=== PATIENT | male | born 1960 | race Caucasian/White ===

== ENCOUNTER 2020-04-10 09:31 | Outpatient (REF) | payer MEDICARE, MEDICAID, SELFPAY ==
--- NOTE | 2020-04-10 09:40 | XR_ITS ---
EXAMINATION: XR CHEST XR THORACIC SPINE CLINICAL INFORMATION: Abnormalities of breathing. Cutaneous abscess. Rule out osteomyelitis. COMPARISON: 11/08/2019 TECHNIQUE: PA and lateral views of the chest. 2 views, 3 images of the thoracic spine. FINDINGS: Chest: The lungs are hyperexpanded. Small left pleural effusion. Streaky basilar opacities favor atelectasis. No dense consolidation. No pneumothorax. The cardiomediastinal silhouette remains prominent, with a calcified aorta. Mild degenerative changes of the spine. Thoracic spine: No fracture or subluxation. Vertebral body height and alignment is maintained. Disc spaces are maintained with small multilevel endplate osteophytes. No osseous erosions are seen no endplate changes. IMPRESSION: 1. Small left pleural effusion. Basilar atelectasis. 2. Mild degenerative changes of the spine. No erosive changes are seen.
== END 2020-04-10 09:32 | disposition home or self-care (01) ==
LOC: HO.HMGCX 09:31
PROVIDERS: PCP Nurse Practitioner Family; Visit Provider Nurse Practitioner Family
DX: Z13.89 Encounter for screening for other disorder (principal)
CPT/HCPCS: 71046; 72070; 87071; 87205

== ENCOUNTER 2020-04-10 10:49 | Emergency (ER) | payer MEDICARE, MEDICAID, SELFPAY ==
[2020-04-10 12:30] VITALS: BP 180/102; PULSE 92; RESP 20; TEMP 36.8; O2SAT 96; BMI 39.0
--- NOTE | 2020-04-10 13:22 | ED_ITS ---
HPI - General Adult General Chief complaint: General Medical Stated complaint: SOB Time Seen by Provider: 04/10/20 13:22 Source: patient Mode of arrival: ambulatory Limitations: no limitations History of Present Illness HPI narrative: Mr. Esteban Galindo is a 60-year-old male with past medical history that is significant for hypertension, obstructive sleep apnea on CPAP at night, gout, depression and history of alcohol abuse with prior admissions here to this facility for alcohol intoxication/ withdrawal with history that is somewhat limited as he is relatively bad historian presenting today with constellation of symptoms from sister in urgent care. He reports that for the past month or so he has some upper respiratory symptoms of rhinorrhea and congestion that has led him to have a hard time breathing States he sometimes can not feel like he can not take a deep breath in and has had a productive cough. In addition to this he reports to me that he has a tender area on his lower back that he has had for month or so which he injured question during the fall he is intoxicated. States that the overall size of this indurated area on his lower back has decreased according to his however now is having more pain and purulent discharge. There is no associated fever. No travel. He has no known sick contacts. He does admit to daily beer intake and in fact had a few beers this morning to help with the pain in his lower back. He does not endorse any recent falls or injury. Related Data Home Medications Medication Instructions Recorded Confirmed allopurinol 100 mg tablet 100 mg PO DAILY 04/10/20 atenolol 50 mg tablet 50 mg PO DAILY 04/10/20 duloxetine 60 mg capsule,delayed 60 mg PO DAILY 04/10/20 release fluoxetine 40 mg capsule mg PO 04/10/20 lisinopril 5 mg tablet 5 mg PO DAILY 04/10/20 naproxen 500 mg tablet 500 mg PO BID 04/10/20 Previous Rx's Medication Instructions Recorded albuterol sulfate 2 puff INHALATION Q4-6H PRN #18 g 04/10/20 doxycycline monohydrate 100 mg PO BID 10 Days #20 cap 04/10/20 Allergies Allergy/AdvReac Type Severity Reaction Status Date / Time No Known Allergies Allergy Unverified 03/13/20 14:43 [No Known Allergies*] Review of Systems Review of Systems: Constitutional: No Weight loss, No Fever, + Chills, No Night Sweats, No Fatigue, No Malaise ENT/Mouth: No Hearing loss, No Ear Pain, + Nasal Congestion, No Sinus Pain, No Hoarseness, No sore throat, No Rhinorrhea, No Swallowing Difficulty Eyes: No Eye Pain, No Swelling, No Redness, No Foreign Body, No Discharge, No Vision Changes Cardiovascular: + Chest Pain,+ Dyspnea on Exertion, No Orthopnea, No Edema, No Palpitations Respiratory: sometimes Cough, No Sputum, No Wheezing, No Smoke Exposure, No Dys pnea Gastrointestinal: No Nausea, No Vomiting, No Diarrhea, No Constipation, No abdominal Pain, No Hematochezia, No Melena Genitourinary: no irregular bleeding, No Dysuria, No Urinary Frequency, No H ematuria, No Urinary Incontinence, No Urgency, No Flank Pain, No Urinary Flow Changes, No Hesitancy Musculoskeletal: No joint pain, No Myalgias, No Joint Swelling Skin: No Skin Lesions, + tender area to Lumbar spine Neuro: No Weakness, No Numbness, No Paresthesias, No Loss of Consciousness, No Dizziness, No Headache Psych: No Anxiety/Panic, No Depression, No SI/HI/AH/VH, No Social Issues, Heme/Lymph: No Bruising, No Bleeding,No Lymphadenopathy Endocrine: No Polyuria, No Polydipsia, No Temperature Intolerance [facility] Past Medical History Attestation statement: The following information was validated with the patient. Medical History (Updated 04/11/20 @ 00:01 by Stephanie Mart) Alcohol dependency Anxiety Arthritis Depression Gout HTN (hypertension) Seroma due to trauma Sleep apnea Social History Social History (Updated 04/10/20 @ 17:54 by Ross Lr MD) Packs Per Day: 1 Cigarettes Per Day: 20.0 Physical Exam Vital Signs: Vital Signs: Vital Signs Temp Pulse Resp BP Pulse Ox 04/10/20 12:30 98.3 F 92 20 180/102 H 96 Body Mass Index 39.0 Reviewed Const: Other: obese and shuffled appearing, older than stated age General: cooperative; No acute distress or intoxicated appearing Orientation/consciousness: patient oriented x3 HENMT: Head: Yes normal to inspection Ears: hearing grossly normal bilaterally Eyes: General: appearance normal, both eyes and all related structures Visual Montgomery: normal visual montgomery by confrontation Neck: Neck: Yes normal visual inspection and No tender Thyroid: Thyroid normal Chest: Chest palpation & inspection: normal inspection of the chest Resp: Effort & Inspection: normal respiratory effort Auscultation: clear to auscultation bilaterally and no wheezes Cardio: Jugular venous distension: no JVD Rhythm: regular rhythm Heart sounds: S1 normal heart sound present GI: Inspection: Yes normal to inspection Percussion: Yes normal to percussion Auscultation: normal bowel sounds : General: Yes no CVA tenderness Back/Spine/Pelvis: Back: no CVA tenderness Back/spine/pelvis image: 1. tender /indurated area refer to picture Skin: General skin exam: no rashes or lesions noted Neuro: General: patient oriented x3 Extrem: General: Yes normal to inspection Psych: Appearance: disheveled Mental Status: mental status grossly normal Speech and movement: Normal speech and movement present Affect: normal affect Attitude: cooperative Thought process: Normal thought process present Thought content: Normal thought content present Insight: Good insight present (Psych) Judgement: Good judgement present (Psych) Course Course Course Narrative: medical records reviewed patient had several ED visits for alcohol related stuff including alcohol withdrawal most recently in October where he was seen for alcohol withdrawal and subsequently Section 35. he was also seen here 03/15/2020 for ETOH/fall in time he had a small injury/indurated area to the lower /lumbar spine back where he had a CT of the abdomen pelvis with IV contrast which showed; 1. Reversal of previously anjum cribed fatty infiltrate of the liver. 2. Gallbladder wall polyp. 3. Trace left pleural effusion with lobulated pleural based nodule as described, left lower lobe. Adjacent reactive changes in the left lower lobe. 4. Subcutaneous low- attenuation mass in the lumbar back presumably a hematoma given the patient's history of trauma. will need labs , EKG patient was seen at the walk-in clinic had x-ray of chest and thoracic spine which showed small left pleural effusion. basilar atelectas is. And degenerative changes of the spine no erosive changes seen on the plain film. will need advanced imaging with IV contrast and given his prior hospital visits concern does rest for COVID-19 will do a COVID-19 test. at this time he is hemodynamically stable. No signs or symptoms of alcohol withdrawal. Reevaluation(s) Reevaluation #1: Labs show significant derangement. Elevated BNP. CT findings concerning for COVID-19 versus atelectasis versus infectious process. Case discussed with hospitalist Dr. Canchola at bedside to evaluate patient for admission. Reevaluation #2: Patient now declining admission. States he feels fine and wants to go home to his son who has autism and feels that would have a hard time if he is admitted. Does not want to stay in the hospital. Given the significant findings on labs and imaging I sat down with him for about 20 minutes to discuss with him the findings and the need for further investigation into this and the importance /seriousness of his findings and possibility of worsening deterioration if he goes home. He verbalized understanding. He still wants to be discharge on AMA. He states that he will return if he feels any worse or concerns. AMA was reviewed with him in detail he verbalized understanding. Consultations Consultation #1: Evaluated by general surgery Dr. Queen at bedside for above indurated area and CT findings consistent with previous. Refer to general surgery note; seroma drained at bedside. This scab on top is from a abrasion that occurred from a fall. Otherwise no acute infection. Medical Decision Making Lab Data Result diagrams: 04/10/20 16:53 04/10/20 13:44 Labs: Lab Results 04/10/20 04/10/20 04/10/20 Range/Units 13:44 13:44 13:44 WBC (4.8-10.8) X10*3/uL RBC (4.60-5.80) X10*6/uL Hgb (14.0-18.0) g/dl Hct (42-52) % MCV (80-98) fL MCH (27.0-33.0) pg MCHC (31.0-36.0) g/dl RDW (11.0-16.0) % Plt Count (160-400) X10*3/uL MPV (9.4-12.4) fL Immature Gran % (Auto) (0.0-0.4) % Neut % (Auto) (45-73) % Lymph % (Auto) (20-40) % [place] % (Auto) (2-11) % Eos % (Auto) (0-4) % Baso % (Auto) (0-2) % Lymph # (Auto) (1.2-4.9) X10*3/uL [place] # (Auto) (0.1-1.2) X10*3/uL Eos # (Auto) (0.0-0.4) X10*3/uL Baso # (Auto) (0.0-0.2) X10*3/uL Abs Immat Gran (auto) (0.00-0.03) X10*3/uL Absolute Neuts (auto) (2.0-8.3) X10*3/uL Absolute Nucleated RBC (0.0-0.012) X10*3/uL Nucleated RBC % (auto) (0.0-0.2) /100WBC Sodium 136 (135-145) mmol/L Potassium 4.2 (3.3-5.1) mmol/l Chloride 96 (96-108) mmol/L Carbon Dioxide 35 H (22-29) mmol/L Anion Gap 9 L (12-20) BUN 12 (9-16) mg/dL Creatinine 0.85 (0.5-1.4) mg/dL Estim Creat Clear Calc 134.5 Estimated GFR > 60 Random Glucose 103 (60-115) mg/dL Lactic Acid 1.0 (0.5-2.0) mmol/L Calcium 8.7 (8.4-10.2) mg/dL Ferritin (20-250) ng/mL Total Bilirubin 1.1 H (0.0-1.0) mg/dL AST 19 (5-37) U/L ALT 7 (0-40) U/L Alkaline Phosphatase 107 (39-117) U/L Lactate Dehydrogenase (118-273) U/L Troponin I High Sens 14.9 (<3.5-35.0) ng/L C-Reactive Protein (< or = 0.50) mg/dL B-Natriuretic Peptide (<100) pg/mL Total Protein 6.8 (6.5-8.0) g/dL Albumin 3.4 L (3.5-5.0) g/dL Procalcitonin ng/mL Ethyl Alcohol mg/dL Coronavirus (PCR) (Negative) 04/10/20 04/10/20 04/10/20 Range/Units 13:44 13:44 16:53 WBC 9.5 (4.8-10.8) X10*3/uL RBC 2.73 L (4.60-5.80) X10*6/uL Hgb 10.4 L (14.0-18.0) g/dl Hct 29.9 L (42-52) % MCV 109.5 H (80-98) fL MCH 38.1 H (27.0-33.0) pg MCHC 34.8 (31.0-36.0) g/dl RDW 19.1 H (11.0-16.0) % Plt Count 206 (160-400) X10*3/uL MPV 10.3 (9.4-12.4) fL Immature Gran % (Auto) 0.4 (0.0-0.4) % Neut % (Auto) 64.0 (45-73) % Lymph % (Auto) 25.5 (20-40) % [place] % (Auto) 7.7 (2-11) % Eos % (Auto) 1.9 (0-4) % Baso % (Auto) 0.5 (0-2) % Lymph # (Auto) 2.4 (1.2-4.9) X10*3/uL [place] # (Auto) 0.7 (0.1-1.2) X10*3/uL Eos # (Auto) 0.2 (0.0-0.4) X10*3/uL Baso # (Auto) 0.1 (0.0-0.2) X10*3/uL Abs Immat Gran (auto) 0.04 H (0.00-0.03) X10*3/uL Absolute Neuts (auto) 6.1 (2.0-8.3) X10*3/uL Absolute Nucleated RBC 0.000 (0.0-0.012) X10*3/uL Nucleated RBC % (auto) 0.0 (0.0-0.2) /100WBC Sodium (135-145) mmol/L Potassium (3.3-5.1) mmol/l Chloride (96-108) mmol/L Carbon Dioxide (22-29) mmol/L Anion Gap (12-20) BUN (9-16) mg/dL Creatinine (0.5-1.4) mg/dL Estim Creat Clear Calc Estimated GFR Random Glucose (60-115) mg/dL Lactic Acid (0.5-2.0) mmol/L Calcium (8.4-10.2) mg/dL Ferritin (20-250) ng/mL Total Bilirubin (0.0-1.0) mg/dL AST (5-37) U/L ALT (0-40) U/L Alkaline Phosphatase (39-117) U/L Lactate Dehydrogenase (118-273) U/L Troponin I High Sens (<3.5-35.0) ng/L C-Reactive Protein 1.83 H (< or = 0.50) mg/dL B-Natriuretic Peptide 3062 H (<100) pg/mL Total Protein (6.5-8.0) g/dL Albumin (3.5-5.0) g/dL Procalcitonin ng/mL Ethyl Alcohol mg/dL Coronavirus (PCR) (Negative) 04/10/20 04/10/20 04/10/20 Range/Units 17:00 17:01 Unknown WBC (4.8-10.8) X10*3/uL RBC (4.60-5.80) X10*6/uL Hgb (14.0-18.0) g/dl Hct (42-52) % MCV (80-98) fL MCH (27.0-33.0) pg MCHC (31.0-36.0) g/dl RDW (11.0-16.0) % Plt Count (160-400) X10*3/uL MPV (9.4-12.4) fL Immature Gran % (Auto) (0.0-0.4) % Neut % (Auto) (45-73) % Lymph % (Auto) (20-40) % [place] % (Auto) (2-11) % Eos % (Auto) (0-4) % Baso % (Auto) (0-2) % Lymph # (Auto) (1.2-4.9) X10*3/uL [place] # (Auto) (0.1-1.2) X10*3/uL Eos # (Auto) (0.0-0.4) X10*3/uL Baso # (Auto) (0.0-0.2) X10*3/uL Abs Immat Gran (auto) (0.00-0.03) X10*3/uL Absolute Neuts (auto) (2.0-8.3) X10*3/uL Absolute Nucleated RBC (0.0-0.012) X10*3/uL Nucleated RBC % (auto) (0.0-0.2) /100WBC Sodium (135-145) mmol/L Potassium (3.3-5.1) mmol/l Chloride (96-108) mmol/L Carbon Dioxide (22-29) mmol/L Anion Gap (12-20) BUN (9-16) mg/dL Creatinine (0.5-1.4) mg/dL Estim Creat Clear Calc Estimated GFR Random Glucose (60-115) mg/dL Lactic Acid (0.5-2.0) mmol/L Calcium (8.4-10.2) mg/dL Ferritin 272 H (20-250) ng/mL Total Bilirubin (0.0-1.0) mg/dL AST (5-37) U/L ALT (0-40) U/L Alkaline Phosphatase (39-117) U/L Lactate Dehydrogenase (118-273) U/L Troponin I High Sens (<3.5-35.0) ng/L C-Reactive Protein (< or = 0.50) mg/dL B-Natriuretic Peptide (<100) pg/mL Total Protein (6.5-8.0) g/dL Albumin (3.5-5.0) g/dL Procalcitonin ng/mL Ethyl Alcohol < 10 mg/dL Coronavirus (PCR) NEGATIVE (Negative) 04/10/20 04/10/20 Range/Units Unknown Unknown WBC (4.8-10.8) X10*3/uL RBC (4.60-5.80) X10*6/uL Hgb (14.0-18.0) g/dl Hct (42-52) % MCV (80-98) fL MCH (27.0-33.0) pg MCHC (31.0-36.0) g/dl RDW (11.0-16.0) % Plt Count (160-400) X10*3/uL MPV (9.4-12.4) fL Immature Gran % (Auto) (0.0-0.4) % Neut % (Auto) (45-73) % Lymph % (Auto) (20-40) % [place] % (Auto) (2-11) % Eos % (Auto) (0-4) % Baso % (Auto) (0-2) % Lymph # (Auto) (1.2-4.9) X10*3/uL [place] # (Auto) (0.1-1.2) X10*3/uL Eos # (Auto) (0.0-0.4) X10*3/uL Baso # (Auto) (0.0-0.2) X10*3/uL Abs Immat Gran (auto) (0.00-0.03) X10*3/uL Absolute Neuts (auto) (2.0-8.3) X10*3/uL Absolute Nucleated RBC (0.0-0.012) X10*3/uL Nucleated RBC % (auto) (0.0-0.2) /100WBC Sodium (135-145) mmol/L Potassium (3.3-5.1) mmol/l Chloride (96-108) mmol/L Carbon Dioxide (22-29) mmol/L Anion Gap (12-20) BUN (9-16) mg/dL Creatinine (0.5-1.4) mg/dL Estim Creat Clear Calc Estimated GFR Random Glucose (60-115) mg/dL Lactic Acid (0.5-2.0) mmol/L Calcium (8.4-10.2) mg/dL Ferritin (20-250) ng/mL Total Bilirubin (0.0-1.0) mg/dL AST (5-37) U/L ALT (0-40) U/L Alkaline Phosphatase (39-117) U/L Lactate Dehydrogenase 439 H (118-273) U/L Troponin I High Sens (<3.5-35.0) ng/L C-Reactive Protein (< or = 0.50) mg/dL B-Natriuretic Peptide (<100) pg/mL Total Protein (6.5-8.0) g/dL Albumin (3.5-5.0) g/dL Procalcitonin 0.04 ng/mL Ethyl Alcohol mg/dL Coronavirus (PCR) (Negative) Imaging Data CT scan - head: My impression: Esteban Galindo 60 M [address] [address] [address] Scan Report Signed Patient: Esteban Galindo FMR#: [id number] : 1Acct:[id number] Age/Sex: 60 / MADM Date: 04/10/20 Loc: HO.ED Attending Dr: Ordering Physician: Lex Lacy NP Date of Service: 04/10/20 Procedure(s): CT lumbar spine w con Accession Number(s): [id number] cc: Lex Lacy NP~ EXAMINATION: CT LUMBAR SPINE CLINICAL INFORMATION: Lumbar spine pain. COMPARISON: 03/15/2020 TECHNIQUE: Multidetector volumetric imaging of the lumbar spine performed after administration of 85 mL of Omnipaque 350 IV contrast. Coronal and sagittal reformatted images are obtained and reviewed. This CT examination was performed using dose optimization techniques as appropriate, variously including the following: *Automated exposure control *Adjustment of mA and/or kV according to patient size (this includes techniques or standardized protocols for targeted exams where dose is matched to indication/reason for exam; i.e. extremities or head) *Use of iterative reconstruction technique DLP: 846 mGy-cm FINDINGS: There is no fracture or subluxation. Vertebral body height and alignment is maintained. Disc space narrowing of L1-L2 with vacuum disc phenomenon. Multilevel endplate osteophytes are present. There is facet arthropathy throughout which is greatest at L4-L5. Small Schmorl's nodes are present at multiple level endplates. The sacroiliac joints are symmetric. The visualized portion of the sacrum is intact. The paraspinal musculature is symmetric. Aortic calcifications are noted. Fat attenuation lesion at the upper pole of the right kidney likely represents an angiomyolipoma. No retroperitoneal lymphadenopathy. There is a superficial collection in the subcutaneous tissues of the back to the left of midline. This collection measures 8.2 x 3.1 cm in transaxial dimension by 6.7 cm CC. This measures simple fluid attenuation. Mild inflammation in the surrounding fat. Mild overlying skin thickening. This collection was present on the study from 03/15/2020, appearing similar in size. IMPRESSION: 1. Fluid collection in the subcutaneous tissues to the left of midline in the back. This has similar size and appearance to the prior study. 2. Mild multilevel degenerative changes of the lumbar spine. Dictated By:LAKEISHA RESENDIZ MD Signed By:<Electronically signed by LAKEISHA RESENDIZ MD in OV>04/10/20 1613 DD/ 1332 TD/TT: Automatic Pattern Edger: TESSIE Radiologist's impression: [facility] [address] [place] [address] CT Scan Report Signed Patient: Esteban Galindo FMR#: [id number] : 1960cct:[id number] Age/Sex: 60 / MADM Date: 04/10/20 Loc: HO.ED Attending Dr: Ordering Physician: Lex Lacy NP Date of Service: 04/10/20 Procedure(s): CT chest wo con Accession Number(s): [id number] cc: Lex Lacy ENGRAVER TENDER~ EXAMINATION: CT CHEST WITHOUT CONTRAST CLINICAL INFORMATION: Shortness of breath COMPARISON: 04/04/2019 TECHNIQUE: Multidetector volumetric CT imaging of the chest was done. Axial MIP volume rendering provided. Sagittal and coronal reformatted images were obtained. This CT examination was performed using dose optimization techniques as appropriate, variously including the following: *Automated exposure control *Adjustment of mA and/or kV according to patient size (this includes techniques or standardized protocols for targeted exams where dose is matched to indication/reason for exam; i.e. extremities or head) *Use of iterative reconstruction technique DLP: 405 mGy-cm FINDINGS: LUNGS: The central airways are patent. Mild bronchial wall thickening. Small bilateral pleural effusions. Moderate paraseptal emphysema which is greatest at the lung apices. Minimal groundglass opacity dependently in the right upper lobe along the major fissure. Additional dependent groundglass opacities and linear markings at both lung bases. Fluid tracks along the left major fissure. Radiographic groundglass opacity seen at the right lung apex measuring 1.5 cm. This is new from prior, with multiple prior groundglass opacities now resolved. No solid pulmonary nodule. No pneumothorax. MEDIASTINUM: Borderline enlarged heart size. Coronary artery calcifications. No pericardial effusion. No mediastinal lymphadenopathy. The thyroid gland is unremarkable. AXILLA: No lymphadenopathy. UPPER ABDOMEN: The liver appears enlarged. No acute inflammatory changes of the upper abdomen. OSSEOUS STRUCTURES: No acute or suspicious osseous abnormality. Mild degenerative changes of the spine. IMPRESSION: 1. Small bilateral pleural effusions with associated atelectasis. Small amount of fluid tracks along the left major fissure. Additional groundglass opacity dependently in the right upper lobe likely represents atelectasis, although infectious/inflammatory process is not fully excluded. 2. Moderate paraseptal emphysema. 3. Focal groundglass opacity at the right lung apex favors infectious or inflammatory process. This is new from the prior study from 2019, while previous groundglass opacities have resolved. Dictated By:LAKEISHA RESENDIZ MD Signed By:<Electronically signed by LAKEISHA RESENDIZ MD in OV>04/10/20 1618 DD/ 1333 TD/TT: Automatic Pattern Edger: TESSIE Discharge Plan Discharge Clinical Impression: Atypical pneumonia, Difficulty breathing, Seroma, Elevated brain natriuretic peptide (BNP) level Patient Disposition: Left Against Medical Advice Instructions: Community Acquired Pneumonia (ED), Seroma (DC), Shortness of Breath (ED) Prescriptions: New doxycycline monohydrate 100 mg capsule 100 mg PO BID 10 Days Qty: 20 RF: 0 albuterol sulfate 90 mcg/actuation HFA aerosol inhaler 2 puff inhalation Q4-6H PRN (Reason: shortness of breath or wheezing) Qty: 18 RF: 0 No Action duloxetine 60 mg capsule,delayed release(DR/EC) 60 mg PO DAILY RF: 0 lisinopril 5 mg tablet 5 mg PO DAILY RF: 0 fluoxetine 40 mg capsule PO RF: 0 naproxen 500 mg tablet 500 mg PO BID RF: 0 atenolol 50 mg tablet 50 mg PO DAILY RF: 0 allopurinol 100 mg tablet 100 mg PO DAILY RF: 0 Referrals: Ortiz Deluca, FAMILY MEDICINE PHYSICIAN-BC [Primary Care Provider] - 1 day Stand Alone Forms: Against Medical Advice Interventions: ED Discharge Assessment Last Done: 04/10/20 19:13 Discharge Date/Time: 04/10/20 19:14
--- NOTE | 2020-04-10 13:32 | CT_ITS ---
EXAMINATION: CT LUMBAR SPINE CLINICAL INFORMATION: Lumbar spine pain. COMPARISON: 03/15/2020 TECHNIQUE: Multidetector volumetric imaging of the lumbar spine performed after administration of 85 mL of Omnipaque 350 IV contrast. Coronal and sagittal reformatted images are obtained and reviewed. This CT examination was performed using dose optimization techniques as appropriate, variously including the following: *Automated exposure control *Adjustment of mA and/or kV according to patient size (this includes techniques or standardized protocols for targeted exams where dose is matched to indication/reason for exam; i.e. extremities or head) *Use of iterative reconstruction technique DLP: 846 mGy-cm FINDINGS: There is no fracture or subluxation. Vertebral body height and alignment is maintained. Disc space narrowing of L1-L2 with vacuum disc phenomenon. Multilevel endplate osteophytes are present. There is facet arthropathy throughout which is greatest at L4-L5. Small Schmorl's nodes are present at multiple level endplates. The sacroiliac joints are symmetric. The visualized portion of the sacrum is intact. The paraspinal musculature is symmetric. Aortic calcifications are noted. Fat attenuation lesion at the upper pole of the right kidney likely represents an angiomyolipoma. No retroperitoneal lymphadenopathy. There is a superficial collection in the subcutaneous tissues of the back to the left of midline. This collection measures 8.2 x 3.1 cm in transaxial dimension by 6.7 cm CC. This measures simple fluid attenuation. Mild inflammation in the surrounding fat. Mild overlying skin thickening. This collection was present on the study from 03/15/2020, appearing similar in size. IMPRESSION: 1. Fluid collection in the subcutaneous tissues to the left of midline in the back. This has similar size and appearance to the prior study. 2. Mild multilevel degenerative changes of the lumbar spine.
--- NOTE | 2020-04-10 13:33 | CT_ITS ---
EXAMINATION: CT CHEST WITHOUT CONTRAST CLINICAL INFORMATION: Shortness of breath COMPARISON: 04/04/2019 TECHNIQUE: Multidetector volumetric CT imaging of the chest was done. Axial MIP volume rendering provided. Sagittal and coronal reformatted images were obtained. This CT examination was performed using dose optimization techniques as appropriate, variously including the following: *Automated exposure control *Adjustment of mA and/or kV according to patient size (this includes techniques or standardized protocols for targeted exams where dose is matched to indication/reason for exam; i.e. extremities or head) *Use of iterative reconstruction technique DLP: 405 mGy-cm FINDINGS: LUNGS: The central airways are patent. Mild bronchial wall thickening. Small bilateral pleural effusions. Moderate paraseptal emphysema which is greatest at the lung apices. Minimal groundglass opacity dependently in the right upper lobe along the major fissure. Additional dependent groundglass opacities and linear markings at both lung bases. Fluid tracks along the left major fissure. Radiographic groundglass opacity seen at the right lung apex measuring 1.5 cm. This is new from prior, with multiple prior groundglass opacities now resolved. No solid pulmonary nodule. No pneumothorax. MEDIASTINUM: Borderline enlarged heart size. Coronary artery calcifications. No pericardial effusion. No mediastinal lymphadenopathy. The thyroid gland is unremarkable. AXILLA: No lymphadenopathy. UPPER ABDOMEN: The liver appears enlarged. No acute inflammatory changes of the upper abdomen. OSSEOUS STRUCTURES: No acute or suspicious osseous abnormality. Mild degenerative changes of the spine. IMPRESSION: 1. Small bilateral pleural effusions with associated atelectasis. Small amount of fluid tracks along the left major fissure. Additional groundglass opacity dependently in the right upper lobe likely represents atelectasis, although infectious/inflammatory process is not fully excluded. 2. Moderate paraseptal emphysema. 3. Focal groundglass opacity at the right lung apex favors infectious or inflammatory process. This is new from the prior study from 2019, while previous groundglass opacities have resolved.
[2020-04-10] MEDS: 0.9 % Sodium Chloride 1,000 ML 999 ML IVCONT (14:01)
[2020-04-10 14:22] LABS: C Reactive Protein 1.83 mg/dL (< or = 0.50)
[2020-04-10 14:27] LABS: Alanine Aminotransferase 7 U/L (0-40); Albumin Level 3.4 g/dL (3.5-5.0); Alkaline Phosphatase 107 U/L (39-117); Anion Gap 9 (12-20); Aspartate Amino Transferase 19 U/L (5-37); Bilirubin Total 1.1 mg/dL (0.0-1.0); Blood Urea Nitrogen 12 mg/dL (9-16); Calcium 8.7 mg/dL (8.4-10.2); Carbon Dioxide 35 mmol/L (22-29); Chloride 96 mmol/L (96-108); Creatinine Clr Calc Pharmacy 134.5; Estimated Glomerular Filt Rate > 60; Glucose Random 103 mg/dL (60-115); Potassium 4.2 mmol/l (3.3-5.1); Sodium 136 mmol/L (135-145); Total Protein 6.8 g/dL (6.5-8.0)
[2020-04-10 14:33] LABS: B Type Natriuretic Peptide 3062 pg/mL (<100); Troponin-I High Sensitivity 14.9 ng/L (<3.5-35.0)
[2020-04-10] MEDS: iohexoL 350 MG/ML 100 ML INFUS..BTL IV (16:04)
--- NOTE | 2020-04-10 16:40 | PC.NURSE ---
pt ambulated to and from bathroom w steady gait on 2l nc using assistive device
[2020-04-10 17:01] LABS: MANUAL DIFF FLAG NO
[2020-04-10 17:02] LABS: Basophils Absolute Auto 0.1 X10*3/uL (0.0-0.2); Basophils Percent Auto 0.5 % (0-2); Eosinophils Absolute Auto 0.2 X10*3/uL (0.0-0.4); Eosinophils Percent Auto 1.9 % (0-4); Hematocrit 29.9 % (42-52); Hemoglobin 10.4 g/dl (14.0-18.0); Imm Gran Abs Auto 0.04 X10*3/uL (0.00-0.03); Imm Gran Pct Auto 0.4 % (0.0-0.4); Lymphocytes Absolute Auto 2.4 X10*3/uL (1.2-4.9); Lymphocytes Percent Auto 25.5 % (20-40); Mean Corpuscular HGB Conc 34.8 g/dl (31.0-36.0); Mean Corpuscular Hemoglobin 38.1 pg (27.0-33.0); Mean Corpuscular Volume 109.5 fL (80-98); Mean Platelet Volume 10.3 fL (9.4-12.4); Monocytes Absolute Auto 0.7 X10*3/uL (0.1-1.2); Monocytes Percent Auto 7.7 % (2-11); Neutrophils Absolute Auto 6.1 X10*3/uL (2.0-8.3); Platelet Count 206 X10*3/uL (160-400); Red Blood Count 2.73 X10*6/uL (4.60-5.80); Red Cell Distribution Width 19.1 % (11.0-16.0); White Blood Count 9.5 X10*3/uL (4.8-10.8)
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
[2020-04-10 17:47] LABS: Ethanol < 10 mg/dL
[2020-04-10 18:06] LABS: SARS COV2 PCR INHOUSE NEGATIVE (Negative)
[2020-04-10 18:25] LABS: Lactate Dehydrogenase 439 U/L (118-273)
[2020-04-10 18:37] LABS: Ferritin 272 ng/mL (20-250)
[2020-04-10 18:41] LABS: Procalcitonin 0.04 ng/mL
== END 2020-04-10 19:14 | disposition left against medical advice (07) ==
PROVIDERS: Nurse Practitioner Primary Care; Emergency Provider Emergency Medicine; PCP Nurse Practitioner Family
DX: J18.9 Pneumonia, unspecified organism (principal); J90 Pleural effusion, not elsewhere classified; J98.11 Atelectasis; Z20.828 Contact with and (suspected) exposure to other viral communicable diseases; T79.2XXA Traumatic secondary and recurrent hemorrhage and seroma, initial encounter; X58.XXXA Exposure to other specified factors, initial encounter; I11.9 Hypertensive heart disease without heart failure; K82.4 Cholesterolosis of gallbladder; R79.89 Other specified abnormal findings of blood chemistry; S30.810A Abrasion of lower back and pelvis, initial encounter; W19.XXXA Unspecified fall, initial encounter; F10.20 Alcohol dependence, uncomplicated; G47.33 Obstructive sleep apnea (adult) (pediatric); Y93.9 Activity, unspecified; Y92.9 Unspecified place or not applicable; Y99.9 Unspecified external cause status
CPT/HCPCS: 10021; 36415; 71046; 71250; 72070; 72132; 80053; 80320; 82728; 83605; 83615; 83880; 84145; 84484; 85025; 86140; 87040; 87071; 87077; 87147; 87186; 87205; 87635; 96361; 96365; 99283; 99284

== ENCOUNTER 2020-05-29 17:06 | Inpatient (IN) | payer MEDICARE, MEDICAID, SELFPAY ==
[2020-05-29 17:10] VITALS: BP 170/92; PULSE 110; RESP 20; TEMP 37; O2SAT 100; BMI 49.5
[2020-05-29 20:42] VITALS: BP 167/100; PULSE 121; RESP 16; O2SAT 96
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
[2020-05-29 21:41] LABS: MANUAL DIFF FLAG NO
[2020-05-29 21:42] LABS: Basophils Absolute Auto 0.1 X10*3/uL (0.0-0.2); Basophils Percent Auto 0.8 % (0-2); Eosinophils Absolute Auto 0.1 X10*3/uL (0.0-0.4); Eosinophils Percent Auto 0.6 % (0-4); Hematocrit 41.8 % (42-52); Hemoglobin 13.9 g/dl (14.0-18.0); Imm Gran Abs Auto 0.04 X10*3/uL (0.00-0.03); Imm Gran Pct Auto 0.4 % (0.0-0.4); Lymphocytes Absolute Auto 2.2 X10*3/uL (1.2-4.9); Lymphocytes Percent Auto 23.5 % (20-40); Mean Corpuscular HGB Conc 33.3 g/dl (31.0-36.0); Mean Corpuscular Hemoglobin 36.4 pg (27.0-33.0); Mean Corpuscular Volume 109.4 fL (80-98); Mean Platelet Volume 11.2 fL (9.4-12.4); Monocytes Absolute Auto 0.9 X10*3/uL (0.1-1.2); Monocytes Percent Auto 9.3 % (2-11); Neutrophils Absolute Auto 6.1 X10*3/uL (2.0-8.3); Neutrophils Percent Auto 65.4 % (45-73); Platelet Count 154 X10*3/uL (160-400); Red Blood Count 3.82 X10*6/uL (4.60-5.80); Red Cell Distribution Width 12.6 % (11.0-16.0); White Blood Count 9.3 X10*3/uL (4.8-10.8)
[2020-05-29 21:57] LABS: COVID-19 Test Negative (Negative); IDNOW Serial# 9DD0AD1C
[2020-05-29 22:01] LABS: Ethanol < 10 mg/dL
[2020-05-29 22:03] LABS: Alanine Aminotransferase 11 U/L (0-40); Albumin Level 3.4 g/dL (3.5-5.0); Alkaline Phosphatase 115 U/L (39-117); Anion Gap 14 (12-20); Aspartate Amino Transferase 29 U/L (5-37); Bilirubin Total 1.2 mg/dL (0.0-1.0); Blood Urea Nitrogen 12 mg/dL (9-16); Calcium 8.6 mg/dL (8.4-10.2); Carbon Dioxide 36 mmol/L (22-29); Chloride 94 mmol/L (96-108); Creatinine Clr Calc Pharmacy 139.4; Estimated Glomerular Filt Rate > 60; Glucose Random 119 mg/dL (60-115); Potassium 4.1 mmol/l (3.3-5.1); Sodium 140 mmol/L (135-145); Total Protein 7.2 g/dL (6.5-8.0)
[2020-05-29] MEDS: LORazepam 1 MG TABLET 2 MG PO (22:05)
[2020-05-29 22:28] LABS: Vitamin B12 248 pg/mL (200-900)
[2020-05-29 22:32] LABS: Amphetamine Screen Urine Not Detected (Not Detect); Barbiturates, Urine Not Detected (Not Detect); Benzodiazepines Screen Urine Not Detected (Not Detect); Cannabinoid Screen Urine Not Detected (Not Detect); Cocaine Screen Urine Not Detected (Not Detect); Opiate Screen Urine Not Detected (Not Detect); Phencyclidine Screen Urine Not Detected (Not Detect)
[2020-05-29 22:54] VITALS: BP 189/125; PULSE 129; RESP 16; TEMP 36.8; O2SAT 95
[2020-05-29 23:25] VITALS: BMI 46.6
[2020-05-29] MEDS: PHENobarbitaL sodium 130 MG/ML VIAL 375 MG IM (23:42)
[2020-05-30] VITALS (12 sets, daily range): BP systolic 127–192; BP diastolic 84–142; PULSE 98–142; RESP 12–20; TEMP 36.6–37; O2SAT 92–98; BMI 46.6
--- NOTE | 2020-05-30 00:36 | P.HPHOSP_ITS ---
History of Present Illness Date of Service: 05/30/20 Chief Complaint: Alcohol withdrawal 60 y/o male with PMHx of depression, alcohol abuse, gout, HTN, lung cancer, sleep apnea who presented from home due to alcohol intoxication. Patient is a very poor historian. Reports that since tuesday this week has been feeling malaise, unsteady with tremors of the hands for what decided to come to the ED for further evaluation. Patient has a significant hx of alcohol abuse, states that has been drinking heavily every single day, approximately 20 shots of vodka mixed with whiskey and sometimes beer. Last alcoholic drink reported that was on tuesday of current week (2 days ago). Since then has been feeling steady and unable to walk properly as well as tremors in both upper extremities. Patient reports also that has been hearing voices and seeing things that are not there but this is something that has been having for a long time now and not something recent. Last time patient was admitted in our hospital for similar symptoms was earlier this year where also got evaluated by psych during the same time for the tactile, auditory and visual hallucinations and was recommends section 35. On presentation to the ED patient is noted to be tachycardic, hypertensive, skin flushed, with UE tremors, unsteady. 2 Doses of ativan given per Ed with partial relieve on patients symptoms which was followed by phenobarbital protocol. No episodes of fever documented. Utox negative. Decision for admission given. Patient seen and examined at the bedside, laying down in bed anxious. ROS as above otherwise negative. Physical exam positive for: AAOX3 with episodes of hallucinations but coherent when providing medical hx. Poor historian. Flushed sking, tremors in UE, CIWA score on presentation of 13 but now is 25. Past Medical History: Depression, alcohol abuse, gout, hypertension, sleep apnea on CPAP at night Review of Systems Constitutional: Constitutional: Reports as per HPI [facility] Medical History Alcohol dependency Anxiety Arthritis Depression Gout HTN (hypertension) Seroma due to trauma Sleep apnea Functional capacity: independent ambulation Social History Packs Per Day: 1 Cigarettes Per Day: 20.0 Advance Directives: No Advance Directives Information Provided: No Meds Allergies Allergy/AdvReac Type Severity Reaction Status Date / Time No Known Allergies Allergy Unverified 03/13/20 14:43 [No Known Allergies*] Home Medications Medication Instructions Recorded Confirmed Type allopurinol 100 mg tablet 100 mg PO DAILY 04/10/20 History duloxetine 60 mg capsule,delayed 60 mg PO DAILY 04/10/20 History release fluoxetine 40 mg capsule mg PO 04/10/20 History lisinopril 5 mg tablet 5 mg PO DAILY 04/10/20 History Physical Exam Vital Signs and Narrative: Vital Signs: Last Vital Signs Temp 98.3 F 05/29/20 22:54 Pulse 129 H 05/29/20 22:54 Resp 16 05/29/20 22:54 BP 189/125 H 05/29/20 22:54 Pulse Ox 95 05/29/20 22:54 Body Mass Index 46.6 Const: General: cooperative, healthy appearing, anxious and other HENMT: Head: Yes normal to inspection Eyes: General: appearance normal, both eyes and all related structures Neck: Yes normal visual inspection Chest: Chest palpation & inspection: normal inspection of the chest Resp: Effort & Inspection: normal respiratory effort Cardio: Jugular venous distension: no JVD Rate: tachycardic Rhythm: regular rhythm Heart sounds: S1 normal heart sound present and S2 normal heart sound present GI: Inspection: Yes normal to inspection Skin: General skin exam: other (flushed skin ) Neuro: General: other (UE tremors) Extrem: General: Yes normal to inspection Results Labs CBC and Chem 7: 05/29/20 21:35 05/29/20 21:35 Labs: Laboratory Results - last 24 hr 05/29/20 05/29/20 05/29/20 21:35 21:35 21:35 MCV 109.4 H MCH 36.4 H MCHC 33.3 RDW 12.6 Plt Count 154 L D MPV 11.2 Immature Gran % (Auto) 0.4 Neut % (Auto) 65.4 Lymph % (Auto) 23.5 [place] % (Auto) 9.3 Eos % (Auto) 0.6 Baso % (Auto) 0.8 Lymph # (Auto) 2.2 [place] # (Auto) 0.9 Eos # (Auto) 0.1 Baso # (Auto) 0.1 Abs Immat Gran (auto) 0.04 H Absolute Neuts (auto) 6.1 Absolute Nucleated RBC 0.000 Nucleated RBC % (auto) 0.0 Anion Gap 14 Estim Creat Clear Calc 139.4 Estimated GFR > 60 Random Glucose 119 H Calcium 8.6 Total Bilirubin 1.2 H AST 29 D ALT 11 Alkaline Phosphatase 115 Total Protein 7.2 Albumin 3.4 L Vitamin B12 248 Urine Opiates Screen Ur Barbiturates Screen Ur Phencyclidine Scrn Ur Amphetamines Screen U Benzodiazepines Scrn Urine Cocaine Screen U Marijuana (THC) Screen Ethyl Alcohol COVID-19 (LINDEN) COVID-19 [employer] Com 05/29/20 05/29/20 05/29/20 21:35 21:35 22:06 MCV MCH MCHC RDW Plt Count MPV Immature Gran % (Auto) Neut % (Auto) Lymph % (Auto) [place] % (Auto) Eos % (Auto) Baso % (Auto) Lymph # (Auto) [place] # (Auto) Eos # (Auto) Baso # (Auto) Abs Immat Gran (auto) Absolute Neuts (auto) Absolute Nucleated RBC Nucleated RBC % (auto) Anion Gap Estim Creat Clear Calc Estimated GFR Random Glucose Calcium Total Bilirubin AST ALT Alkaline Phosphatase Total Protein Albumin Vitamin B12 Urine Opiates Screen Not Detected Ur Barbiturates Screen Not Detected Ur Phencyclidine Scrn Not Detected Ur Amphetamines Screen Not Detected U Benzodiazepines Scrn Not Detected Urine Cocaine Screen Not Detected U Marijuana (THC) Screen Not Detected Ethyl Alcohol < 10 COVID-19 (LINDEN) Negative COVID-19 Clin Locationary See Note Assessment and Plan (1) Alcohol withdrawal syndrome: Status: Acute Phenobarbital protocol Fall 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
[2020-05-30] MEDS: 0.9 % Sodium Chloride 1,000 ML 999 ML IVCONT (00:50)
[2020-05-30] MEDS: Metoprolol Tartrate 5 MG/5 ML VIAL IVPUSH ×2 (00:50→04:09)
[2020-05-30 02:27] LABS: INTERNATIONAL NORM RATIO 1.2 (0.9-1.1); Prothrombin Time 14.3 SEC (10.8-13.0)
[2020-05-30 02:29] LABS: Partial Thromboplastin Time 32.8 SEC (24.1-38.0)
[2020-05-30] MEDS: Heparin Sodium,Porcine 5,000 UNIT/ML VIAL 5000 UNIT SUBCUT ×3 (02:47→16:37)
[2020-05-30] MEDS: PHENobarbitaL sodium 65 MG/ML VIAL 280 MG IM ×2 (02:47→05:46)
--- NOTE | 2020-05-30 05:05 | ECG_ITS ---
Test Reason : Rapid afib Blood Pressure : / mmHG Vent. Rate : 130 BPM Atrial Rate : 138 BPM P-R Int : 000 ms QRS Dur : 092 ms QT Int : 312 ms P-R-T Axes : 000 089 017 degrees QTc Int : 459 ms Atrial fibrillation with rapid ventricular response Abnormal ECG When compared to the previous EKG of 15 mar 2020, rhythm change Referred By: Fidencio Lozada Electronically Signed By:SACHI ELENA
--- NOTE | 2020-05-30 05:32 | PM.EVENT ---
Event Note Date of Service: 05/30/20 Event Note: Patient found on 12 lead EKG to be on afib with RVR. No previous hx of afib is documented. One dose of Cardizem to be given now and will assess response.
[2020-05-30] MEDS: Folic Acid 1 MG TABLET PO (05:46)
[2020-05-30] MEDS: Thiamine HCL 100 MG TABLET PO (05:46)
[2020-05-30] MEDS: dilTIAZem HCL 50 MG/10 ML VIAL 10 MG IVPUSH (05:51)
--- NOTE | 2020-05-30 06:00 | PC.NURSE ---
Patient noted to have elevated HR sustaining in the 120's BP 185/129, Dr. Sarah notified and ordered 5mg IV lopressor. Lopressor administered with positive effect: BP 130/89, HR 114. PT HR increasing again, ? of A.Fib, EKG done and shows A.Fib, HR 130-140's. DR. Sarah notified and order for 10mg IV cardizem. Pt BP 182/116, HR 140's prior to cardizem, cardizem given BP 170/90, HR 90 to 1-teens. PT asymptomatic at this time.
[2020-05-30 06:10] LABS: MANUAL DIFF FLAG NO
--- NOTE | 2020-05-30 06:30 | PC.NURSE ---
Pt had a 3 beat of v-tach at 0625, RN at bedside. Patient assessed, asymptomatic. Dr Sarah notified via [employer].
[2020-05-30 06:49] LABS: Basophils Absolute Auto 0.1 X10*3/uL (0.0-0.2); Basophils Percent Auto 0.7 % (0-2); Eosinophils Absolute Auto 0.1 X10*3/uL (0.0-0.4); Eosinophils Percent Auto 0.7 % (0-4); Hematocrit 42.7 % (42-52); Hemoglobin 13.9 g/dl (14.0-18.0); Imm Gran Abs Auto 0.03 X10*3/uL (0.00-0.03); Imm Gran Pct Auto 0.4 % (0.0-0.4); Lymphocytes Absolute Auto 2.2 X10*3/uL (1.2-4.9); Lymphocytes Percent Auto 27.1 % (20-40); Mean Corpuscular HGB Conc 32.6 g/dl (31.0-36.0); Mean Corpuscular Hemoglobin 35.4 pg (27.0-33.0); Mean Corpuscular Volume 108.7 fL (80-98); Mean Platelet Volume 11.9 fL (9.4-12.4); Monocytes Absolute Auto 0.8 X10*3/uL (0.1-1.2); Monocytes Percent Auto 9.4 % (2-11); NRBC Pct Auto 0.2 /100WBC (0.0-0.2); Neutrophils Percent Auto 61.7 % (45-73); Platelet Count 164 X10*3/uL (160-400); Red Blood Count 3.93 X10*6/uL (4.60-5.80); Red Cell Distribution Width 12.4 % (11.0-16.0); White Blood Count 8.2 X10*3/uL (4.8-10.8)
[2020-05-30 06:53] LABS: Anion Gap 17 (12-20); Blood Urea Nitrogen 14 mg/dL (9-16); Calcium 8.2 mg/dL (8.4-10.2); Carbon Dioxide 28 mmol/L (22-29); Chloride 96 mmol/L (96-108); Creatinine Clr Calc Pharmacy 130.3; Estimated Glomerular Filt Rate > 60; Glucose Random 141 mg/dL (60-115); Magnesium 1.4 mg/dL (1.6-2.6); Phosphorus 3.8 mg/dL (2.7-4.5); Potassium 3.7 mmol/l (3.3-5.1); Sodium 137 mmol/L (135-145)
[2020-05-30] MEDS: Magnesium Sulfate/H2O 2 GM/50 ML PIGGYBACK IV (08:13)
[2020-05-30] MEDS: 0.9 % Sodium Chloride Flush 3 ML SYRINGE IVFLUSH ×3 (08:13→23:12)
[2020-05-30] MEDS: atenoloL 50 MG TABLET PO (08:19)
[2020-05-30] MEDS: PHENobarbitaL 30 MG TABLET PO (08:25)
[2020-05-30] MEDS: lisinopriL 5 MG TABLET PO (08:26)
[2020-05-30] MEDS: allopurinoL 100 MG TABLET PO (08:26)
[2020-05-30] MEDS: FLUoxetine HCl 20 MG CAPSULE 40 MG PO (08:27)
[2020-05-30] MEDS: DULoxetine HCl 60 MG CAPSULE.DR PO (08:27)
--- NOTE | 2020-05-30 09:53 | PM.CNCAR ---
History of Present Illness History of Present Illness Date of Service: 05/30/20 Requesting physician: Fidencio Lozada Consult reason: atrial fibrillation Chief complaint: ALCOHOL WITHDRAWAL Narrative: Thank you for inviting us in consult on Esteban for atrial fibrillation. This appears to be the 1st time he has been atrial fibrillation. He has history of heavy alcohol abuse and on Tuesday said he was drinking heavily and had an argument with his and was arrested. following day was not feeling well. When his in night he started having symptoms of palpitations and not feeling well and anxious. He decided to quit alcohol and came to the hospital for detoxification. He was noted to be in alcohol withdrawal full-blown. He was given Ativan and phenobarbital protocol. He continues to have symptoms of palpitations. He was noted to have tachycardia, however do not see any EKGs on the chart. Subsequently was noted to be in atrial fibrillation rapid ventricular response and was admitted. He still feels anxious, says but feels better. Denies any shortness of breath, orthopnea, PND. Has prior history of hypertension for which she takes medications regularly. He also has history of sleep apnea and says he uses CPAP regularly. No history of prior heart issues including no coronary artery disease, myocardial infarction, congestive heart failure, stroke. No history of diabetes. He remains in atrial fibrillation slightly rapid ventricular response. Echocardiogram done in October showed normal LV systolic function with grade 2 diastolic dysfunction and moderate left atrial enlargement and [id number]-be-[id number] pulmonary hypertension Review of Systems Constitutional: Constitutional: Denies body ache(s), Denies chills, Reports excessive sweating, Denies fever(s), Denies frequent falls, Denies headache(s), Reports malaise and Reports weakness Eyes: Eyes: Reports no additional eye complaints ENT: Reports system reviewed and no additional complaints, except as documented and Denies headache(s) Cardiovascular: Cardiovascular: Denies chest pain, Denies lightheadedness, Denies Loss of Consciousness, Reports palpitations and Denies dyspnea Respiratory: Respiratory: Denies cough, Denies excessive phlegm production and Denies dyspnea Gastrointestinal: Gastrointestinal: Reports no additional gastrointestinal complaints Musculoskeletal: Musculoskeletal: Reports no additional musculoskeletal complaints Neurologic: Denies frequent falls, Denies headache(s) and Reports weakness Psychiatric: Psychiatric: Reports anxiety, Reports difficulty concentrating, Reports panic attacks and Reports visual hallucinations Endocrine: Endocrine: Reports no additional endocrine complaints, Reports excessive sweating and Reports palpitations Hematologic/Lymphatic: Hematologic/Lymphatic: Reports no additional hematologic/lymphatic complaints Allergic/Immunologic: Allergic/Immunologic: Reports no additional allergic/immunologic complaints COUNTS INCLUDE 234 BEDS AT THE [facility] Past Medical History Medical History Alcohol dependency Anxiety Arthritis Depression Gout HTN (hypertension) Seroma due to trauma Sleep apnea Functional capacity: independent ambulation Social History Social History Household Members: Spouse Housing: House Do you presently have visiting nurse or other home services: No Smoking Status: Current every day smoker Tobacco Type: Cigarette Packs Per Day: 1 Cigarettes Per Day: 20.0 Smoked in Last 30 Days: Yes Patient Interested in Nicotine Replacement: Yes Patient Given Instructions on How to Stop Smoking: Yes Date Education Initiated: 05/30/20 Second Hand Smoke Exposure: No Use of substances other than those prescribed or required for medical reasons: No Have you been hit, kicked, punched, or otherwise hurt by someone within the past year? If so, by whom?: No Do you feel safe in your current relationship?: Yes Is there a partner from a previous relationship who is making you feel unsafe now?: No Are you made to feel afraid or neglected: No Advance Directives: No Advance Directives Information Provided: No Do you have thoughts of harming others: None Do you have a plan to hurt others: No Plan Recently lost weight without trying: No Meds Allergies Allergy/AdvReac Type Severity Reaction Status Date / Time No Known Allergies Allergy Unverified 03/13/20 14:43 [No Known Allergies*] Home Medications Medication Instructions Recorded Confirmed Type allopurinol 100 mg tablet 100 mg PO DAILY 04/10/20 05/30/20 History duloxetine 60 mg capsule,delayed 60 mg PO DAILY 04/10/20 05/30/20 History release fluoxetine 40 mg capsule 40 mg PO DAILY 04/10/20 05/30/20 History lisinopril 5 mg tablet 5 mg PO DAILY 04/10/20 05/30/20 History atenolol 1 tab PO DAILY 05/30/20 05/30/20 History Physical Exam Vital Signs: Vital Signs: Last Vital Signs Temp 98.6 F 05/30/20 08:00 Pulse 130 H 05/30/20 08:19 Resp 20 05/30/20 08:00 BP 127/98 H 05/30/20 08:00 Pulse Ox 92 05/30/20 08:00 Body Mass Index 46.6 Const: General: cooperative, no acute distress, alert, awake and anxious Nutritional Appearance: obese morbidly obese Orientation/consciousness: patient oriented x3 Limitations: no limitations HENMT: Head: Yes normocephalic and Yes atraumatic Eyes: General: appearance normal, both eyes and all related structures Neck: Neck: Yes trachea midline, Yes supple and Yes no JVD Chest: Chest palpation & inspection: normal inspection of the chest Resp: Effort & Inspection: normal respiratory effort Auscultation: no rhonchi, no wheezes and diminished lung sounds Cardio: Jugular venous distension: no JVD Rate: tachycardic Rhythm: abnormal rhythm irregularly irregular Heart sounds: S1 normal heart sound present and S2 normal heart sound present GI: Inspection: Yes obesity Auscultation: normal bowel sounds Skin: General skin exam: no rashes or lesions noted Neuro: General: patient oriented x3 and no focal motor deficits Extrem: General: Yes no clubbing, cyanosis or edema Psych: Appearance: disheveled Affect: Anxious affect present Attitude: cooperative Thought process: Circumstantial thought process present Results Labs and Meds Result diagrams: 05/30/20 05:27 05/30/20 05:27 Lab results: Laboratory Results - last 24 hr 05/29/20 05/29/20 05/29/20 21:35 21:35 21:35 WBC 9.3 RBC 3.82 L D Hgb 13.9 L D Hct 41.8 L D MCV 109.4 H MCH 36.4 H MCHC 33.3 RDW 12.6 Plt Count 154 L D MPV 11.2 Immature Gran % (Auto) 0.4 Neut % (Auto) 65.4 Lymph % (Auto) 23.5 [place] % (Auto) 9.3 Eos % (Auto) 0.6 Baso % (Auto) 0.8 Lymph # (Auto) 2.2 [place] # (Auto) 0.9 Eos # (Auto) 0.1 Baso # (Auto) 0.1 Abs Immat Gran (auto) 0.04 H Absolute Neuts (auto) 6.1 Absolute Nucleated RBC 0.000 Nucleated RBC % (auto) 0.0 PT INR APTT Sodium 140 Potassium 4.1 Chloride 94 L Carbon Dioxide 36 H Anion Gap 14 BUN 12 Creatinine 0.91 Estim Creat Clear Calc 139.4 Estimated GFR > 60 Random Glucose 119 H Calcium 8.6 Phosphorus Magnesium Total Bilirubin 1.2 H AST 29 D ALT 11 Alkaline Phosphatase 115 Total Protein 7.2 Albumin 3.4 L Vitamin B12 248 Urine Opiates Screen Ur Barbiturates Screen Ur Phencyclidine Scrn Ur Amphetamines Screen U Benzodiazepines Scrn Urine Cocaine Screen U Marijuana (THC) Screen Ethyl Alcohol COVID-19 (LINDEN) COVID-19 [employer] Com 05/29/20 05/29/20 05/29/20 21:35 21:35 22:06 WBC RBC Hgb Hct MCV MCH MCHC RDW Plt Count MPV Immature Gran % (Auto) Neut % (Auto) Lymph % (Auto) [place] % (Auto) Eos % (Auto) Baso % (Auto) Lymph # (Auto) [place] # (Auto) Eos # (Auto) Baso # (Auto) Abs Immat Gran (auto) Absolute Neuts (auto) Absolute Nucleated RBC Nucleated RBC % (auto) PT INR APTT Sodium Potassium Chloride Carbon Dioxide Anion Gap BUN Creatinine Estim Creat Clear Calc Estimated GFR Random Glucose Calcium Phosphorus Magnesium Total Bilirubin AST ALT Alkaline Phosphatase Total Protein Albumin Vitamin B12 Urine Opiates Screen Not Detected Ur Barbiturates Screen Not Detected Ur Phencyclidine Scrn Not Detected Ur Amphetamines Screen Not Detected U Benzodiazepines Scrn Not Detected Urine Cocaine Screen Not Detected U Marijuana (THC) Screen Not Detected Ethyl Alcohol < 10 COVID-19 (LINDEN) Negative COVID-19 [employer] See Note 05/30/20 05/30/20 05/30/20 02:07 02:07 05:27 WBC 8.2 RBC 3.93 L Hgb 13.9 L Hct 42.7 MCV 108.7 H MCH 35.4 H MCHC 32.6 RDW 12.4 Plt Count 164 MPV 11.9 Immature Gran % (Auto) 0.4 Neut % (Auto) 61.7 Lymph % (Auto) 27.1 [place] % (Auto) 9.4 Eos % (Auto) 0.7 Baso % (Auto) 0.7 Lymph # (Auto) 2.2 [place] # (Auto) 0.8 Eos # (Auto) 0.1 Baso # (Auto) 0.1 Abs Immat Gran (auto) 0.03 Absolute Neuts (auto) 5.0 Absolute Nucleated RBC 0.020 H Nucleated RBC % (auto) 0.2 PT Cancelled 14.3 H INR Cancelled 1.2 H APTT 32.8 Sodium Potassium Chloride Carbon Dioxide Anion Gap BUN Creatinine Estim Creat Clear Calc Estimated GFR Random Glucose Calcium Phosphorus Magnesium Total Bilirubin AST ALT Alkaline Phosphatase Total Protein Albumin Vitamin B12 Urine Opiates Screen Ur Barbiturates Screen Ur Phencyclidine Scrn Ur Amphetamines Screen U Benzodiazepines Scrn Urine Cocaine Screen U Marijuana (THC) Screen Ethyl Alcohol COVID-19 (LINDEN) COVID-19 [employer] Com 05/30/20 05:27 WBC RBC Hgb Hct MCV MCH MCHC RDW Plt Count MPV Immature Gran % (Auto) Neut % (Auto) Lymph % (Auto) [place] % (Auto) Eos % (Auto) Baso % (Auto) Lymph # (Auto) [place] # (Auto) Eos # (Auto) Baso # (Auto) Abs Immat Gran (auto) Absolute Neuts (auto) Absolute Nucleated RBC Nucleated RBC % (auto) PT INR APTT Sodium 137 Potassium 3.7 Chloride 96 Carbon Dioxide 28 Anion Gap 17 BUN 14 Creatinine 0.94 Estim Creat Clear Calc 130.3 Estimated GFR > 60 Random Glucose 141 H Calcium 8.2 L Phosphorus 3.8 Magnesium 1.4 L* Total Bilirubin AST ALT Alkaline Phosphatase Total Protein Albumin Vitamin B12 Urine Opiates Screen Ur Barbiturates Screen Ur Phencyclidine Scrn Ur Amphetamines Screen U Benzodiazepines Scrn Urine Cocaine Screen U Marijuana (THC) Screen Ethyl Alcohol COVID-19 (LINDEN) COVID-19 Clin Com Assessment and Plan (1) Persistent atrial fibrillation: Status: Acute persistent symptomatic atrial fibrillation, exact onset of atrial fibrillation is unknown. Given moderate left atrial enlargement, most likely related to obesity as well as sleep apnea and hypertension, likely to have atrial fibrillation induced by both stress as well as alcohol use. His rate is borderline control. Will changes atenolol to metoprolol 50 mg q.6 hours for better rate control. Currently will pursue rate control approach. CHADSVASc score of 1, But with left atrial enlargement remains at risk for stroke. This was discussed with him. However given his alcohol abuse history he is also at risk of bleeding. We discussed about oral anticoagulation therapy once he is sober and off alcohol. He says he is going to try this. Meanwhile will continue with rate control approach. Continue with sleep apnea therapy. Continue with aggressive blood pressure control. Complete cessation of alcohol was discussed. He understands. Given his diastolic dysfunction as well as left atrial enlargement it is possible that he may not be able to tolerate atrial fibrillation persistent. Will need to monitor this as outpatient. Will require outpatient Holter monitor and follow-up. (2) HTN (hypertension): Status: Acute As above. Continue aggressive blood pressure control. (3) Left atrial enlargement: Status: Acute Related to morbid obesity, hypertension and sleep apnea. Makes him prone to develop atrial fibrillation in future. (4) Alcohol dependency: Status: Acute Needs to completely abstain from alcohol use for better management of his atrial fibrillation. This was discussed in details. (5) Sleep apnea: Status: Acute Continue CPAP therapy.
[2020-05-30] MEDS: Metoprolol Tartrate 50 MG TABLET PO ×3 (13:03→23:12)
--- NOTE | 2020-05-30 15:04 | MHC.CM.PN ---
CM ATTEMPTED TO MEET WITH PT WHO WAS SLEEPING. CM TO RETURN
--- NOTE | 2020-05-30 16:42 | MHC.PIE ---
Shift eval 7a-3p- patient HR still 100-130, Dr Lozada made aware - Afib, Occ Pvc's. Patient drowsy, arousable. HR elevated to 160's with activity. Order to give Atenolol early, and then changed to lopressor PO - given as well at approx 1300. HR now 99-low 100's, afib still. BP improved 120's to 130's systolic. Patient up to bathroom, 1 assist. No hallucinations at this time.
--- NOTE | 2020-05-30 17:19 | HO.PM.IMPN ---
Subjective Subjective Date of Service: 05/30/20 Interval History: Patient seen and examined at bedside patient was sleepy and shake Physical Exam Vital Signs: Vital Signs: Last Vital Signs Temp 97.8 F 05/30/20 15:41 Pulse 98 05/30/20 15:41 Resp 18 05/30/20 15:41 BP 137/84 05/30/20 15:41 Pulse Ox 92 05/30/20 15:41 Body Mass Index 46.6 Const: General: cooperative, healthy appearing, anxious and other HENMT: Head: Yes normal to inspection Eyes: General: appearance normal, both eyes and all related structures Neck: Neck: Yes normal visual inspection Chest: Chest palpation & inspection: normal inspection of the chest Resp: Effort & Inspection: normal respiratory effort Cardio: Jugular venous distension: no JVD Rate: tachycardic Rhythm: regular rhythm Heart sounds: S1 normal heart sound present and S2 normal heart sound present GI: Inspection: Yes normal to inspection Skin: General skin exam: other (flushed skin ) Neuro: General: other (UE tremors) Extrem: General: Yes normal to inspection Objective Data Current Medications Generic Name Dose Route Start Last Admin Trade Name Freq PRN Reason Stop Dose Admin Allopurinol 100 mg 05/30/20 09:00 05/30/20 08:26 Allopurinol 100 Mg Tablet PO 100 mg DAILY JESSICA Administration Duloxetine HCl 60 mg 05/30/20 09:00 05/30/20 08:27 Duloxetine Hcl 60 Mg Capsule.Dr PO 60 mg DAILY JESSICA Administration Fluoxetine HCl 40 mg 05/30/20 09:00 05/30/20 08:27 Fluoxetine Hcl 20 Mg Capsule PO 40 mg DAILY JESSICA Administration Folic Acid 1 mg 05/30/20 06:00 05/30/20 05:46 Folic Acid 1 Mg Tablet PO 1 mg Q24H JESSICA Administration Heparin Sodium (Porcine) 5,000 unit 05/30/20 01:57 05/30/20 16:37 Heparin Sodium,Porcine 5,000 Unit/Ml Vial SUBCUT 5,000 unit Q8H JESSICA Administration Lisinopril 5 mg 05/30/20 09:00 05/30/20 08:26 Lisinopril 5 Mg Tablet PO 5 mg DAILY JESSICA Administration Protocol Magnesium Oxide 400 mg 05/30/20 17:30 Magnesium Oxide 400 Mg Tablet PO BIDPC JESSICA Medication 1 each 05/30/20 09:00 No Benzodiazepines MISCELLANE DAILY [facility] Metoprolol Tartrate 50 mg 05/30/20 10:00 05/30/20 16:36 Metoprolol Tartrate 50 Mg Tablet PO 50 mg Q6H JESSICA Administration Protocol Phenobarbital 60 mg 05/30/20 21:00 Phenobarbital 30 Mg Tablet PO 06/01/20 09:01 BID JESSICA Protocol Phenobarbital 30 mg 06/01/20 21:00 Phenobarbital 30 Mg Tablet PO 06/03/20 09:01 BID JESSICA Protocol Phenobarbital 30 mg 05/30/20 09:00 05/30/20 08:25 Phenobarbital 30 Mg Tablet PO 05/31/20 09:01 30 mg DAILY JESSICA Administration Protocol Sodium Chloride 3 ml 05/30/20 08:00 05/30/20 16:37 0.9 % Sodium Chloride Flush 3 Ml Syringe IVFLUSH 3 ml QSHIFT JESSICA Administration Thiamine HCl 100 mg 05/30/20 06:00 05/30/20 05:46 Thiamine Hcl 100 Mg Tablet PO 100 mg Q24H JESSICA Administration Labs CBC & Chem 7: 05/30/20 05:27 05/30/20 05:27 Assessment and Plan (1) Alcohol withdrawal syndrome: Status: Acute (2) Depression: Status: Inactive (3) HTN (hypertension): Status: Acute (4) Sleep apnea: Status: Acute Assessment and Plan: Alcohol withdrawal continue ciwa and Phenobarbital protocol monitor on telemetry continue supportive care monitor electrolytes Hypomagnesemia replaced monitor electrolytes New onset of AFib with RVR seen by Cardiology recommended starting Lopressor q.6 hours monitor on telemetry not a candidate for anticoagulation given severe alcohol abuse Obesity likely underlying sleep apnea continue CPAP at night Hypertension continue lisinopril Gout continue allopurinol Depression on duloxetine and fluoxetine DVT prophylaxis: Lovenox
[2020-05-30] MEDS: Magnesium Oxide 400 MG TABLET PO (19:11)
[2020-05-30] MEDS: PHENobarbitaL 30 MG TABLET 60 MG PO (20:32)
[2020-05-31] VITALS: PULSE 96
--- NOTE | 2020-05-31 | XR_ITS ---
EXAMINATION: XR CHEST CLINICAL INFORMATION: Hypoxia COMPARISON: Chest CT and chest x-ray 04/10/2020. Chest x-ray 11/08/2019 TECHNIQUE: Frontal view of the chest was obtained. FINDINGS: The cardiac silhouette is again noted to be enlarged. The lungs are adequately aerated. Mild diffuse increase in interstitial prominence. There is no gross lobar consolidation. No significant pleural effusion. No pneumothorax. XR/XR chest 1V IMPRESSION: Cardiomegaly in the setting of interstitial prominence suggests volume overload. An infiltrate is also within the differential. Follow-up imaging recommended status post treatment to ensure resolution.
[2020-05-31 02:40] VITALS: BP 126/95; PULSE 89; RESP 18; TEMP 36.4
--- NOTE | 2020-05-31 03:39 | PC.NURSE ---
Addendum entered by Emiliana Allen RN 05/31/20 04:12: 30mh IV pheno given as orderd. VSS. Patient still restless in bed at this time. will monitor. Original Note: Throughout shift patient with increased agitation, restlessness. Patient talking to people not in the room at times. Patient seen grabbing at the air. Patient needed frequent reorientation, not always successful. Patient shaking at rest. Unsteady on feet. Telesitter at bedside. made aware of CIWA and patient's behavior at this time.
[2020-05-31] MEDS: PHENobarbitaL sodium 65 MG/ML VIAL 30 MG IVPUSH (04:10)
[2020-05-31] MEDS: Heparin Sodium,Porcine 5,000 UNIT/ML VIAL 5000 UNIT SUBCUT ×3 (04:10→17:47)
[2020-05-31] MEDS: Metoprolol Tartrate 50 MG TABLET PO ×4 (04:11→21:52)
[2020-05-31 06:32] LABS: MANUAL DIFF FLAG NO
--- NOTE | 2020-05-31 07:00 | PC.NURSE ---
Addendum entered by Joanna Zuñiga RN 05/31/20 07:03: BERKLEY 21, Patient given 30mg IV pheno last at 0430 on previous shift. notified. Original Note: Patient confused, restless, delerious, hallucinating, yelling out, thrashing in bed. Removed two IVs, continuously removing telemetry pack. Camera at bedside for safety, bed alarm on. No sitter available. Patient given 30mg IV phenobb
[2020-05-31 07:03] LABS: Basophils Absolute Auto 0.1 X10*3/uL (0.0-0.2); Basophils Percent Auto 0.6 % (0-2); Eosinophils Percent Auto 0.3 % (0-4); Hematocrit 44.3 % (42-52); Hemoglobin 14.6 g/dl (14.0-18.0); Imm Gran Abs Auto 0.07 X10*3/uL (0.00-0.03); Imm Gran Pct Auto 0.7 % (0.0-0.4); Mean Corpuscular Hemoglobin 36.1 pg (27.0-33.0); Mean Corpuscular Volume 109.7 fL (80-98); Monocytes Absolute Auto 1.1 X10*3/uL (0.1-1.2); Monocytes Percent Auto 9.8 % (2-11); NRBC Pct Auto 0.5 /100WBC (0.0-0.2); Neutrophils Absolute Auto 6.5 X10*3/uL (2.0-8.3); Neutrophils Percent Auto 60.6 % (45-73); Platelet Count 188 X10*3/uL (160-400); Red Blood Count 4.04 X10*6/uL (4.60-5.80); Red Cell Distribution Width 12.8 % (11.0-16.0); White Blood Count 10.8 X10*3/uL (4.8-10.8)
[2020-05-31 07:30] VITALS: PULSE 96; O2SAT 99
[2020-05-31 07:42] LABS: Anion Gap 18 (12-20); Blood Urea Nitrogen 29 mg/dL (9-16); Calcium 8.6 mg/dL (8.4-10.2); Carbon Dioxide 27 mmol/L (22-29); Chloride 91 mmol/L (96-108); Creatinine Clr Calc Pharmacy 49.6; Estimated Glomerular Filt Rate 27; Glucose Random 144 mg/dL (60-115); Potassium 4.1 mmol/l (3.3-5.1); Sodium 132 mmol/L (135-145)
[2020-05-31 09:07] LABS: Ammonia 42 umol/L (13-55)
[2020-05-31] MEDS: 0.9 % Sodium Chloride 1,000 ML 100 ML IVCONT ×2 (09:16→17:47)
[2020-05-31 09:18] LABS: Pt Ventilation O2% 2 L
[2020-05-31 09:20] LABS: ABG PCO2 47 mmhg (32-45); Base Excess ABG -0.8; HCO3 ABG 25 mmol/l (22-26); Oxygen Saturation ABG 97.9 %; PO2 ABG 110 mmhg (83-108); pH ABG 7.35 (7.35-7.45)
--- NOTE | 2020-05-31 09:57 | PC.NURSE ---
0800am- MD at bedside to evaluate patient. Patient lethargic, responding to moderate tactile stimuli. O2 sat 99% on 2Liters, afib 80s-90s on tele. BP stable. New order for Stat ABGS, chest x ray, Stat ammonia level.
[2020-05-31] MEDS: PHENobarbitaL sodium 65 MG/ML VIAL 187 MG IM (10:26)
--- NOTE | 2020-05-31 11:14 | PM.PNCARD ---
Subjective Subjective Date of Service: 05/31/20 Principal diagnosis: alcohol withdrawal, atrial fibrillation Interval history: patient currently having significant alcohol withdrawal syndrome, currently confused and somnolent. Does not offer any cardiac complaints. Review of Systems Review of Systems Yes Unobtainable due to mental status Physical Exam Vital Signs: Last Vital Signs Temp 97.6 F 05/31/20 02:40 Pulse 96 05/31/20 07:30 Resp 18 05/31/20 02:40 BP 126/95 H 05/31/20 02:40 Pulse Ox 99 05/31/20 07:30 Body Mass Index 46.6 Const General: no acute distress and patient obtunded Nutritional Appearance: obese morbidly obese Orientation/consciousness: patient obtunded HENMT Head: Yes normocephalic and Yes atraumatic Neck Neck: Yes trachea midline, Yes supple and Yes no JVD Chest Chest palpation & inspection: normal inspection of the chest Resp Effort & Inspection: decreased respiratory effort Auscultation: clear to auscultation bilaterally Cardio Rhythm: abnormal rhythm irregularly irregular Heart sounds: S1 normal heart sound present Peripheral pulses: Peripheral pulses 2+ throughout GI Auscultation: normal bowel sounds Neuro General: no focal motor deficits and patient obtunded Results Labs and Meds Result diagrams: 05/31/20 05:42 05/31/20 05:42 Lab results: Laboratory Results - last 24 hr 05/31/20 05/31/20 05/31/20 05:42 05:42 05:42 WBC 10.8 RBC 4.04 L Hgb 14.6 Hct 44.3 MCV 109.7 H MCH 36.1 H MCHC 33.0 RDW 12.8 Plt Count 188 MPV 12.0 Immature Gran % (Auto) 0.7 H Neut % (Auto) 60.6 Lymph % (Auto) 28.0 [place] % (Auto) 9.8 Eos % (Auto) 0.3 Baso % (Auto) 0.6 Lymph # (Auto) 3.0 [place] # (Auto) 1.1 Eos # (Auto) 0.0 Baso # (Auto) 0.1 Abs Immat Gran (auto) 0.07 H Absolute Neuts (auto) 6.5 Absolute Nucleated RBC 0.050 H Nucleated RBC % (auto) 0.5 H ABG pH ABG pCO2 ABG pO2 ABG HCO3 ABG O2 Saturation ABG Base Excess Oxygen Given Sodium 132 L Potassium 4.1 Chloride 91 L Carbon Dioxide 27 Anion Gap 18 BUN 29 H D Creatinine 2.47 H Estim Creat Clear Calc 49.6 Estimated GFR 27 Random Glucose 144 H Calcium 8.6 Magnesium 2.0 Ammonia 05/31/20 05/31/20 08:26 09:05 WBC RBC Hgb Hct MCV MCH MCHC RDW Plt Count MPV Immature Gran % (Auto) Neut % (Auto) Lymph % (Auto) [place] % (Auto) Eos % (Auto) Baso % (Auto) Lymph # (Auto) [place] # (Auto) Eos # (Auto) Baso # (Auto) Abs Immat Gran (auto) Absolute Neuts (auto) Absolute Nucleated RBC Nucleated RBC % (auto) ABG pH 7.35 ABG pCO2 47 H ABG pO2 110 H ABG HCO3 25 ABG O2 Saturation 97.9 ABG Base Excess -0.8 Oxygen Given 2 L Sodium Potassium Chloride Carbon Dioxide Anion Gap BUN Creatinine Estim Creat Clear Calc Estimated GFR Random Glucose Calcium Magnesium Ammonia 42 Progress Note: A&P Assessment and plan (1) Persistent atrial fibrillation: Status: Acute Assessment and Plan: Persistent atrial fibrillation with better rate control metoprolol therapy. If oral route is not possible, switch to Lopressor 5 mg q.6 hours IV push or drip. Continue treatment of underlying alcohol withdrawal problem. Likelihood of converting to sinus rhythm is low given his left atrial enlargement. Currently not a candidate for oral anticoagulant therapy due to alcohol abuse. Will need to follow as outpatient and if maintains sobriety may consider oral anticoagulation outpatient. Importance of this was discussed, however patient currently not in mental status to understand anything. Will sign of the case. Thank you for allowing us to partake in his care Fall Risk Details Current Medications: Current Medications Generic Name Dose Route Start Last Admin Trade Name Freq PRN Reason Stop Dose Admin Allopurinol 100 mg 05/30/20 09:00 05/31/20 10:28 Allopurinol 100 Mg Tablet PO Not Given DAILY JESSICA Duloxetine HCl 60 mg 05/30/20 09:00 05/31/20 10:28 Duloxetine Hcl 60 Mg Capsule.Dr PO Not Given DAILY JESSICA Fluoxetine HCl 40 mg 05/30/20 09:00 05/31/20 10:28 Fluoxetine Hcl 20 Mg Capsule PO Not Given DAILY JESSICA Folic Acid 1 mg 05/30/20 06:00 05/31/20 05:57 Folic Acid 1 Mg Tablet PO Not Given Q24H JESSICA Heparin Sodium (Porcine) 5,000 unit 05/30/20 01:57 05/31/20 04:10 Heparin Sodium,Porcine 5,000 Unit/Ml Vial SUBCUT 5,000 unit Q8H JESSICA Administration Sodium Chloride 1,000 mls @ 100 mls/hr 05/31/20 09:00 05/31/20 09:16 Ns IVCONT 100 mls/hr .Q10H JESSICA Administration Lisinopril 5 mg 05/30/20 09:00 05/31/20 10:29 Lisinopril 5 Mg Tablet PO Not Given DAILY [facility] Protocol Magnesium Oxide 400 mg 05/30/20 17:30 05/31/20 10:28 Magnesium Oxide 400 Mg Tablet PO Not Given BIDPC [facility] Medication 1 each 05/30/20 09:00 No Benzodiazepines MISCELLANE DAILY [facility] Metoprolol Tartrate 50 mg 05/30/20 10:00 05/31/20 04:11 Metoprolol Tartrate 50 Mg Tablet PO 50 mg Q6H JESSICA Administration Protocol Phenobarbital 60 mg 05/30/20 21:00 05/31/20 10:29 Phenobarbital 30 Mg Tablet PO 06/01/20 09:01 Not Given BID JESSICA Protocol Phenobarbital 30 mg 06/01/20 21:00 Phenobarbital 30 Mg Tablet PO 06/03/20 09:01 BID [facility] Protocol Sodium Chloride 3 ml 05/30/20 08:00 05/31/20 09:17 0.9 % Sodium Chloride Flush 3 Ml Syringe IVFLUSH Not Given QSHIFT [facility] Thiamine HCl 100 mg 05/30/20 06:00 05/31/20 05:58 Thiamine Hcl 100 Mg Tablet PO Not Given Q24H [facility] Time Spent With Patient Time: Total time spent is greater than 50% in coordination of care (as documented) at patient's floor/unit and/or counseling patient: Time with patient: 15 - 24 minutes
[2020-05-31] MEDS: PHENobarbitaL 30 MG TABLET 60 MG PO (12:28)
[2020-05-31] MEDS: lisinopriL 5 MG TABLET PO (12:28)
[2020-05-31] MEDS: 0.9 % Sodium Chloride Flush 3 ML SYRINGE IVFLUSH ×2 (12:29→21:52)
--- NOTE | 2020-05-31 15:23 | P.PNIM_ITS ---
Subjective Subjective Date of Service: 05/31/20 Interval History: Patient seen and examined at bedside Patient was agitated in morning and confused trying to get out of the bed patient received IM phenobarbital in the morning and improved Constitutional Constitutional: Reports as per HPI Physical Exam Vital Signs: Vital Signs: Last Vital Signs Temp 97.6 F 05/31/20 02:40 Pulse 96 05/31/20 07:30 Resp 18 05/31/20 02:40 BP 126/95 H 05/31/20 02:40 Pulse Ox 99 05/31/20 07:30 Body Mass Index 46.6 Const: General: cooperative, healthy appearing, anxious and other HENMT: Head: Yes normal to inspection Eyes: General: appearance normal, both eyes and all related structures Neck: Neck: Yes normal visual inspection Chest: Chest palpation & inspection: normal inspection of the chest Resp: Effort & Inspection: normal respiratory effort Cardio: Jugular venous distension: no JVD Rate: tachycardic Rhythm: regular rhythm Heart sounds: S1 normal heart sound present and S2 normal heart sound present GI: Inspection: Yes normal to inspection Skin: General skin exam: other (flushed skin ) Neuro: General: other (UE tremors) Extrem: General: Yes normal to inspection Objective Data Current Medications Generic Name Dose Route Start Last Admin Trade Name Freq PRN Reason Stop Dose Admin Allopurinol 100 mg 05/30/20 09:00 05/31/20 10:28 Allopurinol 100 Mg Tablet PO Not Given DAILY JESSICA Duloxetine HCl 60 mg 05/30/20 09:00 05/31/20 10:28 Duloxetine Hcl 60 Mg Capsule.Dr PO Not Given DAILY JESSICA Fluoxetine HCl 40 mg 05/30/20 09:00 05/31/20 10:28 Fluoxetine Hcl 20 Mg Capsule PO Not Given DAILY JESSICA Folic Acid 1 mg 05/30/20 06:00 05/31/20 05:57 Folic Acid 1 Mg Tablet PO Not Given Q24H JESSICA Heparin Sodium (Porcine) 5,000 unit 05/30/20 01:57 05/31/20 12:28 Heparin Sodium,Porcine 5,000 Unit/Ml Vial SUBCUT 5,000 unit Q8H JESSICA Administration Sodium Chloride 1,000 mls @ 100 mls/hr 05/31/20 09:00 05/31/20 09:16 Ns IVCONT 100 mls/hr .Q10H JESSICA Administration Lisinopril 5 mg 05/30/20 09:00 05/31/20 12:28 Lisinopril 5 Mg Tablet PO 5 mg DAILY JESSICA Administration Protocol Magnesium Oxide 400 mg 05/30/20 17:30 05/31/20 10:28 Magnesium Oxide 400 Mg Tablet PO Not Given BIDPC [facility] Medication 1 each 05/30/20 09:00 No Benzodiazepines MISCELLANE DAILY JESSICA Metoprolol Tartrate 50 mg 05/30/20 10:00 05/31/20 12:28 Metoprolol Tartrate 50 Mg Tablet PO 50 mg Q6H JESSICA Administration Protocol Phenobarbital 60 mg 05/30/20 21:00 05/31/20 12:28 Phenobarbital 30 Mg Tablet PO 06/01/20 09:01 60 mg BID JESSICA Administration Protocol Phenobarbital 30 mg 06/01/20 21:00 Phenobarbital 30 Mg Tablet PO 06/03/20 09:01 BID JESSICA Protocol Sodium Chloride 3 ml 05/30/20 08:00 05/31/20 12:29 0.9 % Sodium Chloride Flush 3 Ml Syringe IVFLUSH 3 ml QSHIFT [facility] Administration Thiamine HCl 100 mg 05/30/20 06:00 05/31/20 05:58 Thiamine Hcl 100 Mg Tablet PO Not Given Q24H [facility] Labs CBC & Chem 7: 05/31/20 05:42 05/31/20 05:42 Assessment and Plan (1) Alcohol withdrawal syndrome: Status: Acute (2) Depression: Status: Inactive (3) HTN (hypertension): Status: Acute (4) Sleep apnea: Status: Acute Assessment and Plan: 60-year-old male with significant history of alcohol abuse brought from snf Alcohol withdrawal was agitated and confused this morning received extra dose of IM phenobarbital continue ciwa and Phenobarbital protocol monitor on telemetry continue supportive care monitor electrolytes Hypomagnesemia replaced and resolved monitor electrolytes New onset of AFib with RVR seen by Cardiology recommended Lopressor q.6 hours monitor on telemetry not a candidate for anticoagulation given severe alcohol abuse and file Obesity likely underlying sleep apnea continue CPAP at night Hypertension continue lisinopril Gout continue allopurinol Depression on duloxetine and fluoxetine DVT prophylaxis: Lovenox
[2020-05-31 16:11] VITALS: BP 170/88; PULSE 70; RESP 22; TEMP 36.6; O2SAT 93
[2020-05-31] MEDS: Magnesium Oxide 400 MG TABLET PO (17:47)
[2020-05-31 19:46] VITALS: BP 119/76; PULSE 76; RESP 22; TEMP 36.7; O2SAT 95
[2020-05-31 21:52] VITALS: PULSE 78
[2020-06-01] VITALS (7 sets, daily range): BP systolic 110–140; BP diastolic 71–89; PULSE 64–83; RESP 20–22; TEMP 36.3–36.6; O2SAT 90–97
--- NOTE | 2020-06-01 | US_ITS ---
EXAMINATION: US RETROPERITONEAL LIMITED (RENAL ONLY) CLINICAL INFORMATION: 60-year-old male with acute kidney injury. COMPARISON: CT abdomen pelvis 03/15/2020 and renal ultrasound 04/29/2019 TECHNIQUE: Grayscale and color Doppler imaging was obtained of both kidneys. FINDINGS: RIGHT KIDNEY: 11.3 x 5.4 x 5.0 cm (SAG x AP x TRV). The kidney is normal in size, contour, and echogenicity. There is mild focal renal cortical thinning of the midpole. No renal calculi or hydronephrosis. LEFT KIDNEY: 13.1 x 6.7 x 5.2 cm (SAG x AP x TRV). The kidney is normal in size, contour, and echogenicity. Renal cortical thickness is normal. No renal calculi or hydronephrosis. 1.4 cm lower pole cyst. US/US retroperitoneal limited IMPRESSION: -No renal calculi or hydronephrosis of either kidney. -Mild focal renal cortical thinning of the midpole right kidney suggesting likely scarring from prior infection. -Small left renal cyst.
[2020-06-01] MEDS: Heparin Sodium,Porcine 5,000 UNIT/ML VIAL 5000 UNIT SUBCUT ×3 (01:19→16:59)
[2020-06-01] MEDS: 0.9 % Sodium Chloride 1,000 ML 100 ML IVCONT (04:42)
[2020-06-01] MEDS: Metoprolol Tartrate 50 MG TABLET PO ×4 (04:43→21:38)
[2020-06-01] MEDS: Thiamine HCL 100 MG TABLET PO (04:44)
[2020-06-01] MEDS: Folic Acid 1 MG TABLET PO (04:45)
[2020-06-01 06:21] LABS: MANUAL DIFF FLAG NO
[2020-06-01 06:53] LABS: Basophils Absolute Auto 0.1 X10*3/uL (0.0-0.2); Basophils Percent Auto 0.4 % (0-2); Eosinophils Percent Auto 0.2 % (0-4); Hematocrit 42.9 % (42-52); Hemoglobin 14.2 g/dl (14.0-18.0); Imm Gran Abs Auto 0.06 X10*3/uL (0.00-0.03); Imm Gran Pct Auto 0.5 % (0.0-0.4); Lymphocytes Percent Auto 25.3 % (20-40); Mean Corpuscular HGB Conc 33.1 g/dl (31.0-36.0); Mean Corpuscular Hemoglobin 35.9 pg (27.0-33.0); Mean Corpuscular Volume 108.3 fL (80-98); Mean Platelet Volume 12.2 fL (9.4-12.4); Monocytes Absolute Auto 1.2 X10*3/uL (0.1-1.2); Monocytes Percent Auto 10.3 % (2-11); NRBC Pct Auto 0.4 /100WBC (0.0-0.2); Neutrophils Absolute Auto 7.4 X10*3/uL (2.0-8.3); Neutrophils Percent Auto 63.3 % (45-73); Platelet Count 204 X10*3/uL (160-400); Red Blood Count 3.96 X10*6/uL (4.60-5.80); Red Cell Distribution Width 12.9 % (11.0-16.0); White Blood Count 11.7 X10*3/uL (4.8-10.8)
[2020-06-01 07:07] LABS: Anion Gap 22 (12-20); Blood Urea Nitrogen 43 mg/dL (9-16); Calcium 8.4 mg/dL (8.4-10.2); Carbon Dioxide 25 mmol/L (22-29); Chloride 93 mmol/L (96-108); Creatinine Clr Calc Pharmacy 35.6; Estimated Glomerular Filt Rate 18; Glucose Random 96 mg/dL (60-115); Potassium 4.6 mmol/l (3.3-5.1); Sodium 135 mmol/L (135-145)
[2020-06-01] MEDS: PHENobarbitaL 30 MG TABLET 60 MG PO (08:44)
[2020-06-01] MEDS: Magnesium Oxide 400 MG TABLET PO ×2 (08:52→17:00)
[2020-06-01] MEDS: allopurinoL 100 MG TABLET PO (08:52)
[2020-06-01] MEDS: FLUoxetine HCl 20 MG CAPSULE 40 MG PO (08:52)
[2020-06-01] MEDS: DULoxetine HCl 60 MG CAPSULE.DR PO (08:52)
[2020-06-01] MEDS: 0.9 % Sodium Chloride 1,000 ML 999 ML IV (10:23)
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
[2020-06-01] MEDS: 0.9 % Sodium Chloride 1,000 ML 150 ML IVCONT ×2 (14:09→18:35)
--- NOTE | 2020-06-01 15:21 | MHC.CM.PN ---
CM HAS ATTEMPTED TO MEET WITH PT MULTIPLE TIMES OVER THE WEEKEND. PT SLEEPING A MAJORITY OF THE TIME AND CONFUSED THE LAST TIME. CM ATTEMPTED TO CONTACT PTS BROTHER, DANNY CHOI ([phone] )WHO IS HIS ONLY LISTED NOK. HOWEVER, A WOMAN ANSWERED THE CALL AND STATED IT WAS THE WRONG NUMBER. CM WILL ATTEMPT TO MEET WITH PT AGAIN TOMORROW.
--- NOTE | 2020-06-01 16:27 | HO.PM.IMPN ---
Subjective Subjective Date of Service: 06/01/20 Interval History: confused but in no acute distress no fever no vomiting no tremors no seizures Physical Exam Vital Signs: Vital Signs: Last Vital Signs Temp 97.8 F 06/01/20 16:18 Pulse 73 06/01/20 16:18 Resp 22 H 06/01/20 16:18 BP 140/89 H 06/01/20 16:18 Pulse Ox 97 06/01/20 16:18 Body Mass Index 46.6 Gen: in no acute distress HEENT: sclera anicteric, moist mucus membranes Neck: supple Lungs: clear to auscultation bilaterally Heart: regular rate and rhythm, no murmurs Abd: soft, non-tender, non-distended, morbidly obese Ext: no edema Skin: warm/well-perfused Neuro: disoriented Objective Data Current Medications Generic Name Dose Route Start Last Admin Trade Name Freq PRN Reason Stop Dose Admin Duloxetine HCl 60 mg 05/30/20 09:00 06/01/20 08:52 Duloxetine Hcl 60 Mg Capsule.Dr PO 60 mg DAILY JESSICA Administration Fluoxetine HCl 40 mg 05/30/20 09:00 06/01/20 08:52 Fluoxetine Hcl 20 Mg Capsule PO 40 mg DAILY JESSICA Administration Folic Acid 1 mg 05/30/20 06:00 06/01/20 04:45 Folic Acid 1 Mg Tablet PO 1 mg Q24H JESSICA Administration Heparin Sodium (Porcine) 5,000 unit 05/30/20 01:57 06/01/20 08:53 Heparin Sodium,Porcine 5,000 Unit/Ml Vial SUBCUT 5,000 unit Q8H JESSICA Administration Sodium Chloride 1,000 mls @ 150 mls/hr 05/31/20 09:00 06/01/20 14:09 Ns IVCONT 150 mls/hr .[id number] JESSICA Administration Magnesium Oxide 400 mg 05/30/20 17:30 06/01/20 08:52 Magnesium Oxide 400 Mg Tablet PO 400 mg BIDPC JESSICA Administration Medication 1 each 05/30/20 09:00 No Benzodiazepines MISCELLANE DAILY JESSICA Metoprolol Tartrate 50 mg 05/30/20 10:00 06/01/20 08:44 Metoprolol Tartrate 50 Mg Tablet PO 50 mg Q6H JESSICA Administration Protocol Phenobarbital 30 mg 06/01/20 21:00 Phenobarbital 30 Mg Tablet PO 06/03/20 09:01 BID JESSICA Protocol Sodium Chloride 3 ml 05/30/20 08:00 06/01/20 08:44 0.9 % Sodium Chloride Flush 3 Ml Syringe IVFLUSH Not Given QSHIFT [facility] Thiamine HCl 100 mg 05/30/20 06:00 06/01/20 04:44 Thiamine Hcl 100 Mg Tablet PO 100 mg Q24H JESSICA Administration Labs CBC & Chem 7: 06/01/20 05:48 06/01/20 05:48 Labs: Laboratory Results - last 24 hr 06/01/20 06/01/20 06/01/20 05:48 05:48 14:18 WBC 11.7 H RBC 3.96 L Hgb 14.2 Hct 42.9 MCV 108.3 H MCH 35.9 H MCHC 33.1 RDW 12.9 Plt Count 204 MPV 12.2 Immature Gran % (Auto) 0.5 H Neut % (Auto) 63.3 Lymph % (Auto) 25.3 [facility] % (Auto) 10.3 Eos % (Auto) 0.2 Baso % (Auto) 0.4 Lymph # (Auto) 3.0 [facility] # (Auto) 1.2 Eos # (Auto) 0.0 Baso # (Auto) 0.1 Abs Immat Gran (auto) 0.06 H Absolute Neuts (auto) 7.4 Absolute Nucleated RBC 0.050 H Nucleated RBC % (auto) 0.4 H Sodium 135 Potassium 4.6 Chloride 93 L Carbon Dioxide 25 Anion Gap 22 H BUN 43 H Creatinine 3.44 H Estim Creat Clear Calc 35.6 Estimated GFR 18 Random Glucose 96 Calcium 8.4 Ur Random Sodium 42.0 Urine Creatinine 388.74 06/01/20 14:18 WBC RBC Hgb Hct MCV MCH MCHC RDW Plt Count MPV Immature Gran % (Auto) Neut % (Auto) Lymph % (Auto) [facility] % (Auto) Eos % (Auto) Baso % (Auto) Lymph # (Auto) [facility] # (Auto) Eos # (Auto) Baso # (Auto) Abs Immat Gran (auto) Absolute Neuts (auto) Absolute Nucleated RBC Nucleated RBC % (auto) Sodium Potassium Chloride Carbon Dioxide Anion Gap BUN Creatinine Estim Creat Clear Calc Estimated GFR Random Glucose Calcium Ur Random Sodium Cancelled Urine Creatinine ITS Impressions Chest X-Ray 05/31/20 00:00 IMPRESSION: Cardiomegaly in the setting of interstitial prominence suggests volume overload. An infiltrate is also within the differential. Follow-up imaging recommended status post treatment to ensure resolution. Retroperitoneum Ultrasound 06/01/20 00:00 IMPRESSION: -No renal calculi or hydronephrosis of either kidney. -Mild focal renal cortical thinning of the midpole right kidney suggesting likely scarring from prior infection. -Small left renal cyst. Assessment and Plan (1) Alcohol withdrawal syndrome: Status: Acute (2) Depression: Status: Inactive (3) HTN (hypertension): Status: Acute (4) Sleep apnea: Status: Acute Assessment and Plan: hospital d#3 60yo M with PMHx significant EtOH abuse brought in from senior living with EtOH withdrawal # MERLIN, likely prerenal with FENa 0.3% - will give IV NS bolus and increase NS rate, consult Nephrology,d/c AIDAN-I + allopurinol # EtOH withdrawal - continue phenobarbital taper; got extra IM dose yesterday - CARE team counseling - B-vitamins # hypoMg - repleted, monitor # new-onset AF/RVR - rate-controlled on metoprolol - not an AC candidate due to severe EtOH abuse, fall risk # MJ - continue CPAP # HTN - continue metoprolol, stopped lisniopril # gout - hold allopurinol # mood disorder - fluoxetine + duloxetine # VTE ppx - LMWH
[2020-06-01] MEDS: PHENobarbitaL 30 MG TABLET PO (21:38)
[2020-06-02] VITALS: BP 156/85; PULSE 67; RESP 20; TEMP 36.7; O2SAT 96
[2020-06-02] MEDS: Heparin Sodium,Porcine 5,000 UNIT/ML VIAL 5000 UNIT SUBCUT ×3 (00:56→17:25)
[2020-06-02] MEDS: 0.9 % Sodium Chloride 1,000 ML 150 ML IVCONT ×4 (00:56→21:11)
[2020-06-02 05:25] VITALS: BP 111/74; PULSE 74
[2020-06-02] MEDS: Thiamine HCL 100 MG TABLET PO (05:25)
[2020-06-02] MEDS: Metoprolol Tartrate 50 MG TABLET PO (05:25)
[2020-06-02] MEDS: Folic Acid 1 MG TABLET PO (05:25)
[2020-06-02 06:02] LABS: Basophils Absolute Auto 0.1 X10*3/uL (0.0-0.2); Basophils Percent Auto 0.4 % (0-2); Eosinophils Percent Auto 0.3 % (0-4); Hematocrit 44.4 % (42-52); Hemoglobin 14.3 g/dl (14.0-18.0); Imm Gran Abs Auto 0.08 X10*3/uL (0.00-0.03); Imm Gran Pct Auto 0.7 % (0.0-0.4); Lymphocytes Absolute Auto 3.1 X10*3/uL (1.2-4.9); Lymphocytes Percent Auto 26.3 % (20-40); MANUAL DIFF FLAG NO; Mean Corpuscular HGB Conc 32.2 g/dl (31.0-36.0); Mean Corpuscular Hemoglobin 35.3 pg (27.0-33.0); Mean Corpuscular Volume 109.6 fL (80-98); Mean Platelet Volume 11.8 fL (9.4-12.4); Monocytes Absolute Auto 1.4 X10*3/uL (0.1-1.2); Monocytes Percent Auto 11.7 % (2-11); NRBC Pct Auto 0.5 /100WBC (0.0-0.2); Neutrophils Absolute Auto 7.1 X10*3/uL (2.0-8.3); Neutrophils Percent Auto 60.6 % (45-73); Platelet Count 241 X10*3/uL (160-400); Red Blood Count 4.05 X10*6/uL (4.60-5.80); Red Cell Distribution Width 13.2 % (11.0-16.0); White Blood Count 11.7 X10*3/uL (4.8-10.8)
[2020-06-02 06:29] LABS: Alanine Aminotransferase 37 U/L (0-40); Albumin Level 3.4 g/dL (3.5-5.0); Alkaline Phosphatase 99 U/L (39-117); Anion Gap 24 (12-20); Aspartate Amino Transferase 102 U/L (5-37); Blood Urea Nitrogen 54 mg/dL (9-16); Calcium 8.1 mg/dL (8.4-10.2); Carbon Dioxide 21 mmol/L (22-29); Chloride 95 mmol/L (96-108); Creatinine Clr Calc Pharmacy 30.7; Estimated Glomerular Filt Rate 15; Glucose Random 82 mg/dL (60-115); Magnesium 2.1 mg/dL (1.6-2.6); Potassium 4.5 mmol/l (3.3-5.1); Sodium 135 mmol/L (135-145); Total Protein 7.2 g/dL (6.5-8.0)
[2020-06-02 06:38] LABS: Anion Gap 23 (12-20); Blood Urea Nitrogen 56 mg/dL (9-16); Calcium 8.1 mg/dL (8.4-10.2); Carbon Dioxide 22 mmol/L (22-29); Chloride 95 mmol/L (96-108); Creatinine Clr Calc Pharmacy 30.7; Estimated Glomerular Filt Rate 15; Glucose Random 82 mg/dL (60-115); Potassium 4.6 mmol/l (3.3-5.1); Sodium 135 mmol/L (135-145)
[2020-06-02 08:00] VITALS: BP 107/53; PULSE 70; RESP 20; O2SAT 91
[2020-06-02] MEDS: DULoxetine HCl 60 MG CAPSULE.DR PO (08:28)
[2020-06-02] MEDS: FLUoxetine HCl 20 MG CAPSULE 40 MG PO (08:28)
[2020-06-02] MEDS: PHENobarbitaL 30 MG TABLET PO ×2 (08:28→21:12)
[2020-06-02] MEDS: Magnesium Oxide 400 MG TABLET PO ×2 (08:28→17:25)
--- NOTE | 2020-06-02 08:29 | MHC.CM.PN ---
in an attempt to follow up on yesterday's cm direction and complete a dc plan pt was visited this morning, however pt continues to be disoriented c time and situation; AMS- disoriented and drowsy; and pt has garbled speech. dc planning is deferred to a time when patient can participate. cm to cont. to follow.
[2020-06-02] MEDS: 0.9 % Sodium Chloride 500 ML 999 ML IV ×2 (10:52→11:24)
[2020-06-02 12:06] VITALS: BP 155/96; PULSE 68; RESP 16; O2SAT 93
--- NOTE | 2020-06-02 14:26 | PM.PNNEP ---
Subjective Subjective Date of Service: 06/02/20 Principal diagnosis: alcohol withdrawal, atrial fibrillation Interval history: Confused.Not verbalizing Physical Exam Vital Signs: Vital Signs: Last Vital Signs Temp 98.0 F 06/02/20 00:00 Pulse 68 06/02/20 12:06 Resp 16 06/02/20 12:06 BP 155/96 H 06/02/20 12:06 Pulse Ox 93 06/02/20 12:06 Body Mass Index 46.6 Const: General: ill appearing Neck: Neck: Yes supple Resp: Auscultation: rhonchi Cardio: Heart sounds: no click, no murmurs and no rubs Skin: Trauma: no lacerations or abrasions Neuro: Motor exam (neuro): No Asterixis during motor activity present Assessment & Plan Assessment and plan (1) Acute kidney failure: Problem details: Most likely has ATN; He was on ACEi/NSAID- could have contributed to ischemic ATN SEdiments bland KeepI > O Agree with IVF need to r/o obtruction Status: Acute
[2020-06-02 15:43] VITALS: BP 119/77; PULSE 81; RESP 18; TEMP 36.8; O2SAT 91
--- NOTE | 2020-06-02 17:00 | HO.PM.IMPN ---
Subjective Subjective Date of Service: 06/02/20 Interval History: still confused unable to obtain meaningful ROS Physical Exam Vital Signs: Vital Signs: Last Vital Signs Temp 98.3 F 06/02/20 15:43 Pulse 81 06/02/20 15:43 Resp 18 06/02/20 15:43 BP 119/77 06/02/20 15:43 Pulse Ox 91 L 06/02/20 15:43 Body Mass Index 46.6 Gen: in no acute distress HEENT: sclera anicteric, moist mucus membranes Neck: supple Lungs: clear to auscultation bilaterally Heart: regular rate and rhythm, no murmurs Abd: soft, non-tender, non-distended, morbidly obese Ext: no edema Skin: warm/well-perfused Neuro: disoriented Objective Data Current Medications Generic Name Dose Route Start Last Admin Trade Name Freq PRN Reason Stop Dose Admin Duloxetine HCl 60 mg 05/30/20 09:00 06/02/20 08:28 Duloxetine Hcl 60 Mg Capsule.Dr PO 60 mg DAILY JESSICA Administration Fluoxetine HCl 40 mg 05/30/20 09:00 06/02/20 08:28 Fluoxetine Hcl 20 Mg Capsule PO 40 mg DAILY JESSICA Administration Folic Acid 1 mg 05/30/20 06:00 06/02/20 05:25 Folic Acid 1 Mg Tablet PO 1 mg Q24H JESSICA Administration Heparin Sodium (Porcine) 5,000 unit 05/30/20 01:57 06/02/20 10:52 Heparin Sodium,Porcine 5,000 Unit/Ml Vial SUBCUT 5,000 unit Q8H JESSICA Administration Sodium Chloride 1,000 mls @ 150 mls/hr 05/31/20 09:00 06/02/20 14:11 Ns IVCONT 150 mls/hr .[id number] JESSICA Administration Magnesium Oxide 400 mg 05/30/20 17:30 06/02/20 08:28 Magnesium Oxide 400 Mg Tablet PO 400 mg BIDPC JESSICA Administration Medication 1 each 05/30/20 09:00 No Benzodiazepines MISCELLANE DAILY JESSICA Metoprolol Tartrate 100 mg 06/02/20 21:00 Metoprolol Tartrate 50 Mg Tablet PO BID JESSICA Protocol Phenobarbital 30 mg 06/01/20 21:00 06/02/20 08:28 Phenobarbital 30 Mg Tablet PO 06/03/20 09:01 30 mg BID JESSICA Administration Protocol Sodium Chloride 3 ml 05/30/20 08:00 06/02/20 15:33 0.9 % Sodium Chloride Flush 3 Ml Syringe IVFLUSH Not Given QSHIFT [facility] Thiamine HCl 100 mg 05/30/20 06:00 06/02/20 05:25 Thiamine Hcl 100 Mg Tablet PO 100 mg Q24H JESSICA Administration Labs CBC & Chem 7: 06/02/20 05:19 06/02/20 05:19 Labs: Laboratory Results - last 24 hr 06/02/20 06/02/20 06/02/20 05:19 05:19 05:19 WBC 11.7 H RBC 4.05 L Hgb 14.3 Hct 44.4 MCV 109.6 H MCH 35.3 H MCHC 32.2 RDW 13.2 Plt Count 241 MPV 11.8 Immature Gran % (Auto) 0.7 H Neut % (Auto) 60.6 Lymph % (Auto) 26.3 [place] % (Auto) 11.7 H Eos % (Auto) 0.3 Baso % (Auto) 0.4 Lymph # (Auto) 3.1 [place] # (Auto) 1.4 H Eos # (Auto) 0.0 Baso # (Auto) 0.1 Abs Immat Gran (auto) 0.08 H Absolute Neuts (auto) 7.1 Absolute Nucleated RBC 0.060 H Nucleated RBC % (auto) 0.5 H Sodium 135 135 Potassium 4.6 4.5 Chloride 95 L 95 L Carbon Dioxide 22 21 L Anion Gap 23 H 24 H BUN 56 H 54 H Creatinine 3.99 H 3.99 H Estim Creat Clear Calc 30.7 30.7 Estimated GFR 15 15 Random Glucose 82 82 Calcium 8.1 L 8.1 L Magnesium 2.1 Total Bilirubin 1.0 AST 102 H ALT 37 Alkaline Phosphatase 99 Total Creatine Kinase 70 Total Protein 7.2 Albumin 3.4 L Assessment and Plan (1) Alcohol withdrawal syndrome: Status: Acute (2) Depression: Status: Inactive (3) HTN (hypertension): Status: Acute (4) Sleep apnea: Status: Acute Assessment and Plan: hospital d#4 60yo M with PMHx significant EtOH abuse brought in from shelter with EtOH withdrawal # MERLIN, likely prerenal with FENa 0.3% - worsening SCr, give another IV NS bolus, continue continuous IV NS, Nephrology following, AIDAN-I held # EtOH withdrawal - continue phenobarbital taper; got extra IM dose 05/31/20 - CARE team counseling when more awake - B-vitamins # toxic-metabolic encephalopathy - due to EtOH withdrawal # hypoMg - repleted, monitor # transaminasemia - mild EtOH hepatitis, monitor # new-onset AF/RVR - rate-controlled on metoprolol - not an AC candidate due to severe EtOH abuse, fall risk # MJ - continue CPAP # HTN - continue metoprolol, stopped lisinopril due to MERLIN # gout - hold allopurinol # mood disorder - fluoxetine + duloxetine # VTE ppx - LMWH
[2020-06-02 21:12] VITALS: BP 131/77; PULSE 73
[2020-06-02] MEDS: Metoprolol Tartrate 50 MG TABLET 100 MG PO (21:12)
[2020-06-03] VITALS (9 sets, daily range): BP systolic 123–160; BP diastolic 67–84; PULSE 62–107; RESP 15–22; TEMP 36.3–36.9; O2SAT 93–98
[2020-06-03] MEDS: 0.9 % Sodium Chloride 1,000 ML 150 ML IVCONT ×3 (03:16→16:40)
[2020-06-03] MEDS: Heparin Sodium,Porcine 5,000 UNIT/ML VIAL 5000 UNIT SUBCUT ×3 (03:17→18:08)
[2020-06-03] MEDS: Folic Acid 1 MG TABLET PO (05:28)
[2020-06-03] MEDS: Thiamine HCL 100 MG TABLET PO (05:28)
[2020-06-03 06:44] LABS: Hematocrit 41.9 % (42-52); Hemoglobin 13.7 g/dl (14.0-18.0); Mean Corpuscular HGB Conc 32.7 g/dl (31.0-36.0); Mean Corpuscular Hemoglobin 36.2 pg (27.0-33.0); Mean Platelet Volume 11.3 fL (9.4-12.4); NRBC Pct Auto 0.8 /100WBC (0.0-0.2); Platelet Count 222 X10*3/uL (160-400); Red Blood Count 3.78 X10*6/uL (4.60-5.80); Red Cell Distribution Width 13.3 % (11.0-16.0); White Blood Count 11.2 X10*3/uL (4.8-10.8)
[2020-06-03 06:48] LABS: Mean Corpuscular Volume 110.8 fL (80-98)
[2020-06-03 07:00] LABS: INTERNATIONAL NORM RATIO 1.3 (0.9-1.1); Prothrombin Time 14.9 SEC (10.8-13.0)
[2020-06-03 07:13] LABS: Anion Gap 23 (12-20); Blood Urea Nitrogen 61 mg/dL (9-16); Calcium 7.6 mg/dL (8.4-10.2); Carbon Dioxide 17 mmol/L (22-29); Chloride 98 mmol/L (96-108); Creatinine Clr Calc Pharmacy 31.6; Estimated Glomerular Filt Rate 16; Glucose Random 66 mg/dL (60-115); Potassium 4.9 mmol/l (3.3-5.1); Sodium 133 mmol/L (135-145)
[2020-06-03 07:16] LABS: Alanine Aminotransferase 37 U/L (0-40); Albumin Level 3.3 g/dL (3.5-5.0); Alkaline Phosphatase 94 U/L (39-117); Anion Gap 23 (12-20); Aspartate Amino Transferase 88 U/L (5-37); Bilirubin Total 0.7 mg/dL (0.0-1.0); Blood Urea Nitrogen 62 mg/dL (9-16); Calcium 7.8 mg/dL (8.4-10.2); Carbon Dioxide 19 mmol/L (22-29); Chloride 97 mmol/L (96-108); Creatinine Clr Calc Pharmacy 30.5; Estimated Glomerular Filt Rate 15; Glucose Random 75 mg/dL (60-115); Sodium 134 mmol/L (135-145); Total Protein 6.8 g/dL (6.5-8.0)
[2020-06-03] MEDS: Metoprolol Tartrate 50 MG TABLET 100 MG PO ×2 (09:38→22:14)
[2020-06-03] MEDS: FLUoxetine HCl 20 MG CAPSULE 40 MG PO (09:38)
[2020-06-03] MEDS: DULoxetine HCl 60 MG CAPSULE.DR PO (09:38)
[2020-06-03] MEDS: Magnesium Oxide 400 MG TABLET PO ×2 (09:38→18:08)
[2020-06-03] MEDS: 0.9 % Sodium Chloride 500 ML 999 ML IV ×2 (09:38→10:44)
[2020-06-03] MEDS: PHENobarbitaL 30 MG TABLET PO (09:38)
[2020-06-03 09:59] LABS: Pt Ventilation O2% ROOM AIR
[2020-06-03 10:03] LABS: ABG PCO2 47 mmhg (32-45); Base Excess ABG -9.8; HCO3 ABG 18 mmol/l (22-26); Oxygen Saturation ABG 90.6 %; PO2 ABG 73 mmhg (83-108)
[2020-06-03 10:32] LABS: Salicylate < 5.0 mg/dL (15-30)
[2020-06-03 10:34] LABS: Osmolality, Serum 300 mosm/kg (281-305)
[2020-06-03] MEDS: HYDROmorphone HCl 0.5 MG/0.5 ML SYRINGE 0.25 MG IVPUSH (11:05)
[2020-06-03 11:09] LABS: Lymphocytes Absolute Manual 1.9 X10*3/uL (0.6-4.8); Lymphocytes Percent Manual 17 % (20-40); Monocytes Absolute Manual 0.8 X10*3/uL (0.0-1.2); Monocytes Percent Manual 7 % (2-11); Neutrophils Percent Manual 76 % (45-73); Nucleated Red Blood Cells 1 /100WBC (0-0)
[2020-06-03 11:11] LABS: Burr Cells 2+; Macrocytosis 1+; Microcytosis 1+; RBC Morphology NOTED
[2020-06-03 11:12] LABS: Tear Drop Cells 1+
[2020-06-03 11:14] LABS: Platelet Estimate NORMAL (NORMAL); Platelet Morphology Comment NORMAL; Polychromasia 1+
--- NOTE | 2020-06-03 11:32 | PM.PNNEP ---
Subjective Subjective Date of Service: 06/03/20 Principal diagnosis: alcohol withdrawal, atrial fibrillation Interval history: still confused arousible Physical Exam Vital Signs: Vital Signs: Last Vital Signs Temp 98.1 F 06/03/20 08:00 Pulse 81 06/03/20 09:38 Resp 15 06/03/20 11:05 BP 150/84 H 06/03/20 09:38 Pulse Ox 93 06/03/20 08:00 Body Mass Index 46.6 Const: General: ill appearing Neck: Neck: Yes supple Resp: Auscultation: rhonchi Cardio: Heart sounds: no click, no murmurs and no rubs Skin: Trauma: no lacerations or abrasions Neuro: Motor exam (neuro): No Asterixis during motor activity present Assessment & Plan Assessment and plan (1) Acute kidney failure: Problem details: Most likely has ATN; He was on ACEi/NSAID- could have contributed to ischemic ATN SEdiments bland Keep I > O Agree with IVF No obstruction by USG High AG Acidosis WITH Resp acidosis Osm Gap normal at 4.5 Probably due to MERLIN Status: Acute
[2020-06-03 11:57] LABS: Band Neutrophils Percent 0 % (3-5); Neutrophils Absolute Manual 8.5 X10*3/uL (2.2-7.9)
--- NOTE | 2020-06-03 12:55 | P.PNIM_ITS ---
Subjective Subjective Date of Service: 06/03/20 Interval History: Still very disoriented, unable to obtain ROS from patient. Physical Exam Vital Signs: Vital Signs: Last Vital Signs Temp 98.1 F 06/03/20 08:00 Pulse 81 06/03/20 09:38 Resp 15 06/03/20 11:05 BP 150/84 H 06/03/20 09:38 Pulse Ox 93 06/03/20 08:00 Body Mass Index 46.6 Gen: disoriented in no acute distress HEENT: PERRL sclera anicteric, moist mucus membranes Neck: supple Lungs: clear to auscultation bilaterally Heart: regular rate and rhythm, no murmurs Abd: soft, non-tender, non-distended, morbidly obese Ext: no edema Skin: warm/well-perfused Neuro: disoriented Objective Data Current Medications Generic Name Dose Route Start Last Admin Trade Name Freq PRN Reason Stop Dose Admin Duloxetine HCl 60 mg 05/30/20 09:00 06/03/20 09:38 Duloxetine Hcl 60 Mg Capsule.Dr PO 60 mg DAILY JESSICA Administration Fluoxetine HCl 40 mg 05/30/20 09:00 06/03/20 09:38 Fluoxetine Hcl 20 Mg Capsule PO 40 mg DAILY JESSICA Administration Folic Acid 1 mg 05/30/20 06:00 06/03/20 05:28 Folic Acid 1 Mg Tablet PO 1 mg Q24H JESSICA Administration Heparin Sodium (Porcine) 5,000 unit 05/30/20 01:57 06/03/20 09:41 Heparin Sodium,Porcine 5,000 Unit/Ml Vial SUBCUT 5,000 unit Q8H JESSICA Administration Sodium Chloride 1,000 mls @ 150 mls/hr 06/03/20 09:45 06/03/20 09:30 Ns IVCONT 150 mls/hr .[id number] JESSICA Administration Magnesium Oxide 400 mg 05/30/20 17:30 06/03/20 09:38 Magnesium Oxide 400 Mg Tablet PO 400 mg BIDPC JESSICA Administration Medication 1 each 05/30/20 09:00 No Benzodiazepines MISCELLANE DAILY JESSICA Metoprolol Tartrate 100 mg 06/02/20 21:00 06/03/20 09:38 Metoprolol Tartrate 50 Mg Tablet PO 100 mg BID JESSICA Administration Protocol Sodium Chloride 3 ml 05/30/20 08:00 06/03/20 08:42 0.9 % Sodium Chloride Flush 3 Ml Syringe IVFLUSH Not Given QSHIFT JESSICA Thiamine HCl 100 mg 05/30/20 06:00 06/03/20 05:28 Thiamine Hcl 100 Mg Tablet PO 100 mg Q24H JESSICA Administration Labs CBC & Chem 7: 06/03/20 05:23 06/03/20 05:23 Labs: Laboratory Results - last 24 hr 06/03/20 06/03/20 06/03/20 05:23 05:23 05:23 WBC 11.2 H RBC 3.78 L Hgb 13.7 L Hct 41.9 L MCV 110.8 H MCH 36.2 H MCHC 32.7 RDW 13.3 Plt Count 222 MPV 11.3 Immature Gran % (Auto) Cancelled Neut % (Auto) Cancelled Lymph % (Auto) Cancelled [place] % (Auto) Cancelled Eos % (Auto) Cancelled Baso % (Auto) Cancelled Lymph # (Auto) Cancelled [place] # (Auto) Cancelled Eos # (Auto) Cancelled Baso # (Auto) Cancelled Abs Immat Gran (auto) Cancelled Absolute Neuts (auto) Cancelled Absolute Nucleated RBC 0.090 H Nucleated RBC % (auto) 0.8 H Neutrophils % (Manual) 76 H Band Neutrophils % 0 L Lymphocytes % (Manual) 17 L Monocytes % (Manual) 7 Abs Neuts (Manual) 8.5 H Lymphocytes # (Manual) 1.9 Monocytes # (Manual) 0.8 Nucleated RBCs 1 H Platelet Estimate NORMAL Plt Morphology Comment NORMAL RBC Morphology NOTED Polychromasia 1+ Microcytosis 1+ Macrocytosis 1+ Tear Drop Cells 1+ [place] Cells 2+ PT INR ABG pH ABG pCO2 ABG pO2 ABG HCO3 ABG O2 Saturation ABG Base Excess Oxygen Given Sodium 133 L 134 L Potassium 4.9 5.0 Chloride 98 97 Carbon Dioxide 17 L 19 L Anion Gap 23 H 23 H BUN 61 H 62 H Creatinine 3.87 H 4.01 H* Estim Creat Clear Calc 31.6 30.5 Estimated GFR 16 15 Random Glucose 66 75 Osmolality Calcium 7.6 L D 7.8 L Total Bilirubin 0.7 AST 88 H ALT 37 Alkaline Phosphatase 94 Total Protein 6.8 Albumin 3.3 L Salicylates 06/03/20 06/03/20 06/03/20 05:23 09:50 09:59 WBC RBC Hgb Hct MCV MCH MCHC RDW Plt Count MPV Immature Gran % (Auto) Neut % (Auto) Lymph % (Auto) [place] % (Auto) Eos % (Auto) Baso % (Auto) Lymph # (Auto) [place] # (Auto) Eos # (Auto) Baso # (Auto) Abs Immat Gran (auto) Absolute Neuts (auto) Absolute Nucleated RBC Nucleated RBC % (auto) Neutrophils % (Manual) Band Neutrophils % Lymphocytes % (Manual) Monocytes % (Manual) Abs Neuts (Manual) Lymphocytes # (Manual) Monocytes # (Manual) Nucleated RBCs Platelet Estimate Plt Morphology Comment RBC Morphology Polychromasia Microcytosis Macrocytosis Tear Drop Cells Elaine Cells PT 14.9 H INR 1.3 H ABG pH 7.20 L* ABG pCO2 47 H ABG pO2 73 L ABG HCO3 18 L ABG O2 Saturation 90.6 ABG Base Excess -9.8 Oxygen Given ROOM AIR Sodium Potassium Chloride Carbon Dioxide Anion Gap BUN Creatinine Estim Creat Clear Calc Estimated GFR Random Glucose Osmolality 300 Calcium Total Bilirubin AST ALT Alkaline Phosphatase Total Protein Albumin Salicylates 06/03/20 09:59 WBC RBC Hgb Hct MCV MCH MCHC RDW Plt Count MPV Immature Gran % (Auto) Neut % (Auto) Lymph % (Auto) [place] % (Auto) Eos % (Auto) Baso % (Auto) Lymph # (Auto) [place] # (Auto) Eos # (Auto) Baso # (Auto) Abs Immat Gran (auto) Absolute Neuts (auto) Absolute Nucleated RBC Nucleated RBC % (auto) Neutrophils % (Manual) Band Neutrophils % Lymphocytes % (Manual) Monocytes % (Manual) Abs Neuts (Manual) Lymphocytes # (Manual) Monocytes # (Manual) Nucleated RBCs Platelet Estimate Plt Morphology Comment RBC Morphology Polychromasia Microcytosis Macrocytosis Tear Drop Cells Elaine Cells PT INR ABG pH ABG pCO2 ABG pO2 ABG HCO3 ABG O2 Saturation ABG Base Excess Oxygen Given Sodium Potassium Chloride Carbon Dioxide Anion Gap BUN Creatinine Estim Creat Clear Calc Estimated GFR Random Glucose Osmolality Calcium Total Bilirubin AST ALT Alkaline Phosphatase Total Protein Albumin Salicylates < 5.0 L Assessment and Plan (1) Alcohol withdrawal syndrome: Status: Acute (2) Depression: Status: Inactive (3) HTN (hypertension): Status: Acute (4) Sleep apnea: Status: Acute Assessment and Plan: hospital d#5 60yo M with PMHx significant EtOH abuse brought in from [facility] with EtOH withdrawal # metabolic acidosis + respiratory acidosis (expected pCO2 36 based on Talbot formula) - due to MERLIN + likely MJ/OHS - CPAP for all naps # MERLIN, likely prerenal with FENa 0.3% - worsening SCr, give another IV NS bolus, continue continuous IV NS, Nephrology following, AIDAN-I held, osmolal gap 8, CPK normal, may need biopsy # EtOH withdrawal - continue phenobarbital taper; got extra IM dose 05/31/20 - CARE team counseling when more awake - B-vitamins # toxic-metabolic encephalopathy - due to EtOH withdrawal + MERLIN # hypoMg - repleted, monitor # transaminasemia - mild EtOH hepatitis, monitor # new-onset AF/RVR - rate-controlled on metoprolol tartrate - not an AC candidate due to severe EtOH abuse, fall risk - Cardiology consulted; echocardiogram done in October showed normal LV systolic function with grade 2 diastolic dysfunction and moderate left atrial enlargement and [id number] pulmonary hypertension # HTN - continue metoprolol, stopped lisinopril due to MERLIN # gout - hold allopurinol # mood disorder - fluoxetine + duloxetine # VTE ppx - LMWH
--- NOTE | 2020-06-03 19:39 | PC.NURSE ---
PT brother called for an update. number entered into chart wrong. Correct number for Brother, Ortiz Galindo, . Updated brother, notified Dr Nieto of number. Pt was lethargic this morning. Isaías blood gases, pH 7.20 PCO2 47, PO2 47, HCO3 18. Pt placed on cpap per MD orderer. Pt ripping cpap mask off. Notified MD, pt given 0.25 of Dilaudid to make more comfortable, pt tolerating cpap. Occasionally ripping cpap off, reorient pt and state it will help make him better. Pt understanding much better than AM, lest restless, and following directions better.
[2020-06-04] VITALS (9 sets, daily range): BP systolic 103–183; BP diastolic 72–113; PULSE 88–107; RESP 18–26; TEMP 36–36.8; O2SAT 92–100
--- NOTE | 2020-06-04 | XR_ITS ---
EXAMINATION: XR CHEST CLINICAL INFORMATION: Leukocytosis COMPARISON: Previous chest x-ray 05/31/2020 TECHNIQUE: Frontal view of the chest was obtained. FINDINGS: The cardiac silhouette appears enlarged but similar to previous chest x-ray. Hilar and mediastinal contours are unremarkable. May be subsegmental atelectasis at the right lung base. The lungs are otherwise clear. There is no pleural effusion or pneumothorax. Visualized bony structures are unremarkable. XR/XR chest 1V IMPRESSION: Stable enlargement of the cardiac silhouette. Subsegmental atelectasis of the right lung base.
--- NOTE | 2020-06-04 | CT_ITS ---
EXAMINATION: CT HEAD WITHOUT CONTRAST CLINICAL INFORMATION: AMS COMPARISON: CT brain 11/10/2019 TECHNIQUE: Contiguous axial imaging was performed from the skull base to vertex without intravenous administration of contrast. This CT examination was performed using dose optimization techniques as appropriate, variously including the following: *Automated exposure control *Adjustment of mA and/or kV according to patient size (this includes techniques or standardized protocols for targeted exams where dose is matched to indication/reason for exam; i.e. extremities or head) *Use of iterative reconstruction technique DLP: 1037 mGy-cm FINDINGS: There is no evidence of acute intracranial hemorrhage or territorial infarction. No abnormal mass effect or midline shift is seen. Mir to white matter differentiation is well preserved. No extra-axial fluid collections are identified. The ventricles are normal in size. There is no abnormal attenuation within the brain parenchyma. The osseous structures and soft tissues are normal. The mastoid air cells and visualized portions of the paranasal sinuses are well aerated. CT/CT head/brain wo con IMPRESSION: No acute intracranial process seen. No change from previous exam 11/10/2019
[2020-06-04] MEDS: 0.9 % Sodium Chloride 1,000 ML 150 ML IVCONT ×2 (00:05→06:40)
[2020-06-04] MEDS: Heparin Sodium,Porcine 5,000 UNIT/ML VIAL 5000 UNIT SUBCUT ×3 (03:37→17:58)
[2020-06-04] MEDS: Folic Acid 1 MG TABLET PO (06:39)
[2020-06-04] MEDS: Thiamine HCL 100 MG TABLET PO (06:39)
[2020-06-04 07:57] LABS: Magnesium 2.3 mg/dL (1.6-2.6)
[2020-06-04 08:27] LABS: Basophils Absolute Auto 0.1 X10*3/uL (0.0-0.2); Basophils Percent Auto 0.4 % (0-2); Eosinophils Percent Auto 0.1 % (0-4); Hematocrit 40.7 % (42-52); Imm Gran Abs Auto 0.09 X10*3/uL (0.00-0.03); Imm Gran Pct Auto 0.7 % (0.0-0.4); Lymphocytes Absolute Auto 2.7 X10*3/uL (1.2-4.9); Lymphocytes Percent Auto 20.1 % (20-40); MANUAL DIFF FLAG SCAN; Mean Corpuscular HGB Conc 31.9 g/dl (31.0-36.0); Mean Corpuscular Hemoglobin 36.1 pg (27.0-33.0); Mean Platelet Volume 11.3 fL (9.4-12.4); Monocytes Absolute Auto 3.1 X10*3/uL (0.1-1.2); Monocytes Percent Auto 23.3 % (2-11); Neutrophils Absolute Auto 7.5 X10*3/uL (2.0-8.3); Neutrophils Percent Auto 55.4 % (45-73); Platelet Count 246 X10*3/uL (160-400); SCAN SMEAR FLAG 1; White Blood Count 13.5 X10*3/uL (4.8-10.8)
[2020-06-04 08:41] LABS: Anion Gap 23 (12-20); Blood Urea Nitrogen 66 mg/dL (9-16); Calcium 7.6 mg/dL (8.4-10.2); Carbon Dioxide 16 mmol/L (22-29); Chloride 101 mmol/L (96-108); Creatinine Clr Calc Pharmacy 28.7; Estimated Glomerular Filt Rate 14; Glucose Random 73 mg/dL (60-115); Potassium 4.8 mmol/l (3.3-5.1); Sodium 135 mmol/L (135-145)
--- NOTE | 2020-06-04 09:30 | PM.PNNEP ---
Subjective Subjective Date of Service: 06/04/20 Principal diagnosis: alcohol withdrawal, atrial fibrillation Interval history: Events noted No change in mentation Physical Exam Vital Signs: Vital Signs: Last Vital Signs Temp 97.4 F 06/03/20 23:46 Pulse 90 06/03/20 23:46 Resp 20 06/04/20 00:55 BP 151/67 H 06/03/20 23:46 Pulse Ox 94 06/03/20 23:46 Body Mass Index 46.6 Const: General: ill appearing Neck: Neck: Yes supple Resp: Auscultation: rhonchi Cardio: Heart sounds: no click, no murmurs and no rubs Skin: Trauma: no lacerations or abrasions Neuro: Motor exam (neuro): No Asterixis during motor activity present Assessment & Plan Assessment and plan (1) Acute kidney failure: Problem details: Most likely has ATN; He was on ACEi/NSAID- could have contributed to ischemic ATN Sediments bland Keep I = O Decrease IVF to 40 cc/hr Insert nazario and obtain urine studies No obstruction by USG High AG Acidosis WITH Resp acidosis Osm Gap normal at 4.5 Probably due to MERLIN Status: Acute Time Spent With Patient Time: Total time spent is greater than 50% in coordination of care (as documented) at patient's floor/unit and/or counseling patient:
[2020-06-04] MEDS: Thiamine HCL 500 MG in 0.9 % Sodium Chloride 100 ML 210 MG IV ×2 (09:52→18:14)
[2020-06-04 09:57] LABS: Mean Corpuscular Volume 113.1 fL (80-98)
[2020-06-04 10:00] LABS: SLIDE REVIEW VERIFIED
[2020-06-04 10:48] LABS: Pt Ventilation O2% ROOM AIR
[2020-06-04 10:56] LABS: ABG PCO2 48 mmhg (32-45); Base Excess ABG -10.6; HCO3 ABG 18 mmol/l (22-26); Oxygen Saturation ABG 58.5 %
[2020-06-04 11:00] LABS: pH ABG 7.19 (7.35-7.45)
[2020-06-04 11:01] LABS: PO2 ABG 35 mmhg (83-108)
--- NOTE | 2020-06-04 11:04 | HO.PM.IMPN ---
Subjective Subjective Date of Service: 06/04/20 Interval History: Continued lethargy, difficult to arouse, speech unintelligible. RN was able to get a hold of his brother Compa with updated phone number. I called and left a message for Compa to call back. SCr worsening. Having watery diarrhea. Unable to take POs. Unable to obtain ROS due to encephalopathy. Physical Exam Vital Signs: Vital Signs: Last Vital Signs Temp 96.8 F 06/04/20 10:37 Pulse 95 06/04/20 10:37 Resp 18 06/04/20 10:37 BP 163/82 H 06/04/20 10:37 Pulse Ox 93 06/04/20 10:37 Body Mass Index 46.6 Gen: disoriented, somnolent HEENT: PERRL sclera anicteric, moist mucus membranes Neck: supple Lungs: clear to auscultation bilaterally Heart: regular rate and rhythm, no murmurs Abd: soft, non-tender, non-distended, morbidly obese Ext: no edema Skin: warm/well-perfused Neuro: disoriented, unintelligible speech Objective Data Current Medications Generic Name Dose Route Start Last Admin Trade Name Freq PRN Reason Stop Dose Admin Folic Acid 1 mg 06/05/20 09:00 Folic Acid 1 Mg/0.2 Ml Syringe IVPUSH DAILY [facility] Heparin Sodium (Porcine) 5,000 unit 05/30/20 01:57 06/04/20 10:06 Heparin Sodium,Porcine 5,000 Unit/Ml Vial SUBCUT 5,000 unit Q8H JESSICA Administration Sodium Chloride 1,000 mls @ 75 mls/hr 06/03/20 09:45 06/04/20 09:55 Ns IVCONT 75 mls/hr .[id number] JESSICA Infusion Thiamine HCl 500 mg/ Sodium 105 mls @ 210 mls/hr 06/04/20 10:00 06/04/20 10:52 Chloride IV 06/06/20 02:29 Infused Q8H JESSICA Infusion Thiamine HCl 250 mg/ Sodium 102.5 mls @ 205 mls/hr 06/06/20 09:20 Chloride IV 06/06/20 09:21 DAILY ONE Medication 1 each 05/30/20 09:00 No Benzodiazepines MISCELLANE DAILY JESSICA Metoprolol Tartrate 100 mg 06/02/20 21:00 06/04/20 10:07 Metoprolol Tartrate 50 Mg Tablet PO 100 mg BID [facility] Administration Protocol Sodium Chloride 3 ml 05/30/20 08:00 06/04/20 09:52 0.9 % Sodium Chloride Flush 3 Ml Syringe IVFLUSH Not Given QSHIFT [facility] Labs CBC & Chem 7: 06/04/20 06:31 06/04/20 06:31 Labs: Laboratory Results - last 24 hr 06/03/20 06/04/20 06/04/20 05:23 06:31 06:31 WBC 13.5 H RBC 3.60 L Hgb 13.0 L Hct 40.7 L MCV 113.1 H MCH 36.1 H MCHC 31.9 RDW 14.0 Plt Count 246 MPV 11.3 Immature Gran % (Auto) 0.7 H Neut % (Auto) 55.4 Lymph % (Auto) 20.1 [place] % (Auto) 23.3 H Eos % (Auto) 0.1 Baso % (Auto) 0.4 Lymph # (Auto) 2.7 [place] # (Auto) 3.1 H Eos # (Auto) 0.0 Baso # (Auto) 0.1 Abs Immat Gran (auto) 0.09 H Absolute Neuts (auto) 7.5 Absolute Nucleated RBC 0.140 H Nucleated RBC % (auto) 1.0 H Neutrophils % (Manual) 76 H Band Neutrophils % 0 L Lymphocytes % (Manual) 17 L Monocytes % (Manual) 7 Abs Neuts (Manual) 8.5 H Lymphocytes # (Manual) 1.9 Monocytes # (Manual) 0.8 Nucleated RBCs 1 H Platelet Estimate NORMAL Plt Morphology Comment NORMAL RBC Morphology NOTED Polychromasia 1+ Microcytosis 1+ Macrocytosis 1+ Tear Drop Cells 1+ Elaine Cells 2+ Smear Tech's Comments VERIFIED ABG pH ABG pCO2 ABG pO2 ABG HCO3 ABG O2 Saturation ABG Base Excess Oxygen Given Sodium 135 Potassium 4.8 Chloride 101 Carbon Dioxide 16 L Anion Gap 23 H BUN 66 H Creatinine 4.26 H* Estim Creat Clear Calc 28.7 Estimated GFR 14 Random Glucose 73 Calcium 7.6 L Magnesium C-Reactive Protein 7.36 H 06/04/20 06/04/20 06:31 10:39 WBC RBC Hgb Hct MCV MCH MCHC RDW Plt Count MPV Immature Gran % (Auto) Neut % (Auto) Lymph % (Auto) [place] % (Auto) Eos % (Auto) Baso % (Auto) Lymph # (Auto) [place] # (Auto) Eos # (Auto) Baso # (Auto) Abs Immat Gran (auto) Absolute Neuts (auto) Absolute Nucleated RBC Nucleated RBC % (auto) Neutrophils % (Manual) Band Neutrophils % Lymphocytes % (Manual) Monocytes % (Manual) Abs Neuts (Manual) Lymphocytes # (Manual) Monocytes # (Manual) Nucleated RBCs Platelet Estimate Plt Morphology Comment RBC Morphology Polychromasia Microcytosis Macrocytosis Tear Drop Cells Elaine Cells Smear Tech's Comments ABG pH 7.19 L* ABG pCO2 48 H ABG pO2 35 L* ABG HCO3 18 L ABG O2 Saturation 58.5 ABG Base Excess -10.6 Oxygen Given ROOM AIR Sodium Potassium Chloride Carbon Dioxide Anion Gap BUN Creatinine Estim Creat Clear Calc Estimated GFR Random Glucose Calcium Magnesium 2.3 C-Reactive Protein Assessment and Plan (1) Alcohol withdrawal syndrome: Status: Acute (2) Depression: Status: Inactive (3) HTN (hypertension): Status: Acute (4) Sleep apnea: Status: Acute Assessment and Plan: hospital d#7 60yo M with PMHx significant EtOH abuse brought in from [facility] with EtOH withdrawal # metabolic acidosis + respiratory acidosis (expected pCO2 30-34 based on Talbot formula) - due to MERLIN + MJ/OHS - CPAP whenever sleeping, pulmonology consult # MERLIN, prerenal with FENa 0.3%, normal osmolol gap + CPK - Powers placement, check urine pr/Cr - worsening SCr despite fluids, per Nephrology d/c IV fluid rate given risk of fluid overload # acute encephalopathy - attributed to EtOH withdrawal + MERLIN - treat empirically for Wernicke's with high-dose IV thiamine - CT head, neuro consult, and EEG - hold fluoxetine + duloxetine # leukocytosis - infection screen- check UAUM/UCx, BCx, CXR, PCT, stool studies given diarrhea # EtOH withdrawal - continue phenobarbital taper; got extra IM dose 05/31/20 - CARE team counseling when more awake - B-vitamins # new-onset AF/RVR - rate-controlled on metoprolol tartrate, change PO to IV 5:1 given NPO - not an AC candidate due to severe EtOH abuse, fall risk - Cardiology consulted; echocardiogram done in October showed normal LV systolic function with grade 2 diastolic dysfunction and moderate left atrial enlargement and [id number] pulmonary hypertension # hypoMg - repleted # transaminasemia - mild EtOH hepatitis, improving # HTN - continue metoprolol, stopped lisinopril due to MERLIN # gout - hold allopurinol # mood disorder - hold fluoxetine + duloxetine # VTE ppx - LMWH
[2020-06-04 11:05] LABS: C Reactive Protein 7.36 mg/dL (< or = 0.50)
[2020-06-04 11:38] LABS: Procalcitonin 0.35 ng/mL
--- NOTE | 2020-06-04 11:44 | MHC.CM.PN ---
Received a call from Elana Galindo, Patients estranged . A message had been left yesterday requesting a return call for CM assessment. She stated that she is not involved and has no info. She directed all communication to Brother Ortiz. Call placed to rajendra Alcantar left. CM will follow.
--- NOTE | 2020-06-04 11:57 | MHC.CM.PN ---
CM assessment completed with EMR. Until HCP brother Ortiz makes contact DP TBD. He is an independent person. CM will follow.
[2020-06-04 11:58] LABS: Glucose Urine UA NEG (NEG); Leukocyte Esterase Urine NEG (NEG); Nitrite Urine NEG (NEG); PH 5.5 (5.0-8.0); Specific Gravity - Urine >= 1.030 (1.005-1.025); Urine Blood 3+ (NEG); Urine Ketones 5 MG/DL (NEG); Urine Protein 1+ MG/DL (NEG-TRACE)
[2020-06-04 12:02] LABS: Appearance Urine HAZY; Color Urine DARK YELLOW
--- NOTE | 2020-06-04 12:06 | PM.NEUROCN ---
History of Present Illness Data of Consult Service Date: 06/04/20 Primary Care Provider: Ortiz Deluca, [facility] 60 years old obese man with history of significant alcohol abuse admitted hospital few days ago with change in mental status. In spite of treatment his mental status was not improving and this consultation was requested. He was unable to provide any meaningful history. There was no evidence of any recent seizure or stroke-like symptom. He was drinking rather heavily up to 20 short somewhat cut daily on top of some other alcoholic drinks. Review of Systems Review of Systems: He was unable to provide any meaningful answers to review of system. Constitutional: Constitutional: Denies frequent falls, Denies headache(s) and Reports weakness ENT: Denies headache(s) Neurologic: Denies frequent falls, Denies headache(s) and Reports weakness PMFSH Past Medical History Medical History Alcohol dependency Anxiety Arthritis Depression Gout HTN (hypertension) Seroma due to trauma Sleep apnea Functional capacity: independent ambulation Social History Social History Household Members: Spouse Housing: House Do you presently have visiting nurse or other home services: No Smoking Status: Current every day smoker Tobacco Type: Cigarette Packs Per Day: 1 Cigarettes Per Day: 20.0 Smoked in Last 30 Days: Yes Patient Interested in Nicotine Replacement: Yes Patient Given Instructions on How to Stop Smoking: Yes Date Education Initiated: 05/30/20 Second Hand Smoke Exposure: No Use of substances other than those prescribed or required for medical reasons: No Currently Displaying Signs/Symptoms of Drug Intoxication Withdrawal: No Have you been hit, kicked, punched, or otherwise hurt by someone within the past year? If so, by whom?: No Do you feel safe in your current relationship?: Yes Is there a partner from a previous relationship who is making you feel unsafe now?: No Are you made to feel afraid or neglected: No Advance Directives: No Advance Directives Information Provided: No Do you have thoughts of harming others: None Do you have a plan to hurt others: No Plan Recently lost weight without trying: No service: No Current occupational status: unemployed Meds Allergies Allergy/AdvReac Type Severity Reaction Status Date / Time No Known Allergies Allergy Unverified 03/13/20 14:43 [No Known Allergies*] Home Medications Medication Instructions Recorded Confirmed Type allopurinol 100 mg tablet 100 mg PO DAILY 04/10/20 05/30/20 History duloxetine 60 mg capsule,delayed 60 mg PO DAILY 04/10/20 05/30/20 History release fluoxetine 40 mg capsule 40 mg PO DAILY 04/10/20 05/30/20 History lisinopril 5 mg tablet 5 mg PO DAILY 04/10/20 05/30/20 History atenolol 1 tab PO DAILY 05/30/20 05/30/20 History Physical Exam Vital Signs: Vital Signs: Last Vital Signs Temp 97.0 F 06/04/20 13:22 Pulse 88 06/04/20 13:31 Resp 22 H 06/04/20 13:22 BP 183/103 H 06/04/20 13:31 Pulse Ox 97 06/04/20 13:22 Body Mass Index 46.6 He was quite drowsy sometime morning occasionally following one-step commands and trying to pull his Powers's catheter of. His spine of my insistence and talking to him and coaxing him I was unable to convince him and he continues to do that stating that he had pee. He was significantly obese. Deep tendon reflexes are absent with flat plantars. There was no obvious abnormal posturing or movements. There was no obvious facial asymmetry. Eye examination was difficult to perform. Results Labs CBC & Chem 7: 06/04/20 06:31 06/04/20 06:31 Labs: Short CBC 06/04/20 Range/Units 06:31 WBC 13.5 H (4.8-10.8) X10*3/uL Hgb 13.0 L (14.0-18.0) g/dl Hct 40.7 L (42-52) % Plt Count 246 (160-400) X10*3/uL BMP 06/04/20 06:31 Sodium 135 Potassium 4.8 Chloride 101 Carbon Dioxide 16 L BUN 66 H Creatinine 4.26 H* Calcium 7.6 L Urine 06/04/20 Range/Units 11:35 Urine Color DARK YELLOW Urine Appearance HAZY Urine pH 5.5 (5.0-8.0) Ur Specific [place] >= 1.030 H (1.005-1.025) Urine Protein 1+ H (NEG-TRACE) MG/DL Urine Glucose (UA) NEG (NEG) MG/DL His head CT did not reveal any obvious acute abnormality. There was 1 left frontoparietal white matter cystic lesion probably chronic and did not suggest a tumor. Assessment and Plan (1) Encephalopathy: Status: Acute 60 years old man with multifactorial encephalopathy, likely from metabolic toxic and hypoxic reasons. Because of his obesity hypoventilation was a significant risk. Maximum efforts should be to properly oxygen it is brain. This could be done either with BiPAP machine or an alternate treatment. Formal polysomnogram would not be possible at this time. At this time there was no obvious acute brain lesion. He was at risk for dementia/encephalopathy/seizure disorder but overall presentation was more suggestive of encephalopathy and a focal pathology.
[2020-06-04 12:18] LABS: Amorphous Sediment Urine 2+ /LPF; Bacteria Urine TRACE /LPF; Hyaline Casts Urine 0-2 /LPF; Squamous Epithelial Cell Urine TRACE /LPF; WBC Urine 0 /HPF (0-4)
[2020-06-04 12:24] LABS: Creatinine Urine 304.53 mg/dL; Protein/Creatinine Ratio, Ur 0.33 (<0.2); Total Protein Urine Random 99 mg/dL (<12)
[2020-06-04] MEDS: Metoprolol Tartrate 10 MG in 0.9 % Sodium Chloride 50 ML 200 MG IV ×2 (13:30→17:40)
--- NOTE | 2020-06-04 13:31 | PM.EVENT ---
Event Note Date of Service: 06/04/20 Event Note: PULMONARY NOTE PT. SEEN , CASE REVIEWED , QUESTION OF PERSISTANT ACIDOSIS . FULL NOTE IS DICTATED A; * ACUTE KIDNEY INJURY/ ACUTE RENAL FAILURE , IS THE MAIN CAUSE OF HIS ACIDOSIS , *KNOWN CASE OF OBESITY RELATED MJ/HYPOVENTILATION SYNDROME . MJ DIAGNOSED IN 2012 . PROBABLY HAS BEEN NON COMPLIANT TO CPAP THERAPY . HE HAS FEATURES OF PICKWITHIAN SYNDROME . * RESTRICTIVE AND OBSTRUCTIVE LUNG DISEASE , WITH CHRONIC RESP. FAILURE . RECC . HE SHOULD BE ON BIPAP PRESSURE 15/6 CMs , TO USE DURING SLEEP ( AT NIGHT AND ALSO DURING DAY TIME , WHEN SLEEPING ) O2 , TO KEEP O2 SAT 90 TO 92 % JODY LADDs QID
--- NOTE | 2020-06-04 13:58 | EEG_ITS ---
This is a 16-channel EEG with an EKG lead. The patient is reported intubated during the tracing. Background EEG rhythm is continuously contaminated by technical and muscle artifacts. Otherwise, there is no definite asymmetry, sharp waves or spikes, or paroxysmal activity. Intermittently, some clear rhythm was noted that was low to medium amplitude, theta to delta range. Cardiac lead did not reveal any significant abnormality. IMPRESSION: Generalized slowing with no evidence of epileptic discharges on this EEG. MD SIVAKUMAR Olmedo/NILTON / [id number]
--- NOTE | 2020-06-04 19:55 | CONS_ITS ---
DATE OF SERVICE: 06/04/2020 HISTORY OF PRESENT ILLNESS: 60-year-old gentleman, is seen for pulmonary evaluation and management. He has been hospitalized since 05/29/2020 with change in mental status, has had history of excessive drinking and at the time of admission, was found to be in the state of alcohol intoxication. He has been treated for alcohol withdrawal and also noted to have acute kidney injury with acute renal failure, which has been treated with IV fluids and not showing much improvement yet. The patient has past history of gross obesity, heavy drinking of alcohol, diagnosed to have obstructive sleep apnea back in 2019 and was supposed to be on CPAP at nighttime, he has chronic depression, hypertension, gout, chronic anxiety. The patient also has history of smoking about 1 pack of cigarettes a day. At the time of admission, his list of medications was noted as follows. Allopurinol 100 mg daily, Cymbalta 60 mg capsule daily, fluoxetine 40 mg daily, lisinopril 5 mg daily. REVIEW OF SYSTEMS: Not possible due to change in his mental status. The patient is non-conversant at this time. PHYSICAL EXAMINATION: GENERAL: This 60-year-old gentleman is semi alert at this time or he is in deep sleep. He is nonconversant. VITAL SIGNS: Respiratory rate 18 per minute, does not seem to be in distress. His physical features include round face, very short, and obese neck and he has gross generalized obesity. EAR, NOSE, THROAT: Examination not possible because he would not open his mouth. NECK: Obese, but trachea midline. No jugular venous distention. CHEST: Chest wall is grossly obese. Percussion note not perceptible. Breath sounds are distant, but no gross wheezes or crepitations are heard. CARDIOVASCULAR SYSTEM: PMI is not palpable. Heart sounds are distant. Rhythm regular, but the heart sounds are somewhat faint. ABDOMEN: Markedly obese and protuberant, but nontender to palpation. EXTREMITIES: Chronic stasis edema and somewhat purplish skin of the legs. LABORATORY DATA: Current lab values: Venous blood gases today; pH 7.19, pCO2 of 48, pO2 of 35, venous bicarb 18, BUN 66, creatinine 4.26, calcium 7.6. White cell count 13.5, hemoglobin 13, platelet count 246. Blood cultures are pending. COVID-19 antibody negative. COVID PCR test last one on 04/10 was negative. CLINICAL IMPRESSION: I think this gentleman has acute kidney injury with acute renal failure. Acidosis is predominantly metabolic due to acute renal failure and may be slightly contributed by his chronic respiratory failure. Morbid obesity. Obesity related MJ/hypoventilation syndrome, chronic. Chronic obstructive and restrictive pulmonary disease. History of mass in the left lung, which according to previous biopsies has been negative. RECOMMENDATIONS: This gentleman should be treated with BiPAP, suggested pressure 15/6 cm. He should use BiPAP full night and also p.r.n. during the daytime if he is delirious or sleepy. Oxygen supplementation just to keep O2 saturation between 90% to 92%. May use DuoNeb updrafts q.i.d. if any chest congestion or wheezing. His prognosis is going to depend upon the acute renal disease. Thank you very much for asking me to see this patient. MD JOSSY Gabriel/NILTON / [id number]
[2020-06-04] MEDS: Albuterol/Iprat 2.5/0.5MG 3 ML AMPUL.NEB INHALE (20:57)
--- NOTE | 2020-06-04 22:07 | XR_ITS ---
EXAMINATION: XR CHEST CLINICAL INFORMATION: ET tube placement COMPARISON: None TECHNIQUE: Frontal view of the chest was obtained. FINDINGS: Since the prior study an ET tube has been placed which is 4.5 cm above the cruz. There is been development of diffuse airspace disease, right greater than left. The heart remains enlarged. No definite pleural effusions are seen. XR/XR chest 1V IMPRESSION: ET tube in good position 4.5 cm above the cruz. Development of airspace disease consistent with edema or infiltrates.
--- NOTE | 2020-06-04 22:08 | PM.EVENT ---
Event Note Date of Service: 06/04/20 Event Note: At around 9:30 a.m. a rapid response was called on this patient for altered mentation. On my arrival patient was pulseless, and the Code was then changed to code blue. Patient was in asystole. Chest compressions were started around 935, patient received 3 rounds of epinephrine, with achievement of ROSC. patient is currently being managed for alcohol withdrawal worsening MERLIN. Review of labs demonstrated metabolic acidosis which is thought to be most likely due to MERLIN. Patient also had hypomagnesemia but labs from this a.m. showed normal magnesium level. According to progress note from this a.m. patient has been progressively more lethargic. After Independence vitals showed a blood pressure of 214/133, pulse ranging between 130-150, patient is intubated, and will be transferred to the ICU where further labs and x-ray will be done. watch parts inspector was notified, and ICU SURY was at bedside during the code. Physical exam: initially patient was asystolic, 3 rounds of epinephrine were given, ROSC was achieved, 1 amp of bicarb and 1 mg of magnesium were also administered after achievement of ROSC patient is abuse, now intubated, blood pressure of 124/131, heart rate of 153, further management per ICU team. More than 30 minutes were conducted urine code as well as transfer and physician to physician sign-out
--- NOTE | 2020-06-04 22:19 | ECG_ITS ---
Test Reason : post code Blood Pressure : / mmHG Vent. Rate : 099 BPM Atrial Rate : 110 BPM P-R Int : 000 ms QRS Dur : 094 ms QT Int : 398 ms P-R-T Axes : 000 083 057 degrees QTc Int : 510 ms Atrial fibrillation Low voltage QRS Prolonged QT Abnormal ECG No significant changes when compared with the previous EKG of 30 may 2020 Referred By: Bee Chopra Electronically Signed By:SACHI ELENA
--- NOTE | 2020-06-04 22:22 | PC.NURSE ---
Patient has been restless from the start of shift, attempting to get out of bed and take of his bipap mask. Multiple attempts to redirect patient on the importance of keeping his mask on was made by this junior technical writer, respiratory therapist and other members of staff but were all unsuccessful. With increased distress, respiratory department was notified to assess his bipap for proper functioning. Respiratory came in, assessed bipap and gave him a treatment. Oxygen saturation on arrival of therapist was 98% with bipap functioning well with leak below 50. This junior technical writer sent a tiger text orthodontic laboratory technician to report patient's increase in distress. While call box wirer MD was working on interventions for patient, patient took of his mask and struggled not to put it on with this junior technical writer. Patient then quickly became dyspneic, his face looked pale and was unresponsive to shaking and sternal rub. He had no palpable pulse which led to initiation of code blue and CPR. Patient was later intubated, resuscitated and has been transferred to ICU for further treatment.
--- NOTE | 2020-06-04 22:38 | PC.RT ---
arrived to do a routine check at 20:45 pt restless ripping off the mask moving around in bed states he wants to get up to use the bathroom i told him to wait one moment rang for the nurse he came in assisted me repositioned pt readjusted mask pt tolerating better check spo2 with my pulse ox pt extremities warm to touch pink 02 sats 98% pt had a duoneb in line tolerated well resting before i left the room
--- NOTE | 2020-06-04 23:05 | P.CONCC_ITS ---
Documented by User: MOLLY Estrada 06/05/20 05:55 History of Present Illness Data of Consult Service Date: 06/04/20 Requesting physician: Claudia Hinton Primary Care Provider: Ortiz Deluca [facility] HPI Reason for consult: code blue Patient coded around 21:30, 3 rounds of epi and chest compressions with achievement of Rosc. patient been given 1 amp of bicarb and 1g of Mag, patient intubated, vital signs 214/133 HR 150's, O2 90's on 100%. patient was becoming increasingly acidotic with a questionable ABG (likely VBG) this morning of 7.19/48/35/18 O2 sat 58.5 and -10.6 base excess on room air and was becoming obtunded as the day progressed. patient will be transferred to the ICU for further management. Review of Systems Review of Systems: N/A as pt is intubated and sedated PMFSH Past Medical History Medical History Alcohol dependency Anxiety Arthritis Depression Gout HTN (hypertension) Seroma due to trauma Sleep apnea Functional capacity: independent ambulation Social History Social History Household Members: Spouse Housing: House Do you presently have visiting nurse or other home services: No Smoking Status: Current every day smoker Tobacco Type: Cigarette Packs Per Day: 1 Cigarettes Per Day: 20.0 Smoked in Last 30 Days: Yes Patient Interested in Nicotine Replacement: Yes Patient Given Instructions on How to Stop Smoking: Yes Date Education Initiated: 05/30/20 Second Hand Smoke Exposure: No Use of substances other than those prescribed or required for medical reasons: No Currently Displaying Signs/Symptoms of Drug Intoxication Withdrawal: No Have you been hit, kicked, punched, or otherwise hurt by someone within the past year? If so, by whom?: No Do you feel safe in your current relationship?: Yes Is there a partner from a previous relationship who is making you feel unsafe now?: No Are you made to feel afraid or neglected: No Advance Directives: No Advance Directives Information Provided: No Do you have thoughts of harming others: None Do you have a plan to hurt others: No Plan Recently lost weight without trying: No service: No Current occupational status: unemployed Meds Allergies Allergy/AdvReac Type Severity Reaction Status Date / Time No Known Allergies Allergy Unverified 03/13/20 14:43 [No Known Allergies*] Home Medications Medication Instructions Recorded Confirmed Type allopurinol 100 mg tablet 100 mg PO DAILY 04/10/20 05/30/20 History duloxetine 60 mg capsule,delayed 60 mg PO DAILY 04/10/20 05/30/20 History release fluoxetine 40 mg capsule 40 mg PO DAILY 04/10/20 05/30/20 History lisinopril 5 mg tablet 5 mg PO DAILY 04/10/20 05/30/20 History atenolol 1 tab PO DAILY 05/30/20 05/30/20 History Physical Exam Vital Signs: Vital Signs: Last Vital Signs Temp 98.3 F 06/04/20 16:22 Pulse 107 H 06/04/20 20:59 Resp 19 06/04/20 21:01 BP 148/72 H 06/04/20 16:22 Pulse Ox 93 06/04/20 16:22 Body Mass Index 46.6 Const: Other: sedated and intubated Nutritional Appearance: obese HENMT: Head: Yes normal to inspection, Yes No palpable skull fracture present, Yes normocephalic and Yes atraumatic Face and sinus: Yes normal facial exam Eyes: General: appearance normal, both eyes and all related structures Pupils: Equal, round and reactive pupils present EOM: EOMs intact bilaterally Neck: Neck: Yes normal visual inspection, Yes trachea midline and Yes supple Chest: Chest palpation & inspection: normal inspection of the chest Resp: Auscultation: wheezes expiratory wheezes and throughout Cardio: Rhythm: abnormal rhythm irregularly irregular GI: Inspection: Yes obesity Palpation (GI): Soft to palpation Auscultati on: normal bowel sounds Skin: Other: all four extremities are mottled, all fingertips and toes are dusky Neuro: Cranial nerves: Yes Equal, round and reactive pupils present Results Labs CBC & Chem 7: 06/05/20 04:53 06/05/20 04:53 Labs: Short CBC 06/04/20 Range/Units 06:31 WBC 13.5 H (4.8-10.8) X10*3/uL Hgb 13.0 L (14.0-18.0) g/dl Hct 40.7 L (42-52) % Plt Count 246 (160-400) X10*3/uL BMP 06/04/20 06:31 Sodium 135 Potassium 4.8 Chloride 101 Carbon Dioxide 16 L BUN 66 H Creatinine 4.26 H* Calcium 7.6 L Urine 06/04/20 Range/Units 11:35 Urine Color DARK YELLOW Urine Appearance HAZY Urine pH 5.5 (5.0-8.0) Ur Specific [employer] >= 1.030 H (1.005-1.025) Urine Protein 1+ H (NEG-TRACE) MG/DL Urine Glucose (UA) NEG (NEG) MG/DL ABG ABG results: 7.09/54/52/16/73.3/-14.6 Attestation: I personally reviewed and interpreted this ABG as follows: ECG Attestation: I personally reviewed and interpreted this ECG as follows: Interpretation: rate controlled afib Imaging CT scan - head: Attestation: I personally reviewed and interpreted this imaging study as follows: Radiologist's impression: Diagnostics DATE TYPE STATUS REF RANGE/AUTHOR Hx Today 00:00 Swati Cline Today 00:00 Swati Cline Today 00:00 Swati Cline 06/04/20 23:12 Ander Lantigua 06/04/20 22:07 Joey Mendoza 06/04/20 00:00 August Barrera 06/04/20 00:00 Moriah Perea 06/01/20 00:00 Kam López 06/01/20 00:00 05/31/20 00:00 Kam López 04/10/20 13:33 Willam Serrano 04/10/20 13:32 Willam Serrano 04/10/20 09:40 Willam Serrano 04/10/20 09:40 Willam Serrano Galindo,Esteban Cespedes 60, M0 1960 ADM IN, HO.ICU 255 -1 6ft 155.92kg BSA: 2.81m? BMI: 46.6kg/m? Search Chart ONSET Today 02:00 Esteban Galindo Rubina 60 M [address] [address] [address] Scan Report Signed Patient: Esteban Galindo FMR#: [id number] : 1Acct:[id number] Age/Sex: 60 / MADM Date: 05/30/20 Loc: [id number]: Tino Nieto MD Ordering Physician: WALDEMAR SANCEHZ Date of Service: 06/05/20 Procedure(s): CT head/brain wo con Accession Number(s): [id number] cc: WALDEMAR SANCHEZ~ EXAMINATION: CT HEAD WITHOUT CONTRAST CLINICAL INFORMATION: Status post code COMPARISON: 06/04/2020 TECHNIQUE: Contiguous axial imaging was performed from the skull base to vertex without intravenous administration of contrast. This CT examination was performed using dose optimization techniques as appropriate, variously including the following: *Automated exposure control *Adjustment of mA and/or kV according to patient size (this includes techniques or standardized protocols for targeted exams where dose is matched to indication/reason for exam; i.e. extremities or head) *Use of iterative reconstruction technique DLP: 998 mGy-cm FINDINGS: There is no evidence of acute intracranial hemorrhage or territorial infarction. No abnormal mass effect or midline shift is seen. Mir to white matter differentiation is well preserved. No extra-axial fluid collections are identified. The ventricles are normal in size. 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 The osseous structures and soft tissues are normal. The mastoid air cells and visualized portions of the paranasal sinuses are well aerated. CT/CT head/brain wo con IMPRESSION: No acute intracranial pathology. Dictated By:SWATI CLINE MD Signed By:<Electronically signed by SWATI CLINE MD in OV>06/05/20 0139 DD/ 0000 TD/TT: Special Diet Cook: WALLY CT scan - chest: Attestation: I personally reviewed and interpreted this imaging study as follows: Radiologist's impression: Diagnostics DATE TYPE STATUS REF RANGE/AUTHOR Hx Today 00:00 Swati Cline Today 00:00 Swati Cline Today 00:00 Swati Cline 06/04/20 23:12 Ander Lantigua 06/04/20 22:07 Joey Mendoza 06/04/20 00:00 August Barrera 06/04/20 00:00 Moriah Perea 06/01/20 00:00 Malu Lópezrick 06/01/20 00:00 05/31/20 00:00 Kam López 04/10/20 13:33 Maggie,Willam 04/10/20 13:32 Budrom,Willam 04/10/20 09:40 Martillottmadai,Willam 04/10/20 09:40 Maggie,Willam Esteban Galindo F 60, M0 1960 ADM IN, HO.ICU 255 -1 6ft 155.92kg BSA: 2.81m? BMI: 46.6kg/m? Search Chart ONSET Today 02:00 Esteban Galindo F 60 M [address] [address] [address] Scan Report Signed Patient: Esteban Galindo FMR#: [id number] : 1960cct:[id number] Age/Sex: 60 / MADM Date: 05/30/20 Loc: .[id number]: Tino Nieto MD Ordering Physician: WALDEMAR SANCHEZ Date of Service: 06/05/20 Procedure(s): CT chest wo con Accession Number(s): [id number] cc: WALDEMAR SANCHEZ~ EXAMINATION CT CHEST, ABDOMEN AND PELVIS WITHOUT CONTRAST CLINICAL INFORMATION: Status post code COMPARISON: 04/10/2020 and 03/15/2020. TECHNIQUE: Multidetector volumetric CT imaging of the chest, abdomen and pelvis was obtained without use of intravenous contrast. Coronal and sagittal reformats were reviewed. This CT examination was performed using dose optimization techniques as appropriate, variously including the following: *Automated exposure control *Adjustment of mA and/or kV according to patient size (this includes techniques or standardized protocols for targeted exams where dose is matched to indication/reason for exam; i.e. extremities or head) *Use of iterative reconstruction technique DLP: 2594 mGy-cm. FINDINGS: CHEST LUNGS/PLEURA: Extensive patchy opacities in parenchymal consolidation present throughout the right lung and left lower lobe. Small a moderate right and small left pleural effusions. Paraseptal emphysema evident within the upper lobes bilaterally. Endotracheal tube terminates within the mid thoracic trachea. MEDIASTINUM/NOAH: Cardiomegaly. No pericardial effusion. Great vessels normal caliber. CHEST WALL/AXILLA: Anasarca. No axillary adenopathy. ABDOMEN/PELVIS HEPATOBILIARY: Liver normal in size, contour and morphology. No suspicious lesions. No intra or extrahepatic biliary dilation. Gallbladder unremarkable. PANCREAS: Unremarkable. SPLEEN: Unremarkable. ADRENAL GLANDS: Unremarkable. KIDNEYS, URETERS AND BLADDER: No hydronephrosis. Focal scarring present along the superior pole of the right kidney. No urinary calculi. No hydronephrosis or urinary calculi. Ureters normal in course and caliber. Bladder grossly unremarkable.. GASTROINTESTINAL TRACT: No bowel related abnormalities. PELVIC VISCERA: Unremarkable. LYMPH NODES: No lymphadenopathy. PERITONEUM/BODY WALL: Anasarca. Small volume ascites. VASCULAR STRUCTURES: Aorta is atherosclerotic but normal caliber. OSSEOUS STRUCTURES Mildly displaced left anterior fourth fifth and sixth rib fractures. Nondisplaced right anterior third, fourth and fifth rib fractures. There is a fracture through the right anterior sixth costochondral junction with mild anterior displacement of the anterior sixth rib. Chronic healed fractures of the right anterior second and third ribs. CT/CT chest wo con IMPRESSION: * Extensive consolidation throughout the lower lobes bilaterally, worse on the right, as well as the upper lobes to lesser extent, also worse on the right. * Small a moderate right and small left pleural effusions. * Cardiomegaly. * Bilateral acute anterior rib fractures likely relates to chest compressions. No retrosternal hematoma or pericardial effusion. * Anasarca and small volume ascites. Dictated By:SWATI CLINE MD Signed By:<Electronically signed by SWATI CLINE MD in OV>06/05/20 0149 DD/ 0000 TD/TT: Special Diet Cook: WALLY Assessment and Plan (1) Acute kidney failure: Problem details: Most likely has ATN; He was on ACEi/NSAID- could have contributed to ischemic ATN Sediments bland Keep I = O Decrease IVF to 40 cc/hr Insert nazario and obtain urine studies No obstruction by USG High AG Acidosis WITH Resp acidosis Osm Gap normal at 4.5 Probably due to MERLIN Status: Acute Call to Nephrology for urgent evaluation and dialysis in the AM (2) Persistent atrial fibrillation: Status: Acute rate controlled (3) Left atrial enlargement: Status: Acute (4) Alcohol dependency: Status: Acute (5) Alcohol withdrawal syndrome: Status: Acute patient completed phenobarb protocol today (6) Cardiac arrest with successful resuscitation: Status: Acute Will get EKG, DODD, full labs, blood cultures, UA, lactic acid (which will be elevated 2/2 code), CT of head, chest and abdomen. (7) CHF (congestive heart failure): Problem details: BNP 4883 Status: Acute Will try small amt of lasix, pt has ischemic ATN, will likely need dialysis. Cannot give sepsis fluids due to this. (8) Obesity hypoventilation syndrome: Problem details: on CPAP and duonebs at home Status: Acute (9) Restrictive lung disease secondary to obesity: Problem details: on CPAP and duonebs at home Status: Acute (10) Community acquired pneumonia, bilateral: Status: Acute started cetriaxone and azithromycin (11) Rib fractures: Status: Acute (12) Pleural effusion: Status: Acute Documented by User: True Pfeiffer MD 06/05/20 12:19 [facility] Past Medical History Medical History Alcohol dependency Anxiety Arthritis Depression Gout HTN (hypertension) Seroma due to trauma Sleep apnea Social History Social History Household Members: Spouse Housing: House Do you presently have visiting nurse or other home services: No Smoking Status: Current every day smoker Tobacco Type: Cigarette Packs Per Day: 1 Cigarettes Per Day: 20.0 Smoked in Last 30 Days: Yes Patient Interested in Nicotine Replacement: Yes Patient Given Instructions on How to Stop Smoking: Yes Date Education Initiated: 05/30/20 Second Hand Smoke Exposure: No Use of substances other than those prescribed or required for medical reasons: No Currently Displaying Signs/Symptoms of Drug Intoxication Withdrawal: No Have you been hit, kicked, punched, or otherwise hurt by someone within the past year? If so, by whom?: No Do you feel safe in your current relationship?: Yes Is there a partner from a previous relationship who is making you feel unsafe now?: No Are you made to feel afraid or neglected: No Advance Directives: No Advance Directives Information Provided: No Do you have thoughts of harming others: None Do you have a plan to hurt others: No Plan Recently lost weight without trying: No service: No Current occupational status: unemployed Meds Allergies Allergy/AdvReac Type Severity Reaction Status Date / Time No Known Allergies Allergy Unverified 03/13/20 14:43 [No Known Allergies*] Home Medications Medication Instructions Recorded Confirmed Type allopurinol 100 mg tablet 100 mg PO DAILY 04/10/20 05/30/20 History duloxetine 60 mg capsule,delayed 60 mg PO DAILY 04/10/20 05/30/20 History release fluoxetine 40 mg capsule 40 mg PO DAILY 04/10/20 05/30/20 History lisinopril 5 mg tablet 5 mg PO DAILY 04/10/20 05/30/20 History atenolol 1 tab PO DAILY 05/30/20 05/30/20 History Results Labs CBC & Chem 7: 06/05/20 04:53 06/05/20 04:53
--- NOTE | 2020-06-04 23:12 | XR_ITS ---
EXAMINATION: XR CHEST CLINICAL INFORMATION: TLC placement COMPARISON: Same date at 10:08 PM TECHNIQUE: Frontal view of the chest was obtained. FINDINGS: ET tube terminates 4.5 cm from the cruz. Left IJ catheter tip terminates in the SVC near the junction with the azygos vein. EKG leads overlie the chest. No pneumothorax. Patchy interstitial and airspace opacities are present throughout both lungs, right greater than left. Cardiac silhouette remains enlarged. Probable small pleural effusions. No acute osseous findings. XR/XR chest 1V IMPRESSION: 1. Left IJ central venous catheter tip terminates in the SVC. The junction with the azygous. 2. ET tube terminates 4.5 cm from the cruz. 3. Unchanged multifocal interstitial and airspace opacities in both lungs with small effusions.
[2020-06-04 23:15] LABS: MANUAL DIFF FLAG NO
[2020-06-04 23:18] LABS: Basophils Percent Auto 0.3 % (0-2); Hematocrit 39.8 % (42-52); Imm Gran Abs Auto 0.16 X10*3/uL (0.00-0.03); Imm Gran Pct Auto 1.5 % (0.0-0.4); Lymphocytes Absolute Auto 1.3 X10*3/uL (1.2-4.9); Lymphocytes Percent Auto 12.3 % (20-40); Mean Corpuscular HGB Conc 32.7 g/dl (31.0-36.0); Mean Corpuscular Hemoglobin 36.5 pg (27.0-33.0); Mean Corpuscular Volume 111.8 fL (80-98); Monocytes Absolute Auto 0.9 X10*3/uL (0.1-1.2); Monocytes Percent Auto 8.1 % (2-11); NRBC Pct Auto 2.8 /100WBC (0.0-0.2); Neutrophils Absolute Auto 8.2 X10*3/uL (2.0-8.3); Neutrophils Percent Auto 77.8 % (45-73); Platelet Count 272 X10*3/uL (160-400); Red Blood Count 3.56 X10*6/uL (4.60-5.80); White Blood Count 10.6 X10*3/uL (4.8-10.8)
--- NOTE | 2020-06-04 23:33 | W.PM.CCHP ---
Procedures Central Line Placement Left IJ: Consent for Procedure: Emergent-no informed consent obtained <MOLLY Estrada Last Filed: 06/05/20 01:21> Time out performed: Yes <MOLLY Estrada Last Filed: 06/05/20 01:21> Sterile Technique Used: Yes <MOLLY Estrada Last Filed: 06/05/20 01:21> Patient placed on monitor/pulse ox: Yes <MOLLY Estrada Last Filed: 06/05/20 01:21> MD prep: mask, gown and gloves <MOLLY Estrada Last Filed: 06/05/20 01:21> Central line prep: Chlorhexidine scrub <MOLLY Estrada Last Filed: 06/05/20 01:21> Ultrasound used for placement: Yes <MOLLY Estrada Last Filed: 06/05/20 01:21> Central line lumen inserted: triple <MOLLY Estrada Last Filed: 06/05/20 01:21> Post procedure: sutured in place, good blood return, all ports aspirated, flushed, capped and sterile dressing applied <MOLLY Estrada Last Filed: 06/05/20 01:21> Post procedure x-ray: tip of catheter in good position and no pneumothorax seen <MOLLY Estrada Last Filed: 06/05/20 01:21> Patient tolerated procedure: well and no complications <MOLLY Estrada Last Filed: 06/05/20 01:21>
[2020-06-04 23:49] LABS: Base Excess VBG -14.6 mmol/L; HCO3 VBG 16 mmol/L; Oxygen Saturation VBG 73.3 %; PCO2 VBG 54 mmhg; PO2 VBG 52 mmhg
[2020-06-04 23:51] LABS: pH VBG 7.09 (7.32-7.43)
[2020-06-05] VITALS (32 sets, daily range): BP systolic 105–175; BP diastolic 36–132; PULSE 75–100; RESP 17–26; TEMP 33.1–36.7; O2SAT 93–100
--- NOTE | 2020-06-05 | CT_ITS ---
EXAMINATION CT CHEST, ABDOMEN AND PELVIS WITHOUT CONTRAST CLINICAL INFORMATION: Status post code COMPARISON: 04/10/2020 and 03/15/2020. TECHNIQUE: Multidetector volumetric CT imaging of the chest, abdomen and pelvis was obtained without use of intravenous contrast. Coronal and sagittal reformats were reviewed. This CT examination was performed using dose optimization techniques as appropriate, variously including the following: *Automated exposure control *Adjustment of mA and/or kV according to patient size (this includes techniques or standardized protocols for targeted exams where dose is matched to indication/reason for exam; i.e. extremities or head) *Use of iterative reconstruction technique DLP: 2594 mGy-cm. FINDINGS: CHEST LUNGS/PLEURA: Extensive patchy opacities in parenchymal consolidation present throughout the right lung and left lower lobe. Small a moderate right and small left pleural effusions. Paraseptal emphysema evident within the upper lobes bilaterally. Endotracheal tube terminates within the mid thoracic trachea. MEDIASTINUM/NOAH: Cardiomegaly. No pericardial effusion. Great vessels normal caliber. CHEST WALL/AXILLA: Anasarca. No axillary adenopathy. ABDOMEN/PELVIS HEPATOBILIARY: Liver normal in size, contour and morphology. No suspicious lesions. No intra or extrahepatic biliary dilation. Gallbladder unremarkable. PANCREAS: Unremarkable. SPLEEN: Unremarkable. ADRENAL GLANDS: Unremarkable. KIDNEYS, URETERS AND BLADDER: No hydronephrosis. Focal scarring present along the superior pole of the right kidney. No urinary calculi. No hydronephrosis or urinary calculi. Ureters normal in course and caliber. Bladder grossly unremarkable.. GASTROINTESTINAL TRACT: No bowel related abnormalities. PELVIC VISCERA: Unremarkable. LYMPH NODES: No lymphadenopathy. PERITONEUM/BODY WALL: Anasarca. Small volume ascites. VASCULAR STRUCTURES: Aorta is atherosclerotic but normal caliber. OSSEOUS STRUCTURES Mildly displaced left anterior fourth fifth and sixth rib fractures. Nondisplaced right anterior third, fourth and fifth rib fractures. There is a fracture through the right anterior sixth costochondral junction with mild anterior displacement of the anterior sixth rib. Chronic healed fractures of the right anterior second and third ribs. CT/CT abdomen pelvis wo con IMPRESSION: * Extensive consolidation throughout the lower lobes bilaterally, worse on the right, as well as the upper lobes to lesser extent, also worse on the right. * Small a moderate right and small left pleural effusions. * Cardiomegaly. * Bilateral acute anterior rib fractures likely relates to chest compressions. No retrosternal hematoma or pericardial effusion. * Anasarca and small volume ascites.
--- NOTE | 2020-06-05 | CT_ITS ---
EXAMINATION: CT HEAD WITHOUT CONTRAST CLINICAL INFORMATION: Status post code COMPARISON: 06/04/2020 TECHNIQUE: Contiguous axial imaging was performed from the skull base to vertex without intravenous administration of contrast. This CT examination was performed using dose optimization techniques as appropriate, variously including the following: *Automated exposure control *Adjustment of mA and/or kV according to patient size (this includes techniques or standardized protocols for targeted exams where dose is matched to indication/reason for exam; i.e. extremities or head) *Use of iterative reconstruction technique DLP: 998 mGy-cm FINDINGS: There is no evidence of acute intracranial hemorrhage or territorial infarction. No abnormal mass effect or midline shift is seen. Mir to white matter differentiation is well preserved. No extra-axial fluid collections are identified. The ventricles are normal in size. 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 The osseous structures and soft tissues are normal. The mastoid air cells and visualized portions of the paranasal sinuses are well aerated. CT/CT head/brain wo con IMPRESSION: No acute intracranial pathology.
--- NOTE | 2020-06-05 | CT_ITS ---
EXAMINATION: CT ABDOMEN AND PELVIS WITHOUT CONTRAST CLINICAL INFORMATION: increasing abdominal pressure COMPARISON: 06/05/2020 TECHNIQUE: Multidetector volumetric imaging was performed from the superior aspect of the liver through the pubic symphysis. Sagittal and coronal reformatted images were obtained on the technologist's workstation. This CT examination was performed using dose optimization techniques as appropriate, variously including the following: *Automated exposure control *Adjustment of mA and/or kV according to patient size (this includes techniques or standardized protocols for targeted exams where dose is matched to indication/reason for exam; i.e. extremities or head) *Use of iterative reconstruction technique DLP: 1563 mGy-cm FINDINGS: LUNG BASES: There is collapse of the lower lobes, potentially with superimposed airspace consolidation. More ill-defined groundglass airspace opacities are present within the right middle lobe, lingula, and imaged portion of the right upper lobe. Global cardiomegaly. Small bilateral pleural effusions are present. LIVER, GALLBLADDER, AND BILIARY TREE: The liver remains borderline enlarged with subtle nodularity of its capsule. No focal hepatic lesions are identified in this unenhanced study. Gallbladder is borderline hydropic. No cholelithiasis. No evidence of acute cholecystitis. No biliary ductal dilatation. PANCREAS: Unremarkable. SPLEEN: Unremarkable. ADRENAL GLANDS: Unremarkable. KIDNEYS AND URETERS: There is focal cortical scarring at the lateral aspect of the right upper renal pole, unchanged from prior. No perinephric stranding is unchanged. BLADDER: Powers catheter is present within the otherwise decompressed bladder. GASTROINTESTINAL TRACT: Dobbhoff tube terminates in the gastric antrum. Stomach is decompressed. Small bowel and colon are normal in caliber. Appendix is not well seen. There is a [id number] volume of intraperitoneal free fluid, most notably in the perihepatic location, though also seen around the greater curvature of the stomach, the spleen, and the paracolic gutters (right greater than left). ABDOMINAL WALL: Generalized anasarca. No evidence of hernias. LYMPH NODES: Normal. VASCULAR: Jed atherosclerosis is present in the abdominal aorta and iliac arteries. No aneurysmal dilatation. PELVIC VISCERA: The prostate and seminal vesicles are unremarkable. OSSEOUS STRUCTURES: Mild multilevel degenerative spondylosis throughout the thoracic spine. Multiple bilateral anterior fractures are again noted. CT/CT abdomen pelvis wo con IMPRESSION: 1. Anasarca. The small to moderate volume of ascites is slightly increased as compared to prior. 2. Persistent consolidation in the lower lobes and imaged portions of the upper and right middle lobes. Small pleural effusions. 3. Cardiomegaly. 4. Hepatic steatosis with hepatomegaly.
--- NOTE | 2020-06-05 | US_ITS ---
EXAMINATION: US VENOUS ULTRASOUND WITH DOPPLER LOWER EXTREMITY, BILATERAL CLINICAL INFORMATION: Possible pulmonary embolus. COMPARISON: Prior ultrasound from 03/15/2020 TECHNIQUE: Ultrasound of the deep veins is performed from the hip to the calf with compression sonography and color and pulse Doppler assessment. Spectral analysis with color-flow imaging is performed. FINDINGS: The common femoral vein is compressible. On Doppler imaging, there is hyperpulsatile flow in the common femoral veins, which can reflect presence of elevated right-sided cardiac pressures. Within each proximal thigh, the visualized profunda femoris vein is patent. The visualized greater saphenous veins and saphenofemoral junctions are normal. Superficial femoral vein is patent in the proximal, mid and distal aspect of each thigh. Popliteal vein appears normal to the level of the trifurcation, bilaterally, and the visualized calf veins are patent. No evidence of Jones's cyst. Mild edema is seen within subcutaneous tissues of each leg. US/US venous duplex LE IMPRESSION: * No evidence of deep vein thrombosis in either lower extremity. * Mild edema in subcutaneous tissues of the legs. * On Doppler imaging, there is hyperpulsatile flow in the common femoral veins, which can reflect presence of elevated right-sided cardiac pressures.
[2020-06-05 00:01] LABS: Alanine Aminotransferase 27 U/L (0-40); Albumin Level 3.2 g/dL (3.5-5.0); Alkaline Phosphatase 91 U/L (39-117); Anion Gap 25 (12-20); Aspartate Amino Transferase 47 U/L (5-37); Bilirubin Total 0.9 mg/dL (0.0-1.0); Blood Urea Nitrogen 74 mg/dL (9-16); Calcium 7.8 mg/dL (8.4-10.2); Carbon Dioxide 14 mmol/L (22-29); Chloride 101 mmol/L (96-108); Creatinine Clr Calc Pharmacy 28.3; Estimated Glomerular Filt Rate 14; Glucose Random 119 mg/dL (60-115); Phosphorus 8.4 mg/dL (2.7-4.5); Potassium 4.7 mmol/l (3.3-5.1); Sodium 135 mmol/L (135-145); Total Protein 6.7 g/dL (6.5-8.0)
[2020-06-05 00:17] LABS: B Type Natriuretic Peptide 4883 pg/mL (<100)
[2020-06-05 01:19] LABS: Amphetamine Screen Urine Not Detected (Not Detect); Barbiturates, Urine POSITIVE (Not Detect); Benzodiazepines Screen Urine Not Detected (Not Detect); Cannabinoid Screen Urine Not Detected (Not Detect); Cocaine Screen Urine Not Detected (Not Detect); Opiate Screen Urine Not Detected (Not Detect); Phencyclidine Screen Urine Not Detected (Not Detect)
[2020-06-05] MEDS: Sodium Bicarbonate 8.4% 50 MEQ/50 ML SYRINGE IVPUSH ×3 (01:35→03:15)
[2020-06-05] MEDS: Albuterol/Iprat 2.5/0.5MG 3 ML AMPUL.NEB INHALE ×6 (01:40→19:46)
[2020-06-05 02:04] LABS: Magnesium 2.5 mg/dL (1.6-2.6)
[2020-06-05] MEDS: Thiamine HCL 500 MG in 0.9 % Sodium Chloride 100 ML 210 MG IV ×2 (02:14→11:59)
[2020-06-05] MEDS: Pantoprazole Sodium 40 MG/10 ML VIAL IVPUSH (02:19)
[2020-06-05 02:51] LABS: Base Excess VBG -14.4 mmol/L; HCO3 VBG 14 mmol/L; PCO2 VBG 41 mmhg; PO2 VBG 61 mmhg
[2020-06-05 02:52] LABS: Oxygen Saturation VBG 82.7 %
[2020-06-05 02:53] LABS: pH VBG 7.15 (7.32-7.43)
[2020-06-05] MEDS: Furosemide 40 MG/4 ML VIAL IVPUSH (02:55)
[2020-06-05] MEDS: Azithromycin 500 MG in 0.9 % Sodium Chloride 250 ML 125 MG IV (02:55)
[2020-06-05] MEDS: cefTRIAXone sodium 2 GM in 0.9 % Sodium Chloride 50 ML IV (02:55)
--- NOTE | 2020-06-05 03:10 | CA_ITS ---
Transthoracic Echocardiogram Patient (Last, First, Middle): Esteban Galindo F Gender: Male Date of : 1960 Age: 60 Procedure Date: 06/05/2020 Procedure Type: Transthoracic Echocardiogram Location: ICU Height: 182.88 cm Weight: 155.58 kg BSA: 2.68 m2 Heart Rate: bpm BP: 127 / 102 mmHg Child Care Team Lead: FINN Referring MD: Bee BARNES Symptoms: ? cardiac status post code Study Quality: Technically Difficult ECG Rhythm: Atrial Fibrillation Conclusions: - The left ventricle was not well visualized. Based on limited image quality, LVEF probably >50%. - There is mildly decreased right ventricular systolic function. - No obvious valvular pathology seen on this study. - Mild pulmonary hypertension is present. Findings Procedure Information Contrast agent, definity, is being given per protocol without apparent complications. Left Ventricle The left ventricle was not well visualized. Normal left ventricular cavity size. Regional wall motion abnormalities can not be excluded due to suboptimal endocardial definition. Diastolic function is indeterminate on the basis of available data. Based on limited image quality, LVEF probably >50%. Right Ventricle Normal right ventricular cavity size. There is mildly decreased right ventricular systolic function. Atria Both atria are normal in size. Aortic Valve The aortic valve was not well visualized. There is mild calcification of the aortic valve. There is no aortic valve stenosis. There is no aortic valve regurgitation. Mitral Valve The mitral valve appears normal. There is no mitral valve regurgitation. There is no mitral valve stenosis. Pulmonic Valve The pulmonic valve was not well visualized. Tricuspid Valve The tricuspid valve was not well visualized. There is mild tricuspid valve regurgitation. The right ventricular systolic pressure is 40 mmHg. Mild pulmonary hypertension is present. (on ventilator) Great Vessels The aortic annulus, sinuses of valsalva, and asc aorta are normal in size. Venous The inferior vena cava is mildly dilated and collapses less than 50% with inspiration. Pericardium/Pleural There is no evidence of pericardial effusion. Prior Study Comparison No significant change compared to prior study dated: 11/13/2019. Recommendations, Care & Conclusions No obvious valvular pathology seen on this study. Measurements 2D Linear Measurements Ao Root: 3.20 2.1-3.5 cm LA Diam: 4.60 2.7-3.8/3.0-4.0 cm LAIDs Index: 1.72 1.5-2.3 cm/m2 LVOT Diam: 2.00 3.0+(-)1.3 cm LVOT LVOT Diam: 2.00 LVOT Area: 3.14 Tricuspid Valve TR Pk Yuval: 2.85 TR Pk Grad: 32.00 RA Press: 8.00 RVSP: 40.00 Great Vessels Aorta Ao Root-2D: 3.20 2.0-3.7 cm Ao Asc: 3.60 2.1-3.4 cm Updated in Other Vendor System with Status of Final Stuart Rosario MD electronically signed on 06/05/2020 5:21:40 PM with status of Final
[2020-06-05 04:22] LABS: Lactic Acid 3.2 mmol/L (0.5-2.0)
[2020-06-05] MEDS: propofoL 1,000 MG/100 ML VIAL 46.78 MG IVCONT ×4 (04:24→13:57)
[2020-06-05] MEDS: vancomycin HCL 1,000 MG in 0.9 % Sodium Chloride 250 ML 270 MG IV (04:24)
--- NOTE | 2020-06-05 05:13 | PC.NURSE ---
PT TO ICU S/P CODE BLUE FROM [facility] [place]. PT INTUBATED ON FLOOR, ETT#7.5, 27 CM ONELIA. ON AC/VC 22/500/10/100%. ETCO2 20s. TLC INSERTED TO L IJ UPON ARRIVAL BY PA. PT BROUGHT TO CT SCAN WITHOUT INCIDENT. PLACED ON COOLING BLANKET, GOAL TEMP: 93.2 DEGREES. PA AWARE OF CRITICAL LABS, MEDICATED PER EMAR. BNP ELEVATED, ANASARCA THROUGHOUT, S/P 40 IV LASIX WITH NO UOP. PA AWARE. ?TO RECEIVE HD THIS AM. AFIB ON TELE, HR 80s. SEDATED ON PROPOFOL, DOES NOT FOLLOW COMMANDS, TITRATED FOR VENT SYNCHRONY. LEVOPHED ORDERED/TITRATED TO MAINTAIN MAP>65. LS WITH RHONCHI THROUGHOUT BLOODY INLINE SECRETIONS, HEPARIN SQ HELD, SPUTUM SAMPLE SENT. BLOOD CULTURES SENT, IV ABX GIVEN. CVP INITIATED PER MD ORDER. SKIN INTACT- BRUISING NOTED TO ARMS/ABD, BUTTOCKS RED, EXTREMITIES CYANOTIC BUT IMPROVING.. TO BE PLACED ON AIR LOSS BED. REPOSITIONED Q2H. FAMILY UPDATED BY PA.
[2020-06-05 05:16] LABS: Basophils Percent Auto 0.2 % (0-2); Hematocrit 40.2 % (42-52); Hemoglobin 13.1 g/dl (14.0-18.0); Imm Gran Pct Auto 0.8 % (0.0-0.4); Lymphocytes Absolute Auto 0.8 X10*3/uL (1.2-4.9); Lymphocytes Percent Auto 7.1 % (20-40); MANUAL DIFF FLAG SCAN; Mean Corpuscular HGB Conc 32.6 g/dl (31.0-36.0); Mean Corpuscular Hemoglobin 36.1 pg (27.0-33.0); Mean Corpuscular Volume 110.7 fL (80-98); Mean Platelet Volume 11.2 fL (9.4-12.4); Monocytes Absolute Auto 1.7 X10*3/uL (0.1-1.2); Monocytes Percent Auto 14.2 % (2-11); NRBC Pct Auto 1.1 /100WBC (0.0-0.2); Neutrophils Absolute Auto 9.2 X10*3/uL (2.0-8.3); Neutrophils Percent Auto 77.7 % (45-73); Platelet Count 249 X10*3/uL (160-400); Red Blood Count 3.63 X10*6/uL (4.60-5.80); Red Cell Distribution Width 14.1 % (11.0-16.0); SCAN SMEAR FLAG 1; White Blood Count 11.9 X10*3/uL (4.8-10.8)
[2020-06-05 05:38] LABS: Base Excess VBG -11.8 mmol/L; HCO3 VBG 14 mmol/L; Oxygen Saturation VBG 84.3 %; PCO2 VBG 33 mmhg; PO2 VBG 57 mmhg; pH VBG 7.25 (7.32-7.43)
[2020-06-05 05:46] LABS: Reflex Lactate? Lactic Acid Added
[2020-06-05 05:46] LABS: SLIDE REVIEW VERIFIED
[2020-06-05 06:00] LABS: Anion Gap 26 (12-20); Blood Urea Nitrogen 73 mg/dL (9-16); Calcium 7.8 mg/dL (8.4-10.2); Carbon Dioxide 13 mmol/L (22-29); Chloride 102 mmol/L (96-108); Creatinine Clr Calc Pharmacy 27.7; Estimated Glomerular Filt Rate 14; Glucose Random 124 mg/dL (60-115); Magnesium 2.4 mg/dL (1.6-2.6); Phosphorus 7.5 mg/dL (2.7-4.5); Potassium 4.8 mmol/l (3.3-5.1); Sodium 136 mmol/L (135-145)
[2020-06-05 06:17] LABS: B Type Natriuretic Peptide 10636 pg/mL (<100)
[2020-06-05 06:47] LABS: ~Lactic Acid-LAB USE ONLY 3.3 mmol/L (0.5-2.0)
[2020-06-05 08:37] LABS: Reflex Lactate? 2 Y
[2020-06-05] MEDS: Chlorhexidine Gluc Oral Rinse 15 ML MOUTHWASH BUCCAL ×3 (09:00→21:59)
[2020-06-05] MEDS: 0.9 % Sodium Chloride Flush 3 ML SYRINGE IVFLUSH ×2 (09:00→16:07)
[2020-06-05 09:32] LABS: ~Lactic Acid-LAB USE ONLY 1.9 mmol/L (0.5-2.0)
--- NOTE | 2020-06-05 10:00 | XR_ITS ---
EXAMINATION: XR CHEST CLINICAL INFORMATION: Line placement. COMPARISON: CXR from 06/04/2020 TECHNIQUE: Frontal view of the chest was obtained. FINDINGS: Endotracheal tube is 2.2 cm above the cruz. The tip of the right IJ catheter is in the distal superior vena cava. The tip of the left IJ catheter is in stable position in the proximal SVC, near level of junction of the azygos vein with the SVC. Compared to 06/04/2020, there appears to be interval worsening of patchy bilateral airspace opacity. Small pleural effusions are present. No pneumothorax. Stable appearance of the large cardiomediastinal silhouette. No evidence of pneumomediastinum. Prior right rib fractures observed on CT imaging are not well shown radiographically. XR/XR chest 1V IMPRESSION: * Endotracheal tube is approximately 2.2 cm above the cruz. * Interval placement of a right IJ catheter with its tip located in the distal superior vena cava. No pneumothorax. * Interval worsening of patchy airspace disease.
[2020-06-05 10:51] LABS: Glucose Urine UA NEG (NEG); Leukocyte Esterase Urine 1+ (NEG); Nitrite Urine NEG (NEG); PH 5.5 (5.0-8.0); Specific Gravity - Urine >= 1.030 (1.005-1.025); Urine Blood 3+ (NEG); Urine Ketones NEG (NEG); Urine Protein 1+ MG/DL (NEG-TRACE)
[2020-06-05 10:54] LABS: Appearance Urine HAZY; Color Urine YELLOW
[2020-06-05 11:34] LABS: Influenza A PCR NEGATIVE (Negative); Influenza B PCR NEGATIVE (Negative); Resp Syncy Virus RNA Qual PCR NEGATIVE (Negative); SARS COV2 PCR INHOUSE NEGATIVE (Negative)
--- NOTE | 2020-06-05 11:59 | P.PCNCC_ITS ---
Procedures Procedure Note Procedure Note: This patient has been persistently acidotic for 5 days with pH of 7.12 in metabolic acidosis with negative base excess of over 14 and marked hypervolemia with evidence of predominant right heart failure and status post cardiac arrest unequivocally ATN with 5 days of renal failure needs to have dialysis urgently After sterile preparation and draping in the usual fashion utilizing ultrasound guidance I gained easy entry into the right internal jugular vein passing retro grade with Seldinger technique a J tipped guidewire over which serial dilators and then a 12 [place] dialysis catheter 20 cm length with whose tip terminated in the high right atrium and chest x-ray indicating no complications and excellent placement and we plan today to dialyze and ultrafiltrate and remove as much volume as possible
[2020-06-05] MEDS: Heparin Sodium,Porcine 1,000 UNIT/ML VIAL 1000 UNIT IV (12:07)
[2020-06-05 12:10] LABS: Squamous Epithelial Cell Urine TRACE /LPF; WBC Urine 50-75 /HPF (0-4)
[2020-06-05 12:17] LABS: SARS COV2 IgG Negative (Negative)
--- NOTE | 2020-06-05 12:19 | PM.CCN ---
Critical Care Event Note Summary Code activated: Yes Narrative: This case had a high probability of a clinically significant, sudden, or life threatening deterioration of this patient's condition which required my full and direct attention, intervention and personal management. Reviewed case with mid-level and suggested diagnosis of sepsis after 1 week in the hospital recommended to draw lactic acid and completely culture blood sputum and urine and to cover in addition with 1 dose of Zosyn and 1 dose of vancomycin and in addition felt that the patient had been uremic for the last 5 days with progressive diminution of mental status on continuous BiPAP but because of progressive oliguria became markedly fluid overloaded probably biventricular but predominant right heart failure ultimately leading to cardiac arrest and his atrial fibrillation is new onset initially with a rapid ventricular response and I did a bedside echo after looking at the CT scan which showed extensive bilateral infiltrates and consolidation with a dilated and markedly dysfunctional right ventricle and mildly depressed systolic reserve of the left ventricle with ejection fraction bordering on 50% without segmental wall motion abnormality Certainly cannot completely rule out the possibility of acute pulmonary embolism given the acute on chronic cor pulmonale picture but I think he needs rapid COVID-19 testing because of the appearance of the CT scan probably should have an ultrasound of lower extremities certainly low-dose anticoagulation until we could rule out pulmonary embolism but advanced antibiotic coverage for possible nosocomial component of his pneumonia specially with his risk for continued aspiration on BiPAP but urgent dialysis and so I have a well placed dialysis catheter in the right internal jugular and hopefully we will remove 2 to 2.5 L of volume today follow CVP Critical Care Time (minutes): 60
[2020-06-05] MEDS: Heparin Sodium,Porcine 5,000 UNIT/ML VIAL 5000 UNIT SUBCUT (14:01)
[2020-06-05] MEDS: Digoxin 0.5 MG/2 ML AMPUL 0.25 MG IVPUSH (14:28)
--- NOTE | 2020-06-05 16:04 | XR_ITS ---
EXAMINATION: XR CHEST CLINICAL INFORMATION: Orogastric tube placement COMPARISON: None TECHNIQUE: Frontal view of the chest was obtained. FINDINGS: Since the prior study and NG tube has been placed tip of which is below the diaphragm but not included on the radiograph. ET tube remains in place 2.3 cm above the cruz. Right IJ line with tip in SVC. Left IJ line with tip at SVC innominate junction. Bilateral diffuse airspace disease without significant change. The heart remains enlarged XR/XR chest 1V IMPRESSION: NG tube with its tip below the diaphragm
[2020-06-05] MEDS: Midazolam HCl/NS 50 MG/50 ML PLAST..BAG IVCONT (16:06)
[2020-06-05] MEDS: Midazolam HCl/PF 2 MG/2 ML VIAL 3 MG IVPUSH (16:06)
[2020-06-05 16:11] LABS: Creatinine Urine 181.72 mg/dL; Total Protein Urine Random 105 mg/dL (<12)
--- NOTE | 2020-06-05 16:32 | MHC.CM.PN ---
Patient remains intubated/vented in ICU. Continue to monitor for d/c needs.
[2020-06-05] MEDS: Piperacillin Sodium/Tazobactam 2.25 GM in 0.9 % Sodium Chloride 50 ML IV (17:49)
[2020-06-05] MEDS: propofoL 1,000 MG/100 ML VIAL 37.42 MG IVCONT ×2 (19:42→21:58)
--- NOTE | 2020-06-05 20:03 | PC.NURSE ---
assumed care at 0700. patient was sedate on propofol at 50; patient still moving feet, some slight tachypnea; was eventually biting at ett even with bite block in place; required addition of versed gtt preceded by 3 mg iv push versed per md; with good effect. patient got a HD catheter to right IJ today; dialysis today with 3700 out per md. well tolerated, was able to be titrated to off. patient with slightly high bp now; md aware. patient with diminished ls. bloody inline secretions with some bubbles; md aware. OGT and po thermometer were changed today with good effect. patient on cooling blanket, target temperature 93.2 F, or 34 C; this was reached this afternoon, now temp slightly low, cooling blanket off, md aware. questioning abdominal pressure elevated this evening, evening shift aware, abdominal pressure reading 20. patient cvp was 24-28 this morning, now 16. uop 10-40/hour. skin with mottling, from feet elevated to shoulders by evening, md aware. echo done today with definity. brother of patient updated
--- NOTE | 2020-06-05 21:59 | PM.CCN ---
Critical Care Event Note Summary Code activated: No <MOLLY Estrada - Last Filed: 06/05/20 23:01> Narrative: This case had a high probability of a clinically significant, sudden, or life threatening deterioration of this patient's condition which required my full and direct attention, intervention and personal management. Patient's abdomen noticeably more tense than yesterday, genitals also swollen which is new today. Initial intra-abdominal pressure noted to be 20-21. I ordered VBG, lactate, lipase and a repeat CT scan of the abdomen and pelvis to find the etiology of the compartment syndrome. When speaking with the nurse, it was noted the patient may not have been completely flat for the intra-abdominal pressure reading so we repeated it with the patient in the supine position and it was found to be 15. Patient to remain in supine position. Assessment and plan discussed with Dr. Pfeiffer. <MOLLY Estrada - Last Filed: 06/05/20 23:01> Critical Care Time (minutes): 30 <MOLLY Estrada - Last Filed: 06/05/20 23:01>
[2020-06-06] VITALS (32 sets, daily range): BP systolic 90–159; BP diastolic 42–77; PULSE 85–130; RESP 17–23; TEMP 33.5–37.7; O2SAT 91–100
[2020-06-06] MEDS: propofoL 1,000 MG/100 ML VIAL 37.42 MG IVCONT ×2 (00:20→02:50)
[2020-06-06] MEDS: Piperacillin Sodium/Tazobactam 2.25 GM in 0.9 % Sodium Chloride 50 ML IV ×3 (00:20→17:19)
[2020-06-06] MEDS: Albuterol/Iprat 2.5/0.5MG 3 ML AMPUL.NEB INHALE ×6 (00:22→19:43)
[2020-06-06 00:42] LABS: Lactic Acid 1.7 mmol/L (0.5-2.0)
[2020-06-06 00:43] LABS: Base Excess VBG -9.5 mmol/L; HCO3 VBG 18 mmol/L; Oxygen Saturation VBG 86.2 %; PCO2 VBG 42 mmhg; PO2 VBG 61 mmhg; pH VBG 7.23 (7.32-7.43)
[2020-06-06 02:32] LABS: Lipase 21 U/L (8-78)
[2020-06-06] MEDS: Heparin Sodium,Porcine 5,000 UNIT/ML VIAL 5000 UNIT SUBCUT ×3 (03:27→21:32)
[2020-06-06] MEDS: Thiamine HCL 500 MG in 0.9 % Sodium Chloride 100 ML 210 MG IV (03:27)
[2020-06-06] MEDS: propofoL 1,000 MG/100 ML VIAL 28.07 MG IVCONT ×2 (05:44→08:45)
[2020-06-06] MEDS: Midazolam HCl/NS 50 MG/50 ML PLAST..BAG IVCONT (05:44)
[2020-06-06] MEDS: Pantoprazole Sodium 40 MG/10 ML VIAL IVPUSH (05:44)
[2020-06-06 05:56] LABS: MANUAL DIFF FLAG NO
[2020-06-06 06:15] LABS: Base Excess VBG -5.3 mmol/L; HCO3 VBG 20 mmol/L; Oxygen Saturation VBG 85.4 %; PCO2 VBG 39 mmhg; PO2 VBG 55 mmhg; pH VBG 7.33 (7.32-7.43)
[2020-06-06 06:22] LABS: Basophils Percent Auto 0.3 % (0-2); Eosinophils Percent Auto 0.4 % (0-4); Hematocrit 36.9 % (42-52); Imm Gran Abs Auto 0.03 X10*3/uL (0.00-0.03); Imm Gran Pct Auto 0.4 % (0.0-0.4); Lymphocytes Percent Auto 13.9 % (20-40); Mean Corpuscular HGB Conc 32.5 g/dl (31.0-36.0); Mean Corpuscular Hemoglobin 35.1 pg (27.0-33.0); Mean Corpuscular Volume 107.9 fL (80-98); Mean Platelet Volume 10.7 fL (9.4-12.4); Monocytes Percent Auto 14.3 % (2-11); NRBC Pct Auto 0.7 /100WBC (0.0-0.2); Neutrophils Percent Auto 70.7 % (45-73); Platelet Count 162 X10*3/uL (160-400); Red Blood Count 3.42 X10*6/uL (4.60-5.80); Red Cell Distribution Width 13.9 % (11.0-16.0); White Blood Count 7.1 X10*3/uL (4.8-10.8)
[2020-06-06 06:30] LABS: Anion Gap 19 (12-20); B Type Natriuretic Peptide 4720 pg/mL (<100); Blood Urea Nitrogen 53 mg/dL (9-16); Calcium 7.7 mg/dL (8.4-10.2); Carbon Dioxide 19 mmol/L (22-29); Chloride 102 mmol/L (96-108); Creatinine Clr Calc Pharmacy 37.2; Estimated Glomerular Filt Rate 19; Glucose Random 100 mg/dL (60-115); Magnesium 2.2 mg/dL (1.6-2.6); Phosphorus 4.9 mg/dL (2.7-4.5); Potassium 3.2 mmol/l (3.3-5.1); Sodium 137 mmol/L (135-145)
[2020-06-06 06:34] LABS: INTERNATIONAL NORM RATIO 1.3 (0.9-1.1); Prothrombin Time 15.7 SEC (10.8-13.0)
[2020-06-06 06:36] LABS: Partial Thromboplastin Time 30.2 SEC (24.1-38.0)
[2020-06-06 08:45] LABS: HBS Num1 0.19 mIU/mL (0-7.99); HIV AB/AG Nonreactive (Nonreactive); HIV Num 1 0.17 S/CO (0.00-0.99); ~HepC Num1 0.17 S/CO (0.00-0.79); ~Hepatitis B Surface Antibody NONREACTIVE (Nonreactive); ~Hepatitis C Antibody Nonreactive (Nonreactive)
[2020-06-06] MEDS: Chlorhexidine Gluc Oral Rinse 15 ML MOUTHWASH BUCCAL ×3 (08:45→21:35)
[2020-06-06] MEDS: Potassium Chloride Packet 20 MEQ PACKET PO (08:45)
[2020-06-06] MEDS: Digoxin 0.5 MG/2 ML AMPUL 0.125 MG IVPUSH ×2 (08:45→17:20)
[2020-06-06 09:12] LABS: Syphilis Screen Nonreactive (Nonreactive)
--- NOTE | 2020-06-06 09:25 | PM.PNNEP ---
Subjective Subjective Date of Service: 06/06/20 Principal diagnosis: alcohol withdrawal, atrial fibrillation Interval history: Events noted Had HD yesterday Increased intra abdominal pressure- now improved UO improving Physical Exam Vital Signs: Vital Signs: Last Vital Signs Temp 95.2 F L 06/06/20 08:00 Pulse 106 H 06/06/20 08:45 Resp 22 H 06/06/20 08:00 BP 112/74 06/06/20 08:00 Pulse Ox 98 06/06/20 08:00 Body Mass Index 46.6 Const: General: ill appearing Neck: Neck: Yes supple Resp: Auscultation: rhonchi Cardio: Heart sounds: no click, no murmurs and no rubs Skin: Trauma: no lacerations or abrasions Neuro: Motor exam (neuro): No Asterixis during motor activity present Objective Data Labs CBC & Chem 7: 06/06/20 05:35 06/06/20 05:35 Labs: Laboratory Results - last 24 hr 06/05/20 06/05/20 06/05/20 00:15 04:53 08:51 WBC RBC Hgb Hct MCV MCH MCHC RDW Plt Count MPV Immature Gran % (Auto) Neut % (Auto) Lymph % (Auto) [place] % (Auto) Eos % (Auto) Baso % (Auto) Lymph # (Auto) [place] # (Auto) Eos # (Auto) Baso # (Auto) Abs Immat Gran (auto) Absolute Neuts (auto) Absolute Nucleated RBC Nucleated RBC % (auto) PT INR APTT VBG pH VBG pCO2 VBG pO2 VBG HCO3 VBG O2 Saturation VBG Base Excess Sodium Potassium Chloride Carbon Dioxide Anion Gap BUN Creatinine Estim Creat Clear Calc Estimated GFR Random Glucose Lactic Acid Lactic Acid Fup @ 4Hr 1.9 Calcium Phosphorus Magnesium B-Natriuretic Peptide Lipase Urine Color Urine Appearance Urine pH Ur Specific [place] Urine Protein Urine Glucose (UA) Urine Ketones Urine Blood Urine Nitrite Ur Leukocyte Esterase Urine RBC Urine WBC Ur Squamous Epith Cells Urine Bacteria Hyaline Casts U Random Total Protein Ur Random Sodium Urine Creatinine T.pallidum Ab (EIA) Nonreactive Coronavirus (PCR) Influenza Type A (PCR) Influenza Type B (PCR) RSV RNA Qual (PCR) SARS-CoV-2 IgG Ab Negative 06/05/20 06/05/20 06/05/20 10:12 12:17 Unknown WBC RBC Hgb Hct MCV MCH MCHC RDW Plt Count MPV Immature Gran % (Auto) Neut % (Auto) Lymph % (Auto) [place] % (Auto) Eos % (Auto) Baso % (Auto) Lymph # (Auto) [place] # (Auto) Eos # (Auto) Baso # (Auto) Abs Immat Gran (auto) Absolute Neuts (auto) Absolute Nucleated RBC Nucleated RBC % (auto) PT INR APTT VBG pH VBG pCO2 VBG pO2 VBG HCO3 VBG O2 Saturation VBG Base Excess Sodium Potassium Chloride Carbon Dioxide Anion Gap BUN Creatinine Estim Creat Clear Calc Estimated GFR Random Glucose Lactic Acid Lactic Acid Fup @ 4Hr Calcium Phosphorus Magnesium B-Natriuretic Peptide Lipase Urine Color YELLOW Urine Appearance HAZY Urine pH 5.5 Ur Specific [place] >= 1.030 H Urine Protein 1+ H Urine Glucose (UA) NEG Urine Ketones NEG Urine Blood 3+ H Urine Nitrite NEG Ur Leukocyte Esterase 1+ H Urine RBC 76-150 H Urine WBC 50-75 H Ur Squamous Epith Cells TRACE Urine Bacteria NONE Hyaline Casts 1-4 U Random Total Protein 105 H Ur Random Sodium 34.0 Urine Creatinine 181.72 T.pallidum Ab (EIA) Coronavirus (PCR) NEGATIVE Influenza Type A (PCR) NEGATIVE Influenza Type B (PCR) NEGATIVE RSV RNA Qual (PCR) NEGATIVE SARS-CoV-2 IgG Ab 06/06/20 06/06/20 06/06/20 00:05 00:05 01:50 WBC RBC Hgb Hct MCV MCH MCHC RDW Plt Count MPV Immature Gran % (Auto) Neut % (Auto) Lymph % (Auto) [place] % (Auto) Eos % (Auto) Baso % (Auto) Lymph # (Auto) [place] # (Auto) Eos # (Auto) Baso # (Auto) Abs Immat Gran (auto) Absolute Neuts (auto) Absolute Nucleated RBC Nucleated RBC % (auto) PT INR APTT VBG pH 7.23 L VBG pCO2 42 VBG pO2 61 VBG HCO3 18 VBG O2 Saturation 86.2 VBG Base Excess -9.5 Sodium Potassium Chloride Carbon Dioxide Anion Gap BUN Creatinine Estim Creat Clear Calc Estimated GFR Random Glucose Lactic Acid 1.7 Lactic Acid Fup @ 4Hr Calcium Phosphorus Magnesium B-Natriuretic Peptide Lipase 21 Urine Color Urine Appearance Urine pH Ur Specific [place] Urine Protein Urine Glucose (UA) Urine Ketones Urine Blood Urine Nitrite Ur Leukocyte Esterase Urine RBC Urine WBC Ur Squamous Epith Cells Urine Bacteria Hyaline Casts U Random Total Protein Ur Random Sodium Urine Creatinine T.pallidum Ab (EIA) Coronavirus (PCR) Influenza Type A (PCR) Influenza Type B (PCR) RSV RNA Qual (PCR) SARS-CoV-2 IgG Ab 06/06/20 06/06/20 06/06/20 05:35 05:35 05:35 WBC 7.1 RBC 3.42 L Hgb 12.0 L Hct 36.9 L MCV 107.9 H MCH 35.1 H MCHC 32.5 RDW 13.9 Plt Count 162 D MPV 10.7 Immature Gran % (Auto) 0.4 Neut % (Auto) 70.7 Lymph % (Auto) 13.[address] % (Auto) 14.3 H Eos % (Auto) 0.4 Baso % (Auto) 0.3 Lymph # (Auto) 1.[address] [place] # (Auto) 1.0 Eos # (Auto) 0.0 Baso # (Auto) 0.0 Abs Immat Gran (auto) 0.03 Absolute Neuts (auto) 5.0 Absolute Nucleated RBC 0.050 H Nucleated RBC % (auto) 0.7 H PT 15.7 H INR 1.3 H APTT 30.2 VBG pH VBG pCO2 VBG pO2 VBG HCO3 VBG O2 Saturation VBG Base Excess Sodium 137 Potassium 3.2 L D Chloride 102 Carbon Dioxide 19 L Anion Gap 19 BUN 53 H Creatinine 3.29 H Estim Creat Clear Calc 37.2 Estimated GFR 19 Random Glucose 100 Lactic Acid Lactic Acid Fup @ 4Hr Calcium 7.7 L Phosphorus 4.9 H Magnesium 2.2 B-Natriuretic Peptide Lipase Urine Color Urine Appearance Urine pH Ur Specific [place] Urine Protein Urine Glucose (UA) Urine Ketones Urine Blood Urine Nitrite Ur Leukocyte Esterase Urine RBC Urine WBC Ur Squamous Epith Cells Urine Bacteria Hyaline Casts U Random Total Protein Ur Random Sodium Urine Creatinine T.pallidum Ab (EIA) Coronavirus (PCR) Influenza Type A (PCR) Influenza Type B (PCR) RSV RNA Qual (PCR) SARS-CoV-2 IgG Ab 06/06/20 06/06/20 05:35 05:35 WBC RBC Hgb Hct MCV MCH MCHC RDW Plt Count MPV Immature Gran % (Auto) Neut % (Auto) Lymph % (Auto) [place] % (Auto) Eos % (Auto) Baso % (Auto) Lymph # (Auto) [place] # (Auto) Eos # (Auto) Baso # (Auto) Abs Immat Gran (auto) Absolute Neuts (auto) Absolute Nucleated RBC Nucleated RBC % (auto) PT INR APTT VBG pH 7.33 VBG pCO2 39 VBG pO2 55 VBG HCO3 20 VBG O2 Saturation 85.4 VBG Base Excess -5.3 Sodium Potassium Chloride Carbon Dioxide Anion Gap BUN Creatinine Estim Creat Clear Calc Estimated GFR Random Glucose Lactic Acid Lactic Acid Fup @ 4Hr Calcium Phosphorus Magnesium B-Natriuretic Peptide 4720 H Lipase Urine Color Urine Appearance Urine pH Ur Specific [place] Urine Protein Urine Glucose (UA) Urine Ketones Urine Blood Urine Nitrite Ur Leukocyte Esterase Urine RBC Urine WBC Ur Squamous Epith Cells Urine Bacteria Hyaline Casts U Random Total Protein Ur Random Sodium Urine Creatinine T.pallidum Ab (EIA) Coronavirus (PCR) Influenza Type A (PCR) Influenza Type B (PCR) RSV RNA Qual (PCR) SARS-CoV-2 IgG Ab Microbiology Microbiology Results: Microbiology 06/05/20 03:31 Sputum - Suctioned Gram Stain - Final 06/05/20 03:31 Sputum - Suctioned Sputum Culture - Preliminary Normal so far. 06/05/20 03:40 Blood - Venous Blood Culture - Preliminary No growth after 24 hours. 06/05/20 03:36 Blood - Venous Blood Culture - Preliminary No growth after 24 hours. 06/04/20 11:45 Blood - Venous Blood Culture - Preliminary No growth after 24 hours. 06/04/20 11:45 Blood - Venous Blood Culture - Preliminary No growth after 24 hours. 06/04/20 11:35 Urine Catheterized - Powers Catheter Urine Culture - Final No growth. Assessment & Plan Assessment and plan (1) Acute kidney failure: Problem details: Most likely has ATN; He was on ACEi/NSAID- could have contributed to ischemic ATN Sediments bland HD again today to remove fluids Expect renal recovery Continue to avoid nephrotoxins and hypotension Status: Acute Time Spent With Patient Time: Total time spent is greater than 50% in coordination of care (as documented) at patient's floor/unit and/or counseling patient:
[2020-06-06 09:29] LABS: HBc Num1 0.13 S/CO (0.00-0.79); HBsAGNum1 0.17 S/CO (0.00-0.99); Hepatitis B Core Antibody Nonreactive (Nonreactive); Hepatitis B Surface Antigen Negative (Negative)
[2020-06-06] MEDS: 0.9 % Sodium Chloride Flush 3 ML SYRINGE IVFLUSH ×2 (09:48→17:20)
--- NOTE | 2020-06-06 10:59 | MHC.CM.PN ---
Patient remains intubated/vented in ICU. Received telephone call from patient's brother/HCP, Ortiz. Patient's workers' compensation hearings officer is asking for proof that patient is intubated/vented in ICU. Letter faxed to Mr Turcios at [facility] to [phone]. Letter and fax confirmation sent to brother, Ortiz, via mail at [address] [place] [phone]. Continue to monitor for d/c needs.
--- NOTE | 2020-06-06 11:01 | MHC.CLN ---
F/U PT IS NOW INTUBATED AND SEDATED NSG DID NOT START TF YET ORDER FOR NEPRO AT MAX GOAL 40CC/HR WITH 240CC FREE WATER Q 6HRS WILL PROVIDE 1728KCALS (2469KCALS WITH SEDATION; 30KCALS/KG), 78G PROTEIN (.96G/KG), 2216CC TOTAL WATER FROM FORMULA AND FLUSHES (27CC/KG) MONITOR TOLERANCE, RESIDUALS AND LYTES
[2020-06-06] MEDS: Heparin Sodium,Porcine 1,000 UNIT/ML VIAL 1000 UNIT IV (11:11)
[2020-06-06] MEDS: propofoL 1,000 MG/100 ML VIAL 18.6 MG IVCONT ×2 (14:25→19:30)
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
--- NOTE | 2020-06-06 15:13 | PC.NURSE ---
Pt remains sedated on propofol at 20mcg and versed at 2mcg, levo turned on to 0.05mcg during dialysis for low bp and map, levo off at 1430 for MAP >70, pt repositioned q2h, dialysis treatment today, per dialysis nurse 2L removed, CVP currently 9, barrier cream applied to buttocks, update given to patients brother this am, no tube feeding at this time per MD, pt on AC settings on vent, will cont to monitor
[2020-06-06 17:26] LABS: Vancomycin Random 15.3 mcg/mL (15-20)
--- NOTE | 2020-06-06 20:02 | PC.NURSE ---
assumed care at 1600. patient still sedate on propofol 10 and versed 2. patient with hr 110-120; afib- digoxin per md. pupils sluggish and reactive, no cough or gag currently. patient with peep lowered from 10 to [address] torrez. patient spo2 96% on 40% fio2. ls dim. patient with blood tinged inline secretions; md aware. patient has edema: right arm elbow to hand +4 pitting, greater than left arm--md aware. patient has edema at hips +2-3 pitting; penis very swollen, worse than yesterday--dr. torrez aware and assessed.
[2020-06-06] MEDS: Metoprolol Tartrate 5 MG/5 ML VIAL IVPUSH (21:32)
[2020-06-06] MEDS: propofoL 1,000 MG/100 ML VIAL 27.9 MG IVCONT (22:26)
[2020-06-07] VITALS (34 sets, daily range): BP systolic 95–165; BP diastolic 39–81; PULSE 103–130; RESP 20–30; TEMP 36.6–37.9; O2SAT 89–118
--- NOTE | 2020-06-07 | US_ITS ---
EXAMINATION: US VENOUS DUPLEX UPPER EXTREMITY, RIGHT CLINICAL INFORMATION: Right arm swelling. Possible subclavian vein thrombosis. COMPARISON: None TECHNIQUE: Grayscale imaging of the right upper extremity veins was performed, with and without compression, along with color Doppler and spectral Doppler interrogation. FINDINGS: Normal pulsatile flow is detected within the widely patent right internal jugular and subclavian veins. The grayscale and pulsed color Doppler images show normal appearance of the right axillary vein. The basilic, brachial and cephalic veins are normal, as well. There is a segment of focally occlusive thrombus of the median cubital vein (a superficial vein). No focal fluid collection in the visualized extremity. The radial and ulnar veins in the forearm are patent. Mild edema is present in subcutaneous tissues of the forearm. US/US venous duplex UE RT IMPRESSION: * No evidence of deep vein thrombosis in the right upper extremity. * There is focal superficial vein thrombosis involving the median cubital vein.
[2020-06-07] MEDS: Albuterol/Iprat 2.5/0.5MG 3 ML AMPUL.NEB INHALE ×6 (00:02→19:37)
[2020-06-07] MEDS: propofoL 1,000 MG/100 ML VIAL 27.9 MG IVCONT ×2 (02:15→05:57)
[2020-06-07] MEDS: Piperacillin Sodium/Tazobactam 2.25 GM in 0.9 % Sodium Chloride 50 ML IV ×3 (02:16→17:31)
[2020-06-07] MEDS: 0.9 % Sodium Chloride Flush 3 ML SYRINGE IVFLUSH ×4 (02:16→23:20)
--- NOTE | 2020-06-07 05:00 | XR_ITS ---
EXAMINATION: XR CHEST CLINICAL INFORMATION: Ventilator patient. COMPARISON: Previous day TECHNIQUE: Frontal view of the chest was obtained. FINDINGS: Endotracheal tube terminates 2.4 cm above the cruz. Enteric tube courses below the stomach. Right internal jugular central venous catheter terminates within the superior cavoatrial junction. Similar-appearing bilateral patchy coalescent airspace opacities. Bilateral lower lobe atelectasis/collapse. Small bilateral pleural effusions and accompanying atelectasis suspected. XR/XR chest 1V IMPRESSION: Stable exam.
[2020-06-07 05:26] LABS: Basophils Percent Auto 0.3 % (0-2); Eosinophils Percent Auto 0.4 % (0-4); Hemoglobin 12.6 g/dl (14.0-18.0); Imm Gran Abs Auto 0.05 X10*3/uL (0.00-0.03); Imm Gran Pct Auto 0.5 % (0.0-0.4); Lymphocytes Absolute Auto 1.2 X10*3/uL (1.2-4.9); Lymphocytes Percent Auto 13.1 % (20-40); MANUAL DIFF FLAG SCAN; Mean Corpuscular HGB Conc 33.2 g/dl (31.0-36.0); Mean Corpuscular Hemoglobin 35.5 pg (27.0-33.0); Mean Platelet Volume 11.4 fL (9.4-12.4); Monocytes Absolute Auto 1.7 X10*3/uL (0.1-1.2); Monocytes Percent Auto 17.8 % (2-11); NRBC Pct Auto 0.7 /100WBC (0.0-0.2); Neutrophils Absolute Auto 6.4 X10*3/uL (2.0-8.3); Neutrophils Percent Auto 67.9 % (45-73); Platelet Count 172 X10*3/uL (160-400); Red Blood Count 3.55 X10*6/uL (4.60-5.80); Red Cell Distribution Width 14.3 % (11.0-16.0); SCAN SMEAR FLAG 1; White Blood Count 9.4 X10*3/uL (4.8-10.8)
[2020-06-07 05:33] LABS: INTERNATIONAL NORM RATIO 1.2 (0.9-1.1); Prothrombin Time 13.8 SEC (10.8-13.0)
[2020-06-07 05:35] LABS: Base Excess VBG -5.1 mmol/L; HCO3 VBG 21 mmol/L; Oxygen Saturation VBG 84.1 %; PCO2 VBG 42 mmhg; PO2 VBG 55 mmhg; pH VBG 7.31 (7.32-7.43)
[2020-06-07 05:52] LABS: Anion Gap 16 (12-20); Blood Urea Nitrogen 39 mg/dL (9-16); Calcium 8.4 mg/dL (8.4-10.2); Carbon Dioxide 21 mmol/L (22-29); Chloride 103 mmol/L (96-108); Estimated Glomerular Filt Rate 28; Glucose Random 113 mg/dL (60-115); Magnesium 2.2 mg/dL (1.6-2.6); Phosphorus 3.5 mg/dL (2.7-4.5); Potassium 3.6 mmol/l (3.3-5.1); Sodium 136 mmol/L (135-145)
[2020-06-07] MEDS: Heparin Sodium,Porcine 5,000 UNIT/ML VIAL 5000 UNIT SUBCUT ×3 (05:58→19:43)
[2020-06-07 06:07] LABS: SLIDE REVIEW VERIFIED
[2020-06-07] MEDS: Pantoprazole Sodium 40 MG/10 ML VIAL IVPUSH (06:38)
[2020-06-07] MEDS: Digoxin 0.5 MG/2 ML AMPUL 0.25 MG IVPUSH (07:00)
[2020-06-07] MEDS: Furosemide 100 MG/10 ML VIAL 80 MG IVPUSH (08:49)
[2020-06-07] MEDS: Potassium Chloride Packet 20 MEQ PACKET PO ×2 (08:50→22:06)
[2020-06-07] MEDS: Chlorhexidine Gluc Oral Rinse 15 ML MOUTHWASH BUCCAL ×3 (08:50→22:05)
[2020-06-07] MEDS: Metoprolol Tartrate 5 MG/5 ML VIAL IVPUSH (08:53)
[2020-06-07] MEDS: Thiamine HCL 250 MG in 0.9 % Sodium Chloride 100 ML 205 MG IV (09:20)
[2020-06-07] MEDS: Furosemide 500 MG in Container,Empty 0 ML IVCONT (09:29)
[2020-06-07] MEDS: propofoL 1,000 MG/100 ML VIAL 28.07 MG IVCONT ×5 (10:03→23:43)
[2020-06-07] MEDS: Midazolam HCl/NS 50 MG/50 ML PLAST..BAG IVCONT (10:04)
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
--- NOTE | 2020-06-07 15:52 | P.PNNP_ITS ---
Subjective Subjective Date of Service: 06/07/20 Principal diagnosis: alcohol withdrawal, atrial fibrillation Interval history: Seen and examined. Events noted Physical Exam Vital Signs: Vital Signs: Last Vital Signs Temp 99.0 F 06/07/20 15:00 Pulse 119 H 06/07/20 15:39 Resp 22 H 06/07/20 15:00 BP 138/69 06/07/20 15:39 Pulse Ox 94 06/07/20 15:00 Body Mass Index 46.6 Const: Other: Vented Neck: Neck: Yes normal visual inspection Resp: Auscultation: diminished lung sounds Cardio: Heart sounds: no rubs GI: Palpation (GI): Soft to palpation Neuro: Other: sedated Objective Data Labs CBC & Chem 7: 06/07/20 05:00 06/07/20 05:00 Labs: Laboratory Results - last 24 hr 06/06/20 06/07/20 06/07/20 16:17 05:00 05:00 WBC 9.4 RBC 3.55 L Hgb 12.6 L Hct 38.0 L MCV 107.0 H MCH 35.5 H MCHC 33.2 RDW 14.3 Plt Count 172 MPV 11.4 Immature Gran % (Auto) 0.5 H Neut % (Auto) 67.9 Lymph % (Auto) 13.1 L [place] % (Auto) 17.8 H Eos % (Auto) 0.4 Baso % (Auto) 0.3 Lymph # (Auto) 1.2 [place] # (Auto) 1.7 H Eos # (Auto) 0.0 Baso # (Auto) 0.0 Abs Immat Gran (auto) 0.05 H Absolute Neuts (auto) 6.4 Absolute Nucleated RBC 0.070 H Nucleated RBC % (auto) 0.7 H Smear Tech's Comments VERIFIED PT 13.8 H INR 1.2 H APTT 30.0 VBG pH VBG pCO2 VBG pO2 VBG HCO3 VBG O2 Saturation VBG Base Excess Sodium Potassium Chloride Carbon Dioxide Anion Gap BUN Creatinine Estim Creat Clear Calc Estimated GFR Random Glucose Calcium Phosphorus Magnesium Random Vancomycin 15.3 06/07/20 06/07/20 05:00 05:00 WBC RBC Hgb Hct MCV MCH MCHC RDW Plt Count MPV Immature Gran % (Auto) Neut % (Auto) Lymph % (Auto) [place] % (Auto) Eos % (Auto) Baso % (Auto) Lymph # (Auto) [place] # (Auto) Eos # (Auto) Baso # (Auto) Abs Immat Gran (auto) Absolute Neuts (auto) Absolute Nucleated RBC Nucleated RBC % (auto) Smear Tech's Comments PT INR APTT VBG pH 7.31 L VBG pCO2 42 VBG pO2 55 VBG HCO3 21 VBG O2 Saturation 84.1 VBG Base Excess -5.1 Sodium 136 Potassium 3.6 Chloride 103 Carbon Dioxide 21 L Anion Gap 16 BUN 39 H Creatinine 2.40 H Estim Creat Clear Calc 51.0 Estimated GFR 28 Random Glucose 113 Calcium 8.4 D Phosphorus 3.5 Magnesium 2.2 Random Vancomycin Microbiology Microbiology Results: Microbiology 06/05/20 03:31 Sputum - Suctioned Gram Stain - Final 06/05/20 03:31 Sputum - Suctioned Sputum Culture - Final 06/05/20 03:40 Blood - Venous Blood Culture - Preliminary No growth after 48 hours. 06/05/20 03:36 Blood - Venous Blood Culture - Preliminary No growth after 48 hours. 06/04/20 11:45 Blood - Venous Blood Culture - Preliminary No growth after 48 hours. 06/04/20 11:45 Blood - Venous Blood Culture - Preliminary No growth after 48 hours. 06/04/20 11:35 Urine Catheterized - Powers Catheter Urine Culture - Final No growth. Assessment & Plan Assessment and plan (1) Acute kidney failure: Problem details: Most likely has ATN; He was on ACEI/NSAID- could have contributed to ATN Sediments bland; Shall c/w current supportive care Expect renal recovery; Continue to avoid nephrotoxins and hypotension Status: Acute Time Spent With Patient Time: Total time spent is greater than 50% in coordination of care (as documented) at patient's floor/unit and/or counseling patient:
[2020-06-07 16:33] LABS: Anion Gap 15 (12-20); Blood Urea Nitrogen 40 mg/dL (9-16); Calcium 8.2 mg/dL (8.4-10.2); Carbon Dioxide 22 mmol/L (22-29); Chloride 104 mmol/L (96-108); Creatinine Clr Calc Pharmacy 54.7; Estimated Glomerular Filt Rate 30; Glucose Random 125 mg/dL (60-115); Potassium 3.8 mmol/l (3.3-5.1); Sodium 137 mmol/L (135-145)
[2020-06-07] MEDS: Digoxin 0.5 MG/2 ML AMPUL 0.125 MG IVPUSH (17:30)
--- NOTE | 2020-06-07 19:30 | PC.NURSE ---
shift update; pt remains intubated and sedate on propofol and versed gtt; sedation off at ~0835 this am- see emar for details- sedation restarted at 1005 after hr increasing and tachypnea; ventilating on ac settings; afib with rvr on monitor; prn metoprolol given as well as 80 mg lasix and lasix gtt started- u/o responding well to lasix gtt; chem repeat done this afternoon; brother updated- question dr torrez if want to start tube feeds- no orders at this time; og k+ replacement ordered and given;sizewise bed ordered for skin breakdwn on coccyx, air movement device also on patient, repositioning q2h- barrier cream applied, digoxin given this evening; report given to leona guillen rn at 1900
[2020-06-08] VITALS (35 sets, daily range): BP systolic 111–199; BP diastolic 55–105; PULSE 92–129; RESP 16–31; TEMP 36.3–37; O2SAT 92–99; BMI 39.4
[2020-06-08] MEDS: Albuterol/Iprat 2.5/0.5MG 3 ML AMPUL.NEB INHALE ×6 (00:03→20:50)
[2020-06-08] MEDS: Piperacillin Sodium/Tazobactam 2.25 GM in 0.9 % Sodium Chloride 50 ML IV ×3 (01:05→18:32)
[2020-06-08] MEDS: propofoL 1,000 MG/100 ML VIAL 23.39 MG IVCONT ×2 (03:42→06:56)
[2020-06-08] MEDS: Heparin Sodium,Porcine 5,000 UNIT/ML VIAL 5000 UNIT SUBCUT ×2 (03:50→12:34)
[2020-06-08 05:54] LABS: MANUAL DIFF FLAG NO
[2020-06-08] MEDS: Pantoprazole Sodium 40 MG/10 ML VIAL IVPUSH (05:57)
[2020-06-08 06:00] LABS: Basophils Percent Auto 0.4 % (0-2); Eosinophils Percent Auto 0.4 % (0-4); Hematocrit 35.7 % (42-52); Hemoglobin 11.8 g/dl (14.0-18.0); Imm Gran Abs Auto 0.04 X10*3/uL (0.00-0.03); Imm Gran Pct Auto 0.5 % (0.0-0.4); Lymphocytes Absolute Auto 1.2 X10*3/uL (1.2-4.9); Mean Corpuscular HGB Conc 33.1 g/dl (31.0-36.0); Mean Corpuscular Hemoglobin 35.2 pg (27.0-33.0); Mean Corpuscular Volume 106.6 fL (80-98); Mean Platelet Volume 11.5 fL (9.4-12.4); Monocytes Absolute Auto 1.4 X10*3/uL (0.1-1.2); Monocytes Percent Auto 17.3 % (2-11); Neutrophils Absolute Auto 5.6 X10*3/uL (2.0-8.3); Neutrophils Percent Auto 67.4 % (45-73); Platelet Count 139 X10*3/uL (160-400); Red Blood Count 3.35 X10*6/uL (4.60-5.80); Red Cell Distribution Width 14.4 % (11.0-16.0); White Blood Count 8.3 X10*3/uL (4.8-10.8)
[2020-06-08 06:08] LABS: pH VBG 7.41 (7.32-7.43)
[2020-06-08 06:09] LABS: HCO3 VBG 23 mmol/L; Oxygen Saturation VBG 81.8 %; PCO2 VBG 38 mmhg; PO2 VBG 47 mmhg
[2020-06-08 06:14] LABS: INTERNATIONAL NORM RATIO 1.2 (0.9-1.1); Prothrombin Time 14.2 SEC (10.8-13.0)
[2020-06-08 06:17] LABS: Partial Thromboplastin Time 32.1 SEC (24.1-38.0)
[2020-06-08 06:19] LABS: Anion Gap 16 (12-20); Blood Urea Nitrogen 39 mg/dL (9-16); Calcium 8.1 mg/dL (8.4-10.2); Carbon Dioxide 23 mmol/L (22-29); Chloride 104 mmol/L (96-108); Creatinine Clr Calc Pharmacy 59.1; Estimated Glomerular Filt Rate 37; Glucose Random 121 mg/dL (60-115); Magnesium 1.8 mg/dL (1.6-2.6); Phosphorus 3.2 mg/dL (2.7-4.5); Potassium 3.7 mmol/l (3.3-5.1); Sodium 139 mmol/L (135-145)
[2020-06-08 06:32] LABS: B Type Natriuretic Peptide 1747 pg/mL (<100)
--- NOTE | 2020-06-08 07:25 | PC.NURSE ---
Patient's vent settings were not changed during shift. Per PA lasix drip was shut off at 2014, based on a CVP of 11. Levophed was titrated based on parameters of MAP >70 and SBP >110. Levophed was shut off at 0025 and remained off for remainder of shift. Patient afebrile.
--- NOTE | 2020-06-08 09:15 | PM.PNNEP ---
Subjective Subjective Date of Service: 06/08/20 Principal diagnosis: alcohol withdrawal, atrial fibrillation Interval history: Seen and examined. Events noted. Urine output better. CVP improved Physical Exam Vital Signs: Vital Signs: Last Vital Signs Temp 97.7 F 06/08/20 08:00 Pulse 100 06/08/20 08:00 Resp 22 H 06/08/20 08:00 BP 163/74 H 06/08/20 08:00 Pulse Ox 97 06/08/20 08:00 Body Mass Index 39.4 Const: Other: Vented Resp: Auscultation: diminished lung sounds Cardio: Rate: regular rate GI: Palpation (GI): Soft to palpation Neuro: Other: sedated Objective Data Labs CBC & Chem 7: 06/08/20 05:24 06/08/20 05:24 Labs: Laboratory Results - last 24 hr 06/07/20 06/08/20 06/08/20 15:53 05:24 05:24 WBC 8.3 RBC 3.35 L Hgb 11.8 L Hct 35.7 L MCV 106.6 H MCH 35.2 H MCHC 33.1 RDW 14.4 Plt Count 139 L MPV 11.5 Immature Gran % (Auto) 0.5 H Neut % (Auto) 67.4 Lymph % (Auto) 14.0 L [place] % (Auto) 17.3 H Eos % (Auto) 0.4 Baso % (Auto) 0.4 Lymph # (Auto) 1.2 [place] # (Auto) 1.4 H Eos # (Auto) 0.0 Baso # (Auto) 0.0 Abs Immat Gran (auto) 0.04 H Absolute Neuts (auto) 5.6 Absolute Nucleated RBC 0.000 Nucleated RBC % (auto) 0.0 PT 14.2 H INR 1.2 H APTT 32.1 VBG pH VBG pCO2 VBG pO2 VBG HCO3 VBG O2 Saturation VBG Base Excess Sodium 137 Potassium 3.8 Chloride 104 Carbon Dioxide 22 Anion Gap 15 BUN 40 H Creatinine 2.24 H Estim Creat Clear Calc 54.7 Estimated GFR 30 Random Glucose 125 H Calcium 8.2 L Phosphorus Magnesium B-Natriuretic Peptide 06/08/20 06/08/20 06/08/20 05:24 05:24 05:24 WBC RBC Hgb Hct MCV MCH MCHC RDW Plt Count MPV Immature Gran % (Auto) Neut % (Auto) Lymph % (Auto) [place] % (Auto) Eos % (Auto) Baso % (Auto) Lymph # (Auto) [place] # (Auto) Eos # (Auto) Baso # (Auto) Abs Immat Gran (auto) Absolute Neuts (auto) Absolute Nucleated RBC Nucleated RBC % (auto) PT INR APTT VBG pH 7.41 VBG pCO2 38 VBG pO2 47 VBG HCO3 23 VBG O2 Saturation 81.8 VBG Base Excess -1.0 Sodium 139 Potassium 3.7 Chloride 104 Carbon Dioxide 23 Anion Gap 16 BUN 39 H Creatinine 1.89 H Estim Creat Clear Calc 59.1 Estimated GFR 37 Random Glucose 121 H Calcium 8.1 L Phosphorus 3.2 Magnesium 1.8 B-Natriuretic Peptide 1747 H Microbiology Microbiology Results: Microbiology 06/05/20 03:31 Sputum - Suctioned Gram Stain - Final 06/05/20 03:31 Sputum - Suctioned Sputum Culture - Final 06/05/20 03:40 Blood - Venous Blood Culture - Preliminary No growth after 48 hours. 06/05/20 03:36 Blood - Venous Blood Culture - Preliminary No growth after 48 hours. 06/04/20 11:45 Blood - Venous Blood Culture - Preliminary No growth after 48 hours. 06/04/20 11:45 Blood - Venous Blood Culture - Preliminary No growth after 48 hours. 06/04/20 11:35 Urine Catheterized - Powers Catheter Urine Culture - Final No growth. Assessment & Plan Assessment and plan (1) Acute kidney failure: Problem details: Most likely has ATN; He was on ACEI/NSAID- could have contributed to ATN Sediments bland; Renal functions improved. Shall c/w current supportive care Expect renal recovery; Continue to avoid nephrotoxins and hypotension Status: Acute Time Spent With Patient Time: Total time spent is greater than 50% in coordination of care (as documented) at patient's floor/unit and/or counseling patient:
[2020-06-08] MEDS: Thiamine HCL 250 MG in 0.9 % Sodium Chloride 100 ML 205 MG IV (09:16)
[2020-06-08] MEDS: Potassium Chloride Packet 20 MEQ PACKET PO (09:20)
[2020-06-08] MEDS: Chlorhexidine Gluc Oral Rinse 15 ML MOUTHWASH BUCCAL ×3 (09:20→22:04)
[2020-06-08] MEDS: 0.9 % Sodium Chloride Flush 3 ML SYRINGE IVFLUSH ×2 (09:20→15:32)
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
[2020-06-08] MEDS: Furosemide 100 MG/10 ML VIAL 80 MG IVPUSH (15:07)
[2020-06-08] MEDS: Digoxin 0.5 MG/2 ML AMPUL 0.125 MG IVPUSH (15:08)
[2020-06-08] MEDS: propofoL 1,000 MG/100 ML VIAL 20 MG IVCONT ×3 (15:33→23:22)
[2020-06-08 16:12] LABS: Hemoglobin 12.6 g/dl (14.0-18.0); PLT CLUMP 1
[2020-06-08 16:13] LABS: Hematocrit 38.5 % (42-52); Mean Corpuscular HGB Conc 32.7 g/dl (31.0-36.0); Mean Corpuscular Hemoglobin 35.3 pg (27.0-33.0); Mean Corpuscular Volume 107.8 fL (80-98); Mean Platelet Volume 11.7 fL (9.4-12.4); NRBC Pct Auto 0.2 /100WBC (0.0-0.2); Platelet Count 137 X10*3/uL (160-400); Red Blood Count 3.57 X10*6/uL (4.60-5.80); Red Cell Distribution Width 14.3 % (11.0-16.0); White Blood Count 9.2 X10*3/uL (4.8-10.8)
[2020-06-08 16:17] LABS: INTERNATIONAL NORM RATIO 1.1 (0.9-1.1); Prothrombin Time 13.4 SEC (10.8-13.0)
[2020-06-08 16:20] LABS: Partial Thromboplastin Time 33.2 SEC (24.1-38.0)
[2020-06-08] MEDS: Enoxaparin Sodium 120 MG/0.8 ML SYRINGE SUBCUT (18:32)
--- NOTE | 2020-06-08 19:10 | PC.NURSE ---
sedation vacation completed today for approx 2 hours pt BP [address] Aguilar aware, bedside echo preformed by MD ordered 80mg lasix and dig for pt. Lasix had good effect >200 out. Pt remains with edema to distal extremities and gross amt of Scrotal edema. Pt HR 100-115 Afib. Pt has some ST depression noted MD aware. Pt Vent settings adjusted by MD . AC at 20 [id number] peep 6. pt ET tube is 7.5 25 @ lip pt Vent detaches randomly with no provocation Dr Deng attempts to adjust fitting with no success. Report to sales facilitator regarding this given. Tube feed begun at 10ml/hr Prop at 20 at this writting. LS remain diminished and coarse.
[2020-06-09] VITALS (39 sets, daily range): BP systolic 131–185; BP diastolic 53–115; PULSE 83–121; RESP 15–26; TEMP 36.7–37.5; O2SAT 90–100
[2020-06-09] MEDS: Albuterol/Iprat 2.5/0.5MG 3 ML AMPUL.NEB INHALE ×6 (00:54→20:02)
[2020-06-09] MEDS: Piperacillin Sodium/Tazobactam 2.25 GM in 0.9 % Sodium Chloride 50 ML IV ×2 (01:53→10:21)
[2020-06-09] MEDS: propofoL 1,000 MG/100 ML VIAL 20 MG IVCONT ×2 (03:27→21:34)
--- NOTE | 2020-06-09 05:00 | XR_ITS ---
EXAMINATION: XR CHEST CLINICAL INFORMATION: Pneumonia follow-up COMPARISON: 06/07/2020 TECHNIQUE: Frontal view of the chest was obtained. FINDINGS: Endotracheal tube terminates 5.4 cm above the cruz. Enteric tube terminates within the stomach. Right internal jugular central venous introducer terminates at the superior cavoatrial junction. Patchy and coalescent airspace opacities throughout the mid and lower lungs bilaterally, with layering effusion suspected as well. No pneumothorax. Cardiomegaly and pulmonary venous congestion. XR/XR chest 1V IMPRESSION: Stable bilateral patchy and hazy airspace opacities throughout the mid and lower lungs, likely layering bilateral pleural effusions. No definite change from the previous exam.
[2020-06-09 05:12] LABS: MANUAL DIFF FLAG NO
[2020-06-09 05:16] LABS: Basophils Percent Auto 0.3 % (0-2); Eosinophils Absolute Auto 0.1 X10*3/uL (0.0-0.4); Hematocrit 38.4 % (42-52); Hemoglobin 12.3 g/dl (14.0-18.0); Imm Gran Abs Auto 0.05 X10*3/uL (0.00-0.03); Imm Gran Pct Auto 0.6 % (0.0-0.4); Lymphocytes Absolute Auto 1.2 X10*3/uL (1.2-4.9); Lymphocytes Percent Auto 14.1 % (20-40); Mean Corpuscular Hemoglobin 34.6 pg (27.0-33.0); Mean Corpuscular Volume 107.9 fL (80-98); Mean Platelet Volume 11.7 fL (9.4-12.4); Monocytes Absolute Auto 1.5 X10*3/uL (0.1-1.2); Monocytes Percent Auto 16.8 % (2-11); Neutrophils Absolute Auto 5.9 X10*3/uL (2.0-8.3); Neutrophils Percent Auto 67.2 % (45-73); Platelet Count 142 X10*3/uL (160-400); Red Blood Count 3.56 X10*6/uL (4.60-5.80); Red Cell Distribution Width 14.2 % (11.0-16.0); White Blood Count 8.7 X10*3/uL (4.8-10.8)
[2020-06-09 05:21] LABS: INTERNATIONAL NORM RATIO 1.2 (0.9-1.1); Prothrombin Time 14.5 SEC (10.8-13.0)
[2020-06-09 05:23] LABS: Partial Thromboplastin Time 36.9 SEC (24.1-38.0)
[2020-06-09 05:24] LABS: Base Excess VBG -0.4 mmol/L; HCO3 VBG 26 mmol/L; Oxygen Saturation VBG 73.2 %; PCO2 VBG 48 mmhg; PO2 VBG 42 mmhg; pH VBG 7.35 (7.32-7.43)
[2020-06-09 05:39] LABS: B Type Natriuretic Peptide 2070 pg/mL (<100)
[2020-06-09 05:40] LABS: Albumin Level 2.6 g/dL (3.5-5.0); Anion Gap 15 (12-20); Blood Urea Nitrogen 34 mg/dL (9-16); Calcium 8.4 mg/dL (8.4-10.2); Carbon Dioxide 27 mmol/L (22-29); Chloride 103 mmol/L (96-108); Creatinine Clr Calc Pharmacy 82.1; Estimated Glomerular Filt Rate 54; Glucose Random 116 mg/dL (60-115); Magnesium 1.6 mg/dL (1.6-2.6); Phosphorus 3.5 mg/dL (2.7-4.5); Potassium 3.9 mmol/l (3.3-5.1); Sodium 141 mmol/L (135-145)
[2020-06-09] MEDS: propofoL 1,000 MG/100 ML VIAL 30 MG IVCONT ×2 (07:24→18:34)
[2020-06-09] MEDS: 0.9 % Sodium Chloride Flush 3 ML SYRINGE IVFLUSH ×2 (07:29→16:42)
--- NOTE | 2020-06-09 09:17 | P.PNNP_ITS ---
Subjective Subjective Date of Service: 06/09/20 Principal diagnosis: alcohol withdrawal, atrial fibrillation Interval history: Events noted UO has increased Physical Exam Vital Signs: Vital Signs: Last Vital Signs Temp 98.1 F 06/09/20 09:00 Pulse 99 06/09/20 09:00 Resp 20 06/09/20 09:00 BP 155/85 H 06/09/20 09:00 Pulse Ox 96 06/09/20 09:00 Body Mass Index 39.4 Const: General: ill appearing Neck: Neck: Yes supple Resp: Auscultation: rhonchi Cardio: Heart sounds: no click, no murmurs and no rubs Skin: Trauma: no lacerations or abrasions Neuro: Motor exam (neuro): No Asterixis during motor activity present Objective Data Labs CBC & Chem 7: 06/09/20 04:36 06/09/20 04:36 Labs: Laboratory Results - last 24 hr 06/08/20 06/08/20 06/09/20 15:45 15:45 04:36 WBC 9.2 8.7 RBC 3.57 L 3.56 L Hgb 12.6 L 12.3 L Hct 38.5 L 38.4 L MCV 107.8 H 107.9 H MCH 35.3 H 34.6 H MCHC 32.7 32.0 RDW 14.3 14.2 Plt Count 137 L 142 L MPV 11.7 11.7 Immature Gran % (Auto) 0.6 H Neut % (Auto) 67.2 Lymph % (Auto) 14.1 L [place] % (Auto) 16.8 H Eos % (Auto) 1.0 Baso % (Auto) 0.3 Lymph # (Auto) 1.2 [place] # (Auto) 1.5 H Eos # (Auto) 0.1 Baso # (Auto) 0.0 Abs Immat Gran (auto) 0.05 H Absolute Neuts (auto) 5.9 Absolute Nucleated RBC 0.020 H 0.000 Nucleated RBC % (auto) 0.2 0.0 PT 13.4 H INR 1.1 APTT 33.2 VBG pH VBG pCO2 VBG pO2 VBG HCO3 VBG O2 Saturation VBG Base Excess Sodium Potassium Chloride Carbon Dioxide Anion Gap BUN Creatinine Estim Creat Clear Calc Estimated GFR Random Glucose Calcium Phosphorus Magnesium B-Natriuretic Peptide Albumin 06/09/20 06/09/2006/09/20 04:36 04:36 04:36 WBC RBC Hgb Hct MCV MCH MCHC RDW Plt Count MPV Immature Gran % (Auto) Neut % (Auto) Lymph % (Auto) [place] % (Auto) Eos % (Auto) Baso % (Auto) Lymph # (Auto) [place] # (Auto) Eos # (Auto) Baso # (Auto) Abs Immat Gran (auto) Absolute Neuts (auto) Absolute Nucleated RBC Nucleated RBC % (auto) PT 14.5 H INR 1.2 H APTT 36.9 VBG pH VBG pCO2 VBG pO2 VBG HCO3 VBG O2 Saturation VBG Base Excess Sodium 141 Potassium 3.9 Chloride 103 Carbon Dioxide 27 Anion Gap 15 BUN 34 H Creatinine 1.36 Estim Creat Clear Calc 82.1 Estimated GFR 54 Random Glucose 116 H Calcium 8.4 Phosphorus 3.5 Magnesium 1.6 B-Natriuretic Peptide 2070 H Albumin 2.6 L 06/09/20 04:36 WBC RBC Hgb Hct MCV MCH MCHC RDW Plt Count MPV Immature Gran % (Auto) Neut % (Auto) Lymph % (Auto) [place] % (Auto) Eos % (Auto) Baso % (Auto) Lymph # (Auto) [place] # (Auto) Eos # (Auto) Baso # (Auto) Abs Immat Gran (auto) Absolute Neuts (auto) Absolute Nucleated RBC Nucleated RBC % (auto) PT INR APTT VBG pH 7.35 VBG pCO2 48 VBG pO2 42 VBG HCO3 26 VBG O2 Saturation 73.2 VBG Base Excess -0.4 Sodium Potassium Chloride Carbon Dioxide Anion Gap BUN Creatinine Estim Creat Clear Calc Estimated GFR Random Glucose Calcium Phosphorus Magnesium B-Natriuretic Peptide Albumin Microbiology Microbiology Results: Microbiology 06/05/20 03:31 Sputum - Suctioned Gram Stain - Final 06/05/20 03:31 Sputum - Suctioned Sputum Culture - Final 06/05/20 03:40 Blood - Venous Blood Culture - Preliminary No growth after 48 hours. 06/05/20 03:36 Blood - Venous Blood Culture - Preliminary No growth after 48 hours. 06/04/20 11:45 Blood - Venous Blood Culture - Preliminary No growth after 48 hours. 06/04/20 11:45 Blood - Venous Blood Culture - Preliminary No growth after 48 hours. 06/04/20 11:35 Urine Catheterized - Powers Catheter Urine Culture - Final No growth. Assessment & Plan Assessment and plan (1) Acute kidney failure: Problem details: Most likely has ATN; He was on ACEI/NSAID- could have contributed to ATN Sediments bland; Renal functions improved. Shall c/w current supportive care Expect renal recovery; Continue to avoid nephrotoxins and hypotension Will hold off on HD today and reassess Status: Acute Time Spent With Patient Time: Total time spent is greater than 50% in coordination of care (as documented) at patient's floor/unit and/or counseling patient:
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
[2020-06-09] MEDS: Chlorhexidine Gluc Oral Rinse 15 ML MOUTHWASH BUCCAL ×3 (10:21→20:38)
[2020-06-09] MEDS: Albumin Human 25 % 100 ML IV ×3 (10:22→20:38)
[2020-06-09] MEDS: Digoxin 0.5 MG/2 ML AMPUL 0.125 MG IVPUSH (10:22)
[2020-06-09] MEDS: Spironolactone 25 MG TABLET PO (10:22)
[2020-06-09] MEDS: Potassium Chloride Packet 20 MEQ PACKET PO (10:23)
[2020-06-09 10:41] LABS: INTERNATIONAL NORM RATIO 1.1 (0.9-1.1); Prothrombin Time 13.5 SEC (10.8-13.0)
--- NOTE | 2020-06-09 10:43 | MHC.CLN ---
F/U PT RECEIVING NEPRO AT MAX GOAL 40CC/HR WITH 120CC FREE WATER Q 6HRS WILL PROVIDE 1728KCALS (2256KCALS WITH SEDATION; 28KCALS/KG), 78G PROTEIN (.96G/KG), 1736CC TOTAL WATER FROM FORMULA AND FLUSHES (21CC/KG) MONITOR TOLERANCE, RESIDUALS AND LYTES
[2020-06-09 10:44] LABS: PTT Heparin Drip 32.6 SEC (53-77.9)
[2020-06-09] MEDS: Furosemide 40 MG/4 ML VIAL IVPUSH ×2 (10:51→20:38)
--- NOTE | 2020-06-09 10:56 | MHC.CM.PN ---
Patient remains intubated/vented in ICU. Patient is from home without services. Continue to monitor for d/c needs.
[2020-06-09] MEDS: Heparin Sodium,Porcine/1/2NS 25,000 UNIT/250 ML IV.SOLN 18.48 UNIT IVCONT (11:11)
--- NOTE | 2020-06-09 11:18 | PC.NURSE ---
HEPARIN GTT STARTED AT 14 UNITS/KG/HR AT 1115. GTT WEIGHT WAS 132 KG. NEXT PTT-HD TO BE DRAWN AT 1715 PER PROTOCOL.
[2020-06-09] MEDS: Metoprolol Tartrate 5 MG/5 ML VIAL IVPUSH ×2 (12:01→16:58)
[2020-06-09 14:43] LABS: Leukocytes Stool Qualitative NEGATIVE (NEGATIVE)
--- NOTE | 2020-06-09 15:25 | PM.CCPN ---
Subjective Subjective Date of Service: 06/09/20 Interval History: 60-year-old gentleman with underlying history of obesity, MJ on CPAP, hypertension, alcohol abuse admitted 05/29/2020 with alcohol withdrawal and treated with phenobarbital alcohol withdrawal protocol with hospital course complicated by cardiopulmonary arrest 03/16/2020, intubated during the CPR, and transferred to intensive care unit. Further hospital course significant for right-sided congestive heart failure improving with diuresis, encephalopathy with poor arousal during sedation vacation, and AFib. Physical Exam Vital Signs: Vital Signs: Last Vital Signs Temp 99.3 F 06/09/20 14:00 Pulse 103 H 06/09/20 14:00 Resp 20 06/09/20 14:00 BP 163/79 H 06/09/20 14:00 Pulse Ox 100 06/09/20 14:00 Body Mass Index 39.4 Const: General: no acute distress and other (Anasarca); No alert (With sedation vacation) or awake Nutritional Appearance: obese Eyes: Sclerae: sclerae normal Neck: Neck: Yes no lymphadenopathy, Yes trachea midline and Yes supple Resp: Auscultation: crackles (Diffuse bilateral) Cardio: Rate: regular rate Rhythm: abnormal rhythm irregularly irregular Heart sounds: no gallops, no murmurs and no rubs GI: Palpation (GI): Soft to palpation and Other GI palpation findings present ( Nontender) Auscultation: normal bowel sounds Extrem: General: No clubbing, No cyanosis and Yes edema (2+ bilateral) Objective Data Labs CBC & Chem 7: 06/09/20 04:36 06/09/20 04:36 Labs: Laboratory Results - last 24 hr 06/08/20 06/08/20 06/09/20 15:45 15:45 04:36 WBC 9.2 8.7 RBC 3.57 L 3.56 L Hgb 12.6 L 12.3 L Hct 38.5 L 38.4 L MCV 107.8 H 107.9 H MCH 35.3 H 34.6 H MCHC 32.7 32.0 RDW 14.3 14.2 Plt Count 137 L 142 L MPV 11.7 11.7 Immature Gran % (Auto) 0.6 H Neut % (Auto) 67.2 Lymph % (Auto) 14.1 L [place] % (Auto) 16.8 H Eos % (Auto) 1.0 Baso % (Auto) 0.3 Lymph # (Auto) 1.2 [place] # (Auto) 1.5 H Eos # (Auto) 0.1 Baso # (Auto) 0.0 Abs Immat Gran (auto) 0.05 H Absolute Neuts (auto) 5.9 Absolute Nucleated RBC 0.020 H 0.000 Nucleated RBC % (auto) 0.2 0.0 PT 13.4 H INR 1.1 APTT 33.2 PTT (Heparin Protocol) VBG pH VBG pCO2 VBG pO2 VBG HCO3 VBG O2 Saturation VBG Base Excess Sodium Potassium Chloride Carbon Dioxide Anion Gap BUN Creatinine Estim Creat Clear Calc Estimated GFR Random Glucose Calcium Phosphorus Magnesium B-Natriuretic Peptide Albumin Stool Leukocytes, Qual 06/09/20 06/09/20 06/09/20 04:36 04:36 04:36 WBC RBC Hgb Hct MCV MCH MCHC RDW Plt Count MPV Immature Gran % (Auto) Neut % (Auto) Lymph % (Auto) [place] % (Auto) Eos % (Auto) Baso % (Auto) Lymph # (Auto) [place] # (Auto) Eos # (Auto) Baso # (Auto) Abs Immat Gran (auto) Absolute Neuts (auto) Absolute Nucleated RBC Nucleated RBC % (auto) PT 14.5 H INR 1.2 H APTT 36.9 PTT (Heparin Protocol) VBG pH VBG pCO2 VBG pO2 VBG HCO3 VBG O2 Saturation VBG Base Excess Sodium 141 Potassium 3.9 Chloride 103 Carbon Dioxide 27 Anion Gap 15 BUN 34 H Creatinine 1.36 Estim Creat Clear Calc 82.1 Estimated GFR 54 Random Glucose 116 H Calcium 8.4 Phosphorus 3.5 Magnesium 1.6 B-Natriuretic Peptide 2070 H Albumin 2.6 L Stool Leukocytes, Qual 06/09/20 06/09/20 06/09/20 04:36 10:12 13:11 WBC RBC Hgb Hct MCV MCH MCHC RDW Plt Count MPV Immature Gran % (Auto) Neut % (Auto) Lymph % (Auto) [place] % (Auto) Eos % (Auto) Baso % (Auto) Lymph # (Auto) [place] # (Auto) Eos # (Auto) Baso # (Auto) Abs Immat Gran (auto) Absolute Neuts (auto) Absolute Nucleated RBC Nucleated RBC % (auto) PT 13.5 H INR 1.1 APTT PTT (Heparin Protocol) 32.6 L VBG pH 7.35 VBG pCO2 48 VBG pO2 42 VBG HCO3 26 VBG O2 Saturation 73.2 VBG Base Excess -0.4 Sodium Potassium Chloride Carbon Dioxide Anion Gap BUN Creatinine Estim Creat Clear Calc Estimated GFR Random Glucose Calcium Phosphorus Magnesium B-Natriuretic Peptide Albumin Stool Leukocytes, Qual NEGATIVE Microbiology Microbiology Results: Microbiology 06/04/20 11:45 Blood - Venous Blood Culture - Final No growth after 5 days. 06/04/20 11:45 Blood - Venous Blood Culture - Final No growth after 5 days. 06/05/20 03:31 Sputum - Suctioned Gram Stain - Final 06/05/20 03:31 Sputum - Suctioned Sputum Culture - Final 06/05/20 03:40 Blood - Venous Blood Culture - Preliminary No growth after 48 hours. 06/05/20 03:36 Blood - Venous Blood Culture - Preliminary No growth after 48 hours. 06/04/20 11:35 Urine Catheterized - Powers Catheter Urine Culture - Final No growth. Progress Note: A&P Assessment and plan (1) Diastolic CHF, acute on chronic: Status: Acute Assessment and Plan: Assessment: 60-year-old gentleman with underlying morbid obesity, MJ/obesity hyperventilation syndrome alcoholism admitted on 05/29/2020 with alcohol withdrawal with hospital course complicated by cardiopulmonary arrest status post successful resuscitation, intubated during CPR, further complicated by encephalopathy and atrial fibrillation. Plan: Neuro: Encephalopathy, toxic versus metabolic versus critical care related versus anoxic. If no improvement with sedation vacation 24-48 hours will obtain MRI. Underlying history of alcohol intoxication/withdrawal. Status post phenobarbital alcohol withdrawal protocol. Cardiac: Acute on chronic right-sided congestive heart failure improving with diuresis. Continue with diuresis. AFib, continue with rate control and anticoagulation. Pulmonary: Acute hypoxic respiratory failure, intubated during the CPR. Continue to titrate of ventilatory support as tolerated. Renal: No acute issues. Endo: No acute issues. GI: No acute issues. ID: No acute issues Heme/Onc: No acute issues. Psych: No acute issues. Miscellaneous: No acute issues. Prophylaxis: Heparin drip, famotidine Diet: Tube feeds Critical care time spent: 60 minutes (2) Cardiac arrest with successful resuscitation: Status: Acute (3) Acute kidney failure: Status: Acute (4) Obesity hypoventilation syndrome: Problem details: on CPAP and duonebs at home Status: Acute (5) Encephalopathy: Status: Acute (6) Alcohol dependency: Status: Acute Time Spent With Patient Total time spent with greater than 50% in coordination of care (as documented) at patient's floor/unit and/or counseling patient:: 0 Critical Care Time Critical Care Time (minutes): 60
[2020-06-09 17:38] LABS: INTERNATIONAL NORM RATIO 1.2 (0.9-1.1); Prothrombin Time 14.2 SEC (10.8-13.0)
[2020-06-09 17:41] LABS: PTT Heparin Drip 66.2 SEC (53-77.9)
--- NOTE | 2020-06-09 18:46 | PC.NURSE ---
PT SEDATED WITH PROPOFOL, UNABLE TO FOLLOW COMMANDS, +C&G. SEDATION VACATION STARTED AT 1015. PROPOFOL GTT AND TUBE FEEDS TURNED OFF. VENT SETTINGS CHANGED TO PCV 18/6, PEEP 6, FI02 45%. PTS SBP INCREASED TO 180S, MD NOTIFIED, PRN LOPRESSOR 5 MG IV GIVEN X 2 THROUGHOUT SEDATION VACATION FOR TREATMENT OF SBP PER MD. PT STILL UNABLE TO FOLLOW COMMANDS, DOES NOT RESPOND TO NAME CALLED, EYES OPEN HALF WAY ON THEIR OWN, MINIMAL NON-PURPOSEFUL LEFT HAND MOVEMENT NOTED, MD AWARE OF FINDINGS. SEDATION RESUMED AT 1830, PROPOFOL RESTARTED AT 30 MCG/KG/MIN, TUBE FEEDS CHANGED AND RESTARTED AT 40 ML/HR. VENT SETTINGS RESUMED AT AC 20 TV 600 PEEP 6 FI02 35%. AFEBRILE. HR 90S-120S, AFIB ON TELE. HEPARIN GTT STARTED AT 1115 AT 14 UNITS/KG/HR. PTT-HD AT 1715 WAS WNL, NO CHANGE TO GTT. NEXT PTT-HD FOR 0015. ON COMING RN NOTIFIED. LARGE BILATERAL BRUISING TO LOWER ABDOMEN NOTED AND BRUISING OUTLINES WITH SURGICAL MARKER TO MONITOR. GENERALIZED EDEMA +3 NOTED WELL SCROTAL EDEMA, LASIX 40 MG ADMINISTERED. JHAVERI OUTPUT WNL. LARGE BM X 3. BATHED, Q2HR REPO, CREAM APPLIED, PREVALON MATTRESS UTILIZED, DIALYSIS DRESSING CHANGED. HCP/BROTHER UPDATED BY THIS RN. REVERIFIED WITH HCP THAT WE ARE NOT TO GIVE INFORMATION TO PATIENTS , PLEASE DIRECT HER TO CALL HCP RANDAL FOR UPDATES. WOUND CONSULT PA BEDSIDE THIS AM TO ASSESS SKIN. CALLS SLIT TO COCCYX: MACERATION. POWDER APPLIED TO KEEP AREA DRY PER PA.
[2020-06-09 20:41] LABS: Anion Gap 15 (12-20); Blood Urea Nitrogen 29 mg/dL (9-16); Calcium 8.4 mg/dL (8.4-10.2); Carbon Dioxide 27 mmol/L (22-29); Chloride 104 mmol/L (96-108); Creatinine Clr Calc Pharmacy 92.3; Estimated Glomerular Filt Rate > 60; Glucose Random 106 mg/dL (60-115); Potassium 3.9 mmol/l (3.3-5.1); Sodium 142 mmol/L (135-145)
[2020-06-10] VITALS (33 sets, daily range): BP systolic 149–185; BP diastolic 67–104; PULSE 79–108; RESP 20–22; TEMP 36.4–37.5; O2SAT 90–100
--- NOTE | 2020-06-10 | MR_ITS ---
MRI OF THE BRAIN WITHOUT IV CONTRAST INDICATION: Altered mental status. Not waking up with sedation medication. COMPARISON: None available. TECHNIQUE: Multiplanar multisequence MR imaging of the brain was obtained without IV contrast. FINDINGS: There is no hydrocephalus, extra-axial surface collection, or herniation. There is mild chronic microangiopathy. The major flow voids at the skull base are preserved. There is no acute infarct on diffusion-weighted imaging. There is no intracranial hemorrhage on the gradient recalled echo acquisition. The midline structures are normal. The cerebellar tonsils are normally positioned. The cerebellum and brainstem are normal. The craniocervical junction is normal. Osseous marrow signal intensity is homogenous. The visualized soft tissues are unremarkable. There is a 2 cm retention cyst within the left maxillary sinus. Large mastoid effusions bilaterally. MR/MR head/brain wo con IMPRESSION: - No acute intracranial findings. No acute infarcts. - There is mild chronic microangiopathy. - There is a 2 cm retention cyst within the left maxillary sinus. Large mastoid effusions bilaterally.
[2020-06-10 00:31] LABS: PTT Heparin Drip 28.9 SEC (53-77.9)
[2020-06-10] MEDS: Albuterol/Iprat 2.5/0.5MG 3 ML AMPUL.NEB INHALE ×6 (00:37→19:28)
[2020-06-10] MEDS: Heparin Sodium,Porcine 5,000 UNIT/ML VIAL 10000 UNIT IVPUSH (00:48)
[2020-06-10] MEDS: Heparin Sodium,Porcine/1/2NS 25,000 UNIT/250 ML IV.SOLN 18.48 UNIT IVCONT (00:49)
[2020-06-10] MEDS: Metoprolol Tartrate 5 MG/5 ML VIAL IVPUSH (01:33)
[2020-06-10] MEDS: propofoL 1,000 MG/100 ML VIAL 20 MG IVCONT (03:02)
[2020-06-10] MEDS: Albumin Human 25 % 100 ML IV (03:04)
[2020-06-10 05:56] LABS: MANUAL DIFF FLAG NO
[2020-06-10 05:58] LABS: Basophils Percent Auto 0.3 % (0-2); Eosinophils Absolute Auto 0.2 X10*3/uL (0.0-0.4); Eosinophils Percent Auto 1.7 % (0-4); Hemoglobin 11.7 g/dl (14.0-18.0); Imm Gran Abs Auto 0.08 X10*3/uL (0.00-0.03); Imm Gran Pct Auto 0.9 % (0.0-0.4); Lymphocytes Absolute Auto 1.3 X10*3/uL (1.2-4.9); Lymphocytes Percent Auto 14.9 % (20-40); Mean Corpuscular HGB Conc 32.5 g/dl (31.0-36.0); Mean Corpuscular Volume 107.8 fL (80-98); Mean Platelet Volume 11.9 fL (9.4-12.4); Monocytes Absolute Auto 1.2 X10*3/uL (0.1-1.2); Monocytes Percent Auto 12.8 % (2-11); Neutrophils Absolute Auto 6.3 X10*3/uL (2.0-8.3); Neutrophils Percent Auto 69.4 % (45-73); Platelet Count 142 X10*3/uL (160-400); Red Blood Count 3.34 X10*6/uL (4.60-5.80); Red Cell Distribution Width 14.2 % (11.0-16.0)
[2020-06-10 06:03] LABS: INTERNATIONAL NORM RATIO 1.2 (0.9-1.1); Prothrombin Time 14.4 SEC (10.8-13.0)
[2020-06-10] MEDS: propofoL 1,000 MG/100 ML VIAL 40 MG IVCONT (06:07)
[2020-06-10 06:12] LABS: Base Excess VBG 5.2 mmol/L; HCO3 VBG 30 mmol/L; Oxygen Saturation VBG 78.1 %; PCO2 VBG 46 mmhg; PO2 VBG 44 mmhg; pH VBG 7.44 (7.32-7.43)
[2020-06-10 06:22] LABS: Ammonia 35 umol/L (13-55)
[2020-06-10 06:36] LABS: Albumin Level 3.5 g/dL (3.5-5.0)
[2020-06-10 07:28] LABS: PTT Heparin Drip 106.6 SEC (53-77.9)
[2020-06-10] MEDS: 0.9 % Sodium Chloride Flush 3 ML SYRINGE IVFLUSH ×3 (07:52→23:28)
--- NOTE | 2020-06-10 09:01 | P.PNNP_ITS ---
Subjective Subjective Date of Service: 06/10/20 Principal diagnosis: alcohol withdrawal, atrial fibrillation Interval history: Events noted UO improving Still intubated on vent Physical Exam Vital Signs: Vital Signs: Last Vital Signs Temp 99.1 F 06/10/20 08:00 Pulse 86 06/10/20 08:00 Resp 20 06/10/20 08:00 BP 170/92 H 06/10/20 08:00 Pulse Ox 93 06/10/20 08:00 Body Mass Index 39.4 Const: General: ill appearing Neck: Neck: Yes supple Resp: Auscultation: rhonchi Cardio: Heart sounds: no click, no murmurs and no rubs Skin: Trauma: no lacerations or abrasions Neuro: Motor exam (neuro): No Asterixis during motor activity present Objective Data Labs CBC & Chem 7: 06/10/20 05:18 06/09/20 19:52 Labs: Laboratory Results - last 24 hr 06/09/20 06/09/20 06/09/20 10:12 13:11 17:17 WBC RBC Hgb Hct MCV MCH MCHC RDW Plt Count MPV Immature Gran % (Auto) Neut % (Auto) Lymph % (Auto) [place] % (Auto) Eos % (Auto) Baso % (Auto) Lymph # (Auto) [place] # (Auto) Eos # (Auto) Baso # (Auto) Abs Immat Gran (auto) Absolute Neuts (auto) Absolute Nucleated RBC Nucleated RBC % (auto) PT 13.5 H 14.2 H INR 1.1 1.2 H PTT (Heparin Protocol) 32.6 L VBG pH VBG pCO2 VBG pO2 VBG HCO3 VBG O2 Saturation VBG Base Excess Sodium Potassium Chloride Carbon Dioxide Anion Gap BUN Creatinine Estim Creat Clear Calc Estimated GFR Random Glucose Calcium Ammonia Albumin Stool Leukocytes, Qual NEGATIVE 06/09/20 06/09/20 06/10/20 17:17 19:52 00:15 WBC RBC Hgb Hct MCV MCH MCHC RDW Plt Count MPV Immature Gran % (Auto) Neut % (Auto) Lymph % (Auto) [place] % (Auto) Eos % (Auto) Baso % (Auto) Lymph # (Auto) [place] # (Auto) Eos # (Auto) Baso # (Auto) Abs Immat Gran (auto) Absolute Neuts (auto) Absolute Nucleated RBC Nucleated RBC % (auto) PT INR PTT (Heparin Protocol) 66.2 D 28.9 L D VBG pH VBG pCO2 VBG pO2 VBG HCO3 VBG O2 Saturation VBG Base Excess Sodium 142 Potassium 3.9 Chloride 104 Carbon Dioxide 27 Anion Gap 15 BUN 29 H Creatinine 1.21 Estim Creat Clear Calc 92.3 Estimated GFR > 60 Random Glucose 106 Calcium 8.4 Ammonia Albumin Stool Leukocytes, Qual 06/10/20 06/10/20 06/10/20 05:18 05:18 05:18 WBC 9.0 RBC 3.34 L Hgb 11.7 L Hct 36.0 L MCV 107.8 H MCH 35.0 H MCHC 32.5 RDW 14.2 Plt Count 142 L MPV 11.9 Immature Gran % (Auto) 0.9 H Neut % (Auto) 69.4 Lymph % (Auto) 14.9 L [place] % (Auto) 12.8 H Eos % (Auto) 1.7 Baso % (Auto) 0.3 Lymph # (Auto) 1.3 [place] # (Auto) 1.2 Eos # (Auto) 0.2 Baso # (Auto) 0.0 Abs Immat Gran (auto) 0.08 H Absolute Neuts (auto) 6.3 Absolute Nucleated RBC 0.000 Nucleated RBC % (auto) 0.0 PT INR PTT (Heparin Protocol) VBG pH VBG pCO2 VBG pO2 VBG HCO3 VBG O2 Saturation VBG Base Excess Sodium Potassium Chloride Carbon Dioxide Anion Gap BUN Creatinine Estim Creat Clear Calc Estimated GFR Random Glucose Calcium Ammonia 35 Albumin 3.5 D Stool Leukocytes, Qual 06/10/20 06/10/20 06/10/20 05:18 05:18 06:58 WBC RBC Hgb Hct MCV MCH MCHC RDW Plt Count MPV Immature Gran % (Auto) Neut % (Auto) Lymph % (Auto) [place] % (Auto) Eos % (Auto) Baso % (Auto) Lymph # (Auto) [place] # (Auto) Eos # (Auto) Baso # (Auto) Abs Immat Gran (auto) Absolute Neuts (auto) Absolute Nucleated RBC Nucleated RBC % (auto) PT 14.4 H INR 1.2 H PTT (Heparin Protocol) 106.6 H D VBG pH 7.44 H VBG pCO2 46 VBG pO2 44 VBG HCO3 30 VBG O2 Saturation 78.1 VBG Base Excess 5.2 Sodium Potassium Chloride Carbon Dioxide Anion Gap BUN Creatinine Estim Creat Clear Calc Estimated GFR Random Glucose Calcium Ammonia Albumin Stool Leukocytes, Qual Microbiology Microbiology Results: Microbiology 06/05/20 03:40 Blood - Venous Blood Culture - Final No growth after 5 days. 06/05/20 03:36 Blood - Venous Blood Culture - Final No growth after 5 days. 06/04/20 11:45 Blood - Venous Blood Culture - Final No growth after 5 days. 06/04/20 11:45 Blood - Venous Blood Culture - Final No growth after 5 days. 06/05/20 03:31 Sputum - Suctioned Gram Stain - Final 06/05/20 03:31 Sputum - Suctioned Sputum Culture - Final 06/04/20 11:35 Urine Catheterized - Powers Catheter Urine Culture - Final No growth. Assessment & Plan Assessment and plan (1) Acute kidney failure: Problem details: Due to ATN Renal fx is improving No indication for HD today Watch UO and labs Status: Acute Time Spent With Patient Time: Total time spent is greater than 50% in coordination of care (as documented) at patient's floor/unit and/or counseling patient:
[2020-06-10 09:18] LABS: Ammonia 34 umol/L (13-55)
[2020-06-10 09:33] LABS: Alanine Aminotransferase 22 U/L (0-40); Albumin Level 3.5 g/dL (3.5-5.0); Alkaline Phosphatase 84 U/L (39-117); Anion Gap 13 (12-20); Aspartate Amino Transferase 69 U/L (5-37); Bilirubin Total 1.8 mg/dL (0.0-1.0); Blood Urea Nitrogen 27 mg/dL (9-16); Carbon Dioxide 33 mmol/L (22-29); Chloride 101 mmol/L (96-108); Creatinine Clr Calc Pharmacy 101.6; Estimated Glomerular Filt Rate > 60; Glucose Random 125 mg/dL (60-115); Potassium 3.7 mmol/l (3.3-5.1); Sodium 143 mmol/L (135-145); Total Protein 6.7 g/dL (6.5-8.0)
[2020-06-10 09:43] LABS: PTT Heparin Drip 69.6 SEC (53-77.9)
[2020-06-10] MEDS: Thiamine HCL 100 MG TABLET PO (10:44)
[2020-06-10] MEDS: Spironolactone 25 MG TABLET PO (10:44)
[2020-06-10] MEDS: Furosemide 40 MG/4 ML VIAL IVPUSH ×2 (10:44→20:23)
[2020-06-10] MEDS: Potassium Chloride Packet 20 MEQ PACKET PO (10:45)
[2020-06-10] MEDS: Digoxin 0.5 MG/2 ML AMPUL 0.125 MG IVPUSH (10:45)
[2020-06-10] MEDS: Chlorhexidine Gluc Oral Rinse 15 ML MOUTHWASH BUCCAL ×3 (10:45→20:23)
--- NOTE | 2020-06-10 10:52 | MHC.CM.PN ---
Per ICU MD rounds. Pt remains intubated and vented. No change in condition. plan is to reduce sedation and assess status. Will follow for d/c needs
[2020-06-10] MEDS: propofoL 1,000 MG/100 ML VIAL 28.07 MG IVCONT ×5 (11:08→23:56)
[2020-06-10] MEDS: Heparin Sodium,Porcine/1/2NS 25,000 UNIT/250 ML IV.SOLN 19.8 UNIT IVCONT ×2 (13:52→23:36)
--- NOTE | 2020-06-10 15:18 | PC.NURSE ---
Pt on AC settings on vent, sedation vacation from 0850- 1145, pt opened eyes, does not follow commands, coughs/bucks vent, small amt inline and oral secretions noted, nepro running at 40, water flushes q6h, TLC and dialysis cath remain intact, propofol on at 30mcg at this time, pt went to MRI this am, rectal tube and nazario intact, pt repositioned, pad changed, heparin drip at 15 units/kg/hr next PTTHD due at 1605. will cont to monitor
--- NOTE | 2020-06-10 16:24 | PM.CCPN ---
Subjective Subjective Date of Service: 06/10/20 Interval History: 60-year-old gentleman with underlying history of obesity, MJ on CPAP, hypertension, alcohol abuse admitted 05/29/2020 with alcohol withdrawal and treated with phenobarbital alcohol withdrawal protocol with hospital course complicated by cardiopulmonary arrest 03/16/2020, intubated during the CPR, and transferred to intensive care unit. Further hospital course significant for right-sided congestive heart failure improving with diuresis, encephalopathy with poor arousal during sedation vacation, and AFib. No events overnight. Poor arousal with sedation vacation. MRI head obtained and showed no acute findings. Physical Exam Vital Signs: Vital Signs: Last Vital Signs Temp 98.6 F 06/10/20 12:00 Pulse 88 06/10/20 15:13 Resp 20 06/10/20 15:00 BP 159/90 H 06/10/20 15:00 Pulse Ox 91 L 06/10/20 15:00 Body Mass Index 39.4 Const: General: no acute distress; No alert or awake Nutritional Appearance: obese Eyes: Sclerae: sclerae normal Neck: Neck: Yes no lymphadenopathy, Yes trachea midline and Yes supple Resp: Auscultation: clear to auscultation bilaterally Cardio: Rate: regular rate Rhythm: abnormal rhythm irregularly irregular Heart sounds: no gallops, no murmurs and no rubs GI: Palpation (GI): Soft to palpation and Other GI palpation findings present ( Nontender) Auscultation: normal bowel sounds Extrem: General: No clubbing, No cyanosis and Yes edema (1+ bilateral) Objective Data Labs CBC & Chem 7: 06/10/20 05:18 06/10/20 08:49 Labs: Laboratory Results - last 24 hr 06/09/20 06/09/20 06/09/20 17:17 17:17 19:52 WBC RBC Hgb Hct MCV MCH MCHC RDW Plt Count MPV Immature Gran % (Auto) Neut % (Auto) Lymph % (Auto) [place] % (Auto) Eos % (Auto) Baso % (Auto) Lymph # (Auto) [place] # (Auto) Eos # (Auto) Baso # (Auto) Abs Immat Gran (auto) Absolute Neuts (auto) Absolute Nucleated RBC Nucleated RBC % (auto) PT 14.2 H INR 1.2 H APTT PTT (Heparin Protocol) 66.2 D VBG pH VBG pCO2 VBG pO2 VBG HCO3 VBG O2 Saturation VBG Base Excess Sodium 142 Potassium 3.9 Chloride 104 Carbon Dioxide 27 Anion Gap 15 BUN 29 H Creatinine 1.21 Estim Creat Clear Calc 92.3 Estimated GFR > 60 Random Glucose 106 Calcium 8.4 Total Bilirubin AST ALT Alkaline Phosphatase Ammonia Total Protein Albumin 06/10/20 06/10/20 06/10/20 00:15 05:18 05:18 WBC 9.0 RBC 3.34 L Hgb 11.7 L Hct 36.0 L MCV 107.8 H MCH 35.0 H MCHC 32.5 RDW 14.2 Plt Count 142 L MPV 11.9 Immature Gran % (Auto) 0.9 H Neut % (Auto) 69.4 Lymph % (Auto) 14.9 L [place] % (Auto) 12.8 H Eos % (Auto) 1.7 Baso % (Auto) 0.3 Lymph # (Auto) 1.3 [place] # (Auto) 1.2 Eos # (Auto) 0.2 Baso # (Auto) 0.0 Abs Immat Gran (auto) 0.08 H Absolute Neuts (auto) 6.3 Absolute Nucleated RBC 0.000 Nucleated RBC % (auto) 0.0 PT INR APTT PTT (Heparin Protocol) 28.9 L D VBG pH VBG pCO2 VBG pO2 VBG HCO3 VBG O2 Saturation VBG Base Excess Sodium Potassium Chloride Carbon Dioxide Anion Gap BUN Creatinine Estim Creat Clear Calc Estimated GFR Random Glucose Calcium Total Bilirubin AST ALT Alkaline Phosphatase Ammonia 35 Total Protein Albumin 06/10/20 06/10/20 06/10/20 05:18 05:18 05:18 WBC RBC Hgb Hct MCV MCH MCHC RDW Plt Count MPV Immature Gran % (Auto) Neut % (Auto) Lymph % (Auto) [place] % (Auto) Eos % (Auto) Baso % (Auto) Lymph # (Auto) [place] # (Auto) Eos # (Auto) Baso # (Auto) Abs Immat Gran (auto) Absolute Neuts (auto) Absolute Nucleated RBC Nucleated RBC % (auto) PT 14.4 H INR 1.2 H APTT PTT (Heparin Protocol) VBG pH 7.44 H VBG pCO2 46 VBG pO2 44 VBG HCO3 30 VBG O2 Saturation 78.1 VBG Base Excess 5.2 Sodium Potassium Chloride Carbon Dioxide Anion Gap BUN Creatinine Estim Creat Clear Calc Estimated GFR Random Glucose Calcium Total Bilirubin AST ALT Alkaline Phosphatase Ammonia Total Protein Albumin 3.5 D 06/10/20 06/10/20 06/10/20 06:58 08:49 08:49 WBC RBC Hgb Hct MCV MCH MCHC RDW Plt Count MPV Immature Gran % (Auto) Neut % (Auto) Lymph % (Auto) [place] % (Auto) Eos % (Auto) Baso % (Auto) Lymph # (Auto) [place] # (Auto) Eos # (Auto) Baso # (Auto) Abs Immat Gran (auto) Absolute Neuts (auto) Absolute Nucleated RBC Nucleated RBC % (auto) PT INR APTT PTT (Heparin Protocol) 106.6 H D VBG pH VBG pCO2 VBG pO2 VBG HCO3 VBG O2 Saturation VBG Base Excess Sodium 143 Potassium 3.7 Chloride 101 Carbon Dioxide 33 H Anion Gap 13 BUN 27 H Creatinine 1.10 Estim Creat Clear Calc 101.6 Estimated GFR > 60 Random Glucose 125 H Calcium 9.0 D Total Bilirubin 1.8 H AST 69 H ALT 22 Alkaline Phosphatase 84 Ammonia 34 Total Protein 6.7 Albumin 3.5 06/10/20 08:49 WBC RBC Hgb Hct MCV MCH MCHC RDW Plt Count MPV Immature Gran % (Auto) Neut % (Auto) Lymph % (Auto) [place] % (Auto) Eos % (Auto) Baso % (Auto) Lymph # (Auto) [place] # (Auto) Eos # (Auto) Baso # (Auto) Abs Immat Gran (auto) Absolute Neuts (auto) Absolute Nucleated RBC Nucleated RBC % (auto) PT INR APTT Cancelled PTT (Heparin Protocol) 69.6 D VBG pH VBG pCO2 VBG pO2 VBG HCO3 VBG O2 Saturation VBG Base Excess Sodium Potassium Chloride Carbon Dioxide Anion Gap BUN Creatinine Estim Creat Clear Calc Estimated GFR Random Glucose Calcium Total Bilirubin AST ALT Alkaline Phosphatase Ammonia Total Protein Albumin Microbiology Microbiology Results: Microbiology 06/09/20 13:11 Stool Stool Culture - Preliminary Normal so far. 06/05/20 03:40 Blood - Venous Blood Culture - Final No growth after 5 days. 06/05/20 03:36 Blood - Venous Blood Culture - Final No growth after 5 days. 06/04/20 11:45 Blood - Venous Blood Culture - Final No growth after 5 days. 06/04/20 11:45 Blood - Venous Blood Culture - Final No growth after 5 days. 06/05/20 03:31 Sputum - Suctioned Gram Stain - Final 06/05/20 03:31 Sputum - Suctioned Sputum Culture - Final 06/04/20 11:35 Urine Catheterized - Powers Catheter Urine Culture - Final No growth. Progress Note: A&P Assessment and plan (1) Diastolic CHF, acute on chronic: Status: Acute (2) Cardiac arrest with successful resuscitation: Status: Acute Assessment and Plan: Assessment: 60-year-old gentleman with underlying morbid obesity, MJ/obesity hyperventilation syndrome alcoholism admitted on 05/29/2020 with alcohol withdrawal with hospital course complicated by cardiopulmonary arrest status post successful resuscitation, intubated during CPR, further complicated by encephalopathy and atrial fibrillation. Plan: Neuro: Encephalopathy, toxic versus metabolic versus critical care related versus anoxic. MRI head with no acute findings. Underlying history of alcohol intoxication/withdrawal. Status post phenobarbital alcohol withdrawal protocol. Cardiac: Acute on chronic right-sided congestive heart failure improving with diuresis. Continue with diuresis. AFib, continue with rate control and anticoagulation. Pulmonary: Acute hypoxic respiratory failure, intubated during the CPR. Continue to titrate off ventilatory support as tolerated. Renal: No acute issues. Endo: No acute issues. GI: No acute issues. ID: No acute issues Heme/Onc: No acute issues. Psych: No acute issues. Miscellaneous: No acute issues. Prophylaxis: Heparin drip, famotidine Diet: Tube feeds Critical care time spent: 60 minutes (3) Obesity hypoventilation syndrome: Status: Acute (4) Encephalopathy: Status: Acute (5) Persistent atrial fibrillation: Status: Acute (6) Sleep apnea: Status: Acute (7) Alcohol dependency: Status: Acute Time Spent With Patient Total time spent with greater than 50% in coordination of care (as documented) at patient's floor/unit and/or counseling patient:: 0 Critical Care Time Critical Care Time (minutes): 60
[2020-06-10] MEDS: Potassium Chloride/H20 20 MEQ/100 ML PIGGYBACK 100 MEQ IV (16:47)
--- NOTE | 2020-06-10 22:57 | PC.NURSE ---
Pt remains sedate and compliant with AC settings on ventilator on propofol. Lasix given with good U/O response. Brother updated on plan of care and status.
[2020-06-11] VITALS (38 sets, daily range): BP systolic 149–264; BP diastolic 73–100; PULSE 83–120; RESP 19–20; TEMP 36.6–37.3; O2SAT 94–100
[2020-06-11] MEDS: Albuterol/Iprat 2.5/0.5MG 3 ML AMPUL.NEB INHALE ×6 (00:11→19:25)
[2020-06-11] MEDS: propofoL 1,000 MG/100 ML VIAL 28.07 MG IVCONT ×6 (03:30→22:32)
[2020-06-11 06:55] LABS: MANUAL DIFF FLAG NO
[2020-06-11 06:59] LABS: Base Excess VBG 7.6 mmol/L; HCO3 VBG 32 mmol/L; Oxygen Saturation VBG 93.8 %; PCO2 VBG 46 mmhg; PO2 VBG 70 mmhg; pH VBG 7.47 (7.32-7.43)
[2020-06-11 07:11] LABS: Basophils Percent Auto 0.4 % (0-2); Eosinophils Absolute Auto 0.2 X10*3/uL (0.0-0.4); Eosinophils Percent Auto 1.9 % (0-4); Hemoglobin 12.8 g/dl (14.0-18.0); Imm Gran Abs Auto 0.06 X10*3/uL (0.00-0.03); Imm Gran Pct Auto 0.7 % (0.0-0.4); Lymphocytes Absolute Auto 1.5 X10*3/uL (1.2-4.9); Lymphocytes Percent Auto 16.5 % (20-40); Mean Corpuscular HGB Conc 32.8 g/dl (31.0-36.0); Mean Corpuscular Hemoglobin 34.8 pg (27.0-33.0); Mean Platelet Volume 11.6 fL (9.4-12.4); Monocytes Absolute Auto 1.2 X10*3/uL (0.1-1.2); Monocytes Percent Auto 12.8 % (2-11); Neutrophils Absolute Auto 6.2 X10*3/uL (2.0-8.3); Neutrophils Percent Auto 67.7 % (45-73); Platelet Count 152 X10*3/uL (160-400); Red Blood Count 3.68 X10*6/uL (4.60-5.80); Red Cell Distribution Width 14.1 % (11.0-16.0); White Blood Count 9.2 X10*3/uL (4.8-10.8)
[2020-06-11 07:13] LABS: PTT Heparin Drip 54.1 SEC (53-77.9)
[2020-06-11 07:33] LABS: Albumin Level 3.2 g/dL (3.5-5.0); Anion Gap 15 (12-20); Blood Urea Nitrogen 22 mg/dL (9-16); Calcium 9.1 mg/dL (8.4-10.2); Carbon Dioxide 31 mmol/L (22-29); Chloride 99 mmol/L (96-108); Creatinine Clr Calc Pharmacy 131.5; Estimated Glomerular Filt Rate > 60; Glucose Random 120 mg/dL (60-115); Magnesium 1.5 mg/dL (1.6-2.6); Phosphorus 3.4 mg/dL (2.7-4.5); Potassium 3.5 mmol/l (3.3-5.1); Sodium 141 mmol/L (135-145)
[2020-06-11] MEDS: 0.9 % Sodium Chloride Flush 3 ML SYRINGE IVFLUSH ×3 (07:44→21:13)
[2020-06-11] MEDS: Chlorhexidine Gluc Oral Rinse 15 ML MOUTHWASH BUCCAL ×3 (07:44→21:12)
[2020-06-11] MEDS: Digoxin 0.5 MG/2 ML AMPUL 0.125 MG IVPUSH (07:44)
[2020-06-11] MEDS: Potassium Chloride Packet 20 MEQ PACKET PO (07:45)
[2020-06-11] MEDS: Spironolactone 25 MG TABLET PO (07:45)
[2020-06-11] MEDS: Furosemide 40 MG/4 ML VIAL IVPUSH ×2 (07:45→21:13)
[2020-06-11] MEDS: Thiamine HCL 100 MG TABLET PO (07:46)
[2020-06-11] MEDS: Potassium Chloride/H20 20 MEQ/100 ML PIGGYBACK 100 MEQ IV (08:59)
[2020-06-11] MEDS: Metoprolol Tartrate 5 MG/5 ML VIAL IVPUSH (09:00)
[2020-06-11] MEDS: Magnesium Sulfate/H2O 2 GM/50 ML PIGGYBACK IV (10:22)
[2020-06-11] MEDS: Albumin Human 25 % 100 ML IV ×3 (10:22→21:12)
--- NOTE | 2020-06-11 10:38 | PM.PNNEP ---
Subjective Subjective Date of Service: 06/11/20 Principal diagnosis: alcohol withdrawal, atrial fibrillation Interval history: Events noted UO improved Physical Exam Vital Signs: Vital Signs: Last Vital Signs Temp 99.1 F 06/11/20 04:00 Pulse 97 06/11/20 10:00 Resp 20 06/11/20 10:00 BP 188/92 H 06/11/20 10:00 Pulse Ox 100 06/11/20 10:00 Body Mass Index 39.4 Const: General: ill appearing Neck: Neck: Yes supple Resp: Auscultation: rhonchi Cardio: Heart sounds: no click, no murmurs and no rubs Skin: Trauma: no lacerations or abrasions Neuro: Motor exam (neuro): No Asterixis during motor activity present Objective Data Labs CBC & Chem 7: 06/11/20 06:30 06/11/20 06:30 Labs: Laboratory Results - last 24 hr 06/10/20 06/11/20 06/11/20 16:28 06:30 06:30 WBC 9.2 RBC 3.68 L Hgb 12.8 L Hct 39.0 L MCV 106.0 H MCH 34.8 H MCHC 32.8 RDW 14.1 Plt Count 152 L MPV 11.6 Immature Gran % (Auto) 0.7 H Neut % (Auto) 67.7 Lymph % (Auto) 16.5 L [place] % (Auto) 12.8 H Eos % (Auto) 1.9 Baso % (Auto) 0.4 Lymph # (Auto) 1.5 [place] # (Auto) 1.2 Eos # (Auto) 0.2 Baso # (Auto) 0.0 Abs Immat Gran (auto) 0.06 H Absolute Neuts (auto) 6.2 Absolute Nucleated RBC 0.000 Nucleated RBC % (auto) 0.0 PTT (Heparin Protocol) 68.0 54.1 D VBG pH VBG pCO2 VBG pO2 VBG HCO3 VBG O2 Saturation VBG Base Excess Sodium Potassium Chloride Carbon Dioxide Anion Gap BUN Creatinine Estim Creat Clear Calc Estimated GFR Random Glucose Calcium Phosphorus Magnesium Albumin 06/11/20 06/11/20 06:30 06:30 WBC RBC Hgb Hct MCV MCH MCHC RDW Plt Count MPV Immature Gran % (Auto) Neut % (Auto) Lymph % (Auto) [place] % (Auto) Eos % (Auto) Baso % (Auto) Lymph # (Auto) [place] # (Auto) Eos # (Auto) Baso # (Auto) Abs Immat Gran (auto) Absolute Neuts (auto) Absolute Nucleated RBC Nucleated RBC % (auto) PTT (Heparin Protocol) VBG pH 7.47 H VBG pCO2 46 VBG pO2 70 VBG HCO3 32 VBG O2 Saturation 93.8 VBG Base Excess 7.6 Sodium 141 Potassium 3.5 Chloride 99 Carbon Dioxide 31 H Anion Gap 15 BUN 22 H Creatinine 0.85 Estim Creat Clear Calc 131.5 Estimated GFR > 60 Random Glucose 120 H Calcium 9.1 Phosphorus 3.4 Magnesium 1.5 L Albumin 3.2 L Microbiology Microbiology Results: Microbiology 06/09/20 13:11 Stool Stool Culture - Preliminary Normal so far. 06/05/20 03:40 Blood - Venous Blood Culture - Final No growth after 5 days. 06/05/20 03:36 Blood - Venous Blood Culture - Final No growth after 5 days. 06/04/20 11:45 Blood - Venous Blood Culture - Final No growth after 5 days. 06/04/20 11:45 Blood - Venous Blood Culture - Final No growth after 5 days. 06/05/20 03:31 Sputum - Suctioned Gram Stain - Final 06/05/20 03:31 Sputum - Suctioned Sputum Culture - Final 06/04/20 11:35 Urine Catheterized - Powers Catheter Urine Culture - Final No growth. Assessment & Plan Assessment and plan (1) Acute kidney failure: Problem details: Due to ATN Renal fx is improving No indication for HD today Watch UO and labs Status: Acute Time Spent With Patient Time: Total time spent is greater than 50% in coordination of care (as documented) at patient's floor/unit and/or counseling patient:
--- NOTE | 2020-06-11 10:57 | MHC.CLN ---
F/U PT RECEIVING NEPRO AT MAX GOAL 40CC/HR WITH 120CC FREE WATER Q 6HRS WILL PROVIDE 1728KCALS (21KCALS/KG; CURRENTLY SEDATION OFF), 78G PROTEIN (.96G/KG), 1736CC TOTAL WATER FROM FORMULA AND FLUSHES (21CC/KG) MONITOR TOLERANCE, RESIDUALS AND LYTES
--- NOTE | 2020-06-11 11:20 | MHC.CM.PN ---
Per MD rounds, essentially little change in pt condition. Remains intubated and vented. Sedation off presently. Not following commands. If not changes, psooible EEG on Tuesday. Will continue to follow for d/c needs
[2020-06-11] MEDS: Heparin Sodium,Porcine/1/2NS 25,000 UNIT/250 ML IV.SOLN 19.8 UNIT IVCONT ×2 (11:32→23:56)
--- NOTE | 2020-06-11 14:48 | P.PNCC_ITS ---
Subjective Subjective Date of Service: 06/11/20 Interval History: 60-year-old gentleman with underlying history of obesity, MJ on CPAP, hypertension, alcohol abuse admitted 05/29/2020 with alcohol withdrawal and treated with phenobarbital alcohol withdrawal protocol with hospital course complicated by cardiopulmonary arrest 03/16/2020, intubated during the CPR, and transferred to intensive care unit. Further hospital course significant for right-sided congestive heart failure improving with diuresis, encephalopathy with poor arousal during sedation vacation, and AFib. No events overnight. Poor arousal with sedation vacation, but improving slowly. Physical Exam Vital Signs: Vital Signs: Last Vital Signs Temp 99.1 F 06/11/20 04:00 Pulse 100 06/11/20 14:00 Resp 20 06/11/20 14:00 BP 174/84 H 06/11/20 14:00 Pulse Ox 96 06/11/20 14:00 Body Mass Index 39.4 Const: General: no acute distress; No alert or awake Nutritional Ap pearance: obese Eyes: Sclerae: sclerae normal EOM: EOMs intact bilaterally Neck: Neck: Yes no lymphadenopathy, Yes trachea midline and Yes supple Resp: Effort & Inspection: normal respiratory effort and no respiratory distress Auscultation: clear to auscultation bilaterally Cardio: Rate: regular rate Rhythm: regular rhythm Heart sounds: no gallops, no murmurs and no rubs GI: Palpation (GI): Soft to palpation and Other GI palpation findings present ( Nontender) Auscultation: normal bowel sounds Extrem: General: No clubbing, No cyanosis and Yes edema (1+ bilateral) Objective Data Labs CBC & Chem 7: 06/11/20 06:30 06/11/20 06:30 Labs: Laboratory Results - last 24 hr 06/10/20 06/11/20 06/11/20 16:28 06:30 06:30 WBC 9.2 RBC 3.68 L Hgb 12.8 L Hct 39.0 L MCV 106.0 H MCH 34.8 H MCHC 32.8 RDW 14.1 Plt Count 152 L MPV 11.6 Immature Gran % (Auto) 0.7 H Neut % (Auto) 67.7 Lymph % (Auto) 16.5 L [place] % (Auto) 12.8 H Eos % (Auto) 1.9 Baso % (Auto) 0.4 Lymph # (Auto) 1.5 [place] # (Auto) 1.2 Eos # (Auto) 0.2 Baso # (Auto) 0.0 Abs Immat Gran (auto) 0.06 H Absolute Neuts (auto) 6.2 Absolute Nucleated RBC 0.000 Nucleated RBC % (auto) 0.0 PTT (Heparin Protocol) 68.0 54.1 D VBG pH VBG pCO2 VBG pO2 VBG HCO3 VBG O2 Saturation VBG Base Excess Sodium Potassium Chloride Carbon Dioxide Anion Gap BUN Creatinine Estim Creat Clear Calc Estimated GFR Random Glucose Calcium Phosphorus Magnesium Albumin 06/11/20 06/11/20 06:30 06:30 WBC RBC Hgb Hct MCV MCH MCHC RDW Plt Count MPV Immature Gran % (Auto) Neut % (Auto) Lymph % (Auto) [place] % (Auto) Eos % (Auto) Baso % (Auto) Lymph # (Auto) [place] # (Auto) Eos # (Auto) Baso # (Auto) Abs Immat Gran (auto) Absolute Neuts (auto) Absolute Nucleated RBC Nucleated RBC % (auto) PTT (Heparin Protocol) VBG pH 7.47 H VBG pCO2 46 VBG pO2 70 VBG HCO3 32 VBG O2 Saturation 93.8 VBG Base Excess 7.6 Sodium 141 Potassium 3.5 Chloride 99 Carbon Dioxide 31 H Anion Gap 15 BUN 22 H Creatinine 0.85 Estim Creat Clear Calc 131.5 Estimated GFR > 60 Random Glucose 120 H Calcium 9.1 Phosphorus 3.4 Magnesium 1.5 L Albumin 3.2 L Microbiology Microbiology Results: Microbiology 06/09/20 13:11 Stool Stool Culture - Preliminary Normal so far. 06/05/20 03:40 Blood - Venous Blood Culture - Final No growth after 5 days. 06/05/20 03:36 Blood - Venous Blood Culture - Final No growth after 5 days. 06/04/20 11:45 Blood - Venous Blood Culture - Final No growth after 5 days. 06/04/20 11:45 Blood - Venous Blood Culture - Final No growth after 5 days. 06/05/20 03:31 Sputum - Suctioned Gram Stain - Final 06/05/20 03:31 Sputum - Suctioned Sputum Culture - Final 06/04/20 11:35 Urine Catheterized - Powers Catheter Urine Culture - Final No growth. Progress Note: A&P Assessment and plan (1) Diastolic CHF, acute on chronic: Status: Acute Assessment and Plan: Assessment: 60-year-old gentleman with underlying morbid obesity, MJ/obesity hyperventilation syndrome alcoholism admitted on 05/29/2020 with alcohol wit [facility] with hospital course complicated by cardiopulmonary arrest status post successful resuscitation, intubated during CPR, further complicated by encephalopathy and atrial fibrillation. Plan: Neuro: Encephalopathy, toxic versus metabolic versus critical care related versus anoxic, slowly improving. MRI head with no acute findings. Underlying history of alcohol intoxication/withdrawal. Status post phenobarbital alcohol withdrawal protocol. Continue with daily sedation vacation. Cardiac: Acute on chronic right-sided congestive heart failure improving with diuresis. Continue with diuresis. AFib, continue with rate control and anticoagulation. Pulmonary: Acute hypoxic respiratory failure, intubated during the CPR. Continue to titrate off ventilatory support as tolerated. Renal: No acute issues. Endo: No acute issues. GI: No acute issues. ID: No acute issues Heme/Onc: No acute issues. Psych: No acute issues. Miscellaneous: No acute issues. Prophylaxis: Heparin drip, famotidine Diet: Tube feeds Critical care time spent: 60 minutes (2) CHF (congestive heart failure): Status: Acute (3) Cardiac arrest with successful resuscitation: Status: Acute (4) Acute and chronic respiratory failure with hypoxia: Status: Acute Time Spent With Patient Total time spent with greater than 50% in coordination of care (as documented) at patient's floor/unit and/or counseling patient:: 0 Critical Care Time Critical Care Time (minutes): 60
--- NOTE | 2020-06-11 18:29 | PC.NURSE ---
Patient remains intubated and sedated on ventilator. Sedation vacation performed for approximately 3 hours. Tolerated fairly well. Neuro status intact. Followed commands. Remains hypertensive. PRN metoprolol given and lisinopril added to daily regimen. Afebrile. Will continue to monitor.
[2020-06-12] VITALS (40 sets, daily range): BP systolic 133–174; BP diastolic 59–86; PULSE 88–127; RESP 16–26; TEMP 32.4–38.1; O2SAT 20–98
[2020-06-12] MEDS: Albuterol/Iprat 2.5/0.5MG 3 ML AMPUL.NEB INHALE ×6 (00:05→20:49)
[2020-06-12] MEDS: propofoL 1,000 MG/100 ML VIAL 28.07 MG IVCONT (01:50)
[2020-06-12] MEDS: propofoL 1,000 MG/100 ML VIAL 37.42 MG IVCONT ×3 (04:12→08:19)
[2020-06-12] MEDS: Albumin Human 25 % 100 ML IV (04:14)
[2020-06-12] MEDS: Metoprolol Tartrate 5 MG/5 ML VIAL IVPUSH (04:18)
[2020-06-12 05:49] LABS: MANUAL DIFF FLAG NO
[2020-06-12 05:54] LABS: Basophils Percent Auto 0.3 % (0-2); Eosinophils Absolute Auto 0.2 X10*3/uL (0.0-0.4); Eosinophils Percent Auto 1.4 % (0-4); Hemoglobin 11.6 g/dl (14.0-18.0); Imm Gran Abs Auto 0.09 X10*3/uL (0.00-0.03); Imm Gran Pct Auto 0.8 % (0.0-0.4); Lymphocytes Absolute Auto 1.6 X10*3/uL (1.2-4.9); Lymphocytes Percent Auto 13.4 % (20-40); Mean Corpuscular HGB Conc 32.2 g/dl (31.0-36.0); Mean Corpuscular Hemoglobin 33.7 pg (27.0-33.0); Mean Corpuscular Volume 104.7 fL (80-98); Mean Platelet Volume 12.2 fL (9.4-12.4); Monocytes Absolute Auto 1.5 X10*3/uL (0.1-1.2); Monocytes Percent Auto 12.3 % (2-11); Neutrophils Absolute Auto 8.4 X10*3/uL (2.0-8.3); Neutrophils Percent Auto 71.8 % (45-73); Platelet Count 167 X10*3/uL (160-400); Red Blood Count 3.44 X10*6/uL (4.60-5.80); Red Cell Distribution Width 14.1 % (11.0-16.0); White Blood Count 11.8 X10*3/uL (4.8-10.8)
[2020-06-12 06:10] LABS: Base Excess VBG 10.4 mmol/L; HCO3 VBG 34 mmol/L; Oxygen Saturation VBG 92.6 %; PCO2 VBG 40 mmhg; PO2 VBG 62 mmhg; pH VBG 7.54 (7.32-7.43)
[2020-06-12 06:14] LABS: PTT Heparin Drip 50.4 SEC (53-77.9)
[2020-06-12 06:23] LABS: Albumin Level 3.8 g/dL (3.5-5.0); Anion Gap 15 (12-20); Blood Urea Nitrogen 19 mg/dL (9-16); Calcium 9.7 mg/dL (8.4-10.2); Carbon Dioxide 35 mmol/L (22-29); Chloride 95 mmol/L (96-108); Creatinine Clr Calc Pharmacy 116.4; Estimated Glomerular Filt Rate > 60; Glucose Random 130 mg/dL (60-115); Magnesium 1.6 mg/dL (1.6-2.6); Phosphorus 3.5 mg/dL (2.7-4.5); Potassium 3.4 mmol/l (3.3-5.1); Sodium 142 mmol/L (135-145)
--- NOTE | 2020-06-12 06:25 | PC.NURSE ---
Tmax 100.5. Afib 80's-120's. PRN lopressor x1 with good effect. SBP 150's-170's. MD aware. Attempted to wean propofol, patient became agitated and asynchronous with vent. +cough/gag/PERRL. Overbreathes vent at times, RR 20-26. Thick creamy inline secretions. Rectal tube patent, draining brown liquid stool. UOP 50-100 cc/hr. Tolerating TF with no residuals. Open area to coccyx with surrounding maceration. Barrier cream applied. Repo q2. airloss bed/prevalon system.
[2020-06-12] MEDS: Digoxin 0.5 MG/2 ML AMPUL 0.125 MG IVPUSH (08:14)
[2020-06-12] MEDS: Furosemide 40 MG/4 ML VIAL IVPUSH (08:15)
[2020-06-12] MEDS: Heparin Sodium,Porcine 5,000 UNIT/ML VIAL 5280 UNIT IVPUSH (08:15)
[2020-06-12] MEDS: lisinopriL 20 MG TABLET PO ×2 (08:15→15:37)
[2020-06-12] MEDS: Chlorhexidine Gluc Oral Rinse 15 ML MOUTHWASH BUCCAL ×3 (08:15→23:04)
[2020-06-12] MEDS: Thiamine HCL 100 MG TABLET PO (08:16)
[2020-06-12] MEDS: Potassium Chloride Packet 20 MEQ PACKET PO (08:16)
[2020-06-12] MEDS: Spironolactone 25 MG TABLET PO (08:16)
[2020-06-12] MEDS: 0.9 % Sodium Chloride Flush 3 ML SYRINGE IVFLUSH ×3 (09:01→23:05)
[2020-06-12] MEDS: Magnesium Sulfate/H2O 2 GM/50 ML PIGGYBACK IV (09:02)
--- NOTE | 2020-06-12 10:12 | MHC.CM.PN ---
Per MD rounds, new onset a-fib, on heparin. Showing slight improvement with sedation vacation yesterday. Remains intubated and vented. No plans to extubate. Will try sedation vacation today. D/C plans depend on pt recovery. May need SNF. No referrals yet pending pt progress. Pt has been hospitalized fro 13 days, with S/P code with ROSC 1 week ago. Will continue to monitor for d/c needs.
[2020-06-12] MEDS: Heparin Sodium,Porcine/1/2NS 25,000 UNIT/250 ML IV.SOLN 22.44 UNIT IVCONT (12:43)
[2020-06-12] MEDS: propofoL 1,000 MG/100 ML VIAL 18.71 MG IVCONT ×3 (12:45→23:04)
[2020-06-12 14:14] LABS: PTT Heparin Drip 88.5 SEC (53-77.9)
--- NOTE | 2020-06-12 15:13 | P.PNCC_ITS ---
Subjective Subjective Date of Service: 06/12/20 Interval History: 60-year-old gentleman with underlying history of obesity, MJ on CPAP, hypertension, alcohol abuse admitted 05/29/2020 with alcohol withdrawal and treated with phenobarbital alcohol withdrawal protocol with hospital course complicated by cardiopulmonary arrest 03/16/2020, intubated during the CPR, and transferred to intensive care unit. Further hospital course significant for right-sided congestive heart failure improving with diuresis, encephalopathy with poor arousal during sedation vacation, and AFib. No events overnight. Poor arousal with sedation vacation, but improving slowly. Physical Exam Vital Signs: Vital Signs: Last Vital Signs Temp 90.3 F L 06/12/20 12:00 Pulse 113 H 06/12/20 14:00 Resp 22 H 06/12/20 14:00 BP 174/85 H 06/12/20 14:00 Pulse Ox 98 06/12/20 14:00 Body Mass Index 39.4 Const: General: no acute distress; No alert or awake Nutritional Ap pearance: obese Eyes: Sclerae: sclerae normal EOM: EOMs intact bilaterally Neck: Neck: Yes no lymphadenopathy, Yes trachea midline and Yes supple Resp: Auscultation: clear to auscultation bilaterally Cardio: Rate: tachycardic Rhythm: abnormal rhythm irregularly irregular Heart sounds: no gallops, no murmurs and no rubs GI: Palpation (GI): Soft to palpation and Other GI palpation findings present ( Nontender) Auscultation: normal bowel sounds Extrem: General: No clubbing, No cyanosis and Yes edema (1+ bilateral) Objective Data Labs CBC & Chem 7: 06/12/20 05:35 06/12/20 05:35 Labs: Laboratory Results - last 24 hr 06/12/20 06/12/20 06/12/20 05:35 05:35 05:35 WBC 11.8 H RBC 3.44 L Hgb 11.6 L Hct 36.0 L MCV 104.7 H MCH 33.7 H MCHC 32.2 RDW 14.1 Plt Count 167 MPV 12.2 Immature Gran % (Auto) 0.8 H Neut % (Auto) 71.8 Lymph % (Auto) 13.4 L [place] % (Auto) 12.3 H Eos % (Auto) 1.4 Baso % (Auto) 0.3 Lymph # (Auto) 1.6 [place] # (Auto) 1.5 H Eos # (Auto) 0.2 Baso # (Auto) 0.0 Abs Immat Gran (auto) 0.09 H Absolute Neuts (auto) 8.4 H Absolute Nucleated RBC 0.000 Nucleated RBC % (auto) 0.0 PTT (Heparin Protocol) VBG pH 7.54 H VBG pCO2 40 VBG pO2 62 VBG HCO3 34 VBG O2 Saturation 92.6 VBG Base Excess 10.4 Sodium 142 Potassium 3.4 Chloride 95 L Carbon Dioxide 35 H Anion Gap 15 BUN 19 H Creatinine 0.96 Estim Creat Clear Calc 116.4 Estimated GFR > 60 Random Glucose 130 H Calcium 9.7 D Phosphorus 3.5 Magnesium 1.6 Albumin 3.8 06/12/20 06/12/20 05:35 13:57 WBC RBC Hgb Hct MCV MCH MCHC RDW Plt Count MPV Immature Gran % (Auto) Neut % (Auto) Lymph % (Auto) [place] % (Auto) Eos % (Auto) Baso % (Auto) Lymph # (Auto) [place] # (Auto) Eos # (Auto) Baso # (Auto) Abs Immat Gran (auto) Absolute Neuts (auto) Absolute Nucleated RBC Nucleated RBC % (auto) PTT (Heparin Protocol) 50.4 L 88.5 H D VBG pH VBG pCO2 VBG pO2 VBG HCO3 VBG O2 Saturation VBG Base Excess Sodium Potassium Chloride Carbon Dioxide Anion Gap BUN Creatinine Estim Creat Clear Calc Estimated GFR Random Glucose Calcium Phosphorus Magnesium Albumin Microbiology Microbiology Results: Microbiology 06/09/20 13:11 Stool Stool Culture - Final 06/05/20 03:40 Blood - Venous Blood Culture - Final No growth after 5 days. 06/05/20 03:36 Blood - Venous Blood Culture - Final No growth after 5 days. 06/04/20 11:45 Blood - Venous Blood Culture - Final No growth after 5 days. 06/04/20 11:45 Blood - Venous Blood Culture - Final No growth after 5 days. 06/05/20 03:31 Sputum - Suctioned Gram Stain - Final 06/05/20 03:31 Sputum - Suctioned Sputum Culture - Final 06/04/20 11:35 Urine Catheterized - Powers Catheter Urine Culture - Final No growth. Progress Note: A&P Assessment and plan (1) Acute and chronic respiratory failure with hypoxia: Status: Acute Assessment and Plan: Assessment: 60-year-old gentleman with underlying morbid obesity, MJ/obesity hyperventilation syndrome alcoholism admitted on 05/29/2020 with alcohol wit [facility] with hospital course complicated by cardiopulmonary arrest status post successful resuscitation, intubated during CPR, further complicated by encephalopathy and atrial fibrillation. Plan: Neuro: Encephalopathy, toxic versus metabolic versus critical care related versus anoxic, slowly improving. MRI head with no acute findings. Underlying history of alcohol intoxication/withdrawal. Status post phenobarbital alcohol withdrawal protocol. Continue with daily sedation vacation. Cardiac: Acute on chronic right-sided congestive heart failure improving with diuresis. Continue with diuresis. AFib, continue with rate control and anticoagulation. Pulmonary: Acute hypoxic respiratory failure, intubated during the CPR. Continue to titrate off ventilatory support as tolerated. Renal: No acute issues. Endo: No acute issues. GI: No acute issues. ID: No acute issues Heme/Onc: No acute issues. Psych: No acute issues. Miscellaneous: No acute issues. Prophylaxis: Heparin drip, famotidine Diet: Tube feeds Critical care time spent: 60 minutes (2) Diastolic CHF, acute on chronic: Status: Acute (3) Cardiac arrest with successful resuscitation: Status: Acute (4) Encephalopathy: Status: Acute Time Spent With Patient Total time spent with greater than 50% in coordination of care (as documented) a t patient's floor/unit and/or counseling patient:: 0 Critical Care Time Critical Care Time (minutes): 60
--- NOTE | 2020-06-12 15:53 | PM.PNNEP ---
Subjective Subjective Date of Service: 06/13/20 Principal diagnosis: alcohol withdrawal, atrial fibrillation Physical Exam Vital Signs: Vital Signs: Last Vital Signs Temp 90.3 F L 06/12/20 12:00 Pulse 96 06/12/20 15:37 Resp 22 H 06/12/20 15:00 BP 169/85 H 06/12/20 15:37 Pulse Ox 97 06/12/20 15:00 Body Mass Index 39.4 Const: General: ill appearing Neck: Neck: Yes supple Resp: Auscultation: rhonchi Cardio: Heart sounds: no click, no murmurs and no rubs Skin: Trauma: no lacerations or abrasions Neuro: Motor exam (neuro): No Asterixis during motor activity present Objective Data Labs CBC & Chem 7: 06/13/20 05:30 06/13/20 05:30 Labs: Laboratory Results - last 24 hr 06/12/20 06/12/20 06/12/20 05:35 05:35 05:35 WBC 11.8 H RBC 3.44 L Hgb 11.6 L Hct 36.0 L MCV 104.7 H MCH 33.7 H MCHC 32.2 RDW 14.1 Plt Count 167 MPV 12.2 Immature Gran % (Auto) 0.8 H Neut % (Auto) 71.8 Lymph % (Auto) 13.4 L [place] % (Auto) 12.3 H Eos % (Auto) 1.4 Baso % (Auto) 0.3 Lymph # (Auto) 1.6 [place] # (Auto) 1.5 H Eos # (Auto) 0.2 Baso # (Auto) 0.0 Abs Immat Gran (auto) 0.09 H Absolute Neuts (auto) 8.4 H Absolute Nucleated RBC 0.000 Nucleated RBC % (auto) 0.0 PTT (Heparin Protocol) VBG pH 7.54 H VBG pCO2 40 VBG pO2 62 VBG HCO3 34 VBG O2 Saturation 92.6 VBG Base Excess 10.4 Sodium 142 Potassium 3.4 Chloride 95 L Carbon Dioxide 35 H Anion Gap 15 BUN 19 H Creatinine 0.96 Estim Creat Clear Calc 116.4 Estimated GFR > 60 Random Glucose 130 H Calcium 9.7 D Phosphorus 3.5 Magnesium 1.6 Albumin 3.8 06/12/20 06/12/20 05:35 13:57 WBC RBC Hgb Hct MCV MCH MCHC RDW Plt Count MPV Immature Gran % (Auto) Neut % (Auto) Lymph % (Auto) [place] % (Auto) Eos % (Auto) Baso % (Auto) Lymph # (Auto) [place] # (Auto) Eos # (Auto) Baso # (Auto) Abs Immat Gran (auto) Absolute Neuts (auto) Absolute Nucleated RBC Nucleated RBC % (auto) PTT (Heparin Protocol) 50.4 L 88.5 H D VBG pH VBG pCO2 VBG pO2 VBG HCO3 VBG O2 Saturation VBG Base Excess Sodium Potassium Chloride Carbon Dioxide Anion Gap BUN Creatinine Estim Creat Clear Calc Estimated GFR Random Glucose Calcium Phosphorus Magnesium Albumin Microbiology Microbiology Results: Microbiology 06/09/20 13:11 Stool Stool Culture - Final 06/05/20 03:40 Blood - Venous Blood Culture - Final No growth after 5 days. 06/05/20 03:36 Blood - Venous Blood Culture - Final No growth after 5 days. 06/04/20 11:45 Blood - Venous Blood Culture - Final No growth after 5 days. 06/04/20 11:45 Blood - Venous Blood Culture - Final No growth after 5 days. 06/05/20 03:31 Sputum - Suctioned Gram Stain - Final 06/05/20 03:31 Sputum - Suctioned Sputum Culture - Final 06/04/20 11:35 Urine Catheterized - Powers Catheter Urine Culture - Final No growth. Assessment & Plan Assessment and plan (1) Acute kidney failure: Problem details: Due to ATN Renal fx is improving No indication for HD today Watch UO and labs Status: Acute Time Spent With Patient Time: Total time spent is greater than 50% in coordination of care (as documented) at patient's floor/unit and/or counseling patient:
--- NOTE | 2020-06-12 20:02 | PC.NURSE ---
assumed care at 0700. sedation vacation from 13:00 to 1700 today. patient tracks, +cough/+gag; does not follow commands nor respond to questions. ac settings maintained during sedation vacation per md. tolerated well, some coughing. thick creamy yellow/white secretions from back of throat. patient with bloody inline secretions, moderate amount, continues on heparin gtt; md aware.
[2020-06-12 21:54] LABS: PTT Heparin Drip 62.1 SEC (53-77.9)
[2020-06-13] VITALS (41 sets, daily range): BP systolic 119–187; BP diastolic 42–104; PULSE 87–116; RESP 20–35; TEMP 37.3–39; O2SAT 89–98
[2020-06-13] MEDS: Heparin Sodium,Porcine/1/2NS 25,000 UNIT/250 ML IV.SOLN 19.8 UNIT IVCONT ×2 (01:02→11:57)
[2020-06-13] MEDS: Albuterol/Iprat 2.5/0.5MG 3 ML AMPUL.NEB INHALE ×6 (01:12→20:29)
[2020-06-13] MEDS: propofoL 1,000 MG/100 ML VIAL 18.71 MG IVCONT ×4 (03:28→21:40)
[2020-06-13 03:56] LABS: PTT Heparin Drip 59.8 SEC (53-77.9)
[2020-06-13 05:51] LABS: Basophils Absolute Auto 0.1 X10*3/uL (0.0-0.2); Basophils Percent Auto 0.4 % (0-2); Eosinophils Absolute Auto 0.2 X10*3/uL (0.0-0.4); Eosinophils Percent Auto 1.8 % (0-4); Hematocrit 37.6 % (42-52); Hemoglobin 11.9 g/dl (14.0-18.0); Imm Gran Abs Auto 0.08 X10*3/uL (0.00-0.03); Imm Gran Pct Auto 0.6 % (0.0-0.4); Lymphocytes Absolute Auto 1.6 X10*3/uL (1.2-4.9); Lymphocytes Percent Auto 12.3 % (20-40); Mean Corpuscular HGB Conc 31.6 g/dl (31.0-36.0); Mean Corpuscular Volume 107.4 fL (80-98); Mean Platelet Volume 12.5 fL (9.4-12.4); Monocytes Absolute Auto 1.5 X10*3/uL (0.1-1.2); Monocytes Percent Auto 10.8 % (2-11); Neutrophils Absolute Auto 9.9 X10*3/uL (2.0-8.3); Neutrophils Percent Auto 74.1 % (45-73); Platelet Count 200 X10*3/uL (160-400); Red Cell Distribution Width 14.4 % (11.0-16.0); White Blood Count 13.4 X10*3/uL (4.8-10.8)
[2020-06-13 05:52] LABS: MANUAL DIFF FLAG NO
[2020-06-13 05:55] LABS: HCO3 VBG 38 mmol/L; Oxygen Saturation VBG 78.4 %; PCO2 VBG 59 mmhg; PO2 VBG 45 mmhg; pH VBG 7.42 (7.32-7.43)
--- NOTE | 2020-06-13 06:21 | PC.NURSE ---
PT ON AC VENT SETTINGS OVERNIGHT. NO RESP DIFFICULTIES. O2 SAT 92-95%. SUCTIONING SM-MOD AMOUNTS THICK MONTANEZ AND AT TIMES BLOOD TINGED SPUTUM FROM ETT. LARGE AMOUNTS OF CLEAR SPUTUM ORALLY. GOOD SEDATION EFFECT ON PROPOFOL. PT OPENS EYES BUT NO TRACKING OR FOLLOWING. DOES NOT FOLLOW COMMANDS. PROPOFOL AT 20 MCG/KG/MIN. BP STABLE. MONITOR SR-ST, 90-110, RARE PVC NOTED. AFEBRILE. TOLERATING TUBE FEEDS ORDERED. U/O GOOD. RECTAL TUBE IN PLACE WITH LIQUID BROWN STOOL. HEPARIN DRIP INFUSING PER PROTOCOL. PTT WITHIN THERAPEUTIC RANGE X2. NEXT DUE IN AM 06/14.
[2020-06-13 06:23] LABS: Alanine Aminotransferase 29 U/L (0-40); Albumin Level 3.4 g/dL (3.5-5.0); Alkaline Phosphatase 95 U/L (39-117); Anion Gap 16 (12-20); Aspartate Amino Transferase 64 U/L (5-37); Bilirubin Total 1.9 mg/dL (0.0-1.0); Blood Urea Nitrogen 19 mg/dL (9-16); Calcium 9.7 mg/dL (8.4-10.2); Carbon Dioxide 37 mmol/L (22-29); Chloride 94 mmol/L (96-108); Creatinine Clr Calc Pharmacy 120.1; Estimated Glomerular Filt Rate > 60; Glucose Random 126 mg/dL (60-115); Magnesium 1.9 mg/dL (1.6-2.6); Phosphorus 4.9 mg/dL (2.7-4.5); Potassium 3.6 mmol/l (3.3-5.1); Sodium 143 mmol/L (135-145); Total Protein 6.7 g/dL (6.5-8.0)
[2020-06-13 06:28] LABS: Vitamin B1 >1200 nmol/L (8-30)
[2020-06-13] MEDS: lisinopriL 40 MG TABLET PO (08:31)
[2020-06-13] MEDS: Spironolactone 25 MG TABLET PO (08:32)
[2020-06-13] MEDS: Thiamine HCL 100 MG TABLET PO (08:32)
[2020-06-13] MEDS: Potassium Chloride Packet 20 MEQ PACKET PO (08:33)
[2020-06-13] MEDS: Furosemide 40 MG/4 ML VIAL IVPUSH (08:39)
[2020-06-13] MEDS: Digoxin 0.5 MG/2 ML AMPUL 0.125 MG IVPUSH (08:40)
[2020-06-13] MEDS: 0.9 % Sodium Chloride Flush 3 ML SYRINGE IVFLUSH ×2 (08:43→15:34)
[2020-06-13] MEDS: Chlorhexidine Gluc Oral Rinse 15 ML MOUTHWASH BUCCAL ×3 (08:43→21:39)
--- NOTE | 2020-06-13 09:58 | P.PNNP_ITS ---
Subjective Subjective Date of Service: 06/13/20 <Matthew Morrissey MD - Last Filed: 06/13/20 09:59> 06/14/20 <Nigel Cox MD - Last Filed: 06/14/20 19:46> Principal diagnosis: alcohol withdrawal, atrial fibrillation <Matthew Morrissey MD - Last Filed: 06/13/20 09:59> Interval history: Events noted <Matthew Morrissey MD - Last Filed: 06/13/20 09:59> Physical Exam Vital Signs: Vital Signs: Last Vital Signs Temp 99.9 F 06/13/20 08:00 Pulse 116 H 06/13/20 09:00 Resp 31 H 06/13/20 09:00 BP 187/91 H 06/13/20 09:00 Pulse Ox 94 06/13/20 09:00 Body Mass Index 39.4 <Matthew Morrissey MD - Last Filed: 06/13/20 09:59> Const: General: ill appearing <Matthew Morrissey MD - Last Filed: 06/13/20 09:59> Neck: Neck: Yes supple <Matthew Morrissey MD - Last Filed: 06/13/20 09:59> Resp: Auscultation: rhonchi <Matthew Morrissey MD - Last Filed: 06/13/20 09:59> Cardio: Heart sounds: no click, no murmurs and no rubs <Matthew Morrissey MD - Last Filed: 06/13/20 09:59> Skin: Trauma: no lacerations or abrasions <Matthew Morrissey MD - Last Filed: 06/13/20 09:59> Neuro: Motor exam (neuro): No Asterixis during motor activity present <Matthew Morrissey MD - Last Filed: 06/13/20 09:59> Objective Data Labs CBC & Chem 7: : 06/14/20 05:09 06/14/20 05:09 <Matthew Morrissey MD - Last Filed: 06/13/20 09:59> Labs: Laboratory Results - last 24 hr 06/05/20 06/12/20 06/12/20 04:53 13:57 21:25 WBC RBC Hgb Hct MCV MCH MCHC RDW Plt Count MPV Immature Gran % (Auto) Neut % (Auto) Lymph % (Auto) [place] % (Auto) Eos % (Auto) Baso % (Auto) Lymph # (Auto) [place] # (Auto) Eos # (Auto) Baso # (Auto) Abs Immat Gran (auto) Absolute Neuts (auto) Absolute Nucleated RBC Nucleated RBC % (auto) PTT (Heparin Protocol) 88.5 H D 62.1 D VBG pH VBG pCO2 VBG pO2 VBG HCO3 VBG O2 Saturation VBG Base Excess Sodium Potassium Chloride Carbon Dioxide Anion Gap BUN Creatinine Estim Creat Clear Calc Estimated GFR Random Glucose Calcium Phosphorus Magnesium Total Bilirubin AST ALT Alkaline Phosphatase Total Protein Albumin Vitamin B1 >1200 H 06/13/20 06/13/20 06/13/20 03:37 05:30 05:30 WBC 13.4 H RBC 3.50 L Hgb 11.9 L Hct 37.6 L MCV 107.4 H MCH 34.0 H MCHC 31.6 RDW 14.4 Plt Count 200 MPV 12.5 H Immature Gran % (Auto) 0.6 H Neut % (Auto) 74.1 H Lymph % (Auto) 12.3 L [place] % (Auto) 10.8 Eos % (Auto) 1.8 Baso % (Auto) 0.4 Lymph # (Auto) 1.6 [place] # (Auto) 1.5 H Eos # (Auto) 0.2 Baso # (Auto) 0.1 Abs Immat Gran (auto) 0.08 H Absolute Neuts (auto) 9.9 H Absolute Nucleated RBC 0.000 Nucleated RBC % (auto) 0.0 PTT (Heparin Protocol) 59.8 VBG pH VBG pCO2 VBG pO2 VBG HCO3 VBG O2 Saturation VBG Base Excess Sodium 143 Potassium 3.6 Chloride 94 L Carbon Dioxide 37 H Anion Gap 16 BUN 19 H Creatinine 0.93 Estim Creat Clear Calc 120.1 Estimated GFR > 60 Random Glucose 126 H Calcium 9.7 Phosphorus 4.9 H Magnesium 1.9 Total Bilirubin 1.9 H AST 64 H ALT 29 Alkaline Phosphatase 95 Total Protein 6.7 Albumin 3.4 L Vitamin B1 06/13/20 05:30 WBC RBC Hgb Hct MCV MCH MCHC RDW Plt Count MPV Immature Gran % (Auto) Neut % (Auto) Lymph % (Auto) [place] % (Auto) Eos % (Auto) Baso % (Auto) Lymph # (Auto) [place] # (Auto) Eos # (Auto) Baso # (Auto) Abs Immat Gran (auto) Absolute Neuts (auto) Absolute Nucleated RBC Nucleated RBC % (auto) PTT (Heparin Protocol) VBG pH 7.42 VBG pCO2 59 VBG pO2 45 VBG HCO3 38 VBG O2 Saturation 78.4 VBG Base Excess 11.0 Sodium Potassium Chloride Carbon Dioxide Anion Gap BUN Creatinine Estim Creat Clear Calc Estimated GFR Random Glucose Calcium Phosphorus Magnesium Total Bilirubin AST ALT Alkaline Phosphatase Total Protein Albumin Vitamin B1 <Matthew Morrissey MD - Last Filed: 06/13/20 09:59> Microbiology Microbiology Results: Microbiology 06/09/20 13:11 Stool Stool Culture - Final 06/05/20 03:40 Blood - Venous Blood Culture - Final No growth after 5 days. 06/05/20 03:36 Blood - Venous Blood Culture - Final No growth after 5 days. 06/04/20 11:45 Blood - Venous Blood Culture - Final No growth after 5 days. 06/04/20 11:45 Blood - Venous Blood Culture - Final No growth after 5 days. 06/05/20 03:31 Sputum - Suctioned Gram Stain - Final 06/05/20 03:31 Sputum - Suctioned Sputum Culture - Final 06/04/20 11:35 Urine Catheterized - Powers Catheter Urine Culture - Final No growth. <Matthew Morrissey MD - Last Filed: 06/13/20 09:59> Assessment & Plan Assessment and plan (1) Acute kidney failure: Problem details: Due to ATN Renal fx is improving No indication for HD today Watch UO and labs <Matthew Morrissey MD - Last Filed: 06/13/20 09:59> Status: Acute <Matthew Morrissey MD - Last Filed: 06/13/20 09:59> Time Spent With Patient Time: Total time spent is greater than 50% in coordination of care (as documented) at patient's floor/unit and/or counseling patient: <Matthew Morrissey MD - Last Filed: 06/13/20 09:59>
--- NOTE | 2020-06-13 10:15 | MHC.CLN ---
F/U RENAL ISSUES RESOLVED RECOMMEND CHANGING TF FORMULA TO PROMOTE AT MAX GOAL 55CC/HR WITH 120CC FREE WATER Q 4HRS WILL PROVIDE 1320KCALS (CURRENTLY SEDATION OFF), 82G PROTEIN (1.0G/KG), 1976CC TOTAL WATER FROM FORMULA AND FLUSHES (24CC/KG BASED ON IBW) MONITOR TOLERANCE, RESIDUALS AND LYTES
[2020-06-13] MEDS: Metoprolol Tartrate 25 MG TABLET PO ×3 (10:16→21:39)
--- NOTE | 2020-06-13 13:41 | PC.NURSE ---
Pt eyes open and sedation vacation completed from 0815 to 1155. Pt HR increased and coughing over vent this shift. metoprolol added to daily meds per Dr Rodriguez. Pt diureses with lasix good effect. see I&O. Lung sounds inproved after lasix. Heparin remains at 15 Pt vent is AC20 450 30/6. while on sedation vacation trial pt was placed on PC at 0855. Pt temp and HR increased while off sedation. pt became diaphoretic as well. tube fee was changed to promote and started at 20/hr pt remains with mild JVD and distal extremity edema. decreased pedal pulses as well.
--- NOTE | 2020-06-13 15:16 | PM.CCPN ---
Subjective Subjective Date of Service: 06/13/20 Interval History: 60-year-old gentleman with underlying history of obesity, MJ on CPAP, hypertension, alcohol abuse admitted 05/29/2020 with alcohol withdrawal and treated with phenobarbital alcohol withdrawal protocol with hospital course complicated by cardiopulmonary arrest 03/16/2020, intubated during the CPR, and transferred to intensive care unit. Further hospital course significant for right-sided congestive heart failure improving with diuresis, encephalopathy with poor arousal during sedation vacation, and AFib. No events overnight. No changes in mental status. Physical Exam Vital Signs: Vital Signs: Last Vital Signs Temp 100.7 F H 06/13/20 15:00 Pulse 100 06/13/20 15:00 Resp 23 H 06/13/20 15:00 BP 140/90 H 06/13/20 15:00 Pulse Ox 92 06/13/20 15:00 Body Mass Index 39.4 Const: General: no acute distress; No alert or awake Nutritional Appearance: obese Eyes: Sclerae: sclerae normal EOM: EOMs intact bilaterally Neck: Neck: Yes no lymphadenopathy, Yes trachea midline and Yes supple Resp: Auscultation: clear to auscultation bilaterally Cardio: Rate: regular rate Rhythm: abnormal rhythm irregularly irregular Heart sounds: no gallops, no murmurs and no rubs GI: Palpation (GI): Soft to palpation and Other GI palpation findings present ( Nontender) Auscultation: normal bowel sounds Extrem: General: No clubbing, No cyanosis and Yes edema (1+ bilateral) Objective Data Labs CBC & Chem 7: 06/13/20 05:30 06/13/20 05:30 Labs: Laboratory Results - last 24 hr 06/05/20 06/12/20 06/13/20 04:53 21:25 03:37 WBC RBC Hgb Hct MCV MCH MCHC RDW Plt Count MPV Immature Gran % (Auto) Neut % (Auto) Lymph % (Auto) [place] % (Auto) Eos % (Auto) Baso % (Auto) Lymph # (Auto) [place] # (Auto) Eos # (Auto) Baso # (Auto) Abs Immat Gran (auto) Absolute Neuts (auto) Absolute Nucleated RBC Nucleated RBC % (auto) PTT (Heparin Protocol) 62.1 D 59.8 VBG pH VBG pCO2 VBG pO2 VBG HCO3 VBG O2 Saturation VBG Base Excess Sodium Potassium Chloride Carbon Dioxide Anion Gap BUN Creatinine Estim Creat Clear Calc Estimated GFR Random Glucose Calcium Phosphorus Magnesium Total Bilirubin AST ALT Alkaline Phosphatase Total Protein Albumin Vitamin B1 >1200 H 06/13/20 06/13/20 06/13/20 05:30 05:30 05:30 WBC 13.4 H RBC 3.50 L Hgb 11.9 L Hct 37.6 L MCV 107.4 H MCH 34.0 H MCHC 31.6 RDW 14.4 Plt Count 200 MPV 12.5 H Immature Gran % (Auto) 0.6 H Neut % (Auto) 74.1 H Lymph % (Auto) 12.3 L [place] % (Auto) 10.8 Eos % (Auto) 1.8 Baso % (Auto) 0.4 Lymph # (Auto) 1.6 [place] # (Auto) 1.5 H Eos # (Auto) 0.2 Baso # (Auto) 0.1 Abs Immat Gran (auto) 0.08 H Absolute Neuts (auto) 9.9 H Absolute Nucleated RBC 0.000 Nucleated RBC % (auto) 0.0 PTT (Heparin Protocol) VBG pH 7.42 VBG pCO2 59 VBG pO2 45 VBG HCO3 38 VBG O2 Saturation 78.4 VBG Base Excess 11.0 Sodium 143 Potassium 3.6 Chloride 94 L Carbon Dioxide 37 H Anion Gap 16 BUN 19 H Creatinine 0.93 Estim Creat Clear Calc 120.1 Estimated GFR > 60 Random Glucose 126 H Calcium 9.7 Phosphorus 4.9 H Magnesium 1.9 Total Bilirubin 1.9 H AST 64 H ALT 29 Alkaline Phosphatase 95 Total Protein 6.7 Albumin 3.4 L Vitamin B1 Microbiology Microbiology Results: Microbiology 06/09/20 13:11 Stool Stool Culture - Final 06/05/20 03:40 Blood - Venous Blood Culture - Final No growth after 5 days. 06/05/20 03:36 Blood - Venous Blood Culture - Final No growth after 5 days. 06/04/20 11:45 Blood - Venous Blood Culture - Final No growth after 5 days. 06/04/20 11:45 Blood - Venous Blood Culture - Final No growth after 5 days. 06/05/20 03:31 Sputum - Suctioned Gram Stain - Final 06/05/20 03:31 Sputum - Suctioned Sputum Culture - Final 06/04/20 11:35 Urine Catheterized - Powers Catheter Urine Culture - Final No growth. Progress Note: A&P Assessment and plan (1) Acute and chronic respiratory failure with hypoxia: Status: Acute Assessment and Plan: Assessment: 60-year-old gentleman with underlying morbid obesity, MJ/obesity hyperventilation syndrome alcoholism admitted on 05/29/2020 with alcohol withdrawal with hospital course complicated by cardiopulmonary arrest status post successful resuscitation, intubated during CPR, further complicated by encephalopathy and atrial fibrillation. Plan: Neuro: Encephalopathy, toxic versus metabolic versus critical care related versus anoxic. No significant improvement in mental status of last several days. Will consider repeat MRI in a.m.. Cardiac: Acute on chronic right-sided congestive heart failure improving with diuresis. Continue with diuresis. AFib, continue with rate control and anticoagulation. Pulmonary: Acute hypoxic respiratory failure, intubated during the CPR. Continue to titrate off ventilatory support as tolerated. Renal: No acute issues. Endo: No acute issues. GI: No acute issues. ID: No acute issues Heme/Onc: No acute issues. Psych: No acute issues. Miscellaneous: No acute issues. Prophylaxis: Heparin drip, ppi Diet: Tube feeds Critical care time spent: 60 minutes (2) Diastolic CHF, acute on chronic: Status: Acute (3) Cardiac arrest with successful resuscitation: Status: Acute (4) Encephalopathy: Status: Acute (5) Obesity hypoventilation syndrome: Status: Acute Time Spent With Patient Total time spent with greater than 50% in coordination of care (as documented) at patient's floor/unit and/or counseling patient:: 0 Critical Care Time 45
[2020-06-14] VITALS (33 sets, daily range): BP systolic 102–183; BP diastolic 66–98; PULSE 82–115; RESP 16–34; TEMP 37.7–38.8; O2SAT 91–100
--- NOTE | 2020-06-14 | MR_ITS ---
EXAMINATION: MR BRAIN WITHOUT CONTRAST CLINICAL INFORMATION: Encephalopathy. COMPARISON: Brain MRI from 06/10/2020. TECHNIQUE: MRI of the brain was obtained using routine sequences without contrast. FINDINGS: No focal restricted diffusion is demonstrated to suggest acute or subacute cerebral ischemia. No evidence of acute or chronic hemorrhagic products on heme-sensitive imaging. Nonspecific scattered periventricular, deep white matter, and brainstem T2 FLAIR hyperintensities most commonly seen with underlying microangiopathy. Proportional prominence of the ventricles and sulcal spaces without evidence of obstructive hydrocephalus. No abnormal mass effect. No midline shift. Normal appearance of the pituitary gland. Normal positioning of the cerebellar tonsils. Normal arterial and venous vascular flow voids are present. The patient is intubated. Normal, homogeneous marrow signal. Prominent bilateral mastoid effusions. Layering fluid within the pharynx, presumably related to intubation. Moderate mucosal thickening of the paranasal sinuses. Redemonstrated 2.3 cm retention cyst within the left maxillary sinus. MR/MR head/brain wo con IMPRESSION: 1. No acute intracranial abnormalities. 2. Stable nonspecific white matter changes most commonly seen with underlying microangiopathy.
--- NOTE | 2020-06-14 | XR_ITS ---
EXAMINATION: CHEST 1 VIEW CLINICAL INFORMATION: Hypoxia. COMPARISON: 06/09/2020. TECHNIQUE: An AP view of the chest is provided. FINDINGS: The cardiac silhouette is enlarged, though stable. The tip of the endotracheal tube is approximately 6 cm above the cruz. The enteric tube tip overlies the left upper quadrant, likely within the stomach. There are small bilateral pleural effusions with bibasilar airspace disease. Aeration within the right lung is improved. The osseous structures are stable. XR/XR chest 1V IMPRESSION: Lines and tubes in place as stated above. The tip of the endotracheal tube is approximately 6 cm above the cruz. Stable cardiomegaly. Small bilateral pleural effusions with bibasilar airspace disease and improved aeration within the right lung base.
[2020-06-14] MEDS: Heparin Sodium,Porcine/1/2NS 25,000 UNIT/250 ML IV.SOLN 19.8 UNIT IVCONT (00:15)
[2020-06-14] MEDS: propofoL 1,000 MG/100 ML VIAL 18.71 MG IVCONT ×3 (02:05→11:00)
[2020-06-14] MEDS: Albuterol/Iprat 2.5/0.5MG 3 ML AMPUL.NEB INHALE ×5 (04:26→20:21)
[2020-06-14 05:57] LABS: Basophils Percent Auto 0.3 % (0-2); Eosinophils Absolute Auto 0.2 X10*3/uL (0.0-0.4); Eosinophils Percent Auto 1.5 % (0-4); Imm Gran Abs Auto 0.08 X10*3/uL (0.00-0.03); Imm Gran Pct Auto 0.6 % (0.0-0.4); Lymphocytes Absolute Auto 1.7 X10*3/uL (1.2-4.9); Lymphocytes Percent Auto 11.6 % (20-40); Mean Corpuscular HGB Conc 32.4 g/dl (31.0-36.0); Mean Corpuscular Hemoglobin 34.3 pg (27.0-33.0); Mean Corpuscular Volume 105.7 fL (80-98); Mean Platelet Volume 12.5 fL (9.4-12.4); Monocytes Absolute Auto 1.4 X10*3/uL (0.1-1.2); Monocytes Percent Auto 9.9 % (2-11); Neutrophils Absolute Auto 10.8 X10*3/uL (2.0-8.3); Neutrophils Percent Auto 76.1 % (45-73); Platelet Count 220 X10*3/uL (160-400); Red Cell Distribution Width 14.6 % (11.0-16.0); White Blood Count 14.2 X10*3/uL (4.8-10.8)
[2020-06-14 05:58] LABS: MANUAL DIFF FLAG NO
[2020-06-14 06:14] LABS: Base Excess VBG 11.6 mmol/L; HCO3 VBG 37 mmol/L; Oxygen Saturation VBG 90.9 %; PCO2 VBG 54 mmhg; PO2 VBG 63 mmhg; pH VBG 7.46 (7.32-7.43)
[2020-06-14 06:16] LABS: PTT Heparin Drip 40.5 SEC (53-77.9)
[2020-06-14 06:26] LABS: Albumin Level 3.2 g/dL (3.5-5.0); Anion Gap 13 (12-20); Blood Urea Nitrogen 22 mg/dL (9-16); Calcium 9.5 mg/dL (8.4-10.2); Carbon Dioxide 39 mmol/L (22-29); Chloride 93 mmol/L (96-108); Creatinine Clr Calc Pharmacy 117.6; Estimated Glomerular Filt Rate > 60; Glucose Random 134 mg/dL (60-115); Magnesium 1.9 mg/dL (1.6-2.6); Phosphorus 4.2 mg/dL (2.7-4.5); Sodium 141 mmol/L (135-145)
[2020-06-14 07:03] LABS: Digoxin 0.7 ng/mL (0.8-2.0)
[2020-06-14] MEDS: Furosemide 40 MG/4 ML VIAL IVPUSH (07:46)
[2020-06-14] MEDS: Chlorhexidine Gluc Oral Rinse 15 ML MOUTHWASH BUCCAL ×3 (07:46→22:09)
[2020-06-14] MEDS: Digoxin 0.5 MG/2 ML AMPUL 0.125 MG IVPUSH (07:47)
[2020-06-14] MEDS: Thiamine HCL 100 MG TABLET PO (07:47)
[2020-06-14] MEDS: Potassium Chloride Packet 20 MEQ PACKET PO (07:47)
[2020-06-14] MEDS: Metoprolol Tartrate 25 MG TABLET PO ×3 (07:47→22:09)
[2020-06-14] MEDS: Spironolactone 25 MG TABLET PO (07:48)
[2020-06-14] MEDS: lisinopriL 40 MG TABLET PO (07:48)
[2020-06-14] MEDS: 0.9 % Sodium Chloride Flush 3 ML SYRINGE IVFLUSH ×3 (07:50→22:09)
[2020-06-14] MEDS: Heparin Sodium,Porcine 5,000 UNIT/ML VIAL 5000 UNIT SUBCUT ×2 (10:51→18:05)
--- NOTE | 2020-06-14 11:48 | P.PNCC_ITS ---
Subjective Subjective Date of Service: 06/14/20 Interval History: 60-year-old gentleman with underlying history of obesity, MJ on CPAP, hypertension, alcohol abuse admitted 05/29/2020 with alcohol withdrawal and treated with phenobarbital alcohol withdrawal protocol with hospital course complicated by cardiopulmonary arrest 03/16/2020, intubated during the CPR, and transferred to intensive care unit. Further hospital course significant for right-sided congestive heart failure improving with diuresis, encephalopathy with poor arousal during sedation vacation, and AFib. No events overnight. No changes in mental status. Physical Exam Vital Signs: Vital Signs: Last Vital Signs Temp 100.6 F H 06/14/20 08:00 Pulse 96 06/14/20 11:12 Resp 21 H 06/14/20 10:56 BP 139/74 06/14/20 10:56 Pulse Ox 100 06/14/20 10:56 Body Mass Index 39.4 Const: General: no acute distress; No alert or awake Nutritional Appearance: obese Eyes: Sclerae: sclerae normal Neck: Neck: Yes no lymphadenopathy, Yes trachea midline and Yes supple Resp: Auscultation: clear to auscultation bilaterally Cardio: Rate: regular rate Rhythm: regular rhythm Heart sounds: no gallops, no murmurs and no rubs GI: Palpation (GI): Soft to palpation and Other GI palpation findings present ( Nontender) Auscultation: normal bowel sounds Extrem: General: No clubbing, No cyanosis and Yes edema (1+ bilateral) Objective Data Labs CBC & Chem 7: 06/14/20 05:09 06/14/20 05:09 Labs: Laboratory Results - last 24 hr 06/14/20 06/14/20 06/14/20 05:09 05:09 05:09 WBC 14.2 H RBC 3.50 L Hgb 12.0 L Hct 37.0 L MCV 105.7 H MCH 34.3 H MCHC 32.4 RDW 14.6 Plt Count 220 MPV 12.5 H Immature Gran % (Auto) 0.6 H Neut % (Auto) 76.1 H Lymph % (Auto) 11.6 L [place] % (Auto) 9.9 Eos % (Auto) 1.5 Baso % (Auto) 0.3 Lymph # (Auto) 1.7 [place] # (Auto) 1.4 H Eos # (Auto) 0.2 Baso # (Auto) 0.0 Abs Immat Gran (auto) 0.08 H Absolute Neuts (auto) 10.8 H Absolute Nucleated RBC 0.000 Nucleated RBC % (auto) 0.0 PTT (Heparin Protocol) 40.5 L D VBG pH VBG pCO2 VBG pO2 VBG HCO3 VBG O2 Saturation VBG Base Excess Sodium 141 Potassium 4.0 Chloride 93 L Carbon Dioxide 39 H Anion Gap 13 BUN 22 H Creatinine 0.95 Estim Creat Clear Calc 117.6 Estimated GFR > 60 Random Glucose 134 H Calcium 9.5 Phosphorus 4.2 Magnesium 1.9 Albumin 3.2 L Digoxin 06/14/20 06/14/20 05:09 05:09 WBC RBC Hgb Hct MCV MCH MCHC RDW Plt Count MPV Immature Gran % (Auto) Neut % (Auto) Lymph % (Auto) [place] % (Auto) Eos % (Auto) Baso % (Auto) Lymph # (Auto) [place] # (Auto) Eos # (Auto) Baso # (Auto) Abs Immat Gran (auto) Absolute Neuts (auto) Absolute Nucleated RBC Nucleated RBC % (auto) PTT (Heparin Protocol) VBG pH 7.46 H VBG pCO2 54 VBG pO2 63 VBG HCO3 37 VBG O2 Saturation 90.9 VBG Base Excess 11.6 Sodium Potassium Chloride Carbon Dioxide Anion Gap BUN Creatinine Estim Creat Clear Calc Estimated GFR Random Glucose Calcium Phosphorus Magnesium Albumin Digoxin 0.7 L Microbiology Microbiology Results: Microbiology 06/09/20 13:11 Stool Stool Culture - Final 06/05/20 03:40 Blood - Venous Blood Culture - Final No growth after 5 days. 06/05/20 03:36 Blood - Venous Blood Culture - Final No growth after 5 days. 06/04/20 11:45 Blood - Venous Blood Culture - Final No growth after 5 days. 06/04/20 11:45 Blood - Venous Blood Culture - Final No growth after 5 days. 06/05/20 03:31 Sputum - Suctioned Gram Stain - Final 06/05/20 03:31 Sputum - Suctioned Sputum Culture - Final 06/04/20 11:35 Urine Catheterized - Powers Catheter Urine Culture - Final No growth. Progress Note: A&P Assessment and plan (1) Acute and chronic respiratory failure with hypoxia: Status: Acute Assessment and Plan: Assessment: 60-year-old gentleman with underlying morbid obesity, MJ/obesity hyperventilation syndrome alcoholism admitted on 05/29/2020 with alcohol withdrawal with hospital course complicated by cardiopulmonary arrest status post successful resuscitation, intubated during CPR, further complicated by encephalopathy and atrial fibrillation. Plan: Neuro: Encephalopathy, toxic versus metabolic versus critical care related versus anoxic. No significant improvement in mental status of last several days. Repeat MRI head today. Cardiac: Acute on chronic right-sided congestive heart failure improving with diuresis. Continue with diuresis. AFib, continue with rate control. Anticoagulation held secondary to bloody tracheal secretions. Pulmonary: Acute hypoxic respiratory failure, intubated during the CPR. Continue to titrate off ventilatory support as tolerated. Renal: No acute issues. Endo: No acute issues. GI: No acute issues. ID: No acute issues Heme/Onc: No acute issues. Psych: No acute issues. Miscellaneous: No acute issues. Prophylaxis: Heparin, ppi Diet: Tube feeds Critical care time spent: 60 minutes (2) Diastolic CHF, acute on chronic: Status: Acute (3) Cardiac arrest with successful resuscitation: Status: Acute (4) Encephalopathy: Status: Acute Time Spent With Patient Total time spent with greater than 50% in coordination of care (as documented) at patient's floor/unit and/or counseling patient:: 0 Critical Care Time Critical Care Time (minutes): 60
--- NOTE | 2020-06-14 11:55 | MHC.CM.PN ---
Patient remains intubated/vented in ICU. Patient is from home without services. May need PT eval for home safety when medically stable. Continue to monitor for d/c needs.
--- NOTE | 2020-06-14 17:49 | PC.NURSE ---
MRI ORDERED AND PERFORMED. SEDATION VACATION STARTED AFTER MRI. SEDATION TURNED OFF AT 1220. TUBE FEED HELD SINCE 1100. RESTRAINTS D/C'ED AT 1100. PT REMAINS UNABLE TO FOLLOW COMMANDS, OPENS EYES RANDOMLY AND TO TOUCH AND MOVEMENT, DOES NOT TRACK. LEFT TOES NOTED TO MOVE RANDOMLY AND NOT TO COMMAND. TMAX 100.6 ORALLY. VSS. VENT SETTINGS: AC 20 TV 450 PEEP 6 FI02 40% THEN DECREASED TO 30% AT 1600. COPIOUS, CLEAR ORAL SECRETIONS. LARGE TO MODERATE FROTHY, BLOODY-PINK INLINE SECRETIONS. MD AWARE. JHAVERI OUTPUT WNL. RECTAL TUBE OUTPUT 350 ML, BAG CHANGED. Q2H REPO, BATHED, BARRIER CREAM APPLIED, PREVALON MATTRESS USED. HCP UPDATED BY AND THIS RN.
--- NOTE | 2020-06-14 19:43 | P.PNNP_ITS ---
Subjective Subjective Date of Service: 06/14/20 Principal diagnosis: alcohol withdrawal, atrial fibrillation Interval history: 60-year-old gentleman with underlying history of obesity, MJ on CPAP, hypertension, alcohol abuse admitted 05/29/2020 with alcohol withdrawal and treated with phenobarbital alcohol withdrawal protocol with hospital course complicated by cardiopulmonary arrest 03/16/2020, intubated during the CPR, and transferred to intensive care unit. Further hospital course significant for right-sided congestive heart failure improving with diuresis, encephalopathy with poor arousal during sedation vacation, and AFib. No events overnight. No changes in mental status. Physical Exam Vital Signs: Vital Signs: Last Vital Signs Temp 99.9 F 06/14/20 12:00 Pulse 98 06/14/20 19:00 Resp 16 06/14/20 19:00 BP 183/90 H 06/14/20 19:00 Pulse Ox 94 06/14/20 19:00 Body Mass Index 39.4 Const: Other: Currently sedated and intubated Skin is intact no wounds and no acrocyanosis and diminishing anasarca and CVP is down to 8-9 Cardiac exam stable with no gallops or murmurs Chest with no adventitious sounds Abdomen obese but nondistended good bowel sounds soft General: cooperative, healthy appearing, comfortable, no acute distress, anxious, ill appearing, patient obtunded, tired appearing and other (Anasarca); No alert or awake Nutritional Appearance: obese morbidly obese Orientation/consciousness: patient oriented x3 and patient obtunded Limitations: no limitations HENMT: Head: Yes normal to inspection, Yes No palpable skull fracture present, Yes normocephalic and Yes atraumatic General nose exam: Normal external nose present Face and sinus: Yes normal facial exam Eyes: General: appearance normal, both eyes and all related structures Sclerae: sclerae normal Pupils: Equal, round and reactive pupils present EOM: EOMs intact bilaterally Neck: Neck: Yes normal visual inspection, Yes full ROM, Yes no lymphadenopathy, Yes trachea midline, Yes supple and Yes no JVD Chest: Chest palpation & inspection: normal inspection of the chest Resp: Effort & Inspection: normal respiratory effort, able to speak in c omplete sentences, decreased respiratory effort and no respiratory distress Auscultation: clear to auscultation bilaterally, crackles (Diffuse bilateral), rhonchi, wheezes expiratory wheezes and throughout and diminished lung sounds Cardio: Other: Currently sedated and intubated Skin is intact no wounds and no acrocyanosis and diminishing anasarca and CVP is down to 8-9 Cardiac exam stable with no gallops or murmurs Chest with no adventitious sounds Abdomen obese but nondistended good bowel sounds soft Jugular venous distension: no JVD Rate: regular rate, tachycardic and Other (irregular) Rhythm: regular rhythm and abnormal rhythm irregularly irregular Heart sounds: S1 normal heart sound present, S2 normal heart sound present, no click, no gallops, no murmurs and no rubs Peripheral pulses: Peripheral pulses 2+ throughout GI: Inspection: Yes normal to inspection and Yes obesity Palpation (GI): Soft to palpation and Other GI palpation findings present ( Nontender) Auscultation: normal bowel sounds Skin: Other: all four extremities are mottled, all fingertips and toes are dusky General skin exam: no rashes or lesions noted and other (flushed skin ) Trauma: no lacerations or abrasions Neuro: Other: sedated General: patient oriented x3, no focal motor deficits, patient obtunded and other (UE tremors) Cranial nerves: Yes Equal, round and reactive pupils present Cognition (Neuro): normal cognition Motor exam (neuro): No Asterixis during motor activity present Extrem: General: Yes normal to inspection, Yes no clubbing, cyanosis or edema, No clubbing, No cyanosis and Yes edema (1+ bilateral) Psych: Appearance: grossly normal and disheveled Mental Status: mental status grossly normal Speech and movement: Normal speech and movement present Affect: normal affect and Anxious affect present Attitude: cooperative Thought process: Normal thought process present and Circumstantial thought process present Thought content: Normal thought content present Insight: Good insight present (Psych) Judgement: Good judgement present (Psych) Objective Data Labs CBC & Chem 7: 06/14/20 05:09 06/14/20 05:09 Labs: Laboratory Results - last 24 hr 06/14/20 06/14/20 06/14/20 05:09 05:09 05:09 WBC 14.2 H RBC 3.50 L Hgb 12.0 L Hct 37.0 L MCV 105.7 H MCH 34.3 H MCHC 32.4 RDW 14.6 Plt Count 220 MPV 12.5 H Immature Gran % (Auto) 0.6 H Neut % (Auto) 76.1 H Lymph % (Auto) 11.6 L [place] % (Auto) 9.9 Eos % (Auto) 1.5 Baso % (Auto) 0.3 Lymph # (Auto) 1.7 [place] # (Auto) 1.4 H Eos # (Auto) 0.2 Baso # (Auto) 0.0 Abs Immat Gran (auto) 0.08 H Absolute Neuts (auto) 10.8 H Absolute Nucleated RBC 0.000 Nucleated RBC % (auto) 0.0 PTT (Heparin Protocol) 40.5 L D VBG pH VBG pCO2 VBG pO2 VBG HCO3 VBG O2 Saturation VBG Base Excess Sodium 141 Potassium 4.0 Chloride 93 L Carbon Dioxide 39 H Anion Gap 13 BUN 22 H Creatinine 0.95 Estim Creat Clear Calc 117.6 Estimated GFR > 60 Random Glucose 134 H Calcium 9.5 Phosphorus 4.2 Magnesium 1.9 Albumin 3.2 L Digoxin 06/14/20 06/14/20 05:09 05:09 WBC RBC Hgb Hct MCV MCH MCHC RDW Plt Count MPV Immature Gran % (Auto) Neut % (Auto) Lymph % (Auto) [place] % (Auto) Eos % (Auto) Baso % (Auto) Lymph # (Auto) [place] # (Auto) Eos # (Auto) Baso # (Auto) Abs Immat Gran (auto) Absolute Neuts (auto) Absolute Nucleated RBC Nucleated RBC % (auto) PTT (Heparin Protocol) VBG pH 7.46 H VBG pCO2 54 VBG pO2 63 VBG HCO3 37 VBG O2 Saturation 90.9 VBG Base Excess 11.6 Sodium Potassium Chloride Carbon Dioxide Anion Gap BUN Creatinine Estim Creat Clear Calc Estimated GFR Random Glucose Calcium Phosphorus Magnesium Albumin Digoxin 0.7 L Microbiology Microbiology Results: Microbiology 06/09/20 13:11 Stool Stool Culture - Final 06/05/20 03:40 Blood - Venous Blood Culture - Final No growth after 5 days. 06/05/20 03:36 Blood - Venous Blood Culture - Final No growth after 5 days. 06/04/20 11:45 Blood - Venous Blood Culture - Final No growth after 5 days. 06/04/20 11:45 Blood - Venous Blood Culture - Final No growth after 5 days. 06/05/20 03:31 Sputum - Suctioned Gram Stain - Final 06/05/20 03:31 Sputum - Suctioned Sputum Culture - Final 06/04/20 11:35 Urine Catheterized - Powers Catheter Urine Culture - Final No growth. Assessment & Plan Assessment and plan (1) Acute and chronic respiratory failure with hypoxia: Status: Acute Assessment and Plan: Assessment: 60-year-old gentleman with underlying morbid obesity, MJ/obesity hyperventilation syndrome alcoholism admitted on 05/29/2020 with alcohol withdrawal with hospital course complicated by cardiopulmonary arrest status post successful resuscitation, intubated during CPR, further complicated by encephalopathy and atrial fibrillation. Plan: Neuro: Encephalopathy, toxic versus metabolic versus critical care related versus anoxic. No significant improvement in mental status of last several days. Repeat MRI head today. Cardiac: Acute on chronic right-sided congestive heart failure improving with diuresis. Continue with diuresis. AFib, continue with rate control. An ticoagulation held secondary to bloody tracheal secretions. Pulmonary: Acute hypoxic respiratory failure, intubated during the CPR. Continue to titrate off ventilatory support as tolerated. Renal: No acute issues. Endo: No acute issues. GI: No acute issues. ID: No acute issues Heme/Onc: No acute issues. Psych: No acute issues. Miscellaneous: No acute issues. Prophylaxis: Heparin, ppi Diet: Tube feeds (2) Diastolic CHF, acute on chronic: Status: Acute (3) Cardiac arrest with successful resuscitation: Status: Acute (4) Encephalopathy: Status: Acute Time Spent With Patient Time with patient: less than 15 minutes
--- NOTE | 2020-06-14 21:49 | PM.CNNEP ---
History of Present Illness Reason for Consult Consult date: 06/14/20 Chief Complaint Chief complaint: ALCOHOL WITHDRAWAL Review of Systems Review of Systems N/A as pt is intubated and sedated Constitutional: Denies frequent falls, Denies headache(s) and Reports weakness Denies headache(s) Denies frequent falls, Denies headache(s) and Reports weakness PMFSH Past Medical History Medical History (Updated 06/11/20 @ 14:50 by Ander Rodriguez MD) Alcohol dependency Anxiety Arthritis Depression Gout HTN (hypertension) Seroma due to trauma Sleep apnea Functional capacity: independent ambulation Family History Family History (Updated 06/10/20 @ 10:00 by ANILA Sanchez, PHARMACEUTICAL SALES REPRESENTATIVE) Father Lung cancer Mother No problems noted. Maternal Aunt History of heart attack Sister No problems noted. Brother Cancer of kidney Brother No problems noted. Brother No problems noted. Brother No problems noted. Brother No problems noted. Brother No problems noted. Surgical History Surgical History (Updated 06/10/20 @ 09:41 by ANILA Sanchez, PHARMACEUTICAL SALES REPRESENTATIVE) No pertinent past surgical history Social History Social History Household Members: Spouse Housing: House Smoking Status: Current every day smoker Tobacco Type: Cigarette Packs Per Day: 1 Cigarettes Per Day: 20.0 Second Hand Smoke Exposure: No service: No Current occupational status: unemployed Meds Allergies Allergy/AdvReac Type Severity Reaction Status Date / Time No Known Allergies Allergy Verified 06/10/20 09:41 [No Known Allergies*] Home Medications Medication Instructions Recorded Confirmed Type allopurinol 100 mg tablet 100 mg PO DAILY 04/10/20 05/30/20 History duloxetine 60 mg capsule,delayed 60 mg PO DAILY 04/10/20 05/30/20 History release fluoxetine 40 mg capsule 40 mg PO DAILY 04/10/20 05/30/20 History lisinopril 5 mg tablet 5 mg PO DAILY 04/10/20 05/30/20 History atenolol 1 tab PO DAILY 05/30/20 05/30/20 History Physical Exam Vital Signs: Last Vital Signs Temp 101.9 F H 06/14/20 20:57 Pulse 107 H 06/14/20 20:57 Resp 24 H 06/14/20 20:57 BP 180/84 H 06/14/20 20:57 Pulse Ox 93 06/14/20 20:57 Body Mass Index 39.4 Const General: cooperative, healthy appearing, comfortable, no acute distress, anxious, ill appearing, patient obtunded, tired appearing and other (Anasarca); No alert or awake Nutritional Appearance: obese morbidly obese Orientation/consciousness: patient oriented x3 and patient obtunded Limitations: no limitations HENIA Head: Yes normal to inspection, Yes No palpable skull fracture present, Yes normocephalic and Yes atraumatic General nose exam: Normal external nose present Face and sinus: Yes normal facial exam Eyes General: appearance normal, both eyes and all related structures Sclerae: sclerae normal Pupils: Equal, round and reactive pupils present EOM: EOMs intact bilaterally Neck Neck: Yes normal visual inspection, Yes full ROM, Yes no lymphadenopathy, Yes trachea midline, Yes supple and Yes no JVD Chest Chest palpation & inspection: normal inspection of the chest Resp Effort & Inspection: normal respiratory effort, able to speak in complete sentences, decreased respiratory effort and no respiratory distress Auscultation: clear to auscultation bilaterally, crackles (Diffuse bilateral), rhonchi, wheezes expiratory wheezes and throughout and diminished lung sounds Cardio Jugular venous distension: no JVD Rate: regular rate, tachycardic and Other (irregular) Rhythm: regular rhythm and abnormal rhythm irregularly irregular Heart sounds: S1 normal heart sound present, S2 normal heart sound present, no click, no gallops, no murmurs and no rubs Peripheral pulses: Peripheral pulses 2+ throughout GI Inspection: Yes normal to inspection and Yes obesity Palpation (GI): Soft to palpation and Other GI palpation findings present ( Nontender) Auscultation: normal bowel sounds Skin General skin exam: no rashes or lesions noted and other (flushed skin ) Trauma: no lacerations or abrasions Neuro General: patient oriented x3, no focal motor deficits, patient obtunded and other (UE tremors) Cranial nerves: Yes Equal, round and reactive pupils present Cognition (Neuro): normal cognition Motor exam (neuro): No Asterixis during motor activity present Extrem General: Yes normal to inspection, Yes no clubbing, cyanosis or edema, No clubbing, No cyanosis and Yes edema (1+ bilateral) Psych Appearance: grossly normal and disheveled Mental Status: mental status grossly normal Speech and movement: Normal speech and movement present Affect: normal affect and Anxious affect present Attitude: cooperative Thought process: Normal thought process present and Circumstantial thought process present Thought content: Normal thought content present Insight: Good insight present (Psych) Judgement: Good judgement present (Psych) Results Lab Results Result Diagrams: 06/14/20 05:09 06/14/20 05:09 Lab results: Chemistry 06/12/20 06/13/20 06/14/20 05:35 05:30 05:09 Sodium 142 143 141 Potassium 3.4 3.6 4.0 Carbon Dioxide 35 H 37 H 39 H BUN 19 H 19 H 22 H Creatinine 0.96 0.93 0.95 Calcium 9.7 D 9.7 9.5 Phosphorus 3.5 4.9 H 4.2 Hematology 06/12/20 06/13/20 06/14/20 05:35 05:30 05:09 WBC 11.8 H 13.4 H 14.2 H Hgb 11.6 L 11.9 L 12.0 L Plt Count 167 200 220 Assessment and Plan (1) Acute and chronic respiratory failure with hypoxia: Status: Acute Assessment: 60-year-old gentleman with underlying morbid obesity, MJ/obesity hyperventilation syndrome alcoholism admitted on 05/29/2020 with alcohol withdrawal with hospital course complicated by cardiopulmonary arrest status post successful resuscitation, intubated during CPR, further complicated by encephalopathy and atrial fibrillation. Plan: Neuro: Encephalopathy, toxic versus metabolic versus critical care related versus anoxic. No significant improvement in mental status of last several days. Repeat MRI head today. Cardiac: Acute on chronic right-sided congestive heart failure improving with diuresis. Continue with diuresis. AFib, continue with rate control. Anticoagulation held secondary to bloody tracheal secretions. Pulmonary: Acute hypoxic respiratory failure, intubated during the CPR. Continue to titrate off ventilatory support as tolerated. Renal: No acute issues. Endo: No acute issues. GI: No acute issues. ID: No acute issues Heme/Onc: No acute issues. Psych: No acute issues. Miscellaneous: No acute issues. Prophylaxis: Heparin, ppi Diet: Tube feeds (2) Diastolic CHF, acute on chronic: Status: Acute (3) Cardiac arrest with successful resuscitation: Status: Acute (4) Encephalopathy: Status: Acute
[2020-06-15] VITALS (33 sets, daily range): BP systolic 129–197; BP diastolic 48–98; PULSE 85–115; RESP 18–28; TEMP 36.9–38.4; O2SAT 90–100
[2020-06-15] MEDS: Albuterol/Iprat 2.5/0.5MG 3 ML AMPUL.NEB INHALE ×6 (00:11→20:04)
[2020-06-15] MEDS: Heparin Sodium,Porcine 5,000 UNIT/ML VIAL 5000 UNIT SUBCUT ×3 (03:28→18:07)
[2020-06-15] MEDS: Metoprolol Tartrate 5 MG/5 ML VIAL IVPUSH (05:20)
[2020-06-15 05:42] LABS: Basophils Percent Auto 0.3 % (0-2); Eosinophils Absolute Auto 0.2 X10*3/uL (0.0-0.4); Eosinophils Percent Auto 1.1 % (0-4); Hematocrit 37.9 % (42-52); Imm Gran Abs Auto 0.08 X10*3/uL (0.00-0.03); Imm Gran Pct Auto 0.5 % (0.0-0.4); Lymphocytes Absolute Auto 1.7 X10*3/uL (1.2-4.9); Mean Corpuscular HGB Conc 31.7 g/dl (31.0-36.0); Mean Corpuscular Hemoglobin 33.5 pg (27.0-33.0); Mean Corpuscular Volume 105.9 fL (80-98); Mean Platelet Volume 12.3 fL (9.4-12.4); Monocytes Absolute Auto 1.6 X10*3/uL (0.1-1.2); Monocytes Percent Auto 10.1 % (2-11); Neutrophils Absolute Auto 11.9 X10*3/uL (2.0-8.3); Platelet Count 246 X10*3/uL (160-400); Red Blood Count 3.58 X10*6/uL (4.60-5.80); Red Cell Distribution Width 14.4 % (11.0-16.0); SCAN SMEAR FLAG 1; White Blood Count 15.5 X10*3/uL (4.8-10.8)
[2020-06-15 05:55] LABS: pH VBG 7.47 (7.32-7.43)
[2020-06-15 05:56] LABS: Base Excess VBG 8.7 mmol/L; HCO3 VBG 34 mmol/L; Oxygen Saturation VBG 86.7 %; PCO2 VBG 47 mmhg; PO2 VBG 52 mmhg
[2020-06-15 06:15] LABS: Alanine Aminotransferase 24 U/L (0-40); Albumin Level 3.1 g/dL (3.5-5.0); Alkaline Phosphatase 105 U/L (39-117); Anion Gap 12 (12-20); Aspartate Amino Transferase 52 U/L (5-37); Bilirubin Total 2.3 mg/dL (0.0-1.0); Blood Urea Nitrogen 23 mg/dL (9-16); Calcium 9.2 mg/dL (8.4-10.2); Carbon Dioxide 40 mmol/L (22-29); Chloride 92 mmol/L (96-108); Creatinine Clr Calc Pharmacy 124.2; Estimated Glomerular Filt Rate > 60; Glucose Random 132 mg/dL (60-115); Potassium 3.9 mmol/l (3.3-5.1); Sodium 140 mmol/L (135-145)
[2020-06-15 06:31] LABS: MANUAL DIFF FLAG SCAN
[2020-06-15 06:33] LABS: SLIDE REVIEW VERIFIED
[2020-06-15] MEDS: Spironolactone 25 MG TABLET PO (07:58)
[2020-06-15] MEDS: lisinopriL 40 MG TABLET PO (07:58)
[2020-06-15] MEDS: Digoxin 0.5 MG/2 ML AMPUL 0.125 MG IVPUSH (07:59)
[2020-06-15] MEDS: Furosemide 40 MG/4 ML VIAL IVPUSH (07:59)
[2020-06-15] MEDS: Metoprolol Tartrate 25 MG TABLET PO ×3 (07:59→21:11)
[2020-06-15] MEDS: Thiamine HCL 100 MG TABLET PO (07:59)
[2020-06-15] MEDS: Potassium Chloride Packet 20 MEQ PACKET PO (07:59)
[2020-06-15] MEDS: 0.9 % Sodium Chloride Flush 3 ML SYRINGE IVFLUSH ×2 (08:00→15:09)
[2020-06-15] MEDS: Chlorhexidine Gluc Oral Rinse 15 ML MOUTHWASH BUCCAL ×3 (08:00→21:11)
--- NOTE | 2020-06-15 10:41 | P.PNCC_ITS ---
Subjective Subjective Date of Service: 06/15/20 Interval History: ICU day 11 for cardiopulmonary arrest, encephalopathy, acute on chronic right-sided heart failure, acute respiratory failure. 60-year-old gentleman with underlying history of obesity, MJ on CPAP, hypertension, alcohol abuse admitted 05/29/2020 with alcohol withdrawal and treated with phenobarbital alcohol withdrawal protocol with hospital course complicated by cardiopulmonary arrest on 06/04/2020, intubated during the CPR, and transferred to intensive care unit. Further hospital course significant for right-sided congestive heart failure improving with diuresis, encephalopathy with poor arousal during sedation vacation, and AFib. No events overnight. No changes in mental status. Repeat MRI on 06/14/2020 20-for an acute intracranial process. Physical Exam Vital Signs: Vital Signs: Last Vital Signs Temp 99.4 F 06/15/20 08:00 Pulse 100 06/15/20 10:00 Resp 20 06/15/20 10:00 BP 166/89 H 06/15/20 10:00 Pulse Ox 100 06/15/20 10:00 Body Mass Index 39.4 Const: General: no acute distress; No alert or awake Nutritional Appearance: obese Eyes: Sclerae: sclerae normal EOM: EOMs intact bilaterally Neck: Neck: Yes no lymphadenopathy, Yes trachea midline and Yes supple Resp: Auscultation: clear to auscultation bilaterally Cardio: Rate: regular rate Rhythm: abnormal rhythm irregularly irregular Heart sounds: no gallops, no murmurs and no rubs GI: Palpation (GI): Soft to palpation and Other GI palpation findings present ( Nontender) Auscultation: normal bowel sounds Extrem: General: No clubbing, No cyanosis and Yes edema (Trace bilateral) Objective Data Labs CBC & Chem 7: 06/15/20 05:16 06/15/20 05:16 Labs: Laboratory Results - last 24 hr 06/15/20 06/15/20 06/15/20 05:16 05:16 05:16 WBC 15.5 H RBC 3.58 L Hgb 12.0 L Hct 37.9 L MCV 105.9 H MCH 33.5 H MCHC 31.7 RDW 14.4 Plt Count 246 MPV 12.3 Immature Gran % (Auto) 0.5 H Neut % (Auto) 77.0 H Lymph % (Auto) 11.0 L [place] % (Auto) 10.1 Eos % (Auto) 1.1 Baso % (Auto) 0.3 Lymph # (Auto) 1.7 [place] # (Auto) 1.6 H Eos # (Auto) 0.2 Baso # (Auto) 0.0 Abs Immat Gran (auto) 0.08 H Absolute Neuts (auto) 11.9 H Absolute Nucleated RBC 0.000 Nucleated RBC % (auto) 0.0 Smear Tech's Comments VERIFIED VBG pH 7.47 H VBG pCO2 47 VBG pO2 52 VBG HCO3 34 VBG O2 Saturation 86.7 VBG Base Excess 8.7 Sodium 140 Potassium 3.9 Chloride 92 L Carbon Dioxide 40 H* Anion Gap 12 BUN 23 H Creatinine 0.90 Estim Creat Clear Calc 124.2 Estimated GFR > 60 Random Glucose 132 H Calcium 9.2 Phosphorus 4.0 Magnesium 2.0 Total Bilirubin 2.3 H AST 52 H ALT 24 Alkaline Phosphatase 105 Total Protein 7.0 Albumin 3.1 L Microbiology Microbiology Results: Microbiology 06/09/20 13:11 Stool Stool Culture - Final 06/05/20 03:40 Blood - Venous Blood Culture - Final No growth after 5 days. 06/05/20 03:36 Blood - Venous Blood Culture - Final No growth after 5 days. 06/04/20 11:45 Blood - Venous Blood Culture - Final No growth after 5 days. 06/04/20 11:45 Blood - Venous Blood Culture - Final No growth after 5 days. 06/05/20 03:31 Sputum - Suctioned Gram Stain - Final 06/05/20 03:31 Sputum - Suctioned Sputum Culture - Final 06/04/20 11:35 Urine Catheterized - Powers Catheter Urine Culture - Final No growth. Progress Note: A&P Assessment and plan (1) Acute and chronic respiratory failure with hypoxia: Status: Acute Assessment and Plan: Assessment: 60-year-old gentleman with underlying morbid obesity, MJ/obesity hyperventilation syndrome alcoholism admitted on 05/29/2020 with alcohol w ithdrawal with hospital course complicated by cardiopulmonary arrest status post successful resuscitation, intubated during CPR, further complicated by encephalopathy and atrial fibrillation. Plan: Neuro: Encephalopathy, toxic versus metabolic versus critical care related versus anoxic. No significant improvement in mental status of last several days. Repeat MRI head on 06/14/2020 20-for an acute process. Will plan for EEG.. Cardiac: Acute on chronic right-sided congestive heart failure improving with diuresis. Continue with diuresis. AFib, continue with rate control. Anticoagulation held secondary to bloody tracheal secretions. Pulmonary: Acute hypoxic respiratory failure, intubated during the CPR. Continue to titrate off ventilatory support as tolerated. Renal: No acute issues. Endo: No acute issues. GI: No acute issues. ID: No acute issues Heme/Onc: No acute issues. Psych: No acute issues. Miscellaneous: No acute issues. Prophylaxis: Heparin, ppi Diet: Tube feeds Critical care time spent: 60 minutes (2) Diastolic CHF, acute on chronic: Status: Acute (3) Cardiac arrest with successful resuscitation: Status: Acute (4) Encephalopathy: Status: Acute Time Spent With Patient Total time spent with greater than 50% in coordination of care (as documented) at patient's floor/unit and/or counseling patient:: 0 Critical Care Time Critical Care Time (minutes): 60
--- NOTE | 2020-06-15 14:28 | PC.NURSE ---
Patient remains off sedation. Opening eyes to command but unable to follow other commands. Patient grimacing with light tactile stimulus and repositioning. Moving right fingers and bilateral toes. MD aware, plan for EEG Tuesday. Remains A.fib on tele, HR controlled in the mid 90's. SBP high this am trending in the 180s, MD aware, scheduled meds given, SBP trending down to 130s. Remains on AC vent settings: rate 20, tidal vol 450, peep 6, fio2 30% with o2 sats trending in the mid to high 90s and end tidal co2 in the 50s, MD aware. Small amount of thick clear inline and oral secretions noted. Patient tolerating tube feed at max rate of 50 cc/hr with 0-5 cc residual. Powers output trending around 100cc/hr. Patient has generalized anasarca. On specialized bed, air mattress, airtap mattress pad with wedges used for repositioning q2h and prn, and barrier cream applied for skin prevention.
--- NOTE | 2020-06-15 15:55 | MHC.CM.PN ---
Patient remains intubated/vented in ICU. Patient is from home without services. Continue to monitor for d/c needs.
--- NOTE | 2020-06-15 18:48 | PM.PNNEP ---
Subjective Subjective Date of Service: 06/15/20 Principal diagnosis: alcohol withdrawal, atrial fibrillation Interval history: ICU day 11 for cardiopulmonary arrest, encephalopathy, acute on chronic right-sided heart failure, acute respiratory failure. 60-year-old gentleman with underlying history of obesity, MJ on CPAP, hypertension, alcohol abuse admitted 05/29/2020 with alcohol withdrawal and treated with phenobarbital alcohol withdrawal protocol with hospital course complicated by cardiopulmonary arrest on 06/04/2020, intubated during the CPR, and transferred to intensive care unit. Further hospital course significant for right-sided congestive heart failure improving with diuresis, encephalopathy with poor arousal during sedation vacation, and AFib. seen and examined. Incr HCO3 noted and diamox started. Physical Exam Vital Signs: Vital Signs: Last Vital Signs Temp 98.6 F 06/15/20 15:00 Pulse 105 H 06/15/20 18:00 Resp 20 06/15/20 18:00 BP 151/70 H 06/15/20 18:00 Pulse Ox 90 L 06/15/20 18:00 Body Mass Index 39.4 Const: General: cooperative, healthy appearing, comfortable, no acute distress, anxious, ill appearing, patient obtunded, tired appearing and other (Anasarca); No alert or awake Nutritional Appearance: obese morbidly obese Orientation/consciousness: patient oriented x3 and patient obtunded Limitations: no limitations HENMT: Head: Yes normal to inspection, Yes No palpable skull fracture present, Yes normocephalic and Yes atraumatic General nose exam: Normal external nose present Face and sinus: Yes normal facial exam Eyes: General: appearance normal, both eyes and all related structures Sclerae: sclerae normal Pupils: Equal, round and reactive pupils present EOM: EOMs intact bilaterally Neck: Neck: Yes normal visual inspection, Yes full ROM, Yes no lymphadenopathy, Yes trachea midline, Yes supple and Yes no JVD Chest: Chest palpation & inspection: normal inspection of the chest Resp: Effort & Inspection: normal respiratory effort, able to speak in complete sentences, decreased respiratory effort and no respiratory distress Auscultation: clear to auscultation bilaterally, crackles (Diffuse bilateral), rhonchi, wheezes expiratory wheezes and throughout and diminished lung sounds Cardio: Jugular venous distension: no JVD Rate: regular rate, tachycardic and Other (irregular) Rhythm: regular rhythm and abnormal rhythm irregularly irregular Heart sounds: S1 normal heart sound present, S2 normal heart sound present, no click, no gallops, no murmurs and no rubs Peripheral pulses: Peripheral pulses 2+ throughout GI: Inspection: Yes normal to inspection and Yes obesity Palpation (GI): Soft to palpation and Other GI palpation findings present ( Nontender) Auscultation: normal bowel sounds Skin: General skin exam: no rashes or lesions noted and other (flushed skin ) Trauma: no lacerations or abrasions Neuro: General: patient oriented x3, no focal motor deficits, patient obtunded and other (UE tremors) Cranial nerves: Yes Equal, round and reactive pupils present Cognition (Neuro): normal cognition Motor exam (neuro): No Asterixis during motor activity present Extrem: General: Yes normal to inspection, Yes no clubbing, cyanosis or edema, No clubbing, No cyanosis and Yes edema (1+ bilateral) Psych: Appearance: grossly normal and disheveled Mental Status: mental status grossly normal Speech and movement: Normal speech and movement present Affect: normal affect and Anxious affect present Attitude: cooperative Thought process: Normal thought process present and Circumstantial thought process present Thought content: Normal thought content present Insight: Good insight present (Psych) Judgement: Good judgement present (Psych) Objective Data Labs CBC & Chem 7: 06/15/20 05:16 06/15/20 05:16 Labs: Laboratory Results - last 24 hr 06/15/20 06/15/20 06/15/20 05:16 05:16 05:16 WBC 15.5 H RBC 3.58 L Hgb 12.0 L Hct 37.9 L MCV 105.9 H MCH 33.5 H MCHC 31.7 RDW 14.4 Plt Count 246 MPV 12.3 Immature Gran % (Auto) 0.5 H Neut % (Auto) 77.0 H Lymph % (Auto) 11.0 L [place] % (Auto) 10.1 Eos % (Auto) 1.1 Baso % (Auto) 0.3 Lymph # (Auto) 1.7 [place] # (Auto) 1.6 H Eos # (Auto) 0.2 Baso # (Auto) 0.0 Abs Immat Gran (auto) 0.08 H Absolute Neuts (auto) 11.9 H Absolute Nucleated RBC 0.000 Nucleated RBC % (auto) 0.0 Smear Tech's Comments VERIFIED VBG pH 7.47 H VBG pCO2 47 VBG pO2 52 VBG HCO3 34 VBG O2 Saturation 86.7 VBG Base Excess 8.7 Sodium 140 Potassium 3.9 Chloride 92 L Carbon Dioxide 40 H* Anion Gap 12 BUN 23 H Creatinine 0.90 Estim Creat Clear Calc 124.2 Estimated GFR > 60 Random Glucose 132 H Calcium 9.2 Phosphorus 4.0 Magnesium 2.0 Total Bilirubin 2.3 H AST 52 H ALT 24 Alkaline Phosphatase 105 Total Protein 7.0 Albumin 3.1 L Microbiology Microbiology Results: Microbiology 06/09/20 13:11 Stool Stool Culture - Final 06/05/20 03:40 Blood - Venous Blood Culture - Final No growth after 5 days. 06/05/20 03:36 Blood - Venous Blood Culture - Final No growth after 5 days. 06/04/20 11:45 Blood - Venous Blood Culture - Final No growth after 5 days. 06/04/20 11:45 Blood - Venous Blood Culture - Final No growth after 5 days. 06/05/20 03:31 Sputum - Suctioned Gram Stain - Final 06/05/20 03:31 Sputum - Suctioned Sputum Culture - Final 06/04/20 11:35 Urine Catheterized - Powers Catheter Urine Culture - Final No growth. Assessment & Plan Assessment and plan (1) Acute and chronic respiratory failure with hypoxia: Status: Acute (2) Diastolic CHF, acute on chronic: Status: Acute (3) Cardiac arrest with successful resuscitation: Status: Acute (4) Encephalopathy: Status: Acute Assessment and Plan: 1. TBFOL: on diiurtic regiment with net neg 800 ml past 24 hrs 2. incr hcO3..diamox started 3. Resp Failure: improving with duresis 4. resp alk: suspect contraction alkalosis with diuressi REC: agree with diamox; track uop/renal func; avoid ntoixns Time Spent With Patient Time: Total time spent is greater than 50% in coordination of care (as documented) at patient's floor/unit and/or counseling patient:
[2020-06-15] MEDS: acetaZOLAMIDE sodium 500 MG VIAL 250 MG IVPUSH (21:11)
[2020-06-16] VITALS (37 sets, daily range): BP systolic 124–170; BP diastolic 71–98; PULSE 88–114; RESP 17–24; TEMP 37.5–38.6; O2SAT 92–98
[2020-06-16] MEDS: Albuterol/Iprat 2.5/0.5MG 3 ML AMPUL.NEB INHALE ×5 (01:03→15:42)
[2020-06-16] MEDS: 0.9 % Sodium Chloride Flush 3 ML SYRINGE IVFLUSH ×3 (01:16→16:05)
[2020-06-16] MEDS: Heparin Sodium,Porcine 5,000 UNIT/ML VIAL 5000 UNIT SUBCUT ×3 (01:57→19:16)
--- NOTE | 2020-06-16 05:46 | PC.NURSE ---
SEMIRESPONSIVE. OPENS OU TO TACTILE STIMULATION. OS LID OPENS MORE FULLY. DOES NOT ELICIT OCCULAR TRACKING OR FOCUSING. DOES NOT FOLLOW COMMAND. A FEW WEAK NONPURPOSEFUL MOVEMENTS ARE NOTE INVOLVING LOWER LEGS. NO MOVEMENT OF UPPER EXTREMITIES APPRECIATED. COMPLEXION SALLOW. GENERALIZED EDEMA APPRECIATED. A SMALL SKIN SPLIT IS NOTED AND DOCUMENTED ON COCCYX. PT HAS BEEN MAINTAINED ON PRESSURE SETTINGS OVER NIGHT PS 12 PEEP 6 FIO2 30%. VT 400-600 ML. BREATH SOUNDS DIMINISHED/A FEW SCATTERED RHONCHI. SUCTIONED VIA ETT FOR COPIOUS AMOUNTS OF THIN CLEAR PHELGM. HEMODYNAIMCALLY STABLE. ECG DISPLAYS AFIB. VENTRICULAR RESPONSE 90-110 BPM. AFEBRILE 99-101. TOLERATING TUBE FEEDINGS PROMOTE AT 50 ML/HR 120 ML H20 BOLUSES Q 4HR. U/O 60-120 ML/HR.
[2020-06-16 05:52] LABS: Basophils Absolute Auto 0.1 X10*3/uL (0.0-0.2); Basophils Percent Auto 0.4 % (0-2); Eosinophils Absolute Auto 0.2 X10*3/uL (0.0-0.4); Eosinophils Percent Auto 1.4 % (0-4); Hematocrit 37.1 % (42-52); Hemoglobin 11.8 g/dl (14.0-18.0); Imm Gran Abs Auto 0.07 X10*3/uL (0.00-0.03); Imm Gran Pct Auto 0.5 % (0.0-0.4); Lymphocytes Absolute Auto 1.8 X10*3/uL (1.2-4.9); Lymphocytes Percent Auto 12.5 % (20-40); MANUAL DIFF FLAG NO; Mean Corpuscular HGB Conc 31.8 g/dl (31.0-36.0); Mean Corpuscular Hemoglobin 33.4 pg (27.0-33.0); Mean Corpuscular Volume 105.1 fL (80-98); Mean Platelet Volume 12.1 fL (9.4-12.4); Monocytes Absolute Auto 1.2 X10*3/uL (0.1-1.2); Monocytes Percent Auto 8.8 % (2-11); Neutrophils Absolute Auto 10.7 X10*3/uL (2.0-8.3); Neutrophils Percent Auto 76.4 % (45-73); Platelet Count 255 X10*3/uL (160-400); Red Blood Count 3.53 X10*6/uL (4.60-5.80); Red Cell Distribution Width 14.6 % (11.0-16.0); White Blood Count 14.1 X10*3/uL (4.8-10.8)
[2020-06-16 06:05] LABS: Base Excess VBG 12.5 mmol/L; HCO3 VBG 40 mmol/L; PCO2 VBG 63 mmhg; PO2 VBG 43 mmhg; pH VBG 7.42 (7.32-7.43)
[2020-06-16 06:06] LABS: Oxygen Saturation VBG 77.2 %
[2020-06-16 06:30] LABS: Alanine Aminotransferase 36 U/L (0-40); Albumin Level 3.1 g/dL (3.5-5.0); Alkaline Phosphatase 124 U/L (39-117); Anion Gap 13 (12-20); Aspartate Amino Transferase 85 U/L (5-37); Bilirubin Total 2.2 mg/dL (0.0-1.0); Blood Urea Nitrogen 26 mg/dL (9-16); Calcium 9.3 mg/dL (8.4-10.2); Carbon Dioxide 37 mmol/L (22-29); Chloride 94 mmol/L (96-108); Creatinine Clr Calc Pharmacy 115.2; Estimated Glomerular Filt Rate > 60; Glucose Random 142 mg/dL (60-115); Magnesium 2.1 mg/dL (1.6-2.6); Phosphorus 3.9 mg/dL (2.7-4.5); Potassium 3.4 mmol/l (3.3-5.1); Sodium 141 mmol/L (135-145); Total Protein 6.9 g/dL (6.5-8.0)
[2020-06-16] MEDS: acetaZOLAMIDE sodium 500 MG VIAL 250 MG IVPUSH ×2 (07:47→22:24)
[2020-06-16] MEDS: Digoxin 0.5 MG/2 ML AMPUL 0.125 MG IVPUSH ×2 (07:47→16:04)
[2020-06-16] MEDS: Chlorhexidine Gluc Oral Rinse 15 ML MOUTHWASH BUCCAL ×3 (07:47→22:25)
[2020-06-16] MEDS: Metoprolol Tartrate 25 MG TABLET PO ×3 (07:48→22:25)
[2020-06-16] MEDS: lisinopriL 40 MG TABLET PO (07:48)
[2020-06-16] MEDS: Thiamine HCL 100 MG TABLET PO (07:49)
[2020-06-16] MEDS: Spironolactone 25 MG TABLET PO (07:49)
[2020-06-16] MEDS: Potassium Chloride Packet 20 MEQ PACKET PO (07:49)
--- NOTE | 2020-06-16 08:00 | EEG_ITS ---
This is a 16-channel EEG with an EKG lead. The patient is reported awake during the tracing. Background EEG rhythm is medium amplitude, mixed theta, beta with no obvious asymmetry or paroxysmal tendency. No sharp waves or spikes are noted. No asymmetry is noted. Cardiac lead does not reveal any significant abnormality with occasional PVCs. IMPRESSION: Generalized slowing with no evidence of seizure disorder. MD SIVAKUMAR Olmedo/NILTON / [phone]
--- NOTE | 2020-06-16 10:29 | MHC.CLN ---
F/U PT RECEIVING TF FORMULA PROMOTE AT MAX GOAL 55CC/HR WITH 120CC FREE WATER Q 4HRS PROVIDES 1320KCALS (CURRENTLY SEDATION OFF), 82G PROTEIN (1.0G/KG), 1976CC TOTAL WATER FROM FORMULA AND FLUSHES (24CC/KG BASED ON IBW) MONITOR TOLERANCE, RESIDUALS AND LYTES
--- NOTE | 2020-06-16 11:10 | MHC.CM.PN ---
Per MD rounds, day 17, 11days since cardiac arrest and ROSC. Will have EEG today. Will probably need trach soon. D/C planning pending EEG. No referrals placed yet.
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
--- NOTE | 2020-06-16 16:03 | MHC.SHP ---
Pre-Procedural Eval Section B Chief Complaint: ALCOHOL WITHDRAWAL Allergies: Allergies Allergy/AdvReac Type Severity Reaction Status Date / Time No Known Allergies Allergy Verified 06/10/20 09:41 [No Known Allergies*] Plan I have reviewed the history and physical and performed a pertinent physical examination on my patient. No changes have occurred unless specified.
--- NOTE | 2020-06-16 18:14 | P.BOP_ITS ---
Brief Operative Note Date of Service: 06/16/20 Pre-op diagnosis: Respiratory failure Post-op diagnosis: same Procedure: Percutaneous tracheostomy placement (8-0 cuffed Portex), PEG placement Surgeon: Dr. Jose L Perera Anesthesia: ROSENDO Quality Assurance Lab Technician: Nerissa Sesay Estimated blood loss (mL): 30 Condition: other (critical, but stable, back to ICU) Disposition: ICU
--- NOTE | 2020-06-16 18:55 | PC.NURSE ---
Patient follows commands inconsistently. Continues with fevers. Tmax 101. Vitals stable. Taken to the OR today for trach and PEG today. Family updated. Will continue to monitor.
[2020-06-16 20:41] LABS: RBC Bronchial Washing 0 MM*3
[2020-06-16 20:42] LABS: Neutrophils Bronchial 100 %
[2020-06-16 20:45] LABS: WBC Bronchial Washing 17 MM*3
--- NOTE | 2020-06-16 21:15 | OP_ITS ---
SURGEON: Jose L Perera MD PREOPERATIVE DIAGNOSIS: Respiratory failure. POSTOPERATIVE DIAGNOSIS: Respiratory failure. PROCEDURE PERFORMED: Bronchoscopy with washings, tracheostomy, percutaneous gastrostomy tube, and EGD. ESTIMATED BLOOD LOSS: COMPLICATIONS: ANESTHESIA: General. ASSISTANTS: Nerissa Sesay PA-C SPECIMENS: Left lower lobe washings for culture, fungus, and AFB. EBL: 50 mL. OPERATION IN DETAIL: On the day of the operation, the patient was brought to the operating room on the ICU bed and left on the ICU bed. Paralytic was employed. A time-out was performed confirming the correct patient, site, and procedure. The head and neck were extended and prepped and draped in the standard sterile fashion. First, a bronchoscopy was done visualizing the airways down to the subsegmental level bilaterally. There were no endobronchial lesions. There was little more to moderate secretions in the left lower lobe, and this area was lavaged with 120 mL of saline and collected in a specimen cup for culture, fungus, and AFB. Once this was completed, the airways were clear. The scope was brought to the tip of the endotracheal tube. The cuff was taken down, and the scope was pulled back to just below the level of the cords. An incision was made in the neck by the bedside medical record assistant, and the needle was then placed through the trachea, visualizing the catheter and the catheter was placed. A wire was then inserted through the catheter under vision through the bronchoscope. Once this was done, the first dilator was used. Over there was at this point some bleeding coming from superficially on the neck when pressure was held. The ET tube was advanced to bring the oxygen saturation back up, and then we repeated the process with the wire still in place. After doing this a couple more times and serial dilators including the Rhino, an attempt was made to place the tracheostomy. However, the wire had come out indicating we had not been inside the tracheal lumen, so everything was pulled out including the wire at this point and pressure was held, and there was again some bleeding superficially on the neck. We held pressure for some time. The endotracheal tube was readvanced and ventilated back down to bring the CO2 down and oxygen level back up. At this point, I scrubbed at the bedside and the superficial bleeder was controlled with a clamp, and a [id number] stitch was used to control bleeding with excellent effect. Once this was completed, we went back to the bronchoscope and the bedside medical record assistant again repeated the process above by placing a needle through the trachea under vision after the endotracheal tube had been brought pack. The catheter was left in place. Wire was then inserted and went downward. The first dilator was placed. The second dilator was placed without difficulty, and the Rhino dilator was placed over the top of the first dilator. Once this was done twice, the endotracheal tube with its internal dilator was placed over the wire and dilator into position. The wire and internal dilators were then removed, and the scope was removed from the endotracheal tube and placed through the tracheostomy, and there was no evidence of bleeding and the tip was about 2 cm from the cruz. The scope was then removed and was connected to the vent with excellent volumes. The tracheostomy was then secured with nylon suture. Trach ties were placed and a dressing was placed. He tolerated this portion relatively well including intermittent re-intubation and clearing of the blood clot to aid in ventilation. The abdomen was then exposed. EGD scope was then placed through the oropharynx and into the esophagus. This was brought down into the stomach and with the stomach distended, we transilluminated across the abdominal wall. The abdominal wall was marked by the bedside medical record assistant at that point, and the abdomen was prepped and draped in standard sterile fashion. A small incision was made at that point, and the needle and catheter were placed through the abdominal wall by the bedside medical record assistant and the catheter left in place. A wire was placed through the catheter, and a snare through the scope was used to snare the wire, and the wire was pulled back up through the oropharynx with the scope. This was looped into the percutaneous gastrostomy tube, and then the wire was pulled from the abdomen, pulling the gastrostomy tube down in the esophagus. Following this, with the EGD scope, this was brought back up against inside of the stomach at about 2 cm at the skin level. All the tube was being secured and clamp was placed. I did explore going down into the first portion of the duodenum. There were no mucosal lesions. The scope brought back and retroflexed at the GE junction. There were no mucosal lesions there either nor in the rest of the stomach. Once the PEG was secured, we did bring the scope back through the GE junction and the esophagus visualizing the mucosa of the esophagus throughout its length without any mucosal lesions. The scope was then pulled completely out and all equipment was removed. The patient tolerated the procedure well and was brought back to the ICU in stable, but guarded condition. MD UMAIR Gilmore/NILTON / [id number]
[2020-06-17] VITALS (34 sets, daily range): BP systolic 105–163; BP diastolic 53–87; PULSE 86–110; RESP 18–27; TEMP 37.2–38.4; O2SAT 90–100
--- NOTE | 2020-06-17 | XR_ITS ---
EXAMINATION: XR CHEST CLINICAL INFORMATION: Status post tracheostomy COMPARISON: None TECHNIQUE: Frontal view of the chest was obtained. FINDINGS: The tracheostomy tube lies at the level the clavicular heads. Approximately 8 cm above the cruz. Compared to previous exam there is some mild clearing at the right base. Persistent left basilar opacity which may be atelectasis infiltrate and/or fluid. Vascular congestion is once again present here. XR/XR chest 1V IMPRESSION: Tracheostomy 2 at the level of the clavicular heads 8 cm above the cruz. Persistent prominent interstitial pattern in the lungs and persistent left basilar opacity which may be atelectasis, infiltrate and/or fluid
[2020-06-17] MEDS: 0.9 % Sodium Chloride Flush 3 ML SYRINGE IVFLUSH ×4 (01:31→21:38)
[2020-06-17 01:36] LABS: Glucose Urine UA NEG (NEG); Leukocyte Esterase Urine NEG (NEG); Nitrite Urine NEG (NEG); PH 8.5 (5.0-8.0); Specific Gravity - Urine 1.015 (1.005-1.025); Urine Blood 1+ (NEG); Urine Ketones NEG (NEG)
[2020-06-17 01:37] LABS: Appearance Urine CLEAR; Color Urine AMBER; Urine Protein 1+ MG/DL (NEG-TRACE)
[2020-06-17 01:46] LABS: Bacteria Urine TRACE /LPF; Hyaline Casts Urine 0-2 /LPF
[2020-06-17 06:24] LABS: MANUAL DIFF FLAG NO
[2020-06-17 06:35] LABS: PCO2 VBG 48 mmhg; pH VBG 7.44 (7.32-7.43)
[2020-06-17 06:36] LABS: Base Excess VBG 6.2 mmol/L; HCO3 VBG 31 mmol/L; Oxygen Saturation VBG 94.3 %; PO2 VBG 71 mmhg
--- NOTE | 2020-06-17 06:39 | PC.NURSE ---
pPT MAINTAINED ON AC VENT SETTINGS OVERNIGHT. S/P TRACHEOSTOMY #8 PORTEX.. BLOODY SECRETIONS NOTED WITH CLOTS AND FREQUENT SUCTIONING REQUIRED VIA TRACH. PROVIDER PRUDENCE BARNES AWARE OF BLEEDING AND 0200 DOSE OF SQ HEPARIN HELD. BLEEDING SLOWED NIGHT PROGRESSED. NOT BLEEDING AROUND TRACH SITE. SITE CLEANSED WITH SALINE AND DRAIN SPONGE APPLIED. SUTURES INTACT. BP STABLE. MONITOR SHOWS AFIB, HR 90-110, OCC PVC NOTED. TEMP LOW GRADE. 100.1 PO. PT OPENS EYES BUT DOES NOT TRACK OR FOLLOW AND DOES NOT FOLLOW COMMANDS. HE MOVES HIS LEGS SLIGHTLY BUT DOES NOT MOVE HIS ARMS. HE GRIMACES WITH REPOSITIONING. TUBE FEEDS RESTARTED AT 0400 VIA NEW TRACHEOSTOMY LEFT UPPER QUAD. TUBE FLUSHES EASILY. SKIN IS INTACT. NO BM.
[2020-06-17 06:46] LABS: Lactic Acid 0.7 mmol/L (0.5-2.0)
[2020-06-17 06:47] LABS: INTERNATIONAL NORM RATIO 1.2 (0.9-1.1); Prothrombin Time 13.8 SEC (10.8-13.0)
[2020-06-17 06:48] LABS: Basophils Absolute Auto 0.1 X10*3/uL (0.0-0.2); Basophils Percent Auto 0.6 % (0-2); Eosinophils Absolute Auto 0.2 X10*3/uL (0.0-0.4); Eosinophils Percent Auto 1.3 % (0-4); Hematocrit 37.6 % (42-52); Hemoglobin 11.9 g/dl (14.0-18.0); Imm Gran Abs Auto 0.05 X10*3/uL (0.00-0.03); Imm Gran Pct Auto 0.3 % (0.0-0.4); Lymphocytes Absolute Auto 1.5 X10*3/uL (1.2-4.9); Lymphocytes Percent Auto 10.4 % (20-40); Mean Corpuscular HGB Conc 31.6 g/dl (31.0-36.0); Mean Corpuscular Volume 107.4 fL (80-98); Mean Platelet Volume 12.5 fL (9.4-12.4); Monocytes Absolute Auto 1.1 X10*3/uL (0.1-1.2); Monocytes Percent Auto 7.5 % (2-11); Neutrophils Absolute Auto 11.6 X10*3/uL (2.0-8.3); Neutrophils Percent Auto 79.9 % (45-73); Platelet Count 280 X10*3/uL (160-400); Red Cell Distribution Width 14.8 % (11.0-16.0); White Blood Count 14.6 X10*3/uL (4.8-10.8)
[2020-06-17 07:12] LABS: Alanine Aminotransferase 31 U/L (0-40); Alkaline Phosphatase 133 U/L (39-117); Anion Gap 14 (12-20); Aspartate Amino Transferase 68 U/L (5-37); Bilirubin Total 2.2 mg/dL (0.0-1.0); Blood Urea Nitrogen 30 mg/dL (9-16); Calcium 9.2 mg/dL (8.4-10.2); Carbon Dioxide 33 mmol/L (22-29); Chloride 99 mmol/L (96-108); Creatinine Clr Calc Pharmacy 106.4; Estimated Glomerular Filt Rate > 60; Glucose Random 116 mg/dL (60-115); Phosphorus 4.5 mg/dL (2.7-4.5); Potassium 3.5 mmol/l (3.3-5.1); Sodium 142 mmol/L (135-145); Total Protein 6.9 g/dL (6.5-8.0)
[2020-06-17 07:14] LABS: Procalcitonin 0.31 ng/mL
[2020-06-17] MEDS: acetaZOLAMIDE sodium 500 MG VIAL 250 MG IVPUSH ×2 (07:30→21:37)
[2020-06-17] MEDS: Chlorhexidine Gluc Oral Rinse 15 ML MOUTHWASH BUCCAL ×2 (07:31→14:16)
[2020-06-17] MEDS: Metoprolol Tartrate 25 MG TABLET PO ×3 (07:31→21:38)
[2020-06-17] MEDS: Digoxin 0.5 MG/2 ML AMPUL 0.25 MG IVPUSH (07:31)
[2020-06-17] MEDS: lisinopriL 40 MG TABLET PO (07:32)
[2020-06-17] MEDS: Thiamine HCL 100 MG TABLET PO (07:32)
[2020-06-17] MEDS: Heparin Sodium,Porcine 5,000 UNIT/ML VIAL 5000 UNIT SUBCUT ×2 (09:44→17:22)
--- NOTE | 2020-06-17 10:40 | MHC.CM.PN ---
Patient remains in ICU on ventilator. Trach and Peg were placed on 06/16. Spoke with patient's brother/HCP, Ortiz via telephone at [phone]. Explained patient would most likely need [facility] when medically stable. Also explained, could be as far as [place]. Ortiz is requesting the closest facility possible. Referral made to [facility] at this time. Continue to monitor for d/c needs.
--- NOTE | 2020-06-17 11:09 | MHC.CLN ---
F/U PT OFF SEDATION RECOMMEND INCREASING PROMOTE AT MAX GOAL 75CC/HR WITH 120CC FREE WATER Q 6HRS PROVIDES 1800KCALS (23KCALS/KG BASED ON IBW), 112.5G PROTEIN (1.4G/KG), 1990CC TOTAL WATER FROM FORMULA AND FLUSHES (25CC/KG BASED ON IBW) MONITOR TOLERANCE, RESIDUALS AND LYTES
--- NOTE | 2020-06-17 14:22 | MHC.CM.PN ---
Per MD rounds, trach and PEG placed yesterday. Pt prognosis very poor. Less alert. Responds to painful stimuli. Does not follow commands. Has been running fevers.EEG shows generalized slowing and no seizures. Dr. Torres requests referral to LTAC. Referral placed by Jesus Alberto Miller. Jesus Alberto Miller spoke to pt son, Ortiz. Aware of pt condition and need for referal to LTAC. Following for d/c needs
--- NOTE | 2020-06-17 15:57 | MHC.CM.PN ---
Received notification from [place] at [facility] that they would need a [facility] PSI signed by the brother/HCP. Spoke with Ortiz via telephone to explain this info. PSI emailed to Ortiz. Continue to monitor for d/c needs.
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
--- NOTE | 2020-06-17 18:34 | HO.POSTANES ---
Post Anesthesia Evaluation Post Anesthesia Evaluation Vital Signs: Vital Signs Temp Pulse Resp BP Pulse Ox 06/17/20 18:00 105 H 26 H 133/69 97 06/17/20 17:00 101.2 F H 100 24 H 127/61 96 06/17/20 16:00 101.1 F H 99 23 H 127/58 L 97 06/17/20 15:00 86 22 H 111/57 L 96 06/17/20 14:15 105 H 114/55 L 06/17/20 14:00 92 22 H 114/55 L 94 06/17/20 13:00 104 H 22 H 112/55 L 95 06/17/20 12:00 99.2 F 101 H 20 105/53 L 97 06/17/20 10:58 91 22 H 133/73 97 06/17/20 10:00 94 24 H 127/64 97 06/17/20 08:57 92 24 H 130/64 90 L 06/17/20 08:00 99.6 F 97 21 H 139/71 98 06/17/20 07:32 98 126/59 L 06/17/20 07:31 102 H 126/59 L 06/17/20 07:00 100.6 F H 100 20 120/66 97 Anesthesia: General Mental Status: Sedated Pain Control: Satisfactory Nausea/Vomiting: None Hydration: Adequate Anesthesia-Related Issues: No Anes. Related Issues
--- NOTE | 2020-06-17 18:39 | PC.NURSE ---
Patient remains on ventilator. Trach and PEG placed yesterday. Tolerating well. Vitals stable, although still having fevers. T max today 101.2. CXR obtained. Galvan cultured. Opens eyes, not following commands. Plan to get OOB tomorrow. Will continue to monitor.
[2020-06-18] VITALS (34 sets, daily range): BP systolic 137–181; BP diastolic 61–86; PULSE 78–120; RESP 13–30; TEMP 37.5–39.4; O2SAT 91–99
[2020-06-18] MEDS: Heparin Sodium,Porcine 5,000 UNIT/ML VIAL 5000 UNIT SUBCUT ×2 (01:35→08:24)
[2020-06-18 05:56] LABS: Basophils Absolute Auto 0.1 X10*3/uL (0.0-0.2); Basophils Percent Auto 0.6 % (0-2); Eosinophils Absolute Auto 0.2 X10*3/uL (0.0-0.4); Eosinophils Percent Auto 1.3 % (0-4); Hematocrit 37.2 % (42-52); Hemoglobin 11.5 g/dl (14.0-18.0); Imm Gran Abs Auto 0.07 X10*3/uL (0.00-0.03); Imm Gran Pct Auto 0.5 % (0.0-0.4); Lymphocytes Absolute Auto 2.1 X10*3/uL (1.2-4.9); Lymphocytes Percent Auto 14.5 % (20-40); MANUAL DIFF FLAG NO; Mean Corpuscular HGB Conc 30.9 g/dl (31.0-36.0); Mean Corpuscular Volume 106.9 fL (80-98); Mean Platelet Volume 12.4 fL (9.4-12.4); Monocytes Absolute Auto 1.3 X10*3/uL (0.1-1.2); Monocytes Percent Auto 8.9 % (2-11); Neutrophils Absolute Auto 10.5 X10*3/uL (2.0-8.3); Neutrophils Percent Auto 74.2 % (45-73); Platelet Count 292 X10*3/uL (160-400); Red Blood Count 3.48 X10*6/uL (4.60-5.80); Red Cell Distribution Width 14.7 % (11.0-16.0); White Blood Count 14.2 X10*3/uL (4.8-10.8)
[2020-06-18 06:25] LABS: Alanine Aminotransferase 25 U/L (0-40); Alkaline Phosphatase 138 U/L (39-117); Anion Gap 11 (12-20); Aspartate Amino Transferase 58 U/L (5-37); Bilirubin Total 1.9 mg/dL (0.0-1.0); Blood Urea Nitrogen 30 mg/dL (9-16); Calcium 9.1 mg/dL (8.4-10.2); Carbon Dioxide 36 mmol/L (22-29); Chloride 101 mmol/L (96-108); Creatinine Clr Calc Pharmacy 108.5; Estimated Glomerular Filt Rate > 60; Glucose Random 133 mg/dL (60-115); Phosphorus 3.6 mg/dL (2.7-4.5); Potassium 3.1 mmol/l (3.3-5.1); Sodium 145 mmol/L (135-145)
[2020-06-18 06:36] LABS: Base Excess VBG 6.7 mmol/L; HCO3 VBG 34 mmol/L; Oxygen Saturation VBG 75.8 %; PCO2 VBG 60 mmhg; PO2 VBG 42 mmhg; pH VBG 7.38 (7.32-7.43)
--- NOTE | 2020-06-18 07:00 | ECG_ITS ---
Test Reason : ORDER Blood Pressure : / mmHG Vent. Rate : 109 BPM Atrial Rate : 100 BPM P-R Int : 000 ms QRS Dur : 086 ms QT Int : 278 ms P-R-T Axes : 000 028 239 degrees QTc Int : 374 ms Atrial fibrillation with rapid ventricular response ST & T wave abnormality, consider lateral ischemia Abnormal ECG When compared with ECG of 04-JUN-2020 22:24, Nonspecific T wave abnormality, worse in Inferior leads T wave inversion now evident in Lateral leads QT has shortened Referred By: David Abad Electronically Signed By:OLGA GRANDA MD
[2020-06-18] MEDS: 0.9 % Sodium Chloride Flush 3 ML SYRINGE IVFLUSH ×3 (07:47→23:26)
--- NOTE | 2020-06-18 07:50 | MHC.PIE ---
P: Estrellita 102.1 @ 0400. I: David BARNES made aware of estrellita, already had blood cultures drawn from <24 hour ago at 6am prev day, pending. E: Patient HR 90's to low 100's, afib.
--- NOTE | 2020-06-18 07:51 | PC.NURSE ---
Shift eval 3a-7a: Patient responds to tactile stim, non purposeful movement, opens eyes to stimulation, but does not follow commands. Patient 8 portex, cuffed. inner cannula changed, trach tie changed, stoma clensed & drainage sponge changed. Patient tolerating vent, but having to be suctioned intermit, especially w/ repositioning. In-line suctioning large amt clear/pink tinged secretions. full bath given, repos Q2h. Incont small amt brown stool. Urine output >50ml/hr. Elevated temp reported to PA.
[2020-06-18] MEDS: acetaZOLAMIDE sodium 500 MG VIAL 250 MG IVPUSH (08:23)
[2020-06-18] MEDS: Metoprolol Tartrate 25 MG TABLET PO ×3 (08:24→20:26)
[2020-06-18] MEDS: Thiamine HCL 100 MG TABLET PO (08:24)
[2020-06-18] MEDS: lisinopriL 40 MG TABLET PO (08:24)
[2020-06-18] MEDS: Potassium Chloride Packet 20 MEQ PACKET 40 MEQ G-TUBE ×2 (08:24→10:28)
[2020-06-18] MEDS: Digoxin 0.5 MG/2 ML AMPUL 0.25 MG IVPUSH (08:25)
--- NOTE | 2020-06-18 10:47 | PC.NURSE ---
7 beat VTach on monitor - K 3.1 - MD notified - Pot Chld 40meq x2 doses through PEG ordered and administered. Will continue to monitor.
--- NOTE | 2020-06-18 12:03 | MHC.CM.PN ---
Patient remains on vent via trach in ICU. Referrals have been made to 1)[facility] and 2)[facility]. Waiting for patient's brother/hcp, Ortiz to return [facility] PSI form so [facility] can speak to [facility]. Continue to monitor for d/c needs.
--- NOTE | 2020-06-18 12:07 | MHC.CLN ---
F/U PT RECEIVING PROMOTE AT MAX GOAL 75CC/HR WITH 120CC FREE WATER Q 6HRS PROVIDES 1800KCALS (23KCALS/KG BASED ON IBW), 112.5G PROTEIN (1.4G/KG), 1990CC TOTAL WATER FROM FORMULA AND FLUSHES (25CC/KG BASED ON IBW) NOTED PT WITH FEVERS -ADJUST FREE WATER NEEDED MONITOR TOLERANCE, RESIDUALS AND LYTES
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
[2020-06-18] MEDS: Apixaban 5 MG TABLET G-TUBE ×2 (15:47→20:26)
[2020-06-18] MEDS: Chlorhexidine Gluc Oral Rinse 15 ML MOUTHWASH BUCCAL (20:26)
[2020-06-18] MEDS: acetaZOLAMIDE 250 MG TABLET 500 MG G-TUBE (20:26)
[2020-06-18] MEDS: Acetaminophen 325 MG TABLET 975 MG G-TUBE (20:36)
[2020-06-19] VITALS (33 sets, daily range): BP systolic 142–187; BP diastolic 56–92; PULSE 85–116; RESP 17–32; TEMP 38.2–39.2; O2SAT 89–119
[2020-06-19 05:56] LABS: MANUAL DIFF FLAG NO
[2020-06-19 05:58] LABS: Basophils Absolute Auto 0.1 X10*3/uL (0.0-0.2); Basophils Percent Auto 0.7 % (0-2); Eosinophils Absolute Auto 0.2 X10*3/uL (0.0-0.4); Eosinophils Percent Auto 1.2 % (0-4); Hematocrit 37.9 % (42-52); Hemoglobin 11.8 g/dl (14.0-18.0); Imm Gran Abs Auto 0.09 X10*3/uL (0.00-0.03); Imm Gran Pct Auto 0.7 % (0.0-0.4); Lymphocytes Absolute Auto 2.3 X10*3/uL (1.2-4.9); Lymphocytes Percent Auto 16.8 % (20-40); Mean Corpuscular HGB Conc 31.1 g/dl (31.0-36.0); Mean Corpuscular Hemoglobin 33.1 pg (27.0-33.0); Mean Corpuscular Volume 106.2 fL (80-98); Mean Platelet Volume 12.7 fL (9.4-12.4); Monocytes Absolute Auto 1.2 X10*3/uL (0.1-1.2); Monocytes Percent Auto 8.7 % (2-11); Neutrophils Absolute Auto 9.8 X10*3/uL (2.0-8.3); Neutrophils Percent Auto 71.9 % (45-73); Platelet Count 291 X10*3/uL (160-400); Red Blood Count 3.57 X10*6/uL (4.60-5.80); Red Cell Distribution Width 14.5 % (11.0-16.0); White Blood Count 13.7 X10*3/uL (4.8-10.8)
[2020-06-19 06:30] LABS: Anion Gap 15 (12-20); Blood Urea Nitrogen 34 mg/dL (9-16); Calcium 9.5 mg/dL (8.4-10.2); Carbon Dioxide 30 mmol/L (22-29); Chloride 107 mmol/L (96-108); Creatinine Clr Calc Pharmacy 101.6; Estimated Glomerular Filt Rate > 60; Glucose Random 143 mg/dL (60-115); Magnesium 2.3 mg/dL (1.6-2.6); Potassium 3.6 mmol/l (3.3-5.1); Sodium 148 mmol/L (135-145)
[2020-06-19 06:32] LABS: pH VBG 7.42 (7.32-7.43)
[2020-06-19 06:33] LABS: Base Excess VBG 5.3 mmol/L; HCO3 VBG 31 mmol/L; Oxygen Saturation VBG 78.3 %; PCO2 VBG 48 mmhg; PO2 VBG 44 mmhg
--- NOTE | 2020-06-19 10:48 | MHC.CM.PN ---
Patient remains in ICU on vent via trach. Per Dr Torres, patient's mental status may take a while to improve. Spoke with patient's brother/HCP Ortiz via telephone. He will complete the [facility] PSI for [facility] and bring it to the main lobby of the hospital. He will ask someone at the information desk to give it to case management. [facility] is first choice. However they are requiring the PSI in order to obtain information about patient's [facility]. Continue to monitor for d/c needs.
[2020-06-19] MEDS: Chlorhexidine Gluc Oral Rinse 15 ML MOUTHWASH BUCCAL ×3 (10:57→20:45)
[2020-06-19] MEDS: Metoprolol Tartrate 25 MG TABLET PO (10:57)
[2020-06-19] MEDS: Apixaban 5 MG TABLET G-TUBE ×2 (10:58→20:35)
[2020-06-19] MEDS: Digoxin 0.5 MG/2 ML AMPUL 0.25 MG IVPUSH (10:58)
[2020-06-19] MEDS: Thiamine HCL 100 MG TABLET PO (10:58)
[2020-06-19] MEDS: acetaZOLAMIDE 250 MG TABLET 500 MG G-TUBE ×2 (10:59→20:32)
[2020-06-19] MEDS: lisinopriL 40 MG TABLET PO (10:59)
[2020-06-19] MEDS: 0.9 % Sodium Chloride Flush 3 ML SYRINGE IVFLUSH ×2 (11:00→16:28)
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
--- NOTE | 2020-06-19 14:46 | US_ITS ---
EXAMINATION: US VENOUS ULTRASOUND WITH DOPPLER LOWER EXTREMITY, BILATERAL CLINICAL INFORMATION: History of pulmonary embolism COMPARISON: None TECHNIQUE: Ultrasound of the deep veins is performed from the hip to the calf with compression sonography and color and pulse Doppler assessment. Spectral analysis with color-flow imaging is performed. FINDINGS: RIGHT: There is normal venous compression and respiratory variation and augmented flow. The visualized common femoral vein, superficial femoral vein, profunda femoral vein, popliteal vein, and the trifurcation region shows no evidence of deep venous thrombosis. There is limited visualization of the calf veins, peroneal and posterior tibial vein. There is no significant popliteal fossa cyst. LEFT: There is normal venous compression and respiratory variation and augmented flow. The visualized common femoral vein, superficial femoral vein, profunda femoral vein, popliteal vein, and the trifurcation region shows no evidence of deep venous thrombosis. There is limited visualization of the calf veins, peroneal and posterior tibial vein. There is no significant popliteal fossa cyst. If the patient's symptoms persist, followup ultrasound in 5 days 7 days might be of value to exclude proximal propagation from a non-visualized calf vein. US/US venous duplex LE IMPRESSION: No DVT demonstrated in the bilateral lower extremity.
--- NOTE | 2020-06-19 15:26 | PC.NURSE ---
sputum micro of gram negative rods reported to MD, started on abx, temp up to 102.2 thsi shift
[2020-06-19] MEDS: Metoprolol Tartrate 25 MG TABLET 75 MG PO ×2 (16:27→20:30)
[2020-06-19] MEDS: Dextrose 5 % 1,000 ML 50 ML IVCONT (16:27)
[2020-06-19] MEDS: Piperacillin Sodium/Tazobactam 3.375 GM in 0.9 % Sodium Chloride 50 ML IV ×2 (16:28→20:45)
[2020-06-19] MEDS: Acetaminophen 325 MG TABLET 975 MG G-TUBE (20:34)
[2020-06-20] VITALS (31 sets, daily range): BP systolic 143–180; BP diastolic 64–96; PULSE 66–106; RESP 21–33; TEMP 37.4–39.4; O2SAT 89–98
[2020-06-20] MEDS: Piperacillin Sodium/Tazobactam 3.375 GM in 0.9 % Sodium Chloride 50 ML IV ×3 (04:30→14:39)
[2020-06-20 05:45] LABS: MANUAL DIFF FLAG NO
[2020-06-20 05:47] LABS: Basophils Absolute Auto 0.1 X10*3/uL (0.0-0.2); Basophils Percent Auto 0.7 % (0-2); Eosinophils Absolute Auto 0.3 X10*3/uL (0.0-0.4); Eosinophils Percent Auto 2.7 % (0-4); Hematocrit 38.3 % (42-52); Hemoglobin 11.9 g/dl (14.0-18.0); Imm Gran Abs Auto 0.05 X10*3/uL (0.00-0.03); Imm Gran Pct Auto 0.4 % (0.0-0.4); Lymphocytes Absolute Auto 1.8 X10*3/uL (1.2-4.9); Lymphocytes Percent Auto 15.5 % (20-40); Mean Corpuscular HGB Conc 31.1 g/dl (31.0-36.0); Mean Corpuscular Hemoglobin 33.2 pg (27.0-33.0); Mean Platelet Volume 12.6 fL (9.4-12.4); Monocytes Absolute Auto 1.1 X10*3/uL (0.1-1.2); Monocytes Percent Auto 9.2 % (2-11); Neutrophils Absolute Auto 8.5 X10*3/uL (2.0-8.3); Neutrophils Percent Auto 71.5 % (45-73); Platelet Count 295 X10*3/uL (160-400); Red Blood Count 3.58 X10*6/uL (4.60-5.80); Red Cell Distribution Width 14.8 % (11.0-16.0); White Blood Count 11.9 X10*3/uL (4.8-10.8)
[2020-06-20 06:35] LABS: Digoxin 1.1 ng/mL (0.8-2.0)
[2020-06-20 06:36] LABS: Base Excess VBG 2.9 mmol/L; HCO3 VBG 28 mmol/L; PCO2 VBG 46 mmhg; PO2 VBG 45 mmhg; pH VBG 7.41 (7.32-7.43)
[2020-06-20] MEDS: 0.9 % Sodium Chloride Flush 3 ML SYRINGE IVFLUSH ×2 (07:46→14:40)
[2020-06-20] MEDS: Apixaban 5 MG TABLET G-TUBE ×2 (07:47→21:07)
[2020-06-20] MEDS: Chlorhexidine Gluc Oral Rinse 15 ML MOUTHWASH BUCCAL ×3 (07:47→21:06)
[2020-06-20] MEDS: acetaZOLAMIDE 250 MG TABLET 500 MG G-TUBE ×2 (07:47→21:06)
[2020-06-20] MEDS: Digoxin 0.5 MG/2 ML AMPUL 0.25 MG IVPUSH (07:47)
[2020-06-20] MEDS: Thiamine HCL 100 MG TABLET PO (07:48)
[2020-06-20] MEDS: lisinopriL 40 MG TABLET PO (07:48)
[2020-06-20] MEDS: Metoprolol Tartrate 25 MG TABLET 75 MG PO (08:12)
[2020-06-20] MEDS: Dextrose 5 % 1,000 ML 50 ML IVCONT (12:10)
--- NOTE | 2020-06-20 15:42 | ECG_ITS ---
Test Reason : rhythm eval- st wave Blood Pressure : / mmHG Vent. Rate : 095 BPM Atrial Rate : 159 BPM P-R Int : 000 ms QRS Dur : 084 ms QT Int : 282 ms P-R-T Axes : 000 034 237 degrees QTc Int : [address] & T wave abnormality, consider inferolateral ischemia Abnormal ECG When compared with ECG of 18-JUN-2020 06:44, No significant change was found Referred By: Rocky Torres Electronically Signed By:OLGA GRANDA MD
[2020-06-20] MEDS: Caspofungin Acetate 70 MG in 0.9 % Sodium Chloride 250 ML 250 MG IV (18:27)
--- NOTE | 2020-06-20 18:43 | PC.NURSE ---
shift update; pt remains on ventilator psv 14/6, fio2 28%, tolerating well; pt remains only responsive to noxious stimuli and light painful stimuli; pt clamping down on suctioning tubing but not interactive, not tracking, or following commands; afib on monitor- rate controlled; metoprolol sched dose adjusted; lung sounds occasionally coarse and pt desating occasionally requiring suctioning via trach with sm-mod amt of cream colored sputum; trach stoma cleansed, trach ties changed and inner cannula changed this shift; tlc dsg changed; bathed head to toe and turning q2h this shift; pressure injury on meatus noted early this shift- picture obtained and placed on chart; temp spike 103 orally at ~1600 check- venous blood cultures drawn- caspofungin ordered and hung; zosyn d/c'ed- rocephin added; vs remain stable throughout shift; d5w running- tolerating tfs throughout shift and tolerating 120 ml q4h free water flushes;
[2020-06-20] MEDS: Acetaminophen 325 MG TABLET 975 MG G-TUBE (20:52)
[2020-06-20] MEDS: cefTRIAXone sodium 1 GM in 0.9 % Sodium Chloride 50 ML IV (21:02)
[2020-06-20] MEDS: Metoprolol Tartrate 100 MG TABLET PO (21:06)
--- NOTE | 2020-06-20 23:00 | W.PM.CCHP ---
Procedures Abscess I/D Consent for Procedure: Emergent-no informed consent obtained
--- NOTE | 2020-06-20 23:05 | XR_ITS ---
EXAMINATION: CHEST 1 VIEW CLINICAL INFORMATION: Line placement. COMPARISON: 06/17/2020. TECHNIQUE: An AP view of the chest is provided. FINDINGS: The cardiac silhouette is stable. There is persistent retrocardiac airspace disease with a small left pleural effusion. A tracheostomy tube is in unchanged position. The tip is approximately 8 cm above the cruz. A right central venous line has a tip that overlies the SVC/right atrial junction. The left central venous line has been removed. The osseous structures are stable. XR/XR chest 1V IMPRESSION: Right central venous line in place. Tracheostomy tube in place. Interval removal left central venous line. Persistent small left pleural effusion and retrocardiac airspace disease.
[2020-06-21] VITALS (32 sets, daily range): BP systolic 125–155; BP diastolic 49–72; PULSE 61–100; RESP 19–27; TEMP 37.1–38.5; O2SAT 94–99
[2020-06-21] MEDS: 0.9 % Sodium Chloride Flush 3 ML SYRINGE IVFLUSH ×4 (03:29→23:19)
--- NOTE | 2020-06-21 05:03 | PC.NURSE ---
TLC changed by David BARNES. New TLC placed RIJ. pCXR done to confirm placement and read by the PA. Old TLC removed from [facility] without complication and dsg applied.
[2020-06-21] MEDS: Dextrose 5 % 1,000 ML 50 ML IVCONT (05:35)
[2020-06-21 06:07] LABS: Eosinophils Percent Auto 3.5 % (0-4); Imm Gran Pct Auto 0.4 % (0.0-0.4); PLT ABN DIST 1; SCAN SMEAR FLAG 1
[2020-06-21 06:09] LABS: Basophils Absolute Auto 0.1 X10*3/uL (0.0-0.2); Basophils Percent Auto 0.8 % (0-2); Eosinophils Absolute Auto 0.4 X10*3/uL (0.0-0.4); Hematocrit 38.2 % (42-52); Hemoglobin 11.9 g/dl (14.0-18.0); Imm Gran Abs Auto 0.05 X10*3/uL (0.00-0.03); Lymphocytes Absolute Auto 1.7 X10*3/uL (1.2-4.9); Lymphocytes Percent Auto 14.2 % (20-40); MANUAL DIFF FLAG NO; Mean Corpuscular HGB Conc 31.2 g/dl (31.0-36.0); Mean Corpuscular Hemoglobin 33.1 pg (27.0-33.0); Mean Corpuscular Volume 106.1 fL (80-98); Mean Platelet Volume 13.3 fL (9.4-12.4); Monocytes Absolute Auto 1.2 X10*3/uL (0.1-1.2); Neutrophils Absolute Auto 8.2 X10*3/uL (2.0-8.3); Neutrophils Percent Auto 71.1 % (45-73); Platelet Count 315 X10*3/uL (160-400); Red Cell Distribution Width 14.7 % (11.0-16.0); White Blood Count 11.6 X10*3/uL (4.8-10.8)
[2020-06-21 06:25] LABS: Base Excess VBG 1.3 mmol/L; HCO3 VBG 27 mmol/L; PCO2 VBG 45 mmhg; PO2 VBG 38 mmhg; pH VBG 7.39 (7.32-7.43)
[2020-06-21 06:32] LABS: Alanine Aminotransferase 46 U/L (0-40); Albumin Level 2.8 g/dL (3.5-5.0); Alkaline Phosphatase 164 U/L (39-117); Anion Gap 16 (12-20); Aspartate Amino Transferase 94 U/L (5-37); Bilirubin Total 1.6 mg/dL (0.0-1.0); Blood Urea Nitrogen 42 mg/dL (9-16); Calcium 8.7 mg/dL (8.4-10.2); Carbon Dioxide 25 mmol/L (22-29); Chloride 106 mmol/L (96-108); Creatinine Clr Calc Pharmacy 95.5; Estimated Glomerular Filt Rate > 60; Glucose Random 187 mg/dL (60-115); Magnesium 2.1 mg/dL (1.6-2.6); Phosphorus 4.6 mg/dL (2.7-4.5); Potassium 3.7 mmol/l (3.3-5.1); Sodium 143 mmol/L (135-145)
[2020-06-21] MEDS: Thiamine HCL 100 MG TABLET PO (08:25)
[2020-06-21] MEDS: lisinopriL 40 MG TABLET PO (08:25)
[2020-06-21] MEDS: acetaZOLAMIDE 250 MG TABLET 500 MG G-TUBE (08:25)
[2020-06-21] MEDS: Digoxin 0.25 MG TABLET G-TUBE (08:25)
[2020-06-21] MEDS: Apixaban 5 MG TABLET G-TUBE ×2 (08:25→21:45)
[2020-06-21] MEDS: Metoprolol Tartrate 100 MG TABLET PO (08:25)
[2020-06-21] MEDS: Chlorhexidine Gluc Oral Rinse 15 ML MOUTHWASH BUCCAL ×3 (08:27→21:45)
--- NOTE | 2020-06-21 10:07 | PC.NURSE ---
HR briefly down to high 40's approximately 5 times on monitor - HR quickly comes back up to 60-70's, Afkylee - notified via tigertext - Digoxin level ordered & Lopressor 100mg BID placed on hold. BP stable 136/55. Will continue to monitor.
--- NOTE | 2020-06-21 10:38 | MHC.CLN ---
F/U PT RECEIVING PROMOTE AT MAX GOAL 75CC/HR WITH 120CC FREE WATER Q 6HRS PROVIDES 1800KCALS (23KCALS/KG BASED ON IBW), 112.5G PROTEIN (1.4G/KG), 1990CC TOTAL WATER FROM FORMULA AND FLUSHES (25CC/KG BASED ON IBW) NOTED PT WITH FEVER CONTINUES -ADJUST FREE WATER NEEDED (RECOMMEND 300CC Q SHIFT; 2410CC TOTAL WATER; 30CC/KG) MONITOR TOLERANCE, RESIDUALS AND LYTES (NOTED BUN SLOWLY INCREASING) STAGE U MEATUS-HIGH PROTEIN FORMULA IN USE (ALBUMIN 2.8 TODAY) FOLLOWING
[2020-06-21 10:58] LABS: Digoxin 1.2 ng/mL (0.8-2.0)
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
[2020-06-21] MEDS: Caspofungin Acetate 50 MG in 0.9 % Sodium Chloride 250 ML 250 MG IV (17:44)
[2020-06-21] MEDS: Metoprolol Tartrate 25 MG TABLET PO (21:44)
[2020-06-21] MEDS: cefTRIAXone sodium 1 GM in 0.9 % Sodium Chloride 50 ML IV (21:45)
[2020-06-22] VITALS (31 sets, daily range): BP systolic 118–149; BP diastolic 45–79; PULSE 74–102; RESP 21–29; TEMP 37.3–39; O2SAT 93–98
[2020-06-22] MEDS: Dextrose 5 % 1,000 ML 50 ML IVCONT (02:34)
[2020-06-22 05:56] LABS: MANUAL DIFF FLAG SCAN; SCAN SMEAR FLAG 1
[2020-06-22 05:58] LABS: Basophils Absolute Auto 0.1 X10*3/uL (0.0-0.2); Basophils Percent Auto 0.5 % (0-2); Eosinophils Absolute Auto 0.4 X10*3/uL (0.0-0.4); Eosinophils Percent Auto 3.3 % (0-4); Hematocrit 35.5 % (42-52); Hemoglobin 11.2 g/dl (14.0-18.0); Imm Gran Abs Auto 0.04 X10*3/uL (0.00-0.03); Imm Gran Pct Auto 0.4 % (0.0-0.4); Lymphocytes Absolute Auto 1.8 X10*3/uL (1.2-4.9); Lymphocytes Percent Auto 16.3 % (20-40); Mean Corpuscular HGB Conc 31.5 g/dl (31.0-36.0); Mean Corpuscular Hemoglobin 32.4 pg (27.0-33.0); Mean Corpuscular Volume 102.6 fL (80-98); Mean Platelet Volume 13.7 fL (9.4-12.4); Monocytes Percent Auto 9.1 % (2-11); Neutrophils Absolute Auto 7.7 X10*3/uL (2.0-8.3); Neutrophils Percent Auto 70.4 % (45-73); Platelet Count 321 X10*3/uL (160-400); Red Blood Count 3.46 X10*6/uL (4.60-5.80); Red Cell Distribution Width 14.7 % (11.0-16.0)
[2020-06-22 06:05] LABS: Base Excess VBG 0.3 mmol/L; HCO3 VBG 26 mmol/L; Oxygen Saturation VBG 69.3 %; PCO2 VBG 45 mmhg; PO2 VBG 37 mmhg; pH VBG 7.38 (7.32-7.43)
[2020-06-22 06:07] LABS: PLT ABN DIST 1
[2020-06-22 06:12] LABS: SLIDE REVIEW VERIFIED
[2020-06-22 06:24] LABS: Alanine Aminotransferase 35 U/L (0-40); Albumin Level 2.7 g/dL (3.5-5.0); Alkaline Phosphatase 157 U/L (39-117); Anion Gap 13 (12-20); Aspartate Amino Transferase 63 U/L (5-37); Bilirubin Total 1.1 mg/dL (0.0-1.0); Blood Urea Nitrogen 37 mg/dL (9-16); Calcium 8.1 mg/dL (8.4-10.2); Carbon Dioxide 26 mmol/L (22-29); Chloride 104 mmol/L (96-108); Estimated Glomerular Filt Rate > 60; Glucose Random 146 mg/dL (60-115); Phosphorus 4.4 mg/dL (2.7-4.5); Potassium 3.6 mmol/l (3.3-5.1); Sodium 139 mmol/L (135-145); Total Protein 6.7 g/dL (6.5-8.0)
[2020-06-22 06:41] LABS: Procalcitonin 0.25 ng/mL
[2020-06-22] MEDS: 0.9 % Sodium Chloride Flush 3 ML SYRINGE IVFLUSH ×3 (09:47→21:04)
[2020-06-22] MEDS: Metoprolol Tartrate 25 MG TABLET PO ×2 (09:48→21:03)
[2020-06-22] MEDS: Apixaban 5 MG TABLET G-TUBE ×2 (09:48→21:03)
[2020-06-22] MEDS: lisinopriL 40 MG TABLET PO (09:48)
[2020-06-22] MEDS: Chlorhexidine Gluc Oral Rinse 15 ML MOUTHWASH BUCCAL ×3 (09:48→21:03)
[2020-06-22] MEDS: Digoxin 0.25 MG TABLET G-TUBE (09:48)
[2020-06-22] MEDS: Thiamine HCL 100 MG TABLET PO (09:48)
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
[2020-06-22] MEDS: Caspofungin Acetate 50 MG in 0.9 % Sodium Chloride 250 ML 250 MG IV (18:08)
--- NOTE | 2020-06-22 19:25 | PC.NURSE ---
pt on psv setting via trach- trach care done- inner cannula changed, suctioned- frothy cream colored sputum; tolerating psv 14/6 on 28% fio2; maintaining sats and volumes; lung sounds occasionally coarse suctioning to clear and dim; tlc in rij d&i; promote at 75 mls/hr tolerating well via peg in LUQ; nazario in place- draining bill colored urine; no restraints in place; turning q2h; d5w d/c'ed today; report given to oncoming rn joanna
[2020-06-22] MEDS: cefTRIAXone sodium 1 GM in 0.9 % Sodium Chloride 50 ML IV (21:03)
[2020-06-23] VITALS (31 sets, daily range): BP systolic 114–183; BP diastolic 44–80; PULSE 75–101; RESP 15–29; TEMP 37.1–39.2; O2SAT 88–100
[2020-06-23 05:38] LABS: MANUAL DIFF FLAG SCAN; Mean Platelet Volume 13.3 fL (9.4-12.4); Red Cell Distribution Width 14.6 % (11.0-16.0); SCAN SMEAR FLAG 1
[2020-06-23 05:40] LABS: Basophils Absolute Auto 0.1 X10*3/uL (0.0-0.2); Basophils Percent Auto 0.6 % (0-2); Eosinophils Absolute Auto 0.3 X10*3/uL (0.0-0.4); Eosinophils Percent Auto 2.7 % (0-4); Hematocrit 35.5 % (42-52); Hemoglobin 11.2 g/dl (14.0-18.0); Imm Gran Abs Auto 0.05 X10*3/uL (0.00-0.03); Imm Gran Pct Auto 0.5 % (0.0-0.4); Lymphocytes Absolute Auto 2.1 X10*3/uL (1.2-4.9); Lymphocytes Percent Auto 19.5 % (20-40); Mean Corpuscular HGB Conc 31.5 g/dl (31.0-36.0); Mean Corpuscular Hemoglobin 32.4 pg (27.0-33.0); Mean Corpuscular Volume 102.6 fL (80-98); Monocytes Absolute Auto 1.1 X10*3/uL (0.1-1.2); Monocytes Percent Auto 9.8 % (2-11); Neutrophils Absolute Auto 7.2 X10*3/uL (2.0-8.3); Neutrophils Percent Auto 66.9 % (45-73); Platelet Count 343 X10*3/uL (160-400); Red Blood Count 3.46 X10*6/uL (4.60-5.80); White Blood Count 10.7 X10*3/uL (4.8-10.8); pH VBG 7.39 (7.32-7.43)
[2020-06-23 05:41] LABS: Base Excess VBG 0.5 mmol/L; HCO3 VBG 26 mmol/L; Oxygen Saturation VBG 71.9 %; PCO2 VBG 44 mmhg; PO2 VBG 39 mmhg
[2020-06-23 05:42] LABS: PLT ABN DIST 1
[2020-06-23 05:58] LABS: Anion Gap 15 (12-20); Blood Urea Nitrogen 33 mg/dL (9-16); Calcium 8.6 mg/dL (8.4-10.2); Carbon Dioxide 24 mmol/L (22-29); Chloride 105 mmol/L (96-108); Creatinine Clr Calc Pharmacy 136.3; Estimated Glomerular Filt Rate > 60; Glucose Random 151 mg/dL (60-115); Magnesium 2.1 mg/dL (1.6-2.6); Sodium 140 mmol/L (135-145)
[2020-06-23 08:30] LABS: SLIDE REVIEW VERIFIED
--- NOTE | 2020-06-23 11:20 | MHC.CM.PN ---
Remains on ventilator. Trach and PRG. Per MD rounds, pt responding to noxious stimuli and is tracking. However, temps remain. 102.2-100.8. Will re-culture sputum. No sedation in over a week. D/C plan remains LTAC at this time. [facility] following.
[2020-06-23] MEDS: Thiamine HCL 100 MG TABLET PO (11:25)
[2020-06-23] MEDS: Metoprolol Tartrate 25 MG TABLET PO ×2 (11:25→21:20)
[2020-06-23] MEDS: 0.9 % Sodium Chloride Flush 3 ML SYRINGE IVFLUSH ×2 (11:25→17:30)
[2020-06-23] MEDS: lisinopriL 40 MG TABLET PO (11:26)
[2020-06-23] MEDS: Chlorhexidine Gluc Oral Rinse 15 ML MOUTHWASH BUCCAL ×3 (11:26→21:20)
[2020-06-23] MEDS: Digoxin 0.25 MG TABLET G-TUBE (11:26)
[2020-06-23] MEDS: Apixaban 5 MG TABLET G-TUBE ×2 (11:26→21:20)
--- NOTE | 2020-06-23 11:31 | MHC.CLN ---
F/U PT RECEIVING PROMOTE AT MAX GOAL 75CC/HR WITH 240CC FREE WATER Q 6HRS PROVIDES 1800KCALS (23KCALS/KG BASED ON IBW), 112.5G PROTEIN (1.4G/KG), 2950CC TOTAL WATER FROM FORMULA AND FLUSHES (36CC/KG BASED ON IBW) NOTED PT WITH FEVER CONTINUES -ADJUST FREE WATER NEEDED MONITOR TOLERANCE, RESIDUALS AND LYTES STAGE U MEATUS-HIGH PROTEIN FORMULA IN USE FOLLOWING
--- NOTE | 2020-06-23 11:37 | MHC.CM.PN ---
Spoke with brother, Ortiz ([phone]) regarding need for PSI form to send to [facility]. Stressed importance of him returning form to us. 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 Also updated brother at his request regarding pt condition.
[2020-06-23 12:07] LABS: Erythrocyte Sedimentation Rate 94 MM/HR (0-15)
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
[2020-06-23 13:32] LABS: CDIFF Ag Negative (Negative); CDIFF Internal ctrl Dots and bkg OK (V); CDiff Toxin Negative (Negative)
--- NOTE | 2020-06-23 16:26 | PM.IDPN ---
Subjective Subjective Date of Service: 06/23/20 Interval History: he has no complaints Objective Data Labs CBC & Chem 7: 06/23/20 05:06 06/23/20 05:06 Labs: Laboratory Results - last 24 hr 06/23/20 06/23/20 06/23/20 05:06 05:06 05:06 WBC 10.7 RBC 3.46 L Hgb 11.2 L Hct 35.5 L MCV 102.6 H MCH 32.4 MCHC 31.5 RDW 14.6 Plt Count 343 MPV 13.3 H Immature Gran % (Auto) 0.5 H Neut % (Auto) 66.9 Lymph % (Auto) 19.5 L [place] % (Auto) 9.8 Eos % (Auto) 2.7 Baso % (Auto) 0.6 Lymph # (Auto) 2.1 [place] # (Auto) 1.1 Eos # (Auto) 0.3 Baso # (Auto) 0.1 Abs Immat Gran (auto) 0.05 H Absolute Neuts (auto) 7.2 Absolute Nucleated RBC 0.000 Nucleated RBC % (auto) 0.0 Smear Tech's Comments VERIFIED ESR VBG pH 7.39 VBG pCO2 44 VBG pO2 39 VBG HCO3 26 VBG O2 Saturation 71.9 VBG Base Excess 0.5 Sodium 140 Potassium 4.0 Chloride 105 Carbon Dioxide 24 Anion Gap 15 BUN 33 H Creatinine 0.82 Estim Creat Clear Calc 136.3 Estimated GFR > 60 Random Glucose 151 H Calcium 8.6 D Magnesium 2.1 C. difficile Toxin A&B C. difficile Antigen C. difficile Interpret 06/23/20 06/23/20 11:20 12:52 WBC RBC Hgb Hct MCV MCH MCHC RDW Plt Count MPV Immature Gran % (Auto) Neut % (Auto) Lymph % (Auto) [place] % (Auto) Eos % (Auto) Baso % (Auto) Lymph # (Auto) [place] # (Auto) Eos # (Auto) Baso # (Auto) Abs Immat Gran (auto) Absolute Neuts (auto) Absolute Nucleated RBC Nucleated RBC % (auto) Smear Tech's Comments ESR 94 H VBG pH VBG pCO2 VBG pO2 VBG HCO3 VBG O2 Saturation VBG Base Excess Sodium Potassium Chloride Carbon Dioxide Anion Gap BUN Creatinine Estim Creat Clear Calc Estimated GFR Random Glucose Calcium Magnesium C. difficile Toxin A&B Negative C. difficile Antigen Negative C. difficile Interpret SEE NOTE Microbiology Microbiology Results: Microbiology 06/23/20 Unknown Sputum - Induced Gram Stain - Final 06/16/20 18:53 Bronch Lll - Bronchial Fungal Identification - Preliminary No growth to date. 06/20/20 17:59 Blood - Venous Blood Culture - Preliminary No growth after 48 hours. 06/20/20 17:52 Blood - Venous Blood Culture - Preliminary No growth after 48 hours. 06/17/20 06:12 Blood - Venous Blood Culture - Final No growth after 5 days. 06/17/20 06:08 Blood - Venous Blood Culture - Final No growth after 5 days. 06/16/20 18:53 Bronch Lll - Bronchial Gram Stain - Final 06/16/20 18:53 Bronch Lll - Bronchial Routine Culture - Final Escherichia coli 06/18/20 10:08 Sputum - Suctioned Gram Stain - Final 06/18/20 10:08 Sputum - Suctioned Sputum Culture - Final Escherichia coli 06/09/20 13:11 Stool Stool Culture - Final 06/05/20 03:40 Blood - Venous Blood Culture - Final No growth after 5 days. 06/05/20 03:36 Blood - Venous Blood Culture - Final No growth after 5 days. 06/04/20 11:45 Blood - Venous Blood Culture - Final No growth after 5 days. 06/04/20 11:45 Blood - Venous Blood Culture - Final No growth after 5 days. 06/05/20 03:31 Sputum - Suctioned Gram Stain - Final 06/05/20 03:31 Sputum - Suctioned Sputum Culture - Final 06/04/20 11:35 Urine Catheterized - Powers Catheter Urine Culture - Final No growth. Physical Exam Vital Signs: Vital Signs: Last Vital Signs Temp 102.6 F H 06/23/20 16:00 Pulse 83 06/23/20 16:00 Resp 18 06/23/20 16:00 BP 160/69 H 06/23/20 16:00 Pulse Ox 98 06/23/20 16:00 Body Mass Index 39.4 HENMT: Head: Yes normal to inspection Eyes: General: appearance normal, both eyes and all related structures Resp: Effort & Inspection: normal respiratory effort Cardio: Rate: regular rate Rhythm: regular rhythm GI: Palpation (GI): nontender Neuro: Other: weakness RUE Assessment and Plan Assessment and plan (1) Fever of unknown origin: Problem details: Patient has ICU stay and recently had trach and peg Multiple causes fever in ICU pertinent to this patient include mucus plugging,some bleeding after procedures which doesnt seem to be evident now and mild to moderate probable alcoholic hepatitis Less likely is fungemia (up to 30% cases not detected in some studies on blood culture) Less likely is HIV or Hepatitis C,negative HIV He is COVID negative There is no thrombosis mentioned and all lines and skin appear unremarkable with no breakdown Fever still present Status: Acute Assessment and Plan: Stop Merem and Vancomycin May be drug fever Time Spent With Patient Time: Total time spent is greater than 50% in coordination of care (as documented) at patient's floor/unit and/or counseling patient: Time with patient: 15 - 24 minutes
[2020-06-23] MEDS: Caspofungin Acetate 50 MG in 0.9 % Sodium Chloride 250 ML 250 MG IV (17:30)
--- NOTE | 2020-06-23 19:39 | PC.NURSE ---
shift update; pt tolerating psv settings; pt more awake this shift; opening eyes to name called; tracking movement and attempting to mouth words; pt very tense with movement of extremities and position change- behavior then appears more relaxed when settled into position and rests quietly; orienting patient to place, time and situation, tv put on for patient; discuss to wean psv with dr torrez- no further orders; pt with temps daily; cdiff sent- negative, urine cx sent and sputum sent; temp this evening 102.6- ? if need for covid swab or resp panel- discuss with dr torrez- no further orders; tolerating tube feeds well at 75 mls/hr, liquid stools, bathed full bath today, and turned and repositioned q2h; on air loss bed; barrier cream applied; sr on monitor; vss; report given to oncoming esvin marshall
[2020-06-24] VITALS (35 sets, daily range): BP systolic 116–174; BP diastolic 62–112; PULSE 70–108; RESP 14–31; TEMP 37–39.6; O2SAT 88–100; BMI 31.1
[2020-06-24 05:31] LABS: Base Excess VBG 1.8 mmol/L; HCO3 VBG 26 mmol/L; Oxygen Saturation VBG 79.4 %; PCO2 VBG 40 mmhg; PO2 VBG 41 mmhg; pH VBG 7.43 (7.32-7.43)
[2020-06-24 05:44] LABS: Albumin Level 2.7 g/dL (3.5-5.0); Anion Gap 15 (12-20); Blood Urea Nitrogen 30 mg/dL (9-16); Calcium 8.5 mg/dL (8.4-10.2); Carbon Dioxide 24 mmol/L (22-29); Chloride 105 mmol/L (96-108); Creatinine Clr Calc Pharmacy 127.1; Estimated Glomerular Filt Rate > 60; Glucose Random 155 mg/dL (60-115); Phosphorus 3.5 mg/dL (2.7-4.5); Sodium 140 mmol/L (135-145)
[2020-06-24 05:47] LABS: B Type Natriuretic Peptide 1574 pg/mL (<100)
[2020-06-24] MEDS: Metoprolol Tartrate 25 MG TABLET PO ×2 (08:40→22:00)
[2020-06-24] MEDS: Digoxin 0.25 MG TABLET G-TUBE (08:40)
[2020-06-24] MEDS: lisinopriL 40 MG TABLET PO (08:40)
[2020-06-24] MEDS: Thiamine HCL 100 MG TABLET PO (08:41)
[2020-06-24] MEDS: Apixaban 5 MG TABLET G-TUBE ×2 (08:41→22:00)
[2020-06-24] MEDS: 0.9 % Sodium Chloride Flush 3 ML SYRINGE IVFLUSH ×2 (08:41→17:58)
--- NOTE | 2020-06-24 09:44 | P.PNCA_ITS ---
Subjective Subjective Date of Service: 06/24/20 Principal diagnosis: alcohol withdrawal, atrial fibrillation Interval history: Requested to see for TERRI. Patient himself unable to give any history. Review of Systems Review of Systems Yes Unobtainable due to mental status Reports confusion Psychiatric: Reports confusion Physical Exam Vital Signs: Last Vital Signs Temp 98.8 F 06/24/20 08:00 Pulse 90 06/24/20 08:57 Resp 22 H 06/24/20 08:57 BP 164/62 H 06/24/20 08:57 Pulse Ox 97 06/24/20 08:57 Body Mass Index 31.1 Const General: comfortable, no acute distress and confusion Orientation/consciousness: confusion HENMT Other: Unremarkable Neck Neck: Yes normal visual inspection Chest Chest palpation & inspection: normal inspection of the chest Resp Auscultation: no crackles, no wheezes and diminished lung sounds Cardio Jugular venous distension: no JVD Palpation: normal PMI Heart sounds: S1 normal heart sound present, S2 normal heart sound present, no gallops, no murmurs and no rubs GI Palpation (GI): Soft to palpation Back/Spine/Pelvis Other: unremarkable Skin General skin exam: no rashes or lesions noted Neuro General: confusion Psych Mental Status: mental status grossly normal Results Labs and Meds Result diagrams: 06/23/20 05:06 06/24/20 04:51 Lab results: Laboratory Results - last 24 hr 06/23/20 06/23/20 06/24/20 11:20 12:52 04:51 ESR 94 H VBG pH VBG pCO2 VBG pO2 VBG HCO3 VBG O2 Saturation VBG Base Excess Sodium 140 Potassium 4.0 Chloride 105 Carbon Dioxide 24 Anion Gap 15 BUN 30 H Creatinine 0.78 Estim Creat Clear Calc 127.1 Estimated GFR > 60 Random Glucose 155 H Calcium 8.5 Phosphorus 3.5 B-Natriuretic Peptide Albumin 2.7 L C. difficile Toxin A&B Negative C. difficile Antigen Negative C. difficile Interpret SEE NOTE 06/24/20 06/24/20 04:51 04:51 ESR VBG pH 7.43 VBG pCO2 40 VBG pO2 41 VBG HCO3 26 VBG O2 Saturation 79.4 VBG Base Excess 1.8 Sodium Potassium Chloride Carbon Dioxide Anion Gap BUN Creatinine Estim Creat Clear Calc Estimated GFR Random Glucose Calcium Phosphorus B-Natriuretic Peptide 1574 H Albumin C. difficile Toxin A&B C. difficile Antigen C. difficile Interpret Progress Note: A&P Assessment and plan (1) Fever of unknown origin: Status: Acute (2) Encephalopathy: Status: Acute Assessment and Plan: If no other obvious etiology noted for fever, then could consider TERRI for further evaluation. Tentatively for tomorrow morning. Fall Risk Details Current Medications: Current Medications Generic Name Dose Route Start Last Admin Trade Name Freq PRN Reason Stop Dose Admin Acetaminophen 975 mg 06/18/20 20:24 06/20/20 20:52 Acetaminophen 325 Mg Tablet G-TUBE 975 mg Q8H PRN Administration fever Apixaban 5 mg 06/18/20 14:30 06/24/20 08:41 Apixaban 5 Mg Tablet G-TUBE 5 mg BID JESSICA Administration Chlorhexidine Gluconate 15 ml 06/05/20 02:00 06/24/20 08:41 Chlorhexidine Gluc Oral Rinse 15 Ml Mouthwash BUCCAL Not Given TID JESSICA Digoxin 0.25 mg 06/21/20 09:00 06/24/20 08:40 Digoxin 0.25 Mg Tablet G-TUBE 0.25 mg DAILY JESSICA Administration Lisinopril 40 mg 06/13/20 09:00 06/24/20 08:40 Lisinopril 40 Mg Tablet PO 40 mg DAILY JESSICA Administration Protocol Metoprolol Tartrate 25 mg 06/21/20 21:00 06/24/20 08:40 Metoprolol Tartrate 25 Mg Tablet PO 25 mg BID JESSICA Administration Protocol Omeprazole 40 mg 06/13/20 09:15 06/24/20 05:30 Omeprazole 20 Mg/10 Ml Susp.Recon PO 40 mg DAILY@0630 JESSICA Administration Sodium Chloride 3 ml 05/30/20 08:00 06/24/20 08:41 0.9 % Sodium Chloride Flush 3 Ml Syringe IVFLUSH 3 ml QSHIFT JESSICA Administration Thiamine HCl 100 mg 06/10/20 09:00 06/24/20 08:41 Thiamine Hcl 100 Mg Tablet PO 100 mg DAILY JESSICA Administration Time Spent With Patient Time: Total time spent is greater than 50% in coordination of care (as documente d) at patient's floor/unit and/or counseling patient: Time with patient: less than 15 minutes
--- NOTE | 2020-06-24 10:38 | MHC.CM.PN ---
Per MD rounds, will try to wean from vent today. Temp 98.8 today. Still not following commands. Spoke to Dr. Pfeiffer about brother and HCP, Ortiz , visiting today. Both and RN in agreement. Permission granted by [employer] product manager medical device, for brother to visit. Called Ortiz. He will visit at 12:30 today and will bring in his signed PSI. Instructed to come into main entrance. Proceed through screening and left them know he has permission to visit by Certified Addiction Counselor. Will bring PSI. [place] text to Vandana Brady RN about visit and to call CM when he arrives.
[2020-06-24] MEDS: Furosemide 20 MG TABLET PO (12:08)
[2020-06-24] MEDS: Spironolactone 25 MG TABLET PO (12:09)
--- NOTE | 2020-06-24 13:43 | PM.CCPN ---
Subjective Subjective Date of Service: 06/24/20 Interval History: 60-year-old male type 2 diabetic with morbid obesity chronic continuous alcoholism who came in for the withdrawal program on phenobarb and developed uremia with several days of persistent uremic metabolic acidosis as well as as well as marked fluid overload in cardiac arrest with a 15 minutes CPR including emergent intubation and and the acute it stage 5 renal failure has reversed at the several dialysis treatments he did have a mild congestive cardiomyopathy with mild reduction of systolic reserve and before paroxysmal now persistent atrial fibrillation but controlled on metoprolol and digoxin and all system seem to have recovered including the bilateral what appears to be an aspiration pneumonitis all resolved but had some persistent low-grade temperatures with a sed rate of 94 questionable drug fever and TERRI is pending but in addition the encephalopathy still persists although he is currently awake with mom with some cognitive repair but far from baseline Physical Exam Vital Signs: Vital Signs: Last Vital Signs Temp 99.3 F 06/24/20 12:00 Pulse 98 06/24/20 13:00 Resp 15 06/24/20 13:00 BP 174/74 H 06/24/20 13:00 Pulse Ox 93 06/24/20 13:00 Body Mass Index 31.1 Const: Other: Still very limited cognitive capability but he does 0 awaken Neurologic otherwise nonfocal including cranial nerves Cardiac exam with chronic and controlled AFib rate 85 oxygen saturation 98% on minimal pressure support through the tracheostomy blood pressure 168/70 and with positive intake and output despite corrected renal function I am starting him on oral maintenance diuretics see if it helps his pressure Chest is clear with no adventitious sounds and and chest x-ray is clear Abdomen tolerating fluids and soft with good bowel sounds nontender no organomegaly Skin intact Objective Data Labs CBC & Chem 7: 06/23/20 05:06 06/24/20 04:51 Labs: Laboratory Results - last 24 hr 06/24/20 06/24/20 06/24/20 04:51 04:51 04:51 VBG pH 7.43 VBG pCO2 40 VBG pO2 41 VBG HCO3 26 VBG O2 Saturation 79.4 VBG Base Excess 1.8 Sodium 140 Potassium 4.0 Chloride 105 Carbon Dioxide 24 Anion Gap 15 BUN 30 H Creatinine 0.78 Estim Creat Clear Calc 127.1 Estimated GFR > 60 Random Glucose 155 H Calcium 8.5 Phosphorus 3.5 B-Natriuretic Peptide 1574 H Albumin 2.7 L Microbiology Microbiology Results: Microbiology 06/23/20 Unknown Sputum - Induced Gram Stain - Final 06/23/20 Unknown Sputum - Induced Sputum Culture - Preliminary Normal so far. 06/23/20 12:52 Urine Powers Port Urine Culture - Final No growth. 06/16/20 18:53 Bronch Lll - Bronchial Fungal Identification - Preliminary No growth to date. 06/20/20 17:59 Blood - Venous Blood Culture - Preliminary No growth after 48 hours. 06/20/20 17:52 Blood - Venous Blood Culture - Preliminary No growth after 48 hours. 06/17/20 06:12 Blood - Venous Blood Culture - Final No growth after 5 days. 06/17/20 06:08 Blood - Venous Blood Culture - Final No growth after 5 days. 06/16/20 18:53 Bronch Lll - Bronchial Gram Stain - Final 06/16/20 18:53 Bronch Lll - Bronchial Routine Culture - Final Escherichia coli 06/18/20 10:08 Sputum - Suctioned Gram Stain - Final 06/18/20 10:08 Sputum - Suctioned Sputum Culture - Final Escherichia coli 06/09/20 13:11 Stool Stool Culture - Final 06/05/20 03:40 Blood - Venous Blood Culture - Final No growth after 5 days. 06/05/20 03:36 Blood - Venous Blood Culture - Final No growth after 5 days. 06/04/20 11:45 Blood - Venous Blood Culture - Final No growth after 5 days. 06/04/20 11:45 Blood - Venous Blood Culture - Final No growth after 5 days. 06/05/20 03:31 Sputum - Suctioned Gram Stain - Final 06/05/20 03:31 Sputum - Suctioned Sputum Culture - Final 06/04/20 11:35 Urine Catheterized - Powers Catheter Urine Culture - Final No growth. Progress Note: A&P Assessment and plan (1) Fever of unknown origin: Status: Acute (2) Acute and chronic respiratory failure with hypoxia: Status: Acute (3) Dermatitis, unspecified: Problem details: Coccygeal skin breakdown with moisture harboring Status: Acute (4) Diastolic CHF, acute on chronic: Status: Acute (5) Pleural effusion: Status: Acute (6) Rib fractures: Status: Acute (7) Community acquired pneumonia, bilateral: Status: Acute (8) Cardiac arrest with successful resuscitation: Status: Acute (9) Acute kidney failure: Problem details: Due to ATN Renal fx is improving No indication for HD today Watch UO and labs Status: Acute (10) Obesity hypoventilation syndrome: Status: Acute (11) CHF (congestive heart failure): Status: Acute (12) Encephalopathy: Status: Acute (13) Restrictive lung disease secondary to obesity: Problem details: on CPAP and duonebs at home Status: Acute (14) Persistent atrial fibrillation: Status: Acute (15) Left atrial enlargement: Status: Acute (16) HTN (hypertension): Status: Acute (17) Alcohol dependency: Status: Acute (18) Sleep apnea: Status: Acute (19) Alcohol withdrawal syndrome: Status: Acute (20) Seroma due to trauma: Status: Acute (21) Abscess: Status: Acute (22) Difficulty breathing: Status: Acute Assessment and Plan: Fever peaked only 99 and change today and the only thing we had done was culture him and withdraw the ceftriaxone so this may in retrospect be a drug fever but he will have a transesophageal echo and because of the positive intake and output and hypertension with history of diminished systolic and diastolic reserve adding oral diuretic therapy including anti aldosterone Time Spent With Patient Time: Total time spent is greater than 50% in coordination of care (as documented) at patient's floor/unit and/or counseling patient: Total time spent with greater than 50% in coordination of care (as documented) at patient's floor/unit and/or counseling patient:: 35
--- NOTE | 2020-06-24 21:39 | P.PNID_ITS ---
Subjective Subjective Date of Service: 07/06/20 Interval History: he has no specific changes one temperature to 101 Objective Data Labs CBC & Chem 7: 07/02/20 05:52 07/06/20 05:21 Labs: Laboratory Results - last 24 hr 06/24/20 06/24/20 06/24/20 04:51 04:51 04:51 VBG pH 7.43 VBG pCO2 40 VBG pO2 41 VBG HCO3 26 VBG O2 Saturation 79.4 VBG Base Excess 1.8 Sodium 140 Potassium 4.0 Chloride 105 Carbon Dioxide 24 Anion Gap 15 BUN 30 H Creatinine 0.78 Estim Creat Clear Calc 127.1 Estimated GFR > 60 Random Glucose 155 H Calcium 8.5 Phosphorus 3.5 B-Natriuretic Peptide 1574 H Albumin 2.7 L Microbiology Microbiology Results: Microbiology 06/23/20 Unknown Sputum - Induced Gram Stain - Final 06/23/20 Unknown Sputum - Induced Sputum Culture - Preliminary Normal so far. 06/23/20 12:52 Urine Powers Port Urine Culture - Final No growth. 06/16/20 18:53 Bronch Lll - Bronchial Fungal Identification - Preliminary No growth to date. 06/20/20 17:59 Blood - Venous Blood Culture - Preliminary No growth after 48 hours. 06/20/20 17:52 Blood - Venous Blood Culture - Preliminary No growth after 48 hours. 06/17/20 06:12 Blood - Venous Blood Culture - Final No growth after 5 days. 06/17/20 06:08 Blood - Venous Blood Culture - Final No growth after 5 days. 06/16/20 18:53 Bronch Lll - Bronchial Gram Stain - Final 06/16/20 18:53 Bronch Lll - Bronchial Routine Culture - Final Escherichia coli 06/18/20 10:08 Sputum - Suctioned Gram Stain - Final 06/18/20 10:08 Sputum - Suctioned Sputum Culture - Final Escherichia coli 06/09/20 13:11 Stool Stool Culture - Final 06/05/20 03:40 Blood - Venous Blood Culture - Final No growth after 5 days. 06/05/20 03:36 Blood - Venous Blood Culture - Final No growth after 5 days. 06/04/20 11:45 Blood - Venous Blood Culture - Final No growth after 5 days. 06/04/20 11:45 Blood - Venous Blood Culture - Final No growth after 5 days. 06/05/20 03:31 Sputum - Suctioned Gram Stain - Final 06/05/20 03:31 Sputum - Suctioned Sputum Culture - Final 06/04/20 11:35 Urine Catheterized - Powers Catheter Urine Culture - Final No growth. Physical Exam Vital Signs: Vital Signs: Last Vital Signs Temp 98.6 F 06/24/20 19:00 Pulse 102 H 06/24/20 21:00 Resp 24 H 06/24/20 21:00 BP 137/80 06/24/20 21:00 Pulse Ox 95 06/24/20 21:00 Body Mass Index 31.1 Const: General: lethargic Orientation/consciousness: lethargic HENMT: Head: Yes normal to inspection Resp: Effort & Inspection: normal respiratory effort Auscultation: dimin ished lung sounds Cardio: Rate: regular rate Rhythm: regular rhythm GI: Palpation (GI): Tenderness to palpation present (GI) Auscultation: bowels sounds not normal Assessment and Plan Assessment and plan (1) Fever of unknown origin: Status: Acute Assessment and Plan: Would continue evaluation Continue holding antibiotics Time Spent With Patient Time: Total time spent is greater than 50% in coordination of care (as documented) at patient's floor/unit and/or counseling patient: Time with patient: 15 - 24 minutes
[2020-06-24] MEDS: Chlorhexidine Gluc Oral Rinse 15 ML MOUTHWASH BUCCAL (22:00)
[2020-06-25] VITALS (28 sets, daily range): BP systolic 103–175; BP diastolic 36–110; PULSE 83–106; RESP 11–28; TEMP 37.4–38.3; O2SAT 93–100
--- NOTE | 2020-06-25 | XR_ITS ---
EXAMINATION: XR CHEST CLINICAL INFORMATION: Febrile COMPARISON: 06/20/2020 TECHNIQUE: Frontal view of the chest was obtained. FINDINGS: Tracheostomy tube in place. Right internal jugular central venous catheter terminates near the cavoatrial junction. Cardiac leads overlie the chest. The lungs are well expanded. Improvement of the prior left pleural effusion and airspace opacity. No consolidation. No edema. No pneumothorax. The cardiomediastinal silhouette is normal in size with a calcified aorta. XR/XR chest 1V IMPRESSION: Improvement of the prior left basilar opacity and pleural effusion. No acute pulmonary finding.
--- NOTE | 2020-06-25 | CT_ITS ---
EXAMINATION: CT ABDOMEN AND PELVIS WITHOUT CONTRAST CLINICAL INFORMATION: Elevated LFTs. COMPARISON: CT scan of the abdomen and pelvis dated 06/05/2020. TECHNIQUE: Multidetector volumetric imaging was performed from the superior aspect of the liver through the pubic symphysis. Sagittal and coronal reformatted images were obtained on the technologist's workstation. Lack of intravenous and oral contrast limits visceral evaluation. This CT examination was performed using dose optimization techniques as appropriate, variously including the following: *Automated exposure control *Adjustment of mA and/or kV according to patient size (this includes techniques or standardized protocols for targeted exams where dose is matched to indication/reason for exam; i.e. extremities or head) *Use of iterative reconstruction technique DLP: 1069.00 mGy-cm FINDINGS: LUNG BASES: There is a small left pleural effusion. Mild bibasilar atelectasis/scarring is seen, left greater than right. No pericardial effusion. LIVER, GALLBLADDER, AND BILIARY TREE: Cirrhotic liver without focal abnormality. Incompletely distended gallbladder without surrounding abnormality. PANCREAS: Unremarkable. SPLEEN: 14.4 cm without focal abnormality or significant change. ADRENAL GLANDS: Unremarkable. KIDNEYS AND URETERS: Unremarkable. BLADDER: Decompressed containing a Powers catheter. GASTROINTESTINAL TRACT: Interval removal of Dobbhoff tube. The stomach, small bowel, appendix and large bowel are unremarkable. A rectal tube is noted in place without overt abnormality. PERITONEUM: No significant peritoneal ascites. ABDOMINAL WALL: Very small fat-containing umbilical hernia without abnormality. Decrease anasarca. LYMPH NODES: Mildly prominent myra hepatis and retroperitoneal lymph nodes without significant change. VASCULAR: Moderate to severe atherosclerosis without significant ectasia. PELVIC VISCERA: Unremarkable. OSSEOUS STRUCTURES: Mild to moderate multilevel degenerative changes in the thoracolumbar spine without suspicious abnormality. CT/CT abdomen pelvis wo con IMPRESSION: 1. Small left pleural effusion and mild bibasilar atelectasis represents significant interval improvement from the previous study. 2. Near complete resolution of peritoneal ascites. Significantly decreased anasarca. 3. Hepatic cirrhosis and borderline splenomegaly without significant change.
[2020-06-25] MEDS: Acetaminophen 325 MG TABLET 975 MG G-TUBE (00:04)
--- NOTE | 2020-06-25 00:28 | PM.CCN ---
Critical Care Event Note Summary Narrative: This case had a high probability of a clinically significant, sudden, or life threatening deterioration of this patient's condition which required my full and direct attention, intervention and personal management. Patient spiked a fever of 103.1. Patient was fully cultured 48 hours ago, sputum culture is still pending but normal so far. Blood cultures were negative urine culture was negative. Id was consulted and patient was deemed drug fever and antibiotics were stopped yesterday afternoon. For this reason, will not give patient the sepsis protocol antibiotics or fluids. I will however get a chest x-ray and do some basic labs along with repeat blood cultures as the ones previously drawn were drawn over 4 days ago.
[2020-06-25 01:06] LABS: Imm Gran Pct Auto 0.5 % (0.0-0.4); MANUAL DIFF FLAG SCAN; Mean Corpuscular HGB Conc 32.2 g/dl (31.0-36.0); Mean Corpuscular Volume 101.5 fL (80-98); Red Cell Distribution Width 14.7 % (11.0-16.0); SCAN SMEAR FLAG 1
[2020-06-25 01:08] LABS: Basophils Absolute Auto 0.1 X10*3/uL (0.0-0.2); Basophils Percent Auto 0.4 % (0-2); Eosinophils Absolute Auto 0.2 X10*3/uL (0.0-0.4); Eosinophils Percent Auto 1.4 % (0-4); Hematocrit 34.5 % (42-52); Hemoglobin 11.1 g/dl (14.0-18.0); Imm Gran Abs Auto 0.06 X10*3/uL (0.00-0.03); Lymphocytes Absolute Auto 2.2 X10*3/uL (1.2-4.9); Lymphocytes Percent Auto 16.8 % (20-40); Mean Corpuscular Hemoglobin 32.6 pg (27.0-33.0); Mean Platelet Volume 13.1 fL (9.4-12.4); Monocytes Absolute Auto 1.3 X10*3/uL (0.1-1.2); Monocytes Percent Auto 10.3 % (2-11); Neutrophils Absolute Auto 9.2 X10*3/uL (2.0-8.3); Neutrophils Percent Auto 70.6 % (45-73); Platelet Count 435 X10*3/uL (160-400)
[2020-06-25 01:24] LABS: PLT ABN DIST 1
[2020-06-25 01:30] LABS: Lactate Dehydrogenase 249 U/L (118-273); Lactic Acid 1.3 mmol/L (0.5-2.0)
[2020-06-25 01:37] LABS: Alanine Aminotransferase 61 U/L (0-40); Albumin Level 2.8 g/dL (3.5-5.0); Alkaline Phosphatase 242 U/L (39-117); Anion Gap 15 (12-20); Aspartate Amino Transferase 129 U/L (5-37); Bilirubin Direct 1.3 mg/dL (0.0-0.5); Bilirubin Total 1.5 mg/dL (0.0-1.0); Blood Urea Nitrogen 29 mg/dL (9-16); C Reactive Protein 16.38 mg/dL (< or = 0.50); Calcium 8.9 mg/dL (8.4-10.2); Carbon Dioxide 24 mmol/L (22-29); Chloride 104 mmol/L (96-108); Creatinine Clr Calc Pharmacy 130.5; Estimated Glomerular Filt Rate > 60; Glucose Random 147 mg/dL (60-115); Potassium 4.1 mmol/l (3.3-5.1); Sodium 139 mmol/L (135-145); Total Protein 6.9 g/dL (6.5-8.0)
[2020-06-25 01:52] LABS: SLIDE REVIEW VERIFIED
[2020-06-25 02:57] LABS: COVID-19 Test Negative (Negative); IDNOW Serial# 9DD0AD1C
[2020-06-25 04:00] LABS: Procalcitonin 0.18 ng/mL
[2020-06-25] MEDS: 0.9 % Sodium Chloride Flush 3 ML SYRINGE IVFLUSH ×4 (05:20→23:10)
[2020-06-25 06:18] LABS: Basophils Absolute Auto 0.1 X10*3/uL (0.0-0.2); MANUAL DIFF FLAG SCAN; Mean Platelet Volume 13.7 fL (9.4-12.4); Red Cell Distribution Width 14.6 % (11.0-16.0); SCAN SMEAR FLAG 1
[2020-06-25 06:20] LABS: Basophils Percent Auto 0.4 % (0-2); Eosinophils Absolute Auto 0.1 X10*3/uL (0.0-0.4); Hematocrit 35.3 % (42-52); Hemoglobin 11.1 g/dl (14.0-18.0); Imm Gran Pct Auto 0.7 % (0.0-0.4); Lymphocytes Absolute Auto 2.2 X10*3/uL (1.2-4.9); Lymphocytes Percent Auto 16.3 % (20-40); Mean Corpuscular HGB Conc 31.4 g/dl (31.0-36.0); Mean Corpuscular Hemoglobin 32.1 pg (27.0-33.0); Monocytes Absolute Auto 1.3 X10*3/uL (0.1-1.2); Monocytes Percent Auto 9.5 % (2-11); Neutrophils Absolute Auto 9.7 X10*3/uL (2.0-8.3); Neutrophils Percent Auto 72.1 % (45-73); Platelet Count 426 X10*3/uL (160-400); Red Blood Count 3.46 X10*6/uL (4.60-5.80); White Blood Count 13.5 X10*3/uL (4.8-10.8)
[2020-06-25 06:22] LABS: INTERNATIONAL NORM RATIO 1.7 (0.9-1.1); Prothrombin Time 19.8 SEC (10.8-13.0)
[2020-06-25 06:22] LABS: PLT ABN DIST 1
[2020-06-25 06:25] LABS: Partial Thromboplastin Time 35.9 SEC (24.1-38.0)
[2020-06-25 06:33] LABS: Base Excess VBG 3.7 mmol/L; HCO3 VBG 30 mmol/L; PCO2 VBG 51 mmhg; PO2 VBG 44 mmhg; pH VBG 7.38 (7.32-7.43)
[2020-06-25 06:34] LABS: Oxygen Saturation VBG 78.4 %
[2020-06-25 06:39] LABS: Albumin Level 2.8 g/dL (3.5-5.0); Anion Gap 14 (12-20); Blood Urea Nitrogen 28 mg/dL (9-16); Calcium 9.1 mg/dL (8.4-10.2); Carbon Dioxide 27 mmol/L (22-29); Chloride 104 mmol/L (96-108); Estimated Glomerular Filt Rate > 60; Glucose Random 142 mg/dL (60-115); Phosphorus 4.1 mg/dL (2.7-4.5); Sodium 141 mmol/L (135-145)
[2020-06-25 06:57] LABS: B Type Natriuretic Peptide 1813 pg/mL (<100)
[2020-06-25] MEDS: Furosemide 20 MG TABLET PO (07:57)
[2020-06-25] MEDS: Thiamine HCL 100 MG TABLET PO (07:57)
[2020-06-25] MEDS: Spironolactone 25 MG TABLET PO (07:57)
--- NOTE | 2020-06-25 07:57 | PC.NURSE ---
assumed care at 1900. patient not on sedation; tracks, positive cough and no apparent gag. patient did follow command to open mouth for temperature taking, does not answer questions or follow commands at times; did very clearly laugh at a joke and mouths words frequently. patient with fever of unknown origin, was 103.1, corresponding oral and temporal artery temps, noted one oral temp was lower after mouth care, generally agreement that temp was 103.1. patient with recent cultures, but new covid yao swab, negative, new blood cx, hepatitis a/b/c, bmp, cbc, wbc was slightly elevated, new cxr appeared improved per pa. new liver panel with increased AST and ALT and ALK phos; patient did have prn tylenol shortly before these were drawn, pa aware and tylenol order discontinued. patient is on ventilator pressure support 08/12; 28%; portex trach, cuffed, disposable cannula was changed twice; copious thick, creamy secretions to trach; suctioned frequently. te about 10-13; tv about 600-750, per rt brief apneic episodes overnight quickly compensated for with deep breaths. patient npo since midnight for niki today, so tf was on hold and omeprazole held this morning per pa; no residuals before this. also two very large loose-liquid brown bms overnight, and rectal tube placed due to concerns about potential for skin breakdown.
[2020-06-25] MEDS: lisinopriL 40 MG TABLET PO (07:58)
[2020-06-25] MEDS: Metoprolol Tartrate 25 MG TABLET PO ×2 (07:58→21:45)
[2020-06-25] MEDS: Digoxin 0.25 MG TABLET G-TUBE (07:59)
[2020-06-25 08:25] LABS: HBS Num1 0.88 mIU/mL (0-7.99); HBc Num1 0.25 S/CO (0.00-0.79); Hepatitis B Core Antibody Nonreactive (Nonreactive); ~Hepatitis B Surface Antibody NONREACTIVE (Nonreactive)
[2020-06-25 08:28] LABS: HBsAGNum1 0.21 S/CO (0.00-0.99); Hepatitis B Surface Antigen Negative (Negative); ~HepC Num1 0.21 S/CO (0.00-0.79); ~Hepatitis A Antibody IgM Nonreactive (Nonreactive); ~Hepatitis C Antibody Nonreactive (Nonreactive)
--- NOTE | 2020-06-25 09:00 | CA_ITS ---
Transesophageal Echocardiogram Amended Patient (Last, First, Middle): Esteban Galindo F Gender: Male Date of : 1960 Age: 60 Procedure Date: 06/25/2020 Procedure Type: Transesophageal Echocardiogram Location: ICU Height: 172.72 cm Weight: kg Ice Cream Server: DARINEL Referring MD: Stuart Rosario MD Symptoms: Fever of unkown origin L Tacker: Stuart Rosario MD Conclusion: ??? Informed consent was obtained by the machine rebuilder by talking to patient's brother. Patient's mental status prevents him consenting. After sedation was administered by the machine rebuilder, a bite block was placed. The transesophageal echocardiographic probe was placed without any difficulty. Due to patient's PEG tube, we did not go into the stomach. Usual 2D, color Doppler as well as spectral Doppler images were obtained. 3D images were also obtained. The probe was withdrawn without any difficulty. No complications noted. ??? The left ventricular systolic function is normal. The visually estimated ejection fraction is between 60-65%. ??? There is mild to moderate aortic valve regurgitation. ??? Overall, [id number] mitral regurgitation. ??? No evidence of valvular vegetations. Findings Procedure Information Consent was obtained prior to the procedure. Left Ventricle Normal left ventricular cavity size. The left ventricular systolic function is normal. The visually estimated ejection fraction is between 60-65%. There is no evidence of regional wall motion abnormalities. Right Ventricle Mildly increased right ventricular cavity size. There is normal right ventricular systolic function. Atria The left atrial appendage is normal in size and flow. There is no evidence of a thrombus in the left atrial appendage. There is no evidence of a patent foramen ovale. Aortic Valve There is a normal trileaflet aortic valve. There is mild calcification of the aortic valve. There is no aortic valve stenosis. There is mild to moderate aortic valve regurgitation. Mitral Valve There is mild mitral annular calcification. There is no mitral valve stenosis. Mild leaflet thickening and there is also chordal calcification. Vena contract of the mitral regurgitant jet measures 0.35 cm. PISA calculation with ERO 0.18sqcm. Visually, more in the moderate range. Overall, [id number] mitral regurgitation. Pulmonic Valve The pulmonic valve was not well visualized. Tricuspid Valve The tricuspid valve was not well visualized. There is trace tricuspid valve regurgitation. Great Vessels Mild atherosclerotic plaque noted in descending thoracic aorta and arch. Venous The inferior vena cava was not well visualized. Pericardium/Pleural There is no evidence of pericardial effusion. Prior Study Comparison Changes noted compared to prior study dated: 06/05/2020. See comments on valves. Measurements Mitral Valve MR Vol - PW Dopp: 28.98 MR VTI: 1.61 MR ERO: 18.00 MR Alias Yuval: 0.37 MR RAD: 0.70 Updated by Stuart Rosario on 11:32 AM with Status of Final Stuart Rosario MD electronically signed on 06/26/2020 11:32:56 AM with status of Final
--- NOTE | 2020-06-25 09:41 | MHC.CLN ---
F/U TF ON HOLD FOR TERRI TODAY PT TO RESUME PROMOTE AT MAX GOAL 75CC/HR WITH 240CC FREE WATER Q 6HRS PROVIDES 1800KCALS (23KCALS/KG BASED ON IBW), 112.5G PROTEIN (1.4G/KG), 2950CC TOTAL WATER FROM FORMULA AND FLUSHES (36CC/KG BASED ON IBW) NOTED PT WITH FEVER CONTINUES -ADJUST FREE WATER NEEDED MONITOR TOLERANCE, RESIDUALS AND LYTES RESUME TF WHEN ABLE FOLLOWING
[2020-06-25] MEDS: propofoL 200 MG/20 ML VIAL 100 MG IVPUSH (10:55)
[2020-06-25] MEDS: Apixaban 5 MG TABLET G-TUBE ×2 (10:57→21:44)
--- NOTE | 2020-06-25 11:07 | PM.PNCARD ---
Subjective Subjective Date of Service: 06/25/20 Principal diagnosis: alcohol withdrawal, atrial fibrillation Interval history: Seen patient regarding TERRI. No hx from patient due to mental status. Review of Systems Review of Systems Yes Unobtainable due to mental status Reports confusion Psychiatric: Reports confusion Physical Exam Vital Signs: Last Vital Signs Temp 100.9 F H 06/25/20 08:00 Pulse 90 06/25/20 11:00 Resp 17 06/25/20 11:00 BP 145/65 H 06/25/20 10:00 Pulse Ox 93 06/25/20 11:00 Body Mass Index 31.1 Const General: confusion and lethargic Orientation/consciousness: confusion and lethargic HENNC Other: Unremarkable Neck Neck: Yes normal visual inspection Chest Chest palpation & inspection: normal inspection of the chest Resp Auscultation: no crackles, no wheezes and diminished lung sounds Cardio Jugular venous distension: no JVD Palpation: normal PMI Heart sounds: S1 normal heart sound present, S2 normal heart sound present, no gallops, no murmurs and no rubs GI Palpation (GI): Soft to palpation Back/Spine/Pelvis Other: unremarkable Skin General skin exam: no rashes or lesions noted Neuro General: confusion Psych Mental Status: mental status grossly normal Results Labs and Meds Result diagrams: 06/25/20 05:07 06/25/20 05:07 Lab results: Laboratory Results - last 24 hr 06/25/20 06/25/20 06/25/20 00:45 00:45 00:45 WBC 13.0 H RBC 3.40 L Hgb 11.1 L Hct 34.5 L MCV 101.5 H MCH 32.6 MCHC 32.2 RDW 14.7 Plt Count 435 H D MPV 13.1 H Immature Gran % (Auto) 0.5 H Neut % (Auto) 70.6 Lymph % (Auto) 16.8 L [place] % (Auto) 10.3 Eos % (Auto) 1.4 Baso % (Auto) 0.4 Lymph # (Auto) 2.2 [place] # (Auto) 1.3 H Eos # (Auto) 0.2 Baso # (Auto) 0.1 Abs Immat Gran (auto) 0.06 H Absolute Neuts (auto) 9.2 H Absolute Nucleated RBC 0.000 Nucleated RBC % (auto) 0.0 Smear Tech's Comments VERIFIED PT INR APTT VBG pH VBG pCO2 VBG pO2 VBG HCO3 VBG O2 Saturation VBG Base Excess Sodium Cancelled Potassium Cancelled Chloride Cancelled Carbon Dioxide Cancelled Anion Gap Cancelled BUN Cancelled Creatinine Cancelled Estim Creat Clear Calc Cancelled Estimated GFR Cancelled Random Glucose Cancelled Lactic Acid 1.3 Calcium Cancelled Phosphorus Magnesium Total Bilirubin Direct Bilirubin AST ALT Alkaline Phosphatase Lactate Dehydrogenase C-Reactive Protein B-Natriuretic Peptide Total Protein Albumin Procalcitonin COVID-19 (LINDEN) COVID-19 Clin Com Hepatitis A IgM Ab Hep Bs Antigen Hep Bs Antibody Hep B Core Total Ab Hepatitis C Ab (EIA) 06/25/20 06/25/20 06/25/20 00:45 00:45 00:45 WBC RBC Hgb Hct MCV MCH MCHC RDW Plt Count MPV Immature Gran % (Auto) Neut % (Auto) Lymph % (Auto) [place] % (Auto) Eos % (Auto) Baso % (Auto) Lymph # (Auto) [place] # (Auto) Eos # (Auto) Baso # (Auto) Abs Immat Gran (auto) Absolute Neuts (auto) Absolute Nucleated RBC Nucleated RBC % (auto) Smear Tech's Comments PT INR APTT VBG pH VBG pCO2 VBG pO2 VBG HCO3 VBG O2 Saturation VBG Base Excess Sodium 139 Potassium 4.1 Chloride 104 Carbon Dioxide 24 Anion Gap 15 BUN 29 H Creatinine 0.76 Estim Creat Clear Calc 130.5 Estimated GFR > 60 Random Glucose 147 H Lactic Acid Calcium 8.9 Phosphorus Magnesium Total Bilirubin 1.5 H Direct Bilirubin 1.3 H AST 129 H ALT 61 H Alkaline Phosphatase 242 H D Lactate Dehydrogenase 249 C-Reactive Protein 16.38 H Cancelled B-Natriuretic Peptide Total Protein 6.9 Albumin 2.8 L Procalcitonin COVID-19 (LINDEN) COVID-19 Clin Com Hepatitis A IgM Ab Hep Bs Antigen Hep Bs Antibody Hep B Core Total Ab Hepatitis C Ab (EIA) 06/25/20 06/25/20 06/25/20 00:45 00:51 02:12 WBC RBC Hgb Hct MCV MCH MCHC RDW Plt Count MPV Immature Gran % (Auto) Neut % (Auto) Lymph % (Auto) [place] % (Auto) Eos % (Auto) Baso % (Auto) Lymph # (Auto) [place] # (Auto) Eos # (Auto) Baso # (Auto) Abs Immat Gran (auto) Absolute Neuts (auto) Absolute Nucleated RBC Nucleated RBC % (auto) Smear Tech's Comments PT INR APTT VBG pH VBG pCO2 VBG pO2 VBG HCO3 VBG O2 Saturation VBG Base Excess Sodium Potassium Chloride Carbon Dioxide Anion Gap BUN Creatinine Estim Creat Clear Calc Estimated GFR Random Glucose Lactic Acid Calcium Phosphorus Magnesium Total Bilirubin Direct Bilirubin AST ALT Alkaline Phosphatase Lactate Dehydrogenase C-Reactive Protein B-Natriuretic Peptide Total Protein Albumin Procalcitonin 0.18 COVID-19 (LINDEN) Cancelled Negative COVID-19 Clin Com Cancelled See Note Hepatitis A IgM Ab Hep Bs Antigen Hep Bs Antibody Hep B Core Total Ab Hepatitis C Ab (EIA) 06/25/20 06/25/20 06/25/20 02:12 05:07 05:07 WBC RBC Hgb Hct MCV MCH MCHC RDW Plt Count MPV Immature Gran % (Auto) Neut % (Auto) Lymph % (Auto) [place] % (Auto) Eos % (Auto) Baso % (Auto) Lymph # (Auto) [place] # (Auto) Eos # (Auto) Baso # (Auto) Abs Immat Gran (auto) Absolute Neuts (auto) Absolute Nucleated RBC Nucleated RBC % (auto) Smear Tech's Comments PT INR APTT VBG pH VBG pCO2 VBG pO2 VBG HCO3 VBG O2 Saturation VBG Base Excess Sodium 141 Potassium 4.0 Chloride 104 Carbon Dioxide 27 Anion Gap 14 BUN 28 H Creatinine 0.74 Estim Creat Clear Calc 134.0 Estimated GFR > 60 Random Glucose 142 H Lactic Acid Calcium 9.1 Phosphorus 4.1 Magnesium 2.0 Total Bilirubin Direct Bilirubin AST ALT Alkaline Phosphatase Lactate Dehydrogenase C-Reactive Protein B-Natriuretic Peptide 1813 H Total Protein Albumin 2.8 L Procalcitonin COVID-19 (LINDEN) COVID-19 Clin Com Hepatitis A IgM Ab Nonreactive Hep Bs Antigen Negative Hep Bs Antibody NONREACTIVE Hep B Core Total Ab Nonreactive Hepatitis C Ab (EIA) Nonreactive 06/25/20 06/25/20 06/25/20 05:07 05:08 05:14 WBC 13.5 H RBC 3.46 L Hgb 11.1 L Hct 35.3 L MCV 102.0 H MCH 32.1 MCHC 31.4 RDW 14.6 Plt Count 426 H MPV 13.7 H Immature Gran % (Auto) 0.7 H Neut % (Auto) 72.1 Lymph % (Auto) 16.3 L [place] % (Auto) 9.5 Eos % (Auto) 1.0 Baso % (Auto) 0.4 Lymph # (Auto) 2.2 [place] # (Auto) 1.3 H Eos # (Auto) 0.1 Baso # (Auto) 0.1 Abs Immat Gran (auto) 0.10 H Absolute Neuts (auto) 9.7 H Absolute Nucleated RBC 0.000 Nucleated RBC % (auto) 0.0 Smear Tech's Comments PT 19.8 H D INR 1.7 H APTT 35.9 VBG pH 7.38 VBG pCO2 51 VBG pO2 44 VBG HCO3 30 VBG O2 Saturation 78.4 VBG Base Excess 3.7 Sodium Potassium Chloride Carbon Dioxide Anion Gap BUN Creatinine Estim Creat Clear Calc Estimated GFR Random Glucose Lactic Acid Calcium Phosphorus Magnesium Total Bilirubin Direct Bilirubin AST ALT Alkaline Phosphatase Lactate Dehydrogenase C-Reactive Protein B-Natriuretic Peptide Total Protein Albumin Procalcitonin COVID-19 (LINDEN) COVID-19 Clin Com Hepatitis A IgM Ab Hep Bs Antigen Hep Bs Antibody Hep B Core Total Ab Hepatitis C Ab (EIA) Progress Note: A&P Assessment and plan (1) Fever of unknown origin: Status: Acute (2) Encephalopathy: Status: Acute (3) Cardiac arrest with successful resuscitation: Status: Acute (4) Persistent atrial fibrillation: Status: Acute Assessment and Plan: TERRI was done today. There are no obvious vegetations to suggest endocarditis. LV function appears preserved. There is mitral and aortic regurgitation. Full report will be entered. Otherwise, he can continue rate control medications for the atrial fibrillation and anticoagulation. Fall Risk Details Current Medications: Current Medications Generic Name Dose Route Start Last Admin Trade Name Freq PRN Reason Stop Dose Admin Apixaban 5 mg 06/18/20 14:30 06/25/20 10:57 Apixaban 5 Mg Tablet G-TUBE 5 mg BID JESSICA Administration Chlorhexidine Gluconate 15 ml 06/05/20 02:00 06/25/20 10:57 Chlorhexidine Gluc Oral Rinse 15 Ml Mouthwash BUCCAL Not Given TID JESSICA Digoxin 0.25 mg 06/21/20 09:00 06/25/20 07:59 Digoxin 0.25 Mg Tablet G-TUBE 0.25 mg DAILY JESSICA Administration Furosemide 20 mg 06/24/20 11:15 06/25/20 07:57 Furosemide 20 Mg Tablet PO 20 mg DAILY JESSICA Administration Protocol Lisinopril 40 mg 06/13/20 09:00 06/25/20 07:58 Lisinopril 40 Mg Tablet PO 40 mg DAILY [facility] Administration Protocol Metoprolol Tartrate 25 mg 06/21/20 21:00 06/25/20 07:58 Metoprolol Tartrate 25 Mg Tablet PO 25 mg BID JESSICA Administration Protocol Omeprazole 40 mg 06/13/20 09:15 06/25/20 05:20 Omeprazole 20 Mg/10 Ml Susp.Recon PO Not Given DAILY@0630 [facility] [place] Sodium Chloride 3 ml 05/30/20 08:00 06/25/20 10:57 0.9 % Sodium Chloride Flush 3 Ml Syringe IVFLUSH 3 ml QSHIFT JESSICA Administration Spironolactone 25 mg 06/24/20 11:15 06/25/20 07:57 Spironolactone 25 Mg Tablet PO 25 mg DAILY [facility] [place] Administration Protocol Thiamine HCl 100 mg 06/10/20 09:00 06/25/20 07:57 Thiamine Hcl 100 Mg Tablet PO 100 mg DAILY [facility] [place] [place] Administration Time Spent With Patient Time: Total time spent is greater than 50% in coordination of care (as documented) at patient's floor/unit and/or counseling patient: Time with patient: less than 15 minutes
--- NOTE | 2020-06-25 17:45 | P.PNCC_ITS ---
Subjective Subjective Date of Service: 06/25/20 Interval History: 60-year-old male presenting with alcohol withdrawal and had a phenobarb protocol but became uremic fluid overloaded markedly acidotic suffered cardiac arrest with 15 minutes resuscitation he has been intubated ever since and has a tracheostomy and PEG tube for feeding his acute kidney failure has resolved and is he but he remains encephalopathic awake state but still with very limited cognitive capability and his other issue is that he still has intermittent fevers and he just recently had Zosyn discontinued for possible drug fever after 5-6 days of therapy for E coli growing from the sputum but now his infiltrate seems to have completely resolved and his transesophageal echo was clearly negative for vegetation it simply demonstrated about 50% ejection fraction moderate aortic insufficiency and moderate mitral insufficiency Physical Exam Vital Signs: Vital Signs: Last Vital Signs Temp 99.3 F 06/25/20 17:00 Pulse 100 06/25/20 17:00 Resp 16 06/25/20 17:00 BP 149/73 H 06/25/20 17:00 Pulse Ox 95 06/25/20 17:00 Body Mass Index 31.1 Const: Other: Nonfocal neurologically but limited cognitive function but is arousable Skin is intact Tolerating his tube feeds with benign abdomen Lungs are clear on chest exam Cardiac exam with no gallops normal S1 and normal S2 and good bilateral carotid upstrokes Objective Data Labs CBC & Chem 7: 06/25/20 05:07 06/25/20 05:07 Labs: Laboratory Results - last 24 hr 06/25/20 06/25/20 06/25/20 00:45 00:45 00:45 WBC 13.0 H RBC 3.40 L Hgb 11.1 L Hct 34.5 L MCV 101.5 H MCH 32.6 MCHC 32.2 RDW 14.7 Plt Count 435 H D MPV 13.1 H Immature Gran % (Auto) 0.5 H Neut % (Auto) 70.6 Lymph % (Auto) 16.8 L [place] % (Auto) 10.3 Eos % (Auto) 1.4 Baso % (Auto) 0.4 Lymph # (Auto) 2.2 [place] # (Auto) 1.3 H Eos # (Auto) 0.2 Baso # (Auto) 0.1 Abs Immat Gran (auto) 0.06 H Absolute Neuts (auto) 9.2 H Absolute Nucleated RBC 0.000 Nucleated RBC % (auto) 0.0 Smear Tech's Comments VERIFIED PT INR APTT VBG pH VBG pCO2 VBG pO2 VBG HCO3 VBG O2 Saturation VBG Base Excess Sodium Cancelled Potassium Cancelled Chloride Cancelled Carbon Dioxide Cancelled Anion Gap Cancelled BUN Cancelled Creatinine Cancelled Estim Creat Clear Calc Cancelled Estimated GFR Cancelled Random Glucose Cancelled Lactic Acid 1.3 Calcium Cancelled Phosphorus Magnesium Total Bilirubin Direct Bilirubin AST ALT Alkaline Phosphatase Lactate Dehydrogenase C-Reactive Protein B-Natriuretic Peptide Total Protein Albumin Procalcitonin COVID-19 (LINDEN) COVID-19 Clin Com Hepatitis A IgM Ab Hep Bs Antigen Hep Bs Antibody Hep B Core Total Ab Hepatitis C Ab (EIA) 06/25/20 06/25/20 06/25/20 00:45 00:45 00:45 WBC RBC Hgb Hct MCV MCH MCHC RDW Plt Count MPV Immature Gran % (Auto) Neut % (Auto) Lymph % (Auto) [place] % (Auto) Eos % (Auto) Baso % (Auto) Lymph # (Auto) [place] # (Auto) Eos # (Auto) Baso # (Auto) Abs Immat Gran (auto) Absolute Neuts (auto) Absolute Nucleated RBC Nucleated RBC % (auto) Smear Tech's Comments PT INR APTT VBG pH VBG pCO2 VBG pO2 VBG HCO3 VBG O2 Saturation VBG Base Excess Sodium 139 Potassium 4.1 Chloride 104 Carbon Dioxide 24 Anion Gap 15 BUN 29 H Creatinine 0.76 Estim Creat Clear Calc 130.5 Estimated GFR > 60 Random Glucose 147 H Lactic Acid Calcium 8.9 Phosphorus Magnesium Total Bilirubin 1.5 H Direct Bilirubin 1.3 H AST 129 H ALT 61 H Alkaline Phosphatase 242 H D Lactate Dehydrogenase 249 C-Reactive Protein 16.38 H Cancelled B-Natriuretic Peptide Total Protein 6.9 Albumin 2.8 L Procalcitonin COVID-19 (LINDEN) COVID-19 Clin Com Hepatitis A IgM Ab Hep Bs Antigen Hep Bs Antibody Hep B Core Total Ab Hepatitis C Ab (EIA) 06/25/20 06/25/20 06/25/20 00:45 00:51 02:12 WBC RBC Hgb Hct MCV MCH MCHC RDW Plt Count MPV Immature Gran % (Auto) Neut % (Auto) Lymph % (Auto) [place] % (Auto) Eos % (Auto) Baso % (Auto) Lymph # (Auto) [place] # (Auto) Eos # (Auto) Baso # (Auto) Abs Immat Gran (auto) Absolute Neuts (auto) Absolute Nucleated RBC Nucleated RBC % (auto) Smear Tech's Comments PT INR APTT VBG pH VBG pCO2 VBG pO2 VBG HCO3 VBG O2 Saturation VBG Base Excess Sodium Potassium Chloride Carbon Dioxide Anion Gap BUN Creatinine Estim Creat Clear Calc Estimated GFR Random Glucose Lactic Acid Calcium Phosphorus Magnesium Total Bilirubin Direct Bilirubin AST ALT Alkaline Phosphatase Lactate Dehydrogenase C-Reactive Protein B-Natriuretic Peptide Total Protein Albumin Procalcitonin 0.18 COVID-19 (ILNDEN) Cancelled Negative COVID-19 Clin Com Cancelled See Note Hepatitis A IgM Ab Hep Bs Antigen Hep Bs Antibody Hep B Core Total Ab Hepatitis C Ab (EIA) 06/25/20 06/25/20 06/25/20 02:12 05:07 05:07 WBC RBC Hgb Hct MCV MCH MCHC RDW Plt Count MPV Immature Gran % (Auto) Neut % (Auto) Lymph % (Auto) [place] % (Auto) Eos % (Auto) Baso % (Auto) Lymph # (Auto) [place] # (Auto) Eos # (Auto) Baso # (Auto) Abs Immat Gran (auto) Absolute Neuts (auto) Absolute Nucleated RBC Nucleated RBC % (auto) Smear Tech's Comments PT INR APTT VBG pH VBG pCO2 VBG pO2 VBG HCO3 VBG O2 Saturation VBG Base Excess Sodium 141 Potassium 4.0 Chloride 104 Carbon Dioxide 27 Anion Gap 14 BUN 28 H Creatinine 0.74 Estim Creat Clear Calc 134.0 Estimated GFR > 60 Random Glucose 142 H Lactic Acid Calcium 9.1 Phosphorus 4.1 Magnesium 2.0 Total Bilirubin Direct Bilirubin AST ALT Alkaline Phosphatase Lactate Dehydrogenase C-Reactive Protein B-Natriuretic Peptide 1813 H Total Protein Albumin 2.8 L Procalcitonin COVID-19 (LINDEN) COVID-19 Clin Com Hepatitis A IgM Ab Nonreactive Hep Bs Antigen Negative Hep Bs Antibody NONREACTIVE Hep B Core Total Ab Nonreactive Hepatitis C Ab (EIA) Nonreactive 06/25/20 06/25/20 06/25/20 05:07 05:08 05:14 WBC 13.5 H RBC 3.46 L Hgb 11.1 L Hct 35.3 L MCV 102.0 H MCH 32.1 MCHC 31.4 RDW 14.6 Plt Count 426 H MPV 13.7 H Immature Gran % (Auto) 0.7 H Neut % (Auto) 72.1 Lymph % (Auto) 16.3 L [place] % (Auto) 9.5 Eos % (Auto) 1.0 Baso % (Auto) 0.4 Lymph # (Auto) 2.2 [place] # (Auto) 1.3 H Eos # (Auto) 0.1 Baso # (Auto) 0.1 Abs Immat Gran (auto) 0.10 H Absolute Neuts (auto) 9.7 H Absolute Nucleated RBC 0.000 Nucleated RBC % (auto) 0.0 Smear Tech's Comments PT 19.8 H D INR 1.7 H APTT 35.9 VBG pH 7.38 VBG pCO2 51 VBG pO2 44 VBG HCO3 30 VBG O2 Saturation 78.4 VBG Base Excess 3.7 Sodium Potassium Chloride Carbon Dioxide Anion Gap BUN Creatinine Estim Creat Clear Calc Estimated GFR Random Glucose Lactic Acid Calcium Phosphorus Magnesium Total Bilirubin Direct Bilirubin AST ALT Alkaline Phosphatase Lactate Dehydrogenase C-Reactive Protein B-Natriuretic Peptide Total Protein Albumin Procalcitonin COVID-19 (LINDEN) COVID-19 Clin Com Hepatitis A IgM Ab Hep Bs Antigen Hep Bs Antibody Hep B Core Total Ab Hepatitis C Ab (EIA) Microbiology Microbiology Results: Microbiology 06/23/20 Unknown Sputum - Induced Gram Stain - Final 06/23/20 Unknown Sputum - Induced Sputum Culture - Final 06/23/20 12:52 Urine [place] Urine Culture - Final No growth. 06/16/20 18:53 Bronch Lll - Bronchial Fungal Identification - Preliminary No growth to date. 06/20/20 17:59 Blood - Venous Blood Culture - Preliminary No growth after 48 hours. 06/20/20 17:52 Blood - Venous Blood Culture - Preliminary No growth after 48 hours. 06/17/20 06:12 Blood - Venous Blood Culture - Final No growth after 5 days. 06/17/20 06:08 Blood - Venous Blood Culture - Final No growth after 5 days. 06/16/20 18:53 Bronch Lll - Bronchial Gram Stain - Final 06/16/20 18:53 Bronch Lll - Bronchial Routine Culture - Final Escherichia coli 06/18/20 10:08 Sputum - Suctioned Gram Stain - Final 06/18/20 10:08 Sputum - Suctioned Sputum Culture - Final Escherichia coli 06/09/20 13:11 Stool Stool Culture - Final 06/05/20 03:40 Blood - Venous Blood Culture - Final No growth after 5 days. 06/05/20 03:36 Blood - Venous Blood Culture - Final No growth after 5 days. 06/04/20 11:45 Blood - Venous Blood Culture - Final No growth after 5 days. 06/04/20 11:45 Blood - Venous Blood Culture - Final No growth after 5 days. 06/05/20 03:31 Sputum - Suctioned Gram Stain - Final 06/05/20 03:31 Sputum - Suctioned Sputum Culture - Final 06/04/20 11:35 Urine Catheterized - Powers Catheter Urine Culture - Final No growth. Progress Note: A&P Assessment and plan (1) Fever of unknown origin: Status: Acute (2) Acute and chronic respiratory failure with hypoxia: Status: Acute (3) Dermatitis, unspecified: Problem details: Coccygeal skin breakdown with moisture harboring Status: Acute (4) Diastolic CHF, acute on chronic: Status: Acute (5) Pleural effusion: Status: Acute (6) Rib fractures: Status: Acute (7) Community acquired pneumonia, bilateral: Status: Acute (8) Cardiac arrest with successful resuscitation: Status: Acute (9) Acute kidney failure: Problem details: Due to ATN Renal fx is improving No indication for HD today Watch UO and labs Status: Acute (10) Obesity hypoventilation syndrome: Status: Acute (11) CHF (congestive heart failure): Status: Acute (12) Encephalopathy: Status: Acute (13) Restrictive lung disease secondary to obesity: Problem details: on CPAP and duonebs at home Status: Acute (14) Persistent atrial fibrillation: Status: Acute (15) Left atrial enlargement: Status: Acute (16) HTN (hypertension): Status: Acute (17) Sleep apnea: Status: Acute (18) Alcohol dependency: Status: Acute (19) Alcohol withdrawal syndrome: Status: Acute (20) Seroma due to trauma: Status: Acute (21) Abscess: Status: Acute (22) Difficulty breathing: Status: Acute Assessment and Plan: At this point with low-grade temperatures I will continue to observe for spontan eous resolution and if temperature spikes we will continue to re-culture Abdominal CT scan was done today because of his fever and mild liver function test elevation Time Spent With Patient Time: Total time spent is greater than 50% in coordination of care (as documented) at patient's floor/unit and/or counseling patient: Total time spent with greater than 50% in coordination of care (as documented) at patient's floor/unit and/or counseling patient:: 35
[2020-06-25] MEDS: Chlorhexidine Gluc Oral Rinse 15 ML MOUTHWASH BUCCAL (21:44)
[2020-06-26] VITALS (33 sets, daily range): BP systolic 148–176; BP diastolic 61–92; PULSE 82–116; RESP 14–33; TEMP 36.8–38.6; O2SAT 89–100
[2020-06-26 05:28] LABS: MANUAL DIFF FLAG NO
[2020-06-26 05:31] LABS: Basophils Absolute Auto 0.1 X10*3/uL (0.0-0.2); Basophils Percent Auto 0.4 % (0-2); Eosinophils Absolute Auto 0.2 X10*3/uL (0.0-0.4); Eosinophils Percent Auto 1.3 % (0-4); Hematocrit 34.8 % (42-52); Hemoglobin 11.1 g/dl (14.0-18.0); Imm Gran Abs Auto 0.08 X10*3/uL (0.00-0.03); Imm Gran Pct Auto 0.6 % (0.0-0.4); Lymphocytes Percent Auto 14.4 % (20-40); Mean Corpuscular HGB Conc 31.9 g/dl (31.0-36.0); Mean Corpuscular Hemoglobin 32.3 pg (27.0-33.0); Mean Corpuscular Volume 101.2 fL (80-98); Mean Platelet Volume 12.9 fL (9.4-12.4); Monocytes Absolute Auto 1.3 X10*3/uL (0.1-1.2); Neutrophils Absolute Auto 10.5 X10*3/uL (2.0-8.3); Neutrophils Percent Auto 74.3 % (45-73); Platelet Count 486 X10*3/uL (160-400); Red Blood Count 3.44 X10*6/uL (4.60-5.80); Red Cell Distribution Width 14.6 % (11.0-16.0); White Blood Count 14.1 X10*3/uL (4.8-10.8)
[2020-06-26 05:49] LABS: Base Excess VBG 3.3 mmol/L; HCO3 VBG 28 mmol/L; Oxygen Saturation VBG 69.1 %; PCO2 VBG 45 mmhg; PO2 VBG 34 mmhg; pH VBG 7.42 (7.32-7.43)
[2020-06-26 05:59] LABS: Albumin Level 2.7 g/dL (3.5-5.0); Anion Gap 14 (12-20); Blood Urea Nitrogen 23 mg/dL (9-16); Calcium 8.9 mg/dL (8.4-10.2); Carbon Dioxide 27 mmol/L (22-29); Chloride 102 mmol/L (96-108); Creatinine Clr Calc Pharmacy 139.6; Estimated Glomerular Filt Rate > 60; Glucose Random 159 mg/dL (60-115); Phosphorus 3.6 mg/dL (2.7-4.5); Potassium 4.1 mmol/l (3.3-5.1); Sodium 139 mmol/L (135-145)
[2020-06-26 06:01] LABS: Uric Acid 5.8 mg/dL (3.4-7.0)
[2020-06-26 06:02] LABS: B Type Natriuretic Peptide 2486 pg/mL (<100)
[2020-06-26] MEDS: Chlorhexidine Gluc Oral Rinse 15 ML MOUTHWASH BUCCAL ×3 (08:27→20:46)
[2020-06-26] MEDS: Spironolactone 25 MG TABLET PO (08:27)
[2020-06-26] MEDS: Apixaban 5 MG TABLET G-TUBE ×2 (08:28→20:46)
[2020-06-26] MEDS: Metoprolol Tartrate 25 MG TABLET PO ×2 (08:28→20:46)
[2020-06-26] MEDS: Furosemide 20 MG TABLET PO (08:28)
[2020-06-26] MEDS: Thiamine HCL 100 MG TABLET PO (08:28)
[2020-06-26] MEDS: Digoxin 0.25 MG TABLET G-TUBE (08:28)
[2020-06-26] MEDS: lisinopriL 40 MG TABLET PO (08:29)
[2020-06-26] MEDS: 0.9 % Sodium Chloride Flush 3 ML SYRINGE IVFLUSH ×2 (08:29→14:59)
--- NOTE | 2020-06-26 10:42 | PM.CCPN ---
Subjective Subjective Date of Service: 06/26/20 Interval History: 60-year-old male presents with chronic continuous alcoholism with delirium tremens went through a withdrawal program on phenobarb became uremic cardiac arrest with 15 minutes resuscitation and underwent a cooling procedure for nearly 24 hours was profoundly encephalopathic but now awake tracking with his eyes but still severely encephalopathic with very limited cognitive capability but this acute heart failure is rapid atrial fibrillation everything came under control now compensated and acute renal failure that required temporary dialysis also completely reversed and he has a tracheostomy and a PEG tube currently now 2 days tolerating trach collar and may be qualify for a long-term facility at this point Building a stable vaso dilator and diuretic regimen slowly Physical Exam Vital Signs: Vital Signs: Last Vital Signs Temp 100.8 F H 06/26/20 08:00 Pulse 86 06/26/20 10:00 Resp 18 06/26/20 10:00 BP 161/86 H 06/26/20 10:00 Pulse Ox 98 06/26/20 10:00 Body Mass Index 31.1 Const: Other: His neurologic exam is nonfocal but cognitive capability obviously very diminished Skin is intact Good bilateral carotid upstrokes no neck vein distension no gallops Chest is clear just some coarse rhonchi that require suctioning from proximal airway Abdomen is benign no organomegaly and he has Good bowel sounds and tolerating his feedings All lab work is excellent and in terms of workup for his fever of unknown origin he has a negative CT scan of his abdomen and negative transesophageal echo and thus far no fever for 36 hours Objective Data Labs CBC & Chem 7: 06/26/20 04:56 06/26/20 04:56 Labs: Laboratory Results - last 24 hr 06/26/20 06/26/20 06/26/20 04:56 04:56 04:56 WBC 14.1 H RBC 3.44 L Hgb 11.1 L Hct 34.8 L MCV 101.2 H MCH 32.3 MCHC 31.9 RDW 14.6 Plt Count 486 H MPV 12.9 H Immature Gran % (Auto) 0.6 H Neut % (Auto) 74.3 H Lymph % (Auto) 14.4 L [place] % (Auto) 9.0 Eos % (Auto) 1.3 Baso % (Auto) 0.4 Lymph # (Auto) 2.0 [place] # (Auto) 1.3 H Eos # (Auto) 0.2 Baso # (Auto) 0.1 Abs Immat Gran (auto) 0.08 H Absolute Neuts (auto) 10.5 H Absolute Nucleated RBC 0.000 Nucleated RBC % (auto) 0.0 VBG pH VBG pCO2 VBG pO2 VBG HCO3 VBG O2 Saturation VBG Base Excess Sodium 139 Potassium 4.1 Chloride 102 Carbon Dioxide 27 Anion Gap 14 BUN 23 H Creatinine 0.71 Estim Creat Clear Calc 139.6 Estimated GFR > 60 Random Glucose 159 H Uric Acid Calcium 8.9 Phosphorus 3.6 Magnesium 2.0 B-Natriuretic Peptide 2486 H Albumin 2.7 L 06/26/20 06/26/20 04:56 04:56 WBC RBC Hgb Hct MCV MCH MCHC RDW Plt Count MPV Immature Gran % (Auto) Neut % (Auto) Lymph % (Auto) [place] % (Auto) Eos % (Auto) Baso % (Auto) Lymph # (Auto) [place] # (Auto) Eos # (Auto) Baso # (Auto) Abs Immat Gran (auto) Absolute Neuts (auto) Absolute Nucleated RBC Nucleated RBC % (auto) VBG pH 7.42 VBG pCO2 45 VBG pO2 34 VBG HCO3 28 VBG O2 Saturation 69.1 VBG Base Excess 3.3 Sodium Potassium Chloride Carbon Dioxide Anion Gap BUN Creatinine Estim Creat Clear Calc Estimated GFR Random Glucose Uric Acid 5.8 Calcium Phosphorus Magnesium B-Natriuretic Peptide Albumin Microbiology Microbiology Results: Microbiology 06/25/20 00:48 Blood - Venous Blood Culture - Preliminary No growth after 24 hours. 06/25/20 00:45 Blood - Venous Blood Culture - Preliminary No growth after 24 hours. 06/20/20 17:59 Blood - Venous Blood Culture - Final No growth after 5 days. 06/20/20 17:52 Blood - Venous Blood Culture - Final No growth after 5 days. 06/23/20 Unknown Sputum - Induced Gram Stain - Final 06/23/20 Unknown Sputum - Induced Sputum Culture - Final 06/23/20 12:52 Urine [place] Urine Culture - Final No growth. 06/16/20 18:53 Bronch Lll - Bronchial Fungal Identification - Preliminary No growth to date. 06/17/20 06:12 Blood - Venous Blood Culture - Final No growth after 5 days. 06/17/20 06:08 Blood - Venous Blood Culture - Final No growth after 5 days. 06/16/20 18:53 Bronch Lll - Bronchial Gram Stain - Final 06/16/20 18:53 Bronch Lll - Bronchial Routine Culture - Final Escherichia coli 06/18/20 10:08 Sputum - Suctioned Gram Stain - Final 06/18/20 10:08 Sputum - Suctioned Sputum Culture - Final Escherichia coli 06/09/20 13:11 Stool Stool Culture - Final 06/05/20 03:40 Blood - Venous Blood Culture - Final No growth after 5 days. 06/05/20 03:36 Blood - Venous Blood Culture - Final No growth after 5 days. 06/04/20 11:45 Blood - Venous Blood Culture - Final No growth after 5 days. 06/04/20 11:45 Blood - Venous Blood Culture - Final No growth after 5 days. 06/05/20 03:31 Sputum - Suctioned Gram Stain - Final 06/05/20 03:31 Sputum - Suctioned Sputum Culture - Final 06/04/20 11:35 Urine Catheterized - Powers Catheter Urine Culture - Final No growth. Progress Note: A&P Assessment and plan (1) Fever of unknown origin: Status: Acute (2) Dermatitis, unspecified: Problem details: Coccygeal skin breakdown with moisture harboring Status: Acute (3) Acute and chronic respiratory failure with hypoxia: Status: Acute (4) Diastolic CHF, acute on chronic: Status: Acute (5) Pleural effusion: Status: Acute (6) Rib fractures: Status: Acute (7) Community acquired pneumonia, bilateral: Status: Acute (8) Cardiac arrest with successful resuscitation: Status: Acute (9) Acute kidney failure: Problem details: Due to ATN Renal fx is improving No indication for HD today Watch UO and labs Status: Acute (10) Obesity hypoventilation syndrome: Status: Acute (11) CHF (congestive heart failure): Status: Acute (12) Encephalopathy: Status: Acute (13) Restrictive lung disease secondary to obesity: Problem details: on CPAP and duonebs at home Status: Acute (14) Persistent atrial fibrillation: Status: Acute (15) Left atrial enlargement: Status: Acute (16) HTN (hypertension): Status: Acute (17) Sleep apnea: Status: Acute (18) Alcohol dependency: Status: Acute (19) Alcohol withdrawal syndrome: Status: Acute (20) Seroma due to trauma: Status: Acute (21) Abscess: Status: Acute (22) Difficulty breathing: Status: Acute Assessment and Plan: So at this point he just needs conversion to a permanent tracheostomy without a balloon and continued trach care feeding is via the PEG tube and continue to watch for development of fever but this may be a a resolution of a drug fever and blaming his antibiotic which was a beta-lactam Time Spent With Patient Time: Total time spent is greater than 50% in coordination of care (as documented) at patient's floor/unit and/or counseling patient: Total time spent with greater than 50% in coordination of care (as documented) at patient's floor/unit and/or counseling patient:: 30 No Severe Sepsis: No Severe Sepsis
--- NOTE | 2020-06-26 11:15 | MHC.CM.PN ---
Per MD rounds, temps improving, but still had 2 temps of 100.8 in past 24 hours. On tach collar, with BiPAP at noc. Pt wakws, tracks with his eyes, but does not follow commands. Will attempt to find periferal IV and d/c central line. Will remove f/c and use [place] catheter. LTAC- [facility]. Remains Covid negative. PSI obtained yesterday and sent via [employer] to [facility].
[2020-06-26] MEDS: metOLazone 2.5 MG TABLET PO (12:48)
[2020-06-26] MEDS: Potassium Chloride Packet 20 MEQ PACKET PO (12:48)
--- NOTE | 2020-06-26 18:37 | PC.NURSE ---
Patient trach masked today. Got OOB to chair with max assist. Patient more alert. Mouthing words. Pt was extremely angry and combative with turns. Vitals stable T max 101.5. MD made aware. Powers catheter and central line removed. Peripheral access obtained. Will continue to monitor.
[2020-06-26] MEDS: Furosemide 20 MG/2 ML VIAL IVPUSH (20:48)
[2020-06-26] MEDS: Albumin Human 25 % 100 ML IV ×2 (20:48→22:35)
--- NOTE | 2020-06-26 23:14 | PC.NURSE ---
2200 after turning and cleaning patient it was discovered that the ETT had been dislodged by 5cm. HEAD MECHANIC and PA were notified. HEAD MECHANIC at bedside to deflate cuff and advance tube to original position. Stat XCR was performed to confirm placement.
[2020-06-27] VITALS (31 sets, daily range): BP systolic 128–182; BP diastolic 58–115; PULSE 83–113; RESP 18–33; TEMP 36.4–37.8; O2SAT 95–100
[2020-06-27] MEDS: 0.9 % Sodium Chloride Flush 3 ML SYRINGE IVFLUSH ×3 (00:37→15:19)
[2020-06-27 05:33] LABS: MANUAL DIFF FLAG NO
[2020-06-27 05:34] LABS: Basophils Absolute Auto 0.1 X10*3/uL (0.0-0.2); Basophils Percent Auto 0.4 % (0-2); Eosinophils Absolute Auto 0.3 X10*3/uL (0.0-0.4); Eosinophils Percent Auto 1.8 % (0-4); Hematocrit 34.5 % (42-52); Hemoglobin 11.2 g/dl (14.0-18.0); Imm Gran Abs Auto 0.06 X10*3/uL (0.00-0.03); Imm Gran Pct Auto 0.4 % (0.0-0.4); Lymphocytes Percent Auto 14.5 % (20-40); Mean Corpuscular HGB Conc 32.5 g/dl (31.0-36.0); Mean Corpuscular Hemoglobin 32.5 pg (27.0-33.0); Mean Platelet Volume 12.7 fL (9.4-12.4); Monocytes Percent Auto 7.2 % (2-11); Neutrophils Absolute Auto 10.6 X10*3/uL (2.0-8.3); Neutrophils Percent Auto 75.7 % (45-73); Platelet Count 483 X10*3/uL (160-400); Red Blood Count 3.45 X10*6/uL (4.60-5.80); Red Cell Distribution Width 14.6 % (11.0-16.0); White Blood Count 14.1 X10*3/uL (4.8-10.8)
[2020-06-27 05:37] LABS: Base Excess VBG 7.6 mmol/L; HCO3 VBG 32 mmol/L; PCO2 VBG 44 mmhg; PO2 VBG 57 mmhg; pH VBG 7.48 (7.32-7.43)
[2020-06-27 06:04] LABS: B Type Natriuretic Peptide 2106 pg/mL (<100)
[2020-06-27 06:05] LABS: Albumin Level 3.3 g/dL (3.5-5.0); Anion Gap 16 (12-20); Blood Urea Nitrogen 23 mg/dL (9-16); Calcium 9.5 mg/dL (8.4-10.2); Carbon Dioxide 28 mmol/L (22-29); Chloride 100 mmol/L (96-108); Creatinine Clr Calc Pharmacy 135.8; Estimated Glomerular Filt Rate > 60; Glucose Random 161 mg/dL (60-115); Magnesium 1.9 mg/dL (1.6-2.6); Phosphorus 4.1 mg/dL (2.7-4.5); Sodium 140 mmol/L (135-145)
[2020-06-27] MEDS: Spironolactone 25 MG TABLET PO (08:19)
[2020-06-27] MEDS: Furosemide 40 MG TABLET PO (08:20)
[2020-06-27] MEDS: Digoxin 0.25 MG TABLET G-TUBE (08:20)
[2020-06-27] MEDS: lisinopriL 40 MG TABLET PO (08:20)
[2020-06-27] MEDS: Apixaban 5 MG TABLET G-TUBE ×2 (08:20→21:10)
[2020-06-27] MEDS: Metoprolol Tartrate 25 MG TABLET PO ×2 (08:21→21:09)
[2020-06-27] MEDS: Chlorhexidine Gluc Oral Rinse 15 ML MOUTHWASH BUCCAL ×3 (08:21→21:09)
--- NOTE | 2020-06-27 09:14 | PM.CCPN ---
Subjective Subjective Date of Service: 06/27/20 Interval History: 60-year-old male originally admitted for alcohol withdrawal with delirium tremens on a phenobarb protocol developed a uremia with acute stage 5 renal failure fluid overloaded and acidotic suffered cardiac arrest and does have an underlying cardiomyopathy with just mild reduction of systolic and diastolic reserve now chronic continuous atrial fibrillation with controlled rate and his renal failure has reversed and he has long since had his dialysis catheter removed he had 24 hours of cooling temperature initially and the only remaining residual is the tracheostomy and PEG tube and the persistent encephalopathy which is very slowly improving over time Physical Exam Vital Signs: Vital Signs: Last Vital Signs Temp 99.1 F 06/27/20 09:00 Pulse 86 06/27/20 09:00 Resp 27 H 06/27/20 09:00 BP 156/78 H 06/27/20 09:00 Pulse Ox 100 06/27/20 09:00 Body Mass Index 31.1 Const: Other: He is awake and arousable very limited cognitive function but nonfocal neurologic Cardiac exam with normal S1 normal S2 no gallops no murmurs and good bilateral carotid upstrokes Chest the still has some scattered coarse rhonchi from proximal airway secretions Abdomen is benign no organomegaly good bowel sounds nontender nondistended Objective Data Labs CBC & Chem 7: 06/27/20 05:11 06/27/20 05:11 Labs: Laboratory Results - last 24 hr 06/26/20 06/27/20 06/27/20 19:31 05:11 05:11 WBC RBC Hgb Hct MCV MCH MCHC RDW Plt Count MPV Immature Gran % (Auto) Neut % (Auto) Lymph % (Auto) [place] % (Auto) Eos % (Auto) Baso % (Auto) Lymph # (Auto) [place] # (Auto) Eos # (Auto) Baso # (Auto) Abs Immat Gran (auto) Absolute Neuts (auto) Absolute Nucleated RBC Nucleated RBC % (auto) VBG pH VBG pCO2 VBG pO2 VBG HCO3 VBG O2 Saturation VBG Base Excess Sodium 140 Potassium 4.0 Chloride 100 Carbon Dioxide 28 Anion Gap 16 BUN 23 H Creatinine 0.73 Estim Creat Clear Calc 135.8 Estimated GFR > 60 Random Glucose 161 H Lactic Acid 1.0 Calcium 9.5 D Phosphorus 4.1 Magnesium 1.9 B-Natriuretic Peptide 2106 H Albumin 3.3 L D 06/27/20 06/27/20 05:11 05:11 WBC 14.1 H RBC 3.45 L Hgb 11.2 L Hct 34.5 L MCV 100.0 H MCH 32.5 MCHC 32.5 RDW 14.6 Plt Count 483 H MPV 12.7 H Immature Gran % (Auto) 0.4 Neut % (Auto) 75.7 H Lymph % (Auto) 14.5 L [place] % (Auto) 7.2 Eos % (Auto) 1.8 Baso % (Auto) 0.4 Lymph # (Auto) 2.0 [place] # (Auto) 1.0 Eos # (Auto) 0.3 Baso # (Auto) 0.1 Abs Immat Gran (auto) 0.06 H Absolute Neuts (auto) 10.6 H Absolute Nucleated RBC 0.000 Nucleated RBC % (auto) 0.0 VBG pH 7.48 H VBG pCO2 44 VBG pO2 57 VBG HCO3 32 VBG O2 Saturation 90.0 VBG Base Excess 7.6 Sodium Potassium Chloride Carbon Dioxide Anion Gap BUN Creatinine Estim Creat Clear Calc Estimated GFR Random Glucose Lactic Acid Calcium Phosphorus Magnesium B-Natriuretic Peptide Albumin Microbiology Microbiology Results: Microbiology 06/25/20 00:48 Blood - Venous Blood Culture - Preliminary No growth after 48 hours. 06/25/20 00:45 Blood - Venous Blood Culture - Preliminary No growth after 48 hours. 06/20/20 17:59 Blood - Venous Blood Culture - Final No growth after 5 days. 06/20/20 17:52 Blood - Venous Blood Culture - Final No growth after 5 days. 06/23/20 Unknown Sputum - Induced Gram Stain - Final 06/23/20 Unknown Sputum - Induced Sputum Culture - Final 06/23/20 12:52 Urine [place] Urine Culture - Final No growth. 06/16/20 18:53 Bronch Lll - Bronchial Fungal Identification - Preliminary No growth to date. 06/17/20 06:12 Blood - Venous Blood Culture - Final No growth after 5 days. 06/17/20 06:08 Blood - Venous Blood Culture - Final No growth after 5 days. 06/16/20 18:53 Bronch Lll - Bronchial Gram Stain - Final 06/16/20 18:53 Bronch Lll - Bronchial Routine Culture - Final Escherichia coli 06/18/20 10:08 Sputum - Suctioned Gram Stain - Final 06/18/20 10:08 Sputum - Suctioned Sputum Culture - Final Escherichia coli 06/09/20 13:11 Stool Stool Culture - Final 06/05/20 03:40 Blood - Venous Blood Culture - Final No growth after 5 days. 06/05/20 03:36 Blood - Venous Blood Culture - Final No growth after 5 days. 06/04/20 11:45 Blood - Venous Blood Culture - Final No growth after 5 days. 06/04/20 11:45 Blood - Venous Blood Culture - Final No growth after 5 days. 06/05/20 03:31 Sputum - Suctioned Gram Stain - Final 06/05/20 03:31 Sputum - Suctioned Sputum Culture - Final 06/04/20 11:35 Urine Catheterized - Powers Catheter Urine Culture - Final No growth. Progress Note: A&P Assessment and plan (1) Fever of unknown origin: Status: Acute (2) Acute and chronic respiratory failure with hypoxia: Status: Acute (3) Dermatitis, unspecified: Problem details: Coccygeal skin breakdown with moisture harboring Status: Acute (4) Diastolic CHF, acute on chronic: Status: Acute (5) Pleural effusion: Status: Acute (6) Rib fractures: Status: Acute (7) Community acquired pneumonia, bilateral: Status: Acute (8) Cardiac arrest with successful resuscitation: Status: Acute (9) Acute kidney failure: Problem details: Due to ATN Renal fx is improving No indication for HD today Watch UO and labs Status: Acute (10) Obesity hypoventilation syndrome: Status: Acute (11) CHF (congestive heart failure): Status: Acute (12) Encephalopathy: Status: Acute (13) Restrictive lung disease secondary to obesity: Problem details: on CPAP and duonebs at home Status: Acute (14) Persistent atrial fibrillation: Status: Acute (15) Left atrial enlargement: Status: Acute (16) HTN (hypertension): Status: Acute (17) Sleep apnea: Status: Acute (18) Alcohol dependency: Status: Acute (19) Alcohol withdrawal syndrome: Status: Acute (20) Seroma due to trauma: Status: Acute (21) Abscess: Status: Acute (22) Difficulty breathing: Status: Acute Assessment and Plan: So medically doing very well and compensated cardiac function but building a diuretic regimen to keep him euvolemic and just awaiting for further resolution of his cognitive function and in the interim now that he is tolerating a trach collar he might be discharged ball to a skilled facility for rehab purposes Time Spent With Patient Time: Total time spent is greater than 50% in coordination of care (as documented) at patient's floor/unit and/or counseling patient: Total time spent with greater than 50% in coordination of care (as documented) at patient's floor/unit and/or counseling patient:: 30
--- NOTE | 2020-06-27 17:18 | PC.NURSE ---
Addendum entered by Hawa Al RN 06/27/20 17:54: BROTHER DANNY TO [facility] TOMORROW. WILL CALL WHEN HE IS ON HIS WAY. Original Note: TMAX 100.1, VSS, 30% COOL AEROSOL. AFIB W/ ST DEPRESSIONS NOTED. PT RESPONDS TO NAME AND LIGHT TOUCH, ATTEMPTS TO MOUTH WORDS, DOES NOT FOLLOW COMMANDS. SHAKES HEAD NO TO PAIN, BUT GRIMACES WITH REPOSITIONING. I&E RHONCHI THROUGHOUT. PT ABLE TO COUGH UP AND INLINE SUCTION THICK, CREAM SECRETIONS, SAMPLE SENT THIS AM. TUBE FEEDS CONTINUE WITH PROMOTE 75 ML/HR, NO RESIDUAL. RECTAL TUBE PUT OUT 250 ML. TEXT CATH OUTPUT WNL. Q2H REPO, BATHED, BARRIER CREAM, OOB TO RECLINER FROM [id number], PREVALON MATTRESS, PILLOWS, AND BOOTIES USED. FAMILY UPDATED BY THIS RN.
[2020-06-27] MEDS: oxyCODONE HCl Immed Release 5 MG TABLET PO (21:10)
[2020-06-28] VITALS (27 sets, daily range): BP systolic 104–158; BP diastolic 53–94; PULSE 77–108; RESP 15–27; TEMP 36.6–37.4; O2SAT 92–99
[2020-06-28] MEDS: LORazepam 2 MG/ML VIAL 1 MG IVPUSH ×2 (01:28→20:13)
[2020-06-28] MEDS: 0.9 % Sodium Chloride Flush 3 ML SYRINGE IVFLUSH ×4 (01:29→23:41)
[2020-06-28 06:00] LABS: MANUAL DIFF FLAG NO
[2020-06-28 06:09] LABS: Basophils Absolute Auto 0.1 X10*3/uL (0.0-0.2); Basophils Percent Auto 0.4 % (0-2); Eosinophils Absolute Auto 0.3 X10*3/uL (0.0-0.4); Hematocrit 39.2 % (42-52); Hemoglobin 12.5 g/dl (14.0-18.0); Imm Gran Abs Auto 0.08 X10*3/uL (0.00-0.03); Imm Gran Pct Auto 0.6 % (0.0-0.4); Lymphocytes Absolute Auto 2.3 X10*3/uL (1.2-4.9); Lymphocytes Percent Auto 16.2 % (20-40); Mean Corpuscular HGB Conc 31.9 g/dl (31.0-36.0); Mean Corpuscular Hemoglobin 32.4 pg (27.0-33.0); Mean Corpuscular Volume 101.6 fL (80-98); Mean Platelet Volume 12.8 fL (9.4-12.4); Monocytes Absolute Auto 0.9 X10*3/uL (0.1-1.2); Monocytes Percent Auto 6.7 % (2-11); Neutrophils Absolute Auto 10.3 X10*3/uL (2.0-8.3); Neutrophils Percent Auto 74.1 % (45-73); Platelet Count 507 X10*3/uL (160-400); Red Blood Count 3.86 X10*6/uL (4.60-5.80); Red Cell Distribution Width 14.6 % (11.0-16.0); White Blood Count 13.9 X10*3/uL (4.8-10.8)
[2020-06-28 06:16] LABS: Base Excess VBG 8.8 mmol/L; HCO3 VBG 35 mmol/L; Oxygen Saturation VBG 79.3 %; PCO2 VBG 54 mmhg; PO2 VBG 42 mmhg; pH VBG 7.43 (7.32-7.43)
[2020-06-28 06:26] LABS: Albumin Level 3.1 g/dL (3.5-5.0); Anion Gap 17 (12-20); Blood Urea Nitrogen 28 mg/dL (9-16); Calcium 9.2 mg/dL (8.4-10.2); Carbon Dioxide 30 mmol/L (22-29); Chloride 99 mmol/L (96-108); Creatinine Clr Calc Pharmacy 130.5; Estimated Glomerular Filt Rate > 60; Glucose Random 154 mg/dL (60-115); Phosphorus 4.8 mg/dL (2.7-4.5); Potassium 4.2 mmol/l (3.3-5.1); Sodium 142 mmol/L (135-145)
[2020-06-28 06:27] LABS: B Type Natriuretic Peptide 1159 pg/mL (<100)
--- NOTE | 2020-06-28 07:46 | PC.NURSE ---
assumed care at 1900. patient alert, tracks, does not reply to questions, does not follow commands; vocalizes by groaning, and by occasional words, did say hello in response to being greeted. pupils equal and reactive. patient continues on trach collar, 35% Fi02; spo2 96-99%. patient had large amount of thick loaiza/cream colored secretions, suctioned with good effect, trach care with good effect. patient seemed to have less sputum out over shift, pa aware of secretions, recent sputum cx pending. patient with lung sounds with rhonchi at the beginning of night, now clear uppers, dim bases. patient with tube feeding promote 75 cc/hr well tolerated. patient with rectal tube in place, putting out loaiza liquid stool. patient with [place] catheter, outputs averaging about 40-50 cc/hour. some fever, tmax 100.0, later 98.1, oral, pa aware.
--- NOTE | 2020-06-28 07:52 | MHC.PIE ---
p: groaning and nonverbal signs of pain overnight, patient unable to point to area of pain, unable to indicate if actually has pain, i: notify pa, new order for one time oxycodone e: symptoms continued, new order for one time iv ativan, some improvement; discussed further consideration of tx for pain with pa, day shift to consider.
[2020-06-28] MEDS: Digoxin 0.25 MG TABLET G-TUBE (08:14)
[2020-06-28] MEDS: lisinopriL 40 MG TABLET PO (08:14)
[2020-06-28] MEDS: Metoprolol Tartrate 25 MG TABLET PO ×2 (08:14→20:13)
[2020-06-28] MEDS: Furosemide 40 MG TABLET PO (08:14)
[2020-06-28] MEDS: Apixaban 5 MG TABLET G-TUBE ×2 (08:15→20:24)
[2020-06-28] MEDS: Spironolactone 25 MG TABLET PO (08:15)
[2020-06-28 09:36] LABS: Alanine Aminotransferase 34 U/L (0-40); Albumin Level 3.2 g/dL (3.5-5.0); Alkaline Phosphatase 215 U/L (39-117); Aspartate Amino Transferase 50 U/L (5-37); Bilirubin Direct 0.9 mg/dL (0.0-0.5); Total Protein 7.6 g/dL (6.5-8.0)
--- NOTE | 2020-06-28 15:07 | PM.CCPN ---
Subjective Subjective Date of Service: 06/28/20 Interval History: 60-year-old male chronic continuous alcoholic came in for phenobarb withdrawal program developed uremia with fluid overload and marked acidosis leading to cardiac arrest This on a background of morbid obesity probable obstructive sleep apnea known cardiomyopathy with paroxysmal but now persistent atrial fibrillation and controlled and with mild reduction of systolic and diastolic reserve of his ventricle 15 minutes resuscitation he now has all systems resolved except for persistent encephalopathy and he has a tracheostomy and PEG tube no signs of infection fever resolving which in retrospect was drug fever and he is 24 hours a day on a trach collar off the ventilator Physical Exam Vital Signs: Vital Signs: Last Vital Signs Temp 98.2 F 06/28/20 12:00 Pulse 100 06/28/20 14:00 Resp 26 H 06/28/20 14:00 BP 148/79 H 06/28/20 14:00 Pulse Ox 94 06/28/20 14:00 Body Mass Index 31.1 Const: Other: He is awake and he tracks and he tries to vocalize with a [place] valve Nonfocal neurologically Cardiac with controlled AFib no neck vein distension and good bilateral carotid upstrokes and no gallops Mild scattered coarse rhonchi from proximal airway secretions Abdomen tolerating diet but soft and nondistended with no again a megaly and good bowel sounds Skin is intact Objective Data Labs CBC & Chem 7: 06/28/20 05:24 06/28/20 05:24 Labs: Laboratory Results - last 24 hr 06/28/20 06/28/20 06/28/20 05:24 05:24 05:24 WBC 13.9 H RBC 3.86 L Hgb 12.5 L Hct 39.2 L MCV 101.6 H MCH 32.4 MCHC 31.9 RDW 14.6 Plt Count 507 H MPV 12.8 H Immature Gran % (Auto) 0.6 H Neut % (Auto) 74.1 H Lymph % (Auto) 16.2 L [place] % (Auto) 6.7 Eos % (Auto) 2.0 Baso % (Auto) 0.4 Lymph # (Auto) 2.3 [place] # (Auto) 0.9 Eos # (Auto) 0.3 Baso # (Auto) 0.1 Abs Immat Gran (auto) 0.08 H Absolute Neuts (auto) 10.3 H Absolute Nucleated RBC 0.000 Nucleated RBC % (auto) 0.0 VBG pH VBG pCO2 VBG pO2 VBG HCO3 VBG O2 Saturation VBG Base Excess Sodium 142 Potassium 4.2 Chloride 99 Carbon Dioxide 30 H Anion Gap 17 BUN 28 H Creatinine 0.76 Estim Creat Clear Calc 130.5 Estimated GFR > 60 Random Glucose 154 H Calcium 9.2 Phosphorus 4.8 H Magnesium 2.0 Total Bilirubin Direct Bilirubin AST ALT Alkaline Phosphatase B-Natriuretic Peptide 1159 H Total Protein Albumin 3.1 L 06/28/20 06/28/20 05:24 09:00 WBC RBC Hgb Hct MCV MCH MCHC RDW Plt Count MPV Immature Gran % (Auto) Neut % (Auto) Lymph % (Auto) [place] % (Auto) Eos % (Auto) Baso % (Auto) Lymph # (Auto) [place] # (Auto) Eos # (Auto) Baso # (Auto) Abs Immat Gran (auto) Absolute Neuts (auto) Absolute Nucleated RBC Nucleated RBC % (auto) VBG pH 7.43 VBG pCO2 54 VBG pO2 42 VBG HCO3 35 VBG O2 Saturation 79.3 VBG Base Excess 8.8 Sodium Potassium Chloride Carbon Dioxide Anion Gap BUN Creatinine Estim Creat Clear Calc Estimated GFR Random Glucose Calcium Phosphorus Magnesium Total Bilirubin 1.0 Direct Bilirubin 0.9 H AST 50 H D ALT 34 Alkaline Phosphatase 215 H B-Natriuretic Peptide Total Protein 7.6 Albumin 3.2 L Microbiology Microbiology Results: Microbiology 06/26/20 20:37 Urine [place] Urine Culture - Final No growth. 06/27/20 08:40 Sputum - Expectorated Gram Stain - Final 06/27/20 08:40 Sputum - Expectorated Sputum Culture - Preliminary Culture in progress. 06/26/20 19:31 Blood - Venous Blood Culture - Preliminary No growth after 24 hours. 06/26/20 19:37 Blood - Venous Blood Culture - Preliminary No growth after 24 hours. 06/25/20 00:48 Blood - Venous Blood Culture - Preliminary No growth after 48 hours. 06/25/20 00:45 Blood - Venous Blood Culture - Preliminary No growth after 48 hours. 06/20/20 17:59 Blood - Venous Blood Culture - Final No growth after 5 days. 06/20/20 17:52 Blood - Venous Blood Culture - Final No growth after 5 days. 06/23/20 Unknown Sputum - Induced Gram Stain - Final 06/23/20 Unknown Sputum - Induced Sputum Culture - Final 06/23/20 12:52 Urine [place] Urine Culture - Final No growth. 06/16/20 18:53 Bronch Lll - Bronchial Fungal Identification - Preliminary No growth to date. 06/17/20 06:12 Blood - Venous Blood Culture - Final No growth after 5 days. 06/17/20 06:08 Blood - Venous Blood Culture - Final No growth after 5 days. 06/16/20 18:53 Bronch Lll - Bronchial Gram Stain - Final 06/16/20 18:53 Bronch Lll - Bronchial Routine Culture - Final Escherichia coli 06/18/20 10:08 Sputum - Suctioned Gram Stain - Final 06/18/20 10:08 Sputum - Suctioned Sputum Culture - Final Escherichia coli 06/09/20 13:11 Stool Stool Culture - Final 06/05/20 03:40 Blood - Venous Blood Culture - Final No growth after 5 days. 06/05/20 03:36 Blood - Venous Blood Culture - Final No growth after 5 days. 06/04/20 11:45 Blood - Venous Blood Culture - Final No growth after 5 days. 06/04/20 11:45 Blood - Venous Blood Culture - Final No growth after 5 days. 06/05/20 03:31 Sputum - Suctioned Gram Stain - Final 06/05/20 03:31 Sputum - Suctioned Sputum Culture - Final 06/04/20 11:35 Urine Catheterized - Powers Catheter Urine Culture - Final No growth. Progress Note: A&P Assessment and plan (1) Fever of unknown origin: Status: Acute (2) Acute and chronic respiratory failure with hypoxia: Status: Acute (3) Dermatitis, unspecified: Problem details: Coccygeal skin breakdown with moisture harboring Status: Acute (4) Diastolic CHF, acute on chronic: Status: Acute (5) Pleural effusion: Status: Acute (6) Rib fractures: Status: Acute (7) Community acquired pneumonia, bilateral: Status: Acute (8) Cardiac arrest with successful resuscitation: Status: Acute (9) Acute kidney failure: Problem details: Due to ATN Renal fx is improving No indication for HD today Watch UO and labs Status: Acute (10) Obesity hypoventilation syndrome: Status: Acute (11) CHF (congestive heart failure): Status: Acute (12) Encephalopathy: Status: Acute (13) Restrictive lung disease secondary to obesity: Problem details: on CPAP and duonebs at home Status: Acute (14) Persistent atrial fibrillation: Status: Acute (15) Left atrial enlargement: Status: Acute (16) HTN (hypertension): Status: Acute (17) Sleep apnea: Status: Acute (18) Alcohol dependency: Status: Acute (19) Alcohol withdrawal syndrome: Status: Acute (20) Seroma due to trauma: Status: Acute (21) Abscess: Status: Acute (22) Difficulty breathing: Status: Acute Assessment and Plan: Basically doing very well in recovering from this event except for persistent encephalopathy still does not demonstrate more advanced cognitive function such as executive function of ability to talk converse etc. Will continue to support with continue tube feeding and respiratory therapy with trach care and pulmonary toileting Time Spent With Patient Time: Total time spent is greater than 50% in coordination of care (as documented) at patient's floor/unit and/or counseling patient: Total time spent with greater than 50% in coordination of care (as documented) at patient's floor/unit and/or counseling patient:: 30
--- NOTE | 2020-06-28 17:17 | PC.NURSE ---
Patient remains on 35% fi02 via cool aerosol trach collar with o2 sats trending in the mid 90s. Trach suctioned several times throughout shift to remove a moderate to large amount of thick loaiza secretions with mucous plug expelled. Passy [place] valve applied. Patient able to speak short sentence and able to answer simple questions at time. Patient disoriented to place, time and situation. Frequent orientation and explanation of care needed. Patient asking for water, per MD patient given a few ice cubes, tolerated well, mouth care provided q2h and prn. Speech consultation placed. Tolerating PEG tube feeds. Male external catheter applied, urine output trending around 60 cc/hr. BM today.
[2020-06-28] MEDS: Chlorhexidine Gluc Oral Rinse 15 ML MOUTHWASH BUCCAL (20:13)
[2020-06-28] MEDS: oxyCODONE HCl Immed Release 5 MG TABLET G-TUBE (23:26)
[2020-06-29] VITALS (26 sets, daily range): BP systolic 122–167; BP diastolic 62–86; PULSE 70–100; RESP 13–28; TEMP 36.6–37.6; O2SAT 90–99
[2020-06-29 06:10] LABS: MANUAL DIFF FLAG NO
[2020-06-29 06:12] LABS: Basophils Absolute Auto 0.1 X10*3/uL (0.0-0.2); Basophils Percent Auto 0.7 % (0-2); Eosinophils Absolute Auto 0.3 X10*3/uL (0.0-0.4); Eosinophils Percent Auto 2.1 % (0-4); Hematocrit 37.5 % (42-52); Hemoglobin 11.7 g/dl (14.0-18.0); Imm Gran Abs Auto 0.08 X10*3/uL (0.00-0.03); Imm Gran Pct Auto 0.5 % (0.0-0.4); Lymphocytes Absolute Auto 2.6 X10*3/uL (1.2-4.9); Lymphocytes Percent Auto 17.2 % (20-40); Mean Corpuscular HGB Conc 31.2 g/dl (31.0-36.0); Mean Corpuscular Hemoglobin 31.7 pg (27.0-33.0); Mean Corpuscular Volume 101.6 fL (80-98); Mean Platelet Volume 12.6 fL (9.4-12.4); Monocytes Percent Auto 6.5 % (2-11); Platelet Count 531 X10*3/uL (160-400); Red Blood Count 3.69 X10*6/uL (4.60-5.80); Red Cell Distribution Width 14.6 % (11.0-16.0)
[2020-06-29 06:29] LABS: HCO3 VBG 39 mmol/L; Oxygen Saturation VBG 83.5 %; PCO2 VBG 58 mmhg; PO2 VBG 49 mmhg; pH VBG 7.45 (7.32-7.43)
[2020-06-29 06:39] LABS: Albumin Level 3.1 g/dL (3.5-5.0); Anion Gap 16 (12-20); Blood Urea Nitrogen 34 mg/dL (9-16); Calcium 8.6 mg/dL (8.4-10.2); Carbon Dioxide 34 mmol/L (22-29); Chloride 98 mmol/L (96-108); Creatinine Clr Calc Pharmacy 130.5; Estimated Glomerular Filt Rate > 60; Glucose Random 169 mg/dL (60-115); Phosphorus 4.3 mg/dL (2.7-4.5); Potassium 4.7 mmol/l (3.3-5.1); Sodium 143 mmol/L (135-145)
[2020-06-29 07:00] LABS: B Type Natriuretic Peptide 874 pg/mL (<100)
[2020-06-29] MEDS: Spironolactone 25 MG TABLET PO (08:11)
[2020-06-29] MEDS: 0.9 % Sodium Chloride Flush 3 ML SYRINGE IVFLUSH ×3 (08:11→20:23)
[2020-06-29] MEDS: Metoprolol Tartrate 25 MG TABLET PO ×2 (08:12→20:23)
[2020-06-29] MEDS: lisinopriL 40 MG TABLET PO (08:12)
[2020-06-29] MEDS: Furosemide 40 MG TABLET PO (08:12)
[2020-06-29] MEDS: Apixaban 5 MG TABLET G-TUBE ×2 (08:12→20:23)
[2020-06-29] MEDS: Chlorhexidine Gluc Oral Rinse 15 ML MOUTHWASH BUCCAL ×3 (08:12→20:23)
[2020-06-29] MEDS: Digoxin 0.25 MG TABLET G-TUBE (08:12)
[2020-06-29 08:46] LABS: Base Excess VBG 9.9 mmol/L; HCO3 VBG 36 mmol/L; Oxygen Saturation VBG 74.6 %; PCO2 VBG 56 mmhg; PO2 VBG 41 mmhg; pH VBG 7.43 (7.32-7.43)
--- NOTE | 2020-06-29 13:21 | P.PNCC_ITS ---
Subjective Subjective Date of Service: 06/29/20 Interval History: 60-year-old status post cardiac arrest in 15 minutes CPR following it is it initial admission for alcohol withdrawal on phenobarbital he became uremic and an uric fluid overloaded and profoundly acidotic leading to his arrest and following prolonged intubation tracheostomy and PEG tube replaced and he hit his dialysis requiring renal failure has resolved and he has a compensated cardiomyopathy with mild reduction of systolic and diastolic reserve and chlorine Dorinda in a controlled but persistent atrial fibrillation and the only thing that represents persistent issue is his encephalopathy Now he is awake and he does track and he does have some verbalizing but still is a significant reduction of cognitive function most especially executive function His fever of unknown origin has finally resolved and in retrospect likely to be drug fever from the cephalosporin Physical Exam Vital Signs: Vital Signs: Last Vital Signs Temp 98.7 F 06/29/20 08:00 Pulse 86 06/29/20 12:00 Resp 22 H 06/29/20 12:00 BP 122/65 06/29/20 12:00 Pulse Ox 99 06/29/20 12:00 Body Mass Index 31.1 Const: Other: Awake with persistent degree of encephalopathy Nonfocal neurologic Skin intact Persistent AFib and controlled but good bilateral carotid upstrokes and no gallops Abdomen benign with no organomegaly and good bowel sounds tolerating feedings Chest percusses equally Objective Data Labs CBC & Chem 7: 06/29/20 05:27 06/29/20 05:27 Labs: Laboratory Results - last 24 hr 06/29/20 06/29/20 06/29/20 05:27 05:27 05:27 WBC 15.0 H RBC 3.69 L Hgb 11.7 L Hct 37.5 L MCV 101.6 H MCH 31.7 MCHC 31.2 RDW 14.6 Plt Count 531 H MPV 12.6 H Immature Gran % (Auto) 0.5 H Neut % (Auto) 73.0 Lymph % (Auto) 17.2 L [place] % (Auto) 6.5 Eos % (Auto) 2.1 Baso % (Auto) 0.7 Lymph # (Auto) 2.6 [place] # (Auto) 1.0 Eos # (Auto) 0.3 Baso # (Auto) 0.1 Abs Immat Gran (auto) 0.08 H Absolute Neuts (auto) 11.0 H Absolute Nucleated RBC 0.000 Nucleated RBC % (auto) 0.0 VBG pH VBG pCO2 VBG pO2 VBG HCO3 VBG O2 Saturation VBG Base Excess Sodium 143 Potassium 4.7 Chloride 98 Carbon Dioxide 34 H Anion Gap 16 BUN 34 H Creatinine 0.76 Estim Creat Clear Calc 130.5 Estimated GFR > 60 Random Glucose 169 H Calcium 8.6 D Phosphorus 4.3 Magnesium 2.0 B-Natriuretic Peptide 874 H Albumin 3.1 L 06/29/20 06/29/20 05:27 08:30 WBC RBC Hgb Hct MCV MCH MCHC RDW Plt Count MPV Immature Gran % (Auto) Neut % (Auto) Lymph % (Auto) [place] % (Auto) Eos % (Auto) Baso % (Auto) Lymph # (Auto) [place] # (Auto) Eos # (Auto) Baso # (Auto) Abs Immat Gran (auto) Absolute Neuts (auto) Absolute Nucleated RBC Nucleated RBC % (auto) VBG pH 7.45 H 7.43 VBG pCO2 58 56 VBG pO2 49 41 VBG HCO3 39 36 VBG O2 Saturation 83.5 74.6 VBG Base Excess 13.0 9.9 Sodium Potassium Chloride Carbon Dioxide Anion Gap BUN Creatinine Estim Creat Clear Calc Estimated GFR Random Glucose Calcium Phosphorus Magnesium B-Natriuretic Peptide Albumin Microbiology Microbiology Results: Microbiology 06/27/20 08:40 Sputum - Expectorated Gram Stain - Final 06/27/20 08:40 Sputum - Expectorated Sputum Culture - Final 06/26/20 19:31 Blood - Venous Blood Culture - Preliminary No growth after 48 hours. 06/26/20 19:37 Blood - Venous Blood Culture - Preliminary No growth after 48 hours. 06/26/20 20:37 Urine [place] Urine Culture - Final No growth. 06/25/20 00:48 Blood - Venous Blood Culture - Preliminary No growth after 48 hours. 06/25/20 00:45 Blood - Venous Blood Culture - Preliminary No growth after 48 hours. 06/20/20 17:59 Blood - Venous Blood Culture - Final No growth after 5 days. 06/20/20 17:52 Blood - Venous Blood Culture - Final No growth after 5 days. 06/23/20 Unknown Sputum - Induced Gram Stain - Final 06/23/20 Unknown Sputum - Induced Sputum Culture - Final 06/23/20 12:52 Urine [place] Urine Culture - Final No growth. 06/16/20 18:53 Bronch Lll - Bronchial Fungal Identification - Preliminary No growth to date. 06/17/20 06:12 Blood - Venous Blood Culture - Final No growth after 5 days. 06/17/20 06:08 Blood - Venous Blood Culture - Final No growth after 5 days. 06/16/20 18:53 Bronch Lll - Bronchial Gram Stain - Final 06/16/20 18:53 Bronch Lll - Bronchial Routine Culture - Final Escherichia coli 06/18/20 10:08 Sputum - Suctioned Gram Stain - Final 06/18/20 10:08 Sputum - Suctioned Sputum Culture - Final Escherichia coli 06/09/20 13:11 Stool Stool Culture - Final 06/05/20 03:40 Blood - Venous Blood Culture - Final No growth after 5 days. 06/05/20 03:36 Blood - Venous Blood Culture - Final No growth after 5 days. 06/04/20 11:45 Blood - Venous Blood Culture - Final No growth after 5 days. 06/04/20 11:45 Blood - Venous Blood Culture - Final No growth after 5 days. 06/05/20 03:31 Sputum - Suctioned Gram Stain - Final 06/05/20 03:31 Sputum - Suctioned Sputum Culture - Final 06/04/20 11:35 Urine Catheterized - Powers Catheter Urine Culture - Final No growth. Progress Note: A&P Assessment and plan (1) Fever of unknown origin: Status: Acute (2) Acute and chronic respiratory failure with hypoxia: Status: Acute (3) Dermatitis, unspecified: Problem details: Coccygeal skin breakdown with moisture harboring Status: Acute (4) Diastolic CHF, acute on chronic: Status: Acute (5) Pleural effusion: Status: Acute (6) Rib fractures: Status: Acute (7) Community acquired pneumonia, bilateral: Status: Acute (8) Cardiac arrest with successful resuscitation: Status: Acute (9) Acute kidney failure: Problem details: Due to ATN Renal fx is improving No indication for HD today Watch UO and labs Status: Acute (10) Obesity hypoventilation syndrome: Status: Acute (11) CHF (congestive heart failure): Status: Acute (12) Encephalopathy: Status: Acute (13) Restrictive lung disease secondary to obesity: Problem details: on CPAP and duonebs at home Status: Acute (14) Persistent atrial fibrillation: Status: Acute (15) Left atrial enlargement: Status: Acute (16) HTN (hypertension): Status: Acute (17) Sleep apnea: Status: Acute (18) Alcohol dependency: Status: Acute (19) Alcohol withdrawal syndrome: Status: Acute (20) Seroma due to trauma: Status: Acute (21) Abscess: Status: Acute (22) Difficulty breathing: Status: Acute Assessment and Plan: So at this point we just continue getting him out of bed continued feeding and tracheostomy needs to be switched out from make a cuffed to a noncuffed the trach and the arrange for and an outpatient long-term facility Time Spent With Patient Time: Total time spent is greater than 50% in coordination of care (as documented) at patient's floor/unit and/or counseling patient: Total time spent with greater than 50% in coordination of care (as documented) at patient's floor/unit and/or counseling patient:: 30
--- NOTE | 2020-06-29 19:33 | PC.NURSE ---
AFEBRILE, VSS. 28% COOL AEROSOL TRACH MASK. TRACH CARE AND INNER CANNULA CHANGED. JHAVERI WNL. RECTAL TUBE REMOVED - OUTPUT 150 ML, LIQUID BROWN. OOB TO RECLINER FROM [id number]. BATHED, SHAVED, SHAMPOOED, FREQUENT ORAL CARE GIVEN. BEDSIDE SWALLOW EVAL PERFORMED BY S&H - FAILED, WILL RETRY TOMORROW. Q2H REPO, BARRIER CREAM, AND PREVALON MATTRESS UTILIZED. FAMILY UPDATED BY THIS RN.
[2020-06-29] MEDS: oxyCODONE HCl Immed Release 5 MG TABLET G-TUBE (20:23)
[2020-06-30] VITALS (19 sets, daily range): BP systolic 122–159; BP diastolic 54–76; PULSE 76–97; RESP 13–28; TEMP 36.9–37; O2SAT 90–98
[2020-06-30] MEDS: LORazepam 2 MG/ML VIAL 1 MG IVPUSH (00:50)
[2020-06-30] MEDS: Morphine Sulfate 2 MG/ML CARTRIDGE IVPUSH (01:19)
[2020-06-30 05:26] LABS: MANUAL DIFF FLAG NO
[2020-06-30 05:32] LABS: Basophils Absolute Auto 0.1 X10*3/uL (0.0-0.2); Basophils Percent Auto 0.5 % (0-2); Eosinophils Absolute Auto 0.3 X10*3/uL (0.0-0.4); Eosinophils Percent Auto 1.5 % (0-4); Hematocrit 35.9 % (42-52); Hemoglobin 11.3 g/dl (14.0-18.0); Imm Gran Pct Auto 0.6 % (0.0-0.4); Lymphocytes Absolute Auto 2.7 X10*3/uL (1.2-4.9); Lymphocytes Percent Auto 15.6 % (20-40); Mean Corpuscular HGB Conc 31.5 g/dl (31.0-36.0); Mean Corpuscular Hemoglobin 32.1 pg (27.0-33.0); Mean Platelet Volume 12.3 fL (9.4-12.4); Monocytes Absolute Auto 1.1 X10*3/uL (0.1-1.2); Neutrophils Absolute Auto 13.2 X10*3/uL (2.0-8.3); Neutrophils Percent Auto 75.8 % (45-73); Platelet Count 521 X10*3/uL (160-400); Red Blood Count 3.52 X10*6/uL (4.60-5.80); Red Cell Distribution Width 14.7 % (11.0-16.0); White Blood Count 17.4 X10*3/uL (4.8-10.8)
[2020-06-30 05:39] LABS: Base Excess VBG 6.9 mmol/L; HCO3 VBG 33 mmol/L; PCO2 VBG 53 mmhg; PO2 VBG 41 mmhg; pH VBG 7.42 (7.32-7.43)
[2020-06-30 05:40] LABS: Oxygen Saturation VBG 73.6 %
[2020-06-30 05:54] LABS: Albumin Level 3.1 g/dL (3.5-5.0); Anion Gap 13 (12-20); Blood Urea Nitrogen 36 mg/dL (9-16); Calcium 8.9 mg/dL (8.4-10.2); Carbon Dioxide 37 mmol/L (22-29); Chloride 97 mmol/L (96-108); Creatinine Clr Calc Pharmacy 130.5; Estimated Glomerular Filt Rate > 60; Glucose Random 165 mg/dL (60-115); Magnesium 2.1 mg/dL (1.6-2.6); Phosphorus 4.1 mg/dL (2.7-4.5); Potassium 4.3 mmol/l (3.3-5.1); Sodium 143 mmol/L (135-145)
[2020-06-30 06:03] LABS: B Type Natriuretic Peptide 805 pg/mL (<100)
[2020-06-30 08:04] LABS: Base Excess VBG 13.8 mmol/L; HCO3 VBG 40 mmol/L; Oxygen Saturation VBG 93.4 %; PCO2 VBG 54 mmhg; PO2 VBG 68 mmhg; pH VBG 7.48 (7.32-7.43)
[2020-06-30] MEDS: 0.9 % Sodium Chloride Flush 3 ML SYRINGE IVFLUSH ×3 (08:21→23:25)
[2020-06-30] MEDS: Digoxin 0.25 MG TABLET G-TUBE (08:22)
[2020-06-30] MEDS: Metoprolol Tartrate 25 MG TABLET PO ×2 (08:23→23:24)
[2020-06-30] MEDS: Spironolactone 25 MG TABLET PO (08:23)
[2020-06-30] MEDS: Furosemide 40 MG TABLET PO (08:23)
[2020-06-30] MEDS: lisinopriL 40 MG TABLET PO (08:23)
[2020-06-30] MEDS: Apixaban 5 MG TABLET G-TUBE ×2 (08:23→23:25)
[2020-06-30] MEDS: Chlorhexidine Gluc Oral Rinse 15 ML MOUTHWASH BUCCAL ×3 (08:23→23:25)
[2020-06-30] MEDS: oxyCODONE HCl Immed Release 5 MG TABLET G-TUBE (08:25)
--- NOTE | 2020-06-30 11:07 | MHC.CLN ---
F/U PT TOLERATING PROMOTE AT MAX GOAL 75CC/HR WITH 120CC FREE WATER Q 6HRS PROVIDES 1800KCALS (23KCALS/KG BASED ON IBW), 112.5G PROTEIN (1.4G/KG), 1990CC TOTAL WATER FROM FORMULA AND FLUSHES (25CC/KG BASED ON IBW) MONITOR TOLERANCE, RESIDUALS AND LYTES FOLLOWING
--- NOTE | 2020-06-30 13:41 | P.PNCC_ITS ---
Subjective Subjective Date of Service: 06/30/20 Interval History: 60-year-old gentleman with underlying history of obesity, MJ on CPAP, hypertension, alcohol abuse admitted 05/29/2020 with alcohol withdrawal and treated with phenobarbital alcohol withdrawal protocol with hospital course complicated by cardiopulmonary arrest on 06/04/2020, intubated during the CPR, and transferred to intensive care unit. Further hospital course significant for right-sided congestive heart failure improving with diuresis, encephalopathy with poor arousal during sedation vacation, and AFib. Patient is status post placement of tracheostomy and parenteral gastrostomy on 06/16/2020. Now with slowly improving encephalopathy. He has been titrated to tracheal collar and has been able to tolerated for over 48 hours. No events overnight. Physical Exam Vital Signs: Vital Signs: Last Vital Signs Temp 98.6 F 06/30/20 08:00 Pulse 80 06/30/20 12:00 Resp 19 06/30/20 12:00 BP 136/62 06/30/20 12:00 Pulse Ox 97 06/30/20 12:00 Body Mass Index 31.1 Const: General: no acute distress, awake and confusion Orientation/consciousness: confusion Eyes: Sclerae: sclerae normal EOM: EOMs intact bilaterally Neck: Neck: Yes no lymphadenopathy, Yes supple and Yes other (Tracheostomy on tracheal collar) Resp: Effort & Inspection: normal respiratory effort and no respiratory distress Auscultation: clear to auscultation bilaterally Cardio: Rate: regular rate Rhythm: abnormal rhythm irregularly irregular Heart sounds: no gallops, no murmurs and no rubs GI: Palpation (GI): Soft to palpation and Other GI palpation findings present ( Nontender) Auscultation: normal bowel sounds Neuro: General: confusion Extrem: General: No clubbing, No cyanosis and Yes edema (Trace bilateral) Objective Data Labs CBC & Chem 7: 06/30/20 05:11 06/30/20 05:11 Labs: Laboratory Results - last 24 hr 06/30/20 06/30/20 06/30/20 05:11 05:11 05:11 WBC 17.4 H RBC 3.52 L Hgb 11.3 L Hct 35.9 L MCV 102.0 H MCH 32.1 MCHC 31.5 RDW 14.7 Plt Count 521 H MPV 12.3 Immature Gran % (Auto) 0.6 H Neut % (Auto) 75.8 H Lymph % (Auto) 15.6 L [place] % (Auto) 6.0 Eos % (Auto) 1.5 Baso % (Auto) 0.5 Lymph # (Auto) 2.7 [place] # (Auto) 1.1 Eos # (Auto) 0.3 Baso # (Auto) 0.1 Abs Immat Gran (auto) 0.10 H Absolute Neuts (auto) 13.2 H Absolute Nucleated RBC 0.000 Nucleated RBC % (auto) 0.0 VBG pH VBG pCO2 VBG pO2 VBG HCO3 VBG O2 Saturation VBG Base Excess Sodium 143 Potassium 4.3 Chloride 97 Carbon Dioxide 37 H Anion Gap 13 BUN 36 H Creatinine 0.76 Estim Creat Clear Calc 130.5 Estimated GFR > 60 Random Glucose 165 H Calcium 8.9 Phosphorus 4.1 Magnesium 2.1 B-Natriuretic Peptide 805 H Albumin 3.1 L 06/30/20 06/30/20 05:11 07:26 WBC RBC Hgb Hct MCV MCH MCHC RDW Plt Count MPV Immature Gran % (Auto) Neut % (Auto) Lymph % (Auto) [place] % (Auto) Eos % (Auto) Baso % (Auto) Lymph # (Auto) [place] # (Auto) Eos # (Auto) Baso # (Auto) Abs Immat Gran (auto) Absolute Neuts (auto) Absolute Nucleated RBC Nucleated RBC % (auto) VBG pH 7.42 7.48 H VBG pCO2 53 54 VBG pO2 41 68 VBG HCO3 33 40 VBG O2 Saturation 73.6 93.4 VBG Base Excess 6.9 13.8 Sodium Potassium Chloride Carbon Dioxide Anion Gap BUN Creatinine Estim Creat Clear Calc Estimated GFR Random Glucose Calcium Phosphorus Magnesium B-Natriuretic Peptide Albumin Microbiology Microbiology Results: Microbiology 06/16/20 18:53 Bronch Lll - Bronchial Fungal Identification - Preliminary No growth after 1 week. 06/25/20 00:48 Blood - Venous Blood Culture - Final No growth after 5 days. 06/25/20 00:45 Blood - Venous Blood Culture - Final No growth after 5 days. 06/27/20 08:40 Sputum - Expectorated Gram Stain - Final 06/27/20 08:40 Sputum - Expectorated Sputum Culture - Final 06/26/20 19:31 Blood - Venous Blood Culture - Preliminary No growth after 48 hours. 06/26/20 19:37 Blood - Venous Blood Culture - Preliminary No growth after 48 hours. 06/26/20 20:37 Urine [place] Urine Culture - Final No growth. 06/20/20 17:59 Blood - Venous Blood Culture - Final No growth after 5 days. 06/20/20 17:52 Blood - Venous Blood Culture - Final No growth after 5 days. 06/23/20 Unknown Sputum - Induced Gram Stain - Final 06/23/20 Unknown Sputum - Induced Sputum Culture - Final 06/23/20 12:52 Urine [place] Urine Culture - Final No growth. 06/17/20 06:12 Blood - Venous Blood Culture - Final No growth after 5 days. 06/17/20 06:08 Blood - Venous Blood Culture - Final No growth after 5 days. 06/16/20 18:53 Bronch Lll - Bronchial Gram Stain - Final 06/16/20 18:53 Bronch Lll - Bronchial Routine Culture - Final Escherichia coli 06/18/20 10:08 Sputum - Suctioned Gram Stain - Final 06/18/20 10:08 Sputum - Suctioned Sputum Culture - Final Escherichia coli 06/09/20 13:11 Stool Stool Culture - Final 06/05/20 03:40 Blood - Venous Blood Culture - Final No growth after 5 days. 06/05/20 03:36 Blood - Venous Blood Culture - Final No growth after 5 days. 06/04/20 11:45 Blood - Venous Blood Culture - Final No growth after 5 days. 06/04/20 11:45 Blood - Venous Blood Culture - Final No growth after 5 days. 06/05/20 03:31 Sputum - Suctioned Gram Stain - Final 06/05/20 03:31 Sputum - Suctioned Sputum Culture - Final 06/04/20 11:35 Urine Catheterized - Powers Catheter Urine Culture - Final No growth. Progress Note: A&P Assessment and plan (1) Acute and chronic respiratory failure with hypoxia: Status: Acute Assessment and Plan: Assessment: 60-year-old gentleman with underlying morbid obesity, MJ/obesity hyperventilation syndrome alcoholism admitted on 05/29/2020 with alcohol withdrawal with hospital course complicated by cardiopulmonary arrest status post successful resuscitation, intubated during CPR, further complicated by en cephalopathy and atrial fibrillation. Status post PEG and trach on 06/16/2020. Plan: Neuro: Encephalopathy, post cardiac arrest with critical care encephalopathy component, very slowly improving. Repeat MRI head on 06/14/2020 negative for an acute process. Cardiac: Acute on chronic right-sided congestive heart failure improved with diuresis. Continue with baseline diuretic. AFib, continue with rate control and anticoagulation. Pulmonary: Acute hypoxic respiratory failure, intubated during the CPR. Status post tracheostomy on 06/16/2020. Will require tracheostomy change in the next few days. Renal: No acute issues. Endo: No acute issues. GI: No acute issues. Status post parenteral gastrostomy on 06/16/2020. ID: No acute issues Heme/Onc: No acute issues. Psych: No acute issues. Miscellaneous: No acute issues. Prophylaxis: Eliquis Diet: Tube feeds Critical care time spent: 0 (2) Diastolic CHF, acute on chronic: Status: Acute (3) Obesity hypoventilation syndrome: Status: Acute (4) Cardiac arrest with successful resuscitation: Status: Acute (5) Afib: Status: Acute Time Spent With Patient Time: Total time spent is greater than 50% in coordination of care (as documented) at patient's floor/unit and/or counseling patient: Total time spent with greater than 50% in coordination of care (as documented) at patient's floor/unit and/or counseling patient:: 45
--- NOTE | 2020-06-30 14:23 | MHC.CM.PN ---
Patient currently in ICU but will be transferred to [facility]. Patient has been off the vent and on a trach collar for over 48 hours. T/W reached out to [facility] to see if they would still be able to accept patient. Waiting for callback. If [facility] is not able to accept patient, anticipate a mcc facility will be needed. However, trach will need to be in place for 30 days before SNF will accept patient. Patient's current trach is a Portex #8. Continue to monitor for d/c needs.
[2020-07-01] VITALS (10 sets, daily range): BP systolic 141–163; BP diastolic 73–100; PULSE 71–105; RESP 15–24; TEMP 36.4–37.2; O2SAT 90–100
[2020-07-01 06:48] LABS: MANUAL DIFF FLAG NO
[2020-07-01 06:51] LABS: Base Excess VBG 13.3 mmol/L; HCO3 VBG 40 mmol/L; PCO2 VBG 60 mmhg; PO2 VBG 37 mmhg; pH VBG 7.44 (7.32-7.43)
[2020-07-01 06:58] LABS: Basophils Absolute Auto 0.1 X10*3/uL (0.0-0.2); Basophils Percent Auto 0.5 % (0-2); Eosinophils Absolute Auto 0.2 X10*3/uL (0.0-0.4); Eosinophils Percent Auto 1.2 % (0-4); Hematocrit 40.6 % (42-52); Hemoglobin 12.6 g/dl (14.0-18.0); Imm Gran Abs Auto 0.09 X10*3/uL (0.00-0.03); Imm Gran Pct Auto 0.6 % (0.0-0.4); Lymphocytes Absolute Auto 2.3 X10*3/uL (1.2-4.9); Lymphocytes Percent Auto 15.3 % (20-40); Mean Corpuscular Hemoglobin 31.4 pg (27.0-33.0); Mean Corpuscular Volume 101.2 fL (80-98); Mean Platelet Volume 12.7 fL (9.4-12.4); Monocytes Absolute Auto 0.9 X10*3/uL (0.1-1.2); Monocytes Percent Auto 6.1 % (2-11); Neutrophils Absolute Auto 11.6 X10*3/uL (2.0-8.3); Neutrophils Percent Auto 76.3 % (45-73); Platelet Count 457 X10*3/uL (160-400); Red Blood Count 4.01 X10*6/uL (4.60-5.80); Red Cell Distribution Width 14.4 % (11.0-16.0); White Blood Count 15.2 X10*3/uL (4.8-10.8)
[2020-07-01 07:13] LABS: Albumin Level 3.1 g/dL (3.5-5.0); Anion Gap 18 (12-20); Blood Urea Nitrogen 34 mg/dL (9-16); Calcium 9.1 mg/dL (8.4-10.2); Carbon Dioxide 34 mmol/L (22-29); Chloride 98 mmol/L (96-108); Creatinine Clr Calc Pharmacy 130.5; Estimated Glomerular Filt Rate > 60; Glucose Random 149 mg/dL (60-115); Potassium 4.8 mmol/l (3.3-5.1); Sodium 145 mmol/L (135-145)
--- NOTE | 2020-07-01 07:29 | PC.NURSE ---
Shift eval 7p-7a: Patient tolerating 28% aerosol mask - trach - 8 portex, inflated cuff, put on passe foster valve, patient requesting vodka. Stoma intact. Sucationed 2x, last @ 0600 for mod amt thick cream secretions. Patient needs to be encouraged to participate w/ care. 2x smear of stool. pain w/ movement. Vitals stable. Tolerating tube feed @ 75ml/hr.
[2020-07-01 07:33] LABS: Digoxin 1.5 ng/mL (0.8-2.0)
[2020-07-01] MEDS: Spironolactone 25 MG TABLET PO (08:22)
[2020-07-01] MEDS: Apixaban 5 MG TABLET G-TUBE ×2 (08:22→22:55)
[2020-07-01] MEDS: Chlorhexidine Gluc Oral Rinse 15 ML MOUTHWASH BUCCAL ×3 (08:22→22:55)
[2020-07-01] MEDS: lisinopriL 40 MG TABLET PO (08:23)
[2020-07-01] MEDS: Metoprolol Tartrate 25 MG TABLET PO ×2 (08:23→22:55)
[2020-07-01] MEDS: Digoxin 0.25 MG TABLET G-TUBE (08:23)
[2020-07-01] MEDS: Furosemide 40 MG TABLET PO (08:24)
[2020-07-01] MEDS: 0.9 % Sodium Chloride Flush 3 ML SYRINGE IVFLUSH ×3 (08:24→22:57)
--- NOTE | 2020-07-01 11:29 | MHC.SLORD ---
[address] [address] Speech & Hearing [phone] Name: Esteban Galindo Date of : 1960 Age: 60 Date of Registration: 05/30/20 WELDER/INSTALLER attempted to see pt this morning with respiratory therapist present. Pt refused oral care and PO trials. He was observed to cover his mouth with his hand when WELDER/INSTALLER would try to swab oral cavity. Pt continues to tolerate cuff deflated with minimal suctioning required. Pt requested his [place] valve be placed so that he could communicate orally. Pt produced unintelligible vocalizations. WELDER/INSTALLER will re-attempt PO trials tomorrow morning. Speech Language Pathology Order Status:
--- NOTE | 2020-07-01 12:28 | P.PNIM_ITS ---
Subjective Subjective Date of Service: 07/01/20 Interval History: No new events Awaiting LTACH placement Neurologic Neurologic: Reports confusion Psychiatric Psychiatric: Reports confusion Physical Exam Vital Signs: Vital Signs: Last Vital Signs Temp 97.6 F 07/01/20 11:59 Pulse 73 07/01/20 11:59 Resp 19 07/01/20 11:59 BP 151/73 H 07/01/20 11:59 Pulse Ox 96 07/01/20 11:59 Body Mass Index 31.1 Const: General: no acute distress and confusion Orientation/consciousness: confusion Neck: Other: tracheostomy to trach collar Neck: Yes supple Resp: Effort & Inspection: normal respiratory effort Auscultation: clear to auscultation bilaterally Cardio: Rate: regular rate and Other (irregular) Heart sounds: no murmurs GI: Other: PEG tube Palpation (GI): nontender : General: Yes other (Powers draining clear yellow urine) Neuro: General: confusion Objective Data Current Medications Generic Name Dose Route Start Last Admin Trade Name Freq PRN Reason Stop Dose Admin Apixaban 5 mg 06/18/20 14:30 07/01/20 08:22 Apixaban 5 Mg Tablet G-TUBE 5 mg BID JESSICA Administration Chlorhexidine Gluconate 15 ml 06/05/20 02:00 07/01/20 08:22 Chlorhexidine Gluc Oral Rinse 15 Ml Mouthwash BUCCAL 15 ml TID JESSICA Administration Digoxin 0.25 mg 06/21/20 09:00 07/01/20 08:23 Digoxin 0.25 Mg Tablet G-TUBE 0.25 mg DAILY JESSICA Administration Furosemide 40 mg 06/27/20 09:00 07/01/20 08:24 Furosemide 40 Mg Tablet PO 40 mg DAILY JESSICA Administration Protocol Lisinopril 40 mg 06/13/20 09:00 07/01/20 08:23 Lisinopril 40 Mg Tablet PO 40 mg DAILY JESSICA Administration Protocol Metoprolol Tartrate 25 mg 06/21/20 21:00 07/01/20 08:23 Metoprolol Tartrate 25 Mg Tablet PO 25 mg BID JESSICA Administration Protocol Omeprazole 40 mg 06/13/20 09:15 07/01/20 06:24 Omeprazole 20 Mg/10 Ml Susp.Recon PO 40 mg DAILY@0630 JESSICA Administration Oxycodone HCl 5 mg 06/28/20 19:54 06/30/20 08:25 Oxycodone Hcl Immed Release 5 Mg Tablet G-TUBE 5 mg Q6H PRN Administration Pain, Moderate (Pain Scale 4-6 Sodium Chloride 3 ml 05/30/20 08:00 07/01/20 08:24 0.9 % Sodium Chloride Flush 3 Ml Syringe IVFLUSH 3 ml QSHIFT JESSICA Administration Spironolactone 25 mg 06/24/20 11:15 07/01/20 08:22 Spironolactone 25 Mg Tablet PO 25 mg DAILY JESSICA Administration Protocol Labs CBC & Chem 7: 07/01/20 06:03 07/01/20 06:03 Labs: Laboratory Results - last 24 hr 07/01/20 07/01/20 07/01/20 06:03 06:03 06:03 WBC 15.2 H RBC 4.01 L Hgb 12.6 L Hct 40.6 L MCV 101.2 H MCH 31.4 MCHC 31.0 RDW 14.4 Plt Count 457 H MPV 12.7 H Immature Gran % (Auto) 0.6 H Neut % (Auto) 76.3 H Lymph % (Auto) 15.3 L [place] % (Auto) 6.1 Eos % (Auto) 1.2 Baso % (Auto) 0.5 Lymph # (Auto) 2.3 [place] # (Auto) 0.9 Eos # (Auto) 0.2 Baso # (Auto) 0.1 Abs Immat Gran (auto) 0.09 H Absolute Neuts (auto) 11.6 H Absolute Nucleated RBC 0.000 Nucleated RBC % (auto) 0.0 VBG pH 7.44 H VBG pCO2 60 VBG pO2 37 VBG HCO3 40 VBG O2 Saturation 71.0 VBG Base Excess 13.3 Sodium 145 Potassium 4.8 Chloride 98 Carbon Dioxide 34 H Anion Gap 18 BUN 34 H Creatinine 0.76 Estim Creat Clear Calc 130.5 Estimated GFR > 60 Random Glucose 149 H Calcium 9.1 Albumin 3.1 L Digoxin 07/01/20 06:03 WBC RBC Hgb Hct MCV MCH MCHC RDW Plt Count MPV Immature Gran % (Auto) Neut % (Auto) Lymph % (Auto) [place] % (Auto) Eos % (Auto) Baso % (Auto) Lymph # (Auto) [place] # (Auto) Eos # (Auto) Baso # (Auto) Abs Immat Gran (auto) Absolute Neuts (auto) Absolute Nucleated RBC Nucleated RBC % (auto) VBG pH VBG pCO2 VBG pO2 VBG HCO3 VBG O2 Saturation VBG Base Excess Sodium Potassium Chloride Carbon Dioxide Anion Gap BUN Creatinine Estim Creat Clear Calc Estimated GFR Random Glucose Calcium Albumin Digoxin 1.5 Microbiology Microbiology Results: Microbiology 06/16/20 18:53 Bronch Lll - Bronchial Fungal Identification - Preliminary No growth after 1 week. 06/25/20 00:48 Blood - Venous Blood Culture - Final No growth after 5 days. 06/25/20 00:45 Blood - Venous Blood Culture - Final No growth after 5 days. 06/27/20 08:40 Sputum - Expectorated Gram Stain - Final 06/27/20 08:40 Sputum - Expectorated Sputum Culture - Final 06/26/20 19:31 Blood - Venous Blood Culture - Preliminary No growth after 48 hours. 06/26/20 19:37 Blood - Venous Blood Culture - Preliminary No growth after 48 hours. 06/26/20 20:37 Urine [place] Urine Culture - Final No growth. 06/20/20 17:59 Blood - Venous Blood Culture - Final No growth after 5 days. 06/20/20 17:52 Blood - Venous Blood Culture - Final No growth after 5 days. 06/23/20 Unknown Sputum - Induced Gram Stain - Final 06/23/20 Unknown Sputum - Induced Sputum Culture - Final 06/23/20 12:52 Urine [place] Urine Culture - Final No growth. 06/17/20 06:12 Blood - Venous Blood Culture - Final No growth after 5 days. 06/17/20 06:08 Blood - Venous Blood Culture - Final No growth after 5 days. 06/16/20 18:53 Bronch Lll - Bronchial Gram Stain - Final 06/16/20 18:53 Bronch Lll - Bronchial Routine Culture - Final Escherichia coli 06/18/20 10:08 Sputum - Suctioned Gram Stain - Final 06/18/20 10:08 Sputum - Suctioned Sputum Culture - Final Escherichia coli 06/09/20 13:11 Stool Stool Culture - Final 06/05/20 03:40 Blood - Venous Blood Culture - Final No growth after 5 days. 06/05/20 03:36 Blood - Venous Blood Culture - Final No growth after 5 days. 06/04/20 11:45 Blood - Venous Blood Culture - Final No growth after 5 days. 06/04/20 11:45 Blood - Venous Blood Culture - Final No growth after 5 days. 06/05/20 03:31 Sputum - Suctioned Gram Stain - Final 06/05/20 03:31 Sputum - Suctioned Sputum Culture - Final 06/04/20 11:35 Urine Catheterized - Powers Catheter Urine Culture - Final No growth. Assessment and Plan (1) Alcohol withdrawal syndrome: Status: Acute (2) Depression: Status: Inactive (3) HTN (hypertension): Status: Acute (4) Sleep apnea: Status: Acute Assessment and Plan: hospital d#[id number] 60yo M with PMHx EtOH abuse, MJ, HTN, obesity originally admitted for EtOH withdrawal 05/29/20 hospital course complicated by cardiopulmonary arrest 06/04/20, resuscitated + in tubated ICU course complicated by MERLIN requiring temporary HD, drug fever, decompensated R-sided CHF, new-onset AF, and encepahlopathy tracheostomy and PEG tube 06/16/20 weaned to trach collar 06/28/20 stepped down to IMC status 06/30/20 # acute hypoxic respiratory failure - tracheostomy change later this week # acute/chronic R-sided HF - continue digoxin, metoprolol, spironolactone, lisinopril, and furosemide # AF - continue metoprolol and apixaban # MERLIN - resolved # encephalopathy - s/p cardiac arrest + prolonged ICU course. slowly improving. MRI 06/14/20 no acute disease. - tube feeds - originally treated with phenobarbital for EtOh withdrawal + thiamine for suspected Wernicke encephalopathy # dispo - LTACH [alternative, SNF 30d post tracheostomy)
--- NOTE | 2020-07-01 12:37 | MHC.CM.PN ---
Patient remains in ICU with Trach/Peg. Received notification yesterday from [facility] that they are currently closed to admissions. Reached out to [facility] to see if they would be able to accept patient is he is off the vent. If not, retirement facility will be needed. However, patient will not be able to transfer until trach is 30 days old. Continue to monitor for d/c needs.
[2020-07-01] MEDS: oxyCODONE HCl Immed Release 5 MG TABLET G-TUBE (22:56)
[2020-07-02] VITALS (7 sets, daily range): BP systolic 133–160; BP diastolic 66–85; PULSE 79–90; RESP 12–19; TEMP 36.3–36.8; O2SAT 94–100
[2020-07-02 06:34] LABS: MANUAL DIFF FLAG NO
[2020-07-02 06:46] LABS: Basophils Absolute Auto 0.1 X10*3/uL (0.0-0.2); Basophils Percent Auto 0.4 % (0-2); Eosinophils Absolute Auto 0.2 X10*3/uL (0.0-0.4); Eosinophils Percent Auto 1.4 % (0-4); Hematocrit 38.1 % (42-52); Hemoglobin 11.9 g/dl (14.0-18.0); Imm Gran Abs Auto 0.07 X10*3/uL (0.00-0.03); Imm Gran Pct Auto 0.4 % (0.0-0.4); Lymphocytes Absolute Auto 2.6 X10*3/uL (1.2-4.9); Lymphocytes Percent Auto 16.3 % (20-40); Mean Corpuscular HGB Conc 31.2 g/dl (31.0-36.0); Mean Corpuscular Hemoglobin 31.7 pg (27.0-33.0); Mean Corpuscular Volume 101.6 fL (80-98); Mean Platelet Volume 12.4 fL (9.4-12.4); Monocytes Percent Auto 6.4 % (2-11); Neutrophils Percent Auto 75.1 % (45-73); Platelet Count 413 X10*3/uL (160-400); Red Blood Count 3.75 X10*6/uL (4.60-5.80); Red Cell Distribution Width 14.5 % (11.0-16.0)
[2020-07-02 07:08] LABS: Alanine Aminotransferase 33 U/L (0-40); Albumin Level 3.1 g/dL (3.5-5.0); Alkaline Phosphatase 207 U/L (39-117); Anion Gap 16 (12-20); Aspartate Amino Transferase 53 U/L (5-37); Bilirubin Total 0.9 mg/dL (0.0-1.0); Blood Urea Nitrogen 34 mg/dL (9-16); Calcium 9.1 mg/dL (8.4-10.2); Carbon Dioxide 36 mmol/L (22-29); Chloride 97 mmol/L (96-108); Creatinine Clr Calc Pharmacy 127.1; Estimated Glomerular Filt Rate > 60; Glucose Random 158 mg/dL (60-115); Magnesium 2.1 mg/dL (1.6-2.6); Potassium 4.9 mmol/l (3.3-5.1); Sodium 144 mmol/L (135-145); Total Protein 7.9 g/dL (6.5-8.0)
--- NOTE | 2020-07-02 07:42 | PC.NURSE ---
Shift eval 7p-7a: Patient tolerating trach collar / 28% cool aerosol. 8 portex, disposable inner cannula. suctioned x2 for thick cream mod amount of thick sputum. Afebrile. VSS. Patient alert, confused, needs to be redirected frequently. Repos Q2H - 2x incont stool - brown, semi formed. Patient grimaces w/ repos / care - medicated w/ 5mg oxycodone @ 2256 - patient dozed on and off through night.
[2020-07-02] MEDS: fentaNYL citrate/PF 100 MCG/2 ML VIAL 50 MCG IVPUSH (09:29)
[2020-07-02] MEDS: 0.9 % Sodium Chloride Flush 3 ML SYRINGE IVFLUSH ×2 (09:29→14:53)
--- NOTE | 2020-07-02 09:33 | PM.CCN ---
Critical Care Event Note Summary Code activated: No Narrative: Tracheostomy changed to non-fenestrated uncuffed 8.0 Portex. Critical Care Time (minutes): 0
[2020-07-02] MEDS: Apixaban 5 MG TABLET G-TUBE ×2 (09:42→20:04)
[2020-07-02] MEDS: Digoxin 0.25 MG TABLET G-TUBE (09:42)
[2020-07-02] MEDS: Chlorhexidine Gluc Oral Rinse 15 ML MOUTHWASH BUCCAL ×3 (09:42→20:04)
[2020-07-02] MEDS: Furosemide 40 MG TABLET PO (09:43)
[2020-07-02] MEDS: Spironolactone 25 MG TABLET PO (09:43)
[2020-07-02] MEDS: Metoprolol Tartrate 25 MG TABLET PO ×2 (09:43→20:04)
[2020-07-02] MEDS: lisinopriL 40 MG TABLET PO (09:43)
--- NOTE | 2020-07-02 09:43 | MHC.CM.PN ---
Pt transferred to [facility]; for continued care however, he remains in an ICU bed for trach management. Updated referrals to include STR facilities that accept trach pt's. Updates also sent to [facility]. Pt was to transfer to [facility] under [facility] however, they are closed to admissions at this time. CM to follow for accepting facility. L/M for pt's brother/HCP to inform him of plans
[2020-07-02] MEDS: oxyCODONE HCl Immed Release 5 MG TABLET G-TUBE (10:45)
--- NOTE | 2020-07-02 10:57 | MHC.CLN ---
F/U PT TOLERATING PROMOTE AT MAX GOAL 75CC/HR WITH 120CC FREE WATER Q 6HRS PROVIDES 1800KCALS (23KCALS/KG BASED ON IBW), 112.5G PROTEIN (1.4G/KG), 1990CC TOTAL WATER FROM FORMULA AND FLUSHES (25CC/KG BASED ON IBW) CONTINUE TO MONITOR TOLERANCE, RESIDUALS AND LYTES FOLLOWING
--- NOTE | 2020-07-02 14:56 | P.PNIM_ITS ---
Subjective Subjective Date of Service: 07/02/20 Interval History: trach changed to uncuffed more awake, cooperative today Physical Exam Vital Signs: Vital Signs: Last Vital Signs Temp 98.3 F 07/02/20 12:00 Pulse 79 07/02/20 12:00 Resp 15 07/02/20 12:00 BP 155/66 H 07/02/20 12:00 Pulse Ox 100 07/02/20 12:00 Body Mass Index 31.1 Const: General: no acute distress and confusion Orientation/consciousness: confusion Neck: Other: tracheostomy to trach collar Neck: Yes supple Resp: Effort & Inspection: normal respiratory effort Auscultation: clear to auscultation bilaterally Cardio: Rate: regular rate and Other (irregular) Heart sounds: no murmurs GI: Other: PEG tube Palpation (GI): nontender : General: Yes other (Powers draining clear yellow urine) Neuro: General: confusion Objective Data Current Medications Generic Name Dose Route Start Last Admin Trade Name Freq PRN Reason Stop Dose Admin Apixaban 5 mg 06/18/20 14:30 07/02/20 09:42 Apixaban 5 Mg Tablet G-TUBE 5 mg BID JESSICA Administration Chlorhexidine Gluconate 15 ml 06/05/20 02:00 07/02/20 14:53 Chlorhexidine Gluc Oral Rinse 15 Ml Mouthwash BUCCAL 15 ml TID JESSICA Administration Digoxin 0.25 mg 06/21/20 09:00 07/02/20 09:42 Digoxin 0.25 Mg Tablet G-TUBE 0.25 mg DAILY JESSICA Administration Furosemide 40 mg 06/27/20 09:00 07/02/20 09:43 Furosemide 40 Mg Tablet PO 40 mg DAILY JESSICA Administration Protocol Lisinopril 40 mg 06/13/20 09:00 07/02/20 09:43 Lisinopril 40 Mg Tablet PO 40 mg DAILY JESSICA Administration Protocol Metoprolol Tartrate 25 mg 06/21/20 21:00 07/02/20 09:43 Metoprolol Tartrate 25 Mg Tablet PO 25 mg BID JESSICA Administration Protocol Omeprazole 40 mg 06/13/20 09:15 07/02/20 05:51 Omeprazole 20 Mg/10 Ml Susp.Recon PO 40 mg DAILY@0630 JESSICA Administration Oxycodone HCl 5 mg 06/28/20 19:54 07/02/20 10:45 Oxycodone Hcl Immed Release 5 Mg Tablet G-TUBE 5 mg Q6H PRN Administration Pain, Moderate (Pain Scale 4-6 Sodium Chloride 3 ml 05/30/20 08:00 07/02/20 14:53 0.9 % Sodium Chloride Flush 3 Ml Syringe IVFLUSH 3 ml QSHIFT JESSICA Administration Spironolactone 25 mg 06/24/20 11:15 07/02/20 09:43 Spironolactone 25 Mg Tablet PO 25 mg DAILY JESSICA Administration Protocol Labs CBC & Chem 7: 07/02/20 05:52 07/02/20 05:52 Labs: Laboratory Results - last 24 hr 07/02/20 07/02/20 05:52 05:52 WBC 16.0 H RBC 3.75 L Hgb 11.9 L Hct 38.1 L MCV 101.6 H MCH 31.7 MCHC 31.2 RDW 14.5 Plt Count 413 H MPV 12.4 Immature Gran % (Auto) 0.4 Neut % (Auto) 75.1 H Lymph % (Auto) 16.3 L [place] % (Auto) 6.4 Eos % (Auto) 1.4 Baso % (Auto) 0.4 Lymph # (Auto) 2.6 [place] # (Auto) 1.0 Eos # (Auto) 0.2 Baso # (Auto) 0.1 Abs Immat Gran (auto) 0.07 H Absolute Neuts (auto) 12.0 H Absolute Nucleated RBC 0.000 Nucleated RBC % (auto) 0.0 Sodium 144 Potassium 4.9 Chloride 97 Carbon Dioxide 36 H Anion Gap 16 BUN 34 H Creatinine 0.78 Estim Creat Clear Calc 127.1 Estimated GFR > 60 Random Glucose 158 H Calcium 9.1 Magnesium 2.1 Total Bilirubin 0.9 AST 53 H ALT 33 Alkaline Phosphatase 207 H Total Protein 7.9 Albumin 3.1 L Microbiology Microbiology Results: Microbiology 06/26/20 19:31 Blood - Venous Blood Culture - Final No growth after 5 days. 06/26/20 19:37 Blood - Venous Blood Culture - Final No growth after 5 days. 06/16/20 18:53 Bronch Lll - Bronchial Fungal Identification - Preliminary No growth after 1 week. 06/25/20 00:48 Blood - Venous Blood Culture - Final No growth after 5 days. 06/25/20 00:45 Blood - Venous Blood Culture - Final No growth after 5 days. 06/27/20 08:40 Sputum - Expectorated Gram Stain - Final 06/27/20 08:40 Sputum - Expectorated Sputum Culture - Final 06/26/20 20:37 Urine Powers Port Urine Culture - Final No growth. 06/20/20 17:59 Blood - Venous Blood Culture - Final No growth after 5 days. 06/20/20 17:52 Blood - Venous Blood Culture - Final No growth after 5 days. 06/23/20 Unknown Sputum - Induced Gram Stain - Final 06/23/20 Unknown Sputum - Induced Sputum Culture - Final 06/23/20 12:52 Urine [place] Port Urine Culture - Final No growth. 06/17/20 06:12 Blood - Venous Blood Culture - Final No growth after 5 days. 06/17/20 06:08 Blood - Venous Blood Culture - Final No growth after 5 days. 06/16/20 18:53 Bronch Lll - Bronchial Gram Stain - Final 06/16/20 18:53 Bronch Lll - Bronchial Routine Culture - Final Escherichia coli 06/18/20 10:08 Sputum - Suctioned Gram Stain - Final 06/18/20 10:08 Sputum - Suctioned Sputum Culture - Final Escherichia coli 06/09/20 13:11 Stool Stool Culture - Final 06/05/20 03:40 Blood - Venous Blood Culture - Final No growth after 5 days. 06/05/20 03:36 Blood - Venous Blood Culture - Final No growth after 5 days. 06/04/20 11:45 Blood - Venous Blood Culture - Final No growth after 5 days. 06/04/20 11:45 Blood - Venous Blood Culture - Final No growth after 5 days. 06/05/20 03:31 Sputum - Suctioned Gram Stain - Final 06/05/20 03:31 Sputum - Suctioned Sputum Culture - Final 06/04/20 11:35 Urine Catheterized - Powers Catheter Urine Culture - Final No growth. Assessment and Plan (1) Alcohol withdrawal syndrome: Status: Acute (2) Depression: Status: Inactive (3) HTN (hypertension): Status: Acute (4) Sleep apnea: Status: Acute Assessment and Plan: hospital d#34 60yo M with PMHx EtOH abuse, MJ, HTN, obesity originally admitted for EtOH withdrawal 05/29/20 hospital course complicated by cardiopulmonary arrest 06/04/20, resuscitated + intubated ICU course complicated by [facility] requiring temporary HD, drug fever, decompensated R-sided CHF, new-onset AF, and encepahlopathy tracheostomy and PEG tube 06/16/20 weaned to trach collar 06/28/20 stepped down to IMC status 06/30/20 changed to uncuffed trach 07/02/20 # acute hypoxic respiratory failure - now trach dependent, on trach collar # acute/chronic R-sided HF - continue digoxin, metoprolol, spironolactone, lisinopril, and furosemide [maintenance]; appears euvolemic # AF - continue metoprolol and apixaban # [facility] requiring HD - resolved # encephalopathy - s/p cardiac arrest + prolonged ICU course. slowly improving. MRI 06/14/20 no acute disease. - tube feeds - originally treated with phenobarbital for EtOH withdrawal + thiamine for suspected Wernicke encephalopathy, resolved # dispo - LTACH [alternative, SNF 30d post tracheostomy)
--- NOTE | 2020-07-02 16:53 | PC.NURSE ---
ALERT TO NAME CALLED, OCCASIONALLY FOLLOWS COMMANDS. AFEBRILE. VSS. TRACH CHANGED TO CUFFLESS, 8.0 PORTEX, ON 28% COOL AEROSOL. BLOOD TINGED INLINE SECTIONS NOTED SINCE TRACH CHANGED. KEN CATH OUTPUT WNL. BM X 1, SMALL, LIQUID BROWN. FAILED SWALLOW EVAL WITH S&H, WILL TRY AGAIN TOMORROW. Q2H REPO, BATHED, FREQUENT ORAL CARE, PREVALON MATTRESS UTILIZED, BARRIER CREAM APPLIED. FAMILY UPDATED BY THIS RN.
[2020-07-03] VITALS (9 sets, daily range): BP systolic 133–157; BP diastolic 67–95; PULSE 15–95; RESP 14–20; TEMP 36–36.8; O2SAT 94–98
[2020-07-03] MEDS: 0.9 % Sodium Chloride Flush 3 ML SYRINGE IVFLUSH ×2 (00:14→16:06)
[2020-07-03] MEDS: oxyCODONE HCl Immed Release 5 MG TABLET G-TUBE ×2 (03:54→16:09)
--- NOTE | 2020-07-03 07:48 | MHC.CM.PN ---
to add orders for PT/OT in anticipation for SNF or LTAC placement.
[2020-07-03] MEDS: Furosemide 40 MG TABLET PO (09:10)
[2020-07-03] MEDS: lisinopriL 40 MG TABLET PO (09:10)
[2020-07-03] MEDS: Apixaban 5 MG TABLET G-TUBE ×2 (09:10→21:30)
[2020-07-03] MEDS: Metoprolol Tartrate 25 MG TABLET PO ×2 (09:11→21:31)
[2020-07-03] MEDS: Digoxin 0.25 MG TABLET G-TUBE (09:11)
[2020-07-03] MEDS: Spironolactone 25 MG TABLET PO (09:11)
--- NOTE | 2020-07-03 15:36 | P.PNIM_ITS ---
Subjective Subjective Date of Service: 07/03/20 Interval History: no new events more awake Physical Exam Vital Signs: Vital Signs: Last Vital Signs Temp 97.3 F 07/03/20 11:19 Pulse 79 07/03/20 11:19 Resp 15 07/03/20 11:19 BP 133/88 07/03/20 11:19 Pulse Ox 98 07/03/20 11:19 Body Mass Index 31.1 Const: General: no acute distress and confusion Orientation/consciousness: confusion Neck: Other: tracheostomy to trach collar Neck: Yes supple Resp: Effort & Inspection: normal respiratory effort Auscultation: clear to auscultation bilaterally Cardio: Rate: regular rate and Other (irregular) Heart sounds: no murmurs GI: Other: PEG tube Palpation (GI): nontender : General: Yes other (Powers draining clear yellow urine) Neuro: General: confusion Objective Data Current Medications Generic Name Dose Route Start Last Admin Trade Name Freq PRN Reason Stop Dose Admin Apixaban 5 mg 06/18/20 14:30 07/03/20 09:10 Apixaban 5 Mg Tablet G-TUBE 5 mg BID JESSICA Administration Chlorhexidine Gluconate 15 ml 06/05/20 02:00 07/03/20 12:54 Chlorhexidine Gluc Oral Rinse 15 Ml Mouthwash BUCCAL Not Given TID JESSICA Digoxin 0.25 mg 06/21/20 09:00 07/03/20 09:11 Digoxin 0.25 Mg Tablet G-TUBE 0.25 mg DAILY JESSICA Administration Furosemide 40 mg 06/27/20 09:00 07/03/20 09:10 Furosemide 40 Mg Tablet PO 40 mg DAILY JESSICA Administration Protocol Lisinopril 40 mg 06/13/20 09:00 07/03/20 09:10 Lisinopril 40 Mg Tablet PO 40 mg DAILY JESSICA Administration Protocol Metoprolol Tartrate 25 mg 06/21/20 21:00 07/03/20 09:11 Metoprolol Tartrate 25 Mg Tablet PO 25 mg BID JESSICA Administration Protocol Omeprazole 40 mg 06/13/20 09:15 07/03/20 05:36 Omeprazole 20 Mg/10 Ml Susp.Recon PO 40 mg DAILY@0630 JESSICA Administration Oxycodone HCl 5 mg 06/28/20 19:54 07/03/20 03:54 Oxycodone Hcl Immed Release 5 Mg Tablet G-TUBE 5 mg Q6H PRN Administration Pain, Moderate (Pain Scale 4-6 Sodium Chloride 3 ml 05/30/20 08:00 07/03/20 09:54 0.9 % Sodium Chloride Flush 3 Ml Syringe IVFLUSH Not Given QSHIFT [facility] Spironolactone 25 mg 06/24/20 11:15 07/03/20 09:11 Spironolactone 25 Mg Tablet PO 25 mg DAILY JESSICA Administration Protocol Labs CBC & Chem 7: 07/02/20 05:52 07/02/20 05:52 Microbiology Microbiology Results: Microbiology 06/26/20 19:31 Blood - Venous Blood Culture - Final No growth after 5 days. 06/26/20 19:37 Blood - Venous Blood Culture - Final No growth after 5 days. 06/16/20 18:53 Bronch Lll - Bronchial Fungal Identification - Preliminary No growth after 1 week. 06/25/20 00:48 Blood - Venous Blood Culture - Final No growth after 5 days. 06/25/20 00:45 Blood - Venous Blood Culture - Final No growth after 5 days. 06/27/20 08:40 Sputum - Expectorated Gram Stain - Final 06/27/20 08:40 Sputum - Expectorated Sputum Culture - Final 06/26/20 20:37 Urine Powers Port Urine Culture - Final No growth. 06/20/20 17:59 Blood - Venous Blood Culture - Final No growth after 5 days. 06/20/20 17:52 Blood - Venous Blood Culture - Final No growth after 5 days. 06/23/20 Unknown Sputum - Induced Gram Stain - Final 06/23/20 Unknown Sputum - Induced Sputum Culture - Final 06/23/20 12:52 Urine Powers Port Urine Culture - Final No growth. 06/17/20 06:12 Blood - Venous Blood Culture - Final No growth after 5 days. 06/17/20 06:08 Blood - Venous Blood Culture - Final No growth after 5 days. 06/16/20 18:53 Bronch Lll - Bronchial Gram Stain - Final 06/16/20 18:53 Bronch Lll - Bronchial Routine Culture - Final Escherichia coli 06/18/20 10:08 Sputum - Suctioned Gram Stain - Final 06/18/20 10:08 Sputum - Suctioned Sputum Culture - Final Escherichia coli 06/09/20 13:11 Stool Stool Culture - Final 06/05/20 03:40 Blood - Venous Blood Culture - Final No growth after 5 days. 06/05/20 03:36 Blood - Venous Blood Culture - Final No growth after 5 days. 06/04/20 11:45 Blood - Venous Blood Culture - Final No growth after 5 days. 06/04/20 11:45 Blood - Venous Blood Culture - Final No growth after 5 days. 06/05/20 03:31 Sputum - Suctioned Gram Stain - Final 06/05/20 03:31 Sputum - Suctioned Sputum Culture - Final 06/04/20 11:35 Urine Catheterized - Powers Catheter Urine Culture - Final No growth. Assessment and Plan (1) Alcohol withdrawal syndrome: Status: Acute (2) Depression: Status: Inactive (3) HTN (hypertension): Status: Acute (4) Sleep apnea: Status: Acute Assessment and Plan: hospital d#35 60yo M with PMHx EtOH abuse, MJ, HTN, obesity originally admitted for EtOH withdrawal 05/29/20 hospital course complicated by cardiopulmonary arrest 06/04/20, resuscitated + intubated ICU course complicated by [facility] requiring temporary HD, drug fever, decompensated R-sided CHF, new-onset AF, and encephalopathy tracheostomy and PEG tube 06/16/20 weaned to trach collar 06/28/20 stepped down to IMC status 06/30/20 changed to uncuffed trach 07/02/20 # acute hypoxic respiratory failure - now trach dependent, on trach collar fiO2 28% # acute/chronic R-sided HF - continue digoxin, metoprolol, spironolactone, lisinopril, and furosemide [maintenance]; appears euvolemic # AF - continue metoprolol and apixaban # [facility] requiring HD - resolved # encephalopathy - s/p cardiac arrest + prolonged ICU course. slowly improving. MRI 06/14/20 no acute disease. - tube feeds: Promote 75 mL/hr plus 120 mL free water q6h - originally treated with phenobarbital for EtOH withdrawal + thiamine for suspected Wernicke encephalopathy, resolved # dispo - LTACH [alternative, SNF 30d post tracheostomy)
[2020-07-03] MEDS: Chlorhexidine Gluc Oral Rinse 15 ML MOUTHWASH BUCCAL (21:35)
[2020-07-04] VITALS (9 sets, daily range): BP systolic 114–150; BP diastolic 60–93; PULSE 84–114; RESP 16–21; TEMP 36.5–37.1; O2SAT 94–97; BMI 29.0
[2020-07-04] MEDS: 0.9 % Sodium Chloride Flush 3 ML SYRINGE IVFLUSH ×3 (00:15→16:43)
[2020-07-04] MEDS: oxyCODONE HCl Immed Release 5 MG TABLET G-TUBE (02:08)
[2020-07-04] MEDS: Chlorhexidine Gluc Oral Rinse 15 ML MOUTHWASH BUCCAL ×2 (09:19→13:53)
[2020-07-04] MEDS: Furosemide 40 MG TABLET PO (09:19)
[2020-07-04] MEDS: Apixaban 5 MG TABLET G-TUBE ×2 (09:20→21:27)
[2020-07-04] MEDS: Digoxin 0.25 MG TABLET G-TUBE (09:20)
[2020-07-04] MEDS: lisinopriL 40 MG TABLET PO (09:20)
[2020-07-04] MEDS: Metoprolol Tartrate 25 MG TABLET PO ×2 (09:21→21:27)
[2020-07-04] MEDS: Spironolactone 25 MG TABLET PO (09:21)
--- NOTE | 2020-07-04 12:58 | P.PNIM_ITS ---
Subjective Subjective Date of Service: 07/04/20 Interval History: no new events Physical Exam Vital Signs: Vital Signs: Last Vital Signs Temp 98.0 F 07/04/20 12:00 Pulse 84 07/04/20 12:00 Resp 17 07/04/20 12:00 BP 114/93 H 07/04/20 09:21 Pulse Ox 94 07/04/20 12:00 Body Mass Index 29.0 Const: General: no acute distress and confusion Orientation/consciousness: confusion Neck: Other: tracheostomy to trach collar Neck: Yes supple Resp: Effort & Inspection: normal respiratory effort Auscultation: clear to auscultation bilaterally Cardio: Rate: regular rate and Other (irregular) Heart sounds: no murmurs GI: Other: PEG tube Palpation (GI): nontender : General: Yes other (Powers draining clear yellow urine) Neuro: General: confusion Objective Data Current Medications Generic Name Dose Route Start Last Admin Trade Name Freq PRN Reason Stop Dose Admin Apixaban 5 mg 06/18/20 14:30 07/04/20 09:20 Apixaban 5 Mg Tablet G-TUBE 5 mg BID JESSICA Administration Chlorhexidine Gluconate 15 ml 06/05/20 02:00 07/04/20 09:19 Chlorhexidine Gluc Oral Rinse 15 Ml Mouthwash BUCCAL 15 ml TID JESSICA Administration Digoxin 0.25 mg 06/21/20 09:00 07/04/20 09:20 Digoxin 0.25 Mg Tablet G-TUBE 0.25 mg DAILY JESSICA Administration Furosemide 40 mg 06/27/20 09:00 07/04/20 09:19 Furosemide 40 Mg Tablet PO 40 mg DAILY JESSICA Administration Protocol Lisinopril 40 mg 06/13/20 09:00 07/04/20 09:20 Lisinopril 40 Mg Tablet PO 40 mg DAILY JESSICA Administration Protocol Metoprolol Tartrate 25 mg 06/21/20 21:00 07/04/20 09:21 Metoprolol Tartrate 25 Mg Tablet PO 25 mg BID JESSICA Administration Protocol Omeprazole 40 mg 06/13/20 09:15 07/04/20 05:31 Omeprazole 20 Mg/10 Ml Susp.Recon PO 40 mg DAILY@0630 JESSICA Administration Oxycodone HCl 5 mg 07/04/20 00:27 07/04/20 02:08 Oxycodone Hcl Immed Release 5 Mg Tablet G-TUBE 5 mg Q6H PRN Administration Pain, Severe (Pain Scale 7-10) Sodium Chloride 3 ml 05/30/20 08:00 07/04/20 09:19 0.9 % Sodium Chloride Flush 3 Ml Syringe IVFLUSH 3 ml QSHIFT JESSICA Administration Spironolactone 25 mg 06/24/20 11:15 07/04/20 09:21 Spironolactone 25 Mg Tablet PO 25 mg DAILY JESSICA Administration Protocol Labs CBC & Chem 7: 07/02/20 05:52 07/02/20 05:52 Microbiology Microbiology Results: Microbiology 06/26/20 19:31 Blood - Venous Blood Culture - Final No growth after 5 days. 06/26/20 19:37 Blood - Venous Blood Culture - Final No growth after 5 days. 06/16/20 18:53 Bronch Lll - Bronchial Fungal Identification - Preliminary No growth after 1 week. 06/25/20 00:48 Blood - Venous Blood Culture - Final No growth after 5 days. 06/25/20 00:45 Blood - Venous Blood Culture - Final No growth after 5 days. 06/27/20 08:40 Sputum - Expectorated Gram Stain - Final 06/27/20 08:40 Sputum - Expectorated Sputum Culture - Final 06/26/20 20:37 Urine Powers Port Urine Culture - Final No growth. 06/20/20 17:59 Blood - Venous Blood Culture - Final No growth after 5 days. 06/20/20 17:52 Blood - Venous Blood Culture - Final No growth after 5 days. 06/23/20 Unknown Sputum - Induced Gram Stain - Final 06/23/20 Unknown Sputum - Induced Sputum Culture - Final 06/23/20 12:52 Urine Powers Port Urine Culture - Final No growth. 06/17/20 06:12 Blood - Venous Blood Culture - Final No growth after 5 days. 06/17/20 06:08 Blood - Venous Blood Culture - Final No growth after 5 days. 06/16/20 18:53 Bronch Lll - Bronchial Gram Stain - Final 06/16/20 18:53 Bronch Lll - Bronchial Routine Culture - Final Escherichia coli 06/18/20 10:08 Sputum - Suctioned Gram Stain - Final 06/18/20 10:08 Sputum - Suctioned Sputum Culture - Final Escherichia coli 06/09/20 13:11 Stool Stool Culture - Final 06/05/20 03:40 Blood - Venous Blood Culture - Final No growth after 5 days. 06/05/20 03:36 Blood - Venous Blood Culture - Final No growth after 5 days. 06/04/20 11:45 Blood - Venous Blood Culture - Final No growth after 5 days. 06/04/20 11:45 Blood - Venous Blood Culture - Final No growth after 5 days. 06/05/20 03:31 Sputum - Suctioned Gram Stain - Final 06/05/20 03:31 Sputum - Suctioned Sputum Culture - Final 06/04/20 11:35 Urine Catheterized - Powers Catheter Urine Culture - Final No growth. Assessment and Plan (1) Alcohol withdrawal syndrome: Status: Acute (2) Depression: Status: Inactive (3) HTN (hypertension): Status: Acute (4) Sleep apnea: Status: Acute Assessment and Plan: hospital d#36 60yo M with PMHx EtOH abuse, MJ, HTN, obesity originally admitted for EtOH withdrawal 05/29/20 hospital course complicated by cardiopulmonary arrest 06/04/20, resuscitated + intubated ICU course complicated by [facility] requiring temporary HD, drug fever, decompensated R-sided CHF, new-onset AF, and encephalopathy tracheostomy and PEG tube 06/16/20 weaned to trach collar 06/28/20 stepped down to IMC status 06/30/20 changed to uncuffed trach 07/02/20 # acute hypoxic respiratory failure - now trach dependent, on trach collar fiO2 28% # acute/chronic R-sided HF - continue digoxin, metoprolol, spironolactone, lisinopril, and furosemide [maintenance]; appears euvolemic # AF - continue metoprolol and apixaban # [facility] requiring HD - resolved # encephalopathy - s/p cardiac arrest + prolonged ICU course. slowly improving. MRI 06/14/20 no acute disease. - tube feeds: Promote 75 mL/hr plus 120 mL free water q6h - originally treated with phenobarbital for EtOH withdrawal + thiamine for s uspected Wernicke encephalopathy, resolved # dispo - LTACH [alternative, SNF 30d post tracheostomy) I updated the pt's brother/HCP Comp[facility] by phone.
[2020-07-05] VITALS (12 sets, daily range): BP systolic 129–152; BP diastolic 67–87; PULSE 86–104; RESP 16–22; TEMP 36.3–37; O2SAT 92–97
[2020-07-05] MEDS: 0.9 % Sodium Chloride Flush 3 ML SYRINGE IVFLUSH ×3 (00:21→15:54)
[2020-07-05] MEDS: oxyCODONE HCl Immed Release 5 MG TABLET G-TUBE (00:37)
[2020-07-05] MEDS: Metoprolol Tartrate 25 MG TABLET PO ×2 (10:39→22:39)
--- NOTE | 2020-07-05 10:40 | MHC.CM.PN ---
Addendum entered by Elana Diaz 07/05/20 11:10: Per liaison, [facility] a bed to offer this weekend but will review again on Tuesday Original Note: Several referrals made for STR and LTAC LOC. Currently three facilities are following, [facility], [facility] and [facility]. Clinical updates were sent. CM currently awaiting responses to determine if they are able to offer pt a bed today.
[2020-07-05] MEDS: lisinopriL 40 MG TABLET PO (10:50)
[2020-07-05] MEDS: Digoxin 0.25 MG TABLET G-TUBE (10:51)
[2020-07-05] MEDS: Furosemide 40 MG TABLET PO (10:51)
[2020-07-05] MEDS: Apixaban 5 MG TABLET G-TUBE ×2 (10:52→22:39)
[2020-07-05] MEDS: Spironolactone 25 MG TABLET PO (10:52)
--- NOTE | 2020-07-05 11:29 | HO.PM.IMPN ---
Subjective Subjective Date of Service: 07/05/20 Interval History: moved to [facility] no new events otherwise Physical Exam Vital Signs: Vital Signs: Last Vital Signs Temp 97.6 F 07/05/20 11:06 Pulse 92 07/05/20 11:06 Resp 22 H 07/05/20 11:06 BP 131/80 07/05/20 11:06 Pulse Ox 96 07/05/20 11:06 Body Mass Index 29.0 Gen: in no acute distress HEENT: sclera anicteric, moist mucus membranes Neck: uncuffed tracheostomy, trach collar at fiO2 30% Lungs: clear to auscultation bilaterally Heart: irregularly irregular with no murmurs Abd: soft, non-tender, non-distended; PEG tube running feeds Ext: no edema Skin: warm/well-perfused Neuro: confused Objective Data Current Medications Generic Name Dose Route Start Last Admin Trade Name Freq PRN Reason Stop Dose Admin Apixaban 5 mg 06/18/20 14:30 07/05/20 10:52 Apixaban 5 Mg Tablet G-TUBE 5 mg BID JESSICA Administration Chlorhexidine Gluconate 15 ml 06/05/20 02:00 07/05/20 10:54 Chlorhexidine Gluc Oral Rinse 15 Ml Mouthwash BUCCAL Not Given TID JESSICA Digoxin 0.25 mg 06/21/20 09:00 07/05/20 10:51 Digoxin 0.25 Mg Tablet G-TUBE 0.25 mg DAILY JESSICA Administration Furosemide 40 mg 06/27/20 09:00 07/05/20 10:51 Furosemide 40 Mg Tablet PO 40 mg DAILY JESSICA Administration Protocol Lisinopril 40 mg 06/13/20 09:00 07/05/20 10:50 Lisinopril 40 Mg Tablet PO 40 mg DAILY JESSICA Administration Protocol Metoprolol Tartrate 25 mg 06/21/20 21:00 07/05/20 10:39 Metoprolol Tartrate 25 Mg Tablet PO 25 mg BID JESSICA Administration Protocol Omeprazole 40 mg 06/13/20 09:15 07/05/20 05:19 Omeprazole 20 Mg/10 Ml Susp.Recon PO 40 mg DAILY@0630 JESSICA Administration Oxycodone HCl 5 mg 07/04/20 00:27 07/05/20 00:37 Oxycodone Hcl Immed Release 5 Mg Tablet G-TUBE 5 mg Q6H PRN Administration Pain, Severe (Pain Scale 7-10) Sodium Chloride 3 ml 05/30/20 08:00 07/05/20 08:04 0.9 % Sodium Chloride Flush 3 Ml Syringe IVFLUSH 3 ml QSHIFT JESSICA Administration Spironolactone 25 mg 06/24/20 11:15 07/05/20 10:52 Spironolactone 25 Mg Tablet PO 25 mg DAILY JESSICA Administration Protocol Labs CBC & Chem 7: 07/02/20 05:52 07/02/20 05:52 Microbiology Microbiology Results: Microbiology 06/26/20 19:31 Blood - Venous Blood Culture - Final No growth after 5 days. 06/26/20 19:37 Blood - Venous Blood Culture - Final No growth after 5 days. 06/16/20 18:53 Bronch Lll - Bronchial Fungal Identification - Preliminary No growth after 1 week. 06/25/20 00:48 Blood - Venous Blood Culture - Final No growth after 5 days. 06/25/20 00:45 Blood - Venous Blood Culture - Final No growth after 5 days. 06/27/20 08:40 Sputum - Expectorated Gram Stain - Final 06/27/20 08:40 Sputum - Expectorated Sputum Culture - Final 06/26/20 20:37 Urine Powers Port Urine Culture - Final No growth. 06/20/20 17:59 Blood - Venous Blood Culture - Final No growth after 5 days. 06/20/20 17:52 Blood - Venous Blood Culture - Final No growth after 5 days. 06/23/20 Unknown Sputum - Induced Gram Stain - Final 06/23/20 Unknown Sputum - Induced Sputum Culture - Final 06/23/20 12:52 Urine Powers Port Urine Culture - Final No growth. 06/17/20 06:12 Blood - Venous Blood Culture - Final No growth after 5 days. 06/17/20 06:08 Blood - Venous Blood Culture - Final No growth after 5 days. 06/16/20 18:53 Bronch Lll - Bronchial Gram Stain - Final 06/16/20 18:53 Bronch Lll - Bronchial Routine Culture - Final Escherichia coli 06/18/20 10:08 Sputum - Suctioned Gram Stain - Final 06/18/20 10:08 Sputum - Suctioned Sputum Culture - Final Escherichia coli 06/09/20 13:11 Stool Stool Culture - Final 06/05/20 03:40 Blood - Venous Blood Culture - Final No growth after 5 days. 06/05/20 03:36 Blood - Venous Blood Culture - Final No growth after 5 days. 06/04/20 11:45 Blood - Venous Blood Culture - Final No growth after 5 days. 06/04/20 11:45 Blood - Venous Blood Culture - Final No growth after 5 days. 06/05/20 03:31 Sputum - Suctioned Gram Stain - Final 06/05/20 03:31 Sputum - Suctioned Sputum Culture - Final 06/04/20 11:35 Urine Catheterized - Powers Catheter Urine Culture - Final No growth. Assessment and Plan (1) Alcohol withdrawal syndrome: Status: Acute (2) Depression: Status: Inactive (3) HTN (hypertension): Status: Acute (4) Sleep apnea: Status: Acute Assessment and Plan: hospital d#37 60yo M with PMHx EtOH abuse, MJ, HTN, obesity originally admitted for EtOH withdrawal 05/29/20 hospital course complicated by cardiopulmonary arrest 06/04/20, resuscitated + intubated ICU course complicated by [facility] requiring temporary HD, drug fever, decompensated R-sided CHF, new-onset AF, and encephalopathy tracheostomy and PEG tube 06/16/20 weaned to trach collar 06/28/20 stepped down to IMC status 06/30/20 changed to uncuffed trach 07/02/20 # acute hypoxic respiratory failure - now trach dependent, on trach collar # acute/chronic R-sided HF - continue digoxin, metoprolol, spironolactone, lisinopril, and furosemide [maintenance]; appears euvolemic # AF - continue metoprolol for rate control and apixaban for anticoagulation # [facility] requiring HD - resolved # encephalopathy - s/p cardiac arrest + prolonged ICU course. slowly improving. MRI 06/14/20 no acute disease. - tube feeds: Promote 75 mL/hr plus 120 mL free water q6h - originally treated with phenobarbital for EtOH withdrawal + thiamine for suspected Wernicke encephalopathy, resolved # dispo - LTACH; alternatively, SNF 30d post-tracheostomy
[2020-07-05] MEDS: Chlorhexidine Gluc Oral Rinse 15 ML MOUTHWASH BUCCAL ×2 (15:54→22:39)
--- NOTE | 2020-07-05 19:16 | PC.NURSE ---
Pt angry, trying to yell but has trach. HE says he wants to get oob, also asking for vodka. Pt states it is my body . Tried to reposition pt and he is resistive, pushing back on rails. will continue to monitor. Pt has camera in place.
[2020-07-06] VITALS (7 sets, daily range): BP systolic 125–164; BP diastolic 77–85; PULSE 83–90; RESP 18–20; TEMP 36.3–36.8; O2SAT 92–97
[2020-07-06] MEDS: 0.9 % Sodium Chloride Flush 3 ML SYRINGE IVFLUSH ×4 (00:34→21:03)
[2020-07-06 07:59] LABS: Alanine Aminotransferase 43 U/L (0-40); Albumin Level 3.3 g/dL (3.5-5.0); Alkaline Phosphatase 216 U/L (39-117); Anion Gap 19 (12-20); Aspartate Amino Transferase 62 U/L (5-37); Bilirubin Total 0.7 mg/dL (0.0-1.0); Blood Urea Nitrogen 49 mg/dL (9-16); Calcium 9.5 mg/dL (8.4-10.2); Carbon Dioxide 33 mmol/L (22-29); Chloride 97 mmol/L (96-108); Creatinine Clr Calc Pharmacy 92.3; Estimated Glomerular Filt Rate > 60; Glucose Random 169 mg/dL (60-115); Magnesium 2.8 mg/dL (1.6-2.6); Phosphorus 5.7 mg/dL (2.7-4.5); Potassium 5.7 mmol/l (3.3-5.1); Sodium 143 mmol/L (135-145); Total Protein 8.6 g/dL (6.5-8.0)
[2020-07-06] MEDS: Sodium Polystyrene Sulfon/Sorb 15 GM/60 ML ORAL.SUSP 30 GM G-TUBE (09:37)
[2020-07-06] MEDS: Chlorhexidine Gluc Oral Rinse 15 ML MOUTHWASH BUCCAL ×2 (09:37→20:57)
[2020-07-06] MEDS: Metoprolol Tartrate 25 MG TABLET PO ×2 (09:38→20:57)
[2020-07-06] MEDS: Furosemide 40 MG TABLET PO (09:38)
[2020-07-06] MEDS: lisinopriL 40 MG TABLET PO (09:38)
[2020-07-06] MEDS: Apixaban 5 MG TABLET G-TUBE ×2 (09:38→20:57)
[2020-07-06] MEDS: Spironolactone 25 MG TABLET PO (09:38)
[2020-07-06] MEDS: Digoxin 0.25 MG TABLET G-TUBE (09:38)
--- NOTE | 2020-07-06 10:44 | HO.PM.IMPN ---
Subjective Subjective Date of Service: 07/06/20 Interval History: no new events appears comfortable Physical Exam Vital Signs: Vital Signs: Last Vital Signs Temp 97.3 F 07/06/20 08:00 Pulse 90 07/06/20 09:38 Resp 18 07/06/20 08:00 BP 133/77 07/06/20 09:38 Pulse Ox 97 07/06/20 08:00 Body Mass Index 29.0 Gen: in no acute distress HEENT: sclera anicteric, moist mucus membranes Neck: uncuffed tracheostomy, trach collar at fiO2 30% Lungs: clear to auscultation bilaterally Heart: irregularly irregular with no murmurs Abd: soft, non-tender, non-distended; PEG tube running feeds : Powers draining clear urine Ext: no edema Skin: warm/well-perfused Neuro: confused Objective Data Current Medications Generic Name Dose Route Start Last Admin Trade Name Freq PRN Reason Stop Dose Admin Apixaban 5 mg 06/18/20 14:30 07/06/20 09:38 Apixaban 5 Mg Tablet G-TUBE 5 mg BID JESSICA Administration Chlorhexidine Gluconate 15 ml 06/05/20 02:00 07/06/20 09:37 Chlorhexidine Gluc Oral Rinse 15 Ml Mouthwash BUCCAL 15 ml TID JESSICA Administration Digoxin 0.25 mg 06/21/20 09:00 07/06/20 09:38 Digoxin 0.25 Mg Tablet G-TUBE 0.25 mg DAILY JESSICA Administration Furosemide 40 mg 06/27/20 09:00 07/06/20 09:38 Furosemide 40 Mg Tablet PO 40 mg DAILY JESSICA Administration Protocol Lisinopril 40 mg 06/13/20 09:00 07/06/20 09:38 Lisinopril 40 Mg Tablet PO 40 mg DAILY JESSICA Administration Protocol Metoprolol Tartrate 25 mg 06/21/20 21:00 07/06/20 09:38 Metoprolol Tartrate 25 Mg Tablet PO 25 mg BID JESSICA Administration Protocol Omeprazole 40 mg 06/13/20 09:15 07/06/20 05:25 Omeprazole 20 Mg/10 Ml Susp.Recon PO 40 mg DAILY@0630 JESSICA Administration Oxycodone HCl 5 mg 07/04/20 00:27 07/05/20 00:37 Oxycodone Hcl Immed Release 5 Mg Tablet G-TUBE 5 mg Q6H PRN Administration Pain, Severe (Pain Scale 7-10) Sodium Chloride 3 ml 05/30/20 08:00 07/06/20 09:39 0.9 % Sodium Chloride Flush 3 Ml Syringe IVFLUSH 3 ml QSHIFT JESSICA Administration Spironolactone 25 mg 06/24/20 11:15 07/06/20 09:38 Spironolactone 25 Mg Tablet PO 25 mg DAILY JESSICA Administration Protocol Labs CBC & Chem 7: 07/02/20 05:52 07/06/20 05:21 Labs: Laboratory Results - last 24 hr 07/06/20 05:21 Sodium 143 Potassium 5.7 H Chloride 97 Carbon Dioxide 33 H Anion Gap 19 BUN 49 H Creatinine 1.04 Estim Creat Clear Calc 92.3 Estimated GFR > 60 Random Glucose 169 H Calcium 9.5 Phosphorus 5.7 H Magnesium 2.8 H Total Bilirubin 0.7 AST 62 H ALT 43 H Alkaline Phosphatase 216 H Total Protein 8.6 H Albumin 3.3 L Microbiology Microbiology Results: Microbiology 06/26/20 19:31 Blood - Venous Blood Culture - Final No growth after 5 days. 06/26/20 19:37 Blood - Venous Blood Culture - Final No growth after 5 days. 06/16/20 18:53 Bronch Lll - Bronchial Fungal Identification - Preliminary No growth after 1 week. 06/25/20 00:48 Blood - Venous Blood Culture - Final No growth after 5 days. 06/25/20 00:45 Blood - Venous Blood Culture - Final No growth after 5 days. 06/27/20 08:40 Sputum - Expectorated Gram Stain - Final 06/27/20 08:40 Sputum - Expectorated Sputum Culture - Final 06/26/20 20:37 Urine Powers Port Urine Culture - Final No growth. 06/20/20 17:59 Blood - Venous Blood Culture - Final No growth after 5 days. 06/20/20 17:52 Blood - Venous Blood Culture - Final No growth after 5 days. 06/23/20 Unknown Sputum - Induced Gram Stain - Final 06/23/20 Unknown Sputum - Induced Sputum Culture - Final 06/23/20 12:52 Urine Powers Port Urine Culture - Final No growth. 06/17/20 06:12 Blood - Venous Blood Culture - Final No growth after 5 days. 06/17/20 06:08 Blood - Venous Blood Culture - Final No growth after 5 days. 06/16/20 18:53 Bronch Lll - Bronchial Gram Stain - Final 06/16/20 18:53 Bronch Lll - Bronchial Routine Culture - Final Escherichia coli 06/18/20 10:08 Sputum - Suctioned Gram Stain - Final 06/18/20 10:08 Sputum - Suctioned Sputum Culture - Final Escherichia coli 06/09/20 13:11 Stool Stool Culture - Final 06/05/20 03:40 Blood - Venous Blood Culture - Final No growth after 5 days. 06/05/20 03:36 Blood - Venous Blood Culture - Final No growth after 5 days. 06/04/20 11:45 Blood - Venous Blood Culture - Final No growth after 5 days. 06/04/20 11:45 Blood - Venous Blood Culture - Final No growth after 5 days. 06/05/20 03:31 Sputum - Suctioned Gram Stain - Final 06/05/20 03:31 Sputum - Suctioned Sputum Culture - Final 06/04/20 11:35 Urine Catheterized - Powers Catheter Urine Culture - Final No growth. Assessment and Plan (1) Alcohol withdrawal syndrome: Status: Acute (2) Depression: Status: Inactive (3) HTN (hypertension): Status: Acute (4) Sleep apnea: Status: Acute Assessment and Plan: hospital d#38 60yo M with PMHx EtOH abuse, MJ, HTN, obesity originally admitted for EtOH withdrawal 05/29/20 hospital course complicated by cardiopulmonary arrest 06/04/20, resuscitated + intubated ICU course complicated by [facility] requiring temporary HD, drug fever, decompensated R-sided CHF, new-onset AF, and encephalopathy tracheostomy and PEG tube 06/16/20 weaned to trach collar 06/28/20 stepped down to IMC status 06/30/20 changed to uncuffed trach 07/02/20 awaiting LTACH placement # hyperK - give 1 dose SPS, recheck BMP in am # acute hypoxic respiratory failure - now trach dependent, on trach collar fiO2 30% # acute/chronic R-sided HF - continue digoxin, metoprolol, spironolactone, lisinopril, and furosemide [maintenance]; appears euvolemic at this point # AF - continue metoprolol for rate control - continue apixaban for anticoagulation # [facility] requiring HD - resolved # encephalopathy - s/p cardiac arrest + prolonged ICU course. slowly improving. MRI 06/14/20 no acute disease. - tube feeds: Promote 75 mL/hr + free water 120 mL q6h - originally treated with phenobarbital for EtOH withdrawal + thiamine for suspected Wernicke encephalopathy, resolved # VTE ppx - on apixaban # dispo - LTACH; alternatively, SNF 30d post-tracheostomy
[2020-07-07] VITALS (10 sets, daily range): BP systolic 121–164; BP diastolic 61–83; PULSE 75–94; RESP 19–22; TEMP 36.6–37.6; O2SAT 93–97; BMI 29.0
[2020-07-07 06:54] LABS: Anion Gap 18 (12-20); Blood Urea Nitrogen 52 mg/dL (9-16); Calcium 9.8 mg/dL (8.4-10.2); Carbon Dioxide 34 mmol/L (22-29); Chloride 96 mmol/L (96-108); Estimated Glomerular Filt Rate > 60; Glucose Random 174 mg/dL (60-115); Potassium 4.9 mmol/l (3.3-5.1); Sodium 143 mmol/L (135-145)
[2020-07-07] MEDS: Metoprolol Tartrate 25 MG TABLET PO ×2 (09:04→22:07)
[2020-07-07] MEDS: Apixaban 5 MG TABLET G-TUBE ×2 (09:04→22:07)
[2020-07-07] MEDS: Furosemide 40 MG TABLET PO (09:04)
[2020-07-07] MEDS: 0.9 % Sodium Chloride Flush 3 ML SYRINGE IVFLUSH ×3 (09:04→22:07)
[2020-07-07] MEDS: Spironolactone 25 MG TABLET PO (09:04)
[2020-07-07] MEDS: lisinopriL 40 MG TABLET PO (09:04)
[2020-07-07] MEDS: Chlorhexidine Gluc Oral Rinse 15 ML MOUTHWASH BUCCAL ×3 (09:05→22:06)
[2020-07-07] MEDS: Digoxin 0.25 MG TABLET G-TUBE (09:05)
[2020-07-07 11:14] LABS: Glucose, Whole Blood 156 mg/dL (60-115)
--- NOTE | 2020-07-07 14:03 | MHC.CM.PN ---
Patient is on 7 liters O2 via trach mask. CM spoke with Nicolasa at [facility] who was questioning patient's behaviors. CM spoke with nurse who states patient yells out with turning and personal care, not physically. Updates sent to [facility]. Discharge plan to to go to [facility] via BLS transport once accepted. CM will continue to follow patient for discharge needs.
--- NOTE | 2020-07-07 15:31 | HO.PM.IMPN ---
Subjective Subjective Date of Service: 07/07/20 Interval History: seen and examined appears comfortable Physical Exam Vital Signs: Vital Signs: Last Vital Signs Temp 99.7 F 07/07/20 11:03 Pulse 75 07/07/20 11:03 Resp 20 07/07/20 11:03 BP 164/83 H 07/07/20 11:03 Pulse Ox 97 07/07/20 11:03 Body Mass Index 29.0 Const: Other: Gen - in no acute distress HEENT- sclera anicteric, moist mucus membranes Neck - uncuffed tracheostomy, trach collar at fiO2 30% Lungs - clear to auscultation bilaterally Heart - irregularly irregular with no murmurs Abd - soft, non-tender, non-distended; PEG tube running feeds - Powers draining clear urine Ext - no edema Skin - warm/well-perfused Neuro - confused Objective Data Current Medications Generic Name Dose Route Start Last Admin Trade Name Freq PRN Reason Stop Dose Admin Apixaban 5 mg 06/18/20 14:30 07/07/20 09:04 Apixaban 5 Mg Tablet G-TUBE 5 mg BID JESSICA Administration Chlorhexidine Gluconate 15 ml 06/05/20 02:00 07/07/20 15:00 Chlorhexidine Gluc Oral Rinse 15 Ml Mouthwash BUCCAL 15 ml TID JESSICA Administration Digoxin 0.25 mg 06/21/20 09:00 07/07/20 09:05 Digoxin 0.25 Mg Tablet G-TUBE 0.25 mg DAILY JESSICA Administration Furosemide 40 mg 06/27/20 09:00 07/07/20 09:04 Furosemide 40 Mg Tablet PO 40 mg DAILY JESSICA Administration Protocol Lisinopril 40 mg 06/13/20 09:00 07/07/20 09:04 Lisinopril 40 Mg Tablet PO 40 mg DAILY JESSICA Administration Protocol Metoprolol Tartrate 25 mg 06/21/20 21:00 07/07/20 09:04 Metoprolol Tartrate 25 Mg Tablet PO 25 mg BID JESSICA Administration Protocol Omeprazole 40 mg 06/13/20 09:15 07/07/20 05:55 Omeprazole 20 Mg/10 Ml Susp.Recon PO 40 mg DAILY@0630 JESSICA Administration Oxycodone HCl 5 mg 07/04/20 00:27 07/05/20 00:37 Oxycodone Hcl Immed Release 5 Mg Tablet G-TUBE 5 mg Q6H PRN Administration Pain, Severe (Pain Scale 7-10) Sodium Chloride 3 ml 05/30/20 08:00 07/07/20 15:00 0.9 % Sodium Chloride Flush 3 Ml Syringe IVFLUSH 3 ml QSHIFT JESSICA Administration Spironolactone 25 mg 06/24/20 11:15 07/07/20 09:04 Spironolactone 25 Mg Tablet PO 25 mg DAILY JESSICA Administration Protocol Labs CBC & Chem 7: 07/02/20 05:52 07/07/20 05:17 Microbiology Microbiology Results: Microbiology 06/16/20 18:53 Bronch Lll - Bronchial Fungal Identification - Preliminary No growth after 2 weeks. 06/26/20 19:31 Blood - Venous Blood Culture - Final No growth after 5 days. 06/26/20 19:37 Blood - Venous Blood Culture - Final No growth after 5 days. 06/25/20 00:48 Blood - Venous Blood Culture - Final No growth after 5 days. 06/25/20 00:45 Blood - Venous Blood Culture - Final No growth after 5 days. 06/27/20 08:40 Sputum - Expectorated Gram Stain - Final 06/27/20 08:40 Sputum - Expectorated Sputum Culture - Final 06/26/20 20:37 Urine Powers Port Urine Culture - Final No growth. 06/20/20 17:59 Blood - Venous Blood Culture - Final No growth after 5 days. 06/20/20 17:52 Blood - Venous Blood Culture - Final No growth after 5 days. 06/23/20 Unknown Sputum - Induced Gram Stain - Final 06/23/20 Unknown Sputum - Induced Sputum Culture - Final 06/23/20 12:52 Urine Powers Port Urine Culture - Final No growth. 06/17/20 06:12 Blood - Venous Blood Culture - Final No growth after 5 days. 06/17/20 06:08 Blood - Venous Blood Culture - Final No growth after 5 days. 06/16/20 18:53 Bronch Lll - Bronchial Gram Stain - Final 06/16/20 18:53 Bronch Lll - Bronchial Routine Culture - Final Escherichia coli 06/18/20 10:08 Sputum - Suctioned Gram Stain - Final 06/18/20 10:08 Sputum - Suctioned Sputum Culture - Final Escherichia coli 06/09/20 13:11 Stool Stool Culture - Final 06/05/20 03:40 Blood - Venous Blood Culture - Final No growth after 5 days. 06/05/20 03:36 Blood - Venous Blood Culture - Final No growth after 5 days. 06/04/20 11:45 Blood - Venous Blood Culture - Final No growth after 5 days. 06/04/20 11:45 Blood - Venous Blood Culture - Final No growth after 5 days. 06/05/20 03:31 Sputum - Suctioned Gram Stain - Final 06/05/20 03:31 Sputum - Suctioned Sputum Culture - Final 06/04/20 11:35 Urine Catheterized - Powers Catheter Urine Culture - Final No growth. Assessment and Plan (1) Alcohol withdrawal syndrome: Status: Acute (2) Depression: Status: Inactive (3) HTN (hypertension): Status: Acute (4) Sleep apnea: Status: Acute Assessment and Plan: 60yo M with PMHx EtOH abuse, MJ, HTN, obesity originally admitted for EtOH withdrawal 05/29/20 hospital course complicated by cardiopulmonary arrest 06/04/20, resuscitated + intubated ICU course complicated by [facility] requiring temporary HD, drug fever, decompensated R-sided CHF, new-onset AF, and encephalopathy tracheostomy and PEG tube 06/16/20 weaned to trach collar 06/28/20 stepped down to IMC status 06/30/20 changed to uncuffed trach 07/02/20 awaiting LTACH placement 1. HyperK resolved monitor labs intermittently 2. acute hypoxic respiratory failure now trach dependent, on trach collar fiO2 30% 3. acute/chronic R-sided HF continue digoxin, metoprolol, spironolactone, lisinopril, and furosemide [maintenance]; appears euvolemic at this point 4. AF continue metoprolol for rate control continue apixaban for anticoagulation 5. [facility] requiring HD resolved 6. encephalopathy s/p cardiac arrest + prolonged ICU course. slowly improving. MRI 06/14/20 no acute disease. tube feeds: Promote 75 mL/hr + free water 120 mL q6h originally treated with phenobarbital for EtOH withdrawal + thiamine for suspected Wernicke encephalopathy, resolved Full Code DVT pptx, eliquis dispo: pending placement -- medically stable for transfer
[2020-07-08] VITALS (11 sets, daily range): BP systolic 119–146; BP diastolic 63–80; PULSE 83–112; RESP 14–20; TEMP 36.1–37.3; O2SAT 93–100
--- NOTE | 2020-07-08 | XR_ITS ---
EXAMINATION: XR CHEST CLINICAL INFORMATION: Fever. COMPARISON: Most recent chest radiograph dated 06/25/2020. TECHNIQUE: Frontal view of the chest was obtained. FINDINGS: Tracheostomy in appropriate position. No focal airspace consolidation. No pleural effusion or pneumothorax. Stable cardiomediastinal silhouette. No acute osseous abnormality. XR/XR chest 1V IMPRESSION: No acute cardiopulmonary findings.
[2020-07-08] MEDS: LORazepam 2 MG/ML VIAL 1 MG IVPUSH (03:45)
[2020-07-08 07:55] LABS: MANUAL DIFF FLAG NO
[2020-07-08 07:59] LABS: Basophils Absolute Auto 0.1 X10*3/uL (0.0-0.2); Basophils Percent Auto 0.5 % (0-2); Eosinophils Absolute Auto 0.1 X10*3/uL (0.0-0.4); Eosinophils Percent Auto 0.6 % (0-4); Hematocrit 42.6 % (42-52); Hemoglobin 13.4 g/dl (14.0-18.0); Imm Gran Abs Auto 0.06 X10*3/uL (0.00-0.03); Imm Gran Pct Auto 0.3 % (0.0-0.4); Lymphocytes Absolute Auto 3.3 X10*3/uL (1.2-4.9); Mean Corpuscular HGB Conc 31.5 g/dl (31.0-36.0); Mean Corpuscular Hemoglobin 30.8 pg (27.0-33.0); Mean Corpuscular Volume 97.9 fL (80-98); Mean Platelet Volume 12.5 fL (9.4-12.4); Monocytes Absolute Auto 1.5 X10*3/uL (0.1-1.2); Monocytes Percent Auto 8.6 % (2-11); Neutrophils Absolute Auto 12.2 X10*3/uL (2.0-8.3); Platelet Count 297 X10*3/uL (160-400); Red Blood Count 4.35 X10*6/uL (4.60-5.80); Red Cell Distribution Width 14.5 % (11.0-16.0); White Blood Count 17.2 X10*3/uL (4.8-10.8)
[2020-07-08 08:16] LABS: Lactic Acid 1.4 mmol/L (0.5-2.0)
[2020-07-08 08:21] LABS: Anion Gap 18 (12-20); Blood Urea Nitrogen 70 mg/dL (9-16); Calcium 10.1 mg/dL (8.4-10.2); Carbon Dioxide 34 mmol/L (22-29); Chloride 98 mmol/L (96-108); Creatinine Clr Calc Pharmacy 51.9; Estimated Glomerular Filt Rate 38; Glucose Random 198 mg/dL (60-115); Potassium 5.4 mmol/l (3.3-5.1); Sodium 145 mmol/L (135-145)
[2020-07-08] MEDS: Acetaminophen 325 MG TABLET 650 MG PO (09:00)
[2020-07-08] MEDS: Furosemide 40 MG TABLET PO (09:01)
[2020-07-08] MEDS: Chlorhexidine Gluc Oral Rinse 15 ML MOUTHWASH BUCCAL ×3 (09:01→20:43)
[2020-07-08] MEDS: 0.9 % Sodium Chloride Flush 3 ML SYRINGE IVFLUSH ×2 (09:01→13:43)
[2020-07-08] MEDS: Apixaban 5 MG TABLET G-TUBE ×2 (09:01→20:43)
[2020-07-08] MEDS: lisinopriL 40 MG TABLET PO (09:02)
[2020-07-08] MEDS: Metoprolol Tartrate 25 MG TABLET PO ×2 (09:02→20:43)
[2020-07-08] MEDS: Digoxin 0.25 MG TABLET G-TUBE (09:03)
[2020-07-08] MEDS: Spironolactone 25 MG TABLET PO (09:03)
--- NOTE | 2020-07-08 10:23 | MHC.SLORD ---
[facility] attempted to see pt this morning. Pt not appropriate for PO trials due to AMS. Oral care was attempted, however pt observed to clench mouth shut in refusal. [facility] will continue to follow and re-attempt PO trials tomorrow morning. Name: Esteban Galindo Date of : 1960 Age: 60 Date of Registration: 05/30/20 Speech Language Pathology Order Status:
--- NOTE | 2020-07-08 12:33 | P.PNIM_ITS ---
Subjective Subjective Date of Service: 07/08/20 Interval History: seen and examined per RN report -- patient had fever this morning, none documented remains otherwise unchanged Physical Exam Vital Signs: Vital Signs: Last Vital Signs Temp 97.9 F 07/08/20 12:00 Pulse 97 07/08/20 12:00 Resp 17 07/08/20 12:00 BP 119/80 07/08/20 12:00 Pulse Ox 94 07/08/20 12:00 Body Mass Index 29.0 Const: Other: Gen - in no acute distress HEENT- sclera anicteric, moist mucus membranes Neck - uncuffed tracheostomy, trach collar at fiO2 30% Lungs - clear to auscultation bilaterally Heart - irregularly irregular with no murmurs Abd - soft, non-tender, non-distended; PEG tube running feeds - Powers draining clear urine Ext - no edema Skin - warm/well-perfused Neuro - confused Objective Data Current Medications Generic Name Dose Route Start Last Admin Trade Name Freq PRN Reason Stop Dose Admin Acetaminophen 650 mg 07/08/20 06:36 07/08/20 09:00 Acetaminophen 325 Mg Tablet PO 650 mg Q8H PRN Administration Fever Apixaban 5 mg 06/18/20 14:30 07/08/20 09:01 Apixaban 5 Mg Tablet G-TUBE 5 mg BID JESSICA Administration Chlorhexidine Gluconate 15 ml 06/05/20 02:00 07/08/20 09:01 Chlorhexidine Gluc Oral Rinse 15 Ml Mouthwash BUCCAL 15 ml TID JESSICA Administration Digoxin 0.25 mg 06/21/20 09:00 07/08/20 09:03 Digoxin 0.25 Mg Tablet G-TUBE 0.25 mg DAILY JESSICA Administration Furosemide 40 mg 06/27/20 09:00 07/08/20 09:01 Furosemide 40 Mg Tablet PO 40 mg DAILY JESSICA Administration Protocol Lisinopril 40 mg 06/13/20 09:00 07/08/20 09:02 Lisinopril 40 Mg Tablet PO 40 mg DAILY JESSICA Administration Protocol Metoprolol Tartrate 25 mg 06/21/20 21:00 07/08/20 09:02 Metoprolol Tartrate 25 Mg Tablet PO 25 mg BID JESSICA Administration Protocol Omeprazole 40 mg 06/13/20 09:15 07/08/20 09:01 Omeprazole 20 Mg/10 Ml Susp.Recon PO 40 mg DAILY@0630 JESSICA Administration Oxycodone HCl 5 mg 07/04/20 00:27 07/05/20 00:37 Oxycodone Hcl Immed Release 5 Mg Tablet G-TUBE 5 mg Q6H PRN Administration Pain, Severe (Pain Scale 7-10) Sodium Chloride 3 ml 05/30/20 08:00 07/08/20 09:01 0.9 % Sodium Chloride Flush 3 Ml Syringe IVFLUSH 3 ml QSHIFT JESSICA Administration Spironolactone 25 mg 06/24/20 11:15 07/08/20 09:03 Spironolactone 25 Mg Tablet PO 25 mg DAILY JESSICA Administration Protocol Labs CBC & Chem 7: 07/08/20 07:39 07/08/20 07:39 Microbiology Microbiology Results: Microbiology 06/16/20 18:53 Bronch Lll - Bronchial Fungal Identification - Preliminary No growth after 2 weeks. 06/26/20 19:31 Blood - Venous Blood Culture - Final No growth after 5 days. 06/26/20 19:37 Blood - Venous Blood Culture - Final No growth after 5 days. 06/25/20 00:48 Blood - Venous Blood Culture - Final No growth after 5 days. 06/25/20 00:45 Blood - Venous Blood Culture - Final No growth after 5 days. 06/27/20 08:40 Sputum - Expectorated Gram Stain - Final 06/27/20 08:40 Sputum - Expectorated Sputum Culture - Final 06/26/20 20:37 Urine Powers Port Urine Culture - Final No growth. 06/20/20 17:59 Blood - Venous Blood Culture - Final No growth after 5 days. 06/20/20 17:52 Blood - Venous Blood Culture - Final No growth after 5 days. 06/23/20 Unknown Sputum - Induced Gram Stain - Final 06/23/20 Unknown Sputum - Induced Sputum Culture - Final 06/23/20 12:52 Urine Powers Port Urine Culture - Final No growth. 06/17/20 06:12 Blood - Venous Blood Culture - Final No growth after 5 days. 06/17/20 06:08 Blood - Venous Blood Culture - Final No growth after 5 days. 06/16/20 18:53 Bronch Lll - Bronchial Gram Stain - Final 06/16/20 18:53 Bronch Lll - Bronchial Routine Culture - Final Escherichia coli 06/18/20 10:08 Sputum - Suctioned Gram Stain - Final 06/18/20 10:08 Sputum - Suctioned Sputum Culture - Final Escherichia coli 06/09/20 13:11 Stool Stool Culture - Final 06/05/20 03:40 Blood - Venous Blood Culture - Final No growth after 5 days. 06/05/20 03:36 Blood - Venous Blood Culture - Final No growth after 5 days. 06/04/20 11:45 Blood - Venous Blood Culture - Final No growth after 5 days. 06/04/20 11:45 Blood - Venous Blood Culture - Final No growth after 5 days. 06/05/20 03:31 Sputum - Suctioned Gram Stain - Final 06/05/20 03:31 Sputum - Suctioned Sputum Culture - Final 06/04/20 11:35 Urine Catheterized - Powers Catheter Urine Culture - Final No growth. Assessment and Plan (1) Alcohol withdrawal syndrome: Status: Acute (2) Depression: Status: Inactive (3) HTN (hypertension): Status: Acute (4) Sleep apnea: Status: Acute Assessment and Plan: 60yo M with PMHx EtOH abuse, MJ, HTN, obesity originally admitted for EtOH withdrawal 05/29/20 hospital course complicated by cardiopulmonary arrest 06/04/20, resuscitated + intubated ICU course complicated by MERLIN requiring temporary HD, drug fever, decompensated R-sided CHF, new-onset AF, and encephalopathy tracheostomy and PEG tube 06/16/20 weaned to trach collar 06/28/20 stepped down to IMC status 06/30/20 changed to uncuffed trach 07/02/20 awaiting LTACH placement 1. Question fever reported per engineer technical staff early this AM (around ? 6 AM -- none documented in vitals repeat blood cx ordered, will add ua and cxr clincially doesnt appear changed hold off antibiotics and observe 2. HyperK resolved monitor labs intermittently 3. acute hypoxic respiratory failure now trach dependent, on trach collar fiO2 30% 4. acute/chronic R-sided HF continue digoxin, metoprolol, spironolactone, lisinopril, and furosemide [mainte nance]; appears euvolemic at this point 5. AF continue metoprolol for rate control continue apixaban for anticoagulation 6. MERLIN requiring HD resolved 7. encephalopathy s/p cardiac arrest + prolonged ICU course. slowly improving. MRI 06/14/20 no acute disease. tube feeds: Promote 75 mL/hr + free water 120 mL q6h originally treated with phenobarbital for EtOH withdrawal + thiamine for suspected Wernicke encephalopathy, resolved Full Code DVT pptx, eliquis dispo: pending placement -- medically stable for transfer
[2020-07-08] MEDS: 0.9 % Sodium Chloride 1,000 ML 100 ML IVCONT (13:42)
[2020-07-08] MEDS: Sodium Polystyrene Sulfon/Sorb 15 GM/60 ML ORAL.SUSP PO (13:43)
[2020-07-08 13:57] LABS: Glucose Urine UA NEG (NEG); Leukocyte Esterase Urine NEG (NEG); Nitrite Urine NEG (NEG); PH >= 9.0 (5.0-8.0); Urine Blood 1+ (NEG); Urine Ketones NEG (NEG)
[2020-07-08 13:59] LABS: Appearance Urine HAZY; Color Urine YELLOW; Urine Protein 1+ MG/DL (NEG-TRACE)
[2020-07-08 14:29] LABS: Squamous Epithelial Cell Urine 1+ /LPF; WBC Urine 0 /HPF (0-4)
[2020-07-09] VITALS (8 sets, daily range): BP systolic 112–124; BP diastolic 55–75; PULSE 75–98; RESP 19–22; TEMP 36.3–36.7; O2SAT 91–97
--- NOTE | 2020-07-09 | CT_ITS ---
EXAMINATION: CT PELVIS WITHOUT CONTRAST CLINICAL INFORMATION: Pain. Please include right hip to evaluate for fracture COMPARISON: CT 06/25/2020 TECHNIQUE: Helical scanning was performed with submillimeter collimation through the pelvis. Sagittal and coronal multiplanar 2-D reconstructions were obtained. This CT examination was performed using dose optimization techniques as appropriate, variously including the following: *Automated exposure control *Adjustment of mA and/or kV according to patient size (this includes techniques or standardized protocols for targeted exams where dose is matched to indication/reason for exam; i.e. extremities or head) *Use of iterative reconstruction technique DLP: 621 mGy-cm FINDINGS: There is new streaky calcification involving the bilateral pelvic sidewalls and musculature along the posterior aspect of the acetabula bilaterally. Previously these areas were enlarged and edematous with adjacent ill-defined fat stranding, no longer as conspicuous. Severe facet arthropathy of the lower lumbar spine. Degenerative changes of the bilateral sacroiliac joints. No definite hip joint effusion. No hip or pelvic fracture seen. Normal appendix. Small bowel and colon are nondilated. Bladder collapsed. The prostate and seminal vesicles are normal. Severe circumferential calcified atherosclerotic changes of the normal caliber aorta. CT/CT pelvis wo con IMPRESSION: There are new streaky intramuscular calcifications involving the bilateral obturator internus and superior gemellus musculature, which were previously it dominant cyst with adjacent fluid and fat stranding. The appearance is nonspecific but most suggestive of sequelae of an infectious or inflammatory myositis, with bilateral involvement. No hip or pelvic fracture seen.
--- NOTE | 2020-07-09 | XR_ITS ---
EXAMINATION: XR HIP, RIGHT CLINICAL INFORMATION: Pain. Rule out fracture COMPARISON: CT abdomen of June 25, 2020 TECHNIQUE: Two views of the right hip. FINDINGS: Patient was uncooperative and films are suboptimal. On the provided imaging no acute fracture or dislocation is evident. No destructive bony lesion involving the femoral head is seen. Vascular calcifications are present. XR/XR hip RT 1V IMPRESSION: Limited evaluation of the right hip without definite fracture or dislocation.
[2020-07-09 06:55] LABS: Hematocrit 42.4 % (42-52); Hemoglobin 13.3 g/dl (14.0-18.0); Mean Corpuscular HGB Conc 31.4 g/dl (31.0-36.0); Mean Corpuscular Hemoglobin 31.1 pg (27.0-33.0); Mean Corpuscular Volume 99.3 fL (80-98); Mean Platelet Volume 12.9 fL (9.4-12.4); Platelet Count 238 X10*3/uL (160-400); Red Blood Count 4.27 X10*6/uL (4.60-5.80); Red Cell Distribution Width 14.5 % (11.0-16.0); White Blood Count 12.6 X10*3/uL (4.8-10.8)
[2020-07-09 07:21] LABS: Anion Gap 18 (12-20); Blood Urea Nitrogen 79 mg/dL (9-16); Calcium 9.5 mg/dL (8.4-10.2); Carbon Dioxide 31 mmol/L (22-29); Chloride 101 mmol/L (96-108); Creatinine Clr Calc Pharmacy 56.8; Estimated Glomerular Filt Rate 42; Glucose Random 165 mg/dL (60-115); Potassium 4.7 mmol/l (3.3-5.1); Sodium 145 mmol/L (135-145)
[2020-07-09] MEDS: Acetaminophen 325 MG TABLET 650 MG PO (08:39)
[2020-07-09] MEDS: Apixaban 5 MG TABLET G-TUBE ×2 (08:39→21:04)
[2020-07-09] MEDS: Nicotine 21 MG PATCH.TD24 TRANSDERMA (08:40)
[2020-07-09] MEDS: Digoxin 0.25 MG TABLET G-TUBE (08:42)
[2020-07-09] MEDS: Metoprolol Tartrate 25 MG TABLET PO ×2 (08:43→21:04)
--- NOTE | 2020-07-09 10:16 | HO.PM.IMPN ---
Subjective Subjective Date of Service: 07/09/20 Interval History: seen and examined no fevers reported PT reports patient resistant passive ROM on RLE Physical Exam Vital Signs: Vital Signs: Last Vital Signs Temp 97.5 F 07/09/20 08:00 Pulse 85 07/09/20 08:43 Resp 22 H 07/09/20 08:00 BP 112/55 L 07/09/20 08:43 Pulse Ox 96 07/09/20 08:00 Body Mass Index 29.0 Const: Other: Gen - in no acute distress HEENT- sclera anicteric, moist mucus membranes Neck - uncuffed tracheostomy, trach collar at fiO2 30% Lungs - clear to auscultation bilaterally Heart - irregularly irregular with no murmurs Abd - soft, non-tender, non-distended; PEG tube running feeds - Powers draining clear urine Ext - no edema, wincing in pain with movement of RLE Skin - warm/well-perfused Neuro - confused Objective Data Current Medications Generic Name Dose Route Start Last Admin Trade Name Freq PRN Reason Stop Dose Admin Acetaminophen 650 mg 07/08/20 06:36 07/09/20 08:39 Acetaminophen 325 Mg Tablet PO 650 mg Q8H PRN Administration Fever Apixaban 5 mg 06/18/20 14:30 07/09/20 08:39 Apixaban 5 Mg Tablet G-TUBE 5 mg BID JESSICA Administration Chlorhexidine Gluconate 15 ml 06/05/20 02:00 07/09/20 08:43 Chlorhexidine Gluc Oral Rinse 15 Ml Mouthwash BUCCAL Not Given TID JESSICA Digoxin 0.25 mg 06/21/20 09:00 07/09/20 08:42 Digoxin 0.25 Mg Tablet G-TUBE 0.25 mg DAILY JESSICA Administration Metoprolol Tartrate 25 mg 06/21/20 21:00 07/09/20 08:43 Metoprolol Tartrate 25 Mg Tablet PO 25 mg BID JESSICA Administration Protocol Nicotine 21 mg 07/09/20 09:00 07/09/20 08:40 Nicotine 21 Mg Patch.Td24 TRANSDERMA 21 mg DAILY JESSICA Administration Omeprazole 40 mg 06/13/20 09:15 07/09/20 08:39 Omeprazole 20 Mg/10 Ml Susp.Recon PO 40 mg DAILY@0630 JESSICA Administration Sodium Chloride 3 ml 05/30/20 08:00 07/09/20 08:39 0.9 % Sodium Chloride Flush 3 Ml Syringe IVFLUSH Not Given QSHIFT [facility] Labs CBC & Chem 7: 07/09/20 05:40 07/09/20 05:40 Microbiology Microbiology Results: Microbiology 07/08/20 07:39 Blood - Venous Blood Culture - Preliminary No growth after 24 hours. 07/08/20 07:39 Blood - Venous Blood Culture - Preliminary No growth after 24 hours. 06/16/20 18:53 Bronch Lll - Bronchial Fungal Identification - Preliminary No growth after 2 weeks. 06/26/20 19:31 Blood - Venous Blood Culture - Final No growth after 5 days. 06/26/20 19:37 Blood - Venous Blood Culture - Final No growth after 5 days. 06/25/20 00:48 Blood - Venous Blood Culture - Final No growth after 5 days. 06/25/20 00:45 Blood - Venous Blood Culture - Final No growth after 5 days. 06/27/20 08:40 Sputum - Expectorated Gram Stain - Final 06/27/20 08:40 Sputum - Expectorated Sputum Culture - Final 06/26/20 20:37 Urine Powers Port Urine Culture - Final No growth. 06/20/20 17:59 Blood - Venous Blood Culture - Final No growth after 5 days. 06/20/20 17:52 Blood - Venous Blood Culture - Final No growth after 5 days. 06/23/20 Unknown Sputum - Induced Gram Stain - Final 06/23/20 Unknown Sputum - Induced Sputum Culture - Final 06/23/20 12:52 Urine Powers Port Urine Culture - Final No growth. 06/17/20 06:12 Blood - Venous Blood Culture - Final No growth after 5 days. 06/17/20 06:08 Blood - Venous Blood Culture - Final No growth after 5 days. 06/16/20 18:53 Bronch Lll - Bronchial Gram Stain - Final 06/16/20 18:53 Bronch Lll - Bronchial Routine Culture - Final Escherichia coli 06/18/20 10:08 Sputum - Suctioned Gram Stain - Final 06/18/20 10:08 Sputum - Suctioned Sputum Culture - Final Escherichia coli 06/09/20 13:11 Stool Stool Culture - Final 06/05/20 03:40 Blood - Venous Blood Culture - Final No growth after 5 days. 06/05/20 03:36 Blood - Venous Blood Culture - Final No growth after 5 days. 06/04/20 11:45 Blood - Venous Blood Culture - Final No growth after 5 days. 06/04/20 11:45 Blood - Venous Blood Culture - Final No growth after 5 days. 06/05/20 03:31 Sputum - Suctioned Gram Stain - Final 06/05/20 03:31 Sputum - Suctioned Sputum Culture - Final 06/04/20 11:35 Urine Catheterized - Powers Catheter Urine Culture - Final No growth. Assessment and Plan (1) Alcohol withdrawal syndrome: Status: Acute (2) Depression: Status: Inactive (3) HTN (hypertension): Status: Acute (4) Sleep apnea: Status: Acute Assessment and Plan: 60yo M with PMHx EtOH abuse, MJ, HTN, obesity originally admitted for EtOH withdrawal 05/29/20 hospital course complicated by cardiopulmonary arrest 06/04/20, resuscitated + intubated ICU course complicated by MERLIN requiring temporary HD, drug fever, decompensated R-sided CHF, new-onset AF, and encephalopathy tracheostomy and PEG tube 06/16/20 weaned to trach collar 06/28/20 stepped down to IMC status 06/30/20 changed to uncuffed trach 07/02/20 awaiting LTACH placement 1. Question fever monitor no documented fever continue monitoring 2. ? R hip pain difficult to ascertain, but PT reports pt resistant to movement will check Hip XR 3. HyperK, MERLIN hyperK resolved SCr increased last 48 hours, but now down-trending after 1L gentle hydration diruretics, AIDAN-I on hold 4. acute hypoxic respiratory failure now trach dependent, on trach collar fiO2 30% 5. acute/chronic R-sided HF continue digoxin, metoprolol, spironolactone, lisinopril, and furosemide [maintenance]; appears euvolemic at this point 6. AF continue metoprolol for rate control continue apixaban for anticoagulation 7. encephalopathy s/p cardiac arrest + prolonged ICU course. slowly improving. MRI 06/14/20 no acute disease. tube feeds: Promote 75 mL/hr + free water 120 mL q6h originally treated with phenobarbital for EtOH withdrawal + thiamine for suspected Wernicke encephalopathy, resolved Full Code DVT pptx, eliquis dispo:pending placement
--- NOTE | 2020-07-09 10:17 | MHC.CM.PN ---
[facility] is interested and might have a bed offer. CM updated STR via allscripts. Patient is on 9 liters O2 via trach collar. Trach changed to uncuffed on 07/02. Patient has been tolerating Gtube feeds. Patient can be resistant to personal care. Discharge plan is to [facility]/LTACH via BLS transport. CM will continue to follow for discharge needs.
[2020-07-09 11:11] LABS: Magnesium 2.8 mg/dL (1.6-2.6)
--- NOTE | 2020-07-09 14:28 | MHC.CLN ---
F/U PT TOLERATING PROMOTE AT MAX GOAL 75CC/HR WITH 120CC FREE WATER Q 6HRS PROVIDES 1800KCALS (23KCALS/KG BASED ON IBW), 112.5G PROTEIN (1.4G/KG), 1990CC TOTAL WATER FROM FORMULA AND FLUSHES (25CC/KG BASED ON IBW) NOTED FEVER-ADJUST FREE WATER FLUSHES NEEDED (240CC Q 6HRS) CONTINUE TO MONITOR TOLERANCE, RESIDUALS AND LYTES FOLLOWING
[2020-07-09] MEDS: 0.9 % Sodium Chloride Flush 3 ML SYRINGE IVFLUSH ×2 (17:12→21:13)
[2020-07-09] MEDS: Chlorhexidine Gluc Oral Rinse 15 ML MOUTHWASH BUCCAL (21:04)
[2020-07-09] MEDS: Haloperidol Lactate 5 MG/ML VIAL 2.5 MG IVPUSH (22:40)
[2020-07-10] VITALS (9 sets, daily range): BP systolic 134–164; BP diastolic 56–87; PULSE 80–86; RESP 16–20; TEMP 36.6–37.2; O2SAT 92–98
[2020-07-10 06:39] LABS: Anion Gap 17 (12-20); Blood Urea Nitrogen 64 mg/dL (9-16); Calcium 9.7 mg/dL (8.4-10.2); Carbon Dioxide 27 mmol/L (22-29); Chloride 104 mmol/L (96-108); Creatinine Clr Calc Pharmacy 68.1; Estimated Glomerular Filt Rate 51; Glucose Random 169 mg/dL (60-115); Potassium 4.9 mmol/l (3.3-5.1); Sodium 143 mmol/L (135-145)
[2020-07-10] MEDS: Metoprolol Tartrate 25 MG TABLET PO ×2 (09:19→21:48)
[2020-07-10] MEDS: Apixaban 5 MG TABLET G-TUBE ×2 (09:19→21:49)
[2020-07-10] MEDS: Nicotine 21 MG PATCH.TD24 TRANSDERMA (09:19)
[2020-07-10] MEDS: Digoxin 0.25 MG TABLET G-TUBE (09:19)
[2020-07-10] MEDS: Chlorhexidine Gluc Oral Rinse 15 ML MOUTHWASH BUCCAL ×3 (09:20→21:49)
[2020-07-10] MEDS: 0.9 % Sodium Chloride Flush 3 ML SYRINGE IVFLUSH ×3 (09:20→21:49)
--- NOTE | 2020-07-10 09:59 | MHC.CM.PN ---
CM spoke with HCP/brother Ortiz by phone and updated patient is now requiring a 1:1 sitter for agitation and patient pulling on lines. Also requested permission from Ortiz to speak with patient's Olga [phone], Ortiz would not give permission. Ortiz states Olga can call him for updates. CM spoke with Olga and informed her Ortiz would not [email or web address] permission to speak with her but states she can call him for updates. CM will continue to follow patient for discharge needs.
--- NOTE | 2020-07-10 16:30 | P.PNIM_ITS ---
Subjective Subjective Date of Service: 07/10/20 Interval History: seen and examined awake and alert, calm this AM Physical Exam Vital Signs: Vital Signs: Last Vital Signs Temp 98 F 07/10/20 15:36 Pulse 83 07/10/20 15:36 Resp 18 07/10/20 15:36 BP 154/75 H 07/10/20 15:36 Pulse Ox 94 07/10/20 15:36 Body Mass Index 29.0 Const: Other: Gen - in no acute distress HEENT- sclera anicteric, moist mucus membranes Neck - uncuffed tracheostomy, trach collar Lungs - clear to auscultation bilaterally Heart - irregularly irregular with no murmurs Abd - soft, non-tender, non-distended; PEG tube running feeds - Powers draining clear urine Ext - no edema, wincing in pain with movement of RLE Skin - warm/well-perfused Neuro - confused Objective Data Current Medications Generic Name Dose Route Start Last Admin Trade Name Freq PRN Reason Stop Dose Admin Acetaminophen 650 mg 07/08/20 06:36 07/09/20 08:39 Acetaminophen 325 Mg Tablet PO 650 mg Q8H PRN Administration Fever Apixaban 5 mg 06/18/20 14:30 07/10/20 09:19 Apixaban 5 Mg Tablet G-TUBE 5 mg BID JESSICA Administration Chlorhexidine Gluconate 15 ml 06/05/20 02:00 07/10/20 09:20 Chlorhexidine Gluc Oral Rinse 15 Ml Mouthwash BUCCAL 15 ml TID JESSICA Administration Digoxin 0.25 mg 06/21/20 09:00 07/10/20 09:19 Digoxin 0.25 Mg Tablet G-TUBE 0.25 mg DAILY JESSICA Administration Metoprolol Tartrate 25 mg 06/21/20 21:00 07/10/20 09:19 Metoprolol Tartrate 25 Mg Tablet PO 25 mg BID JESSICA Administration Protocol Nicotine 21 mg 07/09/20 09:00 07/10/20 09:19 Nicotine 21 Mg Patch.Td24 TRANSDERMA 21 mg DAILY JESSICA Administration Omeprazole 40 mg 06/13/20 09:15 07/10/20 06:01 Omeprazole 20 Mg/10 Ml Susp.Recon PO 40 mg DAILY@0630 JESSICA Administration Sodium Chloride 3 ml 05/30/20 08:00 07/10/20 09:20 0.9 % Sodium Chloride Flush 3 Ml Syringe IVFLUSH 3 ml QSHIFT [facility] Administration Labs CBC & Chem 7: 07/09/20 05:40 07/10/20 05:12 Microbiology Microbiology Results: Microbiology 07/08/20 07:39 Blood - Venous Blood Culture - Preliminary No growth after 48 hours. 07/08/20 07:39 Blood - Venous Blood Culture - Preliminary No growth after 48 hours. 06/16/20 18:53 Bronch Lll - Bronchial Fungal Identification - Preliminary No growth after 2 weeks. 06/26/20 19:31 Blood - Venous Blood Culture - Final No growth after 5 days. 06/26/20 19:37 Blood - Venous Blood Culture - Final No growth after 5 days. 06/25/20 00:48 Blood - Venous Blood Culture - Final No growth after 5 days. 06/25/20 00:45 Blood - Venous Blood Culture - Final No growth after 5 days. 06/27/20 08:40 Sputum - Expectorated Gram Stain - Final 06/27/20 08:40 Sputum - Expectorated Sputum Culture - Final 06/26/20 20:37 Urine Powers Port Urine Culture - Final No growth. 06/20/20 17:59 Blood - Venous Blood Culture - Final No growth after 5 days. 06/20/20 17:52 Blood - Venous Blood Culture - Final No growth after 5 days. 06/23/20 Unknown Sputum - Induced Gram Stain - Final 06/23/20 Unknown Sputum - Induced Sputum Culture - Final 06/23/20 12:52 Urine Powers Port Urine Culture - Final No growth. 06/17/20 06:12 Blood - Venous Blood Culture - Final No growth after 5 days. 06/17/20 06:08 Blood - Venous Blood Culture - Final No growth after 5 days. 06/16/20 18:53 Bronch Lll - Bronchial Gram Stain - Final 06/16/20 18:53 Bronch Lll - Bronchial Routine Culture - Final Escherichia coli 06/18/20 10:08 Sputum - Suctioned Gram Stain - Final 06/18/20 10:08 Sputum - Suctioned Sputum Culture - Final Escherichia coli 06/09/20 13:11 Stool Stool Culture - Final 06/05/20 03:40 Blood - Venous Blood Culture - Final No growth after 5 days. 06/05/20 03:36 Blood - Venous Blood Culture - Final No growth after 5 days. 06/04/20 11:45 Blood - Venous Blood Culture - Final No growth after 5 days. 06/04/20 11:45 Blood - Venous Blood Culture - Final No growth after 5 days. 06/05/20 03:31 Sputum - Suctioned Gram Stain - Final 06/05/20 03:31 Sputum - Suctioned Sputum Culture - Final 06/04/20 11:35 Urine Catheterized - Powers Catheter Urine Culture - Final No growth. Assessment and Plan (1) Alcohol withdrawal syndrome: Status: Acute (2) Depression: Status: Inactive (3) HTN (hypertension): Status: Acute (4) Sleep apnea: Status: Acute Assessment and Plan: 60yo M with PMHx EtOH abuse, MJ, HTN, obesity originally admitted for EtOH withdrawal 05/29/20 hospital course complicated by cardiopulmonary arrest 06/04/20, resuscitated + intubated ICU course complicated by MERLIN requiring temporary HD, drug fever, decompensated R-sided CHF, new-onset AF, and encephalopathy tracheostomy and PEG tube 06/16/20 weaned to trach collar 06/28/20 stepped down to IMC status 06/30/20 changed to uncuffed trach 07/02/20 awaiting LTACH placement 1. Question fever no fevers > 48 hours cultures @ 48 2. R leg pain appears to have resolved CT negative for fracture 3. HyperK, MERLIN hyperK resolved SCr down-trending suspected from over-diuresis will slowly add back diuretics 4. acute hypoxic respiratory failure now trach dependent, on trach collar fiO2 30% 5. acute/chronic R-sided HF continue digoxin, metoprolol, spironolactone, lisinopril, and furosemide [maintenance] - due to MERLIN as above, reintroduce slowly 6. AF continue metoprolol for rate control continue apixaban for anticoagulation 7. encephalopathy s/p cardiac arrest + prolonged ICU course. slowly improving. MRI 06/14/20 no acute disease. tube feeds: Promote 75 mL/hr + free water 120 mL q6h originally treated with phenobarbital for EtOH withdrawal + thiamine for suspected Wernicke encephalopathy, resolved psych input to help with his behaviors Full Code DVT pptx, eliquis dispo:pending placement
[2020-07-11] VITALS (7 sets, daily range): BP systolic 125–144; BP diastolic 69–79; PULSE 74–94; RESP 16–20; TEMP 36.6–37.2; O2SAT 95–98; BMI 25.9
[2020-07-11 07:11] LABS: Anion Gap 18 (12-20); Blood Urea Nitrogen 51 mg/dL (9-16); Calcium 10.1 mg/dL (8.4-10.2); Carbon Dioxide 27 mmol/L (22-29); Chloride 103 mmol/L (96-108); Creatinine Clr Calc Pharmacy 69.2; Estimated Glomerular Filt Rate 59; Glucose Random 154 mg/dL (60-115); Potassium 4.9 mmol/l (3.3-5.1); Sodium 143 mmol/L (135-145)
[2020-07-11] MEDS: 0.9 % Sodium Chloride Flush 3 ML SYRINGE IVFLUSH ×3 (08:55→22:02)
[2020-07-11] MEDS: Nicotine 21 MG PATCH.TD24 TRANSDERMA (08:56)
[2020-07-11] MEDS: Metoprolol Tartrate 25 MG TABLET PO ×2 (08:56→22:02)
[2020-07-11] MEDS: Digoxin 0.25 MG TABLET G-TUBE (08:56)
[2020-07-11] MEDS: Apixaban 5 MG TABLET G-TUBE ×2 (08:56→22:02)
[2020-07-11] MEDS: Chlorhexidine Gluc Oral Rinse 15 ML MOUTHWASH BUCCAL ×3 (08:56→22:02)
--- NOTE | 2020-07-11 12:08 | HO.PM.IMPN ---
Subjective Subjective Date of Service: 07/11/20 Interval History: seen and examined awake and alert, cooperative even talking today, knows hes the hospital Physical Exam Vital Signs: Vital Signs: Last Vital Signs Temp 98.7 F 07/11/20 11:21 Pulse 74 07/11/20 11:21 Resp 20 07/11/20 11:21 BP 136/74 07/11/20 11:21 Pulse Ox 96 07/11/20 11:21 Body Mass Index 25.9 Const: Other: Gen - in no acute distress HEENT- sclera anicteric, moist mucus membranes Neck - uncuffed tracheostomy, trach collar Lungs - clear to auscultation bilaterally Heart - irregularly irregular with no murmurs Abd - soft, non-tender, non-distended; PEG tube running feeds - Powers draining clear urine Ext - no edema, wincing in pain with movement of RLE Skin - warm/well-perfused Neuro - confused, but mentation improved Objective Data Current Medications Generic Name Dose Route Start Last Admin Trade Name Freq PRN Reason Stop Dose Admin Acetaminophen 650 mg 07/08/20 06:36 07/09/20 08:39 Acetaminophen 325 Mg Tablet PO 650 mg Q8H PRN Administration Fever Apixaban 5 mg 06/18/20 14:30 07/11/20 08:56 Apixaban 5 Mg Tablet G-TUBE 5 mg BID JESSICA Administration Chlorhexidine Gluconate 15 ml 06/05/20 02:00 07/11/20 08:56 Chlorhexidine Gluc Oral Rinse 15 Ml Mouthwash BUCCAL 15 ml TID JESSICA Administration Digoxin 0.25 mg 06/21/20 09:00 07/11/20 08:56 Digoxin 0.25 Mg Tablet G-TUBE 0.25 mg DAILY JESSICA Administration Lorazepam 1 mg 07/10/20 16:35 Lorazepam 2 Mg/Ml Vial IVPUSH Q6H PRN Anxiety Metoprolol Tartrate 25 mg 06/21/20 21:00 07/11/20 08:56 Metoprolol Tartrate 25 Mg Tablet PO 25 mg BID JESSICA Administration Protocol Nicotine 21 mg 07/09/20 09:00 07/11/20 08:56 Nicotine 21 Mg Patch.Td24 TRANSDERMA 21 mg DAILY JESSICA Administration Omeprazole 40 mg 06/13/20 09:15 07/11/20 05:42 Omeprazole 20 Mg/10 Ml Susp.Recon PO 40 mg DAILY@0630 [facility] Administration Sodium Chloride 3 ml 05/30/20 08:00 07/11/20 08:55 0.9 % Sodium Chloride Flush 3 Ml Syringe IVFLUSH 3 ml QSHIFT JESSICA Administration Labs CBC & Chem 7: 07/09/20 05:40 07/11/20 05:26 Microbiology Microbiology Results: Microbiology 07/08/20 07:39 Blood - Venous Blood Culture - Preliminary No growth after 48 hours. 07/08/20 07:39 Blood - Venous Blood Culture - Preliminary No growth after 48 hours. 06/16/20 18:53 Bronch Lll - Bronchial Fungal Identification - Preliminary No growth after 2 weeks. 06/26/20 19:31 Blood - Venous Blood Culture - Final No growth after 5 days. 06/26/20 19:37 Blood - Venous Blood Culture - Final No growth after 5 days. 06/25/20 00:48 Blood - Venous Blood Culture - Final No growth after 5 days. 06/25/20 00:45 Blood - Venous Blood Culture - Final No growth after 5 days. 06/27/20 08:40 Sputum - Expectorated Gram Stain - Final 06/27/20 08:40 Sputum - Expectorated Sputum Culture - Final 06/26/20 20:37 Urine Powers Port Urine Culture - Final No growth. 06/20/20 17:59 Blood - Venous Blood Culture - Final No growth after 5 days. 06/20/20 17:52 Blood - Venous Blood Culture - Final No growth after 5 days. 06/23/20 Unknown Sputum - Induced Gram Stain - Final 06/23/20 Unknown Sputum - Induced Sputum Culture - Final 06/23/20 12:52 Urine Powers Port Urine Culture - Final No growth. 06/17/20 06:12 Blood - Venous Blood Culture - Final No growth after 5 days. 06/17/20 06:08 Blood - Venous Blood Culture - Final No growth after 5 days. 06/16/20 18:53 Bronch Lll - Bronchial Gram Stain - Final 06/16/20 18:53 Bronch Lll - Bronchial Routine Culture - Final Escherichia coli 06/18/20 10:08 Sputum - Suctioned Gram Stain - Final 06/18/20 10:08 Sputum - Suctioned Sputum Culture - Final Escherichia coli 06/09/20 13:11 Stool Stool Culture - Final 06/05/20 03:40 Blood - Venous Blood Culture - Final No growth after 5 days. 06/05/20 03:36 Blood - Venous Blood Culture - Final No growth after 5 days. 06/04/20 11:45 Blood - Venous Blood Culture - Final No growth after 5 days. 06/04/20 11:45 Blood - Venous Blood Culture - Final No growth after 5 days. 06/05/20 03:31 Sputum - Suctioned Gram Stain - Final 06/05/20 03:31 Sputum - Suctioned Sputum Culture - Final 06/04/20 11:35 Urine Catheterized - Powers Catheter Urine Culture - Final No growth. Assessment and Plan (1) Alcohol withdrawal syndrome: Status: Acute (2) Depression: Status: Inactive (3) HTN (hypertension): Status: Acute (4) Sleep apnea: Status: Acute Assessment and Plan: 60yo M with PMHx EtOH abuse, MJ, HTN, obesity originally admitted for EtOH withdrawal 05/29/20 hospital course complicated by cardiopulmonary arrest 06/04/20, resuscitated + intubated ICU course complicated by MERLIN requiring temporary HD, drug fever, decompensated R-sided CHF, new-onset AF, and encephalopathy tracheostomy and PEG tube 06/16/20 weaned to trach collar 06/28/20 stepped down to IMC status 06/30/20 changed to uncuffed trach 07/02/20 awaiting LTACH placement 1. acute hypoxic respiratory failure now trach dependent, on trach collar fiO2 30% 2. HyperK, MERLIN both resolved will start PO lasix back starting tomorrow 3. acute/chronic R-sided HF continue digoxin, metoprolol, spironolactone, lisinopril, and furosemide -- discontinued due to MERLIN; will slowly add back 5. Fevers resolved, cultures negative 6. R leg pain resolved 7. AF continue metoprolol for rate control continue apixaban for anticoagulation 8. encephalopathy s/p cardiac arrest + prolonged ICU course. slowly improving. MRI 06/14/20 no acute disease. tube feeds: Promote 75 mL/hr + free water 120 mL q6h originally treated with phenobarbital for EtOH withdrawal + thiamine for suspected Wernicke encephalopathy, resolved more cooperative today Full Code DVT pptx, eliquis dispo:pending placement
--- NOTE | 2020-07-11 13:27 | MHC.CM.PN ---
Patient is on 8 liters O2 via trach collar, has peg tube for feedings. Patient is resistant to hands on care and does have a 1:1 sitter. Discharge plan is either LTACH or SNF, referrals made, no available bed yet. Patient will need BLS transport. CM will continue to follow patient for discharge needs.
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
[2020-07-12] VITALS (9 sets, daily range): BP systolic 119–154; BP diastolic 69–90; PULSE 85–98; RESP 18–22; TEMP 36.4–37.1; O2SAT 88–96
[2020-07-12] MEDS: LORazepam 2 MG/ML VIAL 1 MG IVPUSH ×2 (01:18→10:58)
[2020-07-12 06:38] LABS: Anion Gap 17 (12-20); Blood Urea Nitrogen 52 mg/dL (9-16); Calcium 10.2 mg/dL (8.4-10.2); Carbon Dioxide 28 mmol/L (22-29); Chloride 102 mmol/L (96-108); Creatinine Clr Calc Pharmacy 65.6; Estimated Glomerular Filt Rate 55; Glucose Random 161 mg/dL (60-115); Potassium 5.2 mmol/l (3.3-5.1); Sodium 142 mmol/L (135-145)
[2020-07-12] MEDS: Furosemide 20 MG TABLET G-TUBE (08:29)
[2020-07-12] MEDS: Digoxin 0.25 MG TABLET G-TUBE (08:29)
[2020-07-12] MEDS: Chlorhexidine Gluc Oral Rinse 15 ML MOUTHWASH BUCCAL ×3 (08:29→20:23)
[2020-07-12] MEDS: Metoprolol Tartrate 25 MG TABLET PO ×2 (08:29→20:23)
[2020-07-12] MEDS: Apixaban 5 MG TABLET G-TUBE ×2 (08:29→20:24)
[2020-07-12] MEDS: Nicotine 21 MG PATCH.TD24 TRANSDERMA (08:30)
[2020-07-12] MEDS: 0.9 % Sodium Chloride Flush 3 ML SYRINGE IVFLUSH ×3 (10:37→20:24)
--- NOTE | 2020-07-12 10:45 | P.PNIM_ITS ---
Subjective Subjective Date of Service: 07/12/20 Interval History: seen and examined sleeping this AM no overnight issues reported Physical Exam Vital Signs: Vital Signs: Last Vital Signs Temp 98 F 07/12/20 08:00 Pulse 98 07/12/20 08:29 Resp 20 07/12/20 07:20 BP 154/90 H 07/12/20 07:20 Pulse Ox 96 07/12/20 07:20 Body Mass Index 25.9 Const: Other: Gen - in no acute distress HEENT- sclera anicteric, moist mucus membranes Neck - uncuffed tracheostomy, trach collar Lungs - clear to auscultation bilaterally Heart - irregularly irregular with no murmurs Abd - soft, non-tender, non-distended; PEG tube running feeds - Powers draining clear urine Ext - no edema, wincing in pain with movement of RLE Skin - warm/well-perfused Neuro - sleeping this AM Objective Data Current Medications Generic Name Dose Route Start Last Admin Trade Name Freq PRN Reason Stop Dose Admin Acetaminophen 650 mg 07/08/20 06:36 07/09/20 08:39 Acetaminophen 325 Mg Tablet PO 650 mg Q8H PRN Administration Fever Apixaban 5 mg 06/18/20 14:30 07/12/20 08:29 Apixaban 5 Mg Tablet G-TUBE 5 mg BID JESSICA Administration Chlorhexidine Gluconate 15 ml 06/05/20 02:00 07/12/20 08:29 Chlorhexidine Gluc Oral Rinse 15 Ml Mouthwash BUCCAL 15 ml TID JESSICA Administration Digoxin 0.25 mg 06/21/20 09:00 07/12/20 08:29 Digoxin 0.25 Mg Tablet G-TUBE 0.25 mg DAILY JESSICA Administration Furosemide 20 mg 07/12/20 09:00 07/12/20 08:29 Furosemide 20 Mg Tablet G-TUBE 20 mg DAILY JESSICA Administration Protocol Lorazepam 1 mg 07/10/20 16:35 07/12/20 01:18 Lorazepam 2 Mg/Ml Vial IVPUSH 1 mg Q6H PRN Administration Anxiety Lorazepam 0.5 mg 07/12/20 13:00 Lorazepam 0.5 Mg Tablet G-TUBE Q8H JESSICA Metoprolol Tartrate 25 mg 06/21/20 21:00 07/12/20 08:29 Metoprolol Tartrate 25 Mg Tablet PO 25 mg BID JESSICA Administration Protocol Nicotine 21 mg 07/09/20 09:00 07/12/20 08:30 Nicotine 21 Mg Patch.Td24 TRANSDERMA 21 mg DAILY JESSICA Administration Omeprazole 40 mg 06/13/20 09:15 07/12/20 05:50 Omeprazole 20 Mg/10 Ml Susp.Recon PO 40 mg DAILY@0630 JESSICA Administration Sodium Chloride 3 ml 05/30/20 08:00 07/12/20 10:37 0.9 % Sodium Chloride Flush 3 Ml Syringe IVFLUSH 3 ml QSHIFT JESSICA Administration Labs CBC & Chem 7: 07/09/20 05:40 07/12/20 05:17 Microbiology Microbiology Results: Microbiology 07/08/20 07:39 Blood - Venous Blood Culture - Preliminary No growth after 48 hours. 07/08/20 07:39 Blood - Venous Blood Culture - Preliminary No growth after 48 hours. 06/16/20 18:53 Bronch Lll - Bronchial Fungal Identification - Preliminary No growth after 2 weeks. 06/26/20 19:31 Blood - Venous Blood Culture - Final No growth after 5 days. 06/26/20 19:37 Blood - Venous Blood Culture - Final No growth after 5 days. 06/25/20 00:48 Blood - Venous Blood Culture - Final No growth after 5 days. 06/25/20 00:45 Blood - Venous Blood Culture - Final No growth after 5 days. 06/27/20 08:40 Sputum - Expectorated Gram Stain - Final 06/27/20 08:40 Sputum - Expectorated Sputum Culture - Final 06/26/20 20:37 Urine Powers Port Urine Culture - Final No growth. 06/20/20 17:59 Blood - Venous Blood Culture - Final No growth after 5 days. 06/20/20 17:52 Blood - Venous Blood Culture - Final No growth after 5 days. 06/23/20 Unknown Sputum - Induced Gram Stain - Final 06/23/20 Unknown Sputum - Induced Sputum Culture - Final 06/23/20 12:52 Urine Powers Port Urine Culture - Final No growth. 06/17/20 06:12 Blood - Venous Blood Culture - Final No growth after 5 days. 06/17/20 06:08 Blood - Venous Blood Culture - Final No growth after 5 days. 06/16/20 18:53 Bronch Lll - Bronchial Gram Stain - Final 06/16/20 18:53 Bronch Lll - Bronchial Routine Culture - Final Escherichia coli 06/18/20 10:08 Sputum - Suctioned Gram Stain - Final 06/18/20 10:08 Sputum - Suctioned Sputum Culture - Final Escherichia coli 06/09/20 13:11 Stool Stool Culture - Final 06/05/20 03:40 Blood - Venous Blood Culture - Final No growth after 5 days. 06/05/20 03:36 Blood - Venous Blood Culture - Final No growth after 5 days. 06/04/20 11:45 Blood - Venous Blood Culture - Final No growth after 5 days. 06/04/20 11:45 Blood - Venous Blood Culture - Final No growth after 5 days. 06/05/20 03:31 Sputum - Suctioned Gram Stain - Final 06/05/20 03:31 Sputum - Suctioned Sputum Culture - Final 06/04/20 11:35 Urine Catheterized - Powers Catheter Urine Culture - Final No growth. Assessment and Plan (1) Alcohol withdrawal syndrome: Status: Acute (2) Depression: Status: Inactive (3) HTN (hypertension): Status: Acute (4) Sleep apnea: Status: Acute Assessment and Plan: 60yo M with PMHx EtOH abuse, MJ, HTN, obesity originally admitted for EtOH withdrawal 05/29/20 hospital course complicated by cardiopulmonary arrest 06/04/20, resuscitated + intubated ICU course complicated by MERLIN requiring temporary HD, drug fever, decompensated R-sided CHF, new-onset AF, and encephalopathy tracheostomy and PEG tube 06/16/20 weaned to trach collar 06/28/20 stepped down to IMC status 06/30/20 changed to uncuffed trach 07/02/20 awaiting LTACH placement 1. acute hypoxic respiratory failure now trach dependent, on trach collar fiO2 30% 2. HyperK, MERLIN both resolved low dose lasix, hold off aldactone that he was previously on due to hyperK (mild 5.2) 3. acute/chronic R-sided HF continue digoxin, metoprolol, spironolactone, lisinopril, and furosemide -- discontinued due to MERLIN; res tarted lasix 20mg 07/11/2020, monitor SCr -- if stable, may restart lisinopril 5. Fevers resolved, cultures negative 6. R leg pain resolved 7. AF continue metoprolol for rate control continue apixaban for anticoagulation 8. encephalopathy s/p cardiac arrest + prolonged ICU course. slowly improving. MRI 06/14/20 no acute disease. tube feeds: Promote 75 mL/hr + free water 120 mL q6h originally treated with phenobarbital for EtOH withdrawal + thiamine for suspected Wernicke encephalopathy, resolved more cooperative today Full Code DVT pptx, eliquis dispo:pending placement
[2020-07-12] MEDS: LORazepam 0.5 MG TABLET G-TUBE (20:24)
[2020-07-13] VITALS (9 sets, daily range): BP systolic 109–144; BP diastolic 60–77; PULSE 74–91; RESP 18–22; TEMP 36.6–36.8; O2SAT 90–98
[2020-07-13] MEDS: LORazepam 0.5 MG TABLET G-TUBE ×3 (06:20→20:19)
[2020-07-13 07:10] LABS: Anion Gap 18 (12-20); Blood Urea Nitrogen 52 mg/dL (9-16); Calcium 10.1 mg/dL (8.4-10.2); Carbon Dioxide 28 mmol/L (22-29); Chloride 100 mmol/L (96-108); Creatinine Clr Calc Pharmacy 66.6; Estimated Glomerular Filt Rate 56; Glucose Random 158 mg/dL (60-115); Potassium 4.8 mmol/l (3.3-5.1); Sodium 141 mmol/L (135-145)
[2020-07-13] MEDS: 0.9 % Sodium Chloride Flush 3 ML SYRINGE IVFLUSH ×3 (09:57→21:24)
[2020-07-13] MEDS: Apixaban 5 MG TABLET G-TUBE ×2 (09:57→20:19)
[2020-07-13] MEDS: Chlorhexidine Gluc Oral Rinse 15 ML MOUTHWASH BUCCAL ×3 (09:57→20:19)
[2020-07-13] MEDS: Furosemide 20 MG TABLET G-TUBE (09:58)
[2020-07-13] MEDS: Metoprolol Tartrate 25 MG TABLET PO ×2 (09:58→20:19)
[2020-07-13] MEDS: Digoxin 0.25 MG TABLET G-TUBE (09:59)
[2020-07-13] MEDS: Nicotine 21 MG PATCH.TD24 TRANSDERMA (10:00)
--- NOTE | 2020-07-13 10:42 | P.PNIM_ITS ---
Subjective Subjective Date of Service: 07/13/20 Interval History: seen and examined remains unchanged no issues repoted by staffing executive in regards to behavioral issues Physical Exam Vital Signs: Vital Signs: Last Vital Signs Temp 98.0 F 07/13/20 07:38 Pulse 81 07/13/20 09:59 Resp 18 07/13/20 07:38 BP 144/77 H 07/13/20 09:58 Pulse Ox 95 07/13/20 07:38 Body Mass Index 25.9 Const: Other: Gen - in no acute distress HEENT- sclera anicteric, moist mucus membranes Neck - uncuffed tracheostomy, trach collar Lungs - clear to auscultation bilaterally Heart - irregularly irregular with no murmurs Abd - soft, non-tender, non-distended; PEG tube running feeds - Powers draining clear urine Ext - no edema, wincing in pain with movement of RLE Skin - warm/well-perfused Neuro - sleeping this AM Objective Data Current Medications Generic Name Dose Route Start Last Admin Trade Name Freq PRN Reason Stop Dose Admin Acetaminophen 650 mg 07/08/20 06:36 07/09/20 08:39 Acetaminophen 325 Mg Tablet PO 650 mg Q8H PRN Administration Fever Apixaban 5 mg 06/18/20 14:30 07/13/20 09:57 Apixaban 5 Mg Tablet G-TUBE 5 mg BID JESSICA Administration Chlorhexidine Gluconate 15 ml 06/05/20 02:00 07/13/20 09:57 Chlorhexidine Gluc Oral Rinse 15 Ml Mouthwash BUCCAL 15 ml TID JESSICA Administration Digoxin 0.25 mg 06/21/20 09:00 07/13/20 09:59 Digoxin 0.25 Mg Tablet G-TUBE 0.25 mg DAILY JESSICA Administration Furosemide 20 mg 07/12/20 09:00 07/13/20 09:58 Furosemide 20 Mg Tablet G-TUBE 20 mg DAILY JESSICA Administration Protocol Lorazepam 1 mg 07/10/20 16:35 07/12/20 10:58 Lorazepam 2 Mg/Ml Vial IVPUSH 1 mg Q6H PRN Administration Anxiety Lorazepam 0.5 mg 07/12/20 13:00 07/13/20 06:20 Lorazepam 0.5 Mg Tablet G-TUBE 0.5 mg Q8H JESSICA Administration Metoprolol Tartrate 25 mg 06/21/20 21:00 07/13/20 09:58 Metoprolol Tartrate 25 Mg Tablet PO 25 mg BID [facility] Administration Protocol Nicotine 21 mg 07/09/20 09:00 07/13/20 10:00 Nicotine 21 Mg Patch.Td24 TRANSDERMA 21 mg DAILY JESSICA Administration Omeprazole 40 mg 06/13/20 09:15 07/13/20 06:20 Omeprazole 20 Mg/10 Ml Susp.Recon PO 40 mg DAILY@0630 [facility] Administration Sodium Chloride 3 ml 05/30/20 08:00 07/13/20 09:57 0.9 % Sodium Chloride Flush 3 Ml Syringe IVFLUSH 3 ml QSHIFT [facility] Administration Labs CBC & Chem 7: 07/09/20 05:40 07/13/20 06:00 Microbiology Microbiology Results: Microbiology 07/08/20 07:39 Blood - Venous Blood Culture - Final No growth after 5 days. 07/08/20 07:39 Blood - Venous Blood Culture - Final No growth after 5 days. 06/16/20 18:53 Bronch Lll - Bronchial Fungal Identification - Preliminary No growth after 2 weeks. 06/26/20 19:31 Blood - Venous Blood Culture - Final No growth after 5 days. 06/26/20 19:37 Blood - Venous Blood Culture - Final No growth after 5 days. 06/25/20 00:48 Blood - Venous Blood Culture - Final No growth after 5 days. 06/25/20 00:45 Blood - Venous Blood Culture - Final No growth after 5 days. 06/27/20 08:40 Sputum - Expectorated Gram Stain - Final 06/27/20 08:40 Sputum - Expectorated Sputum Culture - Final 06/26/20 20:37 Urine Powers Port Urine Culture - Final No growth. 06/20/20 17:59 Blood - Venous Blood Culture - Final No growth after 5 days. 06/20/20 17:52 Blood - Venous Blood Culture - Final No growth after 5 days. 06/23/20 Unknown Sputum - Induced Gram Stain - Final 06/23/20 Unknown Sputum - Induced Sputum Culture - Final 06/23/20 12:52 Urine Powers Port Urine Culture - Final No growth. 06/17/20 06:12 Blood - Venous Blood Culture - Final No growth after 5 days. 06/17/20 06:08 Blood - Venous Blood Culture - Final No growth after 5 days. 06/16/20 18:53 Bronch Lll - Bronchial Gram Stain - Final 06/16/20 18:53 Bronch Lll - Bronchial Routine Culture - Final Escherichia coli 06/18/20 10:08 Sputum - Suctioned Gram Stain - Final 06/18/20 10:08 Sputum - Suctioned Sputum Culture - Final Escherichia coli 06/09/20 13:11 Stool Stool Culture - Final 06/05/20 03:40 Blood - Venous Blood Culture - Final No growth after 5 days. 06/05/20 03:36 Blood - Venous Blood Culture - Final No growth after 5 days. 06/04/20 11:45 Blood - Venous Blood Culture - Final No growth after 5 days. 06/04/20 11:45 Blood - Venous Blood Culture - Final No growth after 5 days. 06/05/20 03:31 Sputum - Suctioned Gram Stain - Final 06/05/20 03:31 Sputum - Suctioned Sputum Culture - Final 06/04/20 11:35 Urine Catheterized - Powers Catheter Urine Culture - Final No growth. Assessment and Plan (1) Alcohol withdrawal syndrome: Status: Acute Assessment and Plan: 60yo M with PMHx EtOH abuse, MJ, HTN, obesity originally admitted for EtOH withdrawal 05/29/20 hospital course complicated by cardiopulmonary arrest 06/04/20, resuscitated + intubated ICU course complicated by MERLIN requiring temporary HD, drug fever, decompensated R-sided CHF, new-onset AF, and encephalopathy tracheostomy and PEG tube 06/16/20 weaned to trach collar 06/28/20 stepped down to IMC status 06/30/20 changed to uncuffed trach 07/02/20 awaiting LTACH placement 1. acute hypoxic respiratory failure now trach dependent, on trach collar fiO2 30% 2. HyperK, MERLIN (required dialysis during this hospitalization) both resolved low dose lasix; hold off aldactone / AIDAN-I due to recent MERLIN / HyperK 3. acute/chronic R-sided HF continue digoxin, metoprolol, spironolactone, lisinopril, and furosemide -- discontinued due to MERLIN; restarted lasix 20mg 07/11/2020, monitor SCr -- if stable, may restart lisinopril 5. Fevers resolved, cultures negative 6. R leg pain resolved 7. AF continue metoprolol for rate control continue apixaban for anticoagulation 8. encephalopathy s/p cardiac arrest + prolonged ICU course. slowly improving. MRI 06/14/20 no acute disease. tube feeds: Promote 75 mL/hr + free water 120 mL q6h originally treated with phenobarbital for EtOH withdrawal + thiamine for suspected Wernicke encephalopathy, resolved more cooperative today Full Code DVT pptx, eliquis dispo:pending placement (2) Depression: Status: Inactive (3) HTN (hypertension): Status: Acute (4) Sleep apnea: Status: Acute
[2020-07-14] VITALS (10 sets, daily range): BP systolic 119–143; BP diastolic 61–78; PULSE 81–108; RESP 17–20; TEMP 36.4–36.8; O2SAT 94–99
[2020-07-14] MEDS: LORazepam 0.5 MG TABLET G-TUBE ×2 (06:03→20:34)
--- NOTE | 2020-07-14 06:39 | MHC.PIE ---
P: After 4am, patient had pulled at trach collar. At 6am, when attempted to do trach care, trach noted to be out of stoma. end of trach was hiding under dressing. RR stable, 18-20, 02sat 95 with humidified oxygen - trach collar. I: Sitter and telesitter at bedside, but did not see trach come out at the time. Called RT to bedside and called ICU PA & Dr Pfeiffer who came in. Dr Feliciano came up to see patient. Dr Feliciano talked to ICU MD - Dr Feliciano plans to call Dr Lee for guidance. Trach cleaned at bedside, vitals taken. E: Patient stable, VSS.
[2020-07-14 07:11] LABS: Anion Gap 18 (12-20); Blood Urea Nitrogen 52 mg/dL (9-16); Calcium 10.5 mg/dL (8.4-10.2); Carbon Dioxide 28 mmol/L (22-29); Chloride 99 mmol/L (96-108); Creatinine Clr Calc Pharmacy 68.7; Estimated Glomerular Filt Rate 58; Glucose Random 164 mg/dL (60-115); Potassium 4.9 mmol/l (3.3-5.1); Sodium 140 mmol/L (135-145)
[2020-07-14] MEDS: Metoprolol Tartrate 25 MG TABLET PO ×2 (09:18→20:34)
[2020-07-14] MEDS: Nicotine 21 MG PATCH.TD24 TRANSDERMA (09:19)
[2020-07-14] MEDS: 0.9 % Sodium Chloride Flush 3 ML SYRINGE IVFLUSH ×2 (09:19→16:06)
[2020-07-14] MEDS: Apixaban 5 MG TABLET G-TUBE ×2 (09:19→20:34)
[2020-07-14] MEDS: Furosemide 20 MG TABLET G-TUBE (09:19)
[2020-07-14] MEDS: Digoxin 0.25 MG TABLET G-TUBE (09:20)
[2020-07-14] MEDS: Chlorhexidine Gluc Oral Rinse 15 ML MOUTHWASH BUCCAL ×3 (09:20→20:34)
--- NOTE | 2020-07-14 10:02 | P.PNPL_ITS ---
Subjective Subjective Date of Service: 07/14/20 Principal diagnosis: alcohol withdrawal, atrial fibrillation Interval history: The patient was seen and examined this morning. It appears that his tracheostomy months of slowly dislodged. This morning thoracic surgery is consulted and Pulmonary was requested in order to reassess the stoma after the tracheostomy was removed by the patient. The stoma is basically close this point. The patient does have a strong cough and is breathing comfortably without any evidence of stridor. At this point even a smaller trach would not fit because the stoma is indeed close. He is maintaining well he is following commands and he is asking for water because is very thirsty. Objective Data Labs CBC & Chem 7: 07/09/20 05:40 07/14/20 05:15 Labs: Laboratory Results - last 24 hr 07/14/20 05:15 Sodium 140 Potassium 4.9 Chloride 99 Carbon Dioxide 28 Anion Gap 18 BUN 52 H Creatinine 1.27 Estim Creat Clear Calc 68.7 Estimated GFR 58 Random Glucose 164 H Calcium 10.5 H Microbiology Microbiology Results: Microbiology 07/08/20 07:39 Blood - Venous Blood Culture - Final No growth after 5 days. 07/08/20 07:39 Blood - Venous Blood Culture - Final No growth after 5 days. 06/16/20 18:53 Bronch Lll - Bronchial Fungal Identification - Preliminary No growth after 2 weeks. 06/26/20 19:31 Blood - Venous Blood Culture - Final No growth after 5 days. 06/26/20 19:37 Blood - Venous Blood Culture - Final No growth after 5 days. 06/25/20 00:48 Blood - Venous Blood Culture - Final No growth after 5 days. 06/25/20 00:45 Blood - Venous Blood Culture - Final No growth after 5 days. 06/27/20 08:40 Sputum - Expectorated Gram Stain - Final 06/27/20 08:40 Sputum - Expectorated Sputum Culture - Final 06/26/20 20:37 Urine Powers Port Urine Culture - Final No growth. 06/20/20 17:59 Blood - Venous Blood Culture - Final No growth after 5 days. 06/20/20 17:52 Blood - Venous Blood Culture - Final No growth after 5 days. 06/23/20 Unknown Sputum - Induced Gram Stain - Final 06/23/20 Unknown Sputum - Induced Sputum Culture - Final 06/23/20 12:52 Urine Powers Port Urine Culture - Final No growth. 06/17/20 06:12 Blood - Venous Blood Culture - Final No growth after 5 days. 06/17/20 06:08 Blood - Venous Blood Culture - Final No growth after 5 days. 06/16/20 18:53 Bronch Lll - Bronchial Gram Stain - Final 06/16/20 18:53 Bronch Lll - Bronchial Routine Culture - Final Escherichia coli 06/18/20 10:08 Sputum - Suctioned Gram Stain - Final 06/18/20 10:08 Sputum - Suctioned Sputum Culture - Final Escherichia coli 06/09/20 13:11 Stool Stool Culture - Final 06/05/20 03:40 Blood - Venous Blood Culture - Final No growth after 5 days. 06/05/20 03:36 Blood - Venous Blood Culture - Final No growth after 5 days. 06/04/20 11:45 Blood - Venous Blood Culture - Final No growth after 5 days. 06/04/20 11:45 Blood - Venous Blood Culture - Final No growth after 5 days. 06/05/20 03:31 Sputum - Suctioned Gram Stain - Final 06/05/20 03:31 Sputum - Suctioned Sputum Culture - Final 06/04/20 11:35 Urine Catheterized - Powers Catheter Urine Culture - Final No growth. Review of Systems Constitutional: Denies frequent falls, Denies headache(s) and Reports weakness Denies headache(s) Reports confusion, Denies frequent falls, Denies headache(s) and Reports weakness Psychiatric: Reports confusion Endocrine: Reports polydipsia Physical Exam Vital Signs: Vital Signs: Last Vital Signs Temp 98.3 F 07/14/20 07:05 Pulse 92 07/14/20 09:20 Resp 17 07/14/20 07:05 BP 119/70 07/14/20 09:18 Pulse Ox 98 07/14/20 07:05 Body Mass Index 25.9 Const: General: confusion Orientation/consciousness: confusion HENMT: General nose exam: Abnormal external nose present and Nasal discharge present Neck: Neck: Yes normal visual inspection, Yes full ROM and Yes no lymphadenopathy Lymphatic: other (Stoma site nearly closed) Chest: Chest palpation & inspection: normal inspection of the chest Resp: Auscultation: diminished lung sounds Cardio: Rate: regular rate Rhythm: regular rhythm Heart sounds: S1 normal heart sound present and S2 normal heart sound present GI: Palpation (GI): Soft to palpation and nontender Auscultation: normal bowel sounds Neuro: General: confusion Assessment and Plan Assessment and plan (1) Acute and chronic respiratory failure with hypoxia: Problem details: Appears to be doing better this time. Currently on trach collar although not much air movement is occurring to the stoma therefore he is basically on room air. Status: Acute Assessment and Plan: Continue assessing his oxygen requirements Will request a venous gas (2) Sleep apnea: Problem details: The tracheostomy was helping with potential side effects of untreated sleep ap jagruti Status: Acute Assessment and Plan: May benefit from a sleep study (3) Trachea displaced: Problem details: The patient self decannulated. At this point the stoma is close therefore we cannot be placed even smaller size tracheostomy and is placed If he does need a replacement tracheostomy would have to have a surgical procedure. Status: Acute Assessment and Plan: Check venous gas Set up out of bed to a recliner Swallow eval Time Spent With Patient Time: Total time spent is greater than 50% in coordination of care (as documented) at patient's floor/unit and/or counseling patient: Time with patient: 15 - 24 minutes
[2020-07-14 10:07] LABS: Pt Ventilation O2% ROOM AIR
--- NOTE | 2020-07-14 10:07 | XR_ITS ---
EXAMINATION: XR CHEST CLINICAL INFORMATION: The cannulation COMPARISON: Previous chest x-ray most recent 07/08/2020 TECHNIQUE: Frontal view of the chest was obtained. FINDINGS: Tracheostomy is no longer seen. The cardiac silhouette is enlarged but stable. Hilar and mediastinal contours are unremarkable. The lungs are clear. There is no pleural effusion or pneumothorax. There may be an old right lateral second rib fracture. Bony structures are otherwise unremarkable. XR/XR chest 1V IMPRESSION: Tracheostomy tube no longer seen. Stable enlargement of the cardiac silhouette. No evidence for acute disease in the chest.
[2020-07-14 10:14] LABS: ABG PCO2 47 mmHg (32-45); Base Excess ABG 8.6; HCO3 ABG 33 mmol/L (22-26); PO2 ABG 79 mmHg (83-108); pH ABG 7.46 (7.35-7.45)
[2020-07-14 10:35] LABS: pH VBG 7.46 (7.32-7.43)
[2020-07-14 10:36] LABS: Base Excess VBG 5.9 mmol/L; HCO3 VBG 30 mmol/L; PCO2 VBG 42 mmHg; PO2 VBG 95 mmHg
--- NOTE | 2020-07-14 11:35 | MHC.CM.PN ---
Patient has pulled out trach and not replaced. Patient is now on room air and satting well. Patient is more alert and responsive, although continue to need 1:1 sitter. Discharge plan is STR when sitter is d/c'd, updated referrals. CM will continue to follow patient for discharge needs.
--- NOTE | 2020-07-14 14:00 | MHC.CLN ---
F/U AG SERVICE MANAGER REC PUREED DIET PT WILL CONTINUE WITH TF PROMOTE AT MAX GOAL 75CC/HR WITH 120CC FREE WATER Q 6HRS PROVIDES 1800KCALS (23KCALS/KG BASED ON IBW), 112.5G PROTEIN (1.4G/KG), 1990CC TOTAL WATER FROM FORMULA AND FLUSHES (25CC/KG BASED ON IBW) MONITOR TOLERANCE, RESIDUALS AND LYTES AND PO INTAKE FOLLOWING
--- NOTE | 2020-07-14 14:40 | P.PNIM_ITS ---
Subjective Subjective Date of Service: 07/14/20 Interval History: no complaints Cardiovascular Cardiovascular: Reports no additional cardiovascular complaints Respiratory Respiratory: Reports no additional respiratory complaints Physical Exam Vital Signs: Vital Signs: Last Vital Signs Temp 98.2 F 07/14/20 11:14 Pulse 81 07/14/20 11:14 Resp 17 07/14/20 11:14 BP 121/76 07/14/20 11:14 Pulse Ox 99 07/14/20 11:14 Body Mass Index 25.9 General: AO X 3, no acute distress Resp: CTA bilateral CVS: S1,S2,RRR GI: soft, non tender, non distended Neuro: motor grossly intact Psych: appropriate affect Objective Data Current Medications Generic Name Dose Route Start Last Admin Trade Name Freq PRN Reason Stop Dose Admin Acetaminophen 650 mg 07/08/20 06:36 07/09/20 08:39 Acetaminophen 325 Mg Tablet PO 650 mg Q8H PRN Administration Fever Apixaban 5 mg 06/18/20 14:30 07/14/20 09:19 Apixaban 5 Mg Tablet G-TUBE 5 mg BID JESSICA Administration Chlorhexidine Gluconate 15 ml 06/05/20 02:00 07/14/20 09:20 Chlorhexidine Gluc Oral Rinse 15 Ml Mouthwash BUCCAL 15 ml TID JESSICA Administration Digoxin 0.25 mg 06/21/20 09:00 07/14/20 09:20 Digoxin 0.25 Mg Tablet G-TUBE 0.25 mg DAILY JESSICA Administration Furosemide 20 mg 07/12/20 09:00 07/14/20 09:19 Furosemide 20 Mg Tablet G-TUBE 20 mg DAILY JESSICA Administration Protocol Lorazepam 1 mg 07/10/20 16:35 07/12/20 10:58 Lorazepam 2 Mg/Ml Vial IVPUSH 1 mg Q6H PRN Administration Anxiety Lorazepam 0.5 mg 07/12/20 13:00 07/14/20 12:11 Lorazepam 0.5 Mg Tablet G-TUBE Not Given Q8H JESSICA Metoprolol Tartrate 25 mg 06/21/20 21:00 07/14/20 09:18 Metoprolol Tartrate 25 Mg Tablet PO 25 mg BID JESSICA Administration Protocol Nicotine 21 mg 07/09/20 09:00 07/14/20 09:19 Nicotine 21 Mg Patch.Td24 TRANSDERMA 21 mg DAILY JESSICA Administration Omeprazole 40 mg 06/13/20 09:15 07/14/20 06:03 Omeprazole 20 Mg/10 Ml Susp.Recon PO 40 mg DAILY@0630 JESSICA Administration Sodium Chloride 3 ml 05/30/20 08:00 07/14/20 09:19 0.9 % Sodium Chloride Flush 3 Ml Syringe IVFLUSH 3 ml QSHIFT JESSICA Administration Labs CBC & Chem 7: 07/09/20 05:40 07/14/20 05:15 Microbiology Microbiology Results: Microbiology 06/16/20 18:53 Bronch Lll - Bronchial Fungal Identification - Preliminary No growth after 3 weeks. 07/08/20 07:39 Blood - Venous Blood Culture - Final No growth after 5 days. 07/08/20 07:39 Blood - Venous Blood Culture - Final No growth after 5 days. 06/26/20 19:31 Blood - Venous Blood Culture - Final No growth after 5 days. 06/26/20 19:37 Blood - Venous Blood Culture - Final No growth after 5 days. 06/25/20 00:48 Blood - Venous Blood Culture - Final No growth after 5 days. 06/25/20 00:45 Blood - Venous Blood Culture - Final No growth after 5 days. 06/27/20 08:40 Sputum - Expectorated Gram Stain - Final 06/27/20 08:40 Sputum - Expectorated Sputum Culture - Final 06/26/20 20:37 Urine Powers Port Urine Culture - Final No growth. 06/20/20 17:59 Blood - Venous Blood Culture - Final No growth after 5 days. 06/20/20 17:52 Blood - Venous Blood Culture - Final No growth after 5 days. 06/23/20 Unknown Sputum - Induced Gram Stain - Final 06/23/20 Unknown Sputum - Induced Sputum Culture - Final 06/23/20 12:52 Urine Powers Port Urine Culture - Final No growth. 06/17/20 06:12 Blood - Venous Blood Culture - Final No growth after 5 days. 06/17/20 06:08 Blood - Venous Blood Culture - Final No growth after 5 days. 06/16/20 18:53 Bronch Lll - Bronchial Gram Stain - Final 06/16/20 18:53 Bronch Lll - Bronchial Routine Culture - Final Escherichia coli 06/18/20 10:08 Sputum - Suctioned Gram Stain - Final 06/18/20 10:08 Sputum - Suctioned Sputum Culture - Final Escherichia coli 06/09/20 13:11 Stool Stool Culture - Final 06/05/20 03:40 Blood - Venous Blood Culture - Final No growth after 5 days. 06/05/20 03:36 Blood - Venous Blood Culture - Final No growth after 5 days. 06/04/20 11:45 Blood - Venous Blood Culture - Final No growth after 5 days. 06/04/20 11:45 Blood - Venous Blood Culture - Final No growth after 5 days. 06/05/20 03:31 Sputum - Suctioned Gram Stain - Final 06/05/20 03:31 Sputum - Suctioned Sputum Culture - Final 06/04/20 11:35 Urine Catheterized - Powers Catheter Urine Culture - Final No growth. Assessment and Plan (1) Alcohol withdrawal syndrome: Status: Acute (2) Depression: Status: Inactive (3) HTN (hypertension): Status: Acute (4) Sleep apnea: Problem details: The tracheostomy was helping with potential side effects of untreated sleep apnea Status: Acute Assessment and Plan: 60yo M with PMHx EtOH abuse, MJ, HTN, obesity originally admitted for EtOH withdrawal 05/29/20 hospital course complicated by cardiopulmonary arrest 06/04/20, resuscitated + intubated ICU course complicated by MERLIN requiring temporary HD, drug fever, decompensated R-sided CHF, new-onset AF, and encephalopathy tracheostomy and PEG tube 06/16/20 weaned to trach collar 06/28/20 stepped down to IMC status 06/30/20 changed to uncuffed trach 07/02/20 trach fell out overnight, ABG and sats have been fine, advanced to puree diet with thins acute hypoxic respiratory failure resolved HyperK, MERLIN (required dialysis during this hospitalization) both resolved low dose lasix; hold off aldactone / AIDAN-I due to recent MERLIN / HyperK acute/chronic R-sided HF continue digoxin, metoprolol, spironolactone, lisinopril, and furosemide -- discontinued due to MERLIN; restar letitia lasix 20mg 07/11/2020, monitor SCr -- if stable, may restart lisinopril Fevers resolved, cultures negative R leg pain resolved AF continue metoprolol for rate control continue apixaban for anticoagulation . encephalopathy s/p cardiac arrest + prolonged ICU course. slowly improving. MRI 06/14/20 no acute disease. tube feeds: Promote 75 mL/hr + free water 120 mL q6h originally treated with phenobarbital for EtOH withdrawal + thiamine for suspected Wernicke encephalopathy, resolved more cooperative today dispo:pending placement
[2020-07-15] VITALS (8 sets, daily range): BP systolic 117–164; BP diastolic 67–80; PULSE 79–93; RESP 18–20; TEMP 36.2–37.4; O2SAT 92–95
[2020-07-15] MEDS: 0.9 % Sodium Chloride Flush 3 ML SYRINGE IVFLUSH ×4 (00:37→21:30)
[2020-07-15] MEDS: LORazepam 2 MG/ML VIAL 1 MG IVPUSH (01:02)
[2020-07-15 06:45] LABS: Anion Gap 19 (12-20); Blood Urea Nitrogen 49 mg/dL (9-16); Calcium 10.7 mg/dL (8.4-10.2); Carbon Dioxide 28 mmol/L (22-29); Chloride 97 mmol/L (96-108); Creatinine Clr Calc Pharmacy 69.2; Estimated Glomerular Filt Rate 59; Glucose Random 176 mg/dL (60-115); Potassium 4.9 mmol/l (3.3-5.1); Sodium 139 mmol/L (135-145)
[2020-07-15] MEDS: Nicotine 21 MG PATCH.TD24 TRANSDERMA (09:10)
[2020-07-15] MEDS: Apixaban 5 MG TABLET G-TUBE ×2 (09:11→21:29)
[2020-07-15] MEDS: Chlorhexidine Gluc Oral Rinse 15 ML MOUTHWASH BUCCAL (09:11)
[2020-07-15] MEDS: Digoxin 0.25 MG TABLET G-TUBE (09:11)
[2020-07-15] MEDS: Metoprolol Tartrate 25 MG TABLET PO ×2 (09:11→21:29)
[2020-07-15] MEDS: Furosemide 20 MG TABLET G-TUBE (09:11)
--- NOTE | 2020-07-15 10:37 | MHC.SLORD ---
Pt refused PO trials and oral care this morning, becoming very agitated. Per RN report, pt is tolerating pureed solids and thin liquids with no concerns at this time. APPRENTICE CARPENTER will continue to follow during hospitalization M-F as appropriate. Name: Esteban Galindo Date of : 1960 Age: 60 Date of Registration: 05/30/20 Speech Language Pathology Order Status:
--- NOTE | 2020-07-15 11:09 | HO.PM.IMPN ---
Subjective Subjective Date of Service: 07/15/20 Interval History: no complaints Cardiovascular Cardiovascular: Reports no additional cardiovascular complaints Gastrointestinal Gastrointestinal: Reports no additional gastrointestinal complaints Physical Exam Vital Signs: Vital Signs: Last Vital Signs Temp 98.8 F 07/15/20 11:04 Pulse 79 07/15/20 11:04 Resp 20 07/15/20 11:04 BP 164/74 H 07/15/20 11:04 Pulse Ox 94 07/15/20 11:04 Body Mass Index 25.9 General: Alert, disoriented, no acute distress Resp: CTA bilateral CVS: S1,S2,RRR GI: soft, non tender, non distended Neuro: motor grossly intact Psych: appropriate affect Objective Data Current Medications Generic Name Dose Route Start Last Admin Trade Name Freq PRN Reason Stop Dose Admin Acetaminophen 650 mg 07/08/20 06:36 07/09/20 08:39 Acetaminophen 325 Mg Tablet PO 650 mg Q8H PRN Administration Fever Apixaban 5 mg 06/18/20 14:30 07/15/20 09:11 Apixaban 5 Mg Tablet G-TUBE 5 mg BID JESSICA Administration Chlorhexidine Gluconate 15 ml 06/05/20 02:00 07/15/20 09:11 Chlorhexidine Gluc Oral Rinse 15 Ml Mouthwash BUCCAL 15 ml TID JESSICA Administration Digoxin 0.25 mg 06/21/20 09:00 07/15/20 09:11 Digoxin 0.25 Mg Tablet G-TUBE 0.25 mg DAILY JESSICA Administration Furosemide 20 mg 07/12/20 09:00 07/15/20 09:11 Furosemide 20 Mg Tablet G-TUBE 20 mg DAILY JESSICA Administration Protocol Lorazepam 1 mg 07/10/20 16:35 07/15/20 01:02 Lorazepam 2 Mg/Ml Vial IVPUSH 1 mg Q6H PRN Administration Anxiety Lorazepam 0.5 mg 07/12/20 13:00 07/15/20 03:59 Lorazepam 0.5 Mg Tablet G-TUBE Not Given Q8H JESSICA Metoprolol Tartrate 25 mg 06/21/20 21:00 07/15/20 09:11 Metoprolol Tartrate 25 Mg Tablet PO 25 mg BID JESSICA Administration Protocol Nicotine 21 mg 07/09/20 09:00 07/15/20 09:10 Nicotine 21 Mg Patch.Td24 TRANSDERMA 21 mg DAILY JESSICA Administration Omeprazole 40 mg 06/13/20 09:15 07/15/20 06:30 Omeprazole 20 Mg/10 Ml Susp.Recon PO 40 mg DAILY@0630 [facility] Administration Sodium Chloride 3 ml 05/30/20 08:00 07/15/20 09:11 0.9 % Sodium Chloride Flush 3 Ml Syringe IVFLUSH 3 ml QSHIFT JESSICA Administration Labs CBC & Chem 7: 07/09/20 05:40 07/15/20 05:05 Microbiology Microbiology Results: Microbiology 06/16/20 18:53 Bronch Lll - Bronchial Fungal Identification - Preliminary No growth after 3 weeks. 07/08/20 07:39 Blood - Venous Blood Culture - Final No growth after 5 days. 07/08/20 07:39 Blood - Venous Blood Culture - Final No growth after 5 days. 06/26/20 19:31 Blood - Venous Blood Culture - Final No growth after 5 days. 06/26/20 19:37 Blood - Venous Blood Culture - Final No growth after 5 days. 06/25/20 00:48 Blood - Venous Blood Culture - Final No growth after 5 days. 06/25/20 00:45 Blood - Venous Blood Culture - Final No growth after 5 days. 06/27/20 08:40 Sputum - Expectorated Gram Stain - Final 06/27/20 08:40 Sputum - Expectorated Sputum Culture - Final 06/26/20 20:37 Urine [place] Urine Culture - Final No growth. 06/20/20 17:59 Blood - Venous Blood Culture - Final No growth after 5 days. 06/20/20 17:52 Blood - Venous Blood Culture - Final No growth after 5 days. 06/23/20 Unknown Sputum - Induced Gram Stain - Final 06/23/20 Unknown Sputum - Induced Sputum Culture - Final 06/23/20 12:52 Urine [place] Urine Culture - Final No growth. 06/17/20 06:12 Blood - Venous Blood Culture - Final No growth after 5 days. 06/17/20 06:08 Blood - Venous Blood Culture - Final No growth after 5 days. 06/16/20 18:53 Bronch Lll - Bronchial Gram Stain - Final 06/16/20 18:53 Bronch Lll - Bronchial Routine Culture - Final Escherichia coli 06/18/20 10:08 Sputum - Suctioned Gram Stain - Final 06/18/20 10:08 Sputum - Suctioned Sputum Culture - Final Escherichia coli 06/09/20 13:11 Stool Stool Culture - Final 06/05/20 03:40 Blood - Venous Blood Culture - Final No growth after 5 days. 06/05/20 03:36 Blood - Venous Blood Culture - Final No growth after 5 days. 06/04/20 11:45 Blood - Venous Blood Culture - Final No growth after 5 days. 06/04/20 11:45 Blood - Venous Blood Culture - Final No growth after 5 days. 06/05/20 03:31 Sputum - Suctioned Gram Stain - Final 06/05/20 03:31 Sputum - Suctioned Sputum Culture - Final 06/04/20 11:35 Urine Catheterized - Powers Catheter Urine Culture - Final No growth. Assessment and Plan (1) Alcohol withdrawal syndrome: Status: Acute (2) Depression: Status: Inactive (3) HTN (hypertension): Status: Acute (4) Sleep apnea: Problem details: The tracheostomy was helping with potential side effects of untreated sleep apnea Status: Acute Assessment and Plan: 60yo M with PMHx EtOH abuse, MJ, HTN, obesity originally admitted for EtOH withdrawal 05/29/20 hospital course complicated by cardiopulmonary arrest 06/04/20, resuscitated + intubated ICU course complicated by [facility] requiring temporary HD, drug fever, decompensated R-sided CHF, new-onset AF, and encephalopathy tracheostomy and PEG tube 06/16/20 weaned to trach collar 06/28/20 stepped down to IMC status 06/30/20 changed to uncuffed trach 07/02/20 trach fell out overnight 07/13/20, ABG and sats have been fine, advanced to puree diet with thins now on puree diet, wean gtube feeds acute hypoxic respiratory failure resolved HyperK, MERLIN (required dialysis during this hospitalization) both resolved low dose lasix; hold off aldactone / AIDAN-I due to recent MERLIN / HyperK acute/chronic R-sided HF continue digoxin, metoprolol, spironolactone, lisinopril, and furosemide -- discontinued due to MERLIN; restarted lasix 20mg 07/11/2020, monitor SCr -- if stable, may restart lisinopril Fevers resolved, cultures negative R leg pain resolved AF continue metoprolol for rate control continue apixaban for anticoagulation . encephalopathy s/p cardiac arrest + prolonged ICU course. slowly improving. MRI 06/14/20 no acute disease. tube feeds: Promote 75 mL/hr + free water 120 mL q6h originally treated with phenobarbital for EtOH withdrawal + thiamine for suspected Wernicke encephalopathy, resolved dispo:pending placement
[2020-07-15] MEDS: LORazepam 0.5 MG TABLET G-TUBE ×2 (13:57→21:29)
[2020-07-16 03:31] VITALS: BP 149/70; PULSE 84; RESP 19; TEMP 36.4; O2SAT 92
[2020-07-16] MEDS: LORazepam 0.5 MG TABLET G-TUBE ×3 (04:45→20:26)
[2020-07-16 07:06] VITALS: BP 170/97; PULSE 90; RESP 22; TEMP 36.6; O2SAT 92
[2020-07-16 07:20] LABS: Anion Gap 14 (12-20); Blood Urea Nitrogen 47 mg/dL (9-16); Calcium 10.5 mg/dL (8.4-10.2); Carbon Dioxide 33 mmol/L (22-29); Chloride 94 mmol/L (96-108); Creatinine Clr Calc Pharmacy 73.9; Estimated Glomerular Filt Rate > 60; Glucose Random 143 mg/dL (60-115); Potassium 5.1 mmol/l (3.3-5.1); Sodium 136 mmol/L (135-145)
[2020-07-16] MEDS: Digoxin 0.25 MG TABLET G-TUBE (08:55)
[2020-07-16] MEDS: Apixaban 5 MG TABLET G-TUBE ×2 (08:55→20:26)
[2020-07-16] MEDS: Furosemide 20 MG TABLET G-TUBE (08:55)
[2020-07-16] MEDS: Nicotine 21 MG PATCH.TD24 TRANSDERMA (08:55)
[2020-07-16] MEDS: Metoprolol Tartrate 25 MG TABLET PO ×2 (08:55→20:26)
[2020-07-16] MEDS: Chlorhexidine Gluc Oral Rinse 15 ML MOUTHWASH BUCCAL ×3 (08:55→20:26)
[2020-07-16] MEDS: 0.9 % Sodium Chloride Flush 3 ML SYRINGE IVFLUSH ×3 (08:56→20:26)
--- NOTE | 2020-07-16 10:20 | MHC.CLN ---
F/U PO INTAKE 25% PT WILL CONTINUE WITH TF PROMOTE AT MAX GOAL 75CC/HR WITH 120CC FREE WATER Q 6HRS PROVIDES 1800KCALS (23KCALS/KG BASED ON IBW), 112.5G PROTEIN (1.4G/KG), 1990CC TOTAL WATER FROM FORMULA AND FLUSHES (25CC/KG BASED ON IBW) STRICT PO INTAKE RECORDS WILL WEAN OFF TF WHEN PO INTAKE >/=50% FOLLOWING
[2020-07-16 11:02] VITALS: BP 158/80; PULSE 78; RESP 20; TEMP 36.1; O2SAT 97
--- NOTE | 2020-07-16 11:03 | P.PNIM_ITS ---
Subjective Subjective Date of Service: 07/16/20 Interval History: wants to smoke Cardiovascular Cardiovascular: Reports no additional cardiovascular complaints Respiratory Respiratory: Reports no additional respiratory complaints Physical Exam Vital Signs: Vital Signs: Last Vital Signs Temp 97 F 07/16/20 11:02 Pulse 78 07/16/20 11:02 Resp 20 07/16/20 11:02 BP 158/80 H 07/16/20 11:02 Pulse Ox 97 07/16/20 11:02 Body Mass Index 25.9 General: Alert, no acute distress Resp: CTA bilateral CVS: S1,S2,RRR GI: soft, non tender, non distended Neuro: motor grossly intact Psych: appropriate affect Objective Data Current Medications Generic Name Dose Route Start Last Admin Trade Name Freq PRN Reason Stop Dose Admin Acetaminophen 650 mg 07/08/20 06:36 07/09/20 08:39 Acetaminophen 325 Mg Tablet PO 650 mg Q8H PRN Administration Fever Apixaban 5 mg 06/18/20 14:30 07/16/20 08:55 Apixaban 5 Mg Tablet G-TUBE 5 mg BID JESSICA Administration Chlorhexidine Gluconate 15 ml 06/05/20 02:00 07/16/20 08:55 Chlorhexidine Gluc Oral Rinse 15 Ml Mouthwash BUCCAL 15 ml TID JESSICA Administration Digoxin 0.25 mg 06/21/20 09:00 07/16/20 08:55 Digoxin 0.25 Mg Tablet G-TUBE 0.25 mg DAILY JESSICA Administration Furosemide 20 mg 07/12/20 09:00 07/16/20 08:55 Furosemide 20 Mg Tablet G-TUBE 20 mg DAILY JESSICA Administration Protocol Lorazepam 0.5 mg 07/12/20 13:00 07/16/20 04:45 Lorazepam 0.5 Mg Tablet G-TUBE 0.5 mg Q8H JESSICA Administration Lorazepam 1 mg 07/15/20 16:41 Lorazepam 2 Mg/Ml Vial IVPUSH Q6H PRN Anxiety Metoprolol Tartrate 25 mg 06/21/20 21:00 07/16/20 08:55 Metoprolol Tartrate 25 Mg Tablet PO 25 mg BID JESSICA Administration Protocol Nicotine 21 mg 07/09/20 09:00 07/16/20 08:55 Nicotine 21 Mg Patch.Td24 TRANSDERMA 21 mg DAILY JESSICA Administration Omeprazole 40 mg 06/13/20 09:15 07/16/20 06:09 Omeprazole 20 Mg/10 Ml Susp.Recon PO 40 mg DAILY@0630 [facility] Administration Sodium Chloride 3 ml 05/30/20 08:00 07/16/20 08:56 0.9 % Sodium Chloride Flush 3 Ml Syringe IVFLUSH 3 ml QSHIFT JESSICA Administration Labs CBC & Chem 7: 07/09/20 05:40 07/16/20 05:24 Microbiology Microbiology Results: Microbiology 06/16/20 18:53 Bronch Lll - Bronchial Fungal Identification - Preliminary No growth after 3 weeks. 07/08/20 07:39 Blood - Venous Blood Culture - Final No growth after 5 days. 07/08/20 07:39 Blood - Venous Blood Culture - Final No growth after 5 days. 06/26/20 19:31 Blood - Venous Blood Culture - Final No growth after 5 days. 06/26/20 19:37 Blood - Venous Blood Culture - Final No growth after 5 days. 06/25/20 00:48 Blood - Venous Blood Culture - Final No growth after 5 days. 06/25/20 00:45 Blood - Venous Blood Culture - Final No growth after 5 days. 06/27/20 08:40 Sputum - Expectorated Gram Stain - Final 06/27/20 08:40 Sputum - Expectorated Sputum Culture - Final 06/26/20 20:37 Urine [place] Urine Culture - Final No growth. 06/20/20 17:59 Blood - Venous Blood Culture - Final No growth after 5 days. 06/20/20 17:52 Blood - Venous Blood Culture - Final No growth after 5 days. 06/23/20 Unknown Sputum - Induced Gram Stain - Final 06/23/20 Unknown Sputum - Induced Sputum Culture - Final 06/23/20 12:52 Urine [place] Urine Culture - Final No growth. 06/17/20 06:12 Blood - Venous Blood Culture - Final No growth after 5 days. 06/17/20 06:08 Blood - Venous Blood Culture - Final No growth after 5 days. 06/16/20 18:53 Bronch Lll - Bronchial Gram Stain - Final 06/16/20 18:53 Bronch Lll - Bronchial Routine Culture - Final Escherichia coli 06/18/20 10:08 Sputum - Suctioned Gram Stain - Final 06/18/20 10:08 Sputum - Suctioned Sputum Culture - Final Escherichia coli 06/09/20 13:11 Stool Stool Culture - Final 06/05/20 03:40 Blood - Venous Blood Culture - Final No growth after 5 days. 06/05/20 03:36 Blood - Venous Blood Culture - Final No growth after 5 days. 06/04/20 11:45 Blood - Venous Blood Culture - Final No growth after 5 days. 06/04/20 11:45 Blood - Venous Blood Culture - Final No growth after 5 days. 06/05/20 03:31 Sputum - Suctioned Gram Stain - Final 06/05/20 03:31 Sputum - Suctioned Sputum Culture - Final 06/04/20 11:35 Urine Catheterized - Powers Catheter Urine Culture - Final No growth. Assessment and Plan (1) Alcohol withdrawal syndrome: Status: Acute (2) HTN (hypertension): Status: Acute (3) Sleep apnea: Problem details: The tracheostomy was helping with potential side effects of untreated sleep apnea Status: Acute Assessment and Plan: 60yo M with PMHx EtOH abuse, MJ, HTN, obesity originally admitted for EtOH withdrawal 05/29/20 hospital course complicated by cardiopulmonary arrest 06/04/20, resuscitated + intubated ICU course complicated by [facility] requiring temporary HD, drug fever, decompensated R-sided CHF, new-onset AF, and encephalopathy tracheostomy and PEG tube 06/16/20 weaned to trach collar 06/28/20 stepped down to IMC status 06/30/20 changed to uncuffed trach 07/02/20 trach fell out overnight 07/13/20, ABG and sats have been fine, advanced to puree diet with thins now on puree diet, wean gtube feeds as diet increases acute hypoxic respiratory failure resolved HyperK, [facility]LIN (required dialysis during this hospitalization) both resolved low dose lasix; hold off aldactone / AIDAN-I due to recent MERLIN / HyperK acute/chronic R-sided HF continue digoxin, metoprolol, spironolactone, lisinopril, and furosemide -- discontinued due to MERLIN; restarted lasix 20mg 07/11/2020, monitor SCr -- if stable, may restart lisinopril Fevers resolved, cultures negative R leg pain resolved AF continue metoprolol for rate control continue apixaban for anticoagulation . encephalopathy s/p cardiac arrest + prolonged ICU course. slowly improving. MRI 06/14/20 no acute disease. tube feeds: Promote 75 mL/hr + free water 120 mL q6h originally treated with phenobarbital for EtOH withdrawal + thiamine for suspected Wernicke encephalopathy, resolved dispo:pending placement
--- NOTE | 2020-07-16 11:36 | MHC.CM.PN ---
per rounds pt ready for dc cm continuing with bed search
[2020-07-16 16:00] VITALS: BP 131/67; PULSE 82; RESP 16; TEMP 36.8; O2SAT 90
[2020-07-16] MEDS: LORazepam 2 MG/ML VIAL 1 MG IVPUSH (16:56)
[2020-07-16 20:00] VITALS: BP 136/76; PULSE 80; RESP 18; O2SAT 94
[2020-07-16 20:26] VITALS: BP 136/76; PULSE 80
[2020-07-17] VITALS: BP 105/63; PULSE 80; RESP 20; TEMP 37.2; O2SAT 95
[2020-07-17 03:57] VITALS: BP 154/89; PULSE 82; RESP 18; TEMP 36.6; O2SAT 96
[2020-07-17] MEDS: LORazepam 0.5 MG TABLET G-TUBE ×2 (05:39→12:43)
[2020-07-17 06:22] LABS: PLT ABN DIST 1; SCAN SMEAR FLAG 1
[2020-07-17 06:24] LABS: Basophils Absolute Auto 0.1 X10*3/uL (0.0-0.2); Basophils Percent Auto 0.6 % (0-2); Eosinophils Absolute Auto 0.3 X10*3/uL (0.0-0.4); Eosinophils Percent Auto 2.4 % (0-4); Hematocrit 43.3 % (42-52); Hemoglobin 13.9 g/dl (14.0-18.0); Imm Gran Abs Auto 0.04 X10*3/uL (0.00-0.03); Imm Gran Pct Auto 0.3 % (0.0-0.4); Lymphocytes Absolute Auto 3.4 X10*3/uL (1.2-4.9); Mean Corpuscular HGB Conc 32.1 g/dl (31.0-36.0); Mean Corpuscular Hemoglobin 30.5 pg (27.0-33.0); Mean Platelet Volume 13.4 fL (9.4-12.4); Monocytes Absolute Auto 1.4 X10*3/uL (0.1-1.2); Monocytes Percent Auto 10.9 % (2-11); Neutrophils Absolute Auto 7.4 X10*3/uL (2.0-8.3); Neutrophils Percent Auto 58.8 % (45-73); Platelet Count 242 X10*3/uL (160-400); Red Blood Count 4.56 X10*6/uL (4.60-5.80); Red Cell Distribution Width 14.4 % (11.0-16.0); White Blood Count 12.6 X10*3/uL (4.8-10.8)
[2020-07-17 06:30] LABS: MANUAL DIFF FLAG NO
[2020-07-17 07:00] VITALS: BP 154/82; PULSE 88; RESP 22; TEMP 36.6; O2SAT 94
[2020-07-17 07:14] LABS: Anion Gap 20 (12-20); Blood Urea Nitrogen 44 mg/dL (9-16); Calcium 10.5 mg/dL (8.4-10.2); Carbon Dioxide 26 mmol/L (22-29); Chloride 94 mmol/L (96-108); Creatinine Clr Calc Pharmacy 73.9; Estimated Glomerular Filt Rate > 60; Glucose Fasting 161 mg/dL (60-99); Potassium 5.1 mmol/l (3.3-5.1); Sodium 135 mmol/L (135-145)
--- NOTE | 2020-07-17 09:10 | HO.PM.IMPN ---
Subjective Subjective Date of Service: 07/17/20 Interval History: no copmlaints Cardiovascular Cardiovascular: Reports no additional cardiovascular complaints Gastrointestinal Gastrointestinal: Reports no additional gastrointestinal complaints Physical Exam Vital Signs: Vital Signs: Last Vital Signs Temp 97.9 F 07/17/20 07:00 Pulse 88 07/17/20 07:00 Resp 22 H 07/17/20 07:00 BP 154/82 H 07/17/20 07:00 Pulse Ox 94 07/17/20 07:00 Body Mass Index 25.9 General: Alert, confused, no acute distress Resp: CTA bilateral CVS: S1,S2,RRR GI: soft, non tender, non distended Neuro: motor grossly intact Psych: appropriate affect Objective Data Current Medications Generic Name Dose Route Start Last Admin Trade Name Freq PRN Reason Stop Dose Admin Acetaminophen 650 mg 07/08/20 06:36 07/09/20 08:39 Acetaminophen 325 Mg Tablet PO 650 mg Q8H PRN Administration Fever Apixaban 5 mg 06/18/20 14:30 07/16/20 20:26 Apixaban 5 Mg Tablet G-TUBE 5 mg BID JESSICA Administration Chlorhexidine Gluconate 15 ml 06/05/20 02:00 07/16/20 20:26 Chlorhexidine Gluc Oral Rinse 15 Ml Mouthwash BUCCAL 15 ml TID JESSICA Administration Digoxin 0.25 mg 06/21/20 09:00 07/16/20 08:55 Digoxin 0.25 Mg Tablet G-TUBE 0.25 mg DAILY JESSICA Administration Furosemide 20 mg 07/12/20 09:00 07/16/20 08:55 Furosemide 20 Mg Tablet G-TUBE 20 mg DAILY JESSICA Administration Protocol Lorazepam 0.5 mg 07/12/20 13:00 07/17/20 05:39 Lorazepam 0.5 Mg Tablet G-TUBE 0.5 mg Q8H JESSICA Administration Lorazepam 1 mg 07/15/20 16:41 07/16/20 16:56 Lorazepam 2 Mg/Ml Vial IVPUSH 1 mg Q6H PRN Administration Anxiety Metoprolol Tartrate 25 mg 06/21/20 21:00 07/16/20 20:26 Metoprolol Tartrate 25 Mg Tablet PO 25 mg BID JESSICA Administration Protocol Nicotine 21 mg 07/09/20 09:00 07/16/20 08:55 Nicotine 21 Mg Patch.Td24 TRANSDERMA 21 mg DAILY JESSICA Administration Omeprazole 40 mg 06/13/20 09:15 07/17/20 05:39 Omeprazole 20 Mg/10 Ml Susp.Recon PO 40 mg DAILY@0630 [facility] Administration Sodium Chloride 3 ml 05/30/20 08:00 07/16/20 20:26 0.9 % Sodium Chloride Flush 3 Ml Syringe IVFLUSH 3 ml QSHIFT JESSICA Administration Labs CBC & Chem 7: 07/17/20 05:19 07/17/20 05:19 Microbiology Microbiology Results: Microbiology 06/16/20 18:53 Bronch Lll - Bronchial Fungal Identification - Preliminary No growth after 3 weeks. 07/08/20 07:39 Blood - Venous Blood Culture - Final No growth after 5 days. 07/08/20 07:39 Blood - Venous Blood Culture - Final No growth after 5 days. 06/26/20 19:31 Blood - Venous Blood Culture - Final No growth after 5 days. 06/26/20 19:37 Blood - Venous Blood Culture - Final No growth after 5 days. 06/25/20 00:48 Blood - Venous Blood Culture - Final No growth after 5 days. 06/25/20 00:45 Blood - Venous Blood Culture - Final No growth after 5 days. 06/27/20 08:40 Sputum - Expectorated Gram Stain - Final 06/27/20 08:40 Sputum - Expectorated Sputum Culture - Final 06/26/20 20:37 Urine [place] Urine Culture - Final No growth. 06/20/20 17:59 Blood - Venous Blood Culture - Final No growth after 5 days. 06/20/20 17:52 Blood - Venous Blood Culture - Final No growth after 5 days. 06/23/20 Unknown Sputum - Induced Gram Stain - Final 06/23/20 Unknown Sputum - Induced Sputum Culture - Final 06/23/20 12:52 Urine [place] Urine Culture - Final No growth. 06/17/20 06:12 Blood - Venous Blood Culture - Final No growth after 5 days. 06/17/20 06:08 Blood - Venous Blood Culture - Final No growth after 5 days. 06/16/20 18:53 Bronch Lll - Bronchial Gram Stain - Final 06/16/20 18:53 Bronch Lll - Bronchial Routine Culture - Final Escherichia coli 06/18/20 10:08 Sputum - Suctioned Gram Stain - Final 06/18/20 10:08 Sputum - Suctioned Sputum Culture - Final Escherichia coli 06/09/20 13:11 Stool Stool Culture - Final 06/05/20 03:40 Blood - Venous Blood Culture - Final No growth after 5 days. 06/05/20 03:36 Blood - Venous Blood Culture - Final No growth after 5 days. 06/04/20 11:45 Blood - Venous Blood Culture - Final No growth after 5 days. 06/04/20 11:45 Blood - Venous Blood Culture - Final No growth after 5 days. 06/05/20 03:31 Sputum - Suctioned Gram Stain - Final 06/05/20 03:31 Sputum - Suctioned Sputum Culture - Final 06/04/20 11:35 Urine Catheterized - Powers Catheter Urine Culture - Final No growth. Assessment and Plan (1) Alcohol withdrawal syndrome: Status: Acute (2) HTN (hypertension): Status: Acute (3) Sleep apnea: Problem details: The tracheostomy was helping with potential side effects of untreated sleep apnea Status: Acute Assessment and Plan: 60yo M with PMHx EtOH abuse, MJ, HTN, obesity originally admitted for EtOH withdrawal 05/29/20 hospital course complicated by cardiopulmonary arrest 06/04/20, resuscitated + intubated ICU course complicated by [facility] requiring temporary HD, drug fever, decompensated R-sided CHF, new-onset AF, and encephalopathy tracheostomy and PEG tube 06/16/20 weaned to trach collar 06/28/20 stepped down to IMC status 06/30/20 changed to uncuffed trach 07/02/20 trach fell out overnight 07/13/20, ABG and sats have been fine, advanced to puree diet with thins now on puree diet, nutrition eval to assist to wean gtube feeds as diet increases acute hypoxic respiratory failure resolved HyperK, MERLIN (required dialysis during this hospitalization) both resolved low dose lasix; hold off aldactone / AIDAN-I due to recent MERLIN / HyperK acute/chronic R-sided HF continue digoxin, metoprolol, spironolactone, lisinopril, and furosemide -- discontinued due to MERLIN; restarted lasix 20mg 07/11/2020, monitor SCr -- if stable, may restart lisinopril Fevers resolved, cultures negative R leg pain resolved AF continue metoprolol for rate control continue apixaban for anticoagulation dispo:pending placement
[2020-07-17] MEDS: Digoxin 0.25 MG TABLET G-TUBE (09:16)
[2020-07-17] MEDS: Furosemide 20 MG TABLET G-TUBE (09:16)
[2020-07-17] MEDS: Apixaban 5 MG TABLET G-TUBE (09:16)
[2020-07-17] MEDS: Nicotine 21 MG PATCH.TD24 TRANSDERMA (09:16)
[2020-07-17] MEDS: Metoprolol Tartrate 25 MG TABLET PO (09:16)
[2020-07-17] MEDS: 0.9 % Sodium Chloride Flush 3 ML SYRINGE IVFLUSH (09:27)
--- NOTE | 2020-07-17 09:38 | PM.PNPUL ---
Subjective Subjective Date of Service: 07/17/20 Principal diagnosis: alcohol withdrawal, atrial fibrillation Interval history: The patient was seen and examined. He continues to be somnolent. He does not follow any commands. She is to be doing well on room air. He is getting tube feeds at this time. Objective Data Labs CBC & Chem 7: 07/17/20 05:19 07/17/20 05:19 Labs: Laboratory Results - last 24 hr 07/17/20 07/17/20 05:19 05:19 WBC 12.6 H RBC 4.56 L Hgb 13.9 L Hct 43.3 MCV 95.0 MCH 30.5 MCHC 32.1 RDW 14.4 Plt Count 242 MPV 13.4 H Immature Gran % (Auto) 0.3 Neut % (Auto) 58.8 Lymph % (Auto) 27.0 [place] % (Auto) 10.9 Eos % (Auto) 2.4 Baso % (Auto) 0.6 Lymph # (Auto) 3.4 [place] # (Auto) 1.4 H Eos # (Auto) 0.3 Baso # (Auto) 0.1 Abs Immat Gran (auto) 0.04 H Absolute Neuts (auto) 7.4 Absolute Nucleated RBC 0.000 Nucleated RBC % (auto) 0.0 Sodium 135 Potassium 5.1 Chloride 94 L Carbon Dioxide 26 Anion Gap 20 BUN 44 H Creatinine 1.18 Estim Creat Clear Calc 73.9 Estimated GFR > 60 Random Glucose TNP Fasting Glucose 161 H Calcium 10.5 H Microbiology Microbiology Results: Microbiology 06/16/20 18:53 Bronch Lll - Bronchial Fungal Identification - Preliminary No growth after 3 weeks. 07/08/20 07:39 Blood - Venous Blood Culture - Final No growth after 5 days. 07/08/20 07:39 Blood - Venous Blood Culture - Final No growth after 5 days. 06/26/20 19:31 Blood - Venous Blood Culture - Final No growth after 5 days. 06/26/20 19:37 Blood - Venous Blood Culture - Final No growth after 5 days. 06/25/20 00:48 Blood - Venous Blood Culture - Final No growth after 5 days. 06/25/20 00:45 Blood - Venous Blood Culture - Final No growth after 5 days. 06/27/20 08:40 Sputum - Expectorated Gram Stain - Final 06/27/20 08:40 Sputum - Expectorated Sputum Culture - Final 06/26/20 20:37 Urine [place] Urine Culture - Final No growth. 06/20/20 17:59 Blood - Venous Blood Culture - Final No growth after 5 days. 06/20/20 17:52 Blood - Venous Blood Culture - Final No growth after 5 days. 06/23/20 Unknown Sputum - Induced Gram Stain - Final 06/23/20 Unknown Sputum - Induced Sputum Culture - Final 06/23/20 12:52 Urine [place] Urine Culture - Final No growth. 06/17/20 06:12 Blood - Venous Blood Culture - Final No growth after 5 days. 06/17/20 06:08 Blood - Venous Blood Culture - Final No growth after 5 days. 06/16/20 18:53 Bronch Lll - Bronchial Gram Stain - Final 06/16/20 18:53 Bronch Lll - Bronchial Routine Culture - Final Escherichia coli 06/18/20 10:08 Sputum - Suctioned Gram Stain - Final 06/18/20 10:08 Sputum - Suctioned Sputum Culture - Final Escherichia coli 06/09/20 13:11 Stool Stool Culture - Final 06/05/20 03:40 Blood - Venous Blood Culture - Final No growth after 5 days. 06/05/20 03:36 Blood - Venous Blood Culture - Final No growth after 5 days. 06/04/20 11:45 Blood - Venous Blood Culture - Final No growth after 5 days. 06/04/20 11:45 Blood - Venous Blood Culture - Final No growth after 5 days. 06/05/20 03:31 Sputum - Suctioned Gram Stain - Final 06/05/20 03:31 Sputum - Suctioned Sputum Culture - Final 06/04/20 11:35 Urine Catheterized - Powers Catheter Urine Culture - Final No growth. Review of Systems Review of Systems Yes Unobtainable due to mental status Constitutional: Denies frequent falls, Denies headache(s) and Reports weakness Denies headache(s) Reports confusion, Denies frequent falls, Denies headache(s) and Reports weakness Psychiatric: Reports confusion Physical Exam Vital Signs: Vital Signs: Last Vital Signs Temp 97.9 F 07/17/20 07:00 Pulse 88 07/17/20 07:00 Resp 22 H 07/17/20 07:00 BP 154/82 H 07/17/20 07:00 Pulse Ox 94 07/17/20 07:00 Body Mass Index 25.9 Const: General: confusion Orientation/consciousness: confusion Neck: Neck: Yes normal visual inspection, Yes no lymphadenopathy and Yes trachea midline Resp: Auscultation: diminished lung sounds Cardio: Rhythm: regular rhythm Heart sounds: S1 normal heart sound present and S2 normal heart sound present Neuro: General: confusion Assessment and Plan Assessment and plan (1) Cardiac arrest with successful resuscitation: Status: Acute (2) Encephalopathy: Problem details: S/p self decannulation Status: Acute Assessment and Plan: repeat venough gas to r/o hypercarbic encephalopathy Time Spent With Patient Time: Total time spent is greater than 50% in coordination of care (as documented) at patient's floor/unit and/or counseling patient: Time with patient: 15 - 24 minutes
[2020-07-17 10:39] LABS: PCO2 VBG 71 mmHg; PO2 VBG 39 mmHg
[2020-07-17 10:40] LABS: Base Excess VBG 16.6 mmol/L; HCO3 VBG 45 mmol/L
[2020-07-17 11:13] VITALS: BP 142/74; PULSE 68; RESP 20; TEMP 36; O2SAT 96
--- NOTE | 2020-07-17 11:47 | P.DS_ITS ---
DS: Providers Provider Date of Service: 07/17/20 Date of admission: 05/30/20 00:35 Primary care physician: EVELYN Mckoy Consults: 05/29/20 21:16 Consult to Care Team Stat Comment: Reason for consultation: wants detox 05/30/20 06:43 Consult to Cardiology Routine Consulting Provider: [facility] Reason for consultation: new onset afib Has provider been notified: No 06/01/20 09:48 Consult to Nephrology Routine Consulting Provider: [facility] Reason for consultation: MERLIN 06/04/20 10:24 Consult to Neurology Routine Consulting Provider: [facility] Reason for consultation: encephalopathy persistent 06/04/20 11:10 Consult to Pulmonology Routine Consulting Provider: [facility] Reason for consultation: MJ/OHS> persistent resp acidosis, expected pCO2 32 06/05/20 13:16 Consult to Infectious Diseases Routine Consulting Provider: True Pfeiffer Reason for consultation: meropenem 06/09/20 08:28 Consult to Wound Care Provider Routine Consulting Provider: Geraldine Griffith Reason for consultation: STAGE II TO COCCYX - SLIT, ASSESS AND TREAT 06/18/20 10:18 Consult to Infectious Diseases Routine Consulting Provider: Lisa Clifford Reason for consultation: Fever w no source Has provider been notified: Yes 07/10/20 11:06 Consult to Psychiatry Routine Consulting Provider: Osito Corado Reason for consultation: trach/peg - needs help with behavioral control DS: Diagnosis Discharge Diagnosis (1) Cardiac arrest with successful resuscitation: Status: Acute (2) Encephalopathy: Status: Acute Problem details: S/p self decannulation (3) Trachea displaced: Status: Acute Problem details: The patient self decannulated. At this point the stoma is close therefore we cannot be placed even smaller size tracheostomy and is placed If he does need a replacement tracheostomy would have to have a surgical procedure. (4) Alcohol use disorder, severe, dependence: Status: Acute (5) Afib: Status: Acute (6) Fever of unknown origin: Status: Acute (7) Acute and chronic respiratory failure with hypoxia: Status: Acute Problem details: Appears to be doing better this time. Currently on trach collar although not much air movement is occurring to the stoma therefore he is basically on room air. (8) Diastolic CHF, acute on chronic: Status: Acute (9) Dermatitis, unspecified: Status: Acute Problem details: Coccygeal skin breakdown with moisture harboring (10) Acute kidney failure: Status: Acute Problem details: Due to ATN Renal fx is improving No indication for HD today Watch UO and labs (11) Obesity hypoventilation syndrome: Status: Acute (12) Restrictive lung disease secondary to obesity: Status: Acute Problem details: on CPAP and duonebs at home (13) Alcohol withdrawal syndrome: Status: Acute DS: Medications Discharge Medications Home Medications: Previous Rx's Medication Instructions Recorded albuterol sulfate 2 puff INHALATION Q4-6H PRN #18 g 04/10/20 apixaban [Eliquis] 5 mg G-TUBE BID #60 tab 07/17/20 digoxin 250 mcg G-TUBE DAILY #30 tab 07/17/20 furosemide 20 mg G-TUBE DAILY #30 tab 07/17/20 lorazepam 0.5 mg G-TUBE Q8H #90 tab 07/17/20 metoprolol tartrate 25 mg PO BID #60 tab 07/17/20 omeprazole 40 mg PO DAILY@0630 #60 cap 07/17/20 DS: Summary Hospital Course Hospital Course: Patient had a prolonged hospital stay, please see medical record for full report. In summary: patient was originally admitted for EtOH withdrawal 05/29/20 hospital course was complicated by cardiopulmonary arrest 06/04/20, he was resuscitated + intubated ICU course was complicated by MERLIN requiring temporary HD, drug fever, decompensated R-sided CHF, new-onset atrial fibrillaiton, and encephalopathy tracheostomy and PEG tube were done on 06/16/20. he was weaned to trach collar 06/28/20. he was stepped down to IMC status 06/30/20. changed to uncuffed trach 07/02/20. was mostly stable waiting for LTAC bed. trach then fell out overnight 07/13/20, afterwards ABG and sats were fine and site looked closed, so was not replaced, he was advanced to puree diet with thin liquids, and Gtube feeds are in process of being weaned off. as he no longer need LTAC level of care, will be discharged to SNF. plan: acute hypoxic respiratory failure resolved MERLIN (required dialysis during this hospitalization) both resolved low dose lasix; hold off aldactone / AIDAN-I due to recent MERLIN / HyperK Fevers resolved, cultures negative, off antibiotics new afib continue metoprolol, digoxin continue apixaban for anticoagulation dysphagia PROMOTE AT MAX GOAL 75CC/HR WITH 120CC FREE WATER Q 6HRS PROVIDES 1800KCALS (23KCALS/KG BASED ON IBW), 112.5G PROTEIN (1.4G/KG), 1990CC TOTAL WATER FROM FORMULA AND FLUSHES (25CC/KG BASED ON IBW) WEAN OFF TF WHEN PO INTAKE >/=50% Time Spent with Patient Time attestation: Total time spent providing and/or coordinating discharge services: Discharge coordination time: Greater than 30 minutes Physical Exam Vital Signs: Vital Signs: Last Vital Signs Temp 96.8 F 07/17/20 11:13 Pulse 68 07/17/20 11:13 Resp 20 07/17/20 11:13 BP 142/74 H 07/17/20 11:13 Pulse Ox 96 07/17/20 11:13 Body Mass Index 25.9 General: Alert, confused, no acute distress Resp: CTA bilateral CVS: S1,S2,RRR GI: soft, non tender, non distended Neuro: motor grossly intact Psych: appropriate affect DS: Data Data Completed and Pending Labs on day of discharge: Laboratory Tests 05/29/20 05/29/20 05/29/20 21:35 21:35 21:35 WBC 9.3 RBC 3.82 L D Hgb 13.9 L D Hct 41.8 L D MCV 109.4 H MCH 36.4 H MCHC 33.3 RDW 12.6 Plt Count 154 L D MPV 11.2 Immature Gran % (Auto) 0.4 Neut % (Auto) 65.4 Lymph % (Auto) 23.5 Placer % (Auto) 9.3 Eos % (Auto) 0.6 Baso % (Auto) 0.8 Lymph # (Auto) 2.2 Placer # (Auto) 0.9 Eos # (Auto) 0.1 Baso # (Auto) 0.1 Abs Immat Gran (auto) 0.04 H Absolute Neuts (auto) 6.1 Absolute Nucleated RBC 0.000 Nucleated RBC % (auto) 0.0 Neutrophils % (Manual) Band Neutrophils % Lymphocytes % (Manual) Monocytes % (Manual) Abs Neuts (Manual) Lymphocytes # (Manual) Monocytes # (Manual) Nucleated RBCs Platelet Estimate Plt Morphology Comment RBC Morphology Polychromasia Microcytosis Macrocytosis Tear Drop Cells [place] Cells Smear Tech's Comments Smear Path Review ESR PT INR APTT PTT (Heparin Protocol) ABG pH ABG pCO2 ABG pO2 ABG HCO3 ABG O2 Saturation ABG Base Excess VBG pH VBG pCO2 VBG pO2 VBG HCO3 VBG O2 Saturation VBG Base Excess Oxygen Given Sodium 140 Potassium 4.1 Chloride 94 L Carbon Dioxide 36 H Anion Gap 14 BUN 12 Creatinine 0.91 Estim Creat Clear Calc 139.4 Estimated GFR > 60 POC Glucose Random Glucose 119 H Fasting Glucose Osmolality Lactic Acid Lactic Acid Fup @ 2Hr Lactic Acid Fup @ 4Hr Calcium 8.6 Uric Acid Phosphorus Magnesium Total Bilirubin 1.2 H Direct Bilirubin AST 29 D ALT 11 Alkaline Phosphatase 115 Ammonia Lactate Dehydrogenase Total Creatine Kinase C-Reactive Protein B-Natriuretic Peptide Total Protein 7.2 Albumin 3.4 L Lipase Vitamin B12 248 Vitamin B1 Procalcitonin Urine Color Urine Appearance Urine pH Ur Specific [place] Urine Protein Urine Glucose (UA) Urine Ketones Urine Blood Urine Nitrite Ur Leukocyte Esterase Urine RBC Urine WBC Ur Squamous Epith Cells Amorphous Sediment Urine Bacteria Hyaline Casts U Random Total Protein Ur Random Sodium Urine Creatinine Protein/Creatinin Ratio Bronchial Fluid WBC Bronchial Fluid RBC Bronchial Neutrophils Stool Leukocytes, Qual Random Vancomycin Digoxin Salicylates Urine Opiates Screen Ur Barbiturates Screen Ur Phencyclidine Scrn Ur Amphetamines Screen U Benzodiazepines Scrn Urine Cocaine Screen U Marijuana (THC) Screen Ethyl Alcohol T.pallidum Ab (EIA) C. difficile Toxin A&B C. difficile Antigen C. difficile Interpret Coronavirus (PCR) COVID-19 (LINDEN) COVID-19 Clin Com Hepatitis A IgM Ab Hep Bs Antigen Hep Bs Antibody Hep B Core Total Ab Hepatitis C Ab (EIA) HIV 1&2 Ab/P24 Ag 4thGn Influenza Type A (PCR) Influenza Type B (PCR) RSV RNA Qual (PCR) SARS-CoV-2 IgG Ab Blood Type Antibody Screen 05/29/20 05/29/20 05/29/20 21:35 21:35 22:06 WBC RBC Hgb Hct MCV MCH MCHC RDW Plt Count MPV Immature Gran % (Auto) Neut % (Auto) Lymph % (Auto) [place] % (Auto) Eos % (Auto) Baso % (Auto) Lymph # (Auto) Placer # (Auto) Eos # (Auto) Baso # (Auto) Abs Immat Gran (auto) Absolute Neuts (auto) Absolute Nucleated RBC Nucleated RBC % (auto) Neutrophils % (Manual) Band Neutrophils % Lymphocytes % (Manual) Monocytes % (Manual) Abs Neuts (Manual) Lymphocytes # (Manual) Monocytes # (Manual) Nucleated RBCs Platelet Estimate Plt Morphology Comment RBC Morphology Polychromasia Microcytosis Macrocytosis Tear Drop Cells [place] Cells Smear Tech's Comments Smear Path Review ESR PT INR APTT PTT (Heparin Protocol) ABG pH ABG pCO2 ABG pO2 ABG HCO3 ABG O2 Saturation ABG Base Excess VBG pH VBG pCO2 VBG pO2 VBG HCO3 VBG O2 Saturation VBG Base Excess Oxygen Given Sodium Potassium Chloride Carbon Dioxide Anion Gap BUN Creatinine Estim Creat Clear Calc Estimated GFR POC Glucose Random Glucose Fasting Glucose Osmolality Lactic Acid Lactic Acid Fup @ 2Hr Lactic Acid Fup @ 4Hr Calcium Uric Acid Phosphorus Magnesium Total Bilirubin Direct Bilirubin AST ALT Alkaline Phosphatase Ammonia Lactate Dehydrogenase Total Creatine Kinase C-Reactive Protein B-Natriuretic Peptide Total Protein Albumin Lipase Vitamin B12 Vitamin B1 Procalcitonin Urine Color Urine Appearance Urine pH Ur Specific [place] Urine Protein Urine Glucose (UA) Urine Ketones Urine Blood Urine Nitrite Ur Leukocyte Esterase Urine RBC Urine WBC Ur Squamous Epith Cells Amorphous Sediment Urine Bacteria Hyaline Casts U Random Total Protein Ur Random Sodium Urine Creatinine Protein/Creatinin Ratio Bronchial Fluid WBC Bronchial Fluid RBC Bronchial Neutrophils Stool Leukocytes, Qual Random Vancomycin Digoxin Salicylates Urine Opiates Screen Not Detected Ur Barbiturates Screen Not Detected Ur Phencyclidine Scrn Not Detected Ur Amphetamines Screen Not Detected U Benzodiazepines Scrn Not Detected Urine Cocaine Screen Not Detected U Marijuana (THC) Screen Not Detected Ethyl Alcohol < 10 T.pallidum Ab (EIA) C. difficile Toxin A&B C. difficile Antigen C. difficile Interpret Coronavirus (PCR) COVID-19 (LINDEN) Negative COVID-19 Clin Com See Note Hepatitis A IgM Ab Hep Bs Antigen Hep Bs Antibody Hep B Core Total Ab Hepatitis C Ab (EIA) HIV 1&2 Ab/P24 Ag 4thGn Influenza Type A (PCR) Influenza Type B (PCR) RSV RNA Qual (PCR) SARS-CoV-2 IgG Ab Blood Type Antibody Screen 05/30/20 05/30/20 05/30/20 02:07 02:07 05:27 WBC 8.2 RBC 3.93 L Hgb 13.9 L Hct 42.7 MCV 108.7 H MCH 35.4 H MCHC 32.6 RDW 12.4 Plt Count 164 MPV 11.9 Immature Gran % (Auto) 0.4 Neut % (Auto) 61.7 Lymph % (Auto) 27.1 Placer % (Auto) 9.4 Eos % (Auto) 0.7 Baso % (Auto) 0.7 Lymph # (Auto) 2.2 Placer # (Auto) 0.8 Eos # (Auto) 0.1 Baso # (Auto) 0.1 Abs Immat Gran (auto) 0.03 Absolute Neuts (auto) 5.0 Absolute Nucleated RBC 0.020 H Nucleated RBC % (auto) 0.2 Neutrophils % (Manual) Band Neutrophils % Lymphocytes % (Manual) Monocytes % (Manual) Abs Neuts (Manual) Lymphocytes # (Manual) Monocytes # (Manual) Nucleated RBCs Platelet Estimate Plt Morphology Comment RBC Morphology Polychromasia Microcytosis Macrocytosis Tear Drop Cells [place] Cells Smear Tech's Comments Smear Path Review ESR PT Cancelled 14.3 H INR Cancelled 1.2 H APTT 32.8 PTT (Heparin Protocol) ABG pH ABG pCO2 ABG pO2 ABG HCO3 ABG O2 Saturation ABG Base Excess VBG pH VBG pCO2 VBG pO2 VBG HCO3 VBG O2 Saturation VBG Base Excess Oxygen Given Sodium Potassium Chloride Carbon Dioxide Anion Gap BUN Creatinine Estim Creat Clear Calc Estimated GFR POC Glucose Random Glucose Fasting Glucose Osmolality Lactic Acid Lactic Acid Fup @ 2Hr Lactic Acid Fup @ 4Hr Calcium Uric Acid Phosphorus Magnesium Total Bilirubin Direct Bilirubin AST ALT Alkaline Phosphatase Ammonia Lactate Dehydrogenase Total Creatine Kinase C-Reactive Protein B-Natriuretic Peptide Total Protein Albumin Lipase Vitamin B12 Vitamin B1 Procalcitonin Urine Color Urine Appearance Urine pH Ur Specific [place] Urine Protein Urine Glucose (UA) Urine Ketones Urine Blood Urine Nitrite Ur Leukocyte Esterase Urine RBC Urine WBC Ur Squamous Epith Cells Amorphous Sediment Urine Bacteria Hyaline Casts U Random Total Protein Ur Random Sodium Urine Creatinine Protein/Creatinin Ratio Bronchial Fluid WBC Bronchial Fluid RBC Bronchial Neutrophils Stool Leukocytes, Qual Random Vancomycin Digoxin Salicylates Urine Opiates Screen Ur Barbiturates Screen Ur Phencyclidine Scrn Ur Amphetamines Screen U Benzodiazepines Scrn Urine Cocaine Screen U Marijuana (THC) Screen Ethyl Alcohol T.pallidum Ab (EIA) C. difficile Toxin A&B C. difficile Antigen C. difficile Interpret Coronavirus (PCR) COVID-19 (LINDEN) COVID-19 Clin Com Hepatitis A IgM Ab Hep Bs Antigen Hep Bs Antibody Hep B Core Total Ab Hepatitis C Ab (EIA) HIV 1&2 Ab/P24 Ag 4thGn Influenza Type A (PCR) Influenza Type B (PCR) RSV RNA Qual (PCR) SARS-CoV-2 IgG Ab Blood Type Antibody Screen 05/30/20 05/31/20 05/31/20 05:27 05:42 05:42 WBC 10.8 RBC 4.04 L Hgb 14.6 Hct 44.3 MCV 109.7 H MCH 36.1 H MCHC 33.0 RDW 12.8 Plt Count 188 MPV 12.0 Immature Gran % (Auto) 0.7 H Neut % (Auto) 60.6 Lymph % (Auto) 28.0 Placer % (Auto) 9.8 Eos % (Auto) 0.3 Baso % (Auto) 0.6 Lymph # (Auto) 3.0 Pl[place] # (Auto) 1.1 Eos # (Auto) 0.0 Baso # (Auto) 0.1 Abs Immat Gran (auto) 0.07 H Absolute Neuts (auto) 6.5 Absolute Nucleated RBC 0.050 H Nucleated RBC % (auto) 0.5 H Neutrophils % (Manual) Band Neutrophils % Lymphocytes % (Manual) Monocytes % (Manual) Abs Neuts (Manual) Lymphocytes # (Manual) Monocytes # (Manual) Nucleated RBCs Platelet Estimate Plt Morphology Comment RBC Morphology Polychromasia Microcytosis Macrocytosis Tear Drop Cells [place] Cells Smear Tech's Comments Smear Path Review ESR PT INR APTT PTT (Heparin Protocol) ABG pH ABG pCO2 ABG pO2 ABG HCO3 ABG O2 Saturation ABG Base Excess VBG pH VBG pCO2 VBG pO2 VBG HCO3 VBG O2 Saturation VBG Base Excess Oxygen Given Sodium 137 132 L Potassium 3.7 4.1 Chloride 96 91 L Carbon Dioxide 28 27 Anion Gap 17 18 BUN 14 29 H D Creatinine 0.94 2.47 H Estim Creat Clear Calc 130.3 49.6 Estimated GFR > 60 27 POC Glucose Random Glucose 141 H 144 H Fasting Glucose Osmolality Lactic Acid Lactic Acid Fup @ 2Hr Lactic Acid Fup @ 4Hr Calcium 8.2 L 8.6 Uric Acid Phosphorus 3.8 Magnesium 1.4 L* Total Bilirubin Direct Bilirubin AST ALT Alkaline Phosphatase Ammonia Lactate Dehydrogenase Total Creatine Kinase C-Reactive Protein B-Natriuretic Peptide Total Protein Albumin Lipase Vitamin B12 Vitamin B1 Procalcitonin Urine Color Urine Appearance Urine pH Ur Specific [place] Urine Protein Urine Glucose (UA) Urine Ketones Urine Blood Urine Nitrite Ur Leukocyte Esterase Urine RBC Urine WBC Ur Squamous Epith Cells Amorphous Sediment Urine Bacteria Hyaline Casts U Random Total Protein Ur Random Sodium Urine Creatinine Protein/Creatinin Ratio Bronchial Fluid WBC Bronchial Fluid RBC Bronchial Neutrophils Stool Leukocytes, Qual Random Vancomycin Digoxin Salicylates Urine Opiates Screen Ur Barbiturates Screen Ur Phencyclidine Scrn Ur Amphetamines Screen U Benzodiazepines Scrn Urine Cocaine Screen U Marijuana (THC) Screen Ethyl Alcohol T.pallidum Ab (EIA) C. difficile Toxin A&B C. difficile Antigen C. difficile Interpret Coronavirus (PCR) COVID-19 (LINDEN) COVID-19 Clin Com Hepatitis A IgM Ab Hep Bs Antigen Hep Bs Antibody Hep B Core Total Ab Hepatitis C Ab (EIA) HIV 1&2 Ab/P24 Ag 4thGn Influenza Type A (PCR) Influenza Type B (PCR) RSV RNA Qual (PCR) SARS-CoV-2 IgG Ab Blood Type Antibody Screen 05/31/20 05/31/20 05/31/20 05:42 08:26 09:05 WBC RBC Hgb Hct MCV MCH MCHC RDW Plt Count MPV Immature Gran % (Auto) Neut % (Auto) Lymph % (Auto) [place] % (Auto) Eos % (Auto) Baso % (Auto) Lymph # (Auto) [place] # (Auto) Eos # (Auto) Baso # (Auto) Abs Immat Gran (auto) Absolute Neuts (auto) Absolute Nucleated RBC Nucleated RBC % (auto) Neutrophils % (Manual) Band Neutrophils % Lymphocytes % (Manual) Monocytes % (Manual) Abs Neuts (Manual) Lymphocytes # (Manual) Monocytes # (Manual) Nucleated RBCs Platelet Estimate Plt Morphology Comment RBC Morphology Polychromasia Microcytosis Macrocytosis Tear Drop Cells [place] Cells Smear Tech's Comments Smear Path Review ESR PT INR APTT PTT (Heparin Protocol) ABG pH 7.35 ABG pCO2 47 H ABG pO2 110 H ABG HCO3 25 ABG O2 Saturation 97.9 ABG Base Excess -0.8 VBG pH VBG pCO2 VBG pO2 VBG HCO3 VBG O2 Saturation VBG Base Excess Oxygen Given 2 L Sodium Potassium Chloride Carbon Dioxide Anion Gap BUN Creatinine Estim Creat Clear Calc Estimated GFR POC Glucose Random Glucose Fasting Glucose Osmolality Lactic Acid Lactic Acid Fup @ 2Hr Lactic Acid Fup @ 4Hr Calcium Uric Acid Phosphorus Magnesium 2.0 Total Bilirubin Direct Bilirubin AST ALT Alkaline Phosphatase Ammonia 42 Lactate Dehydrogenase Total Creatine Kinase C-Reactive Protein B-Natriuretic Peptide Total Protein Albumin Lipase Vitamin B12 Vitamin B1 Procalcitonin Urine Color Urine Appearance Urine pH Ur Specific [place] Urine Protein Urine Glucose (UA) Urine Ketones Urine Blood Urine Nitrite Ur Leukocyte Esterase Urine RBC Urine WBC Ur Squamous Epith Cells Amorphous Sediment Urine Bacteria Hyaline Casts U Random Total Protein Ur Random Sodium Urine Creatinine Protein/Creatinin Ratio Bronchial Fluid WBC Bronchial Fluid RBC Bronchial Neutrophils Stool Leukocytes, Qual Random Vancomycin Digoxin Salicylates Urine Opiates Screen Ur Barbiturates Screen Ur Phencyclidine Scrn Ur Amphetamines Screen U Benzodiazepines Scrn Urine Cocaine Screen U Marijuana (THC) Screen Ethyl Alcohol T.pallidum Ab (EIA) C. difficile Toxin A&B C. difficile Antigen C. difficile Interpret Coronavirus (PCR) COVID-19 (LINDEN) COVID-19 Clin Com Hepatitis A IgM Ab Hep Bs Antigen Hep Bs Antibody Hep B Core Total Ab Hepatitis C Ab (EIA) HIV 1&2 Ab/P24 Ag 4thGn Influenza Type A (PCR) Influenza Type B (PCR) RSV RNA Qual (PCR) SARS-CoV-2 IgG Ab Blood Type Antibody Screen 06/01/20 06/01/20 06/01/20 05:48 05:48 14:18 WBC 11.7 H RBC 3.96 L Hgb 14.2 Hct 42.9 MCV 108.3 H MCH 35.9 H MCHC 33.1 RDW 12.9 Plt Count 204 MPV 12.2 Immature Gran % (Auto) 0.5 H Neut % (Auto) 63.3 Lymph % (Auto) 25.3 [place] % (Auto) 10.3 Eos % (Auto) 0.2 Baso % (Auto) 0.4 Lymph # (Auto) 3.0 [place] # (Auto) 1.2 Eos # (Auto) 0.0 Baso # (Auto) 0.1 Abs Immat Gran (auto) 0.06 H Absolute Neuts (auto) 7.4 Absolute Nucleated RBC 0.050 H Nucleated RBC % (auto) 0.4 H Neutrophils % (Manual) Band Neutrophils % Lymphocytes % (Manual) Monocytes % (Manual) Abs Neuts (Manual) Lymphocytes # (Manual) Monocytes # (Manual) Nucleated RBCs Platelet Estimate Plt Morphology Comment RBC Morphology Polychromasia Microcytosis Macrocytosis Tear Drop Cells [place] Cells Smear Tech's Comments Smear Path Review ESR PT INR APTT PTT (Heparin Protocol) ABG pH ABG pCO2 ABG pO2 ABG HCO3 ABG O2 Saturation ABG Base Excess VBG pH VBG pCO2 VBG pO2 VBG HCO3 VBG O2 Saturation VBG Base Excess Oxygen Given Sodium 135 Potassium 4.6 Chloride 93 L Carbon Dioxide 25 Anion Gap 22 H BUN 43 H Creatinine 3.44 H Estim Creat Clear Calc 35.6 Estimated GFR 18 POC Glucose Random Glucose 96 Fasting Glucose Osmolality Lactic Acid Lactic Acid Fup @ 2Hr Lactic Acid Fup @ 4Hr Calcium 8.4 Uric Acid Phosphorus Magnesium Total Bilirubin Direct Bilirubin AST ALT Alkaline Phosphatase Ammonia Lactate Dehydrogenase Total Creatine Kinase C-Reactive Protein B-Natriuretic Peptide Total Protein Albumin Lipase Vitamin B12 Vitamin B1 Procalcitonin Urine Color Urine Appearance Urine pH Ur Specific [place] Urine Protein Urine Glucose (UA) Urine Ketones Urine Blood Urine Nitrite Ur Leukocyte Esterase Urine RBC Urine WBC Ur Squamous Epith Cells Amorphous Sediment Urine Bacteria Hyaline Casts U Random Total Protein Ur Random Sodium 42.0 Urine Creatinine 388.74 Protein/Creatinin Ratio Bronchial Fluid WBC Bronchial Fluid RBC Bronchial Neutrophils Stool Leukocytes, Qual Random Vancomycin Digoxin Salicylates Urine Opiates Screen Ur Barbiturates Screen Ur Phencyclidine Scrn Ur Amphetamines Screen U Benzodiazepines Scrn Urine Cocaine Screen U Marijuana (THC) Screen Ethyl Alcohol T.pallidum Ab (EIA) C. difficile Toxin A&B C. difficile Antigen C. difficile Interpret Coronavirus (PCR) COVID-19 (LINDEN) COVID-19 Clin Com Hepatitis A IgM Ab Hep Bs Antigen Hep Bs Antibody Hep B Core Total Ab Hepatitis C Ab (EIA) HIV 1&2 Ab/P24 Ag 4thGn Influenza Type A (PCR) Influenza Type B (PCR) RSV RNA Qual (PCR) SARS-CoV-2 IgG Ab Blood Type Antibody Screen 06/01/20 06/02/20 06/02/20 14:18 05:19 05:19 WBC 11.7 H RBC 4.05 L Hgb 14.3 Hct 44.4 MCV 109.6 H MCH 35.3 H MCHC 32.2 RDW 13.2 Plt Count 241 MPV 11.8 Immature Gran % (Auto) 0.7 H Neut % (Auto) 60.6 Lymph % (Auto) 26.3 [place]acer % (Auto) 11.7 H Eos % (Auto) 0.3 Baso % (Auto) 0.4 Lymph # (Auto) 3.1 [place] # (Auto) 1.4 H Eos # (Auto) 0.0 Baso # (Auto) 0.1 Abs Immat Gran (auto) 0.08 H Absolute Neuts (auto) 7.1 Absolute Nucleated RBC 0.060 H Nucleated RBC % (auto) 0.5 H Neutrophils % (Manual) Band Neutrophils % Lymphocytes % (Manual) Monocytes % (Manual) Abs Neuts (Manual) Lymphocytes # (Manual) Monocytes # (Manual) Nucleated RBCs Platelet Estimate Plt Morphology Comment RBC Morphology Polychromasia Microcytosis Macrocytosis Tear Drop Cells [place] Cells Smear Tech's Comments Smear Path Review ESR PT INR APTT PTT (Heparin Protocol) ABG pH ABG pCO2 ABG pO2 ABG HCO3 ABG O2 Saturation ABG Base Excess VBG pH VBG pCO2 VBG pO2 VBG HCO3 VBG O2 Saturation VBG Base Excess Oxygen Given Sodium 135 Potassium 4.6 Chloride 95 L Carbon Dioxide 22 Anion Gap 23 H BUN 56 H Creatinine 3.99 H Estim Creat Clear Calc 30.7 Estimated GFR 15 POC Glucose Random Glucose 82 Fasting Glucose Osmolality Lactic Acid Lactic Acid Fup @ 2Hr Lactic Acid Fup @ 4Hr Calcium 8.1 L Uric Acid Phosphorus Magnesium Total Bilirubin Direct Bilirubin AST ALT Alkaline Phosphatase Ammonia Lactate Dehydrogenase Total Creatine Kinase C-Reactive Protein B-Natriuretic Peptide Total Protein Albumin Lipase Vitamin B12 Vitamin B1 Procalcitonin Urine Color Urine Appearance Urine pH Ur Specific [place] Urine Protein Urine Glucose (UA) Urine Ketones Urine Blood Urine Nitrite Ur Leukocyte Esterase Urine RBC Urine WBC Ur Squamous Epith Cells Amorphous Sediment Urine Bacteria Hyaline Casts U Random Total Protein Ur Random Sodium Cancelled Urine Creatinine Protein/Creatinin Ratio Bronchial Fluid WBC Bronchial Fluid RBC Bronchial Neutrophils Stool Leukocytes, Qual Random Vancomycin Digoxin Salicylates Urine Opiates Screen Ur Barbiturates Screen Ur Phencyclidine Scrn Ur Amphetamines Screen U Benzodiazepines Scrn Urine Cocaine Screen U Marijuana (THC) Screen Ethyl Alcohol T.pallidum Ab (EIA) C. difficile Toxin A&B C. difficile Antigen C. difficile Interpret Coronavirus (PCR) COVID-19 (LINDEN) COVID-19 Clin Com Hepatitis A IgM Ab Hep Bs Antigen Hep Bs Antibody Hep B Core Total Ab Hepatitis C Ab (EIA) HIV 1&2 Ab/P24 Ag 4thGn Influenza Type A (PCR) Influenza Type B (PCR) RSV RNA Qual (PCR) SARS-CoV-2 IgG Ab Blood Type Antibody Screen 06/02/20 06/03/20 06/03/20 05:19 05:23 05:23 WBC 11.2 H RBC 3.78 L Hgb 13.7 L Hct 41.9 L MCV 110.8 H MCH 36.2 H MCHC 32.7 RDW 13.3 Plt Count 222 MPV 11.3 Immature Gran % (Auto) Cancelled Neut % (Auto) Cancelled Lymph % (Auto) Cancelled [place] % (Auto) Cancelled Eos % (Auto) Cancelled Baso % (Auto) Cancelled Lymph # (Auto) Cancelled [place] # (Auto) Cancelled Eos # (Auto) Cancelled Baso # (Auto) Cancelled Abs Immat Gran (auto) Cancelled Absolute Neuts (auto) Cancelled Absolute Nucleated RBC 0.090 H Nucleated RBC % (auto) 0.8 H Neutrophils % (Manual) 76 H Band Neutrophils % 0 L Lymphocytes % (Manual) 17 L Monocytes % (Manual) 7 Abs Neuts (Manual) 8.5 H Lymphocytes # (Manual) 1.9 Monocytes # (Manual) 0.8 Nucleated RBCs 1 H Platelet Estimate NORMAL Plt Morphology Comment NORMAL RBC Morphology NOTED Polychromasia 1+ Microcytosis 1+ Macrocytosis 1+ Tear Drop Cells 1+ [place] Cells 2+ Smear Tech's Comments Smear Path Review SEE NOTE ESR PT INR APTT PTT (Heparin Protocol) ABG pH ABG pCO2 ABG pO2 ABG HCO3 ABG O2 Saturation ABG Base Excess VBG pH VBG pCO2 VBG pO2 VBG HCO3 VBG O2 Saturation VBG Base Excess Oxygen Given Sodium 135 133 L Potassium 4.5 4.9 Chloride 95 L 98 Carbon Dioxide 21 L 17 L Anion Gap 24 H 23 H BUN 54 H 61 H Creatinine 3.99 H 3.87 H Estim Creat Clear Calc 30.7 31.6 Estimated GFR 15 16 POC Glucose Random Glucose 82 66 Fasting Glucose Osmolality Lactic Acid Lactic Acid Fup @ 2Hr Lactic Acid Fup @ 4Hr Calcium 8.1 L 7.6 L D Uric Acid Phosphorus Magnesium 2.1 Total Bilirubin 1.0 Direct Bilirubin AST 102 H ALT 37 Alkaline Phosphatase 99 Ammonia Lactate Dehydrogenase Total Creatine Kinase 70 C-Reactive Protein B-Natriuretic Peptide Total Protein 7.2 Albumin 3.4 L Lipase Vitamin B12 Vitamin B1 Procalcitonin Urine Color Urine Appearance Urine pH Ur Specific [place] Urine Protein Urine Glucose (UA) Urine Ketones Urine Blood Urine Nitrite Ur Leukocyte Esterase Urine RBC Urine WBC Ur Squamous Epith Cells Amorphous Sediment Urine Bacteria Hyaline Casts U Random Total Protein Ur Random Sodium Urine Creatinine Protein/Creatinin Ratio Bronchial Fluid WBC Bronchial Fluid RBC Bronchial Neutrophils Stool Leukocytes, Qual Random Vancomycin Digoxin Salicylates Urine Opiates Screen Ur Barbiturates Screen Ur Phencyclidine Scrn Ur Amphetamines Screen U Benzodiazepines Scrn Urine Cocaine Screen U Marijuana (THC) Screen Ethyl Alcohol T.pallidum Ab (EIA) C. difficile Toxin A&B C. difficile Antigen C. difficile Interpret Coronavirus (PCR) COVID-19 (LINDEN) COVID-19 Clin Com Hepatitis A IgM Ab Hep Bs Antigen Hep Bs Antibody Hep B Core Total Ab Hepatitis C Ab (EIA) HIV 1&2 Ab/P24 Ag 4thGn Influenza Type A (PCR) Influenza Type B (PCR) RSV RNA Qual (PCR) SARS-CoV-2 IgG Ab Blood Type Antibody Screen 06/03/20 06/03/20 06/03/20 05:23 05:23 09:50 WBC RBC Hgb Hct MCV MCH MCHC RDW Plt Count MPV Immature Gran % (Auto) Neut % (Auto) Lymph % (Auto) [place] % (Auto) Eos % (Auto) Baso % (Auto) Lymph # (Auto) [place] # (Auto) Eos # (Auto) Baso # (Auto) Abs Immat Gran (auto) Absolute Neuts (auto) Absolute Nucleated RBC Nucleated RBC % (auto) Neutrophils % (Manual) Band Neutrophils % Lymphocytes % (Manual) Monocytes % (Manual) Abs Neuts (Manual) Lymphocytes # (Manual) Monocytes # (Manual) Nucleated RBCs Platelet Estimate Plt Morphology Comment RBC Morphology Polychromasia Microcytosis Macrocytosis Tear Drop Cells Elaine Cells Smear Tech's Comments Smear Path Review ESR PT 14.9 H INR 1.3 H APTT PTT (Heparin Protocol) ABG pH 7.20 L* ABG pCO2 47 H ABG pO2 73 L ABG HCO3 18 L ABG O2 Saturation 90.6 ABG Base Excess -9.8 VBG pH VBG pCO2 VBG pO2 VBG HCO3 VBG O2 Saturation VBG Base Excess Oxygen Given ROOM AIR Sodium 134 L Potassium 5.0 Chloride 97 Carbon Dioxide 19 L Anion Gap 23 H BUN 62 H Creatinine 4.01 H* Estim Creat Clear Calc 30.5 Estimated GFR 15 POC Glucose Random Glucose 75 Fasting Glucose Osmolality Lactic Acid Lactic Acid Fup @ 2Hr Lactic Acid Fup @ 4Hr Calcium 7.8 L Uric Acid Phosphorus Magnesium Total Bilirubin 0.7 Direct Bilirubin AST 88 H ALT 37 Alkaline Phosphatase 94 Ammonia Lactate Dehydrogenase Total Creatine Kinase C-Reactive Protein B-Natriuretic Peptide Total Protein 6.8 Albumin 3.3 L Lipase Vitamin B12 Vitamin B1 Procalcitonin Urine Color Urine Appearance Urine pH Ur Specific [place] Urine Protein Urine Glucose (UA) Urine Ketones Urine Blood Urine Nitrite Ur Leukocyte Esterase Urine RBC Urine WBC Ur Squamous Epith Cells Amorphous Sediment Urine Bacteria Hyaline Casts U Random Total Protein Ur Random Sodium Urine Creatinine Protein/Creatinin Ratio Bronchial Fluid WBC Bronchial Fluid RBC Bronchial Neutrophils Stool Leukocytes, Qual Random Vancomycin Digoxin Salicylates Urine Opiates Screen Ur Barbiturates Screen Ur Phencyclidine Scrn Ur Amphetamines Screen U Benzodiazepines Scrn Urine Cocaine Screen U Marijuana (THC) Screen Ethyl Alcohol T.pallidum Ab (EIA) C. difficile Toxin A&B C. difficile Antigen C. difficile Interpret Coronavirus (PCR) COVID-19 (LINDEN) COVID-19 Clin Com Hepatitis A IgM Ab Hep Bs Antigen Hep Bs Antibody Hep B Core Total Ab Hepatitis C Ab (EIA) HIV 1&2 Ab/P24 Ag 4thGn Influenza Type A (PCR) Influenza Type B (PCR) RSV RNA Qual (PCR) SARS-CoV-2 IgG Ab Blood Type Antibody Screen 06/03/20 06/03/20 06/04/20 09:59 09:59 06:31 WBC 13.5 H RBC 3.60 L Hgb 13.0 L Hct 40.7 L MCV 113.1 H MCH 36.1 H MCHC 31.9 RDW 14.0 Plt Count 246 MPV 11.3 Immature Gran % (Auto) 0.7 H Neut % (Auto) 55.4 Lymph % (Auto) 20.1 [place]acer % (Auto) 23.3 H Eos % (Auto) 0.1 Baso % (Auto) 0.4 Lymph # (Auto) 2.7 Placer # (Auto) 3.1 H Eos # (Auto) 0.0 Baso # (Auto) 0.1 Abs Immat Gran (auto) 0.09 H Absolute Neuts (auto) 7.5 Absolute Nucleated RBC 0.140 H Nucleated RBC % (auto) 1.0 H Neutrophils % (Manual) Band Neutrophils % Lymphocytes % (Manual) Monocytes % (Manual) Abs Neuts (Manual) Lymphocytes # (Manual) Monocytes # (Manual) Nucleated RBCs Platelet Estimate Plt Morphology Comment RBC Morphology Polychromasia Microcytosis Macrocytosis Tear Drop Cells [place] Cells Smear Tech's Comments VERIFIED Smear Path Review ESR PT INR APTT PTT (Heparin Protocol) ABG pH ABG pCO2 ABG pO2 ABG HCO3 ABG O2 Saturation ABG Base Excess VBG pH VBG pCO2 VBG pO2 VBG HCO3 VBG O2 Saturation VBG Base Excess Oxygen Given Sodium Potassium Chloride Carbon Dioxide Anion Gap BUN Creatinine Estim Creat Clear Calc Estimated GFR POC Glucose Random Glucose Fasting Glucose Osmolality 300 Lactic Acid Lactic Acid Fup @ 2Hr Lactic Acid Fup @ 4Hr Calcium Uric Acid Phosphorus Magnesium Total Bilirubin Direct Bilirubin AST ALT Alkaline Phosphatase Ammonia Lactate Dehydrogenase Total Creatine Kinase C-Reactive Protein B-Natriuretic Peptide Total Protein Albumin Lipase Vitamin B12 Vitamin B1 Procalcitonin Urine Color Urine Appearance Urine pH Ur Specific [place] Urine Protein Urine Glucose (UA) Urine Ketones Urine Blood Urine Nitrite Ur Leukocyte Esterase Urine RBC Urine WBC Ur Squamous Epith Cells Amorphous Sediment Urine Bacteria Hyaline Casts U Random Total Protein Ur Random Sodium Urine Creatinine Protein/Creatinin Ratio Bronchial Fluid WBC Bronchial Fluid RBC Bronchial Neutrophils Stool Leukocytes, Qual Random Vancomycin Digoxin Salicylates < 5.0 L Urine Opiates Screen Ur Barbiturates Screen Ur Phencyclidine Scrn Ur Amphetamines Screen U Benzodiazepines Scrn Urine Cocaine Screen U Marijuana (THC) Screen Ethyl Alcohol T.pallidum Ab (EIA) C. difficile Toxin A&B C. difficile Antigen C. difficile Interpret Coronavirus (PCR) COVID-19 (LINDEN) COVID-19 Clin Com Hepatitis A IgM Ab Hep Bs Antigen Hep Bs Antibody Hep B Core Total Ab Hepatitis C Ab (EIA) HIV 1&2 Ab/P24 Ag 4thGn Influenza Type A (PCR) Influenza Type B (PCR) RSV RNA Qual (PCR) SARS-CoV-2 IgG Ab Blood Type Antibody Screen 06/04/20 06/04/20 06/04/20 06:31 06:31 06:31 WBC RBC Hgb Hct MCV MCH MCHC RDW Plt Count MPV Immature Gran % (Auto) Neut % (Auto) Lymph % (Auto) [place] % (Auto) Eos % (Auto) Baso % (Auto) Lymph # (Auto) [place] # (Auto) Eos # (Auto) Baso # (Auto) Abs Immat Gran (auto) Absolute Neuts (auto) Absolute Nucleated RBC Nucleated RBC % (auto) Neutrophils % (Manual) Band Neutrophils % Lymphocytes % (Manual) Monocytes % (Manual) Abs Neuts (Manual) Lymphocytes # (Manual) Monocytes # (Manual) Nucleated RBCs Platelet Estimate Plt Morphology Comment RBC Morphology Polychromasia Microcytosis Macrocytosis Tear Drop Cells [place] Cells Smear Tech's Comments Smear Path Review ESR PT INR APTT PTT (Heparin Protocol) ABG pH ABG pCO2 ABG pO2 ABG HCO3 ABG O2 Saturation ABG Base Excess VBG pH VBG pCO2 VBG pO2 VBG HCO3 VBG O2 Saturation VBG Base Excess Oxygen Given Sodium 135 Potassium 4.8 Chloride 101 Carbon Dioxide 16 L Anion Gap 23 H BUN 66 H Creatinine 4.26 H* Estim Creat Clear Calc 28.7 Estimated GFR 14 POC Glucose Random Glucose 73 Fasting Glucose Osmolality Lactic Acid Lactic Acid Fup @ 2Hr Lactic Acid Fup @ 4Hr Calcium 7.6 L Uric Acid Phosphorus Magnesium 2.3 Total Bilirubin Direct Bilirubin AST ALT Alkaline Phosphatase Ammonia Lactate Dehydrogenase Total Creatine Kinase C-Reactive Protein 7.36 H B-Natriuretic Peptide Total Protein Albumin Lipase Vitamin B12 Vitamin B1 Procalcitonin 0.35 Urine Color Urine Appearance Urine pH Ur Specific [place] Urine Protein Urine Glucose (UA) Urine Ketones Urine Blood Urine Nitrite Ur Leukocyte Esterase Urine RBC Urine WBC Ur Squamous Epith Cells Amorphous Sediment Urine Bacteria Hyaline Casts U Random Total Protein Ur Random Sodium Urine Creatinine Protein/Creatinin Ratio Bronchial Fluid WBC Bronchial Fluid RBC Bronchial Neutrophils Stool Leukocytes, Qual Random Vancomycin Digoxin Salicylates Urine Opiates Screen Ur Barbiturates Screen Ur Phencyclidine Scrn Ur Amphetamines Screen U Benzodiazepines Scrn Urine Cocaine Screen U Marijuana (THC) Screen Ethyl Alcohol T.pallidum Ab (EIA) C. difficile Toxin A&B C. difficile Antigen C. difficile Interpret Coronavirus (PCR) COVID-19 ([facility]INDEN) COVID-19 Clin Com Hepatitis A IgM Ab Hep Bs Antigen Hep Bs Antibody Hep B Core Total Ab Hepatitis C Ab (EIA) HIV 1&2 Ab/P24 Ag 4thGn Influenza Type A (PCR) Influenza Type B (PCR) RSV RNA Qual (PCR) SARS-CoV-2 IgG Ab Blood Type Antibody Screen 06/04/20 06/04/20 06/04/20 10:39 11:35 11:35 WBC RBC Hgb Hct MCV MCH MCHC RDW Plt Count MPV Immature Gran % (Auto) Neut % (Auto) Lymph % (Auto) [place] % (Auto) Eos % (Auto) Baso % (Auto) Lymph # (Auto) [place] # (Auto) Eos # (Auto) Baso # (Auto) Abs Immat Gran (auto) Absolute Neuts (auto) Absolute Nucleated RBC Nucleated RBC % (auto) Neutrophils % (Manual) Band Neutrophils % Lymphocytes % (Manual) Monocytes % (Manual) Abs Neuts (Manual) Lymphocytes # (Manual) Monocytes # (Manual) Nucleated RBCs Platelet Estimate Plt Morphology Comment RBC Morphology Polychromasia Microcytosis Macrocytosis Tear Drop Cells Elaine Cells Smear Tech's Comments Smear Path Review ESR PT INR APTT PTT (Heparin Protocol) ABG pH 7.19 L* ABG pCO2 48 H ABG pO2 35 L* ABG HCO3 18 L ABG O2 Saturation 58.5 ABG Base Excess -10.6 VBG pH VBG pCO2 VBG pO2 VBG HCO3 VBG O2 Saturation VBG Base Excess Oxygen Given ROOM AIR Sodium Potassium Chloride Carbon Dioxide Anion Gap BUN Creatinine Estim Creat Clear Calc Estimated GFR POC Glucose Random Glucose Fasting Glucose Osmolality Lactic Acid Lactic Acid Fup @ 2Hr Lactic Acid Fup @ 4Hr Calcium Uric Acid Phosphorus Magnesium Total Bilirubin Direct Bilirubin AST ALT Alkaline Phosphatase Ammonia Lactate Dehydrogenase Total Creatine Kinase C-Reactive Protein B-Natriuretic Peptide Total Protein Albumin Lipase Vitamin B12 Vitamin B1 Procalcitonin Urine Color DARK YELLOW Urine Appearance HAZY Urine pH 5.5 Ur Specific [place] >= 1.030 H Urine Protein 1+ H Urine Glucose (UA) NEG Urine Ketones 5 Urine Blood 3+ H Urine Nitrite NEG Ur Leukocyte Esterase NEG Urine RBC 5-9 H Urine WBC 0 Ur Squamous Epith Cells TRACE Amorphous Sediment 2+ Urine Bacteria TRACE Hyaline Casts 0-2 U Random Total Protein 99 H Ur Random Sodium Urine Creatinine 304.53 Protein/Creatinin Ratio 0.33 H Bronchial Fluid WBC Bronchial Fluid RBC Bronchial Neutrophils Stool Leukocytes, Qual Random Vancomycin Digoxin Salicylates Urine Opiates Screen Ur Barbiturates Screen Ur Phencyclidine Scrn Ur Amphetamines Screen U Benzodiazepines Scrn Urine Cocaine Screen U Marijuana (THC) Screen Ethyl Alcohol T.pallidum Ab (EIA) C. difficile Toxin A&B C. difficile Antigen C. difficile Interpret Coronavirus (PCR) COVID-19 ([facility]INDEN) COVID-19 Clin Com Hepatitis A IgM Ab Hep Bs Antigen Hep Bs Antibody Hep B Core Total Ab Hepatitis C Ab (EIA) HIV 1&2 Ab/P24 Ag 4thGn Influenza Type A (PCR) Influenza Type B (PCR) RSV RNA Qual (PCR) SARS-CoV-2 IgG Ab Blood Type Antibody Screen 06/04/20 06/04/20 06/04/20 23:08 23:08 23:08 WBC 10.6 RBC 3.56 L Hgb 13.0 L Hct 39.8 L MCV 111.8 H MCH 36.5 H MCHC 32.7 RDW 14.0 Plt Count 272 MPV 11.0 Immature Gran % (Auto) 1.5 H Neut % (Auto) 77.8 H Lymph % (Auto) 12.3 L [place] % (Auto) 8.1 Eos % (Auto) 0.0 Baso % (Auto) 0.3 Lymph # (Auto) 1.3 [place] # (Auto) 0.9 Eos # (Auto) 0.0 Baso # (Auto) 0.0 Abs Immat Gran (auto) 0.16 H Absolute Neuts (auto) 8.2 Absolute Nucleated RBC 0.300 H Nucleated RBC % (auto) 2.8 H Neutrophils % (Manual) Band Neutrophils % Lymphocytes % (Manual) Monocytes % (Manual) Abs Neuts (Manual) Lymphocytes # (Manual) Monocytes # (Manual) Nucleated RBCs Platelet Estimate Plt Morphology Comment RBC Morphology Polychromasia Microcytosis Macrocytosis Tear Drop Cells [place] Cells Smear Tech's Comments Smear Path Review ESR PT INR APTT PTT (Heparin Protocol) ABG pH ABG pCO2 ABG pO2 ABG HCO3 ABG O2 Saturation ABG Base Excess VBG pH 7.09 L* VBG pCO2 54 VBG pO2 52 VBG HCO3 16 VBG O2 Saturation 73.3 VBG Base Excess -14.6 Oxygen Given Sodium 135 Potassium 4.7 Chloride 101 Carbon Dioxide 14 L Anion Gap 25 H BUN 74 H Creatinine 4.33 H* Estim Creat Clear Calc 28.3 Estimated GFR 14 POC Glucose Random Glucose 119 H D Fasting Glucose Osmolality Lactic Acid Lactic Acid Fup @ 2Hr Lactic Acid Fup @ 4Hr Calcium 7.8 L Uric Acid Phosphorus 8.4 H Magnesium Total Bilirubin 0.9 Direct Bilirubin AST 47 H D ALT 27 Alkaline Phosphatase 91 Ammonia Lactate Dehydrogenase Total Creatine Kinase C-Reactive Protein B-Natriuretic Peptide Total Protein 6.7 Albumin 3.2 L Lipase Vitamin B12 Vitamin B1 Procalcitonin Urine Color Urine Appearance Urine pH Ur Specific [place] Urine Protein Urine Glucose (UA) Urine Ketones Urine Blood Urine Nitrite Ur Leukocyte Esterase Urine RBC Urine WBC Ur Squamous Epith Cells Amorphous Sediment Urine Bacteria Hyaline Casts U Random Total Protein Ur Random Sodium Urine Creatinine Protein/Creatinin Ratio Bronchial Fluid WBC Bronchial Fluid RBC Bronchial Neutrophils Stool Leukocytes, Qual Random Vancomycin Digoxin Salicylates Urine Opiates Screen Ur Barbiturates Screen Ur Phencyclidine Scrn Ur Amphetamines Screen U Benzodiazepines Scrn Urine Cocaine Screen U Marijuana (THC) Screen Ethyl Alcohol T.pallidum Ab (EIA) C. difficile Toxin A&B C. difficile Antigen C. difficile Interpret Coronavirus (PCR) COVID-19 (LINDEN) COVID-19 Clin Com Hepatitis A IgM Ab Hep Bs Antigen Hep Bs Antibody Hep B Core Total Ab Hepatitis C Ab (EIA) HIV 1&2 Ab/P24 Ag 4thGn Influenza Type A (PCR) Influenza Type B (PCR) RSV RNA Qual (PCR) SARS-CoV-2 IgG Ab Blood Type Antibody Screen 06/04/20 06/05/20 06/05/20 23:08 00:15 00:30 WBC RBC Hgb Hct MCV MCH MCHC RDW Plt Count MPV Immature Gran % (Auto) Neut % (Auto) Lymph % (Auto) [place] % (Auto) Eos % (Auto) Baso % (Auto) Lymph # (Auto) [place] # (Auto) Eos # (Auto) Baso # (Auto) Abs Immat Gran (auto) Absolute Neuts (auto) Absolute Nucleated RBC Nucleated RBC % (auto) Neutrophils % (Manual) Band Neutrophils % Lymphocytes % (Manual) Monocytes % (Manual) Abs Neuts (Manual) Lymphocytes # (Manual) Monocytes # (Manual) Nucleated RBCs Platelet Estimate Plt Morphology Comment RBC Morphology Polychromasia Microcytosis Macrocytosis Tear Drop Cells [place] Cells Smear Tech's Comments Smear Path Review ESR PT INR APTT PTT (Heparin Protocol) ABG pH ABG pCO2 ABG pO2 ABG HCO3 ABG O2 Saturation ABG Base Excess VBG pH VBG pCO2 VBG pO2 VBG HCO3 VBG O2 Saturation VBG Base Excess Oxygen Given Sodium Potassium Chloride Carbon Dioxide Anion Gap BUN Creatinine Estim Creat Clear Calc Estimated GFR POC Glucose Random Glucose Fasting Glucose Osmolality Lactic Acid Lactic Acid Fup @ 2Hr Lactic Acid Fup @ 4Hr Calcium Uric Acid Phosphorus Magnesium Total Bilirubin Direct Bilirubin AST ALT Alkaline Phosphatase Ammonia Lactate Dehydrogenase Total Creatine Kinase C-Reactive Protein B-Natriuretic Peptide 4883 H Total Protein Albumin Lipase Vitamin B12 Vitamin B1 Procalcitonin Urine Color Urine Appearance Urine pH Ur Specific [place] Urine Protein Urine Glucose (UA) Urine Ketones Urine Blood Urine Nitrite Ur Leukocyte Esterase Urine RBC Urine WBC Ur Squamous Epith Cells Amorphous Sediment Urine Bacteria Hyaline Casts U Random Total Protein Ur Random Sodium Urine Creatinine Protein/Creatinin Ratio Bronchial Fluid WBC Bronchial Fluid RBC Bronchial Neutrophils Stool Leukocytes, Qual Random Vancomycin Digoxin Salicylates Urine Opiates Screen Not Detected Ur Barbiturates Screen POSITIVE H Ur Phencyclidine Scrn Not Detected Ur Amphetamines Screen Not Detected U Benzodiazepines Scrn Not Detected Urine Cocaine Screen Not Detected U Marijuana (THC) Screen Not Detected Ethyl Alcohol T.pallidum Ab (EIA) C. difficile Toxin A&B C. difficile Antigen C. difficile Interpret Coronavirus (PCR) COVID-19 (LINDEN) COVID-19 Clin Com Hepatitis A IgM Ab Hep Bs Antigen Hep Bs Antibody Hep B Core Total Ab Hepatitis C Ab (EIA) HIV 1&2 Ab/P24 Ag 4thGn Influenza Type A (PCR) Influenza Type B (PCR) RSV RNA Qual (PCR) SARS-CoV-2 IgG Ab Negative Blood Type Antibody Screen 06/05/20 06/05/20 06/05/20 01:33 02:11 03:31 WBC RBC Hgb Hct MCV MCH MCHC RDW Plt Count MPV Immature Gran % (Auto) Neut % (Auto) Lymph % (Auto) [place] % (Auto) Eos % (Auto) Baso % (Auto) Lymph # (Auto) [place] # (Auto) Eos # (Auto) Baso # (Auto) Abs Immat Gran (auto) Absolute Neuts (auto) Absolute Nucleated RBC Nucleated RBC % (auto) Neutrophils % (Manual) Band Neutrophils % Lymphocytes % (Manual) Monocytes % (Manual) Abs Neuts (Manual) Lymphocytes # (Manual) Monocytes # (Manual) Nucleated RBCs Platelet Estimate Plt Morphology Comment RBC Morphology Polychromasia Microcytosis Macrocytosis Tear Drop Cells [place] Cells Smear Tech's Comments Smear Path Review ESR PT INR APTT PTT (Heparin Protocol) ABG pH ABG pCO2 ABG pO2 ABG HCO3 ABG O2 Saturation ABG Base Excess VBG pH 7.15 L* VBG pCO2 41 VBG pO2 61 VBG HCO3 14 VBG O2 Saturation 82.7 VBG Base Excess -14.4 Oxygen Given Sodium Potassium Chloride Carbon Dioxide Anion Gap BUN Creatinine Estim Creat Clear Calc Estimated GFR POC Glucose Random Glucose Fasting Glucose Osmolality Lactic Acid Lactic Acid Fup @ 2Hr Lactic Acid Fup @ 4Hr Calcium Uric Acid Phosphorus Magnesium 2.5 Total Bilirubin Direct Bilirubin AST ALT Alkaline Phosphatase Ammonia Lactate Dehydrogenase Total Creatine Kinase C-Reactive Protein B-Natriuretic Peptide Total Protein Albumin Lipase Vitamin B12 Vitamin B1 Procalcitonin Urine Color Urine Appearance Urine pH Ur Specific [place] Urine Protein Urine Glucose (UA) Urine Ketones Urine Blood Urine Nitrite Ur Leukocyte Esterase Urine RBC Urine WBC Ur Squamous Epith Cells Amorphous Sediment Urine Bacteria Hyaline Casts U Random Total Protein Ur Random Sodium Urine Creatinine Protein/Creatinin Ratio Bronchial Fluid WBC Bronchial Fluid RBC Bronchial Neutrophils Stool Leukocytes, Qual Random Vancomycin Digoxin Salicylates Urine Opiates Screen Ur Barbiturates Screen Ur Phencyclidine Scrn Ur Amphetamines Screen U Benzodiazepines Scrn Urine Cocaine Screen U Marijuana (THC) Screen Ethyl Alcohol T.pallidum Ab (EIA) C. difficile Toxin A&B C. difficile Antigen C. difficile Interpret Coronavirus (PCR) TNP COVID-19 (LINDEN) COVID-19 Clin Com Hepatitis A IgM Ab Hep Bs Antigen Hep Bs Antibody Hep B Core Total Ab Hepatitis C Ab (EIA) HIV 1&2 Ab/P24 Ag 4thGn Influenza Type A (PCR) TNP Influenza Type B (PCR) TNP RSV RNA Qual (PCR) TNP SARS-CoV-2 IgG Ab Blood Type Antibody Screen 06/05/20 06/05/20 06/05/20 03:36 04:53 04:53 WBC RBC Hgb Hct MCV MCH MCHC RDW Plt Count MPV Immature Gran % (Auto) Neut % (Auto) Lymph % (Auto) [place] % (Auto) Eos % (Auto) Baso % (Auto) Lymph # (Auto) [place] # (Auto) Eos # (Auto) Baso # (Auto) Abs Immat Gran (auto) Absolute Neuts (auto) Absolute Nucleated RBC Nucleated RBC % (auto) Neutrophils % (Manual) Band Neutrophils % Lymphocytes % (Manual) Monocytes % (Manual) Abs Neuts (Manual) Lymphocytes # (Manual) Monocytes # (Manual) Nucleated RBCs Platelet Estimate Plt Morphology Comment RBC Morphology Polychromasia Microcytosis Macrocytosis Tear Drop Cells [place] Cells Smear Tech's Comments Smear Path Review ESR PT INR APTT PTT (Heparin Protocol) ABG pH ABG pCO2 ABG pO2 ABG HCO3 ABG O2 Saturation ABG Base Excess VBG pH VBG pCO2 VBG pO2 VBG HCO3 VBG O2 Saturation VBG Base Excess Oxygen Given Sodium 136 Potassium 4.8 Chloride 102 Carbon Dioxide 13 L Anion Gap 26 H BUN 73 H Creatinine 4.41 H* Estim Creat Clear Calc 27.7 Estimated GFR 14 POC Glucose Random Glucose 124 H Fasting Glucose Osmolality Lactic Acid 3.2 H* Lactic Acid Fup @ 2Hr Lactic Acid Fup @ 4Hr Calcium 7.8 L Uric Acid Phosphorus 7.5 H Magnesium 2.4 Total Bilirubin Direct Bilirubin AST ALT Alkaline Phosphatase Ammonia Lactate Dehydrogenase Total Creatine Kinase C-Reactive Protein B-Natriuretic Peptide Total Protein Albumin Lipase Vitamin B12 Vitamin B1 Procalcitonin Urine Color Urine Appearance Urine pH Ur Specific [place] Urine Protein Urine Glucose (UA) Urine Ketones Urine Blood Urine Nitrite Ur Leukocyte Esterase Urine RBC Urine WBC Ur Squamous Epith Cells Amorphous Sediment Urine Bacteria Hyaline Casts U Random Total Protein Ur Random Sodium Urine Creatinine Protein/Creatinin Ratio Bronchial Fluid WBC Bronchial Fluid RBC Bronchial Neutrophils Stool Leukocytes, Qual Random Vancomycin Digoxin Salicylates Urine Opiates Screen Ur Barbiturates Screen Ur Phencyclidine Scrn Ur Amphetamines Screen U Benzodiazepines Scrn Urine Cocaine Screen U Marijuana (THC) Screen Ethyl Alcohol T.pallidum Ab (EIA) C. difficile Toxin A&B C. difficile Antigen C. difficile Interpret Coronavirus (PCR) COVID-19 (LINDEN) COVID-19 Clin Com Hepatitis A IgM Ab Hep Bs Antigen Negative Hep Bs Antibody NONREACTIVE Hep B Core Total Ab Nonreactive Hepatitis C Ab (EIA) Nonreactive HIV 1&2 Ab/P24 Ag 4thGn Nonreactive Influenza Type A (PCR) Influenza Type B (PCR) RSV RNA Qual (PCR) SARS-CoV-2 IgG Ab Blood Type Antibody Screen 06/05/20 06/05/20 06/05/20 04:53 04:53 04:53 WBC 11.9 H RBC 3.63 L Hgb 13.1 L Hct 40.2 L MCV 110.7 H MCH 36.1 H MCHC 32.6 RDW 14.1 Plt Count 249 MPV 11.2 Immature Gran % (Auto) 0.8 H Neut % (Auto) 77.7 H Lymph % (Auto) 7.1 L [place] % (Auto) 14.2 H Eos % (Auto) 0.0 Baso % (Auto) 0.2 Lymph # (Auto) 0.8 L [place] # (Auto) 1.7 H Eos # (Auto) 0.0 Baso # (Auto) 0.0 Abs Immat Gran (auto) 0.10 H Absolute Neuts (auto) 9.2 H Absolute Nucleated RBC 0.130 H Nucleated RBC % (auto) 1.1 H Neutrophils % (Manual) Band Neutrophils % Lymphocytes % (Manual) Monocytes % (Manual) Abs Neuts (Manual) Lymphocytes # (Manual) Monocytes # (Manual) Nucleated RBCs Platelet Estimate Plt Morphology Comment RBC Morphology Polychromasia Microcytosis Macrocytosis Tear Drop Cells [place] Cells Smear Tech's Comments VERIFIED Smear Path Review ESR PT INR APTT PTT (Heparin Protocol) ABG pH ABG pCO2 ABG pO2 ABG HCO3 ABG O2 Saturation ABG Base Excess VBG pH VBG pCO2 VBG pO2 VBG HCO3 VBG O2 Saturation VBG Base Excess Oxygen Given Sodium Potassium Chloride Carbon Dioxide Anion Gap BUN Creatinine Estim Creat Clear Calc Estimated GFR POC Glucose Random Glucose Fasting Glucose Osmolality Lactic Acid Lactic Acid Fup @ 2Hr Lactic Acid Fup @ 4Hr Calcium Uric Acid Phosphorus Magnesium Total Bilirubin Direct Bilirubin AST ALT Alkaline Phosphatase Ammonia Lactate Dehydrogenase Total Creatine Kinase C-Reactive Protein B-Natriuretic Peptide Total Protein Albumin Lipase Vitamin B12 Vitamin B1 >1200 H Procalcitonin Urine Color Urine Appearance Urine pH Ur Specific [place] Urine Protein Urine Glucose (UA) Urine Ketones Urine Blood Urine Nitrite Ur Leukocyte Esterase Urine RBC Urine WBC Ur Squamous Epith Cells Amorphous Sediment Urine Bacteria Hyaline Casts U Random Total Protein Ur Random Sodium Urine Creatinine Protein/Creatinin Ratio Bronchial Fluid WBC Bronchial Fluid RBC Bronchial Neutrophils Stool Leukocytes, Qual Random Vancomycin Digoxin Salicylates Urine Opiates Screen Ur Barbiturates Screen Ur Phencyclidine Scrn Ur Amphetamines Screen U Benzodiazepines Scrn Urine Cocaine Screen U Marijuana (THC) Screen Ethyl Alcohol T.pallidum Ab (EIA) Nonreactive C. difficile Toxin A&B C. difficile Antigen C. difficile Interpret Coronavirus (PCR) COVID-19 (LINDEN) COVID-19 Clin Com Hepatitis A IgM Ab Hep Bs Antigen Hep Bs Antibody Hep B Core Total Ab Hepatitis C Ab (EIA) HIV 1&2 Ab/P24 Ag 4thGn Influenza Type A (PCR) Influenza Type B (PCR) RSV RNA Qual (PCR) SARS-CoV-2 IgG Ab Blood Type Antibody Screen 06/05/20 06/05/20 06/05/20 04:53 04:53 04:53 WBC RBC Hgb Hct MCV MCH MCHC RDW Plt Count MPV Immature Gran % (Auto) Neut % (Auto) Lymph % (Auto) [place] % (Auto) Eos % (Auto) Baso % (Auto) Lymph # (Auto) [place] # (Auto) Eos # (Auto) Baso # (Auto) Abs Immat Gran (auto) Absolute Neuts (auto) Absolute Nucleated RBC Nucleated RBC % (auto) Neutrophils % (Manual) Band Neutrophils % Lymphocytes % (Manual) Monocytes % (Manual) Abs Neuts (Manual) Lymphocytes # (Manual) Monocytes # (Manual) Nucleated RBCs Platelet Estimate Plt Morphology Comment RBC Morphology Polychromasia Microcytosis Macrocytosis Tear Drop Cells [place] Cells Smear Tech's Comments Smear Path Review ESR PT Cancelled INR Cancelled APTT Cancelled PTT (Heparin Protocol) ABG pH ABG pCO2 ABG pO2 ABG HCO3 ABG O2 Saturation ABG Base Excess VBG pH VBG pCO2 VBG pO2 VBG HCO3 VBG O2 Saturation VBG Base Excess Oxygen Given Sodium Cancelled Potassium Cancelled Chloride Cancelled Carbon Dioxide Cancelled Anion Gap Cancelled BUN Cancelled Creatinine Cancelled Estim Creat Clear Calc Cancelled Estimated GFR Cancelled POC Glucose Random Glucose Cancelled Fasting Glucose Osmolality Lactic Acid Lactic Acid Fup @ 2Hr Lactic Acid Fup @ 4Hr Calcium Cancelled Uric Acid Phosphorus Cancelled Magnesium Cancelled Total Bilirubin Direct Bilirubin AST ALT Alkaline Phosphatase Ammonia Lactate Dehydrogenase Total Creatine Kinase C-Reactive Protein B-Natriuretic Peptide 75246 H Total Protein Albumin Lipase Vitamin B12 Vitamin B1 Procalcitonin Urine Color Urine Appearance Urine pH Ur Specific [place] Urine Protein Urine Glucose (UA) Urine Ketones Urine Blood Urine Nitrite Ur Leukocyte Esterase Urine RBC Urine WBC Ur Squamous Epith Cells Amorphous Sediment Urine Bacteria Hyaline Casts U Random Total Protein Ur Random Sodium Urine Creatinine Protein/Creatinin Ratio Bronchial Fluid WBC Bronchial Fluid RBC Bronchial Neutrophils Stool Leukocytes, Qual Random Vancomycin Digoxin Salicylates Urine Opiates Screen Ur Barbiturates Screen Ur Phencyclidine Scrn Ur Amphetamines Screen U Benzodiazepines Scrn Urine Cocaine Screen U Marijuana (THC) Screen Ethyl Alcohol T.pallidum Ab (EIA) C. difficile Toxin A&B C. difficile Antigen C. difficile Interpret Coronavirus (PCR) COVID-19 (LINDEN) COVID-19 Clin Com Hepatitis A IgM Ab Hep Bs Antigen Hep Bs Antibody Hep B Core Total Ab Hepatitis C Ab (EIA) HIV 1&2 Ab/P24 Ag 4thGn Influenza Type A (PCR) Influenza Type B (PCR) RSV RNA Qual (PCR) SARS-CoV-2 IgG Ab Blood Type Antibody Screen 06/05/20 06/05/20 06/05/20 04:53 05:58 08:51 WBC RBC Hgb Hct MCV MCH MCHC RDW Plt Count MPV Immature Gran % (Auto) Neut % (Auto) Lymph % (Auto) [place] % (Auto) Eos % (Auto) Baso % (Auto) Lymph # (Auto) [place] # (Auto) Eos # (Auto) Baso # (Auto) Abs Immat Gran (auto) Absolute Neuts (auto) Absolute Nucleated RBC Nucleated RBC % (auto) Neutrophils % (Manual) Band Neutrophils % Lymphocytes % (Manual) Monocytes % (Manual) Abs Neuts (Manual) Lymphocytes # (Manual) Monocytes # (Manual) Nucleated RBCs Platelet Estimate Plt Morphology Comment RBC Morphology Polychromasia Microcytosis Macrocytosis Tear Drop Cells [place] Cells Smear Tech's Comments Smear Path Review ESR PT INR APTT PTT (Heparin Protocol) ABG pH ABG pCO2 ABG pO2 ABG HCO3 ABG O2 Saturation ABG Base Excess VBG pH 7.25 L VBG pCO2 33 VBG pO2 57 VBG HCO3 14 VBG O2 Saturation 84.3 VBG Base Excess -11.8 Oxygen Given Sodium Potassium Chloride Carbon Dioxide Anion Gap BUN Creatinine Estim Creat Clear Calc Estimated GFR POC Glucose Random Glucose Fasting Glucose Osmolality Lactic Acid Lactic Acid Fup @ 2Hr 3.3 H* Lactic Acid Fup @ 4Hr 1.9 Calcium Uric Acid Phosphorus Magnesium Total Bilirubin Direct Bilirubin AST ALT Alkaline Phosphatase Ammonia Lactate Dehydrogenase Total Creatine Kinase C-Reactive Protein B-Natriuretic Peptide Total Protein Albumin Lipase Vitamin B12 Vitamin B1 Procalcitonin Urine Color Urine Appearance Urine pH Ur Specific [place] Urine Protein Urine Glucose (UA) Urine Ketones Urine Blood Urine Nitrite Ur Leukocyte Esterase Urine RBC Urine WBC Ur Squamous Epith Cells Amorphous Sediment Urine Bacteria Hyaline Casts U Random Total Protein Ur Random Sodium Urine Creatinine Protein/Creatinin Ratio Bronchial Fluid WBC Bronchial Fluid RBC Bronchial Neutrophils Stool Leukocytes, Qual Random Vancomycin Digoxin Salicylates Urine Opiates Screen Ur Barbiturates Screen Ur Phencyclidine Scrn Ur Amphetamines Screen U Benzodiazepines Scrn Urine Cocaine Screen U Marijuana (THC) Screen Ethyl Alcohol T.pallidum Ab (EIA) C. difficile Toxin A&B C. difficile Antigen C. difficile Interpret Coronavirus (PCR) COVID-19 (LINDEN) COVID-19 Clin Com Hepatitis A IgM Ab Hep Bs Antigen Hep Bs Antibody Hep B Core Total Ab Hepatitis C Ab (EIA) HIV 1&2 Ab/P24 Ag 4thGn Influenza Type A (PCR) Influenza Type B (PCR) RSV RNA Qual (PCR) SARS-CoV-2 IgG Ab Blood Type Antibody Screen 06/05/20 06/05/20 06/05/20 10:12 12:17 Unknown WBC RBC Hgb Hct MCV MCH MCHC RDW Plt Count MPV Immature Gran % (Auto) Neut % (Auto) Lymph % (Auto) [place] % (Auto) Eos % (Auto) Baso % (Auto) Lymph # (Auto) [place] # (Auto) Eos # (Auto) Baso # (Auto) Abs Immat Gran (auto) Absolute Neuts (auto) Absolute Nucleated RBC Nucleated RBC % (auto) Neutrophils % (Manual) Band Neutrophils % Lymphocytes % (Manual) Monocytes % (Manual) Abs Neuts (Manual) Lymphocytes # (Manual) Monocytes # (Manual) Nucleated RBCs Platelet Estimate Plt Morphology Comment RBC Morphology Polychromasia Microcytosis Macrocytosis Tear Drop Cells [place] Cells Smear Tech's Comments Smear Path Review ESR PT INR APTT PTT (Heparin Protocol) ABG pH ABG pCO2 ABG pO2 ABG HCO3 ABG O2 Saturation ABG Base Excess VBG pH VBG pCO2 VBG pO2 VBG HCO3 VBG O2 Saturation VBG Base Excess Oxygen Given Sodium Potassium Chloride Carbon Dioxide Anion Gap BUN Creatinine Estim Creat Clear Calc Estimated GFR POC Glucose Random Glucose Fasting Glucose Osmolality Lactic Acid Lactic Acid Fup @ 2Hr Lactic Acid Fup @ 4Hr Calcium Uric Acid Phosphorus Magnesium Total Bilirubin Direct Bilirubin AST ALT Alkaline Phosphatase Ammonia Lactate Dehydrogenase Total Creatine Kinase C-Reactive Protein B-Natriuretic Peptide Total Protein Albumin Lipase Vitamin B12 Vitamin B1 Procalcitonin Urine Color YELLOW Urine Appearance HAZY Urine pH 5.5 Ur Specific [place] >= 1.030 H Urine Protein 1+ H Urine Glucose (UA) NEG Urine Ketones NEG Urine Blood 3+ H Urine Nitrite NEG Ur Leukocyte Esterase 1+ H Urine RBC 76-150 H Urine WBC 50-75 H Ur Squamous Epith Cells TRACE Amorphous Sediment Urine Bacteria NONE Hyaline Casts 1-4 U Random Total Protein 105 H Ur Random Sodium 34.0 Urine Creatinine 181.72 Protein/Creatinin Ratio Bronchial Fluid WBC Bronchial Fluid RBC Bronchial Neutrophils Stool Leukocytes, Qual Random Vancomycin Digoxin Salicylates Urine Opiates Screen Ur Barbiturates Screen Ur Phencyclidine Scrn Ur Amphetamines Screen U Benzodiazepines Scrn Urine Cocaine Screen U Marijuana (THC) Screen Ethyl Alcohol T.pallidum Ab (EIA) C. difficile Toxin A&B C. difficile Antigen C. difficile Interpret Coronavirus (PCR) NEGATIVE COVID-19 (LINDEN) COVID-19 Clin Com Hepatitis A IgM Ab Hep Bs Antigen Hep Bs Antibody Hep B Core Total Ab Hepatitis C Ab (EIA) HIV 1&2 Ab/P24 Ag 4thGn Influenza Type A (PCR) NEGATIVE Influenza Type B (PCR) NEGATIVE RSV RNA Qual (PCR) NEGATIVE SARS-CoV-2 IgG Ab Blood Type Antibody Screen 06/06/20 06/06/20 06/06/20 00:05 00:05 01:50 WBC RBC Hgb Hct MCV MCH MCHC RDW Plt Count MPV Immature Gran % (Auto) Neut % (Auto) Lymph % (Auto) [place] % (Auto) Eos % (Auto) Baso % (Auto) Lymph # (Auto) [place] # (Auto) Eos # (Auto) Baso # (Auto) Abs Immat Gran (auto) Absolute Neuts (auto) Absolute Nucleated RBC Nucleated RBC % (auto) Neutrophils % (Manual) Band Neutrophils % Lymphocytes % (Manual) Monocytes % (Manual) Abs Neuts (Manual) Lymphocytes # (Manual) Monocytes # (Manual) Nucleated RBCs Platelet Estimate Plt Morphology Comment RBC Morphology Polychromasia Microcytosis Macrocytosis Tear Drop Cells [place] Cells Smear Tech's Comments Smear Path Review ESR PT INR APTT PTT (Heparin Protocol) ABG pH ABG pCO2 ABG pO2 ABG HCO3 ABG O2 Saturation ABG Base Excess VBG pH 7.23 L VBG pCO2 42 VBG pO2 61 VBG HCO3 18 VBG O2 Saturation 86.2 VBG Base Excess -9.5 Oxygen Given Sodium Potassium Chloride Carbon Dioxide Anion Gap BUN Creatinine Estim Creat Clear Calc Estimated GFR POC Glucose Random Glucose Fasting Glucose Osmolality Lactic Acid 1.7 Lactic Acid Fup @ 2Hr Lactic Acid Fup @ 4Hr Calcium Uric Acid Phosphorus Magnesium Total Bilirubin Direct Bilirubin AST ALT Alkaline Phosphatase Ammonia Lactate Dehydrogenase Total Creatine Kinase C-Reactive Protein B-Natriuretic Peptide Total Protein Albumin Lipase 21 Vitamin B12 Vitamin B1 Procalcitonin Urine Color Urine Appearance Urine pH Ur Specific [place] Urine Protein Urine Glucose (UA) Urine Ketones Urine Blood Urine Nitrite Ur Leukocyte Esterase Urine RBC Urine WBC Ur Squamous Epith Cells Amorphous Sediment Urine Bacteria Hyaline Casts U Random Total Protein Ur Random Sodium Urine Creatinine Protein/Creatinin Ratio Bronchial Fluid WBC Bronchial Fluid RBC Bronchial Neutrophils Stool Leukocytes, Qual Random Vancomycin Digoxin Salicylates Urine Opiates Screen Ur Barbiturates Screen Ur Phencyclidine Scrn Ur Amphetamines Screen U Benzodiazepines Scrn Urine Cocaine Screen U Marijuana (THC) Screen Ethyl Alcohol T.pallidum Ab (EIA) C. difficile Toxin A&B C. difficile Antigen C. difficile Interpret Coronavirus (PCR) COVID-19 (LINDEN) COVID-19 Clin Com Hepatitis A IgM Ab Hep Bs Antigen Hep Bs Antibody Hep B Core Total Ab Hepatitis C Ab (EIA) HIV 1&2 Ab/P24 Ag 4thGn Influenza Type A (PCR) Influenza Type B (PCR) RSV RNA Qual (PCR) SARS-CoV-2 IgG Ab Blood Type Antibody Screen 06/06/20 06/06/20 06/06/20 05:35 05:35 05:35 WBC 7.1 RBC 3.42 L Hgb 12.0 L Hct 36.9 L MCV 107.9 H MCH 35.1 H MCHC 32.5 RDW 13.9 Plt Count 162 D MPV 10.7 Immature Gran % (Auto) 0.4 Neut % (Auto) 70.7 Lymph % (Auto) 13.9 L [place] % (Auto) 14.3 H Eos % (Auto) 0.4 Baso % (Auto) 0.3 Lymph # (Auto) 1.0 L [place] # (Auto) 1.0 Eos # (Auto) 0.0 Baso # (Auto) 0.0 Abs Immat Gran (auto) 0.03 Absolute Neuts (auto) 5.0 Absolute Nucleated RBC 0.050 H Nucleated RBC % (auto) 0.7 H Neutrophils % (Manual) Band Neutrophils % Lymphocytes % (Manual) Monocytes % (Manual) Abs Neuts (Manual) Lymphocytes # (Manual) Monocytes # (Manual) Nucleated RBCs Platelet Estimate Plt Morphology Comment RBC Morphology Polychromasia Microcytosis Macrocytosis Tear Drop Cells [place] Cells Smear Tech's Comments Smear Path Review ESR PT 15.7 H INR 1.3 H APTT 30.2 PTT (Heparin Protocol) ABG pH ABG pCO2 ABG pO2 ABG HCO3 ABG O2 Saturation ABG Base Excess VBG pH VBG pCO2 VBG pO2 VBG HCO3 VBG O2 Saturation VBG Base Excess Oxygen Given Sodium 137 Potassium 3.2 L D Chloride 102 Carbon Dioxide 19 L Anion Gap 19 BUN 53 H Creatinine 3.29 H Estim Creat Clear Calc 37.2 Estimated GFR 19 POC Glucose Random Glucose 100 Fasting Glucose Osmolality Lactic Acid Lactic Acid Fup @ 2Hr Lactic Acid Fup @ 4Hr Calcium 7.7 L Uric Acid Phosphorus 4.9 H Magnesium 2.2 Total Bilirubin Direct Bilirubin AST ALT Alkaline Phosphatase Ammonia Lactate Dehydrogenase Total Creatine Kinase C-Reactive Protein B-Natriuretic Peptide Total Protein Albumin Lipase Vitamin B12 Vitamin B1 Procalcitonin Urine Color Urine Appearance Urine pH Ur Specific [place] Urine Protein Urine Glucose (UA) Urine Ketones Urine Blood Urine Nitrite Ur Leukocyte Esterase Urine RBC Urine WBC Ur Squamous Epith Cells Amorphous Sediment Urine Bacteria Hyaline Casts U Random Total Protein Ur Random Sodium Urine Creatinine Protein/Creatinin Ratio Bronchial Fluid WBC Bronchial Fluid RBC Bronchial Neutrophils Stool Leukocytes, Qual Random Vancomycin Digoxin Salicylates Urine Opiates Screen Ur Barbiturates Screen Ur Phencyclidine Scrn Ur Amphetamines Screen U Benzodiazepines Scrn Urine Cocaine Screen U Marijuana (THC) Screen Ethyl Alcohol T.pallidum Ab (EIA) C. difficile Toxin A&B C. difficile Antigen C. difficile Interpret Coronavirus (PCR) COVID-19 (LINDEN) COVID-19 Clin Com Hepatitis A IgM Ab Hep Bs Antigen Hep Bs Antibody Hep B Core Total Ab Hepatitis C Ab (EIA) HIV 1&2 Ab/P24 Ag 4thGn Influenza Type A (PCR) Influenza Type B (PCR) RSV RNA Qual (PCR) SARS-CoV-2 IgG Ab Blood Type Antibody Screen 06/06/20 06/06/20 06/06/20 05:35 05:35 16:17 WBC RBC Hgb Hct MCV MCH MCHC RDW Plt Count MPV Immature Gran % (Auto) Neut % (Auto) Lymph % (Auto) [place] % (Auto) Eos % (Auto) Baso % (Auto) Lymph # (Auto) [place] # (Auto) Eos # (Auto) Baso # (Auto) Abs Immat Gran (auto) Absolute Neuts (auto) Absolute Nucleated RBC Nucleated RBC % (auto) Neutrophils % (Manual) Band Neutrophils % Lymphocytes % (Manual) Monocytes % (Manual) Abs Neuts (Manual) Lymphocytes # (Manual) Monocytes # (Manual) Nucleated RBCs Platelet Estimate Plt Morphology Comment RBC Morphology Polychromasia Microcytosis Macrocytosis Tear Drop Cells [place] Cells Smear Tech's Comments Smear Path Review ESR PT INR APTT PTT (Heparin Protocol) ABG pH ABG pCO2 ABG pO2 ABG HCO3 ABG O2 Saturation ABG Base Excess VBG pH 7.33 VBG pCO2 39 VBG pO2 55 VBG HCO3 20 VBG O2 Saturation 85.4 VBG Base Excess -5.3 Oxygen Given Sodium Potassium Chloride Carbon Dioxide Anion Gap BUN Creatinine Estim Creat Clear Calc Estimated GFR POC Glucose Random Glucose Fasting Glucose Osmolality Lactic Acid Lactic Acid Fup @ 2Hr Lactic Acid Fup @ 4Hr Calcium Uric Acid Phosphorus Magnesium Total Bilirubin Direct Bilirubin AST ALT Alkaline Phosphatase Ammonia Lactate Dehydrogenase Total Creatine Kinase C-Reactive Protein B-Natriuretic Peptide 4720 H Total Protein Albumin Lipase Vitamin B12 Vitamin B1 Procalcitonin Urine Color Urine Appearance Urine pH Ur Specific [place] Urine Protein Urine Glucose (UA) Urine Ketones Urine Blood Urine Nitrite Ur Leukocyte Esterase Urine RBC Urine WBC Ur Squamous Epith Cells Amorphous Sediment Urine Bacteria Hyaline Casts U Random Total Protein Ur Random Sodium Urine Creatinine Protein/Creatinin Ratio Bronchial Fluid WBC Bronchial Fluid RBC Bronchial Neutrophils Stool Leukocytes, Qual Random Vancomycin 15.3 Digoxin Salicylates Urine Opiates Screen Ur Barbiturates Screen Ur Phencyclidine Scrn Ur Amphetamines Screen U Benzodiazepines Scrn Urine Cocaine Screen U Marijuana (THC) Screen Ethyl Alcohol T.pallidum Ab (EIA) C. difficile Toxin A&B C. difficile Antigen C. difficile Interpret Coronavirus (PCR) COVID-19 (LINDEN) COVID-19 Clin Com Hepatitis A IgM Ab Hep Bs Antigen Hep Bs Antibody Hep B Core Total Ab Hepatitis C Ab (EIA) HIV 1&2 Ab/P24 Ag 4thGn Influenza Type A (PCR) Influenza Type B (PCR) RSV RNA Qual (PCR) SARS-CoV-2 IgG Ab Blood Type Antibody Screen 06/07/20 06/07/20 06/07/20 05:00 05:00 05:00 WBC 9.4 RBC 3.55 L Hgb 12.6 L Hct 38.0 L MCV 107.0 H MCH 35.5 H MCHC 33.2 RDW 14.3 Plt Count 172 MPV 11.4 Immature Gran % (Auto) 0.5 H Neut % (Auto) 67.9 Lymph % (Auto) 13.1 L [place] % (Auto) 17.8 H Eos % (Auto) 0.4 Baso % (Auto) 0.3 Lymph # (Auto) 1.2 [place] # (Auto) 1.7 H Eos # (Auto) 0.0 Baso # (Auto) 0.0 Abs Immat Gran (auto) 0.05 H Absolute Neuts (auto) 6.4 Absolute Nucleated RBC 0.070 H Nucleated RBC % (auto) 0.7 H Neutrophils % (Manual) Band Neutrophils % Lymphocytes % (Manual) Monocytes % (Manual) Abs Neuts (Manual) Lymphocytes # (Manual) Monocytes # (Manual) Nucleated RBCs Platelet Estimate Plt Morphology Comment RBC Morphology Polychromasia Microcytosis Macrocytosis Tear Drop Cells [place] Cells Smear Tech's Comments VERIFIED Smear Path Review ESR PT 13.8 H INR 1.2 H APTT 30.0 PTT (Heparin Protocol) ABG pH ABG pCO2 ABG pO2 ABG HCO3 ABG O2 Saturation ABG Base Excess VBG pH VBG pCO2 VBG pO2 VBG HCO3 VBG O2 Saturation VBG Base Excess Oxygen Given Sodium 136 Potassium 3.6 Chloride 103 Carbon Dioxide 21 L Anion Gap 16 BUN 39 H Creatinine 2.40 H Estim Creat Clear Calc 51.0 Estimated GFR 28 POC Glucose Random Glucose 113 Fasting Glucose Osmolality Lactic Acid Lactic Acid Fup @ 2Hr Lactic Acid Fup @ 4Hr Calcium 8.4 D Uric Acid Phosphorus 3.5 Magnesium 2.2 Total Bilirubin Direct Bilirubin AST ALT Alkaline Phosphatase Ammonia Lactate Dehydrogenase Total Creatine Kinase C-Reactive Protein B-Natriuretic Peptide Total Protein Albumin Lipase Vitamin B12 Vitamin B1 Procalcitonin Urine Color Urine Appearance Urine pH Ur Specific [place] Urine Protein Urine Glucose (UA) Urine Ketones Urine Blood Urine Nitrite Ur Leukocyte Esterase Urine RBC Urine WBC Ur Squamous Epith Cells Amorphous Sediment Urine Bacteria Hyaline Casts U Random Total Protein Ur Random Sodium Urine Creatinine Protein/Creatinin Ratio Bronchial Fluid WBC Bronchial Fluid RBC Bronchial Neutrophils Stool Leukocytes, Qual Random Vancomycin Digoxin Salicylates Urine Opiates Screen Ur Barbiturates Screen Ur Phencyclidine Scrn Ur Amphetamines Screen U Benzodiazepines Scrn Urine Cocaine Screen U Marijuana (THC) Screen Ethyl Alcohol T.pallidum Ab (EIA) C. difficile Toxin A&B C. difficile Antigen C. difficile Interpret Coronavirus (PCR) COVID-19 (LINDEN) COVID-19 Clin Com Hepatitis A IgM Ab Hep Bs Antigen Hep Bs Antibody Hep B Core Total Ab Hepatitis C Ab (EIA) HIV 1&2 Ab/P24 Ag 4thGn Influenza Type A (PCR) Influenza Type B (PCR) RSV RNA Qual (PCR) SARS-CoV-2 IgG Ab Blood Type Antibody Screen 06/07/20 06/07/20 06/08/20 05:00 15:53 05:24 WBC 8.3 RBC 3.35 L Hgb 11.8 L Hct 35.7 L MCV 106.6 H MCH 35.2 H MCHC 33.1 RDW 14.4 Plt Count 139 L MPV 11.5 Immature Gran % (Auto) 0.5 H Neut % (Auto) 67.4 Lymph % (Auto) 14.0 L [place] % (Auto) 17.3 H Eos % (Auto) 0.4 Baso % (Auto) 0.4 Lymph # (Auto) 1.2 [place] # (Auto) 1.4 H Eos # (Auto) 0.0 Baso # (Auto) 0.0 Abs Immat Gran (auto) 0.04 H Absolute Neuts (auto) 5.6 Absolute Nucleated RBC 0.000 Nucleated RBC % (auto) 0.0 Neutrophils % (Manual) Band Neutrophils % Lymphocytes % (Manual) Monocytes % (Manual) Abs Neuts (Manual) Lymphocytes # (Manual) Monocytes # (Manual) Nucleated RBCs Platelet Estimate Plt Morphology Comment RBC Morphology Polychromasia Microcytosis Macrocytosis Tear Drop Cells [place] Cells Smear Tech's Comments Smear Path Review ESR PT INR APTT PTT (Heparin Protocol) ABG pH ABG pCO2 ABG pO2 ABG HCO3 ABG O2 Saturation ABG Base Excess VBG pH 7.31 L VBG pCO2 42 VBG pO2 55 VBG HCO3 21 VBG O2 Saturation 84.1 VBG Base Excess -5.1 Oxygen Given Sodium 137 Potassium 3.8 Chloride 104 Carbon Dioxide 22 Anion Gap 15 BUN 40 H Creatinine 2.24 H Estim Creat Clear Calc 54.7 Estimated GFR 30 POC Glucose Random Glucose 125 H Fasting Glucose Osmolality Lactic Acid Lactic Acid Fup @ 2Hr Lactic Acid Fup @ 4Hr Calcium 8.2 L Uric Acid Phosphorus Magnesium Total Bilirubin Direct Bilirubin AST ALT Alkaline Phosphatase Ammonia Lactate Dehydrogenase Total Creatine Kinase C-Reactive Protein B-Natriuretic Peptide Total Protein Albumin Lipase Vitamin B12 Vitamin B1 Procalcitonin Urine Color Urine Appearance Urine pH Ur Specific [place] Urine Protein Urine Glucose (UA) Urine Ketones Urine Blood Urine Nitrite Ur Leukocyte Esterase Urine RBC Urine WBC Ur Squamous Epith Cells Amorphous Sediment Urine Bacteria Hyaline Casts U Random Total Protein Ur Random Sodium Urine Creatinine Protein/Creatinin Ratio Bronchial Fluid WBC Bronchial Fluid RBC Bronchial Neutrophils Stool Leukocytes, Qual Random Vancomycin Digoxin Salicylates Urine Opiates Screen Ur Barbiturates Screen Ur Phencyclidine Scrn Ur Amphetamines Screen U Benzodiazepines Scrn Urine Cocaine Screen U Marijuana (THC) Screen Ethyl Alcohol T.pallidum Ab (EIA) C. difficile Toxin A&B C. difficile Antigen C. difficile Interpret Coronavirus (PCR) COVID-19 (LINDEN) COVID-19 Clin Com Hepatitis A IgM Ab Hep Bs Antigen Hep Bs Antibody Hep B Core Total Ab Hepatitis C Ab (EIA) HIV 1&2 Ab/P24 Ag 4thGn Influenza Type A (PCR) Influenza Type B (PCR) RSV RNA Qual (PCR) SARS-CoV-2 IgG Ab Blood Type Antibody Screen 06/08/20 06/08/20 06/08/20 05:24 05:24 05:24 WBC RBC Hgb Hct MCV MCH MCHC RDW Plt Count MPV Immature Gran % (Auto) Neut % (Auto) Lymph % (Auto) [place] % (Auto) Eos % (Auto) Baso % (Auto) Lymph # (Auto) [place] # (Auto) Eos # (Auto) Baso # (Auto) Abs Immat Gran (auto) Absolute Neuts (auto) Absolute Nucleated RBC Nucleated RBC % (auto) Neutrophils % (Manual) Band Neutrophils % Lymphocytes % (Manual) Monocytes % (Manual) Abs Neuts (Manual) Lymphocytes # (Manual) Monocytes # (Manual) Nucleated RBCs Platelet Estimate Plt Morphology Comment RBC Morphology Polychromasia Microcytosis Macrocytosis Tear Drop Cells [place] Cells Smear Tech's Comments Smear Path Review ESR PT 14.2 H INR 1.2 H APTT 32.1 PTT (Heparin Protocol) ABG pH ABG pCO2 ABG pO2 ABG HCO3 ABG O2 Saturation ABG Base Excess VBG pH VBG pCO2 VBG pO2 VBG HCO3 VBG O2 Saturation VBG Base Excess Oxygen Given Sodium 139 Potassium 3.7 Chloride 104 Carbon Dioxide 23 Anion Gap 16 BUN 39 H Creatinine 1.89 H Estim Creat Clear Calc 59.1 Estimated GFR 37 POC Glucose Random Glucose 121 H Fasting Glucose Osmolality Lactic Acid Lactic Acid Fup @ 2Hr Lactic Acid Fup @ 4Hr Calcium 8.1 L Uric Acid Phosphorus 3.2 Magnesium 1.8 Total Bilirubin Direct Bilirubin AST ALT Alkaline Phosphatase Ammonia Lactate Dehydrogenase Total Creatine Kinase C-Reactive Protein B-Natriuretic Peptide 1747 H Total Protein Albumin Lipase Vitamin B12 Vitamin B1 Procalcitonin Urine Color Urine Appearance Urine pH Ur Specific [place] Urine Protein Urine Glucose (UA) Urine Ketones Urine Blood Urine Nitrite Ur Leukocyte Esterase Urine RBC Urine WBC Ur Squamous Epith Cells Amorphous Sediment Urine Bacteria Hyaline Casts U Random Total Protein Ur Random Sodium Urine Creatinine Protein/Creatinin Ratio Bronchial Fluid WBC Bronchial Fluid RBC Bronchial Neutrophils Stool Leukocytes, Qual Random Vancomycin Digoxin Salicylates Urine Opiates Screen Ur Barbiturates Screen Ur Phencyclidine Scrn Ur Amphetamines Screen U Benzodiazepines Scrn Urine Cocaine Screen U Marijuana (THC) Screen Ethyl Alcohol T.pallidum Ab (EIA) C. difficile Toxin A&B C. difficile Antigen C. difficile Interpret Coronavirus (PCR) COVID-19 (LINDEN) COVID-19 Clin Com Hepatitis A IgM Ab Hep Bs Antigen Hep Bs Antibody Hep B Core Total Ab Hepatitis C Ab (EIA) HIV 1&2 Ab/P24 Ag 4thGn Influenza Type A (PCR) Influenza Type B (PCR) RSV RNA Qual (PCR) SARS-CoV-2 IgG Ab Blood Type Antibody Screen 06/08/20 06/08/20 06/08/20 05:24 15:45 15:45 WBC 9.2 RBC 3.57 L Hgb 12.6 L Hct 38.5 L MCV 107.8 H MCH 35.3 H MCHC 32.7 RDW 14.3 Plt Count 137 L MPV 11.7 Immature Gran % (Auto) Neut % (Auto) Lymph % (Auto) [place] % (Auto) Eos % (Auto) Baso % (Auto) Lymph # (Auto) [place] # (Auto) Eos # (Auto) Baso # (Auto) Abs Immat Gran (auto) Absolute Neuts (auto) Absolute Nucleated RBC 0.020 H Nucleated RBC % (auto) 0.2 Neutrophils % (Manual) Band Neutrophils % Lymphocytes % (Manual) Monocytes % (Manual) Abs Neuts (Manual) Lymphocytes # (Manual) Monocytes # (Manual) Nucleated RBCs Platelet Estimate Plt Morphology Comment RBC Morphology Polychromasia Microcytosis Macrocytosis Tear Drop Cells [place] Cells Smear Tech's Comments Smear Path Review ESR PT 13.4 H INR 1.1 APTT 33.2 PTT (Heparin Protocol) ABG pH ABG pCO2 ABG pO2 ABG HCO3 ABG O2 Saturation ABG Base Excess VBG pH 7.41 VBG pCO2 38 VBG pO2 47 VBG HCO3 23 VBG O2 Saturation 81.8 VBG Base Excess -1.0 Oxygen Given Sodium Potassium Chloride Carbon Dioxide Anion Gap BUN Creatinine Estim Creat Clear Calc Estimated GFR POC Glucose Random Glucose Fasting Glucose Osmolality Lactic Acid Lactic Acid Fup @ 2Hr Lactic Acid Fup @ 4Hr Calcium Uric Acid Phosphorus Magnesium Total Bilirubin Direct Bilirubin AST ALT Alkaline Phosphatase Ammonia Lactate Dehydrogenase Total Creatine Kinase C-Reactive Protein B-Natriuretic Peptide Total Protein Albumin Lipase Vitamin B12 Vitamin B1 Procalcitonin Urine Color Urine Appearance Urine pH Ur Specific [place] Urine Protein Urine Glucose (UA) Urine Ketones Urine Blood Urine Nitrite Ur Leukocyte Esterase Urine RBC Urine WBC Ur Squamous Epith Cells Amorphous Sediment Urine Bacteria Hyaline Casts U Random Total Protein Ur Random Sodium Urine Creatinine Protein/Creatinin Ratio Bronchial Fluid WBC Bronchial Fluid RBC Bronchial Neutrophils Stool Leukocytes, Qual Random Vancomycin Digoxin Salicylates Urine Opiates Screen Ur Barbiturates Screen Ur Phencyclidine Scrn Ur Amphetamines Screen U Benzodiazepines Scrn Urine Cocaine Screen U Marijuana (THC) Screen Ethyl Alcohol T.pallidum Ab (EIA) C. difficile Toxin A&B C. difficile Antigen C. difficile Interpret Coronavirus (PCR) COVID-19 (LINDEN) COVID-19 Clin Com Hepatitis A IgM Ab Hep Bs Antigen Hep Bs Antibody Hep B Core Total Ab Hepatitis C Ab (EIA) HIV 1&2 Ab/P24 Ag 4thGn Influenza Type A (PCR) Influenza Type B (PCR) RSV RNA Qual (PCR) SARS-CoV-2 IgG Ab Blood Type Antibody Screen 06/09/20 06/09/20 06/09/20 04:36 04:36 04:36 WBC 8.7 RBC 3.56 L Hgb 12.3 L Hct 38.4 L MCV 107.9 H MCH 34.6 H MCHC 32.0 RDW 14.2 Plt Count 142 L MPV 11.7 Immature Gran % (Auto) 0.6 H Neut % (Auto) 67.2 Lymph % (Auto) 14.1 L [place] % (Auto) 16.8 H Eos % (Auto) 1.0 Baso % (Auto) 0.3 Lymph # (Auto) 1.2 Pl[place] # (Auto) 1.5 H Eos # (Auto) 0.1 Baso # (Auto) 0.0 Abs Immat Gran (auto) 0.05 H Absolute Neuts (auto) 5.9 Absolute Nucleated RBC 0.000 Nucleated RBC % (auto) 0.0 Neutrophils % (Manual) Band Neutrophils % Lymphocytes % (Manual) Monocytes % (Manual) Abs Neuts (Manual) Lymphocytes # (Manual) Monocytes # (Manual) Nucleated RBCs Platelet Estimate Plt Morphology Comment RBC Morphology Polychromasia Microcytosis Macrocytosis Tear Drop Cells [place] Cells Smear Tech's Comments Smear Path Review ESR PT 14.5 H INR 1.2 H APTT 36.9 PTT (Heparin Protocol) ABG pH ABG pCO2 ABG pO2 ABG HCO3 ABG O2 Saturation ABG Base Excess VBG pH VBG pCO2 VBG pO2 VBG HCO3 VBG O2 Saturation VBG Base Excess Oxygen Given Sodium 141 Potassium 3.9 Chloride 103 Carbon Dioxide 27 Anion Gap 15 BUN 34 H Creatinine 1.36 Estim Creat Clear Calc 82.1 Estimated GFR 54 POC Glucose Random Glucose 116 H Fasting Glucose Osmolality Lactic Acid Lactic Acid Fup @ 2Hr Lactic Acid Fup @ 4Hr Calcium 8.4 Uric Acid Phosphorus 3.5 Magnesium 1.6 Total Bilirubin Direct Bilirubin AST ALT Alkaline Phosphatase Ammonia Lactate Dehydrogenase Total Creatine Kinase C-Reactive Protein B-Natriuretic Peptide Total Protein Albumin 2.6 L Lipase Vitamin B12 Vitamin B1 Procalcitonin Urine Color Urine Appearance Urine pH Ur Specific [place] Urine Protein Urine Glucose (UA) Urine Ketones Urine Blood Urine Nitrite Ur Leukocyte Esterase Urine RBC Urine WBC Ur Squamous Epith Cells Amorphous Sediment Urine Bacteria Hyaline Casts U Random Total Protein Ur Random Sodium Urine Creatinine Protein/Creatinin Ratio Bronchial Fluid WBC Bronchial Fluid RBC Bronchial Neutrophils Stool Leukocytes, Qual Random Vancomycin Digoxin Salicylates Urine Opiates Screen Ur Barbiturates Screen Ur Phencyclidine Scrn Ur Amphetamines Screen U Benzodiazepines Scrn Urine Cocaine Screen U Marijuana (THC) Screen Ethyl Alcohol T.pallidum Ab (EIA) C. difficile Toxin A&B C. difficile Antigen C. difficile Interpret Coronavirus (PCR) COVID-19 (LINDEN) COVID-19 Clin Com Hepatitis A IgM Ab Hep Bs Antigen Hep Bs Antibody Hep B Core Total Ab Hepatitis C Ab (EIA) HIV 1&2 Ab/P24 Ag 4thGn Influenza Type A (PCR) Influenza Type B (PCR) RSV RNA Qual (PCR) SARS-CoV-2 IgG Ab Blood Type Antibody Screen 06/09/20 06/09/20 06/09/20 04:36 04:36 10:12 WBC RBC Hgb Hct MCV MCH MCHC RDW Plt Count MPV Immature Gran % (Auto) Neut % (Auto) Lymph % (Auto) [place] % (Auto) Eos % (Auto) Baso % (Auto) Lymph # (Auto) [place] # (Auto) Eos # (Auto) Baso # (Auto) Abs Immat Gran (auto) Absolute Neuts (auto) Absolute Nucleated RBC Nucleated RBC % (auto) Neutrophils % (Manual) Band Neutrophils % Lymphocytes % (Manual) Monocytes % (Manual) Abs Neuts (Manual) Lymphocytes # (Manual) Monocytes # (Manual) Nucleated RBCs Platelet Estimate Plt Morphology Comment RBC Morphology Polychromasia Microcytosis Macrocytosis Tear Drop Cells [place] Cells Smear Tech's Comments Smear Path Review ESR PT 13.5 H INR 1.1 APTT PTT (Heparin Protocol) 32.6 L ABG pH ABG pCO2 ABG pO2 ABG HCO3 ABG O2 Saturation ABG Base Excess VBG pH 7.35 VBG pCO2 48 VBG pO2 42 VBG HCO3 26 VBG O2 Saturation 73.2 VBG Base Excess -0.4 Oxygen Given Sodium Potassium Chloride Carbon Dioxide Anion Gap BUN Creatinine Estim Creat Clear Calc Estimated GFR POC Glucose Random Glucose Fasting Glucose Osmolality Lactic Acid Lactic Acid Fup @ 2Hr Lactic Acid Fup @ 4Hr Calcium Uric Acid Phosphorus Magnesium Total Bilirubin Direct Bilirubin AST ALT Alkaline Phosphatase Ammonia Lactate Dehydrogenase Total Creatine Kinase C-Reactive Protein B-Natriuretic Peptide 2070 H Total Protein Albumin Lipase Vitamin B12 Vitamin B1 Procalcitonin Urine Color Urine Appearance Urine pH Ur Specific [place] Urine Protein Urine Glucose (UA) Urine Ketones Urine Blood Urine Nitrite Ur Leukocyte Esterase Urine RBC Urine WBC Ur Squamous Epith Cells Amorphous Sediment Urine Bacteria Hyaline Casts U Random Total Protein Ur Random Sodium Urine Creatinine Protein/Creatinin Ratio Bronchial Fluid WBC Bronchial Fluid RBC Bronchial Neutrophils Stool Leukocytes, Qual Random Vancomycin Digoxin Salicylates Urine Opiates Screen Ur Barbiturates Screen Ur Phencyclidine Scrn Ur Amphetamines Screen U Benzodiazepines Scrn Urine Cocaine Screen U Marijuana (THC) Screen Ethyl Alcohol T.pallidum Ab (EIA) C. difficile Toxin A&B C. difficile Antigen C. difficile Interpret Coronavirus (PCR) COVID-19 (LINDEN) COVID-19 Clin Com Hepatitis A IgM Ab Hep Bs Antigen Hep Bs Antibody Hep B Core Total Ab Hepatitis C Ab (EIA) HIV 1&2 Ab/P24 Ag 4thGn Influenza Type A (PCR) Influenza Type B (PCR) RSV RNA Qual (PCR) SARS-CoV-2 IgG Ab Blood Type Antibody Screen 06/09/20 06/09/20 06/09/20 13:11 17:17 17:17 WBC RBC Hgb Hct MCV MCH MCHC RDW Plt Count MPV Immature Gran % (Auto) Neut % (Auto) Lymph % (Auto) [place] % (Auto) Eos % (Auto) Baso % (Auto) Lymph # (Auto) [place] # (Auto) Eos # (Auto) Baso # (Auto) Abs Immat Gran (auto) Absolute Neuts (auto) Absolute Nucleated RBC Nucleated RBC % (auto) Neutrophils % (Manual) Band Neutrophils % Lymphocytes % (Manual) Monocytes % (Manual) Abs Neuts (Manual) Lymphocytes # (Manual) Monocytes # (Manual) Nucleated RBCs Platelet Estimate Plt Morphology Comment RBC Morphology Polychromasia Microcytosis Macrocytosis Tear Drop Cells [place] Cells Smear Tech's Comments Smear Path Review ESR PT 14.2 H INR 1.2 H APTT PTT (Heparin Protocol) 66.2 D ABG pH ABG pCO2 ABG pO2 ABG HCO3 ABG O2 Saturation ABG Base Excess VBG pH VBG pCO2 VBG pO2 VBG HCO3 VBG O2 Saturation VBG Base Excess Oxygen Given Sodium Potassium Chloride Carbon Dioxide Anion Gap BUN Creatinine Estim Creat Clear Calc Estimated GFR POC Glucose Random Glucose Fasting Glucose Osmolality Lactic Acid Lactic Acid Fup @ 2Hr Lactic Acid Fup @ 4Hr Calcium Uric Acid Phosphorus Magnesium Total Bilirubin Direct Bilirubin AST ALT Alkaline Phosphatase Ammonia Lactate Dehydrogenase Total Creatine Kinase C-Reactive Protein B-Natriuretic Peptide Total Protein Albumin Lipase Vitamin B12 Vitamin B1 Procalcitonin Urine Color Urine Appearance Urine pH Ur Specific [place] Urine Protein Urine Glucose (UA) Urine Ketones Urine Blood Urine Nitrite Ur Leukocyte Esterase Urine RBC Urine WBC Ur Squamous Epith Cells Amorphous Sediment Urine Bacteria Hyaline Casts U Random Total Protein Ur Random Sodium Urine Creatinine Protein/Creatinin Ratio Bronchial Fluid WBC Bronchial Fluid RBC Bronchial Neutrophils Stool Leukocytes, Qual NEGATIVE Random Vancomycin Digoxin Salicylates Urine Opiates Screen Ur Barbiturates Screen Ur Phencyclidine Scrn Ur Amphetamines Screen U Benzodiazepines Scrn Urine Cocaine Screen U Marijuana (THC) Screen Ethyl Alcohol T.pallidum Ab (EIA) C. difficile Toxin A&B C. difficile Antigen C. difficile Interpret Coronavirus (PCR) COVID-19 ([facility]INDEN) COVID-19 Clin Com Hepatitis A IgM Ab Hep Bs Antigen Hep Bs Antibody Hep B Core Total Ab Hepatitis C Ab (EIA) HIV 1&2 Ab/P24 Ag 4thGn Influenza Type A (PCR) Influenza Type B (PCR) RSV RNA Qual (PCR) SARS-CoV-2 IgG Ab Blood Type Antibody Screen 06/09/20 06/10/20 06/10/20 19:52 00:15 05:18 WBC 9.0 RBC 3.34 L Hgb 11.7 L Hct 36.0 L MCV 107.8 H MCH 35.0 H MCHC 32.5 RDW 14.2 Plt Count 142 L MPV 11.9 Immature Gran % (Auto) 0.9 H Neut % (Auto) 69.4 Lymph % (Auto) 14.9 L [place] % (Auto) 12.8 H Eos % (Auto) 1.7 Baso % (Auto) 0.3 Lymph # (Auto) 1.3 [place] # (Auto) 1.2 Eos # (Auto) 0.2 Baso # (Auto) 0.0 Abs Immat Gran (auto) 0.08 H Absolute Neuts (auto) 6.3 Absolute Nucleated RBC 0.000 Nucleated RBC % (auto) 0.0 Neutrophils % (Manual) Band Neutrophils % Lymphocytes % (Manual) Monocytes % (Manual) Abs Neuts (Manual) Lymphocytes # (Manual) Monocytes # (Manual) Nucleated RBCs Platelet Estimate Plt Morphology Comment RBC Morphology Polychromasia Microcytosis Macrocytosis Tear Drop Cells [place] Cells Smear Tech's Comments Smear Path Review ESR PT INR APTT PTT (Heparin Protocol) 28.9 L D ABG pH ABG pCO2 ABG pO2 ABG HCO3 ABG O2 Saturation ABG Base Excess VBG pH VBG pCO2 VBG pO2 VBG HCO3 VBG O2 Saturation VBG Base Excess Oxygen Given Sodium 142 Potassium 3.9 Chloride 104 Carbon Dioxide 27 Anion Gap 15 BUN 29 H Creatinine 1.21 Estim Creat Clear Calc 92.3 Estimated GFR > 60 POC Glucose Random Glucose 106 Fasting Glucose Osmolality Lactic Acid Lactic Acid Fup @ 2Hr Lactic Acid Fup @ 4Hr Calcium 8.4 Uric Acid Phosphorus Magnesium Total Bilirubin Direct Bilirubin AST ALT Alkaline Phosphatase Ammonia Lactate Dehydrogenase Total Creatine Kinase C-Reactive Protein B-Natriuretic Peptide Total Protein Albumin Lipase Vitamin B12 Vitamin B1 Procalcitonin Urine Color Urine Appearance Urine pH Ur Specific [place] Urine Protein Urine Glucose (UA) Urine Ketones Urine Blood Urine Nitrite Ur Leukocyte Esterase Urine RBC Urine WBC Ur Squamous Epith Cells Amorphous Sediment Urine Bacteria Hyaline Casts U Random Total Protein Ur Random Sodium Urine Creatinine Protein/Creatinin Ratio Bronchial Fluid WBC Bronchial Fluid RBC Bronchial Neutrophils Stool Leukocytes, Qual Random Vancomycin Digoxin Salicylates Urine Opiates Screen Ur Barbiturates Screen Ur Phencyclidine Scrn Ur Amphetamines Screen U Benzodiazepines Scrn Urine Cocaine Screen U Marijuana (THC) Screen Ethyl Alcohol T.pallidum Ab (EIA) C. difficile Toxin A&B C. difficile Antigen C. difficile Interpret Coronavirus (PCR) COVID-19 (LINDEN) COVID-19 Clin Com Hepatitis A IgM Ab Hep Bs Antigen Hep Bs Antibody Hep B Core Total Ab Hepatitis C Ab (EIA) HIV 1&2 Ab/P24 Ag 4thGn Influenza Type A (PCR) Influenza Type B (PCR) RSV RNA Qual (PCR) SARS-CoV-2 IgG Ab Blood Type Antibody Screen 06/10/20 06/10/20 06/10/20 05:18 05:18 05:18 WBC RBC Hgb Hct MCV MCH MCHC RDW Plt Count MPV Immature Gran % (Auto) Neut % (Auto) Lymph % (Auto) [place] % (Auto) Eos % (Auto) Baso % (Auto) Lymph # (Auto) [place] # (Auto) Eos # (Auto) Baso # (Auto) Abs Immat Gran (auto) Absolute Neuts (auto) Absolute Nucleated RBC Nucleated RBC % (auto) Neutrophils % (Manual) Band Neutrophils % Lymphocytes % (Manual) Monocytes % (Manual) Abs Neuts (Manual) Lymphocytes # (Manual) Monocytes # (Manual) Nucleated RBCs Platelet Estimate Plt Morphology Comment RBC Morphology Polychromasia Microcytosis Macrocytosis Tear Drop Cells [place] Cells Smear Tech's Comments Smear Path Review ESR PT INR APTT PTT (Heparin Protocol) ABG pH ABG pCO2 ABG pO2 ABG HCO3 ABG O2 Saturation ABG Base Excess VBG pH 7.44 H VBG pCO2 46 VBG pO2 44 VBG HCO3 30 VBG O2 Saturation 78.1 VBG Base Excess 5.2 Oxygen Given Sodium Potassium Chloride Carbon Dioxide Anion Gap BUN Creatinine Estim Creat Clear Calc Estimated GFR POC Glucose Random Glucose Fasting Glucose Osmolality Lactic Acid Lactic Acid Fup @ 2Hr Lactic Acid Fup @ 4Hr Calcium Uric Acid Phosphorus Magnesium Total Bilirubin Direct Bilirubin AST ALT Alkaline Phosphatase Ammonia 35 Lactate Dehydrogenase Total Creatine Kinase C-Reactive Protein B-Natriuretic Peptide Total Protein Albumin 3.5 D Lipase Vitamin B12 Vitamin B1 Procalcitonin Urine Color Urine Appearance Urine pH Ur Specific [place] Urine Protein Urine Glucose (UA) Urine Ketones Urine Blood Urine Nitrite Ur Leukocyte Esterase Urine RBC Urine WBC Ur Squamous Epith Cells Amorphous Sediment Urine Bacteria Hyaline Casts U Random Total Protein Ur Random Sodium Urine Creatinine Protein/Creatinin Ratio Bronchial Fluid WBC Bronchial Fluid RBC Bronchial Neutrophils Stool Leukocytes, Qual Random Vancomycin Digoxin Salicylates Urine Opiates Screen Ur Barbiturates Screen Ur Phencyclidine Scrn Ur Amphetamines Screen U Benzodiazepines Scrn Urine Cocaine Screen U Marijuana (THC) Screen Ethyl Alcohol T.pallidum Ab (EIA) C. difficile Toxin A&B C. difficile Antigen C. difficile Interpret Coronavirus (PCR) COVID-19 (LINDEN) COVID-19 Clin Com Hepatitis A IgM Ab Hep Bs Antigen Hep Bs Antibody Hep B Core Total Ab Hepatitis C Ab (EIA) HIV 1&2 Ab/P24 Ag 4thGn Influenza Type A (PCR) Influenza Type B (PCR) RSV RNA Qual (PCR) SARS-CoV-2 IgG Ab Blood Type Antibody Screen 06/10/20 06/10/20 06/10/20 05:18 06:58 08:49 WBC RBC Hgb Hct MCV MCH MCHC RDW Plt Count MPV Immature Gran % (Auto) Neut % (Auto) Lymph % (Auto) [place] % (Auto) Eos % (Auto) Baso % (Auto) Lymph # (Auto) [place] # (Auto) Eos # (Auto) Baso # (Auto) Abs Immat Gran (auto) Absolute Neuts (auto) Absolute Nucleated RBC Nucleated RBC % (auto) Neutrophils % (Manual) Band Neutrophils % Lymphocytes % (Manual) Monocytes % (Manual) Abs Neuts (Manual) Lymphocytes # (Manual) Monocytes # (Manual) Nucleated RBCs Platelet Estimate Plt Morphology Comment RBC Morphology Polychromasia Microcytosis Macrocytosis Tear Drop Cells [place] Cells Smear Tech's Comments Smear Path Review ESR PT 14.4 H INR 1.2 H APTT PTT (Heparin Protocol) 106.6 H D ABG pH ABG pCO2 ABG pO2 ABG HCO3 ABG O2 Saturation ABG Base Excess VBG pH VBG pCO2 VBG pO2 VBG HCO3 VBG O2 Saturation VBG Base Excess Oxygen Given Sodium 143 Potassium 3.7 Chloride 101 Carbon Dioxide 33 H Anion Gap 13 BUN 27 H Creatinine 1.10 Estim Creat Clear Calc 101.6 Estimated GFR > 60 POC Glucose Random Glucose 125 H Fasting Glucose Osmolality Lactic Acid Lactic Acid Fup @ 2Hr Lactic Acid Fup @ 4Hr Calcium 9.0 D Uric Acid Phosphorus Magnesium Total Bilirubin 1.8 H Direct Bilirubin AST 69 H ALT 22 Alkaline Phosphatase 84 Ammonia Lactate Dehydrogenase Total Creatine Kinase C-Reactive Protein B-Natriuretic Peptide Total Protein 6.7 Albumin 3.5 Lipase Vitamin B12 Vitamin B1 Procalcitonin Urine Color Urine Appearance Urine pH Ur Specific [place] Urine Protein Urine Glucose (UA) Urine Ketones Urine Blood Urine Nitrite Ur Leukocyte Esterase Urine RBC Urine WBC Ur Squamous Epith Cells Amorphous Sediment Urine Bacteria Hyaline Casts U Random Total Protein Ur Random Sodium Urine Creatinine Protein/Creatinin Ratio Bronchial Fluid WBC Bronchial Fluid RBC Bronchial Neutrophils Stool Leukocytes, Qual Random Vancomycin Digoxin Salicylates Urine Opiates Screen Ur Barbiturates Screen Ur Phencyclidine Scrn Ur Amphetamines Screen U Benzodiazepines Scrn Urine Cocaine Screen U Marijuana (THC) Screen Ethyl Alcohol T.pallidum Ab (EIA) C. difficile Toxin A&B C. difficile Antigen C. difficile Interpret Coronavirus (PCR) COVID-19 (LINDEN) COVID-19 Clin Com Hepatitis A IgM Ab Hep Bs Antigen Hep Bs Antibody Hep B Core Total Ab Hepatitis C Ab (EIA) HIV 1&2 Ab/P24 Ag 4thGn Influenza Type A (PCR) Influenza Type B (PCR) RSV RNA Qual (PCR) SARS-CoV-2 IgG Ab Blood Type Antibody Screen 06/10/20 06/10/20 06/10/20 08:49 08:49 16:28 WBC RBC Hgb Hct MCV MCH MCHC RDW Plt Count MPV Immature Gran % (Auto) Neut % (Auto) Lymph % (Auto) [place] % (Auto) Eos % (Auto) Baso % (Auto) Lymph # (Auto) [place] # (Auto) Eos # (Auto) Baso # (Auto) Abs Immat Gran (auto) Absolute Neuts (auto) Absolute Nucleated RBC Nucleated RBC % (auto) Neutrophils % (Manual) Band Neutrophils % Lymphocytes % (Manual) Monocytes % (Manual) Abs Neuts (Manual) Lymphocytes # (Manual) Monocytes # (Manual) Nucleated RBCs Platelet Estimate Plt Morphology Comment RBC Morphology Polychromasia Microcytosis Macrocytosis Tear Drop Cells [place] Cells Smear Tech's Comments Smear Path Review ESR PT INR APTT Cancelled PTT (Heparin Protocol) 69.6 D 68.0 ABG pH ABG pCO2 ABG pO2 ABG HCO3 ABG O2 Saturation ABG Base Excess VBG pH VBG pCO2 VBG pO2 VBG HCO3 VBG O2 Saturation VBG Base Excess Oxygen Given Sodium Potassium Chloride Carbon Dioxide Anion Gap BUN Creatinine Estim Creat Clear Calc Estimated GFR POC Glucose Random Glucose Fasting Glucose Osmolality Lactic Acid Lactic Acid Fup @ 2Hr Lactic Acid Fup @ 4Hr Calcium Uric Acid Phosphorus Magnesium Total Bilirubin Direct Bilirubin AST ALT Alkaline Phosphatase Ammonia 34 Lactate Dehydrogenase Total Creatine Kinase C-Reactive Protein B-Natriuretic Peptide Total Protein Albumin Lipase Vitamin B12 Vitamin B1 Procalcitonin Urine Color Urine Appearance Urine pH Ur Specific [place] Urine Protein Urine Glucose (UA) Urine Ketones Urine Blood Urine Nitrite Ur Leukocyte Esterase Urine RBC Urine WBC Ur Squamous Epith Cells Amorphous Sediment Urine Bacteria Hyaline Casts U Random Total Protein Ur Random Sodium Urine Creatinine Protein/Creatinin Ratio Bronchial Fluid WBC Bronchial Fluid RBC Bronchial Neutrophils Stool Leukocytes, Qual Random Vancomycin Digoxin Salicylates Urine Opiates Screen Ur Barbiturates Screen Ur Phencyclidine Scrn Ur Amphetamines Screen U Benzodiazepines Scrn Urine Cocaine Screen U Marijuana (THC) Screen Ethyl Alcohol T.pallidum Ab (EIA) C. difficile Toxin A&B C. difficile Antigen C. difficile Interpret Coronavirus (PCR) COVID-19 (LINDEN) COVID-19 Clin Com Hepatitis A IgM Ab Hep Bs Antigen Hep Bs Antibody Hep B Core Total Ab Hepatitis C Ab (EIA) HIV 1&2 Ab/P24 Ag 4thGn Influenza Type A (PCR) Influenza Type B (PCR) RSV RNA Qual (PCR) SARS-CoV-2 IgG Ab Blood Type Antibody Screen 06/11/20 06/11/20 06/11/20 06:30 06:30 06:30 WBC 9.2 RBC 3.68 L Hgb 12.8 L Hct 39.0 L MCV 106.0 H MCH 34.8 H MCHC 32.8 RDW 14.1 Plt Count 152 L MPV 11.6 Immature Gran % (Auto) 0.7 H Neut % (Auto) 67.7 Lymph % (Auto) 16.5 L [place] % (Auto) 12.8 H Eos % (Auto) 1.9 Baso % (Auto) 0.4 Lymph # (Auto) 1.5 [place] # (Auto) 1.2 Eos # (Auto) 0.2 Baso # (Auto) 0.0 Abs Immat Gran (auto) 0.06 H Absolute Neuts (auto) 6.2 Absolute Nucleated RBC 0.000 Nucleated RBC % (auto) 0.0 Neutrophils % (Manual) Band Neutrophils % Lymphocytes % (Manual) Monocytes % (Manual) Abs Neuts (Manual) Lymphocytes # (Manual) Monocytes # (Manual) Nucleated RBCs Platelet Estimate Plt Morphology Comment RBC Morphology Polychromasia Microcytosis Macrocytosis Tear Drop Cells [place] Cells Smear Tech's Comments Smear Path Review ESR PT INR APTT PTT (Heparin Protocol) 54.1 D ABG pH ABG pCO2 ABG pO2 ABG HCO3 ABG O2 Saturation ABG Base Excess VBG pH VBG pCO2 VBG pO2 VBG HCO3 VBG O2 Saturation VBG Base Excess Oxygen Given Sodium 141 Potassium 3.5 Chloride 99 Carbon Dioxide 31 H Anion Gap 15 BUN 22 H Creatinine 0.85 Estim Creat Clear Calc 131.5 Estimated GFR > 60 POC Glucose Random Glucose 120 H Fasting Glucose Osmolality Lactic Acid Lactic Acid Fup @ 2Hr Lactic Acid Fup @ 4Hr Calcium 9.1 Uric Acid Phosphorus 3.4 Magnesium 1.5 L Total Bilirubin Direct Bilirubin AST ALT Alkaline Phosphatase Ammonia Lactate Dehydrogenase Total Creatine Kinase C-Reactive Protein B-Natriuretic Peptide Total Protein Albumin 3.2 L Lipase Vitamin B12 Vitamin B1 Procalcitonin Urine Color Urine Appearance Urine pH Ur Specific [place] Urine Protein Urine Glucose (UA) Urine Ketones Urine Blood Urine Nitrite Ur Leukocyte Esterase Urine RBC Urine WBC Ur Squamous Epith Cells Amorphous Sediment Urine Bacteria Hyaline Casts U Random Total Protein Ur Random Sodium Urine Creatinine Protein/Creatinin Ratio Bronchial Fluid WBC Bronchial Fluid RBC Bronchial Neutrophils Stool Leukocytes, Qual Random Vancomycin Digoxin Salicylates Urine Opiates Screen Ur Barbiturates Screen Ur Phencyclidine Scrn Ur Amphetamines Screen U Benzodiazepines Scrn Urine Cocaine Screen U Marijuana (THC) Screen Ethyl Alcohol T.pallidum Ab (EIA) C. difficile Toxin A&B C. difficile Antigen C. difficile Interpret Coronavirus (PCR) COVID-19 (LINDEN) COVID-19 Clin Com Hepatitis A IgM Ab Hep Bs Antigen Hep Bs Antibody Hep B Core Total Ab Hepatitis C Ab (EIA) HIV 1&2 Ab/P24 Ag 4thGn Influenza Type A (PCR) Influenza Type B (PCR) RSV RNA Qual (PCR) SARS-CoV-2 IgG Ab Blood Type Antibody Screen 06/11/20 06/12/20 06/12/20 06:30 05:35 05:35 WBC 11.8 H RBC 3.44 L Hgb 11.6 L Hct 36.0 L MCV 104.7 H MCH 33.7 H MCHC 32.2 RDW 14.1 Plt Count 167 MPV 12.2 Immature Gran % (Auto) 0.8 H Neut % (Auto) 71.8 Lymph % (Auto) 13.4 L [place] % (Auto) 12.3 H Eos % (Auto) 1.4 Baso % (Auto) 0.3 Lymph # (Auto) 1.6 [place] # (Auto) 1.5 H Eos # (Auto) 0.2 Baso # (Auto) 0.0 Abs Immat Gran (auto) 0.09 H Absolute Neuts (auto) 8.4 H Absolute Nucleated RBC 0.000 Nucleated RBC % (auto) 0.0 Neutrophils % (Manual) Band Neutrophils % Lymphocytes % (Manual) Monocytes % (Manual) Abs Neuts (Manual) Lymphocytes # (Manual) Monocytes # (Manual) Nucleated RBCs Platelet Estimate Plt Morphology Comment RBC Morphology Polychromasia Microcytosis Macrocytosis Tear Drop Cells [place] Cells Smear Tech's Comments Smear Path Review ESR PT INR APTT PTT (Heparin Protocol) ABG pH ABG pCO2 ABG pO2 ABG HCO3 ABG O2 Saturation ABG Base Excess VBG pH 7.47 H VBG pCO2 46 VBG pO2 70 VBG HCO3 32 VBG O2 Saturation 93.8 VBG Base Excess 7.6 Oxygen Given Sodium 142 Potassium 3.4 Chloride 95 L Carbon Dioxide 35 H Anion Gap 15 BUN 19 H Creatinine 0.96 Estim Creat Clear Calc 116.4 Estimated GFR > 60 POC Glucose Random Glucose 130 H Fasting Glucose Osmolality Lactic Acid Lactic Acid Fup @ 2Hr Lactic Acid Fup @ 4Hr Calcium 9.7 D Uric Acid Phosphorus 3.5 Magnesium 1.6 Total Bilirubin Direct Bilirubin AST ALT Alkaline Phosphatase Ammonia Lactate Dehydrogenase Total Creatine Kinase C-Reactive Protein B-Natriuretic Peptide Total Protein Albumin 3.8 Lipase Vitamin B12 Vitamin B1 Procalcitonin Urine Color Urine Appearance Urine pH Ur Specific [place] Urine Protein Urine Glucose (UA) Urine Ketones Urine Blood Urine Nitrite Ur Leukocyte Esterase Urine RBC Urine WBC Ur Squamous Epith Cells Amorphous Sediment Urine Bacteria Hyaline Casts U Random Total Protein Ur Random Sodium Urine Creatinine Protein/Creatinin Ratio Bronchial Fluid WBC Bronchial Fluid RBC Bronchial Neutrophils Stool Leukocytes, Qual Random Vancomycin Digoxin Salicylates Urine Opiates Screen Ur Barbiturates Screen Ur Phencyclidine Scrn Ur Amphetamines Screen U Benzodiazepines Scrn Urine Cocaine Screen U Marijuana (THC) Screen Ethyl Alcohol T.pallidum Ab (EIA) C. difficile Toxin A&B C. difficile Antigen C. difficile Interpret Coronavirus (PCR) COVID-19 (LINDEN) COVID-19 Clin Com Hepatitis A IgM Ab Hep Bs Antigen Hep Bs Antibody Hep B Core Total Ab Hepatitis C Ab (EIA) HIV 1&2 Ab/P24 Ag 4thGn Influenza Type A (PCR) Influenza Type B (PCR) RSV RNA Qual (PCR) SARS-CoV-2 IgG Ab Blood Type Antibody Screen 06/12/20 06/12/20 06/12/20 05:35 05:35 13:57 WBC RBC Hgb Hct MCV MCH MCHC RDW Plt Count MPV Immature Gran % (Auto) Neut % (Auto) Lymph % (Auto) [place] % (Auto) Eos % (Auto) Baso % (Auto) Lymph # (Auto) [place] # (Auto) Eos # (Auto) Baso # (Auto) Abs Immat Gran (auto) Absolute Neuts (auto) Absolute Nucleated RBC Nucleated RBC % (auto) Neutrophils % (Manual) Band Neutrophils % Lymphocytes % (Manual) Monocytes % (Manual) Abs Neuts (Manual) Lymphocytes # (Manual) Monocytes # (Manual) Nucleated RBCs Platelet Estimate Plt Morphology Comment RBC Morphology Polychromasia Microcytosis Macrocytosis Tear Drop Cells Elaine Cells Smear Tech's Comments Smear Path Review ESR PT INR APTT PTT (Heparin Protocol) 50.4 L 88.5 H D ABG pH ABG pCO2 ABG pO2 ABG HCO3 ABG O2 Saturation ABG Base Excess VBG pH 7.54 H VBG pCO2 40 VBG pO2 62 VBG HCO3 34 VBG O2 Saturation 92.6 VBG Base Excess 10.4 Oxygen Given Sodium Potassium Chloride Carbon Dioxide Anion Gap BUN Creatinine Estim Creat Clear Calc Estimated GFR POC Glucose Random Glucose Fasting Glucose Osmolality Lactic Acid Lactic Acid Fup @ 2Hr Lactic Acid Fup @ 4Hr Calcium Uric Acid Phosphorus Magnesium Total Bilirubin Direct Bilirubin AST ALT Alkaline Phosphatase Ammonia Lactate Dehydrogenase Total Creatine Kinase C-Reactive Protein B-Natriuretic Peptide Total Protein Albumin Lipase Vitamin B12 Vitamin B1 Procalcitonin Urine Color Urine Appearance Urine pH Ur Specific [place] Urine Protein Urine Glucose (UA) Urine Ketones Urine Blood Urine Nitrite Ur Leukocyte Esterase Urine RBC Urine WBC Ur Squamous Epith Cells Amorphous Sediment Urine Bacteria Hyaline Casts U Random Total Protein Ur Random Sodium Urine Creatinine Protein/Creatinin Ratio Bronchial Fluid WBC Bronchial Fluid RBC Bronchial Neutrophils Stool Leukocytes, Qual Random Vancomycin Digoxin Salicylates Urine Opiates Screen Ur Barbiturates Screen Ur Phencyclidine Scrn Ur Amphetamines Screen U Benzodiazepines Scrn Urine Cocaine Screen U Marijuana (THC) Screen Ethyl Alcohol T.pallidum Ab (EIA) C. difficile Toxin A&B C. difficile Antigen C. difficile Interpret Coronavirus (PCR) COVID-19 (LINDEN) COVID-19 Clin Com Hepatitis A IgM Ab Hep Bs Antigen Hep Bs Antibody Hep B Core Total Ab Hepatitis C Ab (EIA) HIV 1&2 Ab/P24 Ag 4thGn Influenza Type A (PCR) Influenza Type B (PCR) RSV RNA Qual (PCR) SARS-CoV-2 IgG Ab Blood Type Antibody Screen 06/12/20 06/13/20 06/13/20 21:25 03:37 05:30 WBC 13.4 H RBC 3.50 L Hgb 11.9 L Hct 37.6 L MCV 107.4 H MCH 34.0 H MCHC 31.6 RDW 14.4 Plt Count 200 MPV 12.5 H Immature Gran % (Auto) 0.6 H Neut % (Auto) 74.1 H Lymph % (Auto) 12.3 L [place] % (Auto) 10.8 Eos % (Auto) 1.8 Baso % (Auto) 0.4 Lymph # (Auto) 1.6 [place] # (Auto) 1.5 H Eos # (Auto) 0.2 Baso # (Auto) 0.1 Abs Immat Gran (auto) 0.08 H Absolute Neuts (auto) 9.9 H Absolute Nucleated RBC 0.000 Nucleated RBC % (auto) 0.0 Neutrophils % (Manual) Band Neutrophils % Lymphocytes % (Manual) Monocytes % (Manual) Abs Neuts (Manual) Lymphocytes # (Manual) Monocytes # (Manual) Nucleated RBCs Platelet Estimate Plt Morphology Comment RBC Morphology Polychromasia Microcytosis Macrocytosis Tear Drop Cells Elaine Cells Smear Tech's Comments Smear Path Review ESR PT INR APTT PTT (Heparin Protocol) 62.1 D 59.8 ABG pH ABG pCO2 ABG pO2 ABG HCO3 ABG O2 Saturation ABG Base Excess VBG pH VBG pCO2 VBG pO2 VBG HCO3 VBG O2 Saturation VBG Base Excess Oxygen Given Sodium Potassium Chloride Carbon Dioxide Anion Gap BUN Creatinine Estim Creat Clear Calc Estimated GFR POC Glucose Random Glucose Fasting Glucose Osmolality Lactic Acid Lactic Acid Fup @ 2Hr Lactic Acid Fup @ 4Hr Calcium Uric Acid Phosphorus Magnesium Total Bilirubin Direct Bilirubin AST ALT Alkaline Phosphatase Ammonia Lactate Dehydrogenase Total Creatine Kinase C-Reactive Protein B-Natriuretic Peptide Total Protein Albumin Lipase Vitamin B12 Vitamin B1 Procalcitonin Urine Color Urine Appearance Urine pH Ur Specific [place] Urine Protein Urine Glucose (UA) Urine Ketones Urine Blood Urine Nitrite Ur Leukocyte Esterase Urine RBC Urine WBC Ur Squamous Epith Cells Amorphous Sediment Urine Bacteria Hyaline Casts U Random Total Protein Ur Random Sodium Urine Creatinine Protein/Creatinin Ratio Bronchial Fluid WBC Bronchial Fluid RBC Bronchial Neutrophils Stool Leukocytes, Qual Random Vancomycin Digoxin Salicylates Urine Opiates Screen Ur Barbiturates Screen Ur Phencyclidine Scrn Ur Amphetamines Screen U Benzodiazepines Scrn Urine Cocaine Screen U Marijuana (THC) Screen Ethyl Alcohol T.pallidum Ab (EIA) C. difficile Toxin A&B C. difficile Antigen C. difficile Interpret Coronavirus (PCR) COVID-19 (LINDEN) COVID-19 Clin Com Hepatitis A IgM Ab Hep Bs Antigen Hep Bs Antibody Hep B Core Total Ab Hepatitis C Ab (EIA) HIV 1&2 Ab/P24 Ag 4thGn Influenza Type A (PCR) Influenza Type B (PCR) RSV RNA Qual (PCR) SARS-CoV-2 IgG Ab Blood Type Antibody Screen 06/13/20 06/13/20 06/14/20 05:30 05:30 05:09 WBC RBC Hgb Hct MCV MCH MCHC RDW Plt Count MPV Immature Gran % (Auto) Neut % (Auto) Lymph % (Auto) [place] % (Auto) Eos % (Auto) Baso % (Auto) Lymph # (Auto) [place] # (Auto) Eos # (Auto) Baso # (Auto) Abs Immat Gran (auto) Absolute Neuts (auto) Absolute Nucleated RBC Nucleated RBC % (auto) Neutrophils % (Manual) Band Neutrophils % Lymphocytes % (Manual) Monocytes % (Manual) Abs Neuts (Manual) Lymphocytes # (Manual) Monocytes # (Manual) Nucleated RBCs Platelet Estimate Plt Morphology Comment RBC Morphology Polychromasia Microcytosis Macrocytosis Tear Drop Cells Elaine Cells Smear Tech's Comments Smear Path Review ESR PT INR APTT PTT (Heparin Protocol) 40.5 L D ABG pH ABG pCO2 ABG pO2 ABG HCO3 ABG O2 Saturation ABG Base Excess VBG pH 7.42 VBG pCO2 59 VBG pO2 45 VBG HCO3 38 VBG O2 Saturation 78.4 VBG Base Excess 11.0 Oxygen Given Sodium 143 Potassium 3.6 Chloride 94 L Carbon Dioxide 37 H Anion Gap 16 BUN 19 H Creatinine 0.93 Estim Creat Clear Calc 120.1 Estimated GFR > 60 POC Glucose Random Glucose 126 H Fasting Glucose Osmolality Lactic Acid Lactic Acid Fup @ 2Hr Lactic Acid Fup @ 4Hr Calcium 9.7 Uric Acid Phosphorus 4.9 H Magnesium 1.9 Total Bilirubin 1.9 H Direct Bilirubin AST 64 H ALT 29 Alkaline Phosphatase 95 Ammonia Lactate Dehydrogenase Total Creatine Kinase C-Reactive Protein B-Natriuretic Peptide Total Protein 6.7 Albumin 3.4 L Lipase Vitamin B12 Vitamin B1 Procalcitonin Urine Color Urine Appearance Urine pH Ur Specific [place] Urine Protein Urine Glucose (UA) Urine Ketones Urine Blood Urine Nitrite Ur Leukocyte Esterase Urine RBC Urine WBC Ur Squamous Epith Cells Amorphous Sediment Urine Bacteria Hyaline Casts U Random Total Protein Ur Random Sodium Urine Creatinine Protein/Creatinin Ratio Bronchial Fluid WBC Bronchial Fluid RBC Bronchial Neutrophils Stool Leukocytes, Qual Random Vancomycin Digoxin Salicylates Urine Opiates Screen Ur Barbiturates Screen Ur Phencyclidine Scrn Ur Amphetamines Screen U Benzodiazepines Scrn Urine Cocaine Screen U Marijuana (THC) Screen Ethyl Alcohol T.pallidum Ab (EIA) C. difficile Toxin A&B C. difficile Antigen C. difficile Interpret Coronavirus (PCR) COVID-19 (LINDEN) COVID-19 Clin Com Hepatitis A IgM Ab Hep Bs Antigen Hep Bs Antibody Hep B Core Total Ab Hepatitis C Ab (EIA) HIV 1&2 Ab/P24 Ag 4thGn Influenza Type A (PCR) Influenza Type B (PCR) RSV RNA Qual (PCR) SARS-CoV-2 IgG Ab Blood Type Antibody Screen 06/14/20 06/14/20 06/14/20 05:09 05:09 05:09 WBC 14.2 H RBC 3.50 L Hgb 12.0 L Hct 37.0 L MCV 105.7 H MCH 34.3 H MCHC 32.4 RDW 14.6 Plt Count 220 MPV 12.5 H Immature Gran % (Auto) 0.6 H Neut % (Auto) 76.1 H Lymph % (Auto) 11.6 L [place] % (Auto) 9.9 Eos % (Auto) 1.5 Baso % (Auto) 0.3 Lymph # (Auto) 1.7 [place] # (Auto) 1.4 H Eos # (Auto) 0.2 Baso # (Auto) 0.0 Abs Immat Gran (auto) 0.08 H Absolute Neuts (auto) 10.8 H Absolute Nucleated RBC 0.000 Nucleated RBC % (auto) 0.0 Neutrophils % (Manual) Band Neutrophils % Lymphocytes % (Manual) Monocytes % (Manual) Abs Neuts (Manual) Lymphocytes # (Manual) Monocytes # (Manual) Nucleated RBCs Platelet Estimate Plt Morphology Comment RBC Morphology Polychromasia Microcytosis Macrocytosis Tear Drop Cells [place] Cells Smear Tech's Comments Smear Path Review ESR PT INR APTT PTT (Heparin Protocol) ABG pH ABG pCO2 ABG pO2 ABG HCO3 ABG O2 Saturation ABG Base Excess VBG pH 7.46 H VBG pCO2 54 VBG pO2 63 VBG HCO3 37 VBG O2 Saturation 90.9 VBG Base Excess 11.6 Oxygen Given Sodium 141 Potassium 4.0 Chloride 93 L Carbon Dioxide 39 H Anion Gap 13 BUN 22 H Creatinine 0.95 Estim Creat Clear Calc 117.6 Estimated GFR > 60 POC Glucose Random Glucose 134 H Fasting Glucose Osmolality Lactic Acid Lactic Acid Fup @ 2Hr Lactic Acid Fup @ 4Hr Calcium 9.5 Uric Acid Phosphorus 4.2 Magnesium 1.9 Total Bilirubin Direct Bilirubin AST ALT Alkaline Phosphatase Ammonia Lactate Dehydrogenase Total Creatine Kinase C-Reactive Protein B-Natriuretic Peptide Total Protein Albumin 3.2 L Lipase Vitamin B12 Vitamin B1 Procalcitonin Urine Color Urine Appearance Urine pH Ur Specific [place] Urine Protein Urine Glucose (UA) Urine Ketones Urine Blood Urine Nitrite Ur Leukocyte Esterase Urine RBC Urine WBC Ur Squamous Epith Cells Amorphous Sediment Urine Bacteria Hyaline Casts U Random Total Protein Ur Random Sodium Urine Creatinine Protein/Creatinin Ratio Bronchial Fluid WBC Bronchial Fluid RBC Bronchial Neutrophils Stool Leukocytes, Qual Random Vancomycin Digoxin Salicylates Urine Opiates Screen Ur Barbiturates Screen Ur Phencyclidine Scrn Ur Amphetamines Screen U Benzodiazepines Scrn Urine Cocaine Screen U Marijuana (THC) Screen Ethyl Alcohol T.pallidum Ab (EIA) C. difficile Toxin A&B C. difficile Antigen C. difficile Interpret Coronavirus (PCR) COVID-19 (LINDEN) COVID-19 Clin Com Hepatitis A IgM Ab Hep Bs Antigen Hep Bs Antibody Hep B Core Total Ab Hepatitis C Ab (EIA) HIV 1&2 Ab/P24 Ag 4thGn Influenza Type A (PCR) Influenza Type B (PCR) RSV RNA Qual (PCR) SARS-CoV-2 IgG Ab Blood Type Antibody Screen 06/14/20 06/15/20 06/15/20 05:09 05:16 05:16 WBC 15.5 H RBC 3.58 L Hgb 12.0 L Hct 37.9 L MCV 105.9 H MCH 33.5 H MCHC 31.7 RDW 14.4 Plt Count 246 MPV 12.3 Immature Gran % (Auto) 0.5 H Neut % (Auto) 77.0 H Lymph % (Auto) 11.0 L [place] % (Auto) 10.1 Eos % (Auto) 1.1 Baso % (Auto) 0.3 Lymph # (Auto) 1.7 [place] # (Auto) 1.6 H Eos # (Auto) 0.2 Baso # (Auto) 0.0 Abs Immat Gran (auto) 0.08 H Absolute Neuts (auto) 11.9 H Absolute Nucleated RBC 0.000 Nucleated RBC % (auto) 0.0 Neutrophils % (Manual) Band Neutrophils % Lymphocytes % (Manual) Monocytes % (Manual) Abs Neuts (Manual) Lymphocytes # (Manual) Monocytes # (Manual) Nucleated RBCs Platelet Estimate Plt Morphology Comment RBC Morphology Polychromasia Microcytosis Macrocytosis Tear Drop Cells [place] Cells Smear Tech's Comments VERIFIED Smear Path Review ESR PT INR APTT PTT (Heparin Protocol) ABG pH ABG pCO2 ABG pO2 ABG HCO3 ABG O2 Saturation ABG Base Excess VBG pH VBG pCO2 VBG pO2 VBG HCO3 VBG O2 Saturation VBG Base Excess Oxygen Given Sodium 140 Potassium 3.9 Chloride 92 L Carbon Dioxide 40 H* Anion Gap 12 BUN 23 H Creatinine 0.90 Estim Creat Clear Calc 124.2 Estimated GFR > 60 POC Glucose Random Glucose 132 H Fasting Glucose Osmolality Lactic Acid Lactic Acid Fup @ 2Hr Lactic Acid Fup @ 4Hr Calcium 9.2 Uric Acid Phosphorus 4.0 Magnesium 2.0 Total Bilirubin 2.3 H Direct Bilirubin AST 52 H ALT 24 Alkaline Phosphatase 105 Ammonia Lactate Dehydrogenase Total Creatine Kinase C-Reactive Protein B-Natriuretic Peptide Total Protein 7.0 Albumin 3.1 L Lipase Vitamin B12 Vitamin B1 Procalcitonin Urine Color Urine Appearance Urine pH Ur Specific [place] Urine Protein Urine Glucose (UA) Urine Ketones Urine Blood Urine Nitrite Ur Leukocyte Esterase Urine RBC Urine WBC Ur Squamous Epith Cells Amorphous Sediment Urine Bacteria Hyaline Casts U Random Total Protein Ur Random Sodium Urine Creatinine Protein/Creatinin Ratio Bronchial Fluid WBC Bronchial Fluid RBC Bronchial Neutrophils Stool Leukocytes, Qual Random Vancomycin Digoxin 0.7 L Salicylates Urine Opiates Screen Ur Barbiturates Screen Ur Phencyclidine Scrn Ur Amphetamines Screen U Benzodiazepines Scrn Urine Cocaine Screen U Marijuana (THC) Screen Ethyl Alcohol T.pallidum Ab (EIA) C. difficile Toxin A&B C. difficile Antigen C. difficile Interpret Coronavirus (PCR) COVID-19 (LINDEN) COVID-19 Clin Com Hepatitis A IgM Ab Hep Bs Antigen Hep Bs Antibody Hep B Core Total Ab Hepatitis C Ab (EIA) HIV 1&2 Ab/P24 Ag 4thGn Influenza Type A (PCR) Influenza Type B (PCR) RSV RNA Qual (PCR) SARS-CoV-2 IgG Ab Blood Type Antibody Screen 06/15/20 06/16/20 06/16/20 05:16 05:29 05:29 WBC 14.1 H RBC 3.53 L Hgb 11.8 L Hct 37.1 L MCV 105.1 H MCH 33.4 H MCHC 31.8 RDW 14.6 Plt Count 255 MPV 12.1 Immature Gran % (Auto) 0.5 H Neut % (Auto) 76.4 H Lymph % (Auto) 12.5 L [place] % (Auto) 8.8 Eos % (Auto) 1.4 Baso % (Auto) 0.4 Lymph # (Auto) 1.8 [place] # (Auto) 1.2 Eos # (Auto) 0.2 Baso # (Auto) 0.1 Abs Immat Gran (auto) 0.07 H Absolute Neuts (auto) 10.7 H Absolute Nucleated RBC 0.000 Nucleated RBC % (auto) 0.0 Neutrophils % (Manual) Band Neutrophils % Lymphocytes % (Manual) Monocytes % (Manual) Abs Neuts (Manual) Lymphocytes # (Manual) Monocytes # (Manual) Nucleated RBCs Platelet Estimate Plt Morphology Comment RBC Morphology Polychromasia Microcytosis Macrocytosis Tear Drop Cells [place] Cells Smear Tech's Comments Smear Path Review ESR PT INR APTT PTT (Heparin Protocol) ABG pH ABG pCO2 ABG pO2 ABG HCO3 ABG O2 Saturation ABG Base Excess VBG pH 7.47 H VBG pCO2 47 VBG pO2 52 VBG HCO3 34 VBG O2 Saturation 86.7 VBG Base Excess 8.7 Oxygen Given Sodium 141 Potassium 3.4 Chloride 94 L Carbon Dioxide 37 H Anion Gap 13 BUN 26 H Creatinine 0.97 Estim Creat Clear Calc 115.2 Estimated GFR > 60 POC Glucose Random Glucose 142 H Fasting Glucose Osmolality Lactic Acid Lactic Acid Fup @ 2Hr Lactic Acid Fup @ 4Hr Calcium 9.3 Uric Acid Phosphorus 3.9 Magnesium 2.1 Total Bilirubin 2.2 H Direct Bilirubin AST 85 H ALT 36 Alkaline Phosphatase 124 H Ammonia Lactate Dehydrogenase Total Creatine Kinase C-Reactive Protein B-Natriuretic Peptide Total Protein 6.9 Albumin 3.1 L Lipase Vitamin B12 Vitamin B1 Procalcitonin Urine Color Urine Appearance Urine pH Ur Specific [place] Urine Protein Urine Glucose (UA) Urine Ketones Urine Blood Urine Nitrite Ur Leukocyte Esterase Urine RBC Urine WBC Ur Squamous Epith Cells Amorphous Sediment Urine Bacteria Hyaline Casts U Random Total Protein Ur Random Sodium Urine Creatinine Protein/Creatinin Ratio Bronchial Fluid WBC Bronchial Fluid RBC Bronchial Neutrophils Stool Leukocytes, Qual Random Vancomycin Digoxin Salicylates Urine Opiates Screen Ur Barbiturates Screen Ur Phencyclidine Scrn Ur Amphetamines Screen U Benzodiazepines Scrn Urine Cocaine Screen U Marijuana (THC) Screen Ethyl Alcohol T.pallidum Ab (EIA) C. difficile Toxin A&B C. difficile Antigen C. difficile Interpret Coronavirus (PCR) COVID-19 (LINDEN) COVID-19 Clin Com Hepatitis A IgM Ab Hep Bs Antigen Hep Bs Antibody Hep B Core Total Ab Hepatitis C Ab (EIA) HIV 1&2 Ab/P24 Ag 4thGn Influenza Type A (PCR) Influenza Type B (PCR) RSV RNA Qual (PCR) SARS-CoV-2 IgG Ab Blood Type Antibody Screen 06/16/20 06/16/20 06/16/20 05:29 14:18 18:53 WBC RBC Hgb Hct MCV MCH MCHC RDW Plt Count MPV Immature Gran % (Auto) Neut % (Auto) Lymph % (Auto) [place] % (Auto) Eos % (Auto) Baso % (Auto) Lymph # (Auto) [place] # (Auto) Eos # (Auto) Baso # (Auto) Abs Immat Gran (auto) Absolute Neuts (auto) Absolute Nucleated RBC Nucleated RBC % (auto) Neutrophils % (Manual) Band Neutrophils % Lymphocytes % (Manual) Monocytes % (Manual) Abs Neuts (Manual) Lymphocytes # (Manual) Monocytes # (Manual) Nucleated RBCs Platelet Estimate Plt Morphology Comment RBC Morphology Polychromasia Microcytosis Macrocytosis Tear Drop Cells [place] Cells Smear Tech's Comments Smear Path Review ESR PT INR APTT PTT (Heparin Protocol) ABG pH ABG pCO2 ABG pO2 ABG HCO3 ABG O2 Saturation ABG Base Excess VBG pH 7.42 VBG pCO2 63 VBG pO2 43 VBG HCO3 40 VBG O2 Saturation 77.2 VBG Base Excess 12.5 Oxygen Given Sodium Potassium Chloride Carbon Dioxide Anion Gap BUN Creatinine Estim Creat Clear Calc Estimated GFR POC Glucose Random Glucose Fasting Glucose Osmolality Lactic Acid Lactic Acid Fup @ 2Hr Lactic Acid Fup @ 4Hr Calcium Uric Acid Phosphorus Magnesium Total Bilirubin Direct Bilirubin AST ALT Alkaline Phosphatase Ammonia Lactate Dehydrogenase Total Creatine Kinase C-Reactive Protein B-Natriuretic Peptide Total Protein Albumin Lipase Vitamin B12 Vitamin B1 Procalcitonin Urine Color Urine Appearance Urine pH Ur Specific [place] Urine Protein Urine Glucose (UA) Urine Ketones Urine Blood Urine Nitrite Ur Leukocyte Esterase Urine RBC Urine WBC Ur Squamous Epith Cells Amorphous Sediment Urine Bacteria Hyaline Casts U Random Total Protein Ur Random Sodium Urine Creatinine Protein/Creatinin Ratio Bronchial Fluid WBC 17 Bronchial Fluid RBC 0 Bronchial Neutrophils 100 Stool Leukocytes, Qual Random Vancomycin Digoxin Salicylates Urine Opiates Screen Ur Barbiturates Screen Ur Phencyclidine Scrn Ur Amphetamines Screen U Benzodiazepines Scrn Urine Cocaine Screen U Marijuana (THC) Screen Ethyl Alcohol T.pallidum Ab (EIA) C. difficile Toxin A&B C. difficile Antigen C. difficile Interpret Coronavirus (PCR) COVID-19 (LINDEN) COVID-19 Clin Com Hepatitis A IgM Ab Hep Bs Antigen Hep Bs Antibody Hep B Core Total Ab Hepatitis C Ab (EIA) HIV 1&2 Ab/P24 Ag 4thGn Influenza Type A (PCR) Influenza Type B (PCR) RSV RNA Qual (PCR) SARS-CoV-2 IgG Ab Blood Type O Negative Antibody Screen NEGATIVE 06/17/20 06/17/20 06/17/20 01:29 06:08 06:08 WBC 14.6 H RBC 3.50 L Hgb 11.9 L Hct 37.6 L MCV 107.4 H MCH 34.0 H MCHC 31.6 RDW 14.8 Plt Count 280 MPV 12.5 H Immature Gran % (Auto) 0.3 Neut % (Auto) 79.9 H Lymph % (Auto) 10.4 L [place] % (Auto) 7.5 Eos % (Auto) 1.3 Baso % (Auto) 0.6 Lymph # (Auto) 1.5 [place] # (Auto) 1.1 Eos # (Auto) 0.2 Baso # (Auto) 0.1 Abs Immat Gran (auto) 0.05 H Absolute Neuts (auto) 11.6 H Absolute Nucleated RBC 0.000 Nucleated RBC % (auto) 0.0 Neutrophils % (Manual) Band Neutrophils % Lymphocytes % (Manual) Monocytes % (Manual) Abs Neuts (Manual) Lymphocytes # (Manual) Monocytes # (Manual) Nucleated RBCs Platelet Estimate Plt Morphology Comment RBC Morphology Polychromasia Microcytosis Macrocytosis Tear Drop Cells [place] Cells Smear Tech's Comments Smear Path Review ESR PT 13.8 H INR 1.2 H APTT PTT (Heparin Protocol) ABG pH ABG pCO2 ABG pO2 ABG HCO3 ABG O2 Saturation ABG Base Excess VBG pH VBG pCO2 VBG pO2 VBG HCO3 VBG O2 Saturation VBG Base Excess Oxygen Given Sodium Potassium Chloride Carbon Dioxide Anion Gap BUN Creatinine Estim Creat Clear Calc Estimated GFR POC Glucose Random Glucose Fasting Glucose Osmolality Lactic Acid Lactic Acid Fup @ 2Hr Lactic Acid Fup @ 4Hr Calcium Uric Acid Phosphorus Magnesium Total Bilirubin Direct Bilirubin AST ALT Alkaline Phosphatase Ammonia Lactate Dehydrogenase Total Creatine Kinase C-Reactive Protein B-Natriuretic Peptide Total Protein Albumin Lipase Vitamin B12 Vitamin B1 Procalcitonin Urine Color [place] Urine Appearance CLEAR Urine pH 8.5 H Ur Specific [place] 1.015 Urine Protein 1+ H Urine Glucose (UA) NEG Urine Ketones NEG Urine Blood 1+ H Urine Nitrite NEG Ur Leukocyte Esterase NEG Urine RBC 1-4 Urine WBC 1-4 Ur Squamous Epith Cells NONE Amorphous Sediment Urine Bacteria TRACE Hyaline Casts 0-2 U Random Total Protein Ur Random Sodium Urine Creatinine Protein/Creatinin Ratio Bronchial Fluid WBC Bronchial Fluid RBC Bronchial Neutrophils Stool Leukocytes, Qual Random Vancomycin Digoxin Salicylates Urine Opiates Screen Ur Barbiturates Screen Ur Phencyclidine Scrn Ur Amphetamines Screen U Benzodiazepines Scrn Urine Cocaine Screen U Marijuana (THC) Screen Ethyl Alcohol T.pallidum Ab (EIA) C. difficile Toxin A&B C. difficile Antigen C. difficile Interpret Coronavirus (PCR) COVID-19 (LINDEN) COVID-19 Clin Com Hepatitis A IgM Ab Hep Bs Antigen Hep Bs Antibody Hep B Core Total Ab Hepatitis C Ab (EIA) HIV 1&2 Ab/P24 Ag 4thGn Influenza Type A (PCR) Influenza Type B (PCR) RSV RNA Qual (PCR) SARS-CoV-2 IgG Ab Blood Type Antibody Screen 06/17/20 06/17/20 06/17/20 06:08 06:08 06:08 WBC RBC Hgb Hct MCV MCH MCHC RDW Plt Count MPV Immature Gran % (Auto) Neut % (Auto) Lymph % (Auto) [place] % (Auto) Eos % (Auto) Baso % (Auto) Lymph # (Auto) [place] # (Auto) Eos # (Auto) Baso # (Auto) Abs Immat Gran (auto) Absolute Neuts (auto) Absolute Nucleated RBC Nucleated RBC % (auto) Neutrophils % (Manual) Band Neutrophils % Lymphocytes % (Manual) Monocytes % (Manual) Abs Neuts (Manual) Lymphocytes # (Manual) Monocytes # (Manual) Nucleated RBCs Platelet Estimate Plt Morphology Comment RBC Morphology Polychromasia Microcytosis Macrocytosis Tear Drop Cells [place] Cells Smear Tech's Comments Smear Path Review ESR PT INR APTT PTT (Heparin Protocol) ABG pH ABG pCO2 ABG pO2 ABG HCO3 ABG O2 Saturation ABG Base Excess VBG pH VBG pCO2 VBG pO2 VBG HCO3 VBG O2 Saturation VBG Base Excess Oxygen Given Sodium 142 Potassium 3.5 Chloride 99 Carbon Dioxide 33 H Anion Gap 14 BUN 30 H Creatinine 1.05 Estim Creat Clear Calc 106.4 Estimated GFR > 60 POC Glucose Random Glucose 116 H Fasting Glucose Osmolality Lactic Acid 0.7 Lactic Acid Fup @ 2Hr Lactic Acid Fup @ 4Hr Calcium 9.2 Uric Acid Phosphorus 4.5 Magnesium Total Bilirubin 2.2 H Direct Bilirubin AST 68 H ALT 31 Alkaline Phosphatase 133 H Ammonia Lactate Dehydrogenase Total Creatine Kinase C-Reactive Protein B-Natriuretic Peptide Total Protein 6.9 Albumin 3.0 L Lipase Vitamin B12 Vitamin B1 Procalcitonin 0.31 Urine Color Urine Appearance Urine pH Ur Specific [place] Urine Protein Urine Glucose (UA) Urine Ketones Urine Blood Urine Nitrite Ur Leukocyte Esterase Urine RBC Urine WBC Ur Squamous Epith Cells Amorphous Sediment Urine Bacteria Hyaline Casts U Random Total Protein Ur Random Sodium Urine Creatinine Protein/Creatinin Ratio Bronchial Fluid WBC Bronchial Fluid RBC Bronchial Neutrophils Stool Leukocytes, Qual Random Vancomycin Digoxin Salicylates Urine Opiates Screen Ur Barbiturates Screen Ur Phencyclidine Scrn Ur Amphetamines Screen U Benzodiazepines Scrn Urine Cocaine Screen U Marijuana (THC) Screen Ethyl Alcohol T.pallidum Ab (EIA) C. difficile Toxin A&B C. difficile Antigen C. difficile Interpret Coronavirus (PCR) COVID-19 (LINDEN) COVID-19 Clin Com Hepatitis A IgM Ab Hep Bs Antigen Hep Bs Antibody Hep B Core Total Ab Hepatitis C Ab (EIA) HIV 1&2 Ab/P24 Ag 4thGn Influenza Type A (PCR) Influenza Type B (PCR) RSV RNA Qual (PCR) SARS-CoV-2 IgG Ab Blood Type Antibody Screen 06/17/20 06/18/2006/18/20 06:08 05:26 05:26 WBC 14.2 H RBC 3.48 L Hgb 11.5 L Hct 37.2 L MCV 106.9 H MCH 33.0 MCHC 30.9 L RDW 14.7 Plt Count 292 MPV 12.4 Immature Gran % (Auto) 0.5 H Neut % (Auto) 74.2 H Lymph % (Auto) 14.5 L [place] % (Auto) 8.9 Eos % (Auto) 1.3 Baso % (Auto) 0.6 Lymph # (Auto) 2.1 [place] # (Auto) 1.3 H Eos # (Auto) 0.2 Baso # (Auto) 0.1 Abs Immat Gran (auto) 0.07 H Absolute Neuts (auto) 10.5 H Absolute Nucleated RBC 0.000 Nucleated RBC % (auto) 0.0 Neutrophils % (Manual) Band Neutrophils % Lymphocytes % (Manual) Monocytes % (Manual) Abs Neuts (Manual) Lymphocytes # (Manual) Monocytes # (Manual) Nucleated RBCs Platelet Estimate Plt Morphology Comment RBC Morphology Polychromasia Microcytosis Macrocytosis Tear Drop Cells [place] Cells Smear Tech's Comments Smear Path Review ESR PT INR APTT PTT (Heparin Protocol) ABG pH ABG pCO2 ABG pO2 ABG HCO3 ABG O2 Saturation ABG Base Excess VBG pH 7.44 H VBG pCO2 48 VBG pO2 71 VBG HCO3 31 VBG O2 Saturation 94.3 VBG Base Excess 6.2 Oxygen Given Sodium 145 Potassium 3.1 L Chloride 101 Carbon Dioxide 36 H Anion Gap 11 L BUN 30 H Creatinine 1.03 Estim Creat Clear Calc 108.5 Estimated GFR > 60 POC Glucose Random Glucose 133 H Fasting Glucose Osmolality Lactic Acid Lactic Acid Fup @ 2Hr Lactic Acid Fup @ 4Hr Calcium 9.1 Uric Acid Phosphorus 3.6 Magnesium Total Bilirubin 1.9 H Direct Bilirubin AST 58 H ALT 25 Alkaline Phosphatase 138 H Ammonia Lactate Dehydrogenase Total Creatine Kinase C-Reactive Protein B-Natriuretic Peptide Total Protein 7.0 Albumin 3.0 L Lipase Vitamin B12 Vitamin B1 Procalcitonin Urine Color Urine Appearance Urine pH Ur Specific [place] Urine Protein Urine Glucose (UA) Urine Ketones Urine Blood Urine Nitrite Ur Leukocyte Esterase Urine RBC Urine WBC Ur Squamous Epith Cells Amorphous Sediment Urine Bacteria Hyaline Casts U Random Total Protein Ur Random Sodium Urine Creatinine Protein/Creatinin Ratio Bronchial Fluid WBC Bronchial Fluid RBC Bronchial Neutrophils Stool Leukocytes, Qual Random Vancomycin Digoxin Salicylates Urine Opiates Screen Ur Barbiturates Screen Ur Phencyclidine Scrn Ur Amphetamines Screen U Benzodiazepines Scrn Urine Cocaine Screen U Marijuana (THC) Screen Ethyl Alcohol T.pallidum Ab (EIA) C. difficile Toxin A&B C. difficile Antigen C. difficile Interpret Coronavirus (PCR) COVID-19 (LINDEN) COVID-19 Clin Com Hepatitis A IgM Ab Hep Bs Antigen Hep Bs Antibody Hep B Core Total Ab Hepatitis C Ab (EIA) HIV 1&2 Ab/P24 Ag 4thGn Influenza Type A (PCR) Influenza Type B (PCR) RSV RNA Qual (PCR) SARS-CoV-2 IgG Ab Blood Type Antibody Screen 06/18/20 06/19/20 06/19/20 05:26 05:19 05:19 WBC 13.7 H RBC 3.57 L Hgb 11.8 L Hct 37.9 L MCV 106.2 H MCH 33.1 H MCHC 31.1 RDW 14.5 Plt Count 291 MPV 12.7 H Immature Gran % (Auto) 0.7 H Neut % (Auto) 71.9 Lymph % (Auto) 16.8 L [place] % (Auto) 8.7 Eos % (Auto) 1.2 Baso % (Auto) 0.7 Lymph # (Auto) 2.3 [place] # (Auto) 1.2 Eos # (Auto) 0.2 Baso # (Auto) 0.1 Abs Immat Gran (auto) 0.09 H Absolute Neuts (auto) 9.8 H Absolute Nucleated RBC 0.000 Nucleated RBC % (auto) 0.0 Neutrophils % (Manual) Band Neutrophils % Lymphocytes % (Manual) Monocytes % (Manual) Abs Neuts (Manual) Lymphocytes # (Manual) Monocytes # (Manual) Nucleated RBCs Platelet Estimate Plt Morphology Comment RBC Morphology Polychromasia Microcytosis Macrocytosis Tear Drop Cells [place] Cells Smear Tech's Comments Smear Path Review ESR PT INR APTT PTT (Heparin Protocol) ABG pH ABG pCO2 ABG pO2 ABG HCO3 ABG O2 Saturation ABG Base Excess VBG pH 7.38 VBG pCO2 60 VBG pO2 42 VBG HCO3 34 VBG O2 Saturation 75.8 VBG Base Excess 6.7 Oxygen Given Sodium 148 H Potassium 3.6 Chloride 107 Carbon Dioxide 30 H Anion Gap 15 BUN 34 H Creatinine 1.10 Estim Creat Clear Calc 101.6 Estimated GFR > 60 POC Glucose Random Glucose 143 H Fasting Glucose Osmolality Lactic Acid Lactic Acid Fup @ 2Hr Lactic Acid Fup @ 4Hr Calcium 9.5 Uric Acid Phosphorus Magnesium 2.3 Total Bilirubin Direct Bilirubin AST ALT Alkaline Phosphatase Ammonia Lactate Dehydrogenase Total Creatine Kinase C-Reactive Protein B-Natriuretic Peptide Total Protein Albumin Lipase Vitamin B12 Vitamin B1 Procalcitonin Urine Color Urine Appearance Urine pH Ur Specific [place] Urine Protein Urine Glucose (UA) Urine Ketones Urine Blood Urine Nitrite Ur Leukocyte Esterase Urine RBC Urine WBC Ur Squamous Epith Cells Amorphous Sediment Urine Bacteria Hyaline Casts U Random Total Protein Ur Random Sodium Urine Creatinine Protein/Creatinin Ratio Bronchial Fluid WBC Bronchial Fluid RBC Bronchial Neutrophils Stool Leukocytes, Qual Random Vancomycin Digoxin Salicylates Urine Opiates Screen Ur Barbiturates Screen Ur Phencyclidine Scrn Ur Amphetamines Screen U Benzodiazepines Scrn Urine Cocaine Screen U Marijuana (THC) Screen Ethyl Alcohol T.pallidum Ab (EIA) C. difficile Toxin A&B C. difficile Antigen C. difficile Interpret Coronavirus (PCR) COVID-19 (LINDEN) COVID-19 Clin Com Hepatitis A IgM Ab Hep Bs Antigen Hep Bs Antibody Hep B Core Total Ab Hepatitis C Ab (EIA) HIV 1&2 Ab/P24 Ag 4thGn Influenza Type A (PCR) Influenza Type B (PCR) RSV RNA Qual (PCR) SARS-CoV-2 IgG Ab Blood Type Antibody Screen 06/19/20 06/20/20 06/20/20 05:19 05:29 05:29 WBC RBC Hgb Hct MCV MCH MCHC RDW Plt Count MPV Immature Gran % (Auto) Neut % (Auto) Lymph % (Auto) [place] % (Auto) Eos % (Auto) Baso % (Auto) Lymph # (Auto) [place] # (Auto) Eos # (Auto) Baso # (Auto) Abs Immat Gran (auto) Absolute Neuts (auto) Absolute Nucleated RBC Nucleated RBC % (auto) Neutrophils % (Manual) Band Neutrophils % Lymphocytes % (Manual) Monocytes % (Manual) Abs Neuts (Manual) Lymphocytes # (Manual) Monocytes # (Manual) Nucleated RBCs Platelet Estimate Plt Morphology Comment RBC Morphology Polychromasia Microcytosis Macrocytosis Tear Drop Cells [place] Cells Smear Tech's Comments Smear Path Review ESR PT INR APTT PTT (Heparin Protocol) ABG pH ABG pCO2 ABG pO2 ABG HCO3 ABG O2 Saturation ABG Base Excess VBG pH 7.42 7.41 VBG pCO2 48 46 VBG pO2 44 45 VBG HCO3 31 28 VBG O2 Saturation 78.3 81.0 VBG Base Excess 5.3 2.9 Oxygen Given Sodium Potassium Chloride Carbon Dioxide Anion Gap BUN Creatinine Estim Creat Clear Calc Estimated GFR POC Glucose Random Glucose Fasting Glucose Osmolality Lactic Acid Lactic Acid Fup @ 2Hr Lactic Acid Fup @ 4Hr Calcium Uric Acid Phosphorus Magnesium Total Bilirubin Direct Bilirubin AST ALT Alkaline Phosphatase Ammonia Lactate Dehydrogenase Total Creatine Kinase C-Reactive Protein B-Natriuretic Peptide Total Protein Albumin Lipase Vitamin B12 Vitamin B1 Procalcitonin Urine Color Urine Appearance Urine pH Ur Specific [place] Urine Protein Urine Glucose (UA) Urine Ketones Urine Blood Urine Nitrite Ur Leukocyte Esterase Urine RBC Urine WBC Ur Squamous Epith Cells Amorphous Sediment Urine Bacteria Hyaline Casts U Random Total Protein Ur Random Sodium Urine Creatinine Protein/Creatinin Ratio Bronchial Fluid WBC Bronchial Fluid RBC Bronchial Neutrophils Stool Leukocytes, Qual Random Vancomycin Digoxin 1.1 Salicylates Urine Opiates Screen Ur Barbiturates Screen Ur Phencyclidine Scrn Ur Amphetamines Screen U Benzodiazepines Scrn Urine Cocaine Screen U Marijuana (THC) Screen Ethyl Alcohol T.pallidum Ab (EIA) C. difficile Toxin A&B C. difficile Antigen C. difficile Interpret Coronavirus (PCR) COVID-19 (LINDEN) COVID-19 Clin Com Hepatitis A IgM Ab Hep Bs Antigen Hep Bs Antibody Hep B Core Total Ab Hepatitis C Ab (EIA) HIV 1&2 Ab/P24 Ag 4thGn Influenza Type A (PCR) Influenza Type B (PCR) RSV RNA Qual (PCR) SARS-CoV-2 IgG Ab Blood Type Antibody Screen 06/20/20 06/21/20 06/21/20 05:29 05:30 05:30 WBC 11.9 H 11.6 H RBC 3.58 L 3.60 L Hgb 11.9 L 11.9 L Hct 38.3 L 38.2 L MCV 107.0 H 106.1 H MCH 33.2 H 33.1 H MCHC 31.1 31.2 RDW 14.8 14.7 Plt Count 295 315 MPV 12.6 H 13.3 H Immature Gran % (Auto) 0.4 0.4 Neut % (Auto) 71.5 71.1 Lymph % (Auto) 15.5 L 14.2 L [place] % (Auto) 9.2 10.0 Eos % (Auto) 2.7 3.5 Baso % (Auto) 0.7 0.8 Lymph # (Auto) 1.8 1.7 [place] # (Auto) 1.1 1.2 Eos # (Auto) 0.3 0.4 Baso # (Auto) 0.1 0.1 Abs Immat Gran (auto) 0.05 H 0.05 H Absolute Neuts (auto) 8.5 H 8.2 Absolute Nucleated RBC 0.000 0.000 Nucleated RBC % (auto) 0.0 0.0 Neutrophils % (Manual) Band Neutrophils % Lymphocytes % (Manual) Monocytes % (Manual) Abs Neuts (Manual) Lymphocytes # (Manual) Monocytes # (Manual) Nucleated RBCs Platelet Estimate Plt Morphology Comment RBC Morphology Polychromasia Microcytosis Macrocytosis Tear Drop Cells Elaine Cells Smear Tech's Comments Smear Path Review ESR PT INR APTT PTT (Heparin Protocol) ABG pH ABG pCO2 ABG pO2 ABG HCO3 ABG O2 Saturation ABG Base Excess VBG pH VBG pCO2 VBG pO2 VBG HCO3 VBG O2 Saturation VBG Base Excess Oxygen Given Sodium 143 Potassium 3.7 Chloride 106 Carbon Dioxide 25 Anion Gap 16 BUN 42 H Creatinine 1.17 Estim Creat Clear Calc 95.5 Estimated GFR > 60 POC Glucose Random Glucose 187 H Fasting Glucose Osmolality Lactic Acid Lactic Acid Fup @ 2Hr Lactic Acid Fup @ 4Hr Calcium 8.7 D Uric Acid Phosphorus 4.6 H Magnesium 2.1 Total Bilirubin 1.6 H Direct Bilirubin AST 94 H ALT 46 H Alkaline Phosphatase 164 H Ammonia Lactate Dehydrogenase Total Creatine Kinase C-Reactive Protein B-Natriuretic Peptide Total Protein 7.0 Albumin 2.8 L Lipase Vitamin B12 Vitamin B1 Procalcitonin Urine Color Urine Appearance Urine pH Ur Specific [place] Urine Protein Urine Glucose (UA) Urine Ketones Urine Blood Urine Nitrite Ur Leukocyte Esterase Urine RBC Urine WBC Ur Squamous Epith Cells Amorphous Sediment Urine Bacteria Hyaline Casts U Random Total Protein Ur Random Sodium Urine Creatinine Protein/Creatinin Ratio Bronchial Fluid WBC Bronchial Fluid RBC Bronchial Neutrophils Stool Leukocytes, Qual Random Vancomycin Digoxin Salicylates Urine Opiates Screen Ur Barbiturates Screen Ur Phencyclidine Scrn Ur Amphetamines Screen U Benzodiazepines Scrn Urine Cocaine Screen U Marijuana (THC) Screen Ethyl Alcohol T.pallidum Ab (EIA) C. difficile Toxin A&B C. difficile Antigen C. difficile Interpret Coronavirus (PCR) COVID-19 (LINDEN) COVID-19 Clin Com Hepatitis A IgM Ab Hep Bs Antigen Hep Bs Antibody Hep B Core Total Ab Hepatitis C Ab (EIA) HIV 1&2 Ab/P24 Ag 4thGn Influenza Type A (PCR) Influenza Type B (PCR) RSV RNA Qual (PCR) SARS-CoV-2 IgG Ab Blood Type Antibody Screen 06/21/20 06/21/20 06/22/20 05:30 05:30 05:12 WBC 11.0 H RBC 3.46 L Hgb 11.2 L Hct 35.5 L MCV 102.6 H MCH 32.4 MCHC 31.5 RDW 14.7 Plt Count 321 MPV 13.7 H Immature Gran % (Auto) 0.4 Neut % (Auto) 70.4 Lymph % (Auto) 16.3 L [place] % (Auto) 9.1 Eos % (Auto) 3.3 Baso % (Auto) 0.5 Lymph # (Auto) 1.8 [place] # (Auto) 1.0 Eos # (Auto) 0.4 Baso # (Auto) 0.1 Abs Immat Gran (auto) 0.04 H Absolute Neuts (auto) 7.7 Absolute Nucleated RBC 0.000 Nucleated RBC % (auto) 0.0 Neutrophils % (Manual) Band Neutrophils % Lymphocytes % (Manual) Monocytes % (Manual) Abs Neuts (Manual) Lymphocytes # (Manual) Monocytes # (Manual) Nucleated RBCs Platelet Estimate Plt Morphology Comment RBC Morphology Polychromasia Microcytosis Macrocytosis Tear Drop Cells [place] Cells Smear Tech's Comments VERIFIED Smear Path Review ESR PT INR APTT PTT (Heparin Protocol) ABG pH ABG pCO2 ABG pO2 ABG HCO3 ABG O2 Saturation ABG Base Excess VBG pH 7.39 VBG pCO2 45 VBG pO2 38 VBG HCO3 27 VBG O2 Saturation 70.0 VBG Base Excess 1.3 Oxygen Given Sodium Potassium Chloride Carbon Dioxide Anion Gap BUN Creatinine Estim Creat Clear Calc Estimated GFR POC Glucose Random Glucose Fasting Glucose Osmolality Lactic Acid Lactic Acid Fup @ 2Hr Lactic Acid Fup @ 4Hr Calcium Uric Acid Phosphorus Magnesium Total Bilirubin Direct Bilirubin AST ALT Alkaline Phosphatase Ammonia Lactate Dehydrogenase Total Creatine Kinase C-Reactive Protein B-Natriuretic Peptide Total Protein Albumin Lipase Vitamin B12 Vitamin B1 Procalcitonin Urine Color Urine Appearance Urine pH Ur Specific [place] Urine Protein Urine Glucose (UA) Urine Ketones Urine Blood Urine Nitrite Ur Leukocyte Esterase Urine RBC Urine WBC Ur Squamous Epith Cells Amorphous Sediment Urine Bacteria Hyaline Casts U Random Total Protein Ur Random Sodium Urine Creatinine Protein/Creatinin Ratio Bronchial Fluid WBC Bronchial Fluid RBC Bronchial Neutrophils Stool Leukocytes, Qual Random Vancomycin Digoxin 1.2 Salicylates Urine Opiates Screen Ur Barbiturates Screen Ur Phencyclidine Scrn Ur Amphetamines Screen U Benzodiazepines Scrn Urine Cocaine Screen U Marijuana (THC) Screen Ethyl Alcohol T.pallidum Ab (EIA) C. difficile Toxin A&B C. difficile Antigen C. difficile Interpret Coronavirus (PCR) COVID-19 (LINDEN) COVID-19 Clin Com Hepatitis A IgM Ab Hep Bs Antigen Hep Bs Antibody Hep B Core Total Ab Hepatitis C Ab (EIA) HIV 1&2 Ab/P24 Ag 4thGn Influenza Type A (PCR) Influenza Type B (PCR) RSV RNA Qual (PCR) SARS-CoV-2 IgG Ab Blood Type Antibody Screen 06/22/20 06/22/20 06/22/20 05:12 05:12 05:12 WBC RBC Hgb Hct MCV MCH MCHC RDW Plt Count MPV Immature Gran % (Auto) Neut % (Auto) Lymph % (Auto) [place] % (Auto) Eos % (Auto) Baso % (Auto) Lymph # (Auto) [place] # (Auto) Eos # (Auto) Baso # (Auto) Abs Immat Gran (auto) Absolute Neuts (auto) Absolute Nucleated RBC Nucleated RBC % (auto) Neutrophils % (Manual) Band Neutrophils % Lymphocytes % (Manual) Monocytes % (Manual) Abs Neuts (Manual) Lymphocytes # (Manual) Monocytes # (Manual) Nucleated RBCs Platelet Estimate Plt Morphology Comment RBC Morphology Polychromasia Microcytosis Macrocytosis Tear Drop Cells [place] Cells Smear Tech's Comments Smear Path Review ESR PT INR APTT PTT (Heparin Protocol) ABG pH ABG pCO2 ABG pO2 ABG HCO3 ABG O2 Saturation ABG Base Excess VBG pH 7.38 VBG pCO2 45 VBG pO2 37 VBG HCO3 26 VBG O2 Saturation 69.3 VBG Base Excess 0.3 Oxygen Given Sodium 139 Potassium 3.6 Chloride 104 Carbon Dioxide 26 Anion Gap 13 BUN 37 H Creatinine 0.88 Estim Creat Clear Calc 127.0 Estimated GFR > 60 POC Glucose Random Glucose 146 H Fasting Glucose Osmolality Lactic Acid Lactic Acid Fup @ 2Hr Lactic Acid Fup @ 4Hr Calcium 8.1 L D Uric Acid Phosphorus 4.4 Magnesium Total Bilirubin 1.1 H Direct Bilirubin AST 63 H ALT 35 Alkaline Phosphatase 157 H Ammonia Lactate Dehydrogenase Total Creatine Kinase C-Reactive Protein B-Natriuretic Peptide Total Protein 6.7 Albumin 2.7 L Lipase Vitamin B12 Vitamin B1 Procalcitonin 0.25 Urine Color Urine Appearance Urine pH Ur Specific [place] Urine Protein Urine Glucose (UA) Urine Ketones Urine Blood Urine Nitrite Ur Leukocyte Esterase Urine RBC Urine WBC Ur Squamous Epith Cells Amorphous Sediment Urine Bacteria Hyaline Casts U Random Total Protein Ur Random Sodium Urine Creatinine Protein/Creatinin Ratio Bronchial Fluid WBC Bronchial Fluid RBC Bronchial Neutrophils Stool Leukocytes, Qual Random Vancomycin Digoxin Salicylates Urine Opiates Screen Ur Barbiturates Screen Ur Phencyclidine Scrn Ur Amphetamines Screen U Benzodiazepines Scrn Urine Cocaine Screen U Marijuana (THC) Screen Ethyl Alcohol T.pallidum Ab (EIA) C. difficile Toxin A&B C. difficile Antigen C. difficile Interpret Coronavirus (PCR) COVID-19 (LINDEN) COVID-19 Clin Com Hepatitis A IgM Ab Hep Bs Antigen Hep Bs Antibody Hep B Core Total Ab Hepatitis C Ab (EIA) HIV 1&2 Ab/P24 Ag 4thGn Influenza Type A (PCR) Influenza Type B (PCR) RSV RNA Qual (PCR) SARS-CoV-2 IgG Ab Blood Type Antibody Screen 06/23/20 06/23/20 06/23/20 05:06 05:06 05:06 WBC 10.7 RBC 3.46 L Hgb 11.2 L Hct 35.5 L MCV 102.6 H MCH 32.4 MCHC 31.5 RDW 14.6 Plt Count 343 MPV 13.3 H Immature Gran % (Auto) 0.5 H Neut % (Auto) 66.9 Lymph % (Auto) 19.5 L [place] % (Auto) 9.8 Eos % (Auto) 2.7 Baso % (Auto) 0.6 Lymph # (Auto) 2.1 [place] # (Auto) 1.1 Eos # (Auto) 0.3 Baso # (Auto) 0.1 Abs Immat Gran (auto) 0.05 H Absolute Neuts (auto) 7.2 Absolute Nucleated RBC 0.000 Nucleated RBC % (auto) 0.0 Neutrophils % (Manual) Band Neutrophils % Lymphocytes % (Manual) Monocytes % (Manual) Abs Neuts (Manual) Lymphocytes # (Manual) Monocytes # (Manual) Nucleated RBCs Platelet Estimate Plt Morphology Comment RBC Morphology Polychromasia Microcytosis Macrocytosis Tear Drop Cells [place] Cells Smear Tech's Comments VERIFIED Smear Path Review ESR PT INR APTT PTT (Heparin Protocol) ABG pH ABG pCO2 ABG pO2 ABG HCO3 ABG O2 Saturation ABG Base Excess VBG pH 7.39 VBG pCO2 44 VBG pO2 39 VBG HCO3 26 VBG O2 Saturation 71.9 VBG Base Excess 0.5 Oxygen Given Sodium 140 Potassium 4.0 Chloride 105 Carbon Dioxide 24 Anion Gap 15 BUN 33 H Creatinine 0.82 Estim Creat Clear Calc 136.3 Estimated GFR > 60 POC Glucose Random Glucose 151 H Fasting Glucose Osmolality Lactic Acid Lactic Acid Fup @ 2Hr Lactic Acid Fup @ 4Hr Calcium 8.6 D Uric Acid Phosphorus Magnesium 2.1 Total Bilirubin Direct Bilirubin AST ALT Alkaline Phosphatase Ammonia Lactate Dehydrogenase Total Creatine Kinase C-Reactive Protein B-Natriuretic Peptide Total Protein Albumin Lipase Vitamin B12 Vitamin B1 Procalcitonin Urine Color Urine Appearance Urine pH Ur Specific [place] Urine Protein Urine Glucose (UA) Urine Ketones Urine Blood Urine Nitrite Ur Leukocyte Esterase Urine RBC Urine WBC Ur Squamous Epith Cells Amorphous Sediment Urine Bacteria Hyaline Casts U Random Total Protein Ur Random Sodium Urine Creatinine Protein/Creatinin Ratio Bronchial Fluid WBC Bronchial Fluid RBC Bronchial Neutrophils Stool Leukocytes, Qual Random Vancomycin Digoxin Salicylates Urine Opiates Screen Ur Barbiturates Screen Ur Phencyclidine Scrn Ur Amphetamines Screen U Benzodiazepines Scrn Urine Cocaine Screen U Marijuana (THC) Screen Ethyl Alcohol T.pallidum Ab (EIA) C. difficile Toxin A&B C. difficile Antigen C. difficile Interpret Coronavirus (PCR) COVID-19 (LINDEN) COVID-19 Clin Com Hepatitis A IgM Ab Hep Bs Antigen Hep Bs Antibody Hep B Core Total Ab Hepatitis C Ab (EIA) HIV 1&2 Ab/P24 Ag 4thGn Influenza Type A (PCR) Influenza Type B (PCR) RSV RNA Qual (PCR) SARS-CoV-2 IgG Ab Blood Type Antibody Screen 06/23/20 06/23/20 06/24/20 11:20 12:52 04:51 WBC RBC Hgb Hct MCV MCH MCHC RDW Plt Count MPV Immature Gran % (Auto) Neut % (Auto) Lymph % (Auto) [place] % (Auto) Eos % (Auto) Baso % (Auto) Lymph # (Auto) [place] # (Auto) Eos # (Auto) Baso # (Auto) Abs Immat Gran (auto) Absolute Neuts (auto) Absolute Nucleated RBC Nucleated RBC % (auto) Neutrophils % (Manual) Band Neutrophils % Lymphocytes % (Manual) Monocytes % (Manual) Abs Neuts (Manual) Lymphocytes # (Manual) Monocytes # (Manual) Nucleated RBCs Platelet Estimate Plt Morphology Comment RBC Morphology Polychromasia Microcytosis Macrocytosis Tear Drop Cells [place] Cells Smear Tech's Comments Smear Path Review ESR 94 H PT INR APTT PTT (Heparin Protocol) ABG pH ABG pCO2 ABG pO2 ABG HCO3 ABG O2 Saturation ABG Base Excess VBG pH VBG pCO2 VBG pO2 VBG HCO3 VBG O2 Saturation VBG Base Excess Oxygen Given Sodium 140 Potassium 4.0 Chloride 105 Carbon Dioxide 24 Anion Gap 15 BUN 30 H Creatinine 0.78 Estim Creat Clear Calc 127.1 Estimated GFR > 60 POC Glucose Random Glucose 155 H Fasting Glucose Osmolality Lactic Acid Lactic Acid Fup @ 2Hr Lactic Acid Fup @ 4Hr Calcium 8.5 Uric Acid Phosphorus 3.5 Magnesium Total Bilirubin Direct Bilirubin AST ALT Alkaline Phosphatase Ammonia Lactate Dehydrogenase Total Creatine Kinase C-Reactive Protein B-Natriuretic Peptide Total Protein Albumin 2.7 L Lipase Vitamin B12 Vitamin B1 Procalcitonin Urine Color Urine Appearance Urine pH Ur Specific [place] Urine Protein Urine Glucose (UA) Urine Ketones Urine Blood Urine Nitrite Ur Leukocyte Esterase Urine RBC Urine WBC Ur Squamous Epith Cells Amorphous Sediment Urine Bacteria Hyaline Casts U Random Total Protein Ur Random Sodium Urine Creatinine Protein/Creatinin Ratio Bronchial Fluid WBC Bronchial Fluid RBC Bronchial Neutrophils Stool Leukocytes, Qual Random Vancomycin Digoxin Salicylates Urine Opiates Screen Ur Barbiturates Screen Ur Phencyclidine Scrn Ur Amphetamines Screen U Benzodiazepines Scrn Urine Cocaine Screen U Marijuana (THC) Screen Ethyl Alcohol T.pallidum Ab (EIA) C. difficile Toxin A&B Negative C. difficile Antigen Negative C. difficile Interpret SEE NOTE Coronavirus (PCR) COVID-19 (LINDEN) COVID-19 Clin Com Hepatitis A IgM Ab Hep Bs Antigen Hep Bs Antibody Hep B Core Total Ab Hepatitis C Ab (EIA) HIV 1&2 Ab/P24 Ag 4thGn Influenza Type A (PCR) Influenza Type B (PCR) RSV RNA Qual (PCR) SARS-CoV-2 IgG Ab Blood Type Antibody Screen 06/24/20 06/24/20 06/25/20 04:51 04:51 00:45 WBC 13.0 H RBC 3.40 L Hgb 11.1 L Hct 34.5 L MCV 101.5 H MCH 32.6 MCHC 32.2 RDW 14.7 Plt Count 435 H D MPV 13.1 H Immature Gran % (Auto) 0.5 H Neut % (Auto) 70.6 Lymph % (Auto) 16.8 L [place] % (Auto) 10.3 Eos % (Auto) 1.4 Baso % (Auto) 0.4 Lymph # (Auto) 2.2 [place] # (Auto) 1.3 H Eos # (Auto) 0.2 Baso # (Auto) 0.1 Abs Immat Gran (auto) 0.06 H Absolute Neuts (auto) 9.2 H Absolute Nucleated RBC 0.000 Nucleated RBC % (auto) 0.0 Neutrophils % (Manual) Band Neutrophils % Lymphocytes % (Manual) Monocytes % (Manual) Abs Neuts (Manual) Lymphocytes # (Manual) Monocytes # (Manual) Nucleated RBCs Platelet Estimate Plt Morphology Comment RBC Morphology Polychromasia Microcytosis Macrocytosis Tear Drop Cells [place] Cells Smear Tech's Comments VERIFIED Smear Path Review ESR PT INR APTT PTT (Heparin Protocol) ABG pH ABG pCO2 ABG pO2 ABG HCO3 ABG O2 Saturation ABG Base Excess VBG pH 7.43 VBG pCO2 40 VBG pO2 41 VBG HCO3 26 VBG O2 Saturation 79.4 VBG Base Excess 1.8 Oxygen Given Sodium Potassium Chloride Carbon Dioxide Anion Gap BUN Creatinine Estim Creat Clear Calc Estimated GFR POC Glucose Random Glucose Fasting Glucose Osmolality Lactic Acid Lactic Acid Fup @ 2Hr Lactic Acid Fup @ 4Hr Calcium Uric Acid Phosphorus Magnesium Total Bilirubin Direct Bilirubin AST ALT Alkaline Phosphatase Ammonia Lactate Dehydrogenase Total Creatine Kinase C-Reactive Protein B-Natriuretic Peptide 1574 H Total Protein Albumin Lipase Vitamin B12 Vitamin B1 Procalcitonin Urine Color Urine Appearance Urine pH Ur Specific [place] Urine Protein Urine Glucose (UA) Urine Ketones Urine Blood Urine Nitrite Ur Leukocyte Esterase Urine RBC Urine WBC Ur Squamous Epith Cells Amorphous Sediment Urine Bacteria Hyaline Casts U Random Total Protein Ur Random Sodium Urine Creatinine Protein/Creatinin Ratio Bronchial Fluid WBC Bronchial Fluid RBC Bronchial Neutrophils Stool Leukocytes, Qual Random Vancomycin Digoxin Salicylates Urine Opiates Screen Ur Barbiturates Screen Ur Phencyclidine Scrn Ur Amphetamines Screen U Benzodiazepines Scrn Urine Cocaine Screen U Marijuana (THC) Screen Ethyl Alcohol T.pallidum Ab (EIA) C. difficile Toxin A&B C. difficile Antigen C. difficile Interpret Coronavirus (PCR) COVID-19 (LINDEN) COVID-19 Clin Com Hepatitis A IgM Ab Hep Bs Antigen Hep Bs Antibody Hep B Core Total Ab Hepatitis C Ab (EIA) HIV 1&2 Ab/P24 Ag 4thGn Influenza Type A (PCR) Influenza Type B (PCR) RSV RNA Qual (PCR) SARS-CoV-2 IgG Ab Blood Type Antibody Screen 06/25/20 06/25/20 06/25/20 00:45 00:45 00:45 WBC RBC Hgb Hct MCV MCH MCHC RDW Plt Count MPV Immature Gran % (Auto) Neut % (Auto) Lymph % (Auto) [place] % (Auto) Eos % (Auto) Baso % (Auto) Lymph # (Auto) [place] # (Auto) Eos # (Auto) Baso # (Auto) Abs Immat Gran (auto) Absolute Neuts (auto) Absolute Nucleated RBC Nucleated RBC % (auto) Neutrophils % (Manual) Band Neutrophils % Lymphocytes % (Manual) Monocytes % (Manual) Abs Neuts (Manual) Lymphocytes # (Manual) Monocytes # (Manual) Nucleated RBCs Platelet Estimate Plt Morphology Comment RBC Morphology Polychromasia Microcytosis Macrocytosis Tear Drop Cells [place] Cells Smear Tech's Comments Smear Path Review ESR PT INR APTT PTT (Heparin Protocol) ABG pH ABG pCO2 ABG pO2 ABG HCO3 ABG O2 Saturation ABG Base Excess VBG pH VBG pCO2 VBG pO2 VBG HCO3 VBG O2 Saturation VBG Base Excess Oxygen Given Sodium Cancelled 139 Potassium Cancelled 4.1 Chloride Cancelled 104 Carbon Dioxide Cancelled 24 Anion Gap Cancelled 15 BUN Cancelled 29 H Creatinine Cancelled 0.76 Estim Creat Clear Calc Cancelled 130.5 Estimated GFR Cancelled > 60 POC Glucose Random Glucose Cancelled 147 H Fasting Glucose Osmolality Lactic Acid 1.3 Lactic Acid Fup @ 2Hr Lactic Acid Fup @ 4Hr Calcium Cancelled 8.9 Uric Acid Phosphorus Magnesium Total Bilirubin 1.5 H Direct Bilirubin 1.3 H AST 129 H ALT 61 H Alkaline Phosphatase 242 H D Ammonia Lactate Dehydrogenase Total Creatine Kinase C-Reactive Protein 16.38 H B-Natriuretic Peptide Total Protein 6.9 Albumin 2.8 L Lipase Vitamin B12 Vitamin B1 Procalcitonin Urine Color Urine Appearance Urine pH Ur Specific [place] Urine Protein Urine Glucose (UA) Urine Ketones Urine Blood Urine Nitrite Ur Leukocyte Esterase Urine RBC Urine WBC Ur Squamous Epith Cells Amorphous Sediment Urine Bacteria Hyaline Casts U Random Total Protein Ur Random Sodium Urine Creatinine Protein/Creatinin Ratio Bronchial Fluid WBC Bronchial Fluid RBC Bronchial Neutrophils Stool Leukocytes, Qual Random Vancomycin Digoxin Salicylates Urine Opiates Screen Ur Barbiturates Screen Ur Phencyclidine Scrn Ur Amphetamines Screen U Benzodiazepines Scrn Urine Cocaine Screen U Marijuana (THC) Screen Ethyl Alcohol T.pallidum Ab (EIA) C. difficile Toxin A&B C. difficile Antigen C. difficile Interpret Coronavirus (PCR) COVID-19 (LINDEN) COVID-19 Clin Com Hepatitis A IgM Ab Hep Bs Antigen Hep Bs Antibody Hep B Core Total Ab Hepatitis C Ab (EIA) HIV 1&2 Ab/P24 Ag 4thGn Influenza Type A (PCR) Influenza Type B (PCR) RSV RNA Qual (PCR) SARS-CoV-2 IgG Ab Blood Type Antibody Screen 06/25/20 06/25/20 06/25/20 00:45 00:45 00:45 WBC RBC Hgb Hct MCV MCH MCHC RDW Plt Count MPV Immature Gran % (Auto) Neut % (Auto) Lymph % (Auto) [place] % (Auto) Eos % (Auto) Baso % (Auto) Lymph # (Auto) [place] # (Auto) Eos # (Auto) Baso # (Auto) Abs Immat Gran (auto) Absolute Neuts (auto) Absolute Nucleated RBC Nucleated RBC % (auto) Neutrophils % (Manual) Band Neutrophils % Lymphocytes % (Manual) Monocytes % (Manual) Abs Neuts (Manual) Lymphocytes # (Manual) Monocytes # (Manual) Nucleated RBCs Platelet Estimate Plt Morphology Comment RBC Morphology Polychromasia Microcytosis Macrocytosis Tear Drop Cells [place] Cells Smear Tech's Comments Smear Path Review ESR PT INR APTT PTT (Heparin Protocol) ABG pH ABG pCO2 ABG pO2 ABG HCO3 ABG O2 Saturation ABG Base Excess VBG pH VBG pCO2 VBG pO2 VBG HCO3 VBG O2 Saturation VBG Base Excess Oxygen Given Sodium Potassium Chloride Carbon Dioxide Anion Gap BUN Creatinine Estim Creat Clear Calc Estimated GFR POC Glucose Random Glucose Fasting Glucose Osmolality Lactic Acid Lactic Acid Fup @ 2Hr Lactic Acid Fup @ 4Hr Calcium Uric Acid Phosphorus Magnesium Total Bilirubin Direct Bilirubin AST ALT Alkaline Phosphatase Ammonia Lactate Dehydrogenase 249 Total Creatine Kinase C-Reactive Protein Cancelled B-Natriuretic Peptide Total Protein Albumin Lipase Vitamin B12 Vitamin B1 Procalcitonin 0.18 Urine Color Urine Appearance Urine pH Ur Specific [place] Urine Protein Urine Glucose (UA) Urine Ketones Urine Blood Urine Nitrite Ur Leukocyte Esterase Urine RBC Urine WBC Ur Squamous Epith Cells Amorphous Sediment Urine Bacteria Hyaline Casts U Random Total Protein Ur Random Sodium Urine Creatinine Protein/Creatinin Ratio Bronchial Fluid WBC Bronchial Fluid RBC Bronchial Neutrophils Stool Leukocytes, Qual Random Vancomycin Digoxin Salicylates Urine Opiates Screen Ur Barbiturates Screen Ur Phencyclidine Scrn Ur Amphetamines Screen U Benzodiazepines Scrn Urine Cocaine Screen U Marijuana (THC) Screen Ethyl Alcohol T.pallidum Ab (EIA) C. difficile Toxin A&B C. difficile Antigen C. difficile Interpret Coronavirus (PCR) COVID-19 (LINDEN) COVID-19 Clin Com Hepatitis A IgM Ab Hep Bs Antigen Hep Bs Antibody Hep B Core Total Ab Hepatitis C Ab (EIA) HIV 1&2 Ab/P24 Ag 4thGn Influenza Type A (PCR) Influenza Type B (PCR) RSV RNA Qual (PCR) SARS-CoV-2 IgG Ab Blood Type Antibody Screen 06/25/20 06/25/20 06/25/20 00:51 02:12 02:12 WBC RBC Hgb Hct MCV MCH MCHC RDW Plt Count MPV Immature Gran % (Auto) Neut % (Auto) Lymph % (Auto) [place] % (Auto) Eos % (Auto) Baso % (Auto) Lymph # (Auto) [place] # (Auto) Eos # (Auto) Baso # (Auto) Abs Immat Gran (auto) Absolute Neuts (auto) Absolute Nucleated RBC Nucleated RBC % (auto) Neutrophils % (Manual) Band Neutrophils % Lymphocytes % (Manual) Monocytes % (Manual) Abs Neuts (Manual) Lymphocytes # (Manual) Monocytes # (Manual) Nucleated RBCs Platelet Estimate Plt Morphology Comment RBC Morphology Polychromasia Microcytosis Macrocytosis Tear Drop Cells [place] Cells Smear Tech's Comments Smear Path Review ESR PT INR APTT PTT (Heparin Protocol) ABG pH ABG pCO2 ABG pO2 ABG HCO3 ABG O2 Saturation ABG Base Excess VBG pH VBG pCO2 VBG pO2 VBG HCO3 VBG O2 Saturation VBG Base Excess Oxygen Given Sodium Potassium Chloride Carbon Dioxide Anion Gap BUN Creatinine Estim Creat Clear Calc Estimated GFR POC Glucose Random Glucose Fasting Glucose Osmolality Lactic Acid Lactic Acid Fup @ 2Hr Lactic Acid Fup @ 4Hr Calcium Uric Acid Phosphorus Magnesium Total Bilirubin Direct Bilirubin AST ALT Alkaline Phosphatase Ammonia Lactate Dehydrogenase Total Creatine Kinase C-Reactive Protein B-Natriuretic Peptide Total Protein Albumin Lipase Vitamin B12 Vitamin B1 Procalcitonin Urine Color Urine Appearance Urine pH Ur Specific [place] Urine Protein Urine Glucose (UA) Urine Ketones Urine Blood Urine Nitrite Ur Leukocyte Esterase Urine RBC Urine WBC Ur Squamous Epith Cells Amorphous Sediment Urine Bacteria Hyaline Casts U Random Total Protein Ur Random Sodium Urine Creatinine Protein/Creatinin Ratio Bronchial Fluid WBC Bronchial Fluid RBC Bronchial Neutrophils Stool Leukocytes, Qual Random Vancomycin Digoxin Salicylates Urine Opiates Screen Ur Barbiturates Screen Ur Phencyclidine Scrn Ur Amphetamines Screen U Benzodiazepines Scrn Urine Cocaine Screen U Marijuana (THC) Screen Ethyl Alcohol T.pallidum Ab (EIA) C. difficile Toxin A&B C. difficile Antigen C. difficile Interpret Coronavirus (PCR) COVID-19 (LINDEN) Cancelled Negative COVID-19 Clin Com Cancelled See Note Hepatitis A IgM Ab Nonreactive Hep Bs Antigen Negative Hep Bs Antibody NONREACTIVE Hep B Core Total Ab Nonreactive Hepatitis C Ab (EIA) Nonreactive HIV 1&2 Ab/P24 Ag 4thGn Influenza Type A (PCR) Influenza Type B (PCR) RSV RNA Qual (PCR) SARS-CoV-2 IgG Ab Blood Type Antibody Screen 06/25/20 06/25/20 06/25/20 05:07 05:07 05:07 WBC 13.5 H RBC 3.46 L Hgb 11.1 L Hct 35.3 L MCV 102.0 H MCH 32.1 MCHC 31.4 RDW 14.6 Plt Count 426 H MPV 13.7 H Immature Gran % (Auto) 0.7 H Neut % (Auto) 72.1 Lymph % (Auto) 16.3 L [place] % (Auto) 9.5 Eos % (Auto) 1.0 Baso % (Auto) 0.4 Lymph # (Auto) 2.2 [place] # (Auto) 1.3 H Eos # (Auto) 0.1 Baso # (Auto) 0.1 Abs Immat Gran (auto) 0.10 H Absolute Neuts (auto) 9.7 H Absolute Nucleated RBC 0.000 Nucleated RBC % (auto) 0.0 Neutrophils % (Manual) Band Neutrophils % Lymphocytes % (Manual) Monocytes % (Manual) Abs Neuts (Manual) Lymphocytes # (Manual) Monocytes # (Manual) Nucleated RBCs Platelet Estimate Plt Morphology Comment RBC Morphology Polychromasia Microcytosis Macrocytosis Tear Drop Cells [place] Cells Smear Tech's Comments Smear Path Review ESR PT INR APTT PTT (Heparin Protocol) ABG pH ABG pCO2 ABG pO2 ABG HCO3 ABG O2 Saturation ABG Base Excess VBG pH VBG pCO2 VBG pO2 VBG HCO3 VBG O2 Saturation VBG Base Excess Oxygen Given Sodium 141 Potassium 4.0 Chloride 104 Carbon Dioxide 27 Anion Gap 14 BUN 28 H Creatinine 0.74 Estim Creat Clear Calc 134.0 Estimated GFR > 60 POC Glucose Random Glucose 142 H Fasting Glucose Osmolality Lactic Acid Lactic Acid Fup @ 2Hr Lactic Acid Fup @ 4Hr Calcium 9.1 Uric Acid Phosphorus 4.1 Magnesium 2.0 Total Bilirubin Direct Bilirubin AST ALT Alkaline Phosphatase Ammonia Lactate Dehydrogenase Total Creatine Kinase C-Reactive Protein B-Natriuretic Peptide 1813 H Total Protein Albumin 2.8 L Lipase Vitamin B12 Vitamin B1 Procalcitonin Urine Color Urine Appearance Urine pH Ur Specific [place] Urine Protein Urine Glucose (UA) Urine Ketones Urine Blood Urine Nitrite Ur Leukocyte Esterase Urine RBC Urine WBC Ur Squamous Epith Cells Amorphous Sediment Urine Bacteria Hyaline Casts U Random Total Protein Ur Random Sodium Urine Creatinine Protein/Creatinin Ratio Bronchial Fluid WBC Bronchial Fluid RBC Bronchial Neutrophils Stool Leukocytes, Qual Random Vancomycin Digoxin Salicylates Urine Opiates Screen Ur Barbiturates Screen Ur Phencyclidine Scrn Ur Amphetamines Screen U Benzodiazepines Scrn Urine Cocaine Screen U Marijuana (THC) Screen Ethyl Alcohol T.pallidum Ab (EIA) C. difficile Toxin A&B C. difficile Antigen C. difficile Interpret Coronavirus (PCR) COVID-19 (LINDEN) COVID-19 Clin Com Hepatitis A IgM Ab Hep Bs Antigen Hep Bs Antibody Hep B Core Total Ab Hepatitis C Ab (EIA) HIV 1&2 Ab/P24 Ag 4thGn Influenza Type A (PCR) Influenza Type B (PCR) RSV RNA Qual (PCR) SARS-CoV-2 IgG Ab Blood Type Antibody Screen 06/25/20 06/25/20 06/26/20 05:08 05:14 04:56 WBC RBC Hgb Hct MCV MCH MCHC RDW Plt Count MPV Immature Gran % (Auto) Neut % (Auto) Lymph % (Auto) [place] % (Auto) Eos % (Auto) Baso % (Auto) Lymph # (Auto) [place] # (Auto) Eos # (Auto) Baso # (Auto) Abs Immat Gran (auto) Absolute Neuts (auto) Absolute Nucleated RBC Nucleated RBC % (auto) Neutrophils % (Manual) Band Neutrophils % Lymphocytes % (Manual) Monocytes % (Manual) Abs Neuts (Manual) Lymphocytes # (Manual) Monocytes # (Manual) Nucleated RBCs Platelet Estimate Plt Morphology Comment RBC Morphology Polychromasia Microcytosis Macrocytosis Tear Drop Cells [place] Cells Smear Tech's Comments Smear Path Review ESR PT 19.8 H D INR 1.7 H APTT 35.9 PTT (Heparin Protocol) ABG pH ABG pCO2 ABG pO2 ABG HCO3 ABG O2 Saturation ABG Base Excess VBG pH 7.38 VBG pCO2 51 VBG pO2 44 VBG HCO3 30 VBG O2 Saturation 78.4 VBG Base Excess 3.7 Oxygen Given Sodium 139 Potassium 4.1 Chloride 102 Carbon Dioxide 27 Anion Gap 14 BUN 23 H Creatinine 0.71 Estim Creat Clear Calc 139.6 Estimated GFR > 60 POC Glucose Random Glucose 159 H Fasting Glucose Osmolality Lactic Acid Lactic Acid Fup @ 2Hr Lactic Acid Fup @ 4Hr Calcium 8.9 Uric Acid Phosphorus 3.6 Magnesium 2.0 Total Bilirubin Direct Bilirubin AST ALT Alkaline Phosphatase Ammonia Lactate Dehydrogenase Total Creatine Kinase C-Reactive Protein B-Natriuretic Peptide Total Protein Albumin 2.7 L Lipase Vitamin B12 Vitamin B1 Procalcitonin Urine Color Urine Appearance Urine pH Ur Specific [place] Urine Protein Urine Glucose (UA) Urine Ketones Urine Blood Urine Nitrite Ur Leukocyte Esterase Urine RBC Urine WBC Ur Squamous Epith Cells Amorphous Sediment Urine Bacteria Hyaline Casts U Random Total Protein Ur Random Sodium Urine Creatinine Protein/Creatinin Ratio Bronchial Fluid WBC Bronchial Fluid RBC Bronchial Neutrophils Stool Leukocytes, Qual Random Vancomycin Digoxin Salicylates Urine Opiates Screen Ur Barbiturates Screen Ur Phencyclidine Scrn Ur Amphetamines Screen U Benzodiazepines Scrn Urine Cocaine Screen U Marijuana (THC) Screen Ethyl Alcohol T.pallidum Ab (EIA) C. difficile Toxin A&B C. difficile Antigen C. difficile Interpret Coronavirus (PCR) COVID-19 (LINDEN) COVID-19 Clin Com Hepatitis A IgM Ab Hep Bs Antigen Hep Bs Antibody Hep B Core Total Ab Hepatitis C Ab (EIA) HIV 1&2 Ab/P24 Ag 4thGn Influenza Type A (PCR) Influenza Type B (PCR) RSV RNA Qual (PCR) SARS-CoV-2 IgG Ab Blood Type Antibody Screen 06/26/20 06/26/20 06/26/20 04:56 04:56 04:56 WBC 14.1 H RBC 3.44 L Hgb 11.1 L Hct 34.8 L MCV 101.2 H MCH 32.3 MCHC 31.9 RDW 14.6 Plt Count 486 H MPV 12.9 H Immature Gran % (Auto) 0.6 H Neut % (Auto) 74.3 H Lymph % (Auto) 14.4 L [place] % (Auto) 9.0 Eos % (Auto) 1.3 Baso % (Auto) 0.4 Lymph # (Auto) 2.0 [place] # (Auto) 1.3 H Eos # (Auto) 0.2 Baso # (Auto) 0.1 Abs Immat Gran (auto) 0.08 H Absolute Neuts (auto) 10.5 H Absolute Nucleated RBC 0.000 Nucleated RBC % (auto) 0.0 Neutrophils % (Manual) Band Neutrophils % Lymphocytes % (Manual) Monocytes % (Manual) Abs Neuts (Manual) Lymphocytes # (Manual) Monocytes # (Manual) Nucleated RBCs Platelet Estimate Plt Morphology Comment RBC Morphology Polychromasia Microcytosis Macrocytosis Tear Drop Cells [place] Cells Smear Tech's Comments Smear Path Review ESR PT INR APTT PTT (Heparin Protocol) ABG pH ABG pCO2 ABG pO2 ABG HCO3 ABG O2 Saturation ABG Base Excess VBG pH VBG pCO2 VBG pO2 VBG HCO3 VBG O2 Saturation VBG Base Excess Oxygen Given Sodium Potassium Chloride Carbon Dioxide Anion Gap BUN Creatinine Estim Creat Clear Calc Estimated GFR POC Glucose Random Glucose Fasting Glucose Osmolality Lactic Acid Lactic Acid Fup @ 2Hr Lactic Acid Fup @ 4Hr Calcium Uric Acid 5.8 Phosphorus Magnesium Total Bilirubin Direct Bilirubin AST ALT Alkaline Phosphatase Ammonia Lactate Dehydrogenase Total Creatine Kinase C-Reactive Protein B-Natriuretic Peptide 2486 H Total Protein Albumin Lipase Vitamin B12 Vitamin B1 Procalcitonin Urine Color Urine Appearance Urine pH Ur Specific [place] Urine Protein Urine Glucose (UA) Urine Ketones Urine Blood Urine Nitrite Ur Leukocyte Esterase Urine RBC Urine WBC Ur Squamous Epith Cells Amorphous Sediment Urine Bacteria Hyaline Casts U Random Total Protein Ur Random Sodium Urine Creatinine Protein/Creatinin Ratio Bronchial Fluid WBC Bronchial Fluid RBC Bronchial Neutrophils Stool Leukocytes, Qual Random Vancomycin Digoxin Salicylates Urine Opiates Screen Ur Barbiturates Screen Ur Phencyclidine Scrn Ur Amphetamines Screen U Benzodiazepines Scrn Urine Cocaine Screen U Marijuana (THC) Screen Ethyl Alcohol T.pallidum Ab (EIA) C. difficile Toxin A&B C. difficile Antigen C. difficile Interpret Coronavirus (PCR) COVID-19 (LINDEN) COVID-19 Clin Com Hepatitis A IgM Ab Hep Bs Antigen Hep Bs Antibody Hep B Core Total Ab Hepatitis C Ab (EIA) HIV 1&2 Ab/P24 Ag 4thGn Influenza Type A (PCR) Influenza Type B (PCR) RSV RNA Qual (PCR) SARS-CoV-2 IgG Ab Blood Type Antibody Screen 06/26/20 06/26/20 06/27/20 04:56 19:31 05:11 WBC RBC Hgb Hct MCV MCH MCHC RDW Plt Count MPV Immature Gran % (Auto) Neut % (Auto) Lymph % (Auto) [place] % (Auto) Eos % (Auto) Baso % (Auto) Lymph # (Auto) [place] # (Auto) Eos # (Auto) Baso # (Auto) Abs Immat Gran (auto) Absolute Neuts (auto) Absolute Nucleated RBC Nucleated RBC % (auto) Neutrophils % (Manual) Band Neutrophils % Lymphocytes % (Manual) Monocytes % (Manual) Abs Neuts (Manual) Lymphocytes # (Manual) Monocytes # (Manual) Nucleated RBCs Platelet Estimate Plt Morphology Comment RBC Morphology Polychromasia Microcytosis Macrocytosis Tear Drop Cells [place] Cells Smear Tech's Comments Smear Path Review ESR PT INR APTT PTT (Heparin Protocol) ABG pH ABG pCO2 ABG pO2 ABG HCO3 ABG O2 Saturation ABG Base Excess VBG pH 7.42 VBG pCO2 45 VBG pO2 34 VBG HCO3 28 VBG O2 Saturation 69.1 VBG Base Excess 3.3 Oxygen Given Sodium 140 Potassium 4.0 Chloride 100 Carbon Dioxide 28 Anion Gap 16 BUN 23 H Creatinine 0.73 Estim Creat Clear Calc 135.8 Estimated GFR > 60 POC Glucose Random Glucose 161 H Fasting Glucose Osmolality Lactic Acid 1.0 Lactic Acid Fup @ 2Hr Lactic Acid Fup @ 4Hr Calcium 9.5 D Uric Acid Phosphorus 4.1 Magnesium 1.9 Total Bilirubin Direct Bilirubin AST ALT Alkaline Phosphatase Ammonia Lactate Dehydrogenase Total Creatine Kinase C-Reactive Protein B-Natriuretic Peptide Total Protein Albumin 3.3 L D Lipase Vitamin B12 Vitamin B1 Procalcitonin Urine Color Urine Appearance Urine pH Ur Specific [place] Urine Protein Urine Glucose (UA) Urine Ketones Urine Blood Urine Nitrite Ur Leukocyte Esterase Urine RBC Urine WBC Ur Squamous Epith Cells Amorphous Sediment Urine Bacteria Hyaline Casts U Random Total Protein Ur Random Sodium Urine Creatinine Protein/Creatinin Ratio Bronchial Fluid WBC Bronchial Fluid RBC Bronchial Neutrophils Stool Leukocytes, Qual Random Vancomycin Digoxin Salicylates Urine Opiates Screen Ur Barbiturates Screen Ur Phencyclidine Scrn Ur Amphetamines Screen U Benzodiazepines Scrn Urine Cocaine Screen U Marijuana (THC) Screen Ethyl Alcohol T.pallidum Ab (EIA) C. difficile Toxin A&B C. difficile Antigen C. difficile Interpret Coronavirus (PCR) COVID-19 (LINDEN) COVID-19 Clin Com Hepatitis A IgM Ab Hep Bs Antigen Hep Bs Antibody Hep B Core Total Ab Hepatitis C Ab (EIA) HIV 1&2 Ab/P24 Ag 4thGn Influenza Type A (PCR) Influenza Type B (PCR) RSV RNA Qual (PCR) SARS-CoV-2 IgG Ab Blood Type Antibody Screen 06/27/20 06/27/20 06/27/20 05:11 05:11 05:11 WBC 14.1 H RBC 3.45 L Hgb 11.2 L Hct 34.5 L MCV 100.0 H MCH 32.5 MCHC 32.5 RDW 14.6 Plt Count 483 H MPV 12.7 H Immature Gran % (Auto) 0.4 Neut % (Auto) 75.7 H Lymph % (Auto) 14.5 L [place] % (Auto) 7.2 Eos % (Auto) 1.8 Baso % (Auto) 0.4 Lymph # (Auto) 2.0 [place] # (Auto) 1.0 Eos # (Auto) 0.3 Baso # (Auto) 0.1 Abs Immat Gran (auto) 0.06 H Absolute Neuts (auto) 10.6 H Absolute Nucleated RBC 0.000 Nucleated RBC % (auto) 0.0 Neutrophils % (Manual) Band Neutrophils % Lymphocytes % (Manual) Monocytes % (Manual) Abs Neuts (Manual) Lymphocytes # (Manual) Monocytes # (Manual) Nucleated RBCs Platelet Estimate Plt Morphology Comment RBC Morphology Polychromasia Microcytosis Macrocytosis Tear Drop Cells [place] Cells Smear Tech's Comments Smear Path Review ESR PT INR APTT PTT (Heparin Protocol) ABG pH ABG pCO2 ABG pO2 ABG HCO3 ABG O2 Saturation ABG Base Excess VBG pH 7.48 H VBG pCO2 44 VBG pO2 57 VBG HCO3 32 VBG O2 Saturation 90.0 VBG Base Excess 7.6 Oxygen Given Sodium Potassium Chloride Carbon Dioxide Anion Gap BUN Creatinine Estim Creat Clear Calc Estimated GFR POC Glucose Random Glucose Fasting Glucose Osmolality Lactic Acid Lactic Acid Fup @ 2Hr Lactic Acid Fup @ 4Hr Calcium Uric Acid Phosphorus Magnesium Total Bilirubin Direct Bilirubin AST ALT Alkaline Phosphatase Ammonia Lactate Dehydrogenase Total Creatine Kinase C-Reactive Protein B-Natriuretic Peptide 2106 H Total Protein Albumin Lipase Vitamin B12 Vitamin B1 Procalcitonin Urine Color Urine Appearance Urine pH Ur Specific [place] Urine Protein Urine Glucose (UA) Urine Ketones Urine Blood Urine Nitrite Ur Leukocyte Esterase Urine RBC Urine WBC Ur Squamous Epith Cells Amorphous Sediment Urine Bacteria Hyaline Casts U Random Total Protein Ur Random Sodium Urine Creatinine Protein/Creatinin Ratio Bronchial Fluid WBC Bronchial Fluid RBC Bronchial Neutrophils Stool Leukocytes, Qual Random Vancomycin Digoxin Salicylates Urine Opiates Screen Ur Barbiturates Screen Ur Phencyclidine Scrn Ur Amphetamines Screen U Benzodiazepines Scrn Urine Cocaine Screen U Marijuana (THC) Screen Ethyl Alcohol T.pallidum Ab (EIA) C. difficile Toxin A&B C. difficile Antigen C. difficile Interpret Coronavirus (PCR) COVID-19 (LINDEN) COVID-19 Clin Com Hepatitis A IgM Ab Hep Bs Antigen Hep Bs Antibody Hep B Core Total Ab Hepatitis C Ab (EIA) HIV 1&2 Ab/P24 Ag 4thGn Influenza Type A (PCR) Influenza Type B (PCR) RSV RNA Qual (PCR) SARS-CoV-2 IgG Ab Blood Type Antibody Screen 06/28/20 06/28/20 06/28/20 05:24 05:24 05:24 WBC 13.9 H RBC 3.86 L Hgb 12.5 L Hct 39.2 L MCV 101.6 H MCH 32.4 MCHC 31.9 RDW 14.6 Plt Count 507 H MPV 12.8 H Immature Gran % (Auto) 0.6 H Neut % (Auto) 74.1 H Lymph % (Auto) 16.2 L [place] % (Auto) 6.7 Eos % (Auto) 2.0 Baso % (Auto) 0.4 Lymph # (Auto) 2.3 [place] # (Auto) 0.9 Eos # (Auto) 0.3 Baso # (Auto) 0.1 Abs Immat Gran (auto) 0.08 H Absolute Neuts (auto) 10.3 H Absolute Nucleated RBC 0.000 Nucleated RBC % (auto) 0.0 Neutrophils % (Manual) Band Neutrophils % Lymphocytes % (Manual) Monocytes % (Manual) Abs Neuts (Manual) Lymphocytes # (Manual) Monocytes # (Manual) Nucleated RBCs Platelet Estimate Plt Morphology Comment RBC Morphology Polychromasia Microcytosis Macrocytosis Tear Drop Cells [place] Cells Smear Tech's Comments Smear Path Review ESR PT INR APTT PTT (Heparin Protocol) ABG pH ABG pCO2 ABG pO2 ABG HCO3 ABG O2 Saturation ABG Base Excess VBG pH VBG pCO2 VBG pO2 VBG HCO3 VBG O2 Saturation VBG Base Excess Oxygen Given Sodium 142 Potassium 4.2 Chloride 99 Carbon Dioxide 30 H Anion Gap 17 BUN 28 H Creatinine 0.76 Estim Creat Clear Calc 130.5 Estimated GFR > 60 POC Glucose Random Glucose 154 H Fasting Glucose Osmolality Lactic Acid Lactic Acid Fup @ 2Hr Lactic Acid Fup @ 4Hr Calcium 9.2 Uric Acid Phosphorus 4.8 H Magnesium 2.0 Total Bilirubin Direct Bilirubin AST ALT Alkaline Phosphatase Ammonia Lactate Dehydrogenase Total Creatine Kinase C-Reactive Protein B-Natriuretic Peptide 1159 H Total Protein Albumin 3.1 L Lipase Vitamin B12 Vitamin B1 Procalcitonin Urine Color Urine Appearance Urine pH Ur Specific [place] Urine Protein Urine Glucose (UA) Urine Ketones Urine Blood Urine Nitrite Ur Leukocyte Esterase Urine RBC Urine WBC Ur Squamous Epith Cells Amorphous Sediment Urine Bacteria Hyaline Casts U Random Total Protein Ur Random Sodium Urine Creatinine Protein/Creatinin Ratio Bronchial Fluid WBC Bronchial Fluid RBC Bronchial Neutrophils Stool Leukocytes, Qual Random Vancomycin Digoxin Salicylates Urine Opiates Screen Ur Barbiturates Screen Ur Phencyclidine Scrn Ur Amphetamines Screen U Benzodiazepines Scrn Urine Cocaine Screen U Marijuana (THC) Screen Ethyl Alcohol T.pallidum Ab (EIA) C. difficile Toxin A&B C. difficile Antigen C. difficile Interpret Coronavirus (PCR) COVID-19 (LINDEN) COVID-19 Clin Com Hepatitis A IgM Ab Hep Bs Antigen Hep Bs Antibody Hep B Core Total Ab Hepatitis C Ab (EIA) HIV 1&2 Ab/P24 Ag 4thGn Influenza Type A (PCR) Influenza Type B (PCR) RSV RNA Qual (PCR) SARS-CoV-2 IgG Ab Blood Type Antibody Screen 06/28/20 06/28/20 06/29/20 05:24 09:00 05:27 WBC RBC Hgb Hct MCV MCH MCHC RDW Plt Count MPV Immature Gran % (Auto) Neut % (Auto) Lymph % (Auto) [place] % (Auto) Eos % (Auto) Baso % (Auto) Lymph # (Auto) [place] # (Auto) Eos # (Auto) Baso # (Auto) Abs Immat Gran (auto) Absolute Neuts (auto) Absolute Nucleated RBC Nucleated RBC % (auto) Neutrophils % (Manual) Band Neutrophils % Lymphocytes % (Manual) Monocytes % (Manual) Abs Neuts (Manual) Lymphocytes # (Manual) Monocytes # (Manual) Nucleated RBCs Platelet Estimate Plt Morphology Comment RBC Morphology Polychromasia Microcytosis Macrocytosis Tear Drop Cells [place] Cells Smear Tech's Comments Smear Path Review ESR PT INR APTT PTT (Heparin Protocol) ABG pH ABG pCO2 ABG pO2 ABG HCO3 ABG O2 Saturation ABG Base Excess VBG pH 7.43 VBG pCO2 54 VBG pO2 42 VBG HCO3 35 VBG O2 Saturation 79.3 VBG Base Excess 8.8 Oxygen Given Sodium Potassium Chloride Carbon Dioxide Anion Gap BUN Creatinine Estim Creat Clear Calc Estimated GFR POC Glucose Random Glucose Fasting Glucose Osmolality Lactic Acid Lactic Acid Fup @ 2Hr Lactic Acid Fup @ 4Hr Calcium Uric Acid Phosphorus Magnesium Total Bilirubin 1.0 Direct Bilirubin 0.9 H AST 50 H D ALT 34 Alkaline Phosphatase 215 H Ammonia Lactate Dehydrogenase Total Creatine Kinase C-Reactive Protein B-Natriuretic Peptide 874 H Total Protein 7.6 Albumin 3.2 L Lipase Vitamin B12 Vitamin B1 Procalcitonin Urine Color Urine Appearance Urine pH Ur Specific [place] Urine Protein Urine Glucose (UA) Urine Ketones Urine Blood Urine Nitrite Ur Leukocyte Esterase Urine RBC Urine WBC Ur Squamous Epith Cells Amorphous Sediment Urine Bacteria Hyaline Casts U Random Total Protein Ur Random Sodium Urine Creatinine Protein/Creatinin Ratio Bronchial Fluid WBC Bronchial Fluid RBC Bronchial Neutrophils Stool Leukocytes, Qual Random Vancomycin Digoxin Salicylates Urine Opiates Screen Ur Barbiturates Screen Ur Phencyclidine Scrn Ur Amphetamines Screen U Benzodiazepines Scrn Urine Cocaine Screen U Marijuana (THC) Screen Ethyl Alcohol T.pallidum Ab (EIA) C. difficile Toxin A&B C. difficile Antigen C. difficile Interpret Coronavirus (PCR) COVID-19 (LINDEN) COVID-19 Clin Com Hepatitis A IgM Ab Hep Bs Antigen Hep Bs Antibody Hep B Core Total Ab Hepatitis C Ab (EIA) HIV 1&2 Ab/P24 Ag 4thGn Influenza Type A (PCR) Influenza Type B (PCR) RSV RNA Qual (PCR) SARS-CoV-2 IgG Ab Blood Type Antibody Screen 06/29/20 06/29/20 06/29/20 05:27 05:27 05:27 WBC 15.0 H RBC 3.69 L Hgb 11.7 L Hct 37.5 L MCV 101.6 H MCH 31.7 MCHC 31.2 RDW 14.6 Plt Count 531 H MPV 12.6 H Immature Gran % (Auto) 0.5 H Neut % (Auto) 73.0 Lymph % (Auto) 17.2 L [place] % (Auto) 6.5 Eos % (Auto) 2.1 Baso % (Auto) 0.7 Lymph # (Auto) 2.6 [place] # (Auto) 1.0 Eos # (Auto) 0.3 Baso # (Auto) 0.1 Abs Immat Gran (auto) 0.08 H Absolute Neuts (auto) 11.0 H Absolute Nucleated RBC 0.000 Nucleated RBC % (auto) 0.0 Neutrophils % (Manual) Band Neutrophils % Lymphocytes % (Manual) Monocytes % (Manual) Abs Neuts (Manual) Lymphocytes # (Manual) Monocytes # (Manual) Nucleated RBCs Platelet Estimate Plt Morphology Comment RBC Morphology Polychromasia Microcytosis Macrocytosis Tear Drop Cells [place] Cells Smear Tech's Comments Smear Path Review ESR PT INR APTT PTT (Heparin Protocol) ABG pH ABG pCO2 ABG pO2 ABG HCO3 ABG O2 Saturation ABG Base Excess VBG pH 7.45 H VBG pCO2 58 VBG pO2 49 VBG HCO3 39 VBG O2 Saturation 83.5 VBG Base Excess 13.0 Oxygen Given Sodium 143 Potassium 4.7 Chloride 98 Carbon Dioxide 34 H Anion Gap 16 BUN 34 H Creatinine 0.76 Estim Creat Clear Calc 130.5 Estimated GFR > 60 POC Glucose Random Glucose 169 H Fasting Glucose Osmolality Lactic Acid Lactic Acid Fup @ 2Hr Lactic Acid Fup @ 4Hr Calcium 8.6 D Uric Acid Phosphorus 4.3 Magnesium 2.0 Total Bilirubin Direct Bilirubin AST ALT Alkaline Phosphatase Ammonia Lactate Dehydrogenase Total Creatine Kinase C-Reactive Protein B-Natriuretic Peptide Total Protein Albumin 3.1 L Lipase Vitamin B12 Vitamin B1 Procalcitonin Urine Color Urine Appearance Urine pH Ur Specific [place] Urine Protein Urine Glucose (UA) Urine Ketones Urine Blood Urine Nitrite Ur Leukocyte Esterase Urine RBC Urine WBC Ur Squamous Epith Cells Amorphous Sediment Urine Bacteria Hyaline Casts U Random Total Protein Ur Random Sodium Urine Creatinine Protein/Creatinin Ratio Bronchial Fluid WBC Bronchial Fluid RBC Bronchial Neutrophils Stool Leukocytes, Qual Random Vancomycin Digoxin Salicylates Urine Opiates Screen Ur Barbiturates Screen Ur Phencyclidine Scrn Ur Amphetamines Screen U Benzodiazepines Scrn Urine Cocaine Screen U Marijuana (THC) Screen Ethyl Alcohol T.pallidum Ab (EIA) C. difficile Toxin A&B C. difficile Antigen C. difficile Interpret Coronavirus (PCR) COVID-19 (LINDEN) COVID-19 Clin Com Hepatitis A IgM Ab Hep Bs Antigen Hep Bs Antibody Hep B Core Total Ab Hepatitis C Ab (EIA) HIV 1&2 Ab/P24 Ag 4thGn Influenza Type A (PCR) Influenza Type B (PCR) RSV RNA Qual (PCR) SARS-CoV-2 IgG Ab Blood Type Antibody Screen 06/29/20 06/30/20 06/30/20 08:30 05:11 05:11 WBC RBC Hgb Hct MCV MCH MCHC RDW Plt Count MPV Immature Gran % (Auto) Neut % (Auto) Lymph % (Auto) [place] % (Auto) Eos % (Auto) Baso % (Auto) Lymph # (Auto) [place] # (Auto) Eos # (Auto) Baso # (Auto) Abs Immat Gran (auto) Absolute Neuts (auto) Absolute Nucleated RBC Nucleated RBC % (auto) Neutrophils % (Manual) Band Neutrophils % Lymphocytes % (Manual) Monocytes % (Manual) Abs Neuts (Manual) Lymphocytes # (Manual) Monocytes # (Manual) Nucleated RBCs Platelet Estimate Plt Morphology Comment RBC Morphology Polychromasia Microcytosis Macrocytosis Tear Drop Cells [place] Cells Smear Tech's Comments Smear Path Review ESR PT INR APTT PTT (Heparin Protocol) ABG pH ABG pCO2 ABG pO2 ABG HCO3 ABG O2 Saturation ABG Base Excess VBG pH 7.43 VBG pCO2 56 VBG pO2 41 VBG HCO3 36 VBG O2 Saturation 74.6 VBG Base Excess 9.9 Oxygen Given Sodium 143 Potassium 4.3 Chloride 97 Carbon Dioxide 37 H Anion Gap 13 BUN 36 H Creatinine 0.76 Estim Creat Clear Calc 130.5 Estimated GFR > 60 POC Glucose Random Glucose 165 H Fasting Glucose Osmolality Lactic Acid Lactic Acid Fup @ 2Hr Lactic Acid Fup @ 4Hr Calcium 8.9 Uric Acid Phosphorus 4.1 Magnesium 2.1 Total Bilirubin Direct Bilirubin AST ALT Alkaline Phosphatase Ammonia Lactate Dehydrogenase Total Creatine Kinase C-Reactive Protein B-Natriuretic Peptide 805 H Total Protein Albumin 3.1 L Lipase Vitamin B12 Vitamin B1 Procalcitonin Urine Color Urine Appearance Urine pH Ur Specific [place] Urine Protein Urine Glucose (UA) Urine Ketones Urine Blood Urine Nitrite Ur Leukocyte Esterase Urine RBC Urine WBC Ur Squamous Epith Cells Amorphous Sediment Urine Bacteria Hyaline Casts U Random Total Protein Ur Random Sodium Urine Creatinine Protein/Creatinin Ratio Bronchial Fluid WBC Bronchial Fluid RBC Bronchial Neutrophils Stool Leukocytes, Qual Random Vancomycin Digoxin Salicylates Urine Opiates Screen Ur Barbiturates Screen Ur Phencyclidine Scrn Ur Amphetamines Screen U Benzodiazepines Scrn Urine Cocaine Screen U Marijuana (THC) Screen Ethyl Alcohol T.pallidum Ab (EIA) C. difficile Toxin A&B C. difficile Antigen C. difficile Interpret Coronavirus (PCR) COVID-19 (LINDEN) COVID-19 Clin Com Hepatitis A IgM Ab Hep Bs Antigen Hep Bs Antibody Hep B Core Total Ab Hepatitis C Ab (EIA) HIV 1&2 Ab/P24 Ag 4thGn Influenza Type A (PCR) Influenza Type B (PCR) RSV RNA Qual (PCR) SARS-CoV-2 IgG Ab Blood Type Antibody Screen 06/30/20 06/30/20 06/30/20 05:11 05:11 07:26 WBC 17.4 H RBC 3.52 L Hgb 11.3 L Hct 35.9 L MCV 102.0 H MCH 32.1 MCHC 31.5 RDW 14.7 Plt Count 521 H MPV 12.3 Immature Gran % (Auto) 0.6 H Neut % (Auto) 75.8 H Lymph % (Auto) 15.6 L [place] % (Auto) 6.0 Eos % (Auto) 1.5 Baso % (Auto) 0.5 Lymph # (Auto) 2.7 [place] # (Auto) 1.1 Eos # (Auto) 0.3 Baso # (Auto) 0.1 Abs Immat Gran (auto) 0.10 H Absolute Neuts (auto) 13.2 H Absolute Nucleated RBC 0.000 Nucleated RBC % (auto) 0.0 Neutrophils % (Manual) Band Neutrophils % Lymphocytes % (Manual) Monocytes % (Manual) Abs Neuts (Manual) Lymphocytes # (Manual) Monocytes # (Manual) Nucleated RBCs Platelet Estimate Plt Morphology Comment RBC Morphology Polychromasia Microcytosis Macrocytosis Tear Drop Cells [place] Cells Smear Tech's Comments Smear Path Review ESR PT INR APTT PTT (Heparin Protocol) ABG pH ABG pCO2 ABG pO2 ABG HCO3 ABG O2 Saturation ABG Base Excess VBG pH 7.42 7.48 H VBG pCO2 53 54 VBG pO2 41 68 VBG HCO3 33 40 VBG O2 Saturation 73.6 93.4 VBG Base Excess 6.9 13.8 Oxygen Given Sodium Potassium Chloride Carbon Dioxide Anion Gap BUN Creatinine Estim Creat Clear Calc Estimated GFR POC Glucose Random Glucose Fasting Glucose Osmolality Lactic Acid Lactic Acid Fup @ 2Hr Lactic Acid Fup @ 4Hr Calcium Uric Acid Phosphorus Magnesium Total Bilirubin Direct Bilirubin AST ALT Alkaline Phosphatase Ammonia Lactate Dehydrogenase Total Creatine Kinase C-Reactive Protein B-Natriuretic Peptide Total Protein Albumin Lipase Vitamin B12 Vitamin B1 Procalcitonin Urine Color Urine Appearance Urine pH Ur Specific [place] Urine Protein Urine Glucose (UA) Urine Ketones Urine Blood Urine Nitrite Ur Leukocyte Esterase Urine RBC Urine WBC Ur Squamous Epith Cells Amorphous Sediment Urine Bacteria Hyaline Casts U Random Total Protein Ur Random Sodium Urine Creatinine Protein/Creatinin Ratio Bronchial Fluid WBC Bronchial Fluid RBC Bronchial Neutrophils Stool Leukocytes, Qual Random Vancomycin Digoxin Salicylates Urine Opiates Screen Ur Barbiturates Screen Ur Phencyclidine Scrn Ur Amphetamines Screen U Benzodiazepines Scrn Urine Cocaine Screen U Marijuana (THC) Screen Ethyl Alcohol T.pallidum Ab (EIA) C. difficile Toxin A&B C. difficile Antigen C. difficile Interpret Coronavirus (PCR) COVID-19 (LINDEN) COVID-19 Clin Com Hepatitis A IgM Ab Hep Bs Antigen Hep Bs Antibody Hep B Core Total Ab Hepatitis C Ab (EIA) HIV 1&2 Ab/P24 Ag 4thGn Influenza Type A (PCR) Influenza Type B (PCR) RSV RNA Qual (PCR) SARS-CoV-2 IgG Ab Blood Type Antibody Screen 07/01/20 07/01/20 07/01/20 06:03 06:03 06:03 WBC 15.2 H RBC 4.01 L Hgb 12.6 L Hct 40.6 L MCV 101.2 H MCH 31.4 MCHC 31.0 RDW 14.4 Plt Count 457 H MPV 12.7 H Immature Gran % (Auto) 0.6 H Neut % (Auto) 76.3 H Lymph % (Auto) 15.3 L [place] % (Auto) 6.1 Eos % (Auto) 1.2 Baso % (Auto) 0.5 Lymph # (Auto) 2.3 [place] # (Auto) 0.9 Eos # (Auto) 0.2 Baso # (Auto) 0.1 Abs Immat Gran (auto) 0.09 H Absolute Neuts (auto) 11.6 H Absolute Nucleated RBC 0.000 Nucleated RBC % (auto) 0.0 Neutrophils % (Manual) Band Neutrophils % Lymphocytes % (Manual) Monocytes % (Manual) Abs Neuts (Manual) Lymphocytes # (Manual) Monocytes # (Manual) Nucleated RBCs Platelet Estimate Plt Morphology Comment RBC Morphology Polychromasia Microcytosis Macrocytosis Tear Drop Cells [place] Cells Smear Tech's Comments Smear Path Review ESR PT INR APTT PTT (Heparin Protocol) ABG pH ABG pCO2 ABG pO2 ABG HCO3 ABG O2 Saturation ABG Base Excess VBG pH 7.44 H VBG pCO2 60 VBG pO2 37 VBG HCO3 40 VBG O2 Saturation 71.0 VBG Base Excess 13.3 Oxygen Given Sodium 145 Potassium 4.8 Chloride 98 Carbon Dioxide 34 H Anion Gap 18 BUN 34 H Creatinine 0.76 Estim Creat Clear Calc 130.5 Estimated GFR > 60 POC Glucose Random Glucose 149 H Fasting Glucose Osmolality Lactic Acid Lactic Acid Fup @ 2Hr Lactic Acid Fup @ 4Hr Calcium 9.1 Uric Acid Phosphorus Magnesium Total Bilirubin Direct Bilirubin AST ALT Alkaline Phosphatase Ammonia Lactate Dehydrogenase Total Creatine Kinase C-Reactive Protein B-Natriuretic Peptide Total Protein Albumin 3.1 L Lipase Vitamin B12 Vitamin B1 Procalcitonin Urine Color Urine Appearance Urine pH Ur Specific [place] Urine Protein Urine Glucose (UA) Urine Ketones Urine Blood Urine Nitrite Ur Leukocyte Esterase Urine RBC Urine WBC Ur Squamous Epith Cells Amorphous Sediment Urine Bacteria Hyaline Casts U Random Total Protein Ur Random Sodium Urine Creatinine Protein/Creatinin Ratio Bronchial Fluid WBC Bronchial Fluid RBC Bronchial Neutrophils Stool Leukocytes, Qual Random Vancomycin Digoxin Salicylates Urine Opiates Screen Ur Barbiturates Screen Ur Phencyclidine Scrn Ur Amphetamines Screen U Benzodiazepines Scrn Urine Cocaine Screen U Marijuana (THC) Screen Ethyl Alcohol T.pallidum Ab (EIA) C. difficile Toxin A&B C. difficile Antigen C. difficile Interpret Coronavirus (PCR) COVID-19 (LINDEN) COVID-19 Clin Com Hepatitis A IgM Ab Hep Bs Antigen Hep Bs Antibody Hep B Core Total Ab Hepatitis C Ab (EIA) HIV 1&2 Ab/P24 Ag 4thGn Influenza Type A (PCR) Influenza Type B (PCR) RSV RNA Qual (PCR) SARS-CoV-2 IgG Ab Blood Type Antibody Screen 07/01/20 07/02/20 07/02/20 06:03 05:52 05:52 WBC 16.0 H RBC 3.75 L Hgb 11.9 L Hct 38.1 L MCV 101.6 H MCH 31.7 MCHC 31.2 RDW 14.5 Plt Count 413 H MPV 12.4 Immature Gran % (Auto) 0.4 Neut % (Auto) 75.1 H Lymph % (Auto) 16.3 L [place] % (Auto) 6.4 Eos % (Auto) 1.4 Baso % (Auto) 0.4 Lymph # (Auto) 2.6 [place] # (Auto) 1.0 Eos # (Auto) 0.2 Baso # (Auto) 0.1 Abs Immat Gran (auto) 0.07 H Absolute Neuts (auto) 12.0 H Absolute Nucleated RBC 0.000 Nucleated RBC % (auto) 0.0 Neutrophils % (Manual) Band Neutrophils % Lymphocytes % (Manual) Monocytes % (Manual) Abs Neuts (Manual) Lymphocytes # (Manual) Monocytes # (Manual) Nucleated RBCs Platelet Estimate Plt Morphology Comment RBC Morphology Polychromasia Microcytosis Macrocytosis Tear Drop Cells [place] Cells Smear Tech's Comments Smear Path Review ESR PT INR APTT PTT (Heparin Protocol) ABG pH ABG pCO2 ABG pO2 ABG HCO3 ABG O2 Saturation ABG Base Excess VBG pH VBG pCO2 VBG pO2 VBG HCO3 VBG O2 Saturation VBG Base Excess Oxygen Given Sodium 144 Potassium 4.9 Chloride 97 Carbon Dioxide 36 H Anion Gap 16 BUN 34 H Creatinine 0.78 Estim Creat Clear Calc 127.1 Estimated GFR > 60 POC Glucose Random Glucose 158 H Fasting Glucose Osmolality Lactic Acid Lactic Acid Fup @ 2Hr Lactic Acid Fup @ 4Hr Calcium 9.1 Uric Acid Phosphorus Magnesium 2.1 Total Bilirubin 0.9 Direct Bilirubin AST 53 H ALT 33 Alkaline Phosphatase 207 H Ammonia Lactate Dehydrogenase Total Creatine Kinase C-Reactive Protein B-Natriuretic Peptide Total Protein 7.9 Albumin 3.1 L Lipase Vitamin B12 Vitamin B1 Procalcitonin Urine Color Urine Appearance Urine pH Ur Specific [place] Urine Protein Urine Glucose (UA) Urine Ketones Urine Blood Urine Nitrite Ur Leukocyte Esterase Urine RBC Urine WBC Ur Squamous Epith Cells Amorphous Sediment Urine Bacteria Hyaline Casts U Random Total Protein Ur Random Sodium Urine Creatinine Protein/Creatinin Ratio Bronchial Fluid WBC Bronchial Fluid RBC Bronchial Neutrophils Stool Leukocytes, Qual Random Vancomycin Digoxin 1.5 Salicylates Urine Opiates Screen Ur Barbiturates Screen Ur Phencyclidine Scrn Ur Amphetamines Screen U Benzodiazepines Scrn Urine Cocaine Screen U Marijuana (THC) Screen Ethyl Alcohol T.pallidum Ab (EIA) C. difficile Toxin A&B C. difficile Antigen C. difficile Interpret Coronavirus (PCR) COVID-19 (LINDEN) COVID-19 Clin Com Hepatitis A IgM Ab Hep Bs Antigen Hep Bs Antibody Hep B Core Total Ab Hepatitis C Ab (EIA) HIV 1&2 Ab/P24 Ag 4thGn Influenza Type A (PCR) Influenza Type B (PCR) RSV RNA Qual (PCR) SARS-CoV-2 IgG Ab Blood Type Antibody Screen 07/06/20 07/07/20 07/07/20 05:21 05:17 11:04 WBC RBC Hgb Hct MCV MCH MCHC RDW Plt Count MPV Immature Gran % (Auto) Neut % (Auto) Lymph % (Auto) [place] % (Auto) Eos % (Auto) Baso % (Auto) Lymph # (Auto) [place] # (Auto) Eos # (Auto) Baso # (Auto) Abs Immat Gran (auto) Absolute Neuts (auto) Absolute Nucleated RBC Nucleated RBC % (auto) Neutrophils % (Manual) Band Neutrophils % Lymphocytes % (Manual) Monocytes % (Manual) Abs Neuts (Manual) Lymphocytes # (Manual) Monocytes # (Manual) Nucleated RBCs Platelet Estimate Plt Morphology Comment RBC Morphology Polychromasia Microcytosis Macrocytosis Tear Drop Cells [place] Cells Smear Tech's Comments Smear Path Review ESR PT INR APTT PTT (Heparin Protocol) ABG pH ABG pCO2 ABG pO2 ABG HCO3 ABG O2 Saturation ABG Base Excess VBG pH VBG pCO2 VBG pO2 VBG HCO3 VBG O2 Saturation VBG Base Excess Oxygen Given Sodium 143 143 Potassium 5.7 H 4.9 Chloride 97 96 Carbon Dioxide 33 H 34 H Anion Gap 19 18 BUN 49 H 52 H Creatinine 1.04 1.13 Estim Creat Clear Calc 92.3 85.0 Estimated GFR > 60 > 60 POC Glucose 156 H Random Glucose 169 H 174 H Fasting Glucose Osmolality Lactic Acid Lactic Acid Fup @ 2Hr Lactic Acid Fup @ 4Hr Calcium 9.5 9.8 Uric Acid Phosphorus 5.7 H Magnesium 2.8 H Total Bilirubin 0.7 Direct Bilirubin AST 62 H ALT 43 H Alkaline Phosphatase 216 H Ammonia Lactate Dehydrogenase Total Creatine Kinase C-Reactive Protein B-Natriuretic Peptide Total Protein 8.6 H Albumin 3.3 L Lipase Vitamin B12 Vitamin B1 Procalcitonin Urine Color Urine Appearance Urine pH Ur Specific [place] Urine Protein Urine Glucose (UA) Urine Ketones Urine Blood Urine Nitrite Ur Leukocyte Esterase Urine RBC Urine WBC Ur Squamous Epith Cells Amorphous Sediment Urine Bacteria Hyaline Casts U Random Total Protein Ur Random Sodium Urine Creatinine Protein/Creatinin Ratio Bronchial Fluid WBC Bronchial Fluid RBC Bronchial Neutrophils Stool Leukocytes, Qual Random Vancomycin Digoxin Salicylates Urine Opiates Screen Ur Barbiturates Screen Ur Phencyclidine Scrn Ur Amphetamines Screen U Benzodiazepines Scrn Urine Cocaine Screen U Marijuana (THC) Screen Ethyl Alcohol T.pallidum Ab (EIA) C. difficile Toxin A&B C. difficile Antigen C. difficile Interpret Coronavirus (PCR) COVID-19 (LINDEN) COVID-19 Clin Com Hepatitis A IgM Ab Hep Bs Antigen Hep Bs Antibody Hep B Core Total Ab Hepatitis C Ab (EIA) HIV 1&2 Ab/P24 Ag 4thGn Influenza Type A (PCR) Influenza Type B (PCR) RSV RNA Qual (PCR) SARS-CoV-2 IgG Ab Blood Type Antibody Screen 07/08/20 07/08/20 07/08/20 07:38 07:39 07:39 WBC 17.2 H RBC 4.35 L Hgb 13.4 L Hct 42.6 MCV 97.9 MCH 30.8 MCHC 31.5 RDW 14.5 Plt Count 297 D MPV 12.5 H Immature Gran % (Auto) 0.3 Neut % (Auto) 71.0 Lymph % (Auto) 19.0 L [place] % (Auto) 8.6 Eos % (Auto) 0.6 Baso % (Auto) 0.5 Lymph # (Auto) 3.3 [place] # (Auto) 1.5 H Eos # (Auto) 0.1 Baso # (Auto) 0.1 Abs Immat Gran (auto) 0.06 H Absolute Neuts (auto) 12.2 H Absolute Nucleated RBC 0.000 Nucleated RBC % (auto) 0.0 Neutrophils % (Manual) Band Neutrophils % Lymphocytes % (Manual) Monocytes % (Manual) Abs Neuts (Manual) Lymphocytes # (Manual) Monocytes # (Manual) Nucleated RBCs Platelet Estimate Plt Morphology Comment RBC Morphology Polychromasia Microcytosis Macrocytosis Tear Drop Cells [place] Cells Smear Tech's Comments Smear Path Review ESR PT INR APTT PTT (Heparin Protocol) ABG pH ABG pCO2 ABG pO2 ABG HCO3 ABG O2 Saturation ABG Base Excess VBG pH VBG pCO2 VBG pO2 VBG HCO3 VBG O2 Saturation VBG Base Excess Oxygen Given Sodium 145 Potassium 5.4 H Chloride 98 Carbon Dioxide 34 H Anion Gap 18 BUN 70 H Creatinine 1.85 H Estim Creat Clear Calc 51.9 Estimated GFR 38 POC Glucose Random Glucose 198 H Fasting Glucose Osmolality Lactic Acid 1.4 Lactic Acid Fup @ 2Hr Lactic Acid Fup @ 4Hr Calcium 10.1 Uric Acid Phosphorus Magnesium Total Bilirubin Direct Bilirubin AST ALT Alkaline Phosphatase Ammonia Lactate Dehydrogenase Total Creatine Kinase C-Reactive Protein B-Natriuretic Peptide Total Protein Albumin Lipase Vitamin B12 Vitamin B1 Procalcitonin Urine Color Urine Appearance Urine pH Ur Specific [place] Urine Protein Urine Glucose (UA) Urine Ketones Urine Blood Urine Nitrite Ur Leukocyte Esterase Urine RBC Urine WBC Ur Squamous Epith Cells Amorphous Sediment Urine Bacteria Hyaline Casts U Random Total Protein Ur Random Sodium Urine Creatinine Protein/Creatinin Ratio Bronchial Fluid WBC Bronchial Fluid RBC Bronchial Neutrophils Stool Leukocytes, Qual Random Vancomycin Digoxin Salicylates Urine Opiates Screen Ur Barbiturates Screen Ur Phencyclidine Scrn Ur Amphetamines Screen U Benzodiazepines Scrn Urine Cocaine Screen U Marijuana (THC) Screen Ethyl Alcohol T.pallidum Ab (EIA) C. difficile Toxin A&B C. difficile Antigen C. difficile Interpret Coronavirus (PCR) COVID-19 (LINDEN) COVID-19 Clin Com Hepatitis A IgM Ab Hep Bs Antigen Hep Bs Antibody Hep B Core Total Ab Hepatitis C Ab (EIA) HIV 1&2 Ab/P24 Ag 4thGn Influenza Type A (PCR) Influenza Type B (PCR) RSV RNA Qual (PCR) SARS-CoV-2 IgG Ab Blood Type Antibody Screen 07/08/20 07/09/20 07/09/20 12:55 05:40 05:40 WBC 12.6 H RBC 4.27 L Hgb 13.3 L Hct 42.4 MCV 99.3 H MCH 31.1 MCHC 31.4 RDW 14.5 Plt Count 238 MPV 12.9 H Immature Gran % (Auto) Neut % (Auto) Lymph % (Auto) [place] % (Auto) Eos % (Auto) Baso % (Auto) Lymph # (Auto) [place] # (Auto) Eos # (Auto) Baso # (Auto) Abs Immat Gran (auto) Absolute Neuts (auto) Absolute Nucleated RBC 0.000 Nucleated RBC % (auto) 0.0 Neutrophils % (Manual) Band Neutrophils % Lymphocytes % (Manual) Monocytes % (Manual) Abs Neuts (Manual) Lymphocytes # (Manual) Monocytes # (Manual) Nucleated RBCs Platelet Estimate Plt Morphology Comment RBC Morphology Polychromasia Microcytosis Macrocytosis Tear Drop Cells [place] Cells Smear Tech's Comments Smear Path Review ESR PT INR APTT PTT (Heparin Protocol) ABG pH ABG pCO2 ABG pO2 ABG HCO3 ABG O2 Saturation ABG Base Excess VBG pH VBG pCO2 VBG pO2 VBG HCO3 VBG O2 Saturation VBG Base Excess Oxygen Given Sodium 145 Potassium 4.7 Chloride 101 Carbon Dioxide 31 H Anion Gap 18 BUN 79 H Creatinine 1.69 H Estim Creat Clear Calc 56.8 Estimated GFR 42 POC Glucose Random Glucose 165 H Fasting Glucose Osmolality Lactic Acid Lactic Acid Fup @ 2Hr Lactic Acid Fup @ 4Hr Calcium 9.5 Uric Acid Phosphorus Magnesium 2.8 H Total Bilirubin Direct Bilirubin AST ALT Alkaline Phosphatase Ammonia Lactate Dehydrogenase Total Creatine Kinase C-Reactive Protein B-Natriuretic Peptide Total Protein Albumin Lipase Vitamin B12 Vitamin B1 Procalcitonin Urine Color YELLOW Urine Appearance HAZY Urine pH >= 9.0 H Ur Specific [place] 1.010 Urine Protein 1+ H Urine Glucose (UA) NEG Urine Ketones NEG Urine Blood 1+ H Urine Nitrite NEG Ur Leukocyte Esterase NEG Urine RBC 10-14 H Urine WBC 0 Ur Squamous Epith Cells 1+ Amorphous Sediment Urine Bacteria NONE Hyaline Casts U Random Total Protein Ur Random Sodium Urine Creatinine Protein/Creatinin Ratio Bronchial Fluid WBC Bronchial Fluid RBC Bronchial Neutrophils Stool Leukocytes, Qual Random Vancomycin Digoxin Salicylates Urine Opiates Screen Ur Barbiturates Screen Ur Phencyclidine Scrn Ur Amphetamines Screen U Benzodiazepines Scrn Urine Cocaine Screen U Marijuana (THC) Screen Ethyl Alcohol T.pallidum Ab (EIA) C. difficile Toxin A&B C. difficile Antigen C. difficile Interpret Coronavirus (PCR) COVID-19 (LINDEN) COVID-19 Clin Com Hepatitis A IgM Ab Hep Bs Antigen Hep Bs Antibody Hep B Core Total Ab Hepatitis C Ab (EIA) HIV 1&2 Ab/P24 Ag 4thGn Influenza Type A (PCR) Influenza Type B (PCR) RSV RNA Qual (PCR) SARS-CoV-2 IgG Ab Blood Type Antibody Screen 07/10/20 07/11/20 07/12/20 05:12 05:26 05:17 WBC RBC Hgb Hct MCV MCH MCHC RDW Plt Count MPV Immature Gran % (Auto) Neut % (Auto) Lymph % (Auto) [place] % (Auto) Eos % (Auto) Baso % (Auto) Lymph # (Auto) [place] # (Auto) Eos # (Auto) Baso # (Auto) Abs Immat Gran (auto) Absolute Neuts (auto) Absolute Nucleated RBC Nucleated RBC % (auto) Neutrophils % (Manual) Band Neutrophils % Lymphocytes % (Manual) Monocytes % (Manual) Abs Neuts (Manual) Lymphocytes # (Manual) Monocytes # (Manual) Nucleated RBCs Platelet Estimate Plt Morphology Comment RBC Morphology Polychromasia Microcytosis Macrocytosis Tear Drop Cells [place] Cells Smear Tech's Comments Smear Path Review ESR PT INR APTT PTT (Heparin Protocol) ABG pH ABG pCO2 ABG pO2 ABG HCO3 ABG O2 Saturation ABG Base Excess VBG pH VBG pCO2 VBG pO2 VBG HCO3 VBG O2 Saturation VBG Base Excess Oxygen Given Sodium 143 143 142 Potassium 4.9 4.9 5.2 H Chloride 104 103 102 Carbon Dioxide 27 27 28 Anion Gap 17 18 17 BUN 64 H 51 H 52 H Creatinine 1.41 H 1.26 1.33 Estim Creat Clear Calc 68.1 69.2 65.6 Estimated GFR 51 59 55 POC Glucose Random Glucose 169 H 154 H 161 H Fasting Glucose Osmolality Lactic Acid Lactic Acid Fup @ 2Hr Lactic Acid Fup @ 4Hr Calcium 9.7 10.1 10.2 Uric Acid Phosphorus Magnesium Total Bilirubin Direct Bilirubin AST ALT Alkaline Phosphatase Ammonia Lactate Dehydrogenase Total Creatine Kinase C-Reactive Protein B-Natriuretic Peptide Total Protein Albumin Lipase Vitamin B12 Vitamin B1 Procalcitonin Urine Color Urine Appearance Urine pH Ur Specific [place] Urine Protein Urine Glucose (UA) Urine Ketones Urine Blood Urine Nitrite Ur Leukocyte Esterase Urine RBC Urine WBC Ur Squamous Epith Cells Amorphous Sediment Urine Bacteria Hyaline Casts U Random Total Protein Ur Random Sodium Urine Creatinine Protein/Creatinin Ratio Bronchial Fluid WBC Bronchial Fluid RBC Bronchial Neutrophils Stool Leukocytes, Qual Random Vancomycin Digoxin Salicylates Urine Opiates Screen Ur Barbiturates Screen Ur Phencyclidine Scrn Ur Amphetamines Screen U Benzodiazepines Scrn Urine Cocaine Screen U Marijuana (THC) Screen Ethyl Alcohol T.pallidum Ab (EIA) C. difficile Toxin A&B C. difficile Antigen C. difficile Interpret Coronavirus (PCR) COVID-19 (LINDEN) COVID-19 Clin Com Hepatitis A IgM Ab Hep Bs Antigen Hep Bs Antibody Hep B Core Total Ab Hepatitis C Ab (EIA) HIV 1&2 Ab/P24 Ag 4thGn Influenza Type A (PCR) Influenza Type B (PCR) RSV RNA Qual (PCR) SARS-CoV-2 IgG Ab Blood Type Antibody Screen 07/13/20 07/14/20 07/14/20 06:00 05:15 10:05 WBC RBC Hgb Hct MCV MCH MCHC RDW Plt Count MPV Immature Gran % (Auto) Neut % (Auto) Lymph % (Auto) [place] % (Auto) Eos % (Auto) Baso % (Auto) Lymph # (Auto) [place] # (Auto) Eos # (Auto) Baso # (Auto) Abs Immat Gran (auto) Absolute Neuts (auto) Absolute Nucleated RBC Nucleated RBC % (auto) Neutrophils % (Manual) Band Neutrophils % Lymphocytes % (Manual) Monocytes % (Manual) Abs Neuts (Manual) Lymphocytes # (Manual) Monocytes # (Manual) Nucleated RBCs Platelet Estimate Plt Morphology Comment RBC Morphology Polychromasia Microcytosis Macrocytosis Tear Drop Cells [place] Cells Smear Tech's Comments Smear Path Review ESR PT INR APTT PTT (Heparin Protocol) ABG pH 7.46 H ABG pCO2 47 H ABG pO2 79 L ABG HCO3 33 H ABG O2 Saturation 94.0 ABG Base Excess 8.6 VBG pH VBG pCO2 VBG pO2 VBG HCO3 VBG O2 Saturation VBG Base Excess Oxygen Given ROOM AIR Sodium 141 140 Potassium 4.8 4.9 Chloride 100 99 Carbon Dioxide 28 28 Anion Gap 18 18 BUN 52 H 52 H Creatinine 1.31 1.27 Estim Creat Clear Calc 66.6 68.7 Estimated GFR 56 58 POC Glucose Random Glucose 158 H 164 H Fasting Glucose Osmolality Lactic Acid Lactic Acid Fup @ 2Hr Lactic Acid Fup @ 4Hr Calcium 10.1 10.5 H Uric Acid Phosphorus Magnesium Total Bilirubin Direct Bilirubin AST ALT Alkaline Phosphatase Ammonia Lactate Dehydrogenase Total Creatine Kinase C-Reactive Protein B-Natriuretic Peptide Total Protein Albumin Lipase Vitamin B12 Vitamin B1 Procalcitonin Urine Color Urine Appearance Urine pH Ur Specific [place] Urine Protein Urine Glucose (UA) Urine Ketones Urine Blood Urine Nitrite Ur Leukocyte Esterase Urine RBC Urine WBC Ur Squamous Epith Cells Amorphous Sediment Urine Bacteria Hyaline Casts U Random Total Protein Ur Random Sodium Urine Creatinine Protein/Creatinin Ratio Bronchial Fluid WBC Bronchial Fluid RBC Bronchial Neutrophils Stool Leukocytes, Qual Random Vancomycin Digoxin Salicylates Urine Opiates Screen Ur Barbiturates Screen Ur Phencyclidine Scrn Ur Amphetamines Screen U Benzodiazepines Scrn Urine Cocaine Screen U Marijuana (THC) Screen Ethyl Alcohol T.pallidum Ab (EIA) C. difficile Toxin A&B C. difficile Antigen C. difficile Interpret Coronavirus (PCR) COVID-19 (LINDEN) COVID-19 Clin Com Hepatitis A IgM Ab Hep Bs Antigen Hep Bs Antibody Hep B Core Total Ab Hepatitis C Ab (EIA) HIV 1&2 Ab/P24 Ag 4thGn Influenza Type A (PCR) Influenza Type B (PCR) RSV RNA Qual (PCR) SARS-CoV-2 IgG Ab Blood Type Antibody Screen 07/14/20 07/15/20 07/16/20 10:25 05:05 05:24 WBC RBC Hgb Hct MCV MCH MCHC RDW Plt Count MPV Immature Gran % (Auto) Neut % (Auto) Lymph % (Auto) [place] % (Auto) Eos % (Auto) Baso % (Auto) Lymph # (Auto) [place] # (Auto) Eos # (Auto) Baso # (Auto) Abs Immat Gran (auto) Absolute Neuts (auto) Absolute Nucleated RBC Nucleated RBC % (auto) Neutrophils % (Manual) Band Neutrophils % Lymphocytes % (Manual) Monocytes % (Manual) Abs Neuts (Manual) Lymphocytes # (Manual) Monocytes # (Manual) Nucleated RBCs Platelet Estimate Plt Morphology Comment RBC Morphology Polychromasia Microcytosis Macrocytosis Tear Drop Cells [place] Cells Smear Tech's Comments Smear Path Review ESR PT INR APTT PTT (Heparin Protocol) ABG pH ABG pCO2 ABG pO2 ABG HCO3 ABG O2 Saturation ABG Base Excess VBG pH 7.46 H VBG pCO2 42 VBG pO2 95 VBG HCO3 30 VBG O2 Saturation 97.0 VBG Base Excess 5.9 Oxygen Given Sodium 139 136 Potassium 4.9 5.1 Chloride 97 94 L Carbon Dioxide 28 33 H Anion Gap 19 14 BUN 49 H 47 H Creatinine 1.26 1.18 Estim Creat Clear Calc 69.2 73.9 Estimated GFR 59 > 60 POC Glucose Random Glucose 176 H 143 H Fasting Glucose Osmolality Lactic Acid Lactic Acid Fup @ 2Hr Lactic Acid Fup @ 4Hr Calcium 10.7 H 10.5 H Uric Acid Phosphorus Magnesium Total Bilirubin Direct Bilirubin AST ALT Alkaline Phosphatase Ammonia Lactate Dehydrogenase Total Creatine Kinase C-Reactive Protein B-Natriuretic Peptide Total Protein Albumin Lipase Vitamin B12 Vitamin B1 Procalcitonin Urine Color Urine Appearance Urine pH Ur Specific [place] Urine Protein Urine Glucose (UA) Urine Ketones Urine Blood Urine Nitrite Ur Leukocyte Esterase Urine RBC Urine WBC Ur Squamous Epith Cells Amorphous Sediment Urine Bacteria Hyaline Casts U Random Total Protein Ur Random Sodium Urine Creatinine Protein/Creatinin Ratio Bronchial Fluid WBC Bronchial Fluid RBC Bronchial Neutrophils Stool Leukocytes, Qual Random Vancomycin Digoxin Salicylates Urine Opiates Screen Ur Barbiturates Screen Ur Phencyclidine Scrn Ur Amphetamines Screen U Benzodiazepines Scrn Urine Cocaine Screen U Marijuana (THC) Screen Ethyl Alcohol T.pallidum Ab (EIA) C. difficile Toxin A&B C. difficile Antigen C. difficile Interpret Coronavirus (PCR) COVID-19 (LINDEN) COVID-19 Clin Com Hepatitis A IgM Ab Hep Bs Antigen Hep Bs Antibody Hep B Core Total Ab Hepatitis C Ab (EIA) HIV 1&2 Ab/P24 Ag 4thGn Influenza Type A (PCR) Influenza Type B (PCR) RSV RNA Qual (PCR) SARS-CoV-2 IgG Ab Blood Type Antibody Screen 07/17/20 07/17/20 07/17/20 05:19 05:19 10:08 WBC 12.6 H RBC 4.56 L Hgb 13.9 L Hct 43.3 MCV 95.0 MCH 30.5 MCHC 32.1 RDW 14.4 Plt Count 242 MPV 13.4 H Immature Gran % (Auto) 0.3 Neut % (Auto) 58.8 Lymph % (Auto) 27.0 [place] % (Auto) 10.9 Eos % (Auto) 2.4 Baso % (Auto) 0.6 Lymph # (Auto) 3.4 Placer # (Auto) 1.4 H Eos # (Auto) 0.3 Baso # (Auto) 0.1 Abs Immat Gran (auto) 0.04 H Absolute Neuts (auto) 7.4 Absolute Nucleated RBC 0.000 Nucleated RBC % (auto) 0.0 Neutrophils % (Manual) Band Neutrophils % Lymphocytes % (Manual) Monocytes % (Manual) Abs Neuts (Manual) Lymphocytes # (Manual) Monocytes # (Manual) Nucleated RBCs Platelet Estimate Plt Morphology Comment RBC Morphology Polychromasia Microcytosis Macrocytosis Tear Drop Cells [place] Cells Smear Tech's Comments Smear Path Review ESR PT INR APTT PTT (Heparin Protocol) ABG pH ABG pCO2 ABG pO2 ABG HCO3 ABG O2 Saturation ABG Base Excess VBG pH 7.40 VBG pCO2 71 VBG pO2 39 VBG HCO3 45 VBG O2 Saturation 61.0 VBG Base Excess 16.6 Oxygen Given Sodium 135 Potassium 5.1 Chloride 94 L Carbon Dioxide 26 Anion Gap 20 BUN 44 H Creatinine 1.18 Estim Creat Clear Calc 73.9 Estimated GFR > 60 POC Glucose Random Glucose TNP Fasting Glucose 161 H Osmolality Lactic Acid Lactic Acid Fup @ 2Hr Lactic Acid Fup @ 4Hr Calcium 10.5 H Uric Acid Phosphorus Magnesium Total Bilirubin Direct Bilirubin AST ALT Alkaline Phosphatase Ammonia Lactate Dehydrogenase Total Creatine Kinase C-Reactive Protein B-Natriuretic Peptide Total Protein Albumin Lipase Vitamin B12 Vitamin B1 Procalcitonin Urine Color Urine Appearance Urine pH Ur Specific [place] Urine Protein Urine Glucose (UA) Urine Ketones Urine Blood Urine Nitrite Ur Leukocyte Esterase Urine RBC Urine WBC Ur Squamous Epith Cells Amorphous Sediment Urine Bacteria Hyaline Casts U Random Total Protein Ur Random Sodium Urine Creatinine Protein/Creatinin Ratio Bronchial Fluid WBC Bronchial Fluid RBC Bronchial Neutrophils Stool Leukocytes, Qual Random Vancomycin Digoxin Salicylates Urine Opiates Screen Ur Barbiturates Screen Ur Phencyclidine Scrn Ur Amphetamines Screen U Benzodiazepines Scrn Urine Cocaine Screen U Marijuana (THC) Screen Ethyl Alcohol T.pallidum Ab (EIA) C. difficile Toxin A&B C. difficile Antigen C. difficile Interpret Coronavirus (PCR) COVID-19 (LINDEN) COVID-19 Clin Com Hepatitis A IgM Ab Hep Bs Antigen Hep Bs Antibody Hep B Core Total Ab Hepatitis C Ab (EIA) HIV 1&2 Ab/P24 Ag 4thGn Influenza Type A (PCR) Influenza Type B (PCR) RSV RNA Qual (PCR) SARS-CoV-2 IgG Ab Blood Type Antibody Screen Preliminary micro results at discharge 06/16/20 18:53 Fungal Identification - Preliminary Bronch Lll - Bronchial No growth after 3 weeks. Discharge Plan Discharge Patient Disposition: er [facility] Referrals: Ortiz Deluca FNP- [Primary Care Provider] - Discharge Medications: New digoxin 250 mcg (0.25 mg) Tablet 250 mcg G-tube DAILY Qty: 30 RF: 0 lorazepam 0.5 mg Tablet 0.5 mg G-tube Q8H Qty: 90 RF: 0 omeprazole 20 mg Capsule,Delayed Release(Dr/Ec) 40 mg PO DAILY@0630 Qty: 60 RF: 0 furosemide 20 mg Tablet 20 mg G-tube DAILY Qty: 30 RF: 0 metoprolol tartrate 25 mg Tablet 25 mg PO BID Qty: 60 RF: 0 Eliquis 5 mg Tablet 5 mg G-tube BID Qty: 60 RF: 0 Continued albuterol sulfate 90 mcg/actuation HFA aerosol inhaler 2 puff inhalation Q4-6H PRN (Reason: shortness of breath or wheezing) Qty: 18 RF: 0 Discontinued naproxen 500 mg tablet 500 mg PO BID PRN (Reason: pain) Qty: 60 RF: 3 doxycycline monohydrate 100 mg capsule 100 mg PO BID 10 Days Qty: 20 RF: 0 atenolol 50 mg tablet 1 tab PO DAILY RF: 0 duloxetine 60 mg capsule,delayed release(DR/EC) 60 mg PO DAILY RF: 0 lisinopril 5 mg tablet 5 mg PO DAILY RF: 0 fluoxetine 40 mg capsule 40 mg PO DAILY RF: 0 allopurinol 100 mg tablet 100 mg PO DAILY RF: 0 Discharge Orders: Discharge Order (Routine); Ordered 07/17/20 Ordered By: Garth Garcia Diet: other Activity on Discharge: As tolerated Stand Alone Forms: Patient Portal Discharge page Care Plan Goals: recovery Health Concerns: etoh, afib, dysphagia Plan of Treatment: PT WILL CONTINUE WITH TF PROMOTE AT MAX GOAL 75CC/HR WITH 120CC FREE WATER Q 6HRS PROVIDES 1800KCALS (23KCALS/KG BASED ON IBW), 112.5G PROTEIN (1.4G/KG), 1990CC TOTAL WATER FROM FORMULA AND FLUSHES (25CC/KG BASED ON IBW) STRICT PO INTAKE RECORDS WEAN OFF TF WHEN PO INTAKE >/=50%
--- NOTE | 2020-07-17 11:55 | MHC.CM.PN ---
Patient has been medically cleared for dc to SNF today. Per MD, MINDY spoke with HCP/Brother/Ortiz at [phone], addressed second IMM and received Ortiz's approval of the dc plan. Patient will be dc to [facility] today at 2PM, via [facility].
[2020-07-17 12:28] LABS: COVID-19 Test Negative (Negative); IDNOW Serial# 9DD0AD1C
[2020-07-17 12:54] VITALS: BP 142/74; PULSE 68; O2SAT 96
--- NOTE | 2020-07-18 20:07 | PC.NURSE ---
This RN called [facility] to inform staff that patient had a roommate while inpatient at [facility] [place] [place] who tested positive for covid. Spoke with DMITRIY Welch at [facility] who stated that Etseban was in a private room at [facility] and appropriate isolation precautions were in place.
--- NOTE | 2020-07-19 20:12 | P.HPHOSP_ITS ---
History of Present Illness Date of Service: 07/19/20 Chief Complaint: fall, dizziness, SOB this is a 9 [facility] Medical History (Updated 07/17/20 @ 09:45 by Shaheen Turcios MD) Alcohol dependency Anxiety Arthritis Depression Fever of unknown origin Gout HTN (hypertension) Seroma due to trauma Sleep apnea Functional capacity: independent ambulation Family History (Updated 06/10/20 @ 10:00 by Babs Patterson, RMA, CERTIFIED RECREATIONAL THERAPIST) Father Lung cancer Mother No problems noted. Maternal Aunt History of heart attack Sister No problems noted. Brother Cancer of kidney Brother No problems noted. Brother No problems noted. Brother No problems noted. Brother No problems noted. Brother No problems noted. Surgical History No pertinent past surgical history Social History Household Members: Spouse Housing: House Smoking Status: Current every day smoker Tobacco Type: Cigarette Packs Per Day: 1 Cigarettes Per Day: 20.0 Second Hand Smoke Exposure: No service: No Current occupational status: unemployed Meds Allergies Allergy/AdvReac Type Severity Reaction Status Date / Time No Known Allergies Allergy Verified 06/10/20 09:41 [No Known Allergies*] Physical Exam Vital Signs and Narrative: Vital Signs: Last Vital Signs Temp 96.8 F 07/17/20 11:13 Pulse 68 07/17/20 12:54 Resp 20 07/17/20 11:13 BP 142/74 H 07/17/20 12:54 Pulse Ox 96 07/17/20 12:54 Body Mass Index 25.9 Results Labs CBC and Chem 7: 07/17/20 05:19 07/17/20 05:19
== END 2020-07-17 14:38 | disposition skilled nursing facility (03) | DRG 4 ==
LOC: HO.ED 22:53 → HO.IMC 05-30 01:24 → HO.ICU 06-04 21:56 → HO.IMC 07-05 06:34
PROVIDERS: Anesthesiology; Family Medicine; Hospitalist; Internal Medicine; Internal Medicine Cardiovascular Disease; Internal Medicine Hypertension Specialist; Internal Medicine Nephrology; Internal Medicine Pulmonary Disease; Physician Assistant; Registered Nurse Community Health; Surgery; Admitting Provider Internal Medicine; Emergency Provider Student in an Organized Health Care Education/Training Program; PCP Nurse Practitioner Family; Visit Provider Internal Medicine
PROC: 0B113F4 Bypass Trachea to Cutaneous with Tracheostomy Device, Percutaneous Approach (ICD-10-PCS; principal; 2020-06-16 16:00)
PROC: 0B113F4 Bypass Trachea to Cutaneous with Tracheostomy Device, Percutaneous Approach (ICD-10-PCS; 2020-06-16 16:00)
DX: N17.0 Acute kidney failure with tubular necrosis (principal); G92 Toxic encephalopathy; I46.9 Cardiac arrest, cause unspecified; I50.33 Acute on chronic diastolic (congestive) heart failure; J69.0 Pneumonitis due to inhalation of food and vomit; I48.19 Other persistent atrial fibrillation; E51.2 Wernicke's encephalopathy; Z68.42 Body mass index [BMI] 45.0-49.9, adult; E87.4 Mixed disorder of acid-base balance; E66.2 Morbid (severe) obesity with alveolar hypoventilation; F10.231 Alcohol dependence with withdrawal delirium; E87.0 Hyperosmolality and hypernatremia; F32.9 Major depressive disorder, single episode, unspecified; M10.9 Gout, unspecified; Z20.822 Contact with and (suspected) exposure to COVID-19; Z85.118 Personal history of other malignant neoplasm of bronchus and lung; F10.229 Alcohol dependence with intoxication, unspecified; D72.829 Elevated white blood cell count, unspecified; E11.9 Type 2 diabetes mellitus without complications; L30.9 Dermatitis, unspecified; R74.01 Elevation of levels of liver transaminase levels; E83.42 Hypomagnesemia; E87.5 Hyperkalemia; M79.604 Pain in right leg; I11.0 Hypertensive heart disease with heart failure; Z99.89 Dependence on other enabling machines and devices; F17.210 Nicotine dependence, cigarettes, uncomplicated; Z71.6 Tobacco abuse counseling; Z79.01 Long term (current) use of anticoagulants; Z79.899 Other long term (current) drug therapy
CPT/HCPCS: 0241U; 36415; 36600; 70450; 70551; 71045; 71250; 72192; 73501; 74176; 76775; 80048; 80053; 80076; 80162; 80202; 80307; 80320; 81001; 82040; 82140; 82550; 82607; 82803; 82947; 83605; 83615; 83690; 83735; 83880; 83930; 84100; 84145; 84156; 84300; 84425; 84550; 85007; 85025; 85027; 85060; 85610; 85652; 85730; 86140; 86704; 86706; 86709; 86769; 86780; 86803; 86850; 86900; 86901; 87040; 87045; 87046; 87070; 87071; 87077; 87086; 87102; 87186; 87205; 87324; 87340; 87389; 87449; 87635; 89051; 89055; 90999; 92526; 92610; 93005; 93306; 93312; 93970; 93971; 94002; 94003; 94640; 94660; 94799; 95816; 97110; 97112; 97163; 97167; 97530; 97535; 99225; 99232; 99285; C1758; G0480; J0171; J0456; J0637; J0690; J0696; J1160; J1170; J1650; J1940; J2060; J2185; J2250; J2270; J2370; J2543; J2560; J3010; J3370; J3411; J3475; P9047

== ENCOUNTER → 2020-09-18 13:58 | Outpatient (BNVA) | payer MEDICARE, MEDICAID, SELFPAY | PROVIDERS: PCP Nurse Practitioner Family; Visit Provider Surgery | DX: Z48.815 Encounter for surgical aftercare following surgery on the digestive system (principal); Z93.1 Gastrostomy status | CPT/HCPCS: 99212 ==

== ENCOUNTER → 2020-10-27 14:40 | Outpatient (BNVA) | payer MEDICARE, MEDICAID, SELFPAY | PROVIDERS: PCP Nurse Practitioner Family; Referring Provider Nurse Practitioner Family; Visit Provider Internal Medicine Cardiovascular Disease | DX: I48.91 Unspecified atrial fibrillation (principal); I50.33 Acute on chronic diastolic (congestive) heart failure; F17.200 Nicotine dependence, unspecified, uncomplicated; Z79.899 Other long term (current) drug therapy; Z71.6 Tobacco abuse counseling | CPT/HCPCS: 93005; 99212 ==

== ENCOUNTER 2020-10-29 10:48 | Day surgery (SDC) | payer MEDICARE, MEDICAID, SELFPAY ==
--- NOTE | 2020-10-28 12:34 | P.CONAN_ITS ---
Documented by User: Shante Hayes 10/28/20 12:45 HPI - Anesthesia Eval Consult details Narrative: 60yo M for Cardioversion Eliquis for afib 05/2020 [facility] [place]TOH induced encephalopathy. Suffered cardiopulm arrest. Trach/Peg. Trach d/c 06/2020, Peg D/C 08/2020. Per Outpt provider notes, no ETOH since 05/2020 admit. [facility] Active Problems Active Problems: All Active Problems (Updated 09/02/20 @ 17:30 by Ortiz Deluca, [facility]) Afib (Acute) On valproate therapy (Acute) Diabetes (Acute) S/P percutaneous endoscopic gastrostomy (PEG) tube placement (Acute) Trachea displaced (Acute) Alcohol use disorder, severe, dependence (Acute) Afib (Acute) Fever of unknown origin (Acute) Acute and chronic respiratory failure with hypoxia (Acute) Dermatitis, unspecified (Acute) Diastolic CHF, acute on chronic (Acute) Pleural effusion (Acute) Rib fractures (Acute) Community acquired pneumonia, bilateral (Acute) Cardiac arrest with successful resuscitation (Acute) Acute kidney failure (Acute) Obesity hypoventilation syndrome (Acute) CHF (congestive heart failure) (Acute) Encephalopathy (Acute) Restrictive lung disease secondary to obesity (Acute) Persistent atrial fibrillation (Acute) Left atrial enlargement (Acute) HTN (hypertension) (Acute) Sleep apnea (Acute) Alcohol dependency (Acute) Alcohol withdrawal syndrome (Acute) Seroma due to trauma (Acute) Abscess (Acute) Difficulty breathing (Acute) Past Medical History Medical History Afib Alcohol dependency Anxiety Arthritis CHF (congestive heart failure) Depression Diabetes Fever of unknown origin Gout HTN (hypertension) Left atrial enlargement Seroma due to trauma Sleep apnea Family History Family History Father Lung cancer Mother No problems noted. Maternal Aunt History of heart attack Sister No problems noted. Brother Cancer of kidney Brother No problems noted. Brother No problems noted. Brother No problems noted. Brother No problems noted. Brother No problems noted. Surgical History Surgical History No pertinent past surgical history Social History Social History (Updated 10/29/20 @ 12:48 by Winsome Trujillo Household Members: Spouse Housing: House Alcohol intake: current Smoking Status: Current every day smoker Tobacco Type: Cigarette Packs Per Day: 1 Cigarettes Per Day: 20.0 Smoked in Last 30 Days: Yes Second Hand Smoke Exposure: No Use of substances other than those prescribed or required for medical reasons: No Advance Directives: No Advance Directives Information Provided: Yes Recently lost weight without trying: No Nutrition Risks: No Nutritional Risk service: No Current occupational status: unemployed Meds Allergies Allergy/AdvReac Type Severity Reaction Status Date / Time No Known Allergies Allergy Verified 09/18/20 14:07 [No Known Allergies*] Home Medications Medication Instructions Recorded Confirmed Last Taken Type allopurinol 100 mg tablet 100 mg PO DAILY 09/02/20 10/27/20 Unknown History naproxen 500 mg tablet 500 mg PO BID 09/02/20 10/27/20 Unknown History fluoxetine 20 mg capsule 20 mg PO DAILY 09/30/20 10/27/20 Unknown History Exam Exam Date and Time: October 28, 2020 1234 Narrative Narrative: TERRI 05/2020 Conclusion: ??? Informed consent was obtained by the instrument technician apprentice by talking to patient's brother. Patient's mental status prevents him consenting. After sedation was administered by the instrument technician apprentice, a bite block was placed. The transesophageal echocardiographic probe was placed without any difficulty. Due to patient's PEG tube, we did not go into the stomach. Usual 2D, color Doppler as well as spectral Doppler images were obtained. 3D images were also obtained. The probe was withdrawn without any difficulty. No complications noted. ??? The left ventricular systolic function is normal. The visually estimated ejection fraction is between 60-65%. ??? There is mild to moderate aortic valve regurgitation. ??? Overall, [id number] mitral regurgitation. ??? No evidence of valvular vegetations. EKG 05/2020 Vent. Rate : 095 BPM Atrial Rate : 159 BPM P-R Int : 000 ms QRS Dur : 084 ms QT Int : 282 ms P-R-T Axes : 000 034 237 degrees QTc Int : [address] & T wave abnormality, consider inferolateral ischemia Abnormal ECG When compared with ECG of 18-JUN-2020 06:44, No significant change was found Assessment and Plan Assessment Anesthesia Assessment: Chart Reviewed Documented by User: Winsome Hawkins 10/29/20 12:51 PMFSH Past Medical History Medical History Afib Alcohol dependency Anxiety Arthritis CHF (congestive heart failure) Depression Diabetes Fever of unknown origin Gout HTN (hypertension) Left atrial enlargement Seroma due to trauma Sleep apnea Family History Family History Father Lung cancer Mother No problems noted. Maternal Aunt History of heart attack Sister No problems noted. Brother Cancer of kidney Brother No problems noted. Brother No problems noted. Brother No problems noted. Brother No problems noted. Brother No problems noted. Family history of problems with anesthesia: No Surgical History Surgical History No pertinent past surgical history History of Problems with Anesthesia: No Social History Social History (Updated 10/29/20 @ 12:48 by Winsome Hawkins) Household Members: Spouse Housing: House Alcohol intake: current Smoking Status: Current every day smoker Tobacco Type: Cigarette Packs Per Day: 1 Cigarettes Per Day: 20.0 Smoked in Last 30 Days: Yes Second Hand Smoke Exposure: No Use of substances other than those prescribed or required for medical reasons: No Advance Directives: No Advance Directives Information Provided: Yes Recently lost weight without trying: No Nutrition Risks: No Nutritional Risk service: No Current occupational status: unemployed Meds Allergies Allergy/AdvReac Type Severity Reaction Status Date / Time No Known Allergies Allergy Verified 09/18/20 14:07 [No Known Allergies*] Home Medications Medication Instructions Recorded Confirmed Last Taken Type allopurinol 100 mg tablet 100 mg PO DAILY 09/02/20 10/27/20 Unknown History naproxen 500 mg tablet 500 mg PO BID 09/02/20 10/27/20 Unknown History fluoxetine 20 mg capsule 20 mg PO DAILY 09/30/20 10/27/20 Unknown History Exam Height,Weight and Vital Signs: Vital Signs Temp Pulse Resp BP Pulse Ox 98.1 F 82 19 142/72 H 95 10/29/20 11:17 10/29/20 11:17 10/29/20 11:17 10/29/20 11:17 10/29/20 11:17 Pertinent Lab Results Pertinent Lab Results: Lab Results 10/28/20 10/28/20 10/28/20 Range/Units 15:02 15:02 15:02 WBC 9.8 (4.8-10.8) X10*3/uL RBC 4.06 L (4.60-5.80) X10*6/uL Hgb 12.5 L (14.0-18.0) g/dl Hct 37.9 L (42-52) % MCV 93.3 (80-98) fL MCH 30.8 (27.0-33.0) pg MCHC 33.0 (31.0-36.0) g/dl RDW 14.2 (11.0-16.0) % Plt Count 174 D (160-400) X10*3/uL MPV 12.1 (9.4-12.4) fL Immature Gran % (Auto) 0.5 H (0.0-0.4) % Neut % (Auto) 59.3 (45-73) % Lymph % (Auto) 24.7 (20-40) % Monroe % (Auto) 9.4 (2-11) % Eos % (Auto) 5.3 H (0-4) % Baso % (Auto) 0.8 (0-2) % Lymph # (Auto) 2.4 (1.2-4.9) X10*3/uL Monroe # (Auto) 0.9 (0.1-1.2) X10*3/uL Eos # (Auto) 0.5 H (0.0-0.4) X10*3/uL Baso # (Auto) 0.1 (0.0-0.2) X10*3/uL Abs Immat Gran (auto) 0.05 H (0.00-0.03) X10*3/uL Absolute Neuts (auto) 5.8 (2.0-8.3) X10*3/uL Absolute Nucleated RBC 0.000 (0.0-0.012) X10*3/uL Nucleated RBC % (auto) 0.0 (0.0-0.2) /100WBC Sodium 138 (135-145) mmol/L Potassium 4.7 (3.3-5.1) mmol/L Chloride 102 (96-108) mmol/L Carbon Dioxide 29 (22-29) mmol/L Anion Gap 12 (12-20) BUN 20 H D (9-16) mg/dL Creatinine 1.15 (0.5-1.4) mg/dL Estim Creat Clear Calc TNP Estimated GFR > 60 POC Glucose (60-115) mg/dL Random Glucose TNP Fasting Glucose 140 H (60-99) mg/dL Calcium 9.5 D (8.4-10.2) mg/dL Total Bilirubin 0.5 (0.0-1.0) mg/dL AST 10 D (5-37) U/L ALT < 6 (0-40) U/L Alkaline Phosphatase 79 D (39-117) U/L Total Protein 7.3 (6.5-8.0) g/dL Albumin 4.1 D (3.5-5.0) g/dL Triglycerides 81 mg/dL Cholesterol 138 mg/dL LDL Cholesterol, Calc 92 mg/dl HDL Cholesterol 30 mg/dL TSH 2.06 (0.32-4.0) uIU/mL Digoxin < 0.3 L (0.8-2.0) ng/mL Valproic Acid 19.3 L (50.0-100.0) mcg/mL 05// Range/Units 11:19 WBC (4.8-10.8) X10*3/uL RBC (4.60-5.80) X10*6/uL Hgb (14.0-18.0) g/dl Hct (42-52) % MCV (80-98) fL MCH (27.0-33.0) pg MCHC (31.0-36.0) g/dl RDW (11.0-16.0) % Plt Count (160-400) X10*3/uL MPV (9.4-12.4) fL Immature Gran % (Auto) (0.0-0.4) % Neut % (Auto) (45-73) % Lymph % (Auto) (20-40) % Monroe % (Auto) (2-11) % Eos % (Auto) (0-4) % Baso % (Auto) (0-2) % Lymph # (Auto) (1.2-4.9) X10*3/uL Monroe # (Auto) (0.1-1.2) X10*3/uL Eos # (Auto) (0.0-0.4) X10*3/uL Baso # (Auto) (0.0-0.2) X10*3/uL Abs Immat Gran (auto) (0.00-0.03) X10*3/uL Absolute Neuts (auto) (2.0-8.3) X10*3/uL Absolute Nucleated RBC (0.0-0.012) X10*3/uL Nucleated RBC % (auto) (0.0-0.2) /100WBC Sodium (135-145) mmol/L Potassium (3.3-5.1) mmol/L Chloride (96-108) mmol/L Carbon Dioxide (22-29) mmol/L Anion Gap (12-20) BUN (9-16) mg/dL Creatinine (0.5-1.4) mg/dL Estim Creat Clear Calc Estimated GFR POC Glucose 129 H (60-115) mg/dL Random Glucose Fasting Glucose (60-99) mg/dL Calcium (8.4-10.2) mg/dL Total Bilirubin (0.0-1.0) mg/dL AST (5-37) U/L ALT (0-40) U/L Alkaline Phosphatase (39-117) U/L Total Protein (6.5-8.0) g/dL Albumin (3.5-5.0) g/dL Triglycerides mg/dL Cholesterol mg/dL LDL Cholesterol, Calc mg/dl HDL Cholesterol mg/dL TSH (0.32-4.0) uIU/mL Digoxin (0.8-2.0) ng/mL Valproic Acid (50.0-100.0) mcg/mL Airway Mallampati Class: III TM Dist: >3cm Neck ROM: Full (Fat neck) Loose/Missing/Broken Teeth: Yes (Poor dentition. Rotted broken top front. Will use bite block) Heart: Irregular Lungs: CTAB Assessment and Plan Assessment Anesthesia Assessment: Anesthesia Plan Discussed and Chart Reviewed Final Anesthetic Review NPO: Yes ASA Class: IV Final Preanesthetic Review: No Changes in Pt Med Stat, Meds/Allgs Chart Reviewed, Consent Obtained/Reviewed and Anes Risks/Benef Reviewed Patient Risk: High Procedure Risk: Intermediate Assessment/Block/Sedation in SS: Assess/Block/Sedation-SS Anesthetic Plan Anesthetic Plan: GA Disposition: Standard PACU
[2020-10-28 16:24] LABS: MANUAL DIFF FLAG NO
[2020-10-28 16:41] LABS: Basophils Absolute Auto 0.1 X10*3/uL (0.0-0.2); Basophils Percent Auto 0.8 % (0-2); Eosinophils Absolute Auto 0.5 X10*3/uL (0.0-0.4); Eosinophils Percent Auto 5.3 % (0-4); Hematocrit 37.9 % (42-52); Hemoglobin 12.5 g/dl (14.0-18.0); Imm Gran Abs Auto 0.05 X10*3/uL (0.00-0.03); Imm Gran Pct Auto 0.5 % (0.0-0.4); Lymphocytes Absolute Auto 2.4 X10*3/uL (1.2-4.9); Lymphocytes Percent Auto 24.7 % (20-40); Mean Corpuscular Hemoglobin 30.8 pg (27.0-33.0); Mean Corpuscular Volume 93.3 fL (80-98); Mean Platelet Volume 12.1 fL (9.4-12.4); Monocytes Absolute Auto 0.9 X10*3/uL (0.1-1.2); Monocytes Percent Auto 9.4 % (2-11); Neutrophils Absolute Auto 5.8 X10*3/uL (2.0-8.3); Neutrophils Percent Auto 59.3 % (45-73); Platelet Count 174 X10*3/uL (160-400); Red Blood Count 4.06 X10*6/uL (4.60-5.80); Red Cell Distribution Width 14.2 % (11.0-16.0); White Blood Count 9.8 X10*3/uL (4.8-10.8)
[2020-10-28 17:09] LABS: Valproate 19.3 mcg/mL (50.0-100.0)
[2020-10-28 17:10] LABS: Digoxin < 0.3 ng/mL (0.8-2.0)
[2020-10-28 17:12] LABS: Alanine Aminotransferase < 6 U/L (0-40); Albumin Level 4.1 g/dL (3.5-5.0); Alkaline Phosphatase 79 U/L (39-117); Anion Gap 12 (12-20); Aspartate Amino Transferase 10 U/L (5-37); Bilirubin Total 0.5 mg/dL (0.0-1.0); Blood Urea Nitrogen 20 mg/dL (9-16); Calcium 9.5 mg/dL (8.4-10.2); Carbon Dioxide 29 mmol/L (22-29); Chloride 102 mmol/L (96-108); Cholesterol 138 mg/dL; Estimated Glomerular Filt Rate > 60; Glucose Fasting 140 mg/dL (60-99); HDL Cholesterol 30 mg/dL; LDL Cholesterol Calculated 92 mg/dl; Potassium 4.7 mmol/L (3.3-5.1); Sodium 138 mmol/L (135-145); Total Protein 7.3 g/dL (6.5-8.0); Triglycerides 81 mg/dL
[2020-10-28 17:31] LABS: TSH reflex Free T4 2.06 uIU/mL (0.32-4.0)
--- NOTE | 2020-10-29 11:08 | MHC.SHP ---
Pre-Procedural Eval Section A The patient is an INPATIENT: No Changes since office visit: Yes Patient answered all questions; No Cold of Flu in the past 2 weeks, No New Medical Problems and No Changes in Medication The History & Physical has been completed within 30 days and I have reviewed it.: Yes Section B Chief Complaint: a-fib Allergies: Allergies Allergy/AdvReac Type Severity Reaction Status Date / Time No Known Allergies Allergy Verified 09/18/20 14:07 [No Known Allergies*] Plan I have reviewed the history and physical and performed a pertinent physical examination on my patient. No changes have occurred unless specified.
[2020-10-29 11:17] VITALS: BP 142/72; PULSE 82; RESP 19; TEMP 36.7; O2SAT 95; BMI 38.5
[2020-10-29 11:22] LABS: Glucose, Whole Blood 129 mg/dL (60-115)
[2020-10-29] MEDS: Lactated Ringers 1,000 ML 20 ML IVCONT (11:33)
[2020-10-29] MEDS: Apixaban 5 MG TABLET PO (11:33)
--- NOTE | 2020-10-29 12:36 | ECG_ITS ---
Test Reason : S/P CARDIOVERSION Blood Pressure : / mmHG Vent. Rate : 069 BPM Atrial Rate : 069 BPM P-R Int : 196 ms QRS Dur : 084 ms QT Int : 396 ms P-R-T Axes : 081 055 059 degrees QTc Int : 424 ms Normal sinus rhythm Low voltage QRS Borderline ECG When compared with ECG of 20-JUN-2020 15:45, Sinus rhythm has replaced Atrial fibrillation ST no longer depressed in Inferior leads ST no longer depressed in Lateral leads T wave inversion no longer evident in Inferior leads T wave inversion no longer evident in Anterolateral leads Referred By: Liborio Smith Electronically Signed By:SACHI ELENA
--- NOTE | 2020-10-29 12:37 | HO.CARDIVERS ---
Cardioversion Procedure Note Cardioversion Date of Procedure: 10/29/2020 Ordering Provider: Myself Performing Provider: Myself Indication for Procedure: Persistent atrial fibrillation Pre-Op Diagnosis: Atrial fibrillation Post-Op Diagnosis: Sinus rhythm Performed with Transesophageal Echo: No History: See my consult note from 2 days ago Consent: Verbal and Written consent was obtained from the patient before starting and patient was given a dose of Eliquis. The patient was made aware of the risk of the procedures including benefits, alternatives 2nd opinion. Procedure: After consent obtained, cardioversion pads were attached in anteroposterior configuration and the patient was sedated by the anesthesia team. Once adequate sedation achieved, patient was delivered 200 joules of biphasic synchronized energy in anteroposterior configuration. Complications: None Impression: Successful conversion to sinus rhythm Recommendations: 1. 12 lead EKG next 2. Continue medications including oral anticoagulant therapy 3. Abstinence from alcohol was advised
[2020-10-29 12:40] VITALS: BP 119/72; PULSE 74; RESP 17; TEMP 36.7; O2SAT 98
[2020-10-29 12:45] VITALS: BP 128/65; PULSE 74; RESP 20; O2SAT 98
[2020-10-29 12:50] VITALS: BP 128/66; PULSE 67; RESP 16; O2SAT 98
[2020-10-29 12:55] VITALS: BP 129/66; PULSE 71; RESP 16; O2SAT 95
[2020-10-29 13:10] VITALS: BP 137/67; PULSE 68; RESP 16; O2SAT 96
== END 2020-10-29 14:45 ==
LOC: HO.SSS 10:49
PROVIDERS: PCP Nurse Practitioner Family; Visit Provider Internal Medicine Cardiovascular Disease
PROC: 5A2204Z Restoration of Cardiac Rhythm, Single (ICD-10-PCS; principal; 2020-10-29 12:30)
DX: I48.19 Other persistent atrial fibrillation (principal); Z79.01 Long term (current) use of anticoagulants; I11.0 Hypertensive heart disease with heart failure; I50.33 Acute on chronic diastolic (congestive) heart failure; Z86.74 Personal history of sudden cardiac arrest; N17.9 Acute kidney failure, unspecified; E11.9 Type 2 diabetes mellitus without complications; G47.33 Obstructive sleep apnea (adult) (pediatric); G93.40 Encephalopathy, unspecified; J98.4 Other disorders of lung; Z79.84 Long term (current) use of oral hypoglycemic drugs; Z99.89 Dependence on other enabling machines and devices; Z79.899 Other long term (current) drug therapy; F17.210 Nicotine dependence, cigarettes, uncomplicated; F10.20 Alcohol dependence, uncomplicated
CPT/HCPCS: 36415; 80048; 80053; 80061; 80162; 80164; 82947; 84443; 85025; 92960; 93005

== ENCOUNTER → 2020-11-12 14:47 | Outpatient (REF) | payer MEDICARE, MEDICAID, SELFPAY ==
--- NOTE | 2020-11-13 08:10 | ECG_ITS ---
Hook-up date: 2020-11-12 15:14:00 Duration: 24:54:00 Test Indications: AFIB Medications: [id number] QRS complexes 49 Ventricular ectopics which represent <1 % of total QRS comp. * Supraventricular ectopics which represent % of total QRS comp. * Paced QRS complexs which represent % of total QRS comp. VENTRICULAR ECTOPY 40 Isolated 0 Bigeminal Cycles 2 Couplets 1 Runs 5 Beats in Runs 5 Beats LONGEST at 181 BPM at 00:52:11 2020-11-13 5 Beats FASTEST at 181 BPM at 00:52:11 2020-11-13 SUPRAVENTRICULAR ECTOPY * Isolated * Couplets * Runs * Beats in Runs * Beats LONGEST at * BPM at :: -- * Beats FASTEST at * BPM at :: -- HEART RATES 53 MIN at 11:21:44 2020-11-13 82 AVG 140 MAX at 09:12:18 2020-11-13 LONGEST RR 1.9680 secs at 05:04:43 2020-11-13 S-T LEVELS Channel 1 - 128 mm at 15:14:00 2020-11-12 - 128 mm at 15:14:00 2020-11-12 Channel 2 - 128 mm at 15:14:00 2020-11-12 - 128 mm at 15:14:00 2020-11-12 Channel 3 - 128 mm at 03:43:31 -- - 128 mm at 03:43:31 Basic rhythm Atrial fibrillation No long pause or profound bradycardia Good rate control with AF One 5 beat run of NSVT at 181 bpm Patient did not report any symptoms in the diary Referred By: Liborio Smith Overread By: LIBORIO SMITH MD
== END ==
LOC: HO.CARD 14:47
PROVIDERS: PCP Nurse Practitioner Family; Visit Provider Internal Medicine Cardiovascular Disease
DX: I48.91 Unspecified atrial fibrillation (principal)
CPT/HCPCS: 93226

== ENCOUNTER → 2020-12-30 10:28 | Outpatient (BNVA) | payer MEDICARE, MEDICAID, SELFPAY | PROVIDERS: PCP Nurse Practitioner Family; Referring Provider Nurse Practitioner Family; Visit Provider Psychiatry & Neurology Neurology | DX: E66.2 Morbid (severe) obesity with alveolar hypoventilation (principal); G47.33 Obstructive sleep apnea (adult) (pediatric) | CPT/HCPCS: 99202 ==

== ENCOUNTER → 2021-03-03 12:39 | Outpatient (BNVA) | payer MEDICARE, MEDICAID, SELFPAY | PROVIDERS: PCP Nurse Practitioner Family; Referring Provider Nurse Practitioner Family; Visit Provider Internal Medicine Cardiovascular Disease | DX: I50.9 Heart failure, unspecified (principal); I48.91 Unspecified atrial fibrillation | CPT/HCPCS: 93005; 99212 ==

== ENCOUNTER → 2021-03-17 10:38 | Outpatient (BNVA) | payer MEDICARE, SELFPAY | PROVIDERS: PCP Nurse Practitioner Family; Visit Provider Psychiatry & Neurology Neurology | CPT/HCPCS: Q3014 ==

== ENCOUNTER → 2021-06-05 12:52 | Outpatient (BNVA) | payer MEDICARE, SELFPAY | PROVIDERS: PCP Nurse Practitioner Family; Referring Provider Nurse Practitioner Family; Visit Provider Nurse Practitioner Family | DX: I50.33 Acute on chronic diastolic (congestive) heart failure (principal); G47.30 Sleep apnea, unspecified; F10.20 Alcohol dependence, uncomplicated; E66.2 Morbid (severe) obesity with alveolar hypoventilation; F17.210 Nicotine dependence, cigarettes, uncomplicated; Z68.41 Body mass index [BMI] 40.0-44.9, adult | CPT/HCPCS: 99212 ==

== ENCOUNTER 2021-07-13 14:10 | Outpatient (REF) | payer MEDICARE, SELFPAY ==
--- NOTE | ~2021-07-13 | XR_ITS ---
EXAMINATION: XR LUMBOSACRAL SPINE CLINICAL INFORMATION: Low back pain. COMPARISON: None TECHNIQUE: Three views of the lumbosacral spine. FINDINGS: The vertebral heights and alignment is normal. There is loss of L2-L3 disc height. Rest the disc heights are normal. No visible acute fracture, dislocation or lytic process seen. There is mild ventral spondylosis at L1-L2 disc level. The paravertebral soft tissues are normal. The SI joints are normal. XR/XR lumbar spine 2-3V IMPRESSION: Mild degenerative disc changes at L1-L2 disc level with mild ventral spondylosis. No visible acute fracture, dislocation or lytic process seen.
== END 2021-07-13 14:11 | disposition home or self-care (01) ==
LOC: HO.HMGCX 14:10
PROVIDERS: PCP Nurse Practitioner Family; Visit Provider Nurse Practitioner Family
DX: M54.50 Low back pain, unspecified (principal)
CPT/HCPCS: 72100

== ENCOUNTER 2021-08-06 19:03 | Inpatient (IN) | payer MEDICARE, SELFPAY ==
--- NOTE | ~2021-08-06 | CT_ITS ---
EXAMINATION: CT CHEST, ABDOMEN AND PELVIS WITHOUT CONTRAST CLINICAL INFORMATION: Reason for Exam trauma on [facility] COMPARISON: CT abdomen pelvis 06/25/[address] pelvis 07/09/2020 TECHNIQUE: Multidetector volumetric imaging was performed from the thoracic inlet through the pubic symphysis without IV contrast. Sagittal and coronal reformatted images were obtained on the technologist's workstation. This CT examination was performed using dose optimization techniques as appropriate, variously including the following: *Automated exposure control *Adjustment of mA and/or kV according to patient size (this includes techniques or standardized protocols for targeted exams where dose is matched to indication/reason for exam; i.e. extremities or head) *Use of iterative reconstruction technique DLP: 2679 mGy-cm FINDINGS: CHEST: Lungs and Pleura: A small left pleural effusion has increased in size since the prior study there is a new small left pleural effusion present. No pneumothorax. No gross consolidation. Bibasilar atelectasis is seen. No pulmonary contusions. Mediastinum: Heart size is normal. Coronary artery calcifications are seen. The thoracic aorta appears unremarkable although there is marked motion artifact present. No mediastinal hematomas are seen. No pericardial effusion. Chest Wall/Axilla: Multiple old right anterior rib fractures are seen. No new acute rib fractures are identified. ABDOMEN/PELVIS: Peritoneal Space: Water density ascites is present. No evidence of hemoperitoneum. 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 Similar findings were seen at the time of the 06/25/2020 CT abdomen. Liver, Gallbladder, Biliary Tree: The liver is again noted to be cirrhotic with a nodular border and hypertrophy of the left lobe and caudate. No focal mass or bile dilatation is seen. The gallbladder is unremarkable with no evidence of radiopaque gallstones, gallbladder wall thickening, or obvious pericholecystic inflammatory changes. Pancreas: Unremarkable Spleen: Unremarkable. A splenule is present in the splenic hilum Adrenal Glands: Unremarkable Kidneys and Ureters: The kidneys are normal in size, shape, and attenuation. No hydronephrosis, hydroureter, or calculi seen. No perinephric stranding. Bladder: Unremarkable Gastrointestinal Tract: The small and large bowel are unremarkable. The appendix is not identified with certainty but there is no evidence of appendicitis.. Abdominal Wall: No significant hernia is appreciated. Lymph Nodes: Shotty retroperitoneal lymph nodes are seen but no adenopathy. Please see discussion above regarding mesenteric lymph nodes and myra hepatis lymph nodes. Vascular: Calcific atherosclerotic changes present in the aorta and iliofemoral vessels without aneurysm.. The IVC appears unremarkable. PELVIC VISCERA: The prostate and seminal vesicles appear normal. OSSEUS STRUCTURES: Mild degenerative changes are noted in the spine most marked at L1-L2. No fractures.. No bony destructive lesions are seen. CT/CT abdomen pelvis wo con IMPRESSION: 1. No evidence of an acute traumatic injury in the chest abdomen or pelvis. 2. No significant hematomas are seen in the chest abdomen or pelvis secondary to the patient's anticoagulation. 3. Incidental note made of slight increase in size of small left effusion and new small right effusion, old right-sided rib fractures, mesenteric panniculitis unchanged, cirrhotic liver with ascites and other findings described above.
--- NOTE | ~2021-08-06 | XR_ITS ---
EXAMINATION: XR KNEE, RIGHT CLINICAL INFORMATION: Unable to move or straighten leg COMPARISON: Previous right knee x-ray April 2019 TECHNIQUE: 2 of the right knee. FINDINGS: The knee is flexed. There is a healing fracture of the proximal shaft of the fibula. This is new in the interval from April 2019 but does not appear acute. No other fracture is seen. The femoral tibial joints appear normal. There are small osteophytes at the patellofemoral joint. There is a moderate to large joint effusion. XR/XR knee RT 2V IMPRESSION: Healing fracture of the proximal shaft of the fibula that does not appear acute but is new in the interval from 2019 exam. Joint effusion.
--- NOTE | ~2021-08-06 | CT_ITS ---
EXAMINATION: CT HEAD WITHOUT CONTRAST CT CERVICAL SPINE WITHOUT CONTRAST CLINICAL INFORMATION: Trauma. On Eliquis COMPARISON: MRI of the brain 06/10/2020 CT head 06/05/2020 TECHNIQUE: Imaging was performed from the skull base to vertex without intravenous administration of contrast. In addition, helical noncontrast CT imaging was acquired through the cervical spine and source images were reviewed along with axial reconstructions and sagittal and coronal MPRs. [This CT examination was performed using dose optimization techniques as appropriate, variously including the following: *Automated exposure control *Adjustment of mA and/or kV according to patient size (this includes techniques or standardized protocols for targeted exams where dose is matched to indication/reason for exam; i.e. extremities or head) *Use of iterative reconstruction technique] DLP: 2020 mGy-cm FINDINGS: HEAD: No intracranial mass, hemorrhage, or midline shift is visualized. There is generalized global volume loss. There is moderate prominence of the ventricles and the sulci .There are vascular calcifications of the internal carotid arteries bilaterally. No extra-axial collections are identified. Retention cyst inferior left maxillary sinus. Mastoid air cells and middle ear cavities normally aerated. CERVICAL SPINE: There is no evidence of acute cervical spine fracture. Vertebral bodies remain normal in height. Cervical vertebrae have normal alignment. There is multilevel degenerative spondylosis of the cervical spine with disc height narrowing and endplate spurs and facet joint arthrosis No pre- or paravertebral soft tissue abnormality is identified. Limited assessment of the lung apices is unremarkable. CT/CT cervical spine wo con IMPRESSION: 1. No acute intracranial pathology. 2. No CT evidence of acute cervical spine fracture or traumatic subluxation
--- NOTE | ~2021-08-06 | CT_ITS ---
EXAMINATION: CT CHEST WITHOUT CONTRAST CLINICAL INFORMATION: Persistent hypoxia. COMPARISON: Portions of a previous study 08/06/21 TECHNIQUE: Multidetector volumetric CT imaging of the chest was done. Axial MIP volume rendering provided. Sagittal and coronal reformatted images were obtained. This CT examination was performed using dose optimization techniques as appropriate, variously including the following: *Automated exposure control *Adjustment of mA and/or kV according to patient size (this includes techniques or standardized protocols for targeted exams where dose is matched to indication/reason for exam; i.e. extremities or head) *Use of iterative reconstruction technique DLP: 637 mGy-cm FINDINGS: OIL DISPATCHER: Devices overlie the patient. Prominent cardiac silhouette. Blunting of the left lateral costophrenic sulcus. LUNGS: No abnormality the central airways. Extensive paraseptal emphysema. There is volume loss in both lower lobes. There is no edema. MEDIASTINUM: There is no evidence of mediastinal hematoma. There is prominent fat within the mediastinum. There are no enlarged mediastinal or hilar lymph nodes. There is no suspicious abnormality of the esophagus. PLEURA: There is a minimal amount of left pleural fluid. Trace pleural reaction in the right lower chest dependently. There is no pneumothorax. AXILLA: No lymphadenopathy. UPPER ABDOMEN: I suspect fatty change in the liver. OSSEOUS STRUCTURES: Bilateral rib deformities consistent with subacute and chronic fractures. No definite acute displaced fracture. The sternum appears intact. No volume loss in the thoracic spine. CT/CT chest wo con IMPRESSION: Bibasilar atelectasis with a minimal amount of left pleural fluid. No edema. Subacute/chronic rib fractures. Fleischner guidelines were followed.
[2021-08-06 19:09] VITALS: BP 128/77; PULSE 106; PULSE 97; RESP 18; O2SAT 85; BMI 43.6
--- NOTE | 2021-08-06 19:15 | ECG_ITS ---
Test Reason : TRAUMA Blood Pressure : / mmHG Vent. Rate : 094 BPM Atrial Rate : 000 BPM P-R Int : 000 ms QRS Dur : 084 ms QT Int : 338 ms P-R-T Axes : 000 079 060 degrees QTc Int : 422 ms Atrial fibrillation Low voltage QRS Abnormal ECG When compared with ECG of 29-OCT-2020 12:50, Atrial fibrillation has replaced Sinus rhythm Referred By: Jessica Starks Electronically Signed By:Ean Soares
--- NOTE | 2021-08-06 19:20 | PHA.MEDREC ---
Pharmacy Consult ? Medication Reconciliation Pharmacy has completed the medication reconciliation.
[2021-08-06 19:36] LABS: ABG Base Excess 9.3 mmol/L; ABG HCO3 38 mmol/L (22-26); ABG pCO2 72 mmHg (32-45); ABG pH 7.33 (7.35-7.45); ABG pO2 105 mmHg (83-108)
[2021-08-06 19:42] VITALS: O2SAT 93
[2021-08-06 19:55] VITALS: PULSE 104; RESP 13; O2SAT 95
--- NOTE | 2021-08-06 20:16 | ED_ITS ---
HPI - General Adult General Chief complaint: Dyspnea <Jessica Starks MD - Last Filed: 08/06/21 21:33> Stated complaint: sob <Jessica Starks MD - Last Filed: 08/06/21 21:33> Time Seen by Provider: 08/06/21 19:13 <Jessica Starks MD - Last Filed: 08/06/21 21:33> History of Present Illness HPI narrative: Patient is a 61-year-old male with a history of atrial fibrillation currently on Eliquis. History of diabetes history of alcohol abuse. Patient found in bed not moving well. Question fall. Patient from home. Baseline has obesity. Baseline has obstructive sleep apnea. Patient previously was in severe alcohol withdrawal and had a cardiac arrest back in 2019. Patient denies any fever chills. Question compliance to medication. No nausea no vomiting. No focal pain. Admits to using alcohol today. Patient claims he has 2 nips. No fever no chills no nausea no vomiting positive generalized malaise. Patient unable to give detailed answers. Patient was reported to be hypoxic by paramedics. Was started on non-rebreather. Baseline not on oxygen. Patient was also on CPAP for a period of time. <Jessica Starks MD - Last Filed: 08/06/21 21:33> Related Data Home medications: Home Medications Medication Instructions Recorded Confirmed metformin 850 mg tablet 850 mg PO DAILY 03/03/21 08/06/21 Previous Rx's Medication Instructions Recorded blood-glucose meter (FreeStyle #1 ea 09/03/20 Lite Meter) albuterol sulfate 90 mcg/actuation 2 puff INHALATION Q4-6H PRN #8.5 g 01/18/21 aerosol inhaler lancets 28 gauge (FreeStyle #100 ea 02/02/21 Lancets) apixaban 5 mg tablet (Eliquis) 5 mg PO BID #60 tab 04/29/21 divalproex 250 mg tablet,delayed 250 mg PO BID #60 tab 04/29/21 release metoprolol tartrate 25 mg tablet 25 mg PO BID #60 cap 04/29/21 omeprazole 20 mg capsule,delayed 40 mg PO DAILY@0630 #60 cap 05/06/21 release risperidone 0.5 mg tablet 0.5 mg PO BID #60 tab 05/06/21 amlodipine 5 mg tablet 5 mg PO DAILY #30 tab 05/10/21 fluoxetine 40 mg capsule 40 mg PO DAILY #30 cap 06/08/21 furosemide 20 mg tablet 30 mg PO DAILY 30 Days #45 tab 07/02/21 lorazepam 0.5 mg tablet 0.5 mg PO BID PRN 30 Days #60 tab 07/02/21 allopurinol 100 mg tablet 100 mg PO DAILY 90 Days #90 tab 07/09/21 naproxen 500 mg tablet 500 mg PO BID PRN #60 tab 07/19/21 <Jessica Starks MD - Last Filed: 08/06/21 21:33> Allergies/adverse reactions: Allergies Allergy/AdvReac Type Severity Reaction Status Date / Time No Known Allergies Allergy Verified 07/13/21 16:54 [No Known Allergies*] <Jessica Starks MD - Last Filed: 08/06/21 21:33> Review of Systems Review of Systems: Positive generalized malaise <Jessica Starks MD - Last Filed: 08/06/21 21:33> Yes Unobtainable due to mental condition <Jessica tSarks MD - Last Filed: 08/06/21 21:33> PMFSH Past Medical History Medical History: Medical History Afib Alcohol dependency Anxiety Arthritis CHF (congestive heart failure) Depression Diabetes Fever of unknown origin Gout HTN (hypertension) Left atrial enlargement Seroma due to trauma Sleep apnea Wernicke encephalopathy <Jessica Starks MD - Last Filed: 08/06/21 21:33> Surgical History: Surgical History No pertinent past surgical history <Jessica Starks MD - Last Filed: 08/06/21 21:33> Family History Family History: Family History Father Lung cancer Mother No problems noted. Maternal Aunt History of heart attack Sister No problems noted. Brother Cancer of kidney Brother No problems noted. Brother No problems noted. Brother No problems noted. Brother No problems noted. Brother No problems noted. Other Substance use disorder <Jessica Starks MD - Last Filed: 08/06/21 21:33> Social History Social History: Social History Household Members: Spouse Housing: House Do you presently have visiting nurse or other home services: No Alcohol intake: current Alcohol intake frequency: 0-2 drinks per day Patient Tobacco Use Status: Tobacco use Unknown Cigarette Packs Per Day: 1 Cigarettes Per Day: 20.0 e-Cigarette/Vaping Use: Never Used Second Hand Smoke Exposure: No Use of substances other than those prescribed or required for medical reasons: Unknown Advance Directives: No Advance Directives Information Provided: No service: No Current occupational status: unemployed <Jessica Starks MD - Last Filed: 08/06/21 21:33> Physical Exam Vital Signs: Vital Signs: Last Vital Signs Temp 98.1 F 08/06/21 22:51 Pulse 97 08/07/21 00:19 Resp 16 08/07/21 00:19 BP 136/90 H 08/07/21 00:18 Pulse Ox 95 08/07/21 00:19 BMI result Body Mass Index 43.6 Extremely large male complaining of weakness. Appearance: Alert. Oriented X self and place No acute distress. No obvious head trauma noted Eyes: Pupils equal, round and reactive to light. No midface tenderness no malocclusion no hemotympanum ENT: Pharynx normal. Trachea is midline Neck: Normal inspection. Neck supple. No lymph nodes noted. No crepitus CVS: Normal heart rate and rhythm. Pulses normal. Normal S1 and S2 Respiratory: Diminished breath sounds bilaterally. No crepitus on palpation. No chest wall tenderness on palpation Abdomen: Soft and nontender. No rigidity. No distention. good BS x4 Skin: Skin warm and dry. Normal skin color. Normal skin turgor. Extremities: No lower extremity edema. Neurovascular intact to all extremities. No Lacerations. No Rash Neuro: Oriented to self and place. Moving all extermities. No slurred speech <Jessica Starks MD - Last Filed: 08/06/21 21:33> Vital Signs: Last Vital Signs Temp 98.1 F 08/06/21 22:51 Pulse 97 08/07/21 00:19 Resp 16 08/07/21 00:19 BP 136/90 H 08/07/21 00:18 Pulse Ox 95 08/07/21 00:19 BMI result Body Mass Index 43.6 <Dione Mcadams DO - Last Filed: 08/07/21 01:23> Course Course Course Narrative: received sign out at 9pm. fluids held given BNP and effusions. he is alert and oriented x 3 now after being on bipap since 9pm. will give lokelma for mildly elevated K - magnesium level ordered. thiamine IV ordered. CT scans negative for trauma. He states he has been drinking at home - he is very tremulous on my exam. Could have been a withdrawal seizure put on phenobarb now. Plan to continue on bipap for another hour then recheck CO level and admit to hospital. ABG improved, pH normal - will trial off bipap, mental status improved at this time. doing well off bipap 4L NC 97% bipap used for chronic respiratory failure and not infection or severe sepsis more delerious, IV ativan ordered, much improved, placed on his overnight CPAP on home settings <Dione Mcadams DO - Last Filed: 08/07/21 01:23> Medical Decision Making MDM Narrative Medical decision making narrative: Patient's ABG showed acute on chronic CO2 retention with a pH of 7.32 pCO2 in the 70s. Given patient's large size history of sleep apnea we will go ahead and place patient on BiPAP. Has a history of being on Eliquis question fall will go ahead and get a CT scan of the head neck chest abdomen pelvis to rule out the possibility of bleed fracture retroperitoneal hematoma. Labs ordered. Will monitor extremely carefully given patient's previous history. Medication that he has might be on. Patient's EKG showed Cole atrial fibrillation pattern heart rate is approximately 100 QRS QT within normal limits there is no acute ST segment elevation noted. Patient's alcohol level is less than 10. Less likely to be a source of patie nt's change in mental status cannot exclude the possibility metabolic causes of patient's change in mental status. LFTs were normal. Potassium elevated at 5.8 with evidence for dehydration. IV fluid was started. CT scans are pending. <Jessica Starks MD - Last Filed: 08/06/21 21:33> Lab Data Result diagrams: : 08/06/21 20:27 08/06/21 20:27 <Jessica Starks MD - Last Filed: 08/06/21 21:33> Labs: Lab Results 08/06/21 08/06/21 08/06/21 Range/Units 19:27 20:27 20:27 WBC 11.3 H (4.8-10.8) X10*3/uL RBC 4.62 (4.60-5.80) X10*6/uL Hgb 13.8 L (14.0-18.0) g/dl Hct 44.3 (42.0-52.0) % MCV 95.9 (80.0-98.0) fL MCH 29.9 (27.0-33.0) pg MCHC 31.2 (31.0-36.0) g/dl RDW 14.9 (11.0-16.0) % Plt Count 155 L (160-400) X10*3/uL MPV 10.6 (9.4-12.4) fL Immature Gran % (Auto) 0.4 (0.0-0.4) % Neut % (Auto) 71.3 (45-73) % Lymph % (Auto) 16.4 L (20-40) % [place] % (Auto) 11.0 (2-11) % Eos % (Auto) 0.4 (0-4) % Baso % (Auto) 0.5 (0-2) % Lymph # (Auto) 1.9 (1.2-4.9) X10*3/uL [place] # (Auto) 1.2 (0.1-1.2) X10*3/uL Eos # (Auto) 0.0 (0.0-0.4) X10*3/uL Baso # (Auto) 0.1 (0.0-0.2) X10*3/uL Abs Immat Gran (auto) 0.05 H (0.00-0.03) X10*3/uL Absolute Neuts (auto) 8.0 (2.0-8.3) x10*3/uL Absolute Nucleated RBC 0.020 H (0.0-0.012) X10*3/uL Nucleated RBC % (auto) 0.2 (0.0-0.2) /100WBC PT (9.9-13.0) SEC INR (0.9-1.1) O2 Saturation 97.0 % ABG pH at Pt Temp 7.33 L (7.35-7.45) ABG pCO2 at Pt Temp 72 H* (32-45) mmHg ABG pO2 at Pt Temp 105 (83-108) mmHg ABG HCO3 38 H (22-26) mmol/L ABG Base Excess (Actual) 9.3 mmol/L Sodium 137 (135-145) mmol/L Potassium 5.8 H D (3.3-5.1) mmol/L Chloride 96 (96-108) mmol/L Carbon Dioxide 35 H (22-29) mmol/L Anion Gap 12 (12-20) BUN 31 H (9-16) mg/dL Creatinine 1.52 H (0.5-1.4) mg/dL Estim Creat Clear Calc 78.9 Estimated GFR 47 Random Glucose 135 H (60-115) mg/dL Lactic Acid (0.5-2.0) mmol/L Calcium 8.9 D (8.4-10.2) mg/dL Magnesium 1.8 (1.6-2.6) mg/dL Total Bilirubin 0.6 (0.0-1.0) mg/dL Direct Bilirubin 0.3 (0.0-0.5) mg/dL AST 13 (5-37) U/L ALT 6 (0-40) U/L Alkaline Phosphatase 93 (39-117) U/L Ammonia (13-55) umol/L Total Creatine Kinase 49 (38-174) U/L Troponin I High Sens (<3.5-35.0) ng/L B-Natriuretic Peptide (<100) pg/mL Total Protein 7.5 (6.5-8.0) g/dL Albumin 3.8 (3.5-5.0) g/dL Urine Color Urine Appearance Urine pH (5.0-8.0) Ur Specific [place] (1.005-1.025) Urine Protein (NEG-TRACE) MG/DL Urine Glucose (UA) (NEG) MG/DL Urine Ketones (NEG) MG/DL Urine Blood (NEG) Urine Nitrite (NEG) Ur Leukocyte Esterase (NEG) Urine RBC (0) /HPF Urine WBC (0-4) /HPF Ur Squamous Epith Cells /LPF Urine Bacteria /LPF Valproic Acid 11.1 L (50.0-100.0) mcg/mL Ethyl Alcohol mg/dL COVID-19 (LINDEN) (Negative) COVID-19 Clin Com 08/06/21 08/06/21 08/06/21 Range/Units 20:27 20:27 20:27 WBC (4.8-10.8) X10*3/uL RBC (4.60-5.80) X10*6/uL Hgb (14.0-18.0) g/dl Hct (42.0-52.0) % MCV (80.0-98.0) fL MCH (27.0-33.0) pg MCHC (31.0-36.0) g/dl RDW (11.0-16.0) % Plt Count (160-400) X10*3/uL MPV (9.4-12.4) fL Immature Gran % (Auto) (0.0-0.4) % Neut % (Auto) (45-73) % Lymph % (Auto) (20-40) % [place] % (Auto) (2-11) % Eos % (Auto) (0-4) % Baso % (Auto) (0-2) % Lymph # (Auto) (1.2-4.9) X10*3/uL [place] # (Auto) (0.1-1.2) X10*3/uL Eos # (Auto) (0.0-0.4) X10*3/uL Baso # (Auto) (0.0-0.2) X10*3/uL Abs Immat Gran (auto) (0.00-0.03) X10*3/uL Absolute Neuts (auto) (2.0-8.3) x10*3/uL Absolute Nucleated RBC (0.0-0.012) X10*3/uL Nucleated RBC % (auto) (0.0-0.2) /100WBC PT (9.9-13.0) SEC INR (0.9-1.1) O2 Saturation % ABG pH at Pt Temp (7.35-7.45) ABG pCO2 at Pt Temp (32-45) mmHg ABG pO2 at Pt Temp (83-108) mmHg ABG HCO3 (22-26) mmol/L ABG Base Excess (Actual) mmol/L Sodium (135-145) mmol/L Potassium (3.3-5.1) mmol/L Chloride (96-108) mmol/L Carbon Dioxide (22-29) mmol/L Anion Gap (12-20) BUN (9-16) mg/dL Creatinine (0.5-1.4) mg/dL Estim Creat Clear Calc Estimated GFR Random Glucose (60-115) mg/dL Lactic Acid 1.4 (0.5-2.0) mmol/L Calcium (8.4-10.2) mg/dL Magnesium (1.6-2.6) mg/dL Total Bilirubin (0.0-1.0) mg/dL Direct Bilirubin (0.0-0.5) mg/dL AST (5-37) U/L ALT (0-40) U/L Alkaline Phosphatase (39-117) U/L Ammonia (13-55) umol/L Total Creatine Kinase (38-174) U/L Troponin I High Sens 20.1 (<3.5-35.0) ng/L B-Natriuretic Peptide 500 H (<100) pg/mL Total Protein (6.5-8.0) g/dL Albumin (3.5-5.0) g/dL Urine Color Urine Appearance Urine pH (5.0-8.0) Ur Specific [place] (1.005-1.025) Urine Protein (NEG-TRACE) MG/DL Urine Glucose (UA) (NEG) MG/DL Urine Ketones (NEG) MG/DL Urine Blood (NEG) Urine Nitrite (NEG) Ur Leukocyte Esterase (NEG) Urine RBC (0) /HPF Urine WBC (0-4) /HPF Ur Squamous Epith Cells /LPF Urine Bacteria /LPF Valproic Acid (50.0-100.0) mcg/mL Ethyl Alcohol < 10 mg/dL COVID-19 (LINDEN) (Negative) COVID-19 Clin Com 08/06/21 08/06/21 08/06/21 Range/Units 20:27 20:27 22:08 WBC (4.8-10.8) X10*3/uL RBC (4.60-5.80) X10*6/uL Hgb (14.0-18.0) g/dl Hct (42.0-52.0) % MCV (80.0-98.0) fL MCH (27.0-33.0) pg MCHC (31.0-36.0) g/dl RDW (11.0-16.0) % Plt Count (160-400) X10*3/uL MPV (9.4-12.4) fL Immature Gran % (Auto) (0.0-0.4) % Neut % (Auto) (45-73) % Lymph % (Auto) (20-40) % [place] % (Auto) (2-11) % Eos % (Auto) (0-4) % Baso % (Auto) (0-2) % Lymph # (Auto) (1.2-4.9) X10*3/uL [place] # (Auto) (0.1-1.2) X10*3/uL Eos # (Auto) (0.0-0.4) X10*3/uL Baso # (Auto) (0.0-0.2) X10*3/uL Abs Immat Gran (auto) (0.00-0.03) X10*3/uL Absolute Neuts (auto) (2.0-8.3) x10*3/uL Absolute Nucleated RBC (0.0-0.012) X10*3/uL Nucleated RBC % (auto) (0.0-0.2) /100WBC PT 15.7 H (9.9-13.0) SEC INR 1.4 H (0.9-1.1) O2 Saturation % ABG pH at Pt Temp (7.35-7.45) ABG pCO2 at Pt Temp (32-45) mmHg ABG pO2 at Pt Temp (83-108) mmHg ABG HCO3 (22-26) mmol/L ABG Base Excess (Actual) mmol/L Sodium (135-145) mmol/L Potassium (3.3-5.1) mmol/L Chloride (96-108) mmol/L Carbon Dioxide (22-29) mmol/L Anion Gap (12-20) BUN (9-16) mg/dL Creatinine (0.5-1.4) mg/dL Estim Creat Clear Calc Estimated GFR Random Glucose (60-115) mg/dL Lactic Acid (0.5-2.0) mmol/L Calcium (8.4-10.2) mg/dL Magnesium (1.6-2.6) mg/dL Total Bilirubin (0.0-1.0) mg/dL Direct Bilirubin (0.0-0.5) mg/dL AST (5-37) U/L ALT (0-40) U/L Alkaline Phosphatase (39-117) U/L Ammonia 28 (13-55) umol/L Total Creatine Kinase (38-174) U/L Troponin I High Sens (<3.5-35.0) ng/L B-Natriuretic Peptide (<100) pg/mL Total Protein (6.5-8.0) g/dL Albumin (3.5-5.0) g/dL Urine Color Urine Appearance Urine pH (5.0-8.0) Ur Specific [place] (1.005-1.025) Urine Protein (NEG-TRACE) MG/DL Urine Glucose (UA) (NEG) MG/DL Urine Ketones (NEG) MG/DL Urine Blood (NEG) Urine Nitrite (NEG) Ur Leukocyte Esterase (NEG) Urine RBC (0) /HPF Urine WBC (0-4) /HPF Ur Squamous Epith Cells /LPF Urine Bacteria /LPF Valproic Acid (50.0-100.0) mcg/mL Ethyl Alcohol mg/dL COVID-19 (LINDEN) Negative (Negative) COVID-19 Clin Com See Note 08/06/21 08/06/21 Range/Units 22:08 23:13 WBC (4.8-10.8) X10*3/uL RBC (4.60-5.80) X10*6/uL Hgb (14.0-18.0) g/dl Hct (42.0-52.0) % MCV (80.0-98.0) fL MCH (27.0-33.0) pg MCHC (31.0-36.0) g/dl RDW (11.0-16.0) % Plt Count (160-400) X10*3/uL MPV (9.4-12.4) fL Immature Gran % (Auto) (0.0-0.4) % Neut % (Auto) (45-73) % Lymph % (Auto) (20-40) % [place] % (Auto) (2-11) % Eos % (Auto) (0-4) % Baso % (Auto) (0-2) % Lymph # (Auto) (1.2-4.9) X10*3/uL [place] # (Auto) (0.1-1.2) X10*3/uL Eos # (Auto) (0.0-0.4) X10*3/uL Baso # (Auto) (0.0-0.2) X10*3/uL Abs Immat Gran (auto) (0.00-0.03) X10*3/uL Absolute Neuts (auto) (2.0-8.3) x10*3/uL Absolute Nucleated RBC (0.0-0.012) X10*3/uL Nucleated RBC % (auto) (0.0-0.2) /100WBC PT (9.9-13.0) SEC INR (0.9-1.1) O2 Saturation 95.0 % ABG pH at Pt Temp 7.35 (7.35-7.45) ABG pCO2 at Pt Temp 67 H* (32-45) mmHg ABG pO2 at Pt Temp 79 L (83-108) mmHg ABG HCO3 37 H (22-26) mmol/L ABG Base Excess (Actual) 9.2 mmol/L Sodium (135-145) mmol/L Potassium (3.3-5.1) mmol/L Chloride (96-108) mmol/L Carbon Dioxide (22-29) mmol/L Anion Gap (12-20) BUN (9-16) mg/dL Creatinine (0.5-1.4) mg/dL Estim Creat Clear Calc Estimated GFR Random Glucose (60-115) mg/dL Lactic Acid (0.5-2.0) mmol/L Calcium (8.4-10.2) mg/dL Magnesium (1.6-2.6) mg/dL Total Bilirubin (0.0-1.0) mg/dL Direct Bilirubin (0.0-0.5) mg/dL AST (5-37) U/L ALT (0-40) U/L Alkaline Phosphatase (39-117) U/L Ammonia (13-55) umol/L Total Creatine Kinase (38-174) U/L Troponin I High Sens (<3.5-35.0) ng/L B-Natriuretic Peptide (<100) pg/mL Total Protein (6.5-8.0) g/dL Albumin (3.5-5.0) g/dL Urine Color YELLOW Urine Appearance CLEAR Urine pH 5.5 (5.0-8.0) Ur Specific [place] >= 1.030 H (1.005-1.025) Urine Protein 1+ H (NEG-TRACE) MG/DL Urine Glucose (UA) NEG (NEG) MG/DL Urine Ketones NEG (NEG) MG/DL Urine Blood TRACE (NEG) Urine Nitrite NEG (NEG) Ur Leukocyte Esterase NEG (NEG) Urine RBC 1-4 (0) /HPF Urine WBC 1-4 (0-4) /HPF Ur Squamous Epith Cells NONE /LPF Urine Bacteria TRACE /LPF Valproic Acid (50.0-100.0) mcg/mL Ethyl Alcohol mg/dL COVID-19 (LINDEN) (Negative) COVID-19 Clin Com <Jessica Starks MD - Last Filed: 08/06/21 21:33> Lab Results 08/06/21 08/06/21 08/06/21 Range/Units 19:27 20:27 20:27 WBC 11.3 H (4.8-10.8) X10*3/uL RBC 4.62 (4.60-5.80) X10*6/uL Hgb 13.8 L (14.0-18.0) g/dl Hct 44.3 (42.0-52.0) % MCV 95.9 (80.0-98.0) fL MCH 29.9 (27.0-33.0) pg MCHC 31.2 (31.0-36.0) g/dl RDW 14.9 (11.0-16.0) % Plt Count 155 L (160-400) X10*3/uL MPV 10.6 (9.4-12.4) fL Immature Gran % (Auto) 0.4 (0.0-0.4) % Neut % (Auto) 71.3 (45-73) % Lymph % (Auto) 16.4 L (20-40) % [place] % (Auto) 11.0 (2-11) % Eos % (Auto) 0.4 (0-4) % Baso % (Auto) 0.5 (0-2) % Lymph # (Auto) 1.9 (1.2-4.9) X10*3/uL [place] # (Auto) 1.2 (0.1-1.2) X10*3/uL Eos # (Auto) 0.0 (0.0-0.4) X10*3/uL Baso # (Auto) 0.1 (0.0-0.2) X10*3/uL Abs Immat Gran (auto) 0.05 H (0.00-0.03) X10*3/uL Absolute Neuts (auto) 8.0 (2.0-8.3) x10*3/uL Absolute Nucleated RBC 0.020 H (0.0-0.012) X10*3/uL Nucleated RBC % (auto) 0.2 (0.0-0.2) /100WBC PT (9.9-13.0) SEC INR (0.9-1.1) O2 Saturation 97.0 % ABG pH at Pt Temp 7.33 L (7.35-7.45) ABG pCO2 at Pt Temp 72 H* (32-45) mmHg ABG pO2 at Pt Temp 105 (83-108) mmHg ABG HCO3 38 H (22-26) mmol/L ABG Base Excess (Actual) 9.3 mmol/L Sodium 137 (135-145) mmol/L Potassium 5.8 H D (3.3-5.1) mmol/L Chloride 96 (96-108) mmol/L Carbon Dioxide 35 H (22-29) mmol/L Anion Gap 12 (12-20) BUN 31 H (9-16) mg/dL Creatinine 1.52 H (0.5-1.4) mg/dL Estim Creat Clear Calc 78.9 Estimated GFR 47 Random Glucose 135 H (60-115) mg/dL Lactic Acid (0.5-2.0) mmol/L Calcium 8.9 D (8.4-10.2) mg/dL Magnesium 1.8 (1.6-2.6) mg/dL Total Bilirubin 0.6 (0.0-1.0) mg/dL Direct Bilirubin 0.3 (0.0-0.5) mg/dL AST 13 (5-37) U/L ALT 6 (0-40) U/L Alkaline Phosphatase 93 (39-117) U/L Ammonia (13-55) umol/L Total Creatine Kinase 49 (38-174) U/L Troponin I High Sens (<3.5-35.0) ng/L B-Natriuretic Peptide (<100) pg/mL Total Protein 7.5 (6.5-8.0) g/dL Albumin 3.8 (3.5-5.0) g/dL Urine Color Urine Appearance Urine pH (5.0-8.0) Ur Specific [place] (1.005-1.025) Urine Protein (NEG-TRACE) MG/DL Urine Glucose (UA) (NEG) MG/DL Urine Ketones (NEG) MG/DL Urine Blood (NEG) Urine Nitrite (NEG) Ur Leukocyte Esterase (NEG) Urine RBC (0) /HPF Urine WBC (0-4) /HPF Ur Squamous Epith Cells /LPF Urine Bacteria /LPF Valproic Acid 11.1 L (50.0-100.0) mcg/mL Ethyl Alcohol mg/dL COVID-19 (LINDEN) (Negative) COVID-19 Clin Com 08/06/21 08/06/21 08/06/21 Range/Units 20:27 20:27 20:27 WBC (4.8-10.8) X10*3/uL RBC (4.60-5.80) X10*6/uL Hgb (14.0-18.0) g/dl Hct (42.0-52.0) % MCV (80.0-98.0) fL MCH (27.0-33.0) pg MCHC (31.0-36.0) g/dl RDW (11.0-16.0) % Plt Count (160-400) X10*3/uL MPV (9.4-12.4) fL Immature Gran % (Auto) (0.0-0.4) % Neut % (Auto) (45-73) % Lymph % (Auto) (20-40) % [place] % (Auto) (2-11) % Eos % (Auto) (0-4) % Baso % (Auto) (0-2) % Lymph # (Auto) (1.2-4.9) X10*3/uL [place] # (Auto) (0.1-1.2) X10*3/uL Eos # (Auto) (0.0-0.4) X10*3/uL Baso # (Auto) (0.0-0.2) X10*3/uL Abs Immat Gran (auto) (0.00-0.03) X10*3/uL Absolute Neuts (auto) (2.0-8.3) x10*3/uL Absolute Nucleated RBC (0.0-0.012) X10*3/uL Nucleated RBC % (auto) (0.0-0.2) /100WBC PT (9.9-13.0) SEC INR (0.9-1.1) O2 Saturation % ABG pH at Pt Temp (7.35-7.45) ABG pCO2 at Pt Temp (32-45) mmHg ABG pO2 at Pt Temp (83-108) mmHg ABG HCO3 (22-26) mmol/L ABG Base Excess (Actual) mmol/L Sodium (135-145) mmol/L Potassium (3.3-5.1) mmol/L Chloride (96-108) mmol/L Carbon Dioxide (22-29) mmol/L Anion Gap (12-20) BUN (9-16) mg/dL Creatinine (0.5-1.4) mg/dL Estim Creat Clear Calc Estimated GFR Random Glucose (60-115) mg/dL Lactic Acid 1.4 (0.5-2.0) mmol/L Calcium (8.4-10.2) mg/dL Magnesium (1.6-2.6) mg/dL Total Bilirubin (0.0-1.0) mg/dL Direct Bilirubin (0.0-0.5) mg/dL AST (5-37) U/L ALT (0-40) U/L Alkaline Phosphatase (39-117) U/L Ammonia (13-55) umol/L Total Creatine Kinase (38-174) U/L Troponin I High Sens 20.1 (<3.5-35.0) ng/L B-Natriuretic Peptide 500 H (<100) pg/mL Total Protein (6.5-8.0) g/dL Albumin (3.5-5.0) g/dL Urine Color Urine Appearance Urine pH (5.0-8.0) Ur Specific [place] (1.005-1.025) Urine Protein (NEG-TRACE) MG/DL Urine Glucose (UA) (NEG) MG/DL Urine Ketones (NEG) MG/DL Urine Blood (NEG) Urine Nitrite (NEG) Ur Leukocyte Esterase (NEG) Urine RBC (0) /HPF Urine WBC (0-4) /HPF Ur Squamous Epith Cells /LPF Urine Bacteria /LPF Valproic Acid (50.0-100.0) mcg/mL Ethyl Alcohol < 10 mg/dL COVID-19 ([facility]INDEN) (Negative) COVID-19 Clin Com 08/06/21 08/06/21 08/06/21 Range/Units 20:27 20:27 22:08 WBC (4.8-10.8) X10*3/uL RBC (4.60-5.80) X10*6/uL Hgb (14.0-18.0) g/dl Hct (42.0-52.0) % MCV (80.0-98.0) fL MCH (27.0-33.0) pg MCHC (31.0-36.0) g/dl RDW (11.0-16.0) % Plt Count (160-400) X10*3/uL MPV (9.4-12.4) fL Immature Gran % (Auto) (0.0-0.4) % Neut % (Auto) (45-73) % Lymph % (Auto) (20-40) % [place] % (Auto) (2-11) % Eos % (Auto) (0-4) % Baso % (Auto) (0-2) % Lymph # (Auto) (1.2-4.9) X10*3/uL [place] # (Auto) (0.1-1.2) X10*3/uL Eos # (Auto) (0.0-0.4) X10*3/uL Baso # (Auto) (0.0-0.2) X10*3/uL Abs Immat Gran (auto) (0.00-0.03) X10*3/uL Absolute Neuts (auto) (2.0-8.3) x10*3/uL Absolute Nucleated RBC (0.0-0.012) X10*3/uL Nucleated RBC % (auto) (0.0-0.2) /100WBC PT 15.7 H (9.9-13.0) SEC INR 1.4 H (0.9-1.1) O2 Saturation % ABG pH at Pt Temp (7.35-7.45) ABG pCO2 at Pt Temp (32-45) mmHg ABG pO2 at Pt Temp (83-108) mmHg ABG HCO3 (22-26) mmol/L ABG Base Excess (Actual) mmol/L Sodium (135-145) mmol/L Potassium (3.3-5.1) mmol/L Chloride (96-108) mmol/L Carbon Dioxide (22-29) mmol/L Anion Gap (12-20) BUN (9-16) mg/dL Creatinine (0.5-1.4) mg/dL Estim Creat Clear Calc Estimated GFR Random Glucose (60-115) mg/dL Lactic Acid (0.5-2.0) mmol/L Calcium (8.4-10.2) mg/dL Magnesium (1.6-2.6) mg/dL Total Bilirubin (0.0-1.0) mg/dL Direct Bilirubin (0.0-0.5) mg/dL AST (5-37) U/L ALT (0-40) U/L Alkaline Phosphatase (39-117) U/L Ammonia 28 (13-55) umol/L Total Creatine Kinase (38-174) U/L Troponin I High Sens (<3.5-35.0) ng/L B-Natriuretic Peptide (<100) pg/mL Total Protein (6.5-8.0) g/dL Albumin (3.5-5.0) g/dL Urine Color Urine Appearance Urine pH (5.0-8.0) Ur Specific [place] (1.005-1.025) Urine Protein (NEG-TRACE) MG/DL Urine Glucose (UA) (NEG) MG/DL Urine Ketones (NEG) MG/DL Urine Blood (NEG) Urine Nitrite (NEG) Ur Leukocyte Esterase (NEG) Urine RBC (0) /HPF Urine WBC (0-4) /HPF Ur Squamous Epith Cells /LPF Urine Bacteria /LPF Valproic Acid (50.0-100.0) mcg/mL Ethyl Alcohol mg/dL COVID-19 ([facility]INDEN) Negative (Negative) COVID-19 Clin Com See Note 08/06/21 08/06/21 Range/Units 22:08 23:13 WBC (4.8-10.8) X10*3/uL RBC (4.60-5.80) X10*6/uL Hgb (14.0-18.0) g/dl Hct (42.0-52.0) % MCV (80.0-98.0) fL MCH (27.0-33.0) pg MCHC (31.0-36.0) g/dl RDW (11.0-16.0) % Plt Count (160-400) X10*3/uL MPV (9.4-12.4) fL Immature Gran % (Auto) (0.0-0.4) % Neut % (Auto) (45-73) % Lymph % (Auto) (20-40) % [place] % (Auto) (2-11) % Eos % (Auto) (0-4) % Baso % (Auto) (0-2) % Lymph # (Auto) (1.2-4.9) X10*3/uL [place] # (Auto) (0.1-1.2) X10*3/uL Eos # (Auto) (0.0-0.4) X10*3/uL Baso # (Auto) (0.0-0.2) X10*3/uL Abs Immat Gran (auto) (0.00-0.03) X10*3/uL Absolute Neuts (auto) (2.0-8.3) x10*3/uL Absolute Nucleated RBC (0.0-0.012) X10*3/uL Nucleated RBC % (auto) (0.0-0.2) /100WBC PT (9.9-13.0) SEC INR (0.9-1.1) O2 Saturation 95.0 % ABG pH at Pt Temp 7.35 (7.35-7.45) ABG pCO2 at Pt Temp 67 H* (32-45) mmHg ABG pO2 at Pt Temp 79 L (83-108) mmHg ABG HCO3 37 H (22-26) mmol/L ABG Base Excess (Actual) 9.2 mmol/L Sodium (135-145) mmol/L Potassium (3.3-5.1) mmol/L Chloride (96-108) mmol/L Carbon Dioxide (22-29) mmol/L Anion Gap (12-20) BUN (9-16) mg/dL Creatinine (0.5-1.4) mg/dL Estim Creat Clear Calc Estimated GFR Random Glucose (60-115) mg/dL Lactic Acid (0.5-2.0) mmol/L Calcium (8.4-10.2) mg/dL Magnesium (1.6-2.6) mg/dL Total Bilirubin (0.0-1.0) mg/dL Direct Bilirubin (0.0-0.5) mg/dL AST (5-37) U/L ALT (0-40) U/L Alkaline Phosphatase (39-117) U/L Ammonia (13-55) umol/L Total Creatine Kinase (38-174) U/L Troponin I High Sens (<3.5-35.0) ng/L B-Natriuretic Peptide (<100) pg/mL Total Protein (6.5-8.0) g/dL Albumin (3.5-5.0) g/dL Urine Color YELLOW Urine Appearance CLEAR Urine pH 5.5 (5.0-8.0) Ur Specific [place] >= 1.030 H (1.005-1.025) Urine Protein 1+ H (NEG-TRACE) MG/DL Urine Glucose (UA) NEG (NEG) MG/DL Urine Ketones NEG (NEG) MG/DL Urine Blood TRACE (NEG) Urine Nitrite NEG (NEG) Ur Leukocyte Esterase NEG (NEG) Urine RBC 1-4 (0) /HPF Urine WBC 1-4 (0-4) /HPF Ur Squamous Epith Cells NONE /LPF Urine Bacteria TRACE /LPF Valproic Acid (50.0-100.0) mcg/mL Ethyl Alcohol mg/dL COVID-19 ([facility]) (Negative) COVID-19 Clin Com <Dione Mcadams DO - Last Filed: 08/07/21 01:23> Critical Care Time Critical Care Time Critical Care Time: Yes <Dione Mcadams DO - Last Filed: 08/07/21 01:23> Total Critical Care Time: 45 <Dione Mcadams DO - Last Filed: 08/07/21 01:23> Attestation: reassessments on bipap, ABG, IM phenobarb protocol, admit to hospital, review of records I attest to this time spent taking care of the patient <Dione Mcadams DO - Last Filed: 08/07/21 01:23> Discharge Plan Discharge Clinical Impression: Acute alteration in mental status, Hypercarbia Alcohol withdrawal Qualifiers: Complication of substance-induced condition: with delirium Qualified Code(s): F10.231 - Alcohol dependence with withdrawal delirium <Jessica Starks MD - Last Filed: 08/06/21 21:33> Patient Disposition: Admitted As Inpatient <Jessica Starks MD - Last Filed: 08/06/21 21:33>
[2021-08-06 20:35] LABS: MANUAL DIFF FLAG NO
[2021-08-06 20:37] LABS: Basophils Absolute Auto 0.1 X10*3/uL (0.0-0.2); Basophils Percent Auto 0.5 % (0-2); Eosinophils Percent Auto 0.4 % (0-4); Hematocrit 44.3 % (42.0-52.0); Hemoglobin 13.8 g/dl (14.0-18.0); Imm Gran Abs Auto 0.05 X10*3/uL (0.00-0.03); Imm Gran Pct Auto 0.4 % (0.0-0.4); Lymphocytes Absolute Auto 1.9 X10*3/uL (1.2-4.9); Lymphocytes Percent Auto 16.4 % (20-40); Mean Corpuscular HGB Conc 31.2 g/dl (31.0-36.0); Mean Corpuscular Hemoglobin 29.9 pg (27.0-33.0); Mean Corpuscular Volume 95.9 fL (80.0-98.0); Mean Platelet Volume 10.6 fL (9.4-12.4); Monocytes Absolute Auto 1.2 X10*3/uL (0.1-1.2); NRBC Pct Auto 0.2 /100WBC (0.0-0.2); Neutrophils Percent Auto 71.3 % (45-73); Platelet Count 155 X10*3/uL (160-400); Red Blood Count 4.62 X10*6/uL (4.60-5.80); Red Cell Distribution Width 14.9 % (11.0-16.0); White Blood Count 11.3 X10*3/uL (4.8-10.8)
[2021-08-06 20:42] LABS: INTERNATIONAL NORM RATIO 1.4 (0.9-1.1); Prothrombin Time 15.7 SEC (9.9-13.0)
[2021-08-06 20:50] LABS: Lactic Acid 1.4 mmol/L (0.5-2.0)
[2021-08-06 20:51] LABS: Ethanol < 10 mg/dL
[2021-08-06 20:52] LABS: Anion Gap 12 (12-20); Blood Urea Nitrogen 31 mg/dL (9-16); Calcium 8.9 mg/dL (8.4-10.2); Carbon Dioxide 35 mmol/L (22-29); Chloride 96 mmol/L (96-108); Creatinine Clr Calc Pharmacy 78.9; Estimated Glomerular Filt Rate 47; Glucose Random 135 mg/dL (60-115); Potassium 5.8 mmol/L (3.3-5.1); Sodium 137 mmol/L (135-145)
[2021-08-06 20:54] LABS: COVID-19 Test Negative (Negative)
[2021-08-06 20:57] LABS: B Type Natriuretic Peptide 500 pg/mL (<100); Troponin-I High Sensitivity 20.1 ng/L (<3.5-35.0)
[2021-08-06 20:58] LABS: Valproate 11.1 mcg/mL (50.0-100.0)
--- NOTE | 2021-08-06 21:00 | PC.NURSE ---
Elana Galindo () of patient
[2021-08-06 21:08] LABS: Alanine Aminotransferase 6 U/L (0-40); Albumin Level 3.8 g/dL (3.5-5.0); Alkaline Phosphatase 93 U/L (39-117); Aspartate Amino Transferase 13 U/L (5-37); Bilirubin Direct 0.3 mg/dL (0.0-0.5); Bilirubin Total 0.6 mg/dL (0.0-1.0); Total Protein 7.5 g/dL (6.5-8.0)
[2021-08-06 21:16] LABS: ABG Refer to POC result
[2021-08-06 21:22] VITALS: BP 145/87; PULSE 85; RESP 14; TEMP 36.5; O2SAT 96
--- NOTE | 2021-08-06 21:33 | PC.NURSE ---
Patient's brother Ortiz Galindo- .
[2021-08-06 21:56] LABS: Magnesium 1.8 mg/dL (1.6-2.6)
[2021-08-06] MEDS: 0.9 % Sodium Chloride 1,000 ML 999 ML IV (21:57)
[2021-08-06] MEDS: 0.9 % Sodium Chloride 500 ML 999 ML IV (21:58)
[2021-08-06 22:13] LABS: Appearance Urine CLEAR; Color Urine YELLOW; Glucose Urine UA NEG (NEG); Leukocyte Esterase Urine NEG (NEG); Nitrite Urine NEG (NEG); PH 5.5 (5.0-8.0); Specific Gravity - Urine >= 1.030 (1.005-1.025); UACC Culture Trigger NO; Urine Blood TRACE (NEG); Urine Ketones NEG (NEG); Urine Protein 1+ MG/DL (NEG-TRACE)
[2021-08-06 22:19] LABS: Ammonia 28 umol/L (13-55)
--- NOTE | 2021-08-06 22:31 | HE.PHANOTE ---
PHENOBARBITAL DOSING Patients IBW = 79.9 kg and Actual Body Weight = 150 kg. Dosing phenobarbital based on IBW. Patient may need and additional IM phenobarbital dose if still having symptoms.
[2021-08-06 22:32] LABS: Bacteria Urine TRACE /LPF
[2021-08-06] MEDS: Sodium Zirconium Cyclosilicate 5 GM POWD.PACK PO (22:43)
[2021-08-06] MEDS: PHENobarbitaL sodium 130 MG/ML VIAL 320 MG IM (22:43)
[2021-08-06] MEDS: Thiamine HCL 200 MG in 0.9 % Sodium Chloride 100 ML 204 MG IV (22:43)
[2021-08-06 22:51] VITALS: TEMP 36.7
[2021-08-06 23:08] VITALS: O2SAT 93
[2021-08-06 23:19] LABS: ABG Refer to POC result
[2021-08-06 23:20] LABS: ABG Base Excess 9.2 mmol/L; ABG HCO3 37 mmol/L (22-26); ABG pCO2 67 mmHg (32-45); ABG pH 7.35 (7.35-7.45); ABG pO2 79 mmHg (83-108)
[2021-08-07] VITALS (25 sets, daily range): BP systolic 130–154; BP diastolic 9–99; PULSE 82–110; RESP 11–23; TEMP 36–36.9; O2SAT 89–99
--- NOTE | 2021-08-07 00:36 | PC.NURSE ---
PT CURRENTLY BEING TRIALED OFF OF BIPAP AT THIS TIME. PT ON 4L O2 VIA NC
[2021-08-07] MEDS: PHENobarbitaL sodium 130 MG/ML VIAL 240 MG IM ×2 (00:58→04:11)
[2021-08-07] MEDS: LORazepam 2 MG/ML VIAL 1 MG IVPUSH (01:00)
--- NOTE | 2021-08-07 01:02 | PC.NURSE ---
Medicated per Mar. Provider into to assess pt. RN Izaiah aware. Will continue to monitor.
--- NOTE | 2021-08-07 01:07 | PC.NURSE ---
PT BECOMING MORE TREMULOUS, AND MORE DISORIENTED. PT O2 SAT RANGING FROM 88-92 ON 4L NC PT MEDICATED PER EMAR FOR ETOH WITHDRAWL, WILL CONTINUE TO MONITOR. MD AT BEDSIDE DURING THIS CARE
[2021-08-07 02:01] LABS: VBG Base Excess 8.3 mmol/L; VBG HCO3 34 mmol/L (22-26); VBG pCO2 53 mmHg; VBG pH 7.41 (7.32-7.43); VBG pO2 153 mmHg
[2021-08-07 02:02] LABS: Venous Blood Gas Refer to POC result
[2021-08-07 03:45] LABS: MANUAL DIFF FLAG NO
[2021-08-07 03:46] LABS: Venous Blood Gas Refer to POC result
[2021-08-07 03:46] LABS: Basophils Absolute Auto 0.1 X10*3/uL (0.0-0.2); Basophils Percent Auto 0.6 % (0-2); Eosinophils Absolute Auto 0.1 X10*3/uL (0.0-0.4); Hematocrit 46.5 % (42.0-52.0); Hemoglobin 14.5 g/dl (14.0-18.0); Imm Gran Abs Auto 0.03 X10*3/uL (0.00-0.03); Imm Gran Pct Auto 0.3 % (0.0-0.4); Lymphocytes Percent Auto 19.7 % (20-40); Mean Corpuscular HGB Conc 31.2 g/dl (31.0-36.0); Mean Corpuscular Hemoglobin 29.5 pg (27.0-33.0); Mean Corpuscular Volume 94.7 fL (80.0-98.0); Mean Platelet Volume 10.7 fL (9.4-12.4); Monocytes Absolute Auto 1.2 X10*3/uL (0.1-1.2); Monocytes Percent Auto 11.7 % (2-11); Neutrophils Absolute Auto 6.8 x10*3/uL (2.0-8.3); Neutrophils Percent Auto 66.7 % (45-73); Platelet Count 153 X10*3/uL (160-400); Red Blood Count 4.91 X10*6/uL (4.60-5.80); White Blood Count 10.1 X10*3/uL (4.8-10.8)
[2021-08-07 03:49] LABS: VBG Base Excess 9.9 mmol/L; VBG HCO3 38 mmol/L (22-26); VBG pCO2 68 mmHg; VBG pH 7.36 (7.32-7.43); VBG pO2 61 mmHg
[2021-08-07 04:09] LABS: Blood Urea Nitrogen 28 mg/dL (9-16); Calcium 8.9 mg/dL (8.4-10.2); Creatinine Clr Calc Pharmacy 95.9; Estimated Glomerular Filt Rate 59; Glucose Random 125 mg/dL (60-115)
[2021-08-07 04:10] LABS: Anion Gap 12 (12-20); Carbon Dioxide 34 mmol/L (22-29); Chloride 98 mmol/L (96-108); Potassium 4.5 mmol/L (3.3-5.1); Sodium 139 mmol/L (135-145)
--- NOTE | 2021-08-07 05:51 | P.HPHOSP_ITS ---
History of Present Illness Date of Service: 08/07/21 Chief Complaint: hypoxic 61-year-old male with past medical history of AFib, alcohol dependency with history of alcohol withdrawal, anxiety, CHF, depression, diabetes, hypertension, sleep apnea, history of Wernicke is encephalopathy, who presents to the hospital after being found short of breath at home. History is obtained mostly from ED physicians as IM, unable to get much history from the patient himself he is short of breath, and not really cooperating., reports that his called EMS, tried to reach the but there is no phone number on file. It appears that patient was found short of breath in bed And not moving well. Question of fall, of note patient has history of severe alcohol withdrawal and cardiac arrest in 2019., on arrival of EMS patient was found hypoxic in the 80s. He has also been drinking, patient reports that his last drink was yesterday, unclear if patient had any withdrawal seizures and now much more history can be obtained regarding the circumstances that brought him to the hospital. Full review of system cannot be obtained Past medical history per EMR On arrival to the ED patient found to have tachycardia, satting 85% on room air 95%. Patient placed on BiPAP for few hours, on my interview patient was on for L of nasal cannula satting Labs are significant for WBC count of 11.3, hemoglobin 13.8, PT of 15.7, in our of 1.4, pH was found to be 7.33, with a CO2 of 72, an oxygen of 105, potassium 5.8, BUN of 31, creatinine of 1.52 with a baseline of 1.1, UA negative, BNP of 500 which is significantly lower than his baseline. Repeat VBG post BiPAP shows improvement in his CO2 as well as pH Patient received IV fluids, and was started on phenobarb and will be admitted for further management. Review of Systems Review of Systems: Yes all other systems are reviewed and are negative [facility] Medical History Afib Alcohol dependency Anxiety Arthritis CHF (congestive heart failure) Depression Diabetes Fever of unknown origin Gout HTN (hypertension) Left atrial enlargement Seroma due to trauma Sleep apnea Wernicke encephalopathy Family History Father Lung cancer Mother No problems noted. Maternal Aunt History of heart attack Sister No problems noted. Brother Cancer of kidney Brother No problems noted. Brother No problems noted. Brother No problems noted. Brother No problems noted. Brother No problems noted. Other Substance use disorder Surgical History No pertinent past surgical history Social History Household Members: Spouse Housing: House Do you presently have visiting nurse or other home services: No Alcohol intake: current Alcohol intake frequency: 0-2 drinks per day Patient Tobacco Use Status: Tobacco use Unknown Cigarette Packs Per Day: 1 Cigarettes Per Day: 20.0 e-Cigarette/Vaping Use: Never Used Second Hand Smoke Exposure: No Use of substances other than those prescribed or required for medical reasons: Unknown Advance Directives: No Advance Directives Information Provided: No service: No Current occupational status: unemployed Meds Allergies Allergy/AdvReac Type Severity Reaction Status Date / Time No Known Allergies Allergy Verified 07/13/21 16:54 [No Known Allergies*] Active Medications: Current Medications Acetaminophen (Acetaminophen 325 Mg Tablet) 650 mg PO Q6H PRN PRN Reason: Pain, Mild (Pain Scale 1-3) Docusate Sodium (Docusate Sodium 100 Mg Capsule) 100 mg PO DAILY PRN PRN Reason: Constipation Ondansetron HCl (Ondansetron Hcl 4 Mg/2 Ml Vial) 4 mg IVPUSH Q8H PRN PRN Reason: Nausea and Vomiting Pharmacy Consult (Consult Rx Perform Med Rec) 1 each MISCELLANE ONCE PRN PRN Reason: Consult order Phenobarbital (Phenobarbital 30 Mg Tablet) 60 mg PO BID [facility]; Protocol Stop: 08/08/21 21:01 Phenobarbital (Phenobarbital 30 Mg Tablet) 30 mg PO BID [facility]; Protocol Stop: 08/10/21 21:01 Phenobarbital (Phenobarbital 30 Mg Tablet) 30 mg PO DAILY [facility]; Protocol Stop: 08/12/21 09:01 Sodium Chloride (0.9 % Sodium Chloride Flush 3 Ml Syringe) 3 ml IVFLUSH QSHIFT [facility] Home Medications Medication Instructions Recorded Confirmed Last Taken Type metformin 850 mg tablet 850 mg PO DAILY 03/03/21 08/06/21 Unknown History Physical Exam Vital Signs and Narrative: Vital Signs: Last Vital Signs Temp 98.1 F 08/06/21 22:51 Pulse 98 08/07/21 05:35 Resp 16 08/07/21 05:35 BP 130/74 08/07/21 05:35 Pulse Ox 98 08/07/21 05:35 BMI result Body Mass Index 43.6 Const: Other: oriented to self and place but very tremulous General: no acute distress Eyes: General: appearance normal, both eyes and all related structures Pupils: Equal, round and reactive pupils present Resp: Other: slighly tachypneic Effort & Inspection: normal respiratory effort Auscultation: clear to auscultation bilaterally Cardio: Rate: regular rate Rhythm: regular rhythm GI: Palpation (GI): Soft to palpation Auscultation: normal bowel sounds Skin: General skin exam: no rashes or lesions noted Neuro: Other: somewhat confused astrixes tremulous Cranial nerves: Yes Equal, round and reactive pupils present Extrem: General: Yes normal to inspection and Yes no pedal edema Results Labs CBC and Chem 7: 08/07/21 03:42 08/07/21 03:42 Labs: Laboratory Results - last 24 hr 08/06/21 08/06/21 08/06/21 19:27 20:27 20:27 MCV 95.9 MCH 29.9 MCHC 31.2 RDW 14.9 Plt Count 155 L MPV 10.6 Immature Gran % (Auto) 0.4 Neut % (Auto) 71.3 Lymph % (Auto) 16.4 L Becker % (Auto) 11.0 Eos % (Auto) 0.4 Baso % (Auto) 0.5 Lymph # (Auto) 1.9 Becker # (Auto) 1.2 Eos # (Auto) 0.0 Baso # (Auto) 0.1 Abs Immat Gran (auto) 0.05 H Absolute Neuts (auto) 8.0 Absolute Nucleated RBC 0.020 H Nucleated RBC % (auto) 0.2 PT INR O2 Saturation 97.0 ABG pH at Pt Temp 7.33 L ABG pCO2 at Pt Temp 72 H* ABG pO2 at Pt Temp 105 ABG HCO3 38 H ABG Base Excess (Actual) 9.3 VBG pH VBG pCO2 VBG pO2 VBG HCO3 VBG O2 Saturation VBG Base Excess Anion Gap 12 Estim Creat Clear Calc 78.9 Estimated GFR 47 Random Glucose 135 H Lactic Acid Calcium 8.9 D Magnesium 1.8 Total Bilirubin 0.6 Direct Bilirubin 0.3 AST 13 ALT 6 Alkaline Phosphatase 93 Ammonia Total Creatine Kinase 49 B-Natriuretic Peptide Total Protein 7.5 Albumin 3.8 Urine Color Urine Appearance Urine pH Ur Specific [place] Urine Protein Urine Glucose (UA) Urine Ketones Urine Blood Urine Nitrite Ur Leukocyte Esterase Urine RBC Urine WBC Ur Squamous Epith Cells Urine Bacteria Valproic Acid 11.1 L Ethyl Alcohol COVID-19 (LINDEN) COVID-19 [employer] 08/06/21 08/06/21 08/06/21 20:27 20:27 20:27 MCV MCH MCHC RDW Plt Count MPV Immature Gran % (Auto) Neut % (Auto) Lymph % (Auto) Becker % (Auto) Eos % (Auto) Baso % (Auto) Lymph # (Auto) Becker # (Auto) Eos # (Auto) Baso # (Auto) Abs Immat Gran (auto) Absolute Neuts (auto) Absolute Nucleated RBC Nucleated RBC % (auto) PT INR O2 Saturation ABG pH at Pt Temp ABG pCO2 at Pt Temp ABG pO2 at Pt Temp ABG HCO3 ABG Base Excess (Actual) VBG pH VBG pCO2 VBG pO2 VBG HCO3 VBG O2 Saturation VBG Base Excess Anion Gap Estim Creat Clear Calc Estimated GFR Random Glucose Lactic Acid 1.4 Calcium Magnesium Total Bilirubin Direct Bilirubin AST ALT Alkaline Phosphatase Ammonia Total Creatine Kinase B-Natriuretic Peptide 500 H Total Protein Albumin Urine Color Urine Appearance Urine pH Ur Specific [place] Urine Protein Urine Glucose (UA) Urine Ketones Urine Blood Urine Nitrite Ur Leukocyte Esterase Urine RBC Urine WBC Ur Squamous Epith Cells Urine Bacteria Valproic Acid Ethyl Alcohol < 10 COVID-19 (LINDEN) COVID-19 [employer] 08/06/21 08/06/21 08/06/21 20:27 20:27 22:08 MCV MCH MCHC RDW Plt Count MPV Immature Gran % (Auto) Neut % (Auto) Lymph % (Auto) Becker % (Auto) Eos % (Auto) Baso % (Auto) Lymph # (Auto) Becker # (Auto) Eos # (Auto) Baso # (Auto) Abs Immat Gran (auto) Absolute Neuts (auto) Absolute Nucleated RBC Nucleated RBC % (auto) PT 15.7 H INR 1.4 H O2 Saturation ABG pH at Pt Temp ABG pCO2 at Pt Temp ABG pO2 at Pt Temp ABG HCO3 ABG Base Excess (Actual) VBG pH VBG pCO2 VBG pO2 VBG HCO3 VBG O2 Saturation VBG Base Excess Anion Gap Estim Creat Clear Calc Estimated GFR Random Glucose Lactic Acid Calcium Magnesium Total Bilirubin Direct Bilirubin AST ALT Alkaline Phosphatase Ammonia 28 Total Creatine Kinase B-Natriuretic Peptide Total Protein Albumin Urine Color Urine Appearance Urine pH Ur Specific [place] Urine Protein Urine Glucose (UA) Urine Ketones Urine Blood Urine Nitrite Ur Leukocyte Esterase Urine RBC Urine WBC Ur Squamous Epith Cells Urine Bacteria Valproic Acid Ethyl Alcohol COVID-19 (LINDEN) Negative COVID-19 Clin Com See Note 08/06/21 08/06/21 08/07/21 22:08 23:13 01:52 MCV MCH MCHC RDW Plt Count MPV Immature Gran % (Auto) Neut % (Auto) Lymph % (Auto) Becker % (Auto) Eos % (Auto) Baso % (Auto) Lymph # (Auto) Becker # (Auto) Eos # (Auto) Baso # (Auto) Abs Immat Gran (auto) Absolute Neuts (auto) Absolute Nucleated RBC Nucleated RBC % (auto) PT INR O2 Saturation 95.0 ABG pH at Pt Temp 7.35 ABG pCO2 at Pt Temp 67 H* ABG pO2 at Pt Temp 79 L ABG HCO3 37 H ABG Base Excess (Actual) 9.2 VBG pH 7.41 VBG pCO2 53 VBG pO2 153 VBG HCO3 34 H VBG O2 Saturation 100.0 VBG Base Excess 8.3 Anion Gap Estim Creat Clear Calc Estimated GFR Random Glucose Lactic Acid Calcium Magnesium Total Bilirubin Direct Bilirubin AST ALT Alkaline Phosphatase Ammonia Total Creatine Kinase B-Natriuretic Peptide Total Protein Albumin Urine Color YELLOW Urine Appearance CLEAR Urine pH 5.5 Ur Specific [place] >= 1.030 H Urine Protein 1+ H Urine Glucose (UA) NEG Urine Ketones NEG Urine Blood TRACE Urine Nitrite NEG Ur Leukocyte Esterase NEG Urine RBC 1-4 Urine WBC 1-4 Ur Squamous Epith Cells NONE Urine Bacteria TRACE Valproic Acid Ethyl Alcohol COVID-19 (LINDEN) COVID-19 Clin Com 08/07/21 08/07/21 08/07/21 03:42 03:42 03:43 MCV 94.7 MCH 29.5 MCHC 31.2 RDW 15.0 Plt Count 153 L MPV 10.7 Immature Gran % (Auto) 0.3 Neut % (Auto) 66.7 Lymph % (Auto) 19.7 L Becker % (Auto) 11.7 H Eos % (Auto) 1.0 Baso % (Auto) 0.6 Lymph # (Auto) 2.0 Becker # (Auto) 1.2 Eos # (Auto) 0.1 Baso # (Auto) 0.1 Abs Immat Gran (auto) 0.03 Absolute Neuts (auto) 6.8 Absolute Nucleated RBC 0.000 Nucleated RBC % (auto) 0.0 PT INR O2 Saturation ABG pH at Pt Temp ABG pCO2 at Pt Temp ABG pO2 at Pt Temp ABG HCO3 ABG Base Excess (Actual) VBG pH 7.36 VBG pCO2 68 VBG pO2 61 VBG HCO3 38 H VBG O2 Saturation 87.0 VBG Base Excess 9.9 Anion Gap 12 Estim Creat Clear Calc 95.9 Estimated GFR 59 Random Glucose 125 H Lactic Acid Calcium 8.9 Magnesium Total Bilirubin Direct Bilirubin AST ALT Alkaline Phosphatase Ammonia Total Creatine Kinase B-Natriuretic Peptide Total Protein Albumin Urine Color Urine Appearance Urine pH Ur Specific [place] Urine Protein Urine Glucose (UA) Urine Ketones Urine Blood Urine Nitrite Ur Leukocyte Esterase Urine RBC Urine WBC Ur Squamous Epith Cells Urine Bacteria Valproic Acid Ethyl Alcohol COVID-19 (LINDEN) COVID-19 Clin Com Imaging Radiologist's Impressions: Impressions Abdomen/Pelvis CT 08/06/21 21:27 IMPRESSION: 1. No evidence of an acute traumatic injury in the chest abdomen or pelvis. 2. No significant hematomas are seen in the chest abdomen or pelvis secondary to the patient's anticoagulation. 3. Incidental note made of slight increase in size of small left effusion and new small right effusion, old right-sided rib fractures, mesenteric panniculitis unchanged, cirrhotic liver with ascites and other findings described above. Cervical Spine CT 08/06/21 21:27 IMPRESSION: 1. No acute intracranial pathology. 2. No CT evidence of acute cervical spine fracture or traumatic subluxation Chest CT 08/06/21 21:27 IMPRESSION: 1. No evidence of an acute traumatic injury in the chest abdomen or pelvis. 2. No significant hematomas are seen in the chest abdomen or pelvis secondary to the patient's anticoagulation. 3. Incidental note made of slight increase in size of small left effusion and new small right effusion, old right-sided rib fractures, mesenteric panniculitis unchanged, cirrhotic liver with ascites and other findings described above. Head CT 08/06/21 21:27 IMPRESSION: 1. No acute intracranial pathology. 2. No CT evidence of acute cervical spine fracture or traumatic subluxation Assessment and Plan (1) Acute alteration in mental status: Status: Acute (2) Alcohol withdrawal: Qualifiers: Complication of substance-induced condition: with delirium Qualified Code(s): F10.231 - Alcohol dependence with withdrawal delirium Status: Acute (3) Acute on chronic respiratory failure with hypoxia and hypercapnia: Status: Acute (4) Hyperkalemia: Status: Acute (5) MERLIN (acute kidney injury): Status: Acute Plan 61-year-old male with past medical history of sleep apnea on CPAP, question of compliance, alcohol abuse with history of alcohol withdrawal, among other problems including AFib diabetes hypertension who presents to the hospital after being found hypoxic at home. # Acute hypoxic hypercapnic respiratory failure - likely secondary to alcohol withdrawal, underlying sleep apnea and obesity hypoventilation syndrome - no documented history of COPD - patient found to be hypercapnic in the ED, placed on BiPAP for couple of hours with resolution of his hypercapnia - patient not on oxygen at home - no evidence of pneumonia and chest CT although chest CT did show increase in the size of the small left effusion and new small right effusion - at this time will continue CPAP at bedtime, continue oxygen as required - follow respiratory status - repeat VBG if patient comes with urge # alcohol withdrawal - likely contributing to his current clinical picture including the hypoxic hypercapnic episode - has significant tremors, asterixis, reports last drink yesterday, history of severe withdrawals - placed on phenobarb - thiamine folic acid - monitor # toxic metabolic encephalopathy - likely secondary to the hypercapnia as well as alcohol withdrawal - improved since arriving to the ED still slightly confused - continue CPAP at bedtime and phenobarb # hyperkalemia - most likely secondary to dehydration - resolved after IV fluids - follow BMP # MERLIN - clinically appears volume depleted - kidney function improved with IV fluids - BNP is only slightly elevated and lower compared to previous - will continue IV fluid at this time monitor volume status - will hold allopurinol # diabetes - low-dose sliding scale insulin - hold metformin - diabetic diet # CHF - does not appear to be in volume overload - has elevated BNP but significantly lower than his baseline - chest x-ray showing pleural effusion but patient clinically appears to be volume depleted - continue furosemide - follow volume status # hypertension - stable - continue antihypertensives # AFib - continue metoprolol as well as apixaban DVT prophylaxis: Apixaban Quality Stroke Does the patient have a stroke diagnosis?: No VTE Prior VTE?: No VTE Risk Level:: Medical - moderate - high VTE Device Contraindication: Treatment Not Indicated VTE Drug Contraindication: N/A - Med Ordered
[2021-08-07] MEDS: Lactated Ringers 1,000 ML 50 ML IVCONT (06:23)
[2021-08-07 08:05] LABS: Glucose, Whole Blood 111 mg/dL (60-115)
[2021-08-07] MEDS: Enoxaparin Sodium 150 MG/ML SYRINGE SUBCUT ×2 (08:49→21:10)
[2021-08-07] MEDS: PHENobarbitaL sodium 130 MG/ML VIAL 158.8 MG IM (08:50)
[2021-08-07] MEDS: 0.9 % Sodium Chloride Flush 3 ML SYRINGE IVFLUSH ×3 (09:33→21:12)
--- NOTE | 2021-08-07 10:03 | PM.GICN ---
History of Present Illness Data of Consult Service Date: 08/07/21 Requesting physician: Josie Tapia Primary Care Provider: Ortiz Deluca, [facility]- HPI Reason for consult: cirrhosis 61-year-old male with past medical history of AFib, alcohol dependency with history of alcohol withdrawal, anxiety, CHF, depression, diabetes, hypertension, sleep apnea, Wernicke encephalopathy, who I am asked to see for assessment for cirrhosis. Minimal history from patient, v somnolent, on VPAP Apparently patient was found to be SOB and admitted to ED with hypoxia and needed VPAP to get his oxygenation up. Patient is apparently continuing to drink alcohol. LABS: WBC? count of 11.3, hemoglobin 13.8, PT of 15.7, INR 1.4, pH was found to be 7.33, with a CO2 of 72, an oxygen of 105, potassium? 5.8, BUN of 31, creatinine of 1.52 with a baseline of 1.1, UA negative, BNP of 50 Imaging: pleural effusions, cirrhosis, ascites, old rib fractures, mesenteritis. Review of Systems Review of Systems: Yes Unobtainable due to mental condition and Unobtainable due to mental status PMFSH Past Medical History Medical History Afib Alcohol dependency Anxiety Arthritis CHF (congestive heart failure) Depression Diabetes Fever of unknown origin Gout HTN (hypertension) Left atrial enlargement Seroma due to trauma Sleep apnea Wernicke encephalopathy Family History Family History Father Lung cancer Mother No problems noted. Maternal Aunt History of heart attack Sister No problems noted. Brother Cancer of kidney Brother No problems noted. Brother No problems noted. Brother No problems noted. Brother No problems noted. Brother No problems noted. Other Substance use disorder Surgical History Surgical History No pertinent past surgical history Social History Social History Household Members: Spouse Housing: House Do you presently have visiting nurse or other home services: No Alcohol intake: current Alcohol intake frequency: 0-2 drinks per day Patient Tobacco Use Status: Tobacco use Unknown Cigarette Packs Per Day: 1 Cigarettes Per Day: 20.0 e-Cigarette/Vaping Use: Never Used Second Hand Smoke Exposure: No Use of substances other than those prescribed or required for medical reasons: Unknown Advance Directives: No Advance Directives Information Provided: No service: Yes Current occupational status: unemployed Meds Allergies Allergy/AdvReac Type Severity Reaction Status Date / Time No Known Allergies Allergy Verified 07/13/21 16:54 [No Known Allergies*] Active Medications: Current Medications Acetaminophen (Acetaminophen 325 Mg Tablet) 650 mg PO Q6H PRN PRN Reason: Pain, Mild (Pain Scale 1-3) Albuterol Sulfate (Albuterol Sulfate 90 Mcg 8 Gm Inhaler) 2 puff INHALE Q4H PRN PRN Reason: for wheezing Albuterol/Ipratropium (Albuterol/Iprat 2.5/0.5mg 3 Ml Ampul.Neb) 3 ml INHALE RQ4H WHILE AWAKE [facility] Allopurinol (Allopurinol 100 Mg Tablet) 100 mg PO DAILY [facility] Amlodipine Besylate (Amlodipine Besylate 5 Mg Tablet) 5 mg PO DAILY [facility]; Protocol Dextrose (Dextrose 50 % 25 Gm/50 Ml Syringe) 25 gm IVPUSH Q15M PRN; Protocol PRN Reason: per Hypoglycemia Standing Ord. Divalproex Sodium (Divalproex Sodium 250 Mg Tablet.Dr) 250 mg PO BID [facility] Docusate Sodium (Docusate Sodium 100 Mg Capsule) 100 mg PO DAILY PRN PRN Reason: Constipation Enoxaparin Sodium (Enoxaparin Sodium 150 Mg/Ml Syringe) 150 mg SUBCUT Q12H [facility] Last Admin: 08/07/21 08:49 Dose: 150 mg Documented by: Fluoxetine HCl (Fluoxetine Hcl 20 Mg Capsule) 40 mg PO DAILY [facility] Folic Acid (Folic Acid 1 Mg Tablet) 1 mg PO DAILY [facility] Furosemide (Furosemide 20 Mg Tablet) 30 mg PO DAILY [facility]; Protocol Glucose (Glucose Gel 15 Gm Gel..Gram.) 15 gm PO Q15M PRN; Protocol PRN Reason: per Hypoglycemia Standing Ord. Lactated Ringer's (Lr) 1,000 mls @ 50 mls/hr IVCONT .Q20H [facility] Last Admin: 08/07/21 06:23 Dose: 50 mls/hr Documented by: Thiamine HCl 500 mg/ Sodium (Chloride) 105 mls @ 210 mls/hr IV TID [facility] Insulin Human Lispro (Insulin Lispro 100 Unit/Ml 3 Ml Vial) 0 unit SUBCUT QIDACHS [facility]; Protocol Last Admin: 08/07/21 08:55 Dose: Not Given Documented by: Metoprolol Tartrate (Metoprolol Tartrate 25 Mg Tablet) 25 mg PO BID [facility]; Protocol Omeprazole (Omeprazole 40 Mg Capsule.Dr) 40 mg PO DAILY@0630 [facility] Last Admin: 08/07/21 09:35 Dose: Not Given Documented by: Ondansetron HCl (Ondansetron Hcl 4 Mg/2 Ml Vial) 4 mg IVPUSH Q8H PRN PRN Reason: Nausea and Vomiting Pharmacy Consult (Consult Rx Perform Med Rec) 1 each MISCELLANE ONCE PRN PRN Reason: Consult order Phenobarbital (Phenobarbital 30 Mg Tablet) 60 mg PO BID [facility]; Protocol Stop: 08/09/21 09:01 Phenobarbital (Phenobarbital 30 Mg Tablet) 30 mg PO BID [facility]; Protocol Stop: 08/11/21 09:01 Phenobarbital (Phenobarbital 30 Mg Tablet) 30 mg PO DAILY [facility]; Protocol Stop: 08/13/21 09:01 Risperidone (Risperidone 0.5 Mg Tablet) 0.5 mg PO BID [facility] Sodium Chloride (0.9 % Sodium Chloride Flush 3 Ml Syringe) 3 ml IVFLUSH QSHIFT [facility] Last Admin: 08/07/21 09:33 Dose: 3 ml Documented by: Thiamine HCl (Thiamine Hcl 100 Mg Tablet) 100 mg PO DAILY [facility] Home Medications Medication Instructions Recorded Confirmed Last Taken Type metformin 850 mg tablet 850 mg PO DAILY 03/03/21 08/06/21 Unknown History Physical Exam Vital Signs: Vital Signs: Last Vital Signs Temp 98.1 F 08/06/21 22:51 Pulse 89 08/07/21 08:56 Resp 15 08/07/21 08:56 BP 154/9 H 08/07/21 08:56 Pulse Ox 97 08/07/21 08:56 BMI result Body Mass Index 43.6 EXAM: GENERAL: The patient is obese ++, tachypneic, somnolent VITAL SIGNS:see workflow HEENT: Nonicteric sclerae, PERRLA, EOMI. Oropharynx clear. Moist mucous membranes. Conjunctivae appear well perfused. No thyroid mass. CHEST: Chest wall is nontender. HEART: Regular rate and rhythm without murmurs. LUNGS: Clear to auscultation bilaterally. ABDOMEN: Soft, positive bowel sounds, nontender, no organomegaly.no flank tenderness SKIN: No rash, no excessive bruising, petechiae, or purpura. NEUROLOGIC: Cranial nerves II-XII intact without motor/sensory deficit. Resp: Effort & Inspection: labored Extrem: General: Yes normal to inspection Results Labs CBC & Chem 7: 08/07/21 03:42 08/07/21 03:42 Labs: Short CBC 08/06/21 08/07/21 Range/Units 20:27 03:42 WBC 11.3 H 10.1 (4.8-10.8) X10*3/uL Hgb 13.8 L 14.5 (14.0-18.0) g/dl Hct 44.3 46.5 (42.0-52.0) % Plt Count 155 L 153 L (160-400) X10*3/uL BMP 08/06/21 08/07/21 20:27 03:42 Sodium 137 139 Potassium 5.8 H D 4.5 D Chloride 96 98 Carbon Dioxide 35 H 34 H BUN 31 H 28 H Creatinine 1.52 H 1.25 Calcium 8.9 D 8.9 Cardiac Enzymes 08/06/21 Range/Units 20:27 Total Creatine Kinase 49 (38-174) U/L Liver Function 08/06/21 Range/Units 20:27 Total Bilirubin 0.6 (0.0-1.0) mg/dL Direct Bilirubin 0.3 (0.0-0.5) mg/dL AST 13 (5-37) U/L ALT 6 (0-40) U/L Alkaline Phosphatase 93 (39-117) U/L Albumin 3.8 (3.5-5.0) g/dL Urine 08/06/21 Range/Units 22:08 Urine Color YELLOW Urine Appearance CLEAR Urine pH 5.5 (5.0-8.0) Ur Specific [place] >= 1.030 H (1.005-1.025) Urine Protein 1+ H (NEG-TRACE) MG/DL Urine Glucose (UA) NEG (NEG) MG/DL Assessment and Plan (1) Acute respiratory failure with hypoxia: Status: Acute (2) Cirrhosis: Status: Acute Plan 1/ Presumed alcoholic cirrhosis with acute on chronic hypoxic and hypercapnic respiratory failure from combination of MJ, OHAS, ?aspiration and possible ther cardiac or neuro respiratory pathology. hard to determine if he has a component of hepatic encephalopathy but seems primarily tani due to his hypercapnia right now PLAN: 1/ Cont to monitor clinically if remains somnolent inspite of improvement in resp status then can use lactulose enemas, and consider neuro consult to r/o seizure d/o 2/ depending on clinical course may need ascitic tap. Procedures Date of Service Date of Service: 08/07/21
[2021-08-07 10:20] LABS: ABG Base Excess 11.3 mmol/L; ABG HCO3 39 mmol/L (22-26); ABG pCO2 64 mmHg (32-45); ABG pH 7.39 (7.35-7.45); ABG pO2 87 mmHg (83-108)
[2021-08-07] MEDS: Thiamine HCL 500 MG in 0.9 % Sodium Chloride 100 ML 210 MG IV ×3 (10:57→21:10)
[2021-08-07] MEDS: Albuterol/Iprat 2.5/0.5MG 3 ML AMPUL.NEB INHALE ×3 (11:19→20:07)
--- NOTE | 2021-08-07 11:24 | MHC.CM.PN ---
CM ATTEMPTED TO MEET WITH PT WHO WAS SLEEPING AND ON BIPAP. CM CALLED PTS HCP/BROTHER, RANDAL CHOI ([phone]) WHO PROVIDED THE FOLLOWING INFORMATION: PT LIVES WITH HIS AND IS INDEPENDENT WT CARE PT HAS A CPAP FOR DME AND NO HOME SERVICES PT SEES RANDAL [facility] AT [facility] IN [place] PT IS A BUT IS NOT VA CONNECTED PT IS NOT VACCINATED AGAINST COVID-19, HE REPORTEDLY ONLY RECEIVED ONE DOSE OF EITHER MODERNA OR PFIZER. PT DOES HAVE A HCP ON FILE. IMM DELIVERED, ORIGINAL WILL BE MAILED TO RANDAL AT [address] [facility] [id number]. CURRENT DC PLAN IS HOME WITH NO SERVICES FAMILY WILL TRANSPORT
[2021-08-07 11:42] LABS: ABG Refer to POC result
--- NOTE | 2021-08-07 11:58 | P.CONCC_ITS ---
History of Present Illness Data of Consult Service Date: 08/07/21 Requesting physician: Josie Tapia Primary Care Provider: SEAMUS MckoyP- HPI 61-year-old gentleman with underlying history of alcohol dependence with prior episodes alcohol withdrawal, Wernicke's encephalopathy, congestive heart wilver lure, obesity obstructive sleep apnea, tracheostomy with self reversal, diabetes, hypertension admitted on 08/06/2021 with dyspnea. On ER evaluation he was noted to be hypoxemic. His CT angiogram chest was negative for pulmonary emboli or lobar consolidation. His blood gas demonstrated compensated hypercapnia. He has been started on CPAP support, phenobarbital for possible alcohol withdrawal and admitted to general medical [facility]. In a.m. on 08/07/2021 patient was to be lethargic with poor arousal, except to painful stimuli. Blood gas was repeated in showed no evidence of CO2 narcosis. Level of care evaluation was requested. Review of Systems Review of Systems: Yes Unobtainable due to mental condition and Unobtainable due to mental status PMFSH Past Medical History Medical History Afib Alcohol dependency Anxiety Arthritis CHF (congestive heart failure) Depression Diabetes Fever of unknown origin Gout HTN (hypertension) Left atrial enlargement Seroma due to trauma Sleep apnea Wernicke encephalopathy Family History Family History Father Lung cancer Mother No problems noted. Maternal Aunt History of heart attack Sister No problems noted. Brother Cancer of kidney Brother No problems noted. Brother No problems noted. Brother No problems noted. Brother No problems noted. Brother No problems noted. Other Substance use disorder Surgical History Surgical History No pertinent past surgical history Social History Social History Household Members: Spouse Housing: House Do you presently have visiting nurse or other home services: No Alcohol intake: current Alcohol intake frequency: 0-2 drinks per day Patient Tobacco Use Status: Tobacco use Unknown Cigarette Packs Per Day: 1 Cigarettes Per Day: 20.0 e-Cigarette/Vaping Use: Never Used Second Hand Smoke Exposure: No Use of substances other than those prescribed or required for medical reasons: Unknown Advance Directives: No Advance Directives Information Provided: No service: Yes Current occupational status: unemployed Meds Allergies Allergy/AdvReac Type Severity Reaction Status Date / Time No Known Allergies Allergy Verified 07/13/21 16:54 [No Known Allergies*] Active Medications: Current Medications Acetaminophen (Acetaminophen 325 Mg Tablet) 650 mg PO Q6H PRN PRN Reason: Pain, Mild (Pain Scale 1-3) Albuterol Sulfate (Albuterol Sulfate 90 Mcg 8 Gm Inhaler) 2 puff INHALE Q4H PRN PRN Reason: for wheezing Albuterol/Ipratropium (Albuterol/Iprat 2.5/0.5mg 3 Ml Ampul.Neb) 3 ml INHALE RQ4H WHILE AWAKE [facility] Last Admin: 08/07/21 11:19 Dose: 3 ml Documented by: Allopurinol (Allopurinol 100 Mg Tablet) 100 mg PO DAILY [facility] Last Admin: 08/07/21 10:58 Dose: Not Given Documented by: Amlodipine Besylate (Amlodipine Besylate 5 Mg Tablet) 5 mg PO DAILY [facility]; Protocol Last Admin: 08/07/21 10:58 Dose: Not Given Documented by: Dextrose (Dextrose 50 % 25 Gm/50 Ml Syringe) 25 gm IVPUSH Q15M PRN; Protocol PRN Reason: per Hypoglycemia Standing Ord. Divalproex Sodium (Divalproex Sodium 250 Mg Tablet.Dr) 250 mg PO BID [facility] Last Admin: 08/07/21 10:58 Dose: Not Given Documented by: Docusate Sodium (Docusate Sodium 100 Mg Capsule) 100 mg PO DAILY PRN PRN Reason: Constipation Enoxaparin Sodium (Enoxaparin Sodium 150 Mg/Ml Syringe) 150 mg SUBCUT Q12H [facility] Last Admin: 08/07/21 08:49 Dose: 150 mg Documented by: Fluoxetine HCl (Fluoxetine Hcl 20 Mg Capsule) 40 mg PO DAILY [facility] Last Admin: 08/07/21 10:58 Dose: Not Given Documented by: Folic Acid (Folic Acid 1 Mg Tablet) 1 mg PO DAILY [facility] Last Admin: 08/07/21 10:58 Dose: Not Given Documented by: Furosemide (Furosemide 20 Mg Tablet) 30 mg PO DAILY [facility]; Protocol Last Admin: 08/07/21 10:58 Dose: Not Given Documented by: Glucose (Glucose Gel 15 Gm Gel..Gram.) 15 gm PO Q15M PRN; Protocol PRN Reason: per Hypoglycemia Standing Ord. Lactated Ringer's (Lr) 1,000 mls @ 50 mls/hr IVCONT .Q20H [facility] Last Admin: 08/07/21 06:23 Dose: 50 mls/hr Documented by: Thiamine HCl 500 mg/ Sodium (Chloride) 105 mls @ 210 mls/hr IV TID [facility] Last Admin: 08/07/21 10:57 Dose: 210 mls/hr Documented by: Insulin Human Lispro (Insulin Lispro 100 Unit/Ml 3 Ml Vial) 0 unit SUBCUT QIDACHS [facility]; Protocol Last Admin: 08/07/21 08:55 Dose: Not Given Documented by: Metoprolol Tartrate (Metoprolol Tartrate 25 Mg Tablet) 25 mg PO BID [facility]; Protocol Last Admin: 08/07/21 10:59 Dose: Not Given Documented by: Omeprazole (Omeprazole 40 Mg Capsule.Dr) 40 mg PO DAILY@0630 [facility] Last Admin: 08/07/21 09:35 Dose: Not Given Documented by: Ondansetron HCl (Ondansetron Hcl 4 Mg/2 Ml Vial) 4 mg IVPUSH Q8H PRN PRN Reason: Nausea and Vomiting Pharmacy Consult (Consult Rx Perform Med Rec) 1 each MISCELLANE ONCE PRN PRN Reason: Consult order Phenobarbital (Phenobarbital 30 Mg Tablet) 60 mg PO BID [facility]; Protocol Phenobarbital (Phenobarbital 30 Mg Tablet) 30 mg PO BID [facility]; Protocol Phenobarbital (Phenobarbital 30 Mg Tablet) 30 mg PO DAILY [facility]; Protocol Risperidone (Risperidone 0.5 Mg Tablet) 0.5 mg PO BID [facility] Last Admin: 08/07/21 10:59 Dose: Not Given Documented by: Sodium Chloride (0.9 % Sodium Chloride Flush 3 Ml Syringe) 3 ml IVFLUSH QSHIFT [facility] Last Admin: 08/07/21 09:33 Dose: 3 ml Documented by: Thiamine HCl (Thiamine Hcl 100 Mg Tablet) 100 mg PO DAILY [facility] Last Admin: 08/07/21 10:59 Dose: Not Given Documented by: Home Medications Medication Instructions Recorded Confirmed Last Taken Type metformin 850 mg tablet 850 mg PO DAILY 03/03/21 08/06/21 Unknown History Physical Exam Vital Signs: Vital Signs: Last Vital Signs Temp 98.1 F 08/06/21 22:51 Pulse 97 08/07/21 11:19 Resp 23 H 08/07/21 11:23 BP 147/84 H 08/07/21 10:59 Pulse Ox 97 08/07/21 10:59 BMI result Body Mass Index 43.6 Const: General: no acute distress and lethargic ( [place]) Nutritional Appearance: obese Orientation/consciousness: lethargic ( [place]) Eyes: Sclerae: sclerae normal EOM: EOMs intact bilaterally Neck: Neck: Yes no lymphadenopathy, Yes trachea midline and Yes supple Resp: Effort & Inspection: normal respiratory effort and no respiratory distress Auscultation: clear to auscultation bilaterally Cardio: Rate: regular rate Rhythm: regular rhythm Heart sounds: no gallops, no murmurs and no rubs GI: Palpation (GI): Soft to palpation and Other GI palpation findings present ( Nontender) Auscultation: normal bowel sounds Extrem: General: No clubbing, No cyanosis and Yes edema ( trace bilateral) Results Labs CBC & Chem 7: 08/07/21 03:42 08/07/21 03:42 Labs: Short CBC 08/06/21 08/07/21 Range/Units 20:27 03:42 WBC 11.3 H 10.1 (4.8-10.8) X10*3/uL Hgb 13.8 L 14.5 (14.0-18.0) g/dl Hct 44.3 46.5 (42.0-52.0) % Plt Count 155 L 153 L (160-400) X10*3/uL BMP 08/06/21 08/07/21 20:27 03:42 Sodium 137 139 Potassium 5.8 H D 4.5 D Chloride 96 98 Carbon Dioxide 35 H 34 H BUN 31 H 28 H Creatinine 1.52 H 1.25 Calcium 8.9 D 8.9 Cardiac Enzymes 08/06/21 Range/Units 20:27 Total Creatine Kinase 49 (38-174) U/L Liver Function 08/06/21 Range/Units 20:27 Total Bilirubin 0.6 (0.0-1.0) mg/dL Direct Bilirubin 0.3 (0.0-0.5) mg/dL AST 13 (5-37) U/L ALT 6 (0-40) U/L Alkaline Phosphatase 93 (39-117) U/L Albumin 3.8 (3.5-5.0) g/dL Urine 08/06/21 Range/Units 22:08 Urine Color YELLOW Urine Appearance CLEAR Urine pH 5.5 (5.0-8.0) Ur Specific [place] >= 1.030 H (1.005-1.025) Urine Protein 1+ H (NEG-TRACE) MG/DL Urine Glucose (UA) NEG (NEG) MG/DL Assessment and Plan (1) Acute alteration in mental status: Status: Acute (2) Acute respiratory failure with hypoxia: Status: Acute (3) Obstructive sleep apnea (adult) (pediatric): Status: Acute (4) Obesity (BMI 35.0-39.9 without comorbidity): Status: Acute (5) Diastolic CHF, acute on chronic: Status: Acute Plan Impression: Acute hypoxic respiratory failure with compensated hypercapnia. At this patient does not require BiPAP support. Likely etiology is acute on chronic congestive heart failure. His encephalopathy is not related to CO2 retention and is likely from over-sedation with alcohol withdrawal protocol and continuation of home regimen of psychiatric medications. Recommendations: Consider holding home regimen of psychiatric medications and holding or adjusting down an abrupt will protocol for underlying possible alcohol withdrawal. Consider switching p.o. furosemide to IV furosemide and acetazolamide. Consider switching CPAP to high-flow nasal cannula support. At this time patient does not require intensive care level of monitoring, please notify for re-evaluation if patient's condition changes.
--- NOTE | 2021-08-07 12:37 | PM.CNCAR ---
History of Present Illness History of Present Illness Date of Service: 08/07/21 Chief complaint: Hypoxic hypercapnic resp failure Narrative: 61-year-old patient with background history of alcoholism, atrial fibrillation. , diastolic heart failure, encephalopathy, and cirrhosis of liver who is presenting for reported history of shortness of breath. Patient was seen on BiPAP and was unarousable. It appears he was given phenobarbital for alcohol withdrawal. He was responding to painful stimuli but was quickly going back to sleep. History was very limited. FORMERLY [facility], 1928–1983 Past Medical History Medical History Afib Alcohol dependency Anxiety Arthritis CHF (congestive heart failure) Depression Diabetes Fever of unknown origin Gout HTN (hypertension) Left atrial enlargement Seroma due to trauma Sleep apnea Wernicke encephalopathy Family History Family History Father Lung cancer Mother No problems noted. Maternal Aunt History of heart attack Sister No problems noted. Brother Cancer of kidney Brother No problems noted. Brother No problems noted. Brother No problems noted. Brother No problems noted. Brother No problems noted. Other Substance use disorder Surgical History Surgical History No pertinent past surgical history Social History Social History Household Members: Spouse Housing: House Do you presently have visiting nurse or other home services: No Alcohol intake: current Alcohol intake frequency: 0-2 drinks per day Patient Tobacco Use Status: Tobacco use Unknown Cigarette Packs Per Day: 1 Cigarettes Per Day: 20.0 e-Cigarette/Vaping Use: Never Used Second Hand Smoke Exposure: No Use of substances other than those prescribed or required for medical reasons: Unknown Advance Directives: No Advance Directives Information Provided: No service: Yes Current occupational status: unemployed Meds Allergies Allergy/AdvReac Type Severity Reaction Status Date / Time No Known Allergies Allergy Verified 07/13/21 16:54 [No Known Allergies*] Active Medications: Current Medications Acetaminophen (Acetaminophen 325 Mg Tablet) 650 mg PO Q6H PRN PRN Reason: Pain, Mild (Pain Scale 1-3) Albuterol Sulfate (Albuterol Sulfate 90 Mcg 8 Gm Inhaler) 2 puff INHALE Q4H PRN PRN Reason: for wheezing Albuterol/Ipratropium (Albuterol/Iprat 2.5/0.5mg 3 Ml Ampul.Neb) 3 ml INHALE RQ4H WHILE AWAKE [facility] Last Admin: 08/07/21 11:19 Dose: 3 ml Documented by: Allopurinol (Allopurinol 100 Mg Tablet) 100 mg PO DAILY [facility] Last Admin: 08/07/21 10:58 Dose: Not Given Documented by: Amlodipine Besylate (Amlodipine Besylate 5 Mg Tablet) 5 mg PO DAILY [facility]; Protocol Last Admin: 08/07/21 10:58 Dose: Not Given Documented by: Dextrose (Dextrose 50 % 25 Gm/50 Ml Syringe) 25 gm IVPUSH Q15M PRN; Protocol PRN Reason: per Hypoglycemia Standing Ord. Divalproex Sodium (Divalproex Sodium 250 Mg Tablet.Dr) 250 mg PO BID [facility] Last Admin: 08/07/21 10:58 Dose: Not Given Documented by: Docusate Sodium (Docusate Sodium 100 Mg Capsule) 100 mg PO DAILY PRN PRN Reason: Constipation Enoxaparin Sodium (Enoxaparin Sodium 150 Mg/Ml Syringe) 150 mg SUBCUT Q12H [facility] Last Admin: 08/07/21 08:49 Dose: 150 mg Documented by: Fluoxetine HCl (Fluoxetine Hcl 20 Mg Capsule) 40 mg PO DAILY [facility] Last Admin: 08/07/21 10:58 Dose: Not Given Documented by: Folic Acid (Folic Acid 1 Mg Tablet) 1 mg PO DAILY [facility] Last Admin: 08/07/21 10:58 Dose: Not Given Documented by: Furosemide (Furosemide 20 Mg Tablet) 30 mg PO DAILY [facility]; Protocol Last Admin: 08/07/21 10:58 Dose: Not Given Documented by: Glucose (Glucose Gel 15 Gm Gel..Gram.) 15 gm PO Q15M PRN; Protocol PRN Reason: per Hypoglycemia Standing Ord. Lactated Ringer's (Lr) 1,000 mls @ 50 mls/hr IVCONT .Q20H [facility] Last Admin: 08/07/21 06:23 Dose: 50 mls/hr Documented by: Thiamine HCl 500 mg/ Sodium (Chloride) 105 mls @ 210 mls/hr IV TID [facility] Last Admin: 08/07/21 10:57 Dose: 210 mls/hr Documented by: Insulin Human Lispro (Insulin Lispro 100 Unit/Ml 3 Ml Vial) 0 unit SUBCUT QIDACHS [facility]; Protocol Last Admin: 08/07/21 08:55 Dose: Not Given Documented by: Metoprolol Tartrate (Metoprolol Tartrate 25 Mg Tablet) 25 mg PO BID [facility]; Protocol Last Admin: 08/07/21 10:59 Dose: Not Given Documented by: Omeprazole (Omeprazole 40 Mg Capsule.Dr) 40 mg PO DAILY@0630 [facility] Last Admin: 08/07/21 09:35 Dose: Not Given Documented by: Ondansetron HCl (Ondansetron Hcl 4 Mg/2 Ml Vial) 4 mg IVPUSH Q8H PRN PRN Reason: Nausea and Vomiting Pharmacy Consult (Consult Rx Perform Med Rec) 1 each MISCELLANE ONCE PRN PRN Reason: Consult order Phenobarbital (Phenobarbital 30 Mg Tablet) 60 mg PO BID [facility]; Protocol Phenobarbital (Phenobarbital 30 Mg Tablet) 30 mg PO BID [facility]; Protocol Phenobarbital (Phenobarbital 30 Mg Tablet) 30 mg PO DAILY [facility]; Protocol Risperidone (Risperidone 0.5 Mg Tablet) 0.5 mg PO BID [facility] Last Admin: 08/07/21 10:59 Dose: Not Given Documented by: Sodium Chloride (0.9 % Sodium Chloride Flush 3 Ml Syringe) 3 ml IVFLUSH QSHIFT [facility] Last Admin: 08/07/21 09:33 Dose: 3 ml Documented by: Thiamine HCl (Thiamine Hcl 100 Mg Tablet) 100 mg PO DAILY [facility] Last Admin: 08/07/21 10:59 Dose: Not Given Documented by: Home Medications Medication Instructions Recorded Confirmed Last Taken Type metformin 850 mg tablet 850 mg PO DAILY 03/03/21 08/06/21 Unknown History Physical Exam Vital Signs: Vital Signs: Last Vital Signs Temp 98.1 F 08/06/21 22:51 Pulse 97 08/07/21 11:19 Resp 23 H 08/07/21 11:23 BP 147/84 H 08/07/21 10:59 Pulse Ox 97 08/07/21 10:59 BMI result Body Mass Index 43.6 GENERAL APPEARANCE: in no acute distress, pleasant. NECK: no carotid bruit, no jugular venous distention. SKIN: no suspicious lesions, warm and dry. HEART: no murmurs, regular rate and rhythm. LUNGS: clear to auscultation bilaterally. ABDOMEN: soft, nontender. EXTREMITIES: no edema. PERIPHERAL PULSES: equal. NEUROLOGIC: No gross deficits, AAO X 3 Objective Labs and Meds Result diagrams: 08/07/21 03:42 08/07/21 03:42 Lab results: Laboratory Results - last 24 hr 08/06/21 08/06/21 08/06/21 19:27 20:27 20:27 WBC 11.3 H RBC 4.62 Hgb 13.8 L Hct 44.3 MCV 95.9 MCH 29.9 MCHC 31.2 RDW 14.9 Plt Count 155 L MPV 10.6 Immature Gran % (Auto) 0.4 Neut % (Auto) 71.3 Lymph % (Auto) 16.4 L [place] % (Auto) 11.0 Eos % (Auto) 0.4 Baso % (Auto) 0.5 Lymph # (Auto) 1.9 [place] # (Auto) 1.2 Eos # (Auto) 0.0 Baso # (Auto) 0.1 Abs Immat Gran (auto) 0.05 H Absolute Neuts (auto) 8.0 Absolute Nucleated RBC 0.020 H Nucleated RBC % (auto) 0.2 PT INR O2 Saturation 97.0 ABG pH at Pt Temp 7.33 L ABG pCO2 at Pt Temp 72 H* ABG pO2 at Pt Temp 105 ABG HCO3 38 H ABG Base Excess (Actual) 9.3 VBG pH VBG pCO2 VBG pO2 VBG HCO3 VBG O2 Saturation VBG Base Excess Sodium 137 Potassium 5.8 H D Chloride 96 Carbon Dioxide 35 H Anion Gap 12 BUN 31 H Creatinine 1.52 H Estim Creat Clear Calc 78.9 Estimated GFR 47 POC Glucose Random Glucose 135 H Lactic Acid Calcium 8.9 D Magnesium 1.8 Total Bilirubin 0.6 Direct Bilirubin 0.3 AST 13 ALT 6 Alkaline Phosphatase 93 Ammonia Total Creatine Kinase 49 Troponin I High Sens B-Natriuretic Peptide Total Protein 7.5 Albumin 3.8 Urine Color Urine Appearance Urine pH Ur Specific [place] Urine Protein Urine Glucose (UA) Urine Ketones Urine Blood Urine Nitrite Ur Leukocyte Esterase Urine RBC Urine WBC Ur Squamous Epith Cells Urine Bacteria Valproic Acid 11.1 L Ethyl Alcohol COVID-19 ([facility]INDEN) COVID-19 Clin Com 08/06/21 08/06/21 08/06/21 20:27 20:27 20:27 WBC RBC Hgb Hct MCV MCH MCHC RDW Plt Count MPV Immature Gran % (Auto) Neut % (Auto) Lymph % (Auto) [place] % (Auto) Eos % (Auto) Baso % (Auto) Lymph # (Auto) [place] # (Auto) Eos # (Auto) Baso # (Auto) Abs Immat Gran (auto) Absolute Neuts (auto) Absolute Nucleated RBC Nucleated RBC % (auto) PT INR O2 Saturation ABG pH at Pt Temp ABG pCO2 at Pt Temp ABG pO2 at Pt Temp ABG HCO3 ABG Base Excess (Actual) VBG pH VBG pCO2 VBG pO2 VBG HCO3 VBG O2 Saturation VBG Base Excess Sodium Potassium Chloride Carbon Dioxide Anion Gap BUN Creatinine Estim Creat Clear Calc Estimated GFR POC Glucose Random Glucose Lactic Acid 1.4 Calcium Magnesium Total Bilirubin Direct Bilirubin AST ALT Alkaline Phosphatase Ammonia Total Creatine Kinase Troponin I High Sens 20.1 B-Natriuretic Peptide 500 H Total Protein Albumin Urine Color Urine Appearance Urine pH Ur Specific [place] Urine Protein Urine Glucose (UA) Urine Ketones Urine Blood Urine Nitrite Ur Leukocyte Esterase Urine RBC Urine WBC Ur Squamous Epith Cells Urine Bacteria Valproic Acid Ethyl Alcohol < 10 COVID-19 ([facility]INDEN) COVID-19 Clin Com 08/06/21 08/06/21 08/06/21 20:27 20:27 22:08 WBC RBC Hgb Hct MCV MCH MCHC RDW Plt Count MPV Immature Gran % (Auto) Neut % (Auto) Lymph % (Auto) [place] % (Auto) Eos % (Auto) Baso % (Auto) Lymph # (Auto) [place] # (Auto) Eos # (Auto) Baso # (Auto) Abs Immat Gran (auto) Absolute Neuts (auto) Absolute Nucleated RBC Nucleated RBC % (auto) PT 15.7 H INR 1.4 H O2 Saturation ABG pH at Pt Temp ABG pCO2 at Pt Temp ABG pO2 at Pt Temp ABG HCO3 ABG Base Excess (Actual) VBG pH VBG pCO2 VBG pO2 VBG HCO3 VBG O2 Saturation VBG Base Excess Sodium Potassium Chloride Carbon Dioxide Anion Gap BUN Creatinine Estim Creat Clear Calc Estimated GFR POC Glucose Random Glucose Lactic Acid Calcium Magnesium Total Bilirubin Direct Bilirubin AST ALT Alkaline Phosphatase Ammonia 28 Total Creatine Kinase Troponin I High Sens B-Natriuretic Peptide Total Protein Albumin Urine Color Urine Appearance Urine pH Ur Specific [place] Urine Protein Urine Glucose (UA) Urine Ketones Urine Blood Urine Nitrite Ur Leukocyte Esterase Urine RBC Urine WBC Ur Squamous Epith Cells Urine Bacteria Valproic Acid Ethyl Alcohol COVID-19 ([facility]INDEN) Negative COVID-19 [employer] Com See Note 08/06/21 08/06/21 08/07/21 22:08 23:13 01:52 WBC RBC Hgb Hct MCV MCH MCHC RDW Plt Count MPV Immature Gran % (Auto) Neut % (Auto) Lymph % (Auto) [place] % (Auto) Eos % (Auto) Baso % (Auto) Lymph # (Auto) [place] # (Auto) Eos # (Auto) Baso # (Auto) Abs Immat Gran (auto) Absolute Neuts (auto) Absolute Nucleated RBC Nucleated RBC % (auto) PT INR O2 Saturation 95.0 ABG pH at Pt Temp 7.35 ABG pCO2 at Pt Temp 67 H* ABG pO2 at Pt Temp 79 L ABG HCO3 37 H ABG Base Excess (Actual) 9.2 VBG pH 7.41 VBG pCO2 53 VBG pO2 153 VBG HCO3 34 H VBG O2 Saturation 100.0 VBG Base Excess 8.3 Sodium Potassium Chloride Carbon Dioxide Anion Gap BUN Creatinine Estim Creat Clear Calc Estimated GFR POC Glucose Random Glucose Lactic Acid Calcium Magnesium Total Bilirubin Direct Bilirubin AST ALT Alkaline Phosphatase Ammonia Total Creatine Kinase Troponin I High Sens B-Natriuretic Peptide Total Protein Albumin Urine Color YELLOW Urine Appearance CLEAR Urine pH 5.5 Ur Specific [place] >= 1.030 H Urine Protein 1+ H Urine Glucose (UA) NEG Urine Ketones NEG Urine Blood TRACE Urine Nitrite NEG Ur Leukocyte Esterase NEG Urine RBC 1-4 Urine WBC 1-4 Ur Squamous Epith Cells NONE Urine Bacteria TRACE Valproic Acid Ethyl Alcohol COVID-19 ([facility]INDEN) COVID-19 [employer] Com 08/07/21 08/07/21 08/07/21 03:42 03:42 03:43 WBC 10.1 RBC 4.91 Hgb 14.5 Hct 46.5 MCV 94.7 MCH 29.5 MCHC 31.2 RDW 15.0 Plt Count 153 L MPV 10.7 Immature Gran % (Auto) 0.3 Neut % (Auto) 66.7 Lymph % (Auto) 19.7 L [place] % (Auto) 11.7 H Eos % (Auto) 1.0 Baso % (Auto) 0.6 Lymph # (Auto) 2.0 [place] # (Auto) 1.2 Eos # (Auto) 0.1 Baso # (Auto) 0.1 Abs Immat Gran (auto) 0.03 Absolute Neuts (auto) 6.8 Absolute Nucleated RBC 0.000 Nucleated RBC % (auto) 0.0 PT INR O2 Saturation ABG pH at Pt Temp ABG pCO2 at Pt Temp ABG pO2 at Pt Temp ABG HCO3 ABG Base Excess (Actual) VBG pH 7.36 VBG pCO2 68 VBG pO2 61 VBG HCO3 38 H VBG O2 Saturation 87.0 VBG Base Excess 9.9 Sodium 139 Potassium 4.5 D Chloride 98 Carbon Dioxide 34 H Anion Gap 12 BUN 28 H Creatinine 1.25 Estim Creat Clear Calc 95.9 Estimated GFR 59 POC Glucose Random Glucose 125 H Lactic Acid Calcium 8.9 Magnesium Total Bilirubin Direct Bilirubin AST ALT Alkaline Phosphatase Ammonia Total Creatine Kinase Troponin I High Sens B-Natriuretic Peptide Total Protein Albumin Urine Color Urine Appearance Urine pH Ur Specific [place] Urine Protein Urine Glucose (UA) Urine Ketones Urine Blood Urine Nitrite Ur Leukocyte Esterase Urine RBC Urine WBC Ur Squamous Epith Cells Urine Bacteria Valproic Acid Ethyl Alcohol COVID-19 ([facility]INDEN) COVID-19 Clin Com 08/07/21 08/07/21 08:02 10:12 WBC RBC Hgb Hct MCV MCH MCHC RDW Plt Count MPV Immature Gran % (Auto) Neut % (Auto) Lymph % (Auto) [place] % (Auto) Eos % (Auto) Baso % (Auto) Lymph # (Auto) [place] # (Auto) Eos # (Auto) Baso # (Auto) Abs Immat Gran (auto) Absolute Neuts (auto) Absolute Nucleated RBC Nucleated RBC % (auto) PT INR O2 Saturation 96.0 ABG pH at Pt Temp 7.39 ABG pCO2 at Pt Temp 64 H* ABG pO2 at Pt Temp 87 ABG HCO3 39 H ABG Base Excess (Actual) 11.3 VBG pH VBG pCO2 VBG pO2 VBG HCO3 VBG O2 Saturation VBG Base Excess Sodium Potassium Chloride Carbon Dioxide Anion Gap BUN Creatinine Estim Creat Clear Calc Estimated GFR POC Glucose 111 Random Glucose Lactic Acid Calcium Magnesium Total Bilirubin Direct Bilirubin AST ALT Alkaline Phosphatase Ammonia Total Creatine Kinase Troponin I High Sens B-Natriuretic Peptide Total Protein Albumin Urine Color Urine Appearance Urine pH Ur Specific [place] Urine Protein Urine Glucose (UA) Urine Ketones Urine Blood Urine Nitrite Ur Leukocyte Esterase Urine RBC Urine WBC Ur Squamous Epith Cells Urine Bacteria Valproic Acid Ethyl Alcohol COVID-19 ([facility]INDEN) COVID-19 Clin Com Imaging Radiologist's impression: Impressions Abdomen/Pelvis CT 08/06/21 21:27 IMPRESSION: 1. No evidence of an acute traumatic injury in the chest abdomen or pelvis. 2. No significant hematomas are seen in the chest abdomen or pelvis secondary to the patient's anticoagulation. 3. Incidental note made of slight increase in size of small left effusion and new small right effusion, old right-sided rib fractures, mesenteric panniculitis unchanged, cirrhotic liver with ascites and other findings described above. Cervical Spine CT 08/06/21 21:27 IMPRESSION: 1. No acute intracranial pathology. 2. No CT evidence of acute cervical spine fracture or traumatic subluxation Chest CT 08/06/21 21:27 IMPRESSION: 1. No evidence of an acute traumatic injury in the chest abdomen or pelvis. 2. No significant hematomas are seen in the chest abdomen or pelvis secondary to the patient's anticoagulation. 3. Incidental note made of slight increase in size of small left effusion and new small right effusion, old right-sided rib fractures, mesenteric panniculitis unchanged, cirrhotic liver with ascites and other findings described above. Head CT 08/06/21 21:27 IMPRESSION: 1. No acute intracranial pathology. 2. No CT evidence of acute cervical spine fracture or traumatic subluxation Assessment and Plan (1) Acute respiratory failure with hypoxia: Status: Acute Plan 61-year-old gentleman with background of cirrhosis of liver, alcoholism, obesity and diastolic heart failure who is presenting for shortness of breath. He was put on CPAP and for alcohol withdrawal was given phenobarbital. He is sedated and unarousable. Overall whole body overloaded. Agree with diuretics. Underlying cause for his confusion can be medications. Other possibility is that he has hepatic encephalopathy with his background of cirrhosis of liver and alcoholism. Ammonia level can be normal with encephalopathy. Please avoid hypokalemia. We will follow along with you. Thank you for allowing me to participate in the care of your patient. Please feel free to contact me if you have any questions. Procedures Date of Service Date of Service: 08/07/21
[2021-08-07 12:55] LABS: Glucose, Whole Blood 104 mg/dL (60-115)
--- NOTE | 2021-08-07 15:00 | P.CNNE_ITS ---
History of Present Illness Data of Consult Service Date: 08/07/21 Primary Care Provider: Ortiz Deluca, [facility]- HPI Reason for consult: altered mental status This is a 61-year-old man with history of AFib, alcohol dependency, alcohol withdrawal, anxiety, CHF, depression, diabetes, hypertension, sleep apnea, We rnicke is encephalopathy, who presents to the hospital after being found short of breath at home.? History is obtained mostly from ED physicians. There is a Question of a fall. He has history of severe alcohol withdrawal and cardiac arrest in 2019. On arrival of EMS patient was found hypoxic in the 80s.? He has also been drinking, patient reports that his last drink was yesterday, unclear if patient had any withdrawal seizures Review of Systems Review of Systems: Positive generalized malaise Yes all other systems are reviewed and are negative, Unobtainable due to mental condition and Unobtainable due to mental status PMFSH Past Medical History Medical History Afib Alcohol dependency Anxiety Arthritis CHF (congestive heart failure) Depression Diabetes Fever of unknown origin Gout HTN (hypertension) Left atrial enlargement Seroma due to trauma Sleep apnea Wernicke encephalopathy Family History Family History Father Lung cancer Mother No problems noted. Maternal Aunt History of heart attack Sister No problems noted. Brother Cancer of kidney Brother No problems noted. Brother No problems noted. Brother No problems noted. Brother No problems noted. Brother No problems noted. Other Substance use disorder Surgical History Surgical History No pertinent past surgical history Social History Social History Household Members: Spouse Housing: House Do you presently have visiting nurse or other home services: No Alcohol intake: current Alcohol intake frequency: 0-2 drinks per day Patient Tobacco Use Status: Tobacco use Unknown Cigarette Packs Per Day: 1 Cigarettes Per Day: 20.0 e-Cigarette/Vaping Use: Never Used Second Hand Smoke Exposure: No Use of substances other than those prescribed or required for medical reasons: Unknown Advance Directives: No Advance Directives Information Provided: No service: Yes Current occupational status: unemployed Meds Allergies Allergy/AdvReac Type Severity Reaction Status Date / Time No Known Allergies Allergy Verified 07/13/21 16:54 [No Known Allergies*] Active Medications: Current Medications Acetaminophen (Acetaminophen 325 Mg Tablet) 650 mg PO Q6H PRN PRN Reason: Pain, Mild (Pain Scale 1-3) Albuterol Sulfate (Albuterol Sulfate 90 Mcg 8 Gm Inhaler) 2 puff INHALE Q4H PRN PRN Reason: for wheezing Albuterol/Ipratropium (Albuterol/Iprat 2.5/0.5mg 3 Ml Ampul.Neb) 3 ml INHALE RQ4H WHILE AWAKE [facility] Last Admin: 08/07/21 11:19 Dose: 3 ml Documented by: Allopurinol (Allopurinol 100 Mg Tablet) 100 mg PO DAILY [facility] Last Admin: 08/07/21 10:58 Dose: Not Given Documented by: Amlodipine Besylate (Amlodipine Besylate 5 Mg Tablet) 5 mg PO DAILY JESSICA; Pr otocol Last Admin: 08/07/21 10:58 Dose: Not Given Documented by: Dextrose (Dextrose 50 % 25 Gm/50 Ml Syringe) 25 gm IVPUSH Q15M PRN; Protocol PRN Reason: per Hypoglycemia Standing Ord. Divalproex Sodium (Divalproex Sodium 250 Mg Tablet.) 250 mg PO BID [facility] Last Admin: 08/07/21 10:58 Dose: Not Given Documented by: Docusate Sodium (Docusate Sodium 100 Mg Capsule) 100 mg PO DAILY PRN PRN Reason: Constipation Enoxaparin Sodium (Enoxaparin Sodium 150 Mg/Ml Syringe) 150 mg SUBCUT Q12H [facility] Last Admin: 08/07/21 08:49 Dose: 150 mg Documented by: Fluoxetine HCl (Fluoxetine Hcl 20 Mg Capsule) 40 mg PO DAILY [facility] Last Admin: 08/07/21 10:58 Dose: Not Given Documented by: Folic Acid (Folic Acid 1 Mg Tablet) 1 mg PO DAILY [facility] Last Admin: 08/07/21 10:58 Dose: Not Given Documented by: Furosemide (Furosemide 40 Mg/4 Ml Vial) 40 mg IVPUSH Q12H JESSICA; Protocol Glucose (Glucose Gel 15 Gm Gel..Gram.) 15 gm PO Q15M PRN; Protocol PRN Reason: per Hypoglycemia Standing Ord. Thiamine HCl 500 mg/ Sodium (Chloride) 105 mls @ 210 mls/hr IV TID [facility] Last Admin: 08/07/21 10:57 Dose: 210 mls/hr Documented by: Insulin Human Lispro (Insulin Lispro 100 Unit/Ml 3 Ml Vial) 0 unit SUBCUT QIDACHS [facility]; Protocol Last Admin: 08/07/21 12:55 Dose: Not Given Documented by: Metoprolol Tartrate (Metoprolol Tartrate 25 Mg Tablet) 25 mg PO BID [facility]; Protocol Last Admin: 08/07/21 10:59 Dose: Not Given Documented by: Omeprazole (Omeprazole 40 Mg Capsule.Dr) 40 mg PO DAILY@0630 [facility] Last Admin: 08/07/21 09:35 Dose: Not Given Documented by: Ondansetron HCl (Ondansetron Hcl 4 Mg/2 Ml Vial) 4 mg IVPUSH Q8H PRN PRN Reason: Nausea and Vomiting Pharmacy Consult (Consult Rx Perform Med Rec) 1 each MISCELLANE ONCE PRN PRN Reason: Consult order Phenobarbital (Phenobarbital 30 Mg Tablet) 60 mg PO BID [facility]; Protocol Phenobarbital (Phenobarbital 30 Mg Tablet) 30 mg PO BID [facility]; Protocol Phenobarbital (Phenobarbital 30 Mg Tablet) 30 mg PO DAILY [facility]; Protocol Risperidone (Risperidone 0.5 Mg Tablet) 0.5 mg PO BID [facility] Last Admin: 08/07/21 10:59 Dose: Not Given Documented by: Sodium Chloride (0.9 % Sodium Chloride Flush 3 Ml Syringe) 3 ml IVFLUSH QSHIFT [facility] Last Admin: 08/07/21 09:33 Dose: 3 ml Documented by: Thiamine HCl (Thiamine Hcl 100 Mg Tablet) 100 mg PO DAILY [facility] Last Admin: 08/07/21 10:59 Dose: Not Given Documented by: Home Medications Medication Instructions Recorded Confirmed Last Taken Type metformin 850 mg tablet 850 mg PO DAILY 03/03/21 08/06/21 Unknown History Physical Exam Vital Signs: Vital Signs: Last Vital Signs Temp 98.4 F 08/07/21 14:08 Pulse 89 08/07/21 14:08 Resp 18 08/07/21 14:08 BP 143/83 H 08/07/21 14:08 Pulse Ox 96 08/07/21 14:08 BMI result Body Mass Index 43.6 Const: Other: oriented to self and place but very tremulous General: no acute distress and lethargic ( Arousable) Nutritional Appearance: obese Orientation/consciousness: lethargic ( Arousable) Eyes: General: appearance normal, both eyes and all related structures Sclerae: sclerae normal Pupils: Equal, round and reactive pupils present EOM: EOMs intact bilaterally Neck: Neck: Yes no lymphadenopathy, Yes trachea midline and Yes supple Resp: Other: slighly tachypneic Effort & Inspection: normal respiratory effort and no respiratory distress Auscultation: clear to auscultation bilaterally Cardio: Rate: regular rate Rhythm: regular rhythm Heart sounds: no gallops, no murmurs and no rubs GI: Palpation (GI): Soft to palpation and Other GI palpation findings present ( Nontender) Auscultation: normal bowel sounds Skin: General skin exam: no rashes or lesions noted Neuro: Other: Non focal exam. somewhat confused, tremulous with asterixis. Cranial nerves: Yes Equal, round and reactive pupils present Extrem: General: Yes normal to inspection, Yes no pedal edema, No clubbing, No cyanosis and Yes edema ( trace bilateral) Results Labs CBC & Chem 7: 08/07/21 03:42 08/07/21 03:42 Labs: Short CBC 08/06/21 08/07/21 Range/Units 20:27 03:42 WBC 11.3 H 10.1 (4.8-10.8) X10*3/uL Hgb 13.8 L 14.5 (14.0-18.0) g/dl Hct 44.3 46.5 (42.0-52.0) % Plt Count 155 L 153 L (160-400) X10*3/uL BMP 08/06/21 08/07/21 20:27 03:42 Sodium 137 139 Potassium 5.8 H D 4.5 D Chloride 96 98 Carbon Dioxide 35 H 34 H BUN 31 H 28 H Creatinine 1.52 H 1.25 Calcium 8.9 D 8.9 Cardiac Enzymes 08/06/21 Range/Units 20:27 Total Creatine Kinase 49 (38-174) U/L Liver Function 08/06/21 Range/Units 20:27 Total Bilirubin 0.6 (0.0-1.0) mg/dL Direct Bilirubin 0.3 (0.0-0.5) mg/dL AST 13 (5-37) U/L ALT 6 (0-40) U/L Alkaline Phosphatase 93 (39-117) U/L Albumin 3.8 (3.5-5.0) g/dL Urine 08/06/21 Range/Units 22:08 Urine Color YELLOW Urine Appearance CLEAR Urine pH 5.5 (5.0-8.0) Ur Specific [place] >= 1.030 H (1.005-1.025) Urine Protein 1+ H (NEG-TRACE) MG/DL Urine Glucose (UA) NEG (NEG) MG/DL Assessment and Plan (1) Acute alteration in mental status: Status: Acute Multifactorial metabolic encephalopathy : probably hypoxia and hypercapnia. R/O alcohol withdrawal. Possible post ictal from alcohol withdrawal Sz. Recommendations: Maintain adequate oxygenation with BiPAP and monitor ABGs. EEG on Tuesday. Management of possible alcohol withdrawal. Would not start any seizure medications. No other obvious metabolic abnormalities. (2) Acute respiratory failure with hypoxia: Status: Acute (3) Obstructive sleep apnea (adult) (pediatric): Status: Acute (4) Obesity (BMI 35.0-39.9 without comorbidity): Status: Acute (5) Diastolic CHF, acute on chronic: Status: Acute Plan Impression: Acute hypoxic respiratory failure with compensated hypercapnia. At this patient does not require BiPAP support. Likely etiology is acute on chronic congestive heart failure. His encephalopathy is not related to CO2 retention and is likely from over-sedation with alcohol withdrawal protocol and continuation of home regimen of psychiatric medications. Recommendations: Consider holding home regimen of psychiatric medications and holding or adjusting down an abrupt will protocol for underlying possible alcohol withdrawal. Consider switching p.o. furosemide to IV furosemide and acetazolamide. Consider switching CPAP to high-flow nasal cannula support. At this time patient does not require intensive care level of monitoring, please notify for re-evaluation if patient's condition changes. Procedures Date of Service Date of Service: 08/07/21
--- NOTE | 2021-08-07 15:15 | HO.PM.IMPN ---
Subjective Subjective Date of Service: 08/08/21 Interval History: Toxic metabolic encephalopathy, alcohol withdrawal,acute on chronic congestive heart failure. Review of Systems mental status oliver seems improving, denies any chest pain, shortness of breath seems to be improving slowly denies any abdominal pain or nausea or vomiting Physical Exam Vital Signs: Vital Signs: Last Vital Signs Temp 98.4 F 08/07/21 14:08 Pulse 89 08/07/21 14:08 Resp 18 08/07/21 14:08 BP 143/83 H 08/07/21 14:08 Pulse Ox 96 08/07/21 14:08 BMI result Body Mass Index 43.6 Appearance:aox3 , follows simple commands ? Eyes: Pupils equal, round and reactive to light.? Sclera nonicteric.? ENT: Pharynx normal.? Moist mucous membranes. cvs: rrr, [id number] , no murmur res: clear to auscultation ,no rhonchii or wheezing abd: no rebound or guarding ,nt, bs present, has probable ascitis . ext pulses present , no cyanosis . neuro: , nonfocal. Objective Data Active Medications Acetaminophen (Acetaminophen 325 Mg Tablet) 650 mg PO Q6H PRN PRN Reason: Pain, Mild (Pain Scale 1-3) Albuterol Sulfate (Albuterol Sulfate 90 Mcg 8 Gm Inhaler) 2 puff INHALE Q4H PRN PRN Reason: for wheezing Albuterol/Ipratropium (Albuterol/Iprat 2.5/0.5mg 3 Ml Ampul.Neb) 3 ml INHALE RQ4H WHILE AWAKE [facility] Last Admin: 08/07/21 11:19 Dose: 3 ml Documented by: FLAVIO Allopurinol (Allopurinol 100 Mg Tablet) 100 mg PO DAILY [facility] Last Admin: 08/07/21 10:58 Dose: Not Given Documented by: MARIAH Non-Admin Reason: See Note Amlodipine Besylate (Amlodipine Besylate 5 Mg Tablet) 5 mg PO DAILY [facility]; Protocol Last Admin: 08/07/21 10:58 Dose: Not Given Documented by: MARIAH Non-Admin Reason: See Note Dextrose (Dextrose 50 % 25 Gm/50 Ml Syringe) 25 gm IVPUSH Q15M PRN; Protocol PRN Reason: per Hypoglycemia Standing Ord. Divalproex Sodium (Divalproex Sodium 250 Mg Tablet.) 250 mg PO BID [facility] Last Admin: 08/07/21 10:58 Dose: Not Given Documented by: MARIAH Non-Admin Reason: See Note Docusate Sodium (Docusate Sodium 100 Mg Capsule) 100 mg PO DAILY PRN PRN Reason: Constipation Enoxaparin Sodium (Enoxaparin Sodium 150 Mg/Ml Syringe) 150 mg SUBCUT Q12H [facility] Last Admin: 08/07/21 08:49 Dose: 150 mg Documented by: MARIAH Fluoxetine HCl (Fluoxetine Hcl 20 Mg Capsule) 40 mg PO DAILY [facility] Last Admin: 08/07/21 10:58 Dose: Not Given Documented by: MARIAH Non-Admin Reason: See Note Folic Acid (Folic Acid 1 Mg Tablet) 1 mg PO DAILY [facility] Last Admin: 08/07/21 10:58 Dose: Not Given Documented by: MARIAH Non-Admin Reason: See Note Furosemide (Furosemide 40 Mg/4 Ml Vial) 40 mg IVPUSH Q12H [facility]; Protocol Glucose (Glucose Gel 15 Gm Gel..Gram.) 15 gm PO Q15M PRN; Protocol PRN Reason: per Hypoglycemia Standing Ord. Thiamine HCl 500 mg/ Sodium (Chloride) 105 mls @ 210 mls/hr IV TID [facility] Last Admin: 08/07/21 10:57 Dose: 210 mls/hr Documented by: MARIAH Insulin Human Lispro (Insulin Lispro 100 Unit/Ml 3 Ml Vial) 0 unit SUBCUT QIDACHS [facility]; Protocol Last Admin: 08/07/21 12:55 Dose: Not Given Documented by: MARIAH Non-Admin Reason: See Note Metoprolol Tartrate (Metoprolol Tartrate 25 Mg Tablet) 25 mg PO BID [facility]; Protocol Last Admin: 08/07/21 10:59 Dose: Not Given Documented by: MARIAH Non-Admin Reason: See Note Omeprazole (Omeprazole 40 Mg Capsule.) 40 mg PO DAILY@0630 [facility] Last Admin: 08/07/21 09:35 Dose: Not Given Documented by: MARIAH Non-Admin Reason: See Note Ondansetron HCl (Ondansetron Hcl 4 Mg/2 Ml Vial) 4 mg IVPUSH Q8H PRN PRN Reason: Nausea and Vomiting Pharmacy Consult (Consult Rx Perform Med Rec) 1 each MISCELLANE ONCE PRN PRN Reason: Consult order Phenobarbital (Phenobarbital 30 Mg Tablet) 60 mg PO BID JESSICA; Protocol Phenobarbital (Phenobarbital 30 Mg Tablet) 30 mg PO BID [facility]; Protocol Phenobarbital (Phenobarbital 30 Mg Tablet) 30 mg PO DAILY [facility]ESS[facility]; Protocol Risperidone (Risperidone 0.5 Mg Tablet) 0.5 mg PO BID [facility] Last Admin: 08/07/21 10:59 Dose: Not Given Documented by: MARIAH Non-Admin Reason: See Note Sodium Chloride (0.9 % Sodium Chloride Flush 3 Ml Syringe) 3 ml IVFLUSH QSHIFT [facility] Last Admin: 08/07/21 09:33 Dose: 3 ml Documented by: MARIAH Thiamine HCl (Thiamine Hcl 100 Mg Tablet) 100 mg PO DAILY [facility] Last Admin: 08/07/21 10:59 Dose: Not Given Documented by: MARIAH Non-Admin Reason: See Note Labs CBC & Chem 7: 08/08/21 08:10 08/08/21 08:10 Labs: Laboratory Results - last 24 hr 08/06/21 08/06/21 08/06/21 19:27 20:27 20:27 MCV 95.9 MCH 29.9 MCHC 31.2 RDW 14.9 Plt Count 155 L MPV 10.6 Immature Gran % (Auto) 0.4 Neut % (Auto) 71.3 Lymph % (Auto) 16.4 L [place] % (Auto) 11.0 Eos % (Auto) 0.4 Baso % (Auto) 0.5 Lymph # (Auto) 1.9 [place] # (Auto) 1.2 Eos # (Auto) 0.0 Baso # (Auto) 0.1 Abs Immat Gran (auto) 0.05 H Absolute Neuts (auto) 8.0 Absolute Nucleated RBC 0.020 H Nucleated RBC % (auto) 0.2 PT INR O2 Saturation 97.0 ABG pH at Pt Temp 7.33 L ABG pCO2 at Pt Temp 72 H* ABG pO2 at Pt Temp 105 ABG HCO3 38 H ABG Base Excess (Actual) 9.3 VBG pH VBG pCO2 VBG pO2 VBG HCO3 VBG O2 Saturation VBG Base Excess Anion Gap 12 Estim Creat Clear Calc 78.9 Estimated GFR 47 POC Glucose Random Glucose 135 H Lactic Acid Calcium 8.9 D Magnesium 1.8 Total Bilirubin 0.6 Direct Bilirubin 0.3 AST 13 ALT 6 Alkaline Phosphatase 93 Ammonia Total Creatine Kinase 49 B-Natriuretic Peptide Total Protein 7.5 Albumin 3.8 Urine Color Urine Appearance Urine pH Ur Specific [place] Urine Protein Urine Glucose (UA) Urine Ketones Urine Blood Urine Nitrite Ur Leukocyte Esterase Urine RBC Urine WBC Ur Squamous Epith Cells Urine Bacteria Valproic Acid 11.1 L Ethyl Alcohol COVID-19 (LINDEN) COVID-19 [employer] Com 08/06/21 08/06/21 08/06/21 20:27 20:27 20:27 MCV MCH MCHC RDW Plt Count MPV Immature Gran % (Auto) Neut % (Auto) Lymph % (Auto) [place] % (Auto) Eos % (Auto) Baso % (Auto) Lymph # (Auto) [place] # (Auto) Eos # (Auto) Baso # (Auto) Abs Immat Gran (auto) Absolute Neuts (auto) Absolute Nucleated RBC Nucleated RBC % (auto) PT INR O2 Saturation ABG pH at Pt Temp ABG pCO2 at Pt Temp ABG pO2 at Pt Temp ABG HCO3 ABG Base Excess (Actual) VBG pH VBG pCO2 VBG pO2 VBG HCO3 VBG O2 Saturation VBG Base Excess Anion Gap Estim Creat Clear Calc Estimated GFR POC Glucose Random Glucose Lactic Acid 1.4 Calcium Magnesium Total Bilirubin Direct Bilirubin AST ALT Alkaline Phosphatase Ammonia Total Creatine Kinase B-Natriuretic Peptide 500 H Total Protein Albumin Urine Color Urine Appearance Urine pH Ur Specific [place] Urine Protein Urine Glucose (UA) Urine Ketones Urine Blood Urine Nitrite Ur Leukocyte Esterase Urine RBC Urine WBC Ur Squamous Epith Cells Urine Bacteria Valproic Acid Ethyl Alcohol < 10 COVID-19 (LINDEN) COVID-19 [employer] 08/06/21 08/06/21 08/06/21 20:27 20:27 22:08 MCV MCH MCHC RDW Plt Count MPV Immature Gran % (Auto) Neut % (Auto) Lymph % (Auto) [place] % (Auto) Eos % (Auto) Baso % (Auto) Lymph # (Auto) [place] # (Auto) Eos # (Auto) Baso # (Auto) Abs Immat Gran (auto) Absolute Neuts (auto) Absolute Nucleated RBC Nucleated RBC % (auto) PT 15.7 H INR 1.4 H O2 Saturation ABG pH at Pt Temp ABG pCO2 at Pt Temp ABG pO2 at Pt Temp ABG HCO3 ABG Base Excess (Actual) VBG pH VBG pCO2 VBG pO2 VBG HCO3 VBG O2 Saturation VBG Base Excess Anion Gap Estim Creat Clear Calc Estimated GFR POC Glucose Random Glucose Lactic Acid Calcium Magnesium Total Bilirubin Direct Bilirubin AST ALT Alkaline Phosphatase Ammonia 28 Total Creatine Kinase B-Natriuretic Peptide Total Protein Albumin Urine Color Urine Appearance Urine pH Ur Specific [place] Urine Protein Urine Glucose (UA) Urine Ketones Urine Blood Urine Nitrite Ur Leukocyte Esterase Urine RBC Urine WBC Ur Squamous Epith Cells Urine Bacteria Valproic Acid Ethyl Alcohol COVID-19 (LINDEN) Negative COVID-19 [employer] Com See Note 08/06/21 08/06/21 08/07/21 22:08 23:13 01:52 MCV MCH MCHC RDW Plt Count MPV Immature Gran % (Auto) Neut % (Auto) Lymph % (Auto) [place] % (Auto) Eos % (Auto) Baso % (Auto) Lymph # (Auto) [place] # (Auto) Eos # (Auto) Baso # (Auto) Abs Immat Gran (auto) Absolute Neuts (auto) Absolute Nucleated RBC Nucleated RBC % (auto) PT INR O2 Saturation 95.0 ABG pH at Pt Temp 7.35 ABG pCO2 at Pt Temp 67 H* ABG pO2 at Pt Temp 79 L ABG HCO3 37 H ABG Base Excess (Actual) 9.2 VBG pH 7.41 VBG pCO2 53 VBG pO2 153 VBG HCO3 34 H VBG O2 Saturation 100.0 VBG Base Excess 8.3 Anion Gap Estim Creat Clear Calc Estimated GFR POC Glucose Random Glucose Lactic Acid Calcium Magnesium Total Bilirubin Direct Bilirubin AST ALT Alkaline Phosphatase Ammonia Total Creatine Kinase B-Natriuretic Peptide Total Protein Albumin Urine Color YELLOW Urine Appearance CLEAR Urine pH 5.5 Ur Specific [place] >= 1.030 H Urine Protein 1+ H Urine Glucose (UA) NEG Urine Ketones NEG Urine Blood TRACE Urine Nitrite NEG Ur Leukocyte Esterase NEG Urine RBC 1-4 Urine WBC 1-4 Ur Squamous Epith Cells NONE Urine Bacteria TRACE Valproic Acid Ethyl Alcohol COVID-19 (LINDEN) COVID-[facility] Com 08/07/21 08/07/21 08/07/21 03:42 03:42 03:43 MCV 94.7 MCH 29.5 MCHC 31.2 RDW 15.0 Plt Count 153 L MPV 10.7 Immature Gran % (Auto) 0.3 Neut % (Auto) 66.7 Lymph % (Auto) 19.7 L [place] % (Auto) 11.7 H Eos % (Auto) 1.0 Baso % (Auto) 0.6 Lymph # (Auto) 2.0 [place] # (Auto) 1.2 Eos # (Auto) 0.1 Baso # (Auto) 0.1 Abs Immat Gran (auto) 0.03 Absolute Neuts (auto) 6.8 Absolute Nucleated RBC 0.000 Nucleated RBC % (auto) 0.0 PT INR O2 Saturation ABG pH at Pt Temp ABG pCO2 at Pt Temp ABG pO2 at Pt Temp ABG HCO3 ABG Base Excess (Actual) VBG pH 7.36 VBG pCO2 68 VBG pO2 61 VBG HCO3 38 H VBG O2 Saturation 87.0 VBG Base Excess 9.9 Anion Gap 12 Estim Creat Clear Calc 95.9 Estimated GFR 59 POC Glucose Random Glucose 125 H Lactic Acid Calcium 8.9 Magnesium Total Bilirubin Direct Bilirubin AST ALT Alkaline Phosphatase Ammonia Total Creatine Kinase B-Natriuretic Peptide Total Protein Albumin Urine Color Urine Appearance Urine pH Ur Specific [place] Urine Protein Urine Glucose (UA) Urine Ketones Urine Blood Urine Nitrite Ur Leukocyte Esterase Urine RBC Urine WBC Ur Squamous Epith Cells Urine Bacteria Valproic Acid Ethyl Alcohol COVID-19 (LINDEN) COVID-19 Clin Com 08/07/21 08/07/21 08/07/21 08:02 10:12 12:52 MCV MCH MCHC RDW Plt Count MPV Immature Gran % (Auto) Neut % (Auto) Lymph % (Auto) [place] % (Auto) Eos % (Auto) Baso % (Auto) Lymph # (Auto) [place] # (Auto) Eos # (Auto) Baso # (Auto) Abs Immat Gran (auto) Absolute Neuts (auto) Absolute Nucleated RBC Nucleated RBC % (auto) PT INR O2 Saturation 96.0 ABG pH at Pt Temp 7.39 ABG pCO2 at Pt Temp 64 H* ABG pO2 at Pt Temp 87 ABG HCO3 39 H ABG Base Excess (Actual) 11.3 VBG pH VBG pCO2 VBG pO2 VBG HCO3 VBG O2 Saturation VBG Base Excess Anion Gap Estim Creat Clear Calc Estimated GFR POC Glucose 111 104 Random Glucose Lactic Acid Calcium Magnesium Total Bilirubin Direct Bilirubin AST ALT Alkaline Phosphatase Ammonia Total Creatine Kinase B-Natriuretic Peptide Total Protein Albumin Urine Color Urine Appearance Urine pH Ur Specific [place] Urine Protein Urine Glucose (UA) Urine Ketones Urine Blood Urine Nitrite Ur Leukocyte Esterase Urine RBC Urine WBC Ur Squamous Epith Cells Urine Bacteria Valproic Acid Ethyl Alcohol COVID-19 (LINDEN) COVID-19 Clin Com Assessment and Plan (1) Acute respiratory failure with hypoxia: Status: Acute (2) Acute on chronic respiratory failure with hypoxia and hypercapnia: Status: Acute Plan 61-year-old male with past medical history of sleep apnea on CPAP, question of compliance, alcohol abuse with history of alcohol withdrawal, among other problems including AFib diabetes hypertension who presents to the hospital? after being found hypoxic at home. 1. Acute hypoxic hypercapnic respiratory failure-? likely secondary to alcohol withdrawal, underlying? sleep apnea and obesity hypoventilation syndrome, acute on chf -? no evidence of pneumonia and chest CT although chest CT did show increase in the size of the small left effusion and new small right effusion - ? at this time will continue CPAP at bedtime, continue oxygen as required Patient still did not improve much, pH seems maintained, CO2 is similar to before. Seen by Pulmonary -so slightly improving as well as mental status , will continue IV Lasix, we will add nebs, steroids in addition to that. incentive spirometry, chest physiotherapy pulm following 2. alcohol withdrawal -? likely contributing to his current? clinical picture including the hypoxic hypercapnic episode -? has significant tremors, asterixis, reports last drink yesterday, history of severe withdrawals will added back phenobarbital Will continue to monitor CIWa for withdrawal. 3. toxic metabolic encephalopathy-? Multifactorial likely secondary to alcohol, multiple psych meds , phenobarbital, possible post alcohol withdrawal postictal seizure seen by Neurology- thought to be Possible secondary to above. seems to be improving Will continue to monitor CIWA, says hussein, will added back phenobarbital 4. MERLIN/ hyperkalemia: Seems to be improving monitor renal function electrolytes closely while on IV Lasix. 5.? diabetes satrted diet , fs with coverage. . 6. AFib-?started P.o.metoprolol and enoxaparin for now d/w pharmacy phenobarbital interact with apixiban , so will continue enoxaparin. ?DVT prophylaxis:? Lovenox. Quality Stroke Does the patient have a stroke diagnosis?: No VTE Prior VTE?: No VTE Risk Level:: Medical - moderate - high VTE Device Contraindication: Treatment Not Indicated VTE Drug Contraindication: N/A - Med Ordered
[2021-08-07] MEDS: acetaZOLAMIDE sodium 500 MG VIAL 250 MG IVPUSH (15:27)
[2021-08-07] MEDS: Furosemide 40 MG/4 ML VIAL IVPUSH (15:28)
[2021-08-07] MEDS: Metoprolol Tartrate 2.5 MG in 0.9 % Sodium Chloride 50 ML 210 MG IV (18:24)
[2021-08-07 18:48] LABS: Glucose, Whole Blood 98 mg/dL (60-115)
--- NOTE | 2021-08-07 20:01 | PC.NURSE ---
nurse to nurse report given to Court IZAGUIRRE
[2021-08-07 21:06] LABS: Glucose, Whole Blood 99 mg/dL (60-115)
--- NOTE | 2021-08-07 21:15 | PM.EVENT ---
Event Note Date of Service: 08/07/21 Event Note: pt more alert, oriented, asking to eat and is in withdrawal. phenobarb restarted
[2021-08-08] VITALS (12 sets, daily range): BP systolic 121–164; BP diastolic 68–91; PULSE 79–106; RESP 16–20; TEMP 36.6–37.1; O2SAT 91–96; BMI 42.7; BMI 42.3
[2021-08-08] MEDS: Metoprolol Tartrate 2.5 MG in 0.9 % Sodium Chloride 50 ML 210 MG IV ×2 (01:23→06:16)
[2021-08-08] MEDS: Furosemide 40 MG/4 ML VIAL IVPUSH ×2 (03:47→15:00)
[2021-08-08 07:35] LABS: Glucose, Whole Blood 108 mg/dL (60-115)
[2021-08-08 08:37] LABS: Hematocrit 43.8 % (42.0-52.0); Hemoglobin 13.8 g/dl (14.0-18.0); Mean Corpuscular HGB Conc 31.5 g/dl (31.0-36.0); Mean Corpuscular Hemoglobin 29.6 pg (27.0-33.0); Mean Corpuscular Volume 93.8 fL (80.0-98.0); Mean Platelet Volume 10.8 fL (9.4-12.4); Platelet Count 149 X10*3/uL (160-400); Red Blood Count 4.67 X10*6/uL (4.60-5.80); Red Cell Distribution Width 14.9 % (11.0-16.0); White Blood Count 9.4 X10*3/uL (4.8-10.8)
[2021-08-08 08:38] LABS: ABG Refer to POC result
[2021-08-08 08:40] LABS: ABG Base Excess 11.1 mmol/L; ABG HCO3 39 mmol/L (22-26); ABG pH 7.39 (7.35-7.45); ABG pO2 85 mmHg (83-108)
[2021-08-08 08:41] LABS: ABG pCO2 63 mmHg (32-45)
[2021-08-08 08:50] LABS: Anion Gap 13 (12-20); Blood Urea Nitrogen 23 mg/dL (9-16); Calcium 9.3 mg/dL (8.4-10.2); Carbon Dioxide 36 mmol/L (22-29); Chloride 93 mmol/L (96-108); Creatinine Clr Calc Pharmacy 90.7; Estimated Glomerular Filt Rate 56; Glucose Random 107 mg/dL (60-115); Potassium 4.3 mmol/L (3.3-5.1); Sodium 138 mmol/L (135-145)
[2021-08-08] MEDS: Thiamine HCL 500 MG in 0.9 % Sodium Chloride 100 ML 210 MG IV ×3 (09:09→21:39)
[2021-08-08] MEDS: 0.9 % Sodium Chloride Flush 3 ML SYRINGE IVFLUSH ×3 (09:09→20:40)
[2021-08-08] MEDS: Enoxaparin Sodium 150 MG/ML SYRINGE SUBCUT ×2 (09:13→20:39)
[2021-08-08] MEDS: Thiamine HCL 100 MG TABLET PO (09:14)
[2021-08-08] MEDS: Divalproex Sodium 250 MG TABLET.DR PO ×2 (09:14→20:39)
[2021-08-08] MEDS: Metoprolol Tartrate 25 MG TABLET PO ×2 (09:14→20:39)
[2021-08-08] MEDS: amLODIPine Besylate 5 MG TABLET PO (09:14)
[2021-08-08] MEDS: allopurinoL 100 MG TABLET PO (09:14)
[2021-08-08] MEDS: PHENobarbitaL 30 MG TABLET 60 MG PO ×2 (09:14→20:39)
[2021-08-08] MEDS: FLUoxetine HCl 20 MG CAPSULE 40 MG PO (09:14)
[2021-08-08] MEDS: Folic Acid 1 MG TABLET PO (09:14)
[2021-08-08] MEDS: Albuterol/Iprat 2.5/0.5MG 3 ML AMPUL.NEB INHALE ×4 (11:30→20:02)
[2021-08-08 11:43] LABS: Glucose, Whole Blood 135 mg/dL (60-115)
--- NOTE | 2021-08-08 11:44 | P.PNCA_ITS ---
Subjective Subjective Date of Service: 08/08/21 Interval history: Confused, on high-flow oxygen. Physical Exam Vital Signs: Last Vital Signs Temp 98.4 F 08/08/21 11:08 Pulse 93 08/08/21 11:08 Resp 18 08/08/21 11:34 BP 164/89 H 08/08/21 11:08 Pulse Ox 95 08/08/21 11:08 BMI result Body Mass Index 42.3 GENERAL APPEARANCE: Sleepy but arousable. Not following commands. Asterixis positive. NECK: no carotid bruit, elevated jugular venous distention. SKIN: no suspicious lesions, warm and dry. HEART: no murmurs, regular rate and rhythm. LUNGS: clear to auscultation anteriorly. ABDOMEN: soft, nontender. EXTREMITIES: Mild edema. PERIPHERAL PULSES: equal. Objective Labs and Meds Result diagrams: 08/08/21 08:10 08/08/21 08:10 Lab results: Laboratory Results - last 24 hr 08/07/21 08/07/21 08/07/21 12:52 18:45 20:52 WBC RBC Hgb Hct MCV MCH MCHC RDW Plt Count MPV Absolute Nucleated RBC Nucleated RBC % (auto) O2 Saturation ABG pH at Pt Temp ABG pCO2 at Pt Temp ABG pO2 at Pt Temp ABG HCO3 ABG Base Excess (Actual) Sodium Potassium Chloride Carbon Dioxide Anion Gap BUN Creatinine Estim Creat Clear Calc Estimated GFR POC Glucose 104 98 99 Random Glucose Calcium 08/08/21 08/08/21 08/08/21 07:27 08:10 08:10 WBC 9.4 RBC 4.67 Hgb 13.8 L Hct 43.8 MCV 93.8 MCH 29.6 MCHC 31.5 RDW 14.9 Plt Count 149 L MPV 10.8 Absolute Nucleated RBC 0.000 Nucleated RBC % (auto) 0.0 O2 Saturation ABG pH at Pt Temp ABG pCO2 at Pt Temp ABG pO2 at Pt Temp ABG HCO3 ABG Base Excess (Actual) Sodium 138 Potassium 4.3 Chloride 93 L Carbon Dioxide 36 H Anion Gap 13 BUN 23 H Creatinine 1.30 Estim Creat Clear Calc 90.7 Estimated GFR 56 POC Glucose 108 Random Glucose 107 Calcium 9.3 08/08/21 08/08/21 08:16 11:11 WBC RBC Hgb Hct MCV MCH MCHC RDW Plt Count MPV Absolute Nucleated RBC Nucleated RBC % (auto) O2 Saturation 96.0 ABG pH at Pt Temp 7.39 ABG pCO2 at Pt Temp 63 H* ABG pO2 at Pt Temp 85 ABG HCO3 39 H ABG Base Excess (Actual) 11.1 Sodium Potassium Chloride Carbon Dioxide Anion Gap BUN Creatinine Estim Creat Clear Calc Estimated GFR POC Glucose 135 H Random Glucose Calcium Progress Note: A&P Assessment and plan (1) Cirrhosis: Status: Acute (2) Acute respiratory failure with hypoxia: Status: Acute Plan 61-year-old gentleman with cirrhosis of liver and alcoholism. Presenting with hypoxic respiratory failure and is on high-flow oxygen. CT chest showed bilateral effusions. Clinically whole body overloaded. Agree with IV diuretics. Mental status is still quite poor and he by exam has encephalopathy. He is arousable compared to yesterday and maybe this was secondary to phenobarbital. Continue with IV diuretics. Consider checking chest x-ray to reassess the longest that is there and infective process or some other explanation for the hypoxia. Thank you for allowing me to participate in the care of your patient. Please feel free to contact me if you have any questions. Fall Risk Details Current Medications: Current Medications Acetaminophen (Acetaminophen 325 Mg Tablet) 650 mg PO Q6H PRN PRN Reason: Pain, Mild (Pain Scale 1-3) Albuterol Sulfate (Albuterol Sulfate 90 Mcg 8 Gm Inhaler) 2 puff INHALE Q4H PRN PRN Reason: for wheezing Albuterol/Ipratropium (Albuterol/Iprat 2.5/0.5mg 3 Ml Ampul.Neb) 3 ml INHALE RQ4H WHILE AWAKE [facility] Last Admin: 08/08/21 11:37 Dose: 3 ml Documented by: Albuterol/Ipratropium (Albuterol/Iprat 2.5/0.5mg 3 Ml Ampul.Neb) 3 ml INHALE RQ6H PRN PRN Reason: Shortness of Breath Allopurinol (Allopurinol 100 Mg Tablet) 100 mg PO DAILY [facility] Last Admin: 08/08/21 09:14 Dose: 100 mg Documented by: Amlodipine Besylate (Amlodipine Besylate 5 Mg Tablet) 5 mg PO DAILY [facility]; Protocol Last Admin: 08/08/21 09:14 Dose: 5 mg Documented by: Dextrose (Dextrose 50 % 25 Gm/50 Ml Syringe) 25 gm IVPUSH Q15M PRN; Protocol PRN Reason: per Hypoglycemia Standing Ord. Divalproex Sodium (Divalproex Sodium 250 Mg Tablet.) 250 mg PO BID [facility] Last Admin: 08/08/21 09:14 Dose: 250 mg Documented by: Docusate Sodium (Docusate Sodium 100 Mg Capsule) 100 mg PO DAILY PRN PRN Reason: Constipation Enoxaparin Sodium (Enoxaparin Sodium 150 Mg/Ml Syringe) 150 mg SUBCUT Q12H [facility] Last Admin: 08/08/21 09:13 Dose: 150 mg Documented by: Fluoxetine HCl (Fluoxetine Hcl 20 Mg Capsule) 40 mg PO DAILY [facility] Last Admin: 08/08/21 09:14 Dose: 40 mg Documented by: Folic Acid (Folic Acid 1 Mg Tablet) 1 mg PO DAILY [facility] Last Admin: 08/08/21 09:14 Dose: 1 mg Documented by: Furosemide (Furosemide 40 Mg/4 Ml Vial) 40 mg IVPUSH Q12H [facility]; Protocol Last Admin: 08/08/21 03:47 Dose: 40 mg Documented by: Glucose (Glucose Gel 15 Gm Gel..Gram.) 15 gm PO Q15M PRN; Protocol PRN Reason: per Hypoglycemia Standing Ord. Thiamine HCl 500 mg/ Sodium (Chloride) 105 mls @ 210 mls/hr IV TID [facility] Last Infusion: 08/08/21 09:39 Dose: Infused Documented by: Insulin Human Lispro (Insulin Lispro 100 Unit/Ml 3 Ml Vial) 0 unit SUBCUT QIDACHS [facility]; Protocol Last Admin: 08/08/21 11:43 Dose: Not Given Documented by: Metoprolol Tartrate (Metoprolol Tartrate 25 Mg Tablet) 25 mg PO BID [facility]; Protocol Last Admin: 08/08/21 09:14 Dose: 25 mg Documented by: Omeprazole (Omeprazole 40 Mg Capsule.) 40 mg PO DAILY@0630 [facility] Last Admin: 08/07/21 09:35 Dose: Not Given Documented by: Ondansetron HCl (Ondansetron Hcl 4 Mg/2 Ml Vial) 4 mg IVPUSH Q8H PRN PRN Reason: Nausea and Vomiting Pharmacy Consult (Consult Rx Perform Med Rec) 1 each MISCELLANE ONCE PRN PRN Reason: Consult order Phenobarbital (Phenobarbital 30 Mg Tablet) 30 mg PO DAILY [facility]; Protocol Stop: 08/13/21 09:01 Phenobarbital (Phenobarbital 30 Mg Tablet) 60 mg PO BID [facility]; Protocol Stop: 08/09/21 21:01 Phenobarbital (Phenobarbital 30 Mg Tablet) 30 mg PO BID [facility]; Protocol Stop: 08/11/21 21:01 Prednisone (Prednisone 20 Mg Tablet) 40 mg PO DAILY [facility] Risperidone (Risperidone 0.5 Mg Tablet) 0.5 mg PO BID [facility] Last Admin: 08/07/21 10:59 Dose: Not Given Documented by: Sodium Chloride (0.9 % Sodium Chloride Flush 3 Ml Syringe) 3 ml IVFLUSH QSHIFT [facility] Last Admin: 08/08/21 09:09 Dose: 3 ml Documented by: Thiamine HCl (Thiamine Hcl 100 Mg Tablet) 100 mg PO DAILY [facility] Last Admin: 08/08/21 09:14 Dose: 100 mg Documented by: Time Spent With Patient Time: Total time spent is greater than 50% in coordination of care (as documented) at patient's floor/unit and/or counseling patient: Time with patient: 15 - 24 minutes Progress Note: Quality Stroke Does the patient have a stroke diagnosis?: No Procedures Date of Service Date of Service: 08/08/21
[2021-08-08] MEDS: predniSONE 20 MG TABLET 40 MG PO (12:16)
[2021-08-08 13:55] LABS: VBG Base Excess 11.8 mmol/L; VBG HCO3 39 mmol/L (22-26); VBG pCO2 64 mmHg; VBG pO2 63 mmHg
[2021-08-08 13:56] LABS: Venous Blood Gas Refer to POC result
[2021-08-08 16:07] LABS: Glucose, Whole Blood 175 mg/dL (60-115)
--- NOTE | 2021-08-08 19:14 | PC.NURSE ---
IS 1,200 -1,500. CAN ONLY HANDLE 5 REPS BEFORE SAYING I'M DONE
[2021-08-08 20:35] LABS: Glucose, Whole Blood 231 mg/dL (60-115)
[2021-08-09] VITALS (12 sets, daily range): BP systolic 117–155; BP diastolic 72–88; PULSE 77–106; RESP 8–20; TEMP 36.4–36.8; O2SAT 90–98; BMI 42.2
[2021-08-09] MEDS: Furosemide 40 MG/4 ML VIAL IVPUSH (04:10)
[2021-08-09] MEDS: Omeprazole 40 MG CAPSULE.DR PO (05:39)
[2021-08-09 06:48] LABS: B Type Natriuretic Peptide 454 pg/mL (<100)
[2021-08-09 06:55] LABS: Anion Gap 13 (12-20); Blood Urea Nitrogen 37 mg/dL (9-16); Calcium 9.3 mg/dL (8.4-10.2); Carbon Dioxide 34 mmol/L (22-29); Chloride 93 mmol/L (96-108); Creatinine Clr Calc Pharmacy 71.3; Estimated Glomerular Filt Rate 43; Glucose Random 140 mg/dL (60-115); Potassium 4.2 mmol/L (3.3-5.1); Sodium 136 mmol/L (135-145)
[2021-08-09 07:26] LABS: Glucose, Whole Blood 145 mg/dL (60-115)
[2021-08-09] MEDS: Albuterol/Iprat 2.5/0.5MG 3 ML AMPUL.NEB INHALE ×4 (07:27→20:26)
[2021-08-09] MEDS: Albumin Human 25 % 100 ML IV ×3 (09:22→19:46)
[2021-08-09] MEDS: Folic Acid 1 MG TABLET PO (09:25)
[2021-08-09] MEDS: Thiamine HCL 100 MG TABLET PO (09:25)
[2021-08-09] MEDS: predniSONE 20 MG TABLET 40 MG PO (09:25)
[2021-08-09] MEDS: 0.9 % Sodium Chloride Flush 3 ML SYRINGE IVFLUSH ×4 (09:25→20:48)
[2021-08-09] MEDS: Metoprolol Tartrate 25 MG TABLET PO ×2 (09:25→20:48)
[2021-08-09] MEDS: FLUoxetine HCl 20 MG CAPSULE 40 MG PO (09:25)
[2021-08-09] MEDS: Enoxaparin Sodium 150 MG/ML SYRINGE SUBCUT ×2 (09:25→19:45)
[2021-08-09] MEDS: Divalproex Sodium 250 MG TABLET.DR PO ×2 (09:25→20:48)
[2021-08-09] MEDS: allopurinoL 100 MG TABLET PO (09:26)
[2021-08-09] MEDS: amLODIPine Besylate 5 MG TABLET PO (09:26)
[2021-08-09] MEDS: PHENobarbitaL 30 MG TABLET 60 MG PO ×2 (09:26→20:48)
[2021-08-09] MEDS: Thiamine HCL 500 MG in 0.9 % Sodium Chloride 100 ML 210 MG IV ×3 (10:06→20:49)
--- NOTE | 2021-08-09 11:03 | PM.PNCARD ---
Subjective Subjective Date of Service: 08/09/21 Interval history: On high-flow oxygen. Denying any symptoms. Saying he does not use oxygen at home and uses CPAP at night. Physical Exam Vital Signs: Last Vital Signs Temp 97.6 F 08/09/21 10:52 Pulse 77 08/09/21 10:52 Resp 18 08/09/21 10:52 BP 155/88 H 08/09/21 10:52 Pulse Ox 95 08/09/21 10:52 BMI result Body Mass Index 42.2 GENERAL APPEARANCE:? Awake and alert today. In no distress. On high-flow oxygen by nasal cannula. NECK: no carotid bruit, mild JVD. SKIN: no suspicious lesions, warm and dry. HEART: no murmurs, regular rate and rhythm. LUNGS: clear to auscultation anteriorly. ABDOMEN: soft, nontender. EXTREMITIES:? Mild edema. PERIPHERAL PULSES: equal. Objective Labs and Meds Result diagrams: 08/08/21 08:10 08/09/21 05:40 Lab results: Laboratory Results - last 24 hr 08/08/21 08/08/21 08/08/21 11:11 13:47 16:04 VBG pH 7.40 VBG pCO2 64 VBG pO2 63 VBG HCO3 39 H VBG O2 Saturation 89.0 VBG Base Excess 11.8 Sodium Potassium Chloride Carbon Dioxide Anion Gap BUN Creatinine Estim Creat Clear Calc Estimated GFR POC Glucose 135 H 175 H Random Glucose Calcium B-Natriuretic Peptide 08/08/21 08/09/21 08/09/21 20:25 05:40 05:40 VBG pH VBG pCO2 VBG pO2 VBG HCO3 VBG O2 Saturation VBG Base Excess Sodium 136 Potassium 4.2 Chloride 93 L Carbon Dioxide 34 H Anion Gap 13 BUN 37 H D Creatinine 1.65 H Estim Creat Clear Calc 71.3 Estimated GFR 43 POC Glucose 231 H Random Glucose 140 H Calcium 9.3 B-Natriuretic Peptide 454 H 08/09/21 07:06 VBG pH VBG pCO2 VBG pO2 VBG HCO3 VBG O2 Saturation VBG Base Excess Sodium Potassium Chloride Carbon Dioxide Anion Gap BUN Creatinine Estim Creat Clear Calc Estimated GFR POC Glucose 145 H Random Glucose Calcium B-Natriuretic Peptide Progress Note: A&P Assessment and plan (1) Cirrhosis: Status: Acute (2) Acute respiratory failure with hypoxia: Status: Acute Plan 61-year-old gentleman with cirrhosis of liver and alcoholism.? Presenting with hypoxic respiratory failure and is on high-flow oxygen.? CT chest showed bilateral effusions.? Clinically was whole body overloaded and was given IV diuretics. He diuresed but his kidney function has worsened. Agree with holding diuretics. Continues to be on high-flow oxygen. I think we need to understand why he has such a high oxygen requirement. He had small effusions on CT scan does not explain the degree of hypoxia. Consider repeat imaging. Thank you for allowing me to participate in the care of your patient.? Please feel free to contact me if you have any questions. Fall Risk Details Current Medications: Current Medications Acetaminophen (Acetaminophen 325 Mg Tablet) 650 mg PO Q6H PRN PRN Reason: Pain, Mild (Pain Scale 1-3) Albuterol Sulfate (Albuterol Sulfate 90 Mcg 8 Gm Inhaler) 2 puff INHALE Q4H PRN PRN Reason: for wheezing Albuterol/Ipratropium (Albuterol/Iprat 2.5/0.5mg 3 Ml Ampul.Neb) 3 ml INHALE RQ4H WHILE AWAKE [facility] Last Admin: 08/09/21 07:27 Dose: 3 ml Documented by: Albuterol/Ipratropium (Albuterol/Iprat 2.5/0.5mg 3 Ml Ampul.Neb) 3 ml INHALE RQ6H PRN PRN Reason: Shortness of Breath Allopurinol (Allopurinol 100 Mg Tablet) 100 mg PO DAILY [facility] Last Admin: 08/09/21 09:26 Dose: 100 mg Documented by: Amlodipine Besylate (Amlodipine Besylate 5 Mg Tablet) 5 mg PO DAILY [facility]; Protocol Last Admin: 08/09/21 09:26 Dose: 5 mg Documented by: Dextrose (Dextrose 50 % 25 Gm/50 Ml Syringe) 25 gm IVPUSH Q15M PRN; Protocol PRN Reason: per Hypoglycemia Standing Ord. Divalproex Sodium (Divalproex Sodium 250 Mg Tablet.) 250 mg PO BID [facility] Last Admin: 08/09/21 09:25 Dose: 250 mg Documented by: Docusate Sodium (Docusate Sodium 100 Mg Capsule) 100 mg PO DAILY PRN PRN Reason: Constipation Enoxaparin Sodium (Enoxaparin Sodium 150 Mg/Ml Syringe) 150 mg SUBCUT Q12H [facility] Last Admin: 08/09/21 09:25 Dose: 150 mg Documented by: Fluoxetine HCl (Fluoxetine Hcl 20 Mg Capsule) 40 mg PO DAILY [facility] Last Admin: 08/09/21 09:25 Dose: 40 mg Documented by: Folic Acid (Folic Acid 1 Mg Tablet) 1 mg PO DAILY [facility] Last Admin: 08/09/21 09:25 Dose: 1 mg Documented by: Glucose (Glucose Gel 15 Gm Gel..Gram.) 15 gm PO Q15M PRN; Protocol PRN Reason: per Hypoglycemia Standing Ord. Thiamine HCl 500 mg/ Sodium (Chloride) 105 mls @ 210 mls/hr IV TID [facility] Last Admin: 08/09/21 10:06 Dose: 210 mls/hr Documented by: Albumin Human (Kedbumin 25 %) 100 mls @ 100 mls/hr IV Q6H [facility] Stop: 08/10/21 03:29 Last Infusion: 08/09/21 10:22 Dose: Infused Documented by: Insulin Human Lispro (Insulin Lispro 100 Unit/Ml 3 Ml Vial) 0 unit SUBCUT QIDACHS [facility]; Protocol Last Admin: 08/09/21 07:29 Dose: Not Given Documented by: Metoprolol Tartrate (Metoprolol Tartrate 25 Mg Tablet) 25 mg PO BID [facility]; Protocol Last Admin: 08/09/21 09:25 Dose: 25 mg Documented by: Omeprazole (Omeprazole 40 Mg Capsule.Dr) 40 mg PO DAILY@0630 [facility] Last Admin: 08/09/21 05:39 Dose: 40 mg Documented by: Ondansetron HCl (Ondansetron Hcl 4 Mg/2 Ml Vial) 4 mg IVPUSH Q8H PRN PRN Reason: Nausea and Vomiting Pharmacy Consult (Consult Rx Perform Med Rec) 1 each MISCELLANE ONCE PRN PRN Reason: Consult order Phenobarbital (Phenobarbital 30 Mg Tablet) 30 mg PO DAILY [facility]; Protocol Stop: 08/13/21 09:01 Phenobarbital (Phenobarbital 30 Mg Tablet) 60 mg PO BID [facility]; Protocol Stop: 08/09/21 21:01 Last Admin: 08/09/21 09:26 Dose: 60 mg Documented by: Phenobarbital (Phenobarbital 30 Mg Tablet) 30 mg PO BID [facility]; Protocol Stop: 08/11/21 21:01 Prednisone (Prednisone 20 Mg Tablet) 40 mg PO DAILY [facility] Last Admin: 08/09/21 09:25 Dose: 40 mg Documented by: Risperidone (Risperidone 0.5 Mg Tablet) 0.5 mg PO BID [facility] Last Admin: 08/07/21 10:59 Dose: Not Given Documented by: Sodium Chloride (0.9 % Sodium Chloride Flush 3 Ml Syringe) 3 ml IVFLUSH QSHIFT [facility] Last Admin: 08/09/21 09:25 Dose: 3 ml Documented by: Thiamine HCl (Thiamine Hcl 100 Mg Tablet) 100 mg PO DAILY [facility] Last Admin: 08/09/21 09:25 Dose: 100 mg Documented by: Time Spent With Patient Time: Total time spent is greater than 50% in coordination of care (as documented) at patient's floor/unit and/or counseling patient: Time with patient: 15 - 24 minutes Progress Note: Quality Stroke Does the patient have a stroke diagnosis?: No Procedures Date of Service Date of Service: 08/09/21
--- NOTE | 2021-08-09 11:09 | HO.PM.IMPN ---
Subjective Subjective Date of Service: 08/09/21 Interval History: Date of service 08/08 Acute hypoxemic respiratory failure multifactorial. Toxic metabolic encephalopathy. Review of Systems Patient seems to be more awake and alert, still short of breath. Denies denies any chest pain or abdominal pain or nausea vomiting or any urinary complaints. Physical Exam Vital Signs: Vital Signs: Last Vital Signs ?Appearance:aox3 , follows simple commands ? Eyes: Pupils equal, round and reactive to light.? Sclera nonicteric.? ENT: Pharynx normal.? Moist mucous membranes. cvs: rrr, [id number] , no murmur res: clear to auscultation ,no rhonchii or wheezing abd: no rebound or guarding ,nt, bs present, has probable ascitis . ext pulses present , no cyanosis . neuro: , nonfocal. Objective Data Active Medications Acetaminophen (Acetaminophen 325 Mg Tablet) 650 mg PO Q6H PRN PRN Reason: Pain, Mild (Pain Scale 1-3) Albuterol Sulfate (Albuterol Sulfate 90 Mcg 8 Gm Inhaler) 2 puff INHALE Q4H PRN PRN Reason: for wheezing Albuterol/Ipratropium (Albuterol/Iprat 2.5/0.5mg 3 Ml Ampul.Neb) 3 ml INHALE RQ4H WHILE AWAKE [facility] Last Admin: 08/09/21 11:07 Dose: 3 ml Documented by: VINICIUS Albuterol/Ipratropium (Albuterol/Iprat 2.5/0.5mg 3 Ml Ampul.Neb) 3 ml INHALE RQ6H PRN PRN Reason: Shortness of Breath Allopurinol (Allopurinol 100 Mg Tablet) 100 mg PO DAILY [facility] Last Admin: 08/09/21 09:26 Dose: 100 mg Documented by: ROSHAN Amlodipine Besylate (Amlodipine Besylate 5 Mg Tablet) 5 mg PO DAILY [facility]; Protocol Last Admin: 08/09/21 09:26 Dose: 5 mg Documented by: ROSHAN Dextrose (Dextrose 50 % 25 Gm/50 Ml Syringe) 25 gm IVPUSH Q15M PRN; Protocol PRN Reason: per Hypoglycemia Standing Ord. Divalproex Sodium (Divalproex Sodium 250 Mg Tablet.) 250 mg PO BID [facility] Last Admin: 08/09/21 09:25 Dose: 250 mg Documented by: ROSHAN Docusate Sodium (Docusate Sodium 100 Mg Capsule) 100 mg PO DAILY PRN PRN Reason: Constipation Enoxaparin Sodium (Enoxaparin Sodium 150 Mg/Ml Syringe) 150 mg SUBCUT Q12H [facility] Last Admin: 08/09/21 09:25 Dose: 150 mg Documented by: ROSHAN Fluoxetine HCl (Fluoxetine Hcl 20 Mg Capsule) 40 mg PO DAILY [facility] Last Admin: 08/09/21 09:25 Dose: 40 mg Documented by: ROSHAN Folic Acid (Folic Acid 1 Mg Tablet) 1 mg PO DAILY [facility] Last Admin: 08/09/21 09:25 Dose: 1 mg Documented by: ROSHAN Glucose (Glucose Gel 15 Gm Gel..Gram.) 15 gm PO Q15M PRN; Protocol PRN Reason: per Hypoglycemia Standing Ord. Thiamine HCl 500 mg/ Sodium (Chloride) 105 mls @ 210 mls/hr IV TID [facility] Last Admin: 08/09/21 10:06 Dose: 210 mls/hr Documented by: ROSHAN Comments: barcode wont scan Albumin Human (Kedbumin 25 %) 100 mls @ 100 mls/hr IV Q6H [facility] Stop: 08/10/21 03:29 Last Infusion: 08/09/21 10:22 Dose: 0 mls/hr Documented by: ROSHAN Insulin Human Lispro (Insulin Lispro 100 Unit/Ml 3 Ml Vial) 0 unit SUBCUT QIDACHS [facility]; Protocol Last Admin: 08/09/21 07:29 Dose: Not Given Documented by: ROSHAN Non-Admin Reason: No Insulin Coverage Metoprolol Tartrate (Metoprolol Tartrate 25 Mg Tablet) 25 mg PO BID [facility]; Protocol Last Admin: 08/09/21 09:25 Dose: 25 mg Documented by: ROSHAN Omeprazole (Omeprazole 40 Mg Rickie.) 40 mg PO DAILY@0630 [facility] Last Admin: 08/09/21 05:39 Dose: 40 mg Documented by: WENDY Ondansetron HCl (Ondansetron Hcl 4 Mg/2 Ml Vial) 4 mg IVPUSH Q8H PRN PRN Reason: Nausea and Vomiting Pharmacy Consult (Consult Rx Perform Med Rec) 1 each MISCELLANE ONCE PRN PRN Reason: Consult order Phenobarbital (Phenobarbital 30 Mg Tablet) 30 mg PO DAILY [facility]; Protocol Stop: 08/13/21 09:01 Phenobarbital (Phenobarbital 30 Mg Tablet) 60 mg PO BID [facility]; Protocol Stop: 08/09/21 21:01 Last Admin: 08/09/21 09:26 Dose: 60 mg Documented by: ROSHAN Phenobarbital (Phenobarbital 30 Mg Tablet) 30 mg PO BID [facility]; Protocol Stop: 08/11/21 21:01 Prednisone (Prednisone 20 Mg Tablet) 40 mg PO DAILY [facility] Last Admin: 08/09/21 09:25 Dose: 40 mg Documented by: ROSHAN Risperidone (Risperidone 0.5 Mg Tablet) 0.5 mg PO BID [facility] Last Admin: 08/07/21 10:59 Dose: Not Given Documented by: MARIAH Non-Admin Reason: See Note Sodium Chloride (0.9 % Sodium Chloride Flush 3 Ml Syringe) 3 ml IVFLUSH QSHIFT [facility] Last Admin: 08/09/21 09:25 Dose: 3 ml Documented by: ROSHAN Thiamine HCl (Thiamine Hcl 100 Mg Tablet) 100 mg PO DAILY [facility] Last Admin: 08/09/21 09:25 Dose: 100 mg Documented by: ROSHAN Labs CBC & Chem 7: 08/08/21 08:10 08/09/21 05:40 Labs: Laboratory Results - last 24 hr 08/08/21 08/08/21 08/08/21 11:11 13:47 16:04 VBG pH 7.40 VBG pCO2 64 VBG pO2 63 VBG HCO3 39 H VBG O2 Saturation 89.0 VBG Base Excess 11.8 Anion Gap Estim Creat Clear Calc Estimated GFR POC Glucose 135 H 175 H Random Glucose Calcium B-Natriuretic Peptide 08/08/21 08/09/21 08/09/21 20:25 05:40 05:40 VBG pH VBG pCO2 VBG pO2 VBG HCO3 VBG O2 Saturation VBG Base Excess Anion Gap 13 Estim Creat Clear Calc 71.3 Estimated GFR 43 POC Glucose 231 H Random Glucose 140 H Calcium 9.3 B-Natriuretic Peptide 454 H 08/09/21 07:06 VBG pH VBG pCO2 VBG pO2 VBG HCO3 VBG O2 Saturation VBG Base Excess Anion Gap Estim Creat Clear Calc Estimated GFR POC Glucose 145 H Random Glucose Calcium B-Natriuretic Peptide Microbiology Microbiology Results: Microbiology 08/06/21 21:12 Blood Culture - Preliminary Blood - Venous No growth after 48 hours. 08/06/21 20:27 Blood Culture - Preliminary Blood - Venous No growth after 48 hours. Assessment and Plan (1) Acute respiratory failure with hypoxia: Status: Acute (2) Acute on chronic respiratory failure with hypoxia and hypercapnia: Status: Acute (3) Alcohol withdrawal: Status: Acute (4) CHF (congestive heart failure): Status: Acute Plan 61-year-old male with past medical history of sleep apnea on CPAP, question of compliance, alcohol abuse with history of alcohol withdrawal, among other problems including AFib diabetes hypertension who presents to the hospital? after being found hypoxic at home. 1. Acute hypoxic hypercapnic respiratory failure-? likely secondary to alcohol withdrawal, underlying? sleep apnea and obesity hypoventilation syndrome, acute on chf -? no evidence of pneumonia and chest CT although chest CT did show increase in the size of the small left effusion and new small right effusion - ? at this time will continue CPAP at bedtime, continue oxygen as required ? Patient still did not improve much, pH seems maintained, CO2 is similar to before. Seen by Pulmonary - improving as well as mental status , ?will continue IV Lasix, we will add nebs, steroids in addition to that. ?incentive spirometry, chest physiotherapy ?pulm? following 2. alcohol withdrawal -? likely contributing to his current? clinical picture including the hypoxic hypercapnic episode -? has significant tremors, asterixis, reports last drink yesterday, history of severe withdrawals ?will added back phenobarbital ? Will continue to monitor CIWa? for withdrawal. 3. toxic metabolic encephalopathy-?? Multifactorial likely secondary to alcohol, multiple psych meds , phenobarbital,? possible post alcohol withdrawal postictal seizure ?seen by Neurology- thought to be ? Possible secondary to above. seems to be improving ? Will continue to monitor CIWA, says hussein, will added back phenobarbital 4.? MERLIN/ hyperkalemia: Seems to be improving ?monitor renal function electrolytes closely while on IV Lasix. 5.? diabetes satrted diet , fs with coverage. . 6. AFib-?started? ? P.o.metoprolol and enoxaparin for now d/w pharmacy phenobarbital interact with apixiban , so will continue enoxaparin. ?DVT prophylaxis:?? Lovenox. Quality Stroke Does the patient have a stroke diagnosis?: No VTE Prior VTE?: No VTE Risk Level:: Medical - moderate - high VTE Device Contraindication: Treatment Not Indicated VTE Drug Contraindication: N/A - Med Ordered
[2021-08-09 11:18] LABS: Glucose, Whole Blood 129 mg/dL (60-115)
--- NOTE | 2021-08-09 13:12 | P.PNIM_ITS ---
Subjective Subjective Date of Service: 08/09/21 Interval History: acute on chronic hypoxemic /hypercarbic respiratory failure toxic metabolic encephalopathy Review of Systems mental status seems to be improved significantly patient is still short of breath, oxygen demand is slightly improving denies any chest pain or cough or phlegm or nausea or vomiting or any urinary complaints. Physical Exam Vital Signs: Vital Signs: Last Vital Signs Temp 97.6 F 08/09/21 10:52 Pulse 77 08/09/21 10:52 Resp 8 L 08/09/21 11:08 BP 155/88 H 08/09/21 10:52 Pulse Ox 95 08/09/21 10:52 BMI result Body Mass Index 42.2 Appearance:aox3 , follows simple commands ? Eyes: Pupils equal, round and reactive to light.? Sclera nonicteric.? ENT: Pharynx normal.? Moist mucous membranes. cvs: rrr, [id number] , no murmur res: clear to auscultation ,no rhonchii or wheezing abd: no rebound or guarding ,nt, bs present, has probable ascitis . ext pulses present , no cyanosis . neuro: , nonfocal. Objective Data Active Medications Acetaminophen (Acetaminophen 325 Mg Tablet) 650 mg PO Q6H PRN PRN Reason: Pain, Mild (Pain Scale 1-3) Albuterol Sulfate (Albuterol Sulfate 90 Mcg 8 Gm Inhaler) 2 puff INHALE Q4H PRN PRN Reason: for wheezing Albuterol/Ipratropium (Albuterol/Iprat 2.5/0.5mg 3 Ml Ampul.Neb) 3 ml INHALE RQ4H WHILE AWAKE [facility] Last Admin: 08/09/21 11:07 Dose: 3 ml Documented by: VINICIUS Albuterol/Ipratropium (Albuterol/Iprat 2.5/0.5mg 3 Ml Ampul.Neb) 3 ml INHALE RQ6H PRN PRN Reason: Shortness of Breath Allopurinol (Allopurinol 100 Mg Tablet) 100 mg PO DAILY [facility] Last Admin: 08/09/21 09:26 Dose: 100 mg Documented by: ROSHAN Amlodipine Besylate (Amlodipine Besylate 5 Mg Tablet) 5 mg PO DAILY [facility]; Protocol Last Admin: 08/09/21 09:26 Dose: 5 mg Documented by: ROSHAN Dextrose (Dextrose 50 % 25 Gm/50 Ml Syringe) 25 gm IVPUSH Q15M PRN; Protocol PRN Reason: per Hypoglycemia Standing Ord. Divalproex Sodium (Divalproex Sodium 250 Mg Tablet.) 250 mg PO BID [facility] Last Admin: 08/09/21 09:25 Dose: 250 mg Documented by: ROSHAN Docusate Sodium (Docusate Sodium 100 Mg Capsule) 100 mg PO DAILY PRN PRN Reason: Constipation Enoxaparin Sodium (Enoxaparin Sodium 150 Mg/Ml Syringe) 150 mg SUBCUT Q12H [facility] Last Admin: 08/09/21 09:25 Dose: 150 mg Documented by: ROSHAN Fluoxetine HCl (Fluoxetine Hcl 20 Mg Capsule) 40 mg PO DAILY [facility] Last Admin: 08/09/21 09:25 Dose: 40 mg Documented by: ROSHAN Folic Acid (Folic Acid 1 Mg Tablet) 1 mg PO DAILY [facility] Last Admin: 08/09/21 09:25 Dose: 1 mg Documented by: ROSHAN Glucose (Glucose Gel 15 Gm Gel..Gram.) 15 gm PO Q15M PRN; Protocol PRN Reason: per Hypoglycemia Standing Ord. Thiamine HCl 500 mg/ Sodium (Chloride) 105 mls @ 210 mls/hr IV TID [facility] Last Infusion: 08/09/21 10:36 Dose: 0 mls/hr Documented by: ROSHAN Albumin Human (Kedbumin 25 %) 100 mls @ 100 mls/hr IV Q6H [facility] Stop: 08/10/21 03:29 Last Infusion: 08/09/21 10:22 Dose: 0 mls/hr Documented by: ROSHAN Insulin Human Lispro (Insulin Lispro 100 Unit/Ml 3 Ml Vial) 0 unit SUBCUT QIDACHS [facility]; Protocol Last Admin: 08/09/21 11:19 Dose: Not Given Documented by: ROSHAN Non-Admin Reason: No Insulin Coverage Metoprolol Tartrate (Metoprolol Tartrate 25 Mg Tablet) 25 mg PO BID [facility]; Protocol Last Admin: 08/09/21 09:25 Dose: 25 mg Documented by: ROSHAN Omeprazole (Omeprazole 40 Mg Capsule.) 40 mg PO DAILY@0630 [facility] Last Admin: 08/09/21 05:39 Dose: 40 mg Documented by: WENDY Ondansetron HCl (Ondansetron Hcl 4 Mg/2 Ml Vial) 4 mg IVPUSH Q8H PRN PRN Reason: Nausea and Vomiting Pharmacy Consult (Consult Rx Perform Med Rec) 1 each MISCELLANE ONCE PRN PRN Reason: Consult order Phenobarbital (Phenobarbital 30 Mg Tablet) 30 mg PO DAILY [facility]; Protocol Stop: 08/13/21 09:01 Phenobarbital (Phenobarbital 30 Mg Tablet) 60 mg PO BID [facility]; Protocol Stop: 08/09/21 21:01 Last Admin: 08/09/21 09:26 Dose: 60 mg Documented by: ROSHAN Phenobarbital (Phenobarbital 30 Mg Tablet) 30 mg PO BID [facility]; Protocol Stop: 08/11/21 21:01 Prednisone (Prednisone 20 Mg Tablet) 40 mg PO DAILY [facility] Last Admin: 08/09/21 09:25 Dose: 40 mg Documented by: ROSHAN Risperidone (Risperidone 0.5 Mg Tablet) 0.5 mg PO BID [facility] Last Admin: 08/07/21 10:59 Dose: Not Given Documented by: MARIAH Non-Admin Reason: See Note Sodium Chloride (0.9 % Sodium Chloride Flush 3 Ml Syringe) 3 ml IVFLUSH QSHIFT [facility] Last Admin: 08/09/21 09:25 Dose: 3 ml Documented by: ROSHAN Thiamine HCl (Thiamine Hcl 100 Mg Tablet) 100 mg PO DAILY [facility] Last Admin: 08/09/21 09:25 Dose: 100 mg Documented by: ROSHAN Labs CBC & Chem 7: 08/08/21 08:10 08/09/21 05:40 Labs: Laboratory Results - last 24 hr 08/08/21 08/08/21 08/08/21 13:47 16:04 20:25 VBG pH 7.40 VBG pCO2 64 VBG pO2 63 VBG HCO3 39 H VBG O2 Saturation 89.0 VBG Base Excess 11.8 Anion Gap Estim Creat Clear Calc Estimated GFR POC Glucose 175 H 231 H Random Glucose Calcium B-Natriuretic Peptide 08/09/21 08/09/21 08/09/21 05:40 05:40 07:06 VBG pH VBG pCO2 VBG pO2 VBG HCO3 VBG O2 Saturation VBG Base Excess Anion Gap 13 Estim Creat Clear Calc 71.3 Estimated GFR 43 POC Glucose 145 H Random Glucose 140 H Calcium 9.3 B-Natriuretic Peptide 454 H 08/09/21 10:54 VBG pH VBG pCO2 VBG pO2 VBG HCO3 VBG O2 Saturation VBG Base Excess Anion Gap Estim Creat Clear Calc Estimated GFR POC Glucose 129 H Random Glucose Calcium B-Natriuretic Peptide Microbiology Microbiology Results: Microbiology 08/06/21 21:12 Blood Culture - Preliminary Blood - Venous No growth after 48 hours. 08/06/21 20:27 Blood Culture - Preliminary Blood - Venous No growth after 48 hours. Assessment and Plan (1) Acute respiratory failure with hypoxia: Status: Acute (2) Acute on chronic respiratory failure with hypoxia and hypercapnia: Status: Acute (3) Alcohol withdrawal: Status: Acute (4) CHF (congestive heart failure): Status: Acute Plan 61-year-old male with past medical history of sleep apnea on CPAP, question of compliance, alcohol abuse with history of alcohol withdrawal, among other problems including AFib diabetes hypertension who presents to the hospital? after being found hypoxic at home. 1. Acute hypoxic hypercapnic respiratory failure-thought to be multifactorial underlying? sleep apnea and obesity hypoventilation syndrome, acute on chf -? no evidence of pneumonia and chest CT although chest CT did show increase in the size of the small left effusion and new small right effusion - ? at this time will continue CPAP at bedtime, continue oxygen as required ? Patient still did not improve much, pH seems maintained, CO2 is similar to before. Seen by Pulmonary - improving as well as mental status ct chest repeated today 08/09/21: Bibasilar atelectasis with a minimal amount of left pleural fluid. No edema. Subacute/chronic rib fractures.? d/w cardio - follow up chest imaging as above , hold lasix for today due to merlin, atelcatsis -?incentive spirometry, chest physiotherapy, nebs, oxygen demand is slowly improving , now on 50 liter/fio2- 30 pulmonary follow up, also added nephro eval for further management of fluid overload in setting of cirrosis/chf/merlin. 2. alcohol withdrawal: -? has significant tremors, asterixis, reports last drink yesterday, history of severe withdrawals ?will added back phenobarbital ? Will continue to monitor CIWa? for withdrawal. 3. toxic metabolic encephalopathy-?? Multifactorial likely secondary to alcohol, multiple psych meds , phenobarbital,? possible post alcohol withdrawal postictal seizure ?seen by Neurology- thought to be ? Possible secondary to above. seems to be improving ? Will continue to monitor CIWA, says hussein, will added back phenobarbital 4.? MERLIN/ hyperkalemia: slightly worsening due to diuresis ?monitor renal function electrolytes closely, will d/w nephro for further use of lasix 5.? diabetes: fs 135-145 satrted diet , fs with coverage. 6. AFib-?started? ? P.o.metoprolol and enoxaparin for now. d/w pharmacy phenobarbital interact with apixiban , so will continue enoxaparin. ?DVT prophylaxis:?? Lovenox. spoke to patient 's Elana:explained her in detailed , she understands and agreement with above plan, if patient consdition worsen -please infrom her phone no [phone] Quality Stroke Does the patient have a stroke diagnosis?: No VTE Prior VTE?: No VTE Risk Level:: Medical - moderate - high VTE Device Contraindication: Treatment Not Indicated VTE Drug Contraindication: N/A - Med Ordered
--- NOTE | 2021-08-09 15:56 | PM.CNNEP ---
History of Present Illness Reason for Consult Consult date: 08/09/21 Reason for consult: MERLIN, Hypervolemia, metabolic alkalosis Chief Complaint Chief complaint: Hypoxic hypercapnic resp failure History of Present Illness Narrative: 61-year-old male with past medical history of CKD (BL S-Cr ~ 1.3-1.4 AFib, alcohol dependency with history of alcohol withdrawal, anxiety, CHF, depression, diabetes, hypertension, sleep apnea, history of Wernicke'is encephalopathy, who presented to [facility] on 08/06 for sob. Difficult to ascertain history from the patient as he is currently on cpap with nasal pillows and is quite delayed in his responses. He admits to prior history of seizures 2/2 withdrawal. He tells me that he typically drinks 1 beer per day and ~ 10 shots of fireball whiskey nightly. Prior history of cardiac arrest in 2019. He arrived to [facility] via EMS and was noted to be hypoxic in 80's. In ED found to have tachycardia, Patient placed on BiPAP for few hours. Initial ABG showed pH was found to be 7.33, with a CO2 of 72, an oxygen of 105, potassium? 5.8, BUN of 31, creatinine of 1.52 with a baseline of 1.1, UA negative, BNP of 500 which is significantly lower than his baseline. Repeat VBG post BiPAP showed improvement in his CO2 as well as pH Since admission, his S-Cr initially improved but is now once again elevated. He continues to make urine with no evidence of obstruction on CT. Review of Systems Constitutional: Reports as per HPI Cardiovascular: Reports as per HPI Respiratory: Reports no additional respiratory complaints Gastrointestinal: Reports as per HPI Reports as per HPI [facility] Past Medical History Medical History Afib Alcohol dependency Anxiety Arthritis CHF (congestive heart failure) Depression Diabetes Fever of unknown origin Gout HTN (hypertension) Left atrial enlargement Seroma due to trauma Sleep apnea Wernicke encephalopathy Family History Family History Father Lung cancer Mother No problems noted. Maternal Aunt History of heart attack Sister No problems noted. Brother Cancer of kidney Brother No problems noted. Brother No problems noted. Brother No problems noted. Brother No problems noted. Brother No problems noted. Other Substance use disorder Surgical History Surgical History No pertinent past surgical history Social History Social History Household Members: Spouse Housing: House Do you presently have visiting nurse or other home services: No Alcohol intake: current Alcohol intake frequency: 0-2 drinks per day Patient Tobacco Use Status: Current everyday Tobacco user Tobacco use type: Cigarette Cigarette Packs Per Day: 1 Cigarettes Per Day: 20.0 e-Cigarette/Vaping Use: Never Used Second Hand Smoke Exposure: Yes service: Yes Current occupational status: unemployed Meds Allergies Allergy/AdvReac Type Severity Reaction Status Date / Time No Known Allergies Allergy Verified 07/13/21 16:54 [No Known Allergies*] Active Medications: Current Medications Acetaminophen (Acetaminophen 325 Mg Tablet) 650 mg PO Q6H PRN PRN Reason: Pain, Mild (Pain Scale 1-3) Albuterol Sulfate (Albuterol Sulfate 90 Mcg 8 Gm Inhaler) 2 puff INHALE Q4H PRN PRN Reason: for wheezing Albuterol/Ipratropium (Albuterol/Iprat 2.5/0.5mg 3 Ml Ampul.Neb) 3 ml INHALE RQ4H WHILE AWAKE [facility] Last Admin: 08/09/21 14:51 Dose: 3 ml Documented by: Albuterol/Ipratropium (Albuterol/Iprat 2.5/0.5mg 3 Ml Ampul.Neb) 3 ml INHALE RQ6H PRN PRN Reason: Shortness of Breath Allopurinol (Allopurinol 100 Mg Tablet) 100 mg PO DAILY [facility] Last Admin: 08/09/21 09:26 Dose: 100 mg Documented by: Amlodipine Besylate (Amlodipine Besylate 5 Mg Tablet) 5 mg PO DAILY [facility]; Protocol Last Admin: 08/09/21 09:26 Dose: 5 mg Documented by: Dextrose (Dextrose 50 % 25 Gm/50 Ml Syringe) 25 gm IVPUSH Q15M PRN; Protocol PRN Reason: per Hypoglycemia Standing Ord. Divalproex Sodium (Divalproex Sodium 250 Mg Tablet.) 250 mg PO BID [facility] Last Admin: 08/09/21 09:25 Dose: 250 mg Documented by: Docusate Sodium (Docusate Sodium 100 Mg Capsule) 100 mg PO DAILY PRN PRN Reason: Constipation Enoxaparin Sodium (Enoxaparin Sodium 150 Mg/Ml Syringe) 150 mg SUBCUT Q12H [facility] Last Admin: 08/09/21 09:25 Dose: 150 mg Documented by: Fluoxetine HCl (Fluoxetine Hcl 20 Mg Capsule) 40 mg PO DAILY [facility] Last Admin: 08/09/21 09:25 Dose: 40 mg Documented by: Folic Acid (Folic Acid 1 Mg Tablet) 1 mg PO DAILY [facility] Last Admin: 08/09/21 09:25 Dose: 1 mg Documented by: Glucose (Glucose Gel 15 Gm Gel..Gram.) 15 gm PO Q15M PRN; Protocol PRN Reason: per Hypoglycemia Standing Ord. Thiamine HCl 500 mg/ Sodium (Chloride) 105 mls @ 210 mls/hr IV TID [facility] Last Infusion: 08/09/21 10:36 Dose: Infused Documented by: Albumin Human (Kedbumin 25 %) 100 mls @ 100 mls/hr IV Q6H [facility] Stop: 08/10/21 03:29 Last Admin: 08/09/21 15:04 Dose: 100 mls/hr Documented by: Insulin Human Lispro (Insulin Lispro 100 Unit/Ml 3 Ml Vial) 0 unit SUBCUT QIDACHS [facility]; Protocol Last Admin: 08/09/21 11:19 Dose: Not Given Documented by: Metoprolol Tartrate (Metoprolol Tartrate 25 Mg Tablet) 25 mg PO BID [facility]; Protocol Last Admin: 08/09/21 09:25 Dose: 25 mg Documented by: Omeprazole (Omeprazole 40 Mg Capsule.) 40 mg PO DAILY@0630 [facility] Last Admin: 08/09/21 05:39 Dose: 40 mg Documented by: Ondansetron HCl (Ondansetron Hcl 4 Mg/2 Ml Vial) 4 mg IVPUSH Q8H PRN PRN Reason: Nausea and Vomiting Pharmacy Consult (Consult Rx Perform Med Rec) 1 each MISCELLANE ONCE PRN PRN Reason: Consult order Phenobarbital (Phenobarbital 30 Mg Tablet) 30 mg PO DAILY [facility]; Protocol Stop: 08/13/21 09:01 Phenobarbital (Phenobarbital 30 Mg Tablet) 60 mg PO BID [facility]; Protocol Stop: 08/09/21 21:01 Last Admin: 08/09/21 09:26 Dose: 60 mg Documented by: Phenobarbital (Phenobarbital 30 Mg Tablet) 30 mg PO BID [facility]; Protocol Stop: 08/11/21 21:01 Prednisone (Prednisone 20 Mg Tablet) 40 mg PO DAILY [facility] Last Admin: 08/09/21 09:25 Dose: 40 mg Documented by: Risperidone (Risperidone 0.5 Mg Tablet) 0.5 mg PO BID [facility] Last Admin: 08/07/21 10:59 Dose: Not Given Documented by: Sodium Chloride (0.9 % Sodium Chloride Flush 3 Ml Syringe) 3 ml IVFLUSH QSHIFT [facility] Last Admin: 08/09/21 09:25 Dose: 3 ml Documented by: Thiamine HCl (Thiamine Hcl 100 Mg Tablet) 100 mg PO DAILY [facility] Last Admin: 08/09/21 09:25 Dose: 100 mg Documented by: Home Medications Medication Instructions Recorded Confirmed Last Taken Type metformin 850 mg tablet 850 mg PO DAILY 03/03/21 08/06/21 Unknown History Physical Exam Vital Signs: Last Vital Signs Temp 98.0 F 08/09/21 15:09 Pulse 84 08/09/21 15:09 Resp 20 08/09/21 15:09 BP 121/78 08/09/21 15:09 Pulse Ox 90 L 08/09/21 15:09 BMI result Body Mass Index 42.2 Const General: cooperative Nutritional Appearance: obese Orientation/consciousness: oriented to person Neck Neck: Yes no JVD Resp Effort & Inspection: normal respiratory effort Cardio Jugular venous distension: no JVD Heart sounds: S1 normal heart sound present and S2 normal heart sound present GI Inspection: Yes distended Auscultation: normal bowel sounds Neuro General: oriented to person Extrem General: Yes edema Results Lab Results Result Diagrams: 08/08/21 08:10 08/09/21 05:40 Lab results: Chemistry 08/06/21 08/07/21 08/08/21 20:27 03:42 08:10 Sodium 137 139 138 Potassium 5.8 H D 4.5 D 4.3 Carbon Dioxide 35 H 34 H 36 H BUN 31 H 28 H 23 H Creatinine 1.52 H 1.25 1.30 Calcium 8.9 D 8.9 9.3 08/09/21 05:40 Sodium 136 Potassium 4.2 Carbon Dioxide 34 H BUN 37 H D Creatinine 1.65 H Calcium 9.3 Hematology 08/06/21 08/07/21 08/08/21 20:27 03:42 08:10 WBC 11.3 H 10.1 9.4 Hgb 13.8 L 14.5 13.8 L Plt Count 155 L 153 L 149 L Urinalysis 08/06/21 22:08 Urine Color YELLOW Urine Appearance CLEAR Urine pH 5.5 Ur Specific Clymer >= 1.030 H Urine Protein 1+ H Urine Glucose (UA) NEG Urine Ketones NEG Urine Blood TRACE Urine Nitrite NEG Ur Leukocyte Esterase NEG Urine RBC 1-4 Urine WBC 1-4 Ur Squamous Epith Cells NONE Assessment and Plan (1) Acute kidney injury: Status: Acute Plan Problem List: MERLIN in setting of CKD with BL 1.3-1.4 mg/dL acute hypoxic hypercapneic respiratory failure. CHF metabolic alkalosis. Plan: MERLIN on CKD: Suspect his BL S-Cr is 1.3 -1.4 mg/dL He presented with noted MERLIN which responded to IVF's. Question chf and volume overload however he actually appears euvolemic on exam. Suggest 500 cc 1/2 NS x 1 and reassess renal function in am. daily renal panel I have added urine studies to assess f-urea. Metabolic alkalosis: He likely has chronic metabolic alkalosis in response to chronic hypoventilation with hypercapnea. History of MJ, obesity, alcohol abuse. I have added Urine studies to include urine chloride, as well as anna and renin levels. CHF: BNP only mildly elevated. Much lower than prior noted BL values. I do not feel he is currently in CHF exacerbation. Nephrology will continue to follow along. Thank you for allowing me to participate in the care of this patient. Procedures Date of Service Date of Service: 08/09/21
[2021-08-09 16:05] LABS: Glucose, Whole Blood 212 mg/dL (60-115)
[2021-08-09 17:27] LABS: Potassium Urine Random 47.6 mmol/L
[2021-08-09 19:45] LABS: Glucose, Whole Blood 190 mg/dL (60-115)
[2021-08-10] VITALS (11 sets, daily range): BP systolic 129–186; BP diastolic 76–100; PULSE 68–82; RESP 13–20; TEMP 36.3–37.1; O2SAT 90–96; BMI 42.1
--- NOTE | 2021-08-10 | EEG_ITS ---
The waking background activity consists of low voltage 6 hertz diffuse theta intermixed anteriorly with low-voltage fast frequencies. The patient is agitated and uncooperative. Photic stimulation is omitted. IMPRESSION: This is an abnormal electroencephalogram due to diffuse background slowing consistent with a diffuse encephalopathic process. MD GIGI White/NILTON / [id number]
[2021-08-10] MEDS: Albumin Human 25 % 100 ML IV ×3 (03:47→19:45)
[2021-08-10] MEDS: Omeprazole 40 MG CAPSULE.DR PO (06:28)
[2021-08-10 06:51] LABS: B Type Natriuretic Peptide 503 pg/mL (<100)
[2021-08-10 07:08] LABS: Anion Gap 14 (12-20); Blood Urea Nitrogen 42 mg/dL (9-16); Calcium 9.2 mg/dL (8.4-10.2); Carbon Dioxide 33 mmol/L (22-29); Chloride 94 mmol/L (96-108); Creatinine Clr Calc Pharmacy 83.4; Estimated Glomerular Filt Rate 51; Glucose Random 114 mg/dL (60-115); Potassium 4.6 mmol/L (3.3-5.1); Sodium 136 mmol/L (135-145)
[2021-08-10 07:32] LABS: Glucose, Whole Blood 116 mg/dL (60-115)
[2021-08-10] MEDS: Albuterol/Iprat 2.5/0.5MG 3 ML AMPUL.NEB INHALE ×3 (07:57→19:55)
--- NOTE | 2021-08-10 08:00 | P.PNIM_ITS ---
Subjective Subjective Date of Service: 08/10/21 Interval History: hypoxia Review of Systems seems slightly sleep in the morning but improving over the day Denies any chest pain or abdominal pain or fever or chills Still on high-flow this morning Last night did not want to use CPAP, encouraged to use CPAP. Physical Exam Vital Signs: Vital Signs: Last Vital Signs Temp 97.3 F 08/10/21 07:24 Pulse 77 08/10/21 07:24 Resp 19 08/10/21 07:24 BP 166/100 H 08/10/21 07:24 Pulse Ox 96 08/10/21 07:24 BMI result Body Mass Index 42.1 ?Appearance:aox3 , follows simple commands ? cvs: rrr, [id number] , no murmur res: clear to auscultation ,no rhonchii or wheezing abd: no rebound or guarding ,nt, bs present, has probable ascitis . ext pulses present , no cyanosis . neuro: moves all ext, nonfocal.seems ch sick Objective Data Active Medications Acetaminophen (Acetaminophen 325 Mg Tablet) 650 mg PO Q6H PRN PRN Reason: Pain, Mild (Pain Scale 1-3) Albuterol Sulfate (Albuterol Sulfate 90 Mcg 8 Gm Inhaler) 2 puff INHALE Q4H PRN PRN Reason: for wheezing Albuterol/Ipratropium (Albuterol/Iprat 2.5/0.5mg 3 Ml Ampul.Neb) 3 ml INHALE RQ4H WHILE AWAKE COUNT INCLUDES THE [facility] Last Admin: 08/10/21 07:57 Dose: 3 ml Documented by: ARIEL Albuterol/Ipratropium (Albuterol/Iprat 2.5/0.5mg 3 Ml Ampul.Neb) 3 ml INHALE RQ6H PRN PRN Reason: Shortness of Breath Allopurinol (Allopurinol 100 Mg Tablet) 100 mg PO DAILY COUNT INCLUDES THE [facility] Last Admin: 08/09/21 09:26 Dose: 100 mg Documented by: ROSHAN Amlodipine Besylate (Amlodipine Besylate 5 Mg Tablet) 5 mg PO DAILY COUNT INCLUDES THE [facility]; Protocol Last Admin: 08/09/21 09:26 Dose: 5 mg Documented by: ROSHAN Dextrose (Dextrose 50 % 25 Gm/50 Ml Syringe) 25 gm IVPUSH Q15M PRN; Protocol PRN Reason: per Hypoglycemia Standing Ord. Divalproex Sodium (Divalproex Sodium 250 Mg Tablet.) 250 mg PO BID COUNT INCLUDES THE [facility] Last Admin: 08/09/21 20:48 Dose: 250 mg Documented by: SIMBA Docusate Sodium (Docusate Sodium 100 Mg Capsule) 100 mg PO DAILY PRN PRN Reason: Constipation Enoxaparin Sodium (Enoxaparin Sodium 150 Mg/Ml Syringe) 150 mg SUBCUT Q12H COUNT INCLUDES THE [facility] Last Admin: 08/09/21 19:45 Dose: 150 mg Documented by: SIMBA Fluoxetine HCl (Fluoxetine Hcl 20 Mg Capsule) 40 mg PO DAILY COUNT INCLUDES THE [facility] Last Admin: 08/09/21 09:25 Dose: 40 mg Documented by: IGLESM Folic Acid (Folic Acid 1 Mg Tablet) 1 mg PO DAILY COUNT INCLUDES THE [facility] Last Admin: 08/09/21 09:25 Dose: 1 mg Documented by: IGLESM Glucose (Glucose Gel 15 Gm Gel..Gram.) 15 gm PO Q15M PRN; Protocol PRN Reason: per Hypoglycemia Standing Ord. Thiamine HCl 500 mg/ Sodium (Chloride) 105 mls @ 210 mls/hr IV TID COUNT INCLUDES THE [facility] Last Infusion: 08/09/21 21:28 Dose: 0 mls/hr Documented by: SIMBA Insulin Human Lispro (Insulin Lispro 100 Unit/Ml 3 Ml Vial) 0 unit SUBCUT QIDACHS COUNT INCLUDES THE [facility]; Protocol Last Admin: 08/10/21 07:43 Dose: Not Given Documented by: DOBROB Non-Admin Reason: No Insulin Coverage Metoprolol Tartrate (Metoprolol Tartrate 25 Mg Tablet) 25 mg PO BID COUNT INCLUDES THE [facility]; Protocol Last Admin: 08/09/21 20:48 Dose: 25 mg Documented by: SIMBA Omeprazole (Omeprazole 40 Mg Capsule.) 40 mg PO DAILY@0630 COUNT INCLUDES THE [facility] Last Admin: 08/10/21 06:28 Dose: 40 mg Documented by: SIMBA Ondansetron HCl (Ondansetron Hcl 4 Mg/2 Ml Vial) 4 mg IVPUSH Q8H PRN PRN Reason: Nausea and Vomiting Pharmacy Consult (Consult Rx Perform Med Rec) 1 each MISCELLANE ONCE PRN PRN Reason: Consult order Phenobarbital (Phenobarbital 30 Mg Tablet) 30 mg PO DAILY COUNT INCLUDES THE [facility]; Protocol Stop: 08/13/21 09:01 Phenobarbital (Phenobarbital 30 Mg Tablet) 30 mg PO BID COUNT INCLUDES THE [facility]; Protocol Stop: 08/11/21 21:01 Prednisone (Prednisone 20 Mg Tablet) 40 mg PO DAILY COUNT INCLUDES THE [facility] Last Admin: 08/09/21 09:25 Dose: 40 mg Documented by: ROSHAN Risperidone (Risperidone 0.5 Mg Tablet) 0.5 mg PO BID COUNT INCLUDES THE [facility] Last Admin: 08/07/21 10:59 Dose: Not Given Documented by: MARIAH Non-Admin Reason: See Note Sodium Chloride (0.9 % Sodium Chloride Flush 3 Ml Syringe) 3 ml IVFLUSH QSHIFT COUNT INCLUDES THE [facility] Last Admin: 08/09/21 20:48 Dose: 3 ml Documented by: SIMBA Thiamine HCl (Thiamine Hcl 100 Mg Tablet) 100 mg PO DAILY COUNT INCLUDES THE [facility] Last Admin: 08/09/21 09:25 Dose: 100 mg Documented by: ROSHAN Labs CBC & Chem 7: 08/08/21 08:10 08/10/21 05:48 Labs: Laboratory Results - last 24 hr 08/09/21 08/09/21 08/09/21 10:54 16:02 17:09 Anion Gap Estim Creat Clear Calc Estimated GFR POC Glucose 129 H 212 H Random Glucose Calcium B-Natriuretic Peptide Ur Random Sodium 67.0 Ur Random Potassium 47.6 Ur Random Chloride 30.0 08/09/21 08/10/21 08/10/21 19:42 05:48 05:48 Anion Gap 14 Estim Creat Clear Calc 83.4 Estimated GFR 51 POC Glucose 190 H Random Glucose 114 Calcium 9.2 B-Natriuretic Peptide 503 H Ur Random Sodium Ur Random Potassium Ur Random Chloride 08/10/21 07:27 Anion Gap Estim Creat Clear Calc Estimated GFR POC Glucose 116 H Random Glucose Calcium B-Natriuretic Peptide Ur Random Sodium Ur Random Potassium Ur Random Chloride Assessment and Plan (1) Acute respiratory failure with hypoxia: Status: Acute (2) Acute on chronic respiratory failure with hypoxia and hypercapnia: Status: Acute (3) Alcohol withdrawal: Status: Acute (4) CHF (congestive heart failure): Status: Acute Plan 61-year-old male with past medical history of sleep apnea on CPAP, question of compliance, alcohol abuse with history of alcohol withdrawal, among other problems including AFib diabetes hypertension who presents to the hospital? after being found hypoxic at home. 1. Acute hypoxic hypercapnic respiratory failure-thought to be multifactorial underlying? sleep apnea and obesity hypoventilation syndrome, acute on chf -? no evidence of pneumonia and chest CT although chest CT did show increase in the size of the small left effusion and new small right effusion - ? at this time will continue CPAP at bedtime, continue oxygen as required ? Patient still did not improve much, pH seems maintained, CO2 is similar to before. Seen by Pulmonary - improving as well as mental status ct chest repeated today 08/09/21: Bibasilar atelectasis with a minimal amount of left pleural fluid. No edema. Subacute/chronic rib fractures.? vbg today ph seems compensated , co2 simlar as previous. d/w cardio - follow up chest imaging as above ,hold lasix for today due to karuna, moniter i/o , daily weights, bnp , echo ordered. atelcatsis -?incentive spirometry, chest physiotherapy, nebs,oxygen demand is slowly improving -d/w cpap complance and respiratory will try wean further from high flow pulmonary reconsulted , hypoxia improving slowly . 2. alcohol withdrawal:improving -? has significant tremors, asterixis, reports last drink yesterday, history of severe withdrawals continue phenobarbital and monitor CIWa?. 3. toxic metabolic encephalopathy-?? Multifactorial likely secondary to alcohol, multiple psych meds , phenobarbital,? possible post alcohol withdrawal postictal seizure ?seen by Neurology- thought to be ? Possible secondary to above. seems to be improving ? Will continue to monitor CIWA, says hussein, will added back phenobarbital seen by neuro : Multifactorial metabolic encephalopathy : probably hypoxia and hypercapnia. R/O alcohol withdrawal. Possible post ictal from alcohol withdrawal Sz. patient seems menatl status improved significantly we added eeg 4.? Karuna: slightly imrpoving continue albumin q6hr iv for 3 days considering underlying liver dis ?monitor renal function electrolytes closely, will d/w nephro for further use of lasix also added nephro eval for further management of fluid overload in setting of cirrosis/chf/karuna. 5.? diabetes: fs 120-190. satrted diet , fs with coverage. 6. AFib-?started? ? P.o.metoprolol and enoxaparin for now. 7. liver cirrosis /acitis : given lasix for ascitisand possible chf intialy patient developed karuna hold lasix for now Gi followup. d/w pharmacy phenobarbital interact with apixiban , so will continue enoxaparin. ?DVT prophylaxis:?? Lovenox. spoke to patient 's Elana again today :updated in detail-phone no [phone] Quality Stroke Does the patient have a stroke diagnosis?: No VTE Prior VTE?: No VTE Risk Level:: Medical - moderate - high VTE Device Contraindication: Treatment Not Indicated VTE Drug Contraindication: N/A - Med Ordered
[2021-08-10] MEDS: Enoxaparin Sodium 150 MG/ML SYRINGE SUBCUT ×2 (08:22→19:35)
[2021-08-10] MEDS: predniSONE 20 MG TABLET 40 MG PO (08:22)
[2021-08-10] MEDS: allopurinoL 100 MG TABLET PO (08:23)
[2021-08-10] MEDS: Folic Acid 1 MG TABLET PO (08:23)
[2021-08-10] MEDS: FLUoxetine HCl 20 MG CAPSULE 40 MG PO (08:23)
[2021-08-10] MEDS: Divalproex Sodium 250 MG TABLET.DR PO ×2 (08:23→21:40)
[2021-08-10] MEDS: amLODIPine Besylate 5 MG TABLET PO (08:23)
[2021-08-10] MEDS: Metoprolol Tartrate 25 MG TABLET PO ×2 (08:23→21:40)
[2021-08-10] MEDS: PHENobarbitaL 30 MG TABLET PO ×2 (08:25→21:40)
[2021-08-10] MEDS: Thiamine HCL 500 MG in 0.9 % Sodium Chloride 100 ML 210 MG IV (09:49)
--- NOTE | 2021-08-10 09:59 | PM.PNNEP ---
Subjective Subjective Date of Service: 08/11/21 Interval history: Events noted Physical Exam Vital Signs: Vital Signs: Last Vital Signs Temp 97.3 F 08/10/21 07:24 Pulse 82 08/10/21 08:01 Resp 20 08/10/21 08:01 BP 166/100 H 08/10/21 07:24 Pulse Ox 96 08/10/21 07:24 BMI result Body Mass Index 42.1 Neck: Neck: Yes supple Resp: Auscultation: clear to auscultation bilaterally Cardio: Jugular venous distension: no JVD Palpation: no palpable S3 Neuro: Motor exam (neuro): no asterixis Objective Data Labs CBC & Chem 7: 08/11/21 05:58 08/11/21 05:58 Labs: Laboratory Results - last 24 hr 08/09/21 08/09/21 08/09/21 10:54 16:02 17:09 Sodium Potassium Chloride Carbon Dioxide Anion Gap BUN Creatinine Estim Creat Clear Calc Estimated GFR POC Glucose 129 H 212 H Random Glucose Calcium B-Natriuretic Peptide Ur Random Sodium 67.0 Ur Random Potassium 47.6 Ur Random Chloride 30.0 08/09/21 08/10/21 08/10/21 19:42 05:48 05:48 Sodium 136 Potassium 4.6 Chloride 94 L Carbon Dioxide 33 H Anion Gap 14 BUN 42 H Creatinine 1.41 H Estim Creat Clear Calc 83.4 Estimated GFR 51 POC Glucose 190 H Random Glucose 114 Calcium 9.2 B-Natriuretic Peptide 503 H Ur Random Sodium Ur Random Potassium Ur Random Chloride 08/10/21 07:27 Sodium Potassium Chloride Carbon Dioxide Anion Gap BUN Creatinine Estim Creat Clear Calc Estimated GFR POC Glucose 116 H Random Glucose Calcium B-Natriuretic Peptide Ur Random Sodium Ur Random Potassium Ur Random Chloride Microbiology Microbiology Results: Microbiology 08/06/21 21:12 Blood - Venous Blood Culture - Preliminary No growth after 48 hours. 08/06/21 20:27 Blood - Venous Blood Culture - Preliminary No growth after 48 hours. Procedures Date of Service Date of Service: 08/10/21 Assessment & Plan Assessment and plan (1) MERLIN (acute kidney injury): Status: Acute Plan MERLIN in setting of CKD with BL 1.3-1.4 mg/dL acute hypoxic hypercapneic respiratory failure. CHF metabolic alkalosis. Plan: MERLIN on CKD: Suspect his BL S-Cr is 1.3 -1.4 mg/dL He presented with noted MERLIN which responded to IVF's. Question chf and volume overload however he actually appears euvolemic on exam. Suggest 500 cc 1/2 NS x 1 and reassess renal function in am. daily renal panel I have added urine studies to assess f-urea. Resp acidosis with Metabolic alkalsis chronic hypoventilation with hypercapnea. History of MJ, obesity, alcohol abuse. I have added Urine studies to include urine chloride, as well as anna and renin levels. CHF: BNP only mildly elevated. Much lower than prior noted BL values. I do not feel he is currently in CHF exacerbation. Cr is marginally better Time Spent With Patient Time: Total time spent is greater than 50% in coordination of care (as documented) at patient's floor/unit and/or counseling patient: Time with patient: 15 - 24 minutes Progress Note: Quality Stroke Does the patient have a stroke diagnosis?: No
--- NOTE | 2021-08-10 10:18 | MHC.CM.PN ---
CM delivered VA/IMM to Patient, who was sleeping/snoring soundly, and left original at bedside for his review. CM will check back for any questions.
[2021-08-10 11:12] LABS: Venous Blood Gas Refer to POC result
[2021-08-10 11:12] LABS: VBG Base Excess 10.9 mmol/L; VBG HCO3 38 mmol/L (22-26); VBG pCO2 63 mmHg; VBG pH 7.39 (7.32-7.43); VBG pO2 81 mmHg
[2021-08-10 11:18] LABS: Glucose, Whole Blood 127 mg/dL (60-115)
--- NOTE | 2021-08-10 11:45 | MHC.CM.PN ---
Per ROUNDS discussion, Patient is not yet medically cleared for dc (IV Thiamine/ETOH Withdrawal);Home is the goal for dc and CM will follow for possible need to adjust the dc plan.
--- NOTE | 2021-08-10 11:54 | CONS_ITS ---
DATE OF SERVICE: 08/10/2021 HISTORY OF PRESENT ILLNESS: This patient was seen by me this morning for pulmonary consultation and recommendation. He has been admitted since 08/07/2021. As per history noted at the time of admission, he presented with acute shortness of breath and change in mental status. The patient has underlying multiple comorbidities including morbid obesity, obstructive sleep apnea diagnosed in 2012, but his history of using CPAP is not fully available, probably has been noncompliant. The patient has history of alcohol dependency. Chronic anxiety and depression. Chronic congestive heart failure. Diabetes mellitus. Hypertension. He has had chronic mental disorder. As noted above, he was admitted with acute shortness of breath and his blood gases at the time of his evaluation in the ER were grossly abnormal, so he was started on BiPAP therapy, which improved his pCO2 to some extent. The patient has been admitted to regular floor and has been treated with oxygen supplementation, treated for congestive heart failure. Also treated for pneumonia and COPD exacerbation. At this point, his oxygen requirement has decreased. He is on nasal cannula but not keeping it on all the times. He did converse with me, and he is aware of the fact that he has obstructive sleep apnea. He told me that he used his CPAP machine early on, but then, he lost his 1st CPAP machine, then he got another one and he is not sure if he is using or not. From the circumstances, it appears that he really does not use the CPAP at home. His initial sleep study in 2012 including CPAP titration has indicated that he had severe obstructive sleep apnea and required full face mask of large size with pressure of 17 cm. Recently, no history of any fever or chills. His COVID test has been negative. More details not available at this time. PHYSICAL EXAMINATION: GENERAL: 61 years old morbidly obese gentleman, is lying flat in bed. He has a very round and big face. HEENT: Throat cannot be examined. SKIN: Color is slightly bluish. NECK: Short and obese. CHEST: Very obese. Percussion note not perceptible. Breath sounds are very distant and a few inspiratory crackles heard over the basilar areas. CARDIAC: Sounds are also distant. PMI cannot be repeated. ABDOMEN: Grossly obese, but soft and nontender. EXTREMITIES: Show 1+ pitting edema. LABORATORY DATA: On admission, white cell count 11.3, hemoglobin 13.8. Blood gases, pH 7.33, pCO2 72, and PO2 of 105. BNP was 500, bicarb 37. Repeat blood gas on 08/08 is as follows: PH 7.39, pCO2 63, and PO2 of 85. CT scan of the chest shows small lung volumes and bibasilar atelectasis, but no definite pneumonia. CLINICAL IMPRESSION: 1. Morbid obesity. 2. Obstructive sleep apnea, not treated. 3. Chronic hypoventilation syndrome associated with morbid obesity and possible chronic obstructive pulmonary disease. 4. Associated problem of possible congestive heart failure, seems to have improved. RECOMMENDATIONS: I think we need to start this patient on CPAP therapy at night. Because of his elevated pCO2, he would do better with a BiPAP with pressure of 20/10 cm will be good. He should be on BiPAP at least at nighttime. O2 2 to 4 L/minute just to keep O2 saturation above 90%. He is on IV Solu-Medrol and that can be tapered down over the next 4 to 5 days. Once the patient becomes more cooperative, he should be asked to do deep breathing exercises. At this time, Isabela gupta q.6 hours while awake would be helpful. Thank you very much for asking me to see this patient. MD JOSSY Gabriel/NILTON / [phone]
--- NOTE | 2021-08-10 12:30 | CA_ITS ---
Transthoracic Echocardiogram Patient (Last, First, Middle): Esteban Galindo F Gender: Male Date of : 1960 Age: 61 Procedure Date: 08/10/2021 Procedure Type: Transthoracic Echocardiogram Location: [facility] [place] Height: 185.42 cm Weight: 144.7 kg BSA: 2.62 m2 Heart Rate: bpm BP: 132 / 78 mmHg Face Boss: Referring MD: Josie Tapia MD Symptoms: chf Study Quality: Technically Difficult due to obesity ECG Rhythm: Sinus Conclusions: - 1. Normal LV systolic function with moderate LVH 2. Moderately dilated RV with normal TAPSE 3. Poor visulaiztion of cardiac valves with normal cardiac valvular Dopplers 4. Mildly elevated RVSP with significantly elevated RA pressures 5. Small pericardial effusion noted near LV Findings Procedure Information Contrast agent, definity, is being given per protocol without apparent complications. Left Ventricle Normal left ventricular cavity size. There is moderately increased left ventricular wall thickness. The left ventricular systolic function is normal. The visually estimated ejection fraction is between 60-65%. Diastolic function is indeterminate on the basis of available data. E/E prime ratio is between 8 and 15 consistent with indeterminate filling pressures. Right Ventricle Moderately increased right ventricular cavity size. There is normal right ventricular systolic function. Atria The left atrium is mildly dilated. Interatrial shunt cannot be excluded. The right atrium was not well visualized. Aortic Valve The aortic valve was not well visualized. There is no aortic valve stenosis. There is mild aortic valve regurgitation. Mitral Valve The mitral valve was not well visualized. There is trace mitral valve regurgitation. There is no mitral valve stenosis. Pulmonic Valve The pulmonic valve was not well visualized. Tricuspid Valve Significantly elevated right atrial pressure. Great Vessels The aorta was not well visualized. The pulmonary artery was not well visualized. Venous The inferior vena cava is severely dilated and collapses less than 50% with inspiration. Pericardium/Pleural There is a small loculated pericardial effusion overlying the left ventricle. Prior Study Comparison No significant change compared to prior study dated: 06/25/2020. Measurements 2D Linear Measurements IVSd: 1.55 0.6-0.9/0.6-1.0 cm LVIDd: 5.12 3.9-5.3/4.2-5.9 cm LVIDd Index: 1.95 2.4-3.2/2.2-3.1 cm/m2 LVIDs: 3.74 2.0-3.6 cm LVPWd: 1.55 0.7-1.1 cm Ao Root: 3.50 2.1-3.5 cm LA Diam: 5.60 2.7-3.8/3.0-4.0 cm LAIDs Index: 2.14 1.5-2.3 cm/m2 LV Mass: 438.04 67-162/88-224 g LV Mass Index: 167.19 43-95/49-115 g/m2 LVOT Diam: 2.40 3.0+(-)1.3 cm 2D Systolic Function EF 4C: 54.80 >55% EF 2C: 51.20 >55% Mitral Valve MV Pk E: 1.25 MV Decel Time: 210.00 E'Lateral: 13.10 E'Medial: 7.40 E/E' Med: 16.90 E/E' Lat: 9.50 PHT: 61.00 MVA PHT: 3.61 Decel [place]: 5.96 Aortic Valve AoV Pk Yuval: 2.10 AoV Mn Yuval: 1.49 AoV VTI: 0.45 AoV Pk Grad: 18.00 Aov Mn Grad: 10.00 STONE Cont.VTI: 2.05 LVOT LVOT Pk Yuval: 0.91 LVOT Mn Yuval: 0.58 LVOT VTI: 0.20 LVOT Pk Grad: 3.00 LVOT Mn Grad: 2.00 LVOT Diam: 2.40 LVOT Area: 4.52 Diastolic Function MV Pk E: 1.25 E'Medial: 7.40 E/E' Med: 16.90 E' Laterial: 13.10 E/E' Lat: 9.50 Tricuspid Valve TR Pk Yuval: 2.67 TR Pk Grad: 29.00 RA Press: 15.00 RVSP: 44.00 Great Vessels Aorta Ao Root-2D: 3.50 2.0-3.7 cm Ao Asc: 3.90 2.1-3.4 cm Pulmonary Valve PV Pk Yuval: 0.87 Peak PV Grad: 3.00 Updated in Other Vendor System with Status of Final Liborio Smith MD electronically signed on 08/10/2021 5:55:18 PM with status of Final
[2021-08-10 16:54] LABS: Glucose, Whole Blood 189 mg/dL (60-115)
[2021-08-10 19:00] LABS: Creatinine Urine 82.52 mg/dL
[2021-08-10 20:57] LABS: Glucose, Whole Blood 179 mg/dL (60-115)
[2021-08-11] VITALS (10 sets, daily range): BP systolic 117–162; BP diastolic 55–95; PULSE 64–86; RESP 16–22; TEMP 36.1–36.7; O2SAT 90–97; BMI 42.5
[2021-08-11] MEDS: Albumin Human 25 % 100 ML IV ×2 (02:22→09:06)
[2021-08-11] MEDS: 0.9 % Sodium Chloride Flush 3 ML SYRINGE IVFLUSH ×2 (02:22→09:07)
[2021-08-11] MEDS: Acetaminophen 325 MG TABLET 650 MG PO (04:00)
[2021-08-11] MEDS: Omeprazole 40 MG CAPSULE.DR PO (05:59)
[2021-08-11] MEDS: oxyCODONE HCl Immed Release 5 MG TABLET PO (06:00)
--- NOTE | 2021-08-11 06:45 | PM.EVENT ---
Event Note Date of Service: 08/12/21 Event Note: Right Knee pain: no injury; pain started after trying toget on to bed. Knee x ray -ordered. Johann.
--- NOTE | 2021-08-11 06:47 | PC.NURSE ---
Pt c/o right knee pain and moaning and swearing loudly. He got oob to recliner last night and did well with 1 standby asst. Getting BTB he needed 3 assists and c/o right knee pain. MD notified and one time dose of oxycodone 5 mg po given. Pt continues to moan with no effect from pain med. Md notified again and knee xray ordered with a one time dose of dilaudid.
[2021-08-11 06:48] LABS: Hematocrit 41.3 % (42.0-52.0); Hemoglobin 12.8 g/dl (14.0-18.0); Mean Corpuscular Hemoglobin 29.2 pg (27.0-33.0); Mean Corpuscular Volume 94.3 fL (80.0-98.0); Mean Platelet Volume 11.2 fL (9.4-12.4); Platelet Count 170 X10*3/uL (160-400); Red Blood Count 4.38 X10*6/uL (4.60-5.80); Red Cell Distribution Width 14.6 % (11.0-16.0); White Blood Count 10.8 X10*3/uL (4.8-10.8)
[2021-08-11 07:10] LABS: INTERNATIONAL NORM RATIO 1.2 (0.9-1.1); Prothrombin Time 13.6 SEC (9.9-13.0)
[2021-08-11 07:19] LABS: Alanine Aminotransferase 16 U/L (0-40); Albumin Level 4.6 g/dL (3.5-5.0); Alkaline Phosphatase 72 U/L (39-117); Anion Gap 13 (12-20); Aspartate Amino Transferase 25 U/L (5-37); Bilirubin Direct 0.3 mg/dL (0.0-0.5); Bilirubin Total 0.5 mg/dL (0.0-1.0); Blood Urea Nitrogen 48 mg/dL (9-16); Calcium 9.5 mg/dL (8.4-10.2); Carbon Dioxide 32 mmol/L (22-29); Chloride 96 mmol/L (96-108); Creatinine Clr Calc Pharmacy 87.5; Estimated Glomerular Filt Rate 54; Glucose Random 164 mg/dL (60-115); Potassium 4.4 mmol/L (3.3-5.1); Sodium 137 mmol/L (135-145); Total Protein 7.9 g/dL (6.5-8.0)
[2021-08-11] MEDS: HYDROmorphone HCl 0.5 MG/0.5 ML SYRINGE IVPUSH (07:22)
[2021-08-11 07:26] LABS: Glucose, Whole Blood 138 mg/dL (60-115)
[2021-08-11] MEDS: Albuterol/Iprat 2.5/0.5MG 3 ML AMPUL.NEB INHALE ×3 (07:56→19:06)
[2021-08-11] MEDS: Metoprolol Tartrate 25 MG TABLET PO ×2 (09:06→21:07)
[2021-08-11] MEDS: Enoxaparin Sodium 150 MG/ML SYRINGE SUBCUT ×2 (09:06→21:07)
[2021-08-11] MEDS: Divalproex Sodium 250 MG TABLET.DR PO ×2 (09:07→21:07)
[2021-08-11] MEDS: Folic Acid 1 MG TABLET PO (09:07)
[2021-08-11] MEDS: allopurinoL 100 MG TABLET PO (09:07)
[2021-08-11] MEDS: PHENobarbitaL 30 MG TABLET PO ×3 (09:07→21:07)
[2021-08-11] MEDS: predniSONE 20 MG TABLET 40 MG PO (09:07)
[2021-08-11] MEDS: FLUoxetine HCl 20 MG CAPSULE 40 MG PO (09:07)
[2021-08-11] MEDS: amLODIPine Besylate 5 MG TABLET PO (09:07)
--- NOTE | 2021-08-11 10:29 | PM.PNNEP ---
Subjective Subjective Date of Service: 08/11/21 Interval history: Events noted Ill appearing Physical Exam Vital Signs: Vital Signs: Last Vital Signs Temp 97.1 F 08/11/21 07:51 Pulse 79 08/11/21 07:56 Resp 18 08/11/21 07:56 BP 134/61 08/11/21 07:51 Pulse Ox 94 08/11/21 07:51 BMI result Body Mass Index 42.5 Neck: Neck: Yes supple Resp: Auscultation: clear to auscultation bilaterally Cardio: Jugular venous distension: no JVD Palpation: no palpable S3 Neuro: Motor exam (neuro): no asterixis Objective Data Labs CBC & Chem 7: 08/11/21 05:58 08/11/21 05:58 Labs: Laboratory Results - last 24 hr 08/10/21 08/10/21 08/10/21 10:56 11:06 16:14 WBC RBC Hgb Hct MCV MCH MCHC RDW Plt Count MPV Absolute Nucleated RBC Nucleated RBC % (auto) PT INR VBG pH 7.39 VBG pCO2 63 VBG pO2 81 VBG HCO3 38 H VBG O2 Saturation 95.0 VBG Base Excess 10.9 Sodium Potassium Chloride Carbon Dioxide Anion Gap BUN Creatinine Estim Creat Clear Calc Estimated GFR POC Glucose 127 H 189 H Random Glucose Calcium Total Bilirubin Direct Bilirubin AST ALT Alkaline Phosphatase Total Protein Albumin Urine Creatinine 08/10/21 08/10/21 08/11/21 17:00 20:44 05:58 WBC 10.8 RBC 4.38 L Hgb 12.8 L Hct 41.3 L MCV 94.3 MCH 29.2 MCHC 31.0 RDW 14.6 Plt Count 170 MPV 11.2 Absolute Nucleated RBC 0.000 Nucleated RBC % (auto) 0.0 PT INR VBG pH VBG pCO2 VBG pO2 VBG HCO3 VBG O2 Saturation VBG Base Excess Sodium Potassium Chloride Carbon Dioxide Anion Gap BUN Creatinine Estim Creat Clear Calc Estimated GFR POC Glucose 179 H Random Glucose Calcium Total Bilirubin Direct Bilirubin AST ALT Alkaline Phosphatase Total Protein Albumin Urine Creatinine 82.52 08/11/21 08/11/21 08/11/21 05:58 05:58 07:20 WBC RBC Hgb Hct MCV MCH MCHC RDW Plt Count MPV Absolute Nucleated RBC Nucleated RBC % (auto) PT 13.6 H INR 1.2 H VBG pH VBG pCO2 VBG pO2 VBG HCO3 VBG O2 Saturation VBG Base Excess Sodium 137 Potassium 4.4 Chloride 96 Carbon Dioxide 32 H Anion Gap 13 BUN 48 H Creatinine 1.35 Estim Creat Clear Calc 87.5 Estimated GFR 54 POC Glucose 138 H Random Glucose 164 H D Calcium 9.5 Total Bilirubin 0.5 Direct Bilirubin 0.3 AST 25 D ALT 16 Alkaline Phosphatase 72 D Total Protein 7.9 Albumin 4.6 D Urine Creatinine Microbiology Microbiology Results: Microbiology 08/06/21 21:12 Blood - Venous Blood Culture - Preliminary No growth after 48 hours. 08/06/21 20:27 Blood - Venous Blood Culture - Preliminary No growth after 48 hours. Procedures Date of Service Date of Service: 08/11/21 Assessment & Plan Assessment and plan (1) MERLIN (acute kidney injury): Status: Acute Plan MERLIN in setting of CKD with BL 1.3-1.4 mg/dL acute hypoxic hypercapneic respiratory failure. CHF metabolic alkalosis. Plan: MERLIN on CKD: Suspect his BL S-Cr is 1.3 -1.4 mg/dL He presented with noted MERLIN which responded to IVF's. Question chf and volume overload however he actually appears euvolemic on exam. Suggest 500 cc 1/2 NS x 1 and reassess renal function in am. daily renal panel Resp acidosis with Metabolic alkalsis chronic hypoventilation with hypercapnea. History of MJ, obesity, alcohol abuse. CHF: BNP only mildly elevated. Much lower than prior noted BL values. I do not feel he is currently in CHF exacerbation. Cr is marginally better Time Spent With Patient Time: Total time spent is greater than 50% in coordination of care (as documented) at patient's floor/unit and/or counseling patient: Time with patient: 15 - 24 minutes Progress Note: Quality Stroke Does the patient have a stroke diagnosis?: No
[2021-08-11] MEDS: Thiamine HCL 250 MG in 0.9 % Sodium Chloride 100 ML 210 MG IV (10:56)
[2021-08-11 10:59] LABS: Glucose, Whole Blood 133 mg/dL (60-115)
--- NOTE | 2021-08-11 12:19 | HO.PM.IMPN ---
Subjective Subjective Date of Service: 08/11/21 Physical Exam Vital Signs: Vital Signs: Last Vital Signs Temp 96.9 F 08/11/21 11:36 Pulse 64 08/11/21 11:36 Resp 20 08/11/21 11:36 BP 123/60 08/11/21 11:36 Pulse Ox 93 08/11/21 11:36 BMI result Body Mass Index 42.5 Objective Data Active Medications Acetaminophen (Acetaminophen 325 Mg Tablet) 650 mg PO Q6H PRN PRN Reason: Pain, Mild (Pain Scale 1-3) Last Admin: 08/11/21 04:00 Dose: 650 mg Documented by: JULIUS Albuterol Sulfate (Albuterol Sulfate 90 Mcg 8 Gm Inhaler) 2 puff INHALE Q4H PRN PRN Reason: for wheezing Albuterol/Ipratropium (Albuterol/Iprat 2.5/0.5mg 3 Ml Ampul.Neb) 3 ml INHALE RQ4H WHILE AWAKE [facility] Last Admin: 08/11/21 11:30 Dose: 3 ml Documented by: VINICIUS Albuterol/Ipratropium (Albuterol/Iprat 2.5/0.5mg 3 Ml Ampul.Neb) 3 ml INHALE RQ6H PRN PRN Reason: Shortness of Breath Allopurinol (Allopurinol 100 Mg Tablet) 100 mg PO DAILY [facility] Last Admin: 08/11/21 09:07 Dose: 100 mg Documented by: SARIAH Amlodipine Besylate (Amlodipine Besylate 5 Mg Tablet) 5 mg PO DAILY [facility]; Protocol Last Admin: 08/11/21 09:07 Dose: 5 mg Documented by: SARIAH Dextrose (Dextrose 50 % 25 Gm/50 Ml Syringe) 25 gm IVPUSH Q15M PRN; Protocol PRN Reason: per Hypoglycemia Standing Ord. Divalproex Sodium (Divalproex Sodium 250 Mg Tablet.) 250 mg PO BID [facility] Last Admin: 08/11/21 09:07 Dose: 250 mg Documented by: SARIAH Docusate Sodium (Docusate Sodium 100 Mg Capsule) 100 mg PO DAILY PRN PRN Reason: Constipation Enoxaparin Sodium (Enoxaparin Sodium 150 Mg/Ml Syringe) 150 mg SUBCUT Q12H [facility] Last Admin: 08/11/21 09:06 Dose: 150 mg Documented by: SARIAH Fluoxetine HCl (Fluoxetine Hcl 20 Mg Capsule) 40 mg PO DAILY [facility] Last Admin: 08/11/21 09:07 Dose: 40 mg Documented by: SARIAH Folic Acid (Folic Acid 1 Mg Tablet) 1 mg PO DAILY [facility] Last Admin: 08/11/21 09:07 Dose: 1 mg Documented by: SARIAH Glucose (Glucose Gel 15 Gm Gel..Gram.) 15 gm PO Q15M PRN; Protocol PRN Reason: per Hypoglycemia Standing Ord. Thiamine HCl 250 mg/ Sodium (Chloride) 102.5 mls @ 210 mls/hr IV DAILY [facility] Last Infusion: 08/11/21 11:52 Dose: 0 mls/hr Documented by: SARIHA Insulin Human Lispro (Insulin Lispro 100 Unit/Ml 3 Ml Vial) 0 unit SUBCUT QIDACHS [facility]; Protocol Last Admin: 08/11/21 11:02 Dose: Not Given Documented by: SARIAH Non-Admin Reason: No Insulin Coverage Metoprolol Tartrate (Metoprolol Tartrate 25 Mg Tablet) 25 mg PO BID [facility]; Protocol Last Admin: 08/11/21 09:06 Dose: 25 mg Documented by: SARIAH Morphine Sulfate (Morphine Sulfate 4 Mg/Ml Cartridge) 4 mg IVPUSH Q6H PRN; Protocol PRN Reason: Pain, Severe (Pain Scale 7-10) Omeprazole (Omeprazole 40 Mg Capsule.Dr) 40 mg PO DAILY@0630 [facility] Last Admin: 08/11/21 05:59 Dose: 40 mg Documented by: JULIUS Ondansetron HCl (Ondansetron Hcl 4 Mg/2 Ml Vial) 4 mg IVPUSH Q8H PRN PRN Reason: Nausea and Vomiting Pharmacy Consult (Consult Rx Perform Med Rec) 1 each MISCELLANE ONCE PRN PRN Reason: Consult order Phenobarbital (Phenobarbital 30 Mg Tablet) 30 mg PO DAILY [facility]; Protocol Stop: 08/13/21 09:01 Last Admin: 08/11/21 09:07 Dose: 30 mg Documented by: SARIAH Phenobarbital (Phenobarbital 30 Mg Tablet) 30 mg PO BID [facility]; Protocol Stop: 08/11/21 21:01 Last Admin: 08/11/21 09:18 Dose: 30 mg Documented by: SARIAH Prednisone (Prednisone 20 Mg Tablet) 40 mg PO DAILY [facility] Last Admin: 08/11/21 09:07 Dose: 40 mg Documented by: SARIAH Risperidone (Risperidone 0.5 Mg Tablet) 0.5 mg PO BID [facility] Last Admin: 08/07/21 10:59 Dose: Not Given Documented by: MARIAH Non-Admin Reason: See Note Sodium Chloride (0.9 % Sodium Chloride Flush 3 Ml Syringe) 3 ml IVFLUSH QSHIFT [facility] Last Admin: 08/11/21 09:07 Dose: 3 ml Documented by: SARIAH Thiamine HCl (Thiamine Hcl 100 Mg Tablet) 100 mg PO DAILY [facility] Last Admin: 08/09/21 09:25 Dose: 100 mg Documented by: ROSHAN Labs CBC & Chem 7: 08/11/21 05:58 08/11/21 05:58 Labs: Laboratory Results - last 24 hr 08/10/21 08/10/21 08/10/21 16:14 17:00 20:44 MCV MCH MCHC RDW Plt Count MPV Absolute Nucleated RBC Nucleated RBC % (auto) PT INR Anion Gap Estim Creat Clear Calc Estimated GFR POC Glucose 189 H 179 H Random Glucose Calcium Total Bilirubin Direct Bilirubin AST ALT Alkaline Phosphatase Total Protein Albumin Urine Creatinine 82.52 08/11/21 08/11/21 08/11/21 05:58 05:58 05:58 MCV 94.3 MCH 29.2 MCHC 31.0 RDW 14.6 Plt Count 170 MPV 11.2 Absolute Nucleated RBC 0.000 Nucleated RBC % (auto) 0.0 PT 13.6 H INR 1.2 H Anion Gap 13 Estim Creat Clear Calc 87.5 Estimated GFR 54 POC Glucose Random Glucose 164 H D Calcium 9.5 Total Bilirubin 0.5 Direct Bilirubin 0.3 AST 25 D ALT 16 Alkaline Phosphatase 72 D Total Protein 7.9 Albumin 4.6 D Urine Creatinine 08/11/21 08/11/21 07:20 10:55 MCV MCH MCHC RDW Plt Count MPV Absolute Nucleated RBC Nucleated RBC % (auto) PT INR Anion Gap Estim Creat Clear Calc Estimated GFR POC Glucose 138 H 133 H Random Glucose Calcium Total Bilirubin Direct Bilirubin AST ALT Alkaline Phosphatase Total Protein Albumin Urine Creatinine Assessment and Plan (1) Acute respiratory failure with hypoxia: Status: Acute (2) Acute on chronic respiratory failure with hypoxia and hypercapnia: Status: Acute (3) Alcohol withdrawal: Status: Acute (4) CHF (congestive heart failure): Status: Acute Plan 61-year-old male with past medical history of sleep apnea on CPAP, question of compliance, alcohol abuse with history of alcohol withdrawal, among other problems including AFib diabetes hypertension who presents to the hospital? after being found hypoxic at home. 1. Acute hypoxic hypercapnic respiratory failure-thought likely from MJ, hypoventilaion syndrome, CHF not ruled, respiratory status looks better. -Use biPAP at night -Breathing treatment -Prednisone -Home O2 eval before discharge 2. alcohol withdrawal:improving--improving, continue Pheno 3. toxic metabolic encephalopathy-?? Multifactorial likely secondary to alcohol, multiple psych meds presently lucid 4.? Karuna: on CKD 2, improving 5.? diabetes: fs 120-190. satrted diet , fs with coverage. 6. AFib-?started? ? P.o.metoprolol and enoxaparin for now. 7.Alcoholic Cirrhosis of liver-- 8. Morbid obesity, weight loss encouraged. d/w pharmacy phenobarbital interact with apixiban , so will continue enoxaparin. right knee pain--looks like has effusion in there xray done, result pending, morphine for pain ?DVT prophylaxis:?? Lovenox. Quality Stroke Does the patient have a stroke diagnosis?: No VTE Prior VTE?: No VTE Risk Level:: Medical - moderate - high VTE Device Contraindication: Treatment Not Indicated VTE Drug Contraindication: N/A - Med Ordered
[2021-08-11] MEDS: Morphine Sulfate 4 MG/ML CARTRIDGE IVPUSH (13:26)
[2021-08-11 16:16] LABS: Glucose, Whole Blood 183 mg/dL (60-115)
[2021-08-11 20:13] LABS: Glucose, Whole Blood 187 mg/dL (60-115)
[2021-08-12] VITALS (15 sets, daily range): BP systolic 123–171; BP diastolic 75–95; PULSE 70–102; RESP 16–20; TEMP 36.5–37.3; O2SAT 91–97; BMI 41.2
[2021-08-12] MEDS: Morphine Sulfate 4 MG/ML CARTRIDGE IVPUSH ×4 (00:13→21:28)
[2021-08-12] MEDS: Omeprazole 40 MG CAPSULE.DR PO (05:56)
[2021-08-12 07:34] LABS: Glucose, Whole Blood 99 mg/dL (60-115)
[2021-08-12] MEDS: Albuterol/Iprat 2.5/0.5MG 3 ML AMPUL.NEB INHALE ×3 (07:45→20:45)
[2021-08-12] MEDS: PHENobarbitaL 30 MG TABLET PO (08:47)
[2021-08-12] MEDS: predniSONE 20 MG TABLET 40 MG PO (08:48)
[2021-08-12] MEDS: FLUoxetine HCl 20 MG CAPSULE 40 MG PO (08:48)
[2021-08-12] MEDS: Divalproex Sodium 250 MG TABLET.DR PO ×2 (08:48→21:29)
[2021-08-12] MEDS: amLODIPine Besylate 5 MG TABLET PO (08:48)
[2021-08-12] MEDS: Folic Acid 1 MG TABLET PO (08:49)
[2021-08-12] MEDS: Enoxaparin Sodium 150 MG/ML SYRINGE SUBCUT ×2 (08:49→21:29)
[2021-08-12] MEDS: Metoprolol Tartrate 25 MG TABLET PO ×2 (08:49→21:29)
[2021-08-12] MEDS: 0.9 % Sodium Chloride Flush 3 ML SYRINGE IVFLUSH ×4 (08:49→21:29)
[2021-08-12] MEDS: allopurinoL 100 MG TABLET PO (08:49)
[2021-08-12] MEDS: Thiamine HCL 250 MG in 0.9 % Sodium Chloride 100 ML 210 MG IV (09:57)
--- NOTE | 2021-08-12 10:29 | PM.PNNEP ---
Subjective Subjective Date of Service: 08/26/21 Interval history: Events noted Physical Exam Vital Signs: Vital Signs: Last Vital Signs Temp 99.1 F 08/12/21 07:07 Pulse 86 08/12/21 07:46 Resp 20 08/12/21 07:46 BP 171/93 H 08/12/21 07:07 Pulse Ox 93 08/12/21 07:07 BMI result Body Mass Index 41.2 Neck: Neck: Yes supple Resp: Auscultation: clear to auscultation bilaterally Cardio: Jugular venous distension: no JVD Palpation: no palpable S3 Neuro: Motor exam (neuro): no asterixis Objective Data Labs CBC & Chem 7: 08/11/21 05:58 08/11/21 05:58 Labs: Laboratory Results - last 24 hr 08/11/21 08/11/21 08/11/21 10:55 16:09 19:52 POC Glucose 133 H 183 H 187 H 08/12/21 07:10 POC Glucose 99 Microbiology Microbiology Results: Microbiology 08/06/21 21:12 Blood - Venous Blood Culture - Final No growth after 5 days. 08/06/21 20:27 Blood - Venous Blood Culture - Final No growth after 5 days. Procedures Date of Service Date of Service: 09/09/21 Assessment & Plan Assessment and plan (1) MERLIN (acute kidney injury): Status: Resolved Plan MERLIN in setting of CKD with BL 1.3-1.4 mg/dL acute hypoxic hypercapneic respiratory failure. CHF metabolic alkalosis. Plan: MERLIN on CKD: Suspect his BL S-Cr is 1.3 -1.4 mg/dL He presented with noted MERLIN which responded to IVF's. Question chf and volume overload however he actually appears euvolemic on exam. daily renal panel Resp acidosis with Metabolic alkalsis chronic hypoventilation with hypercapnea. History of MJ, obesity, alcohol abuse. CHF: BNP only mildly elevated. Much lower than prior noted BL values. Cr is marginally better No labs today Time Spent With Patient Time: Total time spent is greater than 50% in coordination of care (as documented) at patient's floor/unit and/or counseling patient: Time with patient: 15 - 24 minutes Progress Note: Quality Stroke Does the patient have a stroke diagnosis?: No
[2021-08-12 11:34] LABS: Glucose, Whole Blood 135 mg/dL (60-115)
--- NOTE | 2021-08-12 12:21 | P.PNIM_ITS ---
Subjective Subjective Date of Service: 08/12/21 Interval History: F/u on hypoxia, seems better, c/o right knee pain Review of Systems no sob right knee pain Physical Exam Vital Signs: Vital Signs: Last Vital Signs Temp 98.6 F 08/12/21 10:57 Pulse 86 08/12/21 10:57 Resp 19 08/12/21 10:57 BP 123/87 08/12/21 10:57 Pulse Ox 91 L 08/12/21 10:57 BMI result Body Mass Index 41.2 Const: Other: General: AO X 3, no acute distress Resp: CTA bilateral CVS: S1,S2,RRR GI: +BS, NT, no distention Skin: No rash Neuro: motor grossly intact Psych: appropriate affect MSk: right knee tenderness, no redness, some effusion Objective Data Active Medications Acetaminophen (Acetaminophen 325 Mg Tablet) 650 mg PO Q6H PRN PRN Reason: Pain, Mild (Pain Scale 1-3) Last Admin: 08/11/21 04:00 Dose: 650 mg Documented by: JULIUS Albuterol Sulfate (Albuterol Sulfate 90 Mcg 8 Gm Inhaler) 2 puff INHALE Q4H PRN PRN Reason: for wheezing Albuterol/Ipratropium (Albuterol/Iprat 2.5/0.5mg 3 Ml Ampul.Neb) 3 ml INHALE RQ4H WHILE AWAKE [facility] Last Admin: 08/12/21 12:03 Dose: Not Given Documented by: NASIM Non-Admin Reason: Patient Refused Albuterol/Ipratropium (Albuterol/Iprat 2.5/0.5mg 3 Ml Ampul.Neb) 3 ml INHALE RQ 6H PRN PRN Reason: Shortness of Breath Allopurinol (Allopurinol 100 Mg Tablet) 100 mg PO DAILY [facility] Last Admin: 08/12/21 08:49 Dose: 100 mg Documented by: ALFREDO Amlodipine Besylate (Amlodipine Besylate 5 Mg Tablet) 5 mg PO DAILY [facility]; Protocol Last Admin: 08/12/21 08:48 Dose: 5 mg Documented by: ALFREDO Dextrose (Dextrose 50 % 25 Gm/50 Ml Syringe) 25 gm IVPUSH Q15M PRN; Protocol PRN Reason: per Hypoglycemia Standing Ord. Divalproex Sodium (Divalproex Sodium 250 Mg Tablet.) 250 mg PO BID [facility] Last Admin: 08/12/21 08:48 Dose: 250 mg Documented by: ALFREDO Docusate Sodium (Docusate Sodium 100 Mg Capsule) 100 mg PO DAILY PRN PRN Reason: Constipation Enoxaparin Sodium (Enoxaparin Sodium 150 Mg/Ml Syringe) 150 mg SUBCUT Q12H [facility] Last Admin: 08/12/21 08:49 Dose: 150 mg Documented by: ALFREDO Fluoxetine HCl (Fluoxetine Hcl 20 Mg Capsule) 40 mg PO DAILY [facility] Last Admin: 08/12/21 08:48 Dose: 40 mg Documented by: ALFREDO Folic Acid (Folic Acid 1 Mg Tablet) 1 mg PO DAILY [facility] Last Admin: 08/12/21 08:49 Dose: 1 mg Documented by: AFLREDO Glucose (Glucose Gel 15 Gm Gel..Gram.) 15 gm PO Q15M PRN; Protocol PRN Reason: per Hypoglycemia Standing Ord. Thiamine HCl 250 mg/ Sodium (Chloride) 102.5 mls @ 210 mls/hr IV DAILY [facility] Last Infusion: 08/12/21 11:42 Dose: 0 mls/hr Documented by: ALFREDO Insulin Human Lispro (Insulin Lispro 100 Unit/Ml 3 Ml Vial) 0 unit SUBCUT QIDACHS [facility]; Protocol Last Admin: 08/12/21 11:45 Dose: Not Given Documented by: ALFREDO Non-Admin Reason: No Insulin Coverage Metoprolol Tartrate (Metoprolol Tartrate 25 Mg Tablet) 25 mg PO BID [facility]; Protocol Last Admin: 08/12/21 08:49 Dose: 25 mg Documented by: ALFREDO Morphine Sulfate (Morphine Sulfate 4 Mg/Ml Cartridge) 4 mg IVPUSH Q6H PRN; Protocol PRN Reason: Pain, Severe (Pain Scale 7-10) Last Admin: 08/12/21 06:14 Dose: 4 mg Documented by: NATTY Omeprazole (Omeprazole 40 Mg Capsule.) 40 mg PO DAILY@0630 [facility] Last Admin: 08/12/21 05:56 Dose: 40 mg Documented by: NATTY Ondansetron HCl (Ondansetron Hcl 4 Mg/2 Ml Vial) 4 mg IVPUSH Q8H PRN PRN Reason: Nausea and Vomiting Pharmacy Consult (Consult Rx Perform Med Rec) 1 each MISCELLANE ONCE PRN PRN Reason: Consult order Phenobarbital (Phenobarbital 30 Mg Tablet) 30 mg PO DAILY [facility]; Protocol Stop: 08/13/21 09:01 Last Admin: 08/12/21 08:47 Dose: 30 mg Documented by: ALFREDO Prednisone (Prednisone 20 Mg Tablet) 40 mg PO DAILY [facility] Last Admin: 08/12/21 08:48 Dose: 40 mg Documented by: ALFREDO Risperidone (Risperidone 0.5 Mg Tablet) 0.5 mg PO BID [facility] Last Admin: 08/07/21 10:59 Dose: Not Given Documented by: MARIAH Non-Admin Reason: See Note Sodium Chloride (0.9 % Sodium Chloride Flush 3 Ml Syringe) 3 ml IVFLUSH QSHIFT [facility] Last Admin: 08/12/21 08:49 Dose: 3 ml Documented by: ALFREDO Thiamine HCl (Thiamine Hcl 100 Mg Tablet) 100 mg PO DAILY [facility] Last Admin: 08/09/21 09:25 Dose: 100 mg Documented by: ROSHAN Labs CBC & Chem 7: 08/11/21 05:58 08/11/21 05:58 Labs: Laboratory Results - last 24 hr 08/11/21 08/11/21 08/12/21 16:09 19:52 07:10 POC Glucose 183 H 187 H 99 08/12/21 11:05 POC Glucose 135 H Microbiology Microbiology Results: Microbiology 08/06/21 21:12 Blood Culture - Final Blood - Venous No growth after 5 days. 08/06/21 20:27 Blood Culture - Final Blood - Venous No growth after 5 days. Assessment and Plan (1) Acute respiratory failure with hypoxia: Status: Acute (2) Acute on chronic respiratory failure with hypoxia and hypercapnia: Status: Acute (3) Alcohol withdrawal: Status: Acute (4) CHF (congestive heart failure): Status: Acute Plan 61-year-old male with past medical history of sleep apnea on CPAP, question of compliance, alcohol abuse with history of alcohol withdrawal, among other problems including AFib diabetes hypertension who presents to the hospital? after being found hypoxic at home. 1. Acute hypoxic hypercapnic respiratory failure-thought likely from MJ, hypoventilaion syndrome, CHF not ruled, respiratory status looks better. -Use biPAP at night -Breathing treatment -Prednisone -Home O2 eval before discharge 2. alcohol withdrawal:improving--improving, continue Pheno 3. toxic metabolic encephalopathy-?? Multifactorial likely secondary to alcohol, multiple psych meds presently lucid 4.? Karuna: on CKD 2, improving, check creatine tomorrw 5.? diabetes: continue insulin 6. AFib-?on Metoprolol and xarelto, change to eliquis at discharge 7.Alcoholic Cirrhosis of liver-- 8. Morbid obesity, weight loss encouraged. 9. pain--xray shows Healing fracture of the proximal shaft of the fibula that does not appear acute but is new in the interval from 2019 exam. Joint effusion. -Ortho eval ? Quality Stroke Does the patient have a stroke diagnosis?: No VTE Prior VTE?: No VTE Risk Level:: Medical - moderate - high VTE Device Contraindication: Treatment Not Indicated VTE Drug Contraindication: N/A - Med Ordered
[2021-08-12 13:53] LABS: Glucose, Whole Blood 179 mg/dL (60-115)
[2021-08-12 14:28] LABS: ABG Base Excess 6.8 mmol/L; ABG HCO3 35 mmol/L (22-26); ABG pCO2 70 mmHg (32-45); ABG pH 7.31 (7.35-7.45); ABG pO2 52 mmHg (83-108)
[2021-08-12 14:54] LABS: Ammonia 65 umol/L (13-55)
--- NOTE | 2021-08-12 15:04 | MHC.CM.PN ---
Male 61 DX Resp failure. The pt had a PT evaluation today. PT is recommending STR. Preferences to be obtained .
[2021-08-12 16:08] LABS: Glucose, Whole Blood 158 mg/dL (60-115)
[2021-08-12 18:12] LABS: Urea, Random Urine 1011 mg/dL
[2021-08-12 20:04] LABS: Glucose, Whole Blood 128 mg/dL (60-115)
[2021-08-12 23:07] LABS: ABG Refer to POC result
[2021-08-13] VITALS (9 sets, daily range): BP systolic 133–195; BP diastolic 67–88; PULSE 62–105; RESP 18–22; TEMP 35.9–37.4; O2SAT 91–100; BMI 41.4
[2021-08-13] MEDS: Morphine Sulfate 4 MG/ML CARTRIDGE IVPUSH (03:32)
[2021-08-13] MEDS: Omeprazole 40 MG CAPSULE.DR PO (06:32)
[2021-08-13 07:27] LABS: Glucose, Whole Blood 91 mg/dL (60-115)
--- NOTE | 2021-08-13 08:16 | PM.EVENT ---
Event Note Date of Service: 08/13/21 Event Note: Right knee atraumatic effusion no redness pain with motion xrays show arthritis ? aspiration if patient will tolerate procedure. -less likely septic and likely OA flare
[2021-08-13] MEDS: Enoxaparin Sodium 150 MG/ML SYRINGE SUBCUT ×2 (09:07→19:44)
[2021-08-13] MEDS: 0.9 % Sodium Chloride Flush 3 ML SYRINGE IVFLUSH ×3 (09:07→19:45)
[2021-08-13] MEDS: Folic Acid 1 MG TABLET PO (09:08)
[2021-08-13] MEDS: Divalproex Sodium 250 MG TABLET.DR PO ×2 (09:08→19:45)
[2021-08-13] MEDS: FLUoxetine HCl 20 MG CAPSULE 40 MG PO (09:08)
[2021-08-13] MEDS: allopurinoL 100 MG TABLET PO (09:08)
[2021-08-13] MEDS: amLODIPine Besylate 5 MG TABLET PO (09:08)
[2021-08-13] MEDS: Metoprolol Tartrate 25 MG TABLET PO ×2 (09:08→19:45)
[2021-08-13] MEDS: predniSONE 20 MG TABLET 40 MG PO (09:08)
[2021-08-13] MEDS: Thiamine HCL 250 MG in 0.9 % Sodium Chloride 100 ML 210 MG IV (09:09)
--- NOTE | 2021-08-13 10:51 | PM.PNNEP ---
Subjective Subjective Date of Service: 08/13/21 Interval history: F/u on hypoxia, seems better, c/o right knee pain Events noted Physical Exam Vital Signs: Vital Signs: Last Vital Signs Temp 99.0 F 08/13/21 07:51 Pulse 105 H 08/13/21 07:51 Resp 20 08/13/21 07:51 BP 136/82 08/13/21 07:51 Pulse Ox 91 L 08/13/21 07:51 BMI result Body Mass Index 41.4 Neck: Neck: Yes supple Resp: Auscultation: clear to auscultation bilaterally Cardio: Jugular venous distension: no JVD Palpation: no palpable S3 Neuro: Motor exam (neuro): no asterixis Objective Data Labs CBC & Chem 7: 08/11/21 05:58 08/11/21 05:58 Labs: Laboratory Results - last 24 hr 08/10/21 08/12/21 08/12/21 17:00 11:05 13:45 O2 Saturation ABG pH at Pt Temp ABG pCO2 at Pt Temp ABG pO2 at Pt Temp ABG HCO3 ABG Base Excess (Actual) POC Glucose 135 H 179 H Ammonia Ur Random Urea 1011 08/12/21 08/12/21 08/12/21 14:15 14:40 16:02 O2 Saturation 75.0 ABG pH at Pt Temp 7.31 L ABG pCO2 at Pt Temp 70 H* ABG pO2 at Pt Temp 52 L ABG HCO3 35 H ABG Base Excess (Actual) 6.8 POC Glucose 158 H Ammonia 65 H Ur Random Urea 08/12/21 08/13/21 20:01 07:22 O2 Saturation ABG pH at Pt Temp ABG pCO2 at Pt Temp ABG pO2 at Pt Temp ABG HCO3 ABG Base Excess (Actual) POC Glucose 128 H 91 Ammonia Ur Random Urea Microbiology Microbiology Results: Microbiology 08/06/21 21:12 Blood - Venous Blood Culture - Final No growth after 5 days. 08/06/21 20:27 Blood - Venous Blood Culture - Final No growth after 5 days. Procedures Date of Service Date of Service: 08/13/21 Assessment & Plan Assessment and plan (1) MERLIN (acute kidney injury): Status: Acute Plan MERLIN in setting of CKD with BL 1.3-1.4 mg/dL acute hypoxic hypercapneic respiratory failure. CHF metabolic alkalosis. Plan: MERLIN on CKD: Suspect his BL S-Cr is 1.3 -1.4 mg/dL He presented with noted MERLIN which responded to IVF's. Question chf and volume overload however he actually appears euvolemic on exam. daily renal panel Resp acidosis with Metabolic alkalsis chronic hypoventilation with hypercapnea. History of MJ, obesity, alcohol abuse. CHF: BNP only mildly elevated. Much lower than prior noted BL values. Cr is marginally better No labs today Time Spent With Patient Time: Total time spent is greater than 50% in coordination of care (as documented) at patient's floor/unit and/or counseling patient: Time with patient: 15 - 24 minutes Progress Note: Quality Stroke Does the patient have a stroke diagnosis?: No
[2021-08-13 11:13] LABS: Glucose, Whole Blood 121 mg/dL (60-115)
--- NOTE | 2021-08-13 12:08 | HO.PM.IMPN ---
Subjective Subjective Date of Service: 08/13/21 Interval History: F/u on hypoxia, alcohol withdrawal and encephalopathy--He was lethargic yesterday and had to be put back on Bipap during the day, he is better today. He is confused and ammonia level is slightly higher than yesterday Review of Systems no sob right knee pain Physical Exam Vital Signs: Vital Signs: Last Vital Signs Temp 96.6 F L 08/13/21 11:29 Pulse 85 08/13/21 11:29 Resp 22 H 08/13/21 11:29 BP 136/82 08/13/21 07:51 Pulse Ox 94 08/13/21 11:29 BMI result Body Mass Index 41.4 Const: Other: General: AO X 1, no acute distress Resp: decrease breath sounds bilaterally CVS: S1,S2,RRR GI: +BS, NT, no distention Skin: No rash Neuro: motor grossly intact Psych: appropriate affect MSk: right knee tenderness, no redness, some effusion Objective Data Active Medications Acetaminophen (Acetaminophen 325 Mg Tablet) 650 mg PO Q6H PRN PRN Reason: Pain, Mild (Pain Scale 1-3) Last Admin: 08/11/21 04:00 Dose: 650 mg Documented by: JULIUS Albuterol Sulfate (Albuterol Sulfate 90 Mcg 8 Gm Inhaler) 2 puff INHALE Q4H PRN PRN Reason: for wheezing Albuterol/Ipratropium (Albuterol/Iprat 2.5/0.5mg 3 Ml Ampul.Neb) 3 ml INHALE RQ4H WHILE AWAKE [facility] Last Admin: 08/13/21 07:43 Dose: Not Given Documented by: VINICIUS Non-Admin Reason: Patient Refused Albuterol/Ipratropium (Albuterol/Iprat 2.5/0.5mg 3 Ml Ampul.Neb) 3 ml INHALE RQ6H PRN PRN Reason: Shortness of Breath Allopurinol (Allopurinol 100 Mg Tablet) 100 mg PO DAILY [facility] Last Admin: 08/13/21 09:08 Dose: 100 mg Documented by: MULU Amlodipine Besylate (Amlodipine Besylate 5 Mg Tablet) 5 mg PO DAILY [facility]; Protocol Last Admin: 08/13/21 09:08 Dose: 5 mg Documented by: MULU Dextrose (Dextrose 50 % 25 Gm/50 Ml Syringe) 25 gm IVPUSH Q15M PRN; Protocol PRN Reason: per Hypoglycemia Standing Ord. Divalproex Sodium (Divalproex Sodium 250 Mg Tablet.) 250 mg PO BID [facility] Last Admin: 08/13/21 09:08 Dose: 250 mg Documented by: MULU Docusate Sodium (Docusate Sodium 100 Mg Capsule) 100 mg PO DAILY PRN PRN Reason: Constipation Enoxaparin Sodium (Enoxaparin Sodium 150 Mg/Ml Syringe) 150 mg SUBCUT Q12H [facility] Last Admin: 08/13/21 09:07 Dose: 150 mg Documented by: MULU Fluoxetine HCl (Fluoxetine Hcl 20 Mg Capsule) 40 mg PO DAILY [facility] Last Admin: 08/13/21 09:08 Dose: 40 mg Documented by: MULU Folic Acid (Folic Acid 1 Mg Tablet) 1 mg PO DAILY [facility] Last Admin: 08/13/21 09:08 Dose: 1 mg Documented by: MULU Glucose (Glucose Gel 15 Gm Gel..Gram.) 15 gm PO Q15M PRN; Protocol PRN Reason: per Hypoglycemia Standing Ord. Thiamine HCl 250 mg/ Sodium (Chloride) 102.5 mls @ 210 mls/hr IV DAILY [facility] Last Infusion: 08/13/21 10:35 Dose: 0 mls/hr Documented by: MULU Insulin Human Lispro (Insulin Lispro 100 Unit/Ml 3 Ml Vial) 0 unit SUBCUT QIDACHS [facility]; Protocol Last Admin: 08/13/21 11:48 Dose: Not Given Documented by: MULU Non-Admin Reason: No Insulin Coverage Metoprolol Tartrate (Metoprolol Tartrate 25 Mg Tablet) 25 mg PO BID [facility]; Protocol Last Admin: 08/13/21 09:08 Dose: 25 mg Documented by: MULU Morphine Sulfate (Morphine Sulfate 4 Mg/Ml Cartridge) 4 mg IVPUSH Q6H PRN; Protocol PRN Reason: Pain, Severe (Pain Scale 7-10) Last Admin: 08/13/21 03:32 Dose: 4 mg Documented by: WENDY Omeprazole (Omeprazole 40 Mg Capsule.) 40 mg PO DAILY@0630 [facility] Last Admin: 08/13/21 06:32 Dose: 40 mg Documented by: WENDY Ondansetron HCl (Ondansetron Hcl 4 Mg/2 Ml Vial) 4 mg IVPUSH Q8H PRN PRN Reason: Nausea and Vomiting Pharmacy Consult (Consult Rx Perform Med Rec) 1 each MISCELLANE ONCE PRN PRN Reason: Consult order Prednisone (Prednisone 20 Mg Tablet) 40 mg PO DAILY [facility] Last Admin: 08/13/21 09:08 Dose: 40 mg Documented by: MULU Risperidone (Risperidone 0.5 Mg Tablet) 0.5 mg PO BID [facility] Last Admin: 08/07/21 10:59 Dose: Not Given Documented by: MARIAH Non-Admin Reason: See Note Sodium Chloride (0.9 % Sodium Chloride Flush 3 Ml Syringe) 3 ml IVFLUSH QSHIFT [facility] Last Admin: 08/13/21 09:07 Dose: 3 ml Documented by: MULU Thiamine HCl (Thiamine Hcl 100 Mg Tablet) 100 mg PO DAILY [facility] Last Admin: 08/09/21 09:25 Dose: 100 mg Documented by: ROSHAN Labs CBC & Chem 7: 08/11/21 05:58 08/11/21 05:58 Labs: Laboratory Results - last 24 hr 08/10/21 08/12/21 08/12/21 17:00 13:45 14:15 O2 Saturation 75.0 ABG pH at Pt Temp 7.31 L ABG pCO2 at Pt Temp 70 H* ABG pO2 at Pt Temp 52 L ABG HCO3 35 H ABG Base Excess (Actual) 6.8 POC Glucose 179 H Ammonia Ur Random Urea 1011 08/12/21 08/12/21 08/12/21 14:40 16:02 20:01 O2 Saturation ABG pH at Pt Temp ABG pCO2 at Pt Temp ABG pO2 at Pt Temp ABG HCO3 ABG Base Excess (Actual) POC Glucose 158 H 128 H Ammonia 65 H Ur Random Urea 08/13/21 08/13/21 07:22 11:04 O2 Saturation ABG pH at Pt Temp ABG pCO2 at Pt Temp ABG pO2 at Pt Temp ABG HCO3 ABG Base Excess (Actual) POC Glucose 91 121 H Ammonia Ur Random Urea Assessment and Plan (1) Acute respiratory failure with hypoxia: Status: Acute (2) Acute on chronic respiratory failure with hypoxia and hypercapnia: Status: Acute (3) Alcohol withdrawal: Status: Acute (4) CHF (congestive heart failure): Status: Acute Plan 61-year-old male with past medical history of sleep apnea on CPAP, question of compliance, alcohol abuse with history of alcohol withdrawal, among other problems including AFib diabetes hypertension who presents to the hospital? after being found hypoxic at home. 1. Acute hypoxic hypercapnic respiratory failure-due to combination of MJ, hypoventilaion syndrome, CHF not ruled, respiratory status is better today -Use biPAP at night and PRN during the day -Breathing treatment scheduled and PRn -Prednisone -Home O2 eval before discharge 2. alcohol withdrawal:improving--resolved, has completed treatement with Phenobarbital 3. Toxic metabolic encephalopathy likely -?? Multifactorial likely secondary to alcohol, multiple psych meds and now hepatic encephalopathy with higher than usual ammonia levels. 4.? Karuna: on CKD 2, improving, check creatine tomorrw 5.? diabetes: continue insulin 6. AFib-?on Metoprolol and Lovenox will change to Eliquis 7.Alcoholic Cirrhosis of liver--stable, 8. Morbid obesity, weight loss encouraged. 9. pain--xray shows Healing fracture of the proximal shaft of the fibula that does not appear acute but is new in the interval from 2019 exam. Joint effusion. -Ortho will attempt aspiration PT eval before discharge ? Quality Stroke Does the patient have a stroke diagnosis?: No VTE Prior VTE?: No VTE Risk Level:: Medical - moderate - high VTE Device Contraindication: Treatment Not Indicated VTE Drug Contraindication: N/A - Med Ordered
[2021-08-13] MEDS: Lactulose 20 GM/30 ML SOLUTION 30 GM PO ×2 (13:17→19:44)
[2021-08-13 16:18] LABS: Glucose, Whole Blood 175 mg/dL (60-115)
[2021-08-13 20:01] LABS: Glucose, Whole Blood 145 mg/dL (60-115)
[2021-08-13] MEDS: Albuterol/Iprat 2.5/0.5MG 3 ML AMPUL.NEB INHALE (20:03)
[2021-08-14] VITALS (9 sets, daily range): BP systolic 134–176; BP diastolic 74–99; PULSE 76–95; RESP 18–20; TEMP 36–37.4; O2SAT 93–97; BMI 42.2
[2021-08-14] MEDS: Morphine Sulfate 4 MG/ML CARTRIDGE IVPUSH
[2021-08-14] MEDS: Omeprazole 40 MG CAPSULE.DR PO (05:33)
[2021-08-14] MEDS: Lactulose 20 GM/30 ML SOLUTION 30 GM PO ×3 (05:33→20:44)
[2021-08-14 07:31] LABS: Glucose, Whole Blood 100 mg/dL (60-115)
[2021-08-14] MEDS: Thiamine HCL 250 MG in 0.9 % Sodium Chloride 100 ML 210 MG IV (09:36)
[2021-08-14] MEDS: predniSONE 20 MG TABLET 40 MG PO (09:44)
[2021-08-14] MEDS: allopurinoL 100 MG TABLET PO (09:46)
[2021-08-14] MEDS: amLODIPine Besylate 5 MG TABLET PO (09:46)
[2021-08-14] MEDS: Folic Acid 1 MG TABLET PO (09:46)
[2021-08-14] MEDS: Metoprolol Tartrate 25 MG TABLET PO ×2 (09:46→20:44)
[2021-08-14] MEDS: 0.9 % Sodium Chloride Flush 3 ML SYRINGE IVFLUSH ×3 (09:46→20:44)
[2021-08-14] MEDS: Divalproex Sodium 250 MG TABLET.DR PO ×2 (09:46→20:44)
[2021-08-14] MEDS: Enoxaparin Sodium 150 MG/ML SYRINGE SUBCUT ×2 (09:46→20:43)
[2021-08-14] MEDS: FLUoxetine HCl 20 MG CAPSULE 40 MG PO (09:47)
--- NOTE | 2021-08-14 10:34 | P.CONOP_ITS ---
History of Present Illness HPI Consult date: 08/13/21 Chief complaint: Hypoxic hypercapnic resp failure Narrative: A 61-year-old gentleman who was admitted to the medical service for hypoxic hypercapnic respiratory failure. He was being treated for his respiratory failure along with metabolic encephalopathy. While admitted to the hospital there were some concerns for his right knee pain and swelling. Orthopedics was consulted for further recommendations. When an attempt was made to see the patient he appeared delirious and confused. Review of Systems Review of Systems: Unobtainable [facility] Past Medical History Medical History Afib Alcohol dependency Anxiety Arthritis CHF (congestive heart failure) Depression Diabetes Fever of unknown origin Gout HTN (hypertension) Left atrial enlargement Seroma due to trauma Sleep apnea Wernicke encephalopathy Family History Family History Father Lung cancer Mother No problems noted. Maternal Aunt History of heart attack Sister No problems noted. Brother Cancer of kidney Brother No problems noted. Brother No problems noted. Brother No problems noted. Brother No problems noted. Brother No problems noted. Other Substance use disorder Surgical History Surgical History No pertinent past surgical history Social History Social History Household Members: Spouse Housing: House Do you presently have visiting nurse or other home services: No Alcohol intake: current Alcohol intake frequency: 0-2 drinks per day Patient Tobacco Use Status: Current everyday Tobacco user Tobacco use type: Cigarette Cigarette Packs Per Day: 1 Cigarettes Per Day: 20.0 e-Cigarette/Vaping Use: Never Used Second Hand Smoke Exposure: Yes service: Yes Current occupational status: unemployed Meds Allergies Allergy/AdvReac Type Severity Reaction Status Date / Time No Known Allergies Allergy Verified 07/13/21 16:54 [No Known Allergies*] Active Medications: Current Medications Acetaminophen (Acetaminophen 325 Mg Tablet) 650 mg PO Q6H PRN PRN Reason: Pain, Mild (Pain Scale 1-3) Last Admin: 08/11/21 04:00 Dose: 650 mg Documented by: Albuterol Sulfate (Albuterol Sulfate 90 Mcg 8 Gm Inhaler) 2 puff INHALE Q4H PRN PRN Reason: for wheezing Albuterol/Ipratropium (Albuterol/Iprat 2.5/0.5mg 3 Ml Ampul.Neb) 3 ml INHALE RQ4H WHILE AWAKE [facility] Last Admin: 08/14/21 08:06 Dose: Not Given Documented by: Albuterol/Ipratropium (Albuterol/Iprat 2.5/0.5mg 3 Ml Ampul.Neb) 3 ml INHALE RQ6H PRN PRN Reason: Shortness of Breath Allopurinol (Allopurinol 100 Mg Tablet) 100 mg PO DAILY [facility] Last Admin: 08/14/21 09:46 Dose: 100 mg Documented by: Amlodipine Besylate (Amlodipine Besylate 5 Mg Tablet) 5 mg PO DAILY [facility]; Protocol Last Admin: 08/14/21 09:46 Dose: 5 mg Documented by: Dextrose (Dextrose 50 % 25 Gm/50 Ml Syringe) 25 gm IVPUSH Q15M PRN; Protocol PRN Reason: per Hypoglycemia Standing Ord. Divalproex Sodium (Divalproex Sodium 250 Mg Tablet.Dr) 250 mg PO BID [facility] Last Admin: 08/14/21 09:46 Dose: 250 mg Documented by: Docusate Sodium (Docusate Sodium 100 Mg Capsule) 100 mg PO DAILY PRN PRN Reason: Constipation Enoxaparin Sodium (Enoxaparin Sodium 150 Mg/Ml Syringe) 150 mg SUBCUT Q12H [facility] Last Admin: 08/14/21 09:46 Dose: 150 mg Documented by: Fluoxetine HCl (Fluoxetine Hcl 20 Mg Capsule) 40 mg PO DAILY [facility] Last Admin: 08/14/21 09:47 Dose: 40 mg Documented by: Folic Acid (Folic Acid 1 Mg Tablet) 1 mg PO DAILY [facility] Last Admin: 08/14/21 09:46 Dose: 1 mg Documented by: Glucose (Glucose Gel 15 Gm Gel..Gram.) 15 gm PO Q15M PRN; Protocol PRN Reason: per Hypoglycemia Standing Ord. Thiamine HCl 250 mg/ Sodium (Chloride) 102.5 mls @ 210 mls/hr IV DAILY [facility] Last Infusion: 08/14/21 10:31 Dose: Infused Documented by: Insulin Human Lispro (Insulin Lispro 100 Unit/Ml 3 Ml Vial) 0 unit SUBCUT QIDACHS [facility]; Protocol Last Admin: 08/14/21 08:23 Dose: Not Given Documented by: Lactulose (Lactulose 20 Gm/30 Ml Solution) 30 gm PO Q8H [facility] Last Admin: 08/14/21 05:33 Dose: 30 gm Documented by: Metoprolol Tartrate (Metoprolol Tartrate 25 Mg Tablet) 25 mg PO BID [facility]; Protocol Last Admin: 08/14/21 09:46 Dose: 25 mg Documented by: Morphine Sulfate (Morphine Sulfate 4 Mg/Ml Cartridge) 4 mg IVPUSH Q6H PRN; Protocol PRN Reason: Pain, Severe (Pain Scale 7-10) Last Admin: 08/14/21 00:00 Dose: 4 mg Documented by: Omeprazole (Omeprazole 40 Mg Capsule.Dr) 40 mg PO DAILY@0630 [facility] Last Admin: 08/14/21 05:33 Dose: 40 mg Documented by: Ondansetron HCl (Ondansetron Hcl 4 Mg/2 Ml Vial) 4 mg IVPUSH Q8H PRN PRN Reason: Nausea and Vomiting Pharmacy Consult (Consult Rx Perform Med Rec) 1 each MISCELLANE ONCE PRN PRN Reason: Consult order Prednisone (Prednisone 20 Mg Tablet) 40 mg PO DAILY [facility] Last Admin: 08/14/21 09:44 Dose: 40 mg Documented by: Risperidone (Risperidone 0.5 Mg Tablet) 0.5 mg PO BID [facility] Last Admin: 08/07/21 10:59 Dose: Not Given Documented by: Sodium Chloride (0.9 % Sodium Chloride Flush 3 Ml Syringe) 3 ml IVFLUSH QSHIFT [facility] Last Admin: 08/14/21 09:46 Dose: 3 ml Documented by: Thiamine HCl (Thiamine Hcl 100 Mg Tablet) 100 mg PO DAILY [facility] Last Admin: 08/09/21 09:25 Dose: 100 mg Documented by: Physical Exam Vital Signs: Vital Signs: Last Vital Signs Temp 99.4 F 08/14/21 08:00 Pulse 86 08/14/21 08:00 Resp 20 08/14/21 08:00 BP 162/83 H 08/14/21 08:00 Pulse Ox 95 08/14/21 08:00 BMI result Body Mass Index 42.2 Const: General: comfortable Extrem: Other: Right knee does have a significant amount of swelling but there is no redness. He has significant tenderness to palpation with the knee and pulls away. Unable to flex or extend due to his discomfort and mental status. Results Labs Result Diagrams: 08/11/21 05:58 08/11/21 05:58 Labs: Abnormal lab results 08/13/21 08/13/21 08/13/21 Range/Units 11:04 16:11 19:32 POC Glucose 121 H 175 H 145 H (60-115) mg/dL H & H 08/06/21 08/07/21 08/08/21 Range/Units 20:27 03:42 08:10 Hgb 13.8 L 14.5 13.8 L (14.0-18.0) g/dl Hct 44.3 46.5 43.8 (42.0-52.0) % 08/11/21 Range/Units 05:58 Hgb 12.8 L (14.0-18.0) g/dl Hct 41.3 L (42.0-52.0) % Coagulation 08/06/21 08/11/21 Range/Units 20:27 05:58 INR 1.4 H 1.2 H (0.9-1.1) All other labs normal. Assessment and Plan (1) Effusion, right knee: Status: Acute Plan X-rays of the right knee which were obtained in the hospital on August 21 are significant for degenerative arthritis. This is not appear to be a septic arthritis given his low white count and absence of redness or warmth. I would recommend an aspiration however he does appear quite uncomfortable and confused and I do not recommended with this current mental status as he does not tolerate any type of exam. He does have a history of gout and I would recommend prednisone and anti-inflammatories anything follow-up on an outpatient basis. If symptoms worsen we will continue to follow. Procedures Date of Service Date of Service: 08/13/21
[2021-08-14 11:06] LABS: Glucose, Whole Blood 121 mg/dL (60-115)
--- NOTE | 2021-08-14 11:10 | P.PNIM_ITS ---
Subjective Subjective Date of Service: 08/14/21 Interval History: F/u on hypoxia, alcohol withdrawal and encephalopathy--He is more alert, less confused, says he hurts everywhere Review of Systems no sob right knee pain Physical Exam Vital Signs: Vital Signs: Last Vital Signs Temp 99.4 F 08/14/21 08:00 Pulse 86 08/14/21 10:44 Resp 20 08/14/21 08:00 BP 162/83 H 08/14/21 10:44 Pulse Ox 95 08/14/21 10:44 BMI result Body Mass Index 42.2 Const: Other: General: AO X 2, no acute distress Resp: decrease breath sounds bilaterally CVS: S1,S2,RRR GI: +BS, NT, no distention Skin: No rash Neuro: motor grossly intact Psych: appropriate affect MSk: right knee tenderness, no redness, some effusion Objective Data Active Medications Acetaminophen (Acetaminophen 325 Mg Tablet) 650 mg PO Q6H PRN PRN Reason: Pain, Mild (Pain Scale 1-3) Last Admin: 08/11/21 04:00 Dose: 650 mg Documented by: JULIUS Albuterol Sulfate (Albuterol Sulfate 90 Mcg 8 Gm Inhaler) 2 puff INHALE Q4H PRN PRN Reason: for wheezing Albuterol/Ipratropium (Albuterol/Iprat 2.5/0.5mg 3 Ml Ampul.Neb) 3 ml INHALE RQ4H WHILE AWAKE [facility] Last Admin: 08/14/21 08:06 Dose: Not Given Documented by: VINICIUS Non-Admin Reason: Patient Refused Albuterol/Ipratropium (Albuterol/Iprat 2.5/0.5mg 3 Ml Ampul.Neb) 3 ml INHALE RQ6H PRN PRN Reason: Shortness of Breath Allopurinol (Allopurinol 100 Mg Tablet) 100 mg PO DAILY [facility] Last Admin: 08/14/21 09:46 Dose: 100 mg Documented by: STACY Amlodipine Besylate (Amlodipine Besylate 5 Mg Tablet) 5 mg PO DAILY [facility]; Protocol Last Admin: 08/14/21 09:46 Dose: 5 mg Documented by: STACY Dextrose (Dextrose 50 % 25 Gm/50 Ml Syringe) 25 gm IVPUSH Q15M PRN; Protocol PRN Reason: per Hypoglycemia Standing Ord. Divalproex Sodium (Divalproex Sodium 250 Mg Tablet.) 250 mg PO BID [facility] Last Admin: 08/14/21 09:46 Dose: 250 mg Documented by: STACY Docusate Sodium (Docusate Sodium 100 Mg Capsule) 100 mg PO DAILY PRN PRN Reason: Constipation Enoxaparin Sodium (Enoxaparin Sodium 150 Mg/Ml Syringe) 150 mg SUBCUT Q12H [facility] Last Admin: 08/14/21 09:46 Dose: 150 mg Documented by: STACY Fluoxetine HCl (Fluoxetine Hcl 20 Mg Capsule) 40 mg PO DAILY [facility] Last Admin: 08/14/21 09:47 Dose: 40 mg Documented by: STACY Folic Acid (Folic Acid 1 Mg Tablet) 1 mg PO DAILY [facility] Last Admin: 08/14/21 09:46 Dose: 1 mg Documented by: STACY Glucose (Glucose Gel 15 Gm Gel..Gram.) 15 gm PO Q15M PRN; Protocol PRN Reason: per Hypoglycemia Standing Ord. Thiamine HCl 250 mg/ Sodium (Chloride) 102.5 mls @ 210 mls/hr IV DAILY [facility] Last Infusion: 08/14/21 10:31 Dose: 0 mls/hr Documented by: STACY Insulin Human Lispro (Insulin Lispro 100 Unit/Ml 3 Ml Vial) 0 unit SUBCUT QIDACHS [facility]; Protocol Last Admin: 08/14/21 08:23 Dose: Not Given Documented by: STACY Non-Admin Reason: No Insulin Coverage Lactulose (Lactulose 20 Gm/30 Ml Solution) 30 gm PO Q8H [facility] Last Admin: 08/14/21 05:33 Dose: 30 gm Documented by: WENDY Metoprolol Tartrate (Metoprolol Tartrate 25 Mg Tablet) 25 mg PO BID [facility]; Protocol Last Admin: 08/14/21 09:46 Dose: 25 mg Documented by: STACY Morphine Sulfate (Morphine Sulfate 4 Mg/Ml Cartridge) 4 mg IVPUSH Q6H PRN; Protocol PRN Reason: Pain, Severe (Pain Scale 7-10) Last Admin: 08/14/21 00:00 Dose: 4 mg Documented by: WENDY Omeprazole (Omeprazole 40 Mg Capsule.) 40 mg PO DAILY@0630 [facility] Last Admin: 08/14/21 05:33 Dose: 40 mg Documented by: WENDY Ondansetron HCl (Ondansetron Hcl 4 Mg/2 Ml Vial) 4 mg IVPUSH Q8H PRN PRN Reason: Nausea and Vomiting Pharmacy Consult (Consult Rx Perform Med Rec) 1 each MISCELLANE ONCE PRN PRN Reason: Consult order Prednisone (Prednisone 20 Mg Tablet) 40 mg PO DAILY [facility] Last Admin: 08/14/21 09:44 Dose: 40 mg Documented by: STACY Risperidone (Risperidone 0.5 Mg Tablet) 0.5 mg PO BID [facility] Last Admin: 08/07/21 10:59 Dose: Not Given Documented by: MARIAH Non-Admin Reason: See Note Sodium Chloride (0.9 % Sodium Chloride Flush 3 Ml Syringe) 3 ml IVFLUSH QSHIFT [facility] Last Admin: 08/14/21 09:46 Dose: 3 ml Documented by: STACY Thiamine HCl (Thiamine Hcl 100 Mg Tablet) 100 mg PO DAILY [facility] Last Admin: 08/09/21 09:25 Dose: 100 mg Documented by: ROSHAN Labs CBC & Chem 7: 08/11/21 05:58 08/11/21 05:58 Labs: Laboratory Results - last 24 hr 08/09/21 08/13/21 08/13/21 16:09 11:04 16:11 POC Glucose 121 H 175 H Aldosterone 3 08/13/21 08/14/21 08/14/21 19:32 07:14 10:57 POC Glucose 145 H 100 121 H Aldosterone Assessment and Plan (1) Acute respiratory failure with hypoxia: Status: Acute (2) Acute on chronic respiratory failure with hypoxia and hypercapnia: Status: Acute (3) Alcohol withdrawal: Status: Acute (4) CHF (congestive heart failure): Status: Acute Plan 61-year-old male with past medical history of sleep apnea on CPAP, question of compliance, alcohol abuse with history of alcohol withdrawal, among other problems including AFib diabetes hypertension who presents to the hospital? after being found hypoxic at home. 1. Acute hypoxic hypercapnic respiratory failure-due to combination of MJ, hypoventilaion syndrome, CHF not ruled, respiratory status is better today -Use biPAP at night and PRN during the day -Breathing treatment scheduled and PRn -Prednisone -Home O2 eval before discharge 2. alcohol withdrawal:improving--resolved, has completed treatement with Phenobarbital 3. Toxic metabolic encephalopathy likely -?? Multifactorial likely secondary to alcohol, multiple psych meds and now hepatic encephalopathy with higher than us ual ammonia levels. Lactulose seemed to have helped so will continue 4.? Karuna: on CKD 2, improving, check creatine tomorrow 5.? Diabetes: continue insulin 6. AFib-?on Metoprolol and Lovenox will change to Eliquis 7.Alcoholic Cirrhosis of liver--stable, 8. Morbid obesity, weight loss encouraged. 9. pain--xray shows Healing fracture of the proximal shaft of the fibula that does not appear acute but is new in the interval from 2019 exam. Joint effusion. -Ortho attempted aspiration of joint but could not tolerated, no clinical evidence of infection, he has hstory of gout and this could be a manifestaton of it. -He already on Prednisone, can colchicine as well and see PT eval before discharge ? Quality Stroke Does the patient have a stroke diagnosis?: No VTE Prior VTE?: No VTE Risk Level:: Medical - moderate - high VTE Device Contraindication: Treatment Not Indicated VTE Drug Contraindication: N/A - Med Ordered
[2021-08-14] MEDS: Albuterol/Iprat 2.5/0.5MG 3 ML AMPUL.NEB INHALE (11:14)
--- NOTE | 2021-08-14 14:34 | MHC.CM.PN ---
Male 61 DX Hypoxia respiratory failure DP STR vs Home. Per MD rounds no dc today. Patient continues to appear confused at times. He did not get OOB to work with PT today. A referral has been made to [facility] which the patient stated was his 1st choice. He did not provide STR preferences.
--- NOTE | 2021-08-14 15:25 | PM.PNNEP ---
Subjective Subjective Date of Service: 08/14/21 Interval history: seen and examined no complaints Physical Exam Vital Signs: Vital Signs: Last Vital Signs Temp 98.2 F 08/14/21 11:37 Pulse 85 08/14/21 11:37 Resp 20 08/14/21 11:37 BP 144/74 H 08/14/21 11:37 Pulse Ox 94 08/14/21 11:37 BMI result Body Mass Index 42.2 Const: General: no acute distress HENMT: Head: Yes normocephalic and Yes atraumatic Neck: Neck: Yes supple Resp: Auscultation: diminished lung sounds Cardio: Heart sounds: S1 normal heart sound present and S2 normal heart sound present GI: Palpation (GI): Soft to palpation and nontender Extrem: General: No edema Objective Data Labs CBC & Chem 7: 08/11/21 05:58 08/11/21 05:58 Labs: Laboratory Results - last 24 hr 08/09/21 08/13/21 08/13/21 16:09 16:11 19:32 POC Glucose 175 H 145 H Renin 1.20 08/14/21 08/14/21 07:14 10:57 POC Glucose 100 121 H Renin Microbiology Microbiology Results: Microbiology 08/06/21 21:12 Blood - Venous Blood Culture - Final No growth after 5 days. 08/06/21 20:27 Blood - Venous Blood Culture - Final No growth after 5 days. Procedures Date of Service Date of Service: 08/14/21 Assessment & Plan Assessment and plan (1) Acute kidney injury: Status: Acute (2) CKD (chronic kidney disease) stage 3, GFR 30-59 ml/min: Status: Acute Plan kidney function at baseline [facility] due to compromised kidney perfusion resolved known CKD baseline Scr ~ 1.3 mg/dl REC resume furosemide 20 mg daily follow kidney function and electrolytes Time Spent With Patient Time: Total time spent is greater than 50% in coordination of care (as documented) at patient's floor/unit and/or counseling patient: Progress Note: Quality Stroke Does the patient have a stroke diagnosis?: No
[2021-08-14 15:51] LABS: Glucose, Whole Blood 183 mg/dL (60-115)
[2021-08-14 19:46] LABS: Glucose, Whole Blood 161 mg/dL (60-115)
[2021-08-15] VITALS (7 sets, daily range): BP systolic 131–168; BP diastolic 64–86; PULSE 56–102; RESP 18–19; TEMP 36.2–37.8; O2SAT 89–99
[2021-08-15] MEDS: Lactulose 20 GM/30 ML SOLUTION 30 GM PO ×3 (05:25→21:04)
[2021-08-15] MEDS: Omeprazole 40 MG CAPSULE.DR PO (05:26)
[2021-08-15 08:19] LABS: Glucose, Whole Blood 104 mg/dL (60-115)
--- NOTE | 2021-08-15 09:16 | HO.PM.IMPN ---
Subjective Subjective Date of Service: 08/15/21 Interval History: F/u on hypoxia, alcohol withdrawal and encephalopathy--Feels better, alert, no c/o pain and would like to go home. Review of Systems no sob right knee pain Physical Exam Vital Signs: Vital Signs: Last Vital Signs Temp 100.0 F 08/15/21 08:00 Pulse 85 08/15/21 08:00 Resp 18 08/15/21 08:00 BP 140/76 H 08/15/21 08:00 Pulse Ox 89 L 08/15/21 08:00 BMI result Body Mass Index 42.2 Const: Other: General: AO X 2, no acute distress Resp: decrease breath sounds bilaterally CVS: S1,S2,RRR GI: +BS, NT, no distention Skin: No rash Neuro: motor grossly intact Psych: appropriate affect MSk: right knee tenderness, no redness, some effusion Objective Data Active Medications Acetaminophen (Acetaminophen 325 Mg Tablet) 650 mg PO Q6H PRN PRN Reason: Pain, Mild (Pain Scale 1-3) Last Admin: 08/11/21 04:00 Dose: 650 mg Documented by: JULIUS Albuterol Sulfate (Albuterol Sulfate 90 Mcg 8 Gm Inhaler) 2 puff INHALE Q4H PRN PRN Reason: for wheezing Albuterol/Ipratropium (Albuterol/Iprat 2.5/0.5mg 3 Ml Ampul.Neb) 3 ml INHALE RQ6H PRN PRN Reason: Shortness of Breath Allopurinol (Allopurinol 100 Mg Tablet) 100 mg PO DAILY [facility] Last Admin: 08/14/21 09:46 Dose: 100 mg Documented by: STACY Amlodipine Besylate (Amlodipine Besylate 5 Mg Tablet) 5 mg PO DAILY [facility]; Protocol Last Admin: 08/14/21 09:46 Dose: 5 mg Documented by: STACY Dextrose (Dextrose 50 % 25 Gm/50 Ml Syringe) 25 gm IVPUSH Q15M PRN; Protocol PRN Reason: per Hypoglycemia Standing Ord. Divalproex Sodium (Divalproex Sodium 250 Mg Tablet.) 250 mg PO BID [facility] Last Admin: 08/14/21 20:44 Dose: 250 mg Documented by: NATTY Docusate Sodium (Docusate Sodium 100 Mg Capsule) 100 mg PO DAILY PRN PRN Reason: Constipation Enoxaparin Sodium (Enoxaparin Sodium 150 Mg/Ml Syringe) 150 mg SUBCUT Q12H [facility] Last Admin: 08/14/21 20:43 Dose: 150 mg Documented by: NATTY Fluoxetine HCl (Fluoxetine Hcl 20 Mg Capsule) 40 mg PO DAILY [facility] Last Admin: 08/14/21 09:47 Dose: 40 mg Documented by: STACY Folic Acid (Folic Acid 1 Mg Tablet) 1 mg PO DAILY [facility] Last Admin: 08/14/21 09:46 Dose: 1 mg Documented by: STACY Glucose (Glucose Gel 15 Gm Gel..Gram.) 15 gm PO Q15M PRN; Protocol PRN Reason: per Hypoglycemia Standing Ord. Thiamine HCl 250 mg/ Sodium (Chloride) 102.5 mls @ 210 mls/hr IV DAILY [facility] Last Infusion: 08/14/21 10:31 Dose: 0 mls/hr Documented by: STACY Insulin Human Lispro (Insulin Lispro 100 Unit/Ml 3 Ml Vial) 0 unit SUBCUT QIDACHS [facility]; Protocol Last Admin: 08/15/21 08:50 Dose: Not Given Documented by: SARIAH Non-Admin Reason: No Insulin Coverage Lactulose (Lactulose 20 Gm/30 Ml Solution) 30 gm PO Q8H [facility] Last Admin: 08/15/21 05:25 Dose: 30 gm Documented by: NATTY Metoprolol Tartrate (Metoprolol Tartrate 25 Mg Tablet) 25 mg PO BID [facility]; Protocol Last Admin: 08/14/21 20:44 Dose: 25 mg Documented by: NATTY Morphine Sulfate (Morphine Sulfate 4 Mg/Ml Cartridge) 4 mg IVPUSH Q6H PRN; Protocol PRN Reason: Pain, Severe (Pain Scale 7-10) Last Admin: 08/14/21 00:00 Dose: 4 mg Documented by: WENDY Omeprazole (Omeprazole 40 Mg Capsule.) 40 mg PO DAILY@0630 [facility] Last Admin: 08/15/21 05:26 Dose: 40 mg Documented by: NATTY Ondansetron HCl (Ondansetron Hcl 4 Mg/2 Ml Vial) 4 mg IVPUSH Q8H PRN PRN Reason: Nausea and Vomiting Pharmacy Consult (Consult Rx Perform Med Rec) 1 each MISCELLANE ONCE PRN PRN Reason: Consult order Prednisone (Prednisone 20 Mg Tablet) 40 mg PO DAILY [facility] Last Admin: 08/14/21 09:44 Dose: 40 mg Documented by: STACY Risperidone (Risperidone 0.5 Mg Tablet) 0.5 mg PO BID [facility] Last Admin: 08/07/21 10:59 Dose: Not Given Documented by: MARIAH Non-Admin Reason: See Note Sodium Chloride (0.9 % Sodium Chloride Flush 3 Ml Syringe) 3 ml IVFLUSH QSHIFT [facility] Last Admin: 08/14/21 20:44 Dose: 3 ml Documented by: SHARLAOC Thiamine HCl (Thiamine Hcl 100 Mg Tablet) 100 mg PO DAILY [facility] Last Admin: 08/09/21 09:25 Dose: 100 mg Documented by: ROSHAN Labs CBC & Chem 7: 08/11/21 05:58 08/11/21 05:58 Labs: Laboratory Results - last 24 hr 08/09/21 08/14/21 08/14/21 16:09 10:57 15:47 POC Glucose 121 H 183 H Renin 1.20 08/14/21 08/15/21 19:31 08:08 POC Glucose 161 H 104 Renin Assessment and Plan (1) Acute respiratory failure with hypoxia: Status: Acute (2) Acute on chronic respiratory failure with hypoxia and hypercapnia: Status: Acute (3) Alcohol withdrawal: Status: Acute (4) CHF (congestive heart failure): Status: Acute Plan 61-year-old male with past medical history of sleep apnea on CPAP, question of compliance, alcohol abuse with history of alcohol withdrawal, among other problems including AFib diabetes hypertension who presents to the hospital? after being found hypoxic at home. 1. Acute hypoxic hypercapnic respiratory failure-due to combination of MJ, hypoventilaion syndrome. Overall better -Use biPAP at night and PRN during the day -Breathing treatment scheduled and PRn -Prednisone to reduce to 20 -Home O2 eval before discharge 2. Alcohol withdrawal: treated with Phenobarbitl and resolved. 3. Toxic metabolic encephalopathy likely -?? Multifactorial likely secondary to alcohol withdrawal, multiple psych meds and now hepatic encephalopathy.. Nearly resolved. 4.? Karuna: on CKD 2, improved 5.? Diabetes: continue insulin 6. AFib-?on Metoprolol and Lovenox changed to Eliquis 08/15 7.Alcoholic Cirrhosis of liver--stable, lactuose to prevent HE 8. Morbid obesity, weight loss encouraged and aware associated health risks and benefits 9. \Pain--xray shows Healing fracture of the proximal shaft of the fibula that does not appear acute but is new in the interval from 2019 exam. Joint effusion. -Ortho attempted aspiration of joint but could not tolerated, no clinical evidence of infection, he has hstory of gout and this could be a manifestaton of it. -He already on Prednisone, consider colchicine PT eval before discharge He will benefit from STR ? Quality Stroke Does the patient have a stroke diagnosis?: No VTE Prior VTE?: No VTE Risk Level:: Medical - moderate - high VTE Device Contraindication: Treatment Not Indicated VTE Drug Contraindication: N/A - Med Ordered
[2021-08-15] MEDS: Acetaminophen 325 MG TABLET 650 MG PO (10:06)
[2021-08-15] MEDS: Thiamine HCL 250 MG in 0.9 % Sodium Chloride 100 ML 210 MG IV (10:06)
[2021-08-15] MEDS: amLODIPine Besylate 5 MG TABLET PO (10:07)
[2021-08-15] MEDS: Metoprolol Tartrate 25 MG TABLET PO ×2 (10:07→21:03)
[2021-08-15] MEDS: FLUoxetine HCl 20 MG CAPSULE 40 MG PO (10:07)
[2021-08-15] MEDS: Folic Acid 1 MG TABLET PO (10:07)
[2021-08-15] MEDS: Divalproex Sodium 250 MG TABLET.DR PO ×2 (10:07→21:03)
[2021-08-15] MEDS: predniSONE 20 MG TABLET 40 MG PO (10:07)
[2021-08-15] MEDS: allopurinoL 100 MG TABLET PO (10:08)
[2021-08-15] MEDS: 0.9 % Sodium Chloride Flush 3 ML SYRINGE IVFLUSH ×3 (10:08→21:06)
[2021-08-15] MEDS: Morphine Sulfate 4 MG/ML CARTRIDGE IVPUSH (11:08)
[2021-08-15 11:59] LABS: Glucose, Whole Blood 99 mg/dL (60-115)
--- NOTE | 2021-08-15 13:34 | PM.PNNEP ---
Subjective Subjective Date of Service: 08/15/21 Interval history: seen and examined no complaints Physical Exam Vital Signs: Vital Signs: Last Vital Signs Temp 100.0 F 08/15/21 11:11 Pulse 102 H 08/15/21 11:11 Resp 19 08/15/21 11:11 BP 131/64 08/15/21 11:11 Pulse Ox 89 L 08/15/21 11:11 BMI result Body Mass Index 42.2 Const: General: no acute distress HENMT: Head: Yes normocephalic and Yes atraumatic Neck: Neck: Yes supple Resp: Auscultation: diminished lung sounds Cardio: Heart sounds: S1 normal heart sound present and S2 normal heart sound present GI: Palpation (GI): Soft to palpation and nontender Extrem: General: No edema Objective Data Labs CBC & Chem 7: 08/11/21 05:58 08/11/21 05:58 Labs: Laboratory Results - last 24 hr 08/14/21 08/14/21 08/15/21 15:47 19:31 08:08 POC Glucose 183 H 161 H 104 08/15/21 11:15 POC Glucose 99 Microbiology Microbiology Results: Microbiology 08/06/21 21:12 Blood - Venous Blood Culture - Final No growth after 5 days. 08/06/21 20:27 Blood - Venous Blood Culture - Final No growth after 5 days. Procedures Date of Service Date of Service: 08/15/21 Assessment & Plan Assessment and plan (1) Acute kidney injury: Status: Acute (2) CKD (chronic kidney disease) stage 3, GFR 30-59 ml/min: Status: Acute Plan kidney function stable at baseline [facility] due to compromised kidney perfusion resolved known CKD baseline Scr ~ 1.3 mg/dl REC would resume furosemide 20 mg daily follow kidney function and electrolytes Time Spent With Patient Time: Total time spent is greater than 50% in coordination of care (as documented) at patient's floor/unit and/or counseling patient: Progress Note: Quality Stroke Does the patient have a stroke diagnosis?: No
[2021-08-15 17:21] LABS: Glucose, Whole Blood 192 mg/dL (60-115)
[2021-08-15 20:40] LABS: Glucose, Whole Blood 129 mg/dL (60-115)
[2021-08-15] MEDS: Apixaban 5 MG TABLET PO (21:03)
[2021-08-16 00:15] VITALS: PULSE 77; RESP 18; O2SAT 91
[2021-08-16 03:54] VITALS: BP 157/85; PULSE 73; RESP 18; TEMP 36.9; O2SAT 91
[2021-08-16] MEDS: Omeprazole 40 MG CAPSULE.DR PO (05:23)
[2021-08-16] MEDS: Lactulose 20 GM/30 ML SOLUTION 30 GM PO ×3 (05:23→20:29)
[2021-08-16] MEDS: Acetaminophen 325 MG TABLET 650 MG PO ×2 (05:23→12:53)
[2021-08-16 06:00] VITALS: BMI 40.8
[2021-08-16 07:24] VITALS: BP 142/88; PULSE 86; RESP 18; TEMP 36.7; O2SAT 98
[2021-08-16 08:05] LABS: Glucose, Whole Blood 112 mg/dL (60-115)
[2021-08-16] MEDS: Thiamine HCL 250 MG in 0.9 % Sodium Chloride 100 ML 210 MG IV (08:34)
[2021-08-16] MEDS: amLODIPine Besylate 5 MG TABLET PO (08:35)
[2021-08-16] MEDS: Apixaban 5 MG TABLET PO ×2 (08:35→20:29)
[2021-08-16] MEDS: Divalproex Sodium 250 MG TABLET.DR PO ×2 (08:35→20:29)
[2021-08-16] MEDS: Folic Acid 1 MG TABLET PO (08:35)
[2021-08-16] MEDS: Metoprolol Tartrate 25 MG TABLET PO ×2 (08:35→20:29)
[2021-08-16] MEDS: predniSONE 20 MG TABLET 40 MG PO (08:35)
[2021-08-16] MEDS: allopurinoL 100 MG TABLET PO (08:35)
[2021-08-16] MEDS: FLUoxetine HCl 20 MG CAPSULE 40 MG PO (08:35)
[2021-08-16] MEDS: 0.9 % Sodium Chloride Flush 3 ML SYRINGE IVFLUSH ×2 (08:36→16:39)
--- NOTE | 2021-08-16 10:24 | HO.PM.IMPN ---
Subjective Subjective Date of Service: 08/16/21 Interval History: F/u on hypoxia, alcohol withdrawal and encephalopathy--Feels better, alert, lucid no c/o pain and would like to go? home. Review of Systems no sob right knee pain is better Physical Exam Vital Signs: Vital Signs: Last Vital Signs Temp 98.1 F 08/16/21 07:24 Pulse 86 08/16/21 07:24 Resp 18 08/16/21 07:24 BP 142/88 H 08/16/21 07:24 Pulse Ox 98 08/16/21 07:24 BMI result Body Mass Index 40.8 Const: Other: General: AO X 2, no acute distress Resp: decrease breath sounds bilaterally CVS: S1,S2,RRR GI: +BS, NT, no distention Skin: No rash Neuro: motor grossly intact Psych: appropriate affect MSk: right knee tenderness, no redness, some effusion Objective Data Active Medications Acetaminophen (Acetaminophen 325 Mg Tablet) 650 mg PO Q6H PRN PRN Reason: Pain, Mild (Pain Scale 1-3) Last Admin: 08/16/21 05:23 Dose: 650 mg Documented by: NATTY Albuterol Sulfate (Albuterol Sulfate 90 Mcg 8 Gm Inhaler) 2 puff INHALE Q4H PRN PRN Reason: for wheezing Allopurinol (Allopurinol 100 Mg Tablet) 100 mg PO DAILY [facility] Last Admin: 08/16/21 08:35 Dose: 100 mg Documented by: DOBROB Amlodipine Besylate (Amlodipine Besylate 5 Mg Tablet) 5 mg PO DAILY [facility]; Protocol Last Admin: 08/16/21 08:35 Dose: 5 mg Documented by: DOBROB Apixaban (Apixaban 5 Mg Tablet) 5 mg PO BID [facility] Last Admin: 08/16/21 08:35 Dose: 5 mg Documented by: BROIsaías Dextrose (Dextrose 50 % 25 Gm/50 Ml Syringe) 25 gm IVPUSH Q15M PRN; Protocol PRN Reason: per Hypoglycemia Standing Ord. Divalproex Sodium (Divalproex Sodium 250 Mg Tablet.) 250 mg PO BID [facility] Last Admin: 08/16/21 08:35 Dose: 250 mg Documented by: DOBROB Docusate Sodium (Docusate Sodium 100 Mg Capsule) 100 mg PO DAILY PRN PRN Reason: Constipation Fluoxetine HCl (Fluoxetine Hcl 20 Mg Capsule) 40 mg PO DAILY [facility] Last Admin: 08/16/21 08:35 Dose: 40 mg Documented by: SARIAH Folic Acid (Folic Acid 1 Mg Tablet) 1 mg PO DAILY [facility] Last Admin: 08/16/21 08:35 Dose: 1 mg Documented by: SARIAH Glucose (Glucose Gel 15 Gm Gel..Gram.) 15 gm PO Q15M PRN; Protocol PRN Reason: per Hypoglycemia Standing Ord. Thiamine HCl 250 mg/ Sodium (Chloride) 102.5 mls @ 210 mls/hr IV DAILY [facility] Last Infusion: 08/16/21 09:37 Dose: 0 mls/hr Documented by: SARIAH Insulin Human Lispro (Insulin Lispro 100 Unit/Ml 3 Ml Vial) 0 unit SUBCUT QIDACHS [facility]; Protocol Last Admin: 08/16/21 08:21 Dose: Not Given Documented by: SARIAH Non-Admin Reason: No Insulin Coverage Lactulose (Lactulose 20 Gm/30 Ml Solution) 30 gm PO Q8H [facility] Last Admin: 08/16/21 05:23 Dose: 30 gm Documented by: NATTY Metoprolol Tartrate (Metoprolol Tartrate 25 Mg Tablet) 25 mg PO BID [facility]; Protocol Last Admin: 08/16/21 08:35 Dose: 25 mg Documented by: SARIAH Morphine Sulfate (Morphine Sulfate 4 Mg/Ml Cartridge) 4 mg IVPUSH Q6H PRN; Protocol PRN Reason: Pain, Severe (Pain Scale 7-10) Last Admin: 08/15/21 11:08 Dose: 4 mg Documented by: SARIAH Omeprazole (Omeprazole 40 Mg Capsule.Dr) 40 mg PO DAILY@0630 [facility] Last Admin: 08/16/21 05:23 Dose: 40 mg Documented by: NATTY Ondansetron HCl (Ondansetron Hcl 4 Mg/2 Ml Vial) 4 mg IVPUSH Q8H PRN PRN Reason: Nausea and Vomiting Pharmacy Consult (Consult Rx Perform Med Rec) 1 each MISCELLANE ONCE PRN PRN Reason: Consult order Prednisone (Prednisone 20 Mg Tablet) 40 mg PO DAILY [facility] Last Admin: 08/16/21 08:35 Dose: 40 mg Documented by: HO.DOBROB Risperidone (Risperidone 0.5 Mg Tablet) 0.5 mg PO BID [facility] Last Admin: 08/07/21 10:59 Dose: Not Given Documented by: MARIAH Non-Admin Reason: See Note Sodium Chloride (0.9 % Sodium Chloride Flush 3 Ml Syringe) 3 ml IVFLUSH QSHIFT [facility] Last Admin: 08/16/21 08:36 Dose: 3 ml Documented by: DOBROIsaías Thiamine HCl (Thiamine Hcl 100 Mg Tablet) 100 mg PO DAILY [facility] Last Admin: 08/09/21 09:25 Dose: 100 mg Documented by: IGLRUTHIE Labs CBC & Chem 7: 08/11/21 05:58 08/11/21 05:58 Labs: Laboratory Results - last 24 hr 08/15/21 08/15/21 08/15/21 11:15 17:05 20:37 POC Glucose 99 192 H 129 H 08/16/21 07:27 POC Glucose 112 Assessment and Plan (1) Acute respiratory failure with hypoxia: Status: Acute (2) Acute on chronic respiratory failure with hypoxia and hypercapnia: Status: Acute (3) Alcohol withdrawal: Status: Acute (4) CHF (congestive heart failure): Status: Acute Plan 61-year-old male with past medical history of sleep apnea on CPAP, question of compliance, alcohol abuse with history of alcohol withdrawal, among other problems including AFib diabetes hypertension who presents to the hospital? after being found hypoxic at home. 1. Acute hypoxic hypercapnic respiratory failure-due to combination of MJ, hypoventilaion syndrome. Overall better -Use biPAP at night and PRN during the day -Breathing treatment scheduled and PRn -Prednisone 20 -Home O2 eval before discharge 2. Alcohol withdrawal: treated with Phenobarbitl and resolved. 3. Toxic metabolic encephalopathy likely -?? Multifactorial likely secondary to alcohol withdrawal, multiple psych meds and now hepatic encephalopathy.. Nearly resolved. 4.? Karuna: on CKD 2, improved 5.? Diabetes: continue insulin 6. AFib-?on Metoprolol and Lovenox changed to Eliquis 08/15 7.Alcoholic Cirrhosis of liver--stable, lactuose to prevent HE 8. Morbid obesity, weight loss encouraged and aware associated health risks and benefits 9. Pain--xray shows Healing fracture of the proximal shaft of the fibula that does not appear acute but is new in the interval from 2019 exam. Joint effusion. -Ortho attempted aspiration of joint but could not tolerated, no clinical evidence of infection, he has hstory of gout and this could be a manifestaton of it. -He already on Prednisone, consider colchicine if not getting better PT eval before discharge He will benefit from STR ? Quality Stroke Does the patient have a stroke diagnosis?: No VTE Prior VTE?: No VTE Risk Level:: Medical - moderate - high VTE Device Contraindication: Treatment Not Indicated VTE Drug Contraindication: N/A - Med Ordered
[2021-08-16 11:36] VITALS: BP 144/78; PULSE 80; RESP 18; TEMP 37.1; O2SAT 97
[2021-08-16 11:36] LABS: Glucose, Whole Blood 153 mg/dL (60-115)
[2021-08-16 15:51] VITALS: BP 136/63; PULSE 111; RESP 16; TEMP 36.5; O2SAT 98
[2021-08-16 16:21] LABS: Glucose, Whole Blood 185 mg/dL (60-115)
[2021-08-16] MEDS: oxyCODONE HCl Immed Release 5 MG TABLET PO ×2 (16:38→22:48)
[2021-08-16 19:36] VITALS: BP 149/71; PULSE 72; RESP 18; TEMP 36.9; O2SAT 98
[2021-08-16 19:45] LABS: Glucose, Whole Blood 167 mg/dL (60-115)
[2021-08-17] VITALS (10 sets, daily range): BP systolic 137–166; BP diastolic 79–89; PULSE 54–92; RESP 17–20; TEMP 35.9–36.8; O2SAT 90–99; BMI 39.7
[2021-08-17] MEDS: 0.9 % Sodium Chloride Flush 3 ML SYRINGE IVFLUSH ×4 (00:44→21:50)
[2021-08-17] MEDS: Omeprazole 40 MG CAPSULE.DR PO (05:35)
[2021-08-17] MEDS: Acetaminophen 325 MG TABLET 650 MG PO (05:36)
[2021-08-17] MEDS: oxyCODONE HCl Immed Release 5 MG TABLET PO ×2 (05:36→21:50)
[2021-08-17 07:43] LABS: Glucose, Whole Blood 90 mg/dL (60-115)
[2021-08-17] MEDS: allopurinoL 100 MG TABLET PO (10:01)
[2021-08-17] MEDS: FLUoxetine HCl 20 MG CAPSULE 40 MG PO (10:01)
[2021-08-17] MEDS: Apixaban 5 MG TABLET PO ×2 (10:02→21:50)
[2021-08-17] MEDS: Thiamine HCL 250 MG in 0.9 % Sodium Chloride 100 ML 210 MG IV (10:02)
[2021-08-17] MEDS: Metoprolol Tartrate 25 MG TABLET PO ×2 (10:02→22:00)
[2021-08-17] MEDS: amLODIPine Besylate 5 MG TABLET PO (10:02)
[2021-08-17] MEDS: Divalproex Sodium 250 MG TABLET.DR PO ×2 (10:02→21:50)
[2021-08-17] MEDS: Folic Acid 1 MG TABLET PO (10:02)
[2021-08-17] MEDS: predniSONE 20 MG TABLET PO (10:02)
--- NOTE | 2021-08-17 10:28 | PM.PNNEP ---
Subjective Subjective Date of Service: 08/17/21 Interval history: seen and examined no complaints Physical Exam Vital Signs: Vital Signs: Last Vital Signs Temp 97.7 F 08/17/21 07:11 Pulse 75 08/17/21 07:11 Resp 17 08/17/21 07:11 BP 137/89 08/17/21 07:11 Pulse Ox 99 08/17/21 07:11 BMI result Body Mass Index 39.7 Const: General: no acute distress HENMT: Head: Yes normocephalic and Yes atraumatic Neck: Neck: Yes supple Resp: Auscultation: diminished lung sounds Cardio: Heart sounds: S1 normal heart sound present and S2 normal heart sound present GI: Palpation (GI): Soft to palpation and nontender Extrem: General: No edema Objective Data Labs CBC & Chem 7: 08/11/21 05:58 08/11/21 05:58 Labs: Laboratory Results - last 24 hr 08/16/21 08/16/21 08/16/21 11:33 16:15 19:38 POC Glucose 153 H 185 H 167 H 08/17/21 07:14 POC Glucose 90 Microbiology Microbiology Results: Microbiology 08/06/21 21:12 Blood - Venous Blood Culture - Final No growth after 5 days. 08/06/21 20:27 Blood - Venous Blood Culture - Final No growth after 5 days. Procedures Date of Service Date of Service: 08/17/21 Assessment & Plan Assessment and plan (1) Acute kidney injury: Status: Acute (2) CKD (chronic kidney disease) stage 3, GFR 30-59 ml/min: Status: Acute Plan kidney function at baseline [facility] due to compromised kidney perfusion resolved known CKD baseline Scr ~ 1.3 mg/dl REC furosemide 20 mg daily follow kidney function and electrolytes Time Spent With Patient Time: Total time spent is greater than 50% in coordination of care (as documented) at patient's floor/unit and/or counseling patient: Progress Note: Quality Stroke Does the patient have a stroke diagnosis?: No
[2021-08-17 11:32] LABS: Glucose, Whole Blood 112 mg/dL (60-115)
--- NOTE | 2021-08-17 12:09 | P.PNIM_ITS ---
Subjective Subjective Date of Service: 08/17/21 Interval History: F/u on hypoxia, alcohol withdrawal and encephalopathy--Feels better, alert, no sob Review of Systems no sob right knee pain is better Physical Exam Vital Signs: Vital Signs: Last Vital Signs Temp 97.1 F 08/17/21 11:04 Pulse 72 08/17/21 11:04 Resp 19 08/17/21 11:04 BP 163/88 H 08/17/21 11:04 Pulse Ox 98 08/17/21 11:04 BMI result Body Mass Index 39.7 Const: Other: General: AO X 2, no acute distress Resp: decrease breath sounds bilaterally CVS: S1,S2,RRR GI: +BS, NT, no distention Skin: No rash Neuro: motor grossly intact Psych: appropriate affect MSk: right knee tenderness, no redness, some effusion Objective Data Active Medications Acetaminophen (Acetaminophen 325 Mg Tablet) 650 mg PO Q6H PRN PRN Reason: Pain, Mild (Pain Scale 1-3) Last Admin: 08/17/21 05:36 Dose: 650 mg Documented by: CANDIE Albuterol Sulfate (Albuterol Sulfate 90 Mcg 8 Gm Inhaler) 2 puff INHALE Q4H PRN PRN Reason: for wheezing Allopurinol (Allopurinol 100 Mg Tablet) 100 mg PO DAILY [facility] Last Admin: 08/17/21 10:01 Dose: 100 mg Documented by: SARIAH Amlodipine Besylate (Amlodipine Besylate 5 Mg Tablet) 5 mg PO DAILY [facility]; Protocol Last Admin: 08/17/21 10:02 Dose: 5 mg Documented by: SARIAH Apixaban (Apixaban 5 Mg Tablet) 5 mg PO BID [facility] Last Admin: 08/17/21 10:02 Dose: 5 mg Documented by: SARIAH Dextrose (Dextrose 50 % 25 Gm/50 Ml Syringe) 25 gm IVPUSH Q15M PRN; Protocol PRN Reason: per Hypoglycemia Standing Ord. Divalproex Sodium (Divalproex Sodium 250 Mg Tablet.) 250 mg PO BID [facility] Last Admin: 08/17/21 10:02 Dose: 250 mg Documented by: BROIsaías Docusate Sodium (Docusate Sodium 100 Mg Capsule) 100 mg PO DAILY PRN PRN Reason: Constipation Fluoxetine HCl (Fluoxetine Hcl 20 Mg Capsule) 40 mg PO DAILY [facility] Last Admin: 08/17/21 10:01 Dose: 40 mg Documented by: SARIAH Folic Acid (Folic Acid 1 Mg Tablet) 1 mg PO DAILY [facility] Last Admin: 08/17/21 10:02 Dose: 1 mg Documented by: SARIAH Glucose (Glucose Gel 15 Gm Gel..Gram.) 15 gm PO Q15M PRN; Protocol PRN Reason: per Hypoglycemia Standing Ord. Thiamine HCl 250 mg/ Sodium (Chloride) 102.5 mls @ 210 mls/hr IV DAILY [facility] Last Infusion: 08/17/21 10:09 Dose: 0 mls/hr Documented by: SARIAH Insulin Human Lispro (Insulin Lispro 100 Unit/Ml 3 Ml Vial) 0 unit SUBCUT QIDACHS [facility]; Protocol Last Admin: 08/17/21 11:43 Dose: Not Given Documented by: SARIAH Non-Admin Reason: No Insulin Coverage Lactulose (Lactulose 20 Gm/30 Ml Solution) 30 gm PO Q8H [facility] Last Admin: 08/17/21 04:52 Dose: Not Given Documented by: CANDIE Non-Admin Reason: Patient Refused Metoprolol Tartrate (Metoprolol Tartrate 25 Mg Tablet) 25 mg PO BID [facility]; Protocol Last Admin: 08/17/21 10:02 Dose: 25 mg Documented by: SARIAH Omeprazole (Omeprazole 40 Mg Capsule.Dr) 40 mg PO DAILY@0630 [facility] Last Admin: 08/17/21 05:35 Dose: 40 mg Documented by: CANDIE Ondansetron HCl (Ondansetron Hcl 4 Mg/2 Ml Vial) 4 mg IVPUSH Q8H PRN PRN Reason: Nausea and Vomiting Oxycodone HCl (Oxycodone Hcl Immed Release 5 Mg Tablet) 5 mg PO Q6H PRN PRN Reason: Pain, Severe (Pain Scale 7-10) Last Admin: 08/17/21 05:36 Dose: 5 mg Documented by: CANDIE Pharmacy Consult (Consult Rx Perform Med Rec) 1 each MISCELLANE ONCE PRN PRN Reason: Consult order Prednisone (Prednisone 20 Mg Tablet) 20 mg PO DAILY [facility] Last Admin: 08/17/21 10:02 Dose: 20 mg Documented by: SARIAH Risperidone (Risperidone 0.5 Mg Tablet) 0.5 mg PO BID [facility] Last Admin: 08/07/21 10:59 Dose: Not Given Documented by: MARIAH Non-Admin Reason: See Note Sodium Chloride (0.9 % Sodium Chloride Flush 3 Ml Syringe) 3 ml IVFLUSH QSHIFT [facility] Last Admin: 08/17/21 10:01 Dose: 3 ml Documented by: BROIsaías Thiamine HCl (Thiamine Hcl 100 Mg Tablet) 100 mg PO DAILY [facility] Last Admin: 08/09/21 09:25 Dose: 100 mg Documented by: IGLESM Labs CBC & Chem 7: 08/11/21 05:58 08/11/21 05:58 Labs: Laboratory Results - last 24 hr 08/16/21 08/16/21 08/17/21 16:15 19:38 07:14 POC Glucose 185 H 167 H 90 08/17/21 11:07 POC Glucose 112 Assessment and Plan (1) Acute respiratory failure with hypoxia: Status: Acute (2) Acute on chronic respiratory failure with hypoxia and hypercapnia: Status: Acute (3) Alcohol withdrawal: Status: Acute (4) CHF (congestive heart failure): Status: Acute Plan 61-year-old male with past medical history of sleep apnea on CPAP, question of compliance, alcohol abuse with history of alcohol withdrawal, among other problems including AFib diabetes hypertension who presents to the hospital? after being found hypoxic at home. 1. Acute hypoxic hypercapnic respiratory failure-due to combination of MJ, hypoventilaion syndrome. Overall better -Use biPAP at night and PRN during the day -Breathing treatment scheduled and PRn -Prednisone 20 for 3 more day -Home O2 eval before discharge 2. Alcohol withdrawal: treated with Phenobarbitl and resolved. 3. Toxic metabolic encephalopathy likely -?? Multifactorial likely secondary to alcohol withdrawal, multiple psych meds and now hepatic encephalopathy.. Nearly resolved. 4.? Karuna: on CKD 2, improved 5.? Diabetes: continue insulin 6. AFib-?on Metoprolol and Lovenox changed to Eliquis 08/15 7.Alcoholic Cirrhosis of liver--stable, lactuose to prevent HE 8. Morbid obesity, weight loss encouraged and aware associated health risks and benefits 9. Pain--xray shows Healing fracture of the proximal shaft of the fibula that does not appear acute but is new in the interval from 2019 exam. Joint effusion. -Ortho attempted aspiration of joint but could not tolerated, no clinical evidence of infection, he has hstory of gout and this could be a manifestaton of it. -He already on Prednisone, consider colchicine if not getting better PT Eval, declined to participate on 08/12, request another eval ? Quality Stroke Does the patient have a stroke diagnosis?: No VTE Prior VTE?: No VTE Risk Level:: Medical - moderate - high VTE Device Contraindication: Treatment Not Indicated VTE Drug Contraindication: N/A - Med Ordered
[2021-08-17] MEDS: Lactulose 20 GM/30 ML SOLUTION 30 GM PO ×2 (13:45→21:50)
[2021-08-17 16:12] LABS: Glucose, Whole Blood 160 mg/dL (60-115)
[2021-08-17 20:00] LABS: Glucose, Whole Blood 114 mg/dL (60-115)
[2021-08-18 03:51] VITALS: BP 142/65; PULSE 81; RESP 18; TEMP 36.6; O2SAT 100
[2021-08-18 06:00] VITALS: BMI 40.7
[2021-08-18] MEDS: Lactulose 20 GM/30 ML SOLUTION 30 GM PO (06:16)
[2021-08-18] MEDS: Omeprazole 40 MG CAPSULE.DR PO (06:16)
[2021-08-18 07:11] VITALS: BP 140/82; PULSE 68; RESP 20; TEMP 36.1; O2SAT 100
[2021-08-18 07:26] LABS: Glucose, Whole Blood 101 mg/dL (60-115)
[2021-08-18] MEDS: Thiamine HCL 250 MG in 0.9 % Sodium Chloride 100 ML 210 MG IV (09:22)
[2021-08-18] MEDS: amLODIPine Besylate 5 MG TABLET PO (09:23)
[2021-08-18] MEDS: FLUoxetine HCl 20 MG CAPSULE 40 MG PO (09:23)
[2021-08-18] MEDS: allopurinoL 100 MG TABLET PO (09:23)
[2021-08-18] MEDS: Metoprolol Tartrate 25 MG TABLET PO (09:23)
[2021-08-18] MEDS: predniSONE 20 MG TABLET PO (09:23)
[2021-08-18] MEDS: 0.9 % Sodium Chloride Flush 3 ML SYRINGE IVFLUSH (09:23)
[2021-08-18] MEDS: Divalproex Sodium 250 MG TABLET.DR PO (09:23)
[2021-08-18] MEDS: Apixaban 5 MG TABLET PO (09:23)
[2021-08-18] MEDS: Folic Acid 1 MG TABLET PO (09:23)
[2021-08-18] MEDS: oxyCODONE HCl Immed Release 5 MG TABLET PO (09:30)
[2021-08-18] MEDS: Nicotine 21 MG PATCH.TD24 TRANSDERMA (09:48)
--- NOTE | 2021-08-18 10:35 | P.PNIM_ITS ---
Subjective Subjective Date of Service: 08/18/21 Interval History: F/u on hypoxia, alcohol withdrawal and encephalopathy--Doing welll, no respiratory diffuclty Review of Systems no sob no fever Physical Exam Vital Signs: Vital Signs: Last Vital Signs Temp 97 F 08/18/21 07:11 Pulse 68 08/18/21 07:11 Resp 20 08/18/21 07:11 BP 140/82 H 08/18/21 07:11 Pulse Ox 100 08/18/21 07:11 BMI result Body Mass Index 40.7 General: AO X 3, no acute distress Resp: CTA bilateral CVS: S1,S2,RRR GI: +BS, NT, no distention Skin: No rash Neuro: motor grossly intact Psych: appropriate affect Const: Other: General: AO X 2, no acute distress Resp: decrease breath sounds bilaterally CVS: S1,S2,RRR GI: +BS, NT, no distention Skin: No rash Neuro: motor grossly intact Psych: appropriate affect MSk: right knee tenderness, no redness, some effusion Objective Data Active Medications Acetaminophen (Acetaminophen 325 Mg Tablet) 650 mg PO Q6H PRN PRN Reason: Pain, Mild (Pain Scale 1-3) Last Admin: 08/17/21 05:36 Dose: 650 mg Documented by: CANDIE Albuterol Sulfate (Albuterol Sulfate 90 Mcg 8 Gm Inhaler) 2 puff INHALE Q4H PRN PRN Reason: for wheezing Allopurinol (Allopurinol 100 Mg Tablet) 100 mg PO DAILY ON LICENSE OF [facility] Last Admin: 08/18/21 09:23 Dose: 100 mg Documented by: MULU Amlodipine Besylate (Amlodipine Besylate 5 Mg Tablet) 5 mg PO DAILY ON LICENSE OF [facility]; Protocol Last Admin: 08/18/21 09:23 Dose: 5 mg Documented by: MULU Apixaban (Apixaban 5 Mg Tablet) 5 mg PO BID ON LICENSE OF [facility] Last Admin: 08/18/21 09:23 Dose: 5 mg Documented by: MULU Dextrose (Dextrose 50 % 25 Gm/50 Ml Syringe) 25 gm IVPUSH Q15M PRN; Protocol PRN Reason: per Hypoglycemia Standing Ord. Divalproex Sodium (Divalproex Sodium 250 Mg Tablet.) 250 mg PO BID ON LICENSE OF [facility] Last Admin: 08/18/21 09:23 Dose: 250 mg Documented by: MULU Docusate Sodium (Docusate Sodium 100 Mg Capsule) 100 mg PO DAILY PRN PRN Reason: Constipation Fluoxetine HCl (Fluoxetine Hcl 20 Mg Capsule) 40 mg PO DAILY ON LICENSE OF [facility] Last Admin: 08/18/21 09:23 Dose: 40 mg Documented by: MULU Folic Acid (Folic Acid 1 Mg Tablet) 1 mg PO DAILY ON LICENSE OF [facility] Last Admin: 08/18/21 09:23 Dose: 1 mg Documented by: MULU Glucose (Glucose Gel 15 Gm Gel..Gram.) 15 gm PO Q15M PRN; Protocol PRN Reason: per Hypoglycemia Standing Ord. Thiamine HCl 250 mg/ Sodium (Chloride) 102.5 mls @ 210 mls/hr IV DAILY ON LICENSE OF [facility] Last Infusion: 08/18/21 09:52 Dose: 0 mls/hr Documented by: MULU Insulin Human Lispro (Insulin Lispro 100 Unit/Ml 3 Ml Vial) 0 unit SUBCUT QIDACHS ON LICENSE OF [facility]; Protocol Last Admin: 08/18/21 07:27 Dose: Not Given Documented by: MULU Non-Admin Reason: No Insulin Coverage Comments: poc 101 Lactulose (Lactulose 20 Gm/30 Ml Solution) 30 gm PO Q8H ON LICENSE OF [facility] Last Admin: 08/18/21 06:16 Dose: 30 gm Documented by: WENDY Metoprolol Tartrate (Metoprolol Tartrate 25 Mg Tablet) 25 mg PO BID ON LICENSE OF [facility]; Nena col Last Admin: 08/18/21 09:23 Dose: 25 mg Documented by: MULU Nicotine (Nicotine 21 Mg Patch.Td24) 21 mg TRANSDERMA DAILY ON LICENSE OF [facility] Last Admin: 08/18/21 09:48 Dose: 21 mg Documented by: MULU Omeprazole (Omeprazole 40 Mg Capsule.Dr) 40 mg PO DAILY@0630 ON LICENSE OF [facility] Last Admin: 08/18/21 06:16 Dose: 40 mg Documented by: WENDY Ondansetron HCl (Ondansetron Hcl 4 Mg/2 Ml Vial) 4 mg IVPUSH Q8H PRN PRN Reason: Nausea and Vomiting Oxycodone HCl (Oxycodone Hcl Immed Release 5 Mg Tablet) 5 mg PO Q6H PRN PRN Reason: Pain, Severe (Pain Scale 7-10) Last Admin: 08/18/21 09:30 Dose: 5 mg Documented by: MULU Pharmacy Consult (Consult Rx Perform Med Rec) 1 each MISCELLANE ONCE PRN PRN Reason: Consult order Prednisone (Prednisone 20 Mg Tablet) 20 mg PO DAILY ON LICENSE OF [facility] Last Admin: 08/18/21 09:23 Dose: 20 mg Documented by: MULU Risperidone (Risperidone 0.5 Mg Tablet) 0.5 mg PO BID ON LICENSE OF [facility] Last Admin: 08/07/21 10:59 Dose: Not Given Documented by: MARIAH Non-Admin Reason: See Note Sodium Chloride (0.9 % Sodium Chloride Flush 3 Ml Syringe) 3 ml IVFLUSH QSHIFT ON LICENSE OF [facility] Last Admin: 08/18/21 09:23 Dose: 3 ml Documented by: MULU Thiamine HCl (Thiamine Hcl 100 Mg Tablet) 100 mg PO DAILY ON LICENSE OF [facility] Last Admin: 08/09/21 09:25 Dose: 100 mg Documented by: ROSHAN Labs CBC & Chem 7: 08/11/21 05:58 08/11/21 05:58 Labs: Laboratory Results - last 24 hr 08/17/21 08/17/21 08/17/21 11:07 16:06 19:51 POC Glucose 112 160 H 114 08/18/21 07:21 POC Glucose 101 Assessment and Plan (1) Acute respiratory failure with hypoxia: Status: Acute (2) Acute on chronic respiratory failure with hypoxia and hypercapnia: Status: Acute (3) Alcohol withdrawal: Status: Acute (4) CHF (congestive heart failure): Status: Acute Plan 61-year-old male with past medical history of sleep apnea on CPAP, question of compliance, alcohol abuse with history of alcohol withdrawal, among other problems including AFib diabetes hypertension who presents to the hospital? after being found hypoxic at home. 1. Acute hypoxic hypercapnic respiratory failure-due to combination of MJ, hypoventilaion syndrome--hypoxia resolved -Use biPAP at night and PRN during the day -Breathing treatment scheduled and PRn -Prednisone 20 for 2 more day -Home O2 eval before discharge 2. Alcohol withdrawal: treated with Phenobarbitl and resolved. 3. Toxic metabolic encephalopathy likely -?? Multifactorial likely secondary to alcohol withdrawal, multiple psych meds and now hepatic encephalopathy. Resolved 4.? Karuna: on CKD 2, improved 5.? Diabetes: continue insulin 6. AFib-?on Metoprolol and Lovenox changed to Eliquis 08/15 7.Alcoholic Cirrhosis of liver--stable, lactuose to prevent HE 8. Morbid obesity, weight loss encouraged and aware associated health risks and benefits 9. Pain--xray shows Healing fracture of the proximal shaft of the fibula that d oes not appear acute but is new in the interval from 2019 exam. Joint effusion. -Ortho attempted aspiration of joint but could not tolerated, no clinical evidence of infection, he has hstory of gout and this could be a manifestaton of it. -He already on Prednisone, consider colchicine if not getting better PT is recommended short-term rehab Quality Stroke Does the patient have a stroke diagnosis?: No VTE Prior VTE?: No VTE Risk Level:: Medical - moderate - high VTE Device Contraindication: Treatment Not Indicated VTE Drug Contraindication: N/A - Med Ordered
[2021-08-18 11:03] VITALS: BP 157/86; PULSE 68; RESP 20; TEMP 36.1; O2SAT 97
[2021-08-18 11:18] LABS: Glucose, Whole Blood 98 mg/dL (60-115)
--- NOTE | 2021-08-18 13:16 | P.DS_ITS ---
DS: Providers Provider Date of Service: 08/18/21 Date of admission: 08/07/21 02:55 Primary care physician: EVELYN Mckoy Consults: 08/07/21 09:27 Consult to Gastroenterology Routine Consulting Provider: [facility] Reason for consultation: encephalopathy, liver cirrosis /ascitis/pannculitis Has provider been notified: No 08/07/21 10:41 Consult to Critical Care Routine Consulting Provider: Ander Rodriguez Reason for consultation: encephalopathy/acute hypoxemic resp failuse-level of care Has provider been notified: No 08/07/21 12:00 Consult to Neurology Routine Consulting Provider: [facility] Reason for consultation: encephalopathy unclear etiology Has provider been notified: No 08/09/21 14:13 Consult to Nephrology Routine Consulting Provider: Matthew Morrissey Reason for consultation: karuna in setting of chf /liver cirrosis , ascitis Has provider been notified: No 08/10/21 07:59 Consult to Pulmonology Routine Consulting Provider: Solo Aviles Reason for consultation: acute hypoxememia -unclear etio/very slow response to treatment Has provider been notified: No 08/12/21 12:08 Consult to Orthopedics Routine Consulting Provider: Nader Tai Reason for consultation: Healing fracture of the proximal shaft of the fibula that does not appear a Has provider been notified: No DS: Diagnosis Discharge Diagnosis (1) Acute respiratory failure with hypoxia: Status: Acute (2) Acute on chronic respiratory failure with hypoxia and hypercapnia: Status: Acute (3) Alcohol withdrawal: Status: Acute (4) CHF (congestive heart failure): Status: Acute DS: Summary Hospital Course Hospital Course: Chief Complaint: hypoxic ?61-year-old male with past medical history of AFib, alcohol dependency with history of alcohol withdrawal, anxiety, CHF, depression, diabetes, hypertension, sleep apnea, history of Wernicke is encephalopathy, who presents to the hospital after being found short of breath at home.? History is obtained mostly from ED physicians? as IM, unable to get much history from the patient himself he is short of breath, and not really cooperating., reports that his called EMS, tried to reach the but there is no phone number on file.? It appears that patient was found short of breath in bed? And not moving well.? Question of fall, of note patient has history of severe alcohol withdrawal and cardiac arrest in 2019., on arrival of EMS patient was found hypoxic in the 80s.? He has also been drinking, patient reports that his last drink was yesterday, unclear if patient had any withdrawal seizures and now much more history can be obtained regarding the circumstances? that brought him to the hospital. ? Full review of system cannot be obtained Past medical history per EMR On arrival to the ED patient found to have tachycardia, satting 85% on room air? 95%. Patient placed on BiPAP for few hours, on my interview patient was on for L of nasal cannula satting ? Labs are significant for WBC? count of 11.3, hemoglobin 13.8, PT of 15.7, in our of 1.4, pH was found to be 7.33, with a CO2 of 72, an oxygen of 105, potassium? 5.8, BUN of 31, creatinine of 1.52 with a baseline of 1.1, UA negative, BNP of 500 which is significantly lower than his baseline. ? Repeat VBG post BiPAP shows improvement in his CO2 as well as pH ? Patient received IV fluids, and was started on phenobarb and will be admitted for further management. Hospital course: 1. He presented with acute acute hypoxic hypercapnic respiratory failure, covid was negative, there was no evidence of pneumomia. He presentation was likely due to combination of MJ, hypoventilaion syndrome and exacerbation of COPD and agravated by Encephalopathy. Management consisted of BiPAP to help with Hypercarbia, breathing treatment with Duoneb scheduled and PRN, intravenous steroid also play major role in recovery and gradually over the cours of hospitalization he improved and no longer depended on BiPAP and hypoxia has resolved. At this point, he will continue use of Bronchidilators and Predniosone will be tappered off with 10 mg daily for evidence3 more days. He is stating well with 2 liters of oxygen at 97 2. Alcohol withdrawal with associated encephalopathy--Treated with phenobarbital, vitamins and this has resolved. 3. Toxic metabolic encephalopathy likely -?? Multifactorial likely secondary to alcohol withdrawal, multiple psych meds and now hepatic encephalopathy. Underlying issues addressed and ammonia leval was higher than his baseline around 65 and treated with lactulose. He is presently lucid. ? 4.? Karuna: on CKD 2, Improved and last Creatinine on 08/11 1.35 which is within his baseline 5.? Diabetes: resume metformin 6. AFib-?on Metoprolol for rate controll and Eliquis for anticoagulation 7.Alcoholic Cirrhosis of liver--stable, lactuose to prevent HE 8. Morbid obesity, weight loss encouraged and aware associated health risks and benefits 9. Right knee Pain--xray shows?Healing fracture of the proximal shaft of the fibula that does not appear acute but is new in the interval from 2019 exam. Joint effusion. -Ortho attempted aspiration of joint but could not tolerated, no clinical evidence of infection, he has hstory of gout and this could be a manifestaton of it. -He has been on Prednisonce with imrprovement. Patient has had fall before coming all probably from confusion--has bruses on around shoulder. PT recommends short term rehab Time Spent with Patient Time attestation: Total time spent providing and/or coordinating discharge services: Discharge coordination time: Greater than 30 minutes Quality: Stroke Does the patient have a stroke diagnosis?: No Physical Exam Vital Signs: Vital Signs: Last Vital Signs Temp 97 F 08/18/21 11:03 Pulse 68 08/18/21 11:03 Resp 20 08/18/21 11:03 BP 157/86 H 08/18/21 11:03 Pulse Ox 97 08/18/21 11:03 BMI result Body Mass Index 40.7 DS: Data Data Completed and Pending Labs on day of discharge: Laboratory Results - last 24 hr 08/17/21 08/17/21 08/18/21 16:06 19:51 07:21 POC Glucose 160 H 114 101 08/18/21 11:03 POC Glucose 98 Discharge Plan Discharge Anticipated Discharge Date/Time: 08/18/21 13:51 Patient Disposition: Xfer SNF Discharge Diagnosis: Acute on chronic hypoxic, hypercarbia respiratory failure Referrals: Ort[facility] Deluca, [facility] [Primary Care Provider] - 1 Week Discharge Medications: New prednisone 10 mg tablet 10 mg PO DAILY Qty: 3 0RF Continued (DME) blood-glucose meter [FreeStyle Lite Meter] Kit See Rx Instructions .ROUTE .MEDSUPPLY Qty: 1 0RF Rx Instructions: check sugar twice a day albuterol sulfate 90 mcg/actuation HFA aerosol inhaler 2 puff inhalation Q4-6H PRN (Reason: for wheezing) Qty: 8.5 0RF (DME) lancets [FreeStyle Lancets] 28 gauge misc See Rx Instructions .ROUTE .MEDSUPPLY Qty: 100 2RF Rx Instructions: check sugar twice a day divalproex 250 mg tablet,delayed release (DR/EC) 250 mg PO BID Qty: 60 2RF Eliquis 5 mg tablet 5 mg PO BID Qty: 60 2RF metoprolol tartrate 25 mg tablet 25 mg PO BID Qty: 60 2RF risperidone 0.5 mg tablet 0.5 mg PO BID Qty: 60 2RF omeprazole 20 mg capsule,delayed release(DR/EC) 40 mg PO DAILY@0630 Qty: 60 3RF amlodipine 5 mg tablet 5 mg PO DAILY Qty: 30 2RF fluoxetine 40 mg capsule 40 mg PO DAILY Qty: 30 3RF lorazepam 0.5 mg tablet 0.5 mg PO BID PRN (Reason: anxiety) 30 Days Qty: 60 0RF furosemide 20 mg tablet 30 mg PO DAILY 30 Days Qty: 45 1RF allopurinol 100 mg tablet 100 mg PO DAILY 90 Days Qty: 90 1RF naproxen 500 mg tablet 500 mg PO BID PRN (Reason: for pain) Qty: 60 3RF metformin 850 mg tablet 850 mg PO DAILY 0RF Discharge Orders: Discharge Order (Routine); Ordered 08/18/21 Ordered By: Ross Lr Diet: advance to usual diet, diabetic diet and low fat, low cholesterol Activity on Discharge: As tolerated Stand Alone Forms: Patient Portal Discharge page Care Plan Goals: Full recovery from acute hypoxic respiratory failure Health Concerns: COPD, chronic respiratory failure, hypoventilation syndrome, alcohol withdrawal, hepatic encephalopathy obesity Plan of Treatment: To short-term rehab Assessment: As above
[2021-08-18 13:49] LABS: COVID-19 Test Negative (Negative)
--- NOTE | 2021-08-18 14:07 | PC.NURSE ---
Addendum entered by Hawa Al RN 08/18/21 17:49: OFF UNIT WITH [facility] AT 1749 FOR DISCHARGE. Original Note: REPORT TO ANIKET PETTY RN (JHONATHAN) GIVEN. IV AND TELEMONITOR REMOVED. FAMILY UPDATED ON TRANSFER TO [facility] BY CASE MANAGEMENT.
--- NOTE | 2021-08-18 14:40 | MHC.CM.PN ---
IMM 08/18/21 Male 61 DX Hypoxia He is discharged to [facility] via BLS. All dc info has been sent. He will transfer at 5pm today. His and his HCP are in agreement with Dispo. His brother Ortiz/HCP will bring the patients CPAP to [facility] today.
[2021-08-18 15:19] VITALS: BP 141/73; PULSE 80; RESP 20; TEMP 36.9; O2SAT 99
[2021-08-18 16:00] LABS: Glucose, Whole Blood 137 mg/dL (60-115)
== END 2021-08-18 17:49 | disposition skilled nursing facility (03) | DRG 291 ==
LOC: HO.ED 23:22 → HO.EDOVER 08-07 03:01 → HO.IMC 08-07 17:32
PROVIDERS: Emergency Medicine; Internal Medicine; Internal Medicine Nephrology; Admitting Provider Internal Medicine; Emergency Provider Emergency Medicine Emergency Medical Services; PCP Nurse Practitioner Family; Visit Provider Internal Medicine
DX: I13.0 Hypertensive heart and chronic kidney disease with heart failure and stage 1 through stage 4 chronic kidney disease, or unspecified chronic kidney disease (principal); G92.8 Other toxic encephalopathy; J96.22 Acute and chronic respiratory failure with hypercapnia; J96.21 Acute and chronic respiratory failure with hypoxia; I50.33 Acute on chronic diastolic (congestive) heart failure; N17.9 Acute kidney failure, unspecified; F10.231 Alcohol dependence with withdrawal delirium; E66.2 Morbid (severe) obesity with alveolar hypoventilation; Z68.41 Body mass index [BMI] 40.0-44.9, adult; E51.2 Wernicke's encephalopathy; J98.11 Atelectasis; E87.4 Mixed disorder of acid-base balance; J44.1 Chronic obstructive pulmonary disease with (acute) exacerbation; I48.91 Unspecified atrial fibrillation; F17.210 Nicotine dependence, cigarettes, uncomplicated; E11.22 Type 2 diabetes mellitus with diabetic chronic kidney disease; Z71.6 Tobacco abuse counseling; K70.31 Alcoholic cirrhosis of liver with ascites; F41.9 Anxiety disorder, unspecified; E87.5 Hyperkalemia; N18.2 Chronic kidney disease, stage 2 (mild); Z20.822 Contact with and (suspected) exposure to COVID-19; Z99.89 Dependence on other enabling machines and devices; Z79.01 Long term (current) use of anticoagulants; Z79.899 Other long term (current) drug therapy
CPT/HCPCS: 36415; 36600; 70450; 71250; 72125; 73560; 74176; 80048; 80076; 80164; 81001; 82077; 82088; 82140; 82436; 82550; 82803; 82947; 83605; 83735; 83880; 84133; 84244; 84300; 84484; 84540; 85025; 85027; 85610; 87040; 87635; 93005; 93306; 94640; 94660; 95816; 96361; 96365; 96372; 96375; 97110; 97162; 97530; 99223; 99285; 99291; J1170; J1650; J1940; J2060; J2270; J2560; J3411; P9047; Q9957

== ENCOUNTER → 2021-09-16 09:46 | Outpatient (BNVA) | payer MEDICARE, SELFPAY | PROVIDERS: PCP Nurse Practitioner Family; Visit Provider Nurse Practitioner Family | DX: G47.33 Obstructive sleep apnea (adult) (pediatric) (principal); J96.21 Acute and chronic respiratory failure with hypoxia; E66.2 Morbid (severe) obesity with alveolar hypoventilation; Z68.41 Body mass index [BMI] 40.0-44.9, adult | CPT/HCPCS: 99202 ==

== ENCOUNTER → 2021-10-14 14:15 | Outpatient (BNVA) | payer MEDICARE, SELFPAY | PROVIDERS: PCP Nurse Practitioner Family; Visit Provider Internal Medicine | DX: G47.33 Obstructive sleep apnea (adult) (pediatric) (principal); E66.01 Morbid (severe) obesity due to excess calories; Z68.41 Body mass index [BMI] 40.0-44.9, adult | CPT/HCPCS: 99202 ==

== ENCOUNTER → 2021-11-26 20:28 | Outpatient (REF) | payer MEDICARE, SELFPAY | LOC: HO.SL 20:28 | PROVIDERS: Visit Provider Nurse Practitioner Family | DX: G47.33 Obstructive sleep apnea (adult) (pediatric) (principal); I48.91 Unspecified atrial fibrillation; J96.21 Acute and chronic respiratory failure with hypoxia; E66.2 Morbid (severe) obesity with alveolar hypoventilation; J98.4 Other disorders of lung; E66.9 Obesity, unspecified; R06.83 Snoring; R40.0 Somnolence | CPT/HCPCS: 95810 ==

== ENCOUNTER 2022-01-24 20:49 | Inpatient (IN) | payer MEDICARE, OTHER, SELFPAY ==
--- NOTE | ~2022-01-24 | CT_ITS ---
EXAMINATION: CT HEAD WITHOUT CONTRAST (STROKE PROTOCOL) CLINICAL INFORMATION: Stroke protocol. Confused, altered mental status. COMPARISON: CT had noncontrast 01/24/2022, 08/06/2021 TECHNIQUE: Contiguous axial imaging was performed from the skull base to vertex without intravenous administration of contrast. This CT examination was performed using dose optimization techniques as appropriate, variously including the following: *Automated exposure control *Adjustment of mA and/or kV according to patient size (this includes techniques or standardized protocols for targeted exams where dose is matched to indication/reason for exam; i.e. extremities or head) *Use of iterative reconstruction technique DLP: 920 mGy-cm FINDINGS: There is no intracranial hemorrhage, hematoma, or extra-axial fluid collection. The ventricles are normal in size. There is no hydrocephalus, edema, or mass effect. There is some mild volume loss with accentuation of the cortical sulci and fissures similar to prior exam. The dawn-white matter differentiation is similar to prior studies. There is some minor periventricular white matter gliosis adjacent to the frontal horns and vague decreased attenuation posterior left occipital lobe similar to prior study. No dense vessel sign. No acute territorial infarct or visible mass lesion on noncontrast exam. The calvarium appears intact. There is no pneumocephalus or orbital emphysema. The visualized sinuses and middle ears and mastoid air cells show no significant mucosal thickening. There are no air-fluid levels. Results called to MOLLY Jain in the emergency department at [address]/CT head for stroke IMPRESSION: No acute intracranial abnormality.
--- NOTE | ~2022-01-24 | CT_ITS ---
EXAMINATION: CT HEAD WITHOUT CONTRAST CLINICAL INFORMATION: Acute mental status change COMPARISON: Head CT 08/06/2021 TECHNIQUE: Imaging was performed from the skull base to vertex without intravenous administration of contrast. This CT examination was performed using dose optimization techniques as appropriate, variously including the following: *Automated exposure control *Adjustment of mA and/or kV according to patient size (this includes techniques or standardized protocols for targeted exams where dose is matched to indication/reason for exam; i.e. extremities or head) *Use of iterative reconstruction technique Total exam dose length product: 865 mGy-cm FINDINGS: No intra or extra-axial fluid collection, hemorrhage, or mass. No ventriculomegaly. No midline shift or herniation. Basal cisterns are patent. Mir-white matter differentiation is maintained. No territorial encephalomalacia. Proportional prominence of the ventricles and sulcal spaces is consistent with mild volume loss. Patchy periventricular and deep white matter hypoattenuation is consistent with mild small vessel ischemic changes. Small hypoattenuating focus in the high left posterior frontal subcortical white matter is unchanged. No calvarial fracture or soft tissue abnormality. 2.8 cm mucous retention cyst in the left maxillary antrum. Partial opacification of a few inferior mastoid air cells, nonspecific. CT/CT head/brain wo con IMPRESSION: 1. No acute intracranial pathology.
--- NOTE | ~2022-01-24 | XR_ITS ---
EXAMINATION: XR CHEST CLINICAL INFORMATION: Acute mental status change COMPARISON: Chest x-ray 07/14/2020 TECHNIQUE: Frontal view of the chest was obtained. FINDINGS: No airspace consolidation, pleural effusion, or pneumothorax. Cardiac silhouette is mildly enlarged, unchanged. Prominence of the central pulmonary vascular markings. No evidence of pulmonary edema. No acute osseous injury. XR/XR chest 1V IMPRESSION: No acute pulmonary process.
[2022-01-24 21:01] VITALS: BP 132/68; BP 148/83; PULSE 89; PULSE 94; RESP 16; TEMP 36.9; O2SAT 95; BMI 39.0
--- NOTE | 2022-01-24 21:08 | ECG_ITS ---
Test Reason : SOB Blood Pressure : / mmHG Vent. Rate : 082 BPM Atrial Rate : 000 BPM P-R Int : 000 ms QRS Dur : 088 ms QT Int : 374 ms P-R-T Axes : 000 082 098 degrees QTc Int : 436 ms Atrial fibrillation Low voltage QRS Abnormal ECG When compared with ECG of 06-AUG-2021 20:09, No significant change was found Referred By: Dione Mcadams Electronically Signed By:OLGA GRANDA MD
--- NOTE | 2022-01-24 21:29 | ED_ITS ---
HPI - Weakness General Chief complaint: General Medical Stated complaint: general malise Time Seen by Provider: 01/24/22 21:07 Source: patient and old records reviewed Mode of arrival: EMS Limitations: altered mental status (slightly confused) History of Present Illness HPI Narrative: 61 yo male with hx of CHF, ETOH abuse, morbid obesity, afib on eliquis, MJ prior trach with self removal, chronic back pain, diabetes, obesity hypoventilation syndrome, chronic respiratory failure comes in tonight after family called 911 as patient reportedly has been drinking fireballs for the past few days, not eating and not taking care of himself. Patient found to be hypoxic in mid 80s. He denies falls or trauma. He cannot tell me much other than I have been sleeping a lot. MD Complaint: generalized weakness, lack of energy and difficulty walking Onset (ago): day(s) (2) Duration: progressively worsening Location: generalized Severity: moderate Quality: dull Relieving factors: rest Exacerbating factors: exertion and other (ETOH) Context: other (admits to drinking) Associated symptoms: loss of appetite and shortness of breath Related Data Home Medications Medication Instructions Recorded Confirmed albuterol sulfate 90 mcg/actuation 2 puff inhalation QID 10/14/21 aerosol inhaler Previous Rx's Medication Instructions Recorded blood-glucose meter (FreeStyle #1 ea 09/03/20 Lite Meter kit) lancets 28 gauge (FreeStyle #100 ea 02/02/21 Lancets) naproxen 500 mg tablet 500 mg PO BID PRN for pain #60 tabs 07/19/21 albuterol sulfate 90 mcg/actuation 2 puff inhalation Q4-6H PRN for 09/30/21 aerosol inhaler wheezing #8.5 grams omeprazole 20 mg capsule,delayed 40 mg PO DAILY@0630 #60 caps 10/07/21 release fluoxetine 40 mg capsule 40 mg PO DAILY #90 caps 11/06/21 allopurinol 100 mg tablet 100 mg PO DAILY 90 days #90 tabs 11/15/21 furosemide 20 mg tablet 30 mg PO DAILY 30 days #45 tabs 11/15/21 metformin 850 mg tablet 850 mg PO DAILY #90 tabs 11/15/21 risperidone 0.5 mg tablet 0.5 mg PO BID #60 tabs 11/15/21 apixaban 5 mg tablet (Eliquis) 5 mg PO BID #60 tabs 12/01/21 cyclobenzaprine 10 mg tablet 10 mg PO BEDTIME PRN muscle spasm 12/13/21 30 days #60 tabs amlodipine 5 mg tablet 5 mg PO DAILY #30 tabs 01/05/22 divalproex 250 mg tablet,delayed 250 mg PO BID #60 tabs 01/05/22 release lorazepam 0.5 mg tablet 0.5 mg PO BID PRN anxiety 30 days 01/05/22 #60 tabs metoprolol tartrate 25 mg tablet 25 mg PO BID #60 caps 01/05/22 Allergies Allergy/AdvReac Type Severity Reaction Status Date / Time No Known Allergies Allergy Verified 10/14/21 15:13 [No Known Allergies*] Review of Systems Review of Systems: ROS unable to be obtained due to altered mental status [facility] Past Medical History Attestation statement: The following information was validated with the patient. Medical History Afib Alcohol dependency Anxiety Arthritis CHF (congestive heart failure) Cirrhosis CKD (chronic kidney disease) stage 3, GFR 30-59 ml/min Depression Diabetes Diastolic CHF, acute on chronic Fever of unknown origin Gout HTN (hypertension) Left atrial enlargement Morbid obesity Obesity (BMI 35.0-39.9 without comorbidity) Obstructive sleep apnea (adult) (pediatric) Seroma due to trauma Sleep apnea Wernicke encephalopathy Surgical History No pertinent past surgical history Family History Family History Father Lung cancer Mother No problems noted. Maternal Aunt History of heart attack Sister No problems noted. Brother Cancer of kidney Brother No problems noted. Brother No problems noted. Brother No problems noted. Brother No problems noted. Brother No problems noted. Other Substance use disorder Social History Social History Household Members: Spouse Housing: House Do you presently have visiting nurse or other home services: No Alcohol intake: current Alcohol intake frequency: 0-2 drinks per day Patient Tobacco Use Status: Current everyday Tobacco user Tobacco use type: Cigarette Cigarette Packs Per Day: 1 Cigarettes Per Day: 20.0 e-Cigarette/Vaping Use: Never Used Second Hand Smoke Exposure: Yes Advance Directives: No Advance Directives Information Provided: No service: Yes Current occupational status: unemployed Physical Exam Vital Signs: Vital Signs: Last Vital Signs Temp 98.4 F 01/24/22 21:01 Pulse 90 01/24/22 22:04 Resp 17 01/24/22 22:26 BP 150/103 H 01/24/22 22:04 Pulse Ox 100 01/24/22 22:04 O2 Del Method 01/24/22 22:04 O2 Flow Rate 15 01/24/22 22:04 BMI result Body Mass Index 39.0 Appearance: appears intoxicated, slurring words. Oriented X2 (time). Mild acute distress. Eyes: Pupils equal, round and reactive to light. ENT: Pharynx normal. Neck: Normal inspection. Neck supple. short neck CVS:irregular heart rate and rhythm. Pulses normal. Respiratory:Mild respiratory distress. Breath sounds very diminished, poor inspiratory effort Abdomen: Soft and non-tender. Obese : underwear are soiled Skin: Skin warm and dry. Normal skin color. Extremities: bilateral legs trace pitting edema Neuro: Oriented X 2 (time). No motor deficit. No sensory deficit. Course Course Course Narrative: bipap for MJ and obesity hypoventilation syndrome not infection or severe sepsis negative ETOH level, normal BS, normal ammonia, ABG compensated and normal - u tox pending. bipap given MJ and nighttime somnolence this is not rescue. more awake, tremulous, tongue fasciculations - will start on phenobarb, ETOH negative this could be ETOH withdrawal, will continue on NIPPV not for rescue but given MJ MDM - Weakness MDM Narrative Medical decision making narrative: 61 yo male with hx of CHF, ETOH abuse, morbid obesity, afib on eliquis, MJ prior trach with self removal, chronic back pain, diabetes, obesity hypoventilation syndrome, chronic respiratory failure here telling me I have b een sleeping a lot x 2 days at this time will need labs, CXR, IV lasix, start on bipap given possible retention given his mentation. Tox labs - CT head for ICH given DOAC use and AMS. Anticipate admission. Hx of similar presentations in past. Lab Data Result diagrams: 01/24/22 21:25 01/24/22 21:25 Labs: Lab Results 07/01/24/22 01/24/22 Range/Units 21:25 21:25 21:25 WBC 7.4 (4.8-10.8) X10*3/uL RBC 5.18 (4.60-5.80) X10*6/uL Hgb 13.9 L (14.0-18.0) g/dl Hct 46.9 (42.0-52.0) % MCV 90.5 (80.0-98.0) fL MCH 26.8 L (27.0-33.0) pg MCHC 29.6 L (31.0-36.0) g/dl RDW 16.9 H (11.0-16.0) % Plt Count 134 L D (160-400) X10*3/uL MPV 11.3 (9.4-12.4) fL Immature Gran % (Auto) 0.3 (0.0-0.4) % Neut % (Auto) 62.6 (45-73) % Lymph % (Auto) 20.7 (20-40) % Kidder % (Auto) 13.6 H (2-11) % Eos % (Auto) 1.9 (0-4) % Baso % (Auto) 0.9 (0-2) % Lymph # (Auto) 1.5 (1.2-4.9) X10*3/uL Kidder # (Auto) 1.0 (0.1-1.2) X10*3/uL Eos # (Auto) 0.1 (0.0-0.4) X10*3/uL Baso # (Auto) 0.1 (0.0-0.2) X10*3/uL Abs Immat Gran (auto) 0.02 (0.00-0.03) X10*3/uL Absolute Neuts (auto) 4.6 (2.0-8.3) x10*3/uL Absolute Nucleated RBC 0.000 (0.0-0.012) X10*3/uL Nucleated RBC % (auto) 0.0 (0.0-0.2) /100WBC PT (10.0-13.1) SEC INR (0.9-1.1) O2 Saturation % ABG pH at Pt Temp (7.35-7.45) ABG pCO2 at Pt Temp (32-45) mmHg ABG pO2 at Pt Temp (83-108) mmHg ABG HCO3 (22-26) mmol/L ABG Base Excess (Actual) mmol/L Sodium 139 (135-145) mmol/L Potassium 4.6 (3.3-5.1) mmol/L Chloride 94 L (96-108) mmol/L Carbon Dioxide 33 H (22-29) mmol/L Anion Gap 17 (12-20) BUN 25 H (9-16) mg/dL Creatinine 1.47 H (0.5-1.4) mg/dL Estim Creat Clear Calc 76.8 Estimated GFR 49 Random Glucose 107 (60-115) mg/dL Calcium 9.0 D (8.4-10.2) mg/dL Magnesium 1.6 (1.6-2.6) mg/dL Total Bilirubin 2.0 H (0.0-1.0) mg/dL Direct Bilirubin 1.4 H (0.0-0.5) mg/dL AST 15 D (5-37) U/L ALT 7 (0-40) U/L Alkaline Phosphatase 81 D (39-117) U/L Ammonia 22 (13-55) umol/L Troponin I High Sens (<3.5-35.0) ng/L B-Natriuretic Peptide (<100) pg/mL Total Protein 7.4 (6.5-8.0) g/dL Albumin 3.6 (3.5-5.0) g/dL Lipase 22 (8-78) U/L Salicylates < 5.0 L (15-30) mg/dL Acetaminophen < 1 (<30) mcg/mL Valproic Acid Cancelled Ethyl Alcohol mg/dL COVID-19 (LINDEN) (Negative) COVID-19 Clin Com 01/24/22 01/24/22 01/24/22 Range/Units 21:25 21:25 21:25 WBC (4.8-10.8) X10*3/uL RBC (4.60-5.80) X10*6/uL Hgb (14.0-18.0) g/dl Hct (42.0-52.0) % MCV (80.0-98.0) fL MCH (27.0-33.0) pg MCHC (31.0-36.0) g/dl RDW (11.0-16.0) % Plt Count (160-400) X10*3/uL MPV (9.4-12.4) fL Immature Gran % (Auto) (0.0-0.4) % Neut % (Auto) (45-73) % Lymph % (Auto) (20-40) % Kidder % (Auto) (2-11) % Eos % (Auto) (0-4) % Baso % (Auto) (0-2) % Lymph # (Auto) (1.2-4.9) X10*3/uL Kidder # (Auto) (0.1-1.2) X10*3/uL Eos # (Auto) (0.0-0.4) X10*3/uL Baso # (Auto) (0.0-0.2) X10*3/uL Abs Immat Gran (auto) (0.00-0.03) X10*3/uL Absolute Neuts (auto) (2.0-8.3) x10*3/uL Absolute Nucleated RBC (0.0-0.012) X10*3/uL Nucleated RBC % (auto) (0.0-0.2) /100WBC PT 20.2 H (10.0-13.1) SEC INR 1.7 H (0.9-1.1) O2 Saturation % ABG pH at Pt Temp (7.35-7.45) ABG pCO2 at Pt Temp (32-45) mmHg ABG pO2 at Pt Temp (83-108) mmHg ABG HCO3 (22-26) mmol/L ABG Base Excess (Actual) mmol/L Sodium (135-145) mmol/L Potassium (3.3-5.1) mmol/L Chloride (96-108) mmol/L Carbon Dioxide (22-29) mmol/L Anion Gap (12-20) BUN (9-16) mg/dL Creatinine (0.5-1.4) mg/dL Estim Creat Clear Calc Estimated GFR Random Glucose (60-115) mg/dL Calcium (8.4-10.2) mg/dL Magnesium (1.6-2.6) mg/dL Total Bilirubin (0.0-1.0) mg/dL Direct Bilirubin (0.0-0.5) mg/dL AST (5-37) U/L ALT (0-40) U/L Alkaline Phosphatase (39-117) U/L Ammonia (13-55) umol/L Troponin I High Sens (<3.5-35.0) ng/L B-Natriuretic Peptide 1013 H (<100) pg/mL Total Protein (6.5-8.0) g/dL Albumin (3.5-5.0) g/dL Lipase (8-78) U/L Salicylates (15-30) mg/dL Acetaminophen (<30) mcg/mL Valproic Acid Ethyl Alcohol mg/dL COVID-19 (LINDEN) Negative (Negative) COVID-19 Clin Com See Note 01/24/22 01/24/22 01/24/22 Range/Units 21:25 21:25 22:13 WBC (4.8-10.8) X10*3/uL RBC (4.60-5.80) X10*6/uL Hgb (14.0-18.0) g/dl Hct (42.0-52.0) % MCV (80.0-98.0) fL MCH (27.0-33.0) pg MCHC (31.0-36.0) g/dl RDW (11.0-16.0) % Plt Count (160-400) X10*3/uL MPV (9.4-12.4) fL Immature Gran % (Auto) (0.0-0.4) % Neut % (Auto) (45-73) % Lymph % (Auto) (20-40) % Kidder % (Auto) (2-11) % Eos % (Auto) (0-4) % Baso % (Auto) (0-2) % Lymph # (Auto) (1.2-4.9) X10*3/uL Kidder # (Auto) (0.1-1.2) X10*3/uL Eos # (Auto) (0.0-0.4) X10*3/uL Baso # (Auto) (0.0-0.2) X10*3/uL Abs Immat Gran (auto) (0.00-0.03) X10*3/uL Absolute Neuts (auto) (2.0-8.3) x10*3/uL Absolute Nucleated RBC (0.0-0.012) X10*3/uL Nucleated RBC % (auto) (0.0-0.2) /100WBC PT (10.0-13.1) SEC INR (0.9-1.1) O2 Saturation 100.0 % ABG pH at Pt Temp 7.40 (7.35-7.45) ABG pCO2 at Pt Temp 59 H (32-45) mmHg ABG pO2 at Pt Temp 145 H (83-108) mmHg ABG HCO3 37 H (22-26) mmol/L ABG Base Excess (Actual) 9.8 mmol/L Sodium (135-145) mmol/L Potassium (3.3-5.1) mmol/L Chloride (96-108) mmol/L Carbon Dioxide (22-29) mmol/L Anion Gap (12-20) BUN (9-16) mg/dL Creatinine (0.5-1.4) mg/dL Estim Creat Clear Calc Estimated GFR Random Glucose (60-115) mg/dL Calcium (8.4-10.2) mg/dL Magnesium (1.6-2.6) mg/dL Total Bilirubin (0.0-1.0) mg/dL Direct Bilirubin (0.0-0.5) mg/dL AST (5-37) U/L ALT (0-40) U/L Alkaline Phosphatase (39-117) U/L Ammonia (13-55) umol/L Troponin I High Sens 8.5 D (<3.5-35.0) ng/L B-Natriuretic Peptide (<100) pg/mL Total Protein (6.5-8.0) g/dL Albumin (3.5-5.0) g/dL Lipase (8-78) U/L Salicylates (15-30) mg/dL Acetaminophen (<30) mcg/mL Valproic Acid Ethyl Alcohol < 10 mg/dL COVID-19 (LINDEN) (Negative) COVID-19 Clin Com ECG Data Attestation: I personally reviewed and interpreted this ECG as follows: ECG interpretation date: 01/24/22 ECG interpretation time: 22:45 Interpretation: Rate: 82 Rhythm: afib Lynn: normal Normal QRS complex. ST T wave : no JANET, nonspecific artifact noted qTC: normal prior studies: no acute ischemia The study has been interpreted contemporaneously by me. . Critical Care Time Critical Care Time Critical Care Time: Yes Total Critical Care Time: 60 Attestation: NIPPV, ETOH withdrawal, review of records, admission I attest to this time spent taking care of the patient Discharge Plan Discharge Clinical Impression: Acute alteration in mental status, Encephalopathy CHF (congestive heart failure) Qualifiers: Heart failure type: unspecified Heart failure chronicity: acute on chronic Qualified Code(s): I50.9 - Heart failure, unspecified Chronic respiratory failure Qualifiers: Respiratory failure complication: hypoxia and hypercapnia Qualified Code(s): J96.11 - Chronic respiratory failure with hypoxia Alcohol withdrawal Qualifiers: Complication of substance-induced condition: uncomplicated Qualified Code(s): F10.930 - Alcohol use, unspecified with withdrawal, uncomplicated Patient Disposition: Admitted As Inpatient
[2022-01-24 21:31] LABS: MANUAL DIFF FLAG NO
[2022-01-24 21:33] LABS: Basophils Absolute Auto 0.1 X10*3/uL (0.0-0.2); Basophils Percent Auto 0.9 % (0-2); Eosinophils Absolute Auto 0.1 X10*3/uL (0.0-0.4); Eosinophils Percent Auto 1.9 % (0-4); Hematocrit 46.9 % (42.0-52.0); Hemoglobin 13.9 g/dl (14.0-18.0); Imm Gran Abs Auto 0.02 X10*3/uL (0.00-0.03); Imm Gran Pct Auto 0.3 % (0.0-0.4); Lymphocytes Absolute Auto 1.5 X10*3/uL (1.2-4.9); Lymphocytes Percent Auto 20.7 % (20-40); Mean Corpuscular HGB Conc 29.6 g/dl (31.0-36.0); Mean Corpuscular Hemoglobin 26.8 pg (27.0-33.0); Mean Corpuscular Volume 90.5 fL (80.0-98.0); Mean Platelet Volume 11.3 fL (9.4-12.4); Monocytes Percent Auto 13.6 % (2-11); Neutrophils Absolute Auto 4.6 x10*3/uL (2.0-8.3); Neutrophils Percent Auto 62.6 % (45-73); Platelet Count 134 X10*3/uL (160-400); Red Blood Count 5.18 X10*6/uL (4.60-5.80); Red Cell Distribution Width 16.9 % (11.0-16.0); White Blood Count 7.4 X10*3/uL (4.8-10.8)
[2022-01-24 21:42] LABS: Ammonia 22 umol/L (13-55)
[2022-01-24 21:46] LABS: INTERNATIONAL NORM RATIO 1.7 (0.9-1.1); Prothrombin Time 20.2 SEC (10.0-13.1)
[2022-01-24 21:47] LABS: Ethanol < 10 mg/dL
[2022-01-24 21:48] LABS: COVID-19 Test Negative (Negative)
[2022-01-24 21:50] LABS: Acetaminophen LAB < 1 mcg/mL (<30); Alanine Aminotransferase 7 U/L (0-40); Albumin Level 3.6 g/dL (3.5-5.0); Alkaline Phosphatase 81 U/L (39-117); Anion Gap 17 (12-20); Aspartate Amino Transferase 15 U/L (5-37); Bilirubin Direct 1.4 mg/dL (0.0-0.5); Blood Urea Nitrogen 25 mg/dL (9-16); Carbon Dioxide 33 mmol/L (22-29); Chloride 94 mmol/L (96-108); Creatinine Clr Calc Pharmacy 76.8; Estimated Glomerular Filt Rate 49; Glucose Random 107 mg/dL (60-115); Lipase 22 U/L (8-78); Magnesium 1.6 mg/dL (1.6-2.6); Potassium 4.6 mmol/L (3.3-5.1); Salicylate < 5.0 mg/dL (15-30); Sodium 139 mmol/L (135-145); Total Protein 7.4 g/dL (6.5-8.0)
[2022-01-24 21:51] LABS: B Type Natriuretic Peptide 1013 pg/mL (<100)
[2022-01-24 21:52] LABS: Troponin-I High Sensitivity 8.5 ng/L (<3.5-35.0)
[2022-01-24 22:04] VITALS: BP 150/103; PULSE 90; RESP 14; O2SAT 100
[2022-01-24] MEDS: Furosemide 40 MG/4 ML VIAL IVPUSH (22:05)
[2022-01-24 22:20] LABS: ABG Base Excess 9.8 mmol/L; ABG HCO3 37 mmol/L (22-26); ABG pCO2 59 mmHg (32-45); ABG pO2 145 mmHg (83-108)
[2022-01-24 22:21] LABS: ABG Refer to POC result
--- NOTE | 2022-01-24 22:21 | PC.NURSE ---
Critical labs reported to Dr. Mcadams and DMITRIY Craven
[2022-01-24 22:26] VITALS: PULSE 89; RESP 17; O2SAT 97
[2022-01-24 23:23] LABS: Valproate 15.8 mcg/mL (50.0-100.0)
[2022-01-24] MEDS: PHENobarbitaL sodium 130 MG/ML IM ONCE 256 MG IM (23:29)
[2022-01-24] MEDS: Lactated Ringers 1,000 ML 100 ML IVCONT (23:31)
[2022-01-25] VITALS (10 sets, daily range): BP systolic 122–167; BP diastolic 74–99; PULSE 76–111; RESP 12–18; TEMP 36.7–36.8; O2SAT 92–98
[2022-01-25 01:05] LABS: Appearance Urine CLEAR; Color Urine YELLOW; Glucose Urine UA NEG (NEG); Leukocyte Esterase Urine NEG (NEG); Nitrite Urine NEG (NEG); UACC Culture Trigger NO; Urine Blood 1+ (NEG); Urine Ketones NEG (NEG); Urine Protein NEG (NEG-TRACE)
[2022-01-25 01:08] LABS: Amphetamine Screen Urine Not Detected (Not Detect); Bacteria Urine 1+ /LPF; Barbiturates, Urine Not Detected (Not Detect); Benzodiazepines Screen Urine Not Detected (Not Detect); Cannabinoid Screen Urine Not Detected (Not Detect); Cocaine Screen Urine Not Detected (Not Detect); Fentanyl, urine Not Detected (Not Detect); Mucus Urine 1+ /LPF; Opiate Screen Urine Not Detected (Not Detect); Phencyclidine Screen Urine Not Detected (Not Detect); Squamous Epithelial Cell Urine 1+ /LPF
[2022-01-25 01:09] LABS: Hyaline Casts Urine 0-2 /LPF
--- NOTE | 2022-01-25 01:10 | PC.NURSE ---
Pt was incontinent with urine, myself and PCT AJ changed bedding and cleaned up PT. Put a [place] cath on pt. Will continue to monitor.
[2022-01-25] MEDS: PHENobarbitaL sodium 130 MG/ML VIAL IM Q3Hx2 191 MG IM ×2 (02:55→06:18)
--- NOTE | 2022-01-25 07:08 | PM.IMHP ---
History of Present Illness Date of Service: 01/24/22 Chief Complaint: Drinking excessively This is a 61-year-old male with past medical history of CHF, alcohol abuse, morbid obesity, AFib on Eliquis, was se, chronic back pain, diabetes, obesity hypoventilation syndrome, chronic respiratory failure presents to the hospital after family called EMS due to patient drinking excessively for the past few days, not eating and not taking care of himself. On arrival of EMS patient was found to be hypoxic in the mid 80s, he is currently on BiPAP, lethargic, not answering questions. Unclear patient experiences seizure at home as he is postictal and encephalopathic. On arrival to the ED patient hemodynamically stable with no significant abnormal vitals Labs are significant for WBC count of 7.4, hemoglobin of 13.9, hematocrit 46.9, PT of 20.2, INR of 1.7, pH of 7.4, CO2 of 59, creatinine of 1.47 with a baseline of 0.9, BNP of 1013 UA negative for acute infection, UDS negative, level negative Chest x-ray shows no acute pulmonary process, head CT negative Patient placed on CPAP/with backup rate of BiPAP due to his history of MJ, as well as OHS Review of Systems Review of Systems: Yes all other systems are reviewed and are negative [facility] Medical History Afib Alcohol dependency Anxiety Arthritis CHF (congestive heart failure) Cirrhosis CKD (chronic kidney disease) stage 3, GFR 30-59 ml/min Depression Diabetes Diastolic CHF, acute on chronic Fever of unknown origin Gout HTN (hypertension) Left atrial enlargement Morbid obesity Obesity (BMI 35.0-39.9 without comorbidity) Obstructive sleep apnea (adult) (pediatric) Seroma due to trauma Sleep apnea Wernicke encephalopathy Family History Father Lung cancer Mother No problems noted. Maternal Aunt History of heart attack Sister No problems noted. Brother Cancer of kidney Brother No problems noted. Brother No problems noted. Brother No problems noted. Brother No problems noted. Brother No problems noted. Other Substance use disorder Surgical History No pertinent past surgical history Social History Household Members: Spouse Housing: House Do you presently have visiting nurse or other home services: No Alcohol intake: current Alcohol intake frequency: 3 or more drinks per day Alcohol type: hard liquor Patient Tobacco Use Status: Never used Tobacco Tobacco use type: Cigarette Cigarette Packs Per Day: 1 Cigarettes Per Day: 20.0 e-Cigarette/Vaping Use: Never Used Second Hand Smoke Exposure: Yes Advance Directives: No Advance Directives Information Provided: No service: Yes Current occupational status: unemployed Meds Allergies Allergy/AdvReac Type Severity Reaction Status Date / Time No Known Allergies Allergy Verified 10/14/21 15:13 [No Known Allergies*] Active Medications: Current Medications Acetaminophen (Acetaminophen 325 Mg Tablet) 650 mg PO Q6H PRN PRN Reason: Pain, Mild (Pain Scale 1-3) Docusate Sodium (Docusate Sodium 100 Mg Capsule) 100 mg PO DAILY PRN PRN Reason: Constipation Folic Acid (Folic Acid 1 Mg Tablet) 1 mg PO DAILY [facility] Lactated Ringer's (Lr) 1,000 mls @ 100 mls/hr IVCONT .Q10H [facility] Last Admin: 01/24/22 23:31 Dose: 100 mls/hr Ondansetron HCl (Ondansetron Hcl 4 Mg/2 Ml Vial) 4 mg IVPUSH Q8H PRN PRN Reason: Nausea and Vomiting Pharmacy Consult (Consult Rx Etoh Phenob Im/Po) 1 each MISCELLANE ONCE PRN; Protocol PRN Reason: Consult order Pharmacy Consult (Consult Rx Perform Med Rec) 1 each MISCELLANE ONCE PRN PRN Reason: Consult order Phenobarbital (Phenobarbital 30 Mg Tablet) 60 mg PO BID [facility] Stop: 01/26/22 21:01 Phenobarbital (Phenobarbital 30 Mg Tablet) 30 mg PO BID [facility] Stop: 01/28/22 21:01 Phenobarbital (Phenobarbital 15 Mg Tablet) 15 mg PO DAILY [facility] Stop: 01/30/22 09:01 Sodium Chloride (0.9 % Sodium Chloride Flush 3 Ml Syringe) 3 ml IVFLUSH QSHIFT [facility] Last Admin: 01/25/22 00:26 Dose: Not Given Thiamine HCl (Thiamine Hcl 100 Mg Tablet) 100 mg PO DAILY [facility] Home Medications Medication Instructions Recorded Confirmed Last Taken Type albuterol sulfate 90 mcg/actuation 2 puff inhalation QID 10/14/21 Unknown History aerosol inhaler Physical Exam Vital Signs and Narrative: Vital Signs: Last Vital Signs Temp 98.4 F 01/24/22 21:01 Pulse 76 01/25/22 04:00 Resp 14 01/25/22 04:00 BP 142/75 H 01/25/22 04:00 Pulse Ox 97 01/25/22 04:00 O2 Del Method 01/25/22 04:00 O2 Flow Rate 15 01/24/22 22:04 BMI result Body Mass Index 39.0 Const: Other: On BiPAP/CPAP, lethargic, not oriented General: cooperative and no acute distress Eyes: General: appearance normal, both eyes and all related structures Resp: Other: Difficult to examine , patient on BiPAP/CPAP Effort & Inspection: normal respiratory effort Cardio: Rate: regular rate Rhythm: regular rhythm GI: Palpation (GI): Soft to palpation Auscultation: normal bowel sounds Skin: General skin exam: no rashes or lesions noted Neuro: Other: Unable to assess as patient is lethargic Extrem: General: Yes normal to inspection and Yes no pedal edema Results Labs CBC and Chem 7: 01/24/22 21:25 01/24/22 21:25 Labs: Laboratory Results - last 24 hr 01/24/22 01/24/22 01/24/22 21:25 21:25 21:25 MCV 90.5 MCH 26.8 L MCHC 29.6 L RDW 16.9 H Plt Count 134 L D MPV 11.3 Immature Gran % (Auto) 0.3 Neut % (Auto) 62.6 Lymph % (Auto) 20.7 [place] % (Auto) 13.6 H Eos % (Auto) 1.9 Baso % (Auto) 0.9 Lymph # (Auto) 1.5 [place] # (Auto) 1.0 Eos # (Auto) 0.1 Baso # (Auto) 0.1 Abs Immat Gran (auto) 0.02 Absolute Neuts (auto) 4.6 Absolute Nucleated RBC 0.000 Nucleated RBC % (auto) 0.0 PT INR O2 Saturation ABG pH at Pt Temp ABG pCO2 at Pt Temp ABG pO2 at Pt Temp ABG HCO3 ABG Base Excess (Actual) Anion Gap 17 Estim Creat Clear Calc 76.8 Estimated GFR 49 Random Glucose 107 Calcium 9.0 D Magnesium 1.6 Total Bilirubin 2.0 H Direct Bilirubin 1.4 H AST 15 D ALT 7 Alkaline Phosphatase 81 D Ammonia 22 B-Natriuretic Peptide Total Protein 7.4 Albumin 3.6 Lipase 22 Urine Color Urine Appearance Urine pH Ur Specific [place] Urine Protein Urine Glucose (UA) Urine Ketones Urine Blood Urine Nitrite Ur Leukocyte Esterase Urine RBC Urine WBC Ur Squamous Epith Cells Urine Bacteria Hyaline Casts Urine Mucus Salicylates < 5.0 L Urine Opiates Screen Urine Fentanyl Screen Acetaminophen < 1 Ur Barbiturates Screen Valproic Acid Cancelled Ur Phencyclidine Scrn Ur Amphetamines Screen U Benzodiazepines Scrn Urine Cocaine Screen U Marijuana (THC) Screen Ethyl Alcohol COVID-19 (LINDEN) COVID-[employer] 01/24/22 01/24/22 01/24/22 21:25 21:25 21:25 MCV MCH MCHC RDW Plt Count MPV Immature Gran % (Auto) Neut % (Auto) Lymph % (Auto) [place] % (Auto) Eos % (Auto) Baso % (Auto) Lymph # (Auto) [place] # (Auto) Eos # (Auto) Baso # (Auto) Abs Immat Gran (auto) Absolute Neuts (auto) Absolute Nucleated RBC Nucleated RBC % (auto) PT 20.2 H INR 1.7 H O2 Saturation ABG pH at Pt Temp ABG pCO2 at Pt Temp ABG pO2 at Pt Temp ABG HCO3 ABG Base Excess (Actual) Anion Gap Estim Creat Clear Calc Estimated GFR Random Glucose Calcium Magnesium Total Bilirubin Direct Bilirubin AST ALT Alkaline Phosphatase Ammonia B-Natriuretic Peptide 1013 H Total Protein Albumin Lipase Urine Color Urine Appearance Urine pH Ur Specific [place] Urine Protein Urine Glucose (UA) Urine Ketones Urine Blood Urine Nitrite Ur Leukocyte Esterase Urine RBC Urine WBC Ur Squamous Epith Cells Urine Bacteria Hyaline Casts Urine Mucus Salicylates Urine Opiates Screen Urine Fentanyl Screen Acetaminophen Ur Barbiturates Screen Valproic Acid Ur Phencyclidine Scrn Ur Amphetamines Screen U Benzodiazepines Scrn Urine Cocaine Screen U Marijuana (THC) Screen Ethyl Alcohol COVID-19 (LINDEN) Negative [email or web address] Com See Note 01/24/22 01/24/22 01/24/22 21:25 22:13 22:45 MCV MCH MCHC RDW Plt Count MPV Immature Gran % (Auto) Neut % (Auto) Lymph % (Auto) [place] % (Auto) Eos % (Auto) Baso % (Auto) Lymph # (Auto) [place] # (Auto) Eos # (Auto) Baso # (Auto) Abs Immat Gran (auto) Absolute Neuts (auto) Absolute Nucleated RBC Nucleated RBC % (auto) PT INR O2 Saturation 100.0 ABG pH at Pt Temp 7.40 ABG pCO2 at Pt Temp 59 H ABG pO2 at Pt Temp 145 H ABG HCO3 37 H ABG Base Excess (Actual) 9.8 Anion Gap Estim Creat Clear Calc Estimated GFR Random Glucose Calcium Magnesium Total Bilirubin Direct Bilirubin AST ALT Alkaline Phosphatase Ammonia B-Natriuretic Peptide Total Protein Albumin Lipase Urine Color Urine Appearance Urine pH Ur Specific [place] Urine Protein Urine Glucose (UA) Urine Ketones Urine Blood Urine Nitrite Ur Leukocyte Esterase Urine RBC Urine WBC Ur Squamous Epith Cells Urine Bacteria Hyaline Casts Urine Mucus Salicylates Urine Opiates Screen Urine Fentanyl Screen Acetaminophen Ur Barbiturates Screen Valproic Acid 15.8 L Ur Phencyclidine Scrn Ur Amphetamines Screen U Benzodiazepines Scrn Urine Cocaine Screen U Marijuana (THC) Screen Ethyl Alcohol < 10 COVID-19 (LINDEN) COVID-19 Clin Com 01/24/22 01/24/22 22:53 22:53 MCV MCH MCHC RDW Plt Count MPV Immature Gran % (Auto) Neut % (Auto) Lymph % (Auto) [place] % (Auto) Eos % (Auto) Baso % (Auto) Lymph # (Auto) [place] # (Auto) Eos # (Auto) Baso # (Auto) Abs Immat Gran (auto) Absolute Neuts (auto) Absolute Nucleated RBC Nucleated RBC % (auto) PT INR O2 Saturation ABG pH at Pt Temp ABG pCO2 at Pt Temp ABG pO2 at Pt Temp ABG HCO3 ABG Base Excess (Actual) Anion Gap Estim Creat Clear Calc Estimated GFR Random Glucose Calcium Magnesium Total Bilirubin Direct Bilirubin AST ALT Alkaline Phosphatase Ammonia B-Natriuretic Peptide Total Protein Albumin Lipase Urine Color YELLOW Urine Appearance CLEAR Urine pH 6.0 Ur Specific [place] 1.020 Urine Protein NEG Urine Glucose (UA) NEG Urine Ketones NEG Urine Blood 1+ H Urine Nitrite NEG Ur Leukocyte Esterase NEG Urine RBC 1-4 Urine WBC 1-4 Ur Squamous Epith Cells 1+ Urine Bacteria 1+ Hyaline Casts 0-2 Urine Mucus 1+ Salicylates Urine Opiates Screen Not Detected Urine Fentanyl Screen Not Detected Acetaminophen Ur Barbiturates Screen Not Detected Valproic Acid Ur Phencyclidine Scrn Not Detected Ur Amphetamines Screen Not Detected U Benzodiazepines Scrn Not Detected Urine Cocaine Screen Not Detected U Marijuana (THC) Screen Not Detected Ethyl Alcohol COVID-19 (LINDEN) COVID-19 Clin Com Imaging Radiologist's Impressions: Impressions Head CT 01/24/22 21:41 IMPRESSION: 1. No acute intracranial pathology. Chest X-Ray 01/24/22 21:42 IMPRESSION: No acute pulmonary process. Assessment and Plan (1) Acute CHF: Status: Acute (2) Acute alteration in mental status: Status: Acute (3) Alcohol withdrawal: Qualifiers: Complication of substance-induced condition: uncomplicated Qualified Code(s): F10.930 - Alcohol use, unspecified with withdrawal, uncomplicated Status: Acute (4) Morbid obesity: Status: Acute (5) MJ (obstructive sleep apnea): Status: Acute Plan This is a 61-year-old male with past medical history of alcohol abuse among others who presents to the hospital with lethargy and confusion, patient's family report that he has been drinking excessively every day and doing/eating very little # acute CHF - found to have significantly elevated BNP - no documented history of CHF - will give Lasix - clinically difficult to assess 1 status - consult Cardiology for further recommendation in regards to his volume status - echocardiogram # encephalopathy - patient is oriented to self, not place, very lethargic - ABG shows a pH of 7.4 therefore less likely to be CO2 narcolepsy - likely secondary to alcohol withdrawal - start on phenobarb - monitor mental status - head CT negative # alcohol withdrawal - has elevated CIWA - started on phenobarb - monitor symptoms - thiamine folic acid supplement # MJ, ohs, morbid obesity - CPAP at bedtime with a backup BiPAP rate - monitor respiratory status # history of AFib - continue apixaban - continue metoprolol DVT prophylaxis:: Apixaban Given patient's acute CHF, cephalopathy patient will require minimum 2 night hospital stay for further management and evaluation Quality Stroke Does the patient have a stroke diagnosis?: No VTE Prior VTE?: No VTE Risk Level:: Medical - moderate - high VTE Device Contraindication: Treatment Not Indicated VTE Drug Contraindication: N/A - Med Ordered
[2022-01-25 07:29] LABS: Glucose, Whole Blood 78 mg/dL (60-115)
[2022-01-25] MEDS: Folic Acid 1 MG TABLET PO (08:08)
[2022-01-25] MEDS: PHENobarbitaL 30 MG TABLET 60 MG PO ×2 (08:08→19:41)
[2022-01-25] MEDS: Furosemide 40 MG/4 ML VIAL IVPUSH ×2 (08:09→18:39)
[2022-01-25] MEDS: Thiamine HCL 100 MG TABLET PO (08:09)
--- NOTE | 2022-01-25 08:16 | PHA.MEDREC ---
Pharmacy Consult ? Medication Reconciliation Pharmacy has completed the medication reconciliation.
--- NOTE | 2022-01-25 08:24 | PC.NURSE ---
pt repositioned in bed, SaO2 on 4L NC, 97%. alert to person and place.
--- NOTE | 2022-01-25 08:31 | PC.NURSE ---
TC to dr. Jama, request for order for tele monitoring given pts hx and ETOH abuse with phenobarb taper. Also questioned order of 40mg BID lasix with LR running at 100mnl/hr.
[2022-01-25 08:36] LABS: MANUAL DIFF FLAG NO
[2022-01-25 08:45] LABS: Basophils Absolute Auto 0.1 X10*3/uL (0.0-0.2); Eosinophils Absolute Auto 0.2 X10*3/uL (0.0-0.4); Eosinophils Percent Auto 2.5 % (0-4); Hematocrit 44.5 % (42.0-52.0); Hemoglobin 13.3 g/dl (14.0-18.0); Imm Gran Abs Auto 0.04 X10*3/uL (0.00-0.03); Imm Gran Pct Auto 0.5 % (0.0-0.4); Lymphocytes Absolute Auto 1.5 X10*3/uL (1.2-4.9); Lymphocytes Percent Auto 18.2 % (20-40); Mean Corpuscular HGB Conc 29.9 g/dl (31.0-36.0); Mean Corpuscular Hemoglobin 26.8 pg (27.0-33.0); Mean Corpuscular Volume 89.7 fL (80.0-98.0); Monocytes Percent Auto 11.8 % (2-11); Neutrophils Absolute Auto 5.3 x10*3/uL (2.0-8.3); Platelet Count 123 X10*3/uL (160-400); Red Blood Count 4.96 X10*6/uL (4.60-5.80); Red Cell Distribution Width 16.7 % (11.0-16.0)
[2022-01-25 09:08] LABS: Anion Gap 14 (12-20); Blood Urea Nitrogen 23 mg/dL (9-16); Calcium 8.7 mg/dL (8.4-10.2); Carbon Dioxide 38 mmol/L (22-29); Chloride 93 mmol/L (96-108); Creatinine Clr Calc Pharmacy 81.8; Estimated Glomerular Filt Rate 53; Glucose Random 99 mg/dL (60-115); Potassium 3.8 mmol/L (3.3-5.1); Sodium 141 mmol/L (135-145)
[2022-01-25] MEDS: Metoprolol Tartrate 25 MG TABLET PO ×2 (09:32→19:41)
[2022-01-25] MEDS: FLUoxetine HCl 20 MG CAPSULE 40 MG PO (09:33)
[2022-01-25] MEDS: Divalproex Sodium 250 MG TABLET.DR PO ×2 (09:33→19:39)
[2022-01-25] MEDS: Apixaban 5 MG TABLET PO ×2 (09:33→19:40)
[2022-01-25] MEDS: allopurinoL 100 MG TABLET PO (09:33)
[2022-01-25] MEDS: amLODIPine Besylate 5 MG TABLET PO (09:34)
--- NOTE | 2022-01-25 10:57 | MHC.CM.PN ---
Attempted to meet with patient in regards to discharge planning. Patient currently sleeping. No family present. Will attempt to meet again. Continue to monitor for d/c needs.
--- NOTE | 2022-01-25 11:07 | P.CONCA_ITS ---
History of Present Illness History of Present Illness Date of Service: 01/25/22 Requesting physician: Claudia Hinton Consult reason: other (Elevated BNP) Chief complaint: Alcohol withdrawal Narrative: I was consulted to see Esteban in cardiology consultation today due to suspected CHF. History obtained from the chart as patient is confused and does not provide any accurate history. Patient was brought to the emergency room yesterday by EMS after family called EMS as patient was not taking care of himself and was drinking excessively for the past few days and was obtunded. Patient was noted to be significantly hypoxemic on presentation the 80s requiring BiPAP therapy. Patient is arousable but still very drowsy. He has been trialed on treatment for alcohol withdrawal. He was noted to have elevated BNP in 1013 range. Patient is not able to provide me much further history. He was admitted for possible congestive heart failure as well as alcohol withdrawal and encephalopathy and cardiology consult requested because of the elevated BNP. Review of Systems Review of Systems: Yes Unobtainable due to mental status Neurologic: Reports confusion Psychiatric: Psychiatric: Reports confusion PMFSH Past Medical History Medical History Afib Alcohol dependency Anxiety Arthritis CHF (congestive heart failure) Cirrhosis CKD (chronic kidney disease) stage 3, GFR 30-59 ml/min Depression Diabetes Diastolic CHF, acute on chronic Fever of unknown origin Gout HTN (hypertension) Left atrial enlargement Morbid obesity Obesity (BMI 35.0-39.9 without comorbidity) Obstructive sleep apnea (adult) (pediatric) Seroma due to trauma Sleep apnea Wernicke encephalopathy Family History Family History Father Lung cancer Mother No problems noted. Maternal Aunt History of heart attack Sister No problems noted. Brother Cancer of kidney Brother No problems noted. Brother No problems noted. Brother No problems noted. Brother No problems noted. Brother No problems noted. Other Substance use disorder Surgical History Surgical History No pertinent past surgical history Social History Social History Household Members: Spouse Housing: House Do you presently have visiting nurse or other home services: No Alcohol intake: current Alcohol intake frequency: 3 or more drinks per day Alcohol type: hard liquor Patient Tobacco Use Status: Never used Tobacco Tobacco use type: Cigarette Cigarette Packs Per Day: 1 Cigarettes Per Day: 20.0 e-Cigarette/Vaping Use: Never Used Second Hand Smoke Exposure: Yes Advance Directives: No Advance Directives Information Provided: No service: Yes Current occupational status: unemployed Meds Allergies Allergy/AdvReac Type Severity Reaction Status Date / Time No Known Allergies Allergy Verified 10/14/21 15:13 [No Known Allergies*] Active Medications: Current Medications Acetaminophen (Acetaminophen 325 Mg Tablet) 650 mg PO Q6H PRN PRN Reason: Pain, Mild (Pain Scale 1-3) Allopurinol (Allopurinol 100 Mg Tablet) 100 mg PO DAILY [facility] Last Admin: 01/25/22 09:33 Dose: 100 mg Amlodipine Besylate (Amlodipine Besylate 5 Mg Tablet) 5 mg PO DAILY [facility]; Protocol Last Admin: 01/25/22 09:34 Dose: 5 mg Apixaban (Apixaban 5 Mg Tablet) 5 mg PO BID [facility] Last Admin: 01/25/22 09:33 Dose: 5 mg Cyclobenzaprine HCl (Cyclobenzaprine Hcl 10 Mg Tablet) 10 mg PO BEDTIME PRN PRN Reason: muscle spasm Divalproex Sodium (Divalproex Sodium 250 Mg Tablet.Dr) 250 mg PO BID [facility] Last Admin: 01/25/22 09:33 Dose: 250 mg Docusate Sodium (Docusate Sodium 100 Mg Capsule) 100 mg PO DAILY PRN PRN Reason: Constipation Fluoxetine HCl (Fluoxetine Hcl 20 Mg Capsule) 40 mg PO DAILY [facility] Last Admin: 01/25/22 09:33 Dose: 40 mg Folic Acid (Folic Acid 1 Mg Tablet) 1 mg PO DAILY [facility] Last Admin: 01/25/22 08:08 Dose: 1 mg Furosemide (Furosemide 40 Mg/4 Ml Vial) 40 mg IVPUSH BID@0900,1800 [facility]; Protocol Stop: 01/25/22 20:00 Last Admin: 01/25/22 08:09 Dose: 40 mg Furosemide (Furosemide 20 Mg Tablet) 30 mg PO DAILY [facility]; Protocol Lorazepam (Lorazepam 0.5 Mg Tablet) 0.5 mg PO BID PRN PRN Reason: anxiety Metoprolol Tartrate (Metoprolol Tartrate 25 Mg Tablet) 25 mg PO BID [facility]; Protocol Last Admin: 01/25/22 09:32 Dose: 25 mg Naproxen (Naproxen 500 Mg Tablet) 500 mg PO BID PRN PRN Reason: for pain Omeprazole (Omeprazole 40 Mg Capsule.Dr) 40 mg PO DAILY@0630 [facility] Ondansetron HCl (Ondansetron Hcl 4 Mg/2 Ml Vial) 4 mg IVPUSH Q8H PRN PRN Reason: Nausea and Vomiting Pharmacy Consult (Consult Rx Etoh Phenob Im/Po) 1 each MISCELLANE ONCE PRN; Protocol PRN Reason: Consult order Pharmacy Consult (Consult Rx Perform Med Rec) 1 each MISCELLANE ONCE PRN PRN Reason: Consult order Phenobarbital (Phenobarbital 30 Mg Tablet) 60 mg PO BID [facility] Stop: 01/26/22 21:01 Last Admin: 01/25/22 08:08 Dose: 60 mg Phenobarbital (Phenobarbital 30 Mg Tablet) 30 mg PO BID [facility] Stop: 01/28/22 21:01 Phenobarbital (Phenobarbital 15 Mg Tablet) 15 mg PO DAILY [facility] Stop: 01/30/22 09:01 Sodium Chloride (0.9 % Sodium Chloride Flush 3 Ml Syringe) 3 ml IVFLUSH QSHIFT [facility] Last Admin: 01/25/22 08:07 Dose: Not Given Thiamine HCl (Thiamine Hcl 100 Mg Tablet) 100 mg PO DAILY [facility] Last Admin: 01/25/22 08:09 Dose: 100 mg Home Medications Medication Instructions Recorded Confirmed Last Taken Type albuterol sulfate 90 mcg/actuation 2 puff inhalation QID 10/14/21 01/25/22 Unknown History aerosol inhaler Physical Exam Vital Signs: Vital Signs: Last Vital Signs Temp 98.4 F 01/24/22 21:01 Pulse 111 H 01/25/22 09:38 Resp 12 01/25/22 09:38 BP 122/85 01/25/22 09:38 Pulse Ox 97 01/25/22 09:38 O2 Del Method 01/25/22 09:38 O2 Flow Rate 4 01/25/22 09:38 BMI result Body Mass Index 39.0 Const: General: no acute distress, confusion, lethargic and other (Arousable) Nutritional Appearance: obese Orientation/consciousness: confusion and lethargic HEENT: Head: Yes normocephalic and Yes atraumatic Neck: Neck: Yes trachea midline, Yes supple and Yes no JVD (Difficult to evalu ate due to body habitus) Resp: Effort & Inspection: decreased respiratory effort Auscultation: clear to auscultation bilaterally Cardio: Jugular venous distension: no JVD Rhythm: abnormal rhythm irregularly irregular Heart sounds: S1 normal heart sound present, S2 normal heart sound present, no click, no gallops and no murmurs Skin: General skin exam: no rashes or lesions noted Neuro: General: moves all extremities and confusion Extrem: General: Yes no clubbing, cyanosis or edema Objective Labs and Meds Result diagrams: 01/25/22 08:26 01/25/22 08:26 Lab results: Laboratory Results - last 24 hr 01/24/22 01/24/22 01/24/22 21:25 21:25 21:25 WBC 7.4 RBC 5.18 Hgb 13.9 L Hct 46.9 MCV 90.5 MCH 26.8 L MCHC 29.6 L RDW 16.9 H Plt Count 134 L D MPV 11.3 Immature Gran % (Auto) 0.3 Neut % (Auto) 62.6 Lymph % (Auto) 20.7 [place] % (Auto) 13.6 H Eos % (Auto) 1.9 Baso % (Auto) 0.9 Lymph # (Auto) 1.5 [place] # (Auto) 1.0 Eos # (Auto) 0.1 Baso # (Auto) 0.1 Abs Immat Gran (auto) 0.02 Absolute Neuts (auto) 4.6 Absolute Nucleated RBC 0.000 Nucleated RBC % (auto) 0.0 PT INR O2 Saturation ABG pH at Pt Temp ABG pCO2 at Pt Temp ABG pO2 at Pt Temp ABG HCO3 ABG Base Excess (Actual) Sodium 139 Potassium 4.6 Chloride 94 L Carbon Dioxide 33 H Anion Gap 17 BUN 25 H Creatinine 1.47 H Estim Creat Clear Calc 76.8 Estimated GFR 49 POC Glucose Random Glucose 107 Calcium 9.0 D Magnesium 1.6 Total Bilirubin 2.0 H Direct Bilirubin 1.4 H AST 15 D ALT 7 Alkaline Phosphatase 81 D Ammonia 22 Troponin I High Sens B-Natriuretic Peptide Total Protein 7.4 Albumin 3.6 Lipase 22 Urine Color Urine Appearance Urine pH Ur Specific Fowler Urine Protein Urine Glucose (UA) Urine Ketones Urine Blood Urine Nitrite Ur Leukocyte Esterase Urine RBC Urine WBC Ur Squamous Epith Cells Urine Bacteria Hyaline Casts Urine Mucus Salicylates < 5.0 L Urine Opiates Screen Urine Fentanyl Screen Acetaminophen < 1 Ur Barbiturates Screen Valproic Acid Cancelled Ur Phencyclidine Scrn Ur Amphetamines Screen U Benzodiazepines Scrn Urine Cocaine Screen U Marijuana (THC) Screen Ethyl Alcohol COVID-19 ([facility]) COVID-19 Clin Com 01/24/22 01/24/22 01/24/22 21:25 21:25 21:25 WBC RBC Hgb Hct MCV MCH MCHC RDW Plt Count MPV Immature Gran % (Auto) Neut % (Auto) Lymph % (Auto) [place] % (Auto) Eos % (Auto) Baso % (Auto) Lymph # (Auto) [place] # (Auto) Eos # (Auto) Baso # (Auto) Abs Immat Gran (auto) Absolute Neuts (auto) Absolute Nucleated RBC Nucleated RBC % (auto) PT 20.2 H INR 1.7 H O2 Saturation ABG pH at Pt Temp ABG pCO2 at Pt Temp ABG pO2 at Pt Temp ABG HCO3 ABG Base Excess (Actual) Sodium Potassium Chloride Carbon Dioxide Anion Gap BUN Creatinine Estim Creat Clear Calc Estimated GFR POC Glucose Random Glucose Calcium Magnesium Total Bilirubin Direct Bilirubin AST ALT Alkaline Phosphatase Ammonia Troponin I High Sens B-Natriuretic Peptide 1013 H Total Protein Albumin Lipase Urine Color Urine Appearance Urine pH Ur Specific [place] Urine Protein Urine Glucose (UA) Urine Ketones Urine Blood Urine Nitrite Ur Leukocyte Esterase Urine RBC Urine WBC Ur Squamous Epith Cells Urine Bacteria Hyaline Casts Urine Mucus Salicylates Urine Opiates Screen Urine Fentanyl Screen Acetaminophen Ur Barbiturates Screen Valproic Acid Ur Phencyclidine Scrn Ur Amphetamines Screen U Benzodiazepines Scrn Urine Cocaine Screen U Marijuana (THC) Screen Ethyl Alcohol COVID-19 ([facility]INDEN) Negative COVID-19 Clin Com See Note 01/24/22 01/24/22 01/24/22 21:25 21:25 22:13 WBC RBC Hgb Hct MCV MCH MCHC RDW Plt Count MPV Immature Gran % (Auto) Neut % (Auto) Lymph % (Auto) [place] % (Auto) Eos % (Auto) Baso % (Auto) Lymph # (Auto) [place] # (Auto) Eos # (Auto) Baso # (Auto) Abs Immat Gran (auto) Absolute Neuts (auto) Absolute Nucleated RBC Nucleated RBC % (auto) PT INR O2 Saturation 100.0 ABG pH at Pt Temp 7.40 ABG pCO2 at Pt Temp 59 H ABG pO2 at Pt Temp 145 H ABG HCO3 37 H ABG Base Excess (Actual) 9.8 Sodium Potassium Chloride Carbon Dioxide Anion Gap BUN Creatinine Estim Creat Clear Calc Estimated GFR POC Glucose Random Glucose Calcium Magnesium Total Bilirubin Direct Bilirubin AST ALT Alkaline Phosphatase Ammonia Troponin I High Sens 8.5 D B-Natriuretic Peptide Total Protein Albumin Lipase Urine Color Urine Appearance Urine pH Ur Specific Fowler Urine Protein Urine Glucose (UA) Urine Ketones Urine Blood Urine Nitrite Ur Leukocyte Esterase Urine RBC Urine WBC Ur Squamous Epith Cells Urine Bacteria Hyaline Casts Urine Mucus Salicylates Urine Opiates Screen Urine Fentanyl Screen Acetaminophen Ur Barbiturates Screen Valproic Acid Ur Phencyclidine Scrn Ur Amphetamines Screen U Benzodiazepines Scrn Urine Cocaine Screen U Marijuana (THC) Screen Ethyl Alcohol < 10 COVID-19 ([facility]INDEN) COVID-19 Clin Com 01/24/22 01/24/22 01/24/22 22:45 22:53 22:53 WBC RBC Hgb Hct MCV MCH MCHC RDW Plt Count MPV Immature Gran % (Auto) Neut % (Auto) Lymph % (Auto) [place] % (Auto) Eos % (Auto) Baso % (Auto) Lymph # (Auto) [place] # (Auto) Eos # (Auto) Baso # (Auto) Abs Immat Gran (auto) Absolute Neuts (auto) Absolute Nucleated RBC Nucleated RBC % (auto) PT INR O2 Saturation ABG pH at Pt Temp ABG pCO2 at Pt Temp ABG pO2 at Pt Temp ABG HCO3 ABG Base Excess (Actual) Sodium Potassium Chloride Carbon Dioxide Anion Gap BUN Creatinine Estim Creat Clear Calc Estimated GFR POC Glucose Random Glucose Calcium Magnesium Total Bilirubin Direct Bilirubin AST ALT Alkaline Phosphatase Ammonia Troponin I High Sens B-Natriuretic Peptide Total Protein Albumin Lipase Urine Color YELLOW Urine Appearance CLEAR Urine pH 6.0 Ur Specific Fowler 1.020 Urine Protein NEG Urine Glucose (UA) NEG Urine Ketones NEG Urine Blood 1+ H Urine Nitrite NEG Ur Leukocyte Esterase NEG Urine RBC 1-4 Urine WBC 1-4 Ur Squamous Epith Cells 1+ Urine Bacteria 1+ Hyaline Casts 0-2 Urine Mucus 1+ Salicylates Urine Opiates Screen Not Detected Urine Fentanyl Screen Not Detected Acetaminophen Ur Barbiturates Screen Not Detected Valproic Acid 15.8 L Ur Phencyclidine Scrn Not Detected Ur Amphetamines Screen Not Detected U Benzodiazepines Scrn Not Detected Urine Cocaine Screen Not Detected U Marijuana (THC) Screen Not Detected Ethyl Alcohol COVID-19 ([facility]INDEN) COVID-19 Clin Com 01/25/22 01/25/22 01/25/22 07:25 08:26 08:26 WBC 8.0 RBC 4.96 Hgb 13.3 L Hct 44.5 MCV 89.7 MCH 26.8 L MCHC 29.9 L RDW 16.7 H Plt Count 123 L MPV 11.0 Immature Gran % (Auto) 0.5 H Neut % (Auto) 66.0 Lymph % (Auto) 18.2 L [place] % (Auto) 11.8 H Eos % (Auto) 2.5 Baso % (Auto) 1.0 Lymph # (Auto) 1.5 [place] # (Auto) 1.0 Eos # (Auto) 0.2 Baso # (Auto) 0.1 Abs Immat Gran (auto) 0.04 H Absolute Neuts (auto) 5.3 Absolute Nucleated RBC 0.000 Nucleated RBC % (auto) 0.0 PT INR O2 Saturation ABG pH at Pt Temp ABG pCO2 at Pt Temp ABG pO2 at Pt Temp ABG HCO3 ABG Base Excess (Actual) Sodium 141 Potassium 3.8 Chloride 93 L Carbon Dioxide 38 H Anion Gap 14 BUN 23 H Creatinine 1.38 Estim Creat Clear Calc 81.8 Estimated GFR 53 POC Glucose 78 Random Glucose 99 Calcium 8.7 Magnesium Total Bilirubin Direct Bilirubin AST ALT Alkaline Phosphatase Ammonia Troponin I High Sens B-Natriuretic Peptide Total Protein Albumin Lipase Urine Color Urine Appearance Urine pH Ur Specific [place] Urine Protein Urine Glucose (UA) Urine Ketones Urine Blood Urine Nitrite Ur Leukocyte Esterase Urine RBC Urine WBC Ur Squamous Epith Cells Urine Bacteria Hyaline Casts Urine Mucus Salicylates Urine Opiates Screen Urine Fentanyl Screen Acetaminophen Ur Barbiturates Screen Valproic Acid Ur Phencyclidine Scrn Ur Amphetamines Screen U Benzodiazepines Scrn Urine Cocaine Screen U Marijuana (THC) Screen Ethyl Alcohol COVID-19 ([facility]INDEN) COVID-19 Clin Com Imaging Radiologist's impression: Impressions Head CT 01/24/22 21:41 IMPRESSION: 1. No acute intracranial pathology. Chest X-Ray 01/24/22 21:42 IMPRESSION: No acute pulmonary process. Assessment and Plan (1) CHF (congestive heart failure): Qualifiers: Heart failure chronicity: acute on chronic Heart failure type: unspecified Qualified Code(s): I50.9 - Heart failure, unspecified Status: Acute Patient presents with encephalopathy and heavy alcohol use and poor care of himself and noted BNP be on his dry BNP. He came in with hypoxemia again most likely respiratory depression in the setting of known prior diastolic heart failure. Clinically does not appear to be fluid overloaded or in significant heart failure. His hypoxemia has now resolved with BiPAP therapy. Is elevated BNP most likely due to RV strain from hypoxic pulmonary vaso constriction. Does appear to be in florid heart failure and does not require IV diuresis. Switch to his usual oral diuretic regimen. Continue supportive care. Continue CPAP/BiPAP therapy. Alcohol abstinence and cessation related counseling should be pursued. Overall prognosis is guarded. Atrial fibrillation appears to have adequate rate control at this point in time. Continue to follow rate control. Continue full oral anticoagulation Will sign of the case. Procedures Date of Service Date of Service: 01/25/22
--- NOTE | 2022-01-25 11:50 | PC.NURSE ---
repositioned pt and cleaned him up, pt was incontinent of urine. [place] cath was off, replaced at this time
--- NOTE | 2022-01-25 12:59 | P.PNIM_ITS ---
Subjective Subjective Date of Service: 01/25/22 Interval History: the patient was seen and evaluated this morning Laying in bed, still confused and very difficult to understand what he is saying keeps removing the oxygen cannula Of BiPAP for now No reported other overnight events. Review of Systems Review of Systems: Yes Unobtainable due to mental status Physical Exam Vital Signs: Vital Signs: Last Vital Signs Temp 98.4 F 01/24/22 21:01 Pulse 111 H 01/25/22 09:38 Resp 12 01/25/22 09:38 BP 122/85 01/25/22 09:38 Pulse Ox 97 01/25/22 09:38 O2 Del Method 01/25/22 09:38 O2 Flow Rate 4 01/25/22 09:38 BMI result Body Mass Index 39.0 Const: Other: Constitutional : Alert with stimulation, altered mentation, not in distress, morbidly obese Neck : Normal inspection, Supple Cardiovascular : RRR, no JVP, trace lower extremity edema Respiratory : decreased bilateral air entry, basal fine bilateral crackles, wheezes or rhonchi Gastrointestinal: soft, lax, Normal bowel sounds, Non tender Skin : Warm, Dry Neurological : Alert with stimulation & disoriented, No focal deficit , CN 2- 12 within normal Objective Data Active Medications Acetaminophen (Acetaminophen 325 Mg Tablet) 650 mg PO Q6H PRN PRN Reason: Pain, Mild (Pain Scale 1-3) Allopurinol (Allopurinol 100 Mg Tablet) 100 mg PO DAILY [facility] Last Admin: 01/25/22 09:33 Dose: 100 mg Documented By: RAY Amlodipine Besylate (Amlodipine Besylate 5 Mg Tablet) 5 mg PO DAILY [facility]; Protocol Last Admin: 01/25/22 09:34 Dose: 5 mg Documented By: RAY Apixaban (Apixaban 5 Mg Tablet) 5 mg PO BID [facility] Last Admin: 01/25/22 09:33 Dose: 5 mg Documented By: RAY Cyclobenzaprine HCl (Cyclobenzaprine Hcl 10 Mg Tablet) 10 mg PO BEDTIME PRN PRN Reason: muscle spasm Divalproex Sodium (Divalproex Sodium 250 Mg Tablet.) 250 mg PO BID [facility] Last Admin: 01/25/22 09:33 Dose: 250 mg Documented By: RAY Docusate Sodium (Docusate Sodium 100 Mg Capsule) 100 mg PO DAILY PRN PRN Reason: Constipation Fluoxetine HCl (Fluoxetine Hcl 20 Mg Capsule) 40 mg PO DAILY [facility] Last Admin: 01/25/22 09:33 Dose: 40 mg Documented By: RAY Folic Acid (Folic Acid 1 Mg Tablet) 1 mg PO DAILY [facility] Last Admin: 01/25/22 08:08 Dose: 1 mg Documented By: RAY Furosemide (Furosemide 40 Mg/4 Ml Vial) 40 mg IVPUSH BID@0900,1800 [facility]; Protocol Stop: 01/25/22 20:00 Last Admin: 01/25/22 08:09 Dose: 40 mg Documented By: RAY Furosemide (Furosemide 20 Mg Tablet) 30 mg PO DAILY [facility]; Protocol Lorazepam (Lorazepam 0.5 Mg Tablet) 0.5 mg PO BID PRN PRN Reason: anxiety Metoprolol Tartrate (Metoprolol Tartrate 25 Mg Tablet) 25 mg PO BID [facility]; Protocol Last Admin: 01/25/22 09:32 Dose: 25 mg Documented By: RAY Naproxen (Naproxen 500 Mg Tablet) 500 mg PO BID PRN PRN Reason: for pain Omeprazole (Omeprazole 40 Mg Capsule.Dr) 40 mg PO DAILY@0630 [facility] Ondansetron HCl (Ondansetron Hcl 4 Mg/2 Ml Vial) 4 mg IVPUSH Q8H PRN PRN Reason: Nausea and Vomiting Pharmacy Consult (Consult Rx Etoh Phenob Im/Po) 1 each MISCELLANE ONCE PRN; Protocol PRN Reason: Consult order Pharmacy Consult (Consult Rx Perform Med Rec) 1 each MISCELLANE ONCE PRN PRN Reason: Consult order Phenobarbital (Phenobarbital 30 Mg Tablet) 60 mg PO BID [facility] Stop: 01/26/22 21:01 Last Admin: 01/25/22 08:08 Dose: 60 mg Documented By: RAY Phenobarbital (Phenobarbital 30 Mg Tablet) 30 mg PO BID [facility] Stop: 01/28/22 21:01 Phenobarbital (Phenobarbital 15 Mg Tablet) 15 mg PO DAILY [facility] Stop: 01/30/22 09:01 Sodium Chloride (0.9 % Sodium Chloride Flush 3 Ml Syringe) 3 ml IVFLUSH QSHIFT [facility] Last Admin: 01/25/22 08:07 Dose: Not Given Documented By: RAY Non-Admin Reason: IV Running Thiamine HCl (Thiamine Hcl 100 Mg Tablet) 100 mg PO DAILY [facility] Last Admin: 01/25/22 08:09 Dose: 100 mg Documented By: RAY Labs CBC & Chem 7: 01/25/22 08:26 01/25/22 08:26 Labs: Laboratory Results - last 24 hr 01/24/22 01/24/22 01/24/22 21:25 21:25 21:25 MCV 90.5 MCH 26.8 L MCHC 29.6 L RDW 16.9 H Plt Count 134 L D MPV 11.3 Immature Gran % (Auto) 0.3 Neut % (Auto) 62.6 Lymph % (Auto) 20.7 [place] % (Auto) 13.6 H Eos % (Auto) 1.9 Baso % (Auto) 0.9 Lymph # (Auto) 1.5 [place] # (Auto) 1.0 Eos # (Auto) 0.1 Baso # (Auto) 0.1 Abs Immat Gran (auto) 0.02 Absolute Neuts (auto) 4.6 Absolute Nucleated RBC 0.000 Nucleated RBC % (auto) 0.0 PT INR O2 Saturation ABG pH at Pt Temp ABG pCO2 at Pt Temp ABG pO2 at Pt Temp ABG HCO3 ABG Base Excess (Actual) Anion Gap 17 Estim Creat Clear Calc 76.8 Estimated GFR 49 POC Glucose Random Glucose 107 Calcium 9.0 D Magnesium 1.6 Total Bilirubin 2.0 H Direct Bilirubin 1.4 H AST 15 D ALT 7 Alkaline Phosphatase 81 D Ammonia 22 B-Natriuretic Peptide Total Protein 7.4 Albumin 3.6 Lipase 22 Urine Color Urine Appearance Urine pH Ur Specific [place] Urine Protein Urine Glucose (UA) Urine Ketones Urine Blood Urine Nitrite Ur Leukocyte Esterase Urine RBC Urine WBC Ur Squamous Epith Cells Urine Bacteria Hyaline Casts Urine Mucus Salicylates < 5.0 L Urine Opiates Screen Urine Fentanyl Screen Acetaminophen < 1 Ur Barbiturates Screen Valproic Acid Cancelled Ur Phencyclidine Scrn Ur Amphetamines Screen U Benzodiazepines Scrn Urine Cocaine Screen U Marijuana (THC) Screen Ethyl Alcohol COVID-19 ([facility]) COVID-19 Clin Com 01/24/22 01/24/22 01/24/22 21:25 21:25 21:25 MCV MCH MCHC RDW Plt Count MPV Immature Gran % (Auto) Neut % (Auto) Lymph % (Auto) [place] % (Auto) Eos % (Auto) Baso % (Auto) Lymph # (Auto) [place] # (Auto) Eos # (Auto) Baso # (Auto) Abs Immat Gran (auto) Absolute Neuts (auto) Absolute Nucleated RBC Nucleated RBC % (auto) PT 20.2 H INR 1.7 H O2 Saturation ABG pH at Pt Temp ABG pCO2 at Pt Temp ABG pO2 at Pt Temp ABG HCO3 ABG Base Excess (Actual) Anion Gap Estim Creat Clear Calc Estimated GFR POC Glucose Random Glucose Calcium Magnesium Total Bilirubin Direct Bilirubin AST ALT Alkaline Phosphatase Ammonia B-Natriuretic Peptide 1013 H Total Protein Albumin Lipase Urine Color Urine Appearance Urine pH Ur Specific [place] Urine Protein Urine Glucose (UA) Urine Ketones Urine Blood Urine Nitrite Ur Leukocyte Esterase Urine RBC Urine WBC Ur Squamous Epith Cells Urine Bacteria Hyaline Casts Urine Mucus Salicylates Urine Opiates Screen Urine Fentanyl Screen Acetaminophen Ur Barbiturates Screen Valproic Acid Ur Phencyclidine Scrn Ur Amphetamines Screen U Benzodiazepines Scrn Urine Cocaine Screen U Marijuana (THC) Screen Ethyl Alcohol COVID-19 ([facility]IND[facility]) Negative COVID-19 Clin Com See Note 01/24/22 01/24/22 01/24/22 21:25 22:13 22:45 MCV MCH MCHC RDW Plt Count MPV Immature Gran % (Auto) Neut % (Auto) Lymph % (Auto) [place] % (Auto) Eos % (Auto) Baso % (Auto) Lymph # (Auto) [place] # (Auto) Eos # (Auto) Baso # (Auto) Abs Immat Gran (auto) Absolute Neuts (auto) Absolute Nucleated RBC Nucleated RBC % (auto) PT INR O2 Saturation 100.0 ABG pH at Pt Temp 7.40 ABG pCO2 at Pt Temp 59 H ABG pO2 at Pt Temp 145 H ABG HCO3 37 H ABG Base Excess (Actual) 9.8 Anion Gap Estim Creat Clear Calc Estimated GFR POC Glucose Random Glucose Calcium Magnesium Total Bilirubin Direct Bilirubin AST ALT Alkaline Phosphatase Ammonia B-Natriuretic Peptide Total Protein Albumin Lipase Urine Color Urine Appearance Urine pH Ur Specific [place] Urine Protein Urine Glucose (UA) Urine Ketones Urine Blood Urine Nitrite Ur Leukocyte Esterase Urine RBC Urine WBC Ur Squamous Epith Cells Urine Bacteria Hyaline Casts Urine Mucus Salicylates Urine Opiates Screen Urine Fentanyl Screen Acetaminophen Ur Barbiturates Screen Valproic Acid 15.8 L Ur Phencyclidine Scrn Ur Amphetamines Screen U Benzodiazepines Scrn Urine Cocaine Screen U Marijuana (THC) Screen Ethyl Alcohol < 10 COVID-19 ([facility]INDEN) COVID-19 [employer] Com 01/24/22 01/24/22 01/25/22 22:53 22:53 07:25 MCV MCH MCHC RDW Plt Count MPV Immature Gran % (Auto) Neut % (Auto) Lymph % (Auto) [place] % (Auto) Eos % (Auto) Baso % (Auto) Lymph # (Auto) [place] # (Auto) Eos # (Auto) Baso # (Auto) Abs Immat Gran (auto) Absolute Neuts (auto) Absolute Nucleated RBC Nucleated RBC % (auto) PT INR O2 Saturation ABG pH at Pt Temp ABG pCO2 at Pt Temp ABG pO2 at Pt Temp ABG HCO3 ABG Base Excess (Actual) Anion Gap Estim Creat Clear Calc Estimated GFR POC Glucose 78 Random Glucose Calcium Magnesium Total Bilirubin Direct Bilirubin AST ALT Alkaline Phosphatase Ammonia B-Natriuretic Peptide Total Protein Albumin Lipase Urine Color YELLOW Urine Appearance CLEAR Urine pH 6.0 Ur Specific [place] 1.020 Urine Protein NEG Urine Glucose (UA) NEG Urine Ketones NEG Urine Blood 1+ H Urine Nitrite NEG Ur Leukocyte Esterase NEG Urine RBC 1-4 Urine WBC 1-4 Ur Squamous Epith Cells 1+ Urine Bacteria 1+ Hyaline Casts 0-2 Urine Mucus 1+ Salicylates Urine Opiates Screen Not Detected Urine Fentanyl Screen Not Detected Acetaminophen Ur Barbiturates Screen Not Detected Valproic Acid Ur Phencyclidine Scrn Not Detected Ur Amphetamines Screen Not Detected U Benzodiazepines Scrn Not Detected Urine Cocaine Screen Not Detected U Marijuana (THC) Screen Not Detected Ethyl Alcohol COVID-19 ([facility]EN) COVID-19 [employer] Com 01/25/22 01/25/22 08:26 08:26 MCV 89.7 MCH 26.8 L MCHC 29.9 L RDW 16.7 H Plt Count 123 L MPV 11.0 Immature Gran % (Auto) 0.5 H Neut % (Auto) 66.0 Lymph % (Auto) 18.2 L [place] % (Auto) 11.8 H Eos % (Auto) 2.5 Baso % (Auto) 1.0 Lymph # (Auto) 1.5 [place] # (Auto) 1.0 Eos # (Auto) 0.2 Baso # (Auto) 0.1 Abs Immat Gran (auto) 0.04 H Absolute Neuts (auto) 5.3 Absolute Nucleated RBC 0.000 Nucleated RBC % (auto) 0.0 PT INR O2 Saturation ABG pH at Pt Temp ABG pCO2 at Pt Temp ABG pO2 at Pt Temp ABG HCO3 ABG Base Excess (Actual) Anion Gap 14 Estim Creat Clear Calc 81.8 Estimated GFR 53 POC Glucose Random Glucose 99 Calcium 8.7 Magnesium Total Bilirubin Direct Bilirubin AST ALT Alkaline Phosphatase Ammonia B-Natriuretic Peptide Total Protein Albumin Lipase Urine Color Urine Appearance Urine pH Ur Specific [place] Urine Protein Urine Glucose (UA) Urine Ketones Urine Blood Urine Nitrite Ur Leukocyte Esterase Urine RBC Urine WBC Ur Squamous Epith Cells Urine Bacteria Hyaline Casts Urine Mucus Salicylates Urine Opiates Screen Urine Fentanyl Screen Acetaminophen Ur Barbiturates Screen Valproic Acid Ur Phencyclidine Scrn Ur Amphetamines Screen U Benzodiazepines Scrn Urine Cocaine Screen U Marijuana (THC) Screen Ethyl Alcohol COVID-19 ([facility]) COVID-19 Clin Com Assessment and Plan (1) Acute CHF: Status: Acute (2) Encephalopathy: Status: Acute Plan This is a 61-year-old male with past medical history of alcohol abuse among others who presents to the hospital with lethargy and confusion, patient's family report that he has been drinking excessively every day and doing/eating very little # acute on chronic hypoxic respiratory failure # 2/2 Multifactorial, MJ, ohs,acute diastolic CHF elevated BNP change Lasix to p.o. cardiology input appreciated, change back to his oral Lasix Elevated BNP likely from right heart strain monitor intake and output # metabolic encephalopathy oriented to self, not place head CT negative secondary to withdrawal, partially chest CO2 retention continue phenobarb monitor mental status # alcohol withdrawal elevated CIWA on phenobarb thiamine folic acid supplement # MJ, ohs, morbid obesity not using his CPAP at home BiPAP at bedtime monitor respiratory status # history of AFib continue apixaban continue metoprolol DVT prophylaxis Apixaban Given patient's acute CHF, encephalopathy patient will require Overnight hospital stay for further management and evaluation to prevent possible decompensation into hypoxic respiratory failure Quality Stroke Does the patient have a stroke diagnosis?: No VTE Prior VTE?: No VTE Risk Level:: Medical - moderate - high VTE Device Contraindication: Treatment Not Indicated VTE Drug Contraindication: N/A - Med Ordered
[2022-01-25 13:59] LABS: Glucose, Whole Blood 106 mg/dL (60-115)
[2022-01-25] MEDS: 0.9 % Sodium Chloride Flush 3 ML SYRINGE IVFLUSH ×2 (18:39→19:42)
[2022-01-26] VITALS (9 sets, daily range): BP systolic 110–146; BP diastolic 55–96; PULSE 78–86; RESP 18–20; TEMP 36.1–36.8; O2SAT 94–98
[2022-01-26] MEDS: Omeprazole 40 MG CAPSULE.DR PO (05:34)
[2022-01-26 07:50] LABS: Anion Gap 18 (12-20); Blood Urea Nitrogen 22 mg/dL (9-16); Calcium 8.9 mg/dL (8.4-10.2); Carbon Dioxide 34 mmol/L (22-29); Chloride 93 mmol/L (96-108); Creatinine Clr Calc Pharmacy 85.5; Estimated Glomerular Filt Rate 55; Glucose Random 83 mg/dL (60-115); Potassium 3.7 mmol/L (3.3-5.1); Sodium 141 mmol/L (135-145)
--- NOTE | 2022-01-26 08:04 | PC.RT ---
pt found to be off Bipap and alarming. Sats were 72% on room air and lips cyanotic and pt confused. Pt placed on 4 liters nasal cannula Sats up to 92%. pt was confused yesterday in the ED so this is not new for him. Pt did not have aSat probe on his finger and he should as he is on the V60 Bipap and all patients need to be on Tele monitor with a sat pulse ox. pt is upright in chair. no resp distress noted
[2022-01-26] MEDS: 0.9 % Sodium Chloride Flush 3 ML SYRINGE IVFLUSH ×3 (08:59→20:14)
[2022-01-26] MEDS: Thiamine HCL 100 MG TABLET PO (08:59)
[2022-01-26] MEDS: Folic Acid 1 MG TABLET PO (08:59)
[2022-01-26] MEDS: PHENobarbitaL 30 MG TABLET 60 MG PO ×2 (08:59→20:13)
[2022-01-26] MEDS: Metoprolol Tartrate 25 MG TABLET PO ×2 (08:59→20:13)
[2022-01-26] MEDS: FLUoxetine HCl 20 MG CAPSULE 40 MG PO (08:59)
[2022-01-26] MEDS: amLODIPine Besylate 5 MG TABLET PO (08:59)
[2022-01-26] MEDS: Apixaban 5 MG TABLET PO ×2 (08:59→20:14)
[2022-01-26] MEDS: Divalproex Sodium 250 MG TABLET.DR PO ×2 (09:00→20:14)
[2022-01-26] MEDS: Furosemide 20 MG TABLET 30 MG PO (09:00)
--- NOTE | 2022-01-26 09:12 | MHC.CM.PN ---
Addendum entered by Elana Diaz 01/26/22 14:27: CM MET WITH PT WHO WOKE BRIEFLY BUT FELL ASLEEP MULTIPLE TIMES DURING ASSESSMENT HE CONFIRMS HE LIVES WITH HIS AND IS INDEPENDENT AT BASELINE PT CONFIRMS HE HAS NO HOME SERVICES AND A CPAP FOR DME PT IS A BUT SAYS HE IS NOT SERVICES CONNECTED PT HAS A HCP ON FILE AND HIS PCP IS RANDAL CORDOVA IMM DELIVERED CM DID MENTION POSSIBLE STR HOWEVER PT REPORTS HE IS NOT WILLING TO GO ANYWHERE BUT HOME HE ALSO DOES NOT INITIALLY AGREE TO VNA BUT SAYS HE WILL THINK ABOUT IT DCP TBD Original Note: CM ATTEMPTED TO SEE PT WHO WAS RECEIVING CARE FROM NURSING STAFF CM WILL RETURN
[2022-01-26] MEDS: allopurinoL 100 MG TABLET PO (09:19)
--- NOTE | 2022-01-26 11:07 | PM.CNPUL ---
History of Present Illness History of Present Illness Consult date: 01/26/22 Reason for consult: obstructive sleep apnea and other (Hypoventilation syndrome ) Chief complaint: Alcohol withdrawal Narrative: This 61 years old gentleman is well known to us from previous admissions. He was seen by me in the office for outpatient follow-up only once a few months ago, after which he never came for follow-up. He is known to have morbid obesity, MJ, chronic hypoventilation syndrome. Amongst all the other multiple comorbidities. He has history of chronic respiratory failure, which should be treated with BiPAP therapy every night. But somehow or other he has lost his CPAP machine. He claims that he uses his brothers CPAP machine at night, and is supposed to get a new device. Had polysomnogram study in our sleep lab on 12/08/2021. He left against medical advice after 2-1/2 hours of recorded, and did not want to go through this anymore. This brief recording did show that he has obstructive sleep apnea with total sleep time AHI 18 per hour. He was supposed to be started on CPAP therapy with auto PAP mode. However as I had mentioned above he has never been followed up for this. The sleep study was done to document his diagnosis and then request a new CPAP equipment. This time he is admitted because of excessive drinking, change in mental status, which is partly contributed by untreated MJ/hypoventilation syndrome. On admission his blood gas study shows pH 7.4 pCO2 59, indicating chronic compensated respiratory failure. He is the candidate for her nocturnal use of BiPAP, which he has not been doing. Need less to say he is not candidate to lose any weight. 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 I think in addition to all this, he does not have any supervised care at home, and he himself is totally unreliable for taking care of himself. Review of Systems Review of Systems: Yes Unobtainable due to mental condition PMFSH Past Medical History Medical History (Updated 01/26/22 @ 11:55 by Solo Aviles MD) Afib Alcohol dependency Anxiety Arthritis CHF (congestive heart failure) Cirrhosis CKD (chronic kidney disease) stage 3, GFR 30-59 ml/min Depression Diabetes Diastolic CHF, acute on chronic Encephalopathy chronic Fever of unknown origin Gout HTN (hypertension) Hypoventilation associated with obesity syndrome Left atrial enlargement Morbid obesity Obesity (BMI 35.0-39.9 without comorbidity) Obstructive sleep apnea (adult) (pediatric) Seroma due to trauma Sleep apnea Wernicke encephalopathy Family History Family History Father Lung cancer Mother No problems noted. Maternal Aunt History of heart attack Sister No problems noted. Brother Cancer of kidney Brother No problems noted. Brother No problems noted. Brother No problems noted. Brother No problems noted. Brother No problems noted. Other Substance use disorder Surgical History Surgical History No pertinent past surgical history Social History Social History Household Members: Spouse Housing: House Do you presently have visiting nurse or other home services: No Unable to assess alcohol history related to: Unknown Alcohol intake: current Alcohol intake frequency: 3 or more drinks per day Alcohol type: hard liquor Patient Tobacco Use Status: Current everyday Tobacco user Tobacco use type: Cigarette Cigarette Packs Per Day: 1 Cigarettes Per Day: 20.0 e-Cigarette/Vaping Use: Never Used Second Hand Smoke Exposure: Yes service: Yes Current occupational status: unemployed Meds Allergies Allergy/AdvReac Type Severity Reaction Status Date / Time No Known Allergies Allergy Verified 10/14/21 15:13 [No Known Allergies*] Active Medications: Current Medications Acetaminophen (Acetaminophen 325 Mg Tablet) 650 mg PO Q6H PRN PRN Reason: Pain, Mild (Pain Scale 1-3) Allopurinol (Allopurinol 100 Mg Tablet) 100 mg PO DAILY [facility] Last Admin: 01/26/22 09:19 Dose: 100 mg Amlodipine Besylate (Amlodipine Besylate 5 Mg Tablet) 5 mg PO DAILY [facility]; Protocol Last Admin: 01/26/22 08:59 Dose: 5 mg Apixaban (Apixaban 5 Mg Tablet) 5 mg PO BID [facility] Last Admin: 01/26/22 08:59 Dose: 5 mg Cyclobenzaprine HCl (Cyclobenzaprine Hcl 10 Mg Tablet) 10 mg PO BEDTIME PRN PRN Reason: muscle spasm Divalproex Sodium (Divalproex Sodium 250 Mg Tablet.) 250 mg PO BID [facility] Last Admin: 01/26/22 09:00 Dose: 250 mg Docusate Sodium (Docusate Sodium 100 Mg Capsule) 100 mg PO DAILY PRN PRN Reason: Constipation Fluoxetine HCl (Fluoxetine Hcl 20 Mg Capsule) 40 mg PO DAILY [facility] Last Admin: 01/26/22 08:59 Dose: 40 mg Folic Acid (Folic Acid 1 Mg Tablet) 1 mg PO DAILY [facility] Last Admin: 01/26/22 08:59 Dose: 1 mg Furosemide (Furosemide 20 Mg Tablet) 30 mg PO DAILY [facility]; Protocol Last Admin: 01/26/22 09:00 Dose: 30 mg Lorazepam (Lorazepam 0.5 Mg Tablet) 0.5 mg PO BID PRN PRN Reason: anxiety Metoprolol Tartrate (Metoprolol Tartrate 25 Mg Tablet) 25 mg PO BID [facility]; Protocol Last Admin: 01/26/22 08:59 Dose: 25 mg Naproxen (Naproxen 500 Mg Tablet) 500 mg PO BID PRN PRN Reason: for pain Omeprazole (Omeprazole 40 Mg Capsule.Dr) 40 mg PO DAILY@0630 [facility] Last Admin: 01/26/22 05:34 Dose: 40 mg Ondansetron HCl (Ondansetron Hcl 4 Mg/2 Ml Vial) 4 mg IVPUSH Q8H PRN PRN Reason: Nausea and Vomiting Pharmacy Consult (Consult Rx Etoh Phenob Im/Po) 1 each MISCELLANE ONCE PRN; Protocol PRN Reason: Consult order Pharmacy Consult (Consult Rx Perform Med Rec) 1 each MISCELLANE ONCE PRN PRN Reason: Consult order Phenobarbital (Phenobarbital 30 Mg Tablet) 60 mg PO BID [facility] Stop: 01/26/22 21:01 Last Admin: 01/26/22 08:59 Dose: 60 mg Phenobarbital (Phenobarbital 30 Mg Tablet) 30 mg PO BID [facility] Stop: 01/28/22 21:01 Phenobarbital (Phenobarbital 15 Mg Tablet) 15 mg PO DAILY [facility] Stop: 01/30/22 09:01 Sodium Chloride (0.9 % Sodium Chloride Flush 3 Ml Syringe) 3 ml IVFLUSH QSHIFT [facility] Last Admin: 01/26/22 08:59 Dose: 3 ml Thiamine HCl (Thiamine Hcl 100 Mg Tablet) 100 mg PO DAILY [facility] Last Admin: 01/26/22 08:59 Dose: 100 mg Home Medications Medication Instructions Recorded Confirmed Last Taken Type albuterol sulfate 90 mcg/actuation 2 puff inhalation QID 04/20/22 08/01/22 Unknown History aerosol inhaler Physical Exam Vital Signs: Vital Signs: Last Vital Signs Temp 97.7 F 01/26/22 08:00 Pulse 86 01/26/22 08:00 Resp 20 01/26/22 08:00 BP 142/69 H 01/26/22 08:00 Pulse Ox 95 01/26/22 08:00 O2 Del Method 01/26/22 08:00 O2 Flow Rate 4 01/26/22 08:00 FiO2 40 01/26/22 03:29 BMI result Body Mass Index 39.0 Const: Other: HE IS EXTREMELY OBESE WITH A VERY ROUND FACE AT PRESENT HE IS SOMEWHAT OBTUNDED, DOES NOT CONVERSE MUCH. General: no acute distress, alert and awake HEENT: Head: Yes normal to inspection General nose exam: No nasal polyps present and No nasal discharge present Face and sinus: Yes sinuses nontender Mouth: oropharynx normal Throat: No posterior oropharynx normal (NARROW AND CROWDED, MALLAMPATI CLASS 4) Eyes: General: appearance normal, both eyes and all related structures Neck: Neck: Yes normal visual inspection, Yes no lymphadenopathy, Yes trachea midline, Yes no JVD and Yes other (NECK CIRCUMFERENCE 17 IN) Thyroid: Thyroid normal Chest: Chest palpation & inspection: normal inspection of the chest, normal palpation of entire chest wall and no tenderness Resp: Other: PERCUSSION NOTE IS NOT PERCEPTIBLE DUE TO EXTREMELY THICK CHEST WALL. BREATH SOUNDS ARE VERY DISTANT ON BOTH SIDES. NO WHEEZES OR CREPITATIONS ARE HEARD Auscultation: no crackles and no wheezes Cardio: Palpation: normal PMI Rate: regular rate Rhythm: regular rhythm Heart sounds: no gallops and no murmurs GI: Palpation (GI): Soft to palpation, nontender, No hepatosplenomegaly present, no masses and Other GI palpation findings present (ABDOMEN IS OBESE AND PROTUBERANT) Auscultation: normal bowel sounds Back/Spine/Pelvis: Thoracic/Lumbar Spine: thoracic and lumbar spine normal to inspection, thoraco-lumbar ROM limited and thoraco-lumbar spasm Skin: General skin exam: no rashes or lesions noted Neuro: General: No gait normal (PATIENT IS NON AMBULATORY AND IS IN WHEELCHAIR AT THIS TIME) Cranial nerves: Yes CN's II-XII intact bilaterally Extrem: General: Yes normal to inspection, Yes no clubbing, cyanosis or edema and Yes no calf tenderness Psych: Appearance: grossly normal and well kempt Speech and movement: Normal speech and movement present Affect: Anxious affect present Results Laboratory Findings CBC and BMP: 01/25/22 08:26 01/26/22 06:35 ABG, PT/INR, D-dimer: PT/INR, D-dimer PT 20.2 SEC (10.0-13.1) H 01/24/22 21:25 INR 1.7 (0.9-1.1) H 01/24/22 21:25 Abnormal lab findings: Abnormal Labs 01/24/22 01/24/22 01/24/22 21:25 21:25 21:25 Hgb 13.9 L MCH 26.8 L MCHC 29.6 L RDW 16.9 H Plt Count 134 L D Immature Gran % (Auto) Lymph % (Auto) Brown % (Auto) 13.6 H Abs Immat Gran (auto) PT INR ABG pCO2 at Pt Temp ABG pO2 at Pt Temp ABG HCO3 Chloride 94 L Carbon Dioxide 33 H BUN 25 H Creatinine 1.47 H Total Bilirubin 2.0 H Direct Bilirubin 1.4 H B-Natriuretic Peptide 1013 H Urine Blood Salicylates < 5.0 L Valproic Acid 01/24/22 01/24/22 01/24/22 21:25 22:13 22:45 Hgb MCH MCHC RDW Plt Count Immature Gran % (Auto) Lymph % (Auto) Brown % (Auto) Abs Immat Gran (auto) PT 20.2 H INR 1.7 H ABG pCO2 at Pt Temp 59 H ABG pO2 at Pt Temp 145 H ABG HCO3 37 H Chloride Carbon Dioxide BUN Creatinine Total Bilirubin Direct Bilirubin B-Natriuretic Peptide Urine Blood Salicylates Valproic Acid 15.8 L 01/24/22 01/25/22 01/25/22 22:53 08:26 08:26 Hgb 13.3 L MCH 26.8 L MCHC 29.9 L RDW 16.7 H Plt Count 123 L Immature Gran % (Auto) 0.5 H Lymph % (Auto) 18.2 L Brown % (Auto) 11.8 H Abs Immat Gran (auto) 0.04 H PT INR ABG pCO2 at Pt Temp ABG pO2 at Pt Temp ABG HCO3 Chloride 93 L Carbon Dioxide 38 H BUN 23 H Creatinine Total Bilirubin Direct Bilirubin B-Natriuretic Peptide Urine Blood 1+ H Salicylates Valproic Acid 01/26/22 06:35 Hgb MCH MCHC RDW Plt Count Immature Gran % (Auto) Lymph % (Auto) Brown % (Auto) Abs Immat Gran (auto) PT INR ABG pCO2 at Pt Temp ABG pO2 at Pt Temp ABG HCO3 Chloride 93 L Carbon Dioxide 34 H BUN 22 H Creatinine Total Bilirubin Direct Bilirubin B-Natriuretic Peptide Urine Blood Salicylates Valproic Acid Diagnostic Findings Chest x-ray: report reviewed and image reviewed Assessment and Plan (1) Morbid obesity: Status: Acute (2) Encephalopathy chronic: Status: Acute (3) MJ (obstructive sleep apnea): Status: Acute (4) Hypoventilation associated with obesity syndrome: Status: Acute Plan THIS GENTLEMAN HAS ABOVE-NOTED CHRONIC PROBLEMS HIS MJ/HYPOVENTILATION SYNDROME REMAINS ON TREATED. CLAIMS THAT HE USES CPAP AT NIGHT BUT I DO NOT THINK IT IS A RELIABLE INFORMATION. PART OF HIS MENTAL OBTUNDATION IS SECONDARY TO ON TREATED MJ/HYPOVENTILATION SYNDROME AND MODERATE HYPERCAPNIA. RECC . HE SHOULD BE ON BIPAP TREATMENT THROUGHOUT THE NIGHT, ABOUT 8 HOURS. HE SHOULD ALSO BE ON BIPAP THERAPY FOR 2 HOURS AT A TIME A FEW TIMES DURING THE DAY, UNTIL HIS MENTAL STATUS IMPROVES. O2 SUPPLEMENTATION TO KEEP O2 SAT JUST ABOVE 90% . WHEN HIS MENTAL STATUS IMPROVES HE SHOULD BE ADVISED TO DO DEEP BREATHING EXERCISES WITH INCENTIVE SPIROMETRY, AND SHOULD ALSO BE TRAINED TO DO PURSE LIP BREATHING EXERCISES. HE NEEDS TO USE BIPAP NIGHTLY, ON AN ONGOING BASIS, AND FOR THIS HE MAY NEED SUPERVISED CARE AT HOME. Procedures Date of Service Date of Service: 01/26/22
--- NOTE | 2022-01-26 14:01 | HO.PM.IMPN ---
Subjective Subjective Date of Service: 01/26/22 Interval History: the patient was seen and evaluated this morning Laying in bed, Drowsy, confused and wakes up to stimulation but goes back to sleep directly No reported other overnight events. Review of Systems Review of Systems: Yes Unobtainable due to mental status Physical Exam Vital Signs: Vital Signs: Last Vital Signs Temp 97.8 F 01/26/22 11:27 Pulse 86 01/26/22 11:27 Resp 20 01/26/22 11:27 BP 119/74 01/26/22 11:27 Pulse Ox 94 01/26/22 11:27 O2 Del Method 01/26/22 11:27 O2 Flow Rate 4 01/26/22 11:27 FiO2 40 01/26/22 03:29 BMI result Body Mass Index 39.0 Const: Other: Constitutional : Alert with stimulation but goes back to sleep directly, altered mentation, not in distress, morbidly obese Neck : Normal inspection, Supple Cardiovascular : RRR, no JVP, trace lower extremity edema Respiratory : decreased bilateral air entry, basal fine bilateral crackles, wheezes or rhonchi Gastrointestinal: soft, lax, Normal bowel sounds, Non tender Skin : Warm, Dry Neurological : Alert with stimulation & disoriented, not following, and Objective Data Active Medications Acetaminophen (Acetaminophen 325 Mg Tablet) 650 mg PO Q6H PRN PRN Reason: Pain, Mild (Pain Scale 1-3) Allopurinol (Allopurinol 100 Mg Tablet) 100 mg PO DAILY [facility] Last Admin: 01/26/22 09:19 Dose: 100 mg Documented By: KRIS Amlodipine Besylate (Amlodipine Besylate 5 Mg Tablet) 5 mg PO DAILY [facility]; Protocol Last Admin: 01/26/22 08:59 Dose: 5 mg Documented By: KRIS Apixaban (Apixaban 5 Mg Tablet) 5 mg PO BID [facility] Last Admin: 01/26/22 08:59 Dose: 5 mg Documented By: KRIS Cyclobenzaprine HCl (Cyclobenzaprine Hcl 10 Mg Tablet) 10 mg PO BEDTIME PRN PRN Reason: muscle spasm Divalproex Sodium (Divalproex Sodium 250 Mg Tablet.) 250 mg PO BID [facility] Last Admin: 01/26/22 09:00 Dose: 250 mg Documented By: KRIS Docusate Sodium (Docusate Sodium 100 Mg Capsule) 100 mg PO DAILY PRN PRN Reason: Constipation Fluoxetine HCl (Fluoxetine Hcl 20 Mg Capsule) 40 mg PO DAILY [facility] Last Admin: 01/26/22 08:59 Dose: 40 mg Documented By: KRIS Folic Acid (Folic Acid 1 Mg Tablet) 1 mg PO DAILY [facility] Last Admin: 01/26/22 08:59 Dose: 1 mg Documented By: KRIS Furosemide (Furosemide 20 Mg Tablet) 30 mg PO DAILY [facility]; Protocol Last Admin: 01/26/22 09:00 Dose: 30 mg Documented By: KRIS Lorazepam (Lorazepam 0.5 Mg Tablet) 0.5 mg PO BID PRN PRN Reason: anxiety Metoprolol Tartrate (Metoprolol Tartrate 25 Mg Tablet) 25 mg PO BID [facility]; Protocol Last Admin: 01/26/22 08:59 Dose: 25 mg Documented By: KRIS Naproxen (Naproxen 500 Mg Tablet) 500 mg PO BID PRN PRN Reason: for pain Omeprazole (Omeprazole 40 Mg Capsule.Dr) 40 mg PO DAILY@0630 [facility] Last Admin: 01/26/22 05:34 Dose: 40 mg Documented By: JOSE Ondansetron HCl (Ondansetron Hcl 4 Mg/2 Ml Vial) 4 mg IVPUSH Q8H PRN PRN Reason: Nausea and Vomiting Pharmacy Consult (Consult Rx Etoh Phenob Im/Po) 1 each MISCELLANE ONCE PRN; Protocol PRN Reason: Consult order Pharmacy Consult (Consult Rx Perform Med Rec) 1 each MISCELLANE ONCE PRN PRN Reason: Consult order Phenobarbital (Phenobarbital 30 Mg Tablet) 60 mg PO BID [facility] Stop: 01/26/22 21:01 Last Admin: 01/26/22 08:59 Dose: 60 mg Documented By: KRIS Phenobarbital (Phenobarbital 30 Mg Tablet) 30 mg PO BID [facility] Stop: 01/28/22 21:01 Phenobarbital (Phenobarbital 15 Mg Tablet) 15 mg PO DAILY [facility] Stop: 01/30/22 09:01 Sodium Chloride (0.9 % Sodium Chloride Flush 3 Ml Syringe) 3 ml IVFLUSH QSHIFT [facility] Last Admin: 01/26/22 08:59 Dose: 3 ml Documented By: KRIS Thiamine HCl (Thiamine Hcl 100 Mg Tablet) 100 mg PO DAILY [facility] Last Admin: 01/26/22 08:59 Dose: 100 mg Documented By: KRIS Labs CBC & Chem 7: 01/25/22 08:26 01/26/22 06:35 Labs: Laboratory Results - last 24 hr 01/26/22 06:35 Anion Gap 18 Estim Creat Clear Calc 85.5 Estimated GFR 55 Random Glucose 83 Calcium 8.9 Assessment and Plan (1) Hypoventilation associated with obesity syndrome: Status: Acute (2) Encephalopathy: Status: Acute Plan This is a 61-year-old male with past medical history of alcohol abuse among others who presents to the hospital with lethargy and confusion, patient's family report that he has been drinking excessively every day and doing/eating very little # acute on chronic hypoxic respiratory failure # 2/2 Multifactorial, MJ, ohs,acute diastolic CHF # MJ, ohs, morbid obesity cardiology input appreciated, change back to his oral Lasix Elevated BNP likely from right heart strain monitor intake and output continue p.o. Lasix not using his CPAP at home BiPAP at bedtime and during the day monitor respiratory status pulmonology input appreciated, BiPAP nighttime for 8 hours and 2 hours at time during the daymonitor mental status to do deep breathing exercises and incentive spirometry Should be trying to do pursed lip breathing exercises Might need supervised care at home # metabolic encephalopathy obtunded,oriented to self, not place head CT negative secondary to withdrawal, CO2 retention continue phenobarb BiPAP daytime and bedtime # alcohol withdrawal CIWA on phenobarb thiamine folic acid supplement # history of AFib continue apixaban continue metoprolol DVT prophylaxis Apixaban Given patient's acute CHF, encephalopathy patient will require Overnight hospital stay for further management and evaluation to prevent possible decompensation into hypoxic respiratory failure Quality Stroke Does the patient have a stroke diagnosis?: No VTE Prior VTE?: No VTE Risk Level:: Medical - moderate - high VTE Device Contraindication: Treatment Not Indicated VTE Drug Contraindication: N/A - Med Ordered
[2022-01-27 03:35] VITALS: BP 141/83; PULSE 69; RESP 20; TEMP 36.7; O2SAT 99
[2022-01-27 07:43] LABS: Anion Gap 15 (12-20); Blood Urea Nitrogen 22 mg/dL (9-16); Calcium 9.2 mg/dL (8.4-10.2); Carbon Dioxide 39 mmol/L (22-29); Chloride 92 mmol/L (96-108); Creatinine Clr Calc Pharmacy 92.5; Estimated Glomerular Filt Rate > 60; Glucose Random 90 mg/dL (60-115); Sodium 142 mmol/L (135-145)
[2022-01-27 07:47] VITALS: BP 133/60; PULSE 77; RESP 20; TEMP 36.6; O2SAT 92
--- NOTE | 2022-01-27 09:23 | MHC.CM.PN ---
[facility]/IMM addressed with Patient at bedside; original given to him and a copy has been placed on the chart.
[2022-01-27] MEDS: FLUoxetine HCl 20 MG CAPSULE 40 MG PO (10:24)
[2022-01-27] MEDS: Furosemide 20 MG TABLET 30 MG PO (10:25)
[2022-01-27] MEDS: amLODIPine Besylate 5 MG TABLET PO (10:26)
[2022-01-27] MEDS: PHENobarbitaL 30 MG TABLET PO ×2 (10:26→22:31)
[2022-01-27] MEDS: Folic Acid 1 MG TABLET PO (10:26)
[2022-01-27] MEDS: Divalproex Sodium 250 MG TABLET.DR PO ×2 (10:26→22:31)
[2022-01-27] MEDS: Apixaban 5 MG TABLET PO ×2 (10:26→22:31)
[2022-01-27] MEDS: Metoprolol Tartrate 25 MG TABLET PO ×2 (10:27→22:30)
[2022-01-27] MEDS: Thiamine HCL 100 MG TABLET PO (10:27)
[2022-01-27] MEDS: 0.9 % Sodium Chloride Flush 3 ML SYRINGE IVFLUSH ×3 (10:27→22:31)
[2022-01-27] MEDS: allopurinoL 100 MG TABLET PO (10:27)
--- NOTE | 2022-01-27 10:59 | MHC.CM.PN ---
Per ROUNDS discussion, Patient is not yet medically cleared for dc (still weaning O2); Home is Patient's goal and CM will continue to follow
[2022-01-27 11:43] VITALS: BP 137/76; PULSE 78; RESP 18; TEMP 36.7; O2SAT 96
--- NOTE | 2022-01-27 12:20 | P.PNIM_ITS ---
Subjective Subjective Date of Service: 01/27/22 Interval History: the patient was seen and evaluated this morning more alert and interactive today Still requiring 4 L of oxygen No reported other overnight events. Review of Systems No fever, chills but reports generalized weakness and feeling tired No chest pain, palpitation No shortness of breath or coughing No abdominal pain, nausea or vomiting No urinary symptoms Physical Exam Vital Signs: Vital Signs: Last Vital Signs Temp 98.1 F 01/27/22 11:43 Pulse 78 01/27/22 11:43 Resp 18 01/27/22 11:43 BP 137/76 01/27/22 11:43 Pulse Ox 96 01/27/22 11:43 O2 Del Method 01/27/22 11:43 O2 Flow Rate 4 01/27/22 11:43 FiO2 40 01/26/22 03:29 BMI result Body Mass Index 39.0 Const: Other: Constitutional : Alert and more interactive, not in distress, morbidly obese Neck : Normal inspection, Supple Cardiovascular : RRR, no JVP, trace lower extremity edema Respiratory : decreased bilateral air entry, no bilateral crackles, wheezes or rhonchi, oxygen supplement Gastrointestinal: soft, lax, Normal bowel sounds, Non tender Skin : Warm, Dry Neurological : Alert , oriented to self and place, no focal weakness Objective Data Active Medications Acetaminophen (Acetaminophen 325 Mg Tablet) 650 mg PO Q6H PRN PRN Reason: Pain, Mild (Pain Scale 1-3) Allopurinol (Allopurinol 100 Mg Tablet) 100 mg PO DAILY [facility] Last Admin: 01/27/22 10:27 Dose: 100 mg Documented By: MILADIS Amlodipine Besylate (Amlodipine Besylate 5 Mg Tablet) 5 mg PO DAILY [facility]; Protocol Last Admin: 01/27/22 10:26 Dose: 5 mg Documented By: MILADIS Apixaban (Apixaban 5 Mg Tablet) 5 mg PO BID [facility] Last Admin: 01/27/22 10:26 Dose: 5 mg Documented By: MILADIS Cyclobenzaprine HCl (Cyclobenzaprine Hcl 10 Mg Tablet) 10 mg PO BEDTIME PRN PRN Reason: muscle spasm Divalproex Sodium (Divalproex Sodium 250 Mg Tablet.) 250 mg PO BID [facility] Last Admin: 01/27/22 10:26 Dose: 250 mg Documented By: MILADIS Docusate Sodium (Docusate Sodium 100 Mg Capsule) 100 mg PO DAILY PRN PRN Reason: Constipation Fluoxetine HCl (Fluoxetine Hcl 20 Mg Capsule) 40 mg PO DAILY [facility] Last Admin: 01/27/22 10:24 Dose: 40 mg Documented By: MILADIS Folic Acid (Folic Acid 1 Mg Tablet) 1 mg PO DAILY [facility] Last Admin: 01/27/22 10:26 Dose: 1 mg Documented By: MILADIS Furosemide (Furosemide 20 Mg Tablet) 30 mg PO DAILY [facility]; Protocol Last Admin: 01/27/22 10:25 Dose: 30 mg Documented By: MILADIS Lorazepam (Lorazepam 0.5 Mg Tablet) 0.5 mg PO BID PRN PRN Reason: anxiety Metoprolol Tartrate (Metoprolol Tartrate 25 Mg Tablet) 25 mg PO BID [facility]; Protocol Last Admin: 01/27/22 10:27 Dose: 25 mg Documented By: MILADIS Naproxen (Naproxen 500 Mg Tablet) 500 mg PO BID PRN PRN Reason: for pain Omeprazole (Omeprazole 40 Mg Capsule.Dr) 40 mg PO DAILY@0630 [facility] Last Admin: 01/27/22 06:03 Dose: Not Given Documented By: CAROLYNE Non-Admin Reason: Patient Refused Ondansetron HCl (Ondansetron Hcl 4 Mg/2 Ml Vial) 4 mg IVPUSH Q8H PRN PRN Reason: Nausea and Vomiting Pharmacy Consult (Consult Rx Etoh Phenob Im/Po) 1 each MISCELLANE ONCE PRN; Protocol PRN Reason: Consult order Pharmacy Consult (Consult Rx Perform Med Rec) 1 each MISCELLANE ONCE PRN PRN Reason: Consult order Phenobarbital (Phenobarbital 30 Mg Tablet) 30 mg PO BID [facility] Stop: 01/28/22 21:01 Last Admin: 01/27/22 10:26 Dose: 30 mg Documented By: MILADIS Phenobarbital (Phenobarbital 15 Mg Tablet) 15 mg PO DAILY [facility] Stop: 01/30/22 09:01 Sodium Chloride (0.9 % Sodium Chloride Flush 3 Ml Syringe) 3 ml IVFLUSH QSHIFT [facility] Last Admin: 01/27/22 10:27 Dose: 3 ml Documented By: MILADIS Thiamine HCl (Thiamine Hcl 100 Mg Tablet) 100 mg PO DAILY [facility] Last Admin: 01/27/22 10:27 Dose: 100 mg Documented By: MILADIS Labs CBC & Chem 7: 01/25/22 08:26 01/27/22 06:33 Labs: Laboratory Results - last 24 hr 01/27/22 06:33 Anion Gap 15 Estim Creat Clear Calc 92.5 Estimated GFR > 60 Random Glucose 90 Calcium 9.2 Assessment and Plan (1) Hypoventilation associated with obesity syndrome: Status: Acute (2) Acute alteration in mental status: Status: Acute (3) Alcohol withdrawal: Status: Acute Plan This is a 61-year-old male with past medical history of alcohol abuse among others who presents to the hospital with lethargy and confusion, patient's family report that he has been drinking excessively every day and doing/eating very little # acute on chronic hypoxic respiratory failure # 2/2 Multifactorial, MJ, ohs,acute diastolic CHF # MJ, ohs, morbid obesity cardiology input appreciated, change back to his oral Lasix Elevated BNP likely from right heart strain continue p.o. Lasix not using his CPAP at home , BiPAP at bedtime and during the day, discussed the need to use CPAP at home pulmonology input appreciated, BiPAP nighttime for 8 hours and 2 hours at time during the daymonitor mental status to do deep breathing exercises and incentive spirometry Should be trying to do pursed lip breathing exercises Might need supervised care at home , I spoke with his healthcare proxy his brother Ortiz who believe he has an alcoholism problem and does not use the machine at home. Continue to wean down oxygen as tolerated # metabolic encephalopathy improving head CT negative secondary to withdrawal, CO2 retention continue phenobarb BiPAP daytime and bedtime # alcohol withdrawal CIWA on phenobarb thiamine folic acid supplement to get addiction team evaluation # history of AFib continue apixaban continue metoprolol DVT prophylaxis Apixaban Given patient's acute CHF, encephalopathy patient will require Overnight hospital stay for further management and evaluation to prevent possible decompensation into hypoxic respiratory failure Quality Stroke Does the patient have a stroke diagnosis?: No VTE Prior VTE?: No VTE Risk Level:: Medical - moderate - high VTE Device Contraindication: Treatment Not Indicated VTE Drug Contraindication: N/A - Med Ordered
--- NOTE | 2022-01-27 12:48 | PM.PNPUL ---
Subjective Subjective Date of Service: 01/27/22 Principal diagnosis: resp.failure, MJ/Hypoventilation . Interval history: This gentleman is little more alert and orientated today, Does not seem to be in respiratory distress, Does use O2 continuously. I was told by the nursing staff that he capped his BiPAP on last night. Objective Data Labs CBC & Chem 7: 01/25/22 08:26 01/27/22 06:33 Labs: Laboratory Results - last 24 hr 01/27/22 06:33 Sodium 142 Potassium 4.0 Chloride 92 L Carbon Dioxide 39 H Anion Gap 15 BUN 22 H Creatinine 1.22 Estim Creat Clear Calc 92.5 Estimated GFR > 60 Random Glucose 90 Calcium 9.2 Review of Systems Review of Systems Yes Unobtainable due to mental condition Physical Exam Vital Signs: Vital Signs: Last Vital Signs Temp 98.1 F 01/27/22 11:43 Pulse 78 01/27/22 11:43 Resp 18 01/27/22 11:43 BP 137/76 01/27/22 11:43 Pulse Ox 96 01/27/22 11:43 O2 Del Method 01/27/22 11:43 O2 Flow Rate 4 01/27/22 11:43 FiO2 40 01/26/22 03:29 BMI result Body Mass Index 39.0 Const: Other: HE IS EXTREMELY OBESE WITH A VERY ROUND FACE AT PRESENT HE IS SOMEWHAT OBTUNDED, DOES NOT CONVERSE MUCH. General: no acute distress, alert and awake HEENT: Head: Yes normal to inspection General nose exam: No nasal polyps present and No nasal discharge present Face and sinus: Yes sinuses nontender Mouth: oropharynx normal Throat: No posterior oropharynx normal (NARROW AND CROWDED, MALLAMPATI CLASS 4) Eyes: General: appearance normal, both eyes and all related structures Neck: Neck: Yes normal visual inspection, Yes no lymphadenopathy, Yes trachea midline, Yes no JVD and Yes other (NECK CIRCUMFERENCE 17 IN) Thyroid: Thyroid normal Chest: Chest palpation & inspection: normal inspection of the chest, normal palpation of entire chest wall and no tenderness Resp: Other: PERCUSSION NOTE IS NOT PERCEPTIBLE DUE TO EXTREMELY THICK CHEST WALL. BREATH SOUNDS ARE VERY DISTANT ON BOTH SIDES. NO WHEEZES OR CREPITATIONS ARE HEARD Auscultation: no crackles and no wheezes Cardio: Palpation: normal PMI Rate: regular rate Rhythm: regular rhythm Heart sounds: no gallops and no murmurs GI: Palpation (GI): Soft to palpation, nontender, No hepatosplenomegaly present, no masses and Other GI palpation findings present (ABDOMEN IS OBESE AND PROTUBERANT) Auscultation: normal bowel sounds Back/Spine/Pelvis: Thoracic/Lumbar Spine: thoracic and lumbar spine normal to inspection, thoraco-lumbar ROM limited and thoraco-lumbar spasm Skin: General skin exam: no rashes or lesions noted Neuro: General: No gait normal (PATIENT IS NON AMBULATORY,CONFINED TO BED AND CHAIR ) Cranial nerves: Yes CN's II-XII intact bilaterally Extrem: General: Yes normal to inspection, Yes no clubbing, cyanosis or edema and Yes no calf tenderness Psych: Other: CONFUSED AND NOT ABLE TO CONVERSE WELL. Procedures Date of Service Date of Service: 01/27/22 Assessment and Plan Assessment and plan (1) Hypoventilation associated with obesity syndrome: Status: Acute (2) Morbid obesity: Status: Acute (3) MJ (obstructive sleep apnea): Status: Acute Assessment and Plan: This gentleman with morbid obesity,, severe obstructive sleep apnea, hypoventilation syndrome, Chronic respiratory failure, with hypoxemia and hypercapnia, Did use BiPAP last night and his mental status is definitely improved does not totally clear. PLAN: Continue to enforce using BiPAP at night for at least 8 hours, and also p.r.n. during the daytime if he becomes mentally obtunded . Continue oxygen to keep O2 sat just above 90%. Continue the respiratory treatments. Check blood gases in the morning. Time Spent With Patient Time: Total time spent is greater than 50% in coordination of care (as documented) at patient's floor/unit and/or counseling patient: Progress Note: Quality Stroke Does the patient have a stroke diagnosis?: No
[2022-01-27 12:59] VITALS: BP 137/76; PULSE 78; O2SAT 96
--- NOTE | 2022-01-27 13:00 | MHC.CM.PN ---
Per PT, the recommendation is home with home PT/VNA. CM will follow.
[2022-01-27 14:55] VITALS: BP 119/69; PULSE 92; RESP 18; TEMP 36.7; O2SAT 92
[2022-01-27 20:00] VITALS: BP 125/71; PULSE 78; RESP 20; TEMP 36.9; O2SAT 97
[2022-01-28] VITALS (10 sets, daily range): BP systolic 123–167; BP diastolic 72–93; PULSE 60–88; RESP 15–22; TEMP 36.3–37.1; O2SAT 94–99
[2022-01-28] MEDS: Omeprazole 40 MG CAPSULE.DR PO (06:00)
[2022-01-28 06:25] LABS: VBG Base Excess 18.1 mmol/L; VBG HCO3 48 mmol/L (22-26); VBG pCO2 82 mmHg; VBG pH 7.37 (7.32-7.43); VBG pO2 30 mmHg
[2022-01-28 06:29] LABS: Venous Blood Gas Refer to POC result
[2022-01-28 06:41] LABS: Anion Gap 14 (12-20); Blood Urea Nitrogen 19 mg/dL (9-16); Calcium 9.4 mg/dL (8.4-10.2); Chloride 91 mmol/L (96-108); Creatinine Clr Calc Pharmacy 100.8; Estimated Glomerular Filt Rate > 60; Glucose Random 106 mg/dL (60-115); Potassium 3.9 mmol/L (3.3-5.1); Sodium 141 mmol/L (135-145)
[2022-01-28 07:00] LABS: Carbon Dioxide 40 mmol/L (22-29)
[2022-01-28] MEDS: Metoprolol Tartrate 25 MG TABLET PO ×2 (09:40→20:02)
[2022-01-28] MEDS: Furosemide 20 MG TABLET 30 MG PO (09:40)
[2022-01-28] MEDS: Apixaban 5 MG TABLET PO ×2 (09:40→20:02)
[2022-01-28] MEDS: Folic Acid 1 MG TABLET PO (09:40)
[2022-01-28] MEDS: 0.9 % Sodium Chloride Flush 3 ML SYRINGE IVFLUSH ×2 (09:40→16:16)
[2022-01-28] MEDS: FLUoxetine HCl 20 MG CAPSULE 40 MG PO (09:41)
[2022-01-28] MEDS: Divalproex Sodium 250 MG TABLET.DR PO ×2 (09:41→20:02)
[2022-01-28] MEDS: allopurinoL 100 MG TABLET PO (09:41)
[2022-01-28] MEDS: amLODIPine Besylate 5 MG TABLET PO (09:41)
[2022-01-28] MEDS: PHENobarbitaL 30 MG TABLET PO ×2 (09:41→20:02)
[2022-01-28] MEDS: Thiamine HCL 100 MG TABLET PO (09:41)
--- NOTE | 2022-01-28 11:26 | MHC.CM.PN ---
PT is now recommending STR; it is anticipated that Patient will decline STR but CM will continue to follow.
--- NOTE | 2022-01-28 11:30 | HO.PM.IMPN ---
Subjective Subjective Date of Service: 01/28/22 Interval History: seen and examined this morning Patient observed sitting up in chair, awake, but appears confused /sleepy knows his name and that he is in [facility] Review of Systems Review of Systems: Yes all other systems are reviewed and are negative Constitutional Constitutional: Denies chills and Denies fever(s) Cardiovascular Cardiovascular: Denies chest pain, Denies palpitations and Denies dyspnea Respiratory Respiratory: Denies cough and Denies dyspnea Gastrointestinal Gastrointestinal: Denies abdominal pain Endocrine Endocrine: Denies palpitations Physical Exam Vital Signs: Vital Signs: Last Vital Signs Temp 98.6 F 01/28/22 08:00 Pulse 60 01/28/22 09:54 Resp 20 01/28/22 08:00 BP 123/77 01/28/22 09:54 Pulse Ox 96 01/28/22 09:54 O2 Del Method 01/28/22 08:00 O2 Flow Rate 4 01/28/22 08:00 FiO2 40 01/28/22 04:00 BMI result Body Mass Index 39.0 Const: General: cooperative, comfortable and awake Nutritional Appearance: obese Orientation/consciousness: oriented to person and oriented to place Resp: Effort & Inspection: normal respiratory effort and able to speak in complete sentences Cardio: Rate: regular rate Heart sounds: S1 normal heart sound present and S2 normal heart sound present GI: Inspection: No distended Palpation (GI): Soft to palpation and nontender Neuro: General: oriented to person and oriented to place Extrem: Other: trace leg edema Objective Data Active Medications Acetaminophen (Acetaminophen 325 Mg Tablet) 650 mg PO Q6H PRN PRN Reason: Pain, Mild (Pain Scale 1-3) Allopurinol (Allopurinol 100 Mg Tablet) 100 mg PO DAILY [facility] Last Admin: 01/28/22 09:41 Dose: 100 mg Documented By: KOTA Amlodipine Besylate (Amlodipine Besylate 5 Mg Tablet) 5 mg PO DAILY [facility]; Protocol Last Admin: 01/28/22 09:41 Dose: 5 mg Documented By: KOTA Apixaban (Apixaban 5 Mg Tablet) 5 mg PO BID [facility] Last Admin: 01/28/22 09:40 Dose: 5 mg Documented By: KOTA Cyclobenzaprine HCl (Cyclobenzaprine Hcl 10 Mg Tablet) 10 mg PO BEDTIME PRN PRN Reason: muscle spasm Divalproex Sodium (Divalproex Sodium 250 Mg Tablet.) 250 mg PO BID [facility] Last Admin: 01/28/22 09:41 Dose: 250 mg Documented By: KOTA Docusate Sodium (Docusate Sodium 100 Mg Capsule) 100 mg PO DAILY PRN PRN Reason: Constipation Fluoxetine HCl (Fluoxetine Hcl 20 Mg Capsule) 40 mg PO DAILY [facility] Last Admin: 01/28/22 09:41 Dose: 40 mg Documented By: KOTA Folic Acid (Folic Acid 1 Mg Tablet) 1 mg PO DAILY [facility] Last Admin: 01/28/22 09:40 Dose: 1 mg Documented By: OKTA Furosemide (Furosemide 20 Mg Tablet) 30 mg PO DAILY [facility]; Protocol Last Admin: 01/28/22 09:40 Dose: 30 mg Documented By: KOTA Lorazepam (Lorazepam 0.5 Mg Tablet) 0.5 mg PO BID PRN PRN Reason: anxiety Metoprolol Tartrate (Metoprolol Tartrate 25 Mg Tablet) 25 mg PO BID [facility]; Protocol Last Admin: 01/28/22 09:40 Dose: 25 mg Documented By: KOTA Naproxen (Naproxen 500 Mg Tablet) 500 mg PO BID PRN PRN Reason: for pain Omeprazole (Omeprazole 40 Mg Capsule.) 40 mg PO DAILY@0630 [facility] Last Admin: 01/28/22 06:00 Dose: 40 mg Documented By: WENDY Ondansetron HCl (Ondansetron Hcl 4 Mg/2 Ml Vial) 4 mg IVPUSH Q8H PRN PRN Reason: Nausea and Vomiting Pharmacy Consult (Consult Rx Etoh Phenob Im/Po) 1 each MISCELLANE ONCE PRN; Protocol PRN Reason: Consult order Pharmacy Consult (Consult Rx Perform Med Rec) 1 each MISCELLANE ONCE PRN PRN Reason: Consult order Phenobarbital (Phenobarbital 30 Mg Tablet) 30 mg PO BID [facility] Stop: 01/28/22 21:01 Last Admin: 01/28/22 09:41 Dose: 30 mg Documented By: KOTA Phenobarbital (Phenobarbital 15 Mg Tablet) 15 mg PO DAILY [facility] Stop: 01/30/22 09:01 Sodium Chloride (0.9 % Sodium Chloride Flush 3 Ml Syringe) 3 ml IVFLUSH QSHIFT [facility] Last Admin: 01/28/22 09:40 Dose: 3 ml Documented By: KOTA Thiamine HCl (Thiamine Hcl 100 Mg Tablet) 100 mg PO DAILY [facility] Last Admin: 01/28/22 09:41 Dose: 100 mg Documented By: KOTA Labs CBC & Chem 7: 01/25/22 08:26 01/28/22 06:13 Labs: Laboratory Results - last 24 hr 01/28/22 01/28/22 06:13 06:19 VBG pH 7.37 VBG pCO2 82 VBG pO2 30 VBG HCO3 48 H VBG O2 Saturation 33.0 VBG Base Excess 18.1 Anion Gap 14 Estim Creat Clear Calc 100.8 Estimated GFR > 60 Random Glucose 106 Calcium 9.4 Assessment and Plan (1) Hypoventilation associated with obesity syndrome: Status: Acute (2) Chronic respiratory failure: Status: Acute Plan This is a 61-year-old male with past medical history of alcohol abuse among others who presents to the hospital with lethargy and confusion, patient's family report that he has been drinking excessively every day and doing/eating very little # acute on chronic hypoxic respiratory failure # 2/2 Multifactorial, MJ, obesity hypoventilation syndrome,acute diastolic CHF bicarb trending back up, seems more confused cardiology input appreciated, change back to his oral Lasix Elevated BNP likely from right heart strain continue p.o. Lasix not using his CPAP at home , BiPAP at bedtime and during the day, discussed the need to use CPAP at home pulmonology input appreciated, BiPAP nighttime for 8 hours and 2 hours at time during the day o2 goal around 90% to do deep breathing exercises and incentive spirometry Might need supervised care at home , I spoke with his healthcare proxy his brother Ortiz who believe he has an alcoholism problem and does not use the machine at home. Continue to wean down oxygen as tolerated will start diamox # metabolic encephalopathy head CT negative secondary to withdrawal, CO2 retention continue phenobarb BiPAP daytime and bedtime # alcohol withdrawal CIWA on phenobarb thiamine folic acid supplement to get addiction team evaluation # history of AFib continue apixaban continue metoprolol DVT prophylaxis-Apixaban attending - dr. rahman Given patient's acute CHF, encephalopathy patient will require ongoing hospital stay for further management and evaluation to prevent possible decompensation into hypoxic respiratory failure Quality Stroke Does the patient have a stroke diagnosis?: No VTE Prior VTE?: No VTE Risk Level:: Medical - moderate - high VTE Device Contraindication: Treatment Not Indicated VTE Drug Contraindication: N/A - Med Ordered
[2022-01-28] MEDS: acetaZOLAMIDE 250 MG TABLET PO ×2 (11:57→20:02)
[2022-01-29] MEDS: 0.9 % Sodium Chloride Flush 3 ML SYRINGE IVFLUSH ×3 (01:08→20:40)
[2022-01-29 03:31] VITALS: BP 169/84; PULSE 84; RESP 18; TEMP 36.7; O2SAT 96
[2022-01-29 07:01] VITALS: BP 165/70; PULSE 89; RESP 18; TEMP 36.7; O2SAT 96
[2022-01-29 08:46] LABS: Hematocrit 44.7 % (42.0-52.0); Hemoglobin 13.1 g/dl (14.0-18.0); Mean Corpuscular HGB Conc 29.3 g/dl (31.0-36.0); Mean Corpuscular Volume 88.9 fL (80.0-98.0); Mean Platelet Volume 11.5 fL (9.4-12.4); Platelet Count 143 X10*3/uL (160-400); Red Blood Count 5.03 X10*6/uL (4.60-5.80); Red Cell Distribution Width 17.2 % (11.0-16.0); White Blood Count 11.2 X10*3/uL (4.8-10.8)
[2022-01-29 08:46] LABS: VBG Base Excess 12.2 mmol/L; VBG HCO3 41 mmol/L (22-26); VBG pCO2 73 mmHg; VBG pH 7.35 (7.32-7.43); VBG pO2 47 mmHg
[2022-01-29 08:47] LABS: Venous Blood Gas Refer to POC result
[2022-01-29 09:01] LABS: Anion Gap 18 (12-20); Blood Urea Nitrogen 18 mg/dL (9-16); Calcium 9.5 mg/dL (8.4-10.2); Carbon Dioxide 33 mmol/L (22-29); Chloride 92 mmol/L (96-108); Creatinine Clr Calc Pharmacy 101.7; Estimated Glomerular Filt Rate > 60; Glucose Random 79 mg/dL (60-115); Sodium 139 mmol/L (135-145)
[2022-01-29] MEDS: Divalproex Sodium 250 MG TABLET.DR PO (10:14)
[2022-01-29] MEDS: Thiamine HCL 100 MG TABLET PO (10:15)
[2022-01-29] MEDS: Furosemide 20 MG TABLET 30 MG PO (10:15)
[2022-01-29] MEDS: FLUoxetine HCl 20 MG CAPSULE 40 MG PO (10:15)
[2022-01-29] MEDS: acetaZOLAMIDE 250 MG TABLET PO (10:15)
[2022-01-29] MEDS: Metoprolol Tartrate 25 MG TABLET PO (10:15)
[2022-01-29] MEDS: allopurinoL 100 MG TABLET PO (10:16)
[2022-01-29] MEDS: Apixaban 5 MG TABLET PO (10:16)
[2022-01-29] MEDS: PHENobarbitaL 15 MG TABLET PO (10:16)
[2022-01-29] MEDS: Folic Acid 1 MG TABLET PO (10:16)
[2022-01-29] MEDS: amLODIPine Besylate 5 MG TABLET PO (10:16)
--- NOTE | 2022-01-29 10:52 | PM.PNPUL ---
Subjective Subjective Date of Service: 01/29/22 Principal diagnosis: resp.failure, MJ/Hypoventilation . Interval history: THIS 61 YEARS OLD GENTLEMAN WITH MORBID OBESITY, MJ/HYPOVENTILATION SYNDROME/ AND CHRONIC RESPIRATORY FAILURE, CONTINUES TO BE CONFUSED, HIS ENCEPHALOPATHY BEING PARTLY DUE TO CHRONIC ALCOHOLISM AND AGGRAVATED BY HYPERCAPNIA. MENTAL STATUS IS NOT MUCH IMPROVING. HE IS USING BIPAP AT NIGHT BUT DOES NOT USE DURING THE DAYTIME. HE WAS STARTED ON DIAMOX 250 MG B.I.D. SINCE YESTERDAY. VENOUS BLOOD GAS STUDY SHOWS MILD IMPROVEMENT IN PCO 2, BUT STILL REMAINS QUITE HIGH (73 ) Objective Data Labs CBC & Chem 7: 01/29/22 08:34 01/29/22 08:34 Labs: Laboratory Results - last 24 hr 01/29/22 01/29/22 01/29/22 08:34 08:34 08:40 WBC 11.2 H RBC 5.03 Hgb 13.1 L Hct 44.7 MCV 88.9 MCH 26.0 L MCHC 29.3 L RDW 17.2 H Plt Count 143 L MPV 11.5 Absolute Nucleated RBC 0.000 Nucleated RBC % (auto) 0.0 VBG pH 7.35 VBG pCO2 73 VBG pO2 47 VBG HCO3 41 H VBG O2 Saturation 68.0 VBG Base Excess 12.2 Sodium 139 Potassium 4.0 Chloride 92 L Carbon Dioxide 33 H Anion Gap 18 BUN 18 H Creatinine 1.11 Estim Creat Clear Calc 101.7 Estimated GFR > 60 Random Glucose 79 Calcium 9.5 Review of Systems Review of Systems Yes Unobtainable due to mental condition Physical Exam Vital Signs: Vital Signs: Last Vital Signs Temp 98.1 F 01/29/22 07:01 Pulse 89 01/29/22 07:01 Resp 18 01/29/22 07:01 BP 165/70 H 01/29/22 07:01 Pulse Ox 96 01/29/22 07:01 O2 Del Method 01/29/22 07:01 O2 Flow Rate 2.5 01/28/22 19:43 FiO2 40 01/29/22 07:01 Oxygen Flow Rate 40 01/29/22 04:00 BMI result Body Mass Index 39.0 Const: Other: HE IS EXTREMELY OBESE WITH A VERY ROUND FACE AT PRESENT HE IS SOMEWHAT OBTUNDED, DOES NOT CONVERSE MUCH. General: no acute distress, alert and awake HEENT: Head: Yes normal to inspection General nose exam: No nasal polyps present and No nasal discharge present Face and sinus: Yes sinuses nontender Mouth: oropharynx normal Throat: No posterior oropharynx normal (NARROW AND CROWDED, MALLAMPATI CLASS 4) Eyes: General: appearance normal, both eyes and all related structures Neck: Neck: Yes normal visual inspection, Yes no lymphadenopathy, Yes trachea midline, Yes no JVD and Yes other (NECK CIRCUMFERENCE 17 IN) Thyroid: Thyroid normal Chest: Chest palpation & inspection: normal inspection of the chest, normal palpation of entire chest wall and no tenderness Resp: Other: PERCUSSION NOTE IS NOT PERCEPTIBLE DUE TO EXTREMELY THICK CHEST WALL. BREATH SOUNDS ARE VERY DISTANT ON BOTH SIDES. NO WHEEZES OR CREPITATIONS ARE HEARD Auscultation: no crackles and no wheezes Cardio: Palpation: normal PMI Rate: regular rate Rhythm: regular rhythm Heart sounds: no gallops and no murmurs GI: Palpation (GI): Soft to palpation, nontender, No hepatosplenomegaly present, no masses and Other GI palpation findings present (ABDOMEN IS OBESE AND PROTUBERANT) Auscultation: normal bowel sounds Back/Spine/Pelvis: Thoracic/Lumbar Spine: thoracic and lumbar spine normal to inspection, thoraco-lumbar ROM limited and thoraco-lumbar spasm Skin: General skin exam: no rashes or lesions noted Neuro: General: No gait normal (PATIENT IS NON AMBULATORY,CONFINED TO BED AND CHAIR ) Cranial nerves: Yes CN's II-XII intact bilaterally Extrem: General: Yes normal to inspection, Yes no clubbing, cyanosis or edema and Yes no calf tenderness Psych: Other: CONFUSED AND NOT ABLE TO CONVERSE WELL. Procedures Date of Service Date of Service: 01/29/22 Assessment and Plan Assessment and plan (1) Morbid obesity: Status: Acute (2) MJ (obstructive sleep apnea): Status: Acute (3) Hypoventilation associated with obesity syndrome: Status: Acute (4) Encephalopathy chronic: Status: Acute Plan THIS GENTLEMAN'S CONFUSION IS NOT CLEARING UP. WHICH IS PARTLY DUE TO HIS CHRONIC ALCOHOL-RELATED ENCEPHALOPATHY AND PARTLY DUE TO HYPERCAPNIA. FROM PULMONARY POINT OF VIEW HIS MAINSTAY TREATMENT IS USE OF BIPAP, WHICH HE SHOULD USE AT LEAST FOR 8 HOURS EVERY NIGHT AND FOR A FEW HOURS DURING THE DAY ALSO. THE MORE HE USES THE BETTER HIS BLOOD GASES WILL BE. FOR THE TIME BEING HE HAS BEEN STARTED ON DIAMOX 250 MG B.I.D. AND OVERNIGHT IT HAS IMPROVED THE PCO 2/BICARB LEVEL. THIS PATIENT IS DEFINITELY NOT ABLE TO TAKE CARE OF HIMSELF AT HOME, AND WOULD PROBABLY NEED TO BE IN A LONG-TERM CARE FACILITY. Time Spent With Patient Time: Total time spent is greater than 50% in coordination of care (as documented) at patient's floor/unit and/or counseling patient: Progress Note: Quality Stroke Does the patient have a stroke diagnosis?: No
[2022-01-29 11:04] LABS: Ammonia 49 umol/L (13-55)
[2022-01-29 11:07] LABS: Alanine Aminotransferase 8 U/L (0-40); Alkaline Phosphatase 83 U/L (39-117); Aspartate Amino Transferase 19 U/L (5-37); Bilirubin Direct 1.1 mg/dL (0.0-0.5); Bilirubin Total 1.7 mg/dL (0.0-1.0); Total Protein 8.4 g/dL (6.5-8.0)
--- NOTE | 2022-01-29 11:12 | MHC.RECOVRN ---
Chart reviewed after consult placed to Addiction Medicine. Unable to meet with pt due to AMS. Spoke with pts brother, Compa, who is concerned about patients alcohol use. Brother reports patient drinks 5-10 shots Fireball daily as well as beer. Reports pt has never been to [facility] and had mentioned 4-6 months ago that pt was interested in abstinence. Brother reports + family hx AUD. Brother requesting to have meeting with MD, ACS, and pt when pts mental status improves. Will continue to follow.
--- NOTE | 2022-01-29 11:25 | P.PNIM_ITS ---
Subjective Subjective Date of Service: 01/29/22 Interval History: Seen and examined this morning Follow-up for hypercarbic respiratory failure, encephalopathy Patient observed sitting up in bed, shaking, not following all commands, words not making sense Unable to obtain ROS due to mental status Review of Systems Review of Systems: Yes Unobtainable due to mental status Neurologic Neurologic: Reports confusion Psychiatric Psychiatric: Reports confusion Physical Exam Vital Signs: Vital Signs: Last Vital Signs Temp 98.1 F 01/29/22 07:01 Pulse 89 01/29/22 07:01 Resp 18 01/29/22 07:01 BP 165/70 H 01/29/22 07:01 Pulse Ox 96 01/29/22 07:01 O2 Del Method 01/29/22 07:01 O2 Flow Rate 2.5 01/28/22 19:43 FiO2 40 01/29/22 07:01 Oxygen Flow Rate 40 01/29/22 04:00 BMI result Body Mass Index 39.0 Const: Other: observed sitting up in bed following some simple commands not answering questions appropriately, words not making sense General: confusion Nutritional Appearance: obese Orientation/consciousness: confusion Resp: Effort & Inspection: normal respiratory effort and no use of accessory muscles Auscultation: diminished lung sounds Cardio: Rate: regular rate Heart sounds: S1 normal heart sound present and S2 normal heart sound present GI: Inspection: No distended Palpation (GI): Soft to palpation and nontender Neuro: Other: awake but not following all commands, words difficult to understand General: confusion Extrem: Other: b/l LE skin changes Objective Data Active Medications Acetaminophen (Acetaminophen 325 Mg Tablet) 650 mg PO Q6H PRN PRN Reason: Pain, Mild (Pain Scale 1-3) Acetazolamide (Acetazolamide 250 Mg Tablet) 250 mg PO BID [facility] Last Admin: 01/29/22 10:15 Dose: 250 mg Documented By: KOTA Allopurinol (Allopurinol 100 Mg Tablet) 100 mg PO DAILY [facility] Last Admin: 01/29/22 10:16 Dose: 100 mg Documented By: KOTA Amlodipine Besylate (Amlodipine Besylate 5 Mg Tablet) 5 mg PO DAILY [facility]; Protocol Last Admin: 01/29/22 10:16 Dose: 5 mg Documented By: KOTA Apixaban (Apixaban 5 Mg Tablet) 5 mg PO BID [facility] Last Admin: 01/29/22 10:16 Dose: 5 mg Documented By: KOTA Divalproex Sodium (Divalproex Sodium 250 Mg Tablet.) 250 mg PO BID [facility] Last Admin: 01/29/22 10:14 Dose: 250 mg Documented By: KOTA Docusate Sodium (Docusate Sodium 100 Mg Capsule) 100 mg PO DAILY PRN PRN Reason: Constipation Fluoxetine HCl (Fluoxetine Hcl 20 Mg Capsule) 40 mg PO DAILY [facility] Last Admin: 01/29/22 10:15 Dose: 40 mg Documented By: KOTA Folic Acid (Folic Acid 1 Mg Tablet) 1 mg PO DAILY [facility] Last Admin: 01/29/22 10:16 Dose: 1 mg Documented By: KOTA Furosemide (Furosemide 20 Mg Tablet) 30 mg PO DAILY [facility]; Protocol Last Admin: 01/29/22 10:15 Dose: 30 mg Documented By: KOTA Lorazepam (Lorazepam 0.5 Mg Tablet) 0.5 mg PO BID PRN PRN Reason: anxiety Metoprolol Tartrate (Metoprolol Tartrate 25 Mg Tablet) 25 mg PO BID [facility]; Protocol Last Admin: 01/29/22 10:15 Dose: 25 mg Documented By: KOTA Naproxen (Naproxen 500 Mg Tablet) 500 mg PO BID PRN PRN Reason: for pain Omeprazole (Omeprazole 40 Mg Capsule.) 40 mg PO DAILY@0630 [facility] Last Admin: 01/29/22 05:54 Dose: Not Given Documented By: CARLOS ENRIQUE Non-Admin Reason: Patient Refused Ondansetron HCl (Ondansetron Hcl 4 Mg/2 Ml Vial) 4 mg IVPUSH Q8H PRN PRN Reason: Nausea and Vomiting Pharmacy Consult (Consult Rx Etoh Phenob Im/Po) 1 each MISCELLANE ONCE PRN; Protocol PRN Reason: Consult order Pharmacy Consult (Consult Rx Perform Med Rec) 1 each MISCELLANE ONCE PRN PRN Reason: Consult order Phenobarbital (Phenobarbital 15 Mg Tablet) 15 mg PO DAILY [facility] Stop: 01/30/22 09:01 Last Admin: 01/29/22 10:16 Dose: 15 mg Documented By: KOTA Sodium Chloride (0.9 % Sodium Chloride Flush 3 Ml Syringe) 3 ml IVFLUSH QSHIFT [facility] Last Admin: 01/29/22 10:14 Dose: 3 ml Documented By: KOTA Thiamine HCl (Thiamine Hcl 100 Mg Tablet) 100 mg PO DAILY [facility] Last Admin: 01/29/22 10:15 Dose: 100 mg Documented By: KOTA Labs CBC & Chem 7: 01/29/22 08:34 01/29/22 08:34 Labs: Laboratory Results - last 24 hr 01/29/22 01/29/22 01/29/22 08:34 08:34 08:40 MCV 88.9 MCH 26.0 L MCHC 29.3 L RDW 17.2 H Plt Count 143 L MPV 11.5 Absolute Nucleated RBC 0.000 Nucleated RBC % (auto) 0.0 VBG pH 7.35 VBG pCO2 73 VBG pO2 47 VBG HCO3 41 H VBG O2 Saturation 68.0 VBG Base Excess 12.2 Anion Gap 18 Estim Creat Clear Calc 101.7 Estimated GFR > 60 Random Glucose 79 Calcium 9.5 Total Bilirubin 1.7 H Direct Bilirubin 1.1 H AST 19 ALT 8 Alkaline Phosphatase 83 Ammonia Total Protein 8.4 H Albumin 4.0 01/29/22 10:47 MCV MCH MCHC RDW Plt Count MPV Absolute Nucleated RBC Nucleated RBC % (auto) VBG pH VBG pCO2 VBG pO2 VBG HCO3 VBG O2 Saturation VBG Base Excess Anion Gap Estim Creat Clear Calc Estimated GFR Random Glucose Calcium Total Bilirubin Direct Bilirubin AST ALT Alkaline Phosphatase Ammonia 49 Total Protein Albumin Assessment and Plan (1) Hypoventilation associated with obesity syndrome: Status: Acute (2) Acute alteration in mental status: Status: Acute (3) Chronic respiratory failure: Status: Acute (4) Alcohol withdrawal: Status: Acute (5) Morbid obesity: Status: Acute Plan This is a 61-year-old male with past medical history of alcohol abuse among others who presents to the hospital with lethargy and confusion, patient's family report that he has been drinking excessively every day and doing/eating very little # acute on chronic hypoxic respiratory failure # 2/2 Multifactorial, MJ, obesity hypoventilation syndrome,acute diastolic CHF Bicarb improving after starting diamox, but pt still confused cardiology input appreciated continue p.o. Lasix noncompliant with CPAP at home pulmonology input appreciated, BiPAP nighttime for 8 hours and 2 hours at time during the day o2 goal around 90% Might need supervised care at home , I spoke with his healthcare proxy his brother Ortiz who believe he has an alcoholism problem and does not use the machine at home. Continue to wean down oxygen as tolerated will start diamox Follow daily # metabolic encephalopathy acute on chronic pt more confused this morning, shaking episode, not making sense, difficult to understand words seems to have some degree of cognitive impairment at baseline, likely from ETOH; worsened with alcohol withdrawal and CO2 retention head CT from 01/24 negative - will repeat brain CT continue phenobarb taper Recheck LFTs, ammonia -neuro consult -NPO for now, speech eval # alcohol withdrawal on phenobarb taper thiamine folic acid supplement to get addiction team evaluation # history of AFib continue apixaban continue metoprolol HTN continue norcasc, metoprolol On depakote ? for mood. will continue depakote and prozac DVT prophylaxis-Apixaban attending - dr. rahman Given patient's acute CHF, encephalopathy patient will require ongoing hospital stay for further management and evaluation to prevent possible decompensation into hypoxic respiratory failure Quality Stroke Does the patient have a stroke diagnosis?: No VTE Prior VTE?: No VTE Risk Level:: Medical - moderate - high VTE Device Contraindication: Treatment Not Indicated VTE Drug Contraindication: N/A - Med Ordered
--- NOTE | 2022-01-29 12:45 | MHC.CM.PN ---
pt not ready for dc due to acute chf,,encepathlpathy, reparatory failure
[2022-01-29 13:08] VITALS: PULSE 76; RESP 24
[2022-01-29 16:00] VITALS: BP 161/76; PULSE 83; RESP 19; TEMP 37; O2SAT 100
[2022-01-29 18:59] VITALS: PULSE 82; RESP 19
[2022-01-29 20:00] VITALS: BP 124/91; PULSE 82; RESP 18; TEMP 37.1; O2SAT 90
[2022-01-30] VITALS (10 sets, daily range): BP systolic 116–151; BP diastolic 69–95; PULSE 77–96; RESP 13–20; TEMP 35.9–37.5; O2SAT 93–99
[2022-01-30] MEDS: 0.9 % Sodium Chloride Flush 3 ML SYRINGE IVFLUSH ×3 (08:39→23:44)
--- NOTE | 2022-01-30 11:18 | HO.PM.IMPN ---
Subjective Subjective Date of Service: 01/30/22 Interval History: cc: FTT, ams, hypoxia interval history:doesnt know why in hospital, difficulty staying awake Cardiovascular Cardiovascular: Reports no additional cardiovascular complaints Respiratory Respiratory: Reports no additional respiratory complaints Physical Exam Vital Signs: Vital Signs: Last Vital Signs Temp 97.3 F 01/30/22 07:46 Pulse 82 01/30/22 07:46 Resp 20 01/30/22 07:46 BP 148/86 H 01/30/22 07:46 Pulse Ox 97 01/30/22 07:46 O2 Del Method 01/30/22 07:46 O2 Flow Rate 5 01/29/22 20:00 FiO2 40 01/29/22 07:01 Oxygen Flow Rate 40 01/29/22 04:00 BMI result Body Mass Index 39.0 General: lethargic O X 2, no acute distress Resp: diminshed bilateral, no accessory muscles used CVS: S1,S2,RRR GI: soft, non tender, non distended Neuro: occasional clonic movement Psych: flat affect, impaired insight Objective Data Active Medications Acetaminophen (Acetaminophen 325 Mg Tablet) 650 mg PO Q6H PRN PRN Reason: Pain, Mild (Pain Scale 1-3) Acetazolamide (Acetazolamide 250 Mg Tablet) 250 mg PO BID [facility] Last Admin: 01/30/22 10:33 Dose: Not Given Documented By: KRIS Non-Admin Reason: NPO Allopurinol (Allopurinol 100 Mg Tablet) 100 mg PO DAILY [facility] Last Admin: 01/30/22 10:33 Dose: Not Given Documented By: KRIS Non-Admin Reason: NPO Amlodipine Besylate (Amlodipine Besylate 5 Mg Tablet) 5 mg PO DAILY [facility]; Protocol Last Admin: 01/30/22 10:33 Dose: Not Given Documented By: KRIS Non-Admin Reason: NPO Apixaban (Apixaban 5 Mg Tablet) 5 mg PO BID [facility] Last Admin: 01/30/22 10:33 Dose: Not Given Documented By: KRIS Non-Admin Reason: NPO Divalproex Sodium (Divalproex Sodium 250 Mg Tablet.Dr) 250 mg PO BID [facility] Last Admin: 01/30/22 10:33 Dose: Not Given Documented By: KRIS Non-Admin Reason: NPO Docusate Sodium (Docusate Sodium 100 Mg Capsule) 100 mg PO DAILY PRN PRN Reason: Constipation Fluoxetine HCl (Fluoxetine Hcl 20 Mg Capsule) 40 mg PO DAILY [facility] Last Admin: 01/30/22 10:33 Dose: Not Given Documented By: KRIS Non-Admin Reason: NPO Folic Acid (Folic Acid 1 Mg Tablet) 1 mg PO DAILY [facility] Last Admin: 01/30/22 10:34 Dose: Not Given Documented By: KRIS Non-Admin Reason: NPO Furosemide (Furosemide 20 Mg Tablet) 30 mg PO DAILY [facility]; Protocol Last Admin: 01/30/22 10:34 Dose: Not Given Documented By: KRIS Non-Admin Reason: NPO Metoprolol Tartrate (Metoprolol Tartrate 25 Mg Tablet) 25 mg PO BID [facility]; Protocol Last Admin: 01/30/22 10:34 Dose: Not Given Documented By: KRIS Non-Admin Reason: NPO Naproxen (Naproxen 500 Mg Tablet) 500 mg PO BID PRN PRN Reason: for pain Omeprazole (Omeprazole 40 Mg Capsule.Dr) 40 mg PO DAILY@0630 [facility] Last Admin: 01/30/22 05:50 Dose: Not Given Documented By: CAROLYNE Non-Admin Reason: NPO Ondansetron HCl (Ondansetron Hcl 4 Mg/2 Ml Vial) 4 mg IVPUSH Q8H PRN PRN Reason: Nausea and Vomiting Pharmacy Consult (Consult Rx Etoh Phenob Im/Po) 1 each MISCELLANE ONCE PRN; Protocol PRN Reason: Consult order Pharmacy Consult (Consult Rx Perform Med Rec) 1 each MISCELLANE ONCE PRN PRN Reason: Consult order Sodium Chloride (0.9 % Sodium Chloride Flush 3 Ml Syringe) 3 ml IVFLUSH QSHIFT [facility] Last Admin: 01/30/22 08:39 Dose: 3 ml Documented By: KRIS Thiamine HCl (Thiamine Hcl 100 Mg Tablet) 100 mg PO DAILY [facility] Last Admin: 01/30/22 10:34 Dose: Not Given Documented By: KRIS Non-Admin Reason: NPO Labs CBC & Chem 7: 01/29/22 08:34 01/29/22 08:34 Assessment and Plan (1) Hypoventilation associated with obesity syndrome: Status: Acute (2) Acute alteration in mental status: Status: Acute (3) Chronic respiratory failure: Status: Acute (4) Alcohol withdrawal: Status: Acute (5) Morbid obesity: Status: Acute Plan This is a 61-year-old male with past medical history of alcohol abuse among others who presents to the hospital with lethargy and confusion, patient's family report that he has been drinking excessively every day and doing/eating very little acute on chronic hypoxic and hypercapneic respiratory failure 2/2 Multifactorial, MJ, obesity hypoventilation syndrome,acute diastolic CHF Bicarb improving after starting diamox, but pt still confused cardiology input appreciated continue p.o. Lasix noncompliant with CPAP at home pulmonology input appreciated, BiPAP nighttime for 8 hours and 2 hours at time during the day o2 goal around 90% need supervised care at home , I spoke with his healthcare proxy his brother Ortiz who believe he has an alcoholism problem and does not use the machine at home. Continue to wean down oxygen as tolerated metabolic encephalopathy acute on chronic pt still confused this morning, shaking episode, not making sense, difficult to understand words seems to have some degree of cognitive impairment at baseline, likely from ETOH; worsened with alcohol withdrawal and CO2 retention head CT negative continue phenobarb taper -neuro consult -NPO for now, speech eval alcohol dependence withdrawal on phenobarb taper thiamine folic acid supplement to get addiction team evaluation chronic AFib continue apixaban continue metoprolol HTN continue norcasc, metoprolol On depakote ? for mood. will continue depakote and prozac DVT prophylaxis-Apixaban reason for continued hospitalization: mental status not at baseline, rquiring inpatient interventions with daily labs, close monitoring. Quality Stroke Does the patient have a stroke diagnosis?: No VTE Prior VTE?: No VTE Risk Level:: Medical - moderate - high VTE Device Contraindication: Treatment Not Indicated VTE Drug Contraindication: N/A - Med Ordered
--- NOTE | 2022-01-30 21:57 | HE.PHANOTE ---
Patient is NPO. Dr. Hines wants to switch Divalproex ER 250 mg BID PO to IV. Patient takes total daily dose of 500 mg. I recommended the conversion to switch patient to Valproic acid 125 mg IV Q6H. Flora salcedo and ordered was enter. Tawny Freeman, KobeD
[2022-01-30] MEDS: Valproic Acid (as Sodium Salt) 125 MG in Dextrose 5 % 50 ML 52.5 MG IV (23:44)
[2022-01-31] VITALS (7 sets, daily range): BP systolic 129–178; BP diastolic 73–95; PULSE 94–130; RESP 14–20; TEMP 36.4–38.1; O2SAT 78–98
[2022-01-31] MEDS: Valproic Acid (as Sodium Salt) 125 MG in Dextrose 5 % 50 ML 52.5 MG IV ×4 (05:16→23:19)
[2022-01-31 06:45] LABS: Hemoglobin 14.1 g/dl (14.0-18.0); Mean Corpuscular HGB Conc 30.7 g/dl (31.0-36.0); Mean Corpuscular Hemoglobin 26.4 pg (27.0-33.0); Mean Corpuscular Volume 86.1 fL (80.0-98.0); Mean Platelet Volume 11.3 fL (9.4-12.4); Platelet Count 145 X10*3/uL (160-400); Red Blood Count 5.34 X10*6/uL (4.60-5.80); White Blood Count 7.2 X10*3/uL (4.8-10.8)
[2022-01-31 06:47] LABS: Anion Gap 19 (12-20); Blood Urea Nitrogen 20 mg/dL (9-16); Calcium 9.1 mg/dL (8.4-10.2); Carbon Dioxide 27 mmol/L (22-29); Chloride 96 mmol/L (96-108); Creatinine Clr Calc Pharmacy 102.6; Estimated Glomerular Filt Rate > 60; Glucose Fasting 92 mg/dL (60-99); Potassium 4.4 mmol/L (3.3-5.1); Sodium 138 mmol/L (135-145)
[2022-01-31] MEDS: Furosemide 20 MG TABLET 30 MG PO (08:41)
[2022-01-31] MEDS: 0.9 % Sodium Chloride Flush 3 ML SYRINGE IVFLUSH ×2 (08:41→21:20)
[2022-01-31] MEDS: Apixaban 5 MG TABLET PO ×2 (08:42→21:18)
[2022-01-31] MEDS: FLUoxetine HCl 20 MG CAPSULE 40 MG PO (08:42)
[2022-01-31] MEDS: Thiamine HCL 100 MG TABLET PO (08:42)
[2022-01-31] MEDS: Metoprolol Tartrate 25 MG TABLET PO ×2 (08:42→21:19)
[2022-01-31] MEDS: allopurinoL 100 MG TABLET PO (08:42)
[2022-01-31] MEDS: amLODIPine Besylate 5 MG TABLET PO (08:42)
[2022-01-31] MEDS: Lactulose 20 GM/30 ML SOLUTION PO ×2 (08:42→21:18)
[2022-01-31] MEDS: Folic Acid 1 MG TABLET PO (08:43)
[2022-01-31] MEDS: acetaZOLAMIDE 250 MG TABLET PO ×2 (08:43→21:18)
--- NOTE | 2022-01-31 10:18 | P.PNIM_ITS ---
Subjective Subjective Date of Service: 01/31/22 Interval History: cc: FTT, ams, hypoxia interval history:doesnt know why in hospital, difficulty staying awake Cardiovascular Cardiovascular: Reports no additional cardiovascular complaints Respiratory Respiratory: Reports no additional respiratory complaints Physical Exam Vital Signs: Vital Signs: Last Vital Signs Temp 100.1 F 01/31/22 07:49 Pulse 130 H 01/31/22 07:49 Resp 20 01/31/22 07:49 BP 129/75 01/31/22 07:49 Pulse Ox 98 01/31/22 07:49 O2 Del Method 01/31/22 07:49 O2 Flow Rate 5 01/31/22 07:49 FiO2 40 01/29/22 07:01 Oxygen Flow Rate 40 01/29/22 04:00 BMI result Body Mass Index 39.0 General: lethargic O X 2, no acute distress Resp: diminshed bilateral, no accessory muscles used CVS: S1,S2,RRR GI: soft, non tender, non distended Neuro: occasional clonic movement Psych: flat affect, impaired insight Objective Data Active Medications Acetaminophen (Acetaminophen 325 Mg Tablet) 650 mg PO Q6H PRN PRN Reason: Pain, Mild (Pain Scale 1-3) Acetazolamide (Acetazolamide 250 Mg Tablet) 250 mg PO BID [facility] Last Admin: 01/31/22 08:43 Dose: 250 mg Documented By: KRIS Allopurinol (Allopurinol 100 Mg Tablet) 100 mg PO DAILY [facility] Last Admin: 01/31/22 08:42 Dose: 100 mg Documented By: KRIS Amlodipine Besylate (Amlodipine Besylate 5 Mg Tablet) 5 mg PO DAILY [facility]; Protocol Last Admin: 01/31/22 08:42 Dose: 5 mg Documented By: KRIS Apixaban (Apixaban 5 Mg Tablet) 5 mg PO BID [facility] Last Admin: 01/31/22 08:42 Dose: 5 mg Documented By: KRIS Docusate Sodium (Docusate Sodium 100 Mg Capsule) 100 mg PO DAILY PRN PRN Reason: Constipation Fluoxetine HCl (Fluoxetine Hcl 20 Mg Capsule) 40 mg PO DAILY [facility] Last Admin: 01/31/22 08:42 Dose: 40 mg Documented By: KRIS Folic Acid (Folic Acid 1 Mg Tablet) 1 mg PO DAILY [facility] Last Admin: 01/31/22 08:43 Dose: 1 mg Documented By: KRIS Furosemide (Furosemide 20 Mg Tablet) 30 mg PO DAILY [facility]; Protocol Last Admin: 01/31/22 08:41 Dose: 30 mg Documented By: KRIS Valproic Acid 125 mg/ Dextrose 51.25 mls @ 52.504 mls/hr IV Q6H [facility] Last Infusion: 01/31/22 06:31 Dose: 0 mls/hr Documented By: CAROLYNE Lactulose (Lactulose 20 Gm/30 Ml Solution) 20 gm PO BID [facility] Last Admin: 01/31/22 08:42 Dose: 20 gm Documented By: KRIS Metoprolol Tartrate (Metoprolol Tartrate 25 Mg Tablet) 25 mg PO BID [facility]; Protocol Last Admin: 01/31/22 08:42 Dose: 25 mg Documented By: KRIS Naproxen (Naproxen 500 Mg Tablet) 500 mg PO BID PRN PRN Reason: for pain Omeprazole (Omeprazole 40 Mg Capsule.Dr) 40 mg PO DAILY@0630 [facility] Last Admin: 01/31/22 06:27 Dose: Not Given Documented By: CAROLYNE Non-Admin Reason: NPO Ondansetron HCl (Ondansetron Hcl 4 Mg/2 Ml Vial) 4 mg IVPUSH Q8H PRN PRN Reason: Nausea and Vomiting Pharmacy Consult (Consult Rx Etoh Phenob Im/Po) 1 each MISCELLANE ONCE PRN; Protocol PRN Reason: Consult order Pharmacy Consult (Consult Rx Perform Med Rec) 1 each MISCELLANE ONCE PRN PRN Reason: Consult order Sodium Chloride (0.9 % Sodium Chloride Flush 3 Ml Syringe) 3 ml IVFLUSH QSHIFT [facility] Last Admin: 01/31/22 08:41 Dose: 3 ml Documented By: KRIS Thiamine HCl (Thiamine Hcl 100 Mg Tablet) 100 mg PO DAILY [facility] Last Admin: 01/31/22 08:42 Dose: 100 mg Documented By: KRIS Labs CBC & Chem 7: 01/31/22 06:17 01/31/22 06:17 Labs: Laboratory Results - last 24 hr 01/31/22 01/31/22 06:17 06:17 MCV 86.1 MCH 26.4 L MCHC 30.7 L RDW 17.0 H Plt Count 145 L MPV 11.3 Absolute Nucleated RBC 0.000 Nucleated RBC % (auto) 0.0 Anion Gap 19 Estim Creat Clear Calc 102.6 Estimated GFR > 60 Fasting Glucose 92 Calcium 9.1 Assessment and Plan (1) Hypoventilation associated with obesity syndrome: Status: Acute (2) Acute alteration in mental status: Status: Acute (3) Chronic respiratory failure: Status: Acute (4) Alcohol withdrawal: Status: Acute (5) Morbid obesity: Status: Acute Plan This is a 61-year-old male with past medical history of alcohol abuse among others who presents to the hospital with lethargy and confusion, patient's family report that he has been drinking excessively every day and doing/eating very little acute on chronic hypoxic and hypercapneic respiratory failure 2/2 Multifactorial, MJ, obesity hypoventilation syndrome,acute diastolic CHF Bicarb improving after starting diamox, but pt still confused cardiology input appreciated continue p.o. Lasix noncompliant with CPAP at home pulmonology input appreciated, BiPAP nighttime for 8 hours and 2 hours at time during the day o2 goal around 90% need supervised care at home , I spoke with his healthcare proxy his brother Ortiz who believe he has an alcoholism problem and does not use the machine at home. Continue to wean down oxygen as tolerated metabolic encephalopathy acute on chronic pt still confused this morning, shaking episode, not making sense, difficult to understand words, though slightly improved from last 2 days seems to have some degree of cognitive impairment at baseline, likely from ETOH; worsened with alcohol withdrawal and CO2 retention head CT negative -neuro consult -speech eval alcohol dependence withdrawal on phenobarb taper thiamine folic acid supplement to get addiction team evaluation chronic AFib continue apixaban continue metoprolol HTN continue norcasc, metoprolol On depakote ? for mood. will continue depakote and prozac DVT prophylaxis-Apixaban reason for continued hospitalization: mental status not at baseline, requiring inpatient interventions with daily labs, close monitoring. Quality Stroke Does the patient have a stroke diagnosis?: No VTE Prior VTE?: No VTE Risk Level:: Medical - moderate - high VTE Device Contraindication: Treatment Not Indicated VTE Drug Contraindication: N/A - Med Ordered
[2022-02-01 03:57] VITALS: BP 163/89; PULSE 89; RESP 20; TEMP 37.1; O2SAT 94
[2022-02-01] MEDS: Valproic Acid (as Sodium Salt) 125 MG in Dextrose 5 % 50 ML 52.5 MG IV (04:35)
[2022-02-01] MEDS: Omeprazole 40 MG CAPSULE.DR PO (05:38)
[2022-02-01 07:05] LABS: Anion Gap 15 (12-20); Blood Urea Nitrogen 22 mg/dL (9-16); Calcium 8.7 mg/dL (8.4-10.2); Carbon Dioxide 28 mmol/L (22-29); Chloride 98 mmol/L (96-108); Creatinine Clr Calc Pharmacy 100.8; Estimated Glomerular Filt Rate > 60; Glucose Fasting 88 mg/dL (60-99); Potassium 3.7 mmol/L (3.3-5.1); Sodium 137 mmol/L (135-145)
[2022-02-01 07:21] LABS: Hematocrit 45.5 % (42.0-52.0); Hemoglobin 13.7 g/dl (14.0-18.0); Mean Corpuscular HGB Conc 30.1 g/dl (31.0-36.0); Mean Corpuscular Hemoglobin 26.1 pg (27.0-33.0); Mean Corpuscular Volume 86.7 fL (80.0-98.0); Mean Platelet Volume 11.2 fL (9.4-12.4); NRBC Pct Auto 0.3 /100WBC (0.0-0.2); Platelet Count 149 X10*3/uL (160-400); Red Blood Count 5.25 X10*6/uL (4.60-5.80); Red Cell Distribution Width 17.2 % (11.0-16.0); White Blood Count 7.4 X10*3/uL (4.8-10.8)
[2022-02-01 07:50] VITALS: BP 155/87; PULSE 88; RESP 20; TEMP 36.7; O2SAT 99
[2022-02-01] MEDS: Apixaban 5 MG TABLET PO ×2 (08:31→21:48)
[2022-02-01] MEDS: FLUoxetine HCl 20 MG CAPSULE 40 MG PO (08:31)
[2022-02-01] MEDS: allopurinoL 100 MG TABLET PO (08:31)
[2022-02-01] MEDS: amLODIPine Besylate 5 MG TABLET PO (08:31)
[2022-02-01] MEDS: 0.9 % Sodium Chloride Flush 3 ML SYRINGE IVFLUSH ×3 (08:31→23:41)
[2022-02-01] MEDS: Metoprolol Tartrate 25 MG TABLET PO ×2 (08:31→21:48)
[2022-02-01] MEDS: Furosemide 20 MG TABLET 30 MG PO (08:31)
[2022-02-01] MEDS: Folic Acid 1 MG TABLET PO (08:31)
[2022-02-01] MEDS: acetaZOLAMIDE 250 MG TABLET PO ×2 (08:31→21:48)
[2022-02-01] MEDS: Thiamine HCL 100 MG TABLET PO (08:31)
--- NOTE | 2022-02-01 11:14 | P.PNIM_ITS ---
Subjective Subjective Date of Service: 02/01/22 Interval History: cc: FTT, ams, hypoxia interval history:doesnt know why in hospital, but more alert today Cardiovascular Cardiovascular: Reports no additional cardiovascular complaints Respiratory Respiratory: Reports no additional respiratory complaints Physical Exam Vital Signs: Vital Signs: Last Vital Signs Temp 98.0 F 02/01/22 07:50 Pulse 88 02/01/22 07:50 Resp 20 02/01/22 07:50 BP 155/87 H 02/01/22 07:50 Pulse Ox 99 02/01/22 07:50 O2 Del Method 02/01/22 07:50 O2 Flow Rate 40 02/01/22 07:50 FiO2 40 02/01/22 03:57 Oxygen Flow Rate 40 01/29/22 04:00 BMI result Body Mass Index 39.0 General: lethargic O X 2, no acute distress Resp: diminshed bilateral, no accessory muscles used CVS: S1,S2,RRR GI: soft, non tender, non distended Neuro: occasional clonic movement Psych: flat affect, impaired insight Objective Data Active Medications Acetaminophen (Acetaminophen 325 Mg Tablet) 650 mg PO Q6H PRN PRN Reason: Pain, Mild (Pain Scale 1-3) Acetazolamide (Acetazolamide 250 Mg Tablet) 250 mg PO BID [facility] Last Admin: 02/01/22 08:31 Dose: 250 mg Documented By: WHITNEY Allopurinol (Allopurinol 100 Mg Tablet) 100 mg PO DAILY [facility] Last Admin: 02/01/22 08:31 Dose: 100 mg Documented By: WHITNEY Amlodipine Besylate (Amlodipine Besylate 5 Mg Tablet) 5 mg PO DAILY [facility]; Protocol Last Admin: 02/01/22 08:31 Dose: 5 mg Documented By: WHITNEY Apixaban (Apixaban 5 Mg Tablet) 5 mg PO BID [facility] Last Admin: 02/01/22 08:31 Dose: 5 mg Documented By: WHITNEY Docusate Sodium (Docusate Sodium 100 Mg Capsule) 100 mg PO DAILY PRN PRN Reason: Constipation Fluoxetine HCl (Fluoxetine Hcl 20 Mg Capsule) 40 mg PO DAILY [facility] Last Admin: 02/01/22 08:31 Dose: 40 mg Documented By: WHITNEY Folic Acid (Folic Acid 1 Mg Tablet) 1 mg PO DAILY [facility] Last Admin: 02/01/22 08:31 Dose: 1 mg Documented By: WHITNEY Furosemide (Furosemide 20 Mg Tablet) 30 mg PO DAILY [facility]; Protocol Last Admin: 02/01/22 08:31 Dose: 30 mg Documented By: WHITNEY Valproic Acid 125 mg/ Dextrose 51.25 mls @ 52.504 mls/hr IV Q6H [facility] Last Infusion: 02/01/22 05:38 Dose: 0 mls/hr Documented By: GENIA Lactulose (Lactulose 20 Gm/30 Ml Solution) 20 gm PO BID [facility] Last Admin: 02/01/22 08:38 Dose: Not Given Documented By: WHITNEY Non-Admin Reason: Patient Refused Metoprolol Tartrate (Metoprolol Tartrate 25 Mg Tablet) 25 mg PO BID [facility]; Protocol Last Admin: 02/01/22 08:31 Dose: 25 mg Documented By: WHITNEY Naproxen (Naproxen 500 Mg Tablet) 500 mg PO BID PRN PRN Reason: for pain Omeprazole (Omeprazole 40 Mg Capsule.) 40 mg PO DAILY@0630 [facility] Last Admin: 02/01/22 05:38 Dose: 40 mg Documented By: GENIA Ondansetron HCl (Ondansetron Hcl 4 Mg/2 Ml Vial) 4 mg IVPUSH Q8H PRN PRN Reason: Nausea and Vomiting Pharmacy Consult (Consult Rx Etoh Phenob Im/Po) 1 each MISCELLANE ONCE PRN; Protocol PRN Reason: Consult order Pharmacy Consult (Consult Rx Perform Med Rec) 1 each MISCELLANE ONCE PRN PRN Reason: Consult order Sodium Chloride (0.9 % Sodium Chloride Flush 3 Ml Syringe) 3 ml IVFLUSH QSHIFT [facility] Last Admin: 02/01/22 08:31 Dose: 3 ml Documented By: WHITNEY Thiamine HCl (Thiamine Hcl 100 Mg Tablet) 100 mg PO DAILY [facility] Last Admin: 02/01/22 08:31 Dose: 100 mg Documented By: WHITNEY Labs CBC & Chem 7: 02/01/22 06:24 02/01/22 06:24 Labs: Laboratory Results - last 24 hr 02/01/22 02/01/22 06:24 06:24 MCV 86.7 MCH 26.1 L MCHC 30.1 L RDW 17.2 H Plt Count 149 L MPV 11.2 Absolute Nucleated RBC 0.020 H Nucleated RBC % (auto) 0.3 H Anion Gap 15 Estim Creat Clear Calc 100.8 Estimated GFR > 60 Fasting Glucose 88 Calcium 8.7 Assessment and Plan (1) Hypoventilation associated with obesity syndrome: Status: Acute (2) Acute alteration in mental status: Status: Acute (3) Chronic respiratory failure: Status: Acute (4) Alcohol withdrawal: Status: Acute (5) Morbid obesity: Status: Acute Plan This is a 61-year-old male with past medical history of alcohol abuse among others who presents to the hospital with lethargy and confusion, patient's family report that he has been drinking excessively every day and doing/eating very little acute on chronic hypoxic and hypercapneic respiratory failure 2/2 Multifactorial, MJ, obesity hypoventilation syndrome,acute diastolic CHF Bicarb improved after starting diamox, but pt still confused though better than previous cardiology input appreciated continue p.o. Lasix noncompliant with CPAP at home pulmonology input appreciated, BiPAP nighttime for 8 hours and 2 hours at time during the day o2 goal around 90% need supervised care Continue to wean down oxygen as tolerated metabolic encephalopathy acute on chronic improving, though not resolved seems to have some degree of cognitive impairment at baseline, likely from ETOH; worsened with alcohol withdrawal and CO2 retention head CT negative -speech eval alcohol dependence withdrawal on phenobarb taper completed thiamine folic acid supplement chronic AFib continue apixaban continue metoprolol HTN continue Norvasc, metoprolol On depakote ? for mood. will continue depakote and prozac DVT prophylaxis-Apixaban reason for continued hospitalization: mental status not at baseline, requiring inpatient interventions with daily labs, close monitoring. Quality Stroke Does the patient have a stroke diagnosis?: No VTE Prior VTE?: No VTE Risk Level:: Medical - moderate - high VTE Device Contraindication: Treatment Not Indicated VTE Drug Contraindication: N/A - Med Ordered
[2022-02-01 11:39] VITALS: BP 125/88; PULSE 80; RESP 20; TEMP 36.2; O2SAT 97
--- NOTE | 2022-02-01 12:57 | MHC.SL.SWA ---
Speech Pathologist Impression: Oropharyngeal dysphagia Risk of Aspiration Due to: Medically Fragile Dysphasia Diet Status: Upgrade Liquid Consistency and Strategies for Safe Swallow: Liquid Intake Recommendation: Teague Thick Liquid Intake Strategies: Small Sips No Straws Liquids by Teaspoon Only Solid Food Consistency: Dietary Recommendations: Pureed (NDD1) Additional Modifications to Solid Foods: Recommend UPGRADE from NPO, start on PUREED (NDD1) diet with NECTAR THICK liquids by TEASPOON ONLY, pills CRUSHED in PUREE. Pt must be awake and alert for PO intake, otherwise hold tray if pt is lethargic or w/ worsening mental status. Pt may be impulsive attempting to feed himself, w/ difficulty coordinating movements. Pt requires TOTAL ASSISTANCE feeding for safety, monitor for any overt s/s of aspiration and ensure aspiration precautions. Discontinue feeding if pt presents w/ any clinical signs of aspiration on this conservative recommendation, at which point a re-evaluation with ABORIGINAL LIAISON OFFICER would be indicated. Message sent to , RN, RD w/ this update. ABORIGINAL LIAISON OFFICER will continue to follow. Oral Medication Intake: Crushed with Puree Please contact the pharmacy regarding appropriate crushable or liquid drug formulations that are available whenever modified delivery is recommended. Compensatory Strategies and Precautions to be Taken for Safe Swallow: Sitting Upright (90 deg) No Straw Liquids from Spoon Small Bites and Sips Rate of Ingestion Change Oral Check Supervision While Eating and Drinking for Safe Swallow: Total Assistance (1:1) Swallowing Recommended Treatments: Compens. Strategy Educat. Recommendation for Speech: Inpatient Speech Therapy Comment: Frequency/Duration: ABORIGINAL LIAISON OFFICER will continue to follow during hospital stay. Date Range for Service Req: Timeline to reassess: Warble Saw Operator Clinican/Clinical Fellow: No Supervisory Statement: I have reviewed and agree with the student/clinical fellow's documentation: N/A Speech Language Pathologist: Herminia Dejesus M.A., CCC-ABORIGINAL LIAISON OFFICER
[2022-02-01 15:13] VITALS: BP 140/81; PULSE 84; RESP 16; TEMP 37.2; O2SAT 96
[2022-02-01 19:17] VITALS: BP 130/73; PULSE 90; RESP 16; TEMP 37.3; O2SAT 96
[2022-02-01] MEDS: Lactulose 20 GM/30 ML SOLUTION PO (21:48)
[2022-02-02] VITALS (10 sets, daily range): BP systolic 141–173; BP diastolic 86–95; PULSE 68–105; RESP 16–20; TEMP 35.9–36.6; O2SAT 94–100
[2022-02-02] MEDS: Omeprazole 40 MG CAPSULE.DR PO (05:50)
[2022-02-02 06:40] LABS: Hematocrit 43.5 % (42.0-52.0); Hemoglobin 12.9 g/dl (14.0-18.0); Mean Corpuscular HGB Conc 29.7 g/dl (31.0-36.0); Mean Corpuscular Hemoglobin 25.7 pg (27.0-33.0); Mean Corpuscular Volume 86.8 fL (80.0-98.0); Platelet Count 156 X10*3/uL (160-400); Red Blood Count 5.01 X10*6/uL (4.60-5.80); White Blood Count 8.6 X10*3/uL (4.8-10.8)
[2022-02-02 07:01] LABS: Anion Gap 17 (12-20); Blood Urea Nitrogen 23 mg/dL (9-16); Calcium 8.7 mg/dL (8.4-10.2); Carbon Dioxide 27 mmol/L (22-29); Chloride 97 mmol/L (96-108); Creatinine Clr Calc Pharmacy 101.7; Estimated Glomerular Filt Rate > 60; Glucose Fasting 87 mg/dL (60-99); Potassium 3.6 mmol/L (3.3-5.1); Sodium 137 mmol/L (135-145)
[2022-02-02] MEDS: allopurinoL 100 MG TABLET PO (09:12)
[2022-02-02] MEDS: Thiamine HCL 100 MG TABLET PO (09:12)
[2022-02-02] MEDS: 0.9 % Sodium Chloride Flush 3 ML SYRINGE IVFLUSH ×3 (09:12→20:08)
[2022-02-02] MEDS: Folic Acid 1 MG TABLET PO (09:12)
[2022-02-02] MEDS: Metoprolol Tartrate 25 MG TABLET PO ×2 (09:13→20:08)
[2022-02-02] MEDS: amLODIPine Besylate 5 MG TABLET PO (09:13)
[2022-02-02] MEDS: Apixaban 5 MG TABLET PO ×2 (09:13→20:08)
[2022-02-02] MEDS: acetaZOLAMIDE 250 MG TABLET PO (09:13)
[2022-02-02] MEDS: Furosemide 20 MG TABLET 30 MG PO (09:13)
[2022-02-02] MEDS: FLUoxetine HCl 20 MG CAPSULE 40 MG PO (09:13)
[2022-02-02] MEDS: predniSONE 20 MG TABLET 40 MG PO (10:21)
--- NOTE | 2022-02-02 10:46 | P.PNIM_ITS ---
Subjective Subjective Date of Service: 02/02/22 Interval History: cc: FTT, ams, hypoxia interval history:doesnt know why in hospital, metnal status continues to improved, now complaining of foot pain Cardiovascular Cardiovascular: Reports no additional cardiovascular complaints Respiratory Respiratory: Reports no additional respiratory complaints Physical Exam Vital Signs: Vital Signs: Last Vital Signs Temp 97.4 F 02/02/22 07:48 Pulse 96 02/02/22 09:43 Resp 19 02/02/22 07:48 BP 148/95 H 02/02/22 09:43 Pulse Ox 100 02/02/22 09:43 O2 Del Method 02/02/22 07:48 O2 Flow Rate 5 02/02/22 07:48 FiO2 40 02/01/22 03:57 Oxygen Flow Rate 40 01/29/22 04:00 BMI result Body Mass Index 39.0 General: lethargic O X 2, no acute distress Resp: diminshed bilateral, no accessory muscles used CVS: S1,S2,RRR GI: soft, non tender, non distended Neuro: occasional clonic movement Psych: flat affect, impaired insight Objective Data Active Medications Acetaminophen (Acetaminophen 325 Mg Tablet) 650 mg PO Q6H PRN PRN Reason: Pain, Mild (Pain Scale 1-3) Acetazolamide (Acetazolamide 250 Mg Tablet) 250 mg PO DAILY [facility] Allopurinol (Allopurinol 100 Mg Tablet) 100 mg PO DAILY [facility] Last Admin: 02/02/22 09:12 Dose: 100 mg Documented By: WHITNEY Amlodipine Besylate (Amlodipine Besylate 5 Mg Tablet) 5 mg PO DAILY [facility]; Protocol Last Admin: 02/02/22 09:13 Dose: 5 mg Documented By: WHITNEY Apixaban (Apixaban 5 Mg Tablet) 5 mg PO BID [facility] Last Admin: 02/02/22 09:13 Dose: 5 mg Documented By: WHITNEY Docusate Sodium (Docusate Sodium 100 Mg Capsule) 100 mg PO DAILY PRN PRN Reason: Constipation Fluoxetine HCl (Fluoxetine Hcl 20 Mg Capsule) 40 mg PO DAILY [facility] Last Admin: 02/02/22 09:13 Dose: 40 mg Documented By: WHITNEY Folic Acid (Folic Acid 1 Mg Tablet) 1 mg PO DAILY [facility] Last Admin: 02/02/22 09:12 Dose: 1 mg Documented By: WHITNEY Furosemide (Furosemide 20 Mg Tablet) 30 mg PO DAILY [facility]; Protocol Last Admin: 02/02/22 09:13 Dose: 30 mg Documented By: WHITNEY Lactulose (Lactulose 20 Gm/30 Ml Solution) 20 gm PO BID [facility] Last Admin: 02/02/22 09:14 Dose: Not Given Documented By: WHITNEY Non-Admin Reason: Patient Refused Metoprolol Tartrate (Metoprolol Tartrate 25 Mg Tablet) 25 mg PO BID [facility]; Pr otocol Last Admin: 02/02/22 09:13 Dose: 25 mg Documented By: WHITNEY Naproxen (Naproxen 500 Mg Tablet) 500 mg PO BID PRN PRN Reason: for pain Omeprazole (Omeprazole 40 Mg Capsule.Dr) 40 mg PO DAILY@0630 [facility] Last Admin: 02/02/22 05:50 Dose: 40 mg Documented By: KELSEY Ondansetron HCl (Ondansetron Hcl 4 Mg/2 Ml Vial) 4 mg IVPUSH Q8H PRN PRN Reason: Nausea and Vomiting Pharmacy Consult (Consult Rx Etoh Phenob Im/Po) 1 each MISCELLANE ONCE PRN; Protocol PRN Reason: Consult order Pharmacy Consult (Consult Rx Perform Med Rec) 1 each MISCELLANE ONCE PRN PRN Reason: Consult order Prednisone (Prednisone 20 Mg Tablet) 40 mg PO DAILY [facility] Last Admin: 02/02/22 10:21 Dose: 40 mg Documented By: WHITNEY Sodium Chloride (0.9 % Sodium Chloride Flush 3 Ml Syringe) 3 ml IVFLUSH QSHIFT ON [facility] Last Admin: 02/02/22 09:12 Dose: 3 ml Documented By: WHITNEY Thiamine HCl (Thiamine Hcl 100 Mg Tablet) 100 mg PO DAILY [facility] Last Admin: 02/02/22 09:12 Dose: 100 mg Documented By: WHITNEY Labs CBC & Chem 7: 02/02/22 06:14 02/02/22 06:14 Labs: Laboratory Results - last 24 hr 02/02/22 02/02/22 06:14 06:14 MCV 86.8 MCH 25.7 L MCHC 29.7 L RDW 17.0 H Plt Count 156 L MPV 11.0 Absolute Nucleated RBC 0.000 Nucleated RBC % (auto) 0.0 Anion Gap 17 Estim Creat Clear Calc 101.7 Estimated GFR > 60 Fasting Glucose 87 Calcium 8.7 Assessment and Plan (1) Hypoventilation associated with obesity syndrome: Status: Acute (2) Acute alteration in mental status: Status: Acute (3) Chronic respiratory failure: Status: Acute (4) Alcohol withdrawal: Status: Acute (5) Morbid obesity: Status: Acute Plan This is a 61-year-old male with past medical history of alcohol abuse among others who presents to the hospital with lethargy and confusion, patient's family report that he has been drinking excessively every day and doing/eating very little acute on chronic hypoxic and hypercapneic respiratory failure 2/2 Multifactorial, MJ, obesity hypoventilation syndrome,acute diastolic CHF Bicarb improved after starting diamox (will decrase to 250mg daily), confusion continues to improve cardiology input appreciated continue p.o. Lasix noncompliant with CPAP at home pulmonology input appreciated, BiPAP nighttime for 8 hours and 2 hours at time during the day o2 goal around 90% need supervised care Continue to wean down oxygen as tolerated foot pain presumed gout flare will empirically treat with prednisone 40mg daily metabolic encephalopathy acute on chronic much improved seems to have some degree of cognitive impairment at baseline, likely from ETOH; worsened with alcohol withdrawal and CO2 retention head CT negative -speech appreciated pureed with nectar thick liquids alcohol dependence withdrawal on phenobarb taper completed thiamine folic acid supplement chronic AFib continue apixaban continue metoprolol HTN continue Norvasc, metoprolol On depakote ? for mood. continue depakote and prozac DVT prophylaxis-Apixaban reason for continued hospitalization: difficulty with pt due to foot pain Quality Stroke Does the patient have a stroke diagnosis?: No VTE Prior VTE?: No VTE Risk Level:: Medical - moderate - high VTE Device Contraindication: Treatment Not Indicated VTE Drug Contraindication: N/A - Med Ordered
--- NOTE | 2022-02-02 13:46 | MHC.RECOVRN ---
Met with pt in 472 to discuss alcohol use. Pt sitting in bed, awake, alert, guarded but engages in conversation. Pt reports drinking a 6 pack daily as well as Fireball or [employer] 7. When asked to quantify, pt states a case, maybe 48 or 200 nips. Pt reports hx attempting to abstain, when asked longest period in recovery pt states This. Pt does report interest in reducing or abstaining, however, declines referrals/supports/medication. States I'm not interested. Pt declines to discuss further. Provided with t/w contact information if needed. Discussed with CM.
[2022-02-02] MEDS: Lactulose 20 GM/30 ML SOLUTION PO (20:08)
[2022-02-03] VITALS (10 sets, daily range): BP systolic 121–186; BP diastolic 76–102; PULSE 71–95; RESP 14–22; TEMP 35.9–36.7; O2SAT 90–99
[2022-02-03] MEDS: Omeprazole 40 MG CAPSULE.DR PO (06:13)
[2022-02-03 06:14] LABS: Hematocrit 45.7 % (42.0-52.0); Hemoglobin 13.7 g/dl (14.0-18.0); Mean Corpuscular Hemoglobin 25.8 pg (27.0-33.0); Mean Corpuscular Volume 86.2 fL (80.0-98.0); Mean Platelet Volume 11.3 fL (9.4-12.4); Platelet Count 176 X10*3/uL (160-400); Red Cell Distribution Width 16.5 % (11.0-16.0); White Blood Count 8.5 X10*3/uL (4.8-10.8)
[2022-02-03 07:11] LABS: Anion Gap 16 (12-20); Blood Urea Nitrogen 24 mg/dL (9-16); Carbon Dioxide 29 mmol/L (22-29); Chloride 97 mmol/L (96-108); Estimated Glomerular Filt Rate > 60; Glucose Fasting 113 mg/dL (60-99); Potassium 3.9 mmol/L (3.3-5.1); Sodium 138 mmol/L (135-145)
[2022-02-03 07:21] LABS: Calcium 9.3 mg/dL (8.4-10.2)
[2022-02-03] MEDS: 0.9 % Sodium Chloride Flush 3 ML SYRINGE IVFLUSH ×3 (08:10→20:06)
[2022-02-03] MEDS: Thiamine HCL 100 MG TABLET PO (08:11)
[2022-02-03] MEDS: amLODIPine Besylate 5 MG TABLET PO (08:11)
[2022-02-03] MEDS: acetaZOLAMIDE 250 MG TABLET PO (08:11)
[2022-02-03] MEDS: Folic Acid 1 MG TABLET PO (08:11)
[2022-02-03] MEDS: Apixaban 5 MG TABLET PO ×2 (08:11→20:05)
[2022-02-03] MEDS: Metoprolol Tartrate 25 MG TABLET PO ×2 (08:11→20:05)
[2022-02-03] MEDS: predniSONE 20 MG TABLET 40 MG PO (08:11)
[2022-02-03] MEDS: allopurinoL 100 MG TABLET PO (08:11)
[2022-02-03] MEDS: FLUoxetine HCl 20 MG CAPSULE 40 MG PO (08:11)
[2022-02-03] MEDS: Furosemide 20 MG TABLET 30 MG PO (08:12)
--- NOTE | 2022-02-03 11:28 | PM.DS ---
DS: Providers Provider Date of Service: 02/03/22 Date of admission: 01/24/22 23:13 Primary care physician: EVELYN Mckoy Consults: 01/25/22 07:11 Consult to Cardiology Routine Consulting Provider: Liborio Smith Reason for consultation: CHF? Has provider been notified: No 01/26/22 10:02 Consult to Pulmonology Routine Consulting Provider: Solo Aviles Reason for consultation: Hypoxia, lethargy, MJ/OHS, Nacrolepsy? 01/27/22 12:26 Addiction Medicine Routine Consulting Provider: Stella Mims Reason for consultation: Alcoholism, affecting his overall wellness.Plz contact his HCP brother Ortiz 01/29/22 10:46 Consult to Neurology Routine Consulting Provider: [facility] Reason for consultation: encephalopathy, episode of jerking/shaking Has provider been notified: No DS: Diagnosis Discharge Diagnosis (1) Hypoventilation associated with obesity syndrome: Status: Acute (2) Acute alteration in mental status: Status: Acute (3) Chronic respiratory failure: Status: Acute (4) Alcohol withdrawal: Status: Acute (5) Morbid obesity: Status: Acute DS: Summary Hospital Course Hospital Course: from initial hpi: Chief Complaint: Drinking excessively This is a 61-year-old male with past medical history of CHF, alcohol abuse, morbid obesity, AFib on Eliquis, was se, chronic back pain, diabetes, obesity hypoventilation syndrome, chronic respiratory failure presents to the hospital after family called EMS due to patient drinking excessively for the past few days, not eating and not taking care of himself.? On arrival of EMS patient was found to be hypoxic in the mid 80s, he is currently on BiPAP, lethargic, not answering questions.? Unclear patient experiences seizure at home as he is postictal and encephalopathic.? On arrival to the ED patient hemodynamically stable with no significant abnormal vitals Labs are significant for WBC count of 7.4, hemoglobin of 13.9, hematocrit 46.9, PT of 20.2, INR of 1.7, pH of 7.4, CO2 of 59, creatinine of 1.47 with a baseline of 0.9, BNP of 1013 UA negative for acute infection, UDS negative, level negative Chest x-ray shows no acute pulmonary process, head CT negative Patient placed on CPAP/with backup rate of BiPAP due to his history of MJ, as well as OHS hospital course: patient was admitted for acute on chronic hypoxic and hypercapnic respiratory failure complicated by metabolic encephalopathy. This was due to obstructive sleep apnea and obesity hypoventilation syndrome, underlying alcohol dementia, as well as acute on chronic diastolic CHF complicated by noncompliance with cpap. Patient was given Lasix and Diamox. He was put on BiPAP. He was seen by Pulmonary recommended at least 8 hours at nighttime of BiPAP and 2 hours during the day. His mental status slowly improved he is now alert and oriented to place and person, he is confused time and has some poor insight. But otherwise close to baseline. due to his decreased mental status he is seen by speech therapy for dysphagia who recommended NDD3 solids with thin liquids. For his alcohol dependence with withdrawal he completed phenobarbital taper and is withdrawal has resolved. For his chronic atrial fibrillation was continued on apixaban and metoprolol. For his hypertension he was continued on amlodipine and metoprolol. For his mood disorder he was continue on Depakote Prozac. Patient is now close to baseline will be discharged to [facility] facility. Time Spent with Patient Time attestation: Total time spent providing and/or coordinating discharge services: Discharge coordination time: Greater than 30 minutes Quality: Safe Use of Opioids Does Pt have an Active Cancer Diagnosis on the Problem List?: No Quality: Stroke Does the patient have a stroke diagnosis?: No Physical Exam Vital Signs: Vital Signs: Last Vital Signs Temp 98 F 02/03/22 07:44 Pulse 88 02/03/22 09:05 Resp 22 H 02/03/22 07:44 BP 146/76 H 02/03/22 09:05 Pulse Ox 98 02/03/22 09:05 O2 Del Method 02/03/22 07:44 O2 Flow Rate 5 02/02/22 15:27 FiO2 40 02/01/22 03:57 Oxygen Flow Rate 40 01/29/22 04:00 BMI result Body Mass Index 39.0 General: alert O X 2, no acute distress Resp: diminshed bilateral, no accessory muscles used CVS: S1,S2,RRR GI: soft, non tender, non distended Neuro: occasional clonic movement Psych: flat affect, impaired insight DS: Data Data Completed and Pending Completed studies during hospitalization [Text1]: Procedures Assistance with Respiratory Ventilation, Less than 24 Consecutive Hours, Continuous Positive Airway Pressure (08/07/21) Bypass Trachea to Cutaneous with Tracheostomy Device, Percutaneous Approach (05/30/20) Change Tracheostomy Device in Trachea, External Approach (05/30/20) Detoxification Services for Substance Abuse Treatment (08/07/21) Drainage of Left Lower Lung Lobe, Via Natural or Artificial Opening Endoscopic, Diagnostic (05/30/20) Insertion of Endotracheal Airway into Trachea, Via Natural or Artificial Opening (05/30/20) Insertion of Feeding Device into Stomach, Percutaneous Approach (05/30/20) Insertion of Infusion Device into Right Atrium, Percutaneous Approach (05/30/20) Insertion of Infusion Device into Superior Vena Cava, Percutaneous Approach (05/30/20) Performance of Cardiac Output, Single, Manual (05/30/20) Performance of Urinary Filtration, Intermittent, Less than 6 Hours Per Day (05/30/20) Respiratory Ventilation, Greater than 96 Consecutive Hours (05/30/20) Ultrasonography of Superior Vena Cava, Guidance (05/30/20) Labs on day of discharge: Laboratory Results - last 24 hr 02/03/22 02/03/22 05:50 05:50 WBC 8.5 RBC 5.30 Hgb 13.7 L Hct 45.7 MCV 86.2 MCH 25.8 L MCHC 30.0 L RDW 16.5 H Plt Count 176 MPV 11.3 Absolute Nucleated RBC 0.000 Nucleated RBC % (auto) 0.0 Sodium 138 Potassium 3.9 Chloride 97 Carbon Dioxide 29 Anion Gap 16 BUN 24 H Creatinine 1.14 Estim Creat Clear Calc 99.0 Estimated GFR > 60 Fasting Glucose 113 H Calcium 9.3 D Discharge Plan Discharge Patient Disposition: Xfer SNF Discharge Diagnosis: hypercapnea Referrals: Ortiz Deluca, ONCOLOGY PATIENT NAVIGATOR-BC [Primary Care Provider] - 1 Week Discharge Medications: New acetazolamide 250 mg Tablet 250 mg PO DAILY Qty: 0 0RF folic acid 1 mg Tablet 1 mg PO DAILY Qty: 0 0RF lactulose 20 gram/30 mL Solution 20 g PO BID Qty: 0 0RF thiamine mononitrate (vit B1) 100 mg Tablet 100 mg PO DAILY Qty: 0 0RF Continued (DME) blood-glucose meter [FreeStyle Lite Meter] Kit See Rx Instructions .ROUTE .MEDSUPPLY Qty: 1 0RF Rx Instructions: check sugar twice a day (DME) lancets [FreeStyle Lancets] 28 gauge misc See Rx Instructions .ROUTE .MEDSUPPLY Qty: 100 2RF Rx Instructions: check sugar twice a day omeprazole 20 mg capsule,delayed release(DR/EC) 40 mg PO DAILY@0630 Qty: 60 3RF fluoxetine 40 mg capsule 40 mg PO DAILY Qty: 90 0RF allopurinol 100 mg tablet 100 mg PO DAILY 90 Days Qty: 90 1RF metformin 850 mg tablet 850 mg PO DAILY Qty: 90 1RF furosemide 20 mg tablet 30 mg PO DAILY 30 Days Qty: 45 1RF Eliquis 5 mg tablet 5 mg PO BID Qty: 60 2RF cyclobenzaprine 10 mg tablet 10 mg PO BEDTIME PRN (Reason: muscle spasm) 30 Days Qty: 60 0RF divalproex 250 mg tablet,delayed release (DR/EC) 250 mg PO BID Qty: 60 2RF lorazepam 0.5 mg tablet 0.5 mg PO BID PRN (Reason: anxiety) 30 Days Qty: 60 0RF amlodipine 5 mg tablet 5 mg PO DAILY Qty: 30 2RF metoprolol tartrate 25 mg tablet 25 mg PO BID Qty: 60 2RF albuterol sulfate 90 mcg/actuation HFA aerosol inhaler 2 puff inhalation QID Discontinued naproxen 500 mg tablet 500 mg PO BID PRN (Reason: for pain) Qty: 60 3RF Discharge Orders: Discharge Order (Routine); Ordered 02/03/22 Ordered By: Garth Garcia Diet: NDD3 solids, thin liquid Activity on Discharge: As tolerated Stand Alone Forms: Patient Portal Discharge page Care Plan Goals: manage JM, OHS Health Concerns: OHS/MJ poor compliance Plan of Treatment: BIPAP at night atleast 8 hours fio2 40, 11/04 Assessment: see above
--- NOTE | 2022-02-03 11:55 | MHC.SL.SWA ---
Speech Pathologist Impression: Oropharyngeal dysphagia Risk of Aspiration Due to: Medically Fragile Dysphasia Diet Status: UPGRADE Liquid Consistency and Strategies for Safe Swallow: Liquid Intake Recommendation: Thin Liquid Intake Strategies: Small Sips No Straws Solid Food Consistency: Dietary Recommendations: Chopped/Advanced (NDD3) Additional Modifications to Solid Foods: Total supervision during meals to monitor tolerance and provide reminders for aspiration precautions Oral Medication Intake: Crushed with Puree Please contact the pharmacy regarding appropriate crushable or liquid drug formulations that are available whenever modified delivery is recommended. Compensatory Strategies and Precautions to be Taken for Safe Swallow: Sitting Upright (90 deg) No Straw Small Bites and Sips Alternate Liquids/Solids Rate of Ingestion Change Oral Check Supervision While Eating and Drinking for Safe Swallow: Total Supervision (1:1) Swallowing Recommended Treatments: Compens. Strategy Educat. Recommendation for Speech: Continue ST at next level of care d/t hx of dysphagia Beamer Operator Clinican/Clinical Fellow: Yes: Merissa Calderón M.A., CF-GRADES 9 [phone] TUTOR Supervisory Statement: I have reviewed and agree with the student/clinical fellow's documentation: Yes Speech Language Pathologist: Herminia Dejesus M.A., CCC-GRADES 9 12 TUTOR
[2022-02-03 14:48] LABS: IDNOW Serial# 16C4AD1C
[2022-02-03 14:49] LABS: COVID-19 Test Negative (Negative)
--- NOTE | 2022-02-03 15:38 | MHC.CM.PN ---
Patient is ready for discharge. Yesterday 02/02/22, [facility] for [facility]. They have informed T/W that an anticipated discharge has been Pushed to tomorrow. Waiting on confirmation of bed offer for tomorrow.
--- NOTE | 2022-02-03 15:54 | HO.PM.IMPN ---
Subjective Subjective Date of Service: 02/03/22 Interval History: cc: FTT, ams, hypoxia interval history: mental status continues to improve, foot pain resolved Cardiovascular Cardiovascular: Reports no additional cardiovascular complaints Respiratory Respiratory: Reports no additional respiratory complaints Physical Exam Vital Signs: Vital Signs: Last Vital Signs Temp 98.1 F 02/03/22 15:08 Pulse 85 02/03/22 15:08 Resp 16 02/03/22 15:08 BP 186/102 H 02/03/22 15:08 Pulse Ox 90 L 02/03/22 15:08 O2 Del Method 02/03/22 15:08 O2 Flow Rate 5 02/03/22 11:43 FiO2 40 02/01/22 03:57 Oxygen Flow Rate 40 01/29/22 04:00 BMI result Body Mass Index 39.0 General: alert O X 2, no acute distress Resp: diminshed bilateral, no accessory muscles used CVS: S1,S2,RRR GI: soft, non tender, non distended Neuro: occasional clonic movement Psych: flat affect, impaired insight Objective Data Active Medications Acetaminophen (Acetaminophen 325 Mg Tablet) 650 mg PO Q6H PRN PRN Reason: Pain, Mild (Pain Scale 1-3) Acetazolamide (Acetazolamide 250 Mg Tablet) 250 mg PO DAILY [facility] Last Admin: 02/03/22 08:11 Dose: 250 mg Documented By: WHITNEY Allopurinol (Allopurinol 100 Mg Tablet) 100 mg PO DAILY [facility] Last Admin: 02/03/22 08:11 Dose: 100 mg Documented By: WHITNEY Amlodipine Besylate (Amlodipine Besylate 5 Mg Tablet) 5 mg PO DAILY [facility]; Protocol Last Admin: 02/03/22 08:11 Dose: 5 mg Documented By: WHITNEY Apixaban (Apixaban 5 Mg Tablet) 5 mg PO BID [facility] Last Admin: 02/03/22 08:11 Dose: 5 mg Documented By: WHITNEY Docusate Sodium (Docusate Sodium 100 Mg Capsule) 100 mg PO DAILY PRN PRN Reason: Constipation Fluoxetine HCl (Fluoxetine Hcl 20 Mg Capsule) 40 mg PO DAILY [facility] Last Admin: 02/03/22 08:11 Dose: 40 mg Documented By: WHITNEY Folic Acid (Folic Acid 1 Mg Tablet) 1 mg PO DAILY [facility] Last Admin: 02/03/22 08:11 Dose: 1 mg Documented By: WHITNEY Furosemide (Furosemide 20 Mg Tablet) 30 mg PO DAILY [facility]; Protocol Last Admin: 02/03/22 08:12 Dose: 30 mg Documented By: WHITNEY Lactulose (Lactulose 20 Gm/30 Ml Solution) 20 gm PO BID [facility] Last Admin: 02/03/22 08:12 Dose: Not Given Documented By: WHITNEY Non-Admin Reason: Patient Refused Metoprolol Tartrate (Metoprolol Tartrate 25 Mg Tablet) 25 mg PO BID [facility]; Protocol Last Admin: 02/03/22 08:11 Dose: 25 mg Documented By: WHITNEY Naproxen (Naproxen 500 Mg Tablet) 500 mg PO BID PRN PRN Reason: for pain Omeprazole (Omeprazole 40 Mg Capsule.Dr) 40 mg PO DAILY@0630 [facility] Last Admin: 02/03/22 06:13 Dose: 40 mg Documented By: CHAI Ondansetron HCl (Ondansetron Hcl 4 Mg/2 Ml Vial) 4 mg IVPUSH Q8H PRN PRN Reason: Nausea and Vomiting Pharmacy Consult (Consult Rx Etoh Phenob Im/Po) 1 each MISCELLANE ONCE PRN; Protocol PRN Reason: Consult order Pharmacy Consult (Consult Rx Perform Med Rec) 1 each MISCELLANE ONCE PRN PRN Reason: Consult order Prednisone (Prednisone 20 Mg Tablet) 40 mg PO DAILY [facility] Last Admin: 02/03/22 08:11 Dose: 40 mg Documented By: WHITNEY Sodium Chloride (0.9 % Sodium Chloride Flush 3 Ml Syringe) 3 ml IVFLUSH QSHIFT [facility] Last Admin: 02/03/22 08:10 Dose: 3 ml Documented By: WHITNEY Thiamine HCl (Thiamine Hcl 100 Mg Tablet) 100 mg PO DAILY [facility] Last Admin: 02/03/22 08:11 Dose: 100 mg Documented By: WHITNEY Labs CBC & Chem 7: 02/03/22 05:50 02/03/22 05:50 Labs: Laboratory Results - last 24 hr 02/03/22 02/03/22 02/03/22 05:50 05:50 14:07 MCV 86.2 MCH 25.8 L MCHC 30.0 L RDW 16.5 H Plt Count 176 MPV 11.3 Absolute Nucleated RBC 0.000 Nucleated RBC % (auto) 0.0 Anion Gap 16 Estim Creat Clear Calc 99.0 Estimated GFR > 60 Fasting Glucose 113 H Calcium 9.3 D COVID-19 ([facility]INDEN) Negative COVID-19 Clin Com See Note Assessment and Plan (1) Hypoventilation associated with obesity syndrome: Status: Acute (2) Acute alteration in mental status: Status: Acute (3) Chronic respiratory failure: Status: Acute (4) Alcohol withdrawal: Status: Acute (5) Morbid obesity: Status: Acute Plan This is a 61-year-old male with past medical history of alcohol abuse among others who presents to the hospital with lethargy and confusion, patient's family report that he has been drinking excessively every day and doing/eating very little acute on chronic hypoxic and hypercapneic respiratory failure 2/2 Multifactorial, MJ, obesity hypoventilation syndrome,acute diastolic CHF Bicarb improved after starting diamox (will decrase to 250mg daily), confusion continues to improve cardiology input appreciated continue p.o. Lasix noncompliant with CPAP at home pulmonology input appreciated, BiPAP nighttime for 8 hours and 2 hours at time during the day o2 goal around 90% need supervised care Continue to wean down oxygen as tolerated foot pain presumed gout flare will empirically treating with prednisone 40mg daily metabolic encephalopathy acute on chronic much improved seems to have some degree of cognitive impairment at baseline, likely from ETOH; worsened with alcohol withdrawal and CO2 retention head CT negative -speech appreciated advanced to NDD3 solids with thin liquids alcohol dependence withdrawal phenobarb taper completed thiamine folic acid supplement chronic AFib continue apixaban continue metoprolol HTN continue Norvasc, metoprolol On depakote ? for mood. continue depakote and prozac DVT prophylaxis-Apixaban reason for continued hospitalization: awaiting bed at [facility] Quality Stroke Does the patient have a stroke diagnosis?: No VTE Prior VTE?: No VTE Risk Level:: Medical - moderate - high VTE Device Contraindication: Treatment Not Indicated VTE Drug Contraindication: N/A - Med Ordered
[2022-02-03] MEDS: Lactulose 20 GM/30 ML SOLUTION PO (20:05)
[2022-02-04] VITALS (9 sets, daily range): BP systolic 144–169; BP diastolic 68–102; PULSE 78–126; RESP 18–20; TEMP 36.1–37.1; O2SAT 95–99
[2022-02-04 05:30] LABS: COVID-19 Test Negative (Negative)
[2022-02-04] MEDS: Omeprazole 40 MG CAPSULE.DR PO (05:55)
[2022-02-04] MEDS: allopurinoL 100 MG TABLET PO (09:27)
[2022-02-04] MEDS: predniSONE 20 MG TABLET 40 MG PO (09:27)
[2022-02-04] MEDS: acetaZOLAMIDE 250 MG TABLET PO (09:27)
[2022-02-04] MEDS: Thiamine HCL 100 MG TABLET PO (09:27)
[2022-02-04] MEDS: Metoprolol Tartrate 25 MG TABLET PO ×2 (09:27→19:52)
[2022-02-04] MEDS: Furosemide 20 MG TABLET 30 MG PO (09:27)
[2022-02-04] MEDS: amLODIPine Besylate 5 MG TABLET PO (09:31)
[2022-02-04] MEDS: Apixaban 5 MG TABLET PO ×2 (09:31→19:52)
[2022-02-04] MEDS: FLUoxetine HCl 20 MG CAPSULE 40 MG PO (09:31)
[2022-02-04] MEDS: Folic Acid 1 MG TABLET PO (09:31)
[2022-02-04] MEDS: Lactulose 20 GM/30 ML SOLUTION PO ×2 (09:39→19:52)
[2022-02-04] MEDS: 0.9 % Sodium Chloride Flush 3 ML SYRINGE IVFLUSH ×3 (09:40→20:43)
--- NOTE | 2022-02-04 15:44 | P.PNIM_ITS ---
Subjective Subjective Date of Service: 02/04/22 Interval History: the patient was seen and evaluated this morning more alert and interactive Still requiring 4-6 L of oxygen No reported other overnight events. Review of Systems No fever, chills but reports generalized weakness and feeling tired No chest pain, palpitation No shortness of breath or coughing No abdominal pain, nausea or vomiting No urinary symptoms Physical Exam Vital Signs: Vital Signs: Last Vital Signs Temp 98.6 F 02/04/22 15:35 Pulse 126 H 02/04/22 15:35 Resp 18 02/04/22 15:35 BP 155/94 H 02/04/22 15:35 Pulse Ox 96 02/04/22 15:35 O2 Del Method 02/04/22 15:35 O2 Flow Rate 5 02/04/22 15:35 FiO2 40 02/01/22 03:57 Oxygen Flow Rate 40 01/29/22 04:00 BMI result Body Mass Index 39.0 Const: Other: Constitutional : Alert and more interactive, not in distress, morbidly obese Neck : Normal inspection, Supple Cardiovascular : RRR, no JVP, trace lower extremity edema Respiratory : decreased bilateral air entry, no bilateral crackles, wheezes or rhonchi, oxygen supplement Gastrointestinal: soft, lax, Normal bowel sounds, Non tender Skin : Warm, Dry Neurological : Alert , oriented to self and place, no focal weakness Objective Data Active Medications Acetaminophen (Acetaminophen 325 Mg Tablet) 650 mg PO Q6H PRN PRN Reason: Pain, Mild (Pain Scale 1-3) Acetazolamide (Acetazolamide 250 Mg Tablet) 250 mg PO DAILY [facility] Last Admin: 02/04/22 09:27 Dose: 250 mg Documented By: BENITO Allopurinol (Allopurinol 100 Mg Tablet) 100 mg PO DAILY [facility] Last Admin: 02/04/22 09:27 Dose: 100 mg Documented By: BENITO Amlodipine Besylate (Amlodipine Besylate 5 Mg Tablet) 5 mg PO DAILY [facility]; Protocol Last Admin: 02/04/22 09:31 Dose: 5 mg Documented By: BENITO Apixaban (Apixaban 5 Mg Tablet) 5 mg PO BID [facility] Last Admin: 02/04/22 09:31 Dose: 5 mg Documented By: BENITO Docusate Sodium (Docusate Sodium 100 Mg Capsule) 100 mg PO DAILY PRN PRN Reason: Constipation Fluoxetine HCl (Fluoxetine Hcl 20 Mg Capsule) 40 mg PO DAILY [facility] Last Admin: 02/04/22 09:31 Dose: 40 mg Documented By: BENITO Folic Acid (Folic Acid 1 Mg Tablet) 1 mg PO DAILY [facility] Last Admin: 02/04/22 09:31 Dose: 1 mg Documented By: BENITO Furosemide (Furosemide 20 Mg Tablet) 30 mg PO DAILY [facility]; Protocol Last Admin: 02/04/22 09:27 Dose: 30 mg Documented By: BENITO Lactulose (Lactulose 20 Gm/30 Ml Solution) 20 gm PO BID [facility] Last Admin: 02/04/22 09:39 Dose: 20 gm Documented By: BENITO Metoprolol Tartrate (Metoprolol Tartrate 25 Mg Tablet) 25 mg PO BID [facility]; Protocol Last Admin: 02/04/22 09:27 Dose: 25 mg Documented By: BENITO Naproxen (Naproxen 500 Mg Tablet) 500 mg PO BID PRN PRN Reason: for pain Omeprazole (Omeprazole 40 Mg Capsule.Dr) 40 mg PO DAILY@0630 [facility] Last Admin: 02/04/22 05:55 Dose: 40 mg Documented By: MICHELLE Ondansetron HCl (Ondansetron Hcl 4 Mg/2 Ml Vial) 4 mg IVPUSH Q8H PRN PRN Reason: Nausea and Vomiting Pharmacy Consult (Consult Rx Etoh Phenob Im/Po) 1 each MISCELLANE ONCE PRN; Protocol PRN Reason: Consult order Pharmacy Consult (Consult Rx Perform Med Rec) 1 each MISCELLANE ONCE PRN PRN Reason: Consult order Prednisone (Prednisone 20 Mg Tablet) 40 mg PO DAILY [facility] Last Admin: 02/04/22 09:27 Dose: 40 mg Documented By: BENITO Sodium Chloride (0.9 % Sodium Chloride Flush 3 Ml Syringe) 3 ml IVFLUSH QSHIFT [facility] Last Admin: 02/04/22 09:40 Dose: 3 ml Documented By: BENITO Thiamine HCl (Thiamine Hcl 100 Mg Tablet) 100 mg PO DAILY [facility] Last Admin: 02/04/22 09:27 Dose: 100 mg Documented By: BENITO Labs CBC & Chem 7: 02/03/22 05:50 02/03/22 05:50 Labs: Laboratory Results - last 24 hr 02/04/22 04:53 COVID-19 ([facility]IND[facility]) Negative COVID-19 Clin Com See Note Assessment and Plan (1) Hypoventilation associated with obesity syndrome: Status: Acute (2) Acute CHF: Status: Acute (3) Chronic respiratory failure: Status: Acute Plan This is a 61-year-old male with past medical history of alcohol abuse among others who presents to the hospital with lethargy and confusion, patient's family report that he has been drinking excessively every day and doing/eating very little acute on chronic hypoxic and hypercapneic respiratory failure 2/2 Multifactorial, MJ, obesity hypoventilation syndrome,acute diastolic CHF Bicarb improved after starting diamox (will decrase to 250mg daily), confusion continues to improve cardiology input appreciated continue p.o. Lasix noncompliant with CPAP at home pulmonology input appreciated, BiPAP nighttime for 8 hours and 2 hours at time during the day o2 goal around 90% need supervised care Continue to wean down oxygen as tolerated foot pain presumed gout flare will empirically treating with prednisone 40mg daily metabolic encephalopathy acute on chronic much improved seems to have some degree of cognitive impairment at baseline, likely from ETOH; worsened with alcohol withdrawal and CO2 retention head CT negative speech appreciated advanced to NDD3 solids with thin liquids alcohol dependence withdrawal phenobarb taper completed thiamine folic acid supplement chronic AFib continue apixaban continue metoprolol HTN continue Norvasc, metoprolol On depakote ? for mood. continue depakote and prozac DVT prophylaxis-Apixaban reason for continued hospitalization: awaiting bed at [facility] Quality Stroke Does the patient have a stroke diagnosis?: No VTE Prior VTE?: No VTE Risk Level:: Medical - moderate - high VTE Device Contraindication: Treatment Not Indicated VTE Drug Contraindication: N/A - Med Ordered
[2022-02-05] VITALS (8 sets, daily range): BP systolic 120–169; BP diastolic 67–94; PULSE 68–80; RESP 16–20; TEMP 35.9–37; O2SAT 92–98
[2022-02-05 07:22] LABS: Anion Gap 17 (12-20); Blood Urea Nitrogen 29 mg/dL (9-16); Calcium 9.8 mg/dL (8.4-10.2); Carbon Dioxide 26 mmol/L (22-29); Chloride 101 mmol/L (96-108); Creatinine Clr Calc Pharmacy 86.8; Estimated Glomerular Filt Rate 56; Glucose Random 114 mg/dL (60-115); Potassium 4.4 mmol/L (3.3-5.1); Sodium 140 mmol/L (135-145)
[2022-02-05] MEDS: Furosemide 20 MG TABLET 30 MG PO (09:04)
[2022-02-05] MEDS: Folic Acid 1 MG TABLET PO (09:04)
[2022-02-05] MEDS: Metoprolol Tartrate 25 MG TABLET PO ×2 (09:04→22:04)
[2022-02-05] MEDS: amLODIPine Besylate 5 MG TABLET PO (09:04)
[2022-02-05] MEDS: Thiamine HCL 100 MG TABLET PO (09:04)
[2022-02-05] MEDS: predniSONE 20 MG TABLET 40 MG PO (09:04)
[2022-02-05] MEDS: Lactulose 20 GM/30 ML SOLUTION PO (09:04)
[2022-02-05] MEDS: FLUoxetine HCl 20 MG CAPSULE 40 MG PO (09:04)
[2022-02-05] MEDS: Apixaban 5 MG TABLET PO ×2 (09:05→22:04)
[2022-02-05] MEDS: acetaZOLAMIDE 250 MG TABLET PO (09:05)
[2022-02-05] MEDS: allopurinoL 100 MG TABLET PO (09:05)
--- NOTE | 2022-02-05 10:55 | MHC.SL.SWA ---
Speech Pathologist Impression: Oropharyngeal dysphagia Risk of Aspiration Due to: Medically Fragile Dysphasia Diet Status: No Change Liquid Consistency and Strategies for Safe Swallow: Liquid Intake Recommendation: Thin Liquid Intake Strategies: Small Sips No Straws Solid Food Consistency: Dietary Recommendations: Chopped/Advanced (NDD3) Additional Modifications to Solid Foods: Total supervision during meals to monitor tolerance and provide reminders for aspiration precautions Oral Medication Intake: Crushed with Puree Please contact the pharmacy regarding appropriate crushable or liquid drug formulations that are available whenever modified delivery is recommended. Compensatory Strategies and Precautions to be Taken for Safe Swallow: Sitting Upright (90 deg) No Straw Small Bites and Sips Alternate Liquids/Solids Rate of Ingestion Change Oral Check Supervision While Eating and Drinking for Safe Swallow: Total Supervision (1:1) Swallowing Recommended Treatments: Compens. Strategy Educat. Recommendation for Speech: Inpatient Speech Therapy 1-2 f/u Computer Service Technician Clinican/Clinical Fellow: Yes: Merissa Calderón M.A., CF-FINGERPRINT TECHNICIAN Supervisory Statement: I have reviewed and agree with the student/clinical fellow's documentation: Yes Speech Language Pathologist: Herminia Dejesus M.A., CCC-FINGERPRINT TECHNICIAN
--- NOTE | 2022-02-05 14:57 | MHC.CM.NN ---
pt ready for dc per rounds hoping [facility] will come thru with a bed ,bed search continues
--- NOTE | 2022-02-05 15:04 | HO.PM.IMPN ---
Subjective Subjective Date of Service: 02/05/22 Interval History: the patient was seen and evaluated this morning more alert and interactive Still requiring 4-6 L of oxygen No reported other overnight events. Review of Systems No fever, chills but reports generalized weakness and feeling tired No chest pain, palpitation No shortness of breath or coughing No abdominal pain, nausea or vomiting No urinary symptoms Physical Exam Vital Signs: Vital Signs: Last Vital Signs Temp 96.7 F L 02/05/22 11:48 Pulse 78 02/05/22 11:48 Resp 20 02/05/22 11:48 BP 149/85 H 02/05/22 11:48 Pulse Ox 98 02/05/22 11:48 O2 Del Method 02/05/22 11:48 O2 Flow Rate 3 02/05/22 11:48 FiO2 40 02/05/22 04:00 Oxygen Flow Rate 40 01/29/22 04:00 BMI result Body Mass Index 39.0 Const: Other: Constitutional : Alert and more interactive, not in distress, morbidly obese Neck : Normal inspection, Supple Cardiovascular : RRR, no JVP, trace lower extremity edema Respiratory : decreased bilateral air entry, no bilateral crackles, wheezes or rhonchi, oxygen supplement Gastrointestinal: soft, lax, Normal bowel sounds, Non tender Skin : Warm, Dry Neurological : Alert , oriented to self and place, no focal weakness Objective Data Active Medications Acetaminophen (Acetaminophen 325 Mg Tablet) 650 mg PO Q6H PRN PRN Reason: Pain, Mild (Pain Scale 1-3) Acetazolamide (Acetazolamide 250 Mg Tablet) 250 mg PO DAILY [facility] Last Admin: 02/05/22 09:05 Dose: 250 mg Documented By: KATERYNA Allopurinol (Allopurinol 100 Mg Tablet) 100 mg PO DAILY [facility] Last Admin: 02/05/22 09:05 Dose: 100 mg Documented By: KATERYNA Amlodipine Besylate (Amlodipine Besylate 5 Mg Tablet) 5 mg PO DAILY [facility]; Protocol Last Admin: 02/05/22 09:04 Dose: 5 mg Documented By: KATERYNA Apixaban (Apixaban 5 Mg Tablet) 5 mg PO BID [facility] Last Admin: 02/05/22 09:05 Dose: 5 mg Documented By: KATERYNA Docusate Sodium (Docusate Sodium 100 Mg Capsule) 100 mg PO DAILY PRN PRN Reason: Constipation Fluoxetine HCl (Fluoxetine Hcl 20 Mg Capsule) 40 mg PO DAILY [facility] Last Admin: 02/05/22 09:04 Dose: 40 mg Documented By: CAROLYN-BASILIO Folic Acid (Folic Acid 1 Mg Tablet) 1 mg PO DAILY [facility] Last Admin: 02/05/22 09:04 Dose: 1 mg Documented By: CAROLYN-BASILIO Furosemide (Furosemide 20 Mg Tablet) 30 mg PO DAILY [facility]; Protocol Last Admin: 02/05/22 09:04 Dose: 30 mg Documented By: CAROLYN-BASILIO Lactulose (Lactulose 20 Gm/30 Ml Solution) 20 gm PO BID [facility] Last Admin: 02/05/22 09:04 Dose: 20 gm Documented By: CAROLYN-BASILIO Metoprolol Tartrate (Metoprolol Tartrate 25 Mg Tablet) 25 mg PO BID [facility]; Protocol Last Admin: 02/05/22 09:04 Dose: 25 mg Documented By: CAROLYN-BASILIO Naproxen (Naproxen 500 Mg Tablet) 500 mg PO BID PRN PRN Reason: for pain Omeprazole (Omeprazole 40 Mg Capsule.Dr) 40 mg PO DAILY@0630 [facility] Last Admin: 02/05/22 06:11 Dose: Not Given Documented By: CAROLYNE Non-Admin Reason: too drowsy Ondansetron HCl (Ondansetron Hcl 4 Mg/2 Ml Vial) 4 mg IVPUSH Q8H PRN PRN Reason: Nausea and Vomiting Pharmacy Consult (Consult Rx Etoh Phenob Im/Po) 1 each MISCELLANE ONCE PRN; Protocol PRN Reason: Consult order Pharmacy Consult (Consult Rx Perform Med Rec) 1 each MISCELLANE ONCE PRN PRN Reason: Consult order Prednisone (Prednisone 20 Mg Tablet) 40 mg PO DAILY [facility] Last Admin: 02/05/22 09:04 Dose: 40 mg Documented By: KATERYNA Sodium Chloride (0.9 % Sodium Chloride Flush 3 Ml Syringe) 3 ml IVFLUSH QSHIFT [facility] Last Admin: 02/05/22 07:28 Dose: Not Given Documented By: KATERYNA Non-Admin Reason: assessed Thiamine HCl (Thiamine Hcl 100 Mg Tablet) 100 mg PO DAILY [facility] Last Admin: 02/05/22 09:04 Dose: 100 mg Documented By: KATERYNA Labs CBC & Chem 7: 0810/22 05:50 02/05/22 06:35 Labs: Laboratory Results - last 24 hr 02/05/22 06:35 Anion Gap 17 Estim Creat Clear Calc 86.8 Estimated GFR 56 Random Glucose 114 D Calcium 9.8 Assessment and Plan (1) Hypoventilation associated with obesity syndrome: Status: Acute (2) Chronic respiratory failure: Status: Acute Plan This is a 61-year-old male with past medical history of alcohol abuse among others who presents to the hospital with lethargy and confusion, patient's family report that he has been drinking excessively every day and doing/eating very little acute on chronic hypoxic and hypercapneic respiratory failure 2/2 Multifactorial, MJ, obesity hypoventilation syndrome,acute diastolic CHF Bicarb improved after starting diamox (will decrase to 250mg daily), confusion continues to improve cardiology input appreciated continue p.o. Lasix noncompliant with CPAP at home pulmonology input appreciated, BiPAP nighttime for 8 hours and 2 hours at time during the day o2 goal around 90% need supervised care Continue to wean down oxygen as tolerated foot pain presumed gout flare will empirically treating with prednisone 40mg daily metabolic encephalopathy acute on chronic much improved seems to have some degree of cognitive impairment at baseline, likely from ETOH; worsened with alcohol withdrawal and CO2 retention head CT negative speech appreciated advanced to NDD3 solids with thin liquids alcohol dependence withdrawal phenobarb taper completed thiamine folic acid supplement chronic AFib continue apixaban continue metoprolol HTN continue Norvasc, metoprolol On depakote ? for mood. continue depakote and prozac DVT prophylaxis-Apixaban reason for continued hospitalization: awaiting bed at [facility] Quality Stroke Does the patient have a stroke diagnosis?: No VTE Prior VTE?: No VTE Risk Level:: Medical - moderate - high VTE Device Contraindication: Treatment Not Indicated VTE Drug Contraindication: N/A - Med Ordered
--- NOTE | 2022-02-05 16:47 | PC.NURSE ---
Pt had multiple loose BMs today. Takes meds crushed in pudding. Pt was desatting while off O2 this AM to 80%, pt was placed back on 4L n/c satting well afterwards, no change in mental status. safety and fall precautions in place. otherwise no acute complications this shift. call [facility] within reach.
[2022-02-05] MEDS: 0.9 % Sodium Chloride Flush 3 ML SYRINGE IVFLUSH (22:04)
[2022-02-06] VITALS (7 sets, daily range): BP systolic 132–143; BP diastolic 74–91; PULSE 68–88; RESP 18–20; TEMP 36.1–36.7; O2SAT 96–100
[2022-02-06] MEDS: Thiamine HCL 100 MG TABLET PO (09:32)
[2022-02-06] MEDS: Furosemide 20 MG TABLET 30 MG PO (09:32)
[2022-02-06] MEDS: acetaZOLAMIDE 250 MG TABLET PO (09:32)
[2022-02-06] MEDS: allopurinoL 100 MG TABLET PO (09:32)
[2022-02-06] MEDS: Apixaban 5 MG TABLET PO ×2 (09:33→20:52)
[2022-02-06] MEDS: predniSONE 20 MG TABLET 40 MG PO (09:33)
[2022-02-06] MEDS: Metoprolol Tartrate 25 MG TABLET PO ×2 (09:33→20:33)
[2022-02-06] MEDS: Folic Acid 1 MG TABLET PO (09:33)
[2022-02-06] MEDS: FLUoxetine HCl 20 MG CAPSULE 40 MG PO (09:33)
[2022-02-06] MEDS: amLODIPine Besylate 5 MG TABLET PO (09:33)
[2022-02-06] MEDS: Lactulose 20 GM/30 ML SOLUTION PO (09:34)
[2022-02-06] MEDS: 0.9 % Sodium Chloride Flush 3 ML SYRINGE IVFLUSH ×3 (09:34→20:33)
--- NOTE | 2022-02-06 11:22 | MHC.CM.PN ---
Addendum entered by Elana Diaz 02/06/22 16:25: [facility] HAS CONFIRMED THEY WILL HAVE PTS BIPAP TOMORROW SO WILL BE ABLE TO ACCEPT PT THEY WILL CONTACT CM IN THE MORNING RE A TRANSPORT TIME Addendum entered by Elana Diaz 02/06/22 13:11: [facility] WORKING ON GETTING PTS BIPAP SHE WILL CALL CM TO CONFIRM ONCE SHE KNOWS DELIVERY DATE PT WILL NEED PCR TEST PRIOR TO DC AMBULANCE BOOKED FOR TOMORROW AT 1200 Addendum entered by Elana Diaz 02/06/22 11:46: PT INFORMED [facility] AND [facility] ARE OFFERING BEDS PT REPORTS HE DOES NOT WANT TO GO TO EITHER HE REPORTS HE WOULD LIKE CM TO KEEP LOOKING PT INFORMED EVERY SNF WITHIN 25 MILES HAS BEEN REFERRED TO AND THESE ARE THE ONLY OFFERS HE REPORTS HE HAS BEEN TO [facility] AND DOES NOT WANT TO RETURN HE SAYS HIS IS AWAY FOR THE WEEKEND SO HE DOES NOT KNOW WHAT TO DO CM INFORMED HIM HE IS MEDICALLY CLEARED TO DC HOWEVER IT WOULD TAKE A DAY FOR THE SNF TO GET THE BIPAP HE WILL NEED CM ENCOURAGED HIM TO DISCUSS THIS WITH HIS IN THE MEANTIME AND EXPECT TO DC TOMORROW Original Note: MINDY MET WITH PT TO DISCUSS DC PLANNING PT CONFIRMS HE ONLY RECEIVED ONE DOSE OF THE COVID VACCINE, SO IS UNVACCINATED PT INFORMED THERE WERE NO BED OFFERS AT THIS TIME AND THE REFERRAL WOULD BE EXPANDED PT REPORTS HE WANTED TO GO TO [facility] CM INFORMED HIM THERE WERE NO BEDS HE REPORTS HE MAY JUST WANT TO GO HOME PT REFUSES SERVICES IF HE GOES HOME, SAYING HIS DOES NOT WANT PEOPLE IN THE HOUSE PT AGREED TO WAIT FOR POTENTIAL BED OFFERS UPDATES ATTACHED AND REFERRAL EXPANDED
--- NOTE | 2022-02-06 12:24 | HO.PM.IMPN ---
Subjective Subjective Date of Service: 02/06/22 Interval History: the patient was seen and evaluated this morning Feels better overall decrease oxygen requirement to 3 L No reported overnight events Review of Systems No fever, chills but reports generalized weakness and feeling tired No chest pain, palpitation No shortness of breath or coughing No abdominal pain, nausea or vomiting No urinary symptoms Physical Exam Vital Signs: Vital Signs: Last Vital Signs Temp 97.0 F 02/06/22 11:58 Pulse 85 02/06/22 11:58 Resp 20 02/06/22 11:58 BP 137/80 02/06/22 11:58 Pulse Ox 96 02/06/22 11:58 O2 Del Method 02/06/22 11:58 O2 Flow Rate 3 02/06/22 11:58 FiO2 40 02/05/22 04:00 Oxygen Flow Rate 40 01/29/22 04:00 BMI result Body Mass Index 39.0 Const: Other: Constitutional : Alert and more interactive, not in distress, morbidly obese Neck : Normal inspection, Supple Cardiovascular : RRR, no JVP, trace lower extremity edema Respiratory : decreased bilateral air entry, no bilateral crackles, wheezes or rhonchi, oxygen supplement Gastrointestinal: soft, lax, Normal bowel sounds, Non tender Skin : Warm, Dry Neurological : Alert , oriented to self and place, no focal weakness Objective Data Active Medications Acetaminophen (Acetaminophen 325 Mg Tablet) 650 mg PO Q6H PRN PRN Reason: Pain, Mild (Pain Scale 1-3) Acetazolamide (Acetazolamide 250 Mg Tablet) 250 mg PO DAILY [facility] Last Admin: 02/06/22 09:32 Dose: 250 mg Documented By: KOTA Allopurinol (Allopurinol 100 Mg Tablet) 100 mg PO DAILY [facility] Last Admin: 02/06/22 09:32 Dose: 100 mg Documented By: KOTA Amlodipine Besylate (Amlodipine Besylate 5 Mg Tablet) 5 mg PO DAILY [facility]; Protocol Last Admin: 02/06/22 09:33 Dose: 5 mg Documented By: KOTA Apixaban (Apixaban 5 Mg Tablet) 5 mg PO BID [facility] Last Admin: 02/06/22 09:33 Dose: 5 mg Documented By: KOTA Docusate Sodium (Docusate Sodium 100 Mg Capsule) 100 mg PO DAILY PRN PRN Reason: Constipation Fluoxetine HCl (Fluoxetine Hcl 20 Mg Capsule) 40 mg PO DAILY [facility] Last Admin: 02/06/22 09:33 Dose: 40 mg Documented By: KOTA Folic Acid (Folic Acid 1 Mg Tablet) 1 mg PO DAILY [facility] Last Admin: 02/06/22 09:33 Dose: 1 mg Documented By: KOTA Furosemide (Furosemide 20 Mg Tablet) 30 mg PO DAILY [facility]; Protocol Last Admin: 02/06/22 09:32 Dose: 30 mg Documented By: KOTA Lactulose (Lactulose 20 Gm/30 Ml Solution) 20 gm PO BID [facility] Last Admin: 02/06/22 09:34 Dose: 20 gm Documented By: KOTA Metoprolol Tartrate (Metoprolol Tartrate 25 Mg Tablet) 25 mg PO BID [facility]; Protocol Last Admin: 02/06/22 09:33 Dose: 25 mg Documented By: KOTA Naproxen (Naproxen 500 Mg Tablet) 500 mg PO BID PRN PRN Reason: for pain Omeprazole (Omeprazole 40 Mg Capsule.Dr) 40 mg PO DAILY@0630 [facility] Last Admin: 02/06/22 06:33 Dose: Not Given Documented By: SKYLAR Non-Admin Reason: Patient Refused Ondansetron HCl (Ondansetron Hcl 4 Mg/2 Ml Vial) 4 mg IVPUSH Q8H PRN PRN Reason: Nausea and Vomiting Pharmacy Consult (Consult Rx Etoh Phenob Im/Po) 1 each MISCELLANE ONCE PRN; Protocol PRN Reason: Consult order Pharmacy Consult (Consult Rx Perform Med Rec) 1 each MISCELLANE ONCE PRN PRN Reason: Consult order Prednisone (Prednisone 20 Mg Tablet) 40 mg PO DAILY [facility] Last Admin: 02/06/22 09:33 Dose: 40 mg Documented By: KOTA Sodium Chloride (0.9 % Sodium Chloride Flush 3 Ml Syringe) 3 ml IVFLUSH QSHIFT [facility] Last Admin: 02/06/22 09:34 Dose: 3 ml Documented By: KOTA Thiamine HCl (Thiamine Hcl 100 Mg Tablet) 100 mg PO DAILY [facility] Last Admin: 02/06/22 09:32 Dose: 100 mg Documented By: KOTA Labs CBC & Chem 7: 02/03/22 05:50 02/05/22 06:35 Assessment and Plan (1) Hypoventilation associated with obesity syndrome: Status: Acute (2) CHF (congestive heart failure): Status: Acute (3) Morbid obesity: Status: Acute Plan This is a 61-year-old male with past medical history of alcohol abuse among others who presents to the hospital with lethargy and confusion, patient's family report that he has been drinking excessively every day and doing/eating very little acute on chronic hypoxic and hypercapneic respiratory failure 2/2 Multifactorial, MJ, obesity hypoventilation syndrome,acute diastolic CHF Bicarb improved after starting diamox (will decrase to 250mg daily), confusion continues to improve cardiology input appreciated continue p.o. Lasix noncompliant with CPAP at home pulmonology input appreciated, BiPAP nighttime for 8 hours and 2 hours at time during the day o2 goal around 90% need supervised care Continue to wean down oxygen as tolerated foot pain presumed gout flare Faustino down steroids metabolic encephalopathy acute on chronic much improved seems to have some degree of cognitive impairment at baseline, likely from ETOH; worsened with alcohol withdrawal and CO2 retention head CT negative speech appreciated advanced to NDD3 solids with thin liquids alcohol dependence withdrawal phenobarb taper completed thiamine folic acid supplement chronic AFib continue apixaban continue metoprolol HTN continue Norvasc, metoprolol On depakote ? for mood. continue depakote and prozac DVT prophylaxis-Apixaban reason for continued hospitalization: awaiting bed at [facility] Quality Stroke Does the patient have a stroke diagnosis?: No VTE Prior VTE?: No VTE Risk Level:: Medical - moderate - high VTE Device Contraindication: Treatment Not Indicated VTE Drug Contraindication: N/A - Med Ordered
[2022-02-07 04:00] VITALS: BP 170/100; PULSE 62; RESP 16; TEMP 36.8
[2022-02-07 07:27] VITALS: BP 185/88; PULSE 56; RESP 20; TEMP 36.9; O2SAT 100
[2022-02-07] MEDS: Furosemide 20 MG TABLET 30 MG PO (08:22)
[2022-02-07] MEDS: Lactulose 20 GM/30 ML SOLUTION PO (08:22)
[2022-02-07] MEDS: Thiamine HCL 100 MG TABLET PO (08:23)
[2022-02-07] MEDS: FLUoxetine HCl 20 MG CAPSULE 40 MG PO (08:23)
[2022-02-07] MEDS: Apixaban 5 MG TABLET PO (08:23)
[2022-02-07] MEDS: Folic Acid 1 MG TABLET PO (08:23)
[2022-02-07] MEDS: predniSONE 20 MG TABLET 30 MG PO (08:24)
[2022-02-07] MEDS: allopurinoL 100 MG TABLET PO (08:24)
[2022-02-07] MEDS: amLODIPine Besylate 5 MG TABLET PO (08:24)
[2022-02-07] MEDS: Metoprolol Tartrate 25 MG TABLET PO (08:25)
[2022-02-07] MEDS: acetaZOLAMIDE 250 MG TABLET PO (08:25)
[2022-02-07] MEDS: 0.9 % Sodium Chloride Flush 3 ML SYRINGE IVFLUSH (08:25)
[2022-02-07 12:00] VITALS: BP 144/85; PULSE 67; RESP 20; TEMP 36.7; O2SAT 94
--- NOTE | 2022-02-07 12:08 | MHC.CM.PN ---
MINDY MET WITH PT THIS MORNING TO DISCUSS DC PLANS HE REPORTS HE IS AGREEABLE TO STR AT [place] PT IS AWARE TRANSPORT WILL BE ARRANGED FOR LATER TODAY CM RECEIVED A CALL FROM PTS , KENA, WHO ASKED WHERE PT WAS GOING. CM INFORMED HER. SHE REPORTS SHE WILL LET PTS BROTHER/HCP, RANDAL KNOW. SHE ALSO REPORTS SHE WILL BE BRINGING THE PTS THINGS AND NEEDS MORE TIME SHE HAS A DISABLED SON SHE WILL NEED TO ARRANGE CARE FOR. CM AGREED TO SCHEDULE TRANSPORT FOR 1600 HOURS CM RECEIVED A CALL FROM PTS BROTHER/HCP, RANDAL, WHO REPORTED HE WAS UNDER THE IMPRESSION HIS PERMISSION WAS REQUIRED IN ORDER FOR PT TO BE TRANSFERRED. CM INFORMED HIM THAT WOULD ONLY BE TRUE IF THE PTS HCP WERE INVOKED, HOWEVER CM WOULD BE HAPPY TO DISCUSS PLANS A COURTESY SINCE THE PT HAS GIVEN PERMISSION FOR HIM TO RECEIVE INFO. CM INFORMED RANDAL OF THE DC PLAN/TIME AND DISCUSSED THE BARRIERS TO PT HAVING MORE SNF OPTIONS, INCLUDING HIS NON-VACCINATED STATUS. RANDAL REPORTED UNDERSTANDING PT WILL DC TO [facility] FOR STR [facility] AT 1600 HOURS. UPDATED IMM DELIVERED TO PT
--- NOTE | 2022-02-07 13:40 | P.DS_ITS ---
DS: Providers Provider Date of Service: 02/07/22 Date of admission: 01/24/22 23:13 Primary care physician: EVELYN Mckoy Consults: 01/25/22 07:11 Consult to Cardiology Routine Consulting Provider: Liborio Smith Reason for consultation: CHF? Has provider been notified: No 01/26/22 10:02 Consult to Pulmonology Routine Consulting Provider: Sool Aviles Reason for consultation: Hypoxia, lethargy, MJ/OHS, Nacrolepsy? 01/27/22 12:26 Addiction Medicine Routine Consulting Provider: Stella Mims Reason for consultation: Alcoholism, affecting his overall wellness.Plz contact his HCP brother Ortiz 01/29/22 10:46 Consult to Neurology Routine Consulting Provider: [facility] Reason for consultation: encephalopathy, episode of jerking/shaking Has provider been notified: No DS: Diagnosis Discharge Diagnosis (1) Hypoventilation associated with obesity syndrome: Status: Acute (2) CHF (congestive heart failure): Status: Acute (3) Morbid obesity: Status: Acute (4) Acute alteration in mental status: Status: Acute (5) Alcohol withdrawal: Status: Acute (6) MJ (obstructive sleep apnea): Status: Acute DS: Summary Hospital Course Hospital Course: from initial hpi: Chief Complaint: Drinking excessively This is a 61-year-old male with past medical history of CHF, alcohol abuse, morbid obesity, AFib on Eliquis, was se, chronic back pain, diabetes, obesity hypoventilation syndrome, chronic respiratory failure presents to the hospital after family called EMS due to patient drinking excessively for the past few days, not eating and not taking care of himself.? On arrival of EMS patient was found to be hypoxic in the mid 80s, he is currently on BiPAP, lethargic, not answering questions.? Unclear patient experiences seizure at home as he is postictal and encephalopathic.? On arrival to the ED patient hemodynamically stable with no significant abnormal vitals Labs are significant for WBC count of 7.4, hemoglobin of 13.9, hematocrit 46.9, PT of 20.2, INR of 1.7, pH of 7.4, CO2 of 59, creatinine of 1.47 with a baseline of 0.9, BNP of 1013 UA negative for acute infection, UDS negative, level negative Chest x-ray shows no acute pulmonary process, head CT negative Patient placed on CPAP/with backup rate of BiPAP due to his history of MJ, as well as OHS hospital course: patient was admitted for acute on chronic hypoxic and hypercapnic respiratory failure complicated by metabolic encephalopathy. This was due to obstructive sleep apnea and obesity hypoventilation syndrome, underlying alcohol dementia, as well as acute on chronic diastolic CHF complicated by noncompliance with cpap. Patient was given Lasix and Diamox. He was put on BiPAP. He was seen by Pulmonary recommended at least 8 hours at nighttime of BiPAP and 2 hours during the day. His mental status slowly improved he is now alert and oriented to place and person, he is confused time and has some poor insight. But otherwise close to baseline. due to his decreased mental status he is seen by speech therapy for dysphagia who recommended NDD3 solids with thin liquids. For his alcohol dependence with withdrawal he completed phenobarbital taper and is withdrawal has resolved. For his chronic atrial fibrillation was continued on apixaban and metoprolol. For his hypertension he was continued on amlodipine and metoprolol. For his mood disorder he was continue on Depakote Prozac. Patient is now close to baseline will be discharged to senior care facility To continue with the BiPAP machine and start physical therapy. Continue tapering dose of steroids for presumed gout flare up. The patient will likely need less than 30 days of rehabilitation at nursing facility. Time Spent with Patient Time attestation: Total time spent providing and/or coordinating discharge services: Discharge coordination time: Greater than 30 minutes Quality: Safe Use of Opioids Does Pt have an Active Cancer Diagnosis on the Problem List?: No Quality: Stroke Does the patient have a stroke diagnosis?: No Physical Exam Vital Signs: Vital Signs: Last Vital Signs Temp 98.0 F 02/07/22 12:00 Pulse 67 02/07/22 12:00 Resp 20 02/07/22 12:00 BP 144/85 H 02/07/22 12:00 Pulse Ox 94 02/07/22 12:00 O2 Del Method 02/07/22 12:00 O2 Flow Rate 2 02/07/22 12:00 FiO2 40 02/05/22 04:00 Oxygen Flow Rate 40 01/29/22 04:00 BMI result Body Mass Index 39.0 Const: Other: Constitutional : Alert and more interactive, not in distress, morbidly obese Neck : Normal inspection, Supple Cardiovascular : RRR, no JVP, trace lower extremity edema Respiratory : decreased bilateral air entry, no bilateral crackles, wheezes or rhonchi, oxygen supplement Gastrointestinal: soft, lax, Normal bowel sounds, Non tender Skin : Warm, Dry Neurological : Alert , oriented to self and place, no focal weakness DS: Data Data Completed and Pending Completed studies during hospitalization [Text1]: Procedures Assistance with Respiratory Ventilation, Less than 24 Consecutive Hours, Continuous Positive Airway Pressure (08/07/21) Bypass Trachea to Cutaneous with Tracheostomy Device, Percutaneous Approach (05/30/20) Change Tracheostomy Device in Trachea, External Approach (05/30/20) Detoxification Services for Substance Abuse Treatment (08/07/21) Drainage of Left Lower Lung Lobe, Via Natural or Artificial Opening Endoscopic, Diagnostic (05/30/20) Insertion of Endotracheal Airway into Trachea, Via Natural or Artificial Opening (05/30/20) Insertion of Feeding Device into Stomach, Percutaneous Approach (05/30/20) Insertion of Infusion Device into Right Atrium, Percutaneous Approach (05/30/20) Insertion of Infusion Device into Superior Vena Cava, Percutaneous Approach (05/30/20) Performance of Cardiac Output, Single, Manual (05/30/20) Performance of Urinary Filtration, Intermittent, Less than 6 Hours Per Day (05/30/20) Respiratory Ventilation, Greater than 96 Consecutive Hours (05/30/20) Ultrasonography of Superior Vena Cava, Guidance (05/30/20) Imaging Chest x-ray: Radiologist's impression: ITS Impressions Head CT 01/24/22 21:41 IMPRESSION: 1. No acute intracranial pathology. Chest X-Ray 01/24/22 21:42 IMPRESSION: No acute pulmonary process. Head CT 01/29/22 11:37 IMPRESSION: No acute intracranial abnormality. Discharge Plan Discharge Patient Disposition: [facility] Discharge Diagnosis: hypercapnea Referrals: Ortiz Deluca, HYDRAULIC SPECIALIST-BC [Primary Care Provider] - 1 Week Discharge Medications: New acetazolamide 250 mg Tablet 250 mg PO DAILY Qty: 0 0RF folic acid 1 mg Tablet 1 mg PO DAILY Qty: 0 0RF lactulose 20 gram/30 mL Solution 20 g PO BID Qty: 0 0RF thiamine mononitrate (vit B1) 100 mg Tablet 100 mg PO DAILY Qty: 0 0RF prednisone 10 mg tablet See Taper PO DAILY Qty: 15 0RF Taper: Prednisone 30 mg daily for 2 Days and 0 Hour 20 mg daily for 3 Days and 0 Hour 10 mg daily for 3 Days and 0 Hour Continued (DME) blood-glucose meter [FreeStyle Lite Meter] Kit See Rx Instructions .ROUTE .MEDSUPPLY Qty: 1 0RF Rx Instructions: check sugar twice a day (DME) lancets [FreeStyle Lancets] 28 gauge misc See Rx Instructions .ROUTE .MEDSUPPLY Qty: 100 2RF Rx Instructions: check sugar twice a day omeprazole 20 mg capsule,delayed release(DR/EC) 40 mg PO DAILY@0630 Qty: 60 3RF fluoxetine 40 mg capsule 40 mg PO DAILY Qty: 90 0RF allopurinol 100 mg tablet 100 mg PO DAILY 90 Days Qty: 90 1RF metformin 850 mg tablet 850 mg PO DAILY Qty: 90 1RF furosemide 20 mg tablet 30 mg PO DAILY 30 Days Qty: 45 1RF Eliquis 5 mg tablet 5 mg PO BID Qty: 60 2RF cyclobenzaprine 10 mg tablet 10 mg PO BEDTIME PRN (Reason: muscle spasm) 30 Days Qty: 60 0RF divalproex 250 mg tablet,delayed release (DR/EC) 250 mg PO BID Qty: 60 2RF amlodipine 5 mg tablet 5 mg PO DAILY Qty: 30 2RF metoprolol tartrate 25 mg tablet 25 mg PO BID Qty: 60 2RF lorazepam 0.5 mg tablet 0.5 mg PO BID PRN (Reason: anxiety) 30 Days Qty: 60 0RF albuterol sulfate 90 mcg/actuation HFA aerosol inhaler 2 puff inhalation QID Discontinued naproxen 500 mg tablet 500 mg PO BID PRN (Reason: for pain) Qty: 60 3RF Discharge Orders: Discharge Order (Routine); Ordered 02/07/22 Ordered By: Diane Jama Diet: NDD3 solids, thin liquid Activity on Discharge: As tolerated Stand Alone Forms: Patient Portal Discharge page Care Plan Goals: manage MJ, OHS Health Concerns: OHS/MJ poor compliance Plan of Treatment: BIPAP at night atleast 8 hours fio2 40, 11/04 Assessment: You were admitted to the hospital for evaluation of altered mentation. Found to be in hypercapnic respiratory failure. Believed to be secondary to alcoholism and not using your CPAP machine. good response to BiPAP therapy. Your mental status improved as you went through alcohol withdrawal. We advise you complete abstinence from alcohol.
[2022-02-07 15:01] VITALS: BP 134/79; PULSE 82; RESP 18; TEMP 37.2; O2SAT 97
[2022-02-07 15:27] LABS: Influenza A PCR NEGATIVE (Negative); Influenza B PCR NEGATIVE (Negative); Resp Syncy Virus RNA Qual PCR NEGATIVE (Negative); SARS COV2 PCR INHOUSE NEGATIVE (Negative)
--- NOTE | 2022-02-07 18:24 | PC.NURSE ---
Alert and responsive. Denies pain. VSS, afebrile, no acute resp. distress noted. Took all schedule meds as ordered. New order to discharge patient to [facility]. report called in to Nurse Al. Awaiting transportation.
[2022-02-07 19:03] VITALS: BP 119/56; PULSE 78; RESP 18; TEMP 36.6; O2SAT 97
== END 2022-02-07 20:02 | disposition skilled nursing facility (03) | DRG 291 ==
LOC: HO.ED 22:32 → HO.EDOVER 23:20 → HO.IMC 01-25 16:28
PROVIDERS: Internal Medicine; Physician Assistant Medical; Admitting Provider Internal Medicine; Emergency Provider Emergency Medicine; PCP Nurse Practitioner Family; Visit Provider Student in an Organized Health Care Education/Training Program
DX: I13.0 Hypertensive heart and chronic kidney disease with heart failure and stage 1 through stage 4 chronic kidney disease, or unspecified chronic kidney disease (principal); G93.41 Metabolic encephalopathy; I50.33 Acute on chronic diastolic (congestive) heart failure; J96.21 Acute and chronic respiratory failure with hypoxia; E66.2 Morbid (severe) obesity with alveolar hypoventilation; F10.239 Alcohol dependence with withdrawal, unspecified; F10.27 Alcohol dependence with alcohol-induced persisting dementia; Y90.0 Blood alcohol level of less than 20 mg/100 ml; N18.30 Chronic kidney disease, stage 3 unspecified; E11.22 Type 2 diabetes mellitus with diabetic chronic kidney disease; I48.91 Unspecified atrial fibrillation; F17.210 Nicotine dependence, cigarettes, uncomplicated; Z20.822 Contact with and (suspected) exposure to COVID-19; Z71.6 Tobacco abuse counseling; Z79.01 Long term (current) use of anticoagulants; Z79.84 Long term (current) use of oral hypoglycemic drugs; Z79.899 Other long term (current) drug therapy
CPT/HCPCS: 0241U; 36415; 70450; 71045; 80048; 80076; 80143; 80164; 80179; 80307; 81001; 82077; 82140; 82803; 82947; 83690; 83735; 83880; 84484; 85025; 85027; 85610; 87635; 92526; 92610; 93005; 94660; 96372; 96374; 97110; 97116; 97162; 97530; 99285; J1940; J2560

== ENCOUNTER 2022-03-08 14:24 | Outpatient (REF) | payer MEDICARE, OTHER, SELFPAY ==
[2022-03-08 14:53] LABS: MANUAL DIFF FLAG NO
[2022-03-08 15:00] LABS: Ammonia 22 umol/L (13-55)
[2022-03-08 15:36] LABS: Basophils Absolute Auto 0.1 X10*3/uL (0.0-0.2); Basophils Percent Auto 0.7 % (0-2); Eosinophils Absolute Auto 0.2 X10*3/uL (0.0-0.4); Estimated Average Glucose 134 mg/dL; Hematocrit 50.5 % (42.0-52.0); Hemoglobin A1c % 6.3 %; Imm Gran Abs Auto 0.06 X10*3/uL (0.00-0.03); Imm Gran Pct Auto 0.5 % (0.0-0.4); Lymphocytes Absolute Auto 3.4 X10*3/uL (1.2-4.9); Lymphocytes Percent Auto 28.9 % (20-40); Mean Corpuscular HGB Conc 31.7 g/dl (31.0-36.0); Mean Corpuscular Hemoglobin 26.6 pg (27.0-33.0); Mean Corpuscular Volume 83.9 fL (80.0-98.0); Mean Platelet Volume 10.5 fL (9.4-12.4); Monocytes Percent Auto 8.8 % (2-11); Neutrophils Percent Auto 59.1 % (45-73); Platelet Count 245 X10*3/uL (160-400); Red Blood Count 6.02 X10*6/uL (4.60-5.80); Red Cell Distribution Width 18.7 % (11.0-16.0); White Blood Count 11.9 X10*3/uL (4.8-10.8)
[2022-03-08 15:55] LABS: Alanine Aminotransferase 12 U/L (0-40); Alkaline Phosphatase 108 U/L (39-117); Anion Gap 16 (12-20); Aspartate Amino Transferase 19 U/L (5-37); Bilirubin Direct 0.3 mg/dL (0.0-0.5); Bilirubin Total 0.6 mg/dL (0.0-1.0); Blood Urea Nitrogen 26 mg/dL (9-16); Calcium 9.7 mg/dL (8.4-10.2); Carbon Dioxide 30 mmol/L (22-29); Chloride 97 mmol/L (96-108); Cholesterol 206 mg/dL; Estimated Glomerular Filt Rate 36; Glucose Fasting 111 mg/dL (60-99); HDL Cholesterol 34 mg/dL; LDL Cholesterol Calculated 143 mg/dl; Potassium 5.4 mmol/L (3.3-5.1); Sodium 138 mmol/L (135-145); Total Protein 8.3 g/dL (6.5-8.0); Triglycerides 146 mg/dL
[2022-03-08 16:14] LABS: Ferritin 106 ng/mL (20-250)
[2022-03-08 16:17] LABS: Prostate Specific Antigen Scr 0.87 ng/mL (<0.05-4.0); TSH reflex Free T4 2.38 uIU/mL (0.32-4.0)
[2022-03-10 04:06] LABS: Hepatitis A Antibody IgG Nonreactive (Nonreactive)
== END 2022-03-08 14:25 | disposition home or self-care (01) ==
LOC: HO.LAB 14:24
PROVIDERS: PCP Nurse Practitioner Family; Visit Provider Internal Medicine
DX: Z13.89 Encounter for screening for other disorder (principal)
CPT/HCPCS: 36415; 80048; 80053; 80061; 82140; 82248; 82728; 83036; 84153; 84443; 85025; 86708; 99212

== ENCOUNTER 2022-03-08 16:50 | Emergency (ER) | payer MEDICARE, OTHER, SELFPAY ==
--- NOTE | 2022-03-08 17:56 | ECG_ITS ---
Test Reason : ABNORMAL LABS Blood Pressure : / mmHG Vent. Rate : 082 BPM Atrial Rate : 000 BPM P-R Int : 000 ms QRS Dur : 088 ms QT Int : 370 ms P-R-T Axes : 000 075 037 degrees QTc Int : 432 ms Atrial fibrillation Low voltage QRS Abnormal ECG When compared with ECG of 24-JAN-2022 22:39, Nonspecific T wave abnormality no longer evident in Lateral leads Referred By: Generic ED Physician Electronically Signed By:BERNARDINO ROWE
[2022-03-08 17:58] VITALS: BP 130/70; PULSE 100; RESP 20; TEMP 36.6; O2SAT 100; BMI 39.6
--- NOTE | 2022-03-08 19:46 | ED_ITS ---
HPI - General Adult General Chief complaint: Recheck/Abnormal Lab/Rx Stated complaint: abnormal labs per dr Time Seen by Provider: 03/08/22 19:46 Source: patient Mode of arrival: ambulatory Limitations: no limitations History of Present Illness HPI narrative: Patient's history of CHF, alcohol abuse morbid obesity, AFib diabetes chronic hypoxic hypercapnic respiratory failure with history of CKD sent by PCP for MERLIN with creatinine of 1.92 with baseline 1.3 and potassium 5.4 patient complaining of slight weakness patient is on acetazolamide and furosemide 30 mg daily urinating good amount of urine no shortness of breath or chest pain or muscle cramps Related Data Home Medications Medication Instructions Recorded Confirmed albuterol sulfate 90 mcg/actuation 2 puff inhalation QID 10/14/21 03/08/22 aerosol inhaler Previous Rx's Medication Instructions Recorded blood-glucose meter (5min MediaStyle #1 ea 09/03/20 Lite Meter kit) lancets 28 gauge (FreeStyle #100 ea 02/02/21 Lancets) omeprazole 20 mg capsule,delayed 40 mg PO DAILY@0630 #60 caps 10/07/21 release furosemide 20 mg tablet 30 mg PO DAILY 30 days #45 tabs 11/15/21 amlodipine 5 mg tablet 5 mg PO DAILY #30 tabs 01/05/22 divalproex 250 mg tablet,delayed 250 mg PO BID #60 tabs 01/05/22 release acetazolamide 250 mg tablet 250 mg PO DAILY #0 tabs 02/03/22 metformin 850 mg tablet 850 mg PO DAILY #90 tabs 02/22/22 apixaban 5 mg tablet (Eliquis) 5 mg PO BID #60 tabs 02/23/22 fluoxetine 40 mg capsule 40 mg PO DAILY #90 caps 02/23/22 folic acid 1 mg tablet 1 mg PO DAILY 30 days #30 tabs 02/23/22 metoprolol tartrate 25 mg tablet 25 mg PO BID #60 caps 02/23/22 peg 3350-electrolytes 236 240 ml PO Q10M #4,000 mL 03/08/22 gram-22.74 gram-6.74 gram-5.86 gram solution (Golytely) Allergies Allergy/AdvReac Type Severity Reaction Status Date / Time No Known Allergies Allergy Verified 03/08/22 13:13 [No Known Allergies*] Review of Systems Review of Systems: Yes all other systems are reviewed and are negative [facility] Past Medical History Medical History Afib Alcohol dependency Anxiety Arthritis CHF (congestive heart failure) Cirrhosis CKD (chronic kidney disease) stage 3, GFR 30-59 ml/min Depression Diabetes Diastolic CHF, acute on chronic Encephalopathy chronic Fever of unknown origin Gout HTN (hypertension) Hypoventilation associated with obesity syndrome Left atrial enlargement Morbid obesity Obesity (BMI 35.0-39.9 without comorbidity) Obstructive sleep apnea (adult) (pediatric) Seroma due to trauma Sleep apnea Wernicke encephalopathy Surgical History No pertinent past surgical history Family History Family History Father Lung cancer Mother No problems noted. Maternal Aunt History of heart attack Sister No problems noted. Brother Cancer of kidney Brother No problems noted. Brother No problems noted. Brother No problems noted. Brother No problems noted. Brother No problems noted. Other Substance use disorder Social History Social History Household Members: Spouse Housing: House Do you presently have visiting nurse or other home services: No Unable to assess alcohol history related to: Unknown Alcohol intake: current Alcohol intake frequency: 3 or more drinks per day Alcohol type: hard liquor Patient Tobacco Use Status: Current everyday Tobacco user Tobacco use type: Cigarette Cigarette Packs Per Day: 1 Cigarettes Per Day: 20.0 e-Cigarette/Vaping Use: Never Used Second Hand Smoke Exposure: Yes Advance Directives: No Advance Directives Information Provided: No service: Yes Current occupational status: unemployed Cognitive needs: No Hearing needs: No Vision needs: No Physical Exam ED Vital Signs: Vital Signs - 24 hr 03/08/22 17:58 03/08/22 20:56 Temperature 98 F Pulse Rate 100 77 Respiratory Rate 20 Blood Pressure 130/70 133/75 Pulse Oximetry 100 96 Oxygen Delivery Method Room Air Room Air BMI result Body Mass Index 39.6 Appearance: Alert. Oriented X3. No acute distress. Obese Eyes: PERRLA, No Nystagmus ENT: Pharynx normal. Oral Mucosa moist Neck: Normal inspection. Neck supple. CVS: Irregularly irregular heart rate. Pulses normal. Respiratory: No respiratory distress. Equal air entry bilateral, no wheezing/rales/rhonchi Abdomen: Soft and nontender. Bowel sounds are present, no mass palpable, no CVA tenderness Skin: Skin warm and dry. Normal skin color. Normal skin turgor. Extremities: No lower extremity edema. No calf tenderness Neuro: Oriented X 3. No motor deficit. No sensory deficit.No cerebellar signs , cranial nerves II-XII intact Medical Decision Making MDM Narrative Medical decision making narrative: Patient with MERLIN with potassium 5.4 give 1 L bolus normal saline recheck chemistry Repeat chemistry showed slight improvement in creatinine from 1.92-1.73 potassium 5.2. Will discharge patient home advised to stop acetazolamide for the next few days and decrease the dose of furosemide to 20 mg will also discontinue metformin Lab Data Lab results reviewed: Yes I reviewed the patient's lab results. Result diagrams: 03/08/22 22:11 Labs: Lab Results 03/08/22 Range/Units 22:11 Sodium 141 (135-145) mmol/L Potassium 5.2 H (3.3-5.1) mmol/L Chloride 100 (96-108) mmol/L Carbon Dioxide 31 H (22-29) mmol/L Anion Gap 15 (12-20) BUN 26 H (9-16) mg/dL Creatinine 1.73 H (0.5-1.4) mg/dL Estim Creat Clear Calc 65.0 Estimated GFR 40 Random Glucose 93 (60-115) mg/dL Calcium 9.2 (8.4-10.2) mg/dL ECG Data Attestation: I personally reviewed and interpreted this ECG as follows: Interpretation: Atrial fibrillation heart rate 72 beats per minute no acute ischemic changes Discharge Plan Discharge Clinical Impression: Acute kidney injury superimposed on chronic kidney disease Patient Disposition: Home, Self-Care Instructions: Acute Kidney Injury (DC) Additional Instructions: Stop metformin and decrease the dose of furosemide to 20 mg daily Stop taking acetazolamide for now Follow-up with your PCP/sales relationship manager in next 4 days to recheck labs Prescriptions: No Action (DME) blood-glucose meter [FreeStyle Lite Meter] Kit See Rx Instructions .ROUTE .MEDSUPPLY Qty: 1 0RF Rx Instructions: check sugar twice a day (DME) lancets [FreeStyle Lancets] 28 gauge misc See Rx Instructions .ROUTE .MEDSUPPLY Qty: 100 2RF Rx Instructions: check sugar twice a day omeprazole 20 mg capsule,delayed release(DR/EC) 40 mg PO DAILY@0630 Qty: 60 3RF furosemide 20 mg tablet 30 mg PO DAILY 30 Days Qty: 45 1RF divalproex 250 mg tablet,delayed release (DR/EC) 250 mg PO BID Qty: 60 2RF amlodipine 5 mg tablet 5 mg PO DAILY Qty: 30 2RF Eliquis 5 mg tablet 5 mg PO BID Qty: 60 2RF fluoxetine 40 mg capsule 40 mg PO DAILY Qty: 90 0RF folic acid 1 mg tablet 1 mg PO DAILY 30 Days Qty: 30 3RF metoprolol tartrate 25 mg tablet 25 mg PO BID Qty: 60 2RF acetazolamide 250 mg Tablet 250 mg PO DAILY Qty: 0 0RF metformin 850 mg tablet 850 mg PO DAILY Qty: 90 1RF albuterol sulfate 90 mcg/actuation HFA aerosol inhaler 2 puff inhalation QID peg 3350-electrolytes [Golytely] 236-22.74-6.74 -5.86 gram recon soln 240 ml PO Q10M Qty: 4000 0RF Rx Instructions: split prep instructions; until fecal effluent is clear
--- NOTE | 2022-03-08 19:54 | ECG_ITS ---
Test Reason : ABNORMAL LAB Blood Pressure : / mmHG Vent. Rate : 072 BPM Atrial Rate : 000 BPM P-R Int : 000 ms QRS Dur : 090 ms QT Int : 398 ms P-R-T Axes : 000 074 050 degrees QTc Int : 435 ms Atrial fibrillation Low voltage QRS Abnormal ECG When compared with ECG of 08-MAR-2022 18:01, No significant change was found Referred By: Tony Stewart Electronically Signed By:BERNARDINO ROWE
[2022-03-08] MEDS: Sodium Zirconium Cyclosilicate 10 GM POWD.PACK PO (20:40)
[2022-03-08] MEDS: 0.9 % Sodium Chloride 1,000 ML 999 ML IV (20:51)
[2022-03-08 20:56] VITALS: BP 133/75; PULSE 77; O2SAT 96
[2022-03-08 22:32] LABS: Anion Gap 15 (12-20); Blood Urea Nitrogen 26 mg/dL (9-16); Calcium 9.2 mg/dL (8.4-10.2); Carbon Dioxide 31 mmol/L (22-29); Chloride 100 mmol/L (96-108); Estimated Glomerular Filt Rate 40; Glucose Random 93 mg/dL (60-115); Potassium 5.2 mmol/L (3.3-5.1); Sodium 141 mmol/L (135-145)
== END 2022-03-08 23:23 | disposition home or self-care (01) ==
PROVIDERS: Emergency Provider Internal Medicine; PCP Nurse Practitioner Family
DX: E11.22 Type 2 diabetes mellitus with diabetic chronic kidney disease (principal); I13.0 Hypertensive heart and chronic kidney disease with heart failure and stage 1 through stage 4 chronic kidney disease, or unspecified chronic kidney disease; N18.30 Chronic kidney disease, stage 3 unspecified; I50.9 Heart failure, unspecified; N17.9 Acute kidney failure, unspecified; R53.1 Weakness; K74.60 Unspecified cirrhosis of liver; I48.19 Other persistent atrial fibrillation; F10.20 Alcohol dependence, uncomplicated; F17.210 Nicotine dependence, cigarettes, uncomplicated; E66.9 Obesity, unspecified; Z68.39 Body mass index [BMI] 39.0-39.9, adult; Z79.899 Other long term (current) drug therapy; Z79.84 Long term (current) use of oral hypoglycemic drugs
CPT/HCPCS: 36415; 80048; 80053; 80061; 82140; 82248; 82728; 83036; 84153; 84443; 85025; 86708; 93005; 96360; 99212; 99284

== ENCOUNTER 2022-03-09 15:54 | Outpatient (REF) | payer MEDICARE, OTHER, SELFPAY | END 2022-03-09 15:55 | disposition home or self-care (01) | LOC: HO.MDS 15:54 | PROVIDERS: Visit Provider Internal Medicine | DX: K74.69 Other cirrhosis of liver (principal) | CPT/HCPCS: 96365; 96366; P9047 ==

== ENCOUNTER 2022-03-10 09:45 | Outpatient (REF) | payer MEDICARE, OTHER, SELFPAY | END 2022-03-10 09:46 | disposition home or self-care (01) | LOC: HO.MDS 09:45 | PROVIDERS: PCP Nurse Practitioner Family; Visit Provider Internal Medicine | DX: K72.90 Hepatic failure, unspecified without coma (principal) | CPT/HCPCS: 96365; 96366; P9047 ==

== ENCOUNTER 2022-03-11 09:40 | Outpatient (REF) | payer MEDICARE, OTHER, SELFPAY ==
[2022-03-11 14:58] LABS: Anion Gap 16 (12-20); Blood Urea Nitrogen 15 mg/dL (9-16); Calcium 10.1 mg/dL (8.4-10.2); Carbon Dioxide 25 mmol/L (22-29); Chloride 99 mmol/L (96-108); Estimated Glomerular Filt Rate 51; Glucose Random 152 mg/dL (60-115); Sodium 136 mmol/L (135-145)
== END 2022-03-11 09:41 | disposition home or self-care (01) ==
LOC: HO.MDS 09:40
PROVIDERS: Visit Provider Internal Medicine
DX: K72.90 Hepatic failure, unspecified without coma (principal)
CPT/HCPCS: 36415; 80048; 96365; 96366; P9047

== ENCOUNTER 2022-03-25 11:28 | Outpatient (REF) | payer MEDICARE, OTHER, SELFPAY ==
[2022-03-25 14:06] LABS: Appearance Urine Clear; Color Urine Yellow; Glucose Urine UA Negative (Negative); Leukocyte Esterase Urine Large (3+) (Negative); Nitrite Urine Negative (Negative); PH 6.5 (5.0-9.0); UMIC TRIGGER UACC YES; Urine Blood Moderate (2+) (Negative); Urine Ketones Negative (Negative); Urine Protein Trace mg/dL (Neg-Trace)
[2022-03-25 14:11] LABS: Bacteria Urine 1+ (None Seen); Hyaline Casts Urine 0-2 /LPF (0-2); Squamous Epithelial Cell Urine 0-2 /HPF (0-2); UACC Culture Trigger YES; WBC Urine >50 /HPF (0-5)
[2022-03-25 14:19] LABS: Alanine Aminotransferase 15 U/L (0-40); Alkaline Phosphatase 117 U/L (39-117); Anion Gap 17 (12-20); Aspartate Amino Transferase 18 U/L (5-37); Bilirubin Total 0.6 mg/dL (0.0-1.0); Blood Urea Nitrogen 22 mg/dL (9-16); Calcium 9.9 mg/dL (8.4-10.2); Carbon Dioxide 27 mmol/L (22-29); Chloride 99 mmol/L (96-108); Estimated Glomerular Filt Rate 40; Glucose Random 128 mg/dL (60-115); Potassium 5.1 mmol/L (3.3-5.1); Sodium 138 mmol/L (135-145)
[2022-03-25 14:24] LABS: Estimated Average Glucose 134 mg/dL; Hemoglobin A1c % 6.3 %
[2022-03-25 14:40] LABS: Potassium Urine Random 48.6 mmol/L
[2022-03-25 14:46] LABS: Creatinine Urine 69.36 mg/dL; Microalbum/Creatinine Ratio Ur 154.2 ug/mg cr
[2022-03-25 15:07] LABS: Folate 18.6 ng/mL (> or = 4.0); Vitamin B12 314 pg/mL (200-900)
== END 2022-03-25 11:29 | disposition home or self-care (01) ==
LOC: HO.HMGCLDS 11:28
PROVIDERS: PCP Nurse Practitioner Family; Visit Provider Internal Medicine
DX: D64.9 Anemia, unspecified (principal); E11.9 Type 2 diabetes mellitus without complications; N17.9 Acute kidney failure, unspecified; K74.60 Unspecified cirrhosis of liver
CPT/HCPCS: 36415; 80048; 81001; 81003; 82043; 82247; 82607; 82746; 83036; 84075; 84133; 84300; 84450; 84460; 87086; 87088; 87186

== ENCOUNTER 2022-03-25 14:58 | Outpatient (REF) | payer MEDICARE, OTHER, SELFPAY | END 2022-03-25 14:59 | disposition home or self-care (01) | LOC: HO.LAB 14:58 | PROVIDERS: Visit Provider Internal Medicine | DX: Z13.89 Encounter for screening for other disorder (principal) ==

== ENCOUNTER 2022-04-07 12:42 | Outpatient (REF) | payer MEDICARE, OTHER, SELFPAY ==
[2022-04-07 14:42] LABS: Anion Gap 16 (12-20); Blood Urea Nitrogen 20 mg/dL (9-16); Calcium 9.4 mg/dL (8.4-10.2); Carbon Dioxide 27 mmol/L (22-29); Chloride 100 mmol/L (96-108); Estimated Glomerular Filt Rate 43; Glucose Random 154 mg/dL (60-115); Potassium 4.6 mmol/L (3.3-5.1); Sodium 138 mmol/L (135-145)
[2022-04-07 15:09] LABS: Prostate Specific Antigen Scr 0.66 ng/mL (<0.05-4.0)
[2022-04-07 16:50] LABS: Urine Cytology See Pathology rpt
[2022-04-07 16:55] LABS: Appearance Urine Clear; Color Urine Yellow; Glucose Urine UA Negative (Negative); Leukocyte Esterase Urine Small (1+) (Negative); Nitrite Urine Negative (Negative); PH 6.5 (5.0-9.0); UMIC TRIGGER UA YES; Urine Blood Small (1+) (Negative); Urine Ketones Negative (Negative); Urine Protein Trace mg/dL (Neg-Trace)
[2022-04-07 17:00] LABS: Bacteria Urine None Seen (None Seen); Hyaline Casts Urine 0-2 /LPF (0-2); Squamous Epithelial Cell Urine 0-2 /HPF (0-2)
== END 2022-04-07 12:43 | disposition home or self-care (01) ==
LOC: HO.HMGCLDS 12:42
PROVIDERS: Absent Provider Internal Medicine; PCP Nurse Practitioner Family; Visit Provider Nurse Practitioner Family
DX: R31.29 Other microscopic hematuria (principal); N17.9 Acute kidney failure, unspecified; Z12.5 Encounter for screening for malignant neoplasm of prostate
CPT/HCPCS: 36415; 80048; 81001; 84153; 88112

== ENCOUNTER → 2022-04-09 07:17 | Outpatient (REF) | payer MEDICARE, OTHER, SELFPAY ==
--- NOTE | 2022-04-09 07:19 | CA_ITS ---
Transthoracic Echocardiogram Patient (Last, First, Middle): Esteban Galindo F Gender: Male Date of : 1960 Age: 62 Procedure Date: 04/09/2022 Procedure Type: Transthoracic Echocardiogram Location: OP Height: 185. cm Weight: 139.71 kg BSA: 2.58 m2 Heart Rate: bpm BP: 124 / 70 mmHg County Coroner: Referring MD: Magdalena Fish MD Symptoms: Pulmonary HTN, assess right side, K74.60 - Unspecified cirrhosis of liver Study Quality: Adequate with Contrast ECG Rhythm: Atrial Fibrillation Conclusions: - The left ventricular systolic function is normal. The calculated ejection fraction is 62% by biplane method. - Bubble study is poor quality due to body habitus. Inadequate to assess for intracardiac or intrapulmonary shunting. - There is mild aortic valve stenosis. - Mild pulmonary hypertension is present. Findings Procedure Information Contrast agent, definity, is being given per protocol without apparent complications. Left Ventricle Normal left ventricular cavity size. There is mildly increased left ventricular wall thickness. The left ventricular systolic function is normal. The calculated ejection fraction is 62% by biplane method. There is no evidence of regional wall motion abnormalities. Diastolic function is indeterminate on the basis of available data. Right Ventricle Mildly increased right ventricular cavity size. There is normal right ventricular systolic function. Atria The left atrium is mildly dilated. The right atrium is normal in size. Bubble study is poor quality due to body habitus. Inadequate to assess for intracardiac or intrapulmonary shunting. Aortic Valve There is mild calcification of the aortic valve. There is mild aortic valve stenosis. The mean gradient is 10 mmHg. The aortic valve area is 1.63 cm2. There is trace (trivial) aortic valve regurgitation. Mitral Valve There is mild mitral annular calcification. There is trace mitral valve regurgitation. There is no mitral valve stenosis. Pulmonic Valve The pulmonic valve is likely normal. Tricuspid Valve There is trace tricuspid valve regurgitation. The right ventricular systolic pressure is 37 mmHg. Mild pulmonary hypertension is present. Great Vessels The asc aorta is normal in size. Venous The inferior vena cava is normal in size and collapses greater than 50% with inspiration. Pericardium/Pleural There is no evidence of pericardial effusion. Prior Study Comparison No significant change compared to prior study dated: 08/10/2021. Measurements 2D Linear Measurements IVSd: 1.37 0.6-0.9/0.6-1.0 cm LVIDd: 5.88 3.9-5.3/4.2-5.9 cm LVIDd Index: 2.28 2.4-3.2/2.2-3.1 cm/m2 LVIDs: 4.10 2.0-3.6 cm LVPWd: 1.25 0.7-1.1 cm Ao Root: 3.30 2.1-3.5 cm LA Diam: 5.20 2.7-3.8/3.0-4.0 cm LAIDs Index: 2.02 1.5-2.3 cm/m2 LV Mass: 427.26 67-162/88-224 g LV Mass Index: 165.60 43-95/49-115 g/m2 LVOT Diam: 2.10 3.0+(-)1.3 cm 2D Systolic Function EF 4C: 64.50 >55% EF 2C: 63.10 >55% EF BiP: 62.30 >55% Mitral Valve MV Pk E: 1.09 MV Decel Time: 182.00 E'Lateral: 9.68 E'Medial: 7.83 E/E' Med: 13.90 E/E' Lat: 11.30 PHT: 53.00 MVA PHT: 4.15 Decel [place]: 5.96 Aortic Valve AoV Pk Yuval: 2.13 AoV Mn Yuval: 1.50 AoV VTI: 0.51 AoV Pk Grad: 18.00 Aov Mn Grad: 10.00 STONE Cont.VTI: 1.63 LVOT LVOT Pk Yuval: 1.06 LVOT Mn Yuval: 0.67 LVOT VTI: 0.24 LVOT Pk Grad: 4.00 LVOT Mn Grad: 2.00 LVOT Diam: 2.10 LVOT Area: 3.46 Diastolic Function MV Pk E: 1.09 E'Medial: 7.83 E/E' Med: 13.90 E' Laterial: 9.68 E/E' Lat: 11.30 Right Ventricle TAPSE (mm): 18.00 TVS' Yuval: 9.00 Tricuspid Valve TR Pk Yuval: 2.91 TR Pk Grad: 34.00 RA Press: 3.00 RVSP: 37.00 Great Vessels Aorta Ao Root-2D: 3.30 2.0-3.7 cm Ao Asc: 3.90 2.1-3.4 cm Pulmonary Valve PV Pk Yuval: 0.90 Peak PV Grad: 3.00 Updated in Other Vendor System with Status of Final Stuart Rosario MD electronically signed on 04/11/2022 11:44:54 AM with status of Final
== END ==
LOC: HO.CARD 07:17
PROVIDERS: Visit Provider Internal Medicine
DX: I27.20 Pulmonary hypertension, unspecified (principal)
CPT/HCPCS: 93306; Q9957

== ENCOUNTER 2022-04-15 11:28 | Day surgery (SDC) | payer MEDICARE, OTHER, SELFPAY ==
[2022-04-09 12:04] VITALS: BMI 39.6
[2022-04-09 12:14] VITALS: BMI 39.6
--- NOTE | 2022-04-12 14:45 | P.CONAN_ITS ---
Documented by User: Shante Hayes NP 04/14/22 10:40 HPI - Anesthesia Eval Consult details Narrative: 62yo M for Upper Endoscopy and Colonoscopy 01/2022 - Admit to [facility] [place] with encephalopathy/heavy ETOH use/respiratory depression. Cardiology consulted for elevated BNP. Pt was not fluid overloaded, known diastolic heart failure. BNP elevated likely d/t RV strain from hypoxic pulmonary vaso constriction. Hypoxemia resolved with BiPAP tx. Instructed avoid ETOH Post-discharge pt reports no ETOH use, Echo ordered by GI 03/2022 - report below Eliquis for afib ETOH cirrhosis, hx elevated INR. Will repeat DOS. PMFSH Active Problems Active Problems: All Active Problems (Updated 04/12/22 @ 07:18 by Ortiz Deluca, [facility]) Microhematuria (Acute) Abscess (Acute) Difficulty breathing (Acute) Sleep apnea (Acute) Alcohol withdrawal syndrome (Acute) Persistent atrial fibrillation (Acute) Acute kidney failure (Acute) Encephalopathy (Acute) Cardiac arrest with successful resuscitation (Acute) Obesity hypoventilation syndrome (Acute) Restrictive lung disease secondary to obesity (Acute) Community acquired pneumonia, bilateral (Acute) Rib fractures (Acute) Pleural effusion (Acute) Dermatitis, unspecified (Acute) Acute and chronic respiratory failure with hypoxia (Acute) Afib (Acute) Alcohol use disorder, severe, dependence (Acute) Trachea displaced (Acute) S/P percutaneous endoscopic gastrostomy (PEG) tube placement (Acute) On valproate therapy (Acute) Lower back pain (Acute) Screening for colon cancer (Acute) Screening PSA (prostate specific antigen) (Acute) Diabetes (Acute) Chronic lower back pain (Acute) Weakness of both lower extremities (Acute) Nerve root compression (Acute) Effusion, right knee (Acute) MJ (obstructive sleep apnea) (Acute) Increased ammonia level (Acute) CHF (congestive heart failure) (Acute) Acute alteration in mental status (Acute) Chronic respiratory failure (Acute) Alcohol withdrawal (Acute) Acute CHF (Acute) Screening for prostate cancer (Acute) Microhematuria (Acute) Elevated serum creatinine (Acute) Cirrhosis (Acute) Hypoventilation associated with obesity syndrome (Acute) Encephalopathy chronic (Acute) Morbid obesity (Acute) Left atrial enlargement (Acute) Diabetes (Acute) Afib (Acute) Fever of unknown origin (Acute) HTN (hypertension) (Acute) Alcohol dependency (Acute) Seroma due to trauma (Acute) Past Medical History Medical History Afib Alcohol dependency Anxiety Arthritis CHF (congestive heart failure) Cirrhosis CKD (chronic kidney disease) stage 3, GFR 30-59 ml/min Depression Diabetes Diastolic CHF, acute on chronic Encephalopathy chronic Fever of unknown origin Gout History of cardioversion HTN (hypertension) Hypoventilation associated with obesity syndrome Left atrial enlargement Morbid obesity Obesity (BMI 35.0-39.9 without comorbidity) Obstructive sleep apnea (adult) (pediatric) Seroma due to trauma Wernicke encephalopathy Family History Family History Father Lung cancer Mother No problems noted. Maternal Aunt History of heart attack Sister No problems noted. Brother Cancer of kidney Brother No problems noted. Brother No problems noted. Brother No problems noted. Brother No problems noted. Brother No problems noted. Other Substance use disorder Family history of problems with anesthesia: No Surgical History History of Problems with Anesthesia: No Social History Social History Household Members: Spouse Housing: House Do you presently have visiting nurse or other home services: No Unable to assess alcohol history related to: Unknown Alcohol intake: current Alcohol intake frequency: does not drink Alcohol type: hard liquor Patient Tobacco Use Status: Current everyday Tobacco user Tobacco use type: Cigarette Cigarette Packs Per Day: 1 Cigarettes Per Day: 20 Smoked in Last 30 Days: Yes e-Cigarette/Vaping Use: Never Used Second Hand Smoke Exposure: Yes Use of substances other than those prescribed or required for medical reasons: No Have you been hit, kicked, punched, or otherwise hurt by someone within the past year? If so, by whom?: No Are you DNR?: No Advance Directives: Yes (states is & brother) Advance Directives Information Provided: Yes Advance Directives on File: Yes Advance Directives Date on File: 06/05/20 Recently lost weight without trying: No service: Yes Current occupational status: unemployed Cognitive needs: No Hearing needs: No Vision needs: No Meds Allergies Allergy/AdvReac Type Severity Reaction Status Date / Time No Known Allergies Allergy Verified 03/25/22 11:51 [No Known Allergies*] Home Medications Medication Instructions Recorded Confirmed Last Taken Type albuterol sulfate 90 mcg/actuation 2 puff inhalation QID 10/14/21 04/09/22 Unknown History aerosol inhaler Exam Exam Date and Time: April 12, 2022 1445 Height,Weight and Vital Signs: Height 6 ft 1 in Weight 136.531 kg Pertinent Lab Results Pertinent Lab Results: Laboratory Tests 03/08/22 04/07/22 14:51 13:00 WBC 11.9 H Hgb 16.0 Hct 50.5 Plt Count 245 D Sodium 138 Potassium 4.6 Chloride 100 Carbon Dioxide 27 BUN 20 H Creatinine 1.64 H Laboratory Tests 03/25/22 11:38 Total Bilirubin 0.6 AST 18 ALT 15 Alkaline Phosphatase 117 Narrative Narrative: ECHO 03/2022 Conclusions: - The left ventricular systolic function is normal.? The ? calculated ejection fraction is 62% by biplane method. ? - Bubble study is poor quality due to body habitus. Inadequate to assess for intracardiac or intrapulmonary shunting.? - There is mild aortic valve stenosis. ? - Mild pulmonary hypertension is present.? ? ? EKG 02/2022 Vent. Rate : 072 BPM ? ? Atrial Rate : 000 BPM ?? P-R Int : 000 ms? QRS Dur : 090 ms ? ? QT Int : 398 ms ? ? ? P-R-T Axes : 000 074 050 degrees ?? QTc Int : 435 ms ? Atrial fibrillation Low voltage QRS Abnormal ECG When compared with ECG of 08-MAR-2022 18:01, No significant change was found CT abdomen pelvis wo con 07/2021 IMPRESSION: 1.? No evidence of an acute traumatic injury in the chest abdomen or pelvis. 2.? No significant hematomas are seen in the chest abdomen or pelvis secondary to the patient's anticoagulation. 3.? Incidental note made of slight increase in size of small left effusion and new small right effusion, old right-sided rib fractures, mesenteric panniculitis unchanged, cirrhotic liver with ascites and other findings described above. Assessment and Plan Assessment Anesthesia Assessment: Chart Reviewed Final Anesthetic Review Family History of Problems with Anesthesia: No History of Problems with Anesthesia: No Documented by User: Vincenzo Barron MD 04/15/22 14:11 [facility] Past Medical History Medical History Afib Alcohol dependency Anxiety Arthritis CHF (congestive heart failure) Cirrhosis CKD (chronic kidney disease) stage 3, GFR 30-59 ml/min Depression Diabetes Diastolic CHF, acute on chronic Encephalopathy chronic Fever of unknown origin Gout History of cardioversion HTN (hypertension) Hypoventilation associated with obesity syndrome Left atrial enlargement Morbid obesity Obesity (BMI 35.0-39.9 without comorbidity) Obstructive sleep apnea (adult) (pediatric) Seroma due to trauma Wernicke encephalopathy Family History Family History Father Lung cancer Mother No problems noted. Maternal Aunt History of heart attack Sister No problems noted. Brother Cancer of kidney Brother No problems noted. Brother No problems noted. Brother No problems noted. Brother No problems noted. Brother No problems noted. Other Substance use disorder Social History Social History Household Members: Spouse Housing: House Do you presently have visiting nurse or other home services: No Unable to assess alcohol history related to: Unknown Alcohol intake: current Alcohol intake frequency: does not drink Alcohol type: hard liquor Patient Tobacco Use Status: Current everyday Tobacco user Tobacco use type: Cigarette Cigarette Packs Per Day: 1 Cigarettes Per Day: 20 Smoked in Last 30 Days: Yes e-Cigarette/Vaping Use: Never Used Second Hand Smoke Exposure: Yes Use of substances other than those prescribed or required for medical reasons: No Have you been hit, kicked, punched, or otherwise hurt by someone within the past year? If so, by whom?: No Are you DNR?: No Advance Directives: Yes (states is & brother) Advance Directives Information Provided: Yes Advance Directives on File: Yes Advance Directives Date on File: 06/05/20 Recently lost weight without trying: No service: Yes Current occupational status: unemployed Cognitive needs: No Hearing needs: No Vision needs: No Meds Allergies Allergy/AdvReac Type Severity Reaction Status Date / Time No Known Allergies Allergy Verified 03/25/22 11:51 [No Known Allergies*] Home Medications Medication Instructions Recorded Confirmed Last Taken Type albuterol sulfate 90 mcg/actuation 2 puff inhalation QID 10/14/21 04/09/22 Unknown History aerosol inhaler Exam Airway Mallampati Class: III TM Dist: >3cm Neck ROM: Full Loose/Missing/Broken Teeth: Yes (Poor dentition. Teeth broken/decayed) Assessment and Plan Assessment Anesthesia Assessment: Anesthesia Plan Discussed Final Anesthetic Review NPO: Yes ASA Class: IV Final Preanesthetic Review: No Changes in Pt Med Stat, Meds/Allgs Chart Reviewed, Consent Obtained/Reviewed and Anes Risks/Benef Reviewed Patient Risk: High Procedure Risk: Low Anesthetic Plan Anesthetic Plan: MAC: Disposition: Standard PACU
[2022-04-15 11:57] LABS: Glucose, Whole Blood 114 mg/dL (60-115)
[2022-04-15 12:06] VITALS: BP 162/76; PULSE 100; RESP 18; TEMP 36.6; O2SAT 95
[2022-04-15] MEDS: Lactated Ringers 1,000 ML 50 ML IVCONT (12:24)
[2022-04-15 12:26] LABS: INTERNATIONAL NORM RATIO 1.1 (0.9-1.1); Prothrombin Time 12.8 SEC (10.0-13.1)
--- NOTE | 2022-04-15 13:16 | MHC.SHP ---
Pre-Procedural Eval Section A Date of Service: 04/15/22 Section B Chief Complaint: Variceal screening, anemia Details of Present Illness: 62y.o M with decompensated etOH cirrhosis here for EGD and colonoscopy Relevant Social History: Alcohol Use Present Medications: see Short Stay Collaborative assessment Medical History: Significant History (This is a 62-year-old gentleman with past medical history of paroxysmal atrial fibrillation on Eliquis, diastolic heart failure, mild pulmonary hypertension, morbid obesity complicated by MJ, type 2 diabetes, osteoarthritis, hypoxic hypercapnic respiratory failure with hx of cardiac arrest 2019) Allergies: Allergies Allergy/AdvReac Type Severity Reaction Status Date / Time No Known Allergies Allergy Verified 03/25/22 11:51 [No Known Allergies*] Review of Systems Review of Systems Comment: 10 point ROS negative Exam Exam Comment: Gen appear: No acute distress, well nourished HEENT: no icterus, Chest: No overt resp distress Abd: soft, nontender, nondistended Psych: Stable affect, answering questions appropriately Neuro: A/Ox3 noted to move all extremities spontaneously Ext: no peripheral edema Plan Diagnosis/Plan: Unchanged I have reviewed the history and physical and performed a pertinent physical examination on my patient. No changes have occurred unless specified.
--- NOTE | 2022-04-15 13:21 | P.OP_ITS ---
Operative Note Operative Note Date of Service: 04/15/22 Narrative: Procedure: Esophagogastroduodenoscopy and colonoscopy Endoscopist: Magdalena Fish MD Indication: Variceal screening, anemia Anesthesia Provider: Dr Vincenzo Barron Anesthesia Type: MAC EGD Procedure:?? The procedure, indications, preparation and potential complications were reviewed with the patient, who indicated understanding and gave written informed consent to proceed. A physical exam was performed. The endoscope was introduced through the mouth, and advanced to the second part of duodenum. The mucosa was carefully examined on slow withdrawal of the endoscope. The patient tolerated the procedure well. There were no immediate complications.? EGD Findings:? ? Esophagus:? Normal mucosa noted in the entire esophagus. The Z line was at 40 cm. ? Stomach:? Normal mucosa was noted in the stomach. Small hiatal hernia was noted on retroflexion. ? Duodenum:? Normal mucosa was noted in the whole of the examined duodenum. Colonoscopy Procedure: The patient was then positioned for colonoscopy. A digital rectal exam was performed which was normal. The colonoscope was then inserted through the anus and advanced through the colon to the cecum at 85 cm. Mucosa was carefully examined under high definition white light as the instrument was slowly withdrawn in a retrograde panoramic fashion. Retroflexion was performed in rectum. The procedure was not difficult. There were no immediate obvious complications. The quality of the prep was BBPS: 3+3+3 = excellent Withdrawal time 31 minutes. Limitations: No limitations. Findings: Mucosa: Normal to cecum and terminal ileum. Protruding lesions: * 1 sessile polyp of size 3 mm in descending colon. Cold snare polypectomy was performed. The polyp was completely removed and retrieved. * 1 sessile polyp of size 4 mm in sigmoid colon. Cold snare polypectomy was performed. The polyp was completely removed and retrieved. * 4 sessile polyp of size 3-10 mm in rectum. Cold snare polypectomy was performed. The polyp was completely removed and retrieved. * 1 semipedunculated polyp of size 12 mm in rectum. Cold snare polypectomy was performed. The polyp was completely removed and retrieved. One endoclip was placed at the stalk to reduce the risk of bleeding as patient is on anticoagulation. * Medium internal hemorrhoids without stigmata of recent bleeding. Excavated lesions: * Moderate diverticulosis of whole colon. Impressions:? * Hiatal hernia otherwise normal upper endoscopy. * Normal colon mucosa * Total of 7 polyps removed from descending, sigmoid colon and rectum. There were also a few other hyperplastic appearing polyps in th rectum that were not removed. * Internal hemorrhoids Recommendations:?? * Follow biopsy results. Our office will call or send a letter with results within 7-10 days. * Resume anticoagulation after 2 days. * Avoid NSAIDs and smoking. * Repeat colonoscopy in 3 years if at least 3 polyps are adenomas. * Follow up in GI office as scheduled. Above has been reviewed with the patient. Educational hand outs were provided at discharge.
[2022-04-15 14:37] VITALS: BP 113/62; PULSE 110; RESP 18; TEMP 36.6; O2SAT 93
[2022-04-15 14:51] VITALS: BP 107/58; PULSE 92; RESP 18; TEMP 36.6; O2SAT 95
== END 2022-04-15 15:10 | disposition home or self-care (01) ==
PROVIDERS: Nurse Practitioner; PCP Nurse Practitioner Family; Visit Provider Internal Medicine
PROC: (CPT 45385; principal; 2022-04-15 12:50)
DX: D64.9 Anemia, unspecified (principal); D12.2 Benign neoplasm of ascending colon; D12.8 Benign neoplasm of rectum; K57.30 Diverticulosis of large intestine without perforation or abscess without bleeding; K63.5 Polyp of colon; K64.8 Other hemorrhoids; K44.9 Diaphragmatic hernia without obstruction or gangrene; G47.33 Obstructive sleep apnea (adult) (pediatric); F10.21 Alcohol dependence, in remission; E11.22 Type 2 diabetes mellitus with diabetic chronic kidney disease; I13.0 Hypertensive heart and chronic kidney disease with heart failure and stage 1 through stage 4 chronic kidney disease, or unspecified chronic kidney disease; N18.30 Chronic kidney disease, stage 3 unspecified; I50.33 Acute on chronic diastolic (congestive) heart failure; I27.20 Pulmonary hypertension, unspecified; K72.90 Hepatic failure, unspecified without coma; K74.60 Unspecified cirrhosis of liver; E88.81 Metabolic syndrome and other insulin resistance; I48.91 Unspecified atrial fibrillation; R54 Age-related physical debility; E66.01 Morbid (severe) obesity due to excess calories; Z68.39 Body mass index [BMI] 39.0-39.9, adult; Z79.84 Long term (current) use of oral hypoglycemic drugs; Z79.01 Long term (current) use of anticoagulants; Z79.899 Other long term (current) drug therapy; F17.210 Nicotine dependence, cigarettes, uncomplicated
CPT/HCPCS: 45385; 43235; 36415; 82947; 85610; 88305; J2370

== ENCOUNTER 2022-04-20 09:56 | Outpatient (REF) | payer MEDICARE, OTHER, SELFPAY ==
--- NOTE | ~2022-04-20 | US_ITS ---
EXAMINATION: US duplex arterial venous comp CLINICAL INFORMATION: Cirrhosis COMPARISON: CT from 08/06/2019 TECHNIQUE: Real-time imaging of the abdominal viscera. Color and spectral Doppler evaluation of the hepatic vasculature. FINDINGS: LIVER: Liver is echogenic consistent with a history of underlying cirrhosis. Long length measures 18.9 cm. No focal liver lesion. No intrahepatic biliary duct dilatation. SPLENIC VEIN: Patent with normal waveforms. HEPATIC VEINS: Patent with normal waveforms. PORTAL VEINS: Patent with normal waveforms and hepatopetal flow. HEPATIC ARTERIES: Normal upstroke and diastolic flow. INFERIOR VENA CAVA: Patent with normal waveforms. GALLBLADDER: Normal. The gallbladder is physiologically distended without evidence of stones, sludge, polyps, wall thickening or pericholecystic fluid. COMMON BILE DUCT: Normal in caliber measuring 0.4 cm in diameter. PANCREAS: Normal. The visualized pancreatic head and body are normal in appearance. The remainder of the pancreas is obscured from visualization by the overlying bowel gas. RIGHT KIDNEY: Normal. No hydronephrosis. No renal calculi or focal parenchymal lesions. The kidney measures 11.7 cm in maximum dimension. LEFT KIDNEY: Normal. No hydronephrosis. No renal calculi. The kidney measures 11.4 cm in maximum dimension. There is a anechoic cyst in the lower pole measuring 0.8 x 0.6 x 0.6 cm SPLEEN: The spleen measures 13.3 cm in maximum dimension. ABDOMINAL AORTA: The visualized proximal segment is normal in caliber. INFERIOR VENA CAVA: Visualized portions are normal. FREE FLUID: Small volume ascites in the right upper quadrant. US/US duplex arterial venous comp IMPRESSION: Echogenic liver with mild hepatomegaly with a history of underlying cirrhosis. No focal hepatic lesions. Hepatic vasculature is patent with normal waveforms. Splenomegaly Left renal cyst
--- NOTE | ~2022-04-20 | US_ITS ---
EXAMINATION: US ABDOMEN COMPLETE and abdominal Doppler exam CLINICAL INFORMATION: Unspecified cirrhosis of liver. COMPARISON: CT abdomen and pelvis 08/06/2021. Ultrasound kidneys 06/01/2020 and 04/29/2019. TECHNIQUE: Real-time imaging of the abdominal viscera. Technically difficult study secondary to body habitus. FINDINGS: PANCREAS: Not well visualized. ABDOMINAL AORTA: Not well visualized. There is evidence of atherosclerotic disease. INFERIOR VENA CAVA: Visualized portions are normal. LIVER: Liver echotexture is increased and heterogeneous suggestive of hepatocellular disease. Liver contour is slightly irregular suggestive of a mild cirrhotic change. No focal hepatic lesion. There is no intrahepatic biliary duct dilatation seen. GALLBLADDER: The gallbladder is physiologically distended without evidence of stones, sludge, polyps, or pericholecystic fluid. There is borderline gallbladder wall thickening measuring 4 mm. This may be related to liver disease. COMMON BILE DUCT: Normal in caliber measuring 0.4 cm in diameter. RIGHT KIDNEY: Normal. No hydronephrosis. No renal calculi or focal parenchymal lesions. The kidney measures 11.3 cm in maximum dimension. LEFT KIDNEY: There is a 8 x 7 x 6 mm peripelvic cyst in the lower pole. No hydronephrosis or renal calculi. The kidney measures 11.4 cm in maximum dimension. SPLEEN: Upper normal in size. The spleen measures 12.5 cm in maximum dimension. FREE FLUID: None. Abdominal Doppler exam: The extrahepatic, main, right and left portal veins are patent with appropriate hepatopedal flow. The main, right and left hepatic arteries are patent with normal waveforms and peak systolic velocities. Main hepatic artery peak systolic velocity is 99 cm/s. The middle, right and left hepatic veins are patent with normal waveform. The IVC is patent with normal waveform. The splenic vein is patent with appropriate hepatopedal flow. No ascites or collateral vessels are seen. US/US abdomen complete IMPRESSION: Limited exam due to patient body habitus. Mild cirrhotic changes of the liver. No focal liver lesion. Normal liver Doppler exam. Limited visualization of the pancreas and aorta. Small right renal cyst.
[2022-04-20 14:02] LABS: MANUAL DIFF FLAG NO
[2022-04-20 14:11] LABS: Basophils Absolute Auto 0.1 X10*3/uL (0.0-0.2); Basophils Percent Auto 0.9 % (0-2); Eosinophils Absolute Auto 0.4 X10*3/uL (0.0-0.4); Eosinophils Percent Auto 2.8 % (0-4); Hemoglobin 15.2 g/dl (14.0-18.0); Imm Gran Abs Auto 0.06 X10*3/uL (0.00-0.03); Imm Gran Pct Auto 0.4 % (0.0-0.4); Lymphocytes Absolute Auto 3.7 X10*3/uL (1.2-4.9); Lymphocytes Percent Auto 26.5 % (20-40); Mean Corpuscular HGB Conc 32.3 g/dl (31.0-36.0); Mean Corpuscular Hemoglobin 28.5 pg (27.0-33.0); Mean Platelet Volume 11.4 fL (9.4-12.4); Monocytes Absolute Auto 1.2 X10*3/uL (0.1-1.2); Monocytes Percent Auto 8.5 % (2-11); Neutrophils Absolute Auto 8.6 x10*3/uL (2.0-8.3); Neutrophils Percent Auto 60.9 % (45-73); Platelet Count 233 X10*3/uL (160-400); Red Blood Count 5.34 X10*6/uL (4.60-5.80); Red Cell Distribution Width 16.2 % (11.0-16.0); White Blood Count 14.1 X10*3/uL (4.8-10.8)
[2022-04-20 14:26] LABS: Alanine Aminotransferase 9 U/L (0-40); Alkaline Phosphatase 108 U/L (39-117); Anion Gap 17 (12-20); Aspartate Amino Transferase 16 U/L (5-37); Bilirubin Total 0.4 mg/dL (0.0-1.0); Blood Urea Nitrogen 16 mg/dL (9-16); Calcium 9.7 mg/dL (8.4-10.2); Carbon Dioxide 28 mmol/L (22-29); Chloride 100 mmol/L (96-108); Estimated Glomerular Filt Rate 42; Glucose Random 120 mg/dL (60-115); Potassium 4.6 mmol/L (3.3-5.1); Sodium 140 mmol/L (135-145)
[2022-04-20 16:33] LABS: Urine Cytology See Pathology rpt
[2022-04-20 16:41] LABS: Appearance Urine Clear; Color Urine Yellow; Glucose Urine UA Negative (Negative); Leukocyte Esterase Urine Large (3+) (Negative); Nitrite Urine Positive (Negative); UMIC TRIGGER UACC YES; Urine Blood Moderate (2+) (Negative); Urine Ketones Negative (Negative); Urine Protein Negative (Neg-Trace)
[2022-04-20 16:46] LABS: Bacteria Urine 4+ (None Seen); Hyaline Casts Urine 0-2 /LPF (0-2); Squamous Epithelial Cell Urine 0-2 /HPF (0-2); UACC Culture Trigger YES; WBC Urine >50 /HPF (0-5)
== END 2022-04-20 09:57 | disposition home or self-care (01) ==
LOC: HO.HMGCX 09:56
PROVIDERS: Absent Provider Nurse Practitioner Family; PCP Nurse Practitioner Family; Visit Provider Internal Medicine
DX: K74.60 Unspecified cirrhosis of liver (principal); R31.29 Other microscopic hematuria
CPT/HCPCS: 36415; 76700; 80053; 81001; 85025; 87086; 87088; 87186; 88112; 93975

== ENCOUNTER → 2022-04-27 15:05 | Outpatient (BNVA) | payer MEDICARE, OTHER, SELFPAY | PROVIDERS: PCP Nurse Practitioner Family; Visit Provider Internal Medicine | DX: K72.90 Hepatic failure, unspecified without coma (principal); K74.60 Unspecified cirrhosis of liver; F10.21 Alcohol dependence, in remission; K76.82 Hepatic encephalopathy; E88.81 Metabolic syndrome and other insulin resistance; E66.01 Morbid (severe) obesity due to excess calories; Z86.010 Personal history of colon polyps; Z68.39 Body mass index [BMI] 39.0-39.9, adult | CPT/HCPCS: 99212 ==

== ENCOUNTER → 2022-05-25 12:25 | Outpatient (BNVA) | payer MEDICARE, OTHER, SELFPAY | PROVIDERS: PCP Nurse Practitioner Family; Referring Provider Nurse Practitioner Family; Visit Provider Internal Medicine Cardiovascular Disease | DX: I48.19 Other persistent atrial fibrillation (principal); I50.89 Other heart failure | CPT/HCPCS: 99212 ==

== ENCOUNTER 2022-07-21 12:50 | Outpatient (REF) | payer MEDICARE, OTHER, SELFPAY ==
[2022-07-21 17:30] LABS: Urine Cytology See Pathology rpt
== END 2022-07-21 12:51 | disposition home or self-care (01) ==
LOC: HO.LAB 12:50
PROVIDERS: PCP Nurse Practitioner Family; Visit Provider Nurse Practitioner Family
DX: R31.29 Other microscopic hematuria (principal); R35.1 Nocturia; N40.0 Benign prostatic hyperplasia without lower urinary tract symptoms
CPT/HCPCS: 88112; 99202

== ENCOUNTER 2022-09-28 15:44 | Outpatient (REF) | payer MEDICARE, OTHER, MEDICAID, SELFPAY ==
--- NOTE | ~2022-09-28 | CT_ITS ---
EXAMINATION: CT ABDOMEN AND PELVIS WITHOUT AND WITH CONTRAST CLINICAL INFORMATION: Microscopic hematuria COMPARISON: Previous abdominal ultrasound March [address] of the abdomen and pelvis July 2021 TECHNIQUE: Noncontrast CT of the abdomen and pelvis is performed followed by split bolus contrast-enhanced images using 100 mL Omnipaque 350 contrast.? Postcontrast imaging is performed during the combined nephrogram and excretion phase. Sagittal and coronal reformatted images were obtained on the technologist's workstation for both the precontrast and postcontrast phases. This CT examination was performed using dose optimization techniques as appropriate, variously including the following: *Automated exposure control *Adjustment of mA and/or kV according to patient size (this includes techniques or standardized protocols for targeted exams where dose is matched to indication/reason for exam; i.e. extremities or head) *Use of iterative reconstruction technique DLP: 1585 mGy-cm FINDINGS: LUNG BASES: Enlarged heart. Subsegmental atelectasis at the left lung base. Tiny left pleural effusion or pleural thickening. LIVER, GALLBLADDER, AND BILIARY TREE: The liver is slightly enlarged, right lobe measuring 18 cm in length. There is hypertrophy of the left lobe and caudate lobe. The contour of the liver is slightly irregular. Findings are questionable for mild cirrhosis. No focal hepatic lesion or biliary ductal dilatation is present. The gallbladder is unremarkable with no evidence of radiopaque gallstones, gallbladder wall thickening, or obvious pericholecystic inflammatory changes. PANCREAS: Unremarkable. SPLEEN: Unremarkable. ADRENAL GLANDS: Unremarkable. KIDNEYS AND URETERS: Question area of renal cortical thinning or scarring in the upper pole of the right kidney No hydronephrosis, hydroureter, or calculi seen. The collecting systems are normal. The ureters are normal. There is a small low-attenuation lesion in the upper pole of the left kidney measuring 5 mm. The characterize due to small size but probably represents a cyst. BLADDER: Bladder is empty and not well evaluated on this exam. GASTROINTESTINAL TRACT: The small and large bowel are unremarkable. The appendix is unremarkable. ABDOMINAL WALL: Diastasis of the rectus muscles and small umbilical hernia LYMPH NODES: Shotty retroperitoneal lymphadenopathy. No enlarged lymph nodes. No ascites. VASCULAR: Atherosclerotic disease. No aneurysm PELVIC VISCERA: Unremarkable. OSSEUS STRUCTURES: Degenerative changes of the spine. CT/CT urogram IMPRESSION: No cause of hematuria seen. The bladder is empty and not evaluated on this exam. 5 mm low-attenuation lesion in the upper pole of the left kidney difficult to definitively characterize due to size but may represent a cyst. Probable mild cirrhotic changes of the liver.
[2022-09-28] MEDS: iohexoL 350 MG/ML 100 ML INFUS..BTL IV (16:28)
[2022-09-29 09:05] LABS: Creatinine POC 1.6 mg/dL (0.5-1.4); GFR POC 46
== END 2022-09-28 15:45 | disposition home or self-care (01) ==
LOC: HO.CT 15:44
PROVIDERS: Visit Provider Nurse Practitioner Family
DX: R31.29 Other microscopic hematuria (principal)
CPT/HCPCS: 74178; 82565; Q9967

== ENCOUNTER 2023-03-27 23:59 | Inpatient (IN) | payer MEDICARE, OTHER, MEDICAID, SELFPAY ==
--- NOTE | ~2023-03-27 | XR_ITS ---
EXAMINATION: XR CHEST CLINICAL INFORMATION: Dyspnea COMPARISON: 01/24/2022 TECHNIQUE: Frontal view of the chest was obtained. FINDINGS: The lungs are clear with no focal consolidation. There is suggestion of central peribronchial thickening. No evidence of pneumothorax, pulmonary edema, or pleural effusions. Cardiac silhouette remains enlarged. No acute osseous findings are seen. XR/XR chest 1V IMPRESSION: Suggestion of central peribronchial thickening without focal consolidation. Cardiac silhouette remains enlarged.
--- NOTE | ~2023-03-27 | MR_ITS ---
EXAMINATION: MRI LEFT ANKLE WITHOUT CONTRAST CLINICAL INDICATION: Erosive changes. Left ankle pain. COMPARISON: Radiographs dated 03/28/2023 and MRI dated 10/11/2007. TECHNIQUE: Multiplanar MR imaging was obtained through the left ankle without contrast material on a 1.5 Ariana magnet. The patient refused contrast. FINDINGS: ACHILLES TENDON: Achilles tendon is borderline thickened at its mid substance (8 mm) with anterior convexity as can be seen with mild tendinosis. Mild peritendinous edema. OTHER TENDONS: There is marked tibialis anterior tendinosis at the level of the ankle joint with a small associated longitudinal partial tear measuring approximately 1.5 cm in length. There is mild associated tenosynovitis and surrounding peritendinous edema in this region. Extensor tendons are otherwise unremarkable. Mild posterior tibial and peroneal tenosynovitis. There is mild peroneus brevis and peroneus longus tendinosis without tears. LIGAMENTS: Anterior talofibular ligament appears diminutive and irregular, likely the result of an old partial tear. No acute tears. Calcaneofibular, posterior talofibular, and distal tibiofibular ligaments appear intact. Deltoid and spring ligaments are intact. BONE AND ARTICULAR CARTILAGE: Small marginal osteophytes are present at the talocrural joint. No chondral defects. No significant subchondral marrow signal abnormalities. Minimal osteoarthritis in the posterior facet of subtalar joints along its anteromedial margin. There is a small osseous fragment at the dorsal margin of the anterior process of the calcaneus which may correspond to an old avulsion injury or an accessory ossicle. Minimal arthrosis in the midfoot, most notably at the 2nd through 4th TMT joints. JOINT FLUID AND SOFT TISSUES: There is a small ankle joint effusion with mild synovitis. No appreciable erosive changes are identified on MRI. There is generalized soft tissue swelling and subcutaneous edema at the ankle, most pronounced anteriorly. There is diffuse atrophy and fatty replacement of the intrinsic foot musculature. PLANTAR FASCIA: Thickened without significant associated edema signal. SINUS TARSI AND TARSAL TUNNEL: Normal. MR/MR ankle LT wo con IMPRESSION: 1. Marked tibialis anterior tendinosis with a small longitudinal partial tear at the level of the ankle joint. Mild associated tenosynovitis. 2. Small ankle joint effusion with mild synovitis. No appreciable erosive changes are identified on MRI. 3. Mild multifocal arthrosis in the ankle and midfoot. 4. Mild Achilles tendinosis. 5. Diffuse soft tissue swelling and subcutaneous edema at the ankle, most pronounced anteriorly. 6. Mild peroneal tendinosis and tenosynovitis. Mild posterior tibial tenosynovitis. 7. Diffuse atrophy and fatty replacement of the intrinsic foot musculature.
--- NOTE | ~2023-03-27 | XR_ITS ---
EXAMINATION: XR ANKLE, LEFT CLINICAL INFORMATION: Left ankle pain. COMPARISON: 01/02/2019 TECHNIQUE: AP, lateral, and mortise views of the left ankle. FINDINGS: There is smooth erosive change along the medial aspect of the talus with associated soft tissue swelling. There is moderate diffuse ankle soft tissue swelling. Ankle mortise is maintained. The talar dome is intact. No acute displaced fracture. XR/XR ankle LT min 3V IMPRESSION: Erosive change medial talus with associated soft tissue prominence. MRI left ankle may be considered for further characterization.
[2023-03-28] VITALS (15 sets, daily range): BP systolic 121–149; BP diastolic 59–84; PULSE 79–121; RESP 11–20; TEMP 36.8–37.3; O2SAT 93–96; BMI 42.0
--- NOTE | 2023-03-28 | ECG_ITS ---
Test Reason : CHEST PAIN Blood Pressure : / mmHG Vent. Rate : 098 BPM Atrial Rate : 000 BPM P-R Int : 000 ms QRS Dur : 082 ms QT Int : 354 ms P-R-T Axes : 000 073 033 degrees QTc Int : 451 ms Atrial fibrillation Low voltage QRS Abnormal ECG When compared with ECG of 08-MAR-2022 20:51, No significant change was found Referred By: Generic ED Physician Electronically Signed By:BERNARDINO ROWE
[2023-03-28 00:21] LABS: MANUAL DIFF FLAG NO
[2023-03-28 00:22] LABS: Basophils Absolute Auto 0.1 X10*3/uL (0.0-0.2); Basophils Percent Auto 0.5 % (0-2); Eosinophils Absolute Auto 0.2 X10*3/uL (0.0-0.4); Eosinophils Percent Auto 1.1 % (0-4); Hematocrit 44.4 % (42.0-52.0); Hemoglobin 14.4 g/dl (14.0-18.0); Imm Gran Abs Auto 0.07 X10*3/uL (0.00-0.03); Imm Gran Pct Auto 0.5 % (0.0-0.4); Lymphocytes Absolute Auto 2.9 X10*3/uL (1.2-4.9); Mean Corpuscular HGB Conc 32.4 g/dl (31.0-36.0); Mean Corpuscular Hemoglobin 28.9 pg (27.0-33.0); Mean Platelet Volume 10.2 fL (9.4-12.4); Monocytes Absolute Auto 1.3 X10*3/uL (0.1-1.2); Monocytes Percent Auto 8.9 % (2-11); Neutrophils Absolute Auto 10.1 x10*3/uL (2.0-8.3); Platelet Count 198 X10*3/uL (160-400); Red Blood Count 4.99 X10*6/uL (4.60-5.80); Red Cell Distribution Width 13.6 % (11.0-16.0); White Blood Count 14.6 X10*3/uL (4.8-10.8)
[2023-03-28 00:38] LABS: Alanine Aminotransferase 10 U/L (0-40); Alkaline Phosphatase 112 U/L (39-117); Anion Gap 20 (12-20); Aspartate Amino Transferase 21 U/L (5-37); Bilirubin Direct 0.3 mg/dL (0.0-0.5); Bilirubin Total 0.5 mg/dL (0.0-1.0); Blood Urea Nitrogen 13 mg/dL (9-16); Calcium 9.5 mg/dL (8.4-10.2); Carbon Dioxide 22 mmol/L (22-29); Chloride 101 mmol/L (96-108); Creatinine Clr Calc Pharmacy 76.8; Estimated Glomerular Filt Rate 48; Glucose Random 109 mg/dL (60-115); Lipase 56 U/L (8-78); Potassium 4.6 mmol/L (3.3-5.1); Sodium 138 mmol/L (135-145); Total Protein 8.6 g/dL (6.5-8.0)
[2023-03-28 00:45] LABS: Troponin-I High Sensitivity 2.9 ng/L (<3.5-35.0)
--- NOTE | 2023-03-28 02:30 | PC.NURSE ---
Pt ambulated in to room with cane, pt reporting constantly increasing substernal chest pain radiates to back, pain is worse on inspiration. Pt reports dizziness when standing, and burning on urination. IV line placed in RAC, Meds given per MAR. Pt speaking in full sentences, calm and cooperative, SpO2:95 RA, RR:20 lungs sounds clear bilaterally, bilateral lower leg edema noted.
[2023-03-28 02:38] LABS: Ethanol 118 mg/dL; Magnesium 1.3 mg/dL (1.6-2.6)
[2023-03-28] MEDS: Magnesium Sulfate/H2O 2 GM/50 ML PIGGYBACK IV (03:00)
[2023-03-28 03:14] LABS: B Type Natriuretic Peptide 349 pg/mL (<100)
--- NOTE | 2023-03-28 04:04 | PC.NURSE ---
Pt able to stand at bedside to use urinal, urine sample collected and sent to lab.
[2023-03-28 04:12] LABS: Appearance Urine Clear; Color Urine Dark Yellow; Glucose Urine UA Negative (Negative); Leukocyte Esterase Urine Moderate (2+) (Negative); Nitrite Urine Positive (Negative); PH 5.5 (5.0-9.0); UMIC TRIGGER UACC YES; Urine Blood Moderate (2+) (Negative); Urine Ketones Trace mg/dL (Negative); Urine Protein 100 (2+) mg/dL (Neg-Trace)
[2023-03-28 04:24] LABS: Bacteria Urine 1+ (None Seen); UACC Culture Trigger YES; WBC Clumps Urine Present; WBC Urine 21-50 /HPF (0-5)
--- NOTE | 2023-03-28 05:52 | MHC.EDTECH ---
Repeat troponin obtained and sent to lab, hourly rounds and vitals completed
[2023-03-28 06:13] LABS: Troponin-I High Sensitivity < 2.7 ng/L (<3.5-35.0)
--- NOTE | 2023-03-28 06:37 | ED_ITS ---
HPI - Chest Pain General Chief Complaint: Chest Pain Stated Complaint: SOB, Chest Pain, Abdominal Pain Time Seen by Provider: 03/28/23 06:37 Source: patient, RN notes reviewed and old records reviewed Mode of arrival: ambulatory History of Present Illness HPI narrative: 63-year-old male with a past medical history encephalopathy, morbid obesity, MJ, CKD, diabetes, ETOH abuse, CHF, AFib on Eliquis, gouty arthritis, HTN, presenting to the ED complaining of chest pain, shortness of breath, nonbloody diarrhea, and dysuria x few weeks. Also reports acute on chronic left ankle pain, reports similar symptoms in the past with gouty arthritis. Admits to frequent falls at home due to arthritis, which has been occurring for several years. Denies recent head injury. Also reports mild abdominal discomfort. Denies fever/chills, nausea/vomiting, hematuria, flank pain MD complaint: chest pain Related Data Home Medications Medication Instructions Recorded Confirmed cyclobenzaprine 10 mg tablet 10 mg PO BEDTIME 06/30/22 03/28/23 Previous Rx's Medication Instructions Recorded blood-glucose meter (FreeStyle #1 ea 09/03/20 Lite Meter kit) lancets 28 gauge (FreeStyle #100 ea 02/02/21 Lancets) metformin 850 mg tablet 850 mg PO DAILY #90 tabs 02/22/22 FreeStyle David 2 [place] (flash #1 ea 07/03/22 glucose scanning reader) FreeStyle David 2 Sensor (flash #1 ea 07/03/22 glucose sensor) terazosin 5 mg capsule 5 mg PO BEDTIME 90 days #90 caps 07/21/22 albuterol sulfate 90 mcg/actuation 2 puff inhalation QID #8.5 grams 07/28/22 aerosol inhaler acetaminophen 650 mg 650 mg PO Q12H PRN pain 30 days 09/29/22 tablet,extended release (Tylenol #60 tabs Arthritis Pain) furosemide 20 mg tablet 30 mg (1.5 x 20 mg) PO DAILY #135 10/01/22 tabs apixaban 5 mg tablet (Eliquis) 5 mg PO BID #180 tabs 10/12/22 amlodipine 5 mg tablet 5 mg PO DAILY #90 tabs 11/29/22 lisinopril 2.5 mg tablet 2.5 mg PO DAILY #90 tabs 11/29/22 fluoxetine 40 mg capsule 40 mg PO DAILY #90 caps 11/30/22 folic acid 1 mg tablet 1 mg PO DAILY #90 tabs 12/02/22 gabapentin 300 mg capsule 300 mg PO BID 30 days #60 caps 02/07/23 metoprolol tartrate 25 mg tablet 25 mg PO BID #180 tabs 02/07/23 rosuvastatin 5 mg tablet 5 mg PO DAILY #90 tabs 02/07/23 omeprazole 20 mg capsule,delayed 40 mg (2 x 20 mg) PO DAILY@0630 02/22/23 release #180 caps Allergies Allergy/AdvReac Type Severity Reaction Status Date / Time No Known Allergies Allergy Verified 09/29/22 14:11 [No Known Allergies*] Review of Systems 2 Review of Systems: Constitutional: No Fever, No Chills, No Fatigue, No Malaise ENT/Mouth: No Ear Pain, No Nasal Congestion, No Sinus Pain, No Hoarseness, No sore throat, No Rhinorrhea, No Swallowing Difficulty Eyes: No Eye Pain, No Swelling, No Redness, No Vision Changes Cardiovascular: +Chest Pain, + SOB, No Dyspnea on Exertion, No Orthopnea, +Chronic Edema, No Palpitations Respiratory: No Cough, No Sputum, No Dyspnea Gastrointestinal: No Nausea, No Vomiting, No Diarrhea, No Constipation, No Abdominal pain Genitourinary: No irregular bleeding, +Dysuria, No Urinary Frequency, No Hematuria, No Urinary Incontinence/retention, No Urgency, No Flank Pain Musculoskeletal: + joint pain, No Myalgias, +Joint Swelling Skin: No Skin Lesions, No rash Neuro: No Weakness, No Numbness, No Paresthesias, No Loss of Consciousness, No Dizziness, No Headache Yes all other systems are reviewed and are negative Constitutional: Constitutional: Reports as per HPI Neurologic: Denies Abnormal speech present REPLACED BY [facility] Past Medical History Attestation statement: The following information was validated with the patient. Source: old records reviewed Medical History History of cardiac arrest (~05/2020) Nicotine dependence, cigarettes, uncomplicated Personal history of colonic polyps Hypoventilation associated with obesity syndrome Encephalopathy chronic Morbid obesity MJ (obstructive sleep apnea) Effusion, right knee CKD (chronic kidney disease) stage 3, GFR 30-59 ml/min Cirrhosis Diabetes Obesity (BMI 35.0-39.9 without comorbidity) Nataliia encephalopathy Obstructive sleep apnea (adult) (pediatric) Alcohol use disorder, severe, dependence Rib fractures CHF (congestive heart failure) Left atrial enlargement Persistent atrial fibrillation Depression Gout Arthritis Anxiety HTN (hypertension) Surgical History History of tracheostomy (~2019) History of bronchoscopy (~2019) History of colonoscopy (~2021) History of esophagogastroduodenoscopy (EGD) (~2021) History of cardioversion (~2020) S/P percutaneous endoscopic gastrostomy (PEG) tube placement (~2019) Family History Family History Father Lung cancer Mother No problems noted. Maternal Aunt History of heart attack Sister No problems noted. Brother Cancer of kidney Brother No problems noted. Brother No problems noted. Brother No problems noted. Brother No problems noted. Brother No problems noted. Other Substance use disorder Social History Social History Household Members: Spouse Housing: House Do you presently have visiting nurse or other home services: No Unable to assess alcohol history related to: Unknown Alcohol intake: current Alcohol intake frequency: 3 or more drinks per day Alcohol type: hard liquor Patient Tobacco Use Status: Current everyday Tobacco user Tobacco use type: Cigarette Cigarette Packs Per Day: 1 Cigarettes Per Day: 20 Smoked in Last 30 Days: No e-Cigarette/Vaping Use: Never Used Second Hand Smoke Exposure: Yes Use of substances other than those prescribed or required for medical reasons: No Advance Directives: Yes Advance Directives on File: Yes Advance Directives Date on File: 06/05/20 service: Yes Current occupational status: unemployed Cognitive needs: No Hearing needs: No Vision needs: No Physical Exam 2 Vital Signs: Vital Signs: Last Vital Signs Temp 97.0 F 03/30/23 06:33 Pulse 90 03/30/23 06:33 Resp 20 03/30/23 08:59 BP 108/60 03/30/23 06:33 Pulse Ox 97 03/30/23 06:33 O2 Del Method Room Air 03/30/23 06:33 O2 Flow Rate 2 03/29/23 11:05 BMI result Body Mass Index 42.0 Const: General: cooperative, healthy appearing and no acute distress O rientation/consciousness: patient oriented x3 Limitations: no limitations HEENT: Head: Yes normal to inspection and Yes atraumatic Ears: hearing grossly normal bilaterally General nose exam: Normal external nose present Face and sinus: Yes normal facial exam Mouth: Normal oral and palatal mucosa present Eyes: General: appearance normal, both eyes and all related structures EOM: EOMs intact bilaterally Neck: Neck: Yes normal visual inspection and Yes no meningeal signs Resp: Effort & Inspection: normal respiratory effort and no respiratory distress Auscultation: clear to auscultation bilaterally, no crackles, no rhonchi and no wheezes Cardio: Rate: regular rate Heart sounds: S1 normal heart sound present and S2 normal heart sound present Peripheral pulses: Peripheral pulses 2+ throughout GI: Inspection: Yes normal to inspection Palpation (GI): Soft to palpation, nontender, no guarding and not rigid : General: Yes no CVA tenderness Back/Spine/Pelvis: Other: No midline cervical/thoracic/lumbar spinous tenderness/step-off or deformity Back: no CVA tenderness Skin: Rashes: no rashes Wounds: no wounds Neuro: General: patient oriented x3, tone normal, moves all extremities, no meningeal signs, no focal motor deficits and CN's II-XI intact bilaterally C ranial nerves: Yes CN's II-XII intact bilaterally Cognition (Neuro): normal cognition Speech: No Abnormal speech present Gait exam (Neuro): Normal gait present Motor exam (neuro): 5/5 motor strength present throughout Extrem: Other: Left ankle noted swelling and diffuse tenderness to palpation. No erythema/warmth. Neurovascularly intact. 1+ bilateral LE edema. No calf pain Course Course Course Narrative: -0638--mild leukocytosis of 14.6. Chronic CKD. magnesium mildly low 1.3 >2g IV repletion given -troponin negative. BNP 349, chronically elevated -UA infected > given PO ceftin >> low suspicion for severe sepsis. Orthostatic vital signs negative XR chest 1V IMPRESSION: Suggestion of central peribronchial thickening without focal consolidation. Cardiac silhouette remains enlarged. -ethanol 118 XR ankle LT min 3V IMPRESSION: Erosive change medial talus with associated soft tissue prominence. MRI left ankle may be considered for further characterization. > case discussed with Dr. Wright who also evaluated patient, will obtain MRI for further delineation. Will also obtain ESR/CRP. -1140--CRP elevated to 3.3. -Lactic acid WNL -1630-- ED care transferred to CLINICAL RESEARCH ANALYST Rubin pending MRI & dispo per results Reevaluation(s) Reevaluation #1: Patient required premedication with oral lorazepam for MRI imaging due to claustrophobia. I was later informed by nursing staff that MRI would be unable to perform his scan tonight due to time constraints and staffing availability, discussed this with patient, he will be placed in physician observation at this time so that MRI can be obtained. He is agreeable with this plan of care. Med reconciliation was completed. Time: 22:40 Reevaluation #2: MR/MR ankle LT wo con IMPRESSION: 1. Marked tibialis anterior tendinosis with a small longitudinal partial tear at the level of the ankle joint. Mild associated tenosynovitis. 2. Small ankle joint effusion with mild synovitis. No appreciable erosive changes are identified on MRI. 3. Mild multifocal arthrosis in the ankle and midfoot. 4. Mild Achilles tendinosis. 5. Diffuse soft tissue swelling and subcutaneous edema at the ankle, most pronounced anteriorly. 6. Mild peroneal tendinosis and tenosynovitis. Mild posterior tibial tenosynovitis. 7. Diffuse atrophy and fatty replacement of the intrinsic foot musculature. physician observation continued. MRI completed. d/w Chitra from orthopedics - no need to admit for tenosynovitis. ankle is not erythematous, warm or septic appearing. he is being treated for UTI w/ ceftin. He reports significant ankle pain with dorsiflexion and weight bearing. will place in walking boot, have PT see him and get case management consulted for possible short term rehab placement. will continue to monitor. Time: 14:42 Reevaluation #3: 03/30/2023 0904: Physician observation continues. Patient being followed by CM. 03/30/2023 1102: Patient's CIWA 8 and urine prelimnary shows gram negative rods. Patient admitted to the hospitalist service. Consultations Consultation #1: ortho - chitra PA-C Medications Administered Generic Name Dose Route Start Last Admin Trade Name Freq PRN Reason Stop Dose Admin Acetaminophen 650 mg 03/29/23 00:41 03/30/23 07:49 Acetaminophen 325 Mg Tablet PO 650 mg Q12H PRN Administration pain Albuterol Sulfate 2 puff 03/29/23 09:00 03/30/23 07:55 Albuterol Sulfate 90 Mcg 8 Gm Inhaler INHALE 2 puff QID JESSICA Administration Amlodipine Besylate 5 mg 03/29/23 09:00 03/30/23 07:50 Amlodipine Besylate 5 Mg Tablet PO 5 mg DAILY JESSICA Administration Protocol Apixaban 5 mg 03/29/23 00:45 03/30/23 07:50 Apixaban 5 Mg Tablet PO 5 mg BID JESSICA Administration Atorvastatin Calcium 20 mg 03/29/23 09:00 03/30/23 07:50 Atorvastatin Calcium 20 Mg Tablet PO 20 mg DAILY JESSICA Administration Cefuroxime Axetil 250 mg 03/29/23 09:00 03/30/23 07:50 Cefuroxime Axetil 250 Mg Tablet PO 04/04/23 09:00 250 mg BID JESSICA Administration Cyclobenzaprine HCl 10 mg 03/29/23 00:45 03/29/23 20:31 Cyclobenzaprine Hcl 10 Mg Tablet PO 10 mg BEDTIME JESSICA Administration Doxazosin Mesylate 4 mg 03/29/23 21:00 03/29/23 20:31 Doxazosin Mesylate 2 Mg Tablet PO 4 mg BEDTIME JESSICA Administration Fluoxetine HCl 40 mg 03/29/23 09:00 03/30/23 07:51 Fluoxetine Hcl 20 Mg Capsule PO 40 mg DAILY JESSICA Administration Folic Acid 1 mg 03/29/23 09:00 03/30/23 07:50 Folic Acid 1 Mg Tablet PO 1 mg DAILY JESSICA Administration Furosemide 30 mg 03/29/23 09:00 03/30/23 07:50 Furosemide 20 Mg Tablet PO 30 mg DAILY JESSICA Administration Protocol Gabapentin 300 mg 03/29/23 00:45 03/30/23 07:50 Gabapentin 300 Mg Capsule PO 300 mg BID JESSICA Administration Lisinopril 2.5 mg 03/29/23 09:00 03/29/23 08:49 Lisinopril 2.5 Mg Tablet PO 2.5 mg DAILY JESSICA Administration Protocol Metformin HCl 850 mg 03/29/23 08:00 03/30/23 07:50 Metformin Hcl 850 Mg Tablet PO 850 mg DAILY@0800 JESSICA Administration Metoprolol Tartrate 25 mg 03/29/23 09:00 03/30/23 07:50 Metoprolol Tartrate 25 Mg Tablet PO 25 mg BID [facility] Administration Protocol Omeprazole 40 mg 03/29/23 06:30 03/30/23 06:13 Omeprazole 40 Mg Capsule.Dr PO 40 mg DAILY@0630 [facility] Administration Discontinued Medications Generic Name Dose Route Start Last Admin Trade Name Marleny PRN Reason Stop Dose Admin Cefuroxime Axetil 250 mg 03/28/23 07:00 03/28/23 07:50 Cefuroxime Axetil 250 Mg Tablet PO 03/28/23 07:01 250 mg ONCE ONE Administration Magnesium Sulfate 2 gm in 50 mls @ 25 mls/hr 03/28/23 02:41 03/28/23 05:00 Magnesium Sulfate/H2o IV 03/28/23 04:40 Infused ONCE ONE Infusion Vancomycin HCl 2,000 mg in 500 mls @ 250 mls/hr 03/28/23 10:06 03/28/23 14:32 Vancomycin/Ns IV 03/28/23 12:05 Infused ONCE ONE Infusion Lorazepam 1 mg 03/28/23 10:13 03/28/23 10:38 Lorazepam 1 Mg Tablet PO 03/28/23 10:14 1 mg ONCE ONE Administration Lorazepam 2 mg 03/28/23 20:13 03/28/23 20:17 Lorazepam 1 Mg Tablet PO 03/28/23 20:14 2 mg ONCE ONE Administration Lorazepam 1 mg 03/29/23 10:37 03/29/23 11:50 Lorazepam 1 Mg Tablet PO 03/29/23 10:38 1 mg ONCE ONE Administration Lorazepam 2 mg 03/30/23 08:24 03/30/23 09:07 Lorazepam 1 Mg Tablet PO 03/30/23 08:25 2 mg ONCE ONE Administration Metoprolol Tartrate 25 mg 03/28/23 07:15 03/28/23 07:49 Metoprolol Tartrate 25 Mg Tablet PO 03/28/23 07:16 25 mg ONCE ONE Administration Protocol Morphine Sulfate 15 mg 03/28/23 14:48 03/28/23 14:57 Morphine Sulfate Immed Release 15 Mg Tablet PO 03/28/23 14:49 15 mg ONCE ONE Administration Nicotine 14 mg 03/30/23 08:24 03/30/23 09:07 Nicotine 14 Mg Patch.Td24 TRANSDERMA 03/30/23 08:25 14 mg ONCE ONE Administration Medical Decision Making Medical Decision Making MDM Narrative: 63-year-old male with a past medical history encephalopathy, morbid obesity, MJ, CKD, diabetes, ETOH abuse, CHF, AFib on Eliquis, gouty arthritis, HTN, presenting to the ED complaining of chest pain, shortness of breath, nonbloody diarrhea, and dysuria x few weeks. On exam vital signs stable, NAD, nontoxic appearing, lungs CTA, abdomen soft/nontender, no midline spinous tenderness throughout, no focal neuro deficits, left ankle with noted swelling and tenderness. Neurovascular intact. Concerning for atypical ACS vs viral syndrome/pneumonia or bronchitis vs gastroenteritis vs UTI. Concern for ankle fracture versus arthritic flare/gout. Low suspicion for appendicitis/diverticulitis/colitis, pancreatitis without tenderness on exam. Unlikely septic joint/arthritis. Low suspicion for CHF at this time Plan: EKG, labs, UA, CXR, ankle x-ray, re-evaluate Please refer to course for remaining clinical decision making, interpretation of labs/imaging results, and discussions with consultants and/or family members. Differential Diagnosis Differential Diagnoses: The differential diagnosis associated with the presentation includes As above Admission/Observation Consideration of admission/observation: Escalation of care including admission/observation considered Lab Data [facility] Lab Attestation statement: I reviewed the patient's lab results. 03/28/23 00:15 03/28/23 00:15 Labs: Lab Results 03/28/23 03/28/23 03/28/23 Range/Units 00:15 04:02 05:46 WBC 14.6 H (4.8-10.8) X10*3/uL RBC 4.99 (4.60-5.80) X10*6/uL Hgb 14.4 (14.0-18.0) g/dl Hct 44.4 (42.0-52.0) % MCV 89.0 (80.0-98.0) fL MCH 28.9 (27.0-33.0) pg MCHC 32.4 (31.0-36.0) g/dl RDW 13.6 (11.0-16.0) % Plt Count 198 (160-400) X10*3/uL MPV 10.2 (9.4-12.4) fL Immature Gran % (Auto) 0.5 H (0.0-0.4) % Neut % (Auto) 69.0 (45-73) % Lymph % (Auto) 20.0 (20-40) % [place] % (Auto) 8.9 (2-11) % Eos % (Auto) 1.1 (0-4) % Baso % (Auto) 0.5 (0-2) % Lymph # (Auto) 2.9 (1.2-4.9) X10*3/uL [place] # (Auto) 1.3 H (0.1-1.2) X10*3/uL Eos # (Auto) 0.2 (0.0-0.4) X10*3/uL Baso # (Auto) 0.1 (0.0-0.2) X10*3/uL Abs Immat Gran (auto) 0.07 H (0.00-0.03) X10*3/uL Absolute Neuts (auto) 10.1 H (2.0-8.3) x10*3/uL Absolute Nucleated RBC 0.000 (0.0-0.012) X10*3/uL Nucleated RBC % (auto) 0.0 (0.0-0.2) /100WBC ESR (0-15) MM/HR Sodium 138 (135-145) mmol/L Potassium 4.6 (3.3-5.1) mmol/L Chloride 101 (96-108) mmol/L Carbon Dioxide 22 (22-29) mmol/L Anion Gap 20 (12-20) BUN 13 (9-16) mg/dL Creatinine 1.49 H (0.5-1.4) mg/dL Estim Creat Clear Calc 76.8 Estimated GFR 48 POC Glucose (60-115) mg/dL Random Glucose 109 (60-115) mg/dL Lactic Acid (0.5-2.0) mmol/L Calcium 9.5 (8.4-10.2) mg/dL Magnesium 1.3 L* (1.6-2.6) mg/dL Total Bilirubin 0.5 (0.0-1.0) mg/dL Direct Bilirubin 0.3 (0.0-0.5) mg/dL AST 21 (5-37) U/L ALT 10 (0-40) U/L Alkaline Phosphatase 112 (39-117) U/L Troponin I High Sens 2.9 < 2.7 (<3.5-35.0) ng/L C-Reactive Protein 3.34 H (< or = 0.50) mg/dL B-Natriuretic Peptide 349 H (<100) pg/mL Total Protein 8.6 H (6.5-8.0) g/dL Albumin 4.0 (3.5-5.0) g/dL Lipase 56 (8-78) U/L Urine Color Dark Yellow Urine Appearance Clear Urine pH 5.5 (5.0-9.0) Ur Specific [place] 1.020 (1.005-1.025) Urine Protein 100 (2+) H (Neg-Trace) mg/dL Urine Glucose (UA) Negative (Negative) mg/dL Urine Ketones Trace (Negative) mg/dL Urine Blood Moderate (2+) H (Negative) Urine Nitrite Positive H (Negative) Ur Leukocyte Esterase Moderate (2+) H (Negative) Urine RBC 11-20 H (0-2) /HPF Urine WBC 21-50 H (0-5) /HPF Urine WBC Clumps Present Ur Squamous Epith Cells 3-5 (0-2) /HPF Urine Bacteria 1+ (None Seen) Hyaline Casts 11-20 (0-2) /LPF Ethyl Alcohol 118 mg/dL COVID-19 (LINDEN) (Negative) COVID-19 Clin Com 03/28/23 03/28/23 03/28/23 Range/Units 07:54 10:30 17:22 WBC (4.8-10.8) X10*3/uL RBC (4.60-5.80) X10*6/uL Hgb (14.0-18.0) g/dl Hct (42.0-52.0) % MCV (80.0-98.0) fL MCH (27.0-33.0) pg MCHC (31.0-36.0) g/dl RDW (11.0-16.0) % Plt Count (160-400) X10*3/uL MPV (9.4-12.4) fL Immature Gran % (Auto) (0.0-0.4) % Neut % (Auto) (45-73) % Lymph % (Auto) (20-40) % [place] % (Auto) (2-11) % Eos % (Auto) (0-4) % Baso % (Auto) (0-2) % Lymph # (Auto) (1.2-4.9) X10*3/uL [place] # (Auto) (0.1-1.2) X10*3/uL Eos # (Auto) (0.0-0.4) X10*3/uL Baso # (Auto) (0.0-0.2) X10*3/uL Abs Immat Gran (auto) (0.00-0.03) X10*3/uL Absolute Neuts (auto) (2.0-8.3) x10*3/uL Absolute Nucleated RBC (0.0-0.012) X10*3/uL Nucleated RBC % (auto) (0.0-0.2) /100WBC ESR 18 H (0-15) MM/HR Sodium (135-145) mmol/L Potassium (3.3-5.1) mmol/L Chloride (96-108) mmol/L Carbon Dioxide (22-29) mmol/L Anion Gap (12-20) BUN (9-16) mg/dL Creatinine (0.5-1.4) mg/dL Estim Creat Clear Calc Estimated GFR POC Glucose (60-115) mg/dL Random Glucose (60-115) mg/dL Lactic Acid 1.0 (0.5-2.0) mmol/L Calcium (8.4-10.2) mg/dL Magnesium (1.6-2.6) mg/dL Total Bilirubin (0.0-1.0) mg/dL Direct Bilirubin (0.0-0.5) mg/dL AST (5-37) U/L ALT (0-40) U/L Alkaline Phosphatase (39-117) U/L Troponin I High Sens (<3.5-35.0) ng/L C-Reactive Protein (< or = 0.50) mg/dL B-Natriuretic Peptide (<100) pg/mL Total Protein (6.5-8.0) g/dL Albumin (3.5-5.0) g/dL Lipase (8-78) U/L Urine Color Urine Appearance Urine pH (5.0-9.0) Ur Specific [place] (1.005-1.025) Urine Protein (Neg-Trace) mg/dL Urine Glucose (UA) (Negative) mg/dL Urine Ketones (Negative) mg/dL Urine Blood (Negative) Urine Nitrite (Negative) Ur Leukocyte Esterase (Negative) Urine RBC (0-2) /HPF Urine WBC (0-5) /HPF Urine WBC Clumps Ur Squamous Epith Cells (0-2) /HPF Urine Bacteria (None Seen) Hyaline Casts (0-2) /LPF Ethyl Alcohol mg/dL COVID-19 (LINDEN) Negative (Negative) COVID-19 Clin Com See Note 03/28/23 03/29/23 Range/Units 22:51 11:03 WBC (4.8-10.8) X10*3/uL RBC (4.60-5.80) X10*6/uL Hgb (14.0-18.0) g/dl Hct (42.0-52.0) % MCV (80.0-98.0) fL MCH (27.0-33.0) pg MCHC (31.0-36.0) g/dl RDW (11.0-16.0) % Plt Count (160-400) X10*3/uL MPV (9.4-12.4) fL Immature Gran % (Auto) (0.0-0.4) % Neut % (Auto) (45-73) % Lymph % (Auto) (20-40) % [place] % (Auto) (2-11) % Eos % (Auto) (0-4) % Baso % (Auto) (0-2) % Lymph # (Auto) (1.2-4.9) X10*3/uL [place] # (Auto) (0.1-1.2) X10*3/uL Eos # (Auto) (0.0-0.4) X10*3/uL Baso # (Auto) (0.0-0.2) X10*3/uL Abs Immat Gran (auto) (0.00-0.03) X10*3/uL Absolute Neuts (auto) (2.0-8.3) x10*3/uL Absolute Nucleated RBC (0.0-0.012) X10*3/uL Nucleated RBC % (auto) (0.0-0.2) /100WBC ESR (0-15) MM/HR Sodium (135-145) mmol/L Potassium (3.3-5.1) mmol/L Chloride (96-108) mmol/L Carbon Dioxide (22-29) mmol/L Anion Gap (12-20) BUN (9-16) mg/dL Creatinine (0.5-1.4) mg/dL Estim Creat Clear Calc Estimated GFR POC Glucose 122 H 150 H (60-115) mg/dL Random Glucose (60-115) mg/dL Lactic Acid (0.5-2.0) mmol/L Calcium (8.4-10.2) mg/dL Magnesium (1.6-2.6) mg/dL Total Bilirubin (0.0-1.0) mg/dL Direct Bilirubin (0.0-0.5) mg/dL AST (5-37) U/L ALT (0-40) U/L Alkaline Phosphatase (39-117) U/L Troponin I High Sens (<3.5-35.0) ng/L C-Reactive Protein (< or = 0.50) mg/dL B-Natriuretic Peptide (<100) pg/mL Total Protein (6.5-8.0) g/dL Albumin (3.5-5.0) g/dL Lipase (8-78) U/L Urine Color Urine Appearance Urine pH (5.0-9.0) Ur Specific [place] (1.005-1.025) Urine Protein (Neg-Trace) mg/dL Urine Glucose (UA) (Negative) mg/dL Urine Ketones (Negative) mg/dL Urine Blood (Negative) Urine Nitrite (Negative) Ur Leukocyte Esterase (Negative) Urine RBC (0-2) /HPF Urine WBC (0-5) /HPF Urine WBC Clumps Ur Squamous Epith Cells (0-2) /HPF Urine Bacteria (None Seen) Hyaline Casts (0-2) /LPF Ethyl Alcohol mg/dL COVID-19 (LINDEN) (Negative) COVID-19 Clin Com Independent Interpretation I performed an independent interpretation of an: EKG (My interpretation EKG is AFib at a rate of 98. Low voltage QRS. QTC 451. No significant change when compared to prior) Radiology Impression Discussion of test interpretation with radiology: I have reviewed the radiologist's reading. External Record Review External record reviewed: Inpatient record, Office record, Outpatient record, Prior outpatient labs, Prior outpatient radiology, Primary care record and Outside ED record Tests considered The following testing was considered but not selected: As above Prescription Management I considered prescription management with: Pain Medication and Antibiotic Chronic Conditions Patient?s care impacted by: Diabetes Discharge Plan Discharge Clinical Impression: Acute UTI, Diarrhea, Hypomagnesemia, Erosive osteoarthritis Patient Disposition: Still a Patient Additional Instructions: Workup in the ER showed you have a UTI Take the prescribed antibiotics for this; complete the entire course and do not miss any doses Recommend following up with Orthopedics for your ankle pain MR/MR ankle LT wo con IMPRESSION: 1. Marked tibialis anterior tendinosis with a small longitudinal partial tear at the level of the ankle joint. Mild associated tenosynovitis. 2. Small ankle joint effusion with mild synovitis. No appreciable erosive changes are identified on MRI. 3. Mild multifocal arthrosis in the ankle and midfoot. 4. Mild Achilles tendinosis. 5. Diffuse soft tissue swelling and subcutaneous edema at the ankle, most pronounced anteriorly. 6. Mild peroneal tendinosis and tenosynovitis. Mild posterior tibial tenosynovitis. 7. Diffuse atrophy and fatty replacement of the intrinsic foot musculature. Prescriptions: No Action (DME) blood-glucose meter [FreeStyle Lite Meter] Kit See Rx Instructions .ROUTE .MEDSUPPLY Qty: 1 0RF Rx Instructions: check sugar twice a day (DME) lancets [FreeStyle Lancets] 28 gauge misc See Rx Instructions .ROUTE .MEDSUPPLY Qty: 100 2RF Rx Instructions: check sugar twice a day (DME) FreeStyle David 2 [place] Misc See Rx Instructions .Route Qty: 1 0RF Rx Instructions: tid testing (DME) FreeStyle David 2 Sensor Kit See Rx Instructions .Route Qty: 1 3RF Rx Instructions: tid testing albuterol sulfate 90 mcg/actuation HFA aerosol inhaler 2 puff inhalation QID Qty: 8.5 2RF furosemide 20 mg tablet 30 mg PO DAILY Qty: 135 1RF Eliquis 5 mg tablet 5 mg PO BID Qty: 180 1RF amlodipine 5 mg tablet 5 mg PO DAILY Qty: 90 1RF lisinopril 2.5 mg tablet 2.5 mg PO DAILY Qty: 90 1RF fluoxetine 40 mg capsule 40 mg PO DAILY Qty: 90 1RF folic acid 1 mg tablet 1 mg PO DAILY Qty: 90 1RF gabapentin 300 mg capsule 300 mg PO BID 30 Days Qty: 60 4RF metoprolol tartrate 25 mg tablet 25 mg PO BID Qty: 180 1RF rosuvastatin 5 mg tablet 5 mg PO DAILY Qty: 90 1RF omeprazole 20 mg capsule,delayed release(DR/EC) 40 mg PO DAILY@0630 Qty: 180 1RF metformin 850 mg tablet 850 mg PO DAILY Qty: 90 1RF cyclobenzaprine 10 mg tablet 10 mg PO BEDTIME acetaminophen [Tylenol Arthritis Pain] 650 mg tablet extended release 650 mg PO Q12H PRN (Reason: pain) 30 Days Qty: 60 0RF terazosin 5 mg capsule 5 mg PO BEDTIME 90 Days Qty: 90 1RF Referrals: [facility] [place] Orthopedic Surgeons [Provider Group] (MR/MR ankle LT wo con IMPRESSION: 1. Marked tibialis anterior tendinosis with a small longitudinal partial tear at the level of the ankle joint. Mild associated tenosynovitis. 2. Small ankle joint effusion with mild synovitis. No appreciable erosive changes are identified on MRI. 3. Mild multifocal arthrosis in the ankle and midfoot. 4. Mild Achilles tendinosis. 5. Diffuse soft tissue swelling and subcutaneous edema at the ankle, most pronounced anteriorly. 6. Mild peroneal tendinosis and tenosynovitis. Mild posterior tibial tenosynovitis. 7. Diffuse atrophy and fatty replacement of the intrinsic foot musculature.) Ortiz Deluca, [employer] [Primary Care Provider] -
--- NOTE | 2023-03-28 06:43 | PC.NURSE ---
Pt reports feeling much better than when he came in . pt updated on plan of care
[2023-03-28] MEDS: Metoprolol Tartrate 25 MG TABLET PO (07:49)
--- NOTE | 2023-03-28 07:57 | PC.NURSE ---
assumed care of this pt at 0700. pt awake in bed at the time of assuming care. pt reports 1/10 chest pain, denies sob. L ankle xray being done at this time. meds given as ordered. will continue to observe.
[2023-03-28 08:13] LABS: COVID-19 Test Negative (Negative); IDNOW Serial# BCCEAD1C
[2023-03-28 10:24] LABS: C Reactive Protein 3.34 mg/dL (< or = 0.50)
[2023-03-28] MEDS: LORazepam 1 MG TABLET PO (10:38)
[2023-03-28] MEDS: vancomycin/NS 2,000 MG/500 ML PLAST..BAG 250 MG IV (11:18)
--- NOTE | 2023-03-28 11:38 | PC.NURSE ---
antibiotics infusing per MAR. pt resting at this time and is trying to get some sleep. pt reports anxiety related to MRI - medicated with Ativan per MAR. Pt also endorses daily alcohol intake, last drink was late last night. CIWA <9 at the moment MRI pending, form faxed
[2023-03-28] MEDS: Morphine Sulfate Immed Release 15 MG TABLET PO (14:57)
--- NOTE | 2023-03-28 15:14 | PC.NURSE ---
this nurse took over care from [facility] at 1500, will assess patient shortly
--- NOTE | 2023-03-28 15:54 | PC.NURSE ---
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
[2023-03-28 18:34] LABS: Erythrocyte Sedimentation Rate 18 MM/HR (0-15)
[2023-03-28] MEDS: LORazepam 1 MG TABLET 2 MG PO (20:17)
[2023-03-28 22:55] LABS: Glucose, Whole Blood 122 mg/dL (60-115)
--- NOTE | 2023-03-28 23:01 | PC.NURSE ---
med rec completed at this time, Rubin LOPEZ aware.
[2023-03-29] VITALS (8 sets, daily range): BP systolic 123–153; BP diastolic 72–82; PULSE 78–125; RESP 15–20; TEMP 36.2–37.3; O2SAT 92–98
[2023-03-29] MEDS: Gabapentin 300 MG CAPSULE PO ×3 (02:15→20:31)
[2023-03-29] MEDS: Cyclobenzaprine HCl 10 MG TABLET PO ×2 (02:15→20:31)
[2023-03-29] MEDS: Apixaban 5 MG TABLET PO ×3 (02:15→20:31)
--- NOTE | 2023-03-29 04:48 | PC.NURSE ---
assumed care of pt at change of shift. pt reporting 2 weeks of chest pain that has not subsided, initial cardiac workup negative. pt left ankle xray findings require additional workup. pt scheduled for MRI, upon arrival of MRI staff pt requested medication for anxiety and claustrophobia. reached out to provider and pt was medicated for anxiety. as pt was going to be placed on the MRI table, pt was taken out for a priority pt. pt brought back to the ED and will be waiting for MRI at this time.
[2023-03-29] MEDS: Omeprazole 40 MG CAPSULE.DR PO (06:23)
--- NOTE | 2023-03-29 06:24 | PC.NURSE ---
pt repositioned in bed, no apparent distress at this time.
[2023-03-29] MEDS: Albuterol Sulfate 90 MCG 8 GM INHALER 2 PUFF INHALE ×3 (08:01→21:25)
[2023-03-29] MEDS: FLUoxetine HCl 20 MG CAPSULE 40 MG PO (08:48)
[2023-03-29] MEDS: amLODIPine Besylate 5 MG TABLET PO (08:49)
[2023-03-29] MEDS: lisinopriL 2.5 MG TABLET PO (08:49)
[2023-03-29] MEDS: Metoprolol Tartrate 25 MG TABLET PO ×2 (08:49→20:32)
[2023-03-29] MEDS: Folic Acid 1 MG TABLET PO (08:50)
[2023-03-29] MEDS: Furosemide 20 MG TABLET 30 MG PO (08:50)
[2023-03-29] MEDS: Atorvastatin Calcium 20 MG TABLET PO (08:50)
--- NOTE | 2023-03-29 08:55 | PC.NURSE ---
Pt is alert/oriented. Hospital bed provided for comfort and soiled clothes removed. Pt reports 5/10 left ankle pain, redness, warmth to touch noted, no swelling. +CMS. Awaits MRI. Meds given, awaiting Metformin from pharmacy. Back to sleep at this time
[2023-03-29] MEDS: metFORMIN HCl 850 MG TABLET PO (10:31)
--- NOTE | 2023-03-29 10:44 | PC.NURSE ---
Plan for MRI at 12, provider aware. Ativan ordered for preprocedure. Pt reports feeling like dose given yesterday was too much, less to be ordered for today. CIWA 0 at this time. Pt asleep awakes to verbal stimuli
[2023-03-29 11:09] LABS: Glucose, Whole Blood 150 mg/dL (60-115)
--- NOTE | 2023-03-29 11:24 | PC.NURSE ---
Assumed care of pt at 1100, pt VSS, no c/o pain, resting quietly.
[2023-03-29] MEDS: LORazepam 1 MG TABLET PO (11:50)
--- NOTE | 2023-03-29 12:19 | PC.NURSE ---
Pt medicated with ativan as ordered prior to MRI, assisted with urinal and transported to MRI at 1200.
--- NOTE | 2023-03-29 16:55 | PC.NURSE ---
Report given to overflow, awaiting transport.
--- NOTE | 2023-03-29 18:17 | PC.NURSE ---
Patient arrived from main ED, alert and oriented. Removed walking boot on left foot. Ate well for dinner, no sob or chest pain reported.
--- NOTE | 2023-03-29 18:23 | MHC.EDTECH ---
THIS PCT ASSUMED CARE OF PT ,PT HAD DINNER ATE 100 5 OF MEALS ,DRANK 240 ML FLUIDS ,PT HAS NO APPARENT DISTRESS AND IS WATCHING TELEVISION .
[2023-03-29] MEDS: Doxazosin Mesylate 2 MG TABLET 4 MG PO (20:31)
[2023-03-30] VITALS (8 sets, daily range): BP systolic 108–118; BP diastolic 52–70; PULSE 83–116; RESP 15–20; TEMP 36–36.7; O2SAT 91–97; BMI 42.0
[2023-03-30] MEDS: Omeprazole 40 MG CAPSULE.DR PO (06:13)
[2023-03-30] MEDS: Acetaminophen 325 MG TABLET 650 MG PO (07:49)
[2023-03-30] MEDS: Gabapentin 300 MG CAPSULE PO ×2 (07:50→20:46)
[2023-03-30] MEDS: Folic Acid 1 MG TABLET PO (07:50)
[2023-03-30] MEDS: Apixaban 5 MG TABLET PO ×2 (07:50→20:46)
[2023-03-30] MEDS: Metoprolol Tartrate 25 MG TABLET PO (07:50)
[2023-03-30] MEDS: metFORMIN HCl 850 MG TABLET PO (07:50)
[2023-03-30] MEDS: Atorvastatin Calcium 20 MG TABLET PO (07:50)
[2023-03-30] MEDS: amLODIPine Besylate 5 MG TABLET PO (07:50)
[2023-03-30] MEDS: Furosemide 20 MG TABLET 30 MG PO (07:50)
[2023-03-30] MEDS: FLUoxetine HCl 20 MG CAPSULE 40 MG PO (07:51)
[2023-03-30] MEDS: Albuterol Sulfate 90 MCG 8 GM INHALER 2 PUFF INHALE ×3 (07:55→19:35)
[2023-03-30] MEDS: lisinopriL 2.5 MG TABLET PO (09:00)
[2023-03-30] MEDS: LORazepam 1 MG TABLET 2 MG PO (09:07)
[2023-03-30] MEDS: Nicotine 14 MG PATCH.TD24 TRANSDERMA (09:07)
[2023-03-30] MEDS: PHENobarbitaL sodium 130 MG/ML IM ONCE 320 MG IM (11:08)
--- NOTE | 2023-03-30 11:28 | P.HPHOSP_ITS ---
History of Present Illness Date of Service: 03/30/23 Attending physician on admission: Josie Tapia Chief Complaint: Alcohol withdrawal Pt is a 63-year-old male with a PMH significant for HFpEF, alcohol use disorder, persistent AFib on Eliquis, HLD, HTN, [id number] diabetes type 2, obesity hypoventilation syndrome, MJ on CPAP at night, chronic respiratory failure who initially presented to the ED prior on 03/28/2023 for evaluation of diarrhea. Pt had one episode of non-bloody diarrhea with additional lesser episode that night. Patient also presents with swollen left ankle with diffuse tenderness. X-ray of the left ankle showed erosive changes and MRI showed tibialis anterior tendinosis with associated tenosynovitis. ED consulted Ortho, who did not recommend admission for his condition. Patient with a history of 5-6 falls in the last couple of years with most recent 2-3 months ago. Patient was seen and evaluated at [facility] for his last fall. Labs on 03/28/2023 significant for leukocytosis of 14.6, Mag 1.3, and ethyl alcohol 118. UA positive for UTI. Patient was given Mag IV in the ED and started on a 7 day course of cefuroxime. Patient was admitted to [facility] as he was awaiting PT and Case Management evaluation. While in [facility] patient developed a CIWA of 8 and started on phenobarb protocol. Today, patient reports he has been drinking 10+ nips of Fireball Whiskey daily for the past 10-15 years. Last drink 4 days prior on . 03/26/2023 patient admits to upper extremity tremors and feeling edgy . Denies auditory or visual hallucinations. Patient be admitted to the hospital under telemetry for acute alcohol withdrawal. Review of Systems 2 Review of Systems: Upper extremity tremors Increasing agitation Denies auditory or visual hallucinations Left ankle pain Chronic SOB, improved since initial presentation Denies chest pain/pressure, palpitations [facility] Medical History History of cardiac arrest (~05/2020) Nicotine dependence, cigarettes, uncomplicated Personal history of colonic polyps Hypoventilation associated with obesity syndrome Encephalopathy chronic Morbid obesity MJ (obstructive sleep apnea) Effusion, right knee CKD (chronic kidney disease) stage 3, GFR 30-59 ml/min Cirrhosis Diabetes Obesity (BMI 35.0-39.9 without comorbidity) Nataliia encephalopathy Obstructive sleep apnea (adult) (pediatric) Alcohol use disorder, severe, dependence Rib fractures CHF (congestive heart failure) Left atrial enlargement Persistent atrial fibrillation Depression Gout Arthritis Anxiety HTN (hypertension) Family History Father Lung cancer Mother No problems noted. Maternal Aunt History of heart attack Sister No problems noted. Brother Cancer of kidney Brother No problems noted. Brother No problems noted. Brother No problems noted. Brother No problems noted. Brother No problems noted. Other Substance use disorder Surgical History History of tracheostomy (~2019) History of bronchoscopy (~2019) History of colonoscopy (~2021) History of esophagogastroduodenoscopy (EGD) (~2021) History of cardioversion (~2020) S/P percutaneous endoscopic gastrostomy (PEG) tube placement (~2019) Social History Household Members: Significant Other and Children Housing: House Do you presently have visiting nurse or other home services: No Unable to assess alcohol history related to: Unknown Alcohol intake: current Alcohol intake frequency: 3 or more drinks per day Alcohol type: hard liquor Patient Tobacco Use Status: Current everyday Tobacco user Tobacco use type: Cigarette Cigarette Packs Per Day: 1 Cigarettes Per Day: 20.0 Smoked in Last 30 Days: Yes e-Cigarette/Vaping Use: Never Used Patient Interested in Nicotine Replacement: Yes Patient Given Instructions on How to Stop Smoking: No Second Hand Smoke Exposure: No Use of substances other than those prescribed or required for medical reasons: No Currently Displaying Signs/Symptoms of Drug Intoxication Withdrawal: No Any prior treatment program specific to substance use: No Have you been hit, kicked, punched, or otherwise hurt by someone within the past year? If so, by whom?: No Do you feel safe in your current relationship?: Yes Is there a partner from a previous relationship who is making you feel unsafe now?: No Are you made to feel afraid or neglected: No Advance Directives: Yes Advance Directives on File: Yes Advance Directives Date on File: 06/05/20 Do you have thoughts of harming others: None Do you have a plan to hurt others: No Plan Recently lost weight without trying: No Eating poorly because of decreased appetite: No Poor oral hygiene: Yes service: Yes Current occupational status: unemployed Cognitive needs: No Hearing needs: No Vision needs: No Meds Allergies Allergy/AdvReac Type Severity Reaction Status Date / Time No Known Allergies Allergy Verified 09/29/22 14:11 [No Known Allergies*] Active Medications: Current Medications Acetaminophen (Acetaminophen 325 Mg Tablet) 650 mg PO Q12H PRN PRN Reason: pain Last Admin: 03/30/23 07:49 Dose: 650 mg Albuterol Sulfate (Albuterol Sulfate 90 Mcg 8 Gm Inhaler) 2 puff INHALE QID [facility] Last Admin: 03/30/23 07:55 Dose: 2 puff Amlodipine Besylate (Amlodipine Besylate 5 Mg Tablet) 5 mg PO DAILY [facility]; Protocol Last Admin: 03/30/23 07:50 Dose: 5 mg Apixaban (Apixaban 5 Mg Tablet) 5 mg PO BID [facility] Last Admin: 03/30/23 07:50 Dose: 5 mg Atorvastatin Calcium (Atorvastatin Calcium 20 Mg Tablet) 20 mg PO DAILY [facility] Last Admin: 03/30/23 07:50 Dose: 20 mg Cefuroxime Axetil (Cefuroxime Axetil 250 Mg Tablet) 250 mg PO BID JESSICA Stop: 04/04/23 09:00 Last Admin: 03/30/23 07:50 Dose: 250 mg Cyclobenzaprine HCl (Cyclobenzaprine Hcl 10 Mg Tablet) 10 mg PO BEDTIME JESSICA Last Admin: 03/29/23 20:31 Dose: 10 mg Doxazosin Mesylate (Doxazosin Mesylate 2 Mg Tablet) 4 mg PO BEDTIME JESSICA Last Admin: 03/29/23 20:31 Dose: 4 mg Fluoxetine HCl (Fluoxetine Hcl 20 Mg Capsule) 40 mg PO DAILY [facility] Last Admin: 03/30/23 07:51 Dose: 40 mg Folic Acid (Folic Acid 1 Mg Tablet) 1 mg PO DAILY [facility] Last Admin: 03/30/23 07:50 Dose: 1 mg Furosemide (Furosemide 20 Mg Tablet) 30 mg PO DAILY [facility]; Protocol Last Admin: 03/30/23 07:50 Dose: 30 mg Gabapentin (Gabapentin 300 Mg Capsule) 300 mg PO BID [facility] Last Admin: 03/30/23 07:50 Dose: 300 mg Lisinopril (Lisinopril 2.5 Mg Tablet) 2.5 mg PO DAILY [facility]; Protocol Last Admin: 03/30/23 09:00 Dose: 2.5 mg Metformin HCl (Metformin Hcl 850 Mg Tablet) 850 mg PO DAILY@0800 [facility] Last Admin: 03/30/23 07:50 Dose: 850 mg Metoprolol Tartrate (Metoprolol Tartrate 25 Mg Tablet) 25 mg PO BID [facility]; Protocol Last Admin: 03/30/23 07:50 Dose: 25 mg Omeprazole (Omeprazole 40 Mg Capsule.Dr) 40 mg PO DAILY@0630 [facility] Last Admin: 03/30/23 06:13 Dose: 40 mg Pharmacy Consult (Consult Rx Etoh Phenob Im/Po) 1 each MISCELLANE ONCE PRN; Protocol PRN Reason: Consult order Phenobarbital (Phenobarbital 30 Mg Tablet) 60 mg PO BID [facility]; Protocol Stop: 04/01/23 09:01 Phenobarbital (Phenobarbital 30 Mg Tablet) 30 mg PO BID [facility]; Protocol Stop: 04/03/23 09:01 Phenobarbital (Phenobarbital 30 Mg Tablet) 30 mg PO DAILY [facility]; Protocol Stop: 04/05/23 09:01 Phenobarbital Sodium (Phenobarbital Sodium 130 Mg/Ml Vial Im Q3hx2) 240 mg IM Q3H [facility]; Protocol Stop: 03/30/23 17:01 Trolamine Salicylate (Trolamine Salicylate 10 % Cream 85 Gm Tube) 1 appl TOPICAL ONCE PRN; Protocol PRN Reason: Pain, Mild (Pain Scale 1-3) Home Medications Medication Instructions Recorded Confirmed Last Taken Type cyclobenzaprine 10 mg tablet 10 mg PO BEDTIME 06/30/22 03/28/23 Unknown History Physical Exam 2 Vital Signs and Narrative: Vital Signs: Last Vital Signs Temp 97.0 F 03/30/23 06:33 Pulse 90 03/30/23 06:33 Resp 20 03/30/23 08:59 BP 108/60 03/30/23 06:33 Pulse Ox 97 03/30/23 06:33 O2 Del Method Room Air 03/30/23 06:33 O2 Flow Rate 2 03/29/23 11:05 BMI result Body Mass Index 42.0 Constitutional: Alert, in no acute distress. Mental Status: Oriented to person, place and time. Eyes: Pupils are equal, round, and reactive to light. Ear, Nose, and Throat: Oropharynx clear, mucous membranes moist. Ears and nose without deformities. Trachea midline. Respiratory: Clear to auscultation bilaterally. No wheezing, rales, or rhonchi. Cardiovascular: Irregularly irregular rhythm. No murmurs, rubs, or gallops. Gastrointestinal: Abdomen soft, non-tender, non-distended, obese. Normal bowel sounds. Neurologic: Cranial nerves II-XII are grossly intact bilaterally. No focal neurological deficits. Moves all extremities spontaneously. Mild upper extremity tremors. Skin: Warm, dry. Musculoskeletal: Left ankle tenderness, particularly on lateral aspect. Mild swelling. No erythema. Extremities: No edema. Psychiatric: Normal mood and affect. Results Labs 03/31/23 06:41 03/31/23 06:41 Imaging Radiologist's Impressions: Impressions Ankle MRI 03/29/23 12:55 IMPRESSION: 1. Marked tibialis anterior tendinosis with a small longitudinal partial tear at the level of the ankle joint. Mild associated tenosynovitis. 2. Small ankle joint effusion with mild synovitis. No appreciable erosive changes are identified on MRI. 3. Mild multifocal arthrosis in the ankle and midfoot. 4. Mild Achilles tendinosis. 5. Diffuse soft tissue swelling and subcutaneous edema at the ankle, most pronounced anteriorly. 6. Mild peroneal tendinosis and tenosynovitis. Mild posterior tibial tenosynovitis. 7. Diffuse atrophy and fatty replacement of the intrinsic foot musculature. Assessment and Plan (1) Alcohol withdrawal: Qualifiers: Complication of substance-induced condition: uncomplicated Qualified Code(s): F10.930 - Alcohol use, unspecified with withdrawal, uncomplicated Status: Inactive Plan Pt is a 63-year-old male with a PMH significant for HFpEF, alcohol use disorder, persistent AFib on Eliquis, HLD, HTN, [id number] diabetes type 2, obesity hypoventilation syndrome, MJ on CPAP at night, chronic respiratory failure who initially presented to the ED prior on 03/28/2023 for evaluation of diarrhea. Patient be admitted to the hospital under telemetry for acute alcohol withdrawal. Acute alcohol withdrawal Has been drinking daily up to 10+ nips daily for the past 10-15 years Last drink 4 days prior on 03/26/2023 Patient with mild upper extremity tremors, increased agitation, denies hallucinations Phenobarb protocol Daily multivitamin, folic acid, thiamine Continue PPI Follow lytes, Mag, BMP CIWA scale Addiction Medicine consult Monitor on telemetry Left ankle tendinosis with associated tenosynovitis Orthopedic consult PT consult Hypomagnesemia Mag 1.3 at time of presentation Received IV Mag in the ED Check mag levels Hx of multiple falls Patient states he has fallen 5-6 times in the past 2 years, most recently 2-3 months ago States currently he is unsteady on feet, uses walker at baseline Reports lightheadedness with standing Will get orthostatics PT evaluation Chronic AFib Continue metoprolol, Eliquis Chronic hypoxic and hypercapnic respiratory failure Currently not in acute exacerbation, satting at 94% on RA Continue home inhalers MJ CPAP at night HTN Continue amlodipine, lisinopril, metoprolol HLD Continue statin Obesity class III Encourage weight loss Full Code Attending:?Dr. Tapia DVT Prophylaxis: On Eliquis Pt will require a hospitalization of at least two nights for treatment of?acute alcohol withdrawal with phenobarb protocol and close monitoring. Pt will also require PT and case management evaluation. Time Spent With Patient Time: Total time managing care of this patient today ____ minutes. Quality Stroke Does the patient have a stroke diagnosis?: No VTE Prior VTE?: No VTE Risk Level:: Medical - moderate - high VTE Device Contraindication: Treatment Not Indicated VTE Drug Contraindication: N/A - Med Ordered
--- NOTE | 2023-03-30 11:45 | MHC.CM.ED ---
Patient remains in ER. Per Mary Grace BARNES, patient will be admitted due to ETOH withdrawal. Continue to monitor for d/c needs.
[2023-03-30] MEDS: Thiamine HCL 100 MG TABLET PO (14:21)
[2023-03-30] MEDS: Multivitamin TABLET 1 TAB PO (14:21)
--- NOTE | 2023-03-30 14:54 | PHA.MEDREC ---
Pharmacy Consult ? Medication Reconciliation Pharmacy has reviewed the medication reconciliation done by RN.
[2023-03-30] MEDS: PHENobarbitaL sodium 130 MG/ML VIAL IM Q3Hx2 240 MG IM ×2 (15:03→17:18)
[2023-03-30 15:54] LABS: Magnesium 1.5 mg/dL (1.6-2.6)
[2023-03-30] MEDS: 0.9 % Sodium Chloride Flush 3 ML SYRINGE IVFLUSH ×2 (17:18→20:47)
[2023-03-30] MEDS: Magnesium Sulfate/D5W 1 GM/100 ML PIGGYBACK IV (17:18)
[2023-03-30] MEDS: Cyclobenzaprine HCl 10 MG TABLET PO (20:45)
[2023-03-30] MEDS: Magnesium Oxide 400 MG TABLET PO (20:45)
[2023-03-30] MEDS: PHENobarbitaL 30 MG TABLET 60 MG PO (20:45)
[2023-03-30] MEDS: Doxazosin Mesylate 2 MG TABLET 4 MG PO (20:46)
[2023-03-31] VITALS (12 sets, daily range): BP systolic 115–148; BP diastolic 61–88; PULSE 75–118; RESP 16–20; TEMP 36–37.1; O2SAT 91–99
[2023-03-31] MEDS: Omeprazole 40 MG CAPSULE.DR PO (05:15)
[2023-03-31 07:31] LABS: MANUAL DIFF FLAG NO
[2023-03-31 07:33] LABS: Basophils Percent Auto 0.4 % (0-2); Eosinophils Absolute Auto 0.2 X10*3/uL (0.0-0.4); Eosinophils Percent Auto 1.7 % (0-4); Hematocrit 39.4 % (42.0-52.0); Imm Gran Abs Auto 0.06 X10*3/uL (0.00-0.03); Imm Gran Pct Auto 0.6 % (0.0-0.4); Lymphocytes Absolute Auto 1.7 X10*3/uL (1.2-4.9); Lymphocytes Percent Auto 16.5 % (20-40); Mean Corpuscular Hemoglobin 29.3 pg (27.0-33.0); Mean Corpuscular Volume 88.7 fL (80.0-98.0); Mean Platelet Volume 11.1 fL (9.4-12.4); Monocytes Percent Auto 9.7 % (2-11); Neutrophils Absolute Auto 7.2 x10*3/uL (2.0-8.3); Neutrophils Percent Auto 71.1 % (45-73); Platelet Count 151 X10*3/uL (160-400); Red Blood Count 4.44 X10*6/uL (4.60-5.80); Red Cell Distribution Width 14.1 % (11.0-16.0); White Blood Count 10.1 X10*3/uL (4.8-10.8)
[2023-03-31 07:49] LABS: Alanine Aminotransferase 21 U/L (0-40); Albumin Level 3.4 g/dL (3.5-5.0); Alkaline Phosphatase 143 U/L (39-117); Anion Gap 19 (12-20); Aspartate Amino Transferase 45 U/L (5-37); Bilirubin Total 1.2 mg/dL (0.0-1.0); Blood Urea Nitrogen 25 mg/dL (9-16); Calcium 9.6 mg/dL (8.4-10.2); Carbon Dioxide 21 mmol/L (22-29); Chloride 98 mmol/L (96-108); Creatinine Clr Calc Pharmacy 92.3; Estimated Glomerular Filt Rate 59; Glucose Random 150 mg/dL (60-115); Potassium 3.7 mmol/L (3.3-5.1); Sodium 134 mmol/L (135-145); Total Protein 7.7 g/dL (6.5-8.0)
[2023-03-31] MEDS: Albuterol Sulfate 90 MCG 8 GM INHALER 2 PUFF INHALE (08:25)
[2023-03-31] MEDS: FLUoxetine HCl 20 MG CAPSULE 40 MG PO (08:30)
[2023-03-31] MEDS: Atorvastatin Calcium 20 MG TABLET PO (08:30)
[2023-03-31] MEDS: Thiamine HCL 100 MG TABLET PO (08:30)
[2023-03-31] MEDS: Apixaban 5 MG TABLET PO ×2 (08:31→21:24)
[2023-03-31] MEDS: Multivitamin TABLET 1 TAB PO (08:31)
[2023-03-31] MEDS: PHENobarbitaL 30 MG TABLET 60 MG PO ×2 (08:31→21:23)
[2023-03-31] MEDS: Gabapentin 300 MG CAPSULE PO ×2 (08:31→21:23)
[2023-03-31] MEDS: Folic Acid 1 MG TABLET PO (08:31)
[2023-03-31] MEDS: lisinopriL 2.5 MG TABLET PO (08:31)
[2023-03-31] MEDS: Magnesium Oxide 400 MG TABLET PO (08:31)
[2023-03-31] MEDS: 0.9 % Sodium Chloride Flush 3 ML SYRINGE IVFLUSH ×2 (08:31→16:23)
[2023-03-31] MEDS: Furosemide 20 MG TABLET 30 MG PO (08:31)
[2023-03-31] MEDS: metFORMIN HCl 850 MG TABLET PO (08:31)
[2023-03-31] MEDS: amLODIPine Besylate 5 MG TABLET PO (08:31)
[2023-03-31] MEDS: Acetaminophen 325 MG TABLET 650 MG PO (08:39)
[2023-03-31] MEDS: Trolamine Salicylate 10 % Cream 85 GM TUBE 1 APPL TOPICAL (08:40)
[2023-03-31 08:51] LABS: Magnesium 1.8 mg/dL (1.6-2.6)
--- NOTE | 2023-03-31 09:42 | MHC.CM.PN ---
Addendum entered by Isabell Barton 03/31/23 10:49: P.T. HAS RECOMMENDED STR, REFERRALS SENT. Original Note: IMM/ DELIVERED PT LIVES WITH SP[facility]. USES [facility] FOR MOBILITY. HAS CPAP FOR SLEEP ([facility]) +COVID VAX +HCP ON FILE. PCP RANDAL BARNES DP: HOME, NO SERVICES ANTICIPATED. [facility] WILL TRANSPORT. CM WILL CONTINUE TO FOLLOW FOR ANY CHANGE IN DC PLAN/NEEDS
--- NOTE | 2023-03-31 12:57 | HO.PM.IMPN ---
Subjective Subjective Date of Service: 03/31/23 Interval History: alcohol withdrawal ,afib rvr Review of Systems denies any chest pain has body pains also bid toe foot area mild apin (says ahyvon hx of gout) Physical Exam Vital Signs: Vital Signs: Last Vital Signs Temp 98.1 F 03/31/23 11:08 Pulse 111 H 03/31/23 11:08 Resp 20 03/31/23 11:08 BP 134/61 03/31/23 11:08 Pulse Ox 91 L 03/31/23 11:08 O2 Del Method CPAP 03/31/23 11:08 O2 Flow Rate 2 03/29/23 11:05 BMI result Body Mass Index 42.0 Appearance: Alert.? Oriented X3.?has tremers cvs: irregular rythem, [id number] . res: clear to auscultation ,no rhonchii or wheezing abd: no rebound or guarding ,nt, bs present. ext pulses present , no cyanosis neuro: nonfocal Objective Data Active Medications Acetaminophen (Acetaminophen 325 Mg Tablet) 650 mg PO Q12H PRN PRN Reason: pain Last Admin: 03/31/23 08:39 Dose: 650 mg Documented By: JACK Albuterol Sulfate (Albuterol Sulfate 90 Mcg 8 Gm Inhaler) 2 puff INHALE RQID [facility] Last Admin: 03/31/23 12:11 Dose: Not Given Documented By: PIEDAD Non-Admin Reason: Pt asleep, on home cpap. Amlodipine Besylate (Amlodipine Besylate 5 Mg Tablet) 5 mg PO DAILY [facility]; Protocol Last Admin: 03/31/23 08:31 Dose: 5 mg Documented By: JACK Apixaban (Apixaban 5 Mg Tablet) 5 mg PO BID [facility] Last Admin: 03/31/23 08:31 Dose: 5 mg Documented By: JACK Atorvastatin Calcium (Atorvastatin Calcium 20 Mg Tablet) 20 mg PO DAILY [facility] Last Admin: 03/31/23 08:30 Dose: 20 mg Documented By: JACK Cefuroxime Axetil (Cefuroxime Axetil 250 Mg Tablet) 250 mg PO BID [facility] Stop: 04/04/23 09:00 Last Admin: 03/31/23 08:30 Dose: 250 mg Documented By: JACK Cyclobenzaprine HCl (Cyclobenzaprine Hcl 10 Mg Tablet) 10 mg PO BEDTIME [facility] Last Admin: 03/30/23 20:45 Dose: 10 mg Documented By: JANNETTE Docusate Sodium (Docusate Sodium 100 Mg Capsule) 100 mg PO DAILY PRN PRN Reason: Constipation Doxazosin Mesylate (Doxazosin Mesylate 2 Mg Tablet) 4 mg PO BEDTIME [facility] Last Admin: 03/30/23 20:46 Dose: 4 mg Documented By: JANNETTE Fluoxetine HCl (Fluoxetine Hcl 20 Mg Capsule) 40 mg PO DAILY [facility] Last Admin: 03/31/23 08:30 Dose: 40 mg Documented By: JACK Folic Acid (Folic Acid 1 Mg Tablet) 1 mg PO DAILY [facility] Last Admin: 03/31/23 08:31 Dose: 1 mg Documented By: JACK Furosemide (Furosemide 20 Mg Tablet) 30 mg PO DAILY [facility]; Protocol Last Admin: 03/31/23 08:31 Dose: 30 mg Documented By: JACK Gabapentin (Gabapentin 300 Mg Capsule) 300 mg PO BID [facility] Last Admin: 03/31/23 08:31 Dose: 300 mg Documented By: JACK Ibuprofen (Ibuprofen 400 Mg Tablet) 400 mg PO BID [facility] Last Admin: 03/31/23 09:33 Dose: 400 mg Documented By: JACK Lisinopril (Lisinopril 2.5 Mg Tablet) 2.5 mg PO DAILY [facility]; Protocol Last Admin: 03/31/23 08:31 Dose: 2.5 mg Documented By: JACK [facility] ([facility] Mg [facility] Admin: 03/31/23 08:31 Dose: 400 mg Documented By: JACK Metformin HCl (Metformin Hcl 850 Mg Tablet) 850 mg PO DAILY@0800 [facility] Last Admin: 03/31/23 08:31 Dose: 850 mg Documented By: JACK Metoprolol Tartrate (Metoprolol Tartrate 50 Mg Tablet) 50 mg PO BID [facility]; Protocol Multivitamins/Vitamin C (Multivitamin Tablet) 1 tab PO DAILY [facility] Stop: 04/02/23 13:44 Last Admin: 03/31/23 08:31 Dose: 1 tab Documented By: JACK Omeprazole (Omeprazole 40 Mg Rickie.) 40 mg PO BID@0630,1630 [facility] Ondansetron HCl (Ondansetron Hcl 4 Mg/2 Ml Vial) 4 mg IVPUSH Q8H PRN PRN Reason: Nausea and Vomiting Pharmacy Consult (Consult Rx Etoh Phenob Im/Po) 1 each MISCELLANE ONCE PRN; Protocol PRN Reason: Consult order Phenobarbital (Phenobarbital 30 Mg Tablet) 60 mg PO BID [facility]; Protocol Stop: 04/01/23 09:01 Last Admin: 03/31/23 08:31 Dose: 60 mg Documented By: JACK Phenobarbital (Phenobarbital 30 Mg Tablet) 30 mg PO BID [facility]; Protocol Stop: 04/03/23 09:01 Phenobarbital (Phenobarbital 30 Mg Tablet) 30 mg PO DAILY [facility]; Protocol Stop: 04/05/23 09:01 Sodium Chloride (0.9 % Sodium Chloride Flush 3 Ml Syringe) [facility] Last Admin: 03/31/23 08:31 Dose: 3 ml Documented By: JACK Thiamine HCl (Thiamine Hcl 100 Mg Tablet) 100 mg PO DAILY [facility] Stop: 04/02/23 13:44 Last Admin: 03/31/23 08:30 Dose: 100 mg Documented By: JACK Trolamine Salicylate (Trolamine Salicylate 10 % Cream 85 Gm Tube) 1 appl TOPICAL ONCE PRN; Protocol PRN Reason: Pain, Mild (Pain Scale 1-3) Last Admin: 03/31/23 08:40 Dose: 1 appl Documented By: JACK Labs 03/31/23 06:41 03/31/23 06:41 Labs: Laboratory Results - last 24 hr 03/30/23 03/31/23 15:26 06:41 MCV 88.7 MCH 29.3 MCHC 33.0 RDW 14.1 Plt Count 151 L MPV 11.1 Immature Gran % (Auto) 0.6 H Neut % (Auto) 71.1 Lymph % (Auto) 16.5 L Hendry % (Auto) 9.7 Eos % (Auto) 1.7 Baso % (Auto) 0.4 Lymph # (Auto) 1.7 Hendry # (Auto) 1.0 Eos # (Auto) 0.2 Baso # (Auto) 0.0 Abs Immat Gran (auto) 0.06 H Absolute Neuts (auto) 7.2 Absolute Nucleated RBC 0.000 Nucleated RBC % (auto) 0.0 Anion Gap 19 Estim Creat Clear Calc 92.3 Estimated GFR 59 Random Glucose 150 H Calcium 9.6 Magnesium 1.5 L 1.8 Total Bilirubin 1.2 H AST 45 H ALT 21 Alkaline Phosphatase 143 H Total Protein 7.7 Albumin 3.4 L Microbiology Microbiology Results: Microbiology 03/28/23 11:08 Blood Culture - Preliminary Blood - Venous No growth after 48 hours. 03/28/23 10:30 Blood Culture - Preliminary Blood - Venous No growth after 48 hours. 03/28/23 Unknown Urine Culture - Final Urine clean catch - Urine dawn top Escherichia coli Assessment and Plan (1) Alcohol abuse: Status: Acute (2) Acute UTI: Status: Acute (3) Hypomagnesemia: Status: Acute Plan 63-year-old male with a PMH significant for HFpEF, alcohol use disorder, persistent AFib on Eliquis, HLD, HTN, [id number] diabetes type 2, obesity hypoventilation syndrome, MJ on CPAP at night, chronic respiratory failure who initially presented to the ED prior on 03/28/2023 for evaluation of diarrhea. Patient be admitted to the hospital under telemetry for acute alcohol withdrawal. Acute alcohol withdrawal Has been drinking daily up to 10+ nips daily for the past 10-15 years Last drink 4 days prior on 03/26/2023 Patient with mild upper extremity tremors, increased agitation, denies hallucinations ciwa improving 2-3 range Phenobarb protocol ,Daily multivitamin, folic acid, thiamine,Continue PPI Follow lytes, Mag, BMP Addiction Medicine consult Monitor on telemetry Left ankle tendinosis with associated tenosynovitis Orthopedic consult PT consult Hypomagnesemia repelted and resolved. Hx of multiple falls Patient states he has fallen 5-6 times in the past 2 years, most recently 2-3 months ago States currently he is unsteady on feet, uses walker at baseline Reports lightheadedness with standing Will get orthostatics PT evaluation Chronic AFib with rvr hr is 130-140 range given iv metoprolol - hr seems improving in 110 range adjusted metoprolol to 50 mg bid ,continue Eliquis. Chronic hypoxic and hypercapnic respiratory failure Currently not in acute exacerbation, satting at 94% on RA Continue home inhalers MJ CPAP at night HTN Continue amlodipine, lisinopril, metoprolol HLD Continue statin hx of gout: he says he takes ibuprofen at home added ibuprofen Obesity class III Encourage weight loss Full Code DVT Prophylaxis: On Eliquis ongoing hospitalization need for treatment of?acute alcohol withdrawal with phenobarb protocol and close monitoring,afib with rvr -need iv meds for control,moniter tele , Pt will also require PT and case management evaluation. Time Spent With Patient Time: Total time managing care of this patient today ____ minutes. Quality Stroke Does the patient have a stroke diagnosis?: No VTE Prior VTE?: No VTE Risk Level:: Medical - moderate - high VTE Device Contraindication: Treatment Not Indicated VTE Drug Contraindication: N/A - Med Ordered
--- NOTE | 2023-03-31 15:37 | MHC.RECOVRN ---
Met with pt in 469 after consult placed to Addiction Medicine for alcohol use. Pt currently admitted for alcohol withdrawal. Pt laying in bed, awake, alert, easily engages in conversation. Pt reports drinking 10 nips Fireball daily x 7 months. Prior to that pt had not been drinking x 2.5 months. Pt states I was just hanging out and watching t.v. Pt denies interest in reducing or abstaining at this time. Pt provided with written resources as well as t/w contact information if needed.
[2023-03-31] MEDS: Cyclobenzaprine HCl 10 MG TABLET PO (21:23)
[2023-03-31] MEDS: Doxazosin Mesylate 2 MG TABLET 4 MG PO (21:24)
[2023-04-01] VITALS (7 sets, daily range): BP systolic 106–119; BP diastolic 61–67; PULSE 71–89; RESP 20; TEMP 36.3–37.1; O2SAT 91–97
[2023-04-01] MEDS: 0.9 % Sodium Chloride Flush 3 ML SYRINGE IVFLUSH (00:07)
--- NOTE | 2023-04-01 03:29 | PC.NURSE ---
0317; Patient had a 5 beat vtach, hospitalist made aware.
[2023-04-01] MEDS: PHENobarbitaL 30 MG TABLET 60 MG PO (08:17)
[2023-04-01] MEDS: lisinopriL 2.5 MG TABLET PO (08:18)
[2023-04-01] MEDS: amLODIPine Besylate 5 MG TABLET PO (08:18)
[2023-04-01] MEDS: metFORMIN HCl 850 MG TABLET PO (08:18)
[2023-04-01] MEDS: Thiamine HCL 100 MG TABLET PO (08:18)
[2023-04-01] MEDS: Atorvastatin Calcium 20 MG TABLET PO (08:19)
[2023-04-01] MEDS: Gabapentin 300 MG CAPSULE PO (08:22)
[2023-04-01] MEDS: Multivitamin TABLET 1 TAB PO (08:22)
--- NOTE | 2023-04-01 09:22 | MHC.CM.PN ---
Addendum entered by Sylvia Valdovinos 04/01/23 14:44: [facility] unable to accept pt, pt informed and would like [facility] instead. [facility] able to accept pt, pt informed. Original Note: PT is now recommending pt discharge home with PT. This CM met with pt to discuss and he prefers [facility], referral placed. CM will continue to follow.
--- NOTE | 2023-04-01 13:43 | PM.EVENT ---
Event Note Date of Service: 04/01/23 Event Note: patient seen this morning denies left ankle pain he has been WBAT without pain Time Spent With Patient Time: Total time managing care of this patient today ____ minutes.
--- NOTE | 2023-04-01 14:41 | W.MHC.F2F ---
Service Date Service Date: 04/01/23 Encounter Date of encounter: 04/01/23 Encounter: Alcohol withdrawal, UTI, presumed gout flare Reasons for Services Signs and symptoms assessed: Fever or abdominal pain or new symptoms. Reason for group home: medication management, medication treatment and teach disease management Reason for physical therapy: home safety and mobility, therapeutic exercises, restore joint function, gait/transfer training, assess need for DME, ADL training, energy conservation and other MD Overseeing Care: Ortiz Deluca Homebound: Leaving the home is medically contraindicated at this time without the asist of a device and/or another person due th the listed conditions above and below. Reason homebound: weakness related to hospital stay Homebound supporting statement: Patient is generalized weak post hospitalization stay, also has fall history, multiple comorbidities: Need help with labs, appointments, PT. Certification: Based on the above findings, I certify that this patient is confined to the home and needs intermittent group home care, physical therapy and/or speech therapy, or continues to need occupational therapy. The patient is under my care, and I have initiated the establishment of the plan of care. The patient will be followed by a physician who will periodically review the plan of care. Time Spent With Patient Time: Total time managing care of this patient today ____ minutes.
--- NOTE | 2023-04-01 14:43 | PM.DS ---
DS: Providers Provider Date of Service: 04/01/23 Date of admission: 03/30/23 13:34 Date of discharge: 04/01/23 Primary care physician: BABATUNDE Mckoy Consults: 03/30/23 13:57 Addiction Medicine Routine Consulting Provider: Addiction Covering Reason for consultation: Alcohol use disorder 03/31/23 13:04 Consult to Orthopedics Routine Consulting Provider: [facility] Reason for consultation: Left ankle tendinosis with associated tenosynovitis Attending physician on discharge: Josie Tapia Discharging clinician: Josie Tapia DS: Diagnosis Discharge Diagnosis (1) Alcohol abuse: Status: Acute (2) Acute UTI: Status: Acute (3) Hypomagnesemia: Status: Acute DS: Summary Hospital Course Hospital Course: 63-year-old male with a PMH significant for HFpEF, alcohol use disorder, persistent AFib on Eliquis, HLD, HTN, [id number] diabetes type 2, obesity hypoventilation syndrome, MJ on CPAP at night, chronic respiratory failure who initially presented to the ED prior on 03/28/2023 for evaluation of diarrhea. Pt had one episode of non-bloody diarrhea with additional lesser episode that night. Patient also presents with swollen left ankle with diffuse tenderness. X-ray of the left ankle showed erosive changes and MRI showed tibialis anterior tendinosis with associated tenosynovitis. ED consulted Ortho, who did not recommend admission for his condition. Patient with a history of 5-6 falls in the last couple of years with most recent 2-3 months ago. Patient was seen and evaluated at [facility] for his last fall. Labs on 03/28/2023 significant for leukocytosis of 14.6, Mag 1.3, and ethyl alcohol 118. UA positive for UTI. Patient was given Mag IV in the ED and started on a 7 day course of cefuroxime. Patient was admitted to [facility] as he was awaiting PT and Case Management evaluation. While in [facility] patient developed a CIWA of 8 and started on phenobarb protocol. Today, patient reports he has been drinking 10+ nips of Fireball Whiskey daily for the past 10-15 years. Last drink 4 days prior on . 03/26/2023 patient admits to upper extremity tremors and feeling edgy . Denies auditory or visual hallucinations. Patient be admitted to the hospital under telemetry for acute alcohol withdrawal. Hospital course: Patient was admitted secondary to alcohol withdrawal, UTI, hypomagnesemia, and presumed gout flare: Patient was given phenobarb protocol, for UTi received Ceftin, hypomagnesemia repleted and resolved. patient also received p.o. steroids for gout flare. Will supportive care alcohol withdrawal improved, UTI also improving. Will give p.o. prednisone for 6 more days for gout flare. Patient was strongly advised to abstain from alcohol. Patient had left foot pain and MRI was done-which showed Mild associated tenosynovitis. Seen by Ortho-recommended to follow up outpatient. Currently patient is asymptomatic ,no pain, range of motion intact. Patient was seen by PT patient will go home with home VNA with PT. plan: Complete course of p.o. Ceftin 250 b.i.d. for 4 more days Patient had left foot pain and MRI was done-which showed Mild associated tenosynovitis. Seen by Ortho-recommended to follow up outpatient. complete course of prednisone 20 mg daily for 6 more days. Above management discussed with the patient in detail length she understand and in agreement with the above plan, time spent 50 minute. Time Spent with Patient Time attestation: Total time managing care of this patient today ____ minutes. Discharge coordination time: Greater than 30 minutes Quality: Safe Use of Opioids Does Pt have an Active Cancer Diagnosis on the Problem List?: No Quality: Stroke Does the patient have a stroke diagnosis?: No Physical Exam Vital Signs: Vital Signs: Last Vital Signs Temp 97.9 F 04/01/23 11:01 Pulse 78 04/01/23 12:17 Resp 20 04/01/23 12:17 BP 119/61 04/01/23 11:01 Pulse Ox 97 04/01/23 11:01 O2 Del Method Room Air 04/01/23 11:01 O2 Flow Rate 2 04/01/23 08:00 BMI result Body Mass Index 42.0 DS: Data Data Completed and Pending Completed studies during hospitalization [Text1]: Procedures Assistance with Respiratory Ventilation, Less than 24 Consecutive Hours, Continuous Positive Airway Pressure (01/24/22) Bypass Trachea to Cutaneous with Tracheostomy Device, Percutaneous Approach (05/30/20) Change Tracheostomy Device in Trachea, External Approach (05/30/20) Detoxification Services for Substance Abuse Treatment (01/24/22) Drainage of Left Lower Lung Lobe, Via Natural or Artificial Opening Endoscopic, Diagnostic (05/30/20) Insertion of Endotracheal Airway into Trachea, Via Natural or Artificial Opening (05/30/20) Insertion of Feeding Device into Stomach, Percutaneous Approach (05/30/20) Insertion of Infusion Device into Right Atrium, Percutaneous Approach (05/30/20) Insertion of Infusion Device into Superior Vena Cava, Percutaneous Approach (05/30/20) Performance of Cardiac Output, Single, Manual (05/30/20) Performance of Urinary Filtration, Intermittent, Less than 6 Hours Per Day (05/30/20) Respiratory Ventilation, Greater than 96 Consecutive Hours (05/30/20) Ultrasonography of Superior Vena Cava, Guidance (05/30/20) Labs on day of discharge: Laboratory Results - last 24 hr 04/01/23 08:07 Sodium 136 Potassium 4.1 Chloride 99 Carbon Dioxide 22 Anion Gap 19 BUN 34 H Creatinine 1.28 Estim Creat Clear Calc 89.4 Estimated GFR 57 Random Glucose 136 H Calcium 9.8 Magnesium 2.1 Preliminary micro results at discharge 03/28/23 11:08 Blood Culture - Preliminary Blood - Venous No growth after 48 hours. 03/28/23 10:30 Blood Culture - Preliminary Blood - Venous No growth after 48 hours. Imaging Chest x-ray: Radiologist's impression: ITS Impressions Chest X-Ray 03/28/23 02:57 IMPRESSION: Suggestion of central peribronchial thickening without focal consolidation. Cardiac silhouette remains enlarged. Ankle X-Ray 03/28/23 07:49 IMPRESSION: Erosive change medial talus with associated soft tissue prominence. MRI left ankle may be considered for further characterization. Ankle MRI 03/29/23 12:55 IMPRESSION: 1. Marked tibialis anterior tendinosis with a small longitudinal partial tear at the level of the ankle joint. Mild associated tenosynovitis. 2. Small ankle joint effusion with mild synovitis. No appreciable erosive changes are identified on MRI. 3. Mild multifocal arthrosis in the ankle and midfoot. 4. Mild Achilles tendinosis. 5. Diffuse soft tissue swelling and subcutaneous edema at the ankle, most pronounced anteriorly. 6. Mild peroneal tendinosis and tenosynovitis. Mild posterior tibial tenosynovitis. 7. Diffuse atrophy and fatty replacement of the intrinsic foot musculature. Discharge Plan Discharge Anticipated Discharge Date/Time: 04/01/23 14:30 Patient Disposition: Home Health Service Discharge Diagnosis: alcohol withdrawal ,gout flare ,uti Referrals: [facility] [Provider Group] (MR/MR ankle LT wo con IMPRESSION: 1. Marked tibialis anterior tendinosis with a small longitudinal partial tear at the level of the ankle joint. Mild associated tenosynovitis. 2. Small ankle joint effusion with mild synovitis. No appreciable erosive changes are identified on MRI. 3. Mild multifocal arthrosis in the ankle and midfoot. 4. Mild Achilles tendinosis. 5. Diffuse soft tissue swelling and subcutaneous edema at the ankle, most pronounced anteriorly. 6. Mild peroneal tendinosis and tenosynovitis. Mild posterior tibial tenosynovitis. 7. Diffuse atrophy and fatty replacement of the intrinsic foot musculature.) Mikayla Lopez [Outside] - 1 Week Ortiz Deluca FNP- [Primary Care Provider] - Discharge Medications: New cefuroxime axetil 250 mg Tablet 250 mg PO BID Qty: 8 0RF prednisone 20 mg tablet 20 mg PO DAILY Qty: 6 0RF Continued (DME) blood-glucose meter [FreeStyle Lite Meter] Kit See Rx Instructions .ROUTE .MEDSUPPLY Qty: 1 0RF Rx Instructions: check sugar twice a day (DME) lancets [FreeStyle Lancets] 28 gauge misc See Rx Instructions .ROUTE .MEDSUPPLY Qty: 100 2RF Rx Instructions: check sugar twice a day (DME) FreeStyle David 2 [place] Misc See Rx Instructions .Route Qty: 1 0RF Rx Instructions: tid testing (DME) FreeStyle David 2 Sensor Kit See Rx Instructions .Route Qty: 1 3RF Rx Instructions: tid testing albuterol sulfate 90 mcg/actuation HFA aerosol inhaler 2 puff inhalation QID Qty: 8.5 2RF furosemide 20 mg tablet 30 mg PO DAILY Qty: 135 1RF Eliquis 5 mg tablet 5 mg PO BID Qty: 180 1RF amlodipine 5 mg tablet 5 mg PO DAILY Qty: 90 1RF lisinopril 2.5 mg tablet 2.5 mg PO DAILY Qty: 90 1RF fluoxetine 40 mg capsule 40 mg PO DAILY Qty: 90 1RF folic acid 1 mg tablet 1 mg PO DAILY Qty: 90 1RF gabapentin 300 mg capsule 300 mg PO BID 30 Days Qty: 60 4RF rosuvastatin 5 mg tablet 5 mg PO DAILY Qty: 90 1RF omeprazole 20 mg capsule,delayed release(DR/EC) 40 mg PO DAILY@0630 Qty: 180 1RF metformin 850 mg tablet 850 mg PO DAILY Qty: 90 1RF cyclobenzaprine 10 mg tablet 10 mg PO BEDTIME acetaminophen [Tylenol Arthritis Pain] 650 mg tablet extended release 650 mg PO Q12H PRN (Reason: pain) 30 Days Qty: 60 0RF terazosin 5 mg capsule 5 mg PO BEDTIME 90 Days Qty: 90 1RF Changed metoprolol tartrate 25 mg tablet 50 mg PO BID Qty: 180 1RF Discharge Orders: Discharge Order (Routine); Ordered 04/01/23 Ordered By: Josie Tapia Diet: Advance to usual diet Activity on Discharge: As tolerated Stand Alone Forms: Patient Portal Discharge page Activity Restrictions/Additional Instructions: Workup in the ER showed you have a UTI Take the prescribed antibiotics for this; complete the entire course and do not miss any doses Recommend following up with Orthopedics for your ankle pain MR/MR ankle LT wo con IMPRESSION: 1. Marked tibialis anterior tendinosis with a small longitudinal partial tear at the level of the ankle joint. Mild associated tenosynovitis. 2. Small ankle joint effusion with mild synovitis. No appreciable erosive changes are identified on MRI. 3. Mild multifocal arthrosis in the ankle and midfoot. 4. Mild Achilles tendinosis. 5. Diffuse soft tissue swelling and subcutaneous edema at the ankle, most pronounced anteriorly. 6. Mild peroneal tendinosis and tenosynovitis. Mild posterior tibial tenosynovitis. 7. Diffuse atrophy and fatty replacement of the intrinsic foot musculature. Care Plan Goals: Patient was admitted secondary to alcohol withdrawal, UTI, hypomagnesemia, and presumed gout flare: Patient was given phenobarb protocol, for UTi received Ceftin, hypomagnesemia repleted and resolved. patient also received p.o. steroids for gout flare. Will supportive care alcohol withdrawal improved, UTI also improving. Will give p.o. prednisone for 6 more days for gout flare. Patient was strongly advised to abstain from alcohol. Patient had left foot pain and MRI was done-which showed Mild associated tenosynovitis. Seen by Ortho-recommended to follow up outpatient. Currently patient is asymptomatic ,no pain, range of motion intact. Patient was seen by PT patient will go home with home VNA with PT. Health Concerns: as above. Plan of Treatment: Complete course of p.o. Ceftin 250 b.i.d. for 4 more days Patient had left foot pain and MRI was done-which showed Mild associated tenosynovitis. Seen by Ortho-recommended to follow up outpatient. complete course of prednisone 20 mg daily for 6 more days. Assessment: As above.
--- NOTE | 2023-04-01 14:48 | MHC.CM.PN ---
Pt medically cleared for D/C home with [facility]. Transport set up via [facility] at 4pm today.
--- NOTE | 2023-04-01 15:58 | PM.EVENT ---
Event Note Date of Service: 04/01/23 Event Note: Addiction consult placed Patient seen by Recovery Support RN Declined any intervention or support Time Spent With Patient Time: Total time managing care of this patient today ____ minutes.
--- NOTE | 2023-04-01 16:06 | PM.CNOR ---
History of Present Illness HPI Consult date: 04/01/23 Chief complaint: SOB, Chest Pain, Abdominal Pain Narrative: 63 yo male admitted to the medical service for acute alcohol withdrawal. He presented with c/o diarrhea and also concerned about left ankle swelling. No injury to the left ankle. He does have a h/o gout. Review of Systems Review of Systems: per hpi [facility] Past Medical History Medical History History of cardiac arrest (~05/2020) Nicotine dependence, cigarettes, uncomplicated Personal history of colonic polyps Hypoventilation associated with obesity syndrome Encephalopathy chronic Morbid obesity MJ (obstructive sleep apnea) Effusion, right knee CKD (chronic kidney disease) stage 3, GFR 30-59 ml/min Cirrhosis Diabetes Obesity (BMI 35.0-39.9 without comorbidity) Wernicke encephalopathy Obstructive sleep apnea (adult) (pediatric) Alcohol use disorder, severe, dependence Rib fractures CHF (congestive heart failure) Left atrial enlargement Persistent atrial fibrillation Depression Gout Arthritis Anxiety HTN (hypertension) Family History Family History Father Lung cancer Mother No problems noted. Maternal Aunt History of heart attack Sister No problems noted. Brother Cancer of kidney Brother No problems noted. Brother No problems noted. Brother No problems noted. Brother No problems noted. Brother No problems noted. Other Substance use disorder Surgical History Surgical History History of tracheostomy (~2019) History of bronchoscopy (~2019) History of colonoscopy (~2021) History of esophagogastroduodenoscopy (EGD) (~2021) History of cardioversion (~2020) S/P percutaneous endoscopic gastrostomy (PEG) tube placement (~2019) Social History Social History Household Members: Significant Other and Children Housing: House Do you presently have visiting nurse or other home services: No Unable to assess alcohol history related to: Unknown Alcohol intake: current Alcohol intake frequency: 3 or more drinks per day Alcohol type: beer and hard liquor Patient Tobacco Use Status: Current everyday Tobacco user Tobacco use type: Cigarette Cigarette Packs Per Day: 1 Cigarettes Per Day: 20.0 Smoked in Last 30 Days: Yes e-Cigarette/Vaping Use: Never Used Second Hand Smoke Exposure: No Use of substances other than those prescribed or required for medical reasons: No Advance Directives: Yes Advance Directives on File: Yes Advance Directives Date on File: 06/05/20 service: Yes Current occupational status: unemployed Cognitive needs: No Hearing needs: No Vision needs: No Meds Allergies Allergy/AdvReac Type Severity Reaction Status Date / Time No Known Allergies Allergy Verified 09/29/22 14:11 [No Known Allergies*] Active Medications: Current Medications Acetaminophen (Acetaminophen 325 Mg Tablet) 650 mg PO Q12H PRN PRN Reason: pain Last Admin: 03/31/23 08:39 Dose: 650 mg Albuterol Sulfate (Albuterol Sulfate 90 Mcg 8 Gm Inhaler) 2 puff INHALE RQID [facility] Last Admin: 04/01/23 15:58 Dose: 2 puff Amlodipine Besylate (Amlodipine Besylate 5 Mg Tablet) 5 mg PO DAILY [facility]; Protocol Last Admin: 04/01/23 08:18 Dose: 5 mg Apixaban (Apixaban 5 Mg Tablet) 5 mg PO BID [facility] Last Admin: 04/01/23 08:19 Dose: 5 mg Atorvastatin Calcium (Atorvastatin Calcium 20 Mg Tablet) 20 mg PO DAILY [facility] Last Admin: 04/01/23 08:19 Dose: 20 mg Cefuroxime Axetil (Cefuroxime Axetil 250 Mg Tablet) 250 mg PO BID [facility] Stop: 04/04/23 09:00 Last Admin: 04/01/23 08:23 Dose: 250 mg Cyclobenzaprine HCl (Cyclobenzaprine Hcl 10 Mg Tablet) 10 mg PO BEDTIME [facility] Last Admin: 03/31/23 21:23 Dose: 10 mg Docusate Sodium (Docusate Sodium 100 Mg Capsule) 100 mg PO DAILY PRN PRN Reason: Constipation Doxazosin Mesylate (Doxazosin Mesylate 2 Mg Tablet) 4 mg PO BEDTIME [facility] Last Admin: 03/31/23 21:24 Dose: 4 mg Fluoxetine HCl (Fluoxetine Hcl 20 Mg Capsule) 40 mg PO DAILY [facility] Last Admin: 04/01/23 08:16 Dose: 40 mg Folic Acid (Folic Acid 1 Mg Tablet) 1 mg PO DAILY [facility] Last Admin: 04/01/23 08:18 Dose: 1 mg Furosemide (Furosemide 20 Mg Tablet) 30 mg PO DAILY [facility]; Protocol Last Admin: 04/01/23 08:19 Dose: 30 mg Gabapentin (Gabapentin 300 Mg Capsule) 300 mg PO BID [facility] Last Admin: 04/01/23 08:22 Dose: 300 mg Lisinopril (Lisinopril 2.5 Mg Tablet) 2.5 mg PO DAILY [facility]; Protocol Last Admin: 04/01/23 08:18 Dose: 2.5 mg Magnesium Oxide (Magnesium Oxide 400 Mg Tablet) 400 mg PO BIDPC [facility] Last Admin: 04/01/23 14:39 Dose: Not Given Metformin HCl (Metformin Hcl 850 Mg Tablet) 850 mg PO DAILY@0800 [facility] Last Admin: 04/01/23 08:18 Dose: 850 mg Metoprolol Tartrate (Metoprolol Tartrate 50 Mg Tablet) 50 mg PO BID [facility]; Protocol Last Admin: 04/01/23 08:19 Dose: 50 mg Multivitamins/Vitamin C (Multivitamin Tablet) 1 tab PO DAILY [facility] Stop: 04/02/23 13:44 Last Admin: 04/01/23 08:22 Dose: 1 tab Omeprazole (Omeprazole 40 Mg Capsule.Dr) 40 mg PO BID@0630,1630 [facility] Last Admin: 04/01/23 14:39 Dose: Not Given Ondansetron HCl (Ondansetron Hcl 4 Mg/2 Ml Vial) 4 mg IVPUSH Q8H PRN PRN Reason: Nausea and Vomiting Pharmacy Consult (Consult Rx Etoh Phenob Im/Po) 1 each MISCELLANE ONCE PRN; Protocol PRN Reason: Consult order Phenobarbital (Phenobarbital 30 Mg Tablet) 30 mg PO BID [facility]; Protocol Stop: 04/03/23 09:01 Phenobarbital (Phenobarbital 30 Mg Tablet) 30 mg PO DAILY [facility]; Protocol Stop: 04/05/23 09:01 Prednisone (Prednisone 20 Mg Tablet) 40 mg PO DAILY [facility] Last Admin: 04/01/23 09:58 Dose: 40 mg Sodium Chloride (0.9 % Sodium Chloride Flush 3 Ml Syringe) [address] [facility] Last Admin: 04/01/23 13:33 Dose: Not Given Thiamine HCl (Thiamine Hcl 100 Mg Tablet) 100 mg PO DAILY [facility] Stop: 04/02/23 13:44 Last Admin: 04/01/23 08:18 Dose: 100 mg Trolamine Salicylate (Trolamine Salicylate 10 % Cream 85 Gm Tube) 1 appl TOPICAL ONCE PRN; Protocol PRN Reason: Pain, Mild (Pain Scale 1-3) Last Admin: 03/31/23 08:40 Dose: 1 appl Home Medications Medication Instructions Recorded Confirmed Last Taken Type cyclobenzaprine 10 mg tablet 10 mg PO BEDTIME 06/30/22 03/28/23 Unknown History Physical Exam Vital Signs: Vital Signs: Last Vital Signs Temp 97.9 F 04/01/23 11:01 Pulse 74 04/01/23 15:59 Resp 20 04/01/23 15:59 BP 119/61 04/01/23 11:01 Pulse Ox 97 04/01/23 11:01 O2 Del Method Room Air 04/01/23 11:01 O2 Flow Rate 2 04/01/23 08:00 BMI result Body Mass Index 42.0 Extrem: Other: left ankle normal to inspection. mild pitting edema present, no erythema or fluctulance. No pain with palpation. Full ROm, NVi. Results Labs 03/31/23 06:41 04/01/23 08:07 Labs: Abnormal lab results 04/01/23 Range/Units 08:07 BUN 34 H (9-16) mg/dL Random Glucose 136 H (60-115) mg/dL H & H 03/28/23 03/31/23 Range/Units 00:15 06:41 Hgb 14.4 13.0 L (14.0-18.0) g/dl Hct 44.4 39.4 L (42.0-52.0) % All other labs normal. Assessment and Plan (1) Left ankle swelling: Status: Acute Plan Patient feels better and has been wbat without pain continue to inc activity as tolerated NSAIDs/tylenol prn Time Spent With Patient Time: Total time managing care of this patient today ____ minutes. Procedures Date of Service Date of Service: 04/08/23
== END 2023-04-01 17:10 | disposition home health service (06) | DRG 554 ==
LOC: HO.ED 03-30 11:12 → HO.EDOVER 03-30 13:45 → HO.IMC 03-30 14:01
PROVIDERS: Emergency Medicine; Physician Assistant; Admitting Provider Student in an Organized Health Care Education/Training Program; Emergency Provider Emergency Medicine; PCP Nurse Practitioner Family; Visit Provider Internal Medicine
DX: M10.9 Gout, unspecified (principal); F10.239 Alcohol dependence with withdrawal, unspecified; E66.2 Morbid (severe) obesity with alveolar hypoventilation; Z68.41 Body mass index [BMI] 40.0-44.9, adult; I48.20 Chronic atrial fibrillation, unspecified; J96.12 Chronic respiratory failure with hypercapnia; J96.11 Chronic respiratory failure with hypoxia; F17.210 Nicotine dependence, cigarettes, uncomplicated; Z20.822 Contact with and (suspected) exposure to COVID-19; E83.42 Hypomagnesemia; Y90.5 Blood alcohol level of 100-119 mg/100 ml; I10 Essential (primary) hypertension; Z71.6 Tobacco abuse counseling; Z79.01 Long term (current) use of anticoagulants; Z79.84 Long term (current) use of oral hypoglycemic drugs; Z79.899 Other long term (current) drug therapy
CPT/HCPCS: 36415; 71045; 73610; 73721; 80048; 80053; 80076; 80307; 81001; 82947; 83605; 83690; 83735; 83880; 84484; 85025; 85652; 86140; 87040; 87086; 87088; 87186; 87635; 93005; 94640; 94660; 97116; 97162; 99285; J2560; J3370; J3475

== ENCOUNTER → 2023-03-30 13:34 | Outpatient (BNV) | payer MEDICARE, OTHER, MEDICAID, SELFPAY | PROVIDERS: Admitting Provider Student in an Organized Health Care Education/Training Program; Emergency Provider Emergency Medicine; PCP Nurse Practitioner Family; Visit Provider Physician Assistant | DX: M25.472 Effusion, left ankle (principal) | CPT/HCPCS: 99221; 99499 ==

== ENCOUNTER → 2023-03-30 13:34 | Outpatient (BNV) | payer MEDICARE, OTHER, MEDICAID, SELFPAY | PROVIDERS: Admitting Provider Student in an Organized Health Care Education/Training Program; Emergency Provider Emergency Medicine; PCP Nurse Practitioner Family; Visit Provider Student in an Organized Health Care Education/Training Program | DX: F10.10 Alcohol abuse, uncomplicated (principal); N39.0 Urinary tract infection, site not specified; E83.42 Hypomagnesemia | CPT/HCPCS: 99223; 99232; 99239; G0180 ==

== ENCOUNTER 2023-04-04 02:06 | Emergency (ER) | payer MEDICARE, OTHER, MEDICAID, SELFPAY ==
[2023-04-04 02:19] VITALS: BP 107/58; BP 111/72; PULSE 92; PULSE 96; RESP 17; TEMP 36.7; O2SAT 93; O2SAT 95; BMI 42.3
--- NOTE | 2023-04-04 02:26 | ED.FALL ---
HPI - Fall General Chief Complaint: Fall Stated Complaint: Fall/ETOH back and hip pain Time Seen by Provider: 04/04/23 02:22 Source: patient and EMS Mode of arrival: EMS Limitations: no limitations History of Present Illness HPI Narrative: A 63-year-old male came in by ambulance after a mechanical fall. Patient admitted to drinking alcohol last night than his left knee gave out and patient fell 3 steps of stairs, uncertain if any LOC or head injury, complain of neck pain, complain of right hip and left knee pain. No CP, no abdominal pain, no SOB. Patient with chronic alcohol use disorder. Patient also been having a dry cough for the past 3 days but no fever or chills. Related Data Home Medications Medication Instructions Recorded Confirmed cyclobenzaprine 10 mg tablet 10 mg PO BEDTIME 06/30/22 03/28/23 Previous Rx's Medication Instructions Recorded blood-glucose meter (FreeStyle #1 ea 09/03/20 Lite Meter kit) lancets 28 gauge (FreeStyle #100 ea 02/02/21 Lancets) metformin 850 mg tablet 850 mg PO DAILY #90 tabs 02/22/22 FreeStyle David 2 [place] (flash #1 ea 07/03/22 glucose scanning reader) FreeStyle David 2 Sensor (flash #1 ea 07/03/22 glucose sensor) terazosin 5 mg capsule 5 mg PO BEDTIME 90 days #90 caps 07/21/22 albuterol sulfate 90 mcg/actuation 2 puff inhalation QID #8.5 grams 07/28/22 aerosol inhaler acetaminophen 650 mg 650 mg PO Q12H PRN pain 30 days 09/29/22 tablet,extended release (Tylenol #60 tabs Arthritis Pain) furosemide 20 mg tablet 30 mg (1.5 x 20 mg) PO DAILY #135 10/01/22 tabs apixaban 5 mg tablet (Eliquis) 5 mg PO BID #180 tabs 10/12/22 amlodipine 5 mg tablet 5 mg PO DAILY #90 tabs 11/29/22 lisinopril 2.5 mg tablet 2.5 mg PO DAILY #90 tabs 11/29/22 fluoxetine 40 mg capsule 40 mg PO DAILY #90 caps 11/30/22 folic acid 1 mg tablet 1 mg PO DAILY #90 tabs 12/02/22 gabapentin 300 mg capsule 300 mg PO BID 30 days #60 caps 02/07/23 rosuvastatin 5 mg tablet 5 mg PO DAILY #90 tabs 02/07/23 omeprazole 20 mg capsule,delayed 40 mg (2 x 20 mg) PO DAILY@0630 02/22/23 release #180 caps cefuroxime axetil 250 mg tablet 250 mg PO BID #8 tabs 04/01/23 metoprolol tartrate 25 mg tablet 50 mg (2 x 25 mg) PO BID #180 tabs 04/01/23 prednisone 20 mg tablet 20 mg PO DAILY #6 tabs 04/01/23 amoxicillin 875 mg-potassium 1 tab PO BID #14 tabs 04/04/23 clavulanate 125 mg tablet Allergies Allergy/AdvReac Type Severity Reaction Status Date / Time No Known Allergies Allergy Verified 09/29/22 14:11 [No Known Allergies*] Review of Systems Review of Systems: All other systems are reviewed and are negative Constitutional: Reports as per HPI and Reports no additional constitutional complaints Eyes: Reports as per HPI and Reports no additional eye complaints Reports system reviewed and no additional complaints, except as documented Cardiovascular: Reports as per HPI and Reports no additional cardiovascular complaints Respiratory: Reports as per HPI and Reports no additional respiratory complaints Gastrointestinal: Reports as per HPI and Reports no additional gastrointestinal complaints Genitourinary: Reports no additional female genitourinary complaints Musculoskeletal: Reports no additional musculoskeletal complaints Skin/Breast: Reports system reviewed and no additional complaints, except as docu Psychiatric: Reports no additional psychiatric complaints Endocrine: Reports no additional endocrine complaints Hematologic/Lymphatic: Reports no additional hematologic/lymphatic complaints Allergic/Immunologic: Reports no additional allergic/immunologic complaints Reports system reviewed and no additional complaints, except as documented and Reports Abnormal speech present [facility] Past Medical History Medical History History of cardiac arrest (~05/2020) Nicotine dependence, cigarettes, uncomplicated Personal history of colonic polyps Hypoventilation associated with obesity syndrome Encephalopathy chronic Morbid obesity MJ (obstructive sleep apnea) Effusion, right knee CKD (chronic kidney disease) stage 3, GFR 30-59 ml/min Cirrhosis Diabetes Obesity (BMI 35.0-39.9 without comorbidity) Wernicke encephalopathy Obstructive sleep apnea (adult) (pediatric) Alcohol use disorder, severe, dependence Rib fractures CHF (congestive heart failure) Left atrial enlargement Persistent atrial fibrillation Depression Gout Arthritis Anxiety HTN (hypertension) Surgical History History of tracheostomy (~2019) History of bronchoscopy (~2019) History of colonoscopy (~2021) History of esophagogastroduodenoscopy (EGD) (~2021) History of cardioversion (~2020) S/P percutaneous endoscopic gastrostomy (PEG) tube placement (~2019) Family History Family History Father Lung cancer Mother No problems noted. Maternal Aunt History of heart attack Sister No problems noted. Brother Cancer of kidney Brother No problems noted. Brother No problems noted. Brother No problems noted. Brother No problems noted. Brother No problems noted. Other Substance use disorder Social History Social History Household Members: Significant Other and Children Housing: House Do you presently have visiting nurse or other home services: No Unable to assess alcohol history related to: Unknown Alcohol intake: current Alcohol intake frequency: 3 or more drinks per day Alcohol type: beer and hard liquor Patient Tobacco Use Status: Current everyday Tobacco user Tobacco use type: Cigarette Cigarette Packs Per Day: 1 Cigarettes Per Day: 20.0 Smoked in Last 30 Days: Yes e-Cigarette/Vaping Use: Never Used Second Hand Smoke Exposure: No Use of substances other than those prescribed or required for medical reasons: No Advance Directives: Yes Advance Directives on File: Yes Advance Directives Date on File: 06/05/20 service: Yes Current occupational status: unemployed Cognitive needs: No Hearing needs: No Vision needs: No Physical Exam Vital Signs: Vital Signs: Last Vital Signs Temp 98.5 F 04/04/23 06:00 Pulse 87 04/04/23 06:00 Resp 16 04/04/23 06:00 BP 122/54 L 04/04/23 06:00 Pulse Ox 91 L 04/04/23 06:00 O2 Del Method Room Air 04/04/23 06:00 BMI result Body Mass Index 42.3 Vital signs have been reviewed and appear to be correct. Blood pressure elevated. Heart rate normal. Respiratory rate normal. Temperature normal. Oxygen saturation normal. Appearance: Alert. Oriented X3. No acute distress. Head: Normal external exam. Normocephalic. Atraumatic. No Matt signs noted. No raccoon eyes noted Eyes: PERRLA. EOMI. Conjunctiva and sclera normal. Eyelids normal. ENT: TM's Normal. Pharynx normal. Uvula midline. Moist mucous membranes. No trismus noted. No drooling noted. No muffled voice noted. Neck: Normal inspection. Neck supple. FROM. No adenopathy. Thyroid Normal. No meningeal signs. No neck mass noted. CVS: Normal heart rate and rhythm. Heart sound normal. No murmurs noted. Pulses normal throughout. Respiratory: No respiratory distress. Painless inspiration. Breath sounds normal. No wheezes/rales/rhonchi noted. Chest nontender. No accessory muscle usage noted or decreased air movement noted. Abdomen: Soft and nontender. Bowel sounds normal in all 4 quadrants. No distention noted. No organomegaly noted. No visible injury noted. Back: No CVA tenderness. Full range of motion noted. Skin: Skin warm and dry. Normal skin color. Normal skin turgor. No rashes/lesions/lacerations noted. Extremities: No lower extremity edema. Extremities exhibit normal range of motion. Extremities nontender. Neuro: Oriented X 3. Cranial nerve exam: II-XII are grossly intact No motor deficit. No sensory deficit. Reflexes normal. Course Course Course Narrative: Fall after alcohol intoxication negative CT head/C-spine. No hip or knee fracture. Patient has been coughing x-ray showing pneumonia will start the patient on Augmentin. Medical Decision Making Differential Diagnosis Differential Diagnoses: The differential diagnosis associated with the presentation includes (Alcohol intoxication, intracranial bleed, closed head injury, cervical spine injury, left knee contusion, left knee fracture, right hip fracture.) Admission/Observation Consideration of admission/observation: Escalation of care including admission/observation considered Independent Interpretation I performed an independent interpretation of an: Plain X-Ray (Left knee/right hip/chest x-ray: No acute fracture, right mid lung field opacity.) and CT Scan (Of head and cervical spine: No acute intracranial pathology or C-spine fracture.) Radiology Impression Discussion of test interpretation with radiology: I have reviewed the radiologist's reading. Chronic Conditions Patient?s care impacted by: Other (Alcohol use disorder.) Discharge Plan Discharge Clinical Impression: Alcohol intoxication Qualifiers: Complication of substance-induced condition: uncomplicated Qualified Code(s): F10.920 - Alcohol use, unspecified with intoxication, uncomplicated Closed head injury Qualifiers: Encounter type: initial encounter Qualified Code(s): S09.90XA - Unspecified injury of head, initial encounter Contusion of knee, left Qualifiers: Encounter type: initial encounter Qualified Code(s): S80.02XA - Contusion of left knee, initial encounter Contusion of right hip Qualifiers: Encounter type: initial encounter Qualified Code(s): S70.01XA - Contusion of right hip, initial encounter Pneumonia Qualifiers: Aspiration pneumonia type: unspecified Laterality: right Lung location: middle lobe of lung Patient Disposition: Home, Self-Care Instructions: Pneumonia (ED) Prescriptions: New amoxicillin-pot clavulanate 875-125 mg tablet 1 tab PO BID Qty: 14 0RF No Action (DME) blood-glucose meter [FreeStyle Lite Meter] Kit See Rx Instructions .ROUTE .MEDSUPPLY Qty: 1 0RF Rx Instructions: check sugar twice a day (DME) lancets [FreeStyle Lancets] 28 gauge misc See Rx Instructions .ROUTE .MEDSUPPLY Qty: 100 2RF Rx Instructions: check sugar twice a day (DME) FreeStyle David 2 [place] Misc See Rx Instructions .Route Qty: 1 0RF Rx Instructions: tid testing (DME) FreeStyle David 2 Sensor Kit See Rx Instructions .Route Qty: 1 3RF Rx Instructions: tid testing albuterol sulfate 90 mcg/actuation HFA aerosol inhaler 2 puff inhalation QID Qty: 8.5 2RF furosemide 20 mg tablet 30 mg PO DAILY Qty: 135 1RF Eliquis 5 mg tablet 5 mg PO BID Qty: 180 1RF amlodipine 5 mg tablet 5 mg PO DAILY Qty: 90 1RF lisinopril 2.5 mg tablet 2.5 mg PO DAILY Qty: 90 1RF fluoxetine 40 mg capsule 40 mg PO DAILY Qty: 90 1RF folic acid 1 mg tablet 1 mg PO DAILY Qty: 90 1RF gabapentin 300 mg capsule 300 mg PO BID 30 Days Qty: 60 4RF rosuvastatin 5 mg tablet 5 mg PO DAILY Qty: 90 1RF omeprazole 20 mg capsule,delayed release(DR/EC) 40 mg PO DAILY@0630 Qty: 180 1RF cefuroxime axetil 250 mg Tablet 250 mg PO BID Qty: 8 0RF metoprolol tartrate 25 mg tablet 50 mg PO BID Qty: 180 1RF prednisone 20 mg tablet 20 mg PO DAILY Qty: 6 0RF metformin 850 mg tablet 850 mg PO DAILY Qty: 90 1RF cyclobenzaprine 10 mg tablet 10 mg PO BEDTIME acetaminophen [Tylenol Arthritis Pain] 650 mg tablet extended release 650 mg PO Q12H PRN (Reason: pain) 30 Days Qty: 60 0RF terazosin 5 mg capsule 5 mg PO BEDTIME 90 Days Qty: 90 1RF Referrals: Ortiz Deluca, [facility] [employer] [Primary Care Provider] -
[2023-04-04 04:54] VITALS: BP 108/86; PULSE 87; RESP 16; TEMP 36.8; O2SAT 96
[2023-04-04 06:00] VITALS: BP 122/54; PULSE 87; RESP 16; TEMP 36.9; O2SAT 91
== END 2023-04-04 06:52 | disposition home or self-care (01) ==
PROVIDERS: Emergency Provider Emergency Medicine; PCP Nurse Practitioner Family
DX: S09.90XA Unspecified injury of head, initial encounter (principal); S80.02XA Contusion of left knee, initial encounter; S70.01XA Contusion of right hip, initial encounter; F10.920 Alcohol use, unspecified with intoxication, uncomplicated; Y90.5 Blood alcohol level of 100-119 mg/100 ml; J18.9 Pneumonia, unspecified organism; M54.2 Cervicalgia; R51.9 Headache, unspecified; R94.31 Abnormal electrocardiogram [ECG] [EKG]; M25.551 Pain in right hip; M25.562 Pain in left knee; F17.210 Nicotine dependence, cigarettes, uncomplicated; W10.9XXA Fall (on) (from) unspecified stairs and steps, initial encounter; Y93.9 Activity, unspecified; Y92.9 Unspecified place or not applicable; Y99.9 Unspecified external cause status; Z71.6 Tobacco abuse counseling; Z79.899 Other long term (current) drug therapy
CPT/HCPCS: 70450; 71045; 72125; 73502; 73560; 93005; 99284

== ENCOUNTER 2023-06-18 03:20 | Emergency (ER) | payer MEDICARE, OTHER, MEDICAID, SELFPAY ==
--- NOTE | ~2023-06-18 | XR_ITS ---
EXAMINATION: XR CHEST CLINICAL INFORMATION: Rule out pneumonia COMPARISON: 04/04/2023 TECHNIQUE: Frontal view of the chest was obtained. FINDINGS: Normal symmetric lung volumes. No parenchymal consolidation. Diffuse bronchial wall thickening. No pleural effusion. No pneumothorax. Cardiomediastinal silhouette and pulmonary vascularity are within normal limits. No acute osseous abnormalities. XR/XR chest 1V IMPRESSION: * No focal consolidation. * Diffuse bronchial wall thickening suggestive of bronchitis.
--- NOTE | ~2023-06-18 | CT_ITS ---
EXAMINATION: NONCONTRAST HEAD CT NONCONTRAST CERVICAL SPINE CT INDICATION INFORMATION: Fall. COMPARISON: 04/04/2023 TECHNIQUE: Separate noncontrast CT examinations of the head and cervical spine were performed. Coronal and sagittal images were created for each examination at the technologist workstation. This CT examination was performed using dose optimization techniques as appropriate, variously including the following: *Automated exposure control *Adjustment of mA and/or kV according to patient size (this includes techniques or standardized protocols for targeted exams where dose is matched to indication/reason for exam; i.e. extremities or head) *Use of iterative reconstruction technique DLP: 1619 mGy-cm FINDINGS: Head: There is no evidence of acute intracranial hemorrhage or territorial infarction. No abnormal mass effect or midline shift is seen. Mir to white matter differentiation is well preserved. No extra-axial fluid collections are identified. No hydrocephalus. No significant volume loss. Patchy periventricular and deep white matter hypoattenuation is consistent with mild small vessel ischemic changes. Chronic lacunar infarct in the left posterior frontal lobe subcortical white matter. No acute osseous or soft tissue abnormality. The mastoid air cells and visualized portions of the paranasal sinuses are well aerated. Cervical spine: There is anatomic alignment of the vertebral bodies and posterior elements. The atlantoaxial and atlantooccipital articulations are intact. Vertebral body heights maintained. Loss of disc space height and mild small endplate osteophytes present at C4-C5 and C5-C6. No evidence of acute fracture. No prevertebral soft tissue swelling. Visualized portions of the lung apices are unremarkable. The thyroid gland is unremarkable. CT/CT cervical spine wo IV con IMPRESSION: * No acute intracranial bleed or territorial infarction. * No acute fractures of the calvarium or cervical spine.
[2023-06-18 03:23] VITALS: BP 127/62; BP 98/42; PULSE 75; PULSE 81; RESP 20; TEMP 36.6; O2SAT 97; BMI 44.1
--- NOTE | 2023-06-18 03:44 | ED_ITS ---
HPI - Alcohol General Chief Complaint: ETOH/Substance Use Stated Complaint: ETOH Time Seen by Provider: 06/18/23 03:40 Source: patient and EMS Mode of arrival: EMS Limitations: no limitations History of Present Illness HPI narrative: patient comes to the emergency room by ambulance. Patient has been out drinking. Patient was in a bar, got into his car, somehow fell out. Patient is too intoxicated to stand up and walk. Bystanders called 911. Patient states that he does not remember if he hit his head, but is complaining of a headache. Denies neck pain. denies any other injuries Related Data Home Medications Medication Instructions Recorded Confirmed cyclobenzaprine 10 mg tablet 10 mg PO BEDTIME 06/30/22 03/28/23 Previous Rx's Medication Instructions Recorded blood-glucose meter (FreeStyle #1 ea 09/03/20 Lite Meter kit) lancets 28 gauge (FreeStyle #100 ea 02/02/21 Lancets) FreeStyle David 2 Bradshaw (flash #1 ea 07/03/22 glucose scanning reader) FreeStyle David 2 Sensor (flash #1 ea 07/03/22 glucose sensor) terazosin 5 mg capsule 5 mg PO BEDTIME 90 days #90 caps 07/21/22 albuterol sulfate 90 mcg/actuation 2 puff inhalation QID #8.5 grams 07/28/22 aerosol inhaler acetaminophen 650 mg 650 mg PO Q12H PRN pain 30 days 09/29/22 tablet,extended release (Tylenol #60 tabs Arthritis Pain) furosemide 20 mg tablet 30 mg (1.5 x 20 mg) PO DAILY #135 10/01/22 tabs lisinopril 2.5 mg tablet 2.5 mg PO DAILY #90 tabs 11/29/22 folic acid 1 mg tablet 1 mg PO DAILY #90 tabs 12/02/22 gabapentin 300 mg capsule 300 mg PO BID 30 days #60 caps 02/07/23 rosuvastatin 5 mg tablet 5 mg PO DAILY #90 tabs 02/07/23 omeprazole 20 mg capsule,delayed 40 mg (2 x 20 mg) PO DAILY@0630 02/22/23 release #180 caps cefuroxime axetil 250 mg tablet 250 mg PO BID #8 tabs 04/01/23 metoprolol tartrate 25 mg tablet 50 mg (2 x 25 mg) PO BID #180 tabs 04/01/23 prednisone 20 mg tablet 20 mg PO DAILY #6 tabs 04/01/23 amoxicillin 875 mg-potassium 1 tab PO BID #14 tabs 04/04/23 clavulanate 125 mg tablet metformin 850 mg tablet 850 mg PO DAILY #90 tabs 05/09/23 amlodipine 5 mg tablet 5 mg PO DAILY #90 tabs 06/17/23 apixaban 5 mg tablet (Eliquis) 5 mg PO BID #180 tabs 06/17/23 fluoxetine 40 mg capsule 40 mg PO DAILY #90 caps 06/17/23 Allergies Allergy/AdvReac Type Severity Reaction Status Date / Time No Known Allergies Allergy Verified 06/18/23 03:59 [No Known Allergies*] Review of Systems Review of Systems: Constitutional : No Weight loss, No Fever, No Chills, No Night Sweats, No Fatigue, No Malaise ENT/Mouth : No Hearing loss, No Ear Pain, No Nasal Congestion, No Sinus Pain, No Hoarseness, No sore throat, No Rhinorrhea, No Swallowing Difficulty Eyes: No Eye Pain, No Swelling, No Redness, No Foreign Body, No Discharge, No Vision Changes Cardiovascular : No Chest Pain, No SOB, No Dyspnea on Exertion, No Orthopnea, No Edema, No Palpitations Respiratory : No Cough, No Sputum, No Wheezing, No Smoke Exposure, No Dyspnea Gastrointestinal : No Nausea, No Vomiting, No Diarrhea, No Constipation, No abdominal Pain, No Hematochezia, No Melena Genitourinary : no irregular bleeding, No Dysuria, No Urinary Frequency, No H ematuria, No Urinary Incontinence, No Urgency, No Flank Pain, No Urinary Flow Changes, No Hesitancy Musculoskeletal : No joint pain, No Myalgias, No Joint Swelling Skin : No Skin Lesions, No rash Neuro : No Weakness, No Numbness, No Paresthesias, No Loss of Consciousness, No Dizziness, complaining Headache Psych : No Anxiety/Panic, No Depression, No SI/HI/AH/VH, No Social Issues, Heme/Lymph: No Bruising, No Bleeding,No Lymphadenopathy Endocrine : No Polyuria, No Polydipsia, No Temperature Intolerance PMFSH Past Medical History Medical History History of cardiac arrest (~05/2020) Nicotine dependence, cigarettes, uncomplicated Personal history of colonic polyps Hypoventilation associated with obesity syndrome Encephalopathy chronic Morbid obesity MJ (obstructive sleep apnea) Effusion, right knee CKD (chronic kidney disease) stage 3, GFR 30-59 ml/min Cirrhosis Diabetes Obesity (BMI 35.0-39.9 without comorbidity) Wernicke encephalopathy Obstructive sleep apnea (adult) (pediatric) Alcohol use disorder, severe, dependence Rib fractures CHF (congestive heart failure) Left atrial enlargement Persistent atrial fibrillation Depression Gout Arthritis Anxiety HTN (hypertension) Surgical History History of tracheostomy (~2019) History of bronchoscopy (~2019) History of colonoscopy (~2021) History of esophagogastroduodenoscopy (EGD) (~2021) History of cardioversion (~2020) S/P percutaneous endoscopic gastrostomy (PEG) tube placement (~2019) Family History Family History Father Lung cancer Mother No problems noted. Maternal Aunt History of heart attack Sister No problems noted. Brother Cancer of kidney Brother No problems noted. Brother No problems noted. Brother No problems noted. Brother No problems noted. Brother No problems noted. Other Substance use disorder Social History Social History Household Members: Significant Other and Children Housing: House Do you presently have visiting nurse or other home services: No Unable to assess alcohol history related to: Unknown Alcohol intake: current Alcohol intake frequency: 3 or more drinks per day Alcohol type: beer and hard liquor Comment: 1:1 sitter Patient Tobacco Use Status: Current everyday Tobacco user Tobacco use type: Cigarette Cigarette Packs Per Day: 1 Cigarettes Per Day: 20.0 Smoked in Last 30 Days: Yes e-Cigarette/Vaping Use: Never Used Second Hand Smoke Exposure: No Use of substances other than those prescribed or required for medical reasons: No Advance Directives: Yes Advance Directives on File: Yes Advance Directives Date on File: 06/05/20 service: Yes Current occupational status: unemployed Cognitive needs: No Hearing needs: No Vision needs: No Physical Exam ED Vital Signs: Vital Signs - 24 hr 06/18/23 03:23 06/18/23 04:55 12/23/23 05:24 Temperature 97.8 F 97.8 F Pulse Rate 81 75 79 Respiratory Rate 20 20 16 Blood Pressure 98/42 L 112/52 L 100/53 L Pulse Oximetry 97 94 95 Oxygen Delivery Method Room Air Room Air Room Air BMI result Body Mass Index 44.1 Const Other: Appearance: Alert. no acute distress, intoxicated Eyes: Pupils equal, round and reactive to light. ENT: Pharynx normal. Neck: Normal inspection. Neck supple. No lymph nodes noted. No crepitus CVS: Normal heart rate and rhythm. Pulses normal. Normal S1 and S2 Respiratory: No respiratory distress. Breath sounds normal. No Wheezing. No rales Abdomen: Soft and nontender. No rigidity. No distention. Skin: Skin warm and dry. Normal skin color. Normal skin turgor. no obvious signs of trauma Extremities: No lower extremity edema. No Lacerations. No Rash Neuro: Oriented X 3. No motor deficit. No sensory deficit. Moving all extremities. No slurred speech. CN 2 through 12 grossly intact Psych: calm, cooperative, normal affect Course Course Course Narrative: - patient is too intoxicated to give any accurate history. Patient does not remember if he fell or hit his head. We will go ahead and scan him. - Also, patient complaining that he has been coughing for a few weeks, chest x- ray pending. Patient denies chest pain or shortness of breath Medical Decision Making Medical Decision Making MDM Narrative: - my interpretation a head CT: No intracranial bleed - plan: Metabolize to freedom - my interpretation chest x-ray: No infiltrate Differential Diagnosis Differential Diagnoses: The differential diagnosis associated with the presentation includes ( alcohol intoxication, intracranial bleed, pneumonia) Independent Interpretation I performed an independent interpretation of an: Plain X-Ray and CT Scan Radiology Impression Discussion of test interpretation with radiology: I have reviewed the radiologist's reading. Radiologist Impression: Head: There is no evidence of acute intracranial hemorrhage or territorial infarction. No abnormal mass effect or midline shift is seen. Mir to white matter differentiation is well preserved. No extra-axial fluid collections are identified. No hydrocephalus. No significant volume loss. Patchy periventricular and deep white matter hypoattenuation is consistent with mild small vessel ischemic changes. Chronic lacunar infarct in the left posterior frontal lobe subcortical white matter. No acute osseous or soft tissue abnormality. The mastoid air cells and visualized portions of the paranasal sinuses are well aerated. Cervical spine: There is anatomic alignment of the vertebral bodies and posterior elements. The atlantoaxial and atlantooccipital articulations are intact. Vertebral body heights maintained. Loss of disc space height and mild small endplate osteophytes present at C4-C5 and C5-C6. No evidence of acute fracture. No prevertebral soft tissue swelling. Visualized portions of the lung apices are unremarkable. The thyroid gland is unremarkable. CT/CT head/brain wo IV con IMPRESSION: * No acute intracranial bleed or territorial infarction. * No acute fractures of the calvarium or cervical spine. Normal symmetric lung volumes. No parenchymal consolidation. Diffuse bronchial wall thickening. No pleural effusion. No pneumothorax. Cardiomediastinal silhouette and pulmonary vascularity are within normal limits. No acute osseous abnormalities. XR/XR chest 1V IMPRESSION: * No focal consolidation. * Diffuse bronchial wall thickening suggestive of bronchitis. Critical Care Time Critical Care Time Critical Care Time: Yes Total Critical Care Time: 45 Attestation: I have personally provided critical care time. Time includes review of lab data, radiology results, discussion with consultants, and monitoring for potential decompensation. Intervention performed as documented. Discharge Plan Discharge Clinical Impression: Alcohol intoxication, Viral bronchitis Patient Disposition: Home, Self-Care Prescriptions: No Action (DME) blood-glucose meter [FreeStyle Lite Meter] Kit See Rx Instructions .ROUTE .MEDSUPPLY Qty: 1 0RF Rx Instructions: check sugar twice a day (DME) lancets [FreeStyle Lancets] 28 gauge misc See Rx Instructions .ROUTE .MEDSUPPLY Qty: 100 2RF Rx Instructions: check sugar twice a day (DME) FreeStyle David 2 Bradshaw Misc See Rx Instructions .Route Qty: 1 0RF Rx Instructions: tid testing (DME) FreeStyle David 2 Sensor Kit See Rx Instructions .Route Qty: 1 3RF Rx Instructions: tid testing albuterol sulfate 90 mcg/actuation HFA aerosol inhaler 2 puff inhalation QID Qty: 8.5 2RF furosemide 20 mg tablet 30 mg PO DAILY Qty: 135 1RF lisinopril 2.5 mg tablet 2.5 mg PO DAILY Qty: 90 1RF folic acid 1 mg tablet 1 mg PO DAILY Qty: 90 1RF gabapentin 300 mg capsule 300 mg PO BID 30 Days Qty: 60 4RF rosuvastatin 5 mg tablet 5 mg PO DAILY Qty: 90 1RF omeprazole 20 mg capsule,delayed release(DR/EC) 40 mg PO DAILY@0630 Qty: 180 1RF metformin 850 mg tablet 850 mg PO DAILY Qty: 90 1RF amlodipine 5 mg tablet 5 mg PO DAILY Qty: 90 1RF fluoxetine 40 mg capsule 40 mg PO DAILY Qty: 90 1RF Eliquis 5 mg tablet 5 mg PO BID Qty: 180 1RF cefuroxime axetil 250 mg Tablet 250 mg PO BID Qty: 8 0RF metoprolol tartrate 25 mg tablet 50 mg PO BID Qty: 180 1RF prednisone 20 mg tablet 20 mg PO DAILY Qty: 6 0RF amoxicillin-pot clavulanate 875-125 mg tablet 1 tab PO BID Qty: 14 0RF cyclobenzaprine 10 mg tablet 10 mg PO BEDTIME acetaminophen [Tylenol Arthritis Pain] 650 mg tablet extended release 650 mg PO Q12H PRN (Reason: pain) 30 Days Qty: 60 0RF terazosin 5 mg capsule 5 mg PO BEDTIME 90 Days Qty: 90 1RF
[2023-06-18 04:55] VITALS: BP 112/52; PULSE 75; RESP 20; O2SAT 94
[2023-06-18 05:24] VITALS: BP 100/53; PULSE 79; RESP 16; TEMP 36.6; O2SAT 95
[2023-06-18 06:25] VITALS: BP 105/61; PULSE 85; RESP 18; TEMP 36.7; O2SAT 95
== END 2023-06-18 06:29 | disposition home or self-care (01) ==
PROVIDERS: Emergency Provider Emergency Medicine; PCP Nurse Practitioner Family
DX: F10.129 Alcohol abuse with intoxication, unspecified (principal); J20.8 Acute bronchitis due to other specified organisms; R07.89 Other chest pain; Y90.8 Blood alcohol level of 240 mg/100 ml or more; R51.9 Headache, unspecified; M54.2 Cervicalgia; Z79.899 Other long term (current) drug therapy; F17.210 Nicotine dependence, cigarettes, uncomplicated; Z71.6 Tobacco abuse counseling
CPT/HCPCS: 70450; 71045; 72125; 99284

== ENCOUNTER 2023-07-13 17:51 | Inpatient (IN) | payer MEDICARE, OTHER, MEDICAID, SELFPAY ==
--- NOTE | ~2023-07-13 | XR_ITS ---
EXAMINATION: XR CHEST CLINICAL INFORMATION: Dyspnea and hypoxia COMPARISON: Chest radiograph 07/13/2023 6:57 AM. TECHNIQUE: Frontal view of the chest was obtained. FINDINGS: The cardiac silhouette is normal in size. Moderate aortic calcific atherosclerosis is noted. The examination is underpenetrated as manifest by inability to visualize the thoracic vertebral bodies posterior to the heart. Making allowances for underpenetrated technique, no dense pulmonary consolidation is identified. Central peribronchial wall thickening is visualized. Mild diffuse vascular indistinctness is noted. Scattered medium reticular opacities are suggested over the right middle and lower lung zone. The costophrenic sulci are truncated from the image [id number]. XR/XR chest 1V IMPRESSION: Scattered reticular opacities as detailed above and central peribronchial wall thickening. Findings may represent bronchitis and developing pneumonia. No dense pulmonary consolidation. Findings are more prominent than on the comparison chest radiograph of 07/13/2023.
--- NOTE | ~2023-07-13 | XR_ITS ---
EXAMINATION: XR CHEST CLINICAL INFORMATION: Left-sided chest pain, cough. COMPARISON: Chest 07/13/2023 TECHNIQUE: Frontal view of the chest was obtained. FINDINGS: The lungs are somewhat expanded with increased hilar interstitial markings in mild bronchial wall thickening likely airway disease. No acute consolidation or pleural effusion seen. Heart size is borderline enlarged. Pulmonary vascularity is normal. No gross bony abnormality. XR/XR chest 1V IMPRESSION: Prominent bronchovascular markings with bronchial wall thickening suggestive of small airway disease. No acute consolidation or pleural effusion.
--- NOTE | 2023-07-13 18:07 | ED_ITS ---
HPI - SOB/Dyspnea General Chief Complaint: Chest Pain Stated Complaint: SOB, chest pain, a-fib, hx of a-fib, copd Time Seen by Provider: 07/13/23 18:07 Source: patient Mode of arrival: EMS Limitations: no limitations History of Present Illness HPI Narrative: 63-year-old male history of cardiac arrest, myocardial infarction, MJ, CKD, cirrhosis, diabetes, Wernicke's encephalopathy, alcohol use disorder, CHF, atrial fibrillation, depression, gout, anxiety who presents emergency department for evaluation of chest pain and shortness of breath. Patient states that last night at 21:00 hours he developed pain in his chest. It came on gradually. He points to his left chest when asked to localize the pain. He describes the pain is a pressure/heaviness which is been constant and is 8/10 at its worst. He also felt short of breath and has dyspnea. He states he has had chills with no fever. He had rhinorrhea and sore throat. He has a cough which is nonproductive. He had nausea with no vomiting. He did note frequency, urgency, myalgias and arthralgias Related Data Home Medications Medication Instructions Recorded Confirmed cyclobenzaprine 10 mg tablet 10 mg PO BEDTIME 06/30/22 03/28/23 Previous Rx's Medication Instructions Recorded blood-glucose meter (FreeStyle #1 ea 09/03/20 Lite Meter kit) lancets 28 gauge (FreeStyle #100 ea 02/02/21 Lancets) FreeStyle David 2 [place] (flash #1 ea 07/03/22 glucose scanning reader) FreeStyle David 2 Sensor (flash #1 ea 07/03/22 glucose sensor) terazosin 5 mg capsule 5 mg PO BEDTIME 90 days #90 caps 07/21/22 albuterol sulfate 90 mcg/actuation 2 puff inhalation QID #8.5 grams 07/28/22 aerosol inhaler acetaminophen 650 mg 650 mg PO Q12H PRN pain 30 days 09/29/22 tablet,extended release (Tylenol #60 tabs Arthritis Pain) furosemide 20 mg tablet 30 mg (1.5 x 20 mg) PO DAILY #135 10/01/22 tabs lisinopril 2.5 mg tablet 2.5 mg PO DAILY #90 tabs 11/29/22 folic acid 1 mg tablet 1 mg PO DAILY #90 tabs 12/02/22 gabapentin 300 mg capsule 300 mg PO BID 30 days #60 caps 02/07/23 rosuvastatin 5 mg tablet 5 mg PO DAILY #90 tabs 02/07/23 omeprazole 20 mg capsule,delayed 40 mg (2 x 20 mg) PO DAILY@0630 02/22/23 release #180 caps cefuroxime axetil 250 mg tablet 250 mg PO BID #8 tabs 04/01/23 metoprolol tartrate 25 mg tablet 50 mg (2 x 25 mg) PO BID #180 tabs 04/01/23 prednisone 20 mg tablet 20 mg PO DAILY #6 tabs 04/01/23 amoxicillin 875 mg-potassium 1 tab PO BID #14 tabs 04/04/23 clavulanate 125 mg tablet metformin 850 mg tablet 850 mg PO DAILY #90 tabs 05/09/23 amlodipine 5 mg tablet 5 mg PO DAILY #90 tabs 06/17/23 apixaban 5 mg tablet (Eliquis) 5 mg PO BID #180 tabs 06/17/23 fluoxetine 40 mg capsule 40 mg PO DAILY #90 caps 06/17/23 Allergies Allergy/AdvReac Type Severity Reaction Status Date / Time No Known Allergies Allergy Verified 06/18/23 03:59 [No Known Allergies*] Review of Systems 2 Review of Systems: Yes all other systems are reviewed and are negative [facility] Past Medical History [facility] Narrative: Social history: He does smoke cigarettes. He drinks 1 beer in 2-3 shots of fireball whiskey per day. Cholesterol was 2 days ago. He denies drug use Onset Date is defined in the Problem List Problems that require an onset date and time if occurred within 24 hrs of arrival to the ED Aortic Dissection and Rupture; Neurologic impairment; Cardiopulmonary Arrest; Endotracheal Intubation; Insertion or Replacement of Mechanical Circulatory Assist Device Medical History History of cardiac arrest (~05/2020) Nicotine dependence, cigarettes, uncomplicated Personal history of colonic polyps Hypoventilation associated with obesity syndrome Encephalopathy chronic Morbid obesity MJ (obstructive sleep apnea) Effusion, right knee CKD (chronic kidney disease) stage 3, GFR 30-59 ml/min Cirrhosis Diabetes Obesity (BMI 35.0-39.9 without comorbidity) Wernicke encephalopathy Obstructive sleep apnea (adult) (pediatric) Alcohol use disorder, severe, dependence Rib fractures CHF (congestive heart failure) Left atrial enlargement Persistent atrial fibrillation Depression Gout Arthritis Anxiety HTN (hypertension) Surgical History History of tracheostomy (~2019) History of bronchoscopy (~2019) History of colonoscopy (~2021) History of esophagogastroduodenoscopy (EGD) (~2021) History of cardioversion (~2020) S/P percutaneous endoscopic gastrostomy (PEG) tube placement (~2019) Family History Family History Father Lung cancer Mother No problems noted. Maternal Aunt History of heart attack Sister No problems noted. Brother Cancer of kidney Brother No problems noted. Brother No problems noted. Brother No problems noted. Brother No problems noted. Brother No problems noted. Other Substance use disorder Social History Social History Household Members: Significant Other and Children Housing: House Do you presently have visiting nurse or other home services: No Unable to assess alcohol history related to: Unknown Alcohol intake: current Alcohol intake frequency: 3 or more drinks per day Alcohol type: beer and hard liquor Comment: 1:1 sitter Patient Tobacco Use Status: Current everyday Tobacco user Tobacco use type: Cigarette Cigarette Packs Per Day: 1 Cigarettes Per Day: 20.0 Smoked in Last 30 Days: Yes e-Cigarette/Vaping Use: Never Used Second Hand Smoke Exposure: No Advance Directives: Yes Advance Directives on File: Yes Advance Directives Date on File: 06/05/20 service: Yes Current occupational status: unemployed Cognitive needs: No Hearing needs: No Vision needs: No Physical Exam 2 Vital Signs: Vital Signs: Last Vital Signs Temp 98.2 F 07/13/23 19:49 Pulse 82 07/13/23 19:49 Resp 18 07/13/23 19:49 BP 139/56 L 07/13/23 19:49 Pulse Ox 94 07/13/23 19:49 O2 Del Method Nasal Cannula 07/13/23 19:49 O2 Flow Rate 3 07/13/23 19:49 Oxygen Flow Rate 2 07/13/23 18:12 BMI result Body Mass Index 44.2 Exam General: Awake, alert in no distress, elevated BMI 44.2 Head: Normocephalic, atraumatic EENT: PERRL, Lids normal, sclera normal, conjunctiva normal, nose normal , ears normal, throat without erythema or exudates Neck: Supple, no adenopathy, no trachea midline or C-spine tenderness Lung: breath sounds symmetric, no wheezing, rales or rhonchi Chest: symmetric movement, moderate left chest wall tenderness Heart: regular rate and rhythm, normal S1, S2 no murmurs or rubs Abdomen: soft, non-tender, nondistended, normal bowel sounds Back: no vertebral tenderness, no CVAT Extremities: no deformities, moves all extremities symmetrically, trace pitting edema bilaterally symmetric Neuro: Awake, alert, oriented, normal speech, cranial nerves intact, moves all extremities symmetrically Psych: Pleasant, cooperative Medications Administered Discontinued Medications Generic Name Dose Route Start Last Admin Trade Name Freq PRN Reason Stop Dose Admin Morphine Sulfate 4 mg 07/13/23 18:18 07/13/23 18:36 Morphine Sulfate 4 Mg/Ml Cartridge IVPUSH 07/13/23 18:19 4 mg ONCE STA Administration Protocol Ondansetron HCl 4 mg 07/13/23 18:18 07/13/23 18:36 Ondansetron Hcl 4 Mg/2 Ml Vial IVPUSH 07/13/23 18:19 4 mg ONCE ONE Administration Medical Decision Making Medical Decision Making [facility] Narrative: 63-year-old male history of cardiac arrest, myocardial infarction, MJ, CKD, cirrhosis, diabetes, Wernicke's encephalopathy, alcohol use disorder, CHF, atrial fibrillation, depression, gout, anxiety who presents emergency department for evaluation of chest pain and shortness of breath and chest pain which began yesterday 21:00 hours and has been constant. He also complained of chills, cough, sore throat, frequency, urgency, myalgias and arthralgias. Vital signs revealed an elevated blood pressure of 149/77. O2 saturation was 96% on 2 L of oxygen via nasal cannula-patient does not wear oxygen at home but does use CPAP at night. On room air in the emergency department the patient's O2 saturation was 88% Exam did reveal left-sided chest wall tenderness otherwise unremarkable pain Following evaluation was ordered: CBC, CMP, BNP, troponin, lactic acid, PT/INR, PTT, ethanol level, lipase, influenza, COVID-19, urinalysis, blood cultures x2, EKG, chest x-ray one view Patient was treated with the following medications: Morphine 4 mg IV and Zofran 4 mg IV 20:51 My interpretation patient's laboratory evaluation is as follows: WBC elevated 10,900, normocytic anemia with an H&H of 12.7 and 38.2, low platelet count [id number]. Coags were normal. Glucose elevated 140. Lactic acid normal 1.4. Troponin was detectable but not elevated at 2.9 given his constant chest pain since yesterday this low value was reassuring. BNP elevated 946. Alcohol level below detectable limits. COVID-19 and influenza were negative Given the patient's elevated BNP and is low O2 saturation of 88% on room air suspect that the patient has pulmonary edema as the cause of his shortness of breath. Patient was given Lasix 60 mg IV. I will discuss admission with the covering hospitalist Patient did complain of dysuria but no urine sample has been sent to the lab yet Differential Diagnosis Differential Diagnoses: The differential diagnosis associated with the presentation includes Differential diagnosis includes was not limited to myocardial infarction, myocardial ischemia, musculoskeletal pain, pneumonia, pulmonary edema, anemia, electrolyte abnormality Admission/Observation Consideration of admission/observation: Escalation of care including admission/observation considered Consult Healthcare Provider Management of the patient was discussed with: Hospitalist Lab Data MDM Lab Attestation statement: I reviewed the patient's lab results. 07/13/23 18:40 07/13/23 18:40 Labs: Lab Results 07/13/23 07/13/23 Range/Units 18:40 18:52 WBC 10.9 H (4.8-10.8) X10*3/uL RBC 4.08 L (4.60-5.80) X10*6/uL Hgb 12.7 L (14.0-18.0) g/dl Hct 38.2 L (42.0-52.0) % MCV 93.6 (80.0-98.0) fL MCH 31.1 (27.0-33.0) pg MCHC 33.2 (31.0-36.0) g/dl RDW 14.5 (11.0-16.0) % Plt Count 150 L (160-400) X10*3/uL MPV 11.6 (9.4-12.4) fL Immature Gran % (Auto) 0.4 (0.0-0.4) % Neut % (Auto) 65.4 (45-73) % Lymph % (Auto) 23.4 (20-40) % Worth % (Auto) 8.9 (2-11) % Eos % (Auto) 1.3 (0-4) % Baso % (Auto) 0.6 (0-2) % Lymph # (Auto) 2.6 (1.2-4.9) X10*3/uL Worth # (Auto) 1.0 (0.1-1.2) X10*3/uL Eos # (Auto) 0.1 (0.0-0.4) X10*3/uL Baso # (Auto) 0.1 (0.0-0.2) X10*3/uL Abs Immat Gran (auto) 0.04 H (0.00-0.03) X10*3/uL Absolute Neuts (auto) 7.2 (2.0-8.3) x10*3/uL Absolute Nucleated RBC 0.000 (0.0-0.012) X10*3/uL Nucleated RBC % (auto) 0.0 (0.0-0.2) /100WBC Smear Tech's Comments VERIFIED Hold Purple Top SEE NOTE PT 16.4 H (11.1-13.3) SEC INR 1.3 H (0.9-1.1) APTT 35.0 (26.0-36.4) SEC Sodium 141 (135-145) mmol/L Potassium 4.5 (3.3-5.1) mmol/L Chloride 104 (96-108) mmol/L Carbon Dioxide 28 (22-29) mmol/L Anion Gap 14 (12-20) BUN 15 (9-16) mg/dL Creatinine 1.04 (0.5-1.4) mg/dL Estim Creat Clear Calc 113.2 Estimated GFR > 60 Random Glucose 140 H (60-115) mg/dL Lactic Acid 1.4 (0.5-2.0) mmol/L Calcium 9.1 D (8.4-10.2) mg/dL Total Bilirubin 0.7 (0.0-1.0) mg/dL AST 16 (5-37) U/L ALT 8 (0-40) U/L Alkaline Phosphatase 97 (39-117) U/L Troponin I High Sens 2.9 (<3.5-35.0) ng/L B-Natriuretic Peptide 946 H (<100) pg/mL Total Protein 7.4 (6.5-8.0) g/dL Albumin 3.6 (3.5-5.0) g/dL Lipase 19 (8-78) U/L Ethyl Alcohol < 10 mg/dL COVID-19 (LINDEN) Negative (Negative) COVID-19 Clin Com See Note Influenza Type A (LACI) Negative (Negative) Influenza Type B (LACI) Negative (Negative) Influenza A & B Note See Note Independent Interpretation I performed an independent interpretation of an: EKG and Plain X-Ray Interpretation: My independent interpretation the patient's 12 EKG done at 18:27 hours is as follows atrial fibrillation with a rate of 87, no ST segment elevation, no ST segment depression, no significant T-wave abnormalities, no PVCs My interpretation patient's one-view chest x-ray is as follows: No acute disease Radiology Impression Discussion of test interpretation with radiology: I have reviewed the radiologist's reading. Radiologist Impression: XR chest 1V IMPRESSION: Prominent bronchovascular markings with bronchial wall thickening suggestive of small airway disease. No acute consolidation or pleural effusion. Dictated By: August Barrera MD External Record Review External record reviewed: Inpatient record Chronic Conditions Patient?s care impacted by: Diabetes and Hypertension Critical Care Time Critical Care Time Critical Care Time: Yes Total Critical Care Time: 35 Attestation: Critical Care: The patient was critically ill with a high probability of imminent or life threatening deterioration. I spent greater than 30 minutes of discontinuous time evaluating the patient,delivering critical care at the bedside, discussing and evaluating pertinent data with consultants. Critical care time does not include time spent performing separately billable procedures or teaching. Total time spent performing critical care was 35 minutes. Discharge Plan Discharge Clinical Impression: Hypoxia Pulmonary edema Qualifiers: Chronicity: acute Qualified Code(s): J81.0 - Acute pulmonary edema Chest pain Qualifiers: Chest pain type: unspecified Qualified Code(s): R07.9 - Chest pain, unspecified Patient Disposition: Admitted As Inpatient
[2023-07-13 18:12] VITALS: BP 149/77; PULSE 96; RESP 15; TEMP 37.2; O2SAT 96; BMI 44.2
--- NOTE | 2023-07-13 18:18 | ECG_ITS ---
Test Reason : CP Blood Pressure : / mmHG Vent. Rate : 087 BPM Atrial Rate : 000 BPM P-R Int : 000 ms QRS Dur : 084 ms QT Int : 384 ms P-R-T Axes : 000 060 048 degrees QTc Int : 462 ms Atrial fibrillation Low voltage QRS Abnormal ECG When compared with ECG of 04-APR-2023 02:20, No significant change was found Referred By: Sin Costa Electronically Signed By:SACHI ELENA
[2023-07-13] MEDS: ondansetron HCL 4 MG/2 ML VIAL IVPUSH (18:36)
[2023-07-13] MEDS: Morphine Sulfate 4 MG/ML CARTRIDGE IVPUSH (18:36)
[2023-07-13 18:51] LABS: Basophils Absolute Auto 0.1 X10*3/uL (0.0-0.2); Basophils Percent Auto 0.6 % (0-2); Eosinophils Absolute Auto 0.1 X10*3/uL (0.0-0.4); Eosinophils Percent Auto 1.3 % (0-4); Hematocrit 38.2 % (42.0-52.0); Hemoglobin 12.7 g/dl (14.0-18.0); Imm Gran Abs Auto 0.04 X10*3/uL (0.00-0.03); Imm Gran Pct Auto 0.4 % (0.0-0.4); Lymphocytes Absolute Auto 2.6 X10*3/uL (1.2-4.9); Lymphocytes Percent Auto 23.4 % (20-40); MANUAL DIFF FLAG SCAN; Mean Corpuscular HGB Conc 33.2 g/dl (31.0-36.0); Mean Corpuscular Hemoglobin 31.1 pg (27.0-33.0); Mean Corpuscular Volume 93.6 fL (80.0-98.0); Mean Platelet Volume 11.6 fL (9.4-12.4); Monocytes Percent Auto 8.9 % (2-11); Neutrophils Absolute Auto 7.2 x10*3/uL (2.0-8.3); Neutrophils Percent Auto 65.4 % (45-73); PLT CLUMP 1; Red Blood Count 4.08 X10*6/uL (4.60-5.80); Red Cell Distribution Width 14.5 % (11.0-16.0); SCAN SMEAR FLAG 1
[2023-07-13 19:04] LABS: Alanine Aminotransferase 8 U/L (0-40); Albumin Level 3.6 g/dL (3.5-5.0); Alkaline Phosphatase 97 U/L (39-117); Anion Gap 14 (12-20); Aspartate Amino Transferase 16 U/L (5-37); Bilirubin Total 0.7 mg/dL (0.0-1.0); Blood Urea Nitrogen 15 mg/dL (9-16); Calcium 9.1 mg/dL (8.4-10.2); Carbon Dioxide 28 mmol/L (22-29); Chloride 104 mmol/L (96-108); Creatinine Clr Calc Pharmacy 113.2; Estimated Glomerular Filt Rate > 60; Ethanol < 10 mg/dL; Glucose Random 140 mg/dL (60-115); Lipase 19 U/L (8-78); Potassium 4.5 mmol/L (3.3-5.1); Sodium 141 mmol/L (135-145); Total Protein 7.4 g/dL (6.5-8.0)
[2023-07-13 19:06] LABS: B Type Natriuretic Peptide 946 pg/mL (<100)
[2023-07-13 19:07] LABS: Troponin-I High Sensitivity 2.9 ng/L (<3.5-35.0)
[2023-07-13 19:11] LABS: Platelet Count 150 X10*3/uL (160-400); SLIDE REVIEW VERIFIED; White Blood Count 10.9 X10*3/uL (4.8-10.8)
[2023-07-13 19:12] LABS: INTERNATIONAL NORM RATIO 1.3 (0.9-1.1); Prothrombin Time 16.4 SEC (11.1-13.3)
[2023-07-13 19:15] LABS: Lactic Acid 1.4 mmol/L (0.5-2.0)
[2023-07-13 19:17] LABS: IDNOW Serial# 16C4AD1C; Influenza A Negative (Negative); Influenza B2 Negative (Negative)
[2023-07-13 19:33] LABS: COVID-19 Test Negative (Negative); IDNOW Serial# 55D5AD1C
[2023-07-13 19:49] VITALS: BP 139/56; PULSE 80; PULSE 82; RESP 18; TEMP 36.8; O2SAT 94
[2023-07-13] MEDS: Furosemide 100 MG/10 ML VIAL 60 MG IVPUSH (21:25)
--- NOTE | 2023-07-13 21:28 | PM.IMHP ---
History of Present Illness Date of Service: 07/13/23 Attending physician on admission: Carolina Vences Chief Complaint: sob 63-year-old male with a history of alcoholic cirrhosis, MJ compliant with CPAP, COPD with chronic hypoxemic respiratory failure on 2L supplemental O2 at baseline, alcohol use disorder, Wernicke's encephalopathy, [id number] type 2 diabetes, persistent atrial fibrillation anticoagulated with Eliquis with history of cardioversion in 2020, CHF, history of cardiac arrest, obesity hypoventilation syndrome who is morbidly obese with BMI greater than 44 and who is a current 1/2 pack per day cigarette smoker presented to the ED earlier today for evaluation of chest pain and shortness of breath. He states that last night he developed left-sided chest pressure without any radiation. He states this was associated with shortness of breath at rest but worse with exertion. He states this came on while lying in bed using his CPAP. He also endorses orthopnea and bilateral lower extremity edema. Denies any palpitations or lightheadedness. He has also been experiencing diarrhea chronically but worse in the last few days. He reports at least 5+ episodes of watery diarrhea daily basis. He states he does restrict fluids and salt but has been noncompliant with his medications. He has been working on cutting back on alcohol consumption and has not consumed alcohol in several days. Denies any withdrawal symptoms. He has also been working on cutting back on cigarette smoking. Previously was smoking 2 packs of cigarettes on a daily basis and is now smoking 1/2 pack per day. On arrival, arrived on 3L supplemental O2 per EMS was satting 92% on 2L at home. Given 324mg asa and updraft with improvement in symptoms. Vitals otherwise stable. No significant leukocytosis. Stable normocytic anemia. Renal function and electrolyte levels normal. Lactic acid 1.4. Troponin within normal limits. BNP 946. Ethyl alcohol level undetectable. Negative for COVID-19 and influenza. Chest x-ray shows prominent bronchovascular markings with bronchial wall thickening suggestive of small airway disease but no acute consolidation or pleural effusion. In the ED, given 60 mg IV Lasix and 4 mg morphine as well as 4 mg ondansetron. Review of Systems Review of Systems: General: No fevers, malaise, unintentional weight loss HEENT: No blurred vision, diplopia. No sore throat, nasal congestion, rhinorrhea, sinus pain, ear pain Cardiovascular: +chest pain, +ble edema. No palpitations Respiratory: +sob. No wheezing, cough GI: +diarrhea. No abdominal pain, nausea, vomiting, constipation, melena, hematochezia : No dysuria, hematuria, increased urinary frequency MSK: No myalgia, back pain Neuro: No headaches, weakness, paresthesias Skin: No rashes or lesions [facility] Medical History History of cardiac arrest (~05/2020) Nicotine dependence, cigarettes, uncomplicated Personal history of colonic polyps Hypoventilation associated with obesity syndrome Encephalopathy chronic Morbid obesity MJ (obstructive sleep apnea) Effusion, right knee CKD (chronic kidney disease) stage 3, GFR 30-59 ml/min Cirrhosis Diabetes Obesity (BMI 35.0-39.9 without comorbidity) Wernicke encephalopathy Obstructive sleep apnea (adult) (pediatric) Alcohol use disorder, severe, dependence Rib fractures CHF (congestive heart failure) Left atrial enlargement Persistent atrial fibrillation Depression Gout Arthritis Anxiety HTN (hypertension) Family History Father Lung cancer Mother No problems noted. Maternal Aunt History of heart attack Sister No problems noted. Brother Cancer of kidney Brother No problems noted. Brother No problems noted. Brother No problems noted. Brother No problems noted. Brother No problems noted. Other Substance use disorder Surgical History History of tracheostomy (~2019) History of bronchoscopy (~2019) History of colonoscopy (~2021) History of esophagogastroduodenoscopy (EGD) (~2021) History of cardioversion (~2020) S/P percutaneous endoscopic gastrostomy (PEG) tube placement (~2019) Social History Household Members: Significant Other and Children Housing: House Do you presently have visiting nurse or other home services: No Unable to assess alcohol history related to: Unknown Alcohol intake: current Alcohol intake frequency: 3 or more drinks per day Alcohol type: beer and hard liquor Comment: 1:1 sitter Patient Tobacco Use Status: Current everyday Tobacco user Tobacco use type: Cigarette Cigarette Packs Per Day: 1 Cigarettes Per Day: 20.0 Smoked in Last 30 Days: Yes e-Cigarette/Vaping Use: Never Used Second Hand Smoke Exposure: No Advance Directives: Yes Advance Directives on File: Yes Advance Directives Date on File: 06/05/20 service: Yes Current occupational status: unemployed Cognitive needs: No Hearing needs: No Vision needs: No Meds Allergies Allergy/AdvReac Type Severity Reaction Status Date / Time No Known Allergies Allergy Verified 06/18/23 03:59 [No Known Allergies*] Active Medications: Current Medications Acetaminophen (Acetaminophen 325 Mg Tablet) 650 mg PO Q6H PRN PRN Reason: Pain, Mild (Pain Scale 1-3) Dextrose (Dextrose 50 % 25 Gm/50 Ml Syringe) 25 gm IVPUSH Q15M PRN; Protocol PRN Reason: per Hypoglycemia Standing Ord. Furosemide (Furosemide 40 Mg/4 Ml Vial) 40 mg IVPUSH DAILY [facility]; Protocol Glucose (Glucose Gel 15 Gm Gel..Gram.) 15 gm PO Q15M PRN; Protocol PRN Reason: per Hypoglycemia Standing Ord. Insulin Human Lispro (Insulin Lispro 100 Unit/Ml 3 Ml Vial) 0 unit SUBCUT QIDAS [facility]; Protocol Ondansetron HCl (Ondansetron Hcl 4 Mg/2 Ml Vial) 4 mg IVPUSH Q8H PRN PRN Reason: Nausea and Vomiting Senna (Sennosides 8.6 Mg Tablet) 17.2 mg PO BEDTIME PRN PRN Reason: Constipation Sodium Chloride (0.9 % Sodium Chloride Flush 3 Ml Syringe) 3 ml IVFLUSH [facility] Home Medications Medication Instructions Recorded Confirmed Last Taken Type fluoxetine 40 mg capsule 40 mg PO DAILY 07/13/23 07/13/23 07/13/23 History Physical Exam Vital Signs and Narrative: Vital Signs: Last Vital Signs Temp 98.2 F 07/13/23 19:49 Pulse 82 07/13/23 19:49 Resp 18 07/13/23 19:49 BP 139/56 L 07/13/23 19:49 Pulse Ox 94 07/13/23 19:49 O2 Del Method Nasal Cannula 07/13/23 19:49 O2 Flow Rate 3 07/13/23 19:49 Oxygen Flow Rate 2 07/13/23 18:12 BMI result Body Mass Index 44.2 Constitutional - Awake and Alert, No apparent distress Eyes - PERRLA, EOMI Cardiovascular - S1S2, RRR, No edema Respiratory - Normal lung expansion, Normal respiratory effort, No respiratory distress on 3L supplemental O2, bibasilar crackles Gastrointestinal - morbidly obese abdomen, NT / ND; +BS; No rebound or guarding Extremities - no calf tenderness bilaterally, no swelling Skin - Warm/Dry Neurological - Alert & oriented x3 Psychological - Appropriate affect Results Labs 07/13/23 18:40 07/13/23 18:40 Labs: Laboratory Results - last 24 hr 07/13/23 07/13/23 18:40 18:52 MCV 93.6 MCH 31.1 MCHC 33.2 RDW 14.5 Plt Count 150 L MPV 11.6 Immature Gran % (Auto) 0.4 Neut % (Auto) 65.4 Lymph % (Auto) 23.4 [place] % (Auto) 8.9 Eos % (Auto) 1.3 Baso % (Auto) 0.6 Lymph # (Auto) 2.6 [place] # (Auto) 1.0 Eos # (Auto) 0.1 Baso # (Auto) 0.1 Abs Immat Gran (auto) 0.04 H Absolute Neuts (auto) 7.2 Absolute Nucleated RBC 0.000 Nucleated RBC % (auto) 0.0 Smear Tech's Comments VERIFIED Hold Purple Top SEE NOTE PT 16.4 H INR 1.3 H APTT 35.0 Anion Gap 14 Estim Creat Clear Calc 113.2 Estimated GFR > 60 Random Glucose 140 H Lactic Acid 1.4 Calcium 9.1 D Total Bilirubin 0.7 AST 16 ALT 8 Alkaline Phosphatase 97 B-Natriuretic Peptide 946 H Total Protein 7.4 Albumin 3.6 Lipase 19 Ethyl Alcohol < 10 COVID-19 ([facility]INDEN) Negative COVID-19 Clin Com See Note Influenza Type A (LACI) Negative Influenza Type B (LACI) Negative Influenza A & B Note See Note Imaging Radiologist's Impressions: Impressions Chest X-Ray 07/13/23 19:10 IMPRESSION: Prominent bronchovascular markings with bronchial wall thickening suggestive of small airway disease. No acute consolidation or pleural effusion. Assessment and Plan (1) CHF exacerbation: Status: Acute Plan 63-year-old male with a history of alcoholic cirrhosis, MJ compliant with CPAP, COPD with chronic hypoxemic respiratory failure on 2L supplemental O2 at baseline, alcohol use disorder, Wernicke's encephalopathy, myl-bjqsyhs-hwfauqyxn type 2 diabetes, persistent atrial fibrillation anticoagulated with Eliquis with history of cardioversion in 2020, CHF, history of cardiac arrest, obesity hypoventilation syndrome who is morbidly obese with BMI greater than 44 and who is a current 1/2 pack per day cigarette smoker admitted for acute CHF exacerbation #Acute CHF exacerbation -BNP >900. CXR prominent bronchovascular markings. No effusion. Clinically volume overloaded -IV lasix 40mg daily -strict I&O -daily weights -cardiac diet -echocardiogram -follow renal fx, lytes. Trend bnp -consider cardiology consult if not improving #Chronic hypoxemic respiratory failure due to COPD/MJ/obesity hypoventilation syndrome -continue home supplemental O2 -no acute exacerbation -continue home inhalers #Chest pain- resolved on admission -likely due to above -EKG without acute ischemic changes, trop wnl # ofo-nrtkijz-rlkgghcpo type 2 diabetes -POC glucose, diabetic diet -Humalog on sliding scale -hold oral antihyperglycemics # permanent atrial fibrillation-rate controlled -continue Eliquis for anticoagulation -continue metoprolol for rate control #Alcohol use disorder -no use in several days per pt -montior on ciwa, no evidence of acute w/d on exam -po thiamine and folic acid -addiction med consult #HTN -bp reasonably controlled -continue home antihypertensives #HLD -continue statin #cigarette smoking -cessation cousneling -patch for nrt DVT prophylaxis- eliquis full code med rec pending pt requires inpt stay at least 2 midnights for management of volume overloaded due to chf exacerbation and medication noncompliance requiring iv diuresis and close monitoring of I&O as well as monitoring of renal function and electrolyte levels Quality Stroke Does the patient have a stroke diagnosis?: No VTE Prior VTE?: No VTE Risk Level:: Medical - moderate - high VTE Device Contraindication: Treatment Not Indicated VTE Drug Contraindication: N/A - Med Ordered
--- NOTE | 2023-07-13 21:46 | PHA.MEDREC ---
Pharmacy Consult ? Medication Reconciliation Pharmacy has completed the medication reconciliation. Patient confirmed medication through claim history Mary Morocho CPht
[2023-07-13 22:10] LABS: Appearance Urine Clear; Color Urine Yellow; Glucose Urine UA Negative (Negative); Leukocyte Esterase Urine Negative (Negative); Nitrite Urine Negative (Negative); Specific Gravity - Urine 1.015 (1.005-1.025); UMIC TRIGGER UACC YES; Urine Blood Small (1+) (Negative); Urine Ketones Negative (Negative); Urine Protein 30 (1+) mg/dL (Neg-Trace)
[2023-07-13 22:21] LABS: Bacteria Urine None Seen (None Seen); Hyaline Casts Urine 0-2 /LPF (0-2); Squamous Epithelial Cell Urine 0-2 /HPF (0-2); WBC Urine 0-5 /HPF (0-5)
[2023-07-13 22:27] LABS: Troponin-I High Sensitivity 3.5 ng/L (<3.5-35.0)
[2023-07-13] MEDS: Gabapentin 300 MG CAPSULE PO (23:03)
[2023-07-13] MEDS: Apixaban 5 MG TABLET PO (23:03)
[2023-07-13] MEDS: Metoprolol Tartrate 50 MG TABLET PO (23:03)
[2023-07-14 05:11] VITALS: BP 100/68; PULSE 84; RESP 20; TEMP 36.7; O2SAT 90
--- NOTE | 2023-07-14 05:27 | PC.NURSE ---
spo2 noted to be 83% on cpap; pt states he feels as if he struggling to catch his breath. repositioned in bed with slight improvement to 85%. respiratory notified. Dr Vences also notified via [place] [employer].
[2023-07-14] MEDS: Omeprazole 40 MG CAPSULE.DR PO (05:34)
[2023-07-14] MEDS: Furosemide 40 MG/4 ML VIAL IVPUSH (05:34)
--- NOTE | 2023-07-14 05:34 | PC.NURSE ---
Dr Vences at bedside. verbal order to give AM dose of Lasix early and to increase FiO2 on cpap. Lasix 40mg IV administered. Resp now at bedside.
--- NOTE | 2023-07-14 05:40 | PC.NURSE ---
pt taken off cpap and placed on O2 3LPM via NC. spo2 increased to 91%. xray now at bedside.
[2023-07-14 05:50] LABS: MANUAL DIFF FLAG NO
[2023-07-14 05:53] LABS: Basophils Absolute Auto 0.1 X10*3/uL (0.0-0.2); Basophils Percent Auto 0.6 % (0-2); Eosinophils Absolute Auto 0.2 X10*3/uL (0.0-0.4); Eosinophils Percent Auto 1.7 % (0-4); Hematocrit 40.3 % (42.0-52.0); Imm Gran Abs Auto 0.04 X10*3/uL (0.00-0.03); Imm Gran Pct Auto 0.4 % (0.0-0.4); Lymphocytes Absolute Auto 2.4 X10*3/uL (1.2-4.9); Lymphocytes Percent Auto 23.1 % (20-40); Mean Corpuscular HGB Conc 32.3 g/dl (31.0-36.0); Mean Corpuscular Hemoglobin 30.9 pg (27.0-33.0); Mean Corpuscular Volume 95.7 fL (80.0-98.0); Mean Platelet Volume 11.3 fL (9.4-12.4); Monocytes Percent Auto 9.8 % (2-11); NRBC Pct Auto 0.2 /100WBC (0.0-0.2); Neutrophils Absolute Auto 6.6 x10*3/uL (2.0-8.3); Neutrophils Percent Auto 64.4 % (45-73); Platelet Count 169 X10*3/uL (160-400); Red Blood Count 4.21 X10*6/uL (4.60-5.80); Red Cell Distribution Width 14.6 % (11.0-16.0); White Blood Count 10.2 X10*3/uL (4.8-10.8)
[2023-07-14 06:07] LABS: Anion Gap 16 (12-20); Blood Urea Nitrogen 14 mg/dL (9-16); Carbon Dioxide 29 mmol/L (22-29); Chloride 102 mmol/L (96-108); Creatinine Clr Calc Pharmacy 99.8; Estimated Glomerular Filt Rate > 60; Glucose Random 102 mg/dL (60-115); Potassium 3.9 mmol/L (3.3-5.1); Sodium 143 mmol/L (135-145)
[2023-07-14 06:14] LABS: B Type Natriuretic Peptide 821 pg/mL (<100)
--- NOTE | 2023-07-14 06:31 | PC.NURSE ---
SPO2 improved to 94% on O2 3LPM via NC
--- NOTE | 2023-07-14 07:00 | CA_ITS ---
Transthoracic Echocardiogram Patient (Last, First, Middle): Esteban Galindo F Gender: Male Date of : 1960 Age: 63 Procedure Date: 07/14/2023 Procedure Type: Transthoracic Echocardiogram Location: ER Height: 185.42 cm Weight: 151.96 kg BSA: 2.68 m2 Heart Rate: 80 bpm BP: 122 / 56 mmHg Seismograph Recorder: [id number] Referring MD: Enedelia BARNES Symptoms: chf Study Quality: Fair/w Contrast ECG Rhythm: Atrial Fibrillation Conclusions: - The left ventricular systolic function is mildly decreased. The calculated ejection fraction is 48% by biplane method. - Aortic valve sclerosis, but no significant stenosis. - There is mild mitral annular calcification. - Mild pulmonary hypertension is present. - There is mild dilatation of the sinuses of Valsalva measuring 4.60 cm and mild dilatation of the ascending aorta measuring 4.00 cm. Findings Procedure Information Contrast agent, definity, is being given per protocol without apparent complications. Left Ventricle Normal left ventricular cavity size. There is moderately increased left ventricular wall thickness. The left ventricular systolic function is mildly decreased. The calculated ejection fraction is 48% by biplane method. There is mild global hypokinesis. Diastolic function is indeterminate on the basis of available data. Right Ventricle Mildly increased right ventricular cavity size. There is mildly decreased right ventricular systolic function. Atria The left atrium is mildly dilated. The right atrium is normal in size. Aortic Valve There is mild calcification of the aortic valve. There is no aortic valve regurgitation. No significant aortic stenosis. Mitral Valve There is mild mitral annular calcification. There is trace mitral valve regurgitation. There is no mitral valve stenosis. Pulmonic Valve The pulmonic valve is likely normal. Tricuspid Valve There is trace tricuspid valve regurgitation. Mild pulmonary hypertension is present. Great Vessels There is mild dilatation of the sinuses of Valsalva measuring 4.60 cm and mild dilatation of the ascending aorta measuring 4.00 cm. Venous The inferior vena cava is dilated and collapses less than 50% with inspiration. Pericardium/Pleural There is no evidence of pericardial effusion. Prior Study Comparison Changes noted compared to prior study dated: 04/09/2022. LVEF decreased; see comment on aorta. Measurements 2D Linear Measurements IVSd: 1.50 0.6-0.9/0.6-1.0 cm LVIDd: 5.69 3.9-5.3/4.2-5.9 cm LVIDd Index: 2.12 2.4-3.2/2.2-3.1 cm/m2 LVIDs: 3.80 2.0-3.6 cm LVPWd: 1.42 0.7-1.1 cm LA Diam: 4.50 2.7-3.8/3.0-4.0 cm LAIDs Index: 1.68 1.5-2.3 cm/m2 LV Mass: 472.22 67-162/88-224 g LV Mass Index: 176.20 43-95/49-115 g/m2 LVOT Diam: 2.30 3.0+(-)1.3 cm 2D Systolic Function EF 4C: 48.10 >55% EF 2C: 45.10 >55% EF BiP: 47.50 >55% Mitral Valve MV Pk E: 1.51 MV Decel Time: 195.00 E'Lateral: 7.30 E'Medial: 8.19 E/E' Med: 18.40 E/E' Lat: 20.70 PHT: 57.00 MVA PHT: 3.86 Decel [place]: 7.75 Aortic Valve AoV Pk Yuval: 2.33 AoV Mn Yuval: 1.65 AoV VTI: 0.49 AoV Pk Grad: 22.00 Aov Mn Grad: 12.00 STONE Cont.VTI: 2.23 LVOT LVOT Pk Yuval: 1.27 LVOT Mn Yuval: 0.92 LVOT VTI: 0.26 LVOT Pk Grad: 6.00 LVOT Mn Grad: 4.00 LVOT Diam: 2.30 LVOT Area: 4.15 Diastolic Function MV Pk E: 1.51 E'Medial: 8.19 E/E' Med: 18.40 E' Laterial: 7.30 E/E' Lat: 20.70 Right Ventricle TAPSE (mm): 18.60 TVS' Yuval: 9.24 Tricuspid Valve TR Pk Yuval: 2.58 TR Pk Grad: 27.00 RA Press: 15.00 RVSP: 42.00 Great Vessels Aorta Sinus of Valsalva: 4.60 2.0-3.5 cm Ao Asc: 4.00 2.1-3.4 cm Pulmonary Valve PV Pk Yuval: 0.87 Peak PV Grad: 3.00 Updated in Other Vendor System with Status of Final Stuart Rosario MD electronically signed on 07/14/2023 12:07:34 PM with status of Final
[2023-07-14 07:28] LABS: Glucose, Whole Blood 108 mg/dL (60-115)
[2023-07-14 08:16] VITALS: BP 122/56; PULSE 91; RESP 22; TEMP 37.1; O2SAT 96
[2023-07-14] MEDS: Furosemide 20 MG TABLET 30 MG PO (08:17)
[2023-07-14] MEDS: Nicotine 14 MG PATCH.TD24 TRANSDERMA (08:17)
[2023-07-14] MEDS: Thiamine HCL 100 MG TABLET PO (08:18)
[2023-07-14] MEDS: Atorvastatin Calcium 20 MG TABLET PO (08:18)
[2023-07-14] MEDS: lisinopriL 2.5 MG TABLET PO (08:18)
[2023-07-14] MEDS: Folic Acid 1 MG TABLET PO (08:18)
[2023-07-14] MEDS: Metoprolol Tartrate 50 MG TABLET PO ×2 (08:18→20:43)
[2023-07-14] MEDS: amLODIPine Besylate 5 MG TABLET PO (08:18)
[2023-07-14] MEDS: Apixaban 5 MG TABLET PO ×2 (08:18→20:43)
[2023-07-14] MEDS: FLUoxetine HCl 20 MG CAPSULE 40 MG PO (08:18)
[2023-07-14] MEDS: Gabapentin 300 MG CAPSULE PO ×2 (08:18→20:43)
[2023-07-14] MEDS: 0.9 % Sodium Chloride Flush 3 ML SYRINGE IVFLUSH ×2 (08:19→17:48)
--- NOTE | 2023-07-14 08:29 | PC.NURSE ---
alert and oriented, 95% on 4L reporting improvement in breathing from this morning. provided with hospital bed for comfort. patient able to get out of bed independently to use bathroom. medicated per the AUG, ate all of breakfast. offering no other complaints at this time, call dietrich in place watching TV.
--- NOTE | 2023-07-14 09:44 | HO.PM.IMPN ---
Subjective Subjective Date of Service: 07/14/23 Interval History: Seen in follow up for chf exacerbation Interval history overnight desat to 83% on cpap. given 40mg IV lasix earlier. Repeat cxr showed possible bronchitis vs developing pneumonia. Still reporting sob, orthopnea, edema. Pleuritic cp Review of Systems Review of Systems: Yes all other systems are reviewed and are negative Physical Exam Vital Signs: Vital Signs: Last Vital Signs Temp 98.7 F 07/14/23 08:16 Pulse 91 07/14/23 08:16 Resp 22 H 07/14/23 08:16 BP 122/56 L 07/14/23 08:16 Pulse Ox 96 07/14/23 08:16 O2 Del Method Nasal Cannula 07/14/23 08:16 O2 Flow Rate 4 07/14/23 08:16 Oxygen Flow Rate 2 07/13/23 18:12 BMI result Body Mass Index 44.2 Constitutional - Awake and Alert, No apparent distress Eyes - PERRLA, EOMI Cardiovascular - S1S2, RRR, 1+ ble edema Chest- reproducible ttp across anterior chest Respiratory - Normal lung expansion, Normal respiratory effort, No respiratory distress, bibasilar crackles. Gastrointestinal - NT / ND; +BS; No rebound or guarding Extremities - no calf tenderness bilaterally, no swelling Skin - Warm/Dry Neurological - Alert & oriented x3 Psychological - Appropriate affect Objective Data Active Medications Acetaminophen (Acetaminophen 325 Mg Tablet) 650 mg PO Q6H PRN PRN Reason: Pain, Mild (Pain Scale 1-3) Albuterol Sulfate (Albuterol Sulfate 90 Mcg 8 Gm Inhaler) 2 puff INHALE QID PRN PRN Reason: Wheezing Amlodipine Besylate (Amlodipine Besylate 5 Mg Tablet) 5 mg PO DAILY [facility]; Protocol Last Admin: 07/14/23 08:18 Dose: 5 mg Documented By: DANICA Apixaban (Apixaban 5 Mg Tablet) 5 mg PO BID [facility] Last Admin: 07/14/23 08:18 Dose: 5 mg Documented By: DANICA Atorvastatin Calcium (Atorvastatin Calcium 20 Mg Tablet) 20 mg PO DAILY [facility] Last Admin: 07/14/23 08:18 Dose: 20 mg Documented By: DANICA Dextrose (Dextrose 50 % 25 Gm/50 Ml Syringe) 25 gm IVPUSH Q15M PRN; Protocol PRN Reason: per Hypoglycemia Standing Ord. Fluoxetine HCl (Fluoxetine Hcl 20 Mg Capsule) 40 mg PO DAILY [facility] Last Admin: 07/14/23 08:18 Dose: 40 mg Documented By: DANICA Folic Acid (Folic Acid 1 Mg Tablet) 1 mg PO DAILY [facility] Last Admin: 07/14/23 08:18 Dose: 1 mg Documented By: DANICA Furosemide (Furosemide 40 Mg/4 Ml Vial) 40 mg IVPUSH DAILY [facility]; Protocol Last Admin: 07/14/23 05:34 Dose: 40 mg Documented By: YONATHAN Furosemide (Furosemide 20 Mg Tablet) 30 mg PO DAILY [facility]; Protocol Last Admin: 07/14/23 08:17 Dose: 30 mg Documented By: DANICA Gabapentin (Gabapentin 300 Mg Capsule) 300 mg PO BID [facility] Last Admin: 07/14/23 08:18 Dose: 300 mg Documented By: DANICA Glucose (Glucose Gel 15 Gm Gel..Gram.) 15 gm PO Q15M PRN; Protocol PRN Reason: per Hypoglycemia Standing Ord. Insulin Human Lispro (Insulin Lispro 100 Unit/Ml 3 Ml Vial) 0 unit SUBCUT QIDACHS [facility]; Protocol Last Admin: 07/14/23 07:31 Dose: Not Given Documented By: DANICA Non-Admin Reason: No Insulin Coverage Lisinopril (Lisinopril 2.5 Mg Tablet) 2.5 mg PO DAILY [facility]; Protocol Last Admin: 07/14/23 08:18 Dose: 2.5 mg Documented By: DANICA Metoprolol Tartrate (Metoprolol Tartrate 50 Mg Tablet) 50 mg PO BID [facility]; Protocol Last Admin: 07/14/23 08:18 Dose: 50 mg Documented By: DANICA Nicotine (Nicotine 14 Mg Patch.Td24) 14 mg TRANSDERMA DAILY [facility] Last Admin: 07/14/23 08:17 Dose: 14 mg Documented By: DNAICA Omeprazole (Omeprazole 40 Mg Capsule.Dr) 40 mg PO DAILY@0630 [facility] Last Admin: 07/14/23 05:34 Dose: 40 mg Documented By: YONATHAN Ondansetron HCl (Ondansetron Hcl 4 Mg/2 Ml Vial) 4 mg IVPUSH Q8H PRN PRN Reason: Nausea and Vomiting Senna (Sennosides 8.6 Mg Tablet) 17.2 mg PO BEDTIME PRN PRN Reason: Constipation Sodium Chloride (0.9 % Sodium Chloride Flush 3 Ml Syringe) 3 ml IVFLUSH QSHIFT [facility] Last Admin: 07/14/23 08:19 Dose: 3 ml Documented By: DANICA Thiamine HCl (Thiamine Hcl 100 Mg Tablet) 100 mg PO DAILY [facility] Last Admin: 07/14/23 08:18 Dose: 100 mg Documented By: DANICA Labs 07/14/23 04:32 07/14/23 04:32 Labs: Laboratory Results - last 24 hr 07/13/23 07/13/23 07/13/23 18:40 18:52 22:02 MCV 93.6 MCH 31.1 MCHC 33.2 RDW 14.5 Plt Count 150 L MPV 11.6 Immature Gran % (Auto) 0.4 Neut % (Auto) 65.4 Lymph % (Auto) 23.4 [place] % (Auto) 8.9 Eos % (Auto) 1.3 Baso % (Auto) 0.6 Lymph # (Auto) 2.6 Clarke # (Auto) 1.0 Eos # (Auto) 0.1 Baso # (Auto) 0.1 Abs Immat Gran (auto) 0.04 H Absolute Neuts (auto) 7.2 Absolute Nucleated RBC 0.000 Nucleated RBC % (auto) 0.0 Smear Tech's Comments VERIFIED Hold Purple Top SEE NOTE PT 16.4 H INR 1.3 H APTT 35.0 Anion Gap 14 Estim Creat Clear Calc 113.2 Estimated GFR > 60 POC Glucose Random Glucose 140 H Lactic Acid 1.4 Calcium 9.1 D Total Bilirubin 0.7 AST 16 ALT 8 Alkaline Phosphatase 97 B-Natriuretic Peptide 946 H Total Protein 7.4 Albumin 3.6 Lipase 19 Urine Color Yellow Urine Appearance Clear Urine pH 6.0 Ur Specific [place] 1.015 Urine Protein 30 (1+) H Urine Glucose (UA) Negative Urine Ketones Negative Urine Blood Small (1+) H Urine Nitrite Negative Ur Leukocyte Esterase Negative Urine RBC 3-5 H Urine WBC 0-5 Ur Squamous Epith Cells 0-2 Urine Bacteria None Seen Hyaline Casts 0-2 Ethyl Alcohol < 10 COVID-19 (LINDEN) Negative COVID-19 Clin Com See Note Influenza Type A (LACI) Negative Influenza Type B (LACI) Negative Influenza A & B Note See Note 01/18/24 01/18/24 04:32 07:24 MCV 95.7 MCH 30.9 MCHC 32.3 RDW 14.6 Plt Count 169 MPV 11.3 Immature Gran % (Auto) 0.4 Neut % (Auto) 64.4 Lymph % (Auto) 23.1 Clarke % (Auto) 9.8 Eos % (Auto) 1.7 Baso % (Auto) 0.6 Lymph # (Auto) 2.4 Clarke # (Auto) 1.0 Eos # (Auto) 0.2 Baso # (Auto) 0.1 Abs Immat Gran (auto) 0.04 H Absolute Neuts (auto) 6.6 Absolute Nucleated RBC 0.020 H Nucleated RBC % (auto) 0.2 Smear Tech's Comments Hold Purple Top PT INR APTT Anion Gap 16 Estim Creat Clear Calc 99.8 Estimated GFR > 60 POC Glucose 108 Random Glucose 102 Lactic Acid Calcium 9.0 Total Bilirubin AST ALT Alkaline Phosphatase B-Natriuretic Peptide 821 H Total Protein Albumin Lipase Urine Color Urine Appearance Urine pH Ur Specific [place] Urine Protein Urine Glucose (UA) Urine Ketones Urine Blood Urine Nitrite Ur Leukocyte Esterase Urine RBC Urine WBC Ur Squamous Epith Cells Urine Bacteria Hyaline Casts Ethyl Alcohol COVID-19 (LINDEN) COVID-19 Clin Com Influenza Type A (LACI) Influenza Type B (LACI) Influenza A & B Note Assessment and Plan (1) CHF exacerbation: Status: Acute (2) Hypoxia: Status: Acute (3) Pneumonia: Status: Inactive Plan 63-year-old male with a history of alcoholic cirrhosis, MJ compliant with CPAP, COPD with chronic hypoxemic respiratory failure on 2L supplemental O2 at baseline, alcohol use disorder, Wernicke's encephalopathy, [id number] type 2 diabetes, persistent atrial fibrillation anticoagulated with Eliquis with history of cardioversion in 2020, CHF, history of cardiac arrest, obesity hypoventilation syndrome who is morbidly obese with BMI greater than 44 and who is a current 1/2 pack per day cigarette smoker admitted for acute CHF exacerbation #Acute CHF exacerbation -BNP trendnig down. CXR prominent bronchovascular markings. No effusion. Clinically volume overloaded -IV lasix 40mg daily -strict I&O, -1.8L -daily weights -cardiac diet -echocardiogram -follow renal fx, lytes. Trend bnp -consider cardiology consult if not improving #Acute pneumonia -repeat cxr showing possible bronchitis vs developing penumonia -IV ceftriaxone and doxycycline (initiated 1/18) -sputum cx, strep pneumo ag, legionella ag pending -symptomatic management - Follow cbc, cultures #Acute on Chronic hypoxemic respiratory failure due to above -now denies home use. Continue suppemental O2 to maintain oximetry >92%. -no acute exacerbation -continue home inhalers #Atypical Chest pain -likely due to above -EKG without acute ischemic changes, trop wnl # [id number] type 2 diabetes -POC glucose, diabetic diet -Humalog on sliding scale -hold oral antihyperglycemics # permanent atrial fibrillation-rate controlled -continue Eliquis for anticoagulation -continue metoprolol for rate control #Alcohol use disorder -no use in several days per pt -montior on ciwa, no evidence of acute w/d on exam -po thiamine and folic acid -addiction med consult #HTN -bp reasonably controlled -continue home antihypertensives #HLD -continue statin #cigarette smoking -cessation cousneling -patch for nrt DVT prophylaxis- eliquis full code med rec pending pt requires ongoing inpt stay for IV diuresis with close monitoring of intake and output as well as renal function/lytes montioring. He also requires iv abd for pneumonia with acute on chronic hypoxemic respiratory failure Quality Stroke Does the patient have a stroke diagnosis?: No VTE Prior VTE?: No VTE Risk Level:: Medical - moderate - high VTE Device Contraindication: Treatment Not Indicated VTE Drug Contraindication: N/A - Med Ordered
[2023-07-14] MEDS: methylPREDNISolone Sod Succ 40 MG/ML VIAL IVPUSH ×2 (10:14→21:59)
[2023-07-14] MEDS: cefTRIAXone sodium 1 GM in 0.9 % Sodium Chloride 50 ML IV (10:15)
--- NOTE | 2023-07-14 11:17 | PC.NURSE ---
cardiology in room doing echocardiogram
[2023-07-14] MEDS: Doxycycline Hyclate 100 MG in 0.9 % Sodium Chloride 250 ML 166.67 MG IV ×2 (11:54→22:00)
[2023-07-14 12:03] LABS: Glucose, Whole Blood 132 mg/dL (60-115)
--- NOTE | 2023-07-14 13:30 | MHC.CM.PN ---
pt from home where he lives with his he had no servies prior to admisison pt is independent has own ride home dc plan home no services
--- NOTE | 2023-07-14 15:55 | PC.NURSE ---
continues to rest quietly and independently in room, offering no complaints. inquiring as to when he will be discharged, states he is feeling much better at this time.
[2023-07-14 16:00] VITALS: BP 138/74; PULSE 80; RESP 16; TEMP 37.1; O2SAT 97
[2023-07-14 16:26] LABS: Glucose, Whole Blood 264 mg/dL (60-115)
[2023-07-14] MEDS: LORazepam 2 MG/ML VIAL 1 MG IVPUSH (17:48)
[2023-07-14 18:20] VITALS: BP 146/83; PULSE 87; RESP 18; TEMP 36.8; O2SAT 95
[2023-07-14] MEDS: Insulin Lispro 100 UNIT/ML 3 ML VIAL SUBCUT ×2 (18:24→20:43)
[2023-07-14 19:31] VITALS: PULSE 84; RESP 20; O2SAT 97
[2023-07-14 20:21] LABS: Glucose, Whole Blood 213 mg/dL (60-115)
[2023-07-14] MEDS: PHENobarbitaL sodium 130 MG/ML VIAL IM (21:59)
[2023-07-14 22:17] VITALS: PULSE 77; RESP 18; O2SAT 92
[2023-07-15] VITALS: BP 150/72; PULSE 89; RESP 20; TEMP 36.2; O2SAT 93
[2023-07-15] MEDS: 0.9 % Sodium Chloride Flush 3 ML SYRINGE IVFLUSH ×2 (00:53→09:38)
[2023-07-15 04:00] VITALS: BP 140/81; PULSE 89; RESP 20; TEMP 36.3; O2SAT 94
[2023-07-15 05:53] LABS: MANUAL DIFF FLAG NO
[2023-07-15 06:09] LABS: Basophils Percent Auto 0.2 % (0-2); Eosinophils Percent Auto 0.2 % (0-4); Hematocrit 39.2 % (42.0-52.0); Hemoglobin 12.9 g/dl (14.0-18.0); Imm Gran Abs Auto 0.13 X10*3/uL (0.00-0.03); Imm Gran Pct Auto 1.1 % (0.0-0.4); Lymphocytes Absolute Auto 2.1 X10*3/uL (1.2-4.9); Lymphocytes Percent Auto 18.1 % (20-40); Mean Corpuscular HGB Conc 32.9 g/dl (31.0-36.0); Mean Corpuscular Volume 91.2 fL (80.0-98.0); Mean Platelet Volume 11.2 fL (9.4-12.4); Monocytes Absolute Auto 0.3 X10*3/uL (0.1-1.2); Monocytes Percent Auto 2.9 % (2-11); Neutrophils Absolute Auto 8.9 x10*3/uL (2.0-8.3); Neutrophils Percent Auto 77.5 % (45-73); Platelet Count 177 X10*3/uL (160-400); Red Cell Distribution Width 14.1 % (11.0-16.0); White Blood Count 11.4 X10*3/uL (4.8-10.8)
[2023-07-15 06:21] LABS: Anion Gap 15 (12-20); Blood Urea Nitrogen 23 mg/dL (9-16); Calcium 9.2 mg/dL (8.4-10.2); Carbon Dioxide 29 mmol/L (22-29); Chloride 96 mmol/L (96-108); Creatinine Clr Calc Pharmacy 89.2; Estimated Glomerular Filt Rate 55; Potassium 4.1 mmol/L (3.3-5.1); Sodium 136 mmol/L (135-145)
[2023-07-15 06:22] LABS: Glucose Random 352 mg/dL (60-115)
[2023-07-15 07:09] VITALS: BP 153/82; PULSE 81; RESP 20; TEMP 36.6; O2SAT 93
[2023-07-15 07:52] LABS: Glucose, Whole Blood 223 mg/dL (60-115)
[2023-07-15] MEDS: cefTRIAXone sodium 1 GM in 0.9 % Sodium Chloride 50 ML IV (09:26)
[2023-07-15] MEDS: methylPREDNISolone Sod Succ 40 MG/ML VIAL IVPUSH (09:29)
[2023-07-15] MEDS: Furosemide 40 MG/4 ML VIAL IVPUSH (09:29)
[2023-07-15] MEDS: Doxycycline Hyclate 100 MG in 0.9 % Sodium Chloride 250 ML 166.67 MG IV (09:37)
[2023-07-15] MEDS: Thiamine HCL 100 MG TABLET PO (09:38)
[2023-07-15] MEDS: Apixaban 5 MG TABLET PO (09:38)
[2023-07-15] MEDS: FLUoxetine HCl 20 MG CAPSULE 40 MG PO (09:38)
[2023-07-15] MEDS: Gabapentin 300 MG CAPSULE PO (09:38)
[2023-07-15] MEDS: lisinopriL 2.5 MG TABLET PO (09:38)
[2023-07-15] MEDS: amLODIPine Besylate 5 MG TABLET PO (09:38)
[2023-07-15] MEDS: Folic Acid 1 MG TABLET PO (09:38)
[2023-07-15] MEDS: Nicotine 14 MG PATCH.TD24 TRANSDERMA (09:38)
[2023-07-15] MEDS: Metoprolol Tartrate 50 MG TABLET PO (09:38)
[2023-07-15] MEDS: Atorvastatin Calcium 20 MG TABLET PO (09:38)
[2023-07-15] MEDS: Insulin Lispro 100 UNIT/ML 3 ML VIAL SUBCUT (09:39)
[2023-07-15 11:14] VITALS: BP 143/70; PULSE 78; RESP 20; TEMP 36.4; O2SAT 94
[2023-07-15 11:29] LABS: Glucose, Whole Blood 179 mg/dL (60-115)
--- NOTE | 2023-07-15 13:50 | PM.DS ---
DS: Providers Provider Date of Service: 07/15/23 Date of admission: 07/13/23 21:22 Date of discharge: 07/15/23 Primary care physician: SEAMUS MckoyP- Consults: 07/13/23 21:43 Addiction Medicine Routine Consulting Provider: Addiction Covering Reason for consultation: etoh abuse DS: Diagnosis Discharge Diagnosis (1) CHF exacerbation: Status: Acute (2) Hypoxia: Status: Acute (3) Pneumonia: Status: Inactive DS: Summary Hospital Course Hospital Course: 63-year-old male with a history of alcoholic cirrhosis, MJ compliant with CPAP, COPD with chronic hypoxemic respiratory failure on 2L supplemental O2 at baseline, alcohol use disorder, Wernicke's encephalopathy, jjt-hqumqez-haygyjuhp type 2 diabetes, persistent atrial fibrillation anticoagulated with Eliquis with history of cardioversion in 2020, CHF, history of cardiac arrest, obesity hypoventilation syndrome who is morbidly obese with BMI greater than 44 and who is a current 1/2 pack per day cigarette smoker presented to the ED earlier today for evaluation of chest pain and shortness of breath. He states that last night he developed left-sided chest pressure without any radiation. He states this was associated with shortness of breath at rest but worse with exertion. He states this came on while lying in bed using his CPAP. He also endorses orthopnea and bilateral lower extremity edema. Denies any palpitations or lightheadedness. He has also been experiencing diarrhea chronically but worse in the last few days. He reports at least 5+ episodes of watery diarrhea daily basis. He states he does restrict fluids and salt but has been noncompliant with his medications. He has been working on cutting back on alcohol consumption and has not consumed alcohol in several days. Denies any withdrawal symptoms. He has also been working on cutting back on cigarette smoking. Previously was smoking 2 packs of cigarettes on a daily basis and is now smoking 1/2 pack per day. On arrival, arrived on 3L supplemental O2 per EMS was satting 92% on 2L at home. Given 324mg asa and updraft with improvement in symptoms. Vitals otherwise stable. No significant leukocytosis. Stable normocytic anemia. Renal function and electrolyte levels normal. Lactic acid 1.4. Troponin within normal limits. BNP 946. Ethyl alcohol level undetectable. Negative for COVID-19 and influenza. Chest x-ray shows prominent bronchovascular markings with bronchial wall thickening suggestive of small airway disease but no acute consolidation or pleural effusion. In the ED, given 60 mg IV Lasix and 4 mg morphine as well as 4 mg ondansetron. Hospital course Admitted to telemetry where monitor failed to demonstrate any acute abnormalities. He was aggressively diuresed with IV Lasix and a repeat 2D echo was done. This demonstrated an LVEF of 48%. He was started on doxycycline and ceftriaxone for high suspicion of early infiltrate. Over the next 48 hours he improved dramatically on the day of discharge was aggressively asking for discharge. At this point in time he is medically acceptable for same and will be discharged home to complete a course of doxycycline and a prednisone taper. He to follow up with PCP next available Time Attestation Discharge coordination time: Greater than 30 minutes Quality: Safe Use of Opioids Does Pt have an Active Cancer Diagnosis on the Problem List?: No Quality: Stroke Does the patient have a stroke diagnosis?: No Physical Exam Vital Signs: Vital Signs: Last Vital Signs Temp 97.6 F 07/15/23 11:14 Pulse 78 07/15/23 11:14 Resp 20 07/15/23 11:14 BP 143/70 H 07/15/23 11:14 Pulse Ox 94 07/15/23 11:14 O2 Del Method Room Air 07/15/23 11:14 O2 Flow Rate 4 07/14/23 19:31 Oxygen Flow Rate 2 07/13/23 18:12 BMI result Body Mass Index 44.2 Const: Other: Awake alert no acute distress Resp: Other: Diminished at bases with scattered expiratory wheezes Cardio: Other: No S4; positive S1-S2; no S3 murmurs rubs or gallops GI: Other: Soft nontender nondistended normoactive bowel sounds Extrem: Other: No edema bilaterally DS: Data Data Completed and Pending Completed studies during hospitalization [Text1]: Procedures Assistance with Respiratory Ventilation, Less than 24 Consecutive Hours, Continuous Positive Airway Pressure (01/24/22) Bypass Trachea to Cutaneous with Tracheostomy Device, Percutaneous Approach (05/30/20) Change Tracheostomy Device in Trachea, External Approach (05/30/20) Detoxification Services for Substance Abuse Treatment (03/30/23) Drainage of Left Lower Lung Lobe, Via Natural or Artificial Opening Endoscopic, Diagnostic (05/30/20) Insertion of Endotracheal Airway into Trachea, Via Natural or Artificial Opening (05/30/20) Insertion of Feeding Device into Stomach, Percutaneous Approach (05/30/20) Insertion of Infusion Device into Right Atrium, Percutaneous Approach (05/30/20) Insertion of Infusion Device into Superior Vena Cava, Percutaneous Approach (05/30/20) Performance of Cardiac Output, Single, Manual (05/30/20) Performance of Urinary Filtration, Intermittent, Less than 6 Hours Per Day (05/30/20) Respiratory Ventilation, Greater than 96 Consecutive Hours (05/30/20) Ultrasonography of Superior Vena Cava, Guidance (05/30/20) Labs on day of discharge: Laboratory Results - last 24 hr 07/14/23 07/14/23 07/15/23 16:22 20:10 05:30 WBC 11.4 H RBC 4.30 L Hgb 12.9 L Hct 39.2 L MCV 91.2 MCH 30.0 MCHC 32.9 RDW 14.1 Plt Count 177 MPV 11.2 Immature Gran % (Auto) 1.1 H Neut % (Auto) 77.5 H Lymph % (Auto) 18.1 L [place] % (Auto) 2.9 Eos % (Auto) 0.2 Baso % (Auto) 0.2 Lymph # (Auto) 2.1 [place] # (Auto) 0.3 Eos # (Auto) 0.0 Baso # (Auto) 0.0 Abs Immat Gran (auto) 0.13 H Absolute Neuts (auto) 8.9 H Absolute Nucleated RBC 0.000 Nucleated RBC % (auto) 0.0 Sodium 136 Potassium 4.1 Chloride 96 Carbon Dioxide 29 Anion Gap 15 BUN 23 H Creatinine 1.32 Estim Creat Clear Calc 89.2 Estimated GFR 55 POC Glucose 264 H 213 H Random Glucose 352 H* Calcium 9.2 07/15/23 07/15/23 07:10 11:15 WBC RBC Hgb Hct MCV MCH MCHC RDW Plt Count MPV Immature Gran % (Auto) Neut % (Auto) Lymph % (Auto) [place] % (Auto) Eos % (Auto) Baso % (Auto) Lymph # (Auto) [place] # (Auto) Eos # (Auto) Baso # (Auto) Abs Immat Gran (auto) Absolute Neuts (auto) Absolute Nucleated RBC Nucleated RBC % (auto) Sodium Potassium Chloride Carbon Dioxide Anion Gap BUN Creatinine Estim Creat Clear Calc Estimated GFR POC Glucose 223 H 179 H Random Glucose Calcium Preliminary micro results at discharge 07/14/23 20:57 Sputum Culture - Preliminary Sputum - Expectorated Culture in progress. 07/13/23 18:52 Blood Culture - Preliminary Blood - Venous No growth after 24 hours. 07/13/23 18:40 Blood Culture - Preliminary Blood - Venous No growth after 24 hours. Discharge Plan Discharge Anticipated Discharge Date/Time: 07/15/23 13:42 Patient Disposition: Home, Self-Care Discharge Diagnosis: Acute systolic CHF Referrals: Ortiz Deluca FNP- [Primary Care Provider] - 1 Week Discharge Medications: New metoprolol tartrate 50 mg Tablet 50 mg PO BID Qty: 60 0RF Protocol: Hold for SBP/HR < HOLD for SBP < : 90 HOLD for HR < : 60 doxycycline hyclate 100 mg tablet 100 mg PO BID Qty: 20 0RF prednisone 10 mg tablet See Rx Instructions .Route .COMPLEX Qty: 45 0RF Rx Instructions: 10 mg orally; 5 tabs p.o. daily x3 days; 4 tabs p.o. daily x3 days; 3 tabs daily x3 days; 2 tabs daily x3 days; 1 tab daily x3 days Continued (DME) blood-glucose meter [FreeStyle Lite Meter] Kit See Rx Instructions .ROUTE .MEDSUPPLY Qty: 1 0RF Rx Instructions: check sugar twice a day (DME) lancets [FreeStyle Lancets] 28 gauge misc See Rx Instructions .ROUTE .MEDSUPPLY Qty: 100 2RF Rx Instructions: check sugar twice a day (DME) FreeStyle David 2 [place] Misc See Rx Instructions .Route Qty: 1 0RF Rx Instructions: tid testing (DME) FreeStyle David 2 Sensor Kit See Rx Instructions .Route Qty: 1 3RF Rx Instructions: tid testing furosemide 20 mg tablet 30 mg PO DAILY Qty: 135 1RF lisinopril 2.5 mg tablet 2.5 mg PO DAILY Qty: 90 1RF folic acid 1 mg tablet 1 mg PO DAILY Qty: 90 1RF gabapentin 300 mg capsule 300 mg PO BID 30 Days Qty: 60 4RF rosuvastatin 5 mg tablet 5 mg PO DAILY Qty: 90 1RF omeprazole 20 mg capsule,delayed release(DR/EC) 40 mg PO DAILY@0630 Qty: 180 1RF metformin 850 mg tablet 850 mg PO DAILY Qty: 90 1RF amlodipine 5 mg tablet 5 mg PO DAILY Qty: 90 1RF fluoxetine 40 mg capsule 40 mg PO DAILY Qty: 90 1RF Eliquis 5 mg tablet 5 mg PO BID Qty: 180 1RF metoprolol tartrate 25 mg tablet 50 mg PO BID Qty: 180 1RF fluoxetine 40 mg capsule 40 mg PO DAILY albuterol sulfate 90 mcg/actuation HFA aerosol inhaler 2 puff inhalation QID PRN (Reason: Wheezing) acetaminophen [Tylenol Arthritis Pain] 650 mg tablet extended release 650 mg PO Q12H PRN (Reason: pain) 30 Days Qty: 60 0RF Discharge Orders: Discharge Order (Routine); Ordered 07/15/23 Ordered By: Blayne Pena Diet: Advance to usual diet Activity on Discharge: As tolerated Stand Alone Forms: Patient Portal Discharge page Care Plan Goals: Continue all your medicines as taken prior to the hospital Health Concerns: Doxycycline has been added. One pill twice a day for 10 days as well as a prednisone taper. Complete as ordered Plan of Treatment: Follow-up with PCP next available appointment Assessment: See discharge summary
--- NOTE | 2023-07-15 14:23 | MHC.CM.PN ---
Addendum entered by Elana Diaz 07/15/23 15:15: [facility] REQUEST ENTERED X 2, NO CARS AVAILABLE CM WILL CONTINUE TO REQUEST Original Note: PT CLEARED TO DC HOME TODAY WITH NO SERVICES [facility] TRANSPORT WILL BE ARRANGED ONCE HE RECEIVES HIS NEW MEDS FROM [facility]
--- NOTE | 2023-07-15 15:02 | MHC.RECOVRN ---
Met with pt in 450 after consult placed to Addiction Medicine for alcohol use. Pt had presented to the ED c/o chest tightness and SOB. Upon evaluation, pt admitted for CHF exacerbation. Pt sitting in bed, awake, alert, easily engages in conversation. Pt not on phenobarb protocol. Does not appear to be experiencing withdrawal. Pt reports alcohol use, 3 nips Fireball plus one 12 ounce beer daily. Pt reports this is significant reduction in use, had been drinking 20 nips plus 1 beer daily. Pt reports last alcohol use last week. Pt reports living with and disabled son, drinks socially but is supportive of patient's reduction. Pt reports reducing on my own. Pt is not connected with recovery supports, nor is patient interested in supports or resources. Pt does not have concerns regarding current alcohol use, is proud to have reduced as much as he has. Pt denies questions or concerns for t/w. Discussed with Stella Mims APRN.
[2023-07-15 16:00] VITALS: BP 143/70; PULSE 78; RESP 20; TEMP 36.4; O2SAT 94
== END 2023-07-15 16:10 | disposition home or self-care (01) | DRG 291 ==
LOC: HO.ED 21:08 → HO.EDOVER 21:28 → HO.IMC 07-14 17:20
PROVIDERS: Admitting Provider Physician Assistant; Emergency Provider Emergency Medicine Emergency Medical Services; PCP Nurse Practitioner Family; Visit Provider Hospitalist
DX: I13.0 Hypertensive heart and chronic kidney disease with heart failure and stage 1 through stage 4 chronic kidney disease, or unspecified chronic kidney disease (principal); J18.9 Pneumonia, unspecified organism; J96.21 Acute and chronic respiratory failure with hypoxia; E66.2 Morbid (severe) obesity with alveolar hypoventilation; Z68.41 Body mass index [BMI] 40.0-44.9, adult; I48.19 Other persistent atrial fibrillation; J44.0 Chronic obstructive pulmonary disease with (acute) lower respiratory infection; E51.2 Wernicke's encephalopathy; F10.90 Alcohol use, unspecified, uncomplicated; E78.5 Hyperlipidemia, unspecified; N18.30 Chronic kidney disease, stage 3 unspecified; Z99.81 Dependence on supplemental oxygen; E11.22 Type 2 diabetes mellitus with diabetic chronic kidney disease; K52.9 Noninfective gastroenteritis and colitis, unspecified; F17.210 Nicotine dependence, cigarettes, uncomplicated; Z20.822 Contact with and (suspected) exposure to COVID-19; Z71.6 Tobacco abuse counseling; Z79.01 Long term (current) use of anticoagulants; Z79.84 Long term (current) use of oral hypoglycemic drugs; Z79.899 Other long term (current) drug therapy
CPT/HCPCS: 36415; 71045; 80048; 80053; 80307; 81001; 82947; 83605; 83690; 83880; 84484; 85025; 85610; 85730; 87040; 87070; 87205; 87502; 87635; 90686; 93005; 93306; 94660; 99285; J0696; J1940; J2060; J2270; J2405; J2560; J2920; Q9957

== ENCOUNTER → 2023-07-13 18:18 | Outpatient (BNV) | payer MEDICARE, OTHER, MEDICAID, SELFPAY | PROVIDERS: Admitting Provider Physician Assistant; Emergency Provider Emergency Medicine Emergency Medical Services; PCP Nurse Practitioner Family; Visit Provider Internal Medicine | DX: I48.19 Other persistent atrial fibrillation (principal) | CPT/HCPCS: 93010 ==

== ENCOUNTER 2023-07-13 21:22 | Outpatient (BNV) | payer MEDICARE, OTHER, MEDICAID, SELFPAY | END 2023-07-14 07:00 | PROVIDERS: Admitting Provider Physician Assistant; Emergency Provider Emergency Medicine Emergency Medical Services; PCP Nurse Practitioner Family; Visit Provider Internal Medicine | DX: I35.8 Other nonrheumatic aortic valve disorders (principal) | CPT/HCPCS: 93306 ==

== ENCOUNTER → 2023-07-13 21:22 | Outpatient (BNV) | payer MEDICARE, OTHER, MEDICAID, SELFPAY | PROVIDERS: Admitting Provider Physician Assistant; Emergency Provider Emergency Medicine Emergency Medical Services; PCP Nurse Practitioner Family; Visit Provider Physician Assistant | DX: I50.9 Heart failure, unspecified (principal); J44.1 Chronic obstructive pulmonary disease with (acute) exacerbation; J96.11 Chronic respiratory failure with hypoxia; J18.9 Pneumonia, unspecified organism | CPT/HCPCS: 99223; 99232; 99239 ==

== ENCOUNTER 2023-08-18 14:33 | Outpatient (AMB) | payer MEDICARE, OTHER, MEDICAID, SELFPAY ==
--- NOTE | 2023-08-18 14:37 | A.OFFPC_ITS ---
Vital Signs 08/18/23 14:39 Height 6 ft 1 in Weight 316 lb 6 oz BMI 41.7 BP 116/80 Blood Pressure Location Lt brachial Position Sitting Pulse 99 Pulse Source Pulse Oximeter Pulse Oximetry (%) 95 Oxygen Delivery Method Room Air Intake Visit Reasons: HDF R/S due to error in scheduling Intake Note: Pt is here for HDF from [facility] Allergies No Known Allergies [No Known Allergies*] Allergy (Verified 08/18/23 17:57) Medication List - Last Reconciled 08/18/23 by EVELYN Ballard acetaminophen ER (Tylenol Arthritis Pain) 650 mg PO Q12H PRN 30 days albuterol sulfate 90 mcg/actuation 2 puffs inhalation QID PRN amlodipine 5 mg PO DAILY apixaban (Eliquis) 5 mg PO BID blood-glucose meter (FreeStyle Lite Meter kit) check sugar twice a day fluoxetine 40 mg PO DAILY folic acid 1 mg PO DAILY FreeStyle David 2 [place] (flash glucose scanning reader) tid testing NS FreeStyle David 2 Sensor (flash glucose sensor) tid testing NS furosemide 30 mg (1.5 x 20 mg) PO DAILY gabapentin 300 mg PO BID 30 days lancets (FreeStyle Lancets) check sugar twice a day lisinopril 2.5 mg PO DAILY metformin 850 mg PO DAILY metoprolol tartrate 50 mg See Protocol PO BID omeprazole 40 mg (2 x 20 mg) PO DAILY@0630 rosuvastatin 5 mg PO DAILY Tobacco use date assessed: 08/18/23 Dental Screening Dental Screen Date: 08/18/23 Did you have a dental visit in the last 12 months?: No Did you have a dental problem in the last 6 months where you did not have access to dental care?: No Was dental information given to patient?: No HPI HDF R/S due to error in scheduling HPI Details Pt was seen in the ER on 07/13 c/o chest pain and shortness of breath. Labs showed WBC elevated at 10,900, normocytic anemia with an H&H of 12.7 and 38.2, low platelet count at [id number]. Coags were normal. Glucose was elevated at 140. Lactic acid was normal at 1.4. Troponin was detectable but not elevated at 2.9. BNP was elevated at 946. Alcohol level was below detectable limits. Pt was negative for COVID and flu. He wa satting at 88% on room air. Pt was given IV lasix and morphine. He was also given aspirin and updraft with improvement in symptoms. Chest XR showed showed prominent bronchovascular markings with bronchial wall thickening suggestive of small airway disease but no acute consolidation or pleural effusion. Pt was admitted to telemetry where monitor failed to demonstrate any acute abnormalities. He was aggressively diuresed with IV lasix. Repeat 2D echo demonstrated an LVEF of 48%. Pt was started on doxycycline and ceftriaxone for high suspicion of early infiltrate. Pt's symptoms improved and he was d/c with doxycycline and prednisone. Pt reports doing better today. He states that his breathing is better. Pt reports diarrhea still. He states that this does not occur with every bowel movement. He also reports intermittent mucus in his stool. Will order GI panel. Pt is requesting an STD screen, will order. Pt is still drinking approximately 13 shots of fireball daily. He is still smoking. Reenforced the negative effects of these. Denies fever, chills, sore throat, N/V, shortness of breath, and blood in stool. Pt is a diabetic, on an AIDAN and a statin. Due for A1C and microalbumin, will order. Denies polyuria and polydipsia, does report neuropathy. Pt denies any signs and symptoms of hypoglycemia and does know how to correct it. Pt does not check his blood sugar, reenforced the importance of this. Pt will contact his GI and cardiology providers for follow ups. [facility] Medical History History of cardiac arrest (~05/2020) Nicotine dependence, cigarettes, uncomplicated Personal history of colonic polyps Hypoventilation associated with obesity syndrome Encephalopathy chronic Morbid obesity MJ (obstructive sleep apnea) Effusion, right knee CKD (chronic kidney disease) stage 3, GFR 30-59 ml/min Cirrhosis Diabetes Obesity (BMI 35.0-39.9 without comorbidity) Wernicke encephalopathy Obstructive sleep apnea (adult) (pediatric) Alcohol use disorder, severe, dependence Rib fractures CHF (congestive heart failure) Left atrial enlargement Persistent atrial fibrillation Depression Gout Arthritis Anxiety HTN (hypertension) Surgical History History of tracheostomy (~2019) History of bronchoscopy (~2019) History of colonoscopy (~2021) History of esophagogastroduodenoscopy (EGD) (~2021) History of cardioversion (~2020) S/P percutaneous endoscopic gastrostomy (PEG) tube placement (~2019) Family History Father Lung cancer Mother No problems noted. Maternal Aunt History of heart attack Sister No problems noted. Brother Cancer of kidney Brother No problems noted. Brother No problems noted. Brother No problems noted. Brother No problems noted. Brother No problems noted. Other Substance use disorder Social History Household Members: Spouse Housing: House Do you presently have visiting nurse or other home services: No Unable to assess alcohol history related to: Unknown Alcohol intake: current Alcohol intake frequency: 3 or more drinks per day Alcohol type: beer and hard liquor Comment: 1:1 sitter Patient Tobacco Use Status: Current everyday Tobacco user Tobacco use type: Cigarette Cigarette Packs Per Day: 0.5 Cigarettes Per Day: 10.0 e-Cigarette/Vaping Use: Never Used Second Hand Smoke Exposure: No Advance Directives Date on File: 06/05/20 service: No Current occupational status: unemployed Cognitive needs: No Hearing needs: No Vision needs: No Questionnaire PHQ-9 Over the last 2 weeks, how often have you been bothered by any of the following problems? 16659 - PHQ-9 Billing: Patient declined-do not bill Source: Developed by Drs. Gpoi Zhong, Dina Rojas, Yonas Reddy and colleagues, with an educational juanpablo from [employer]. Thrive Questionnaire Date Thrive assessed: 08/18/23 What is your living situation today?: I choose not to answer this question Within the past 12 months, did the food you bought not last and you didn't have the money to get more?: I choose not to answer this question Within the past 12 months, did you worry whether your food would run out before you got money to buy more?: I choose not to answer this question Do you have trouble paying for medicines?: I choose not to answer this question Do you have trouble getting transportation to medical appointments?: I choose not to answer this question Do you have trouble paying your heating and electricity bill?: I choose not to answer this question Do you have trouble taking care of your child, family member or friend?: I choose not to answer this question Do you have trouble with day-to-day activities such as bathing, preparing meals, shopping, managing finances, etc.?: I choose not to answer this question Are you currently unemployed and looking for a job?: I choose not to answer this question Are you interested in more education?: I choose not to answer this question Currently or been in a relationship where the following occur: I choose not to answer this question THRIVE Score: 0 ALLISON-7 AMB Questionnaire ALLISON-7 Date ALLISON - 7 assessed: 08/18/23 Source: Developed by Drs. Gopi Zhong, Dina Rojas, Yonas Reddy and colleagues, with an educational juanpablo from [employer]. ALLISON-7 Assessment Billing ALLISON-7 Assessment Tool: pt declined-do not bill Review of Systems Const Reports as per HPI Physical exam (Primary Care) Vital Signs: Last Vital Signs Pulse 99 08/18/23 14:39 BP 116/80 08/18/23 14:39 Pulse Ox 95 08/18/23 14:39 Oxygen Delivery Method Room Air 08/18/23 14:39 BMI result Body Mass Index 41.7 Tobacco/Smoking Status: Tobacco use Status Tobacco use date assessed 08/18/23 08/18/23 14:48 Patient Tobacco Use Status Current everyday Tobacco 08/18/23 14:39 Tobacco use type Cigarette 08/18/23 14:39 e-Cigarette/Vaping Use Never Used 08/18/23 14:39 Thrive Assessment: Date of Thrive Assessment Date Thrive assessed 07/14/23 08/18/23 14:39 Currently or been in a relationship where the following occur: I choose not to answer this question Const Other: using a cane General: cooperative Nutritional Appearance: obese morbidly obese Orientation/consciousness: patient oriented x3 Resp Effort & Inspection: normal respiratory effort Auscultation: clear to auscultation bilaterally, no crackles and diminished lung sounds Cardio Rate: regular rate Rhythm: abnormal rhythm irregularly irregular Neuro General: patient oriented x3 Extrem Right lower extremity: no edema Left lower extremity: no edema Psych Appearance: grossly normal Mental Status: mental status grossly normal Speech and movement: Normal speech and movement present Affect: normal affect Attitude: cooperative Thought process: Normal thought process present Thought content: Normal thought content present Insight: Good insight present (Psych) Judgement: Good judgement present (Psych) Assessment and Plan Assessment & Plan (1) Screen for STD (sexually transmitted disease): Code(s): Z11.3 - Encounter for screening for infections with a predominantly sexual mode of transmission Plan: STD testing ordered (2) Diarrhea: Code(s): R19.7 - Diarrhea, unspecified Plan: GI panel ordered, told pt to start taking a probiotic. (3) CHF (congestive heart failure): Code(s): I50.9 - Heart failure, unspecified Qualifiers: Heart failure chronicity: acute on chronic Heart failure type: unspecified Qualified Code(s): I50.9 - Heart failure, unspecified Plan: Labs ordered, pt will contact his clinical material handler (4) Diabetes: Code(s): E11.9 - Type 2 diabetes mellitus without complications Plan: Labs ordered, encouraged pt to check sugars more often (5) Cirrhosis: Code(s): K74.60 - Unspecified cirrhosis of liver Plan: follow up with GI (6) Alcohol use disorder, severe, dependence: Code(s): F10.20 - Alcohol dependence, uncomplicated Plan: pt is not interested in addiction medicine, reporting he can stop himself (7) Hypomagnesemia: Code(s): E83.42 - Hypomagnesemia Plan: lab Plan The patient agreed to the use of a medical office assistant for this encounter. Scribed for BABATUNDE Vaughan by Luna Holley medical office assistant, on 08/18/2023 at 14:50 EST. Orders: Orders HIV Ab/Ag Today Z11.3 - Encounter for screening for infections with a predominantly sexual mode of transmission CDiff Gene PCR Today R19.7 - Diarrhea, unspecified H pylori Ag Stool Today R19.7 - Diarrhea, unspecified Complete Blood Count Auto Diff Today R19.7 - Diarrhea, unspecified Microalbumin, Random (w Creat) Today E11.9 - Type 2 diabetes mellitus without complications Syphilis Screen Today Z11.3 - Encounter for screening for infections with a predominantly sexual mode of transmission CT NG by PCR Today Z11.3 - Encounter for screening for infections with a predominantly sexual mode of transmission Hepatitis A,B,C Profile Today Z11.3 - Encounter for screening for infections with a predominantly sexual mode of transmission GI Panel Today R19.7 - Diarrhea, unspecified Comprehensive [place]. Panel Fast Today R19.7 - Diarrhea, unspecified TSH reflex Free T4 Today R19.7 - Diarrhea, unspecified B Type Natriuretic Peptide Today I50.9 - Heart failure, unspecified Hemoglobin A1c Today E11.9 - Type 2 diabetes mellitus without complications Ammonia Today F10.20 - Alcohol dependence, uncomplicated, K74.60 - Unspecified cirrhosis of liver Magnesium Today E83.42 - Hypomagnesemia Coding Level of Care Code Est Pt Level 4 (33565) Diagnoses Screen for STD (sexually transmitted disease) Z11.3 Diarrhea R19.7 CHF (congestive heart failure) I50.9 Heart failure chronicity: acute on chronic Heart failure type: unspecified Diabetes E11.9 Cirrhosis K74.60 Alcohol use disorder, severe, dependence F10.20 Hypomagnesemia E83.42
[2023-08-18 14:39] VITALS: BP 116/80; PULSE 99; O2SAT 95; BMI 41.7
== END 2023-08-18 16:50 | disposition home or self-care (01) ==
PROVIDERS: PCP Nurse Practitioner Family; Visit Provider Nurse Practitioner Family
DX: E11.9 Type 2 diabetes mellitus without complications (principal); I50.9 Heart failure, unspecified; K74.60 Unspecified cirrhosis of liver; F10.20 Alcohol dependence, uncomplicated; Z11.3 Encounter for screening for infections with a predominantly sexual mode of transmission; R19.7 Diarrhea, unspecified; E83.42 Hypomagnesemia
CPT/HCPCS: 99214

== ENCOUNTER 2023-09-06 05:59 | Emergency (ER) | payer MEDICARE, OTHER, MEDICAID, SELFPAY ==
--- NOTE | 2023-09-06 | ECG_ITS ---
Test Reason : CHEST PAIN Blood Pressure : / mmHG Vent. Rate : 097 BPM Atrial Rate : 000 BPM P-R Int : 000 ms QRS Dur : 088 ms QT Int : 374 ms P-R-T Axes : 000 083 047 degrees QTc Int : 474 ms Poor data quality Atrial fibrillation Abnormal ECG When compared with ECG of 13-JUL-2023 18:27, No significant change was found Referred By: Generic ED Physician Electronically Signed By:OLGA GRANDA MD
--- NOTE | ~2023-09-06 | XR_ITS ---
EXAMINATION: XR CHEST CLINICAL INFORMATION: Chest pain COMPARISON: None available. TECHNIQUE: Frontal view of the chest was obtained. FINDINGS: vascularity. LUNGS: Persistent asymmetric hazy alveolar density is seen in lateral left lung base effacing the left cardiac border. Mild peribronchial thickening is seen in medial right lower lung. No pneumothorax is seen. BONES: Bony skeleton is intact. XR/XR chest 1V IMPRESSION: 1. Interval decrease in medial right lower lobe peribronchial thickening. 2. Unchanged left lateral lung base asymmetric density, compatible with pericardial fat pad or focal atelectasis.
--- NOTE | ~2023-09-06 | XR_ITS ---
EXAMINATION: XR HAND/WRIST, RIGHT CLINICAL INFORMATION: Right hand and wrist injury and pain COMPARISON: None TECHNIQUE: PA, lateral, oblique, and scaphoid views of the right hand and wrist. FINDINGS: BONES: Bony structures are intact. Marginal osteophytosis is seen at the right from proximal and distal phalanges. There is no focal bone destruction or periosteal reaction seen. Evaluation is limited by inability of the patient to fully extend the fingers due to pain. JOINTS: Alignment of joints is normal. SOFT TISSUE: Soft tissue is normal. No radiopaque foreign body or abnormal air collection is seen. XR/XR hand wrist RT IMPRESSION: 1. Normal x-rays of right hand and right wrist. No fracture or dislocation or signs of osteomyelitis are found. 2. 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
--- NOTE | ~2023-09-06 | XR_ITS ---
EXAMINATION: XR ELBOW, RIGHT CLINICAL INFORMATION: Pain. Fall COMPARISON: X-ray of the right hand and wrist same date TECHNIQUE: AP, lateral, and oblique views of the right elbow. FINDINGS: Small joint effusion. Deformity and impaction at the level of the radial head noted of uncertain chronicity. Given the presence of what appears to be a small joint effusion and mechanism of injury, radial head fracture needs to be considered. Proximal ulna is intact. Alignment within the elbow joint intact. XR/XR elbow RT min 3V IMPRESSION: Suspect radial head fracture.
[2023-09-06 06:09] VITALS: BP 112/72; PULSE 94; O2SAT 96
[2023-09-06 06:16] VITALS: BP 110/61; PULSE 78; RESP 17; TEMP 37.1; O2SAT 92; BMI 41.9
--- NOTE | 2023-09-06 06:40 | MHC.EDTECH ---
Patient was biba from home ,ekg taken and was read by Provider ,Patient was change into hospital gown and was hooked up to awake overnight monitor ,Vitals taken ,RN Martina in room triaging Patient and getting labs ,Call dietrich within Pt reach .
--- NOTE | 2023-09-06 06:41 | ED_ITS ---
HPI - General Adult General Chief complaint: General Medical Stated complaint: right hand pain Time Seen by Provider: 09/06/23 06:40 Source: patient Mode of arrival: ambulatory Limitations: no limitations History of Present Illness HPI narrative: Patient is a 63 year old assigned male at with a history of DM, CKD, Atrial fib, Alcohol abuse, CHF, and HTN presenting to the emergency department today with intermittent chest pain, right hand/wrist/elbow pain. Patient states that over the last month he has had intermittent chest pain and over the last few days he has been having pain in his right upper extremity. Patient denies any dizziness, lightheadedness, abdominal pain, nausea, vomiting, fever, chills, blurry vision, double vision, loss of vision, back pain, night sweats, pain with urination, increased urinary frequency, increased urinary urgency, blood in his urine or stool, syncope or a near syncopal episode, recent trauma or falls, bowel incontinence, bladder incontinence, bowel retention, bladder retention, or any other complaints at this time. MD complaint: Chest pain Onset (ago): month(s) (1) Location: chest Radiation: non-radiation Severity: mild Severity scale (1-10): 2 Pain Consistency: intermittent Relieving factors: none Associated symptoms: chest pain Treatments prior to arrival: NSAID Related Data Home Medications Medication Instructions Recorded Confirmed albuterol sulfate 90 mcg/actuation 2 puff inhalation QID PRN Wheezing 07/13/23 08/18/23 aerosol inhaler fluoxetine 40 mg capsule 40 mg PO DAILY 07/13/23 08/18/23 Previous Rx's Medication Instructions Recorded blood-glucose meter (FreeStyle #1 ea 09/03/20 Lite Meter kit) lancets 28 gauge (FreeStyle #100 ea 02/02/21 Lancets) FreeStyle David 2 [place] (flash #1 ea 07/03/22 glucose scanning reader) FreeStyle David 2 Sensor (flash #1 ea 07/03/22 glucose sensor) acetaminophen 650 mg 650 mg PO Q12H PRN pain 30 days 09/29/22 tablet,extended release (Tylenol #60 tabs Arthritis Pain) furosemide 20 mg tablet 30 mg (1.5 x 20 mg) PO DAILY #135 10/01/22 tabs lisinopril 2.5 mg tablet 2.5 mg PO DAILY #90 tabs 11/29/22 folic acid 1 mg tablet 1 mg PO DAILY #90 tabs 12/02/22 gabapentin 300 mg capsule 300 mg PO BID 30 days #60 caps 02/07/23 rosuvastatin 5 mg tablet 5 mg PO DAILY #90 tabs 02/07/23 omeprazole 20 mg capsule,delayed 40 mg (2 x 20 mg) PO DAILY@0630 02/22/23 release #180 caps metformin 850 mg tablet 850 mg PO DAILY #90 tabs 05/09/23 amlodipine 5 mg tablet 5 mg PO DAILY #90 tabs 06/17/23 apixaban 5 mg tablet (Eliquis) 5 mg PO BID #180 tabs 06/17/23 metoprolol tartrate 50 mg tablet 50 mg PO BID #60 tabs 07/15/23 Allergies Allergy/AdvReac Type Severity Reaction Status Date / Time No Known Allergies Allergy Verified 09/06/23 06:16 [No Known Allergies*] Review of Systems 2 Constitutional: Constitutional: Reports no additional constitutional complaints, Denies chills, Denies fever(s) and Denies night sweats Eyes: Eyes: Reports no additional eye complaints, Denies blurry vision, Denies change in vision, Denies diplopia, Denies eye discharge, Denies loss of vision and Denies eye pain ENT: Denies dizziness Cardiovascular: Cardiovascular: Reports no additional cardiovascular complaints, Reports chest pain (intermittently), Denies lightheadedness and Denies Loss of Consciousness Gastrointestinal: Gastrointestinal: Reports no additional gastrointestinal complaints, Denies abdominal pain, Denies melena, Denies hematochezia, Denies change in bowel habits and Denies change in stool character Genitourinary: Genitourinary: Reports no additional male genitourinary complaints, Denies hematuria, Denies oliguria, Denies difficulty urinating, Denies dysuria, Denies urinary frequency, Denies urinary hesitancy, Denies urinary incontinence and Denies urinary urgency Musculoskeletal: Musculoskeletal: Reports no additional musculoskeletal complaints, Denies numbness and Denies tingling Comments: right hand, wrist, and elbow pain Neurologic: Denies dizziness, Denies loss of vision, Denies numbness and Denies tingling Psychiatric: Psychiatric: Reports no additional psychiatric complaints Endocrine: Endocrine: Reports no additional endocrine complaints Hematologic/Lymphatic: Hematologic/Lymphatic: Reports no additional hematologic/lymphatic complaints Allergic/Immunologic: Allergic/Immunologic: Reports no additional allergic/immunologic complaints [facility] Past Medical History Attestation statement: The following information was validated with the patient. Source: old records reviewed and nursing notes reviewed Medical History Screen for STD (sexually transmitted disease) Left ankle swelling Hypomagnesemia Diarrhea Acute UTI Physical exam Nocturia Microhematuria Elevated serum creatinine Morbid obesity Increased ammonia level Weakness of both lower extremities Alcohol use disorder, severe, dependence Dermatitis, unspecified History of cardiac arrest (~05/2020) Nicotine dependence, cigarettes, uncomplicated Personal history of colonic polyps Hypoventilation associated with obesity syndrome Encephalopathy chronic MJ (obstructive sleep apnea) Effusion, right knee CKD (chronic kidney disease) stage 3, GFR 30-59 ml/min Cirrhosis Diabetes Obesity (BMI 35.0-39.9 without comorbidity) Wernicke encephalopathy Obstructive sleep apnea (adult) (pediatric) Rib fractures CHF (congestive heart failure) Left atrial enlargement Persistent atrial fibrillation Depression Gout Arthritis Anxiety HTN (hypertension) Surgical History History of tracheostomy (~2019) History of bronchoscopy (~2019) History of colonoscopy (~2021) History of esophagogastroduodenoscopy (EGD) (~2021) History of cardioversion (~2020) S/P percutaneous endoscopic gastrostomy (PEG) tube placement (~2019) Family History Family History Father Lung cancer Mother No problems noted. Maternal Aunt History of heart attack Sister No problems noted. Brother Cancer of kidney Brother No problems noted. Brother No problems noted. Brother No problems noted. Brother No problems noted. Brother No problems noted. Other Substance use disorder Social History Social History Household Members: Spouse Housing: House Do you presently have visiting nurse or other home services: No Unable to assess alcohol history related to: Unknown Alcohol intake: current Alcohol intake frequency: 3 or more drinks per day Alcohol type: beer and hard liquor Comment: 1:1 sitter Patient Tobacco Use Status: Current everyday Tobacco user Tobacco use type: Cigarette Cigarette Packs Per Day: 0.5 Cigarettes Per Day: 10.0 Smoked in Last 30 Days: Yes e-Cigarette/Vaping Use: Never Used Second Hand Smoke Exposure: No Use of substances other than those prescribed or required for medical reasons: No Advance Directives: Yes Advance Directives on File: Yes Advance Directives Date on File: 06/05/20 service: No Current occupational status: unemployed Cognitive needs: No Hearing needs: No Vision needs: No Physical Exam ED Vital Signs: Vital Signs - 24 hr 09/06/23 06:16 09/06/23 08:51 09/06/23 10:50 Temperature 98.8 F 98.1 F 98.1 F Pulse Rate 78 85 95 Respiratory Rate 17 17 17 Blood Pressure 110/61 100/56 L 100/53 L Pulse Oximetry 92 93 92 Oxygen Delivery Method Room Air Room Air Room Air BMI result Body Mass Index 41.9 Const General: cooperative, no acute distress, alert and awake Nutritional Appearance: obese Orientation/consciousness: patient oriented x3 Limitations: no limitations HENMT Head: Yes normal to inspection Ears: hearing grossly normal bilaterally General nose exam: Normal external nose present Face and sinus: Yes normal facial exam Mouth: Normal oral and palatal mucosa present Throat: Yes posterior oropharynx normal Eyes General: appearance normal, both eyes and all related structures Periorbital: periorbital findings normal Eyelids: Yes eyelids normal Conjunctivae: conjunctivae normal Pupils: Equal, round and reactive pupils present EOM: EOMs intact bilaterally Neck Neck: Yes normal visual inspection Chest Chest palpation & inspection: normal inspection of the chest Resp Effort & Inspection: normal respiratory effort and able to speak in complete sentences Auscultation: clear to auscultation bilaterally Cardio Jugular venous distension: no JVD Palpation: normal PMI Rate: tachycardic Rhythm: regular rhythm Peripheral pulses: Peripheral pulses 2+ throughout GI Inspection: Yes normal to inspection Neuro General: patient oriented x3 Cranial nerves: Yes Equal, round and reactive pupils present Cognition (Neuro): normal cognition Motor exam (neuro): 5/5 motor strength present throughout Sensory Exam: Normal double simultaneous stimulation for sensation Coordination: [id number] test normal Extrem Other: patient has pain with ROM of the right hand, wrist, and elbow General: Yes normal to inspection, Yes full ROM and Yes capillary refill normal Psych Appearance: grossly normal Mental Status: mental status grossly normal Affect: normal affect Attitude: cooperative Thought process: Normal thought process present Thought content: Normal thought content present Insight: Good insight present (Psych) Medications Administered Discontinued Medications Generic Name Dose Route Start Last Admin Trade Name Marleny PRN Reason Stop Dose Admin Magnesium Sulfate 2 gm in 50 mls @ 25 mls/hr 09/06/23 07:06 09/06/23 07:19 Magnesium Sulfate/H2o IV 09/06/23 09:05 25 mls/hr ONCE ONE Administration Procedures Orthopedic Splinting/Casting Injury #1: Side: right Upper Extremity Injury Location: elbow Upper Extremity Immobilizer: sling/shoulder immobilizer Smoking Cessation Time Spent Discussing Smoking Cessation w/Patient (min): 5 Patient Acknowledges Need for Cessation: Yes Additional Comments: Spent 5 minutes discussing smoking cessation including coping mechanisms and tactics. Medical Decision Making Medical Decision Making MDM Narrative: Patient is a 63 year old assigned male at with a history of DM, CKD, Atrial fib, Alcohol abuse, CHF, and HTN presenting to the emergency department today with intermittent chest pain and right upper extremity pain. Patient's physical exam was unremarkable. Patient's blood work showed an elevated BNP of 523 and a decreased magnesium of 1.2 - these findings are chronic for the patient. Additionally, patient's uric acid is 11.4. The rest of the patient's labs are unremarkable. Patient's EKG was unremarkable. Patient's chest, right wrist and right hand x-rays showed no acute process. Patient's right elbow showed a suspected right radial head fracture. I discussed the need for a splint vs. a sling for his right radial head fracture. Patient stated he'd prefer a sling. Patient's magnesium was replaced. Patient's clinical presentation is most consistent with atypical chest pain and a gout flare. Given the patient is on anticoagulant medication, will not prescribe NSAIDs for gout flare. I explained my physical exam findings as well as all test results to the patient. I answered all questions asked by the patient. I stressed the importance of the patient taking his medication as prescribed. I stressed the importance of the patient following up with his primary care provider and an orthopedic provider. I stressed the importance of the patient returning to the emergency department immediately if his symptoms were to worsen or if he were to develop any dizziness, shortness of breath, difficulty breathing, chest pain, blurry vision, loss of vision, nausea, vomiting, abdominal pain, fever, chills, back pain, or any other complaints. Patient verbalized agreement and understanding with this treatment plan and discharge. Differential Diagnosis Differential Diagnoses: The differential diagnosis associated with the presentation includes Hypomagnesemia Atypical chest pain NSTEMI STEMI Gout flare Admission/Observation Consideration of admission/observation: Escalation of care including admission/observation considered Patient would have been admitted to the hospital had his work up had any findings where hospital admission was appropriate and his clinical presentation warranted hospital admission. Lab Data [facility] Lab Attestation statement: I reviewed the patient's lab results. My interpretation of these results are in the [facility] Rationale portion of this note. 09/06/23 06:37 09/06/23 06:37 Labs: Lab Results 09/06/23 09/06/23 09/06/23 Range/Units 06:37 07:09 09:05 WBC 11.5 H (4.8-10.8) X10*3/uL RBC 4.51 L (4.60-5.80) X10*6/uL Hgb 13.9 L (14.0-18.0) g/dl Hct 41.4 L (42.0-52.0) % MCV 91.8 (80.0-98.0) fL MCH 30.8 (27.0-33.0) pg MCHC 33.6 (31.0-36.0) g/dl RDW 15.7 (11.0-16.0) % Plt Count 254 D (160-400) X10*3/uL MPV 10.7 (9.4-12.4) fL Immature Gran % (Auto) 0.5 H (0.0-0.4) % Neut % (Auto) 70.5 (45-73) % Lymph % (Auto) 16.7 L (20-40) % Isabella % (Auto) 10.1 (2-11) % Eos % (Auto) 1.5 (0-4) % Baso % (Auto) 0.7 (0-2) % Lymph # (Auto) 1.9 (1.2-4.9) X10*3/uL Isabella # (Auto) 1.2 (0.1-1.2) X10*3/uL Eos # (Auto) 0.2 (0.0-0.4) X10*3/uL Baso # (Auto) 0.1 (0.0-0.2) X10*3/uL Abs Immat Gran (auto) 0.06 H (0.00-0.03) X10*3/uL Absolute Neuts (auto) 8.1 (2.0-8.3) x10*3/uL Absolute Nucleated RBC 0.000 (0.0-0.012) X10*3/uL Nucleated RBC % (auto) 0.0 (0.0-0.2) /100WBC PT 18.7 H (11.1-13.3) SEC INR 1.5 H (0.9-1.1) Sodium 143 (135-145) mmol/L Potassium 3.4 (3.3-5.1) mmol/L Chloride 106 (96-108) mmol/L Carbon Dioxide 26 (22-29) mmol/L Anion Gap 14 (12-20) BUN 12 (9-16) mg/dL Creatinine 1.15 (0.5-1.4) mg/dL Estim Creat Clear Calc 99.3 Estimated GFR > 60 Random Glucose 136 H (60-115) mg/dL Uric Acid 11.4 H (3.4-7.0) mg/dL Calcium 9.3 (8.4-10.2) mg/dL Magnesium 1.2 L* (1.6-2.6) mg/dL Total Bilirubin 0.5 (0.0-1.0) mg/dL AST 18 (5-37) U/L ALT 8 (0-40) U/L Alkaline Phosphatase 129 H (39-117) U/L Troponin I High Sens < 2.7 < 2.7 (<3.5-35.0) ng/L B-Natriuretic Peptide 523 H (<100) pg/mL Total Protein 7.6 (6.5-8.0) g/dL Albumin 3.5 (3.5-5.0) g/dL Lipase 28 (8-78) U/L Ethyl Alcohol 70 mg/dL Influenza Type A (PCR) NEGATIVE (Negative) Influenza Type B (PCR) NEGATIVE (Negative) RSV RNA Qual (PCR) NEGATIVE (Negative) SARS-CoV-2 RNA (RT-PCR) NEGATIVE (Negative) Independent Interpretation I performed an independent interpretation of an: EKG and Plain X-Ray Interpretation: My interpretation is in agreement with the radiologist's impression of these imaging studies. - EXAMINATION: XR HAND/WRIST, RIGHT CLINICAL INFORMATION: Right hand and wrist injury and pain COMPARISON: None TECHNIQUE: PA, lateral, oblique, and scaphoid views of the right hand and wrist. FINDINGS: BONES: Bony structures are intact. Marginal osteophytosis is seen at the right from proximal and distal phalanges. There is no focal bone destruction or periosteal reaction seen. Evaluation is limited by inability of the patient to fully extend the fingers due to pain. JOINTS: Alignment of joints is normal. SOFT TISSUE: Soft tissue is normal. No radiopaque foreign body or abnormal air collection is seen. XR/XR hand wrist RT IMPRESSION: 1. Normal x-rays of right hand and right wrist. No fracture or dislocation or signs of osteomyelitis are found. 2. 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 Dictated By: Tomy Ayala Signed By: Electronically signed by Tomy Ayala 09/06/23 0757 - EXAMINATION: XR CHEST CLINICAL INFORMATION: Chest pain COMPARISON: None available. TECHNIQUE: Frontal view of the chest was obtained. FINDINGS: vascularity. LUNGS: Persistent asymmetric hazy alveolar density is seen in lateral left lung base effacing the left cardiac border. Mild peribronchial thickening is seen in medial right lower lung. No pneumothorax is seen. BONES: Bony skeleton is intact. XR/XR chest 1V IMPRESSION: 1. Interval decrease in medial right lower lobe peribronchial thickening. 2. Unchanged left lateral lung base asymmetric density, compatible with pericardial fat pad or focal atelectasis. Dictated By: Tomy Ayala Signed By: Electronically signed by Tomy Ayala 09/06/23 0743 - EXAMINATION: XR ELBOW, RIGHT CLINICAL INFORMATION: Pain. Fall COMPARISON: X-ray of the right hand and wrist same date TECHNIQUE: AP, lateral, and oblique views of the right elbow. FINDINGS: Small joint effusion. Deformity and impaction at the level of the radial head noted of uncertain chronicity. Given the presence of what appears to be a small joint effusion and mechanism of injury, radial head fracture needs to be considered. Proximal ulna is intact. Alignment within the elbow joint intact. XR/XR elbow RT min 3V IMPRESSION: Suspect radial head fracture. Dictated By: Kuldeep Carrizales MD Signed By: Electronically signed by Kuldeep Carrizales MD 09/06/23 0929 Vent. Rate: 097 BPM Atrial Rate: 000 BPM P-R Int: 000 ms QRS Dur: 088 ms QT Int: 374 ms P-R-T Axes: 000 083 047 degrees QTc Int: 474 ms Atrial fibrillation Abnormal ECG When compared with ECG of 13-JUL-2023 18:27, No significant change was found DD/ 0614 Radiology Impression Discussion of test interpretation with radiology: I have reviewed the radiologist's reading. Independent Historian Clinical information obtained from an independent historian. History obtained from or confirmed by: EMS (EMS provided additional history and confirmed the history provided by the patient.) Critical Care Time Critical Care Time Critical Care Time: Yes Total Critical Care Time: 55 Attestation: I spent 55 minutes of Critical Care Time with this patient. This does not include time spent on separately reported billable procedures. Discharge Plan Discharge Clinical Impression: Closed fracture of radial head, Atypical chest pain Patient Disposition: Home, Self-Care Instructions: Chest Pain (DC), Elbow Fracture (ED) Additional Instructions: Follow up with your primary care provider and an orthopedic provider (for your radial head fracture). Return to the emergency department immediately if your symptoms worsen or if you develop any dizziness, shortness of breath, difficulty breathing, chest pain, blurry vision, loss of vision, nausea, vomiting, abdominal pain, fever, chills, back pain, or any other complaints. Prescriptions: No Action (DME) blood-glucose meter [FreeStyle Lite Meter] Kit See Rx Instructions .ROUTE .MEDSUPPLY Qty: 1 0RF Rx Instructions: check sugar twice a day (DME) lancets [FreeStyle Lancets] 28 gauge misc See Rx Instructions .ROUTE .MEDSUPPLY Qty: 100 2RF Rx Instructions: check sugar twice a day (DME) FreeStyle David 2 [place] Misc See Rx Instructions .Route Qty: 1 0RF Rx Instructions: tid testing (DME) FreeStyle David 2 Sensor Kit See Rx Instructions .Route Qty: 1 3RF Rx Instructions: tid testing furosemide 20 mg tablet 30 mg PO DAILY Qty: 135 1RF lisinopril 2.5 mg tablet 2.5 mg PO DAILY Qty: 90 1RF folic acid 1 mg tablet 1 mg PO DAILY Qty: 90 1RF gabapentin 300 mg capsule 300 mg PO BID 30 Days Qty: 60 4RF rosuvastatin 5 mg tablet 5 mg PO DAILY Qty: 90 1RF omeprazole 20 mg capsule,delayed release(DR/EC) 40 mg PO DAILY@0630 Qty: 180 1RF metformin 850 mg tablet 850 mg PO DAILY Qty: 90 1RF amlodipine 5 mg tablet 5 mg PO DAILY Qty: 90 1RF Eliquis 5 mg tablet 5 mg PO BID Qty: 180 1RF fluoxetine 40 mg capsule 40 mg PO DAILY albuterol sulfate 90 mcg/actuation HFA aerosol inhaler 2 puff inhalation QID PRN (Reason: Wheezing) metoprolol tartrate 50 mg Tablet 50 mg PO BID Qty: 60 0RF Protocol: Hold for SBP/HR < HOLD for SBP < : 90 HOLD for HR < : 60 acetaminophen [Tylenol Arthritis Pain] 650 mg tablet extended release 650 mg PO Q12H PRN (Reason: pain) 30 Days Qty: 60 0RF Referrals: [facility] [Provider Group] (Call to establish and follow up with an orthopedic provider.) Ortiz Deluca, HYDRATOR-BC [Primary Care Provider] - Interventions: ED Discharge Assessment Last Done: 09/06/23 10:51 Discharge Date/Time: 09/06/23 11:05 Print Language: Maltese
[2023-09-06 06:46] LABS: Basophils Absolute Auto 0.1 X10*3/uL (0.0-0.2); Basophils Percent Auto 0.7 % (0-2); Eosinophils Absolute Auto 0.2 X10*3/uL (0.0-0.4); Eosinophils Percent Auto 1.5 % (0-4); Hematocrit 41.4 % (42.0-52.0); Hemoglobin 13.9 g/dl (14.0-18.0); Imm Gran Abs Auto 0.06 X10*3/uL (0.00-0.03); Imm Gran Pct Auto 0.5 % (0.0-0.4); Lymphocytes Absolute Auto 1.9 X10*3/uL (1.2-4.9); Lymphocytes Percent Auto 16.7 % (20-40); MANUAL DIFF FLAG NO; Mean Corpuscular HGB Conc 33.6 g/dl (31.0-36.0); Mean Corpuscular Hemoglobin 30.8 pg (27.0-33.0); Mean Corpuscular Volume 91.8 fL (80.0-98.0); Mean Platelet Volume 10.7 fL (9.4-12.4); Monocytes Absolute Auto 1.2 X10*3/uL (0.1-1.2); Monocytes Percent Auto 10.1 % (2-11); Neutrophils Absolute Auto 8.1 x10*3/uL (2.0-8.3); Neutrophils Percent Auto 70.5 % (45-73); Platelet Count 254 X10*3/uL (160-400); Red Blood Count 4.51 X10*6/uL (4.60-5.80); Red Cell Distribution Width 15.7 % (11.0-16.0); White Blood Count 11.5 X10*3/uL (4.8-10.8)
[2023-09-06 06:47] LABS: INTERNATIONAL NORM RATIO 1.5 (0.9-1.1); Prothrombin Time 18.7 SEC (11.1-13.3)
[2023-09-06 07:02] LABS: Troponin-I High Sensitivity < 2.7 ng/L (<3.5-35.0)
[2023-09-06 07:06] LABS: Alanine Aminotransferase 8 U/L (0-40); Albumin Level 3.5 g/dL (3.5-5.0); Alkaline Phosphatase 129 U/L (39-117); Anion Gap 14 (12-20); Aspartate Amino Transferase 18 U/L (5-37); Bilirubin Total 0.5 mg/dL (0.0-1.0); Blood Urea Nitrogen 12 mg/dL (9-16); Calcium 9.3 mg/dL (8.4-10.2); Carbon Dioxide 26 mmol/L (22-29); Chloride 106 mmol/L (96-108); Creatinine Clr Calc Pharmacy 99.3; Estimated Glomerular Filt Rate > 60; Ethanol 70 mg/dL; Glucose Random 136 mg/dL (60-115); Lipase 28 U/L (8-78); Magnesium 1.2 mg/dL (1.6-2.6); Potassium 3.4 mmol/L (3.3-5.1); Sodium 143 mmol/L (135-145); Total Protein 7.6 g/dL (6.5-8.0); Uric Acid 11.4 mg/dL (3.4-7.0)
[2023-09-06 07:10] LABS: B Type Natriuretic Peptide 523 pg/mL (<100)
[2023-09-06] MEDS: Magnesium Sulfate/H2O 2 GM/50 ML PIGGYBACK IV (07:19)
[2023-09-06 08:18] LABS: Influenza A PCR NEGATIVE (Negative); Influenza B PCR NEGATIVE (Negative); Resp Syncy Virus RNA Qual PCR NEGATIVE (Negative); SARS COV2 PCR INHOUSE NEGATIVE (Negative)
[2023-09-06 08:51] VITALS: BP 100/56; PULSE 85; RESP 17; TEMP 36.7; O2SAT 93
[2023-09-06 09:33] LABS: Troponin-I High Sensitivity < 2.7 ng/L (<3.5-35.0)
[2023-09-06 10:50] VITALS: BP 100/53; PULSE 95; RESP 17; TEMP 36.7; O2SAT 92
== END 2023-09-06 11:05 | disposition home or self-care (01) ==
PROVIDERS: Physician Assistant Medical; Student in an Organized Health Care Education/Training Program; Emergency Provider Emergency Medicine Emergency Medical Services; PCP Nurse Practitioner Family
DX: S52.121A Displaced fracture of head of right radius, initial encounter for closed fracture (principal); R07.89 Other chest pain; R06.02 Shortness of breath; M79.601 Pain in right arm; X58.XXXA Exposure to other specified factors, initial encounter; Y93.9 Activity, unspecified; Y92.9 Unspecified place or not applicable; Y99.8 Other external cause status; Z11.52 Encounter for screening for COVID-19; Z20.822 Contact with and (suspected) exposure to COVID-19; Z79.899 Other long term (current) drug therapy
CPT/HCPCS: 0241U; 29105; 36415; 71045; 73080; 73110; 73130; 80053; 80307; 83690; 83735; 83880; 84484; 84550; 85025; 85610; 93005; 96374; 99284; J3475

== ENCOUNTER → 2023-09-06 06:14 | Outpatient (BNV) | payer MEDICARE, OTHER, MEDICAID, SELFPAY | PROVIDERS: Emergency Provider Emergency Medicine Emergency Medical Services; PCP Nurse Practitioner Family; Visit Provider Internal Medicine Cardiovascular Disease | DX: R07.9 Chest pain, unspecified (principal) | CPT/HCPCS: 93010 ==

== ENCOUNTER 2023-09-12 16:50 | Outpatient (REF) | payer MEDICARE, OTHER, MEDICAID, SELFPAY | END 2023-09-12 16:51 | disposition home or self-care (01) | LOC: HO.HOSX 16:50 | PROVIDERS: Visit Provider Physician Assistant | DX: Z13.89 Encounter for screening for other disorder (principal) ==

== ENCOUNTER 2023-11-21 11:49 | Inpatient (IN) | payer MEDICARE, OTHER, MEDICAID, SELFPAY ==
[2023-11-21] VITALS (8 sets, daily range): BP systolic 108–148; BP diastolic 56–80; PULSE 79–99; RESP 15–19; TEMP 36.3–37.1; O2SAT 85–94; BMI 45.7
--- NOTE | ~2023-11-21 | XR_ITS ---
EXAMINATION: XR CHEST CLINICAL INFORMATION: Question aspiration COMPARISON: 11/22/2023 TECHNIQUE: Frontal view of the chest was obtained. FINDINGS: Lung volumes are symmetric. No focal consolidation is seen. There is mild prominence of the central vasculature without overt edema. No evidence of pneumothorax or significant pleural effusion. Cardiac silhouette remains enlarged. No acute osseous findings are seen. XR/XR chest 1V IMPRESSION: Mild prominence of the central vasculature without overt edema. No focal consolidation.
--- NOTE | ~2023-11-21 | XR_ITS ---
EXAMINATION: XR KNEE, RIGHT CLINICAL INFORMATION: Pain and swelling COMPARISON: Previous x-ray from 2021 TECHNIQUE: Four views of the right knee. FINDINGS: Bone alignment is normal. No acute fracture or dislocation. Old healed proximal fibular shaft fracture. Small osteophytes at the patellofemoral joint. Joint spaces otherwise normal. Large joint effusion. XR/XR knee RT 2V IMPRESSION: Large joint effusion. Old healed fibular shaft fracture.
--- NOTE | ~2023-11-21 | CT_ITS ---
EXAM: CT scan of the head and cervical spine. INDICATION: Reason for Exam Fall on anticoagulation TECHNIQUE: A noncontrast CT scan was performed from the skull base to the vertex. A noncontrast CT scan of the cervical spine was performed from the base of the skull through T1 at 2.5 mm and 1.25 mm collimation. Coronal and sagittal reformats were obtained at the acquisition workstation. This CT examination was performed using dose optimization techniques as appropriate, variously including the following: *Automated exposure control *Adjustment of mA and/or kV according to patient size (this includes techniques or standardized protocols for targeted exams where dose is matched to indication/reason for exam; i.e. extremities or head) *Use of iterative reconstruction technique DLP: mGy-cm COMPARISON: None FINDINGS: Head: There is no evidence of acute intracranial hemorrhage or territorial infarction. Mir-white matter differentiation is preserved. No abnormal mass effect or midline shift. No extra-axial fluid collections. No abnormal attenuation is demonstrated within the brain parenchyma. Scattered periventricular and deep white matter hypodensities consistent with microangiopathy. The ventricles and sulcal spaces are proportional without hydrocephalus. Proportional prominence of the ventricles and sulcal spaces. No acute osseous or soft tissue abnormalities. The mastoid air cells and visualized portions of the paranasal sinuses are well aerated. Cervical Spine: The atlantooccipital and atlantoaxial articulations remain well aligned. Straightening of the normal cervical lordosis. Otherwise, there is anatomic alignment of the vertebral bodies and posterior elements. No evidence of acute fracture or subluxation. The vertebral body heights and disc spaces are notable for moderate displacement particularly at C4-C5-C6 C5-C6. No subluxation. Marginal osteophytes without resulting high-grade spinal stenosis.. There is no prevertebral soft tissue swelling. The thyroid gland and remaining cervical soft tissues are normal in appearance. The lung apices demonstrate no abnormalities. CT/CT cervical spine wo IV con IMPRESSION: No acute intracranial pathology. No acute fracture subluxation cervical spine.
--- NOTE | ~2023-11-21 | XR_ITS ---
EXAMINATION: XR CHEST CLINICAL INFORMATION: Low oxygen saturation COMPARISON: 11/21/2023 TECHNIQUE: Frontal view of the chest was obtained. FINDINGS: Lung volumes are symmetric. No focal consolidation is seen. No evidence of pneumothorax, significant pleural effusion, or overt pulmonary edema. Cardiac silhouette remains enlarged. No acute osseous findings are seen. XR/XR chest 1V IMPRESSION: No acute pulmonary findings. Cardiac silhouette remains enlarged.
--- NOTE | ~2023-11-21 | XR_ITS ---
EXAMINATION: XR chest 1V CLINICAL INFORMATION: Shortness of breath COMPARISON: 09/06/2023 TECHNIQUE: Single portable frontal view. Tubes and lines: None Lungs and pleura: Opacity projecting over the right upper lobe might be a summation of rib shadows and prominent right first costochondral junction. Linear opacity left lung base probably mild infiltrate or atelectasis. Heart and mediastinum: The mediastinum is within normal limits.. Bones/soft tissue: Skeletal structures included are normal for patient's age. XR/XR chest 1V IMPRESSION: 1. Opacity projecting over the right upper lobe might be a summation of rib shadows and prominent right first costochondral junction. 2. Linear opacity left lung base probably mild infiltrate or atelectasis.
--- NOTE | 2023-11-21 12:25 | PC.NURSE ---
PUT ON 1 L NC of oxygen as level was low and now on the 1 LNC his saturation is now 95/97 percent. MD aware. History of MJ and does use his CPAP
--- NOTE | 2023-11-21 12:26 | ECG_ITS ---
Test Reason : FALL Blood Pressure : / mmHG Vent. Rate : 082 BPM Atrial Rate : 000 BPM P-R Int : 000 ms QRS Dur : 098 ms QT Int : 404 ms P-R-T Axes : 000 076 041 degrees QTc Int : 472 ms Atrial fibrillation Incomplete right bundle branch block Abnormal ECG When compared with ECG of 06-SEP-2023 06:14, No significant change was found Referred By: Moriah Allen Electronically Signed By:SACHI ELENA
[2023-11-21 13:18] LABS: MANUAL DIFF FLAG NO
[2023-11-21 13:20] LABS: Basophils Absolute Auto 0.1 X10*3/uL (0.0-0.2); Basophils Percent Auto 0.5 % (0-2); Eosinophils Absolute Auto 0.1 X10*3/uL (0.0-0.4); Eosinophils Percent Auto 0.9 % (0-4); Hemoglobin 14.3 g/dl (14.0-18.0); Imm Gran Abs Auto 0.04 X10*3/uL (0.00-0.03); Imm Gran Pct Auto 0.3 % (0.0-0.4); Lymphocytes Absolute Auto 2.2 X10*3/uL (1.2-4.9); Lymphocytes Percent Auto 19.2 % (20-40); Mean Corpuscular HGB Conc 34.9 g/dl (31.0-36.0); Mean Corpuscular Hemoglobin 32.7 pg (27.0-33.0); Mean Corpuscular Volume 93.8 fL (80.0-98.0); Mean Platelet Volume 10.2 fL (9.4-12.4); Monocytes Absolute Auto 1.4 X10*3/uL (0.1-1.2); Monocytes Percent Auto 12.2 % (2-11); Neutrophils Absolute Auto 7.8 x10*3/uL (2.0-8.3); Neutrophils Percent Auto 66.9 % (45-73); Platelet Count 236 X10*3/uL (160-400); Red Blood Count 4.37 X10*6/uL (4.60-5.80); Red Cell Distribution Width 14.2 % (11.0-16.0); White Blood Count 11.6 X10*3/uL (4.8-10.8)
[2023-11-21 13:33] LABS: VBG Base Excess 0.1 mmol/L; VBG HCO3 27 mmol/L (22-26); VBG pCO2 55 mmHg; VBG pO2 44 mmHg
[2023-11-21 13:35] LABS: Venous Blood Gas Refer to POC result
[2023-11-21 13:38] LABS: INTERNATIONAL NORM RATIO 1.7 (0.9-1.1); Prothrombin Time 20.6 SEC (11.1-13.3)
[2023-11-21 13:41] LABS: Alanine Aminotransferase 12 U/L (0-40); Albumin Level 3.5 g/dL (3.5-5.0); Alkaline Phosphatase 157 U/L (39-117); Anion Gap 20 (12-20); Aspartate Amino Transferase 26 U/L (5-37); Bilirubin Total 0.9 mg/dL (0.0-1.0); Blood Urea Nitrogen 29 mg/dL (9-16); Calcium 8.3 mg/dL (8.4-10.2); Carbon Dioxide 26 mmol/L (22-29); Chloride 93 mmol/L (96-108); Creatinine Clr Calc Pharmacy 33.5; Estimated Glomerular Filt Rate 19; Ethanol 64 mg/dL; Glucose Random 126 mg/dL (60-115); Sodium 136 mmol/L (135-145); Total Protein 7.6 g/dL (6.5-8.0)
[2023-11-21 13:43] LABS: Lactic Acid 1.8 mmol/L (0.5-2.0)
[2023-11-21] MEDS: PHENobarbitaL sodium 130 MG/ML IM ONCE 360 MG IM (13:47)
[2023-11-21 14:04] LABS: B Type Natriuretic Peptide 570 pg/mL (<100)
--- NOTE | 2023-11-21 14:36 | ED.GENADULT ---
HPI - General Adult General Chief complaint: ETOH/Substance Use Stated complaint: FALL,HIT HEAD,RANDALL,+THINNERS,ETOH USE [facility] Time Seen by Provider: 11/21/23 12:16 Source: patient and EMS Mode of arrival: EMS History of Present Illness ED Provider: Dr Allen HPI narrative: 63-year-old male with multiple medical comorbidities to include alcohol use disorder, was drinking last night and states that he fell backwards from his walker and struck his head without loss of consciousness and is complaining of neck pain and states that he laid on the floor and was able to finally get up at approximately 05:00 this morning denies any abdominal discomfort/chest wall discomfort. Patient is on chronic anticoagulation. Related Data Home Medications ?Medication ?Instructions ?Recorded ?Confirmed fluoxetine 40 mg capsule 40 mg PO DAILY 07/13/23 08/18/23 Previous Rx's ?Medication ?Instructions ?Recorded blood-glucose meter (FreeStyle #1 ea 09/03/20 Lite Meter kit) lancets 28 gauge (FreeStyle #100 ea 02/02/21 Lancets) FreeStyle David 2 [place] (flash #1 ea 07/03/22 glucose scanning reader) FreeStyle David 2 Sensor (flash #1 ea 07/03/22 glucose sensor) acetaminophen 650 mg 650 mg PO Q12H PRN pain 30 days 09/29/22 tablet,extended release (Tylenol #60 tabs Arthritis Pain) amlodipine 5 mg tablet 5 mg PO DAILY #90 tabs 06/17/23 apixaban 5 mg tablet (Eliquis) 5 mg PO BID #180 tabs 06/17/23 folic acid 1 mg tablet 1 mg PO DAILY #90 tabs 09/16/23 gabapentin 300 mg capsule 300 mg PO BID 30 days #60 caps 09/16/23 furosemide 20 mg tablet 30 mg (1.5 x 20 mg) PO DAILY #135 10/12/23 tabs lisinopril 2.5 mg tablet 2.5 mg PO DAILY #90 tabs 10/12/23 omeprazole 20 mg capsule,delayed 40 mg (2 x 20 mg) PO DAILY@0630 10/12/23 release #180 caps rosuvastatin 5 mg tablet 5 mg PO DAILY #90 tabs 10/12/23 metformin 850 mg tablet 850 mg PO DAILY #90 tabs 10/24/23 albuterol sulfate 90 mcg/actuation 2 puff inhalation QID PRN Wheezing 11/03/23 aerosol inhaler #8.5 grams metoprolol tartrate 50 mg tablet 50 mg PO BID #180 tabs 11/13/23 Allergies Allergy/AdvReac Type Severity Reaction Status Date / Time No Known Allergies Allergy Verified 11/21/23 12:12 [No Known Allergies*] Review of Systems Review of Systems: Pertinent positives and negatives as stated in HPI [facility] Past Medical History Source: nursing notes reviewed Medical History Screen for STD (sexually transmitted disease) Left ankle swelling Hypomagnesemia Diarrhea Acute UTI Physical exam Nocturia Microhematuria Elevated serum creatinine Morbid obesity Increased ammonia level Weakness of both lower extremities Alcohol use disorder, severe, dependence Dermatitis, unspecified History of cardiac arrest (~05/2020) Nicotine dependence, cigarettes, uncomplicated Personal history of colonic polyps Hypoventilation associated with obesity syndrome Encephalopathy chronic MJ (obstructive sleep apnea) Effusion, right knee CKD (chronic kidney disease) stage 3, GFR 30-59 ml/min Cirrhosis Diabetes Obesity (BMI 35.0-39.9 without comorbidity) Wernicke encephalopathy Obstructive sleep apnea (adult) (pediatric) Rib fractures CHF (congestive heart failure) Left atrial enlargement Persistent atrial fibrillation Depression Gout Arthritis Anxiety HTN (hypertension) Surgical History History of tracheostomy (~2019) History of bronchoscopy (~2019) History of colonoscopy (~2021) History of esophagogastroduodenoscopy (EGD) (~2021) History of cardioversion (~2020) S/P percutaneous endoscopic gastrostomy (PEG) tube placement (~2019) Family History Family History Father Lung cancer Mother No problems noted. Maternal Aunt History of heart attack Sister No problems noted. Brother Cancer of kidney Brother No problems noted. Brother No problems noted. Brother No problems noted. Brother No problems noted. Brother No problems noted. Other Substance use disorder Social History Social History Household Members: Spouse Housing: House Do you presently have visiting nurse or other home services: No Unable to assess alcohol history related to: Unknown Alcohol intake: current Alcohol intake frequency: 3 or more drinks per day Alcohol type: hard liquor Comment: 1:1 sitter Patient Tobacco Use Status: Current everyday Tobacco user Tobacco use type: Cigarette Cigarette Packs Per Day: 0.5 Cigarettes Per Day: 10.0 Smoked in Last 30 Days: Yes e-Cigarette/Vaping Use: Never Used Second Hand Smoke Exposure: No Use of substances other than those prescribed or required for medical reasons: No Advance Directives: Yes Advance Directives on File: Yes Advance Directives Date on File: 06/05/20 Do you have a plan to hurt others: No Plan service: No Current occupational status: unemployed Cognitive needs: No Hearing needs: No Vision needs: No Physical Exam ED Vital Signs: Vital Signs - 24 hr 11/21/23 12:10 11/21/23 14:54 11/21/23 14:59 Temperature 98.7 F 98.2 F Pulse Rate 90 85 Respiratory Rate 19 15 Blood Pressure 121/65 139/77 139/77 Pulse Oximetry 85 L 94 Oxygen Delivery Method Room Air Room Air BMI result Body Mass Index 45.7 VITAL SIGNS: Reviewed. GENERAL: Elevated BMI, Well developed, well nourished, in no acute distress. HEAD: Normocephalic/atraumatic EYES: PERRLA, EOMI intact without pain, no nystagmus/pallor/icterus noted EARS: Ext canals without abnormality, TMs non-bulging and non-erythematous NOSE: Nares patent bilateral OROPHARYNX: no oral lesions noted, posterior pharynx clear and non-erythematous without noted tonsillar enlargement/erythema/exudates NECK: Supple, no adenopathy, no midline cervical spine tenderness to palpation or step-offs noted, however there is paraspinal/musculoskeletal discomfort on palpation LUNGS: Good inspiratory effort without significant tachypnea. SpO2<85> patient placed on 3 L nasal cannula and good response CARDIOVASCULAR: Regular rate and rhythm without noted murmurs, no JVD but bilateral lower extremity edema noted ABDOMEN: Soft, non-tender, non-distended with bowel sounds. MUSCULOSKELETAL: No tenderness, deformities, or effusions noted on gross inspection. EXTREMITIES: No cyanosis, clubbing or edema. SKIN: Inspection of the skin reveals no rashes NEUROLOGIC: Alert and oriented x 4. Strength and sensation to light touch were grossly intact x 4. Medications Administered Generic Name Dose Route Start Last Admin Trade Name Marleny PRN Reason Stop Dose Admin Ceftriaxone Sodium 2 gm/ 50 mls @ 100 mls/hr 11/21/23 14:40 11/21/23 14:54 Sodium Chloride IV 11/21/23 15:09 100 mls/hr ONCE ONE Administration Discontinued Medications Generic Name Dose Route Start Last Admin Trade Name Freq PRN Reason Stop Dose Admin Furosemide 40 mg 11/21/23 14:27 11/21/23 14:54 Furosemide 40 Mg/4 Ml Vial IVPUSH 11/21/23 14:28 40 mg ONCE ONE Administration Protocol Phenobarbital Sodium 360 mg 11/21/23 13:00 11/21/23 13:47 Phenobarbital Sodium 130 Mg/Ml Im Once IM 11/21/23 13:01 360 mg ONCE ONE Administration Protocol Medical Decision Making Medical Decision Making [facility] Narrative: 1230: 63-year-old male with history and clinical presentation patient, DDX: Intoxication, falls on chronic anticoagulation and will rule out intracranial hemorrhage/mass effect, patient will be placed on CIWA as well as a phenobarb protocol as he endorses that he has had withdrawal symptoms previously to include seizures, will rule out COPD exacerbation possible pneumonia as well as rhabdomyolysis as patient was lying on the floor for several hours last night. I reviewed all investigations and hematologic indices demonstrate a subtle leukocytosis without anemia or thrombocytopenia. Coagulation studies are elevated consistent with history of chronic anticoagulation use. VBG does not demonstrate respiratory acidosis, there is mild hypercapnia though this is likely consistent with his underlying diagnosis of COPD. Chemistry indices significant for mild hypokalemia will obtain magnesium levels prior to you repletion, otherwise significant MERLIN and do not suspect that the BNP is entirely attributable to fluid overload but is elevated-570 and taken into context with chest x-ray there does not appear to be evidence to suggest venous congestion but infiltrate in the left lower lobe. CT of the head negative for intracranial hemorrhage or mass effect and cervical spine CT negative for fracture or subluxation and otherwise my interpretation is in agreement with radiology's impression. 1458: I discussed with inpatient hospitalist who accepts admission. Differential Diagnosis Differential Diagnoses: The differential diagnosis associated with the presentation includes Please see the discussion above Admission/Observation Consideration of admission/observation: Escalation of care including admission/observation considered Please see the discussion above Consult Healthcare Provider Management of the patient was discussed with: Hospitalist Please see the discussion above Lab Data MDM Lab Attestation statement: I reviewed the patient's lab results. Please see the discussion above 11/21/23 13:12 11/21/23 13:12 Labs: Lab Results 11/21/23 11/21/23 Range/Units 13:12 13:26 WBC 11.6 H (4.8-10.8) X10*3/uL RBC 4.37 L (4.60-5.80) X10*6/uL Hgb 14.3 (14.0-18.0) g/dl Hct 41.0 L (42.0-52.0) % MCV 93.8 (80.0-98.0) fL MCH 32.7 (27.0-33.0) pg MCHC 34.9 (31.0-36.0) g/dl RDW 14.2 (11.0-16.0) % Plt Count 236 (160-400) X10*3/uL MPV 10.2 (9.4-12.4) fL Immature Gran % (Auto) 0.3 (0.0-0.4) % Neut % (Auto) 66.9 (45-73) % Lymph % (Auto) 19.2 L (20-40) % [place] % (Auto) 12.2 H (2-11) % Eos % (Auto) 0.9 (0-4) % Baso % (Auto) 0.5 (0-2) % Lymph # (Auto) 2.2 (1.2-4.9) X10*3/uL [place] # (Auto) 1.4 H (0.1-1.2) X10*3/uL Eos # (Auto) 0.1 (0.0-0.4) X10*3/uL Baso # (Auto) 0.1 (0.0-0.2) X10*3/uL Abs Immat Gran (auto) 0.04 H (0.00-0.03) X10*3/uL Absolute Neuts (auto) 7.8 (2.0-8.3) x10*3/uL Absolute Nucleated RBC 0.000 (0.0-0.012) X10*3/uL Nucleated RBC % (auto) 0.0 (0.0-0.2) /100WBC PT 20.6 H (11.1-13.3) SEC INR 1.7 H (0.9-1.1) VBG pH 7.30 L (7.32-7.43) VBG pCO2 55 mmHg VBG pO2 44 mmHg VBG HCO3 27 H (22-26) mmol/L VBG O2 Saturation 70.0 % VBG Base Excess 0.1 mmol/L Sodium 136 (135-145) mmol/L Potassium 3.0 L (3.3-5.1) mmol/L Chloride 93 L (96-108) mmol/L Carbon Dioxide 26 (22-29) mmol/L Anion Gap 20 (12-20) BUN 29 H (9-16) mg/dL Creatinine 3.38 H (0.5-1.4) mg/dL Estim Creat Clear Calc 33.5 Estimated GFR 19 Random Glucose 126 H (60-115) mg/dL Lactic Acid 1.8 (0.5-2.0) mmol/L Calcium 8.3 L D (8.4-10.2) mg/dL Total Bilirubin 0.9 (0.0-1.0) mg/dL AST 26 (5-37) U/L ALT 12 (0-40) U/L Alkaline Phosphatase 157 H (39-117) U/L B-Natriuretic Peptide 570 H (<100) pg/mL Total Protein 7.6 (6.5-8.0) g/dL Albumin 3.5 (3.5-5.0) g/dL Ethyl Alcohol 64 mg/dL Independent Interpretation I performed an independent interpretation of an: EKG Interpretation: Atrial fibrillation, HR-82, no STEMI, QRS/QTC is within normal limits. Radiology Impression Discussion of test interpretation with radiology: I have reviewed the radiologist's reading. Radiologist Impression: Please see the discussion above External Record Review External record reviewed: Outpatient record, Prior outpatient labs and Prior outpatient radiology Chronic Conditions Patient?s care impacted by: Diabetes, Hypertension and Other Atrial fibrillation on chronic anticoagulation, CKD, alcohol use disorder, MJ Social Determinants Patient?s care significantly limited by Social Determinants of Health including: Alcoholism and drug addiction in family Critical Care Time Critical Care Time Critical Care Time: Yes Total Critical Care Time: 60 Attestation: I personally attest to this time spent taking care of the patient. Discharge Plan Discharge Clinical Impression: Acute hypoxic respiratory failure, Alcohol withdrawal, MERLIN (acute kidney injury), Pneumonia, CHF (congestive heart failure) Patient Disposition: Admitted As Inpatient Print Language: Polish
[2023-11-21] MEDS: cefTRIAXone sodium 2 GM in 0.9 % Sodium Chloride 50 ML IV (14:54)
[2023-11-21] MEDS: Furosemide 40 MG/4 ML VIAL IVPUSH (14:54)
--- NOTE | 2023-11-21 15:19 | P.HPHOSP_ITS ---
History of Present Illness Date of Service: 11/21/23 Chief Complaint: Fall 63-year-old male with multiple medical comorbidities to include alcohol use disorder, was drinking last night and states that he fell backwards from his walker and struck his head without loss of consciousness and is complaining of neck pain and states that he laid on the floor and was able to finally get up at approximately 05:00 this morning denies any abdominal discomfort/chest wall discomfort. Patient is on chronic anticoagulation. He was noted to be hypoxic 85% and placed on oxygen with good response. He as also noted to be mildly hypotensive. He has no fever or leukocytosis, potassium is noted to be 3.0, creatinine 3.38 significantly above his baseline, ethyl alcohol level 64. Patient received phenobarbital, Lasix, Rocephin, potassium in the ER. He will be admitted for further management and treatment of acute hypoxic respiratory failure secondary to pneumonia, MERLIN and fall. Review of Systems 2 Review of Systems: Denies any recent fever chills or decrease in appetite respiratory denies any shortness of breath or cough cardiovascular denied cp gastrointestinal denies any dysphagia abdominal pain nausea vomiting or diarrhea genitourinary denies any dysuria frequency or hematuria musculoskeletal denies any joint pain or swelling neuropsych denies any weakness or seizures all other systems reviewed are negative [facility] Medical History Effusion, right knee Screen for STD (sexually transmitted disease) Left ankle swelling Hypomagnesemia Diarrhea Acute UTI Physical exam Nocturia Microhematuria Elevated serum creatinine Morbid obesity Increased ammonia level Weakness of both lower extremities Alcohol use disorder, severe, dependence Dermatitis, unspecified History of cardiac arrest (~05/2020) Nicotine dependence, cigarettes, uncomplicated Personal history of colonic polyps Hypoventilation associated with obesity syndrome Encephalopathy chronic MJ (obstructive sleep apnea) CKD (chronic kidney disease) stage 3, GFR 30-59 ml/min Cirrhosis Diabetes Obesity (BMI 35.0-39.9 without comorbidity) Wernicke encephalopathy Obstructive sleep apnea (adult) (pediatric) Rib fractures CHF (congestive heart failure) Left atrial enlargement Persistent atrial fibrillation Depression Gout Arthritis Anxiety HTN (hypertension) Family History Father Lung cancer Mother No problems noted. Maternal Aunt History of heart attack Sister No problems noted. Brother Cancer of kidney Brother No problems noted. Brother No problems noted. Brother No problems noted. Brother No problems noted. Brother No problems noted. Other Substance use disorder Surgical History History of tracheostomy (~2019) History of bronchoscopy (~2019) History of colonoscopy (~2021) History of esophagogastroduodenoscopy (EGD) (~2021) History of cardioversion (~2020) S/P percutaneous endoscopic gastrostomy (PEG) tube placement (~2019) Social History Household Members: Spouse Housing: House Do you presently have visiting nurse or other home services: No Unable to assess alcohol history related to: Unknown Alcohol intake: current Alcohol intake frequency: 0-2 drinks per day Alcohol type: beer Comment: 1:1 sitter Patient Tobacco Use Status: Current everyday Tobacco user Tobacco use type: Cigarette Cigarette Packs Per Day: 0.5 Cigarettes Per Day: 10.0 Years Smoked: 40 e-Cigarette/Vaping Use: Never Used Second Hand Smoke Exposure: No Advance Directives Date on File: 06/05/20 service: Yes Current occupational status: unemployed Cognitive needs: No Hearing needs: No Vision needs: No Meds Allergies Allergy/AdvReac Type Severity Reaction Status Date / Time No Known Allergies Allergy Verified 11/28/23 19:46 [No Known Allergies*] Active Medications: Current Medications Pharmacy Consult (Consult Rx Etoh Phenob Im/Po) 1 each MISCELLANE ONCE PRN; Protocol PRN Reason: Consult order Phenobarbital (Phenobarbital 30 Mg Tablet) 60 mg PO BID JESSICA; Protocol Stop: 11/23/23 21:01 Phenobarbital (Phenobarbital 30 Mg Tablet) 30 mg PO BID JESSICA; Protocol Stop: 11/25/23 21:01 Phenobarbital (Phenobarbital 30 Mg Tablet) 30 mg PO DAILY JESSICA; Protocol Stop: 11/27/23 09:01 Phenobarbital Sodium (Phenobarbital Sodium 130 Mg/Ml Vial Im Q3hx2) 270 mg IM Q3H JESSICA; Protocol Stop: 11/21/23 19:01 Home Medications ?Medication ?Instructions ?Recorded ?Confirmed ?Last Taken ?Type fluoxetine 40 mg capsule 40 mg PO DAILY 07/13/23 11/29/23 11/20/23 History multivitamin with folic acid 400 1 tab PO DAILY 11/21/23 11/29/23 11/20/23 History mcg tablet (Daily-Carlito (with folic acid)) Physical Exam 2 Vital Signs and Narrative: Vital Signs: Last Vital Signs Temp 98.2 F 11/21/23 14:59 Pulse 85 11/21/23 14:59 Resp 15 11/21/23 14:59 BP 139/77 11/21/23 14:59 Pulse Ox 94 11/21/23 14:59 O2 Del Method Room Air 11/21/23 14:59 BMI result Body Mass Index 45.7 Appearing in no acute distress head is normocephalic atraumatic eyes pupils are PERRLA sclera is anicteric mouth throat mucous membranes are intact and moist neck is supple no lymphadenopathy, no JVD noted lung sounds are clear to auscultation heart regular rate rhythm, clear S1, S2 positive bowel sounds, abdomen is soft, nontender, obese neuro patient is alert x3, no focal deficits Results Labs 11/22/23 05:45 11/24/23 08:35 Labs: Laboratory Results - last 24 hr 11/21/23 11/21/23 13:12 13:26 MCV 93.8 MCH 32.7 MCHC 34.9 RDW 14.2 Plt Count 236 MPV 10.2 Immature Gran % (Auto) 0.3 Neut % (Auto) 66.9 Lymph % (Auto) 19.2 L [place] % (Auto) 12.2 H Eos % (Auto) 0.9 Baso % (Auto) 0.5 Lymph # (Auto) 2.2 [place] # (Auto) 1.4 H Eos # (Auto) 0.1 Baso # (Auto) 0.1 Abs Immat Gran (auto) 0.04 H Absolute Neuts (auto) 7.8 Absolute Nucleated RBC 0.000 Nucleated RBC % (auto) 0.0 PT 20.6 H INR 1.7 H VBG pH 7.30 L VBG pCO2 55 VBG pO2 44 VBG HCO3 27 H VBG O2 Saturation 70.0 VBG Base Excess 0.1 Anion Gap 20 Estim Creat Clear Calc 33.5 Estimated GFR 19 Random Glucose 126 H Lactic Acid 1.8 Calcium 8.3 L D Total Bilirubin 0.9 AST 26 ALT 12 Alkaline Phosphatase 157 H B-Natriuretic Peptide 570 H Total Protein 7.6 Albumin 3.5 Ethyl Alcohol 64 Imaging Radiologist's Impressions: Impressions Chest X-Ray 11/21/23 12:48 IMPRESSION: 1. Opacity projecting over the right upper lobe might be a summation of rib shadows and prominent right first costochondral junction. 2. Linear opacity left lung base probably mild infiltrate or atelectasis. Cervical Spine CT 11/21/23 12:50 IMPRESSION: No acute intracranial pathology. No acute fracture subluxation cervical spine. Head CT 11/21/23 12:50 IMPRESSION: No acute intracranial pathology. No acute fracture subluxation cervical spine. Assessment and Plan (1) CHF (congestive heart failure): Status: Acute (2) Pneumonia: Status: Acute Plan 63-year-old man admitted with acute hypoxic respiratory failure secondary to community-acquired pneumonia Acute hypoxic respiratory failure secondary to community-acquired pneumonia no sepsis Start Rocephin and azithromycin Supplemental oxygen as needed Cough suppressant as needed follow blood cx Alcohol abuse with withdrawal Start phenobarbital protocol Thiamine, multivitamin and folic acid Addiction medicine consultation MERLIN Likely secondary to dehydration vs hypoperfusion in light of low BP IV fluids hold melvi and lasix Follow BMP if no improvement consider nephrology consultation Hypokalemia/hypomagnesemia Potassium 3.0 mag 1.3 Replace with oral and IV follow BMP Fall Will need PT consult head and spine cts neg for acute abnormality Diabetes mellitus type 2 Sliding scale, ADA diet Hypertension low BP hold melvi and arb HFrEF no exacerbation Persistent atrial fibrillation stable heart rate continue BB and eliquis Obstructive sleep apnea on cpap at bedtime Morbid obesity. BMI 45.7 Discussed importance of weight management as this may be contributing to worsening of other comorbidities GERD Continue PPI Smoker discussed the importance of cessation NRT offered and accepted DVT prophylaxis with Eliquis Full code patient would require 48 hr admission for tx of resp failure secondary to pneumonia and MERLIN. He requires IV abx and treatment for alcohol abuse. Quality Stroke Does the patient have a stroke diagnosis?: No VTE Prior VTE?: No VTE Risk Level:: Medical - moderate - high VTE Device Contraindication: Treatment Not Indicated VTE Drug Contraindication: N/A - Med Ordered
[2023-11-21 16:01] LABS: Magnesium 1.3 mg/dL (1.6-2.6)
[2023-11-21] MEDS: Potassium Chloride ER 20 MEQ TAB.ER.PRT 40 MEQ PO (16:07)
[2023-11-21] MEDS: Azithromycin 500 MG in 0.9 % Sodium Chloride 250 ML 125 MG IV (16:10)
[2023-11-21] MEDS: 0.9 % Sodium Chloride Flush 3 ML SYRINGE IVFLUSH ×2 (16:11→21:23)
--- NOTE | 2023-11-21 16:14 | PHA.MEDREC ---
Pharmacy Consult ? Medication Reconciliation Pharmacy has completed the medication reconciliation. Spoke to patient at bedside, able to name some medications but stated his takes care of his home meds. Went down list and he was able to tell me yes or no based on recent claim history
[2023-11-21 16:42] LABS: Appearance Urine Clear; Color Urine Yellow; Glucose Urine UA Negative (Negative); Leukocyte Esterase Urine Negative (Negative); Nitrite Urine Negative (Negative); Urine Blood Negative (Negative); Urine Ketones Trace mg/dL (Negative); Urine Protein Trace mg/dL (Neg-Trace)
[2023-11-21] MEDS: PHENobarbitaL sodium 130 MG/ML VIAL IM Q3Hx2 270 MG IM ×2 (16:48→21:21)
[2023-11-21] MEDS: Magnesium Sulfate/H2O 2 GM/50 ML PIGGYBACK IV (17:06)
[2023-11-21] MEDS: Lactated Ringers 1,000 ML 100 ML IVCONT (17:30)
[2023-11-21] MEDS: Nicotine 7 MG PATCH.TD24 TRANSDERMA (18:21)
--- NOTE | 2023-11-21 19:44 | PC.NURSE ---
delay in phenobarb administration due to none in ED called pharmacy at 1900 to let them know and they reports will bring down
--- NOTE | 2023-11-21 20:32 | PC.NURSE ---
let floor nurse know was unable to give 0 phenobarb as pharmacy has not brought down
[2023-11-21] MEDS: Metoprolol Tartrate 50 MG TABLET PO (21:20)
[2023-11-21] MEDS: Apixaban 5 MG TABLET PO (21:21)
[2023-11-22] VITALS (10 sets, daily range): BP systolic 92–164; BP diastolic 58–88; PULSE 82–106; RESP 17–22; TEMP 36.1–37; O2SAT 91–97; BMI 45.3
[2023-11-22] MEDS: hydrOXYzine HCL 50 MG TABLET PO (03:49)
[2023-11-22] MEDS: Omeprazole 40 MG CAPSULE.DR PO (05:18)
[2023-11-22] MEDS: Lactated Ringers 1,000 ML 100 ML IVCONT ×3 (05:18→23:21)
[2023-11-22 05:42] LABS: Glucose, Whole Blood 120 mg/dL (60-115)
[2023-11-22 05:51] LABS: MANUAL DIFF FLAG NO
[2023-11-22 05:53] LABS: VBG Base Excess 2.9 mmol/L; VBG HCO3 27 mmol/L (22-26); VBG pCO2 40 mmHg; VBG pH 7.43 (7.32-7.43); VBG pO2 43 mmHg
[2023-11-22 05:56] LABS: Basophils Absolute Auto 0.1 X10*3/uL (0.0-0.2); Basophils Percent Auto 0.5 % (0-2); Eosinophils Absolute Auto 0.1 X10*3/uL (0.0-0.4); Eosinophils Percent Auto 0.6 % (0-4); Hemoglobin 12.9 g/dl (14.0-18.0); Imm Gran Abs Auto 0.05 X10*3/uL (0.00-0.03); Imm Gran Pct Auto 0.5 % (0.0-0.4); Lymphocytes Absolute Auto 1.7 X10*3/uL (1.2-4.9); Mean Corpuscular HGB Conc 33.9 g/dl (31.0-36.0); Mean Corpuscular Hemoglobin 32.1 pg (27.0-33.0); Mean Corpuscular Volume 94.5 fL (80.0-98.0); Mean Platelet Volume 10.2 fL (9.4-12.4); Monocytes Absolute Auto 1.4 X10*3/uL (0.1-1.2); Monocytes Percent Auto 12.3 % (2-11); Neutrophils Absolute Auto 7.9 x10*3/uL (2.0-8.3); Neutrophils Percent Auto 71.1 % (45-73); Platelet Count 222 X10*3/uL (160-400); Red Blood Count 4.02 X10*6/uL (4.60-5.80); Red Cell Distribution Width 14.3 % (11.0-16.0); White Blood Count 11.1 X10*3/uL (4.8-10.8)
[2023-11-22 05:58] LABS: Venous Blood Gas Refer to POC result
[2023-11-22] MEDS: Furosemide 40 MG/4 ML VIAL IVPUSH (06:05)
[2023-11-22 06:14] LABS: Alanine Aminotransferase 12 U/L (0-40); Albumin Level 3.1 g/dL (3.5-5.0); Alkaline Phosphatase 146 U/L (39-117); Anion Gap 19 (12-20); Aspartate Amino Transferase 24 U/L (5-37); Bilirubin Total 0.6 mg/dL (0.0-1.0); Blood Urea Nitrogen 34 mg/dL (9-16); Carbon Dioxide 24 mmol/L (22-29); Chloride 98 mmol/L (96-108); Creatinine Clr Calc Pharmacy 43.5; Estimated Glomerular Filt Rate 25; Glucose Random 128 mg/dL (60-115); Magnesium 1.6 mg/dL (1.6-2.6); Potassium 4.1 mmol/L (3.3-5.1); Sodium 137 mmol/L (135-145); Total Protein 6.8 g/dL (6.5-8.0)
--- NOTE | 2023-11-22 06:32 | PC.NURSE ---
patient drowsy, increased work of breathing and increased confusion. rapid response called. MD ordered VBG ordered, chest x-ray and labs ordered and obtained. ordered to hold fluids and administer lasix 40mg IV push. vitals 162/84, 91% on CPAP pulse 88, respiratory rate 22 temp 98.0.
--- NOTE | 2023-11-22 07:04 | PM.EVENT ---
Event Note Date of Service: 11/22/23 Event Note: 5:26 AM - patient noted to be more confused and more increased work of breathing. Evaluated patient and rapid response activated. Stat venous blood gas showed no respiratory acidosis. Patient has been receiving phenobarbital and received 1 dose of hydroxyzine for anxiety. He has been using nocturnal CPAP and removed it at 03:00. He was found to have low O2 sat and his oxygen was increased to 4 L/min. It was eventually titrated unknown 2 liters/minute. IV fluids are therapy was Lasix IV was started. Blood workup this morning shows significant improvement from previous. CXR was obtained and showed no changes from prior. We will order ammonia level and place pulmonology consult. Time Spent With Patient Time: Total time managing care of this patient today ____ minutes.
[2023-11-22 07:52] LABS: Glucose, Whole Blood 119 mg/dL (60-115)
[2023-11-22 08:25] LABS: Ammonia 35 umol/L (13-55)
--- NOTE | 2023-11-22 09:00 | P.PNIM_ITS ---
Subjective Subjective Date of Service: 11/22/23 Review of Systems Follow-up encephalopathy, alcohol abuse Very confused and disoriented Physical Exam 2 Vital Signs: Vital Signs: Last Vital Signs Temp 96.9 F 11/22/23 08:00 Pulse 82 11/22/23 08:00 Resp 17 11/22/23 08:00 BP 116/65 11/22/23 08:00 Pulse Ox 97 11/22/23 08:00 O2 Del Method Nasal Cannula 11/22/23 08:00 O2 Flow Rate 2 11/22/23 08:00 BMI result Body Mass Index 45.3 Appearing confused and disoriented lung sounds are clear to auscultation heart regular rate rhythm, clear S1, S2 positive bowel sounds, abdomen is soft, nontender, obese neuro patient is alert, confused Objective Data Active Medications Acetaminophen (Acetaminophen 325 Mg Tablet) 650 mg PO Q6H PRN PRN Reason: Pain, Mild (Pain Scale 1-3) Albuterol Sulfate (Albuterol Sulfate 90 Mcg 8 Gm Inhaler) 2 puff INHALE QID PRN PRN Reason: Wheezing Apixaban (Apixaban 5 Mg Tablet) 5 mg PO BID [facility] Last Admin: 11/21/23 21:21 Dose: 5 mg Documented By: DORINDA Fluoxetine HCl (Fluoxetine Hcl 20 Mg Capsule) 40 mg PO DAILY [facility] Folic Acid (Folic Acid 1 Mg Tablet) 1 mg PO DAILY [facility] Furosemide (Furosemide 40 Mg/4 Ml Vial) 40 mg IVPUSH DAILY [facility]; Protocol Last Admin: 11/22/23 06:05 Dose: 40 mg Documented By: DORINDA Gabapentin (Gabapentin 300 Mg Capsule) 300 mg PO BID [facility] Last Admin: 11/21/23 23:56 Dose: Not Given Documented By: DORINDA Non-Admin Reason: pt drowsy but easily arousable to voice Guaifenesin/Dextromethorphan (Guaifenesin Dm 100/10/5 Ml 5 Ml Syrup) 5 ml PO Q4H PRN PRN Reason: Cough Ceftriaxone Sodium 1 gm/ (Sodium Chloride) 50 mls @ 100 mls/hr IV Q24H JESSICA Azithromycin 500 mg/ Sodium (Chloride) 250 mls @ 125 mls/hr IV Q24H [facility] Last Infusion: 11/21/23 18:15 Dose: Infused Documented By: MANDY Lactated Ringer's (Lr) 1,000 mls @ 100 mls/hr IVCONT .Q10H [facility] Last Infusion: 11/22/23 06:52 Dose: 0 mls/hr Documented By: DORINDA Thiamine HCl 200 mg/ Sodium (Chloride) 102 mls @ 204 mls/hr IV TID [facility] Metoprolol Tartrate (Metoprolol Tartrate 50 Mg Tablet) 50 mg PO BID [facility]; Protocol Last Admin: 11/21/23 21:20 Dose: 50 mg Documented By: DORINDA Multivitamins/Vitamin C (Multivitamin Tablet) 1 tab PO DAILY [facility] Nicotine (Nicotine 7 Mg Patch.Td24) 7 mg TRANSDERMA DAILY [facility] Last Admin: 11/21/23 18:21 Dose: 7 mg Documented By: MANDY Omeprazole (Omeprazole 40 Mg Capsule.Dr) 40 mg PO DAILY@30 [facility] Last Admin: 11/22/23 05:18 Dose: 40 mg Documented By: DORINDA Ondansetron HCl (Ondansetron Hcl 4 Mg/2 Ml Vial) 4 mg IVPUSH Q8H PRN PRN Reason: Nausea and Vomiting Pharmacy Consult (Consult Rx Etoh Phenob Im/Po) 1 each MISCELLANE ONCE PRN; Protocol PRN Reason: Consult order Phenobarbital (Phenobarbital 30 Mg Tablet) 60 mg PO BID [facility]; Protocol Stop: 11/23/23 21:01 Phenobarbital (Phenobarbital 30 Mg Tablet) 30 mg PO BID [facility]; Protocol Stop: 11/25/23 21:01 Phenobarbital (Phenobarbital 30 Mg Tablet) 30 mg PO DAILY [facility]; Protocol Stop: 11/27/23 09:01 Sodium Chloride (0.9 % Sodium Chloride Flush 3 Ml Syringe) 3 ml IVFLUSH QSHIFT [facility] Last Admin: 11/21/23 21:23 Dose: 3 ml Documented By: DORINDA Labs 11/22/23 05:45 11/22/23 05:45 Labs: Laboratory Results - last 24 hr 11/21/23 11/21/23 11/21/23 13:12 13:26 16:31 MCV 93.8 MCH 32.7 MCHC 34.9 RDW 14.2 Plt Count 236 MPV 10.2 Immature Gran % (Auto) 0.3 Neut % (Auto) 66.9 Lymph % (Auto) 19.2 L [place] % (Auto) 12.2 H Eos % (Auto) 0.9 Baso % (Auto) 0.5 Lymph # (Auto) 2.2 [place] # (Auto) 1.4 H Eos # (Auto) 0.1 Baso # (Auto) 0.1 Abs Immat Gran (auto) 0.04 H Absolute Neuts (auto) 7.8 Absolute Nucleated RBC 0.000 Nucleated RBC % (auto) 0.0 PT 20.6 H INR 1.7 H VBG pH 7.30 L VBG pCO2 55 VBG pO2 44 VBG HCO3 27 H VBG O2 Saturation 70.0 VBG Base Excess 0.1 Anion Gap 20 Estim Creat Clear Calc 33.5 Estimated GFR 19 POC Glucose Random Glucose 126 H Lactic Acid 1.8 Calcium 8.3 L D Magnesium 1.3 L* Total Bilirubin 0.9 AST 26 ALT 12 Alkaline Phosphatase 157 H Ammonia Total Creatine Kinase 106 B-Natriuretic Peptide 570 H Total Protein 7.6 Albumin 3.5 Urine Color Yellow Urine Appearance Clear Urine pH 5.0 Ur Specific Starke 1.020 Urine Protein Trace Urine Glucose (UA) Negative Urine Ketones Trace Urine Blood Negative Urine Nitrite Negative Ur Leukocyte Esterase Negative Ethyl Alcohol 64 11/22/23 11/22/23 11/22/23 05:38 05:45 07:49 MCV 94.5 MCH 32.1 MCHC 33.9 RDW 14.3 Plt Count 222 MPV 10.2 Immature Gran % (Auto) 0.5 H Neut % (Auto) 71.1 Lymph % (Auto) 15.0 L [place] % (Auto) 12.3 H Eos % (Auto) 0.6 Baso % (Auto) 0.5 Lymph # (Auto) 1.7 [place] # (Auto) 1.4 H Eos # (Auto) 0.1 Baso # (Auto) 0.1 Abs Immat Gran (auto) 0.05 H Absolute Neuts (auto) 7.9 Absolute Nucleated RBC 0.000 Nucleated RBC % (auto) 0.0 PT INR VBG pH 7.43 VBG pCO2 40 VBG pO2 43 VBG HCO3 27 H VBG O2 Saturation 68.0 VBG Base Excess 2.9 Anion Gap 19 Estim Creat Clear Calc 43.5 Estimated GFR 25 POC Glucose 120 H 119 H Random Glucose 128 H Lactic Acid Calcium 8.0 L Magnesium 1.6 Total Bilirubin 0.6 AST 24 ALT 12 Alkaline Phosphatase 146 H Ammonia Total Creatine Kinase B-Natriuretic Peptide Total Protein 6.8 Albumin 3.1 L Urine Color Urine Appearance Urine pH Ur Specific [place] Urine Protein Urine Glucose (UA) Urine Ketones Urine Blood Urine Nitrite Ur Leukocyte Esterase Ethyl Alcohol 11/22/23 07:57 MCV MCH MCHC RDW Plt Count MPV Immature Gran % (Auto) Neut % (Auto) Lymph % (Auto) [place] % (Auto) Eos % (Auto) Baso % (Auto) Lymph # (Auto) [place] # (Auto) Eos # (Auto) Baso # (Auto) Abs Immat Gran (auto) Absolute Neuts (auto) Absolute Nucleated RBC Nucleated RBC % (auto) PT INR VBG pH VBG pCO2 VBG pO2 VBG HCO3 VBG O2 Saturation VBG Base Excess Anion Gap Estim Creat Clear Calc Estimated GFR POC Glucose Random Glucose Lactic Acid Calcium Magnesium Total Bilirubin AST ALT Alkaline Phosphatase Ammonia 35 Total Creatine Kinase B-Natriuretic Peptide Total Protein Albumin Urine Color Urine Appearance Urine pH Ur Specific Star[place] Urine Protein Urine Glucose (UA) Urine Ketones Urine Blood Urine Nitrite Ur Leukocyte Esterase Ethyl Alcohol Assessment and Plan (1) CHF exacerbation: Status: Resolved (2) Hypoxia: Status: Resolved (3) Pneumonia: Status: Inactive Assessment and Plan: 63-year-old man admitted with acute hypoxic respiratory failure secondary to community-acquired pneumonia Acute encephalopathy, possible Wernicke's encephalopathy secondary to alcohol abuse Noted encephalopathy, nystagmus, ataxia Ammonia 35, normal VBG, repeat chest x-ray this morning negative for acute abnormality Will start IV thiamine 200 mg t.i.d. Neurology consultation ordered Acute hypoxic respiratory failure secondary to community-acquired pneumonia no sepsis Continue Rocephin and azithromycin Supplemental oxygen as needed Cough suppressant as needed follow blood cx Alcohol abuse with withdrawal Continue phenobarbital protocol IV Thiamine, multivitamin and folic acid Addiction medicine consultation MERLIN. Creatinine trending down Likely secondary to dehydration vs hypoperfusion in light of low BP IV fluids hold melvi and lasix Follow BMP if no improvement consider nephrology consultation Hypokalemia/hypomagnesemia Potassium 3.0 mag 1.3 Replace with oral and IV follow BMP Fall Will need PT consult head and spine cts neg for acute abnormality Diabetes mellitus type 2 Sliding scale, ADA diet Hypertension low BP hold melvi and arb HFrEF no exacerbation Persistent atrial fibrillation stable heart rate continue BB and eliquis Obstructive sleep apnea on cpap at bedtime Morbid obesity. BMI 45.3 Discussed importance of weight management as this may be contributing to worsening of other comorbidities GERD Continue PPI Smoker discussed the importance of cessation NRT offered and accepted DVT prophylaxis with Rosie Attending Dr. Ram Full code Continue hospital stay for tx of resp failure secondary to pneumonia and MERLIN. He requires IV abx and treatment for alcohol abuse. Quality Stroke Does the patient have a stroke diagnosis?: No VTE Prior VTE?: No VTE Risk Level:: Medical - moderate - high VTE Device Contraindication: Treatment Not Indicated VTE Drug Contraindication: N/A - Med Ordered
[2023-11-22] MEDS: Multivitamin TABLET 1 TAB PO (09:48)
[2023-11-22] MEDS: Metoprolol Tartrate 50 MG TABLET PO ×2 (09:48→21:02)
[2023-11-22] MEDS: Folic Acid 1 MG TABLET PO (09:49)
[2023-11-22] MEDS: Apixaban 5 MG TABLET PO ×2 (09:49→19:55)
[2023-11-22] MEDS: Nicotine 7 MG PATCH.TD24 TRANSDERMA (09:49)
[2023-11-22] MEDS: PHENobarbitaL 30 MG TABLET 60 MG PO ×2 (09:49→21:02)
[2023-11-22] MEDS: 0.9 % Sodium Chloride Flush 3 ML SYRINGE IVFLUSH (09:49)
[2023-11-22] MEDS: FLUoxetine HCl 20 MG CAPSULE 40 MG PO (09:49)
[2023-11-22] MEDS: Gabapentin 300 MG CAPSULE PO ×2 (09:49→21:01)
[2023-11-22] MEDS: Thiamine HCL 200 MG in 0.9 % Sodium Chloride 100 ML 204 MG IV ×3 (09:52→20:02)
[2023-11-22 10:30] LABS: Glucose, Whole Blood 133 mg/dL (60-115)
[2023-11-22 11:48] LABS: Glucose, Whole Blood 122 mg/dL (60-115)
--- NOTE | 2023-11-22 12:16 | MHC.CM.PN ---
Addendum entered by Elana Diaz 11/22/23 12:31: CM RECEIVED A RETURN CALL FROM PTS HCP/BROTHER, RANDAL HE CONFIRMED THE INFORMATION DOCUMENTED, HOWEVER PT NOW USES A WALKER INSTEAD OF A CANE HE SAYS [employer] THE PT HAD NO SERVICES HOWEVER HE FEELS PT WILL LIKELY NEED VNA OR STR HE SAYS THE PT HATES GOING TO STR, SO HE WILL TALK TO HIM ABOUT IT WHEN PT CLEARS PTS AND MEDICARE RIGHTS WERE DELIVERED, COPIES EMAILED TO RANDAL AT Original Note: PT CONFUSED AND UNABLE TO PROVIDE HISTORY/BASELINE CM ATTEMPTED TO CONTACT PTS HCP/BROTHER, RANDAL [phone], VM MESSAGE LEFT CM ALSO ATTEMPTED TO CONTACT PTS PRIMARY CONTACT/, ELSA [phone], VM MESSAGE LEFT PER EMR/PRIOR VISITS, PT LIVES AT HOME WITH HIS HE HAS HAD VNA ON AND OFF AND BEEN TO STR IN THE PAST PT HAS A HCP ON FILE PCP RANDAL CORDOVA IMM TO BE DELIVERED WHEN CONTACTS ARE REACHABLE OR PT CLEARS DCP TBD
--- NOTE | 2023-11-22 15:43 | P.CNNE_ITS ---
History of Present Illness Data of Consult Service Date: 11/22/23 Primary Care Provider: Ortiz Deluca, [facility]- HPI Reason for consult: encephalopathy This is a 63-year-old male with multiple medical problems including alcohol use disorder, who was drinking last night and states that he fell backwards from his walker and struck his head without loss of consciousness and is complaining of neck pain and states that he laid on the floor and was able to finally get up at approximately 05:00 this morning denies any abdominal discomfort/chest wall discomfort. Patient is on chronic anticoagulation. He was noted to be hypoxic 85% and placed on oxygen with good response. He as also noted to be mildly hypotensive. He has no fever or leukocytosis, potassium is noted to be 3.0, creatinine 3.38 significantly above his baseline, ethyl alcohol level 64. Patient received phenobarbital, Lasix, Rocephin, potassium in the ER. He will be admitted for further management and treatment of acute hypoxic respiratory failure secondary to pneumonia, MERLIN and fall. Review of Systems 2 Review of Systems: Follow-up encephalopathy, alcohol abuse Very confused and disoriented [facility] Past Medical History Medical History Screen for STD (sexually transmitted disease) Left ankle swelling Hypomagnesemia Diarrhea Acute UTI Physical exam Nocturia Microhematuria Elevated serum creatinine Morbid obesity Increased ammonia level Weakness of both lower extremities Alcohol use disorder, severe, dependence Dermatitis, unspecified History of cardiac arrest (~05/2020) Nicotine dependence, cigarettes, uncomplicated Personal history of colonic polyps Hypoventilation associated with obesity syndrome Encephalopathy chronic MJ (obstructive sleep apnea) Effusion, right knee CKD (chronic kidney disease) stage 3, GFR 30-59 ml/min Cirrhosis Diabetes Obesity (BMI 35.0-39.9 without comorbidity) Wernicke encephalopathy Obstructive sleep apnea (adult) (pediatric) Rib fractures CHF (congestive heart failure) Left atrial enlargement Persistent atrial fibrillation Depression Gout Arthritis Anxiety HTN (hypertension) Family History Family History Father Lung cancer Mother No problems noted. Maternal Aunt History of heart attack Sister No problems noted. Brother Cancer of kidney Brother No problems noted. Brother No problems noted. Brother No problems noted. Brother No problems noted. Brother No problems noted. Other Substance use disorder Surgical History Surgical History History of tracheostomy (~2019) History of bronchoscopy (~2019) History of colonoscopy (~2021) History of esophagogastroduodenoscopy (EGD) (~2021) History of cardioversion (~2020) S/P percutaneous endoscopic gastrostomy (PEG) tube placement (~2019) Social History Social History Household Members: Spouse Housing: House Do you presently have visiting nurse or other home services: No Unable to assess alcohol history related to: Unknown Alcohol intake: current Alcohol intake frequency: 3 or more drinks per day Alcohol type: hard liquor Comment: 1:1 sitter Patient Tobacco Use Status: Current everyday Tobacco user Tobacco use type: Cigarette Cigarette Packs Per Day: 0.5 Cigarettes Per Day: 10.0 Smoked in Last 30 Days: Yes e-Cigarette/Vaping Use: Never Used Patient Interested in Nicotine Replacement: Yes Second Hand Smoke Exposure: No Use of substances other than those prescribed or required for medical reasons: No Currently Displaying Signs/Symptoms of Drug Intoxication Withdrawal: No Have you been hit, kicked, punched, or otherwise hurt by someone within the past year? If so, by whom?: No Is there a partner from a previous relationship who is making you feel unsafe now?: No Are you made to feel afraid or neglected: No Advance Directives: Yes Advance Directives on File: Yes Advance Directives Date on File: 06/05/20 Do you have a plan to hurt others: No Plan Nutrition Risks: No Nutritional Risk service: Yes Current occupational status: unemployed Cognitive needs: No Hearing needs: No Vision needs: No Meds Allergies Allergy/AdvReac Type Severity Reaction Status Date / Time No Known Allergies Allergy Verified 11/21/23 12:12 [No Known Allergies*] Active Medications: Current Medications Acetaminophen (Acetaminophen 325 Mg Tablet) 650 mg PO Q6H PRN PRN Reason: Pain, Mild (Pain Scale 1-3) Albuterol Sulfate (Albuterol Sulfate 90 Mcg 8 Gm Inhaler) 2 puff INHALE QID PRN PRN Reason: Wheezing Apixaban (Apixaban 5 Mg Tablet) 5 mg PO BID JESSICA Last Admin: 11/22/23 09:49 Dose: 5 mg Fluoxetine HCl (Fluoxetine Hcl 20 Mg Capsule) 40 mg PO DAILY [facility] Last Admin: 11/22/23 09:49 Dose: 40 mg Folic Acid (Folic Acid 1 Mg Tablet) 1 mg PO DAILY [facility] Last Admin: 11/22/23 09:49 Dose: 1 mg Furosemide (Furosemide 40 Mg/4 Ml Vial) 40 mg IVPUSH DAILY [facility]; Protocol Last Admin: 11/22/23 06:05 Dose: 40 mg Gabapentin (Gabapentin 300 Mg Capsule) 300 mg PO BID [facility] Last Admin: 11/22/23 09:49 Dose: 300 mg Guaifenesin/Dextromethorphan (Guaifenesin Dm 100/10/5 Ml 5 Ml Syrup) 5 ml PO Q4H PRN PRN Reason: Cough Ceftriaxone Sodium 1 gm/ (Sodium Chloride) 50 mls @ 100 mls/hr IV Q24H JESSICA Azithromycin 500 mg/ Sodium (Chloride) 250 mls @ 125 mls/hr IV Q24H [facility] Last Infusion: 11/21/23 18:15 Dose: Infused Lactated Ringer's (Lr) 1,000 mls @ 100 mls/hr IVCONT .Q10H [facility] Last Admin: 11/22/23 12:05 Dose: 100 mls/hr Thiamine HCl 200 mg/ Sodium (Chloride) 102 mls @ 204 mls/hr IV TID [facility] Last Infusion: 11/22/23 10:47 Dose: Infused Metoprolol Tartrate (Metoprolol Tartrate 50 Mg Tablet) 50 mg PO BID [facility]; Protocol Last Admin: 11/22/23 09:48 Dose: 50 mg Multivitamins/Vitamin C (Multivitamin Tablet) 1 tab PO DAILY [facility] Last Admin: 11/22/23 09:48 Dose: 1 tab Nicotine (Nicotine 7 Mg Patch.Td24) 7 mg TRANSDERMA DAILY [facility] Last Admin: 11/22/23 09:49 Dose: 7 mg Omeprazole (Omeprazole 40 Mg Capsule.Dr) 40 mg PO DAILY@0630 [facility] Last Admin: 11/22/23 05:18 Dose: 40 mg Ondansetron HCl (Ondansetron Hcl 4 Mg/2 Ml Vial) 4 mg IVPUSH Q8H PRN PRN Reason: Nausea and Vomiting Pharmacy Consult (Consult Rx Etoh Phenob Im/Po) 1 each MISCELLANE ONCE PRN; Protocol PRN Reason: Consult order Phenobarbital (Phenobarbital 30 Mg Tablet) 60 mg PO BID [facility]; Protocol Stop: 11/23/23 21:01 Last Admin: 11/22/23 09:49 Dose: 60 mg Phenobarbital (Phenobarbital 30 Mg Tablet) 30 mg PO BID [facility]; Protocol Stop: 11/25/23 21:01 Phenobarbital (Phenobarbital 30 Mg Tablet) 30 mg PO DAILY [facility]; Protocol Stop: 11/27/23 09:01 Sodium Chloride (0.9 % Sodium Chloride Flush 3 Ml Syringe) 3 ml IVFLUSH QSHIFT [facility] Last Admin: 11/22/23 09:49 Dose: 3 ml Home Medications ?Medication ?Instructions ?Recorded ?Confirmed ?Last Taken ?Type fluoxetine 40 mg capsule 40 mg PO DAILY 07/13/23 11/21/23 11/20/23 History multivitamin with folic acid 400 1 tab PO DAILY 11/21/23 11/21/23 11/20/23 History mcg tablet (Daily-Carlito (with folic acid)) Physical Exam 2 Vital Signs: Vital Signs: Last Vital Signs Temp 98.2 F 11/22/23 15:12 Pulse 95 11/22/23 15:12 Resp 17 11/22/23 15:12 BP 123/88 11/22/23 15:12 Pulse Ox 93 11/22/23 15:12 O2 Del Method Nasal Cannula 11/22/23 15:12 O2 Flow Rate 2 11/22/23 15:12 BMI result Body Mass Index 45.3 Neuro: Other: He is alert and oriented to person and place and year, and day but did not know the month and the date. His speech is somewhat thick. His cranial nerves II through XII are normal. He moves all 4 extremities against gravity. His has some asterixis when he holds up his upper extremities. Reflex are hypoactive. Plantar response are flexor. Neck is supple Results Labs 11/22/23 05:45 11/22/23 05:45 Labs: Short CBC 11/22/23 Range/Units 05:45 WBC 11.1 H (4.8-10.8) X10*3/uL Hgb 12.9 L (14.0-18.0) g/dl Hct 38.0 L (42.0-52.0) % Plt Count 222 (160-400) X10*3/uL BMP 11/22/23 05:45 Sodium 137 Potassium 4.1 D Chloride 98 Carbon Dioxide 24 BUN 34 H Creatinine 2.59 H Calcium 8.0 L Cardiac Enzymes 11/21/23 Range/Units 13:12 Total Creatine Kinase 106 (38-174) U/L Liver Function 11/22/23 Range/Units 05:45 Total Bilirubin 0.6 (0.0-1.0) mg/dL AST 24 (5-37) U/L ALT 12 (0-40) U/L Alkaline Phosphatase 146 H (39-117) U/L Albumin 3.1 L (3.5-5.0) g/dL Urine 11/21/23 Range/Units 16:31 Urine Color Yellow Urine Appearance Clear Urine pH 5.0 (5.0-9.0) Ur Specific [place] 1.020 (1.005-1.025) Urine Protein Trace (Neg-Trace) mg/dL Urine Glucose (UA) Negative (Negative) mg/dL Microbiology Microbiology Results: Microbiology 11/21/23 13:14 Blood - Venous Blood Culture - Preliminary No growth after 24 hours. 11/21/23 13:12 Blood - Venous Blood Culture - Preliminary No growth after 24 hours. Assessment and Plan (1) Encephalopathy: Status: Acute He appears lethargic and encephalopathic but nonfocal examination and bilateral asterixis consistent with a metabolic multifactorial encephalopathy in which alcohol may be an underlying contributor. Would recommend thiamine intravenously. His CT of the head and neck unremarkable. He would check his liver profile and serum ammonia. Watch for impending DTs. EEG is also recommended. (2) CHF exacerbation: Status: Resolved (3) Hypoxia: Status: Resolved (4) Pneumonia: Qualifiers: Aspiration pneumonia type: unspecified Laterality: right Lung location: middle lobe of lung Status: Inactive 63-year-old man admitted with acute hypoxic respiratory failure secondary to community-acquired pneumonia Acute encephalopathy, possible Wernicke's encephalopathy secondary to alcohol abuse Noted encephalopathy, nystagmus, ataxia Ammonia 35, normal VBG, repeat chest x-ray this morning negative for acute abnormality Will start IV thiamine 200 mg t.i.d. Neurology consultation ordered Acute hypoxic respiratory failure secondary to community-acquired pneumonia no sepsis Continue Rocephin and azithromycin Supplemental oxygen as needed Cough suppressant as needed follow blood cx Alcohol abuse with withdrawal Continue phenobarbital protocol IV Thiamine, multivitamin and folic acid Addiction medicine consultation MERLIN. Creatinine trending down Likely secondary to dehydration vs hypoperfusion in light of low BP IV fluids hold melvi and lasix Follow BMP if no improvement consider nephrology consultation Hypokalemia/hypomagnesemia Potassium 3.0 mag 1.3 Replace with oral and IV follow BMP Fall Will need PT consult head and spine cts neg for acute abnormality Diabetes mellitus type 2 Sliding scale, ADA diet Hypertension low BP hold melvi and arb HFrEF no exacerbation Persistent atrial fibrillation stable heart rate continue BB and eliquis Obstructive sleep apnea on cpap at bedtime Morbid obesity. BMI 45.3 Discussed importance of weight management as this may be contributing to worsening of other comorbidities GERD Continue PPI Smoker discussed the importance of cessation NRT offered and accepted DVT prophylaxis with Rosie Attending Dr. Ram Full code Continue hospital stay for tx of resp failure secondary to pneumonia and MERLIN. He requires IV abx and treatment for alcohol abuse. Procedures Date of Service Date of Service: 11/22/23
[2023-11-22] MEDS: cefTRIAXone sodium 1 GM in 0.9 % Sodium Chloride 50 ML IV (15:50)
[2023-11-22 16:17] LABS: Glucose, Whole Blood 143 mg/dL (60-115)
[2023-11-22] MEDS: Azithromycin 500 MG in 0.9 % Sodium Chloride 250 ML 125 MG IV (16:42)
[2023-11-22] MEDS: Acetaminophen 325 MG TABLET 650 MG PO (19:55)
[2023-11-23] VITALS (13 sets, daily range): BP systolic 97–138; BP diastolic 66–81; PULSE 79–108; RESP 16–25; TEMP 36–37.1; O2SAT 70–99
[2023-11-23 02:49] LABS: Glucose, Whole Blood 144 mg/dL (60-115)
--- NOTE | 2023-11-23 03:14 | PC.NURSE ---
pt on cpap, patient desatting in 60, 70s very suddenly. rapid response called at 02:35. pt placed on non-rebreather, oxygen saturation recovered and transitioned to oxymask at 4L sustaining in the 90s. See documented vital signs for further details. Question of aspiration- chest x-ray and vbg obtained. MD verbally ordered to hold fluids. NPO until speech eval. will continue to monitor.
[2023-11-23 03:42] LABS: VBG Base Excess 1.7 mmol/L; VBG HCO3 29 mmol/L (22-26); VBG pCO2 59 mmHg; VBG pO2 59 mmHg
[2023-11-23 03:45] LABS: Venous Blood Gas Refer to POC result
[2023-11-23 06:48] LABS: Ammonia 26 umol/L (13-55)
[2023-11-23 07:01] LABS: Alanine Aminotransferase 13 U/L (0-40); Albumin Level 3.1 g/dL (3.5-5.0); Alkaline Phosphatase 147 U/L (39-117); Anion Gap 15 (12-20); Aspartate Amino Transferase 27 U/L (5-37); Bilirubin Direct 0.5 mg/dL (0.0-0.5); Bilirubin Total 0.8 mg/dL (0.0-1.0); Blood Urea Nitrogen 34 mg/dL (9-16); Calcium 8.3 mg/dL (8.4-10.2); Carbon Dioxide 28 mmol/L (22-29); Chloride 100 mmol/L (96-108); Creatinine Clr Calc Pharmacy 59.3; Estimated Glomerular Filt Rate 36; Glucose Random 143 mg/dL (60-115); Potassium 3.5 mmol/L (3.3-5.1); Sodium 139 mmol/L (135-145); Total Protein 6.9 g/dL (6.5-8.0)
[2023-11-23 08:07] LABS: Glucose, Whole Blood 132 mg/dL (60-115)
[2023-11-23] MEDS: FLUoxetine HCl 20 MG CAPSULE 40 MG PO (09:38)
[2023-11-23] MEDS: Folic Acid 1 MG TABLET PO (09:38)
[2023-11-23] MEDS: Gabapentin 300 MG CAPSULE PO ×2 (09:38→20:26)
[2023-11-23] MEDS: Metoprolol Tartrate 50 MG TABLET PO ×2 (09:38→20:26)
[2023-11-23] MEDS: Apixaban 5 MG TABLET PO ×2 (09:38→20:26)
[2023-11-23] MEDS: Multivitamin TABLET 1 TAB PO (09:39)
[2023-11-23] MEDS: Furosemide 40 MG/4 ML VIAL IVPUSH (09:39)
[2023-11-23] MEDS: Nicotine 7 MG PATCH.TD24 TRANSDERMA (09:40)
[2023-11-23] MEDS: PHENobarbitaL 30 MG TABLET 60 MG PO ×2 (09:40→20:26)
[2023-11-23] MEDS: Thiamine HCL 200 MG in 0.9 % Sodium Chloride 100 ML 204 MG IV ×3 (09:47→20:26)
[2023-11-23] MEDS: 0.9 % Sodium Chloride Flush 3 ML SYRINGE IVFLUSH ×2 (09:52→15:16)
--- NOTE | 2023-11-23 10:22 | HO.PM.IMPN ---
Subjective Subjective Date of Service: 11/23/23 Review of Systems Follow-up encephalopathy, alcohol abuse more awake and aware today Physical Exam Vital Signs: Vital Signs: Last Vital Signs Temp 98.7 F 11/23/23 08:00 Pulse 85 11/23/23 08:00 Resp 20 11/23/23 08:00 BP 127/77 11/23/23 08:00 Pulse Ox 94 11/23/23 08:00 O2 Del Method Nasal Cannula 11/23/23 08:00 O2 Flow Rate 3 11/23/23 08:00 BMI result Body Mass Index 45.3 Appearing in no acute distress lung sounds are clear to auscultation heart regular rate rhythm, clear S1, S2 positive bowel sounds, abdomen is soft, nontender, obese neuro patient is alert x3, no focal deficits Objective Data Active Medications Acetaminophen (Acetaminophen 325 Mg Tablet) 650 mg PO Q6H PRN PRN Reason: Pain, Mild (Pain Scale 1-3) Last Admin: 11/22/23 19:55 Dose: 650 mg Documented By: DORINDA Albuterol/Ipratropium (Albuterol/Iprat 2.5/0.5mg 3 Ml Ampul.Neb) 3 ml INHALE Q3H PRN PRN Reason: Shortness of Breath/Wheezing Apixaban (Apixaban 5 Mg Tablet) 5 mg PO BID COUNTS INCLUDE 234 BEDS AT THE [facility] Last Admin: 11/23/23 09:38 Dose: 5 mg Documented By: EDDIE Fluoxetine HCl (Fluoxetine Hcl 20 Mg Capsule) 40 mg PO DAILY COUNTS INCLUDE 234 BEDS AT THE [facility] Last Admin: 11/23/23 09:38 Dose: 40 mg Documented By: EDDIE Folic Acid (Folic Acid 1 Mg Tablet) 1 mg PO DAILY COUNTS INCLUDE 234 BEDS AT THE [facility] Last Admin: 11/23/23 09:38 Dose: 1 mg Documented By: EDDIE Furosemide (Furosemide 40 Mg/4 Ml Vial) 40 mg IVPUSH DAILY COUNTS INCLUDE 234 BEDS AT THE [facility]; Protocol Last Admin: 11/23/23 09:39 Dose: 40 mg Documented By: EDDIE Gabapentin (Gabapentin 300 Mg Capsule) 300 mg PO BID COUNTS INCLUDE 234 BEDS AT THE [facility] Last Admin: 11/23/23 09:38 Dose: 300 mg Documented By: EDDIE Guaifenesin/Dextromethorphan (Guaifenesin Dm 100/10/5 Ml 5 Ml Syrup) 5 ml PO Q4H PRN PRN Reason: Cough Ceftriaxone Sodium 1 gm/ (Sodium Chloride) 50 mls @ 100 mls/hr IV Q24H COUNTS INCLUDE 234 BEDS AT THE [facility] Last Infusion: 11/22/23 16:32 Dose: Infused Documented By: TOM Azithromycin 500 mg/ Sodium (Chloride) 250 mls @ 125 mls/hr IV Q24H COUNTS INCLUDE 234 BEDS AT THE [facility] Last Infusion: 11/22/23 18:58 Dose: Infused Documented By: TOM Lactated Ringer's (Lr) 1,000 mls @ 100 mls/hr IVCONT .Q10H COUNTS INCLUDE 234 BEDS AT THE [facility] Last Infusion: 11/23/23 02:35 Dose: 0 mls/hr Documented By: DORINDA Thiamine HCl 200 mg/ Sodium (Chloride) 102 mls @ 204 mls/hr IV TID COUNTS INCLUDE 234 BEDS AT THE [facility] Last Admin: 11/23/23 09:47 Dose: 204 mls/hr Documented By: EDDIE Metoprolol Tartrate (Metoprolol Tartrate 50 Mg Tablet) 50 mg PO BID COUNTS INCLUDE 234 BEDS AT THE [facility]; Protocol Last Admin: 11/23/23 09:38 Dose: 50 mg Documented By: EDDIE Multivitamins/Vitamin C (Multivitamin Tablet) 1 tab PO DAILY COUNTS INCLUDE 234 BEDS AT THE [facility] Last Admin: 11/23/23 09:39 Dose: 1 tab Documented By: EDDIE Nicotine (Nicotine 7 Mg Patch.Td24) 7 mg TRANSDERMA DAILY COUNTS INCLUDE 234 BEDS AT THE [facility] Last Admin: 11/23/23 09:40 Dose: 7 mg Documented By: EDDIE Omeprazole (Omeprazole 40 Mg Capsule.Dr) 40 mg PO DAILY@0630 COUNTS INCLUDE 234 BEDS AT THE [facility] Last Admin: 11/23/23 05:33 Dose: Not Given Documented By: DORINDA Non-Admin Reason: per MD NPO Ondansetron HCl (Ondansetron Hcl 4 Mg/2 Ml Vial) 4 mg IVPUSH Q8H PRN PRN Reason: Nausea and Vomiting Pharmacy Consult (Consult Rx Etoh Phenob Im/Po) 1 each MISCELLANE ONCE PRN; Protocol PRN Reason: Consult order Phenobarbital (Phenobarbital 30 Mg Tablet) 60 mg PO BID COUNTS INCLUDE 234 BEDS AT THE [facility]; Protocol Stop: 11/23/23 21:01 Last Admin: 11/23/23 09:40 Dose: 60 mg Documented By: EDDIE Phenobarbital (Phenobarbital 30 Mg Tablet) 30 mg PO BID COUNTS INCLUDE 234 BEDS AT THE [facility]; Protocol Stop: 11/25/23 21:01 Phenobarbital (Phenobarbital 30 Mg Tablet) 30 mg PO DAILY COUNTS INCLUDE 234 BEDS AT [facility]; Protocol Stop: 11/27/23 09:01 Sodium Chloride (0.9 % Sodium Chloride Flush 3 Ml Syringe) 3 ml IVFLUSH QSHIFT COUNTS INCLUDE 234 BEDS AT THE [facility] Last Admin: 11/23/23 09:52 Dose: 3 ml Documented By: EDDIE Labs 11/22/23 05:45 11/23/23 05:58 Labs: Laboratory Results - last 24 hr 11/21/23 11/22/23 11/22/23 22:10 11:43 16:10 VBG pH VBG pCO2 VBG pO2 VBG HCO3 VBG O2 Saturation VBG Base Excess Anion Gap Estim Creat Clear Calc Estimated GFR POC Glucose 133 H 122 H 143 H Random Glucose Calcium Total Bilirubin Direct Bilirubin AST ALT Alkaline Phosphatase Ammonia Total Protein Albumin 11/23/23 11/23/23 11/23/23 02:44 03:33 05:58 VBG pH 7.30 L VBG pCO2 59 VBG pO2 59 VBG HCO3 29 H VBG O2 Saturation 87.0 VBG Base Excess 1.7 Anion Gap 15 Estim Creat Clear Calc 59.3 Estimated GFR 36 POC Glucose 144 H Random Glucose 143 H Calcium 8.3 L Total Bilirubin 0.8 Direct Bilirubin 0.5 AST 27 ALT 13 Alkaline Phosphatase 147 H Ammonia 26 Total Protein 6.9 Albumin 3.1 L 11/23/23 07:53 VBG pH VBG pCO2 VBG pO2 VBG HCO3 VBG O2 Saturation VBG Base Excess Anion Gap Estim Creat Clear Calc Estimated GFR POC Glucose 132 H Random Glucose Calcium Total Bilirubin Direct Bilirubin AST ALT Alkaline Phosphatase Ammonia Total Protein Albumin Microbiology Microbiology Results: Microbiology 11/21/23 13:14 Blood Culture - Preliminary Blood - Venous No growth after 24 hours. 11/21/23 13:12 Blood Culture - Preliminary Blood - Venous No growth after 24 hours. Assessment and Plan (1) CHF exacerbation: Status: Resolved (2) Hypoxia: Status: Resolved (3) Pneumonia: Status: Inactive Assessment and Plan: 63-year-old man admitted with acute hypoxic respiratory failure secondary to community-acquired pneumonia ? aspiration choked on pudding at 0300 speech therapy consult pending keep NPO for now Acute encephalopathy, possible Wernicke's encephalopathy secondary to alcohol abuse Noted encephalopathy, nystagmus, ataxia Ammonia 35, normal VBG, repeat chest x-ray negative for acute abnormality continue IV thiamine 200 mg t.i.d. Neurology consultation> rec EEG (patient refused) and IV thiamine Acute hypoxic respiratory failure secondary to community-acquired pneumonia no sepsis Continue Rocephin and azithromycin Supplemental oxygen as needed Cough suppressant as needed blood cx neg after 24hrs Alcohol abuse with withdrawal Continue phenobarbital protocol IV Thiamine, multivitamin and folic acid Addiction medicine consultation pending MERLIN. Creatinine trending down Likely secondary to dehydration vs hypoperfusion in light of low BP IV fluids hold melvi and lasix Follow BMP if no improvement consider nephrology consultation Hypokalemia/hypomagnesemia > Resolved Replace with oral and IV follow BMP Fall Will need PT consult head and spine cts neg for acute abnormality Diabetes mellitus type 2 Sliding scale, ADA diet Hypertension low BP hold melvi and arb HFrEF no exacerbation Persistent atrial fibrillation stable heart rate continue BB and catarino Obstructive sleep apnea on cpap at bedtime Morbid obesity. BMI 45.3 Discussed importance of weight management as this may be contributing to worsening of other comorbidities GERD Continue PPI Smoker discussed the importance of cessation NRT offered and accepted DVT prophylaxis with Catar[place] Attending Dr. Ram Full code Continue hospital stay for tx of resp failure secondary to pneumonia and MERLIN. He requires IV abx and treatment for alcohol abuse. Quality Stroke Does the patient have a stroke diagnosis?: No VTE Prior VTE?: No VTE Risk Level:: Medical - moderate - high VTE Device Contraindication: Treatment Not Indicated VTE Drug Contraindication: N/A - Med Ordered
[2023-11-23 11:21] LABS: Glucose, Whole Blood 103 mg/dL (60-115)
[2023-11-23] MEDS: Acetaminophen 325 MG TABLET 650 MG PO ×2 (13:17→20:08)
[2023-11-23] MEDS: cefTRIAXone sodium 1 GM in 0.9 % Sodium Chloride 50 ML IV (15:11)
--- NOTE | 2023-11-23 15:40 | MHC.RECOVRN ---
Met with pt in 471 after consult placed to Addiction Medicine for alcohol use. Pt had presented to the ED after alcohol use and a fall with a positive headstrike. Upon evaluation, pt admitted for CHF and pneumonia. Pt also with encephalopathy, becoming more clear. Pt currently on phenobarbital protocol. Pt laying in bed, eyes closed, wakes to voice, engages in conversation. Pt reports feeling okay, reports withdrawal symptoms are managed. Pt reports alcohol use, 10 nips Fireball daily plus one 12 ounce beer. Pt reports continuing to attempt to reduce use. Discussed outpatient supports and resources, including [facility]. Pt reports he has taken naltrexone in the past with positive results. Reports he might be interested in restarting. Pt would like to look over resources and think about options before making a decision. Written resources left at bedside with patient. Pt denies questions or concerns for t/w. Will follow up tomorrow.
--- NOTE | 2023-11-23 16:33 | MHC.CM.PN ---
EMR reviewed and per MD rounds, pt is not medically cleared for discharge due to management of pneumonia and MERLIN.
[2023-11-23 16:47] LABS: Glucose, Whole Blood 138 mg/dL (60-115)
[2023-11-23] MEDS: Azithromycin 500 MG in 0.9 % Sodium Chloride 250 ML 125 MG IV (17:16)
--- NOTE | 2023-11-23 17:20 | MHC.SL.SWA ---
Speech Pathologist Impression: Dysphagia secondary to incomplete dentition Risk of Aspiration Due to: History of Pneumonia Dysphasia Diet Status: UPGRADE from NPO Liquid Consistency and Strategies for Safe Swallow: Liquid Intake Recommendation: Thin Liquid Intake Strategies: Small Sips Solid Food Consistency: Dietary Recommendations: Chopped/Advanced (NDD3) Oral Medication Intake: Whole with Liquid Please contact the pharmacy regarding appropriate crushable or liquid drug formulations that are available whenever modified delivery is recommended. Compensatory Strategies and Precautions to be Taken for Safe Swallow: Sitting Upright (90 deg) Small Bites and Sips Avoid Specific Foods Supervision While Eating and Drinking for Safe Swallow: Total Assistance (1:1) Foods to Avoid: hard, sticky, tough to chew foods Swallowing Recommended Treatments: Compens. Strategy Educat. Recommendation for Speech: Inpatient Speech Therapy Comment: Recommend CHOPPED/ADVANCED solids, THIN liquids, and pills whole w/ water. Recommend full supervision for meals today to monitor toleration of diet d/t recent reported choking incident. Ensure patient is seated UPRIGHT for all PO. MOBILE HOME MECHANIC to visit again tomorrow. Family Sociologist Clinican/Clinical Fellow: No Supervisory Statement: I have reviewed and agree with the student/clinical fellow's documentation: N/A Speech Language Pathologist: Merissa Calderón M.A., CCC-MOBILE HOME MECHANIC
[2023-11-23] MEDS: Lactated Ringers 1,000 ML 100 ML IVCONT ×2 (17:21→23:14)
[2023-11-23 20:25] LABS: Glucose, Whole Blood 134 mg/dL (60-115)
[2023-11-24 03:29] VITALS: BP 133/73; PULSE 87; RESP 20; TEMP 36.1; O2SAT 96
[2023-11-24] MEDS: Omeprazole 40 MG CAPSULE.DR PO (06:26)
[2023-11-24 07:01] LABS: Glucose, Whole Blood 97 mg/dL (60-115)
[2023-11-24 07:37] VITALS: BP 119/74; PULSE 86; RESP 20; TEMP 36.6; O2SAT 96
[2023-11-24] MEDS: Folic Acid 1 MG TABLET PO (07:55)
[2023-11-24] MEDS: Furosemide 40 MG/4 ML VIAL IVPUSH (07:55)
[2023-11-24] MEDS: Thiamine HCL 200 MG in 0.9 % Sodium Chloride 100 ML IV ×3 (07:55→21:13)
[2023-11-24] MEDS: Multivitamin TABLET 1 TAB PO (07:56)
[2023-11-24] MEDS: FLUoxetine HCl 20 MG CAPSULE 40 MG PO (07:56)
[2023-11-24] MEDS: Metoprolol Tartrate 50 MG TABLET PO ×2 (07:56→21:14)
[2023-11-24] MEDS: Nicotine 7 MG PATCH.TD24 TRANSDERMA (07:56)
[2023-11-24] MEDS: Gabapentin 300 MG CAPSULE PO ×2 (07:56→21:14)
[2023-11-24] MEDS: PHENobarbitaL 30 MG TABLET PO ×2 (07:57→21:14)
[2023-11-24] MEDS: Apixaban 5 MG TABLET PO ×2 (07:58→21:14)
[2023-11-24 09:03] LABS: Anion Gap 16 (12-20); Blood Urea Nitrogen 25 mg/dL (9-16); Calcium 8.1 mg/dL (8.4-10.2); Carbon Dioxide 26 mmol/L (22-29); Chloride 101 mmol/L (96-108); Creatinine Clr Calc Pharmacy 94.7; Estimated Glomerular Filt Rate > 60; Glucose Random 115 mg/dL (60-115); Potassium 3.8 mmol/L (3.3-5.1); Sodium 139 mmol/L (135-145)
[2023-11-24 10:52] LABS: Glucose, Whole Blood 146 mg/dL (60-115)
[2023-11-24 11:23] VITALS: BP 117/56; PULSE 81; RESP 20; TEMP 36.7; O2SAT 94
--- NOTE | 2023-11-24 14:18 | HO.PM.IMPN ---
Subjective Subjective Date of Service: 11/24/23 Interval History: Seen and examined this morning Follow-up for encephalopathy, alcohol withdrawal Patient awake, alert this morning, no specific complaints Review of Systems Review of Systems: Yes all other systems are reviewed and are negative Constitutional Constitutional: Denies fever(s) Cardiovascular Cardiovascular: Denies chest pain Physical Exam Vital Signs: Vital Signs: Last Vital Signs Temp 98.0 F 11/24/23 11:23 Pulse 81 11/24/23 11:23 Resp 20 11/24/23 11:23 BP 117/56 L 11/24/23 11:23 Pulse Ox 94 11/24/23 11:23 O2 Del Method Nasal Cannula 11/24/23 11:23 O2 Flow Rate 2 11/24/23 11:23 BMI result Body Mass Index 45.3 Const: General: cooperative, comfortable, alert and awake Nutritional Appearance: obese Orientation/consciousness: patient oriented x3 Resp: Effort & Inspection: normal respiratory effort, able to speak in complete sentences, no respiratory distress and no use of accessory muscles Cardio: Rate: regular rate GI: Inspection: No distended Palpation (GI): Soft to palpation Neuro: Other: Grossly nonfocal, able to move all 4 extremities spontaneously General: patient oriented x3 Extrem: Other: Trace leg edema Objective Data Active Medications Acetaminophen (Acetaminophen 325 Mg Tablet) 650 mg PO Q6H PRN PRN Reason: Pain, Mild (Pain Scale 1-3) Last Admin: 11/23/23 20:08 Dose: 650 mg Documented By: DORINDA Albuterol/Ipratropium (Albuterol/Iprat 2.5/0.5mg 3 Ml Ampul.Neb) 3 ml INHALE Q3H PRN PRN Reason: Shortness of Breath/Wheezing Apixaban (Apixaban 5 Mg Tablet) 5 mg PO BID [facility] Last Admin: 11/24/23 07:58 Dose: 5 mg Documented By: ALIA Fluoxetine HCl (Fluoxetine Hcl 20 Mg Capsule) 40 mg PO DAILY [facility] Last Admin: 11/24/23 07:56 Dose: 40 mg Documented By: ALIA Folic Acid (Folic Acid 1 Mg Tablet) 1 mg PO DAILY [facility] Last Admin: 11/24/23 07:55 Dose: 1 mg Documented By: ALIA Furosemide (Furosemide 40 Mg/4 Ml Vial) 40 mg IVPUSH DAILY [facility]; Protocol Last Admin: 11/24/23 07:55 Dose: 40 mg Documented By: ALIA Gabapentin (Gabapentin 300 Mg Capsule) 300 mg PO BID [facility] Last Admin: 11/24/23 07:56 Dose: 300 mg Documented By: ALIA Glucose (Glucose Gel 15 Gm Gel..Gram.) 15 gm PO Q15M PRN; Protocol PRN Reason: per Hypoglycemia Standing Ord. Guaifenesin/Dextromethorphan (Guaifenesin Dm 100/10/5 Ml 5 Ml Syrup) 5 ml PO Q4H PRN PRN Reason: Cough Ceftriaxone Sodium 1 gm/ (Sodium Chloride) 50 mls @ 100 mls/hr IV Q24H [facility] Last Infusion: 11/23/23 15:51 Dose: Infused Documented By: EDDIE Azithromycin 500 mg/ Sodium (Chloride) 250 mls @ 125 mls/hr IV Q24H [facility] Last Infusion: 11/23/23 19:19 Dose: Infused Documented By: DORINDA Thiamine HCl 200 mg/ Sodium (Chloride) 102 mls @ 204 mls/hr IV TID [facility] Last Infusion: 11/24/23 10:14 Dose: Infused Documented By: ALIA Dextrose (D10) 250 mls @ 750 mls/hr IV Q15M PRN; Protocol PRN Reason: per Hypoglycemia Standing Ord. Insulin Human Lispro (Insulin Lispro 100 Unit/Ml 3 Ml Vial) 0 unit SUBCUT QIDACHS [facility]; Protocol Last Admin: 11/24/23 10:53 Dose: Not Given Documented By: IGGY Non-Admin Reason: No Insulin Coverage Metoprolol Tartrate (Metoprolol Tartrate 50 Mg Tablet) 50 mg PO BID [facility]; Protocol Last Admin: 11/24/23 07:56 Dose: 50 mg Documented By: ALIA Multivitamins/Vitamin C (Multivitamin Tablet) 1 tab PO DAILY [facility] Last Admin: 11/24/23 07:56 Dose: 1 tab Documented By: ALIA Nicotine (Nicotine 7 Mg Patch.Td24) 7 mg TRANSDERMA DAILY [facility] Last Admin: 11/24/23 07:56 Dose: 7 mg Documented By: ALIA Omeprazole (Omeprazole 40 Mg Capsule.) 40 mg PO DAILY@629 [facility] Last Admin: 11/24/23 06:26 Dose: 40 mg Documented By: DORINDA Ondansetron HCl (Ondansetron Hcl 4 Mg/2 Ml Vial) 4 mg IVPUSH Q8H PRN PRN Reason: Nausea and Vomiting Pharmacy Consult (Consult Rx Etoh Phenob Im/Po) 1 each MISCELLANE ONCE PRN; Protocol PRN Reason: Consult order Phenobarbital (Phenobarbital 30 Mg Tablet) 30 mg PO BID [facility]; Protocol Stop: 11/25/23 21:01 Last Admin: 11/24/23 07:57 Dose: 30 mg Documented By: ALIA Phenobarbital (Phenobarbital 30 Mg Tablet) 30 mg PO DAILY [facility]; Protocol Stop: 11/27/23 09:01 Sodium Chloride (0.9 % Sodium Chloride Flush 3 Ml Syringe) 3 ml IVFLUSH QSHIFT [facility] Last Admin: 11/24/23 07:57 Dose: Not Given Documented By: ALIA Non-Admin Reason: IV Running Labs 11/22/23 05:45 11/24/23 08:35 Labs: Laboratory Results - last 24 hr 11/23/23 11/23/23 11/24/23 16:36 20:14 06:54 Anion Gap Estim Creat Clear Calc Estimated GFR POC Glucose 138 H 134 H 97 Random Glucose Calcium 11/24/23 11/24/23 08:35 10:45 Anion Gap 16 Estim Creat Clear Calc 94.7 Estimated GFR > 60 POC Glucose 146 H Random Glucose 115 Calcium 8.1 L Microbiology Microbiology Results: Microbiology 11/21/23 13:14 Blood Culture - Preliminary Blood - Venous No growth after 48 hours. 11/21/23 13:12 Blood Culture - Preliminary Blood - Venous No growth after 48 hours. Assessment and Plan (1) Encephalopathy: Status: Acute (2) Alcohol withdrawal: Status: Acute (3) Pneumonia: Status: Inactive Assessment and Plan: 63-year-old man admitted with acute hypoxic respiratory failure secondary to community-acquired pneumonia ? aspiration choked on pudding at 0300 Seen by speech therapy- recommend chopped/advanced diet; patient currently tolerating Speech therapy to follow Acute encephalopathy, possible Wernicke's encephalopathy secondary to alcohol abuse Noted encephalopathy, nystagmus, ataxia. Improving Ammonia 35, normal VBG, repeat chest x-ray negative for acute abnormality continue IV thiamine 200 mg t.i.d. Neurology consultation> rec EEG (patient refused) and IV thiamine Acute hypoxic respiratory failure secondary to community-acquired pneumonia no sepsis Continue Rocephin and azithromycin Supplemental oxygen as needed- desaturated to 86% on room air during physical therapy, currently saturating mid 90s on 2 L. Cough suppressant as needed blood cx neg to date Alcohol abuse with withdrawal Continue phenobarbital protocol IV Thiamine, multivitamin and folic acid Seen by addiction Medicine, considering naltrexone MERLIN. resolved Likely secondary to dehydration vs hypoperfusion in light of low BP s/p IVF AIDAN-inhibitor on hold Hypokalemia/hypomagnesemia > Resolved Replace with oral and IV follow BMP Fall head and spine cts neg for acute abnormality PT rec short-term rehab due to decreased strength and balance and increasing risk of falls, patient declines and prefers to return home with services Diabetes mellitus type 2 Sliding scale, ADA diet Hypertension low BP Lisinopril and Norvasc have been on hold HFrEF no exacerbation Resume home dose of Lasix, 30 mg daily Persistent atrial fibrillation stable heart rate continue BB and shaunis Obstructive sleep apnea on cpap at bedtime Morbid obesity. BMI 45.3 Discussed importance of weight management as this may be contributing to worsening of other comorbidities GERD Continue PPI Smoker discussed the importance of cessation NRT offered and accepted DVT prophylaxis with Rosie Attending Dr. Ram Full code Continue hospital stay for tx of resp failure secondary to pneumonia and MERLIN. He requires IV abx and treatment for alcohol abuse. Quality Stroke Does the patient have a stroke diagnosis?: No VTE Prior VTE?: No VTE Risk Level:: Medical - moderate - high VTE Device Contraindication: Treatment Not Indicated VTE Drug Contraindication: N/A - Med Ordered
[2023-11-24] MEDS: Acetaminophen 325 MG TABLET 650 MG PO (14:23)
[2023-11-24] MEDS: cefTRIAXone sodium 1 GM in 0.9 % Sodium Chloride 50 ML IV (14:24)
--- NOTE | 2023-11-24 14:37 | MHC.CM.PN ---
P.TCheyenne garcia rec STR. The patient declines STR. Home care preferences were obtained. The referral were sent. The patient's 1st choice [facility] will provide the home services. SN, PT and OT (for safety with ADLs) will be in place. Patient may need assist with transport.
--- NOTE | 2023-11-24 14:38 | MHC.SL.SWA ---
Speech Pathologist Impression: Risk of Aspiration Due to: History of Pneumonia Dysphasia Diet Status: Recommend patient be allowed soft breads/sandwiches as a part of continued Chopped/Advanced diet with thin liquids, pills whole with liquid. Liquid Consistency and Strategies for Safe Swallow: Liquid Intake Recommendation: Thin Liquid Intake Strategies: Small Sips Solid Food Consistency: Dietary Recommendations: Chopped/Advanced (NDD3) Additional Modifications to Solid Foods: Recommend CHOPPED/ADVANCED solids, THIN liquids, and pills whole w/ water. Recommend full supervision for meals today to monitor toleration of diet d/t recent reported choking incident. Ensure patient is seated UPRIGHT for all PO. PIPE ORGAN TECHNICIAN to visit again tomorrow. Oral Medication Intake: Whole with Liquid Please contact the pharmacy regarding appropriate crushable or liquid drug formulations that are available whenever modified delivery is recommended. Compensatory Strategies and Precautions to be Taken for Safe Swallow: Sitting Upright (90 deg) Small Bites and Sips Avoid Specific Foods Supervision While Eating and Drinking for Safe Swallow: None Needed Foods to Avoid: hard, sticky, tough to chew foods Swallowing Recommended Treatments: Compens. Strategy Educat. Recommendation for Speech: Inpatient Speech Therapy Comment: Patient seen at lunch meal, however, upon arrival, patient had already consumed all food on tray. Patient reported I am still hungry. I want a tuna fish sandwich but they said I have to talk to speech about that. PIPE ORGAN TECHNICIAN got sandwich from floor stock for patient as trial on soft breads. Patient was able to independently feed self moist ground texture on soft bread without difficulty and eating at a safe pace. Per RN patient is often asking for additional food. Recommend patient be allowed soft breads/sandwiches as a part of continued Chopped/Advanced diet with thin liquids, pills whole with liquid. RD notified of request to allow patient soft sandwiches. Patient presented as appropriately able to eat independently, not presenting at this time as needing 1-1 assistance. Frequency/Duration: Date Range for Service Req: Timeline to reassess: Building Supervisor Clinican/Clinical Fellow: No Supervisory Statement: I have reviewed and agree with the student/clinical fellow's documentation: N/A Speech Language Pathologist: Neisha Michel M.A., CCC-PIPE ORGAN TECHNICIAN
[2023-11-24 15:20] VITALS: BP 119/72; PULSE 90; RESP 19; TEMP 36.7; O2SAT 97
[2023-11-24 16:18] LABS: Glucose, Whole Blood 153 mg/dL (60-115)
[2023-11-24] MEDS: Azithromycin 500 MG in 0.9 % Sodium Chloride 250 ML 125 MG IV (16:46)
[2023-11-24 20:00] VITALS: BP 113/68; PULSE 96; RESP 18; TEMP 36.9; O2SAT 93
[2023-11-24 20:29] LABS: Glucose, Whole Blood 182 mg/dL (60-115)
[2023-11-24 21:14] VITALS: BP 112/52; PULSE 93
[2023-11-24] MEDS: 0.9 % Sodium Chloride Flush 3 ML SYRINGE IVFLUSH (21:15)
[2023-11-25] VITALS (10 sets, daily range): BP systolic 131–145; BP diastolic 61–91; PULSE 78–125; RESP 16–20; TEMP 36.1–36.3; O2SAT 90–98
[2023-11-25] MEDS: Omeprazole 40 MG CAPSULE.DR PO (05:59)
[2023-11-25 07:41] LABS: Glucose, Whole Blood 128 mg/dL (60-115)
[2023-11-25] MEDS: 0.9 % Sodium Chloride Flush 3 ML SYRINGE IVFLUSH ×2 (10:05→20:11)
[2023-11-25] MEDS: FLUoxetine HCl 20 MG CAPSULE 40 MG PO (10:06)
[2023-11-25] MEDS: Furosemide 40 MG TABLET 30 MG PO (10:06)
[2023-11-25] MEDS: Gabapentin 300 MG CAPSULE PO ×2 (10:06→20:10)
[2023-11-25] MEDS: PHENobarbitaL 30 MG TABLET PO ×2 (10:06→20:10)
[2023-11-25] MEDS: Multivitamin TABLET 1 TAB PO (10:06)
[2023-11-25] MEDS: Metoprolol Tartrate 50 MG TABLET PO ×2 (10:07→20:10)
[2023-11-25] MEDS: Apixaban 5 MG TABLET PO ×2 (10:07→20:10)
[2023-11-25] MEDS: Nicotine 7 MG PATCH.TD24 TRANSDERMA (10:07)
[2023-11-25] MEDS: Thiamine HCL 200 MG in 0.9 % Sodium Chloride 100 ML 204 MG IV ×2 (10:07→14:14)
[2023-11-25] MEDS: Folic Acid 1 MG TABLET PO (10:07)
--- NOTE | 2023-11-25 11:30 | MHC.SL.SWA ---
Speech Pathologist Impression: Oral phase dysphagia, risk of aspiration Risk of Aspiration Due to: History of Pneumonia Dysphasia Diet Status: Upgrade to REGULAR solids Liquid Consistency and Strategies for Safe Swallow: Liquid Intake Recommendation: Thin Liquid Intake Strategies: Small Sips Solid Food Consistency: Dietary Recommendations: Regular Additional Modifications to Solid Foods: Chew food well, alternate with sips of liquid Oral Medication Intake: Whole with Liquid Please contact the pharmacy regarding appropriate crushable or liquid drug formulations that are available whenever modified delivery is recommended. Compensatory Strategies and Precautions to be Taken for Safe Swallow: Sitting Upright (90 deg) Double Swallow Small Bites and Sips Alternate Liquids/Solids Rate of Ingestion Change Avoid Specific Foods Supervision While Eating and Drinking for Safe Swallow: Total Supervision (1:1) Foods to Avoid: hard, sticky, tough to chew foods Swallowing Recommended Treatments: Compens. Strategy Educat. Recommendation for Speech: Inpatient Speech Therapy Human Service Technician Clinican/Clinical Fellow: No Supervisory Statement: I have reviewed and agree with the student/clinical fellow's documentation: N/A Speech Language Pathologist: Herminia Dejesus M.A., CCC-DEVELOPMENT ENG
[2023-11-25 11:46] LABS: Glucose, Whole Blood 139 mg/dL (60-115)
--- NOTE | 2023-11-25 14:12 | P.PNIM_ITS ---
Subjective Subjective Date of Service: 11/25/23 Interval History: Seen and examined this morning Follow-up for pneumonia, alcohol withdrawal, encephalopathy Patient awake, alert Does not want to go to rehab but currently to assist to get to chair and back Review of Systems Review of Systems: Yes all other systems are reviewed and are negative Constitutional Constitutional: Denies fever(s) Physical Exam 2 Vital Signs: Vital Signs: Last Vital Signs Temp 97.0 F 11/25/23 11:30 Pulse 79 11/25/23 11:30 Resp 20 11/25/23 11:30 BP 133/77 11/25/23 11:30 Pulse Ox 94 11/25/23 11:30 O2 Del Method Nasal Cannula 11/25/23 11:30 O2 Flow Rate 2 11/25/23 11:30 BMI result Body Mass Index 45.3 Const: General: cooperative, comfortable, alert and awake Nutritional Appearance: obese Orientation/consciousness: patient oriented x3 Resp: Effort & Inspection: normal respiratory effort, able to speak in complete sentences, no respiratory distress and no use of accessory muscles Cardio: Rate: regular rate GI: Inspection: No distended Palpation (GI): Soft to palpation Neuro: Other: Grossly nonfocal, able to move all 4 extremities spontaneously General: patient oriented x3 Extrem: Other: Trace leg edema Objective Data Active Medications Acetaminophen (Acetaminophen 325 Mg Tablet) 650 mg PO Q6H PRN PRN Reason: Pain, Mild (Pain Scale 1-3) Last Admin: 11/24/23 14:23 Dose: 650 mg Documented By: ALIA Albuterol/Ipratropium (Albuterol/Iprat 2.5/0.5mg 3 Ml Ampul.Neb) 3 ml INHALE Q3H PRN PRN Reason: Shortness of Breath/Wheezing Apixaban (Apixaban 5 Mg Tablet) 5 mg PO BID [facility] Last Admin: 11/25/23 10:07 Dose: 5 mg Documented By: ALIA Fluoxetine HCl (Fluoxetine Hcl 20 Mg Capsule) 40 mg PO DAILY [facility] Last Admin: 11/25/23 10:06 Dose: 40 mg Documented By: ALIA Folic Acid (Folic Acid 1 Mg Tablet) 1 mg PO DAILY [facility] Last Admin: 11/25/23 10:07 Dose: 1 mg Documented By: LAIA Furosemide (Furosemide 40 Mg Tablet) 30 mg PO DAILY [facility]; Protocol Last Admin: 11/25/23 10:06 Dose: 30 mg Documented By: ALIA Gabapentin (Gabapentin 300 Mg Capsule) 300 mg PO BID [facility] Last Admin: 11/25/23 10:06 Dose: 300 mg Documented By: ALIA Glucose (Glucose Gel 15 Gm Gel..Gram.) 15 gm PO Q15M PRN; Protocol PRN Reason: per Hypoglycemia Standing Ord. Guaifenesin/Dextromethorphan (Guaifenesin Dm 100/10/5 Ml 5 Ml Syrup) 5 ml PO Q4H PRN PRN Reason: Cough Ceftriaxone Sodium 1 gm/ (Sodium Chloride) 50 mls @ 100 mls/hr IV Q24H [facility] Last Infusion: 11/24/23 15:00 Dose: Infused Documented By: ALIA Azithromycin 500 mg/ Sodium (Chloride) 250 mls @ 125 mls/hr IV Q24H [facility] Last Infusion: 11/24/23 19:43 Dose: Infused Documented By: MALCOLM Thiamine HCl 200 mg/ Sodium (Chloride) 102 mls @ 204 mls/hr IV TID [facility] Last Infusion: 11/25/23 10:57 Dose: Infused Documented By: ALIA Dextrose (D10) 250 mls @ 750 mls/hr IV Q15M PRN; Protocol PRN Reason: per Hypoglycemia Standing Ord. Insulin Human Lispro (Insulin Lispro 100 Unit/Ml 3 Ml Vial) 0 unit SUBCUT QIDACHS [facility]; Protocol Last Admin: 11/25/23 11:52 Dose: Not Given Documented By: IGGY Non-Admin Reason: No Insulin Coverage Metoprolol Tartrate (Metoprolol Tartrate 50 Mg Tablet) 50 mg PO BID [facility]; Protocol Last Admin: 11/25/23 10:07 Dose: 50 mg Documented By: ALIA Multivitamins/Vitamin C (Multivitamin Tablet) 1 tab PO DAILY [facility] Last Admin: 11/25/23 10:06 Dose: 1 tab Documented By: ALIA Nicotine (Nicotine 7 Mg Patch.Td24) 7 mg TRANSDERMA DAILY [facility] Last Admin: 11/25/23 10:07 Dose: 7 mg Documented By: ALIA Omeprazole (Omeprazole 40 Mg Capsule.) 40 mg PO DAILY@629 [facility] Last Admin: 11/25/23 05:59 Dose: 40 mg Documented By: MALCOLM Ondansetron HCl (Ondansetron Hcl 4 Mg/2 Ml Vial) 4 mg IVPUSH Q8H PRN PRN Reason: Nausea and Vomiting Pharmacy Consult (Consult Rx Etoh Phenob Im/Po) 1 each MISCELLANE ONCE PRN; Protocol PRN Reason: Consult order Phenobarbital (Phenobarbital 30 Mg Tablet) 30 mg PO BID [facility]; Protocol Stop: 11/25/23 21:01 Last Admin: 11/25/23 10:06 Dose: 30 mg Documented By: ALIA Phenobarbital (Phenobarbital 30 Mg Tablet) 30 mg PO DAILY [facility]; Protocol Stop: 11/27/23 09:01 Sodium Chloride (0.9 % Sodium Chloride Flush 3 Ml Syringe) 3 ml IVFLUSH QSHIFT [facility] Last Admin: 11/25/23 10:05 Dose: 3 ml Documented By: ALIA Labs 11/22/23 05:45 11/24/23 08:35 Labs: Laboratory Results - last 24 hr 11/24/23 11/24/23 11/25/23 16:11 20:19 07:34 POC Glucose 153 H 182 H 128 H 11/25/23 11:32 POC Glucose 139 H Assessment and Plan (1) Pneumonia: Status: Inactive Assessment and Plan: This is a 63-year-old man admitted with acute hypoxic respiratory failure secondary to community-acquired pneumonia dysphagia. improved. Likely due encephalopathy Speech following, advanced back to regular diet and tolerating well Acute encephalopathy, possible Wernicke's encephalopathy secondary to alcohol abuse Noted encephalopathy, nystagmus, ataxia. Improving Ammonia 35, normal VBG, repeat chest x-ray negative for acute abnormality continue IV thiamine 200 mg t.i.d. - can transition to p.o. Neurology consultation> rec EEG (patient refused) Acute hypoxic respiratory failure secondary to community-acquired pneumonia no sepsis Continue Rocephin and azithromycin Supplemental oxygen as needed- will attempt to wean oxygen Cough suppressant as needed blood cx neg to date Alcohol abuse with withdrawal Continue phenobarbital protocol IV Thiamine, multivitamin and folic acid Seen by addiction Medicine, considering naltrexone MERLIN. resolved Likely secondary to dehydration vs hypoperfusion in light of low BP s/p IVF AIDAN-inhibitor on hold Hypokalemia/hypomagnesemia > Resolved Replace with oral and IV follow BMP Fall head and spine cts neg for acute abnormality PT rec short-term rehab due to decreased strength and balance and increasing risk of falls, patient declines and prefers to return home with services. pt still 2 assist and unable to ambulate independently Diabetes mellitus type 2 Sliding scale, ADA diet Hypertension low BP Lisinopril and Norvasc have been on hold HFrEF no exacerbation Resume home dose of Lasix, 30 mg daily Persistent atrial fibrillation stable heart rate continue BB and eliquis Obstructive sleep apnea on cpap at bedtime Morbid obesity. BMI 45.3 Discussed importance of weight management as this may be contributing to worsening of other comorbidities GERD Continue PPI Smoker discussed the importance of cessation NRT offered and accepted DVT prophylaxis with Rosie Attending Dr. Ram Full code Continue hospital stay for tx of resp failure secondary to pneumonia (2) Pneumonia: Status: Acute Quality Stroke Does the patient have a stroke diagnosis?: No VTE Prior VTE?: No VTE Risk Level:: Medical - moderate - high VTE Device Contraindication: Treatment Not Indicated VTE Drug Contraindication: N/A - Med Ordered
[2023-11-25] MEDS: Acetaminophen 325 MG TABLET 650 MG PO (14:13)
[2023-11-25] MEDS: cefTRIAXone sodium 1 GM in 0.9 % Sodium Chloride 50 ML IV (14:14)
--- NOTE | 2023-11-25 14:46 | MHC.CM.PN ---
EMR reviewed and per MD rounds, pt is not medically cleared for discharge due to management of pneumonia and ETOH withdrawal.
[2023-11-25 16:25] LABS: Glucose, Whole Blood 115 mg/dL (60-115)
[2023-11-25] MEDS: Azithromycin 500 MG in 0.9 % Sodium Chloride 250 ML 125 MG IV (16:56)
[2023-11-25 18:06] LABS: Uric Acid 9.4 mg/dL (3.4-7.0)
[2023-11-25 20:57] LABS: Glucose, Whole Blood 89 mg/dL (60-115)
[2023-11-26] VITALS (8 sets, daily range): BP systolic 134–146; BP diastolic 65–89; PULSE 74–98; RESP 18–20; TEMP 36.1–37.1; O2SAT 92–98
[2023-11-26] MEDS: Omeprazole 40 MG CAPSULE.DR PO (06:19)
[2023-11-26 08:38] LABS: Glucose, Whole Blood 91 mg/dL (60-115)
[2023-11-26] MEDS: PHENobarbitaL 30 MG TABLET PO (09:31)
[2023-11-26] MEDS: Apixaban 5 MG TABLET PO ×2 (09:31→20:39)
[2023-11-26] MEDS: Gabapentin 300 MG CAPSULE PO ×2 (09:31→20:39)
[2023-11-26] MEDS: Multivitamin TABLET 1 TAB PO (09:31)
[2023-11-26] MEDS: Furosemide 40 MG TABLET 30 MG PO (09:32)
[2023-11-26] MEDS: Thiamine HCL 100 MG TABLET PO (09:32)
[2023-11-26] MEDS: Folic Acid 1 MG TABLET PO (09:32)
[2023-11-26] MEDS: FLUoxetine HCl 20 MG CAPSULE 40 MG PO (09:32)
[2023-11-26] MEDS: Metoprolol Tartrate 50 MG TABLET PO ×2 (09:33→20:39)
[2023-11-26] MEDS: 0.9 % Sodium Chloride Flush 3 ML SYRINGE IVFLUSH ×3 (09:33→20:46)
[2023-11-26] MEDS: Acetaminophen 325 MG TABLET 650 MG PO (09:33)
[2023-11-26] MEDS: Nicotine 7 MG PATCH.TD24 TRANSDERMA (09:38)
[2023-11-26 11:53] LABS: Glucose, Whole Blood 120 mg/dL (60-115)
--- NOTE | 2023-11-26 13:15 | PM.DS ---
DS: Providers Provider Date of Service: 11/27/23 Date of admission: 11/21/23 15:33 Date of discharge: 11/27/23 Primary care physician: BABATUNDE Mckoy Consults: 11/21/23 17:12 Addiction Medicine Routine Consulting Provider: Addiction Covering Reason for consultation: ETOH 11/22/23 08:58 Consult to Neurology Routine Consulting Provider: [facility] Reason for consultation: Possible Wernicke's encephalopathy 11/26/23 11:17 Consult to Orthopedics Routine Consulting Provider: [facility] Reason for consultation: right knee pain s/p fall Has provider been notified: No Attending physician on discharge: Josie Tapia Discharging clinician: Jacquelin Mcgee DS: Diagnosis Discharge Diagnosis (1) Pneumonia: Status: Inactive DS: Summary Hospital Course Hospital Course: From the H&P on the day of admission 63-year-old male with multiple medical comorbidities to include alcohol use disorder, was drinking last night and states that he fell backwards from his walker and struck his head without loss of consciousness and is complaining of neck pain and states that he laid on the floor and was able to finally get up at approximately 05:00 this morning denies any abdominal discomfort/chest wall discomfort. Patient is on chronic anticoagulation. He was noted to be hypoxic 85% and placed on oxygen with good response. He as also noted to be mildly hypotensive. He has no fever or leukocytosis, potassium is noted to be 3.0, creatinine 3.38 significantly above his baseline, ethyl alcohol level 64. Patient received phenobarbital, Lasix, Rocephin, potassium in the ER. He will be admitted for further management and treatment of acute hypoxic respiratory failure secondary to pneumonia, MERLIN and fall. Hospital course by problem: Right knee pain due to Right knee effusion X-ray negative for fracture Seen by ortho, patient declined drainage. recommend compression with aidan bandage outpatient follow up if patient elects for drainage dysphagia. resolved Likely due encephalopathy. Resolved as mental status has improved. Speech following, advanced back to regular diet and tolerating well Acute encephalopathy likely multifactorial due to alcohol abuse/withdrawal and underlying infection. Mental status has returned to baseline Has been ambulating with the assistance of a walker in his room He was initially treated with IV thiamine given chronic alcohol use which was then transitioned to p.o. He was seen by Neurology who recommended EEG however the patient refused. brain CT negative Acute hypoxic respiratory failure secondary to community-acquired pneumonia no sepsis treated with IV Rocephin and azithromycin, completed course of antibiotics during hospitalization Supplemental oxygen as needed- required oxygen in the afternoon, off oxygen this morning at rest. Was able to ambulate within his room and did not qualify for supplemental oxygen. blood cx neg to date Alcohol abuse with withdrawal Treated with phenobarbital protocol Seen by addiction Medicine, considering naltrexone. recommend outpatient follow-up in the [facility] Abstinence from alcohol was discussed. MERLIN. resolved Likely secondary to dehydration vs hypoperfusion in light of low BP. AIDAN inhibitor was held during hospitalization and renal function returned to normal with IV fluid. Hypokalemia/hypomagnesemia > Resolved Replace and improved Fall head and spine cts neg for acute abnormality PT rec short-term rehab due to decreased strength and balance and increasing risk of falls, patient declines and prefers to return home with services. Extensive discussion with patient about going to rehab however he is adamant to return home. Was able to ambulate within his room and states that he has a wheelchair and walker at home and that his home is wheelchair accessible due to his son's disability. Hypertension low BP. Lisinopril and Norvasc were initially held during hospitalization. Can be resumed upon discharge Tobacco dependence Smoking cessation has been advised Can be discharged with nicotine patch Time Attestation Discharge Coordination Time (in mins): 40 Quality: Safe Use of Opioids Does Pt have an Active Cancer Diagnosis on the Problem List?: No Quality: Stroke Does the patient have a stroke diagnosis?: No Physical Exam Vital Signs: Vital Signs: Last Vital Signs Temp 97.4 F 11/26/23 11:27 Pulse 88 11/26/23 11:27 Resp 20 11/26/23 11:27 BP 145/67 H 11/26/23 11:27 Pulse Ox 97 11/26/23 11:27 O2 Del Method Nasal Cannula 11/26/23 11:27 O2 Flow Rate 2 11/26/23 11:27 BMI result Body Mass Index 45.3 Const: General: cooperative, comfortable, alert and awake Nutritional Appearance: obese Orientation/consciousness: patient oriented x3 Resp: Effort & Inspection: normal respiratory effort, able to speak in complete sentences, no respiratory distress and no use of accessory muscles Cardio: Rate: regular rate GI: Inspection: No distended Palpation (GI): Soft to palpation Neuro: Other: Grossly nonfocal, able to move all 4 extremities spontaneously General: patient oriented x3 Extrem: Other: right knee swelling, no erythema or warmth joint, right foot pedal edema (h/o ankle fracture, pt reports periodic swelling of foot ) DS: Data Data Completed and Pending Completed studies during hospitalization [Text1]: Procedures Assistance with Respiratory Ventilation, Less than 24 Consecutive Hours, Continuous Positive Airway Pressure (07/13/23) Bypass Trachea to Cutaneous with Tracheostomy Device, Percutaneous Approach (05/30/20) Change Tracheostomy Device in Trachea, External Approach (05/30/20) Detoxification Services for Substance Abuse Treatment (03/30/23) Drainage of Left Lower Lung Lobe, Via Natural or Artificial Opening Endoscopic, Diagnostic (05/30/20) Insertion of Endotracheal Airway into Trachea, Via Natural or Artificial Opening (05/30/20) Insertion of Feeding Device into Stomach, Percutaneous Approach (05/30/20) Insertion of Infusion Device into Right Atrium, Percutaneous Approach (05/30/20) Insertion of Infusion Device into Superior Vena Cava, Percutaneous Approach (05/30/20) Performance of Cardiac Output, Single, Manual (05/30/20) Performance of Urinary Filtration, Intermittent, Less than 6 Hours Per Day (05/30/20) Respiratory Ventilation, Greater than 96 Consecutive Hours (05/30/20) Ultrasonography of Superior Vena Cava, Guidance (05/30/20) Labs on day of discharge: Laboratory Results - last 24 hr 11/25/23 11/25/23 11/25/23 16:07 17:38 20:37 POC Glucose 115 89 Uric Acid 9.4 H 11/26/23 11/26/23 07:54 11:26 POC Glucose 91 120 H Uric Acid Preliminary micro results at discharge 11/21/23 13:14 Blood Culture - Preliminary Blood - Venous No growth after 48 hours. 11/21/23 13:12 Blood Culture - Preliminary Blood - Venous No growth after 48 hours. Discharge Plan Discharge Patient Disposition: Home Health Service Discharge Diagnosis: Toxic metabolic encephalopathy Alcohol withdrawal Pneumonia Right knee joint effusion MERLIN Referrals: Ortiz Deluca, [facility]UR[facility] [Primary Care Provider] - 1 Week Discharge Medications: New nicotine 7 mg/24 hr Patch 24 Hour 7 mg transdermal DAILY Qty: 14 0RF Continued amlodipine 5 mg tablet 5 mg PO DAILY Qty: 90 1RF Eliquis 5 mg tablet 5 mg PO BID Qty: 180 1RF folic acid 1 mg tablet 1 mg PO DAILY Qty: 90 1RF gabapentin 300 mg capsule 300 mg PO BID 30 Days Qty: 60 4RF furosemide 20 mg tablet 30 mg PO DAILY Qty: 135 1RF lisinopril 2.5 mg tablet 2.5 mg PO DAILY Qty: 90 1RF omeprazole 20 mg capsule,delayed release(DR/EC) 40 mg PO DAILY@0630 Qty: 180 1RF rosuvastatin 5 mg tablet 5 mg PO DAILY Qty: 90 1RF metformin 850 mg tablet 850 mg PO DAILY Qty: 90 1RF albuterol sulfate 90 mcg/actuation HFA aerosol inhaler 2 puff inhalation QID PRN (Reason: Wheezing) Qty: 8.5 0RF metoprolol tartrate 50 mg tablet 50 mg PO BID Qty: 180 0RF Protocol: Hold for SBP/HR < HOLD for SBP < : 90 HOLD for HR < : 60 fluoxetine 40 mg capsule 40 mg PO DAILY multivitamin with folic acid [Daily-Carlito (with folic acid)] 400 mcg tablet 1 tab PO DAILY acetaminophen [Tylenol Arthritis Pain] 650 mg tablet extended release 650 mg PO Q12H PRN (Reason: pain) 30 Days Qty: 60 0RF No Action (DME) blood-glucose meter [FreeStyle Lite Meter] Kit See Rx Instructions .ROUTE .MEDSUPPLY Qty: 1 0RF Rx Instructions: check sugar twice a day (DME) lancets [FreeStyle Lancets] 28 gauge misc See Rx Instructions .ROUTE .MEDSUPPLY Qty: 100 2RF Rx Instructions: check sugar twice a day (DME) FreeStyle David 2 Nucla Misc See Rx Instructions .Route Qty: 1 0RF Rx Instructions: tid testing (DME) FreeStyle David 2 Sensor Kit See Rx Instructions .Route Qty: 1 3RF Rx Instructions: tid testing Activity on Discharge: As tolerated Stand Alone Forms: Patient Portal Discharge page Print Language: Estonian Care Plan Goals: See below Health Concerns: Toxic metabolic encephalopathy Alcohol withdrawal Pneumonia Right knee joint effusion MERLIN. Resolved Hypokalemia/hypomagnesemia. Resolved Dysphagia due to encephalopathy. Resolved Plan of Treatment: Recommend to avoid all alcohol use Recommend to stop smoking, can use nicotine patch Completed antibiotics for pneumonia during hospitalization Physical therapy recommended short-term rehab however you have declined have elected to return home with home services including VNA and physical therapy Assessment: See discharge summary
--- NOTE | 2023-11-26 13:16 | P.PNIM_ITS ---
Subjective Subjective Date of Service: 11/26/23 Interval History: Seen and examined this morning Follow-up for encephalopathy, pneumonia Now with right knee pain Has been unable to ambulate independently thus far but has declined short-term rehab and is opting to return home Review of Systems Review of Systems: Yes all other systems are reviewed and are negative Constitutional Constitutional: Denies fever(s) Cardiovascular Cardiovascular: Denies chest pain and Denies dyspnea Respiratory Respiratory: Denies dyspnea Gastrointestinal Gastrointestinal: Denies abdominal pain Physical Exam 2 Vital Signs: Vital Signs: Last Vital Signs Temp 97.4 F 11/26/23 11:27 Pulse 88 11/26/23 11:27 Resp 20 11/26/23 11:27 BP 145/67 H 11/26/23 11:27 Pulse Ox 97 11/26/23 11:27 O2 Del Method Nasal Cannula 11/26/23 11:27 O2 Flow Rate 2 11/26/23 11:27 BMI result Body Mass Index 45.3 Const: General: cooperative, comfortable, alert and awake Nutritional Appearance: obese Orientation/consciousness: patient oriented x3 Resp: Effort & Inspection: normal respiratory effort, able to speak in complete sentences, no respiratory distress and no use of accessory muscles Cardio: Rate: regular rate GI: Inspection: No distended Palpation (GI): Soft to palpation Neuro: Other: Grossly nonfocal, able to move all 4 extremities spontaneously General: patient oriented x3 Extrem: Other: Trace leg edema Objective Data Active Medications Acetaminophen (Acetaminophen 325 Mg Tablet) 650 mg PO Q6H PRN PRN Reason: Pain, Mild (Pain Scale 1-3) Last Admin: 11/26/23 09:33 Dose: 650 mg Documented By: SIOMARA Albuterol/Ipratropium (Albuterol/Iprat 2.5/0.5mg 3 Ml Ampul.Neb) 3 ml INHALE Q3H PRN PRN Reason: Shortness of Breath/Wheezing Apixaban (Apixaban 5 Mg Tablet) 5 mg PO BID [facility] Last Admin: 11/26/23 09:31 Dose: 5 mg Documented By: SIOMARA Fluoxetine HCl (Fluoxetine Hcl 20 Mg Capsule) 40 mg PO DAILY [facility] Last Admin: 11/26/23 09:32 Dose: 40 mg Documented By: SIOMARA Folic Acid (Folic Acid 1 Mg Tablet) 1 mg PO DAILY [facility] Last Admin: 11/26/23 09:32 Dose: 1 mg Documented By: SIOMARA Furosemide (Furosemide 40 Mg Tablet) 30 mg PO DAILY [facility]; Protocol Last Admin: 11/26/23 09:32 Dose: 30 mg Documented By: SIOMARA Comments: Gabapentin (Gabapentin 300 Mg Capsule) 300 mg PO BID [facility] Last Admin: 11/26/23 09:31 Dose: 300 mg Documented By: SIOMARA Glucose (Glucose Gel 15 Gm Gel..Gram.) 15 gm PO Q15M PRN; Protocol PRN Reason: per Hypoglycemia Standing Ord. Guaifenesin/Dextromethorphan (Guaifenesin Dm 100/10/5 Ml 5 Ml Syrup) 5 ml PO Q4H PRN PRN Reason: Cough Ceftriaxone Sodium 1 gm/ (Sodium Chloride) 50 mls @ 100 mls/hr IV Q24H [facility] Last Infusion: 11/25/23 15:05 Dose: Infused Documented By: ALIA Azithromycin 500 mg/ Sodium (Chloride) 250 mls @ 125 mls/hr IV Q24H [facility] Last Infusion: 11/25/23 19:48 Dose: Infused Documented By: MALCOLM Dextrose (D10) 250 mls @ 750 mls/hr IV Q15M PRN; Protocol PRN Reason: per Hypoglycemia Standing Ord. Insulin Human Lispro (Insulin Lispro 100 Unit/Ml 3 Ml Vial) 0 unit SUBCUT QIDACHS [facility]; Protocol Last Admin: 11/26/23 09:34 Dose: Not Given Documented By: SIOMARA Non-Admin Reason: No Insulin Coverage Metoprolol Tartrate (Metoprolol Tartrate 50 Mg Tablet) 50 mg PO BID [facility]; Protocol Last Admin: 11/26/23 09:33 Dose: 50 mg Documented By: SIOMARA Multivitamins/Vitamin C (Multivitamin Tablet) 1 tab PO DAILY [facility] Last Admin: 11/26/23 09:31 Dose: 1 tab Documented By: SIOMARA Nicotine (Nicotine 7 Mg Patch.Td24) 7 mg TRANSDERMA DAILY [facility] Last Admin: 11/26/23 09:38 Dose: 7 mg Documented By: SIOMARA Omeprazole (Omeprazole 40 Mg Capsule.Dr) 40 mg PO DAILY@0630 [facility] Last Admin: 11/26/23 06:19 Dose: 40 mg Documented By: MALCOLM Ondansetron HCl (Ondansetron Hcl 4 Mg/2 Ml Vial) 4 mg IVPUSH Q8H PRN PRN Reason: Nausea and Vomiting Pharmacy Consult (Consult Rx Etoh Phenob Im/Po) 1 each MISCELLANE ONCE PRN; Protocol PRN Reason: Consult order Phenobarbital (Phenobarbital 30 Mg Tablet) 30 mg PO DAILY [facility]; Protocol Stop: 11/27/23 09:01 Last Admin: 11/26/23 09:31 Dose: 30 mg Documented By: SIOMARA Sodium Chloride (0.9 % Sodium Chloride Flush 3 Ml Syringe) 3 ml IVFLUSH QSHIFT [facility] Last Admin: 11/26/23 09:33 Dose: 3 ml Documented By: SIOMARA Thiamine HCl (Thiamine Hcl 100 Mg Tablet) 100 mg PO DAILY [facility] Last Admin: 11/26/23 09:32 Dose: 100 mg Documented By: SIOMARA Labs 11/22/23 05:45 11/24/23 08:35 Labs: Laboratory Results - last 24 hr 11/25/23 11/25/23 11/25/23 16:07 17:38 20:37 POC Glucose 115 89 Uric Acid 9.4 H 11/26/23 11/26/23 07:54 11:26 POC Glucose 91 120 H Uric Acid Assessment and Plan (1) Pneumonia: Status: Inactive Assessment and Plan: This is a 63-year-old man admitted with acute hypoxic respiratory failure secondary to community-acquired pneumonia Right knee pain Right knee effusion X-ray ordered, pending Seen by ortho, we will consider draining in a.m. dysphagia. improved. Likely due encephalopathy Speech following, advanced back to regular diet and tolerating well Acute encephalopathy, possible Wernicke's encephalopathy secondary to alcohol abuse. resolved Noted encephalopathy, nystagmus, ataxia Ammonia 35, normal VBG, repeat chest x-ray negative for acute abnormality continue IV thiamine 200 mg t.i.d. transitioned to p.o. Neurology consultation> rec EEG (patient refused) Acute hypoxic respiratory failure secondary to community-acquired pneumonia no sepsis Continue Rocephin and azithromycin, plan 7 days Supplemental oxygen as needed- will attempt to wean oxygen Cough suppressant as needed blood cx neg to date Alcohol abuse with withdrawal Continue phenobarbital protocol IV Thiamine, multivitamin and folic acid Seen by addiction Medicine, considering naltrexone MERLIN. resolved Likely secondary to dehydration vs hypoperfusion in light of low BP s/p IVF AIDAN-inhibitor on hold Hypokalemia/hypomagnesemia > Resolved Replace with oral and IV follow BMP Fall head and spine cts neg for acute abnormality PT rec short-term rehab due to decreased strength and balance and increasing risk of falls, patient declines and prefers to return home with services. pt still 2 assist and unable to ambulate independently Diabetes mellitus type 2 Sliding scale, ADA diet Hypertension low BP Lisinopril and Norvasc have been on hold HFrEF no exacerbation Resume home dose of Lasix, 30 mg daily Persistent atrial fibrillation stable heart rate continue BB and catarino Obstructive sleep apnea on cpap at bedtime Morbid obesity. BMI 45.3 Discussed importance of weight management as this may be contributing to worsening of other comorbidities GERD Continue PPI Smoker discussed the importance of cessation NRT offered and accepted DVT prophylaxis with Catarino Attending Dr. Ram Full code Continue hospital stay for tx of resp failure secondary to pneumonia, safe dispo Quality Stroke Does the patient have a stroke diagnosis?: No VTE Prior VTE?: No VTE Risk Level:: Medical - moderate - high VTE Device Contraindication: Treatment Not Indicated VTE Drug Contraindication: N/A - Med Ordered
--- NOTE | 2023-11-26 13:22 | PM.CNOR ---
History of Present Illness [facility] Consult date: 11/26/23 Chief complaint: Fall, PNA Narrative: Patient is a 63-year-old male who was admitted to the medical service and subsequently reported right knee pain s/p fall. He states that he was trying to get out of the door onto his deck while sitting in a wheelchair. Reportedly the front wheels got caught along the door frame and he slid out of the wheelchair and hurt the knee. He does fever or chills. Review of Systems Review of Systems: Yes all other systems are reviewed and are negative [facility] Past Medical History Medical History Effusion, right knee Screen for STD (sexually transmitted disease) Left ankle swelling Hypomagnesemia Diarrhea Acute UTI Physical exam Nocturia Microhematuria Elevated serum creatinine Morbid obesity Increased ammonia level Weakness of both lower extremities Alcohol use disorder, severe, dependence Dermatitis, unspecified History of cardiac arrest (~05/2020) Nicotine dependence, cigarettes, uncomplicated Personal history of colonic polyps Hypoventilation associated with obesity syndrome Encephalopathy chronic MJ (obstructive sleep apnea) CKD (chronic kidney disease) stage 3, GFR 30-59 ml/min Cirrhosis Diabetes Obesity (BMI 35.0-39.9 without comorbidity) Wernicke encephalopathy Obstructive sleep apnea (adult) (pediatric) Rib fractures CHF (congestive heart failure) Left atrial enlargement Persistent atrial fibrillation Depression Gout Arthritis Anxiety HTN (hypertension) Family History Family History Father Lung cancer Mother No problems noted. Maternal Aunt History of heart attack Sister No problems noted. Brother Cancer of kidney Brother No problems noted. Brother No problems noted. Brother No problems noted. Brother No problems noted. Brother No problems noted. Other Substance use disorder Surgical History Surgical History History of tracheostomy (~2019) History of bronchoscopy (~2019) History of colonoscopy (~2021) History of esophagogastroduodenoscopy (EGD) (~2021) History of cardioversion (~2020) S/P percutaneous endoscopic gastrostomy (PEG) tube placement (~2019) Social History Social History Household Members: Spouse Housing: House Do you presently have visiting nurse or other home services: No Unable to assess alcohol history related to: Unknown Alcohol intake: current Alcohol intake frequency: 0-2 drinks per day Alcohol type: beer Comment: 1:1 sitter Patient Tobacco Use Status: Current everyday Tobacco user Tobacco use type: Cigarette Cigarette Packs Per Day: 0.5 Cigarettes Per Day: 10.0 Years Smoked: 40 e-Cigarette/Vaping Use: Never Used Second Hand Smoke Exposure: No Advance Directives Date on File: 06/05/20 service: Yes Current occupational status: unemployed Cognitive needs: No Hearing needs: No Vision needs: No Meds Allergies Allergy/AdvReac Type Severity Reaction Status Date / Time No Known Allergies Allergy Verified 11/28/23 19:46 [No Known Allergies*] Active Medications: Current Medications Acetaminophen (Acetaminophen 325 Mg Tablet) 650 mg PO Q6H PRN PRN Reason: Pain, Mild (Pain Scale 1-3) Last Admin: 11/26/23 09:33 Dose: 650 mg Albuterol/Ipratropium (Albuterol/Iprat 2.5/0.5mg 3 Ml Ampul.Neb) 3 ml INHALE Q3H PRN PRN Reason: Shortness of Breath/Wheezing Apixaban (Apixaban 5 Mg Tablet) 5 mg PO BID [facility] Last Admin: 11/26/23 09:31 Dose: 5 mg Fluoxetine HCl (Fluoxetine Hcl 20 Mg Capsule) 40 mg PO DAILY [facility] Last Admin: 11/26/23 09:32 Dose: 40 mg Folic Acid (Folic Acid 1 Mg Tablet) 1 mg PO DAILY [facility] Last Admin: 11/26/23 09:32 Dose: 1 mg Furosemide (Furosemide 40 Mg Tablet) 30 mg PO DAILY [facility]; Protocol Last Admin: 11/26/23 09:32 Dose: 30 mg Gabapentin (Gabapentin 300 Mg Capsule) 300 mg PO BID [facility] Last Admin: 11/26/23 09:31 Dose: 300 mg Glucose (Glucose Gel 15 Gm Gel..Gram.) 15 gm PO Q15M PRN; Protocol PRN Reason: per Hypoglycemia Standing Ord. Guaifenesin/Dextromethorphan (Guaifenesin Dm 100/10/5 Ml 5 Ml Syrup) 5 ml PO Q4H PRN PRN Reason: Cough Ceftriaxone Sodium 1 gm/ (Sodium Chloride) 50 mls @ 100 mls/hr IV Q24H [facility] Last Infusion: 05/31/24 15:05 Dose: Infused Azithromycin 500 mg/ Sodium (Chloride) 250 mls @ 125 mls/hr IV Q24H [facility] Last Infusion: 11/25/23 19:48 Dose: Infused Dextrose (D10) 250 mls @ 750 mls/hr IV Q15M PRN; Protocol PRN Reason: per Hypoglycemia Standing Ord. Insulin Human Lispro (Insulin Lispro 100 Unit/Ml 3 Ml Vial) 0 unit SUBCUT QIDACHS [facility]; Protocol Last Admin: 11/26/23 09:34 Dose: Not Given Metoprolol Tartrate (Metoprolol Tartrate 50 Mg Tablet) 50 mg PO BID [facility]; Protocol Last Admin: 11/26/23 09:33 Dose: 50 mg Multivitamins/Vitamin C (Multivitamin Tablet) 1 tab PO DAILY [facility] Last Admin: 11/26/23 09:31 Dose: 1 tab Nicotine (Nicotine 7 Mg Patch.Td24) 7 mg TRANSDERMA DAILY [facility] Last Admin: 11/26/23 09:38 Dose: 7 mg Omeprazole (Omeprazole 40 Mg Capsule.Dr) 40 mg PO DAILY@0630 [facility] Last Admin: 11/26/23 06:19 Dose: 40 mg Ondansetron HCl (Ondansetron Hcl 4 Mg/2 Ml Vial) 4 mg IVPUSH Q8H PRN PRN Reason: Nausea and Vomiting Pharmacy Consult (Consult Rx Etoh Phenob Im/Po) 1 each MISCELLANE ONCE PRN; Protocol PRN Reason: Consult order Phenobarbital (Phenobarbital 30 Mg Tablet) 30 mg PO DAILY [facility]; Protocol Stop: 11/27/23 09:01 Last Admin: 11/26/23 09:31 Dose: 30 mg Sodium Chloride (0.9 % Sodium Chloride Flush 3 Ml Syringe) 3 ml IVFLUSH QSHIFT [facility] Last Admin: 11/26/23 09:33 Dose: 3 ml Thiamine HCl (Thiamine Hcl 100 Mg Tablet) 100 mg PO DAILY [facility] Last Admin: 11/26/23 09:32 Dose: 100 mg Home Medications ?Medication ?Instructions ?Recorded ?Confirmed ?Last Taken ?Type fluoxetine 40 mg capsule 40 mg PO DAILY 07/13/23 11/29/23 11/20/23 History multivitamin with folic acid 400 1 tab PO DAILY 11/21/23 11/29/23 11/20/23 History mcg tablet (Daily-Carlito (with folic acid)) Physical Exam Vital Signs: Vital Signs: Last Vital Signs Temp 97.4 F 11/26/23 11:27 Pulse 88 11/26/23 11:27 Resp 20 11/26/23 11:27 BP 145/67 H 11/26/23 11:27 Pulse Ox 97 11/26/23 11:27 O2 Del Method Nasal Cannula 11/26/23 11:27 O2 Flow Rate 2 11/26/23 11:27 BMI result Body Mass Index 45.3 Const: General: cooperative, healthy appearing, comfortable and no acute distress Extrem: Other: Right knee effusion present no erythema he is able to flex and extend without pain he can perform SLR calf supple non tender NVI Results Labs 11/22/23 05:45 11/24/23 08:35 Labs: Abnormal lab results 11/25/23 11/26/23 Range/Units 17:38 11:26 POC Glucose 120 H (60-115) mg/dL Uric Acid 9.4 H (3.4-7.0) mg/dL H & H 11/21/23 11/22/23 Range/Units 13:12 05:45 Hgb 14.3 12.9 L (14.0-18.0) g/dl Hct 41.0 L 38.0 L (42.0-52.0) % Coagulation 11/21/23 Range/Units 13:12 INR 1.7 H (0.9-1.1) All other labs normal. Assessment and Plan (1) Effusion, right knee: Status: Acute Plan No evidence of fx on xrays mild OA Does not seem to be cellulitis or septic oa in absence of redness he does have effusion-offered to drain but he would like to wait and see if it gets better would recommend compression with melvi wrap ROM NSAIDS is tolerable Procedures Date of Service Date of Service: 12/02/23
[2023-11-26 15:52] LABS: Glucose, Whole Blood 134 mg/dL (60-115)
[2023-11-26] MEDS: cefTRIAXone sodium 1 GM in 0.9 % Sodium Chloride 50 ML IV (16:10)
[2023-11-26] MEDS: Azithromycin 500 MG in 0.9 % Sodium Chloride 250 ML 125 MG IV (17:55)
[2023-11-26 20:17] LABS: Glucose, Whole Blood 157 mg/dL (60-115)
[2023-11-27] VITALS (8 sets, daily range): BP systolic 106–159; BP diastolic 58–89; PULSE 80–124; RESP 18–20; TEMP 36.1–36.7; O2SAT 89–98
[2023-11-27] MEDS: Omeprazole 40 MG CAPSULE.DR PO (05:31)
[2023-11-27 08:09] LABS: Glucose, Whole Blood 93 mg/dL (60-115)
[2023-11-27] MEDS: FLUoxetine HCl 20 MG CAPSULE 40 MG PO (10:25)
[2023-11-27] MEDS: Nicotine 7 MG PATCH.TD24 TRANSDERMA (10:25)
[2023-11-27] MEDS: Furosemide 40 MG TABLET 30 MG PO (10:26)
[2023-11-27] MEDS: 0.9 % Sodium Chloride Flush 3 ML SYRINGE IVFLUSH ×3 (10:26→20:21)
[2023-11-27] MEDS: Apixaban 5 MG TABLET PO ×2 (10:27→20:21)
[2023-11-27] MEDS: PHENobarbitaL 30 MG TABLET PO (10:27)
[2023-11-27] MEDS: Folic Acid 1 MG TABLET PO (10:27)
[2023-11-27] MEDS: Gabapentin 300 MG CAPSULE PO ×2 (10:27→20:21)
[2023-11-27] MEDS: Metoprolol Tartrate 50 MG TABLET PO ×2 (10:27→20:21)
[2023-11-27] MEDS: Thiamine HCL 100 MG TABLET PO (10:27)
[2023-11-27] MEDS: Multivitamin TABLET 1 TAB PO (10:27)
[2023-11-27 12:25] LABS: Glucose, Whole Blood 146 mg/dL (60-115)
--- NOTE | 2023-11-27 13:33 | P.PNIM_ITS ---
Subjective Subjective Date of Service: 11/27/23 Interval History: Seen and examined this morning Follow-up for encephalopathy, alcohol withdrawal, pneumonia Denies shortness of breath, off oxygen at room air Has not been ambulating in room Review of Systems Review of Systems: Yes all other systems are reviewed and are negative Constitutional Constitutional: Denies fever(s) ENT Ears, Nose, Mouth, and Throat: Denies dizziness Cardiovascular Cardiovascular: Denies chest pain and Denies dyspnea Respiratory Respiratory: Denies dyspnea Gastrointestinal Gastrointestinal: Denies abdominal pain Neurologic Neurologic: Denies dizziness Physical Exam 2 Vital Signs: Vital Signs: Last Vital Signs Temp 97.6 F 11/27/23 11:32 Pulse 88 11/27/23 11:32 Resp 18 11/27/23 11:32 BP 159/85 H 11/27/23 11:32 Pulse Ox 96 11/27/23 11:32 O2 Del Method Room Air 11/27/23 11:32 O2 Flow Rate 2 11/27/23 07:55 BMI result Body Mass Index 45.3 Const: General: cooperative, comfortable, alert and awake Nutritional Appearance: obese Orientation/consciousness: patient oriented x3 Resp: Effort & Inspection: normal respiratory effort, able to speak in complete sentences, no respiratory distress and no use of accessory muscles Cardio: Rate: regular rate GI: Inspection: No distended Palpation (GI): Soft to palpation Neuro: Other: Grossly nonfocal, able to move all 4 extremities spontaneously General: patient oriented x3 Extrem: Other: Trace leg edema Objective Data Active Medications Acetaminophen (Acetaminophen 325 Mg Tablet) 650 mg PO Q6H PRN PRN Reason: Pain, Mild (Pain Scale 1-3) Last Admin: 11/26/23 09:33 Dose: 650 mg Documented By: SIOMARA Albuterol/Ipratropium (Albuterol/Iprat 2.5/0.5mg 3 Ml Ampul.Neb) 3 ml INHALE Q3H PRN PRN Reason: Shortness of Breath/Wheezing Apixaban (Apixaban 5 Mg Tablet) 5 mg PO BID [facility] Last Admin: 11/27/23 10:27 Dose: 5 mg Documented By: SIOMARA Fluoxetine HCl (Fluoxetine Hcl 20 Mg Capsule) 40 mg PO DAILY [facility] Last Admin: 11/27/23 10:25 Dose: 40 mg Documented By: SIOMARA Folic Acid (Folic Acid 1 Mg Tablet) 1 mg PO DAILY [facility] Last Admin: 11/27/23 10:27 Dose: 1 mg Documented By: SIOMARA Furosemide (Furosemide 40 Mg Tablet) 30 mg PO DAILY [facility]; Protocol Last Admin: 11/27/23 10:26 Dose: 30 mg Documented By: SIOMARA Gabapentin (Gabapentin 300 Mg Capsule) 300 mg PO BID [facility] Last Admin: 11/27/23 10:27 Dose: 300 mg Documented By: SIOMARA Glucose (Glucose Gel 15 Gm Gel..Gram.) 15 gm PO Q15M PRN; Protocol PRN Reason: per Hypoglycemia Standing Ord. Guaifenesin/Dextromethorphan (Guaifenesin Dm 100/10/5 Ml 5 Ml Syrup) 5 ml PO Q4H PRN PRN Reason: Cough Ceftriaxone Sodium 1 gm/ (Sodium Chloride) 50 mls @ 100 mls/hr IV Q24H [facility] Last Infusion: 11/26/23 18:06 Dose: Infused Documented By: SIOMARA Azithromycin 500 mg/ Sodium (Chloride) 250 mls @ 125 mls/hr IV Q24H [facility] Last Infusion: 11/26/23 20:46 Dose: Infused Documented By: MALCOLM Dextrose (D10) 250 mls @ 750 mls/hr IV Q15M PRN; Protocol PRN Reason: per Hypoglycemia Standing Ord. Insulin Human Lispro (Insulin Lispro 100 Unit/Ml 3 Ml Vial) 0 unit SUBCUT QIDACHS [facility]; Protocol Last Admin: 11/27/23 12:49 Dose: Not Given Documented By: SIOMARA Non-Admin Reason: No Insulin Coverage Metoprolol Tartrate (Metoprolol Tartrate 50 Mg Tablet) 50 mg PO BID [facility]; Protocol Last Admin: 11/27/23 10:27 Dose: 50 mg Documented By: SIOMARA Multivitamins/Vitamin C (Multivitamin Tablet) 1 tab PO DAILY [facility] Last Admin: 11/27/23 10:27 Dose: 1 tab Documented By: SIOMARA Nicotine (Nicotine 7 Mg Patch.Td24) 7 mg TRANSDERMA DAILY [facility] Last Admin: 11/27/23 10:25 Dose: 7 mg Documented By: SIOMARA Omeprazole (Omeprazole 40 Mg Capsule.Dr) 40 mg PO DAILY@0630 [facility] Last Admin: 11/27/23 05:31 Dose: 40 mg Documented By: ANTMERNA Ondansetron HCl (Ondansetron Hcl 4 Mg/2 Ml Vial) 4 mg IVPUSH Q8H PRN PRN Reason: Nausea and Vomiting Pharmacy Consult (Consult Rx Etoh Phenob Im/Po) 1 each MISCELLANE ONCE PRN; Protocol PRN Reason: Consult order Sodium Chloride (0.9 % Sodium Chloride Flush 3 Ml Syringe) 3 ml IVFLUSH QSHIFT [facility] Last Admin: 11/27/23 10:26 Dose: 3 ml Documented By: SIOMARA Thiamine HCl (Thiamine Hcl 100 Mg Tablet) 100 mg PO DAILY [facility] Last Admin: 11/27/23 10:27 Dose: 100 mg Documented By: SIOAMRA Labs 11/22/23 05:45 11/24/23 08:35 Labs: Laboratory Results - last 24 hr 11/26/23 11/26/23 11/27/23 15:23 20:08 07:52 POC Glucose 134 H 157 H 93 11/27/23 12:15 POC Glucose 146 H Microbiology Microbiology Results: Microbiology 11/21/23 13:14 Blood Culture - Final Blood - Venous No growth after 5 days. 11/21/23 13:12 Blood Culture - Final Blood - Venous No growth after 5 days. Assessment and Plan (1) Pneumonia: Status: Inactive Assessment and Plan: This is a 63-year-old man admitted with acute hypoxic respiratory failure secondary to community-acquired pneumonia Right knee pain Right knee effusion X-ray negative for fracture Seen by ortho, patient declined drainage dysphagia. resolved Likely due encephalopathy Speech following, advanced back to regular diet and tolerating well Acute encephalopathy, possible Wernicke's encephalopathy secondary to alcohol abuse. resolved Noted encephalopathy, nystagmus, ataxia Ammonia 35, normal VBG, repeat chest x-ray negative for acute abnormality continue IV thiamine 200 mg t.i.d. transitioned to p.o. Neurology consultation> rec EEG (patient refused) Acute hypoxic respiratory failure secondary to community-acquired pneumonia no sepsis Continue Rocephin and azithromycin, plan 7 days Supplemental oxygen as needed- required oxygen in the afternoon, off oxygen this morning at rest, has not been ambulating. Will obtain home oxygen evaluation if patient is able to ambulate Cough suppressant as needed blood cx neg to date Alcohol abuse with withdrawal Continue phenobarbital protocol IV Thiamine, multivitamin and folic acid Seen by addiction Medicine, considering naltrexone MERLIN. resolved Likely secondary to dehydration vs hypoperfusion in light of low BP s/p IVF AIDAN-inhibitor on hold Hypokalemia/hypomagnesemia > Resolved Replace with oral and IV follow BMP Fall head and spine cts neg for acute abnormality PT rec short-term rehab due to decreased strength and balance and increasing risk of falls, patient declines and prefers to return home with services. pt still 2 assist, will -re-assess today Diabetes mellitus type 2 Sliding scale, ADA diet Hypertension low BP Lisinopril and Norvasc have been on hold HFrEF no exacerbation Resume home dose of Lasix, 30 mg daily Persistent atrial fibrillation stable heart rate continue BB and eliquis Obstructive sleep apnea on cpap at bedtime Morbid obesity. BMI 45.3 Discussed importance of weight management as this may be contributing to worsening of other comorbidities GERD Continue PPI Smoker discussed the importance of cessation NRT offered and accepted DVT prophylaxis with Elitom Full code Continue hospital stay for tx of resp failure secondary to pneumonia, safe dispo Quality Stroke Does the patient have a stroke diagnosis?: No VTE Prior VTE?: No VTE Risk Level:: Medical - moderate - high VTE Device Contraindication: Treatment Not Indicated VTE Drug Contraindication: N/A - Med Ordered
[2023-11-27 16:34] LABS: Glucose, Whole Blood 109 mg/dL (60-115)
[2023-11-27] MEDS: cefTRIAXone sodium 1 GM in 0.9 % Sodium Chloride 50 ML IV (17:35)
[2023-11-27] MEDS: Acetaminophen 325 MG TABLET 650 MG PO (18:01)
[2023-11-27] MEDS: Azithromycin 500 MG in 0.9 % Sodium Chloride 250 ML 125 MG IV (18:37)
[2023-11-27 20:48] LABS: Glucose, Whole Blood 165 mg/dL (60-115)
[2023-11-28 03:14] VITALS: BP 95/60; PULSE 80; RESP 18; TEMP 36.5; O2SAT 93
[2023-11-28] MEDS: Omeprazole 40 MG CAPSULE.DR PO (05:13)
[2023-11-28 07:31] VITALS: BP 149/77; PULSE 88; RESP 20; TEMP 36.4; O2SAT 95
[2023-11-28 07:36] LABS: Glucose, Whole Blood 108 mg/dL (60-115)
--- NOTE | 2023-11-28 08:23 | PM.PNORT ---
Subjective Subjective Date of Service: 11/28/23 Interval history: saw patient this morning and he is feeling better in regards to the right knee Physical Exam Vital Signs: Vital Signs: Last Vital Signs Temp 97.6 F 11/28/23 07:31 Pulse 88 11/28/23 07:31 Resp 20 11/28/23 07:31 BP 149/77 H 11/28/23 07:31 Pulse Ox 95 11/28/23 07:31 O2 Del Method Nasal Cannula 11/28/23 07:31 O2 Flow Rate 2 11/28/23 07:31 BMI result Body Mass Index 45.3 Extrem: Other: right knee swelling without redness or pain , he is able to perform ROM. NVI. Procedures Date of Service Date of Service: 11/28/23 Progress Note: A&P Assessment and plan (1) Effusion, right knee: Status: Acute Assessment and Plan: Continue celebex and compression contiunue ROM declines aspiration f/u out patient prn Time Spent With Patient Time: Total time managing care of this patient today ____ minutes. Quality Stroke Does the patient have a stroke diagnosis?: No VTE Prior VTE?: No VTE Risk Level:: Medical - moderate - high VTE Device Contraindication: Treatment Not Indicated VTE Drug Contraindication: N/A - Med Ordered
[2023-11-28 08:44] VITALS: BP 149/77; PULSE 88
[2023-11-28] MEDS: Metoprolol Tartrate 50 MG TABLET PO (08:44)
[2023-11-28 08:45] VITALS: BP 149/77
[2023-11-28] MEDS: Gabapentin 300 MG CAPSULE PO (08:45)
[2023-11-28] MEDS: Thiamine HCL 100 MG TABLET PO (08:45)
[2023-11-28] MEDS: Multivitamin TABLET 1 TAB PO (08:45)
[2023-11-28] MEDS: Folic Acid 1 MG TABLET PO (08:45)
[2023-11-28] MEDS: Furosemide 40 MG TABLET 30 MG PO (08:45)
[2023-11-28] MEDS: Apixaban 5 MG TABLET PO (08:46)
[2023-11-28] MEDS: FLUoxetine HCl 20 MG CAPSULE 40 MG PO (08:46)
[2023-11-28] MEDS: 0.9 % Sodium Chloride Flush 3 ML SYRINGE IVFLUSH (08:46)
--- NOTE | 2023-11-28 09:42 | HO.PM.IMPN ---
Subjective Subjective Date of Service: 11/28/23 Interval History: Seen and examined this morning Follow-up for encephalopathy, alcohol withdrawal, pneumonia Denies shortness of breath, off oxygen at room air Has not been ambulating in room Review of Systems Review of Systems: Yes all other systems are reviewed and are negative Constitutional Constitutional: Denies fever(s) ENT Ears, Nose, Mouth, and Throat: Denies dizziness Cardiovascular Cardiovascular: Denies chest pain and Denies dyspnea Respiratory Respiratory: Denies dyspnea Gastrointestinal Gastrointestinal: Denies abdominal pain Neurologic Neurologic: Denies dizziness Physical Exam Vital Signs: Vital Signs: Last Vital Signs Temp 97.6 F 11/28/23 07:31 Pulse 88 11/28/23 08:44 Resp 20 11/28/23 07:31 BP 149/77 H 11/28/23 08:45 Pulse Ox 95 11/28/23 07:31 O2 Del Method Nasal Cannula 11/28/23 07:31 O2 Flow Rate 2 11/28/23 07:31 BMI result Body Mass Index 45.3 Appearing in no acute distress lung sounds are clear to auscultation heart regular rate rhythm, clear S1, S2 positive bowel sounds, abdomen is soft, nontender neuro patient is alert x3, no focal deficits Objective Data Active Medications Acetaminophen (Acetaminophen 325 Mg Tablet) 650 mg PO Q6H PRN PRN Reason: Pain, Mild (Pain Scale 1-3) Last Admin: 11/27/23 18:01 Dose: 650 mg Documented By: SIOMARA Albuterol/Ipratropium (Albuterol/Iprat 2.5/0.5mg 3 Ml Ampul.Neb) 3 ml INHALE Q3H PRN PRN Reason: Shortness of Breath/Wheezing Apixaban (Apixaban 5 Mg Tablet) 5 mg PO BID [facility] Last Admin: 11/28/23 08:46 Dose: 5 mg Documented By: CASSIDY Fluoxetine HCl (Fluoxetine Hcl 20 Mg Capsule) 40 mg PO DAILY [facility] Last Admin: 11/28/23 08:46 Dose: 40 mg Documented By: CASSIDY Folic Acid (Folic Acid 1 Mg Tablet) 1 mg PO DAILY [facility] Last Admin: 11/28/23 08:45 Dose: 1 mg Documented By: CASSIDY Furosemide (Furosemide 40 Mg Tablet) 30 mg PO DAILY [facility]; Protocol Last Admin: 11/28/23 08:45 Dose: 30 mg Documented By: CASSIDY Gabapentin (Gabapentin 300 Mg Capsule) 300 mg PO BID [facility] Last Admin: 11/28/23 08:45 Dose: 300 mg Documented By: CASSIDY Glucose (Glucose Gel 15 Gm Gel..Gram.) 15 gm PO Q15M PRN; Protocol PRN Reason: per Hypoglycemia Standing Ord. Guaifenesin/Dextromethorphan (Guaifenesin Dm 100/10/5 Ml 5 Ml Syrup) 5 ml PO Q4H PRN PRN Reason: Cough Ceftriaxone Sodium 1 gm/ (Sodium Chloride) 50 mls @ 100 mls/hr IV Q24H [facility] Last Infusion: 11/27/23 18:38 Dose: Infused Documented By: SIOMARA Azithromycin 500 mg/ Sodium (Chloride) 250 mls @ 125 mls/hr IV Q24H [facility] Last Infusion: 11/27/23 21:12 Dose: Infused Documented By: MALCOLM Dextrose (D10) 250 mls @ 750 mls/hr IV Q15M PRN; Protocol PRN Reason: per Hypoglycemia Standing Ord. Insulin Human Lispro (Insulin Lispro 100 Unit/Ml 3 Ml Vial) 0 unit SUBCUT QIDACHS [facility]; Protocol Last Admin: 11/28/23 08:37 Dose: Not Given Documented By: CASSIDY Non-Admin Reason: No Insulin Coverage Metoprolol Tartrate (Metoprolol Tartrate 50 Mg Tablet) 50 mg PO BID [facility]; Protocol Last Admin: 11/28/23 08:44 Dose: 50 mg Documented By: CASSIDY Multivitamins/Vitamin C (Multivitamin Tablet) 1 tab PO DAILY [facility] Last Admin: 11/28/23 08:45 Dose: 1 tab Documented By: CASSIDY Nicotine (Nicotine 7 Mg Patch.Td24) 7 mg TRANSDERMA DAILY [facility] Last Admin: 11/28/23 08:44 Dose: Not Given Documented By: CASSIDY Non-Admin Reason: Patient Refused Omeprazole (Omeprazole 40 Mg Capsule.) 40 mg PO DAILY@0630 [facility] Last Admin: 11/28/23 05:13 Dose: 40 mg Documented By: PÉREZ Ondansetron HCl (Ondansetron Hcl 4 Mg/2 Ml Vial) 4 mg IVPUSH Q8H PRN PRN Reason: Nausea and Vomiting Pharmacy Consult (Consult Rx Etoh Phenob Im/Po) 1 each MISCELLANE ONCE PRN; Protocol PRN Reason: Consult order Sodium Chloride (0.9 % Sodium Chloride Flush 3 Ml Syringe) 3 ml IVFLUSH QSHIFT [facility] Last Admin: 11/28/23 08:46 Dose: 3 ml Documented By: CASSIDY Thiamine HCl (Thiamine Hcl 100 Mg Tablet) 100 mg PO DAILY [facility] Last Admin: 11/28/23 08:45 Dose: 100 mg Documented By: CASSIDY Labs 11/22/23 05:45 11/24/23 08:35 Labs: Laboratory Results - last 24 hr 11/27/23 11/27/23 11/27/23 12:15 16:22 20:43 POC Glucose 146 H 109 165 H 11/28/23 07:29 POC Glucose 108 Assessment and Plan (1) Pneumonia: Status: Inactive Assessment and Plan: This is a 63-year-old man admitted with acute hypoxic respiratory failure secondary to community-acquired pneumonia Vtach 7 beat run asymptomatic will discuss with cardiology Right knee pain Right knee effusion X-ray negative for fracture Seen by ortho, patient declined drainage dysphagia. resolved Likely due encephalopathy Speech following, advanced back to regular diet and tolerating well Acute encephalopathy, possible Wernicke's encephalopathy secondary to alcohol abuse. resolved Noted encephalopathy, nystagmus, ataxia Ammonia 35, normal VBG, repeat chest x-ray negative for acute abnormality continue IV thiamine 200 mg t.i.d. transitioned to p.o. Neurology consultation> rec EEG (patient refused) Acute hypoxic respiratory failure secondary to community-acquired pneumonia. Resolved no sepsis Continue Rocephin and azithromycin, total 7 days Supplemental oxygen as needed- required oxygen in the afternoon, off oxygen this morning at rest, has not been ambulating. Will obtain home oxygen evaluation if patient is able to ambulate Cough suppressant as needed blood cx neg to date Alcohol abuse with withdrawal Continue phenobarbital protocol IV Thiamine, multivitamin and folic acid Seen by addiction Medicine, considering naltrexone MERLIN. resolved Likely secondary to dehydration vs hypoperfusion in light of low BP s/p IVF AIDAN-inhibitor on hold Hypokalemia/hypomagnesemia > Resolved Replace with oral and IV follow BMP Fall head and spine cts neg for acute abnormality PT rec short-term rehab due to decreased strength and balance and increasing risk of falls, patient declines and prefers to return home with services. pt still 2 assist, will -re-assess today Diabetes mellitus type 2 Sliding scale, ADA diet Hypertension low BP Lisinopril and Norvasc have been on hold HFrEF no exacerbation Resume home dose of Lasix, 30 mg daily Persistent atrial fibrillation stable heart rate continue BB and eliquis Obstructive sleep apnea on cpap at bedtime Morbid obesity. BMI 45.3 Discussed importance of weight management as this may be contributing to worsening of other comorbidities GERD Continue PPI Smoker discussed the importance of cessation NRT offered and accepted DVT prophylaxis with [place] Full code Continue hospital stay for tx of resp failure secondary to pneumonia, safe dispo Quality Stroke Does the patient have a stroke diagnosis?: No VTE Prior VTE?: No VTE Risk Level:: Medical - moderate - high VTE Device Contraindication: Treatment Not Indicated VTE Drug Contraindication: N/A - Med Ordered
[2023-11-28 11:41] VITALS: BP 124/66; PULSE 102; RESP 20; TEMP 36.7; O2SAT 92
[2023-11-28 11:51] LABS: Glucose, Whole Blood 150 mg/dL (60-115)
--- NOTE | 2023-11-28 11:52 | MHC.SL.SWA ---
Speech Pathologist Impression: Oral phase dysphagia Risk of Aspiration Due to: History of Pneumonia Dysphasia Diet Status: Patient is tolerating regular texture diet. Continue with periodic supervision and aspiration precautions. Please re-refer if there are any changes or if WINCH OPERATOR can be of further assistance. Liquid Consistency and Strategies for Safe Swallow: Liquid Intake Recommendation: Thin Liquid Intake Strategies: Small Sips Solid Food Consistency: Dietary Recommendations: Regular Additional Modifications to Solid Foods: Chew food well, alternate with sips of liquid Oral Medication Intake: Whole with Liquid Please contact the pharmacy regarding appropriate crushable or liquid drug formulations that are available whenever modified delivery is recommended. Compensatory Strategies and Precautions to be Taken for Safe Swallow: Sitting Upright (90 deg) Double Swallow Small Bites and Sips Alternate Liquids/Solids Rate of Ingestion Change Avoid Specific Foods Supervision While Eating and Drinking for Safe Swallow: Intermittent Supervision Foods to Avoid: hard, sticky, tough to chew foods Swallowing Recommended Treatments: Compens. Strategy Educat. Recommendation for Speech: D/C Electroformer Clinican/Clinical Fellow: No Supervisory Statement: I have reviewed and agree with the student/clinical fellow's documentation: N/A Speech Language Pathologist: Herminia Dejesus M.A., [facility] OPERATOR
[2023-11-28] MEDS: cefTRIAXone sodium 1 GM in 0.9 % Sodium Chloride 50 ML IV (15:12)
--- NOTE | 2023-11-28 15:24 | P.DS_ITS ---
DS: Providers Provider Date of Service: 11/28/23 Date of admission: 11/21/23 15:33 Primary care physician: EVELYN Mckoy Consults: 11/21/23 17:12 Addiction Medicine Routine Consulting Provider: Addiction Covering Reason for consultation: ETOH 11/22/23 08:58 Consult to Neurology Routine Consulting Provider: [facility] Reason for consultation: Possible Wernicke's encephalopathy 11/26/23 11:17 Consult to Orthopedics Routine Consulting Provider: [facility] Reason for consultation: right knee pain s/p fall Has provider been notified: No DS: Diagnosis Discharge Diagnosis (1) Pneumonia: Status: Inactive DS: Summary Hospital Course Hospital Course: From the H&P on the day of admission 63-year-old male with multiple medical comorbidities to include alcohol use disorder, was drinking last night and states that he fell backwards from his walker and struck his head without loss of consciousness and is complaining of neck pain and states that he laid on the floor and was able to finally get up at approximately 05:00 this morning denies any abdominal discomfort/chest wall discomfort. Patient is on chronic anticoagulation. He was noted to be hypoxic 85% and placed on oxygen with good response. He as also noted to be mildly hypotensive. He has no fever or leukocytosis, potassium is noted to be 3.0, creatinine 3.38 significantly above his baseline, ethyl alcohol level 64. Patient received phenobarbital, Lasix, Rocephin, potassium in the ER. He will be admitted for further management and treatment of acute hypoxic respiratory failure secondary to pneumonia, MERLIN and fall. Hospital course by problem: Right knee pain due to Right knee effusion X-ray negative for fracture Seen by ortho, patient declined drainage. recommend compression with aidan bandage outpatient follow up if patient elects for drainage dysphagia. resolved Likely due encephalopathy. Resolved as mental status has improved. Speech following, advanced back to regular diet and tolerating well Acute encephalopathy likely multifactorial due to alcohol abuse/withdrawal and underlying infection. Mental status has returned to baseline Has been ambulating with the assistance of a walker in his room He was initially treated with IV thiamine given chronic alcohol use which was then transitioned to p.o. He was seen by Neurology who recommended EEG however the patient refused. brain CT negative Acute hypoxic respiratory failure secondary to community-acquired pneumonia no sepsis treated with IV Rocephin and azithromycin, completed course of antibiotics during hospitalization Supplemental oxygen as needed- required oxygen in the afternoon, off oxygen this morning at rest. Was able to ambulate within his room and did not qualify for supplemental oxygen. blood cx neg to date Alcohol abuse with withdrawal Treated with phenobarbital protocol Seen by addiction Medicine, considering naltrexone. recommend outpatient follow- up in the [facility] Abstinence from alcohol was discussed. MERLIN. resolved Likely secondary to dehydration vs hypoperfusion in light of low BP. AIDAN inhibitor was held during hospitalization and renal function returned to normal with IV fluid. Hypokalemia/hypomagnesemia > Resolved Replace and improved Fall head and spine cts neg for acute abnormality PT rec short-term rehab due to decreased strength and balance and increasing risk of falls, patient declines and prefers to return home with services. Extensive discussion with patient about going to rehab however he is adamant to return home. Was able to ambulate within his room and states that he has a wheelchair and walker at home and that his home is wheelchair accessible due to his son's disability. Hypertension low BP. Lisinopril and Norvasc were initially held during hospitalization. Can be resumed upon discharge Tobacco dependence Smoking cessation has been advised Can be discharged with nicotine patch Time Attestation Discharge Coordination Time (in mins): 42 Quality: Safe Use of Opioids Does Pt have an Active Cancer Diagnosis on the Problem List?: No Quality: Stroke Does the patient have a stroke diagnosis?: No Physical Exam Vital Signs: Vital Signs: Last Vital Signs Temp 98.0 F 11/28/23 11:41 Pulse 102 H 11/28/23 11:41 Resp 20 11/28/23 11:41 BP 124/66 11/28/23 11:41 Pulse Ox 92 11/28/23 11:41 O2 Del Method Nasal Cannula 11/28/23 11:41 O2 Flow Rate 2 11/28/23 11:41 BMI result Body Mass Index 45.3 Appearing in no acute distress head is normocephalic atraumatic eyes pupils are PERRLA sclera is anicteric mouth throat mucous membranes are intact and moist neck is supple no lymphadenopathy, no JVD noted lung sounds are clear to auscultation heart regular rate rhythm, clear S1, S2 positive bowel sounds, abdomen is soft, nontender neuro patient is alert x3, no focal deficits DS: Data Data Completed and Pending Completed studies during hospitalization [Text1]: Procedures Assistance with Respiratory Ventilation, Less than 24 Consecutive Hours, Continuous Positive Airway Pressure (07/13/23) Bypass Trachea to Cutaneous with Tracheostomy Device, Percutaneous Approach (05/30/20) Change Tracheostomy Device in Trachea, External Approach (05/30/20) Detoxification Services for Substance Abuse Treatment (03/30/23) Drainage of Left Lower Lung Lobe, Via Natural or Artificial Opening Endoscopic, Diagnostic (05/30/20) Insertion of Endotracheal Airway into Trachea, Via Natural or Artificial Opening (05/30/20) Insertion of Feeding Device into Stomach, Percutaneous Approach (05/30/20) Insertion of Infusion Device into Right Atrium, Percutaneous Approach (05/30/20) Insertion of Infusion Device into Superior Vena Cava, Percutaneous Approach (05/30/20) Performance of Cardiac Output, Single, Manual (05/30/20) Performance of Urinary Filtration, Intermittent, Less than 6 Hours Per Day (05/30/20) Respiratory Ventilation, Greater than 96 Consecutive Hours (05/30/20) Ultrasonography of Superior Vena Cava, Guidance (05/30/20) Labs on day of discharge: Laboratory Results - last 24 hr 11/27/23 11/27/23 11/28/23 16:22 20:43 07:29 POC Glucose 109 165 H 108 11/28/23 11:47 POC Glucose 150 H Discharge Plan Discharge Anticipated Discharge Date/Time: 11/28/23 15:20 Patient Disposition: Home Health Service Discharge Diagnosis: Toxic metabolic encephalopathy Alcohol withdrawal Pneumonia Right knee joint effusion MERLIN Referrals: Ortiz Deluca, [facility]EL[facility] [Primary Care Provider] - 1 Week Discharge Medications: New nicotine 7 mg/24 hr Patch 24 Hour 7 mg transdermal DAILY Qty: 14 0RF thiamine mononitrate (vit B1) 100 mg Tablet 100 mg PO DAILY Qty: 30 0RF Continued amlodipine 5 mg tablet 5 mg PO DAILY Qty: 90 1RF Eliquis 5 mg tablet 5 mg PO BID Qty: 180 1RF folic acid 1 mg tablet 1 mg PO DAILY Qty: 90 1RF gabapentin 300 mg capsule 300 mg PO BID 30 Days Qty: 60 4RF furosemide 20 mg tablet 30 mg PO DAILY Qty: 135 1RF lisinopril 2.5 mg tablet 2.5 mg PO DAILY Qty: 90 1RF omeprazole 20 mg capsule,delayed release(DR/EC) 40 mg PO DAILY@0630 Qty: 180 1RF rosuvastatin 5 mg tablet 5 mg PO DAILY Qty: 90 1RF metformin 850 mg tablet 850 mg PO DAILY Qty: 90 1RF albuterol sulfate 90 mcg/actuation HFA aerosol inhaler 2 puff inhalation QID PRN (Reason: Wheezing) Qty: 8.5 0RF metoprolol tartrate 50 mg tablet 50 mg PO BID Qty: 180 0RF Protocol: Hold for SBP/HR < HOLD for SBP < : 90 HOLD for HR < : 60 fluoxetine 40 mg capsule 40 mg PO DAILY multivitamin with folic acid [Daily-Carlito (with folic acid)] 400 mcg tablet 1 tab PO DAILY acetaminophen [Tylenol Arthritis Pain] 650 mg tablet extended release 650 mg PO Q12H PRN (Reason: pain) 30 Days Qty: 60 0RF No Action (DME) blood-glucose meter [FreeStyle Lite Meter] Kit See Rx Instructions .ROUTE .MEDSUPPLY Qty: 1 0RF Rx Instructions: check sugar twice a day (DME) lancets [FreeStyle Lancets] 28 gauge misc See Rx Instructions .ROUTE .MEDSUPPLY Qty: 100 2RF Rx Instructions: check sugar twice a day (DME) FreeStyle David 2 [place] Misc See Rx Instructions .Route Qty: 1 0RF Rx Instructions: tid testing (DME) FreeStyle David 2 Sensor Kit See Rx Instructions .Route Qty: 1 3RF Rx Instructions: tid testing Discharge Orders: Discharge Order (Routine); Ordered 11/28/23 Ordered By: Yvonne Turcios Diet: Advance to usual diet Activity on Discharge: As tolerated Stand Alone Forms: Patient Portal Discharge page Print Language: Moldovan Care Plan Goals: See below Health Concerns: Toxic metabolic encephalopathy Alcohol withdrawal Pneumonia Right knee joint effusion MERLIN. Resolved Hypokalemia/hypomagnesemia. Resolved Dysphagia due to encephalopathy. Resolved Plan of Treatment: Recommend to avoid all alcohol use Recommend to stop smoking, can use nicotine patch Completed antibiotics for pneumonia during hospitalization Physical therapy recommended short-term rehab however you have declined have elected to return home with home services including [facility] and physical therapy Assessment: See discharge summary
--- NOTE | 2023-11-28 15:39 | W.MHC.F2F ---
Service Date Service Date: 11/28/23 Encounter Date of encounter: 11/28/23 Reasons for Services Signs and symptoms assessed: Acute hypoxic respiratory failure CAP toxic metabolic encephalopathy Reason for penitentiary: CV/CP assess and/or care Reason for physical therapy: home safety and mobility Homebound: Leaving the home is medically contraindicated at this time without the asist of a device and/or another person due th the listed conditions above and below. Reason homebound: unsteady gait / fall risk Certification: Based on the above findings, I certify that this patient is confined to the home and needs intermittent penitentiary care, physical therapy and/or speech therapy, or continues to need occupational therapy. The patient is under my care, and I have initiated the establishment of the plan of care. The patient will be followed by a physician who will periodically review the plan of care. Time Spent With Patient Time: Total time managing care of this patient today ____ minutes.
--- NOTE | 2023-11-28 15:45 | MHC.CM.PN ---
Second IMM given 11/27. Pt is medically cleared for discharge home with new [facility] services. Pt will transport via [facility] at 4pm.
== END 2023-11-28 16:00 | disposition home health service (06) | DRG 193 ==
LOC: HO.ED 14:57 → HO.EDOVER 15:49 → HO.IMC 18:31
PROVIDERS: Internal Medicine; Physician Assistant Medical; Admitting Provider Nurse Practitioner Acute Care; Emergency Provider Student in an Organized Health Care Education/Training Program; PCP Nurse Practitioner Family; Visit Provider Nurse Practitioner Acute Care
DX: J18.9 Pneumonia, unspecified organism (principal); G92.8 Other toxic encephalopathy; J96.01 Acute respiratory failure with hypoxia; F10.139 Alcohol abuse with withdrawal, unspecified; N17.9 Acute kidney failure, unspecified; I50.22 Chronic systolic (congestive) heart failure; I48.19 Other persistent atrial fibrillation; Z68.42 Body mass index [BMI] 45.0-49.9, adult; E51.2 Wernicke's encephalopathy; I11.0 Hypertensive heart disease with heart failure; M17.11 Unilateral primary osteoarthritis, right knee; G47.33 Obstructive sleep apnea (adult) (pediatric); E66.01 Morbid (severe) obesity due to excess calories; E86.0 Dehydration; F17.210 Nicotine dependence, cigarettes, uncomplicated; Z71.6 Tobacco abuse counseling; Z71.3 Dietary counseling and surveillance; E87.6 Hypokalemia; E83.42 Hypomagnesemia; Y90.3 Blood alcohol level of 60-79 mg/100 ml; Z79.01 Long term (current) use of anticoagulants; Z79.84 Long term (current) use of oral hypoglycemic drugs; Z79.899 Other long term (current) drug therapy
CPT/HCPCS: 36415; 70450; 71045; 72125; 72132; 73110; 73130; 73560; 73630; 80048; 80053; 80076; 80307; 81003; 82140; 82550; 82803; 82947; 83605; 83735; 83880; 84550; 85025; 85610; 87040; 92526; 92610; 93005; 94660; 94799; 97162; 99285; J0456; J0696; J1940; J2560; J3411; J3475; J7120

== ENCOUNTER → 2023-11-21 12:26 | Outpatient (BNV) | payer MEDICARE, OTHER, MEDICAID, SELFPAY | PROVIDERS: Admitting Provider Nurse Practitioner Acute Care; Emergency Provider Student in an Organized Health Care Education/Training Program; PCP Nurse Practitioner Family; Visit Provider Internal Medicine | DX: R94.31 Abnormal electrocardiogram [ECG] [EKG] (principal) | CPT/HCPCS: 93010 ==

== ENCOUNTER → 2023-11-21 15:33 | Outpatient (BNV) | payer MEDICARE, OTHER, MEDICAID, SELFPAY | PROVIDERS: Admitting Provider Nurse Practitioner Acute Care; Emergency Provider Student in an Organized Health Care Education/Training Program; PCP Nurse Practitioner Family; Visit Provider Psychiatry & Neurology Neurology | DX: G93.40 Encephalopathy, unspecified (principal); I50.9 Heart failure, unspecified; J96.01 Acute respiratory failure with hypoxia; J18.9 Pneumonia, unspecified organism | CPT/HCPCS: 99222 ==

== ENCOUNTER → 2023-11-21 15:33 | Outpatient (BNV) | payer MEDICARE, OTHER, MEDICAID, SELFPAY | PROVIDERS: Admitting Provider Nurse Practitioner Acute Care; Emergency Provider Student in an Organized Health Care Education/Training Program; PCP Nurse Practitioner Family; Visit Provider Physician Assistant | DX: M25.461 Effusion, right knee (principal) | CPT/HCPCS: 99221; 99231 ==

== ENCOUNTER → 2023-11-21 15:33 | Outpatient (BNV) | payer MEDICARE, OTHER, MEDICAID, SELFPAY | PROVIDERS: Admitting Provider Nurse Practitioner Acute Care; Emergency Provider Student in an Organized Health Care Education/Training Program; PCP Nurse Practitioner Family; Visit Provider Internal Medicine | DX: I50.9 Heart failure, unspecified (principal); J96.01 Acute respiratory failure with hypoxia; J18.9 Pneumonia, unspecified organism | CPT/HCPCS: 99223; 99232; 99239; 99499; G0180 ==

== ENCOUNTER 2023-11-28 19:08 | Inpatient (IN) | payer MEDICARE, OTHER, MEDICAID, SELFPAY ==
--- NOTE | ~2023-11-28 | CT_ITS ---
EXAMINATION: CT LUMBAR SPINE WITHOUT CONTRAST CLINICAL INFORMATION: Fall, pain COMPARISON: 09/28/2022 TECHNIQUE: Multidetector helical imaging was performed through the lumbar spine. Coronal and sagittal reformatted images were created. This CT examination was performed using dose optimization techniques as appropriate, variously including the following: *Automated exposure control *Adjustment of mA and/or kV according to patient size (this includes techniques or standardized protocols for targeted exams where dose is matched to indication/reason for exam; i.e. extremities or head) *Use of iterative reconstruction technique DLP; 1251 mGy-cm FINDINGS: There is anatomic alignment of the lumbar vertebral bodies and posterior elements. Vertebral body heights are maintained. No acute fracture is seen. There is degenerative disc disease with vacuum disc phenomenon, disc space narrowing, and surrounding degenerative endplate change at L1-L2. Multilevel endplate osteophytes throughout the lumbar spine. There is facet arthropathy of the lower lumbar spine. Degenerative changes of the sacroiliac joints. Atherosclerosis throughout the aorta and visualized iliac arteries. CT/CT lumbar spine wo IV con IMPRESSION: No acute findings identified. Degenerative changes as noted above.
--- NOTE | ~2023-11-28 | CT_ITS ---
EXAMINATION: CT HEAD WITHOUT CONTRAST CLINICAL INFORMATION: Pain status-post fall. COMPARISON: CT head dated 11/21/2023. TECHNIQUE: Contiguous axial imaging was performed from the skull base to vertex without intravenous administration of contrast. Multiplanar reformatted images are submitted. This CT examination was performed using dose optimization techniques as appropriate, variously including the following: *Automated exposure control *Adjustment of mA and/or kV according to patient size (this includes techniques or standardized protocols for targeted exams where dose is matched to indication/reason for exam; i.e. extremities or head) *Use of iterative reconstruction technique DLP: 922 mGy-cm (head and cervical spine) FINDINGS: There is no acute intracranial hemorrhage or evidence of territorial infarction. No abnormal mass effect or midline shift is seen. Mir to white matter differentiation is well preserved. There is mild to moderate patchy low attenuation change in the periventricular white matter spaces. The ventricles are normal in size. No extra-axial fluid collections are identified. The calvarium and scalp soft tissues are normal. The middle ear cavity and mastoid air cells are clear. There is bilateral ethmoid sinusitis, left greater than right. There is a large left maxillary mucus retention cyst. There is mild mucosal thickening of the right sphenoid sinus chamber. CT/CT cervical spine wo IV con IMPRESSION: 1. No acute intracranial pathology. 2. There is mild to moderate patchy low attenuation change in the periventricular white matter spaces, commonly associated with chronic microangiopathy. 3. There is paranasal sinusitis. EXAMINATION: CT CERVICAL SPINE WITHOUT CONTRAST CLINICAL INFORMATION: Pain status-post fall. COMPARISON: None available. TECHNIQUE: Contiguous axial imaging was performed through the cervical spine without intravenous administration of contrast. Multiplanar reformatted images are submitted. This CT examination was performed using dose optimization techniques as appropriate, variously including the following: *Automated exposure control *Adjustment of mA and/or kV according to patient size (this includes techniques or standardized protocols for targeted exams where dose is matched to indication/reason for exam; i.e. extremities or head) *Use of iterative reconstruction technique DLP: As above FINDINGS: Vertebral body heights and alignment are normal. At C4-C5 and C5-C6, there is mild disc space narrowing, with vacuum phenomenon and endplate arthropathy. The remaining disc spaces are well-maintained. No acute fracture or spondylolisthesis is seen. The posterior elements are intact. There is no prevertebral soft tissue swelling. The dens is intact. The bilateral lung apices are clear. There is mild biapical paraseptal emphysematous change. IMPRESSION: 1. No acute fracture or spondylolisthesis is seen. 2. There is mild degenerative disc disease at C4-C5 and C5-C6. Fleischner guidelines were followed.
--- NOTE | ~2023-11-28 | XR_ITS ---
EXAMINATION: XR CHEST CLINICAL INFORMATION: Hypoxia COMPARISON: 11/23/2023 TECHNIQUE: Frontal view of the chest was obtained. FINDINGS: The lungs appear mildly hypoinflated. No focal consolidation is seen. Central vasculature appears prominent which may reflect mild congestion in the proper clinical setting. No evidence of pneumothorax or significant pleural effusion. Cardiac silhouette remains enlarged. No acute osseous findings are seen. XR/XR chest 1V IMPRESSION: Low lung volumes without focal consolidation. Prominent central vasculature may reflect mild congestion in the proper clinical setting.
--- NOTE | ~2023-11-28 | XR_ITS ---
EXAMINATION: XR FOOT, RIGHT CLINICAL INFORMATION: Swelling. COMPARISON: None available. TECHNIQUE: AP, lateral, and oblique views of the right foot. FINDINGS: There is mild bony demineralization. No fracture, dislocation or joint effusion is seen. Boehler's angle is normal. There are small posterior and moderate plantar calcaneal spurs. There is mild osteoarthritic change of the first metatarsophalangeal joint. There is generalized soft tissue swelling, most pronounced of the dorsal foot. No soft tissue gas or foreign body is seen. XR/XR foot RT min 3V IMPRESSION: 1. No fracture, dislocation or right ankle joint effusion is seen. 2. There are small posterior and moderate plantar calcaneal spurs. 3. There is mild osteoarthritic change of the right first metatarsophalangeal joint. 4. There is soft tissue swelling of the foot, most pronounced dorsally.
--- NOTE | ~2023-11-28 | XR_ITS ---
EXAMINATION: XR HAND/WRIST, LEFT CLINICAL INFORMATION: Pain status-post fall. COMPARISON: None TECHNIQUE: PA, lateral, and oblique views of the left hand and wrist, together with a dedicated navicular view. FINDINGS: Bony alignment and mineralization are normal. There is a neutral ulnar variance. There is marked arthritic change of the fourth proximal interphalangeal joint, with severe erosions and arthritis mutilans. Joint space narrowing and marginal erosions are noted of the second, fourth and fifth proximal interphalangeal joints joints. There is moderate degenerative change of the interphalangeal joint of the thumb. Mild degenerative change is seen of the first carpometacarpal joint. No fracture or dislocation is seen. This no generalized soft tissue swelling the fingers, without gas or foreign body. XR/XR hand wrist LT IMPRESSION: There are significant arthritic changes of the left hand, with erosions. 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 The appearance suggests possible inflammatory arthritides, including rheumatoid arthritis, psoriasis, gout and, less likely given marginal erosions, erosive osteoarthritis. Please correlate clinically.
[2023-11-28 19:15] VITALS: BP 131/55; BP 142/68; PULSE 102; PULSE 116; RESP 20; TEMP 37.4; O2SAT 88; O2SAT 95; BMI 42.9
[2023-11-28 19:30] VITALS: BP 131/55; PULSE 96; RESP 20; TEMP 37.4; O2SAT 95
--- NOTE | 2023-11-28 19:31 | MHC.EDTECH ---
pt O2 room sats dropped to 77% with good pleth, RN notified and pt placed on 02 via NC @ 2lpm. pt 02 increased to 95%
--- NOTE | 2023-11-28 20:15 | ED.FALL ---
HPI - Fall General Chief Complaint: Fall Stated Complaint: fall at home, l arm pain, just d/c from here today Time Seen by Provider: 11/28/23 20:06 Source: patient and EMS Mode of arrival: EMS Limitations: language barrier History of Present Illness HPI Narrative: Patient is a 63-year-old male who presents emergency department via EMS for evaluation. He was discharged from this hospital at approximately 16:00 today. He reports that when he got home he got into a disagreement with his and he admits to taking 1 shot of alcohol; fireball. He states that he was trying to get out of the door onto his deck while sitting in a wheelchair. Reportedly the front wheels got caught along the door frame and he slid out of the wheelchair. Reports landing onto his buttock and lower back. He is uncertain whether there is head strike, he denies loss consciousness. He does admit to having a diffuse headache and he is on blood thinners. He states he was not on the ground for long, his granddaughter lives with him who called for help from the neighbors to get him up. Ultimately EMS was called. He is experiencing pain diffusely across the lower back, as well as pain to the left hand/wrist. He is noted to have swelling to the right foot and pain upon palpation, when asked he states it is not uncommon for him to have asymmetrical swelling with the right foot being worse than the left. He denies any numbness or tingling of the extremities. He denies any bladder bowel dysfunction/incontinence or saddle paresthesias. He denies any precipitating symptoms prior to the fall. On room air he was noted to be hypoxic with O2 saturation 88% he is placed on 2 L with improvement to 95%, he admits to having shortness of breath. Related Data Home Medications ?Medication ?Instructions ?Recorded ?Confirmed fluoxetine 40 mg capsule 40 mg PO DAILY 07/13/23 11/21/23 multivitamin with folic acid 400 1 tab PO DAILY 11/21/23 11/21/23 mcg tablet (Daily-Carlito (with folic acid)) Previous Rx's ?Medication ?Instructions ?Recorded blood-glucose meter (FreeStyle #1 ea 09/03/20 Lite Meter kit) lancets 28 gauge (FreeStyle #100 ea 02/02/21 Lancets) FreeStyle [place] 2 [place] (flash #1 ea 07/03/22 glucose scanning reader) FreeStyle David 2 Sensor (flash #1 ea 07/03/22 glucose sensor) acetaminophen 650 mg 650 mg PO Q12H PRN pain 30 days 09/29/22 tablet,extended release (Tylenol #60 tabs Arthritis Pain) amlodipine 5 mg tablet 5 mg PO DAILY #90 tabs 06/17/23 apixaban 5 mg tablet (Eliquis) 5 mg PO BID #180 tabs 06/17/23 folic acid 1 mg tablet 1 mg PO DAILY #90 tabs 09/16/23 gabapentin 300 mg capsule 300 mg PO BID 30 days #60 caps 09/16/23 furosemide 20 mg tablet 30 mg (1.5 x 20 mg) PO DAILY #135 10/12/23 tabs lisinopril 2.5 mg tablet 2.5 mg PO DAILY #90 tabs 10/12/23 omeprazole 20 mg capsule,delayed 40 mg (2 x 20 mg) PO DAILY@0630 10/12/23 release #180 caps rosuvastatin 5 mg tablet 5 mg PO DAILY #90 tabs 10/12/23 metformin 850 mg tablet 850 mg PO DAILY #90 tabs 10/24/23 albuterol sulfate 90 mcg/actuation 2 puff inhalation QID PRN Wheezing 11/03/23 aerosol inhaler #8.5 grams metoprolol tartrate 50 mg tablet 50 mg PO BID #180 tabs 11/13/23 nicotine 7 mg/24 hr daily 7 mg transdermal DAILY #14 ea 11/27/23 transdermal patch thiamine mononitrate (vit B1) 100 100 mg PO DAILY #30 tabs 11/28/23 mg tablet Allergies Allergy/AdvReac Type Severity Reaction Status Date / Time No Known Allergies Allergy Verified 11/28/23 19:46 [No Known Allergies*] Review of Systems Review of Systems: Yes all other systems are reviewed and are negative PMFSH Past Medical History Attestation statement: The following information was validated with the patient. Source: old records reviewed Medical History Effusion, right knee Screen for STD (sexually transmitted disease) Left ankle swelling Hypomagnesemia Diarrhea Acute UTI Physical exam Nocturia Microhematuria Elevated serum creatinine Morbid obesity Increased ammonia level Weakness of both lower extremities Alcohol use disorder, severe, dependence Dermatitis, unspecified History of cardiac arrest (~05/2020) Nicotine dependence, cigarettes, uncomplicated Personal history of colonic polyps Hypoventilation associated with obesity syndrome Encephalopathy chronic MJ (obstructive sleep apnea) CKD (chronic kidney disease) stage 3, GFR 30-59 ml/min Cirrhosis Diabetes Obesity (BMI 35.0-39.9 without comorbidity) Wernicke encephalopathy Obstructive sleep apnea (adult) (pediatric) Rib fractures CHF (congestive heart failure) Left atrial enlargement Persistent atrial fibrillation Depression Gout Arthritis Anxiety HTN (hypertension) Surgical History History of tracheostomy (~2019) History of bronchoscopy (~2019) History of colonoscopy (~2021) History of esophagogastroduodenoscopy (EGD) (~2021) History of cardioversion (~2020) S/P percutaneous endoscopic gastrostomy (PEG) tube placement (~2019) Family History Family History Father Lung cancer Mother No problems noted. Maternal Aunt History of heart attack Sister No problems noted. Brother Cancer of kidney Brother No problems noted. Brother No problems noted. Brother No problems noted. Brother No problems noted. Brother No problems noted. Other Substance use disorder Social History Social History Household Members: Spouse Housing: House Do you presently have visiting nurse or other home services: No Unable to assess alcohol history related to: Unknown Alcohol intake: current Alcohol intake frequency: 0-2 drinks per day Alcohol type: beer Comment: 1:1 sitter Patient Tobacco Use Status: Current everyday Tobacco user Tobacco use type: Cigarette Cigarette Packs Per Day: 0.5 Cigarettes Per Day: 10.0 Smoked in Last 30 Days: Yes e-Cigarette/Vaping Use: Never Used Second Hand Smoke Exposure: No Use of substances other than those prescribed or required for medical reasons: No Advance Directives: Yes Advance Directives on File: Yes Advance Directives Date on File: 06/05/20 Do you have a plan to hurt others: No Plan service: Yes Current occupational status: unemployed Cognitive needs: No Hearing needs: No Vision needs: No Physical Exam Vital Signs: Vital Signs: Last Vital Signs Temp 99.3 F 11/28/23 19:30 Pulse 95 11/28/23 22:15 Resp 19 11/28/23 22:15 BP 134/74 11/29/23 00:02 Pulse Ox 95 11/28/23 22:15 O2 Del Method Nasal Cannula 11/28/23 22:15 O2 Flow Rate 2 11/28/23 22:15 BMI result Body Mass Index 42.9 Appearance: Alert.?Oriented to person, place and time. No acute distress.?Normal affect. Head: normocephalic Eyes: Pupils equal, round and reactive to light.? EOMI. No nystagmus. ENT: Pharynx normal.?? Neck: Normal inspection.? Neck supple.??No midline cervical spine tenderness, step-offs, deformities. CVS: Heart sounds normal. Normal heart rate and rhythm.? Pulses normal.?? Respiratory: No respiratory distress.? Lung sounds clear to auscultation bilaterally?? Abdomen: Soft and non-tender. Normoactive bowel sounds. Skin: Skin warm and dry.? Normal skin color.? ?? Extremities: Bilateral lower extremity edema nonpitting on the left, 3+ on the right with mild erythema tenderness upon palpation decreased AROM. Left DP/PT pulse 2 +, right DP/PT pulse unable to palpate, Doppler signal is present. Left hand/wrist with swelling, erythema, decreased AROM, 2+ radial pulse. Neuro: Moves all extremities spontaneously. Sensation intact bilaterally. CN II-XII intact. No focal neuro deficits. Course Reevaluation(s) Reevaluation #1: BNP 1348, on home furosemide, with hypoxia and shortness of breath concern for CHF exacerbation, patient to receive furosemide 40 mg IV, CXR without focal consolidation, prominent central vasculature, can use with mild congestion. CT of the head without acute intracranial abnormalities, cervical spine without acute fracture, degenerative changes present. CT of the lumbar spine with degenerative changes no acute pathology. Elevated uric acid of 7.7. XR of the left hand with significant arthritic changes and erosion most severe 2nd through 5th proximal interphalangeal joints can concerning for inflammatory arthritides, XR of the right foot without acute fracture or dislocation, arthritic changes present and significant dorsal soft tissue swelling. Both the left hand and right foot are erythematous and warm, given his history alcohol use disorder, concern for gout arthritis start on prednisone. Patient is feeling anxious, concern that he will be in withdrawal from alcohol, requesting medication at this time, nursing staff to obtain CIWA, initiating phenobarbital. Planning for hospital admission, spoke with hospitalist Dr. Vences Medications Administered Discontinued Medications Generic Name Dose Route Start Last Admin Trade Name Marleny PRN Reason Stop Dose Admin Furosemide 40 mg 11/28/23 22:49 11/29/23 00:02 Furosemide 40 Mg/4 Ml Vial IVPUSH 11/28/23 22:50 40 mg ONCE ONE Administration Protocol Phenobarbital Sodium 384 mg 11/29/23 00:00 11/29/23 00:01 Phenobarbital Sodium 130 Mg/Ml Im Once IM 11/29/23 00:01 384 mg ONCE ONE Administration Prednisone 60 mg 11/28/23 22:49 11/29/23 00:03 Prednisone 20 Mg Tablet PO 11/28/23 22:50 60 mg ONCE ONE Administration Medical Decision Making Medical Decision Making [facility] Narrative: Patient is a 63-year-old male with past medical history of alcohol use disorder, encephalopathy, MJ, CKD, cirrhosis, diabetes, obesity, CHF, atrial fibrillation on Eliquis, depression, gout, hypertension, history of cardiac arrest who presents emergency department for evaluation after reportedly mechanical fall as per HPI. Unclear whether he struck his head he is admitting having a headache currently, plan to obtain CT of the head to exclude ICH, CT cervical spine/lumbar spine to exclude fracture/subluxation. XR of the left hand and right foot to exclude fracture/dislocation. In addition plan to obtain basic labs ethanol level. On review of his record patient was admitted to [facility] 11/21/2023-11/28/2023; acute encephalopathy with return to baseline thought to be secondary to chronic alcohol usage, Neurology recommended EEG however declined; acute hypoxic respiratory failure secondary to cap, completed course of ABX, supplemental oxygen was required during admission, upon discharge ambulatory O2 trial did not qualify him supplemental oxygen; MERLIN with turned to baseline renal function. Differential Diagnosis Differential Diagnoses: The differential diagnosis associated with the presentation includes (See narrative above) Admission/Observation Consideration of admission/observation: Escalation of care including admission/observation considered Lab Data [facility] Lab Attestation statement: I reviewed the patient's lab results. CBC reveals no leukocytosis, normocytic anemia that does not meet transfusion criteria, no thrombocytopenia. No electrolyte derangement. No MERLIN. Elevated uric acid of 7.7. BNP 1348. Alcohol level nondetectable. 11/28/23 21:21 11/28/23 21:21 Labs: Lab Results 11/28/23 Range/Units 21:21 WBC 10.5 (4.8-10.8) X10*3/uL RBC 3.84 L (4.60-5.80) X10*6/uL Hgb 12.0 L (14.0-18.0) g/dl Hct 36.8 L (42.0-52.0) % MCV 95.8 (80.0-98.0) fL MCH 31.3 (27.0-33.0) pg MCHC 32.6 (31.0-36.0) g/dl RDW 14.1 (11.0-16.0) % Plt Count 243 (160-400) X10*3/uL MPV 10.5 (9.4-12.4) fL Immature Gran % (Auto) 0.4 (0.0-0.4) % Neut % (Auto) 71.2 (45-73) % Lymph % (Auto) 14.2 L (20-40) % [place] % (Auto) 12.1 H (2-11) % Eos % (Auto) 1.6 (0-4) % Baso % (Auto) 0.5 (0-2) % Lymph # (Auto) 1.5 (1.2-4.9) X10*3/uL [place] # (Auto) 1.3 H (0.1-1.2) X10*3/uL Eos # (Auto) 0.2 (0.0-0.4) X10*3/uL Baso # (Auto) 0.1 (0.0-0.2) X10*3/uL Abs Immat Gran (auto) 0.04 H (0.00-0.03) X10*3/uL Absolute Neuts (auto) 7.5 (2.0-8.3) x10*3/uL Absolute Nucleated RBC 0.000 (0.0-0.012) X10*3/uL Nucleated RBC % (auto) 0.0 (0.0-0.2) /100WBC PT 16.6 H (11.1-13.3) SEC INR 1.4 H (0.9-1.1) Sodium 139 (135-145) mmol/L Potassium 4.3 (3.3-5.1) mmol/L Chloride 96 (96-108) mmol/L Carbon Dioxide 33 H (22-29) mmol/L Anion Gap 14 (12-20) BUN 14 (9-16) mg/dL Creatinine 1.04 (0.5-1.4) mg/dL Estim Creat Clear Calc 111.3 Estimated GFR > 60 Random Glucose 110 (60-115) mg/dL Uric Acid 7.7 H (3.4-7.0) mg/dL Calcium 9.4 D (8.4-10.2) mg/dL Total Bilirubin 0.5 (0.0-1.0) mg/dL AST 65 H (5-37) U/L ALT 36 (0-40) U/L Alkaline Phosphatase 164 H (39-117) U/L B-Natriuretic Peptide 1348 H (<100) pg/mL Total Protein 7.3 (6.5-8.0) g/dL Albumin 3.2 L (3.5-5.0) g/dL Ethyl Alcohol < 10 mg/dL Independent Interpretation I performed an independent interpretation of an: CT Scan (No ICH) Radiology Impression Discussion of test interpretation with radiology: I have reviewed the radiologist's reading. Radiologist Impression: CT/CT head/brain wo IV con IMPRESSION: 1. No acute intracranial pathology. 2. There is mild to moderate patchy low attenuation change in the periventricular white matter spaces, commonly associated with chronic microangiopathy. 3. There is paranasal sinusitis. XR/XR hand wrist LT IMPRESSION: There are significant arthritic changes of the left hand, with erosions. 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 The appearance suggests possible inflammatory arthritides, including rheumatoid arthritis, psoriasis, gout and, less likely given marginal erosions, erosive osteoarthritis. Please correlate clinically. XR/XR foot RT min 3V IMPRESSION: 1. No fracture, dislocation or right ankle joint effusion is seen. 2. There are small posterior and moderate plantar calcaneal spurs. 3. There is mild osteoarthritic change of the right first metatarsophalangeal joint. 4. There is soft tissue swelling of the foot, most pronounced dorsally. XR/XR chest 1V IMPRESSION: Low lung volumes without focal consolidation. Prominent central vasculature may reflect mild congestion in the proper clinical setting. Independent Historian Clinical information obtained from an independent historian. History obtained from or confirmed by: EMS External Record Review External record reviewed: Inpatient record Critical Care Time Critical Care Time Critical Care Time: Yes Total Critical Care Time: 35 Attestation: I personally attest to this critical care time spent taking care of the patient exclusive of all other billable procedures was approximately 25 minutes including initial evaluation of patient, ordering tests, x-ray interpretation, EKG interpretation, medical consultation, documentation, re-evaluation. Discharge Plan Discharge Clinical Impression: Acute hypoxic respiratory failure, Alcohol withdrawal, CHF (congestive heart failure), Inflammatory arthritis Patient Disposition: Admitted As Inpatient
--- NOTE | 2023-11-28 20:52 | PC.NURSE ---
pt is intoxicated and a fireball was found in the pt bed.
[2023-11-28 21:24] LABS: MANUAL DIFF FLAG NO
[2023-11-28 21:25] LABS: Basophils Absolute Auto 0.1 X10*3/uL (0.0-0.2); Basophils Percent Auto 0.5 % (0-2); Eosinophils Absolute Auto 0.2 X10*3/uL (0.0-0.4); Eosinophils Percent Auto 1.6 % (0-4); Hematocrit 36.8 % (42.0-52.0); Imm Gran Abs Auto 0.04 X10*3/uL (0.00-0.03); Imm Gran Pct Auto 0.4 % (0.0-0.4); Lymphocytes Absolute Auto 1.5 X10*3/uL (1.2-4.9); Lymphocytes Percent Auto 14.2 % (20-40); Mean Corpuscular HGB Conc 32.6 g/dl (31.0-36.0); Mean Corpuscular Hemoglobin 31.3 pg (27.0-33.0); Mean Corpuscular Volume 95.8 fL (80.0-98.0); Mean Platelet Volume 10.5 fL (9.4-12.4); Monocytes Absolute Auto 1.3 X10*3/uL (0.1-1.2); Monocytes Percent Auto 12.1 % (2-11); Neutrophils Absolute Auto 7.5 x10*3/uL (2.0-8.3); Neutrophils Percent Auto 71.2 % (45-73); Platelet Count 243 X10*3/uL (160-400); Red Blood Count 3.84 X10*6/uL (4.60-5.80); Red Cell Distribution Width 14.1 % (11.0-16.0); White Blood Count 10.5 X10*3/uL (4.8-10.8)
[2023-11-28 21:33] LABS: INTERNATIONAL NORM RATIO 1.4 (0.9-1.1); Prothrombin Time 16.6 SEC (11.1-13.3)
[2023-11-28 21:48] LABS: Alanine Aminotransferase 36 U/L (0-40); Albumin Level 3.2 g/dL (3.5-5.0); Alkaline Phosphatase 164 U/L (39-117); Anion Gap 14 (12-20); Aspartate Amino Transferase 65 U/L (5-37); B Type Natriuretic Peptide 1348 pg/mL (<100); Bilirubin Total 0.5 mg/dL (0.0-1.0); Blood Urea Nitrogen 14 mg/dL (9-16); Calcium 9.4 mg/dL (8.4-10.2); Carbon Dioxide 33 mmol/L (22-29); Chloride 96 mmol/L (96-108); Creatinine Clr Calc Pharmacy 111.3; Estimated Glomerular Filt Rate > 60; Ethanol < 10 mg/dL; Glucose Random 110 mg/dL (60-115); Potassium 4.3 mmol/L (3.3-5.1); Sodium 139 mmol/L (135-145); Total Protein 7.3 g/dL (6.5-8.0)
[2023-11-28 21:54] LABS: Uric Acid 7.7 mg/dL (3.4-7.0)
[2023-11-28 22:15] VITALS: PULSE 95; RESP 19; O2SAT 95
[2023-11-29] VITALS (10 sets, daily range): BP systolic 134–161; BP diastolic 69–84; PULSE 74–102; RESP 16–20; TEMP 36.2–37.4; O2SAT 92–97
[2023-11-29] MEDS: PHENobarbitaL sodium 130 MG/ML IM ONCE 384 MG IM (00:01)
[2023-11-29] MEDS: Furosemide 40 MG/4 ML VIAL IVPUSH ×2 (00:02→08:31)
[2023-11-29] MEDS: predniSONE 20 MG TABLET 60 MG PO (00:03)
--- NOTE | 2023-11-29 00:53 | PM.IMHP ---
History of Present Illness Date of Service: 11/29/23 Chief Complaint: Fall This is a 63-year-old male with pertinent history of alcohol use disorder, hypertension, congestive heart failure with reduced ejection fraction, persistent atrial fibrillation on Eliquis, MJ on CPAP, gastroesophageal reflux disease, tobacco use disorder, mixed hyperlipidemia, [id number] diabetes mellitus presents to the emergency department for evaluation of fall and dyspnea. Patient was recently admitted on 11/21/23 and discharged on 11/28/2023 with acute encephalopathy likely in the setting of alcohol use, acute hypoxemic respiratory failure due to pneumonia, MERLIN and alcohol withdrawal. Patient was weaned down to room air-required oxygen on and off throughout hospitalization but did not qualify for supplemental oxygen. Patient states he went home and was trying to use the wheelchair when he fell. No loss of consciousness, chest discomfort or palpitations prior to the fall. Also reports that he has been having some discomfort with breathing and trouble lying flat due to shortness of breath. Patient reports he drank alcohol on the day of presentation. Also complaining of bilateral pain in small joints of hand and right great toe pain that has been ongoing for many years. No fever, chills, chest discomfort, palpitations, abdominal pain, changes in urinary or bowel habits. In the emergency department, patient requiring 2 L supplemental oxygen. Imaging with pulmonary vascular congestion and BNP found to be elevated. Review of Systems Constitutional: Constitutional: Reports fatigue Cardiovascular: Cardiovascular: Reports dyspnea and Reports orthopnea Respiratory: Respiratory: Reports no additional respiratory complaints and Reports dyspnea Gastrointestinal: Gastrointestinal: Reports no additional gastrointestinal complaints Genitourinary: Genitourinary: Reports no additional male genitourinary complaints Musculoskeletal: Musculoskeletal: Reports arthralgias, Reports joint swelling and Reports limited range of motion Endocrine: Endocrine: Reports fatigue [facility] Medical History Effusion, right knee Screen for STD (sexually transmitted disease) Left ankle swelling Hypomagnesemia Diarrhea Acute UTI Physical exam Nocturia Microhematuria Elevated serum creatinine Morbid obesity Increased ammonia level Weakness of both lower extremities Alcohol use disorder, severe, dependence Dermatitis, unspecified History of cardiac arrest (~05/2020) Nicotine dependence, cigarettes, uncomplicated Personal history of colonic polyps Hypoventilation associated with obesity syndrome Encephalopathy chronic MJ (obstructive sleep apnea) CKD (chronic kidney disease) stage 3, GFR 30-59 ml/min Cirrhosis Diabetes Obesity (BMI 35.0-39.9 without comorbidity) Wernicke encephalopathy Obstructive sleep apnea (adult) (pediatric) Rib fractures CHF (congestive heart failure) Left atrial enlargement Persistent atrial fibrillation Depression Gout Arthritis Anxiety HTN (hypertension) Family History Father Lung cancer Mother No problems noted. Maternal Aunt History of heart attack Sister No problems noted. Brother Cancer of kidney Brother No problems noted. Brother No problems noted. Brother No problems noted. Brother No problems noted. Brother No problems noted. Other Substance use disorder Surgical History History of tracheostomy (~2019) History of bronchoscopy (~2019) History of colonoscopy (~2021) History of esophagogastroduodenoscopy (EGD) (~2021) History of cardioversion (~2020) S/P percutaneous endoscopic gastrostomy (PEG) tube placement (~2019) Social History Household Members: Spouse Housing: House Do you presently have visiting nurse or other home services: No Unable to assess alcohol history related to: Unknown Alcohol intake: current Alcohol intake frequency: 0-2 drinks per day Alcohol type: beer Comment: 1:1 sitter Patient Tobacco Use Status: Current everyday Tobacco user Tobacco use type: Cigarette Cigarette Packs Per Day: 0.5 Cigarettes Per Day: 10.0 Smoked in Last 30 Days: Yes e-Cigarette/Vaping Use: Never Used Second Hand Smoke Exposure: No Use of substances other than those prescribed or required for medical reasons: No Advance Directives: Yes Advance Directives on File: Yes Advance Directives Date on File: 06/05/20 Do you have a plan to hurt others: No Plan service: Yes Current occupational status: unemployed Cognitive needs: No Hearing needs: No Vision needs: No Meds Allergies Allergy/AdvReac Type Severity Reaction Status Date / Time No Known Allergies Allergy Verified 11/28/23 19:46 [No Known Allergies*] Active Medications: Current Medications Pharmacy Consult (Consult Rx Etoh Phenob Im/Po) 1 each MISCELLANE ONCE PRN; Protocol PRN Reason: Consult order Phenobarbital (Phenobarbital 30 Mg Tablet) 60 mg PO BID [facility]; Protocol Stop: 12/01/23 09:01 Phenobarbital (Phenobarbital 30 Mg Tablet) 30 mg PO BID JESSICA; Protocol Stop: 12/03/23 09:01 Phenobarbital (Phenobarbital 15 Mg Tablet) 15 mg PO DAILY [facility]; Protocol Stop: 12/05/23 09:01 Phenobarbital Sodium (Phenobarbital Sodium 130 Mg/Ml Vial Im Q3hx2) 288 mg IM Q3H JESSICA Stop: 11/29/23 06:01 Home Medications ?Medication ?Instructions ?Recorded ?Confirmed ?Last Taken ?Type fluoxetine 40 mg capsule 40 mg PO DAILY 07/13/23 11/21/23 11/20/23 History multivitamin with folic acid 400 1 tab PO DAILY 11/21/23 11/21/23 11/20/23 History mcg tablet (Daily-Carlito (with folic acid)) Physical Exam Vital Signs and Narrative: Vital Signs: Last Vital Signs Temp 99.3 F 11/28/23 19:30 Pulse 95 11/28/23 22:15 Resp 19 11/28/23 22:15 BP 134/74 11/29/23 00:02 Pulse Ox 95 11/28/23 22:15 O2 Del Method Nasal Cannula 11/28/23 22:15 O2 Flow Rate 2 11/28/23 22:15 BMI result Body Mass Index 42.9 Middle-aged male lying in bed in mild distress supplemental oxygen Neck supple Irregularly irregular, S1-S2 heard Bilateral crackles present Abdomen soft nontender, no guarding, no rigidity Patient is awake, alert and oriented to self, place, time and person ; no focal motor deficit Psych: Normal mood Musculoskeletal: Bilateral carpals/metacarpals and right great toe with tenderness and warmth Bilateral pedal edema Results Labs 11/28/23 21:21 11/28/23 21:21 Labs: Laboratory Results - last 24 hr 11/28/23 21:21 MCV 95.8 MCH 31.3 MCHC 32.6 RDW 14.1 Plt Count 243 MPV 10.5 Immature Gran % (Auto) 0.4 Neut % (Auto) 71.2 Lymph % (Auto) 14.2 L Cherry % (Auto) 12.1 H Eos % (Auto) 1.6 Baso % (Auto) 0.5 Lymph # (Auto) 1.5 Cherry # (Auto) 1.3 H Eos # (Auto) 0.2 Baso # (Auto) 0.1 Abs Immat Gran (auto) 0.04 H Absolute Neuts (auto) 7.5 Absolute Nucleated RBC 0.000 Nucleated RBC % (auto) 0.0 PT 16.6 H INR 1.4 H Anion Gap 14 Estim Creat Clear Calc 111.3 Estimated GFR > 60 Random Glucose 110 Uric Acid 7.7 H Calcium 9.4 D Total Bilirubin 0.5 AST 65 H ALT 36 Alkaline Phosphatase 164 H B-Natriuretic Peptide 1348 H Total Protein 7.3 Albumin 3.2 L Ethyl Alcohol < 10 Imaging Radiologist's Impressions: Impressions Foot X-Ray 11/28/23 20:51 IMPRESSION: 1. No fracture, dislocation or right ankle joint effusion is seen. 2. There are small posterior and moderate plantar calcaneal spurs. 3. There is mild osteoarthritic change of the right first metatarsophalangeal joint. 4. There is soft tissue swelling of the foot, most pronounced dorsally. Hand/Wrist X-Ray 11/28/23 20:51 IMPRESSION: There are significant arthritic changes of the left hand, with erosions. 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 The appearance suggests possible inflammatory arthritides, including rheumatoid arthritis, psoriasis, gout and, less likely given marginal erosions, erosive osteoarthritis. Please correlate clinically. Cervical Spine CT 11/28/23 21:01 IMPRESSION: 1. No acute intracranial pathology. 2. There is mild to moderate patchy low attenuation change in the periventricular white matter spaces, commonly associated with chronic microangiopathy. 3. There is paranasal sinusitis. EXAMINATION: CT CERVICAL SPINE WITHOUT CONTRAST CLINICAL INFORMATION: Pain status-post fall. COMPARISON: None available. TECHNIQUE: Contiguous axial imaging was performed through the cervical spine without intravenous administration of contrast. Multiplanar reformatted images are submitted. This CT examination was performed using dose optimization techniques as appropriate, variously including the following: *Automated exposure control *Adjustment of mA and/or kV according to patient size (this includes techniques or standardized protocols for targeted exams where dose is matched to indication/reason for exam; i.e. extremities or head) *Use of iterative reconstruction technique DLP: As above FINDINGS: Vertebral body heights and alignment are normal. At C4-C5 and C5-C6, there is mild disc space narrowing, with vacuum phenomenon and endplate arthropathy. The remaining disc spaces are well-maintained. No acute fracture or spondylolisthesis is seen. The posterior elements are intact. There is no prevertebral soft tissue swelling. The dens is intact. The bilateral lung apices are clear. There is mild biapical paraseptal emphysematous change. IMPRESSION: 1. No acute fracture or spondylolisthesis is seen. 2. There is mild degenerative disc disease at C4-C5 and C5-C6. Fleischner guidelines were followed. Head CT 11/28/23 21:01 IMPRESSION: 1. No acute intracranial pathology. 2. There is mild to moderate patchy low attenuation change in the periventricular white matter spaces, commonly associated with chronic microangiopathy. 3. There is paranasal sinusitis. EXAMINATION: CT CERVICAL SPINE WITHOUT CONTRAST CLINICAL INFORMATION: Pain status-post fall. COMPARISON: None available. TECHNIQUE: Contiguous axial imaging was performed through the cervical spine without intravenous administration of contrast. Multiplanar reformatted images are submitted. This CT examination was performed using dose optimization techniques as appropriate, variously including the following: *Automated exposure control *Adjustment of mA and/or kV according to patient size (this includes techniques or standardized protocols for targeted exams where dose is matched to indication/reason for exam; i.e. extremities or head) *Use of iterative reconstruction technique DLP: As above FINDINGS: Vertebral body heights and alignment are normal. At C4-C5 and C5-C6, there is mild disc space narrowing, with vacuum phenomenon and endplate arthropathy. The remaining disc spaces are well-maintained. No acute fracture or spondylolisthesis is seen. The posterior elements are intact. There is no prevertebral soft tissue swelling. The dens is intact. The bilateral lung apices are clear. There is mild biapical paraseptal emphysematous change. IMPRESSION: 1. No acute fracture or spondylolisthesis is seen. 2. There is mild degenerative disc disease at C4-C5 and C5-C6. Fleischner guidelines were followed. Lumbar Spine CT 11/28/23 21:03 IMPRESSION: No acute findings identified. Degenerative changes as noted above. Chest X-Ray 11/28/23 22:41 IMPRESSION: Low lung volumes without focal consolidation. Prominent central vasculature may reflect mild congestion in the proper clinical setting. Assessment and Plan (1) CHF (congestive heart failure): Status: Acute (2) Alcohol withdrawal: Status: Acute (3) Acute hypoxic respiratory failure: Status: Acute Plan This is a 63-year-old male with pertinent history of alcohol use disorder, hypertension, congestive heart failure with reduced ejection fraction, persistent atrial fibrillation on Eliquis, MJ on CPAP, gastroesophageal reflux disease, tobacco use disorder, mixed hyperlipidemia, [id number] diabetes mellitus presents to the emergency department for evaluation of fall and dyspnea. #. Acute hypoxic respiratory failure due to acute exacerbation of congestive heart failure with reduced ejection fraction: Will admit patient with supplemental oxygen. Initiating IV diuresis. Strict I's and O's. Low-salt diet. On beta-valerie and AIDAN-inhibitor #. Alcohol use disorder with concerns of withdrawal: Initiated on phenobarb protocol in the ER. On thiamine and folic acid. Monitor CIWA. Consulting Addiction Team #. Inflammatory arthritis, acute flare: Initiating p.o. prednisone. #. Persistent atrial fibrillation: On Eliquis #. Fall, mechanical: Patient declined STR during previous hospitalization. Will consult physical therapy #. Hypertension: Continue lisinopril and Norvasc #. Tobacco use disorder: Counseled regarding cessation #. Obesity: Counseled regarding diet and exercise Med rec pending DVT prophylaxis: Anniis Full code Admit as inpatient and will require two night minimum hospital stay for IV diuresis, supplemental oxygen (as above), which is not possible in a lesser acute setting. Quality Stroke Does the patient have a stroke diagnosis?: No VTE Prior VTE?: No VTE Risk Level:: Medical - moderate - high VTE Device Contraindication: Treatment Not Indicated VTE Drug Contraindication: N/A - Med Ordered
--- NOTE | 2023-11-29 01:00 | PC.NURSE ---
Addendum entered by Jaqueline Vides 11/29/23 03:17: Report complete, Pt will be transported to room 350, Pt aware of plan. Original Note: This press writer assumed care of this Pt at 2300. Pt A&Ox3, reports 5/10 right shoulder pain. Pt on 2L via NC, SpO2 96%. IV line placed, Pt medicated per AUG. CIWA score 4. Pt using urinal at bedside.
[2023-11-29] MEDS: PHENobarbitaL sodium 130 MG/ML VIAL IM Q3Hx2 288 MG IM ×2 (03:26→06:13)
[2023-11-29] MEDS: predniSONE 20 MG TABLET 40 MG PO (08:31)
[2023-11-29] MEDS: Nicotine 7 MG PATCH.TD24 TRANSDERMA (08:31)
[2023-11-29] MEDS: 0.9 % Sodium Chloride Flush 3 ML SYRINGE IVFLUSH (08:32)
--- NOTE | 2023-11-29 08:39 | PHA.MEDREC ---
Pharmacy Consult ? Medication Reconciliation Pharmacy has completed the medication reconciliation. Pt recently discharged 11/28/23. Utilized discharge packet.
--- NOTE | 2023-11-29 09:14 | PM.EVENT ---
Event Note Date of Service: 11/29/23 Event Note: This is a 63-year-old male with pertinent history of alcohol use disorder, hypertension, congestive heart failure with reduced ejection fraction, persistent atrial fibrillation on Eliquis, MJ on CPAP, gastroesophageal reflux disease, tobacco use disorder, mixed hyperlipidemia, [id number] diabetes mellitus presents to the emergency department for evaluation of fall and dyspnea. Acute hypoxic respiratory failure due to acute exacerbation of congestive heart failure with reduced ejection fraction supplemental oxygen. Initiating IV diuresis. Strict I's and O's. Low-salt diet. On beta-valerie and AIDAN-inhibitor BNP 1348 IV lasix cardiology consultation Alcohol use disorder with concerns of withdrawal Initiated on phenobarb protocol in the ER. On thiamine and folic acid. Monitor CIWA. Consulting Addiction Team Inflammatory arthritis, acute flare Initiating p.o. prednisone. Persistent atrial fibrillation On Eliquis Fall, mechanical Patient declined STR during previous hospitalization but now willing to go consult physical therapy Hypertension Continue lisinopril and Norvasc Tobacco use disorder Counseled regarding cessation NRT ordered Obesity. BMI 42.9 Counseled regarding diet and exercise DVT prophylaxis: Rosie Attending Dr. Ram Full code Admit as inpatient and will require two night minimum hospital stay for IV diuresis, supplemental oxygen (as above), which is not possible in a lesser acute setting. Time Spent With Patient Time: Total time managing care of this patient today ____ minutes.
--- NOTE | 2023-11-29 09:52 | MHC.CM.PN ---
IMM 11/29/23, PT ADMITTED S/P FALL LESS THAN 24HRS AFTER PT INSISTED ON DC'ING HOME W/SERVICES INSTEAD OF STR ON 11/27, CM MET W/PT WHO REPORTS HE LIVES W/, USES A WALKER AND WAS NOT SEEN BY [facility] HE WAS NOT HOME LONG ENOUGH, PT NOW AGREEABLE TO STR HOWEVER WOULD LIKE FACILITY WHERE HE COULD GO OUT SMOKING, [facility]T SMOKING FACILITY IF PVR UNABLE TO ACCOMMODATE. PER HOSPITALIST PT TO BE SEEN BY CARDIOLOGY AND WILL LIKELY BE CLEARED. PCP/HCP ON FILE VERIFIED.
[2023-11-29 10:05] LABS: MANUAL DIFF FLAG NO
[2023-11-29 10:10] LABS: Basophils Percent Auto 0.4 % (0-2); Hematocrit 38.5 % (42.0-52.0); Hemoglobin 12.6 g/dl (14.0-18.0); Imm Gran Abs Auto 0.06 X10*3/uL (0.00-0.03); Imm Gran Pct Auto 0.7 % (0.0-0.4); Lymphocytes Absolute Auto 0.8 X10*3/uL (1.2-4.9); Lymphocytes Percent Auto 9.3 % (20-40); Mean Corpuscular HGB Conc 32.7 g/dl (31.0-36.0); Mean Corpuscular Hemoglobin 31.3 pg (27.0-33.0); Mean Corpuscular Volume 95.8 fL (80.0-98.0); Mean Platelet Volume 10.9 fL (9.4-12.4); Monocytes Absolute Auto 0.5 X10*3/uL (0.1-1.2); Monocytes Percent Auto 5.5 % (2-11); Neutrophils Absolute Auto 7.2 x10*3/uL (2.0-8.3); Neutrophils Percent Auto 84.1 % (45-73); Platelet Count 261 X10*3/uL (160-400); Red Blood Count 4.02 X10*6/uL (4.60-5.80); Red Cell Distribution Width 13.8 % (11.0-16.0); White Blood Count 8.5 X10*3/uL (4.8-10.8)
[2023-11-29 10:28] LABS: Anion Gap 17 (12-20); Blood Urea Nitrogen 15 mg/dL (9-16); Calcium 9.6 mg/dL (8.4-10.2); Carbon Dioxide 31 mmol/L (22-29); Chloride 92 mmol/L (96-108); Creatinine Clr Calc Pharmacy 108.2; Estimated Glomerular Filt Rate > 60; Glucose Random 318 mg/dL (60-115); Potassium 3.9 mmol/L (3.3-5.1); Sodium 136 mmol/L (135-145)
--- NOTE | 2023-11-29 11:14 | PM.CNCAR ---
History of Present Illness History of Present Illness Date of Service: 11/29/23 Requesting physician: Yvonne Turcios Consult reason: congestive heart failure Chief complaint: Fall Narrative: I was consulted to see Esteban in cardiology consultation today for acute congestive heart failure noted with hypoxemic respiratory failure as well as elevated BNP. Patient was discharged yesterday from the hospital after being admitted with altered mental status and alcohol withdrawal and acute hypoxemic respiratory failure. He was noted to have nonsustained VT although he was clinically asymptomatic and he was on metoprolol therapy with mildly reduced LV ejection fraction. Patient had no complications related to it. Yesterday sent home as he had refused [facility] facility placement. Subsequently went home and says he was being postop by his granddaughter to the patio and the wheelchair got stuck and he toppled over. He fell down and was not feeling well after that. Was having difficulty in getting up requiring multiple people to help him. Subsequently he was noticing to have shortness of breath also. He was brought to the emergency room. Was still little confused and was noted to be short of breath with hypoxemia and chest x-ray finding consistent with CHF along with elevated BNP compared to his baseline in the 1000 range. Was admitted. Today he says he feels well although seems slightly confused. He denies any chest pain or palpitations. He is in chronic persistent atrial fibrillation. Unfortunately continues to use alcohol at home. He is on full oral anticoagulation with Eliquis. Hemodynamically stable. Denied any chest pain yesterday. Also has underlying COPD Review of Systems Constitutional: Constitutional: Reports lethargy Eyes: Eyes: Reports no additional eye complaints Cardiovascular: Cardiovascular: Denies chest pain, Denies leg edema, Denies lightheadedness, Denies Loss of Consciousness, Denies palpitations, Reports dyspnea on exertion and Reports orthopnea Respiratory: Respiratory: Reports cough, Reports dyspnea on exertion and Reports wheezing Gastrointestinal: Gastrointestinal: Reports no additional gastrointestinal complaints Integumentary/Breasts: Skin/Breast: Reports system reviewed and no additional complaints, except as docu Neurologic: Reports system reviewed and no additional complaints, except as documented Endocrine: Endocrine: Reports no additional endocrine complaints and Denies palpitations Allergic/Immunologic: Allergic/Immunologic: Reports wheezing PMFSH Past Medical History Medical History Effusion, right knee Screen for STD (sexually transmitted disease) Left ankle swelling Hypomagnesemia Diarrhea Acute UTI Physical exam Nocturia Microhematuria Elevated serum creatinine Morbid obesity Increased ammonia level Weakness of both lower extremities Alcohol use disorder, severe, dependence Dermatitis, unspecified History of cardiac arrest (~05/2020) Nicotine dependence, cigarettes, uncomplicated Personal history of colonic polyps Hypoventilation associated with obesity syndrome Encephalopathy chronic MJ (obstructive sleep apnea) CKD (chronic kidney disease) stage 3, GFR 30-59 ml/min Cirrhosis Diabetes Obesity (BMI 35.0-39.9 without comorbidity) Wernicke encephalopathy Obstructive sleep apnea (adult) (pediatric) Rib fractures CHF (congestive heart failure) Left atrial enlargement Persistent atrial fibrillation Depression Gout Arthritis Anxiety HTN (hypertension) Family History Family History Father Lung cancer Mother No problems noted. Maternal Aunt History of heart attack Sister No problems noted. Brother Cancer of kidney Brother No problems noted. Brother No problems noted. Brother No problems noted. Brother No problems noted. Brother No problems noted. Other Substance use disorder Surgical History Surgical History History of tracheostomy (~2019) History of bronchoscopy (~2019) History of colonoscopy (~2021) History of esophagogastroduodenoscopy (EGD) (~2021) History of cardioversion (~2020) S/P percutaneous endoscopic gastrostomy (PEG) tube placement (~2019) Social History Social History Household Members: Spouse Housing: House Do you presently have visiting nurse or other home services: No Unable to assess alcohol history related to: Unknown Alcohol intake: current Alcohol intake frequency: 0-2 drinks per day Alcohol type: beer Comment: 1:1 sitter Patient Tobacco Use Status: Current everyday Tobacco user Tobacco use type: Cigarette Cigarette Packs Per Day: 0.5 Cigarettes Per Day: 10.0 Years Smoked: 40 e-Cigarette/Vaping Use: Never Used Second Hand Smoke Exposure: No Advance Directives Date on File: 06/05/20 service: Yes Current occupational status: unemployed Cognitive needs: No Hearing needs: No Vision needs: No Meds Allergies Allergy/AdvReac Type Severity Reaction Status Date / Time No Known Allergies Allergy Verified 06/03/24 19:46 [No Known Allergies*] Active Medications: Current Medications Acetaminophen (Acetaminophen 325 Mg Tablet) 650 mg PO Q6H PRN PRN Reason: Pain, Mild (Pain Scale 1-3) Furosemide (Furosemide 40 Mg/4 Ml Vial) 40 mg IVPUSH DAILY [facility]; Protocol Last Admin: 11/29/23 08:31 Dose: 40 mg Melatonin (Melatonin 3 Mg Tablet) 6 mg PO BEDTIME PRN PRN Reason: Insomnia Nicotine (Nicotine 7 Mg Patch.Td24) 7 mg TRANSDERMA DAILY [facility] Last Admin: 11/29/23 08:31 Dose: 7 mg Ondansetron HCl (Ondansetron Hcl 4 Mg/2 Ml Vial) 4 mg IVPUSH Q8H PRN PRN Reason: Nausea and Vomiting Pharmacy Consult (Consult Rx Etoh Phenob Im/Po) 1 each MISCELLANE ONCE PRN; Protocol PRN Reason: Consult order Phenobarbital (Phenobarbital 30 Mg Tablet) 60 mg PO BID [facility]; Protocol Stop: 12/01/23 09:01 Phenobarbital (Phenobarbital 30 Mg Tablet) 30 mg PO BID [facility]; Protocol Stop: 12/03/23 09:01 Phenobarbital (Phenobarbital 15 Mg Tablet) 15 mg PO DAILY [facility]; Protocol Stop: 12/05/23 09:01 Prednisone (Prednisone 20 Mg Tablet) 40 mg PO DAILY [facility] Last Admin: 11/29/23 08:31 Dose: 40 mg Sodium Chloride (0.9 % Sodium Chloride Flush 3 Ml Syringe) 3 ml IVFLUSH QSHIFT [facility] Last Admin: 11/29/23 08:32 Dose: 3 ml Home Medications ?Medication ?Instructions ?Recorded ?Confirmed ?Last Taken ?Type fluoxetine 40 mg capsule 40 mg PO DAILY 07/13/23 11/29/23 11/20/23 History multivitamin with folic acid 400 1 tab PO DAILY 11/21/23 11/29/23 11/20/23 History mcg tablet (Daily-Carlito (with folic acid)) Physical Exam Vital Signs: Vital Signs: Last Vital Signs Temp 97.7 F 11/29/23 07:45 Pulse 93 11/29/23 07:45 Resp 20 11/29/23 07:45 BP 135/84 11/29/23 08:31 Pulse Ox 93 11/29/23 07:45 O2 Del Method Nasal Cannula 11/29/23 07:45 O2 Flow Rate 2.0 11/29/23 07:45 BMI result Body Mass Index 42.9 Const: General: cooperative, comfortable, alert, awake and poor hygiene Nutritional Appearance: obese Orientation/consciousness: patient oriented x3 HEENT: Head: Yes normocephalic and Yes atraumatic Neck: Neck: Yes trachea midline, Yes supple and Yes other (Difficult to evaluate JVD) Resp: Effort & Inspection: normal respiratory effort Auscultation: no rales and no rhonchi Cardio: Rate: regular rate Rhythm: abnormal rhythm irregularly irregular Heart sounds: S1 normal heart sound present, S2 normal heart sound present, no click, no gallops and Murmur heart sound present systolic early GI: Inspection: Yes obesity Auscultation: normal bowel sounds Skin: General skin exam: no rashes or lesions noted and ecchymosis Neuro: General: patient oriented x3 and no focal motor deficits Extrem: General: No clubbing, No cyanosis and Yes edema (Minimal) Objective Labs and Meds 11/29/23 09:41 11/29/23 09:41 Lab results: Laboratory Results - last 24 hr 11/28/23 11/29/23 21:21 09:41 WBC 10.5 8.5 RBC 3.84 L 4.02 L Hgb 12.0 L 12.6 L Hct 36.8 L 38.5 L MCV 95.8 95.8 MCH 31.3 31.3 MCHC 32.6 32.7 RDW 14.1 13.8 Plt Count 243 261 MPV 10.5 10.9 Immature Gran % (Auto) 0.4 0.7 H Neut % (Auto) 71.2 84.1 H Lymph % (Auto) 14.2 L 9.3 L [place] % (Auto) 12.1 H 5.5 Eos % (Auto) 1.6 0.0 Baso % (Auto) 0.5 0.4 Lymph # (Auto) 1.5 0.8 L [place] # (Auto) 1.3 H 0.5 Eos # (Auto) 0.2 0.0 Baso # (Auto) 0.1 0.0 Abs Immat Gran (auto) 0.04 H 0.06 H Absolute Neuts (auto) 7.5 7.2 Absolute Nucleated RBC 0.000 0.000 Nucleated RBC % (auto) 0.0 0.0 PT 16.6 H INR 1.4 H Sodium 139 136 Potassium 4.3 3.9 Chloride 96 92 L Carbon Dioxide 33 H 31 H Anion Gap 14 17 BUN 14 15 Creatinine 1.04 1.07 Estim Creat Clear Calc 111.3 108.2 Estimated GFR > 60 > 60 Random Glucose 110 318 H Uric Acid 7.7 H Calcium 9.4 D 9.6 Total Bilirubin 0.5 AST 65 H ALT 36 Alkaline Phosphatase 164 H B-Natriuretic Peptide 1348 H Total Protein 7.3 Albumin 3.2 L Ethyl Alcohol < 10 Imaging Radiologist's impression: Impressions Foot X-Ray 11/28/23 20:51 IMPRESSION: 1. No fracture, dislocation or right ankle joint effusion is seen. 2. There are small posterior and moderate plantar calcaneal spurs. 3. There is mild osteoarthritic change of the right first metatarsophalangeal joint. 4. There is soft tissue swelling of the foot, most pronounced dorsally. Hand/Wrist X-Ray 11/28/23 20:51 IMPRESSION: There are significant arthritic changes of the left hand, with erosions. 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 The appearance suggests possible inflammatory arthritides, including rheumatoid arthritis, psoriasis, gout and, less likely given marginal erosions, erosive osteoarthritis. Please correlate clinically. Cervical Spine CT 11/28/23 21:01 IMPRESSION: 1. No acute intracranial pathology. 2. There is mild to moderate patchy low attenuation change in the periventricular white matter spaces, commonly associated with chronic microangiopathy. 3. There is paranasal sinusitis. EXAMINATION: CT CERVICAL SPINE WITHOUT CONTRAST CLINICAL INFORMATION: Pain status-post fall. COMPARISON: None available. TECHNIQUE: Contiguous axial imaging was performed through the cervical spine without intravenous administration of contrast. Multiplanar reformatted images are submitted. This CT examination was performed using dose optimization techniques as appropriate, variously including the following: *Automated exposure control *Adjustment of mA and/or kV according to patient size (this includes techniques or standardized protocols for targeted exams where dose is matched to indication/reason for exam; i.e. extremities or head) *Use of iterative reconstruction technique DLP: As above FINDINGS: Vertebral body heights and alignment are normal. At C4-C5 and C5-C6, there is mild disc space narrowing, with vacuum phenomenon and endplate arthropathy. The remaining disc spaces are well-maintained. No acute fracture or spondylolisthesis is seen. The posterior elements are intact. There is no prevertebral soft tissue swelling. The dens is intact. The bilateral lung apices are clear. There is mild biapical paraseptal emphysematous change. IMPRESSION: 1. No acute fracture or spondylolisthesis is seen. 2. There is mild degenerative disc disease at C4-C5 and C5-C6. Fleischner guidelines were followed. Head CT 11/28/23 21:01 IMPRESSION: 1. No acute intracranial pathology. 2. There is mild to moderate patchy low attenuation change in the periventricular white matter spaces, commonly associated with chronic microangiopathy. 3. There is paranasal sinusitis. EXAMINATION: CT CERVICAL SPINE WITHOUT CONTRAST CLINICAL INFORMATION: Pain status-post fall. COMPARISON: None available. TECHNIQUE: Contiguous axial imaging was performed through the cervical spine without intravenous administration of contrast. Multiplanar reformatted images are submitted. This CT examination was performed using dose optimization techniques as appropriate, variously including the following: *Automated exposure control *Adjustment of mA and/or kV according to patient size (this includes techniques or standardized protocols for targeted exams where dose is matched to indication/reason for exam; i.e. extremities or head) *Use of iterative reconstruction technique DLP: As above FINDINGS: Vertebral body heights and alignment are normal. At C4-C5 and C5-C6, there is mild disc space narrowing, with vacuum phenomenon and endplate arthropathy. The remaining disc spaces are well-maintained. No acute fracture or spondylolisthesis is seen. The posterior elements are intact. There is no prevertebral soft tissue swelling. The dens is intact. The bilateral lung apices are clear. There is mild biapical paraseptal emphysematous change. IMPRESSION: 1. No acute fracture or spondylolisthesis is seen. 2. There is mild degenerative disc disease at C4-C5 and C5-C6. Fleischner guidelines were followed. Lumbar Spine CT 11/28/23 21:03 IMPRESSION: No acute findings identified. Degenerative changes as noted above. Chest X-Ray 11/28/23 22:41 IMPRESSION: Low lung volumes without focal consolidation. Prominent central vasculature may reflect mild congestion in the proper clinical setting. Assessment and Plan (1) CHF exacerbation: Status: Resolved Patient came in fall and then leading to hypoxemia with hypoxemic respiratory failure with evidence of decompensated congestive heart failure. Given acute stress there could be some component of ischemic heart failure and may require further workup as he has had high risk for obstructive coronary artery disease. However clinically doing better and improved. However still needs more diuresis. Will continue IV diuresis for 1 more day. Strict intake and output chart needs to be pursued. Difficult to evaluate fluid overload on this gentleman given his body habitus. Will check BMP and BNP tomorrow. I would continue metoprolol therapy for rate control as well as neurohormonal modulation. Also should be on low-dose valsartan 20 mg b.i.d. for neurohormonal modulation will further uptitrate it. Complete cessation of alcohol drinking was discussed with him. Continue supportive care for his COPD. Out of bed to chair. (2) Afib: Status: Inactive Chronic rate control atrial fibrillation has failed rhythm control approach given his overall difficult compliance. Advise continue rate control with metoprolol. Continue full oral anticoagulation with Eliquis. Complete cessation of alcohol was discussed. At this point time will sign of the case. Will follow-up as need be. Thank you for allowing me to partake in his care Procedures Date of Service Date of Service: 11/29/23
[2023-11-29] MEDS: PHENobarbitaL 30 MG TABLET 60 MG PO (20:03)
--- NOTE | 2023-11-29 23:00 | PC.NURSE ---
Assumed care of patient at this time.
[2023-11-30 00:16] LABS: Glucose, Whole Blood 199 mg/dL (60-115)
[2023-11-30 03:11] VITALS: BP 129/80; PULSE 64; RESP 20; TEMP 36.2; O2SAT 95
[2023-11-30 07:56] LABS: Glucose, Whole Blood 135 mg/dL (60-115)
[2023-11-30 08:00] VITALS: BP 153/66; PULSE 78; RESP 20; TEMP 36; O2SAT 97
[2023-11-30 08:34] LABS: Anion Gap 14 (12-20); Blood Urea Nitrogen 19 mg/dL (9-16); Calcium 9.6 mg/dL (8.4-10.2); Carbon Dioxide 34 mmol/L (22-29); Chloride 94 mmol/L (96-108); Creatinine Clr Calc Pharmacy 136.2; Estimated Glomerular Filt Rate > 60; Glucose Random 123 mg/dL (60-115); Potassium 3.6 mmol/L (3.3-5.1); Sodium 138 mmol/L (135-145)
[2023-11-30 08:41] LABS: B Type Natriuretic Peptide 595 pg/mL (<100)
[2023-11-30 09:04] VITALS: BP 153/66
[2023-11-30] MEDS: Valsartan 40 MG TABLET 20 MG PO (09:04)
[2023-11-30 09:05] VITALS: BP 153/66
[2023-11-30] MEDS: predniSONE 20 MG TABLET 40 MG PO (09:05)
[2023-11-30] MEDS: Furosemide 40 MG/4 ML VIAL IVPUSH (09:05)
[2023-11-30] MEDS: 0.9 % Sodium Chloride Flush 3 ML SYRINGE IVFLUSH (09:06)
[2023-11-30] MEDS: Nicotine 7 MG PATCH.TD24 TRANSDERMA (09:06)
[2023-11-30] MEDS: PHENobarbitaL 30 MG TABLET 60 MG PO (09:06)
--- NOTE | 2023-11-30 09:29 | PM.DS ---
DS: Providers Provider Date of Service: 11/30/23 Date of admission: 11/29/23 00:52 Primary care physician: EVELYN Mckoy Consults: 11/29/23 07:14 Consult to Cardiology Routine Consulting Provider: [facility] Reason for consultation: chf DS: Diagnosis Discharge Diagnosis (1) CHF exacerbation: Status: Resolved (2) Afib: Status: Inactive DS: Summary Hospital Course Hospital Course: History and physical as per admitting provider. This is a 63-year-old male with pertinent history of alcohol use disorder, hypertension, congestive heart failure with reduced ejection fraction, persistent atrial fibrillation on Eliquis, MJ on CPAP, gastroesophageal reflux disease, tobacco use disorder, mixed hyperlipidemia, bag-vpjjiqk-gebguwovs diabetes mellitus presents to the emergency department for evaluation of fall and dyspnea. Patient was recently admitted on 11/21/23 and discharged on 11/28/2023 with acute encephalopathy likely in the setting of alcohol use, acute hypoxemic respiratory failure due to pneumonia, MERLIN and alcohol withdrawal. Patient was weaned down to room air-required oxygen on and off throughout hospitalization but did not qualify for supplemental oxygen. Patient states he went home and was trying to use the wheelchair when he fell. No loss of consciousness, chest discomfort or palpitations prior to the fall. Also reports that he has been having some discomfort with breathing and trouble lying flat due to shortness of breath. Patient reports he drank alcohol on the day of presentation. Also complaining of bilateral pain in small joints of hand and right great toe pain that has been ongoing for many years. No fever, chills, chest discomfort, palpitations, abdominal pain, changes in urinary or bowel habits. In the emergency department, patient requiring 2 L supplemental oxygen. Imaging with pulmonary vascular congestion and BNP found to be elevated. 63-year-old man treated for acute hypoxic respiratory failure secondary to acute heart failure with reduced ejection fraction exacerbation. Treated with supplemental oxygen, IV diuresis. Seen evaluated by Cardiology, recommended starting valsartan, continue beta-valerie and AIDAN inhibitor. Alcohol use disorder. Patient treated for alcohol withdrawal during previous hospitalization for 10 days. During this hospitalization he did not require any treatment for alcohol withdrawal as he had already been detox. Patient has no not require anyone on 1 sitter or video monitoring for any reason. Has been on thiamine, folic acid and multivitamin. Patient should continue alcohol cessation. History of inflammatory arthritis. Continue oral prednisone Hypertension. Continue lisinopril and Norvasc, valsartan added Tobacco use disorder. Continue nicotine replacement therapy Obesity. BMI 42.9. Discussed importance of weight management as this may be contributing to worsening of other comorbidities Fall, mechanical. Physical therapy recommended short-term rehab. Less than 30 day stay expected. Time Attestation Discharge Coordination Time (in mins): 35 Quality: Safe Use of Opioids Does Pt have an Active Cancer Diagnosis on the Problem List?: No Quality: Stroke Does the patient have a stroke diagnosis?: No Physical Exam Vital Signs: Vital Signs: Last Vital Signs Temp 96.8 F 11/30/23 08:00 Pulse 78 11/30/23 08:00 Resp 20 11/30/23 08:00 BP 153/66 H 11/30/23 09:05 Pulse Ox 97 11/30/23 08:00 O2 Del Method Nasal Cannula 11/30/23 08:00 O2 Flow Rate 2 11/30/23 08:00 BMI result Body Mass Index 42.9 Appearing in no acute distress head is normocephalic atraumatic eyes pupils are PERRLA sclera is anicteric mouth throat mucous membranes are intact and moist neck is supple no lymphadenopathy, no JVD noted lung sounds are clear to auscultation heart regular rate rhythm, clear S1, S2 positive bowel sounds, abdomen is soft, nontender, obese neuro patient is alert x3, no focal deficits Mild chronic LE edema DS: Data Data Completed and Pending Completed studies during hospitalization [Text1]: Procedures Assistance with Respiratory Ventilation, Less than 24 Consecutive Hours, Continuous Positive Airway Pressure (07/13/23) Bypass Trachea to Cutaneous with Tracheostomy Device, Percutaneous Approach (05/30/20) Change Tracheostomy Device in Trachea, External Approach (05/30/20) Detoxification Services for Substance Abuse Treatment (03/30/23) Drainage of Left Lower Lung Lobe, Via Natural or Artificial Opening Endoscopic, Diagnostic (05/30/20) Insertion of Endotracheal Airway into Trachea, Via Natural or Artificial Opening (05/30/20) Insertion of Feeding Device into Stomach, Percutaneous Approach (05/30/20) Insertion of Infusion Device into Right Atrium, Percutaneous Approach (05/30/20) Insertion of Infusion Device into Superior Vena Cava, Percutaneous Approach (05/30/20) Performance of Cardiac Output, Single, Manual (05/30/20) Performance of Urinary Filtration, Intermittent, Less than 6 Hours Per Day (05/30/20) Respiratory Ventilation, Greater than 96 Consecutive Hours (05/30/20) Ultrasonography of Superior Vena Cava, Guidance (05/30/20) Labs on day of discharge: Laboratory Results - last 24 hr 11/29/23 11/30/23 11/30/23 09:41 00:11 07:13 WBC 8.5 RBC 4.02 L Hgb 12.6 L Hct 38.5 L MCV 95.8 MCH 31.3 MCHC 32.7 RDW 13.8 Plt Count 261 MPV 10.9 Immature Gran % (Auto) 0.7 H Neut % (Auto) 84.1 H Lymph % (Auto) 9.3 L [place] % (Auto) 5.5 Eos % (Auto) 0.0 Baso % (Auto) 0.4 Lymph # (Auto) 0.8 L [place] # (Auto) 0.5 Eos # (Auto) 0.0 Baso # (Auto) 0.0 Abs Immat Gran (auto) 0.06 H Absolute Neuts (auto) 7.2 Absolute Nucleated RBC 0.000 Nucleated RBC % (auto) 0.0 Sodium 136 Potassium 3.9 Chloride 92 L Carbon Dioxide 31 H Anion Gap 17 BUN 15 Creatinine 1.07 Estim Creat Clear Calc 108.2 Estimated GFR > 60 POC Glucose 199 H 135 H Random Glucose 318 H Calcium 9.6 B-Natriuretic Peptide 11/30/23 07:54 WBC RBC Hgb Hct MCV MCH MCHC RDW Plt Count MPV Immature Gran % (Auto) Neut % (Auto) Lymph % (Auto) [place] % (Auto) Eos % (Auto) Baso % (Auto) Lymph # (Auto) [place] # (Auto) Eos # (Auto) Baso # (Auto) Abs Immat Gran (auto) Absolute Neuts (auto) Absolute Nucleated RBC Nucleated RBC % (auto) Sodium 138 Potassium 3.6 Chloride 94 L Carbon Dioxide 34 H Anion Gap 14 BUN 19 H Creatinine 0.85 Estim Creat Clear Calc 136.2 Estimated GFR > 60 POC Glucose Random Glucose 123 H Calcium 9.6 B-Natriuretic Peptide 595 H Discharge Plan Discharge Anticipated Discharge Date/Time: 11/30/23 09:34 Patient Disposition: Xfer Inpatient Rehab Fac Discharge Diagnosis: Acute hypoxic respiratory failure Heart failure with reduced ejection fraction exacerbation Mechanical fall Referrals: [facility] [Outside] - 1 Day (SHORT TERM REHAB) Discharge Medications: New valsartan 40 mg Tablet 20 mg PO BID Qty: 60 0RF Protocol: Hold for SBP< HOLD for SBP < : 90 prednisone 10 mg tablet See Taper PO DIRECTED Qty: 30 0RF Taper: Prednisone 40 mg daily for 3 Days and 0 Hour 30 mg daily for 3 Days and 0 Hour 20 mg daily for 3 Days and 0 Hour 10 mg daily for 3 Days and 0 Hour Rx Instructions: see taper instructions Continued (DME) blood-glucose meter [FreeStyle Lite Meter] Kit See Rx Instructions .ROUTE .MEDSUPPLY Qty: 1 0RF Rx Instructions: check sugar twice a day (DME) lancets [FreeStyle Lancets] 28 gauge misc See Rx Instructions .ROUTE .MEDSUPPLY Qty: 100 2RF Rx Instructions: check sugar twice a day (DME) FreeStyle David 2 Claunch Misc See Rx Instructions .Route Qty: 1 0RF Rx Instructions: tid testing (DME) FreeStyle David 2 Sensor Kit See Rx Instructions .Route Qty: 1 3RF Rx Instructions: tid testing amlodipine 5 mg tablet 5 mg PO DAILY Qty: 90 1RF Eliquis 5 mg tablet 5 mg PO BID Qty: 180 1RF folic acid 1 mg tablet 1 mg PO DAILY Qty: 90 1RF gabapentin 300 mg capsule 300 mg PO BID 30 Days Qty: 60 4RF furosemide 20 mg tablet 30 mg PO DAILY Qty: 135 1RF lisinopril 2.5 mg tablet 2.5 mg PO DAILY Qty: 90 1RF omeprazole 20 mg capsule,delayed release(DR/EC) 40 mg PO DAILY@0630 Qty: 180 1RF rosuvastatin 5 mg tablet 5 mg PO DAILY Qty: 90 1RF metformin 850 mg tablet 850 mg PO DAILY Qty: 90 1RF albuterol sulfate 90 mcg/actuation HFA aerosol inhaler 2 puff inhalation QID PRN (Reason: Wheezing) Qty: 8.5 0RF metoprolol tartrate 50 mg tablet 50 mg PO BID Qty: 180 0RF Protocol: Hold for SBP/HR < HOLD for SBP < : 90 HOLD for HR < : 60 fluoxetine 40 mg capsule 40 mg PO DAILY multivitamin with folic acid [Daily-Carlito (with folic acid)] 400 mcg tablet 1 tab PO DAILY nicotine 7 mg/24 hr Patch 24 Hour 7 mg transdermal DAILY Qty: 14 0RF thiamine mononitrate (vit B1) 100 mg Tablet 100 mg PO DAILY Qty: 30 0RF acetaminophen [Tylenol Arthritis Pain] 650 mg tablet extended release 650 mg PO Q12H PRN (Reason: pain) 30 Days Qty: 60 0RF Discharge Orders: Discharge Order (Routine); Ordered 11/30/23 Ordered By: Yvonne Turcios Diet: Advance to usual diet Activity on Discharge: As tolerated Stand Alone Forms: Patient Portal Discharge page Print Language: Greenlandic Care Plan Goals: You were started on a new medication called valsartan, continue to take as prescribed complete prednisone taper for inflammatory arthritis Health Concerns: Acute hypoxic respiratory failure Heart failure with reduced ejection fraction exacerbation Mechanical fall Plan of Treatment: Follow-up with primary care provider as needed Take all medications as prescribed Assessment: See discharge summary
[2023-11-30 11:19] LABS: Glucose, Whole Blood 199 mg/dL (60-115)
[2023-11-30] MEDS: Insulin Lispro 100 UNIT/ML 3 ML VIAL SUBCUT (12:26)
--- NOTE | 2023-11-30 13:12 | MHC.CM.PN ---
pt medically cleared for dc [facility] at [facility]pm[facility] for bls transport
== END 2023-11-30 13:40 | DRG 291 ==
LOC: HO.ED 20:58 → HO.EDOVER 11-29 00:54 → HO.S3 11-29 01:28
PROVIDERS: Nurse Practitioner Family; Admitting Provider Student in an Organized Health Care Education/Training Program; Emergency Provider Internal Medicine; PCP Nurse Practitioner Family; Visit Provider Nurse Practitioner Acute Care
DX: I11.0 Hypertensive heart disease with heart failure (principal); I50.23 Acute on chronic systolic (congestive) heart failure; J96.01 Acute respiratory failure with hypoxia; F10.239 Alcohol dependence with withdrawal, unspecified; I48.19 Other persistent atrial fibrillation; Z68.41 Body mass index [BMI] 40.0-44.9, adult; E66.9 Obesity, unspecified; G47.33 Obstructive sleep apnea (adult) (pediatric); M06.4 Inflammatory polyarthropathy; W19.XXXA Unspecified fall, initial encounter; E78.2 Mixed hyperlipidemia; F17.210 Nicotine dependence, cigarettes, uncomplicated; Z71.6 Tobacco abuse counseling; Z79.01 Long term (current) use of anticoagulants; Z79.84 Long term (current) use of oral hypoglycemic drugs; Z79.899 Other long term (current) drug therapy
CPT/HCPCS: 36415; 70450; 71045; 72125; 72132; 73110; 73130; 73630; 80048; 80053; 80307; 82947; 83880; 84550; 85025; 85610; 94660; 97162; 99285; J1940; J2560; Q9957

== ENCOUNTER → 2023-11-29 00:52 | Outpatient (BNV) | payer MEDICARE, OTHER, MEDICAID, SELFPAY | PROVIDERS: Admitting Provider Student in an Organized Health Care Education/Training Program; Emergency Provider Internal Medicine; PCP Nurse Practitioner Family; Visit Provider Internal Medicine Cardiovascular Disease | DX: I50.9 Heart failure, unspecified (principal); I48.91 Unspecified atrial fibrillation | CPT/HCPCS: 99222 ==

== ENCOUNTER → 2023-11-29 00:52 | Outpatient (BNV) | payer MEDICARE, OTHER, MEDICAID, SELFPAY | PROVIDERS: Admitting Provider Student in an Organized Health Care Education/Training Program; Emergency Provider Internal Medicine; Visit Provider Student in an Organized Health Care Education/Training Program | DX: I50.9 Heart failure, unspecified (principal); I48.91 Unspecified atrial fibrillation | CPT/HCPCS: 99223; 99239; 99499 ==

== ENCOUNTER 2024-01-18 04:52 | Inpatient (IN) | payer MEDICARE, OTHER, MEDICAID, SELFPAY ==
[2024-01-18] VITALS (20 sets, daily range): BP systolic 106–152; BP diastolic 60–96; PULSE 73–113; RESP 15–23; TEMP 36.1–37.7; O2SAT 79–95; BMI 44.0; BMI 43.4
--- NOTE | 2024-01-18 | ECG_ITS ---
Test Reason : SOB Blood Pressure : / mmHG Vent. Rate : 077 BPM Atrial Rate : 000 BPM P-R Int : 000 ms QRS Dur : 092 ms QT Int : 390 ms P-R-T Axes : 000 098 054 degrees QTc Int : 441 ms Atrial fibrillation Rightward axis Low voltage QRS Abnormal ECG When compared with ECG of 21-NOV-2023 13:15, No significant change was found Referred By: Tony Stewart Electronically Signed By:SACHI ELENA
--- NOTE | ~2024-01-18 | CT_ITS ---
EXAMINATION: NONCONTRAST HEAD CT NONCONTRAST CERVICAL SPINE CT INDICATION INFORMATION: Fall, trauma, on anticoagulation COMPARISON: 11/28/2023 TECHNIQUE: Separate noncontrast CT examinations of the head and cervical spine were performed. Coronal head CT images and coronal and sagittal cervical spine images were created at the technologist workstation. DLP: 1918 mGy-cm DOSE LOWERING TECHNIQUES: This CT examination was performed using dose optimization techniques as appropriate, variously including the following: - Automated exposure control - Adjustment of mA and/or kV according to patient size (this includes techniques or standardized protocols for targeted exams were dose is matched to indication/reason for exam; i.e. extremities or head) - Use of iterative reconstruction technique FINDINGS: Head: There is no evidence of acute intracranial hemorrhage or territorial infarction. No abnormal mass-effect or midline shift is seen. Mir to white matter differentiation is well preserved. No extra-axial fluid collections are identified. The ventricles are normal in size. There is mild periventricular white matter hypoattenuation consistent with chronic small vessel ischemic disease. Mild volume loss is noted. Stable chronic small hypoattenuating focus in the high left frontal lobe. The osseous structures and soft tissues are normal. Partially opacified left mastoid air cells. Partially opacified left maxillary sinus with suspected mucus retention cyst. Cervical spine: There is degenerative change at the atlantodens articulation. There is anatomic alignment of the vertebral bodies and posterior elements. Vertebral body heights are maintained. Mild multilevel facet arthropathy. Disc space narrowing and mild endplate osteophytes in the mid to lower cervical spine. No evidence of acute fracture. No prevertebral soft tissue swelling. Partially visualized small left pleural effusion. The thyroid gland is unremarkable. CT/CT cervical spine wo IV con IMPRESSION: 1. No acute findings identified in the head or cervical spine. 2. Chronic and degenerative changes as noted above. 3. Partially visualized small left pleural effusion.
--- NOTE | ~2024-01-18 | XR_ITS ---
EXAMINATION: XR KNEE, LEFT XR KNEE, RIGHT CLINICAL INDICATION: Fall, landing on knees COMPARISON: 11/25/2023, 04/04/2023 TECHNIQUE: 2 views of the left knee. 2 views of the right knee. FINDINGS: Left knee: Osseous alignment is anatomic. Mild tricompartmental joint space narrowing. No acute fracture is seen. No significant effusion. Scattered vascular calcifications in the thigh. Right knee: Osseous alignment is anatomic. Mild tricompartmental joint space narrowing. No acute fracture is seen. No significant effusion. Chronic deformity of the proximal right fibular shaft redemonstrated. XR/XR knee RT 2V IMPRESSION: No acute findings identified in either knee. Chronic changes as noted above.
--- NOTE | ~2024-01-18 | XR_ITS ---
EXAMINATION: XR CHEST CLINICAL INFORMATION: Shortness of breath, CHF COMPARISON: 11/28/2023 TECHNIQUE: Frontal view of the chest was obtained. FINDINGS: Lung volumes are symmetric. Streaky opacities at the left greater than right lung bases, suggesting atelectasis. No evidence of pneumothorax. Small left pleural effusion cannot be excluded. Mild prominence of the central vasculature without overt edema. Cardiac silhouette remains enlarged. No acute osseous findings are seen. XR/XR chest 1V IMPRESSION: Mild prominence of the central vasculature without overt edema. Streaky bibasilar opacities suggesting atelectasis. Cardiac silhouette remains enlarged.
--- NOTE | ~2024-01-18 | XR_ITS ---
EXAMINATION: XR KNEE, LEFT XR KNEE, RIGHT CLINICAL INDICATION: Fall, landing on knees COMPARISON: 11/25/2023, 04/04/2023 TECHNIQUE: 2 views of the left knee. 2 views of the right knee. FINDINGS: Left knee: Osseous alignment is anatomic. Mild tricompartmental joint space narrowing. No acute fracture is seen. No significant effusion. Scattered vascular calcifications in the thigh. Right knee: Osseous alignment is anatomic. Mild tricompartmental joint space narrowing. No acute fracture is seen. No significant effusion. Chronic deformity of the proximal right fibular shaft redemonstrated. XR/XR knee LT 2V IMPRESSION: No acute findings identified in either knee. Chronic changes as noted above.
--- NOTE | 2024-01-18 05:00 | ED.SOB ---
HPI - SOB/Dyspnea General Chief Complaint: Dyspnea Stated Complaint: sob Time Seen by Provider: 01/18/24 05:00 History of Present Illness ED Provider: brisa VÁZQUEZ Narrative: This is a 63-year-old male with pertinent history of alcohol use disorder, hypertension, congestive heart failure with reduced ejection fraction, persistent atrial fibrillation on Eliquis, MJ on CPAP, gastroesophageal reflux disease, tobacco use disorder, mixed hyperlipidemia, hwi-htadntr-owvvbqook diabetes mellitus presents to the emergency department for evaluation increased shortness of breath for last 2 weeks been here multiple times last discharge was on 11/30/2023 for similar presentation patient has been using CPAP and inhaler without much relief patient with more shortness a breath for last 2 weeks using his MDI without much relief was sitting outside in the driveway waiting for EMS saturating 79% at room air patient does not have any oxygen at home patient received DuoNeb treatment by EMS and non-rebreather no fever no chills patient is still smokes and drinks Related Data Previous Rx's ?Medication ?Instructions ?Recorded blood-glucose meter (FreeStyle #1 ea 09/03/20 Lite Meter kit) lancets 28 gauge (FreeStyle #100 ea 02/02/21 Lancets) FreeStyle David 2 Towner (flash #1 ea 07/03/22 glucose scanning reader) FreeStyle David 2 Sensor (flash #1 ea 07/03/22 glucose sensor) folic acid 1 mg tablet 1 mg PO DAILY #90 tabs 09/16/23 gabapentin 300 mg capsule 300 mg PO BID 30 days #60 caps 09/16/23 furosemide 20 mg tablet 30 mg (1.5 x 20 mg) PO DAILY #135 10/12/23 tabs lisinopril 2.5 mg tablet 2.5 mg PO DAILY #90 tabs 10/12/23 omeprazole 20 mg capsule,delayed 40 mg (2 x 20 mg) PO DAILY@0630 10/12/23 release #180 caps rosuvastatin 5 mg tablet 5 mg PO DAILY #90 tabs 10/12/23 metformin 850 mg tablet 850 mg PO DAILY #90 tabs 10/24/23 metoprolol tartrate 50 mg tablet 50 mg PO BID #180 tabs 11/13/23 nicotine 7 mg/24 hr daily 7 mg transdermal DAILY #14 ea 11/27/23 transdermal patch thiamine mononitrate (vit B1) 100 100 mg PO DAILY #30 tabs 11/28/23 mg tablet prednisone 10 mg tablet See Taper PO DIRECTED #30 tabs 11/30/23 valsartan 40 mg tablet 20 mg PO BID #60 tabs 11/30/23 acetaminophen 650 mg 650 mg PO Q12H PRN pain 30 days 12/06/23 tablet,extended release (Tylenol #60 tabs Arthritis Pain) amlodipine 5 mg tablet 5 mg PO DAILY #90 tabs 12/06/23 fluoxetine 40 mg capsule 40 mg PO DAILY #90 caps 12/06/23 multivitamin with folic acid 400 1 tab PO DAILY #90 tabs 12/06/23 mcg tablet (Daily-Carlito (with folic acid)) apixaban 5 mg tablet (Eliquis) 5 mg PO BID #180 tabs 12/16/23 albuterol sulfate 90 mcg/actuation 2 puff inhalation QID PRN Wheezing 01/16/24 aerosol inhaler #8.5 grams Allergies Allergy/AdvReac Type Severity Reaction Status Date / Time No Known Allergies Allergy Verified 01/18/24 05:03 [No Known Allergies*] Review of Systems Review of Systems: Yes all other systems are reviewed and are negative PMF Past Medical History Medical History CHF (congestive heart failure) Effusion, right knee Screen for STD (sexually transmitted disease) Left ankle swelling Hypomagnesemia Diarrhea Acute UTI Physical exam Nocturia Microhematuria Elevated serum creatinine Morbid obesity Increased ammonia level Weakness of both lower extremities Alcohol use disorder, severe, dependence Dermatitis, unspecified History of cardiac arrest (~05/2020) Nicotine dependence, cigarettes, uncomplicated Personal history of colonic polyps Hypoventilation associated with obesity syndrome Encephalopathy chronic MJ (obstructive sleep apnea) CKD (chronic kidney disease) stage 3, GFR 30-59 ml/min Cirrhosis Diabetes Obesity (BMI 35.0-39.9 without comorbidity) Wernicke encephalopathy Obstructive sleep apnea (adult) (pediatric) Rib fractures CHF (congestive heart failure) Left atrial enlargement Persistent atrial fibrillation Depression Gout Arthritis Anxiety HTN (hypertension) Surgical History History of tracheostomy (~2019) History of bronchoscopy (~2019) History of colonoscopy (~2021) History of esophagogastroduodenoscopy (EGD) (~2021) History of cardioversion (~2020) S/P percutaneous endoscopic gastrostomy (PEG) tube placement (~2019) Family History Family History Father Lung cancer Mother No problems noted. Maternal Aunt History of heart attack Sister No problems noted. Brother Cancer of kidney Brother No problems noted. Brother No problems noted. Brother No problems noted. Brother No problems noted. Brother No problems noted. Other Substance use disorder Social History Social History Household Members: Spouse Housing: House Do you presently have visiting nurse or other home services: No Unable to assess alcohol history related to: Unknown Alcohol intake: current Alcohol intake frequency: 0-2 drinks per day Alcohol type: beer and hard liquor Comment: 1:1 sitter Patient Tobacco Use Status: Current everyday Tobacco user Tobacco use type: Cigarette Cigarette Packs Per Day: 0.5 Cigarettes Per Day: 10.0 Years Smoked: 40 Smoked in Last 30 Days: Yes e-Cigarette/Vaping Use: Never Used Second Hand Smoke Exposure: No Use of substances other than those prescribed or required for medical reasons: No Advance Directives: Yes Advance Directives on File: Yes Advance Directives Date on File: 06/05/20 Do you have a plan to hurt others: No Plan service: Yes Current occupational status: unemployed Cognitive needs: No Hearing needs: No Vision needs: No Physical Exam Vital Signs: Vital Signs: Last Vital Signs Temp 98.3 F 01/18/24 06:37 Pulse 82 01/18/24 06:37 Resp 16 01/18/24 06:37 BP 118/72 01/18/24 06:37 Pulse Ox 94 01/18/24 06:37 O2 Del Method Room Air 01/18/24 06:37 O2 Flow Rate 4 01/18/24 06:10 BMI result Body Mass Index 44.0 Appearance: Alert. Oriented X3. Obese with moderate respiratory distress placed on CPAP Eyes: No pallor or icterus ENT: Pharynx normal. Oral Mucosa moist Neck: Normal inspection. Neck supple. CVS: Irregularly irregular heart rate and rhythm. Pulses normal. Respiratory: No respiratory distress. Equal air entry bilateral, bilateral decreased air entry few crackles at the bases Abdomen: Soft and nontender. Bowel sounds are present, no mass palpable, no CVA tenderness Skin: Skin warm and dry. Normal skin color. Normal skin turgor. Extremities: No lower extremity edema. No calf tenderness Neuro: Oriented X 3. Medications Administered Discontinued Medications Generic Name Dose Route Start Last Admin Trade Name Marleny PRN Reason Stop Dose Admin Albuterol/Ipratropium 3 ml 01/18/24 06:19 01/18/24 06:27 Albuterol/Iprat 2.5/0.5mg 3 Ml Ampul.Neb INHALE 01/18/24 06:20 3 ml ONCE STA Administration Albuterol Sulfate 2.5 mg/ 0 mg 01/18/24 05:09 01/18/24 05:29 Albuterol/Ipratropium 3 ml INHALE 01/18/24 05:10 5 dose ONCE ONE Administration Furosemide 20 mg 01/18/24 06:06 01/18/24 06:12 Furosemide 20 Mg/2 Ml Vial IVPUSH 01/18/24 06:07 20 mg ONCE ONE Administration Protocol Methylprednisolone Sodium Succinate 125 mg 01/18/24 06:18 01/18/24 06:42 Methylprednisolone Sod Succ 125 Mg/2 Ml Vial IVPUSH 01/18/24 06:19 125 mg ONCE STA Administration Medical Decision Making Medical Decision Making [facility] Narrative: Patient with MJ chronic lung disease on CPAP at night comes here for increased shortness a breath with similar history in the past with frequent admissions discharge not on home oxygen was noted to be saturating 79% at rest based on CPAP in the ER with 4 L of oxygen saturating 95% venous gases showed hypoxia lab workup showed elevated BNP chest x-ray showed slight congestion patient received DuoNeb treatment CPAP and Lasix in the ER will admit patient for acute on chronic respiratory failure Differential Diagnosis Differential Diagnoses: The differential diagnosis associated with the presentation includes Acute respiratory failure/CHF/ACS/pneumonia Admission/Observation Consideration of admission/observation: Escalation of care including admission/observation considered Consult Healthcare Provider Management of the patient was discussed with: Hospitalist Lab Data [facility] Lab Attestation statement: I reviewed the patient's lab results. 01/18/24 05:22 01/18/24 05:22 Labs: Lab Results 01/18/24 01/18/24 01/18/24 Range/Units 05:20 05:22 05:37 WBC 7.9 (4.8-10.8) X10*3/uL RBC 4.00 L (4.60-5.80) X10*6/uL Hgb 12.1 L (14.0-18.0) g/dl Hct 37.3 L (42.0-52.0) % MCV 93.3 (80.0-98.0) fL MCH 30.3 (27.0-33.0) pg MCHC 32.4 (31.0-36.0) g/dl RDW 15.3 (11.0-16.0) % Plt Count 227 (160-400) X10*3/uL MPV 9.5 (9.4-12.4) fL Immature Gran % (Auto) 0.4 (0.0-0.4) % Neut % (Auto) 67.7 (45-73) % Lymph % (Auto) 19.4 L (20-40) % [place] % (Auto) 9.5 (2-11) % Eos % (Auto) 2.0 (0-4) % Baso % (Auto) 1.0 (0-2) % Lymph # (Auto) 1.5 (1.2-4.9) X10*3/uL [place] # (Auto) 0.8 (0.1-1.2) X10*3/uL Eos # (Auto) 0.2 (0.0-0.4) X10*3/uL Baso # (Auto) 0.1 (0.0-0.2) X10*3/uL Abs Immat Gran (auto) 0.03 (0.00-0.03) X10*3/uL Absolute Neuts (auto) 5.4 (2.0-8.3) x10*3/uL Absolute Nucleated RBC 0.000 (0.0-0.012) X10*3/uL Nucleated RBC % (auto) 0.0 (0.0-0.2) /100WBC PT 23.4 H D (11.1-13.3) SEC INR 1.9 H (0.9-1.1) VBG pH 7.36 (7.32-7.43) VBG pCO2 51 mmHg VBG pO2 44 mmHg VBG HCO3 29 H (22-26) mmol/L VBG O2 Saturation 68.0 % VBG Base Excess 3.2 mmol/L Sodium 141 (135-145) mmol/L Potassium 4.0 (3.3-5.1) mmol/L Chloride 102 (96-108) mmol/L Carbon Dioxide 26 (22-29) mmol/L Anion Gap 17 (12-20) BUN 12 (9-16) mg/dL Creatinine 1.08 (0.5-1.4) mg/dL Estim Creat Clear Calc 108.7 Estimated GFR > 60 Random Glucose 117 H (60-115) mg/dL Calcium 9.0 D (8.4-10.2) mg/dL Total Bilirubin 0.5 (0.0-1.0) mg/dL AST 15 (5-37) U/L ALT 7 (0-40) U/L Alkaline Phosphatase 124 H (39-117) U/L Troponin I High Sens 3.9 (<3.5-35.0) ng/L B-Natriuretic Peptide 609 H (<100) pg/mL Total Protein 7.2 (6.5-8.0) g/dL Albumin 3.4 L (3.5-5.0) g/dL Ethyl Alcohol 105 mg/dL ABG Data Attestation ABG: I personally reviewed and interpreted this ABG as follows: Interpretation: Respiratory hypoxia Independent Interpretation I performed an independent interpretation of an: EKG and Plain X-Ray Interpretation: Atrial fibrillation ventricular rate 77 beats per minute right side axis no acute ST-T changes no acute ischemia Radiology Impression Discussion of test interpretation with radiology: I have reviewed the radiologist's reading. Radiologist Impression: XR/XR chest 1V IMPRESSION: Mild prominence of the central vasculature without overt edema. Streaky bibasilar opacities suggesting atelectasis. Cardiac silhouette remains enlarged. Critical Care Time Critical Care Time Critical Care Time: Yes Total Critical Care Time: 60 Attestation: The patient was critically ill with a high probability of imminent or life threatening deterioration. I spent greater than65???minutes of discontinuous time evaluating the patient,delivering critical care at the bedside, discussing and evaluating pertinent data with consultants. Critical care time does not include time spent performing separately billable procedures or teaching. Total time spent performing critical care was ?60??minutes. Discharge Plan Discharge Clinical Impression: CKD (chronic kidney disease) stage 3, GFR 30-59 ml/min, MJ (obstructive sleep apnea), Hypoventilation associated with obesity syndrome, Persistent atrial fibrillation Hypoxic respiratory failure Qualifiers: Chronicity: acute Qualified Code(s): J96.01 - Acute respiratory failure with hypoxia CHF (congestive heart failure) Qualifiers: Heart failure type: unspecified Heart failure chronicity: acute on chronic Qualified Code(s): I50.9 - Heart failure, unspecified Patient Disposition: Admitted As Inpatient
[2024-01-18 05:27] LABS: Venous Blood Gas Refer to POC result
[2024-01-18 05:27] LABS: MANUAL DIFF FLAG NO
[2024-01-18 05:28] LABS: VBG Base Excess 3.2 mmol/L; VBG HCO3 29 mmol/L (22-26); VBG pCO2 51 mmHg; VBG pH 7.36 (7.32-7.43); VBG pO2 44 mmHg
[2024-01-18] MEDS: Albuterol Sulfate 2.5 MG, Albuterol/Iprat 2.5/0.5MG 3 ML 3 ML INHALE (05:29)
[2024-01-18 05:30] LABS: Basophils Absolute Auto 0.1 X10*3/uL (0.0-0.2); Eosinophils Absolute Auto 0.2 X10*3/uL (0.0-0.4); Hematocrit 37.3 % (42.0-52.0); Hemoglobin 12.1 g/dl (14.0-18.0); Imm Gran Abs Auto 0.03 X10*3/uL (0.00-0.03); Imm Gran Pct Auto 0.4 % (0.0-0.4); Lymphocytes Absolute Auto 1.5 X10*3/uL (1.2-4.9); Lymphocytes Percent Auto 19.4 % (20-40); Mean Corpuscular HGB Conc 32.4 g/dl (31.0-36.0); Mean Corpuscular Hemoglobin 30.3 pg (27.0-33.0); Mean Corpuscular Volume 93.3 fL (80.0-98.0); Mean Platelet Volume 9.5 fL (9.4-12.4); Monocytes Absolute Auto 0.8 X10*3/uL (0.1-1.2); Monocytes Percent Auto 9.5 % (2-11); Neutrophils Absolute Auto 5.4 x10*3/uL (2.0-8.3); Neutrophils Percent Auto 67.7 % (45-73); Platelet Count 227 X10*3/uL (160-400); Red Cell Distribution Width 15.3 % (11.0-16.0); White Blood Count 7.9 X10*3/uL (4.8-10.8)
[2024-01-18 05:41] LABS: Ethanol 105 mg/dL
[2024-01-18 05:44] LABS: Alanine Aminotransferase 7 U/L (0-40); Albumin Level 3.4 g/dL (3.5-5.0); Alkaline Phosphatase 124 U/L (39-117); Anion Gap 17 (12-20); Aspartate Amino Transferase 15 U/L (5-37); Bilirubin Total 0.5 mg/dL (0.0-1.0); Blood Urea Nitrogen 12 mg/dL (9-16); Carbon Dioxide 26 mmol/L (22-29); Chloride 102 mmol/L (96-108); Creatinine Clr Calc Pharmacy 108.7; Estimated Glomerular Filt Rate > 60; Glucose Random 117 mg/dL (60-115); Sodium 141 mmol/L (135-145); Total Protein 7.2 g/dL (6.5-8.0)
[2024-01-18 05:50] LABS: INTERNATIONAL NORM RATIO 1.9 (0.9-1.1); Prothrombin Time 23.4 SEC (11.1-13.3)
[2024-01-18 05:51] LABS: Troponin-I High Sensitivity 3.9 ng/L (<3.5-35.0)
[2024-01-18 05:55] LABS: B Type Natriuretic Peptide 609 pg/mL (<100)
[2024-01-18] MEDS: Furosemide 20 MG/2 ML VIAL IVPUSH (06:12)
--- NOTE | 2024-01-18 06:24 | P.HPHOSP_ITS ---
History of Present Illness Date of Service: 01/18/24 Attending physician on admission: Amanuel Guevara Chief Complaint: Shortness of breaths Esteban Galindo is a 63 years old man with past medical history significant for alcohol abuse, HFrEF (48%), atrial fibrillation on Eliquis, MJ (noncompliant with CPAP), GERD, tobacco use disorder, hyperlipidemia and type 2 diabetes mellitus was brought to the emergency department due to worsening shortness of breath over the last 2 weeks. HPI was difficult to obtain directly from the patient as he is currently using a CPAP mask. According to ED triage note EMS found the patient to have O2 saturation 79% on room air. Breathing treatment with DuoNeb was provided and was placed on non-rebreather mask. In the ED, he was found to have stable vital signs. He is currently requiring 4 L supplemental oxygen via CPAP mask. Blood workup showed no leukocytosis. There are no electrolyte imbalances. Renal function is normal. LFTs are normal except for slight elevation of alk-phos. Troponin is 3.9 and BNP is 609 which similar to prior.. Blood gas showed no acute respiratory acidosis. Ethanol level is 105. CXR showed mild prominence of central vasculature without overt edema. It also showed streaky bibasal opacities suggesting atelectasis. ECG showed atrial fibrillation, heart rate 77 bpm without acute ischemic changes. ED tx: DuoNeb x1, Lasix 20 mg IV. Review of Systems 2 Review of Systems: Yes Unobtainable due to mental condition [facility] Medical History CHF (congestive heart failure) Effusion, right knee Screen for STD (sexually transmitted disease) Left ankle swelling Hypomagnesemia Diarrhea Acute UTI Physical exam Nocturia Microhematuria Elevated serum creatinine Morbid obesity Increased ammonia level Weakness of both lower extremities Alcohol use disorder, severe, dependence Dermatitis, unspecified History of cardiac arrest (~05/2020) Nicotine dependence, cigarettes, uncomplicated Personal history of colonic polyps Hypoventilation associated with obesity syndrome Encephalopathy chronic MJ (obstructive sleep apnea) CKD (chronic kidney disease) stage 3, GFR 30-59 ml/min Cirrhosis Diabetes Obesity (BMI 35.0-39.9 without comorbidity) Wernicke encephalopathy Obstructive sleep apnea (adult) (pediatric) Rib fractures CHF (congestive heart failure) Left atrial enlargement Persistent atrial fibrillation Depression Gout Arthritis Anxiety HTN (hypertension) Family History Father Lung cancer Mother No problems noted. Maternal Aunt History of heart attack Sister No problems noted. Brother Cancer of kidney Brother No problems noted. Brother No problems noted. Brother No problems noted. Brother No problems noted. Brother No problems noted. Other Substance use disorder Surgical History History of tracheostomy (~2019) History of bronchoscopy (~2019) History of colonoscopy (~2021) History of esophagogastroduodenoscopy (EGD) (~2021) History of cardioversion (~2020) S/P percutaneous endoscopic gastrostomy (PEG) tube placement (~2019) Social History Household Members: Spouse Housing: House Do you presently have visiting nurse or other home services: No Unable to assess alcohol history related to: Unknown Alcohol intake: current Alcohol intake frequency: 0-2 drinks per day Alcohol type: beer and hard liquor Comment: 1:1 sitter Patient Tobacco Use Status: Current everyday Tobacco user Tobacco use type: Cigarette Cigarette Packs Per Day: 0.5 Cigarettes Per Day: 10.0 Years Smoked: 40 Smoked in Last 30 Days: Yes e-Cigarette/Vaping Use: Never Used Second Hand Smoke Exposure: No Use of substances other than those prescribed or required for medical reasons: No Advance Directives: Yes Advance Directives on File: Yes Advance Directives Date on File: 06/05/20 Do you have a plan to hurt others: No Plan service: Yes Current occupational status: unemployed Cognitive needs: No Hearing needs: No Vision needs: No Meds Allergies Allergy/AdvReac Type Severity Reaction Status Date / Time No Known Allergies Allergy Verified 01/18/24 05:03 [No Known Allergies*] Active Medications: Current Medications Acetaminophen (Acetaminophen 325 Mg Tablet) 975 mg PO Q6H PRN PRN Reason: Pain, Mild (Pain Scale 1-3), fever or headache Albuterol/Ipratropium (Albuterol/Iprat 2.5/0.5mg 3 Ml Ampul.Neb) 3 ml INHALE RQ4H WHILE AWAKE JESSICA Folic Acid (Folic Acid 1 Mg Tablet) 1 mg PO DAILY [facility] Thiamine HCl 100 mg/ Sodium (Chloride) 101 mls @ 202 mls/hr IV DAILY [facility] Methylprednisolone Sodium Succinate (Methylprednisolone Sod Succ 40 Mg/Ml Vial) 40 mg IVPUSH Q12H [facility] Multivitamins/Vitamin C (Multivitamin Tablet) 1 tab PO DAILY [facility] Sodium Chloride (0.9 % Sodium Chloride Flush 3 Ml Syringe) 3 ml IVFLUSH QSHIFT [facility] Physical Exam 2 Vital Signs and Narrative: Vital Signs: Last Vital Signs Temp 98.8 F 01/18/24 06:10 Pulse 85 01/18/24 06:10 Resp 20 01/18/24 06:10 BP 120/76 01/18/24 06:12 Pulse Ox 95 01/18/24 06:10 O2 Del Method CPAP 01/18/24 06:10 O2 Flow Rate 4 01/18/24 06:10 BMI result Body Mass Index 44.0 Constitutional - Awake and Alert, No apparent distress. CPAP mask in place. Obese. HEENT - atraumatic head. Normal sclerae. Heart - irregular rhythm. No murmur. Lungs - Normal lung expansion, Normal respiratory effort. Tachypnea. End expiratory wheezes. Abdomen - Nontenderness. Extremities - no calf tenderness bilaterally, no swelling Musculoskeletal - Normal inspection, normal ROM Skin - Warm/Dry Neurological - Alert. No focal weakness grossly noted. Normal speech. Psychological - Appropriate affect Results Labs 01/18/24 05:22 01/18/24 05:22 Labs: Laboratory Results - last 24 hr 01/18/24 01/18/24 01/18/24 05:20 05:22 05:37 MCV 93.3 MCH 30.3 MCHC 32.4 RDW 15.3 Plt Count 227 MPV 9.5 Immature Gran % (Auto) 0.4 Neut % (Auto) 67.7 Lymph % (Auto) 19.4 L [place] % (Auto) 9.5 Eos % (Auto) 2.0 Baso % (Auto) 1.0 Lymph # (Auto) 1.5 [place] # (Auto) 0.8 Eos # (Auto) 0.2 Baso # (Auto) 0.1 Abs Immat Gran (auto) 0.03 Absolute Neuts (auto) 5.4 Absolute Nucleated RBC 0.000 Nucleated RBC % (auto) 0.0 PT 23.4 H D INR 1.9 H VBG pH 7.36 VBG pCO2 51 VBG pO2 44 VBG HCO3 29 H VBG O2 Saturation 68.0 VBG Base Excess 3.2 Anion Gap 17 Estim Creat Clear Calc 108.7 Estimated GFR > 60 Random Glucose 117 H Calcium 9.0 D Total Bilirubin 0.5 AST 15 ALT 7 Alkaline Phosphatase 124 H Troponin I High Sens 3.9 B-Natriuretic Peptide 609 H Total Protein 7.2 Albumin 3.4 L Ethyl Alcohol 105 Imaging Radiologist's Impressions: Impressions Chest X-Ray 01/18/24 05:10 IMPRESSION: Mild prominence of the central vasculature without overt edema. Streaky bibasilar opacities suggesting atelectasis. Cardiac silhouette remains enlarged. Assessment and Plan (1) Hypoxic respiratory failure: Qualifiers: Chronicity: acute Qualified Code(s): J96.01 - Acute respiratory failure with hypoxia Status: Acute (2) Persistent atrial fibrillation: Status: Acute (3) Diabetes: Qualifiers: Diabetes mellitus type: type 2 Diabetes mellitus prison insulin use: without prison use Diabetes mellitus complication status: with other specified complication Qualified Code(s): E11.69 - Type 2 diabetes mellitus with other specified complication Status: Acute Plan Esteban Galindo is a 63 y/o man admitted with: * Acute hypoxic respiratory failure, likely multifactorial. Acute on chronic systolic congestive heart failure, obstructive sleep apnea and bronchospasm secondary to acute bronchitis. Admit to hospitalist service. Telemetry. Supplemental oxygen to keep O2 sats > 90% (pt currently on CPAP 4L/min). Continue bronchodilator therapy. Solu-Medrol 125 mg IV x1 now then 40 mg b.i.d.. Continue diuretics. Strict I&O. Low-salt diet. * Alcohol use disorder, currently intoxicated. CIWA protocol every 4 hours. Thiamine 100 mg IV daily. Folic acid and multivitamins. Phenobarbital protocol as needed. * Atrial fibrillation, rate controlled. Continue Eliquis and metoprolol. * Essential hypertension. Continue home meds. * Tobacco use disorder. Tobacco cessation education. * Type 2 diabetes mellitus. BG checks before meals at bedtime. Insulin sliding scale. Hold metformin. * Obesity, class III. BMI 44 kg/m2. Weight loss. * Hyperlipidemia. Continue statin. * MJ. Noncompliant with CPAP. Continue CPAP. * GERD. Continue omeprazole. DVT prophylaxis: Eliquis Code status: Full Patient will need hospitalization for at least 2 midnights for acute hypoxic respiratory failure therapy with supplemental oxygen, IV antibiotic therapy, scheduled bronchodilator therapy and IV steroids. Quality Stroke Does the patient have a stroke diagnosis?: No VTE Prior VTE?: No VTE Risk Level:: Medical - moderate - high VTE Device Contraindication: Treatment Not Indicated VTE Drug Contraindication: N/A - Med Ordered
[2024-01-18] MEDS: Albuterol/Iprat 2.5/0.5MG 3 ML AMPUL.NEB INHALE ×4 (06:27→19:01)
[2024-01-18] MEDS: methylPREDNISolone Sod Succ 125 MG/2 ML VIAL IVPUSH (06:42)
[2024-01-18 07:17] LABS: Glucose, Whole Blood 116 mg/dL (60-115)
--- NOTE | 2024-01-18 08:18 | P.PNIM_ITS ---
Subjective Subjective Date of Service: 01/18/24 Interval History: Seen in follow up for acute hypoxemic respiratory failure, COPD exacerbation, CHF exacerbation, alcohol withdrawal Interval history: Reports shortness of breath has improved. Still experiencing chest tightness with inspiration but denies any pressure. He is beginning to experience tremors likely related to alcohol withdrawal. CIWA 8 Review of Systems Review of Systems: Yes all other systems are reviewed and are negative Physical Exam 2 Vital Signs: Vital Signs: Last Vital Signs Temp 98.3 F 01/18/24 06:37 Pulse 82 01/18/24 06:37 Resp 16 01/18/24 06:37 BP 118/72 01/18/24 06:37 Pulse Ox 94 01/18/24 06:37 O2 Del Method Room Air 01/18/24 06:37 O2 Flow Rate 4 01/18/24 06:10 BMI result Body Mass Index 44.0 Constitutional - Awake and Alert, No apparent distress Eyes - PERRLA, EOMI Cardiovascular - S1S2, RRR, No edema Respiratory - Normal lung expansion, Normal respiratory effort, No respiratory distress on 2L, diminished lung sounds bilaterally with expiratory wheezing Gastrointestinal - NT / ND; +BS; No rebound or guarding Extremities - no calf tenderness bilaterally, no swelling Skin - Warm/Dry Neurological - Alert & oriented x3, tremulous Psychological - Appropriate affect Objective Data Active Medications Acetaminophen (Acetaminophen 325 Mg Tablet) 975 mg PO Q6H PRN PRN Reason: Pain, Mild (Pain Scale 1-3), fever or headache Albuterol/Ipratropium (Albuterol/Iprat 2.5/0.5mg 3 Ml Ampul.Neb) 3 ml INHALE RQ4H WHILE AWAKE [facility] Folic Acid (Folic Acid 1 Mg Tablet) 1 mg PO DAILY [facility] Furosemide (Furosemide 40 Mg/4 Ml Vial) 40 mg IVPUSH BID@0900,1800 [facility]; Protocol Glucose (Glucose Gel 15 Gm Gel..Gram.) 15 gm PO Q15M PRN; Protocol PRN Reason: per Hypoglycemia Standing Ord. Thiamine HCl 100 mg/ Sodium (Chloride) 101 mls @ 202 mls/hr IV DAILY [facility] Dextrose (D10) 250 mls @ 750 mls/hr IV Q15M PRN; Protocol PRN Reason: per Hypoglycemia Standing Ord. Insulin Human Lispro (Insulin Lispro 100 Unit/Ml 3 Ml Vial) 0 unit SUBCUT QIDACHS [facility]; Protocol Last Admin: 01/18/24 07:16 Dose: Not Given Documented By: TIFFANIE Non-Admin Reason: No Insulin Coverage Methylprednisolone Sodium Succinate (Methylprednisolone Sod Succ 40 Mg/Ml Vial) 40 mg IVPUSH Q12H [facility] Multivitamins/Vitamin C (Multivitamin Tablet) 1 tab PO DAILY [facility] Sodium Chloride (0.9 % Sodium Chloride Flush 3 Ml Syringe) 3 ml IVFLUSH QSHIFT [facility] Labs 01/18/24 05:22 01/18/24 05:22 Labs: Laboratory Results - last 24 hr 01/18/24 01/18/24 01/18/24 05:20 05:22 05:37 MCV 93.3 MCH 30.3 MCHC 32.4 RDW 15.3 Plt Count 227 MPV 9.5 Immature Gran % (Auto) 0.4 Neut % (Auto) 67.7 Lymph % (Auto) 19.4 L [place] % (Auto) 9.5 Eos % (Auto) 2.0 Baso % (Auto) 1.0 Lymph # (Auto) 1.5 [place] # (Auto) 0.8 Eos # (Auto) 0.2 Baso # (Auto) 0.1 Abs Immat Gran (auto) 0.03 Absolute Neuts (auto) 5.4 Absolute Nucleated RBC 0.000 Nucleated RBC % (auto) 0.0 PT 23.4 H D INR 1.9 H VBG pH 7.36 VBG pCO2 51 VBG pO2 44 VBG HCO3 29 H VBG O2 Saturation 68.0 VBG Base Excess 3.2 Anion Gap 17 Estim Creat Clear Calc 108.7 Estimated GFR > 60 POC Glucose Random Glucose 117 H Calcium 9.0 D Total Bilirubin 0.5 AST 15 ALT 7 Alkaline Phosphatase 124 H Troponin I High Sens 3.9 B-Natriuretic Peptide 609 H Total Protein 7.2 Albumin 3.4 L Ethyl Alcohol 105 01/18/24 07:13 MCV MCH MCHC RDW Plt Count MPV Immature Gran % (Auto) Neut % (Auto) Lymph % (Auto) [place] % (Auto) Eos % (Auto) Baso % (Auto) Lymph # (Auto) [place] # (Auto) Eos # (Auto) Baso # (Auto) Abs Immat Gran (auto) Absolute Neuts (auto) Absolute Nucleated RBC Nucleated RBC % (auto) PT INR VBG pH VBG pCO2 VBG pO2 VBG HCO3 VBG O2 Saturation VBG Base Excess Anion Gap Estim Creat Clear Calc Estimated GFR POC Glucose 116 H Random Glucose Calcium Total Bilirubin AST ALT Alkaline Phosphatase Troponin I High Sens B-Natriuretic Peptide Total Protein Albumin Ethyl Alcohol Assessment and Plan (1) Hypoxic respiratory failure: Status: Acute (2) Acute bronchitis: Status: Acute (3) CHF exacerbation: Status: Acute Plan 63-year-old male with history of alcohol abuse, heart failure reduced ejection fraction, paroxysmal atrial fibrillation anticoagulated with Eliquis, MJ noncompliant with CPAP, GERD, hyperlipidemia, [id number] type 2 diabetes, tobacco use disorder admitted for management of acute hypoxemic respiratory failure secondary to CHF exacerbation and acute bronchitis complicated by MJ #Acute hypoxic respiratory failure, likely multifactorial #Acute on chronic systolic congestive heart failure #obstructive sleep apnea #Acute bronchospasm secondary to acute bronchitis. -last echo showed mildly decreased LV systolic function with EF 48% and AA the aortic valve sclerosis but no significant stenosis as well as mild pulmonary hypertension 06/2023 -continue supplemental O2 to maintain oximetry greater than 90% -IV Solu-Medrol 40 mg b.i.d. -IV Lasix 40 mg b.i.d. -DuoNebs q.4h while awake -cardiac diet -strict I&O -monitoring renal function/lytes -CPAP #Alcohol use disorder -now in acute withdrawal. Initiate phenobarbital per protocol -monitor on CIWA q.4h -IV thiamine, folic acid -addiction medicine consult #Atrial fibrillation, rate controlled -Continue Eliquis and metoprolol. #Essential hypertension -continue home meds #Type 2 diabetes mellitus -POC glucose, diabetic diet -Humalog on sliding scale. Hold metformin #Obesity, class III -BMI 44 kg/m2. Weight loss. #Hyperlipidemia -Continue statin. #GERD -Continue omeprazole. # tobacco use disorder -smoking cessation DVT prophylaxis: Eliquis Code status: Full Patient will need hospitalization for at least 2 midnights for acute hypoxic respiratory failure therapy with supplemental oxygen, IV antibiotic therapy, scheduled bronchodilator therapy and IV steroids. Quality Stroke Does the patient have a stroke diagnosis?: No VTE Prior VTE?: No VTE Risk Level:: Medical - moderate - high VTE Device Contraindication: Treatment Not Indicated VTE Drug Contraindication: N/A - Med Ordered
--- NOTE | 2024-01-18 08:22 | PHA.MEDREC ---
Pharmacy Consult ? Medication Reconciliation Pharmacy has completed the medication reconciliation. Utilized discharge packet from 11/29/23 and pharmacy claims. Spoke to patient to confirm meds. Pt missed Eliquis evening dose 01/17/24.
[2024-01-18] MEDS: Multivitamin TABLET 1 TAB PO (08:24)
[2024-01-18] MEDS: Folic Acid 1 MG TABLET PO (08:24)
[2024-01-18] MEDS: 0.9 % Sodium Chloride Flush 3 ML SYRINGE IVFLUSH ×2 (08:25→17:04)
[2024-01-18] MEDS: Thiamine HCL 100 MG in 0.9 % Sodium Chloride 100 ML 202 MG IV (08:35)
[2024-01-18] MEDS: Apixaban 5 MG TABLET PO ×2 (08:52→19:42)
[2024-01-18] MEDS: FLUoxetine HCl 20 MG CAPSULE 40 MG PO (08:53)
[2024-01-18] MEDS: amLODIPine Besylate 5 MG TABLET PO (08:53)
[2024-01-18] MEDS: Atorvastatin Calcium 20 MG TABLET PO (08:53)
[2024-01-18] MEDS: Gabapentin 300 MG CAPSULE PO ×2 (08:53→19:42)
[2024-01-18] MEDS: Metoprolol Tartrate 50 MG TABLET PO ×2 (08:54→19:42)
--- NOTE | 2024-01-18 09:43 | PC.NURSE ---
Pt alert and oriented, breathing even, does have some periods of increased WOB. On 2L O2 via NC, maintaining sats 90-94%. 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 Reports generalized pain and discomfort from bed. Pt took meds whole with no issues and at breakfast with no issues. CIWA is done and is 7, pt reports he is starting to feel like alcohol withdrawals are oncoming, provider alerted as nothing PRN at this time.
--- NOTE | 2024-01-18 10:21 | PC.NURSE ---
Provider reports she will put in pheno protocol for withdrawals.
--- NOTE | 2024-01-18 10:31 | MHC.CM.PN ---
Albaro IMM 01/18/24, Pt lives with spouse (who cares for disabled child). He does not have home health services. For DME he has: CPAP, cane, walker, W/C. He is a , does not use [facility]. HCP is on file and confirmed: Naresh. Pt. said he would like to look into having some home care services. DCP: home with services. CM to follow and assist with DC plan.
[2024-01-18 11:15] LABS: Glucose, Whole Blood 252 mg/dL (60-115)
[2024-01-18] MEDS: Insulin Lispro 100 UNIT/ML 3 ML VIAL SUBCUT ×3 (11:28→20:39)
[2024-01-18] MEDS: PHENobarbitaL sodium 130 MG/ML IM ONCE 383.5 MG IM (11:28)
[2024-01-18] MEDS: PHENobarbitaL sodium 130 MG/ML VIAL IM Q3Hx2 287.6 MG IM ×2 (14:00→18:16)
[2024-01-18 16:04] LABS: Glucose, Whole Blood 230 mg/dL (60-115)
[2024-01-18] MEDS: Furosemide 40 MG/4 ML VIAL IVPUSH (17:04)
[2024-01-18] MEDS: methylPREDNISolone Sod Succ 40 MG/ML VIAL IVPUSH (17:04)
[2024-01-18 20:37] LABS: Glucose, Whole Blood 224 mg/dL (60-115)
[2024-01-19] VITALS (14 sets, daily range): BP systolic 101–145; BP diastolic 55–83; PULSE 72–113; RESP 8–20; TEMP 36.2–36.9; O2SAT 87–98
[2024-01-19] MEDS: 0.9 % Sodium Chloride Flush 3 ML SYRINGE IVFLUSH ×4 (00:14→20:56)
[2024-01-19] MEDS: methylPREDNISolone Sod Succ 40 MG/ML VIAL IVPUSH ×2 (06:11→17:50)
[2024-01-19] MEDS: Omeprazole 40 MG CAPSULE.DR PO (06:11)
[2024-01-19 06:39] LABS: MANUAL DIFF FLAG NO
[2024-01-19 06:44] LABS: Basophils Percent Auto 0.1 % (0-2); Hematocrit 34.9 % (42.0-52.0); Hemoglobin 11.1 g/dl (14.0-18.0); Imm Gran Abs Auto 0.05 X10*3/uL (0.00-0.03); Imm Gran Pct Auto 0.5 % (0.0-0.4); Lymphocytes Absolute Auto 0.9 X10*3/uL (1.2-4.9); Lymphocytes Percent Auto 9.9 % (20-40); Mean Corpuscular HGB Conc 31.8 g/dl (31.0-36.0); Mean Corpuscular Hemoglobin 29.8 pg (27.0-33.0); Mean Corpuscular Volume 93.8 fL (80.0-98.0); Mean Platelet Volume 10.4 fL (9.4-12.4); Monocytes Absolute Auto 0.9 X10*3/uL (0.1-1.2); Monocytes Percent Auto 9.7 % (2-11); NRBC Pct Auto 0.2 /100WBC (0.0-0.2); Neutrophils Absolute Auto 7.3 x10*3/uL (2.0-8.3); Neutrophils Percent Auto 79.8 % (45-73); Platelet Count 210 X10*3/uL (160-400); Red Blood Count 3.72 X10*6/uL (4.60-5.80); Red Cell Distribution Width 15.1 % (11.0-16.0); White Blood Count 9.2 X10*3/uL (4.8-10.8)
[2024-01-19 06:53] LABS: Glucose, Whole Blood 208 mg/dL (60-115)
[2024-01-19 07:02] LABS: Alanine Aminotransferase 7 U/L (0-40); Albumin Level 3.4 g/dL (3.5-5.0); Alkaline Phosphatase 109 U/L (39-117); Anion Gap 15 (12-20); Aspartate Amino Transferase 15 U/L (5-37); Bilirubin Total 0.6 mg/dL (0.0-1.0); Blood Urea Nitrogen 21 mg/dL (9-16); Calcium 8.9 mg/dL (8.4-10.2); Carbon Dioxide 29 mmol/L (22-29); Chloride 99 mmol/L (96-108); Creatinine Clr Calc Pharmacy 92.5; Estimated Glomerular Filt Rate 58; Glucose Random 239 mg/dL (60-115); Potassium 4.2 mmol/L (3.3-5.1); Sodium 139 mmol/L (135-145); Total Protein 6.9 g/dL (6.5-8.0)
[2024-01-19] MEDS: Thiamine HCL 100 MG in 0.9 % Sodium Chloride 100 ML 202 MG IV (07:59)
[2024-01-19] MEDS: FLUoxetine HCl 20 MG CAPSULE 40 MG PO (07:59)
[2024-01-19] MEDS: Insulin Lispro 100 UNIT/ML 3 ML VIAL SUBCUT ×4 (07:59→20:56)
[2024-01-19] MEDS: Gabapentin 300 MG CAPSULE PO ×2 (07:59→20:56)
[2024-01-19] MEDS: Thiamine HCL 100 MG TABLET PO (08:00)
[2024-01-19] MEDS: PHENobarbitaL 30 MG TABLET 60 MG PO ×2 (08:00→20:56)
[2024-01-19] MEDS: Folic Acid 1 MG TABLET PO (08:00)
[2024-01-19] MEDS: Atorvastatin Calcium 20 MG TABLET PO (08:01)
[2024-01-19] MEDS: Multivitamin TABLET 1 TAB PO (08:01)
[2024-01-19] MEDS: amLODIPine Besylate 5 MG TABLET PO (08:01)
[2024-01-19] MEDS: Apixaban 5 MG TABLET PO ×2 (08:01→20:56)
[2024-01-19] MEDS: Furosemide 40 MG/4 ML VIAL IVPUSH ×2 (08:01→17:50)
[2024-01-19] MEDS: Metoprolol Tartrate 50 MG TABLET PO ×2 (08:01→20:56)
[2024-01-19] MEDS: Albuterol/Iprat 2.5/0.5MG 3 ML AMPUL.NEB INHALE ×4 (08:02→19:01)
[2024-01-19 10:54] LABS: Glucose, Whole Blood 371 mg/dL (60-115)
--- NOTE | 2024-01-19 11:09 | HO.ADDICTCON ---
History of Present Illness Date of Service: 01/19/2024 Chief Complaint: Hypoxic Respiratory Failure Reason for Consult: AUD Sources of Information: patient interviewed and chart reviewed HPI Narrative: AUDIT-C Brief Intervention Pt had positive screen for unhealthy alcohol use on admission, subsequently met with t/w to discuss alcohol use and recovery supports/options. This card writer hand met with patient to?discuss current alcohol use and concerns related to ongoing increased risk of alcohol related?problems.? Pt reports drinking for many years, currently drinking 20 nips and one beer daily. Discussed?how alcohol use has impacted his health, including negative impact on CHF, DM, gout and cirrhosis. Numerous admissions related to alcohol use, alcohol withdrawal Treatment History: He denies any formal treatment history, including medications for AUD Supports:?He lives with his and son, states that alcohol use has negatively impacted those relationships Discussed risk reduction strategies including drinking below the recommended limit. Patient verbalized interest in taking medications at home to assist with cravings and alcohol use. Discussed medications, and he would like to trial naltrexone Past Psychiatric History: severe alcohol use disorder with episodes of hallucinosis Review of Systems Constitutional: Reports as per HPI Diagnostics Vital Signs (24Hr): Vital Signs - 24 hr 01/18/24 11:18 01/18/24 12:00 01/18/24 13:53 Temperature 97.3 F Pulse Rate 113 H 113 H 107 H Respiratory Rate 18 20 Blood Pressure 152/70 H 124/60 Pulse Oximetry 94 Oxygen Delivery Method Nasal Cannula Oxygen Flow Rate 01/18/24 14:23 01/18/24 15:37 01/18/24 18:10 Temperature 100 F Pulse Rate 82 91 Respiratory Rate 17 15 Blood Pressure 139/82 126/75 Pulse Oximetry 92 Oxygen Delivery Method CPAP Oxygen Flow Rate 01/18/24 19:01 01/18/24 19:15 01/18/24 23:22 Temperature 97.5 F 97.0 F Pulse Rate 91 74 84 Respiratory Rate 15 23 H 18 Blood Pressure 130/62 140/70 H Pulse Oximetry 93 95 Oxygen Delivery Method Nasal Cannula Nasal Cannula Oxygen Flow Rate 01/19/24 00:39 01/19/24 03:12 01/19/24 07:15 Temperature 98.4 F 97.5 F Pulse Rate 88 80 Respiratory Rate 18 18 20 Blood Pressure 141/83 H 108/79 Pulse Oximetry 95 95 Oxygen Delivery Method Room Air Nasal Cannula Oxygen Flow Rate 3 01/19/24 08:13 01/19/24 11:02 Temperature 97.2 F Pulse Rate 72 95 Respiratory Rate 16 20 Blood Pressure 145/78 H Pulse Oximetry 93 Oxygen Delivery Method Nasal Cannula Oxygen Flow Rate 2 BMI result Body Mass Index 43.4 Labs 01/19/24 06:18 01/19/24 06:18 Labs: Laboratory Results - last 48 hr 01/18/24 01/18/24 01/18/24 05:20 05:22 05:37 WBC 7.9 RBC 4.00 L Hgb 12.1 L Hct 37.3 L MCV 93.3 MCH 30.3 MCHC 32.4 RDW 15.3 Plt Count 227 MPV 9.5 Immature Gran % (Auto) 0.4 Neut % (Auto) 67.7 Lymph % (Auto) 19.4 L [place] % (Auto) 9.5 Eos % (Auto) 2.0 Baso % (Auto) 1.0 Lymph # (Auto) 1.5 [place] # (Auto) 0.8 Eos # (Auto) 0.2 Baso # (Auto) 0.1 Abs Immat Gran (auto) 0.03 Absolute Neuts (auto) 5.4 Absolute Nucleated RBC 0.000 Nucleated RBC % (auto) 0.0 PT 23.4 H D INR 1.9 H VBG pH 7.36 VBG pCO2 51 VBG pO2 44 VBG HCO3 29 H VBG O2 Saturation 68.0 VBG Base Excess 3.2 Sodium 141 Potassium 4.0 Chloride 102 Carbon Dioxide 26 Anion Gap 17 BUN 12 Creatinine 1.08 Estim Creat Clear Calc 108.7 Estimated GFR > 60 POC Glucose Random Glucose 117 H Calcium 9.0 D Total Bilirubin 0.5 AST 15 ALT 7 Alkaline Phosphatase 124 H Troponin I High Sens 3.9 B-Natriuretic Peptide 609 H Total Protein 7.2 Albumin 3.4 L Ethyl Alcohol 105 01/18/24 01/18/24 01/18/24 07:13 10:54 16:00 WBC RBC Hgb Hct MCV MCH MCHC RDW Plt Count MPV Immature Gran % (Auto) Neut % (Auto) Lymph % (Auto) [place] % (Auto) Eos % (Auto) Baso % (Auto) Lymph # (Auto) [place] # (Auto) Eos # (Auto) Baso # (Auto) Abs Immat Gran (auto) Absolute Neuts (auto) Absolute Nucleated RBC Nucleated RBC % (auto) PT INR VBG pH VBG pCO2 VBG pO2 VBG HCO3 VBG O2 Saturation VBG Base Excess Sodium Potassium Chloride Carbon Dioxide Anion Gap BUN Creatinine Estim Creat Clear Calc Estimated GFR POC Glucose 116 H 252 H 230 H Random Glucose Calcium Total Bilirubin AST ALT Alkaline Phosphatase Troponin I High Sens B-Natriuretic Peptide Total Protein Albumin Ethyl Alcohol 01/18/24 01/19/24 01/19/24 20:33 06:18 06:47 WBC 9.2 RBC 3.72 L Hgb 11.1 L Hct 34.9 L MCV 93.8 MCH 29.8 MCHC 31.8 RDW 15.1 Plt Count 210 MPV 10.4 Immature Gran % (Auto) 0.5 H Neut % (Auto) 79.8 H Lymph % (Auto) 9.9 L [place] % (Auto) 9.7 Eos % (Auto) 0.0 Baso % (Auto) 0.1 Lymph # (Auto) 0.9 L [place] # (Auto) 0.9 Eos # (Auto) 0.0 Baso # (Auto) 0.0 Abs Immat Gran (auto) 0.05 H Absolute Neuts (auto) 7.3 Absolute Nucleated RBC 0.020 H Nucleated RBC % (auto) 0.2 PT INR VBG pH VBG pCO2 VBG pO2 VBG HCO3 VBG O2 Saturation VBG Base Excess Sodium 139 Potassium 4.2 Chloride 99 Carbon Dioxide 29 Anion Gap 15 BUN 21 H Creatinine 1.26 Estim Creat Clear Calc 92.5 Estimated GFR 58 POC Glucose 224 H 208 H Random Glucose 239 H Calcium 8.9 Total Bilirubin 0.6 AST 15 ALT 7 Alkaline Phosphatase 109 Troponin I High Sens B-Natriuretic Peptide Total Protein 6.9 Albumin 3.4 L Ethyl Alcohol 01/19/24 10:46 WBC RBC Hgb Hct MCV MCH MCHC RDW Plt Count MPV Immature Gran % (Auto) Neut % (Auto) Lymph % (Auto) [place] % (Auto) Eos % (Auto) Baso % (Auto) Lymph # (Auto) [place] # (Auto) Eos # (Auto) Baso # (Auto) Abs Immat Gran (auto) Absolute Neuts (auto) Absolute Nucleated RBC Nucleated RBC % (auto) PT INR VBG pH VBG pCO2 VBG pO2 VBG HCO3 VBG O2 Saturation VBG Base Excess Sodium Potassium Chloride Carbon Dioxide Anion Gap BUN Creatinine Estim Creat Clear Calc Estimated GFR POC Glucose 371 H* Random Glucose Calcium Total Bilirubin AST ALT Alkaline Phosphatase Troponin I High Sens B-Natriuretic Peptide Total Protein Albumin Ethyl Alcohol Imaging Radiology Impressions: ITS Impressions Chest X-Ray 01/18/24 05:10 IMPRESSION: Mild prominence of the central vasculature without overt edema. Streaky bibasilar opacities suggesting atelectasis. Cardiac silhouette remains enlarged. Mental Status Exam Mental Status Exam Patient Appearance: Appropriate Level of Consciousness: Awake, Appropriate and Alert Patient Behavior: Appropriate and Talkative Mood Description: Calm Affect Description: Calm Medications Medications Current Medications Acetaminophen (Acetaminophen 325 Mg Tablet) 975 mg PO Q6H PRN PRN Reason: Pain, Mild (Pain Scale 1-3), fever or headache Albuterol Sulfate (Albuterol Sulfate 90 Mcg 8 Gm Inhaler) 2 puff INHALE QID PRN PRN Reason: Wheezing Albuterol/Ipratropium (Albuterol/Iprat 2.5/0.5mg 3 Ml Ampul.Neb) 3 ml INHALE RQ4H WHILE AWAKE [facility] Last Admin: 01/19/24 08:02 Dose: 3 ml Amlodipine Besylate (Amlodipine Besylate 5 Mg Tablet) 5 mg PO DAILY [facility]; Protocol Last Admin: 01/19/24 08:01 Dose: 5 mg Apixaban (Apixaban 5 Mg Tablet) 5 mg PO BID [facility] Last Admin: 01/19/24 08:01 Dose: 5 mg Atorvastatin Calcium (Atorvastatin Calcium 20 Mg Tablet) 20 mg PO DAILY [facility] Last Admin: 01/19/24 08:01 Dose: 20 mg Fluoxetine HCl (Fluoxetine Hcl 20 Mg Capsule) 40 mg PO DAILY [facility] Last Admin: 01/19/24 07:59 Dose: 40 mg Folic Acid (Folic Acid 1 Mg Tablet) 1 mg PO DAILY [facility] Last Admin: 01/19/24 08:00 Dose: 1 mg Folic Acid (Folic Acid 1 Mg Tablet) 1 mg PO DAILY [facility] Last Admin: 01/19/24 08:00 Dose: Not Given Furosemide (Furosemide 40 Mg/4 Ml Vial) 40 mg IVPUSH BID@0900,1800 [facility]; Protocol Last Admin: 01/19/24 08:01 Dose: 40 mg Gabapentin (Gabapentin 300 Mg Capsule) 300 mg PO BID [facility] Last Admin: 01/19/24 07:59 Dose: 300 mg Glucose (Glucose Gel 15 Gm Gel..Gram.) 15 gm PO Q15M PRN; Protocol PRN Reason: per Hypoglycemia Standing Ord. Thiamine HCl 100 mg/ Sodium (Chloride) 101 mls @ 202 mls/hr IV DAILY [facility] Last Infusion: 01/19/24 08:56 Dose: Infused Dextrose (D10) 250 mls @ 750 mls/hr IV Q15M PRN; Protocol PRN Reason: per Hypoglycemia Standing Ord. Insulin Human Lispro (Insulin Lispro 100 Unit/Ml 3 Ml Vial) 0 unit SUBCUT QIDACHS [facility]; Protocol Last Admin: 01/19/24 07:59 Dose: 4 unit Methylprednisolone Sodium Succinate (Methylprednisolone Sod Succ 40 Mg/Ml Vial) 40 mg IVPUSH Q12H [facility] Last Admin: 01/19/24 06:11 Dose: 40 mg Metoprolol Tartrate (Metoprolol Tartrate 50 Mg Tablet) 50 mg PO BID [facility]; Protocol Last Admin: 01/19/24 08:01 Dose: 50 mg Multivitamins/Vitamin C (Multivitamin Tablet) 1 tab PO DAILY [facility] Last Admin: 01/19/24 08:01 Dose: 1 tab Omeprazole (Omeprazole 40 Mg Capsule.Dr) 40 mg PO DAILY@0630 [facility] Last Admin: 01/19/24 06:11 Dose: 40 mg Pharmacy Consult (Consult Rx Etoh Phenob Im/Po) 1 each MISCELLANE ONCE PRN; Protocol PRN Reason: Consult order Phenobarbital (Phenobarbital 30 Mg Tablet) 60 mg PO BID [facility]; Protocol Stop: 01/20/24 21:01 Last Admin: 01/19/24 08:00 Dose: 60 mg Phenobarbital (Phenobarbital 30 Mg Tablet) 30 mg PO BID [facility]; Protocol Stop: 01/22/24 21:01 Phenobarbital (Phenobarbital 30 Mg Tablet) 30 mg PO DAILY [facility]; Protocol Stop: 01/24/24 09:01 Sodium Chloride (0.9 % Sodium Chloride Flush 3 Ml Syringe) 3 ml IVFLUSH QSHIFT [facility] Last Admin: 01/19/24 08:01 Dose: 3 ml Thiamine HCl (Thiamine Hcl 100 Mg Tablet) 100 mg PO DAILY [facility] Last Admin: 01/19/24 08:00 Dose: 100 mg Allergies Allergies Allergy/AdvReac Type Severity Reaction Status Date / Time No Known Allergies Allergy Verified 01/18/24 05:03 [No Known Allergies*] Assessment & Plan Assessment & Plan (1) Alcohol use disorder, severe, dependence: Status: Acute Code(s): F10.20 - Alcohol dependence, uncomplicated Assessment and Plan: naltrexone 25mg daily for three days then increase to 50mg daily Total time managing care of this patient today _20___ minutes. [facility] Past Medical History Medical History (Updated 01/19/24 @ 16:14 by Stella Mims CNP) Alcohol use disorder, severe, dependence CHF (congestive heart failure) Effusion, right knee Screen for STD (sexually transmitted disease) Left ankle swelling Hypomagnesemia Diarrhea Acute UTI Physical exam Nocturia Microhematuria Elevated serum creatinine Morbid obesity Increased ammonia level Weakness of both lower extremities Dermatitis, unspecified History of cardiac arrest (~05/2020) Nicotine dependence, cigarettes, uncomplicated Personal history of colonic polyps Hypoventilation associated with obesity syndrome Encephalopathy chronic MJ (obstructive sleep apnea) CKD (chronic kidney disease) stage 3, GFR 30-59 ml/min Cirrhosis Diabetes Obesity (BMI 35.0-39.9 without comorbidity) Wernicke encephalopathy Obstructive sleep apnea (adult) (pediatric) Rib fractures CHF (congestive heart failure) Left atrial enlargement Persistent atrial fibrillation Depression Gout Arthritis Anxiety HTN (hypertension) Family History Family History Father Lung cancer Mother No problems noted. Maternal Aunt History of heart attack Sister No problems noted. Brother Cancer of kidney Brother No problems noted. Brother No problems noted. Brother No problems noted. Brother No problems noted. Brother No problems noted. Other Substance use disorder Surgical History Surgical History History of tracheostomy (~2019) History of bronchoscopy (~2019) History of colonoscopy (~2021) History of esophagogastroduodenoscopy (EGD) (~2021) History of cardioversion (~2020) S/P percutaneous endoscopic gastrostomy (PEG) tube placement (~2019) Social History Social History Household Members: Family Housing: House Do you presently have visiting nurse or other home services: No Unable to assess alcohol history related to: Unknown Alcohol intake: current Alcohol intake frequency: 0-2 drinks per day Alcohol type: beer and hard liquor Comment: Pt refusing all alarms Patient Tobacco Use Status: Current everyday Tobacco user Tobacco use type: Cigarette Cigarette Packs Per Day: 0.5 Cigarettes Per Day: 10.0 Years Smoked: 40 e-Cigarette/Vaping Use: Never Used Second Hand Smoke Exposure: No Advance Directives Date on File: 06/05/20 service: Yes Current occupational status: unemployed Cognitive needs: No Hearing needs: No Vision needs: No
[2024-01-19] MEDS: Nicotine 14 MG PATCH.TD24 TRANSDERMA (11:32)
--- NOTE | 2024-01-19 14:29 | P.PNIM_ITS ---
Subjective Subjective Date of Service: 01/19/24 Interval History: Seen and examined this morning Follow-up for respiratory failure Reports some improvement in his breathing Review of Systems Review of Systems: Yes all other systems are reviewed and are negative Constitutional Constitutional: Denies chills and Denies fever(s) Cardiovascular Cardiovascular: Denies chest pain, Denies palpitations and Denies dyspnea Respiratory Respiratory: Denies dyspnea Endocrine Endocrine: Denies palpitations Physical Exam 2 Vital Signs: Vital Signs: Last Vital Signs Temp 97.2 F 01/19/24 11:02 Pulse 102 H 01/19/24 11:22 Resp 18 01/19/24 11:22 BP 145/78 H 01/19/24 11:02 Pulse Ox 93 01/19/24 11:02 O2 Del Method Nasal Cannula 01/19/24 11:02 O2 Flow Rate 2 01/19/24 11:02 BMI result Body Mass Index 43.4 Const: General: no acute distress, alert and awake Nutritional Appearance: obese Orientation/consciousness: patient oriented x3 Resp: Other: No wheeze Effort & Inspection: normal respiratory effort, able to speak in complete sentences, no respiratory distress and no use of accessory muscles Cardio: Rate: regular rate GI: Inspection: No distended and Yes obesity Palpation (GI): Soft to palpation and nontender Neuro: Other: Grossly nonfocal General: patient oriented x3 and moves all extremities Extrem: Other: 1+ edema b/l Objective Data Active Medications Acetaminophen (Acetaminophen 325 Mg Tablet) 975 mg PO Q6H PRN PRN Reason: Pain, Mild (Pain Scale 1-3), fever or headache Albuterol Sulfate (Albuterol Sulfate 90 Mcg 8 Gm Inhaler) 2 puff INHALE QID PRN PRN Reason: Wheezing Albuterol/Ipratropium (Albuterol/Iprat 2.5/0.5mg 3 Ml Ampul.Neb) 3 ml INHALE RQ4H WHILE AWAKE [facility] Last Admin: 01/19/24 11:21 Dose: 3 ml Documented By: ARIEL Amlodipine Besylate (Amlodipine Besylate 5 Mg Tablet) 5 mg PO DAILY [facility]; Protocol Last Admin: 01/19/24 08:01 Dose: 5 mg Documented By: TIMI Apixaban (Apixaban 5 Mg Tablet) 5 mg PO BID [facility] Last Admin: 01/19/24 08:01 Dose: 5 mg Documented By: TIMI Atorvastatin Calcium (Atorvastatin Calcium 20 Mg Tablet) 20 mg PO DAILY [facility] Last Admin: 01/19/24 08:01 Dose: 20 mg Documented By: TIMI Fluoxetine HCl (Fluoxetine Hcl 20 Mg Capsule) 40 mg PO DAILY [facility] Last Admin: 01/19/24 07:59 Dose: 40 mg Documented By: TIMI Folic Acid (Folic Acid 1 Mg Tablet) 1 mg PO DAILY [facility] Last Admin: 01/19/24 08:00 Dose: 1 mg Documented By: TIMI Folic Acid (Folic Acid 1 Mg Tablet) 1 mg PO DAILY [facility] Last Admin: 01/19/24 08:00 Dose: Not Given Documented By: TIMI Non-Admin Reason: Duplicate Order Furosemide (Furosemide 40 Mg/4 Ml Vial) 40 mg IVPUSH BID@0900,1800 [facility]; Protocol Last Admin: 01/19/24 08:01 Dose: 40 mg Documented By: TIMI Gabapentin (Gabapentin 300 Mg Capsule) 300 mg PO BID [facility] Last Admin: 01/19/24 07:59 Dose: 300 mg Documented By: TIMI Glucose (Glucose Gel 15 Gm Gel..Gram.) 15 gm PO Q15M PRN; Protocol PRN Reason: per Hypoglycemia Standing Ord. Thiamine HCl 100 mg/ Sodium (Chloride) 101 mls @ 202 mls/hr IV DAILY [facility] Last Infusion: 01/19/24 08:56 Dose: Infused Documented By: TIMI Dextrose (D10) 250 mls @ 750 mls/hr IV Q15M PRN; Protocol PRN Reason: per Hypoglycemia Standing Ord. Insulin Human Lispro (Insulin Lispro 100 Unit/Ml 3 Ml Vial) 0 unit SUBCUT QIDACHS [facility]; Protocol Last Admin: 01/19/24 11:13 Dose: 10 unit Documented By: TIMI Methylprednisolone Sodium Succinate (Methylprednisolone Sod Succ 40 Mg/Ml Vial) 40 mg IVPUSH Q12H [facility] Last Admin: 01/19/24 06:11 Dose: 40 mg Documented By: AVILA Metoprolol Tartrate (Metoprolol Tartrate 50 Mg Tablet) 50 mg PO BID [facility]; Protocol Last Admin: 01/19/24 08:01 Dose: 50 mg Documented By: TIMI Multivitamins/Vitamin C (Multivitamin Tablet) 1 tab PO DAILY [facility] Last Admin: 01/19/24 08:01 Dose: 1 tab Documented By: TIMI Naltrexone HCl (Naltrexone Hcl 50 Mg Tablet) 25 mg PO DAILY [facility] Nicotine (Nicotine 14 Mg Patch.Td24) 14 mg TRANSDERMA DAILY [facility] Last Admin: 01/19/24 11:32 Dose: 14 mg Documented By: TIMI Omeprazole (Omeprazole 40 Mg Capsule.Dr) 40 mg PO DAILY@0630 [facility] Last Admin: 01/19/24 06:11 Dose: 40 mg Documented By: AVILA Pharmacy Consult (Consult Rx Etoh Phenob Im/Po) 1 each MISCELLANE ONCE PRN; Protocol PRN Reason: Consult order Phenobarbital (Phenobarbital 30 Mg Tablet) 60 mg PO BID [facility]; Protocol Stop: 01/20/24 21:01 Last Admin: 01/19/24 08:00 Dose: 60 mg Documented By: TIMI Phenobarbital (Phenobarbital 30 Mg Tablet) 30 mg PO BID [facility]; Protocol Stop: 01/22/24 21:01 Phenobarbital (Phenobarbital 30 Mg Tablet) 30 mg PO DAILY [facility]; Protocol Stop: 01/24/24 09:01 Sodium Chloride (0.9 % Sodium Chloride Flush 3 Ml Syringe) 3 ml IVFLUSH [facility] Last Admin: 01/19/24 08:01 Dose: 3 ml Documented By: TIMI Thiamine HCl (Thiamine Hcl 100 Mg Tablet) 100 mg PO DAILY [facility] Last Admin: 01/19/24 08:00 Dose: 100 mg Documented By: TIMI Labs 01/19/24 06:18 01/19/24 06:18 Labs: Laboratory Results - last 24 hr 01/18/24 01/18/24 01/19/24 16:00 20:33 06:18 MCV 93.8 MCH 29.8 MCHC 31.8 RDW 15.1 Plt Count 210 MPV 10.4 Immature Gran % (Auto) 0.5 H Neut % (Auto) 79.8 H Lymph % (Auto) 9.9 L [place] % (Auto) 9.7 Eos % (Auto) 0.0 Baso % (Auto) 0.1 Lymph # (Auto) 0.9 L [place] # (Auto) 0.9 Eos # (Auto) 0.0 Baso # (Auto) 0.0 Abs Immat Gran (auto) 0.05 H Absolute Neuts (auto) 7.3 Absolute Nucleated RBC 0.020 H Nucleated RBC % (auto) 0.2 Anion Gap 15 Estim Creat Clear Calc 92.5 Estimated GFR 58 POC Glucose 230 H 224 H Random Glucose 239 H Calcium 8.9 Total Bilirubin 0.6 AST 15 ALT 7 Alkaline Phosphatase 109 Total Protein 6.9 Albumin 3.4 L 01/19/24 01/19/24 06:47 10:46 MCV MCH MCHC RDW Plt Count MPV Immature Gran % (Auto) Neut % (Auto) Lymph % (Auto) [place] % (Auto) Eos % (Auto) Baso % (Auto) Lymph # (Auto) [place] # (Auto) Eos # (Auto) Baso # (Auto) Abs Immat Gran (auto) Absolute Neuts (auto) Absolute Nucleated RBC Nucleated RBC % (auto) Anion Gap Estim Creat Clear Calc Estimated GFR POC Glucose 208 H 371 H* Random Glucose Calcium Total Bilirubin AST ALT Alkaline Phosphatase Total Protein Albumin Assessment and Plan (1) CHF exacerbation: Status: Acute (2) Hypoxic respiratory failure: Status: Acute Plan 63-year-old male with history of alcohol abuse, heart failure reduced ejection fraction, paroxysmal atrial fibrillation anticoagulated with Eliquis, MJ noncompliant with CPAP, GERD, hyperlipidemia, [id number] type 2 diabetes, tobacco use disorder admitted for management of acute hypoxemic respiratory failure secondary to CHF exacerbation and acute bronchitis complicated by MJ #Acute hypoxic respiratory failure, likely multifactorial due to Acute on chronic systolic congestive heart failure and acute bronchitis. last echo showed mildly decreased LV systolic function with EF 48% as well as mild pulmonary hypertension 06/2023 -continue IV Solu-Medrol 40 mg b.i.d. -continue IV Lasix 40 mg b.i.d. -DuoNebs q.4h while awake Wean supplemental oxygen as tolerated #Alcohol use disorder Continue phenobarbital protocol -monitor on CIWA q.4h -IV thiamine, folic acid; change to p.o. thiamine in a.m. -addiction medicine consult #Atrial fibrillation, rate controlled -Continue Eliquis and metoprolol. #Essential hypertension -continue home meds #Type 2 diabetes mellitus -POC glucose, diabetic diet -Humalog on sliding scale. Hold metformin #Obesity, class III -BMI 44 kg/m2. Weight loss encouraged Contributing to respiratory failure #Hyperlipidemia -Continue statin. #GERD -Continue omeprazole. # tobacco use disorder -smoking cessation -NRT MJ Continue CPAP DVT prophylaxis: Eliquis Code status: Full Requires ongoing inpatient stay for acute hypoxic respiratory failure therapy with supplemental oxygen, IV antibiotic therapy, scheduled bronchodilator therapy and IV steroids. Quality Stroke Does the patient have a stroke diagnosis?: No VTE Prior VTE?: No VTE Risk Level:: Medical - moderate - high VTE Device Contraindication: Treatment Not Indicated VTE Drug Contraindication: N/A - Med Ordered
[2024-01-19 15:57] LABS: Glucose, Whole Blood 180 mg/dL (60-115)
[2024-01-19 20:40] LABS: Glucose, Whole Blood 324 mg/dL (60-115)
[2024-01-20] VITALS (15 sets, daily range): BP systolic 123–161; BP diastolic 59–88; PULSE 75–115; RESP 17–19; TEMP 35.9–36.4; O2SAT 87–98
[2024-01-20] MEDS: methylPREDNISolone Sod Succ 40 MG/ML VIAL IVPUSH ×2 (05:14→17:16)
[2024-01-20] MEDS: Omeprazole 40 MG CAPSULE.DR PO (05:14)
[2024-01-20 07:03] LABS: Anion Gap 15 (12-20); Blood Urea Nitrogen 27 mg/dL (9-16); Calcium 9.4 mg/dL (8.4-10.2); Carbon Dioxide 35 mmol/L (22-29); Chloride 93 mmol/L (96-108); Creatinine Clr Calc Pharmacy 93.3; Estimated Glomerular Filt Rate 59; Glucose Random 175 mg/dL (60-115); Potassium 4.1 mmol/L (3.3-5.1); Sodium 139 mmol/L (135-145)
[2024-01-20 07:08] LABS: B Type Natriuretic Peptide 537 pg/mL (<100)
[2024-01-20] MEDS: Albuterol/Iprat 2.5/0.5MG 3 ML AMPUL.NEB INHALE ×4 (07:32→20:53)
[2024-01-20 07:40] LABS: Glucose, Whole Blood 258 mg/dL (60-115)
[2024-01-20] MEDS: Insulin Lispro 100 UNIT/ML 3 ML VIAL SUBCUT ×4 (08:04→21:17)
[2024-01-20] MEDS: 0.9 % Sodium Chloride Flush 3 ML SYRINGE IVFLUSH ×3 (08:04→21:24)
[2024-01-20] MEDS: Folic Acid 1 MG TABLET PO (08:05)
[2024-01-20] MEDS: PHENobarbitaL 30 MG TABLET 60 MG PO ×2 (08:05→21:18)
[2024-01-20] MEDS: Apixaban 5 MG TABLET PO ×2 (08:05→21:18)
[2024-01-20] MEDS: amLODIPine Besylate 5 MG TABLET PO (08:05)
[2024-01-20] MEDS: Thiamine HCL 100 MG TABLET PO (08:05)
[2024-01-20] MEDS: FLUoxetine HCl 20 MG CAPSULE 40 MG PO (08:05)
[2024-01-20] MEDS: Metoprolol Tartrate 50 MG TABLET PO ×2 (08:05→21:18)
[2024-01-20] MEDS: Multivitamin TABLET 1 TAB PO (08:05)
[2024-01-20] MEDS: Gabapentin 300 MG CAPSULE PO ×2 (08:06→21:18)
[2024-01-20] MEDS: Naltrexone HCl 50 MG TABLET 25 MG PO (08:06)
[2024-01-20] MEDS: Atorvastatin Calcium 20 MG TABLET PO (08:06)
[2024-01-20] MEDS: Nicotine 14 MG PATCH.TD24 TRANSDERMA (08:08)
--- NOTE | 2024-01-20 10:44 | MHC.CM.PN ---
Per ROUNDS discussion, Patient is not yet medically cleared for dc (IV Lasix, IV Solu Medrol); home is the goal and CM will continue to follow.
[2024-01-20 11:41] LABS: Glucose, Whole Blood 275 mg/dL (60-115)
--- NOTE | 2024-01-20 12:34 | P.PNIM_ITS ---
Subjective Subjective Date of Service: 01/20/24 Interval History: Seen and examined this morning Follow-up for respiratory failure, CHF coughing a lot, no sob Review of Systems Review of Systems: Yes all other systems are reviewed and are negative Constitutional Constitutional: Denies chills and Denies fever(s) Cardiovascular Cardiovascular: Denies dyspnea Respiratory Respiratory: Reports cough and Denies dyspnea Gastrointestinal Gastrointestinal: Denies abdominal pain Physical Exam 2 Vital Signs: Vital Signs: Last Vital Signs Temp 97.6 F 01/20/24 11:04 Pulse 90 01/20/24 11:13 Resp 18 01/20/24 11:13 BP 146/88 H 01/20/24 11:04 Pulse Ox 97 01/20/24 11:04 O2 Del Method Nasal Cannula 01/20/24 11:04 O2 Flow Rate 2 01/20/24 11:04 BMI result Body Mass Index 43.4 Const: General: comfortable, no acute distress, alert and awake Nutritional Appearance: obese Orientation/consciousness: patient oriented x3 Resp: Other: No wheeze Effort & Inspection: normal respiratory effort, able to speak in complete sentences, no respiratory distress and no use of accessory muscles Cardio: Rate: regular rate GI: Inspection: No distended and Yes obesity Palpation (GI): Soft to palpation and nontender Neuro: Other: Grossly nonfocal General: patient oriented x3 and moves all extremities Extrem: Other: 1+ edema b/l Objective Data Active Medications Acetaminophen (Acetaminophen 325 Mg Tablet) 975 mg PO Q6H PRN PRN Reason: Pain, Mild (Pain Scale 1-3), fever or headache Albuterol Sulfate (Albuterol Sulfate 90 Mcg 8 Gm Inhaler) 2 puff INHALE QID PRN PRN Reason: Wheezing Albuterol/Ipratropium (Albuterol/Iprat 2.5/0.5mg 3 Ml Ampul.Neb) 3 ml INHALE RQ4H WHILE AWAKE [facility] Last Admin: 01/20/24 11:12 Dose: 3 ml Documented By: HERB Amlodipine Besylate (Amlodipine Besylate 5 Mg Tablet) 5 mg PO DAILY [facility]; Protocol Last Admin: 01/20/24 08:05 Dose: 5 mg Documented By: TIMI Apixaban (Apixaban 5 Mg Tablet) 5 mg PO BID [facility] Last Admin: 01/20/24 08:05 Dose: 5 mg Documented By: TIMI Atorvastatin Calcium (Atorvastatin Calcium 20 Mg Tablet) 20 mg PO DAILY [facility] Last Admin: 01/20/24 08:06 Dose: 20 mg Documented By: TIMI Fluoxetine HCl (Fluoxetine Hcl 20 Mg Capsule) 40 mg PO DAILY [facility] Last Admin: 01/20/24 08:05 Dose: 40 mg Documented By: TIMI Folic Acid (Folic Acid 1 Mg Tablet) 1 mg PO DAILY [facility] Last Admin: 01/20/24 08:05 Dose: 1 mg Documented By: TIMI Folic Acid (Folic Acid 1 Mg Tablet) 1 mg PO DAILY [facility] Last Admin: 01/20/24 08:06 Dose: Not Given Documented By: TIMI Non-Admin Reason: Duplicate Order Gabapentin (Gabapentin 300 Mg Capsule) 300 mg PO BID [facility] Last Admin: 01/20/24 08:06 Dose: 300 mg Documented By: TIMI Glucose (Glucose Gel 15 Gm Gel..Gram.) 15 gm PO Q15M PRN; Protocol PRN Reason: per Hypoglycemia Standing Ord. Guaifenesin/Dextromethorphan (Guaifenesin Dm 100/10/5 Ml 5 Ml Syrup) 5 ml PO Q6H PRN PRN Reason: Cough Dextrose (D10) 250 mls @ 750 mls/hr IV Q15M PRN; Protocol PRN Reason: per Hypoglycemia Standing Ord. Insulin Human Lispro (Insulin Lispro 100 Unit/Ml 3 Ml Vial) 0 unit SUBCUT QIDACHS [facility]; Protocol Last Admin: 01/20/24 12:26 Dose: 6 unit Documented By: TIMI Methylprednisolone Sodium Succinate (Methylprednisolone Sod Succ 40 Mg/Ml Vial) 40 mg IVPUSH Q12H [facility] Last Admin: 01/20/24 05:14 Dose: 40 mg Documented By: DORINDA Metoprolol Tartrate (Metoprolol Tartrate 50 Mg Tablet) 50 mg PO BID [facility]; Protocol Last Admin: 01/20/24 08:05 Dose: 50 mg Documented By: TIMI Multivitamins/Vitamin C (Multivitamin Tablet) 1 tab PO DAILY [facility] Last Admin: 01/20/24 08:05 Dose: 1 tab Documented By: TIMI Naltrexone HCl (Naltrexone Hcl 50 Mg Tablet) 25 mg PO DAILY [facility] Last Admin: 01/20/24 08:06 Dose: 25 mg Documented By: TIMI Nicotine (Nicotine 14 Mg Patch.Td24) 14 mg TRANSDERMA DAILY [facility] Last Admin: 01/20/24 08:08 Dose: 14 mg Documented By: TIMI Omeprazole (Omeprazole 40 Mg Capsule.Dr) 40 mg PO DAILY@0630 [facility] Last Admin: 01/20/24 05:14 Dose: 40 mg Documented By: DORINDA Pharmacy Consult (Consult Rx Etoh Phenob Im/Po) 1 each MISCELLANE ONCE PRN; Protocol PRN Reason: Consult order Phenobarbital (Phenobarbital 30 Mg Tablet) 60 mg PO BID [facility]; Protocol Stop: 01/20/24 21:01 Last Admin: 01/20/24 08:05 Dose: 60 mg Documented By: TIMI Phenobarbital (Phenobarbital 30 Mg Tablet) 30 mg PO BID [facility]; Protocol Stop: 01/22/24 21:01 Phenobarbital (Phenobarbital 30 Mg Tablet) 30 mg PO DAILY [facility]; Protocol Stop: 01/24/24 09:01 Sodium Chloride (0.9 % Sodium Chloride Flush 3 Ml Syringe) [facility] Admin: 01/20/24 08:04 Dose: 3 ml Documented By: TIMI Thiamine HCl (Thiamine Hcl 100 Mg Tablet) 100 mg PO DAILY [facility] Last Admin: 01/20/24 08:05 Dose: 100 mg Documented By: TIMI Labs 01/19/24 06:18 01/20/24 06:01 Labs: Laboratory Results - last 24 hr 01/19/24 01/19/24 01/20/24 15:46 20:26 06:01 Hold Purple Top SEE NOTE Anion Gap 15 Estim Creat Clear Calc 93.3 Estimated GFR 59 POC Glucose 180 H 324 H Random Glucose 175 H Calcium 9.4 B-Natriuretic Peptide 537 H 01/20/24 01/20/24 07:34 11:31 Hold Purple Top Anion Gap Estim Creat Clear Calc Estimated GFR POC Glucose 258 H 275 H Random Glucose Calcium B-Natriuretic Peptide Assessment and Plan (1) Alcohol use disorder, severe, dependence: Status: Acute (2) Hypoxic respiratory failure: Status: Acute Plan 63-year-old male with history of alcohol abuse, heart failure reduced ejection fraction, paroxysmal atrial fibrillation anticoagulated with Eliquis, MJ noncompliant with CPAP, GERD, hyperlipidemia, [id number] type 2 diabetes, tobacco use disorder admitted for management of acute hypoxemic respiratory failure secondary to CHF exacerbation and acute bronchitis complicated by MJ #Acute hypoxic respiratory failure, likely multifactorial due to Acute on chronic systolic congestive heart failure and acute bronchitis. last echo showed mildly decreased LV systolic function with EF 48% as well as mild pulmonary hypertension 06/2023 continue IV Solu-Medrol 40 mg b.i.d. s/p IV lasix, bicarb trending up, will stop lasix. overall net negative. resume home dose lasix DuoNebs q.4h while awake Wean supplemental oxygen as tolerated #Alcohol use disorder Continue phenobarbital protocol -monitor on CIWA q.4h -thiamine, folic acid -addiction medicine following - started on naltrexone #Atrial fibrillation, rate controlled -Continue Eliquis and metoprolol. #Essential hypertension -continue home meds #Type 2 diabetes mellitus -POC glucose, diabetic diet -Humalog on sliding scale. Hold metformin #Obesity, class III -BMI 44 kg/m2. Weight loss encouraged Contributing to respiratory failure #Hyperlipidemia -Continue statin. #GERD -Continue omeprazole. # tobacco use disorder -smoking cessation -NRT MJ Continue CPAP DVT prophylaxis: Eliquis Code status: Full Requires ongoing inpatient stay for acute hypoxic respiratory failure therapy with supplemental oxygen, IV antibiotic therapy, scheduled bronchodilator therapy and IV steroids. Quality Stroke Does the patient have a stroke diagnosis?: No VTE Prior VTE?: No VTE Risk Level:: Medical - moderate - high VTE Device Contraindication: Treatment Not Indicated VTE Drug Contraindication: N/A - Med Ordered
[2024-01-20 16:16] LABS: Glucose, Whole Blood 208 mg/dL (60-115)
[2024-01-20 20:09] LABS: Glucose, Whole Blood 259 mg/dL (60-115)
[2024-01-21] VITALS (13 sets, daily range): BP systolic 138–161; BP diastolic 68–105; PULSE 74–102; RESP 16–22; TEMP 36–36.8; O2SAT 92–100
--- NOTE | 2024-01-21 00:28 | PM.EVENT ---
Event Note Date of Service: 01/21/24 Event Note: 12:06 AM - Contacted to notify patient fell in the bathroom and hit his knees and head. I was also informed that he has been refusing bed alarms. Apparently, he got himself up and went back to bed and told the DATA WAREHOUSE ADMINISTRATOR. I evaluated patient. He said that he fell backward because he got caught up in the sats monitor while pulling up his pants. He denied trauma which is inconsistent with what DATA WAREHOUSE ADMINISTRATOR is reporting. I did not see any wounds or bumps in his scalp. Both knees examined: complete ROM, no deformities, no effusions or wounds. Wearing his CPAP machine. He seems upset by my evaluation and advised. He accused me I was calling him a liar which is not true (RN was in the room). I told him that for his safety he needs to get out of bed with assistance, wear the red sucks and allow bed alarms. Patient is high risk for falls. I removed myself from the room as he was talking to me in a disrespectful way. We will obtain x-rays of both knees. Time Spent With Patient Time: Total time managing care of this patient today ____ minutes.
--- NOTE | 2024-01-21 02:33 | PC.NURSE ---
Pt reported to aide at midnight that he fell in the bathroom. Aide then relayed to primary RN and trade marker that the patient self reported a fall. Dr Hazel and mine supervisor notified. This RN went into assess pt. Pt lying in bed with CPAP on. Vitals had been completed and charted by another RN post fall. Pt is A&O x4, denies any pain or injuries. When pt asked about fall he states that he was trying to get up from the toilet and while trying to pull his pants up the wire from the continuos O2 monitor got caught on his foot and he lost his balance and landed on his knees. Pt able to get up by himself and walk back to bed. Pt does not appear to have any obvious injuries or bruising to knees or any other area of his body. Pt denies any head strike. This RN explained to patient that the bed alarm must be engaged for safety. Dr Hazel at bedside to assess, knee xrays ordered. Pt denies any head strike to doctor in this RN presence. At 0230 Pt out of bed with sitter to use bathroom. Pt asking to speak with doctor as he now tells this RN he did in fact strike his head when he fell, but he was embarrassed about the fall. This RN notified Dr Hazel and trade marker of the patients statement.
--- NOTE | 2024-01-21 03:03 | PM.EVENT ---
Event Note Date of Service: 03/10/24 Event Note: Note cancelled. Time Spent With Patient Time: Total time managing care of this patient today ____ minutes.
[2024-01-21] MEDS: Omeprazole 40 MG CAPSULE.DR PO (06:10)
[2024-01-21] MEDS: methylPREDNISolone Sod Succ 40 MG/ML VIAL IVPUSH ×2 (06:10→16:52)
[2024-01-21 07:34] LABS: Glucose, Whole Blood 239 mg/dL (60-115)
[2024-01-21] MEDS: Albuterol/Iprat 2.5/0.5MG 3 ML AMPUL.NEB INHALE ×3 (07:35→19:26)
[2024-01-21] MEDS: Naltrexone HCl 50 MG TABLET 25 MG PO (08:00)
[2024-01-21] MEDS: Multivitamin TABLET 1 TAB PO (08:00)
[2024-01-21] MEDS: amLODIPine Besylate 5 MG TABLET PO (08:00)
[2024-01-21] MEDS: Apixaban 5 MG TABLET PO ×2 (08:00→20:59)
[2024-01-21] MEDS: PHENobarbitaL 30 MG TABLET PO ×2 (08:00→20:59)
[2024-01-21] MEDS: Metoprolol Tartrate 50 MG TABLET PO ×2 (08:00→20:59)
[2024-01-21] MEDS: Atorvastatin Calcium 20 MG TABLET PO (08:00)
[2024-01-21] MEDS: Folic Acid 1 MG TABLET PO (08:00)
[2024-01-21] MEDS: Thiamine HCL 100 MG TABLET PO (08:01)
[2024-01-21] MEDS: Furosemide 20 MG TABLET 30 MG PO (08:01)
[2024-01-21] MEDS: Gabapentin 300 MG CAPSULE PO ×2 (08:01→20:59)
[2024-01-21] MEDS: FLUoxetine HCl 20 MG CAPSULE 40 MG PO (08:01)
[2024-01-21] MEDS: Insulin Lispro 100 UNIT/ML 3 ML VIAL SUBCUT ×4 (08:03→21:03)
[2024-01-21] MEDS: Nicotine 14 MG PATCH.TD24 TRANSDERMA (08:03)
[2024-01-21] MEDS: 0.9 % Sodium Chloride Flush 3 ML SYRINGE IVFLUSH ×2 (08:04→16:52)
[2024-01-21] MEDS: Furosemide 40 MG/4 ML VIAL IVPUSH (09:13)
[2024-01-21 11:19] LABS: Glucose, Whole Blood 248 mg/dL (60-115)
--- NOTE | 2024-01-21 14:24 | P.PNIM_ITS ---
Subjective Subjective Date of Service: 01/21/24 Interval History: seen and examined this morning follow up for respiratory failure had a mechanical fall overnight, foot got stuck on o2 sensor and caused him to trip. no dizziness. all imaging overnight negative still a little sob Review of Systems Review of Systems: Yes all other systems are reviewed and are negative Constitutional Constitutional: Denies chills and Denies fever(s) Cardiovascular Cardiovascular: Denies chest pain, Denies palpitations and Reports dyspnea Respiratory Respiratory: Denies cough and Reports dyspnea Endocrine Endocrine: Denies palpitations Physical Exam 2 Vital Signs: Vital Signs: Last Vital Signs Temp 96.8 F 01/21/24 10:53 Pulse 81 01/21/24 11:11 Resp 18 01/21/24 11:11 BP 147/68 H 01/21/24 10:53 Pulse Ox 92 01/21/24 10:53 O2 Del Method Room Air 01/21/24 10:53 O2 Flow Rate 95 01/21/24 06:47 BMI result Body Mass Index 43.4 Const: General: comfortable, no acute distress, alert and awake Nutritional Appearance: obese Orientation/consciousness: patient oriented x3 Resp: Other: No wheeze Effort & Inspection: normal respiratory effort, able to speak in complete sentences, no respiratory distress and no use of accessory muscles Cardio: Rate: regular rate GI: Inspection: No distended and Yes obesity Palpation (GI): Soft to palpation and nontender Neuro: Other: Grossly nonfocal General: patient oriented x3 and moves all extremities Extrem: Other: 1+ edema b/l Objective Data Active Medications Acetaminophen (Acetaminophen 325 Mg Tablet) 975 mg PO Q6H PRN PRN Reason: Pain, Mild (Pain Scale 1-3), fever or headache Albuterol Sulfate (Albuterol Sulfate 90 Mcg 8 Gm Inhaler) 2 puff INHALE QID PRN PRN Reason: Wheezing Albuterol/Ipratropium (Albuterol/Iprat 2.5/0.5mg 3 Ml Ampul.Neb) 3 ml INHALE RQ4H WHILE AWAKE [facility] Last Admin: 01/21/24 11:11 Dose: 3 ml Documented By: ARIEL Amlodipine Besylate (Amlodipine Besylate 5 Mg Tablet) 5 mg PO DAILY [facility]; Protocol Last Admin: 01/21/24 08:00 Dose: 5 mg Documented By: NADIA Apixaban (Apixaban 5 Mg Tablet) 5 mg PO BID [facility] Last Admin: 01/21/24 08:00 Dose: 5 mg Documented By: NADIA Atorvastatin Calcium (Atorvastatin Calcium 20 Mg Tablet) 20 mg PO DAILY [facility] Last Admin: 01/21/24 08:00 Dose: 20 mg Documented By: NADIA Fluoxetine HCl (Fluoxetine Hcl 20 Mg Capsule) 40 mg PO DAILY [facility] Last Admin: 01/21/24 08:01 Dose: 40 mg Documented By: NADIA Folic Acid (Folic Acid 1 Mg Tablet) 1 mg PO DAILY [facility] Last Admin: 01/21/24 08:00 Dose: 1 mg Documented By: NADIA Furosemide (Furosemide 20 Mg Tablet) 30 mg PO DAILY [facility]; Protocol Last Admin: 01/21/24 08:01 Dose: 30 mg Documented By: NADIA Gabapentin (Gabapentin 300 Mg Capsule) 300 mg PO BID [facility] Last Admin: 01/21/24 08:01 Dose: 300 mg Documented By: NADIA Glucose (Glucose Gel 15 Gm Gel..Gram.) 15 gm PO Q15M PRN; Protocol PRN Reason: per Hypoglycemia Standing Ord. Guaifenesin/Dextromethorphan (Guaifenesin Dm 100/10/5 Ml 5 Ml Syrup) 5 ml PO Q6H PRN PRN Reason: Cough Dextrose (D10) 250 mls @ 750 mls/hr IV Q15M PRN; Protocol PRN Reason: per Hypoglycemia Standing Ord. Insulin Human Lispro (Insulin Lispro 100 Unit/Ml 3 Ml Vial) 0 unit SUBCUT QIDACHS [facility]; Protocol Last Admin: 01/21/24 12:35 Dose: 4 unit Documented By: SIOMARA Methylprednisolone Sodium Succinate (Methylprednisolone Sod Succ 40 Mg/Ml Vial) 40 mg IVPUSH Q12H [facility] Last Admin: 01/21/24 06:10 Dose: 40 mg Documented By: SIMBA Metoprolol Tartrate (Metoprolol Tartrate 50 Mg Tablet) 50 mg PO BID [facility]; Protocol Last Admin: 01/21/24 08:00 Dose: 50 mg Documented By: NDAIA Multivitamins/Vitamin C (Multivitamin Tablet) 1 tab PO DAILY [facility] Last Admin: 01/21/24 08:00 Dose: 1 tab Documented By: NADIA Naltrexone HCl (Naltrexone Hcl 50 Mg Tablet) 25 mg PO DAILY [facility] Last Admin: 01/21/24 08:00 Dose: 25 mg Documented By: NADIA Nicotine (Nicotine 14 Mg Patch.Td24) 14 mg TRANSDERMA DAILY [facility] Last Admin: 01/21/24 08:03 Dose: 14 mg Documented By: NADIA Omeprazole (Omeprazole 40 Mg Capsule.Dr) 40 mg PO DAILY@0630 [facility] Last Admin: 01/21/24 06:10 Dose: 40 mg Documented By: SIMBA Pharmacy Consult (Consult Rx Etoh Phenob Im/Po) 1 each MISCELLANE ONCE PRN; Protocol PRN Reason: Consult order Phenobarbital (Phenobarbital 30 Mg Tablet) 30 mg PO BID [facility]; Protocol Stop: 01/22/24 21:01 Last Admin: 01/21/24 08:00 Dose: 30 mg Documented By: NADIA Phenobarbital (Phenobarbital 30 Mg Tablet) 30 mg PO DAILY [facility]; Protocol Stop: 01/24/24 09:01 Sodium Chloride (0.9 % Sodium Chloride Flush 3 Ml Syringe) 3 ml IVFLUSH QSHIFT [facility] Last Admin: 01/21/24 08:04 Dose: 3 ml Documented By: NADIA Thiamine HCl (Thiamine Hcl 100 Mg Tablet) 100 mg PO DAILY [facility] Last Admin: 01/21/24 08:01 Dose: 100 mg Documented By: NADIA Labs 01/19/24 06:18 01/20/24 06:01 Labs: Laboratory Results - last 24 hr 01/20/24 01/20/24 01/21/24 16:10 20:01 06:49 POC Glucose 208 H 259 H 239 H 01/21/24 10:55 POC Glucose 248 H Assessment and Plan (1) Alcohol use disorder, severe, dependence: Status: Acute (2) CHF exacerbation: Status: Acute (3) Hypoxic respiratory failure: Status: Acute Plan 63-year-old male with history of alcohol abuse, heart failure reduced ejection fraction, paroxysmal atrial fibrillation anticoagulated with Eliquis, MJ noncompliant with CPAP, GERD, hyperlipidemia, [id number] type 2 diabetes, tobacco use disorder admitted for management of acute hypoxemic respiratory failure secondary to CHF exacerbation and acute bronchitis complicated by MJ mechanical fall seen by PT - rec home with PT services Acute hypoxic respiratory failure, likely multifactorial due to Acute on chronic systolic congestive heart failure and acute bronchitis. last echo showed mildly decreased LV systolic function with EF 48% as well as mild pulmonary hypertension 06/2023 continue IV Solu-Medrol 40 mg b.i.d. s/p IV lasix, bicarb trending up, IV lasix stopped. overall net negative. resumed home dose lasix. still feeling sob, will give additional dose of IV lasix DuoNebs q.4h while awake Wean supplemental oxygen as tolerated Alcohol use disorder Continue phenobarbital protocol CIWA has remained low continue thiamine, folic acid addiction medicine following - started on naltrexone Atrial fibrillation, rate controlled Continue Eliquis and metoprolol. Essential hypertension continue metoprolol, Norvasc Type 2 diabetes mellitus POC glucose, diabetic diet Humalog on sliding scale. Hold metformin Obesity, class III BMI 44 kg/m2. Weight loss encouraged Contributing to respiratory failure Hyperlipidemia Continue statin. GERD Continue omeprazole. tobacco use disorder smoking cessation advised NRT MJ Continue CPAP DVT prophylaxis: Eliquis Code status: Full Requires ongoing inpatient stay for acute hypoxic respiratory failure therapy with supplemental oxygen, IV antibiotic therapy, scheduled bronchodilator therapy and IV steroids. Quality Stroke Does the patient have a stroke diagnosis?: No VTE Prior VTE?: No VTE Risk Level:: Medical - moderate - high VTE Device Contraindication: Treatment Not Indicated VTE Drug Contraindication: N/A - Med Ordered
[2024-01-21 16:46] LABS: Glucose, Whole Blood 262 mg/dL (60-115)
[2024-01-21 20:25] LABS: Glucose, Whole Blood 168 mg/dL (60-115)
[2024-01-22] VITALS (7 sets, daily range): BP systolic 145–160; BP diastolic 72–90; PULSE 72–108; RESP 16–20; TEMP 35.8–36.4; O2SAT 92–97
[2024-01-22] MEDS: 0.9 % Sodium Chloride Flush 3 ML SYRINGE IVFLUSH (01:47)
[2024-01-22] MEDS: guaiFENesin DM 100/10/5 ML 5 ML SYRUP PO ×2 (01:58→09:28)
[2024-01-22] MEDS: methylPREDNISolone Sod Succ 40 MG/ML VIAL IVPUSH (05:22)
[2024-01-22] MEDS: Omeprazole 40 MG CAPSULE.DR PO (05:22)
[2024-01-22 07:30] LABS: Glucose, Whole Blood 182 mg/dL (60-115)
[2024-01-22] MEDS: Albuterol/Iprat 2.5/0.5MG 3 ML AMPUL.NEB INHALE ×2 (07:32→11:17)
[2024-01-22] MEDS: Nicotine 14 MG PATCH.TD24 TRANSDERMA (09:23)
[2024-01-22] MEDS: Folic Acid 1 MG TABLET PO (09:23)
[2024-01-22] MEDS: Multivitamin TABLET 1 TAB PO (09:23)
[2024-01-22] MEDS: Metoprolol Tartrate 50 MG TABLET PO (09:23)
[2024-01-22] MEDS: Insulin Lispro 100 UNIT/ML 3 ML VIAL SUBCUT ×2 (09:23→11:48)
[2024-01-22] MEDS: amLODIPine Besylate 5 MG TABLET PO (09:24)
[2024-01-22] MEDS: Gabapentin 300 MG CAPSULE PO (09:24)
[2024-01-22] MEDS: PHENobarbitaL 30 MG TABLET PO (09:24)
[2024-01-22] MEDS: FLUoxetine HCl 20 MG CAPSULE 40 MG PO (09:24)
[2024-01-22] MEDS: Atorvastatin Calcium 20 MG TABLET PO (09:24)
[2024-01-22] MEDS: Naltrexone HCl 50 MG TABLET 25 MG PO (09:24)
[2024-01-22] MEDS: Thiamine HCL 100 MG TABLET PO (09:24)
[2024-01-22] MEDS: Apixaban 5 MG TABLET PO (09:24)
--- NOTE | 2024-01-22 11:10 | PM.DS ---
DS: Providers Provider Date of Service: 01/22/24 Date of admission: 01/18/24 06:19 Date of discharge: 01/22/24 Primary care physician: BABATUNDE Mckoy Consults: 01/18/24 15:50 Addiction Medicine Routine Consulting Provider: Addiction Covering Reason for consultation: etoh use disorder Attending physician on discharge: Diane Jama Discharging clinician: Jacquelin Mcgee DS: Diagnosis Discharge Diagnosis (1) Alcohol use disorder, severe, dependence: Status: Acute (2) CHF exacerbation: Status: Acute (3) Hypoxic respiratory failure: Status: Acute DS: Summary Hospital Course Hospital Course: From H&P on the day of admission Esteban Galindo is a 63 years old man with past medical history significant for alcohol abuse, HFrEF (48%), atrial fibrillation on Eliquis, MJ (noncompliant with CPAP), GERD, tobacco use disorder, hyperlipidemia and type 2 diabetes mellitus was brought to the emergency department due to worsening shortness of breath over the last 2 weeks. HPI was difficult to obtain directly from the patient as he is currently using a CPAP mask. According to ED triage note EMS found the patient to have O2 saturation 79% on room air. Breathing treatment with DuoNeb was provided and was placed on non-rebreather mask. In the ED, he was found to have stable vital signs. He is currently requiring 4 L supplemental oxygen via CPAP mask. Blood workup showed no leukocytosis. There are no electrolyte imbalances. Renal function is normal. LFTs are normal except for slight elevation of alk-phos. Troponin is 3.9 and BNP is 609 which similar to prior.. Blood gas showed no acute respiratory acidosis. Ethanol level is 105. CXR showed mild prominence of central vasculature without overt edema. It also showed streaky bibasal opacities suggesting atelectasis. ECG showed atrial fibrillation, heart rate 77 bpm without acute ischemic changes. ED tx: DuoNeb x1, Lasix 20 mg IV. mechanical fall seen by PT - rec home with PT services. Acute hypoxic respiratory failure, likely multifactorial due to Acute on chronic systolic congestive heart failure and acute bronchitis. last echo showed mildly decreased LV systolic function with EF 48% as well as mild pulmonary hypertension 06/2023 Treated with IV steroids, breathing treatments, IV Lasix. Overall net negative, transitioned back to oral Lasix He was weaned off of supplemental oxygen, had home oxygen evaluation and he does not qualify for supplemental oxygen. Recommend low salt diet and monitoring fluid intake. Patient has been able to ambulate throughout his room without shortness of breath and without oxygen. Alcohol use disorder Continue phenobarbital protocol CIWA has remained low continue thiamine, folic acid addiction medicine following - started on naltrexone. plan to follow up in the [facility] Obesity, class III BMI 44 kg/m2. Weight loss encouraged Contributing to respiratory failure Tobacco use disorder Smoking cessation was encouraged. Patient does not plan to stop smoking. Time Attestation Discharge Coordination Time (in mins): 40 Quality: Safe Use of Opioids Does Pt have an Active Cancer Diagnosis on the Problem List?: No Quality: Stroke Does the patient have a stroke diagnosis?: No Physical Exam Vital Signs: Vital Signs: Last Vital Signs Temp 97.5 F 01/22/24 10:54 Pulse 84 01/22/24 10:54 Resp 20 01/22/24 10:54 BP 150/90 H 01/22/24 10:54 Pulse Ox 94 01/22/24 10:54 O2 Del Method Room Air 01/22/24 10:54 O2 Flow Rate 95 01/21/24 06:47 BMI result Body Mass Index 43.4 Const: General: comfortable, no acute distress, alert and awake Nutritional Appearance: obese Orientation/consciousness: patient oriented x3 Resp: Other: No wheeze Effort & Inspection: normal respiratory effort, able to speak in complete sentences, no respiratory distress and no use of accessory muscles Cardio: Rate: regular rate GI: Inspection: No distended and Yes obesity Palpation (GI): Soft to palpation and nontender Neuro: Other: Grossly nonfocal General: patient oriented x3 and moves all extremities DS: Data Data Completed and Pending Completed studies during hospitalization [Text1]: Procedures Assistance with Respiratory Ventilation, Less than 24 Consecutive Hours, Continuous Positive Airway Pressure (11/29/23) Bypass Trachea to Cutaneous with Tracheostomy Device, Percutaneous Approach (05/30/20) Change Tracheostomy Device in Trachea, External Approach (05/30/20) Detoxification Services for Substance Abuse Treatment (11/29/23) Drainage of Left Lower Lung Lobe, Via Natural or Artificial Opening Endoscopic, Diagnostic (05/30/20) Insertion of Endotracheal Airway into Trachea, Via Natural or Artificial Opening (05/30/20) Insertion of Feeding Device into Stomach, Percutaneous Approach (05/30/20) Insertion of Infusion Device into Right Atrium, Percutaneous Approach (05/30/20) Insertion of Infusion Device into Superior Vena Cava, Percutaneous Approach (05/30/20) Performance of Cardiac Output, Single, Manual (05/30/20) Performance of Urinary Filtration, Intermittent, Less than 6 Hours Per Day (05/30/20) Respiratory Ventilation, Greater than 96 Consecutive Hours (05/30/20) Ultrasonography of Superior Vena Cava, Guidance (05/30/20) Labs on day of discharge: Laboratory Results - last 24 hr 01/21/24 01/21/24 01/21/24 10:55 16:35 20:17 POC Glucose 248 H 262 H 168 H 01/22/24 07:25 POC Glucose 182 H Discharge Plan Discharge Anticipated Discharge Date/Time: 01/22/24 11:17 Patient Disposition: Home Health Service Discharge Diagnosis: Acute on chronic CHF Hypoxic respiratory failure Referrals: Ortiz Deluca FNP- [Primary Care Provider] - 1 Week Discharge Medications: New nicotine 14 mg/24 hr Patch 24 Hour 14 mg transdermal DAILY Qty: 28 0RF naltrexone 50 mg Tablet 50 mg PO DAILY 30 Days Qty: 30 0RF prednisone 20 mg tablet 40 mg PO DAILY 5 Days Qty: 10 0RF Continued (DME) blood-glucose meter [FreeStyle Lite Meter] Kit See Rx Instructions .ROUTE .MEDSUPPLY Qty: 1 0RF Rx Instructions: check sugar twice a day (DME) lancets [FreeStyle Lancets] 28 gauge misc See Rx Instructions .ROUTE .MEDSUPPLY Qty: 100 2RF Rx Instructions: check sugar twice a day (DME) FreeStyle David 2 [place] Misc See Rx Instructions .Route Qty: 1 0RF Rx Instructions: tid testing (DME) FreeStyle David 2 Sensor Kit See Rx Instructions .Route Qty: 1 3RF Rx Instructions: tid testing folic acid 1 mg tablet 1 mg PO DAILY Qty: 90 1RF gabapentin 300 mg capsule 300 mg PO BID 30 Days Qty: 60 4RF furosemide 20 mg tablet 30 mg PO DAILY Qty: 135 1RF lisinopril 2.5 mg tablet 2.5 mg PO DAILY Qty: 90 1RF omeprazole 20 mg capsule,delayed release(DR/EC) 40 mg PO DAILY@0630 Qty: 180 1RF rosuvastatin 5 mg tablet 5 mg PO DAILY Qty: 90 1RF metformin 850 mg tablet 850 mg PO DAILY Qty: 90 1RF metoprolol tartrate 50 mg tablet 50 mg PO BID Qty: 180 0RF Protocol: Hold for SBP/HR < HOLD for SBP < : 90 HOLD for HR < : 60 amlodipine 5 mg tablet 5 mg PO DAILY Qty: 90 1RF fluoxetine 40 mg capsule 40 mg PO DAILY Qty: 90 0RF multivitamin with folic acid [Daily-Carlito (with folic acid)] 400 mcg tablet 1 tab PO DAILY Qty: 90 1RF acetaminophen [Tylenol Arthritis Pain] 650 mg tablet extended release 650 mg PO Q12H PRN (Reason: pain) 30 Days Qty: 60 0RF Eliquis 5 mg tablet 5 mg PO BID Qty: 180 1RF albuterol sulfate 90 mcg/actuation HFA aerosol inhaler 2 puff inhalation QID PRN (Reason: Wheezing) Qty: 8.5 3RF thiamine mononitrate (vit B1) 100 mg Tablet 100 mg PO DAILY Qty: 30 0RF Discharge Orders: Discharge Order (Routine); Ordered 01/22/24 Ordered By: Jacquelin Mcgee Activity on Discharge: As tolerated Stand Alone Forms: Patient Portal Discharge page Print Language: Greenlandic Care Plan Goals: See below Health Concerns: Acute hypoxic respiratory failure Acute CHF exacerbation Acute bronchitis Alcohol use disorder Plan of Treatment: Recommend to follow a diabetic, low salt diet. Monitor daily weight, limit fluid intake to 1.5 L daily Complete course of steroids as prescribed Recommend to abstain from alcohol use and tobacco use. Can use nicotine patch You have been started on naltrexone to assist in alcohol cessation. Do not drink alcohol while taking this medication. Call to schedule a follow-up appointment [facility] Take all medications as prescribed You will be discharged home with physical therapy services Call to schedule a follow-up appointment with your PCP Assessment: See discharge summary
[2024-01-22 11:21] LABS: Glucose, Whole Blood 327 mg/dL (60-115)
--- NOTE | 2024-01-22 11:28 | W.MHC.F2F ---
Service Date Service Date: 01/22/24 Encounter Date of encounter: 01/22/24 Reasons for Services Signs and symptoms assessed: needs PT services Reason for physical therapy: home safety and mobility, therapeutic exercises and gait/transfer training Overseeing Care: Ortiz Deluca Homebound: Leaving the home is medically contraindicated at this time without the asist of a device and/or another person due th the listed conditions above and below. Reason homebound: weakness related to hospital stay Certification: Based on the above findings, I certify that this patient is confined to the home and needs intermittent penitentiary care, physical therapy and/or speech therapy, or continues to need occupational therapy. The patient is under my care, and I have initiated the establishment of the plan of care. The patient will be followed by a physician who will periodically review the plan of care. Time Spent With Patient Time: Total time managing care of this patient today ____ minutes.
--- NOTE | 2024-01-22 12:17 | MHC.CM.PN ---
Addendum entered by Elana Diaz 01/22/24 12:50: PT TRANSPORTED HOME VIA LYFT HE DECLINED ANY SERVICES Original Note: CM MET WITH PT TO DISCUSS DC PLANNING PT STATES HE DID NOT KNOW HOME PT WAS BEING ORDERED AND HE IS NOT INTERESTED HE SAYS HE DOES NOT FEEL HE NEEDS ANY SERVICES AND FEELS SAFE TRANSFERRING IN AND OUT OF A CAR HE IS AWARE A LYFT WILL BE ORDERED ONCE HE IS READY TO LEAVE
== END 2024-01-22 12:42 | disposition home health service (06) | DRG 291 ==
LOC: HO.ED 05:22 → HO.EDOVER 06:25 → HO.IMC 09:34
PROVIDERS: Physician Assistant; Admitting Provider Internal Medicine; Emergency Provider Internal Medicine; PCP Nurse Practitioner Family; Visit Provider Physician Assistant Medical
DX: I13.0 Hypertensive heart and chronic kidney disease with heart failure and stage 1 through stage 4 chronic kidney disease, or unspecified chronic kidney disease (principal); I50.23 Acute on chronic systolic (congestive) heart failure; J96.01 Acute respiratory failure with hypoxia; E66.2 Morbid (severe) obesity with alveolar hypoventilation; Z68.41 Body mass index [BMI] 40.0-44.9, adult; F10.239 Alcohol dependence with withdrawal, unspecified; J98.11 Atelectasis; N18.30 Chronic kidney disease, stage 3 unspecified; F10.229 Alcohol dependence with intoxication, unspecified; Y90.5 Blood alcohol level of 100-119 mg/100 ml; I27.20 Pulmonary hypertension, unspecified; K21.9 Gastro-esophageal reflux disease without esophagitis; E78.2 Mixed hyperlipidemia; E11.22 Type 2 diabetes mellitus with diabetic chronic kidney disease; F17.210 Nicotine dependence, cigarettes, uncomplicated; Z91.199 Patient's noncompliance with other medical treatment and regimen due to unspecified reason; Z71.6 Tobacco abuse counseling; Z79.01 Long term (current) use of anticoagulants; Z79.84 Long term (current) use of oral hypoglycemic drugs; Z79.899 Other long term (current) drug therapy
CPT/HCPCS: 36415; 70450; 71045; 72125; 73560; 80048; 80053; 80307; 82803; 82947; 83880; 84484; 85025; 85610; 93005; 94640; 94660; 97162; 99285; J1940; J2560; J2919; J3411

== ENCOUNTER → 2024-01-18 05:00 | Outpatient (BNV) | payer MEDICARE, OTHER, MEDICAID, SELFPAY | PROVIDERS: Admitting Provider Internal Medicine; Emergency Provider Internal Medicine; PCP Nurse Practitioner Family; Visit Provider Internal Medicine | DX: R94.31 Abnormal electrocardiogram [ECG] [EKG] (principal) | CPT/HCPCS: 93010 ==

== ENCOUNTER → 2024-01-18 06:19 | Outpatient (BNV) | payer MEDICARE, OTHER, MEDICAID, SELFPAY | PROVIDERS: Admitting Provider Internal Medicine; Emergency Provider Internal Medicine; PCP Nurse Practitioner Family; Visit Provider Internal Medicine | DX: J96.01 Acute respiratory failure with hypoxia (principal); F10.20 Alcohol dependence, uncomplicated | CPT/HCPCS: 99223; 99232; 99239; 99499; G0180 ==

== ENCOUNTER → 2024-01-18 06:19 | Outpatient (BNV) | payer MEDICARE, OTHER, MEDICAID, SELFPAY | PROVIDERS: Admitting Provider Internal Medicine; Emergency Provider Internal Medicine; PCP Nurse Practitioner Family; Visit Provider Nurse Practitioner Psychiatric/Mental Health | DX: F10.20 Alcohol dependence, uncomplicated (principal) | CPT/HCPCS: 99221 ==

== ENCOUNTER 2024-03-19 12:51 | Outpatient (AMB) | payer MEDICARE, OTHER, MEDICAID, SELFPAY ==
--- NOTE | 2024-03-19 12:54 | MHC.OFFVIS ---
Vital Signs 03/19/24 12:55 Height 6 ft 1 in Weight 324 lb 1.272 oz BMI 42.8 BP 150/82 H Blood Pressure Location Rt brachial Position Sitting Pulse 89 Pulse Source Pulse Oximeter Pulse Oximetry (%) 94 Oxygen Delivery Method Room Air Intake Visit Reasons: hospital follow up Allergies No Known Allergies [No Known Allergies*] Allergy (Verified 03/19/24 12:59) HPI HPI hospital follow up: Details: Esteban is a pleasant 64 year old male, current smoker, with 40+ pack year history, with underlying chronic respiratory failure, CHF, hypoventilation obesity syndrome, MJ not on CPAP therapy, atrial fibrillation on Eliquis, DMII and GERD. He is under the care of Dr. Aviles and presents today for a hospital follow up. He was admitted 01/17-01/21 for acute hypoxic respiratory failure, likely multifactorial due to acute on chronic systolic congestive heart failure and acute bronchitis. He was placed on 4L supplemental oxygen and treated with IV solumedrol, DuoNebs and IV lasix with significant improvement in symptoms. He was discharged without the need for supplemental oxygen and feels symptoms are back to baseline. He continues to report intermittent dyspnea on exertion, dry cough and wheezing. He has required albuterol MDI frequently. He does not have a daily inhaler. Of note, he is motivated to restart CPAP therapy. He states he has been using his brother's machine and continues to have nonrestorative sleep, significant daytime fatigue and frequent night awakenings. [facility] Medical History (Updated 03/19/24 @ 20:20 by Shelly Zarco NP) MJ (obstructive sleep apnea) CHF (congestive heart failure) Alcohol use disorder, severe, dependence CHF (congestive heart failure) Effusion, right knee Screen for STD (sexually transmitted disease) Left ankle swelling Hypomagnesemia Diarrhea Acute UTI Physical exam Nocturia Microhematuria Elevated serum creatinine Morbid obesity Increased ammonia level Weakness of both lower extremities Dermatitis, unspecified History of cardiac arrest (~05/2020) Nicotine dependence, cigarettes, uncomplicated Personal history of colonic polyps Hypoventilation associated with obesity syndrome Encephalopathy chronic CKD (chronic kidney disease) stage 3, GFR 30-59 ml/min Cirrhosis Diabetes Obesity (BMI 35.0-39.9 without comorbidity) Wernicke encephalopathy Obstructive sleep apnea (adult) (pediatric) Rib fractures CHF (congestive heart failure) Left atrial enlargement Persistent atrial fibrillation Depression Gout Arthritis Anxiety HTN (hypertension) Surgical History History of tracheostomy (~2019) History of bronchoscopy (~2019) History of colonoscopy (~2021) History of esophagogastroduodenoscopy (EGD) (~2021) History of cardioversion (~2020) S/P percutaneous endoscopic gastrostomy (PEG) tube placement (~2019) Family History Father Lung cancer Mother No problems noted. Maternal Aunt History of heart attack Sister No problems noted. Brother Cancer of kidney Brother No problems noted. Brother No problems noted. Brother No problems noted. Brother No problems noted. Brother No problems noted. Other Substance use disorder Social History Household Members: Family Housing: House Do you presently have visiting nurse or other home services: No Unable to assess alcohol history related to: Unknown Alcohol intake: current Alcohol intake frequency: 0-2 drinks per day Alcohol type: beer and hard liquor Comment: pt refuses fall risk interventions and protocol Patient Tobacco Use Status: Current everyday Tobacco user Tobacco use type: Cigarette Cigarette Packs Per Day: 0.5 Cigarettes Per Day: 10.0 Years Smoked: 40 e-Cigarette/Vaping Use: Never Used Second Hand Smoke Exposure: No Advance Directives Date on File: 06/05/20 service: Yes Current occupational status: unemployed Cognitive needs: No Hearing needs: No Vision needs: No Review of Systems Const Denies chills, Denies excessive sweating, Denies fever(s), Denies headache(s) and Denies night sweats Eyes Denies dry eyes, Denies irritation and Denies itchy eyes ENT Reports Normal hearing present, Denies headache(s), Denies nasal congestion, Denies nasal discharge, Denies post nasal drip and Denies sore throat Card Denies chest pain, Denies chest pain at rest, Denies chest pain with activity, Denies claudication, Denies leg edema, Reports dyspnea on exertion, Denies orthopnea and Denies paroxysmal nocturnal dyspnea Resp Denies chest congestion, Reports cough, Denies excessive phlegm production, Denies pain on inspiration, Denies pain with cough, Reports dyspnea on exertion, Denies stridor and Reports wheezing Musc Denies myalgias Neuro Reports Normal hearing present and Denies headache(s) Endo Denies excessive sweating Jairo/Lymph Denies lymphadenopathy Aller/Immun Denies itchy eyes, Denies seasonal rhinorrhea and Reports wheezing Physical Exam Vital Signs: Last Vital Signs Pulse 89 03/19/24 12:55 BP 150/82 H 03/19/24 12:55 Pulse Ox 94 03/19/24 12:55 Oxygen Delivery Method Room Air 03/19/24 12:55 BMI result Body Mass Index 42.8 Const General: cooperative, comfortable, no acute distress, well developed and alert Nutritional Appearance: obese Orientation/consciousness: patient oriented x3 Limitations: no limitations HEENT Head: Yes normal to inspection, Yes normocephalic and Yes atraumatic Ears: hearing grossly normal bilaterally and external ears normal Eyes General: appearance normal, both eyes and all related structures Eyelids: Yes eyelids normal Sclerae: sclerae normal EOM: EOMs intact bilaterally Neck Neck: Yes normal visual inspection and Yes no lymphadenopathy Lymphatic: no lymphadenopathy noted Chest Chest palpation & inspection: normal inspection of the chest Resp Effort & Inspection: normal respiratory effort, able to speak in complete sentences, no audible wheezes, no stridor, not tachypneic, no tripod positioning and no use of accessory muscles Auscultation: clear to auscultation bilaterally Cardio Jugular venous distension: no JVD Rate: regular rate Skin Other: warm, dry General skin exam: no rashes or lesions noted Neuro General: patient oriented x3 Cranial nerves: Yes Normal hearing present Cognition (Neuro): normal cognition Gait exam (Neuro): Normal gait present Extrem General: Yes normal to inspection, Yes capillary refill normal, Yes no clubbing, cyanosis or edema and Yes no pedal edema Psych Appearance: grossly normal and well kempt Speech and movement: Normal speech and movement present and Clear speech present Affect: normal affect Attitude: cooperative Thought process: Normal thought process present Thought content: Normal thought content present Insight: Good insight present (Psych) Judgement: Good judgement present (Psych) Assessment & Plan Assessment & Plan (1) Chronic respiratory failure: Code(s): J96.10 - Chronic respiratory failure, unspecified whether with hypoxia or hypercapnia Category: Medical Qualifiers: Respiratory failure complication: hypoxia and hypercapnia Qualified Code(s): J96.11 - Chronic respiratory failure with hypoxia; J96.12 - Chronic respiratory failure with hypercapnia (2) Nicotine dependence, cigarettes, uncomplicated: Comment: (current smoker - onset 17yo, 1ppd x 45yrs - 45pyh) Code(s): F17.210 - Nicotine dependence, cigarettes, uncomplicated Category: Medical (3) MJ (obstructive sleep apnea): Comment: (Severe MJ - AHI 76 on 07/24/12 sleep test) Code(s): G47.33 - Obstructive sleep apnea (adult) (pediatric) Category: Medical (4) Dyspnea: Code(s): R06.00 - Dyspnea, unspecified Category: Medical Plan Esteban presents for hospital follow up for acute respiratory failure. He reports overall improvements however continues using albuterol frequently. Will trial ICS/LABA for likely underlying COPD. Discussed importance of good oral hygiene to prevent thrush and smoking cessation. He previously was found to have severe MJ, currently using his brother's CPAP machine with suboptimal effect. He is motivated to use consistently. Will send for sleep titration study to obtain optimal pressures. All questions were answered and patient is in agreement of plan. Will follow up with Dr. Aviles to review results or sooner if needed. Orders: Orders RT PSG in-lab sleep titration Today G47.33 - Obstructive sleep apnea (adult) (pediatric), J96.11 - Chronic respiratory failure with hypoxia, J96.12 - Chronic respiratory failure with hypercapnia Medications: New fluticasone propion-salmeterol 115-21 mcg/actuation (Advair HFA) 2 puffs inhalation Q12H 12 grams 3RF Coding Level of Care Code Est Pt Level 4 (88096) Diagnoses Chronic respiratory failure J96.11; J96.12 Respiratory failure complication: hypoxia and hypercapnia Nicotine dependence, cigarettes, uncomplicated F17.210 MJ (obstructive sleep apnea) G47.33 Dyspnea R06.00
[2024-03-19 12:55] VITALS: BP 150/82; PULSE 89; O2SAT 94; BMI 42.8
== END 2024-03-19 13:44 | disposition home or self-care (01) ==
PROVIDERS: PCP Nurse Practitioner Family; Visit Provider Nurse Practitioner Family
DX: J96.11 Chronic respiratory failure with hypoxia (principal); J96.12 Chronic respiratory failure with hypercapnia; F17.210 Nicotine dependence, cigarettes, uncomplicated; G47.33 Obstructive sleep apnea (adult) (pediatric)
CPT/HCPCS: 99214

== ENCOUNTER → 2024-03-19 12:51 | Outpatient (BNVA) | payer MEDICARE, OTHER, MEDICAID, SELFPAY | PROVIDERS: PCP Nurse Practitioner Family; Visit Provider Nurse Practitioner Family | DX: J96.11 Chronic respiratory failure with hypoxia (principal); I11.0 Hypertensive heart disease with heart failure; I50.22 Chronic systolic (congestive) heart failure; E66.2 Morbid (severe) obesity with alveolar hypoventilation; F17.210 Nicotine dependence, cigarettes, uncomplicated; Z68.41 Body mass index [BMI] 40.0-44.9, adult; Z99.81 Dependence on supplemental oxygen | CPT/HCPCS: 99212 ==

== ENCOUNTER 2024-04-05 22:43 | Emergency (ER) | payer MEDICARE, OTHER, MEDICAID, SELFPAY ==
--- NOTE | 2024-04-05 | ECG_ITS ---
Test Reason : CHESTPAIN Blood Pressure : / mmHG Vent. Rate : 087 BPM Atrial Rate : 000 BPM P-R Int : 000 ms QRS Dur : 096 ms QT Int : 396 ms P-R-T Axes : 000 086 051 degrees QTc Int : 476 ms Atrial fibrillation Abnormal ECG When compared with ECG of 18-JAN-2024 05:00, No significant change was found Referred By: Generic ED Physician Electronically Signed By:OLGA GRANDA MD
--- NOTE | ~2024-04-05 | CT_ITS ---
EXAMINATION: CT CERVICAL SPINE WITHOUT CONTRAST; UNENHANCED CT OF THE HEAD. CLINICAL INFORMATION: Fall. Headache. EtOH. Eliqis COMPARISON: CT head and cervical spine 01/21/2024. TECHNIQUE: Routine unenhanced CT of the head with multiple coronal and sagittal reformatted images; routine unenhanced CT of the cervical spine with multiple coronal and sagittal reformatted images. This CT examination was performed using dose optimization techniques as appropriate, variously including the following: *Automated exposure control *Adjustment of mA and/or kV according to patient size (this includes techniques or standardized protocols for targeted exams where dose is matched to indication/reason for exam; i.e. extremities or head) *Use of iterative reconstruction technique DLP: 1665 mGy-cm FINDINGS: CT head: No intracranial hemorrhage, tumors or acute infarcts identified. Mild diffuse commensurate prominence of the ventricles and sulci. Focal cystic encephalomalacia unchanged within the left precentral subcortical white matter. Mild scattered subcortical and periventricular white matter patchy hypodensities. Bilateral proptosis. No intracranial soft tissue inflammatory changes. Lobulated density within the left maxillary sinus which may represent a mucosal retention cyst similar findings present on the comparison exam. CT cervical spine: No fractures or acute appearing subluxation is identified. Moderate intervertebral disc space narrowing and posterior endplate osteophytosis C4-C5 and C5-C6. No prevertebral fluid collections or soft tissue inflammatory changes. Bilateral retropharyngeal course of the internal carotid arteries. Partial visualization of centrilobular emphysema within the incidentally visualized lung apices. Findings suspicious for partial visualization of a trace right pleural effusion and possible trace left pleural effusion. Paraseptal emphysematous changes noted in the visualized lung apices. CT/CT cervical spine wo IV con IMPRESSION: CT head: *No acute abnormalities. *Mild chronic microangiopathic ischemic changes. CT cervical spine: *No acute abnormalities. *Moderate multilevel chronic spondylosis. *Within the incidentally visualized lung apices findings are present suspicious for possible trace bilateral pleural effusions. Electronically signed by: Shimon Wilkins MD 04/06/2024 03:10 AM EDT
[2024-04-05 22:50] VITALS: BP 122/78; BP 85/44; PULSE 82; PULSE 85; RESP 20; TEMP 36.7; O2SAT 92; O2SAT 96; BMI 34.5
[2024-04-05 23:07] VITALS: BP 100/36; PULSE 85; RESP 23; O2SAT 93
[2024-04-05 23:20] VITALS: BP 98/58; PULSE 76; RESP 17; O2SAT 96
[2024-04-05 23:31] LABS: MANUAL DIFF FLAG NO
[2024-04-05 23:32] LABS: Basophils Absolute Auto 0.1 X10*3/uL (0.0-0.2); Basophils Percent Auto 0.8 % (0-2); Eosinophils Absolute Auto 0.4 X10*3/uL (0.0-0.4); Eosinophils Percent Auto 3.2 % (0-4); Hematocrit 43.1 % (42.0-52.0); Hemoglobin 14.1 g/dl (14.0-18.0); Imm Gran Abs Auto 0.05 X10*3/uL (0.00-0.03); Imm Gran Pct Auto 0.4 % (0.0-0.4); Lymphocytes Absolute Auto 3.7 X10*3/uL (1.2-4.9); Lymphocytes Percent Auto 30.4 % (20-40); Mean Corpuscular HGB Conc 32.7 g/dl (31.0-36.0); Mean Corpuscular Hemoglobin 28.4 pg (27.0-33.0); Mean Corpuscular Volume 86.9 fL (80.0-98.0); Mean Platelet Volume 10.4 fL (9.4-12.4); Monocytes Absolute Auto 1.3 X10*3/uL (0.1-1.2); Monocytes Percent Auto 10.8 % (2-11); Neutrophils Absolute Auto 6.5 x10*3/uL (2.0-8.3); Neutrophils Percent Auto 54.4 % (45-73); Platelet Count 198 X10*3/uL (160-400); Red Blood Count 4.96 X10*6/uL (4.60-5.80); Red Cell Distribution Width 16.3 % (11.0-16.0)
[2024-04-05 23:54] LABS: Troponin-I High Sensitivity 8.1 ng/L (<3.5-35.0)
[2024-04-05 23:55] LABS: Anion Gap 20 (12-20); Blood Urea Nitrogen 12 mg/dL (9-16); Calcium 8.4 mg/dL (8.4-10.2); Carbon Dioxide 24 mmol/L (22-29); Chloride 98 mmol/L (96-108); Creatinine Clr Calc Pharmacy 47.9; Estimated Glomerular Filt Rate 31; Glucose Random 151 mg/dL (60-115); Potassium 2.8 mmol/L (3.3-5.1); Sodium 139 mmol/L (135-145)
[2024-04-06 01:57] VITALS: BP 111/75; PULSE 82; RESP 22; TEMP 36.6; O2SAT 95
--- NOTE | 2024-04-06 02:11 | ED.CHESTPAIN ---
HPI - Chest Pain General Chief Complaint: Chest Pain Stated Complaint: chest pain, sob Time Seen by Provider: 04/06/24 02:00 Source: patient and EMS Mode of arrival: EMS Limitations: no limitations History of Present Illness ED Provider: Dr. Shelly Avilez HPI narrative: Patient comes to the emergency room complaining of chest pain that started approximately 4 hours ago prior to arrival. Patient states that he tried standing up from the couch, got very dizzy, fell in to his couch and then backwards. Patient hit the back of his head, did not lose consciousness. Patient states that he was drinking alcohol and admits that he is on Eliquis. Patient at this time feeling better Related Data Previous Rx's ?Medication ?Instructions ?Recorded blood-glucose meter (FreeStyle #1 ea 09/03/20 Lite Meter kit) lancets 28 gauge (FreeStyle #100 ea 02/02/21 Lancets) FreeStyle David 2 [place] (flash #1 ea 07/03/22 glucose scanning reader) FreeStyle David 2 Sensor (flash #1 ea 07/03/22 glucose sensor) gabapentin 300 mg capsule 300 mg PO BID 30 days #60 caps 09/16/23 metoprolol tartrate 50 mg tablet 50 mg PO BID #180 tabs 11/13/23 thiamine mononitrate (vit B1) 100 100 mg PO DAILY #30 tabs 11/28/23 mg tablet acetaminophen 650 mg 650 mg PO Q12H PRN pain 30 days 12/06/23 tablet,extended release (Tylenol #60 tabs Arthritis Pain) amlodipine 5 mg tablet 5 mg PO DAILY #90 tabs 12/06/23 fluoxetine 40 mg capsule 40 mg PO DAILY #90 caps 12/06/23 multivitamin with folic acid 400 1 tab PO DAILY #90 tabs 12/06/23 mcg tablet (Daily-Carlito (with folic acid)) apixaban 5 mg tablet (Eliquis) 5 mg PO BID #180 tabs 12/16/23 albuterol sulfate 90 mcg/actuation 2 puff inhalation QID PRN Wheezing 01/16/24 aerosol inhaler #8.5 grams naltrexone 50 mg tablet 50 mg PO DAILY 30 days #30 tabs 01/22/24 nicotine 14 mg/24 hr daily 14 mg transdermal DAILY #28 ea 01/22/24 transdermal patch metformin 850 mg tablet 850 mg PO DAILY #90 tabs 01/24/24 rosuvastatin 5 mg tablet 5 mg PO DAILY #90 tabs 01/27/24 fluticasone propionate 115 2 puff inhalation Q12H #12 grams 03/19/24 mcg-salmeterol 21 mcg/actuation HFA inhaler (Advair HFA) folic acid 1 mg tablet 1 mg PO DAILY #90 tabs 03/23/24 furosemide 20 mg tablet 30 mg (1.5 x 20 mg) PO DAILY #135 03/23/24 tabs lisinopril 2.5 mg tablet 2.5 mg PO DAILY #90 tabs 03/23/24 omeprazole 20 mg capsule,delayed 40 mg (2 x 20 mg) PO DAILY@0630 03/23/24 release #180 caps Allergies Allergy/AdvReac Type Severity Reaction Status Date / Time No Known Allergies Allergy Verified 04/05/24 22:54 [No Known Allergies*] Review of Systems Review of Systems: Constitutional : No Weight loss, No Fever, No Chills, No Night Sweats, No Fatigue, No Malaise ENT/Mouth : No Hearing loss, No Ear Pain, No Nasal Congestion, No Sinus Pain, No Hoarseness, No sore throat, No Rhinorrhea, No Swallowing Difficulty Eyes: No Eye Pain, No Swelling, No Redness, No Foreign Body, No Discharge, No Vision Changes Cardiovascular : Complaining of chest pain that now resolved, No SOB, No Dyspnea on Exertion, No Orthopnea, No Edema, No Palpitations Respiratory : No Cough, No Sputum, No Wheezing, No Smoke Exposure, No Dyspnea Gastrointestinal : No Nausea, No Vomiting, No Diarrhea, No Constipation, No abdominal Pain, No Hematochezia, No Melena Genitourinary : no irregular bleeding, No Dysuria, No Urinary Frequency, No Hematuria, No Urinary Incontinence, No Urgency, No Flank Pain, No Urinary Flow Changes, No Hesitancy Musculoskeletal : No joint pain, No Myalgias, No Joint Swelling Skin : No Skin Lesions, No rash Neuro : No Weakness, No Numbness, No Paresthesias, No Loss of Consciousness, No Dizziness, No Headache Psych : No Anxiety/Panic, No Depression, No SI/HI/AH/VH, No Social Issues, Heme/Lymph: No Bruising, No Bleeding,No Lymphadenopathy Endocrine : No Polyuria, No Polydipsia, No Temperature Intolerance PMFSH Past Medical History Medical History MJ (obstructive sleep apnea) CHF (congestive heart failure) Alcohol use disorder, severe, dependence CHF (congestive heart failure) Effusion, right knee Screen for STD (sexually transmitted disease) Left ankle swelling Hypomagnesemia Diarrhea Acute UTI Physical exam Nocturia Microhematuria Elevated serum creatinine Morbid obesity Increased ammonia level Weakness of both lower extremities Dermatitis, unspecified History of cardiac arrest (~05/2020) Nicotine dependence, cigarettes, uncomplicated Personal history of colonic polyps Hypoventilation associated with obesity syndrome Encephalopathy chronic CKD (chronic kidney disease) stage 3, GFR 30-59 ml/min Cirrhosis Diabetes Obesity (BMI 35.0-39.9 without comorbidity) Wernicke encephalopathy Obstructive sleep apnea (adult) (pediatric) Rib fractures CHF (congestive heart failure) Left atrial enlargement Persistent atrial fibrillation Depression Gout Arthritis Anxiety HTN (hypertension) Surgical History History of tracheostomy (~2019) History of bronchoscopy (~2019) History of colonoscopy (~2021) History of esophagogastroduodenoscopy (EGD) (~2021) History of cardioversion (~2020) S/P percutaneous endoscopic gastrostomy (PEG) tube placement (~2019) Family History Family History Father Lung cancer Mother No problems noted. Maternal Aunt History of heart attack Sister No problems noted. Brother Cancer of kidney Brother No problems noted. Brother No problems noted. Brother No problems noted. Brother No problems noted. Brother No problems noted. Other Substance use disorder Social History Social History Household Members: Family Housing: House Do you presently have visiting nurse or other home services: No Unable to assess alcohol history related to: Unknown Alcohol intake: current Alcohol intake frequency: 3 or more drinks per day Alcohol type: beer and hard liquor Comment: pt refuses fall risk interventions and protocol Patient Tobacco Use Status: Current everyday Tobacco user Tobacco use type: Cigarette Cigarette Packs Per Day: 0.5 Cigarettes Per Day: 10.0 Years Smoked: 40 Smoked in Last 30 Days: Yes e-Cigarette/Vaping Use: Never Used Second Hand Smoke Exposure: No Use of substances other than those prescribed or required for medical reasons: No Advance Directives: Yes Advance Directives on File: Yes Advance Directives Date on File: 06/05/20 Do you have a plan to hurt others: No Plan service: Yes Current occupational status: unemployed Cognitive needs: No Hearing needs: No Vision needs: No Physical Exam Vital Signs: Vital Signs: Last Vital Signs Temp 98.1 F 04/06/24 05:18 Pulse 99 04/06/24 05:18 Resp 23 H 04/06/24 05:18 BP 120/73 04/06/24 05:18 Pulse Ox 95 04/06/24 05:18 O2 Del Method Room Air 04/06/24 05:18 BMI result Body Mass Index 34.5 Const: Other: Appearance: Alert. Oriented X3. No acute distress. Eyes: Pupils equal, round and reactive to light. ENT: Pharynx normal. Neck: Normal inspection. Neck supple. No lymph nodes noted. No crepitus CVS: Normal heart rate and rhythm. Pulses normal. Normal S1 and S2 Respiratory: No respiratory distress. Breath sounds normal. No Wheezing. No rales Abdomen: Soft and nontender. No rigidity. No distention. Skin: Skin warm and dry. Normal skin color. Normal skin turgor. Extremities: No lower extremity edema. No Lacerations. No Rash Neuro: Oriented X 3. No motor deficit. No sensory deficit. Moving all extremities. No slurred speech. CN 2 through 12 grossly intact Psych: calm, cooperative, normal affect Medications Administered Discontinued Medications Generic Name Dose Route Start Last Admin Trade Name Marleny PRN Reason Stop Dose Admin Lorazepam 1 mg 04/06/24 05:12 04/06/24 05:20 Lorazepam 1 Mg Tablet PO 04/06/24 05:13 1 mg ONCE ONE Administration Potassium Chloride 80 meq 04/06/24 03:32 04/06/24 04:25 Potassium Chloride Packet 20 Meq Packet PO 04/06/24 03:33 80 meq ONCE ONE Administration Medical Decision Making Medical Decision Making [facility] [place] Narrative: My interpretation of EKG: Atrial fibrillation, heart rate 87, no ST segment depression or elevation, no T-wave inversion, QTC 476 -my interpretation of head CT, no obvious intracranial bleed. -patient's potassium was a bit low, repleted -potassium increased from 2.8-3.6. Troponin x2 negative. -patient clinically sober. Patient ready for discharge. Differential Diagnosis Differential Diagnoses: The differential diagnosis associated with the presentation includes (ETOH intoxication, CHF, pneumonia, contusion, concussion, intracranial bleed) Admission/Observation Consideration of admission/observation: Escalation of care including admission/observation considered (Given patient's past medical history and symptoms, observation was considered) Lab Data MDM Lab Attestation statement: I reviewed the patient's lab results. 04/05/24 23:25 04/06/24 05:01 Labs: Lab Results 04/05/24 04/06/24 04/06/24 Range/Units 23:25 02:26 05:01 WBC 12.0 H (4.8-10.8) X10*3/uL RBC 4.96 D (4.60-5.80) X10*6/uL Hgb 14.1 D (14.0-18.0) g/dl Hct 43.1 D (42.0-52.0) % MCV 86.9 (80.0-98.0) fL MCH 28.4 (27.0-33.0) pg MCHC 32.7 (31.0-36.0) g/dl RDW 16.3 H (11.0-16.0) % Plt Count 198 (160-400) X10*3/uL MPV 10.4 (9.4-12.4) fL Immature Gran % (Auto) 0.4 (0.0-0.4) % Neut % (Auto) 54.4 (45-73) % Lymph % (Auto) 30.4 (20-40) % King % (Auto) 10.8 (2-11) % Eos % (Auto) 3.2 (0-4) % Baso % (Auto) 0.8 (0-2) % Lymph # (Auto) 3.7 (1.2-4.9) X10*3/uL King # (Auto) 1.3 H (0.1-1.2) X10*3/uL Eos # (Auto) 0.4 (0.0-0.4) X10*3/uL Baso # (Auto) 0.1 (0.0-0.2) X10*3/uL Abs Immat Gran (auto) 0.05 H (0.00-0.03) X10*3/uL Absolute Neuts (auto) 6.5 (2.0-8.3) x10*3/uL Absolute Nucleated RBC 0.000 (0.0-0.012) X10*3/uL Nucleated RBC % (auto) 0.0 (0.0-0.2) /100WBC Sodium 139 (135-145) mmol/L Potassium 2.8 L* D 3.6 D (3.3-5.1) mmol/L Chloride 98 (96-108) mmol/L Carbon Dioxide 24 (22-29) mmol/L Anion Gap 20 (12-20) BUN 12 (9-16) mg/dL Creatinine 2.19 H (0.5-1.4) mg/dL Estim Creat Clear Calc 47.9 Estimated GFR 31 Random Glucose 151 H (60-115) mg/dL Calcium 8.4 D (8.4-10.2) mg/dL Troponin I High Sens 8.1 D 7.1 (<3.5-35.0) ng/L Independent Interpretation I performed an independent interpretation of an: CT Scan Radiology Impression Discussion of test interpretation with radiology: I have reviewed the radiologist's reading. Radiologist Impression: CT head: No intracranial hemorrhage, tumors or acute infarcts identified. Mild diffuse commensurate prominence of the ventricles and sulci. Focal cystic encephalomalacia unchanged within the left precentral subcortical white matter. Mild scattered subcortical and periventricular white matter patchy hypodensities. Bilateral proptosis. No intracranial soft tissue inflammatory changes. Lobulated density within the left maxillary sinus which may represent a mucosal retention cyst similar findings present on the comparison exam. CT cervical spine: No fractures or acute appearing subluxation is identified. Moderate intervertebral disc space narrowing and posterior endplate osteophytosis C4-C5 and C5-C6. No prevertebral fluid collections or soft tissue inflammatory changes. Bilateral retropharyngeal course of the internal carotid arteries. Partial visualization of centrilobular emphysema within the incidentally visualized lung apices. Findings suspicious for partial visualization of a trace right pleural effusion and possible trace left pleural effusion. Paraseptal emphysematous changes noted in the visualized lung apices. CT/CT head/brain wo IV con IMPRESSION: CT head: *No acute abnormalities. *Mild chronic microangiopathic ischemic changes. CT cervical spine: *No acute abnormalities. *Moderate multilevel chronic spondylosis. *Within the incidentally visualized lung apices findings are present suspicious for possible trace bilateral pleural effusions. Critical Care Time Critical Care Time Critical Care Time: Yes Total Critical Care Time: 60 Attestation: I have personally provided critical care time. Time includes review of lab data, radiology results, discussion with consultants, and monitoring for potential decompensation. Intervention performed as documented. Discharge Plan Discharge Clinical Impression: Atypical chest pain, Contusion of head, Acute hypokalemia Patient Disposition: Home, Self-Care Instructions: Hypokalemia (ED), Chest Pain (ED), Contusion in Adults (ED) Additional Instructions: Please follow-up with your primary care physician tomorrow. If you have any worsening or new symptoms, please return to the emergency room or call 911 Prescriptions: No Action (DME) blood-glucose meter [FreeStyle Lite Meter] Kit See Rx Instructions .ROUTE .MEDSUPPLY Qty: 1 0RF Rx Instructions: check sugar twice a day (DME) lancets [FreeStyle Lancets] 28 gauge misc See Rx Instructions .ROUTE .MEDSUPPLY Qty: 100 2RF Rx Instructions: check sugar twice a day (DME) FreeStyle David 2 [place] Misc See Rx Instructions .Route Qty: 1 0RF Rx Instructions: tid testing (DME) FreeStyle David 2 Sensor Kit See Rx Instructions .Route Qty: 1 3RF Rx Instructions: tid testing gabapentin 300 mg capsule 300 mg PO BID 30 Days Qty: 60 4RF metoprolol tartrate 50 mg tablet 50 mg PO BID Qty: 180 0RF Protocol: Hold for SBP/HR < HOLD for SBP < : 90 HOLD for HR < : 60 amlodipine 5 mg tablet 5 mg PO DAILY Qty: 90 1RF fluoxetine 40 mg capsule 40 mg PO DAILY Qty: 90 0RF multivitamin with folic acid [Daily-Carlito (with folic acid)] 400 mcg tablet 1 tab PO DAILY Qty: 90 1RF acetaminophen [Tylenol Arthritis Pain] 650 mg tablet extended release 650 mg PO Q12H PRN (Reason: pain) 30 Days Qty: 60 0RF Eliquis 5 mg tablet 5 mg PO BID Qty: 180 1RF albuterol sulfate 90 mcg/actuation HFA aerosol inhaler 2 puff inhalation QID PRN (Reason: Wheezing) Qty: 8.5 3RF metformin 850 mg tablet 850 mg PO DAILY Qty: 90 1RF rosuvastatin 5 mg tablet 5 mg PO DAILY Qty: 90 1RF folic acid 1 mg tablet 1 mg PO DAILY Qty: 90 1RF omeprazole 20 mg capsule,delayed release(DR/EC) 40 mg PO DAILY@0630 Qty: 180 1RF lisinopril 2.5 mg tablet 2.5 mg PO DAILY Qty: 90 1RF furosemide 20 mg tablet 30 mg PO DAILY Qty: 135 1RF nicotine 14 mg/24 hr Patch 24 Hour 14 mg transdermal DAILY Qty: 28 0RF naltrexone 50 mg Tablet 50 mg PO DAILY 30 Days Qty: 30 0RF thiamine mononitrate (vit B1) 100 mg Tablet 100 mg PO DAILY Qty: 30 0RF fluticasone propion-salmeterol [Advair HFA] 115-21 mcg/actuation HFA aerosol inhaler 2 puff inhalation Q12H Qty: 12 3RF Print Language: [place]
[2024-04-06 03:00] VITALS: BP 106/57; PULSE 89; RESP 18; TEMP 37.2; O2SAT 96
[2024-04-06 03:23] LABS: Troponin-I High Sensitivity 7.1 ng/L (<3.5-35.0)
--- NOTE | 2024-04-06 03:32 | PC.NURSE ---
K-2.8 made aware,will order PO K
[2024-04-06] MEDS: Potassium Chloride Packet 20 MEQ PACKET 80 MEQ PO (04:25)
--- NOTE | 2024-04-06 05:13 | PC.NURSE ---
Pt reporting feeling sob, and like he has pressure in his chest, pt encourage to do some deep breathing and calming techniques, despite vitals being stable, pt continues to feel this way. History of anxiety, made aware and verba order for PO ativan 1mg. order placed.
[2024-04-06 05:18] VITALS: BP 120/73; PULSE 99; RESP 23; TEMP 36.7; O2SAT 95
[2024-04-06 05:18] LABS: Potassium 3.6 mmol/L (3.3-5.1)
[2024-04-06] MEDS: LORazepam 1 MG TABLET PO (05:20)
--- NOTE | 2024-04-06 08:19 | PC.NURSE ---
resumed care of pt at 0700. He is currently resting comfortably. Pt able to transfer to w/ for hospital shuttle at d/c
[2024-04-06 08:21] VITALS: BP 150/76; PULSE 85; RESP 20; TEMP 37.2; O2SAT 98
== END 2024-04-06 08:21 | disposition home or self-care (01) ==
PROVIDERS: Emergency Provider Emergency Medicine
DX: R07.89 Other chest pain (principal); R06.02 Shortness of breath; R51.9 Headache, unspecified; R42 Dizziness and giddiness; E87.6 Hypokalemia; M54.2 Cervicalgia; Z79.899 Other long term (current) drug therapy
CPT/HCPCS: 36415; 70450; 72125; 80048; 84132; 84484; 85025; 93005; 99284; 99285

== ENCOUNTER → 2024-04-05 22:47 | Outpatient (BNV) | payer MEDICARE, OTHER, MEDICAID, SELFPAY | PROVIDERS: Emergency Provider Emergency Medicine; Visit Provider Internal Medicine Cardiovascular Disease | DX: R94.31 Abnormal electrocardiogram [ECG] [EKG] (principal) | CPT/HCPCS: 93010 ==

== ENCOUNTER 2024-05-10 17:55 | Inpatient (IN) | payer MEDICARE, OTHER, MEDICAID, SELFPAY ==
[2024-05-10] VITALS (23 sets, daily range): BP systolic 80–127; BP diastolic 39–91; PULSE 64–87; RESP 10–22; TEMP 35.7–36.7; O2SAT 88–100; BMI 41.5
--- NOTE | ~2024-05-10 | CT_ITS ---
EXAMINATION: CT CHEST, ABDOMEN AND PELVIS WITHOUT CONTRAST CLINICAL INFORMATION: Fall. Rib pain. Abdominal trauma. COMPARISON: Most recent CT urogram dated 09/28/2022 and chest radiograph dated 01/18/2024. CT chest dated 08/09/2021. TECHNIQUE: Contiguous axial thin section helical images of the chest, abdomen and pelvis were performed without IV contrast. The data set was reformatted in the coronal and sagittal planes and reviewed on an independent workstation. This CT examination was performed using dose optimization techniques as appropriate, variously including the following: *Automated exposure control *Adjustment of mA and/or kV according to patient size (this includes techniques or standardized protocols for targeted exams where dose is matched to indication/reason for exam; i.e. extremities or head) *Use of iterative reconstruction technique DLP: 1699 mGy-cm. FINDINGS: LUNGS: Emphysematous changes redemonstrated within the upper lobes. No focal airspace consolidation. No pulmonary nodule or mass. The central airways are patent. PLEURA: No pleural effusion or pneumothorax. No pleural mass or thickening. MEDIASTINUM: No cardiomegaly. No significant pericardial effusion. No thoracic aortic dilatation. No significant mediastinal or hilar lymphadenopathy. CORONARY ARTERY CALCIFICATION: Present. CHEST WALL/AXILLA: No lymphadenopathy. THYROID: Unremarkable LIVER, GALLBLADDER, AND BILIARY TREE: Normal size, shape, and attenuation. No focal hepatic lesion. No intra or extrahepatic biliary ductal dilatation. The gallbladder is unremarkable with no evidence of radiopaque gallstones, gallbladder wall thickening, or obvious pericholecystic inflammatory changes. PANCREAS: Unremarkable. SPLEEN: Unremarkable. ADRENAL GLANDS: Unremarkable. KIDNEYS AND URETERS: Normal size, shape, and attenuation. No hydronephrosis, hydroureter, or calculi. No perinephric stranding. BLADDER: Nondistended and unremarkable. GASTROINTESTINAL TRACT: No bowel wall thickening or inflammatory change. No small or large bowel obstruction. The appendix is unremarkable. PERITONEAL CAVITY: No intra-abdominal free air, free fluid, mass, or organized fluid collection. ABDOMINAL WALL: No significant abdominal wall hernia. LYMPH NODES: No significant lymphadenopathy. VASCULAR: No abdominal aortic dilatation. Scattered atherosclerotic calcifications. The IVC is unremarkable. PELVIC VISCERA: The prostate and seminal vesicles are unremarkable. OSSEOUS STRUCTURES: Healed left 5th rib fracture. No acute fracture. CT/CT chest wo IV con IMPRESSION: 1. No acute osseous or visceral injury. 2. Emphysematous changes redemonstrated within the upper lobes. No pulmonary nodule, mass, or airspace consolidation. 3. No intra-abdominal mass, lymphadenopathy, or ascites. Electronically signed by: Pratik Ford MD 05/10/2024 08:18 PM [facility]
--- NOTE | ~2024-05-10 | CT_ITS ---
EXAMINATION: CT HEAD WITHOUT CONTRAST CT CERVICAL SPINE WITHOUT CONTRAST CLINICAL INFORMATION: Fall on blood thinners COMPARISON: CT head 04/06/2024 TECHNIQUE: A noncontrast CT of the head and a noncontrast CT of the cervical spine with sagittal and coronal reformats. This CT examination was performed using dose optimization techniques as appropriate, variously including the following: *Automated exposure control *Adjustment of mA and/or kV according to patient size (this includes techniques or standardized protocols for targeted exams where dose is matched to indication/reason for exam; i.e. extremities or head) *Use of iterative reconstruction technique DLP: 1610 mGy*cm FINDINGS: No intra-axial or extra-axial hemorrhage. No acute territorial infarct. Ventricles and sulci appear normal. Preservation of dawn-white matter differentiation. No mass, mass effect, or midline shift. No fracture. Partial opacification of the left maxillary sinus likely a chronic retention cyst. The mastoid air cells and visualized paranasal sinuses are otherwise clear. Normal alignment of the cervical spine. No fracture. No prevertebral soft tissue swelling. Moderate degenerative disc disease at C5-C6 and C6-C7 with endplate osteophytes. Prominent degenerative change at the anterior atlantoaxial junction. Mild bilateral facet arthrosis. Carotid artery calcifications. CT/CT head/brain wo IV con IMPRESSION: 1. No acute intracranial abnormality. 2. No cervical spine fracture or traumatic subluxation. Electronically signed by: Abner Sterling MD 05/10/2024 08:01 PM [facility]
--- NOTE | ~2024-05-10 | CT_ITS ---
EXAMINATION: CT CHEST, ABDOMEN AND PELVIS WITHOUT CONTRAST CLINICAL INFORMATION: Fall. Rib pain. Abdominal trauma. COMPARISON: Most recent CT urogram dated 09/28/2022 and chest radiograph dated 01/18/2024. CT chest dated 08/09/2021. TECHNIQUE: Contiguous axial thin section helical images of the chest, abdomen and pelvis were performed without IV contrast. The data set was reformatted in the coronal and sagittal planes and reviewed on an independent workstation. This CT examination was performed using dose optimization techniques as appropriate, variously including the following: *Automated exposure control *Adjustment of mA and/or kV according to patient size (this includes techniques or standardized protocols for targeted exams where dose is matched to indication/reason for exam; i.e. extremities or head) *Use of iterative reconstruction technique DLP: 1699 mGy-cm. FINDINGS: LUNGS: Emphysematous changes redemonstrated within the upper lobes. No focal airspace consolidation. No pulmonary nodule or mass. The central airways are patent. PLEURA: No pleural effusion or pneumothorax. No pleural mass or thickening. MEDIASTINUM: No cardiomegaly. No significant pericardial effusion. No thoracic aortic dilatation. No significant mediastinal or hilar lymphadenopathy. CORONARY ARTERY CALCIFICATION: Present. CHEST WALL/AXILLA: No lymphadenopathy. THYROID: Unremarkable LIVER, GALLBLADDER, AND BILIARY TREE: Normal size, shape, and attenuation. No focal hepatic lesion. No intra or extrahepatic biliary ductal dilatation. The gallbladder is unremarkable with no evidence of radiopaque gallstones, gallbladder wall thickening, or obvious pericholecystic inflammatory changes. PANCREAS: Unremarkable. SPLEEN: Unremarkable. ADRENAL GLANDS: Unremarkable. KIDNEYS AND URETERS: Normal size, shape, and attenuation. No hydronephrosis, hydroureter, or calculi. No perinephric stranding. BLADDER: Nondistended and unremarkable. GASTROINTESTINAL TRACT: No bowel wall thickening or inflammatory change. No small or large bowel obstruction. The appendix is unremarkable. PERITONEAL CAVITY: No intra-abdominal free air, free fluid, mass, or organized fluid collection. ABDOMINAL WALL: No significant abdominal wall hernia. LYMPH NODES: No significant lymphadenopathy. VASCULAR: No abdominal aortic dilatation. Scattered atherosclerotic calcifications. The IVC is unremarkable. PELVIC VISCERA: The prostate and seminal vesicles are unremarkable. OSSEOUS STRUCTURES: Healed left 5th rib fracture. No acute fracture. CT/CT abdomen pelvis wo IV con IMPRESSION: 1. No acute osseous or visceral injury. 2. Emphysematous changes redemonstrated within the upper lobes. No pulmonary nodule, mass, or airspace consolidation. 3. No intra-abdominal mass, lymphadenopathy, or ascites. Electronically signed by: Pratik Ford MD 05/10/2024 08:18 PM [facility]
--- NOTE | ~2024-05-10 | XR_ITS ---
EXAMINATION: XR ELBOW, RIGHT CLINICAL INFORMATION: Right elbow pain and bruising. COMPARISON: Right elbow radiographs dated 09/06/2023. TECHNIQUE: AP and lateral views of the right elbow. FINDINGS: No displaced fracture. No dislocation. Moderate joint space narrowing with marginal osteophytes, slightly progressed. No concerning lytic or blastic osseous lesion. Posterior olecranon enthesophyte. No joint effusion. Soft tissue swelling overlying the olecranon, which could represent a soft tissue contusion versus olecranon bursitis. XR/XR elbow RT 2V IMPRESSION: 1. Soft tissue swelling overlying the olecranon, which could represent a soft tissue contusion versus olecranon bursitis. 2. Moderate osteoarthritis, slightly progressed. 3. No acute fracture or dislocation. Electronically signed by: Pratik Ford MD 05/12/2024 03:27 PM [facility]
--- NOTE | ~2024-05-10 | XR_ITS ---
EXAMINATION: XR HAND/WRIST, RIGHT CLINICAL INFORMATION: Pain. Bruising. COMPARISON: Right hand and wrist radiographs dated 09/06/2023. TECHNIQUE: PA, lateral, and oblique views of the right hand and wrist. FINDINGS: No acute fracture or dislocation. Normal carpal alignment. Small 1st carpometacarpal joint marginal osteophytes, unchanged. No osseous erosion. Metallic foreign body within the soft tissues, adjacent to the distal ulnar diaphysis, measuring up to 0.5 cm. XR/XR hand wrist RT IMPRESSION: 1. No acute fracture or dislocation. 2. Mild 1st carpometacarpal osteoarthritis, unchanged. 3. Metallic foreign body within the soft tissues adjacent to the distal ulnar diaphysis. Electronically signed by: Pratik Ford MD 05/12/2024 03:27 PM [facility]
--- NOTE | ~2024-05-10 | CT_ITS ---
EXAMINATION: CT HEAD WITHOUT CONTRAST CT CERVICAL SPINE WITHOUT CONTRAST CLINICAL INFORMATION: Fall on blood thinners COMPARISON: CT head 04/06/2024 TECHNIQUE: A noncontrast CT of the head and a noncontrast CT of the cervical spine with sagittal and coronal reformats. This CT examination was performed using dose optimization techniques as appropriate, variously including the following: *Automated exposure control *Adjustment of mA and/or kV according to patient size (this includes techniques or standardized protocols for targeted exams where dose is matched to indication/reason for exam; i.e. extremities or head) *Use of iterative reconstruction technique DLP: 1610 mGy*cm FINDINGS: No intra-axial or extra-axial hemorrhage. No acute territorial infarct. Ventricles and sulci appear normal. Preservation of dawn-white matter differentiation. No mass, mass effect, or midline shift. No fracture. Partial opacification of the left maxillary sinus likely a chronic retention cyst. The mastoid air cells and visualized paranasal sinuses are otherwise clear. Normal alignment of the cervical spine. No fracture. No prevertebral soft tissue swelling. Moderate degenerative disc disease at C5-C6 and C6-C7 with endplate osteophytes. Prominent degenerative change at the anterior atlantoaxial junction. Mild bilateral facet arthrosis. Carotid artery calcifications. CT/CT cervical spine wo IV con IMPRESSION: 1. No acute intracranial abnormality. 2. No cervical spine fracture or traumatic subluxation. Electronically signed by: Abner Sterling MD 05/10/2024 08:01 PM ERIK
--- NOTE | 2024-05-10 18:07 | ECG_ITS ---
Test Reason : WEAKNESS Blood Pressure : / mmHG Vent. Rate : 062 BPM Atrial Rate : 000 BPM P-R Int : 000 ms QRS Dur : 098 ms QT Int : 414 ms P-R-T Axes : 000 089 049 degrees QTc Int : 420 ms Atrial fibrillation Low voltage QRS Abnormal ECG When compared with ECG of 05-APR-2024 22:47, QT has shortened Referred By: Erica Mcadams Electronically Signed By:aEn Soares
--- NOTE | 2024-05-10 18:07 | ED_ITS ---
HPI - Alcohol General Chief Complaint: Fall Stated Complaint: ETOH, HYPOTENSIVE, HYPOXIC PER EMS Time Seen by Provider: 05/10/24 17:58 Source: patient, EMS and old records reviewed Mode of arrival: EMS Limitations: other (appears intoxicated) History of Present Illness ED Provider: MARIA ISABEL HPI narrative: 64 yo male with PMH of MJ, CHF, alcohol use disorder, pneumonia, cirrhosis, HTN, chronic resp failure, ETOH abuse with prior withdrawal seizrues, BPH, PAF on eliquis, chronic low back pain he states he has been drinking alot now is shaky and has been vomiting and weak. No GIB symptoms reported. He has been drinking daily for 10 days but no food - he drank 14 nips today. He states he has been on disability so there isn't much for him to do at home - he lives with his . He reports neck and low back pain after a fall - he has fallen multiple times recently. He denies abdominal pain MD complaint: alcohol intoxication Last drink: Hours (ago) Chronic alcohol use: Yes Previous visits for alcohol intoxication: Yes Recent trauma: Yes Associated symptoms: nausea and vomiting Treatments prior to arrival: other (EMS notes a low BP in 70s given 300cc NS and BP went up to 117 systolic) Related Data Previous Rx's ?Medication ?Instructions ?Recorded blood-glucose meter (FreeStyle #1 ea 09/03/20 Lite Meter kit) lancets 28 gauge (FreeStyle #100 ea 02/02/21 Lancets) FreeStyle David 2 [place] (flash #1 ea 07/03/22 glucose scanning reader) FreeStyle David 2 Sensor (flash #1 ea 07/03/22 glucose sensor) gabapentin 300 mg capsule 300 mg PO BID 30 days #60 caps 09/16/23 thiamine mononitrate (vit B1) 100 100 mg PO DAILY #30 tabs 11/28/23 mg tablet multivitamin with folic acid 400 1 tab PO DAILY #90 tabs 12/06/23 mcg tablet (Daily-Carlito (with folic acid)) apixaban 5 mg tablet (Eliquis) 5 mg PO BID #180 tabs 12/16/23 albuterol sulfate 90 mcg/actuation 2 puff inhalation QID PRN Wheezing 01/16/24 aerosol inhaler #8.5 grams naltrexone 50 mg tablet 50 mg PO DAILY 30 days #30 tabs 01/22/24 nicotine 14 mg/24 hr daily 14 mg transdermal DAILY #28 ea 01/22/24 transdermal patch metformin 850 mg tablet 850 mg PO DAILY #90 tabs 01/24/24 rosuvastatin 5 mg tablet 5 mg PO DAILY #90 tabs 01/27/24 fluticasone propionate 115 2 puff inhalation Q12H #12 grams 03/19/24 mcg-salmeterol 21 mcg/actuation HFA inhaler (Advair HFA) folic acid 1 mg tablet 1 mg PO DAILY #90 tabs 03/23/24 furosemide 20 mg tablet 30 mg (1.5 x 20 mg) PO DAILY #135 03/23/24 tabs lisinopril 2.5 mg tablet 2.5 mg PO DAILY #90 tabs 03/23/24 omeprazole 20 mg capsule,delayed 40 mg (2 x 20 mg) PO DAILY@0630 03/23/24 release #180 caps acetaminophen 650 mg 650 mg PO Q12H PRN pain 30 days 04/17/24 tablet,extended release (Tylenol #60 tabs Arthritis Pain) amlodipine 5 mg tablet 5 mg PO DAILY #90 tabs 04/17/24 fluoxetine 40 mg capsule 40 mg PO DAILY #90 caps 04/17/24 metoprolol tartrate 50 mg tablet 50 mg PO BID #180 tabs 04/17/24 Allergies Allergy/AdvReac Type Severity Reaction Status Date / Time No Known Allergies Allergy Verified 05/10/24 18:07 [No Known Allergies*] Review of Systems 2 Review of Systems: Constitutional : No Weight loss, No Fever, No Chills ENT/Mouth : No sore throat, No Rhinorrhea Eyes: No Swelling, No Redness Cardiovascular : No Chest Pain, No SOB, NoEdema Respiratory : No Cough, No Sputum, No Wheezing Gastrointestinal : Positive Nausea, Positive Vomiting, no Diarrhea, no abdominal Pain, No Hematochezia, No Melena Genitourinary : No Dysuria, No Urinary Frequency, No Hematuria, No Urgency Musculoskeletal : No joint pain, No Myalgias, No Joint Swelling Skin : No Skin Lesions, No rash Neuro : pos Weakness, No Numbness, No Dizziness, No Headache All other systems reviewed and are negative. [facility] Past Medical History Attestation statement: The following information was validated with the patient. Source: old records reviewed Medical History MJ (obstructive sleep apnea) CHF (congestive heart failure) Alcohol use disorder, severe, dependence CHF (congestive heart failure) Effusion, right knee Screen for STD (sexually transmitted disease) Left ankle swelling Hypomagnesemia Diarrhea Acute UTI Physical exam Nocturia Microhematuria Elevated serum creatinine Morbid obesity Increased ammonia level Weakness of both lower extremities Dermatitis, unspecified History of cardiac arrest (~05/2020) Nicotine dependence, cigarettes, uncomplicated Personal history of colonic polyps Hypoventilation associated with obesity syndrome Encephalopathy chronic CKD (chronic kidney disease) stage 3, GFR 30-59 ml/min Cirrhosis Diabetes Obesity (BMI 35.0-39.9 without comorbidity) Wernicke encephalopathy Obstructive sleep apnea (adult) (pediatric) Rib fractures CHF (congestive heart failure) Left atrial enlargement Persistent atrial fibrillation Depression Gout Arthritis Anxiety HTN (hypertension) Surgical History History of tracheostomy (~2019) History of bronchoscopy (~2019) History of colonoscopy (~2021) History of esophagogastroduodenoscopy (EGD) (~2021) History of cardioversion (~2020) S/P percutaneous endoscopic gastrostomy (PEG) tube placement (~2019) Family History Family History Father Lung cancer Mother No problems noted. Maternal Aunt History of heart attack Sister No problems noted. Brother Cancer of kidney Brother No problems noted. Brother No problems noted. Brother No problems noted. Brother No problems noted. Brother No problems noted. Other Substance use disorder Social History Social History Household Members: Family Housing: House Do you presently have visiting nurse or other home services: No Unable to assess alcohol history related to: Unknown Alcohol intake: current Alcohol intake frequency: 3 or more drinks per day Alcohol type: hard liquor Comment: pt refuses fall risk interventions and protocol Patient Tobacco Use Status: Current everyday Tobacco user Tobacco use type: Cigarette Cigarette Packs Per Day: 0.5 Cigarettes Per Day: 10.0 Years Smoked: 40 Smoked in Last 30 Days: Yes e-Cigarette/Vaping Use: Never Used Second Hand Smoke Exposure: No Use of substances other than those prescribed or required for medical reasons: No Advance Directives: Yes Advance Directives on File: Yes Advance Directives Date on File: 06/05/20 Do you have a plan to hurt others: No Plan service: Yes Current occupational status: unemployed Cognitive needs: No Hearing needs: No Vision needs: No Physical Exam ED Vital Signs: Vital Signs - 24 hr 05/10/24 18:04 05/10/24 18:36 05/10/24 19:32 Temperature 98.1 F Pulse Rate 70 64 75 Respiratory Rate 22 H 18 11 L Blood Pressure 102/58 L 85/44 L Pulse Oximetry 88 L 98 Oxygen Delivery Method Room Air Nasal Cannula Oxygen Flow Rate 05/10/24 19:45 05/10/24 19:51 05/10/24 20:09 Temperature Pulse Rate 80 76 Respiratory Rate 12 10 L Blood Pressure 91/43 L 102/39 L 123/91 H Pulse Oximetry 98 94 Oxygen Delivery Method Nasal Cannula Nasal Cannula Oxygen Flow Rate 2 2 05/10/24 20:25 05/10/24 20:44 05/10/24 20:57 Temperature Pulse Rate 69 80 81 Respiratory Rate 14 12 10 L Blood Pressure 90/48 L 113/50 L 105/55 L Pulse Oximetry 98 98 98 Oxygen Delivery Method Nasal Cannula Nasal Cannula Oxygen Flow Rate 2 2 2 05/10/24 21:04 05/10/24 21:21 05/10/24 21:34 Temperature 96.3 F L 96.3 F L Pulse Rate 75 80 79 Respiratory Rate 10 L 13 12 Blood Pressure 103/50 L 127/46 L 107/63 Pulse Oximetry 100 99 97 Oxygen Delivery Method Nasal Cannula Nasal Cannula CPAP Oxygen Flow Rate 2 2 05/10/24 21:51 05/10/24 22:00 05/10/24 22:22 Temperature 96.3 F L Pulse Rate 85 86 77 Respiratory Rate 10 L 13 12 Blood Pressure 115/61 118/85 106/65 Pulse Oximetry 95 95 94 Oxygen Delivery Method CPAP CPAP CPAP Oxygen Flow Rate 05/10/24 22:39 05/10/24 23:01 05/10/24 23:12 Temperature Pulse Rate 73 81 79 Respiratory Rate 15 14 Blood Pressure 80/50 L 85/49 L 104/83 Pulse Oximetry 90 L 90 L Oxygen Delivery Method Nasal Cannula CPAP Oxygen Flow Rate 4 5 05/10/24 23:24 05/10/24 23:31 05/10/24 23:45 Temperature 96.8 F Pulse Rate 68 67 Respiratory Rate 13 12 Blood Pressure 98/54 L 125/70 91/45 L Pulse Oximetry 91 L 96 Oxygen Delivery Method CPAP CPAP Oxygen Flow Rate 5 5 BMI result Body Mass Index 41.5 Appearance: Alert. Oriented X3. mild acute distress. shaky and tremulous has tongue fasciculations Eyes: Pupils equal, round and reactive to light. ENT: Pharynx dry MM no obvious trauma Neck: Normal inspection. Neck supple. CVS: irregular heart rate and rhythm. Pulses normal. Respiratory: No respiratory distress. Breath sounds clear at this time Abdomen: Soft and obese denies ttp Skin: Skin warm and dry. pale ashy skin color. Extremities: No lower extremity edema. hands cool to touch delayed BCR Neuro: Oriented X 3. No motor deficit. No sensory deficit. Course Course Course Narrative: patient is obese IBW is 80kg = 2400 cc bolus at this time infection suspected 749pm ceftriaxone ordered Reevaluation(s) Reevaluation #1: blood pressure decreasing despite fluids - continue fluids added on levophed Reevaluation #2: responding to fluids now levophed held 821pm Reevaluation #3: hypotensive again after 3L of IVF at this time levophed ordered (total fluids between EMS and ED 3300) will discuss with Dr. Rodriguez 1048pm Additional Reevaluation(s): Dr Rodriguez accepts UOP 120cc Medical Decision Making Medical Decision Making MDM Narrative: 64 yo male with PMH of MJ, CHF, alcohol use disorder, pneumonia, cirrhosis, HTN, chronic resp failure, ETOH abuse with prior withdrawal seizrues, BPH, PAF on eliquis, chronic low back pain here with recurrent falls, ETOH binge without food x 10 days, now n/v but no GIB symptoms reported - at this time saleem labs, CT scan of head/neck/ribs/abdomen for blunt trauma, IVF, thiamine, magnesium ordered. He looks ashy and mcdonald. He reports possible seizure at home - at this time full work up and start IVF Differential Diagnosis Differential Diagnoses: The differential diagnosis associated with the presentation includes hepatic encephalopathy, trauma, alcoholic ketoacidosis, lyte abnormality, dehydration Admission/Observation Consideration of admission/observation: Escalation of care including admission/observation considered will admit for further workup pressures held on his nighttime CPAP setting - concern for ETOH withdrawal as well Consult Healthcare Provider Management of the patient was discussed with: Guest Service Agent ICU to admit Lab Data MDM Lab Attestation statement: I reviewed the patient's lab results. 05/10/24 18:26 05/10/24 18:26 Labs: Lab Results 05/10/24 05/10/24 05/10/24 Range/Units 18:26 18:33 18:35 WBC 8.4 (4.8-10.8) X10*3/uL RBC 4.45 L (4.60-5.80) X10*6/uL Hgb 13.3 L (14.0-18.0) g/dl Hct 41.2 L (42.0-52.0) % MCV 92.6 (80.0-98.0) fL MCH 29.9 (27.0-33.0) pg MCHC 32.3 (31.0-36.0) g/dl RDW 16.0 (11.0-16.0) % Plt Count 167 (160-400) X10*3/uL MPV 10.1 (9.4-12.4) fL Immature Gran % (Auto) 0.5 H (0.0-0.4) % Neut % (Auto) 58.4 (45-73) % Lymph % (Auto) 26.7 (20-40) % [place] % (Auto) 10.2 (2-11) % Eos % (Auto) 3.3 (0-4) % Baso % (Auto) 0.9 (0-2) % Lymph # (Auto) 2.3 (1.2-4.9) X10*3/uL [place] # (Auto) 0.9 (0.1-1.2) X10*3/uL Eos # (Auto) 0.3 (0.0-0.4) X10*3/uL Baso # (Auto) 0.1 (0.0-0.2) X10*3/uL Abs Immat Gran (auto) 0.04 H (0.00-0.03) X10*3/uL Absolute Neuts (auto) 4.9 (2.0-8.3) x10*3/uL Absolute Nucleated RBC 0.000 (0.0-0.012) X10*3/uL Nucleated RBC % (auto) 0.0 (0.0-0.2) /100WBC PT 14.4 H (10.9-12.4) SEC INR 1.2 H (0.9-1.1) VBG pH 7.18 L* (7.32-7.43) VBG pCO2 66 mmHg VBG pO2 33 mmHg VBG HCO3 25 (22-26) mmol/L VBG O2 Saturation 43.0 % VBG Base Excess -4.6 mmol/L Sodium 139 (135-145) mmol/L Potassium 4.0 (3.3-5.1) mmol/L Chloride 102 (96-108) mmol/L Carbon Dioxide 24 (22-29) mmol/L Anion Gap 17 (12-20) BUN 73 H (9-16) mg/dL Creatinine 5.84 H* (0.5-1.4) mg/dL Estim Creat Clear Calc 19.2 Estimated GFR 10 Random Glucose 112 (60-115) mg/dL Lactic Acid 2.9 H* (0.5-2.0) mmol/L Lactic Acid F/U @ 2Hr (0.5-2.0) mmol/L Calcium 8.7 (8.4-10.2) mg/dL Magnesium 1.8 (1.6-2.6) mg/dL Total Bilirubin 0.4 (0.0-1.0) mg/dL Direct Bilirubin 0.2 (0.0-0.5) mg/dL AST 34 (5-37) U/L ALT 12 (0-40) U/L Alkaline Phosphatase 142 H (39-117) U/L Ammonia 38 (13-55) umol/L Total Creatine Kinase 17 L (38-174) U/L Troponin I High Sens 5.1 (<3.5-35.0) ng/L B-Natriuretic Peptide 1493 H (<100) pg/mL Total Protein 7.2 (6.5-8.0) g/dL Albumin 3.3 L (3.5-5.0) g/dL Lipase 52 (8-78) U/L Beta-Hydroxybutyrate (0.02-0.27) mmol/L Urine Color Urine Appearance Urine pH (5.0-9.0) Ur Specific Aladdin (1.005-1.025) Urine Protein (Neg-Trace) mg/dL Urine Glucose (UA) (Negative) mg/dL Urine Ketones (Negative) mg/dL Urine Blood (Negative) Urine Nitrite (Negative) Ur Leukocyte Esterase (Negative) Urine RBC (0-2) /HPF Urine WBC (0-5) /HPF Ur Squamous Epith Cells (0-2) /HPF Urine Bacteria (None Seen) Hyaline Casts (0-2) /LPF Urine Opiates Screen (Not Detect) Ur Buprenorphine Scrn (Not Detect) ng/mL Ur Oxycodone Screen (Not Detect) ng/mL Urine Methadone Screen (Not Detect) ng/mL Urine Fentanyl Screen (Not Detect) Ur Barbiturates Screen (Not Detect) Ur Phencyclidine Scrn (Not Detect) Ur Amphetamines Screen (Not Detect) U Benzodiazepines Scrn (Not Detect) Urine Cocaine Screen (Not Detect) U Marijuana (THC) Screen (Not Detect) Ethyl Alcohol 38 mg/dL Influenza Type A (PCR) NEGATIVE (Negative) Influenza Type B (PCR) NEGATIVE (Negative) RSV RNA Qual (PCR) NEGATIVE (Negative) SARS-CoV-2 RNA (RT-PCR) NEGATIVE (Negative) 05/10/24 05/10/24 05/10/24 Range/Units 20:00 20:13 20:40 WBC (4.8-10.8) X10*3/uL RBC (4.60-5.80) X10*6/uL Hgb (14.0-18.0) g/dl Hct (42.0-52.0) % MCV (80.0-98.0) fL MCH (27.0-33.0) pg MCHC (31.0-36.0) g/dl RDW (11.0-16.0) % Plt Count (160-400) X10*3/uL MPV (9.4-12.4) fL Immature Gran % (Auto) (0.0-0.4) % Neut % (Auto) (45-73) % Lymph % (Auto) (20-40) % [place] % (Auto) (2-11) % Eos % (Auto) (0-4) % Baso % (Auto) (0-2) % Lymph # (Auto) (1.2-4.9) X10*3/uL [place] # (Auto) (0.1-1.2) X10*3/uL Eos # (Auto) (0.0-0.4) X10*3/uL Baso # (Auto) (0.0-0.2) X10*3/uL Abs Immat Gran (auto) (0.00-0.03) X10*3/uL Absolute Neuts (auto) (2.0-8.3) x10*3/uL Absolute Nucleated RBC (0.0-0.012) X10*3/uL Nucleated RBC % (auto) (0.0-0.2) /100WBC PT (10.9-12.4) SEC INR (0.9-1.1) VBG pH (7.32-7.43) VBG pCO2 mmHg VBG pO2 mmHg VBG HCO3 (22-26) mmol/L VBG O2 Saturation % VBG Base Excess mmol/L Sodium (135-145) mmol/L Potassium (3.3-5.1) mmol/L Chloride (96-108) mmol/L Carbon Dioxide (22-29) mmol/L Anion Gap (12-20) BUN (9-16) mg/dL Creatinine (0.5-1.4) mg/dL Estim Creat Clear Calc Estimated GFR Random Glucose (60-115) mg/dL Lactic Acid (0.5-2.0) mmol/L Lactic Acid F/U @ 2Hr 1.8 (0.5-2.0) mmol/L Calcium (8.4-10.2) mg/dL Magnesium (1.6-2.6) mg/dL Total Bilirubin (0.0-1.0) mg/dL Direct Bilirubin (0.0-0.5) mg/dL AST (5-37) U/L ALT (0-40) U/L Alkaline Phosphatase (39-117) U/L Ammonia (13-55) umol/L Total Creatine Kinase (38-174) U/L Troponin I High Sens (<3.5-35.0) ng/L B-Natriuretic Peptide (<100) pg/mL Total Protein (6.5-8.0) g/dL Albumin (3.5-5.0) g/dL Lipase (8-78) U/L Beta-Hydroxybutyrate 0.17 (0.02-0.27) mmol/L Urine Color Dark Yellow Urine Appearance Clear Urine pH 5.0 (5.0-9.0) Ur Specific [place] 1.020 (1.005-1.025) Urine Protein 30 (1+) H (Neg-Trace) mg/dL Urine Glucose (UA) Negative (Negative) mg/dL Urine Ketones Trace (Negative) mg/dL Urine Blood Negative (Negative) Urine Nitrite Negative (Negative) Ur Leukocyte Esterase Small (1+) H (Negative) Urine RBC 0-2 (0-2) /HPF Urine WBC 0-5 (0-5) /HPF Ur Squamous Epith Cells 3-5 (0-2) /HPF Urine Bacteria None Seen (None Seen) Hyaline Casts 6-10 (0-2) /LPF Urine Opiates Screen Not Detected (Not Detect) Ur Buprenorphine Scrn Not Detected (Not Detect) ng/mL Ur Oxycodone Screen Not Detected (Not Detect) ng/mL Urine Methadone Screen Not Detected (Not Detect) ng/mL Urine Fentanyl Screen Not Detected (Not Detect) Ur Barbiturates Screen Not Detected (Not Detect) Ur Phencyclidine Scrn Not Detected (Not Detect) Ur Amphetamines Screen Not Detected (Not Detect) U Benzodiazepines Scrn Not Detected (Not Detect) Urine Cocaine Screen Not Detected (Not Detect) U Marijuana (THC) Screen Not Detected (Not Detect) Ethyl Alcohol mg/dL Influenza Type A (PCR) (Negative) Influenza Type B (PCR) (Negative) RSV RNA Qual (PCR) (Negative) SARS-CoV-2 RNA (RT-PCR) (Negative) 05/10/24 Range/Units 20:52 WBC (4.8-10.8) X10*3/uL RBC (4.60-5.80) X10*6/uL Hgb (14.0-18.0) g/dl Hct (42.0-52.0) % MCV (80.0-98.0) fL MCH (27.0-33.0) pg MCHC (31.0-36.0) g/dl RDW (11.0-16.0) % Plt Count (160-400) X10*3/uL MPV (9.4-12.4) fL Immature Gran % (Auto) (0.0-0.4) % Neut % (Auto) (45-73) % Lymph % (Auto) (20-40) % [place] % (Auto) (2-11) % Eos % (Auto) (0-4) % Baso % (Auto) (0-2) % Lymph # (Auto) (1.2-4.9) X10*3/uL [place] # (Auto) (0.1-1.2) X10*3/uL Eos # (Auto) (0.0-0.4) X10*3/uL Baso # (Auto) (0.0-0.2) X10*3/uL Abs Immat Gran (auto) (0.00-0.03) X10*3/uL Absolute Neuts (auto) (2.0-8.3) x10*3/uL Absolute Nucleated RBC (0.0-0.012) X10*3/uL Nucleated RBC % (auto) (0.0-0.2) /100WBC PT (10.9-12.4) SEC INR (0.9-1.1) VBG pH 7.26 L (7.32-7.43) VBG pCO2 44 mmHg VBG pO2 46 mmHg VBG HCO3 20 L (22-26) mmol/L VBG O2 Saturation 72.0 % VBG Base Excess -6.3 mmol/L Sodium (135-145) mmol/L Potassium (3.3-5.1) mmol/L Chloride (96-108) mmol/L Carbon Dioxide (22-29) mmol/L Anion Gap (12-20) BUN (9-16) mg/dL Creatinine (0.5-1.4) mg/dL Estim Creat Clear Calc Estimated GFR Random Glucose (60-115) mg/dL Lactic Acid (0.5-2.0) mmol/L Lactic Acid F/U @ 2Hr (0.5-2.0) mmol/L Calcium (8.4-10.2) mg/dL Magnesium (1.6-2.6) mg/dL Total Bilirubin (0.0-1.0) mg/dL Direct Bilirubin (0.0-0.5) mg/dL AST (5-37) U/L ALT (0-40) U/L Alkaline Phosphatase (39-117) U/L Ammonia (13-55) umol/L Total Creatine Kinase (38-174) U/L Troponin I High Sens (<3.5-35.0) ng/L B-Natriuretic Peptide (<100) pg/mL Total Protein (6.5-8.0) g/dL Albumin (3.5-5.0) g/dL Lipase (8-78) U/L Beta-Hydroxybutyrate (0.02-0.27) mmol/L Urine Color Urine Appearance Urine pH (5.0-9.0) Ur Specific [place] (1.005-1.025) Urine Protein (Neg-Trace) mg/dL Urine Glucose (UA) (Negative) mg/dL Urine Ketones (Negative) mg/dL Urine Blood (Negative) Urine Nitrite (Negative) Ur Leukocyte Esterase (Negative) Urine RBC (0-2) /HPF Urine WBC (0-5) /HPF Ur Squamous Epith Cells (0-2) /HPF Urine Bacteria (None Seen) Hyaline Casts (0-2) /LPF Urine Opiates Screen (Not Detect) Ur Buprenorphine Scrn (Not Detect) ng/mL Ur Oxycodone Screen (Not Detect) ng/mL Urine Methadone Screen (Not Detect) ng/mL Urine Fentanyl Screen (Not Detect) Ur Barbiturates Screen (Not Detect) Ur Phencyclidine Scrn (Not Detect) Ur Amphetamines Screen (Not Detect) U Benzodiazepines Scrn (Not Detect) Urine Cocaine Screen (Not Detect) U Marijuana (THC) Screen (Not Detect) Ethyl Alcohol mg/dL Influenza Type A (PCR) (Negative) Influenza Type B (PCR) (Negative) RSV RNA Qual (PCR) (Negative) SARS-CoV-2 RNA (RT-PCR) (Negative) Independent Interpretation I performed an independent interpretation of an: EKG and CT Scan (no trauma no infection) Interpretation: Rate: 62 Rhythm: afib Rodessa: normal Normal QRS complex. ST T wave : nonspecific ST T wave changed inf leads qTC: 420 prior studies: no acute ischemia The study has been interpreted contemporaneously by me. . Radiology Impression Discussion of test interpretation with radiology: I have reviewed the radiologist's reading. Independent Historian Clinical information obtained from an independent historian. History obtained from or confirmed by: EMS External Record Review External record reviewed: Inpatient record Medications Administered Generic Name Dose Route Start Last Admin Trade Name Freq PRN Reason Stop Dose Admin Sodium Chloride 1,000 mls @ 100 mls/hr 05/10/24 22:00 05/10/24 21:58 Ns IVCONT 100 mls/hr .Q10H JESSICA Administration Norepinephrine Bitartrate 8 mg in 250 mls @ 0 mls/hr 05/10/24 23:00 05/10/24 23:01 Levophed IVCONT 0.02 mcg/kg/min .Q0M JESSICA 5.36 mls/hr Administration Protocol Per Protocol Dexmedetomidine HCl 400 mcg in 100 mls @ 0 mls/hr 05/10/24 23:45 05/11/24 00:17 Precedex IVCONT 0.7 mcg/kg/hr .Q0M JESSICA 24.99 mls/hr Titration Protocol Per Protocol Phenobarbital Sodium 240 mg 05/10/24 23:00 05/10/24 23:28 Phenobarbital Sodium 130 Mg/Ml Vial Im Q3hx2 IM 05/11/24 02:01 240 mg Q3H JESSICA Administration Discontinued Medications Generic Name Dose Route Start Last Admin Trade Name Freq PRN Reason Stop Dose Admin Albuterol Sulfate 2.5 mg/ 5 mg 05/10/24 18:38 05/10/24 18:53 Albuterol Sulfate 2.5 mg INHALE 05/10/24 18:39 5 mg ONCE ONE Administration Ceftriaxone Sodium 1 gm 05/10/24 19:48 05/10/24 20:27 Ceftriaxone Sodium 1 Gm Vial IVPUSH 05/10/24 19:49 1 gm ONCE ONE Administration Magnesium Sulfate 2 gm in 50 mls @ 25 mls/hr 05/10/24 18:07 05/10/24 20:40 Magnesium Sulfate/H2o IV 05/10/24 20:06 Infused ONCE ONE Infusion Thiamine HCl 200 mg/ Sodium 102 mls @ 204 mls/hr 05/10/24 18:07 05/10/24 20:17 Chloride IV 05/10/24 18:36 Infused ONCE ONE Infusion Sodium Chloride 1,000 mls @ 999 mls/hr 05/10/24 18:17 05/10/24 21:52 Ns IV 05/10/24 19:17 Infused .Q1H1M ONE Infusion Sodium Chloride 1,000 mls @ 999 mls/hr 05/10/24 18:39 05/10/24 20:40 Ns IV 05/10/24 19:39 Infused .Q1H1M ONE Infusion Sodium Chloride 1,000 mls @ 999 mls/hr 05/10/24 19:46 05/10/24 21:56 Ns IV 05/10/24 20:46 Infused .Q1H1M ONE Infusion Lidocaine HCl 10 ml 05/10/24 19:58 05/10/24 20:02 Lidocaine Hcl 2 % Urojet 10 Ml Jel.Pf.Emanuel TOPICAL 05/10/24 19:59 10 ml ONCE ONE Administration Phenobarbital Sodium 320 mg 05/10/24 20:00 05/10/24 21:02 Phenobarbital Sodium 130 Mg/Ml Im Once IM 05/10/24 20:01 320 mg ONCE ONE Administration Critical Care Time Critical Care Time Critical Care Time: Yes Total Critical Care Time: 60 Attestation: 3L of IVF, review of records, repeat assessments I attest to this time spent taking care of the patient Discharge Plan Discharge Clinical Impression: Acidosis Acute renal failure Qualifiers: Acute renal failure type: unspecified Qualified Code(s): N17.9 - Acute kidney failure, unspecified Alcohol withdrawal Qualifiers: Complication of substance-induced condition: with unspecified complication Q ualified Code(s): F10.939 - Alcohol use, unspecified with withdrawal, unspecified Patient Disposition: Admitted As Inpatient
[2024-05-10] MEDS: Magnesium Sulfate/H2O 2 GM/50 ML PIGGYBACK IV (18:36)
[2024-05-10] MEDS: 0.9 % Sodium Chloride 1,000 ML 999 ML IV ×3 (18:36→20:54)
[2024-05-10 18:37] LABS: MANUAL DIFF FLAG NO
[2024-05-10 18:41] LABS: Venous Blood Gas Refer to POC result
[2024-05-10 18:42] LABS: VBG Base Excess -4.6 mmol/L; VBG HCO3 25 mmol/L (22-26); VBG pCO2 66 mmHg; VBG pH 7.18 (7.32-7.43); VBG pO2 33 mmHg
[2024-05-10 18:47] LABS: Basophils Absolute Auto 0.1 X10*3/uL (0.0-0.2); Basophils Percent Auto 0.9 % (0-2); Eosinophils Absolute Auto 0.3 X10*3/uL (0.0-0.4); Eosinophils Percent Auto 3.3 % (0-4); Hematocrit 41.2 % (42.0-52.0); Hemoglobin 13.3 g/dl (14.0-18.0); Imm Gran Abs Auto 0.04 X10*3/uL (0.00-0.03); Imm Gran Pct Auto 0.5 % (0.0-0.4); Lymphocytes Absolute Auto 2.3 X10*3/uL (1.2-4.9); Lymphocytes Percent Auto 26.7 % (20-40); Mean Corpuscular HGB Conc 32.3 g/dl (31.0-36.0); Mean Corpuscular Hemoglobin 29.9 pg (27.0-33.0); Mean Corpuscular Volume 92.6 fL (80.0-98.0); Mean Platelet Volume 10.1 fL (9.4-12.4); Monocytes Absolute Auto 0.9 X10*3/uL (0.1-1.2); Monocytes Percent Auto 10.2 % (2-11); Neutrophils Absolute Auto 4.9 x10*3/uL (2.0-8.3); Neutrophils Percent Auto 58.4 % (45-73); Platelet Count 167 X10*3/uL (160-400); Red Blood Count 4.45 X10*6/uL (4.60-5.80); White Blood Count 8.4 X10*3/uL (4.8-10.8)
[2024-05-10 18:48] LABS: INTERNATIONAL NORM RATIO 1.2 (0.9-1.1); Prothrombin Time 14.4 SEC (10.9-12.4)
[2024-05-10] MEDS: Albuterol Sulfate 2.5 MG, Albuterol Sulfate (0.083%) 2.5 MG 5 MG INHALE (18:53)
[2024-05-10 18:58] LABS: Ammonia 38 umol/L (13-55)
[2024-05-10 18:59] LABS: Ethanol 38 mg/dL
[2024-05-10 19:06] LABS: B Type Natriuretic Peptide 1493 pg/mL (<100); Troponin-I High Sensitivity 5.1 ng/L (<3.5-35.0)
[2024-05-10 19:17] LABS: Alanine Aminotransferase 12 U/L (0-40); Albumin Level 3.3 g/dL (3.5-5.0); Alkaline Phosphatase 142 U/L (39-117); Anion Gap 17 (12-20); Aspartate Amino Transferase 34 U/L (5-37); Bilirubin Direct 0.2 mg/dL (0.0-0.5); Bilirubin Total 0.4 mg/dL (0.0-1.0); Blood Urea Nitrogen 73 mg/dL (9-16); Calcium 8.7 mg/dL (8.4-10.2); Carbon Dioxide 24 mmol/L (22-29); Chloride 102 mmol/L (96-108); Creatinine Clr Calc Pharmacy 19.2; Estimated Glomerular Filt Rate 10; Glucose Random 112 mg/dL (60-115); Lactic Acid 2.9 mmol/L (0.5-2.0); Lipase 52 U/L (8-78); Magnesium 1.8 mg/dL (1.6-2.6); Sodium 139 mmol/L (135-145); Total Protein 7.2 g/dL (6.5-8.0)
[2024-05-10 19:22] LABS: Influenza A PCR NEGATIVE (Negative); Influenza B PCR NEGATIVE (Negative); Resp Syncy Virus RNA Qual PCR NEGATIVE (Negative); SARS COV2 PCR INHOUSE NEGATIVE (Negative)
[2024-05-10] MEDS: Thiamine HCL 200 MG in 0.9 % Sodium Chloride 100 ML 204 MG IV (19:28)
--- NOTE | 2024-05-10 19:43 | PC.NURSE ---
Holding Phenobarbital orders d/t hypotension
--- NOTE | 2024-05-10 19:47 | PC.NURSE ---
notified of current SBP.
[2024-05-10] MEDS: Lidocaine HCl 2 % Urojet 10 ML JEL.PF.APP TOPICAL (20:02)
[2024-05-10 20:20] LABS: Appearance Urine Clear; Color Urine Dark Yellow; Glucose Urine UA Negative (Negative); Leukocyte Esterase Urine Small (1+) (Negative); Nitrite Urine Negative (Negative); UMIC TRIGGER UACC YES; Urine Blood Negative (Negative); Urine Ketones Trace mg/dL (Negative); Urine Protein 30 (1+) mg/dL (Neg-Trace)
[2024-05-10 20:24] LABS: Beta-Hydroxybutyrate 0.17 mmol/L (0.02-0.27)
[2024-05-10] MEDS: cefTRIAXone sodium 1 GM VIAL IVPUSH (20:27)
[2024-05-10 20:31] LABS: Amphetamine Screen Urine Not Detected (Not Detect); Barbiturates, Urine Not Detected (Not Detect); Benzodiazepines Screen Urine Not Detected (Not Detect); Buprenorphine Scr Not Detected (Not Detect); Cannabinoid Screen Urine Not Detected (Not Detect); Cocaine Screen Urine Not Detected (Not Detect); Fentanyl, urine Not Detected (Not Detect); Methadone Screen, Urine Not Detected (Not Detect); Opiate Screen Urine Not Detected (Not Detect); Oxycodone Screen Urine Not Detected (Not Detect); Phencyclidine Screen Urine Not Detected (Not Detect)
[2024-05-10 20:33] LABS: Reflex Lactate? Lactic Acid Added
[2024-05-10 20:43] LABS: Bacteria Urine None Seen (None Seen); RBC Urine 0-2 /HPF (0-2); UACC Culture Trigger YES; WBC Urine 0-5 /HPF (0-5)
[2024-05-10 20:56] LABS: VBG Base Excess -6.3 mmol/L; VBG HCO3 20 mmol/L (22-26); VBG pCO2 44 mmHg; VBG pH 7.26 (7.32-7.43); VBG pO2 46 mmHg
[2024-05-10 20:56] LABS: Venous Blood Gas Refer to POC result
[2024-05-10] MEDS: PHENobarbitaL sodium 130 MG/ML IM ONCE 320 MG IM (21:02)
[2024-05-10 21:07] LABS: ~Lactic Acid-LAB USE ONLY 1.8 mmol/L (0.5-2.0)
--- NOTE | 2024-05-10 21:13 | PC.NURSE ---
This RN providing bedside assistance with primary RN d/t pt status. Currently, pt receiving 3rd L of IVF, lung sounds remain clear, pt endorsing no dyspnea, maintaining O2 saturation on 2L via NC, SBP holding stable with MAP > 65. Received initial dose of Pheno per protocol, monitoring SBP's to determine need for Norepi.
--- NOTE | 2024-05-10 21:21 | PC.NURSE ---
Called Respiratory to get home CPAP hooked up for patient as patient uses this device at home
--- NOTE | 2024-05-10 21:33 | PC.NURSE ---
Pt initiated on CPAP per home settings
[2024-05-10] MEDS: 0.9 % Sodium Chloride 1,000 ML 100 ML IVCONT (21:58)
[2024-05-10] MEDS: Norepinephrine Bitartrate/D5W 8 MG/250 ML PLAST..BAG 5.36 MG IVCONT (23:01)
[2024-05-10] MEDS: PHENobarbitaL sodium 130 MG/ML VIAL IM Q3Hx2 240 MG IM (23:28)
--- NOTE | 2024-05-10 23:46 | PM.CCHP ---
History of Present Illness Date of Service: 05/10/24 Attending physician on admission: Ander Rodriguez Chief Complaint: Fall The patient is a 61-year-old male with a past medical history of alcohol abuse,? withdrawal seizures, cirrhosis,? hypertension, congestive heart failure (EF 48%),? atrial fibrillation on Eliquis, MJ, GERD, tobacco use disorder, hyperlipidemia, type 2 diabetes mellitus, and chronic back pain who presented to the emergency department via EMS after sustaining a fall.? Patient reported he has been drinking ?a lot? for the past 10 days with no food, reports drinking 14 nips today.? He reported multiple falls without head strike in the past couple of days. He also reported possible seizure at home.?? On arrival to the emergency department patient respiratory rate 11, blood pressure 85/44, temperature 96.3 degrees.? He responded well to fluid resuscitation initially,? but later require pressor support.? ? Laboratory significant for? venous blood gas 7.18/66/33/25? later 7.26/44/46/20,? BUN 73, creatinine 5.84, lactic 2.9,? BNP 1493 Urine neg for uti? IMAGING:? ?HEAD CT/CERVICAL SPINE CT:? no acute findings ?Chest CT: No acute findings Abdominal CT: no acute finding? ED COURSE: Total of 3 L of normal saline, Patient received 2 g of Mag, thiamine 200 mg IV, albuterol 5 mg, ceftriaxone 1 g? and started on phenobarb protocol? as patient was already experiencing alcohol withdrawal symptoms ?Patient will be admitted to the ICU for management of hypotension requiring vasopressors and alcohol withdrawal syndrome Review of Systems Review of Systems: Yes all other systems are reviewed and are negative [facility] Past Medical History Medical History MJ (obstructive sleep apnea) CHF (congestive heart failure) Alcohol use disorder, severe, dependence CHF (congestive heart failure) Effusion, right knee Screen for STD (sexually transmitted disease) Left ankle swelling Hypomagnesemia Diarrhea Acute UTI Physical exam Nocturia Microhematuria Elevated serum creatinine Morbid obesity Increased ammonia level Weakness of both lower extremities Dermatitis, unspecified History of cardiac arrest (~05/2020) Nicotine dependence, cigarettes, uncomplicated Personal history of colonic polyps Hypoventilation associated with obesity syndrome Encephalopathy chronic CKD (chronic kidney disease) stage 3, GFR 30-59 ml/min Cirrhosis Diabetes Obesity (BMI 35.0-39.9 without comorbidity) Wernicke encephalopathy Obstructive sleep apnea (adult) (pediatric) Rib fractures CHF (congestive heart failure) Left atrial enlargement Persistent atrial fibrillation Depression Gout Arthritis Anxiety HTN (hypertension) Family History Family History Father Lung cancer Mother No problems noted. Maternal Aunt History of heart attack Sister No problems noted. Brother Cancer of kidney Brother No problems noted. Brother No problems noted. Brother No problems noted. Brother No problems noted. Brother No problems noted. Other Substance use disorder Surgical History Surgical History History of tracheostomy (~2019) History of bronchoscopy (~2019) History of colonoscopy (~2021) History of esophagogastroduodenoscopy (EGD) (~2021) History of cardioversion (~2020) S/P percutaneous endoscopic gastrostomy (PEG) tube placement (~2019) Social History Social History Household Members: Unknown / Unable to assess Housing: Unknown / Unable to assess Do you presently have visiting nurse or other home services: No Unable to assess alcohol history related to: Unknown Alcohol intake: current Alcohol intake frequency: 3 or more drinks per day Alcohol type: hard liquor Comment: pt refuses fall risk interventions and protocol Patient Tobacco Use Status: Tobacco use Unknown Tobacco use type: Cigarette Cigarette Packs Per Day: 0.5 Cigarettes Per Day: 10.0 Years Smoked: 40 Smoked in Last 30 Days: Yes e-Cigarette/Vaping Use: Never Used Second Hand Smoke Exposure: No Use of substances other than those prescribed or required for medical reasons: Unknown Currently Displaying Signs/Symptoms of Drug Intoxication Withdrawal: No Advance Directives: Yes Advance Directives on File: Yes Advance Directives Date on File: 06/05/20 Do you have a plan to hurt others: No Plan Recently lost weight without trying: Unsure How much weight loss: Unsure Poor oral hygiene: Yes service: Yes Current occupational status: unemployed Cognitive needs: No Hearing needs: No Vision needs: No Meds Allergies Allergy/AdvReac Type Severity Reaction Status Date / Time No Known Allergies Allergy Verified 05/10/24 18:07 [No Known Allergies*] Active Medications: Current Medications Sodium Chloride (Ns) 1,000 mls @ 100 mls/hr IVCONT .Q10H [facility] Last Admin: 05/10/24 21:58 Dose: 100 mls/hr Norepinephrine Bitartrate (Levophed) 8 mg in 250 mls @ 0 mls/hr IVCONT .Q0M JESSICA; Protocol Last Admin: 05/10/24 23:01 Dose: 0.02 mcg/kg/min, 5.36 mls/hr Pharmacy Consult (Consult Rx Etoh Phenob Im/Po) 1 each MISCELLANE ONCE PRN; Protocol PRN Reason: Consult order Phenobarbital (Phenobarbital 30 Mg Tablet) 60 mg PO BID [facility] Stop: 05/12/24 21:01 Phenobarbital (Phenobarbital 30 Mg Tablet) 30 mg PO BID [facility] Stop: 05/14/24 21:01 Phenobarbital (Phenobarbital 30 Mg Tablet) 30 mg PO DAILY [facility] Stop: 05/16/24 09:01 Phenobarbital Sodium (Phenobarbital Sodium 130 Mg/Ml Vial Im Q3hx2) 240 mg IM Q3H JESSICA Stop: 05/11/24 02:01 Last Admin: 05/10/24 23:28 Dose: 240 mg Physical Exam Vital Signs: Vital Signs: Last Vital Signs Temp 96.8 F 05/10/24 23:24 Pulse 67 05/10/24 23:31 Resp 12 05/10/24 23:31 BP 91/45 L 05/10/24 23:45 Pulse Ox 96 05/10/24 23:31 O2 Del Method CPAP 05/10/24 23:31 O2 Flow Rate 5 05/10/24 23:31 BMI result Body Mass Index 41.5 ?General:? Alert oriented x3, with periods of confusion, anxious Following all commands. ?HEENT:? Head is normocephalic, atraumatic, pupils equal round reactive to light accommodation bilaterally.? Extraocular movements appear intact.? Buccal mucosa is dry, Neck is supple ?Cardiac:? Clear S1-S2, no murmurs rubs or gallops. ?Pulmonary:?Lungs diminished at bases ?Abdomen:? ?Abdomen soft, non-tender, non-distended. Normal bowel sounds. No pulsatile mass. No hepatosplenomegaly. ?Musculoskeletal:? Moving all 4 extremities upon request a major joints, there is no crepitus or tenderness.? The strength is 5/5 bilaterally and throughout all 4 extremities.? Gait not assessed at this point. ?Neurologic:Patient with tremors, anxious. No other focal deficits noted.Motor strength as above.?? ?Skin:? Ashen color, no lesions, ? No ulcers. Vascular:? 2+ pulses upper and lower extremities distally.?BLE 2+ Edema Results Labs 05/11/24 04:51 05/11/24 04:51 Labs: Laboratory Results - last 24 hr 05/10/24 05/10/24 05/10/24 18:26 18:33 18:35 MCV 92.6 MCH 29.9 MCHC 32.3 RDW 16.0 Plt Count 167 MPV 10.1 Immature Gran % (Auto) 0.5 H Neut % (Auto) 58.4 Lymph % (Auto) 26.7 Harlan % (Auto) 10.2 Eos % (Auto) 3.3 Baso % (Auto) 0.9 Lymph # (Auto) 2.3 Harlan # (Auto) 0.9 Eos # (Auto) 0.3 Baso # (Auto) 0.1 Abs Immat Gran (auto) 0.04 H Absolute Neuts (auto) 4.9 Absolute Nucleated RBC 0.000 Nucleated RBC % (auto) 0.0 PT 14.4 H INR 1.2 H VBG pH 7.18 L* VBG pCO2 66 VBG pO2 33 VBG HCO3 25 VBG O2 Saturation 43.0 VBG Base Excess -4.6 Anion Gap 17 Estim Creat Clear Calc 19.2 Estimated GFR 10 Random Glucose 112 Lactic Acid 2.9 H* Lactic Acid F/U @ 2Hr Calcium 8.7 Magnesium 1.8 Total Bilirubin 0.4 Direct Bilirubin 0.2 AST 34 ALT 12 Alkaline Phosphatase 142 H Ammonia 38 Total Creatine Kinase 17 L Troponin I High Sens 5.1 B-Natriuretic Peptide 1493 H Total Protein 7.2 Albumin 3.3 L Lipase 52 Beta-Hydroxybutyrate Urine Color Urine Appearance Urine pH Ur Specific Epping Urine Protein Urine Glucose (UA) Urine Ketones Urine Blood Urine Nitrite Ur Leukocyte Esterase Urine RBC Urine WBC Ur Squamous Epith Cells Urine Bacteria Hyaline Casts Urine Opiates Screen Ur Buprenorphine Scrn Ur Oxycodone Screen Urine Methadone Screen Urine Fentanyl Screen Ur Barbiturates Screen Ur Phencyclidine Scrn Ur Amphetamines Screen U Benzodiazepines Scrn Urine Cocaine Screen U Marijuana (THC) Screen Ethyl Alcohol 38 Influenza Type A (PCR) NEGATIVE Influenza Type B (PCR) NEGATIVE RSV RNA Qual (PCR) NEGATIVE SARS-CoV-2 RNA (RT-PCR) NEGATIVE 05/10/24 05/10/24 05/10/24 20:00 20:13 20:40 MCV MCH MCHC RDW Plt Count MPV Immature Gran % (Auto) Neut % (Auto) Lymph % (Auto) Harlan % (Auto) Eos % (Auto) Baso % (Auto) Lymph # (Auto) Harlan # (Auto) Eos # (Auto) Baso # (Auto) Abs Immat Gran (auto) Absolute Neuts (auto) Absolute Nucleated RBC Nucleated RBC % (auto) PT INR VBG pH VBG pCO2 VBG pO2 VBG HCO3 VBG O2 Saturation VBG Base Excess Anion Gap Estim Creat Clear Calc Estimated GFR Random Glucose Lactic Acid Lactic Acid F/U @ 2Hr 1.8 Calcium Magnesium Total Bilirubin Direct Bilirubin AST ALT Alkaline Phosphatase Ammonia Total Creatine Kinase Troponin I High Sens B-Natriuretic Peptide Total Protein Albumin Lipase Beta-Hydroxybutyrate 0.17 Urine Color Dark Yellow Urine Appearance Clear Urine pH 5.0 Ur Specific Epping 1.020 Urine Protein 30 (1+) H Urine Glucose (UA) Negative Urine Ketones Trace Urine Blood Negative Urine Nitrite Negative Ur Leukocyte Esterase Small (1+) H Urine RBC 0-2 Urine WBC 0-5 Ur Squamous Epith Cells 3-5 Urine Bacteria None Seen Hyaline Casts 6-10 Urine Opiates Screen Not Detected Ur Buprenorphine Scrn Not Detected Ur Oxycodone Screen Not Detected Urine Methadone Screen Not Detected Urine Fentanyl Screen Not Detected Ur Barbiturates Screen Not Detected Ur Phencyclidine Scrn Not Detected Ur Amphetamines Screen Not Detected U Benzodiazepines Scrn Not Detected Urine Cocaine Screen Not Detected U Marijuana (THC) Screen Not Detected Ethyl Alcohol Influenza Type A (PCR) Influenza Type B (PCR) RSV RNA Qual (PCR) SARS-CoV-2 RNA (RT-PCR) 05/10/24 20:52 MCV MCH MCHC RDW Plt Count MPV Immature Gran % (Auto) Neut % (Auto) Lymph % (Auto) Harlan % (Auto) Eos % (Auto) Baso % (Auto) Lymph # (Auto) Harlan # (Auto) Eos # (Auto) Baso # (Auto) Abs Immat Gran (auto) Absolute Neuts (auto) Absolute Nucleated RBC Nucleated RBC % (auto) PT INR VBG pH 7.26 L VBG pCO2 44 VBG pO2 46 VBG HCO3 20 L VBG O2 Saturation 72.0 VBG Base Excess -6.3 Anion Gap Estim Creat Clear Calc Estimated GFR Random Glucose Lactic Acid Lactic Acid F/U @ 2Hr Calcium Magnesium Total Bilirubin Direct Bilirubin AST ALT Alkaline Phosphatase Ammonia Total Creatine Kinase Troponin I High Sens B-Natriuretic Peptide Total Protein Albumin Lipase Beta-Hydroxybutyrate Urine Color Urine Appearance Urine pH Ur Specific [place] Urine Protein Urine Glucose (UA) Urine Ketones Urine Blood Urine Nitrite Ur Leukocyte Esterase Urine RBC Urine WBC Ur Squamous Epith Cells Urine Bacteria Hyaline Casts Urine Opiates Screen Ur Buprenorphine Scrn Ur Oxycodone Screen Urine Methadone Screen Urine Fentanyl Screen Ur Barbiturates Screen Ur Phencyclidine Scrn Ur Amphetamines Screen U Benzodiazepines Scrn Urine Cocaine Screen U Marijuana (THC) Screen Ethyl Alcohol Influenza Type A (PCR) Influenza Type B (PCR) RSV RNA Qual (PCR) SARS-CoV-2 RNA (RT-PCR) Imaging Radiologist's Impressions: Impressions Chest CT 05/10/24 18:07 IMPRESSION: 1. No acute osseous or visceral injury. 2. Emphysematous changes redemonstrated within the upper lobes. No pulmonary nodule, mass, or airspace consolidation. 3. No intra-abdominal mass, lymphadenopathy, or ascites. Electronically signed by: Pratik Ford MD 05/10/2024 08:18 PM EST RP Head CT 05/10/24 18:08 IMPRESSION: 1. No acute intracranial abnormality. 2. No cervical spine fracture or traumatic subluxation. Electronically signed by: Abner Sterling MD 05/10/2024 08:01 PM EST RP Cervical Spine CT 05/10/24 18:40 IMPRESSION: 1. No acute intracranial abnormality. 2. No cervical spine fracture or traumatic subluxation. Electronically signed by: Abner Sterling MD 05/10/2024 08:01 PM EST RP Abdomen/Pelvis CT 05/10/24 18:45 IMPRESSION: 1. No acute osseous or visceral injury. 2. Emphysematous changes redemonstrated within the upper lobes. No pulmonary nodule, mass, or airspace consolidation. 3. No intra-abdominal mass, lymphadenopathy, or ascites. Electronically signed by: Pratik Ford MD 05/10/2024 08:18 PM [facility] Assessment and Plan (1) Hypotension: Status: Acute (2) Alcohol withdrawal: Qualifiers: Complication of substance-induced condition: with unspecified complication Qualified Code(s): F10.939 - Alcohol use, unspecified with withdrawal, unspecified Status: Acute (3) Acute renal failure: Qualifiers: Acute renal failure type: unspecified Qualified Code(s): N17.9 - Acute kidney failure, unspecified Status: Acute (4) Alcohol use disorder, severe, dependence: Status: Acute (5) Elevated lactic acid level: Status: Acute Plan 61-year-old male with a past medical history of alcohol abuse,? withdrawal seizures, cirrhosis,? hypertension, congestive heart failure (EF 48%),? atrial fibrillation on Eliquis, MJ, GERD, tobacco use disorder, hyperlipidemia, type 2 diabetes mellitus, and chronic back pain admitted to the ICU for management of hypotension requiring vasopressors and alcohol withdrawal syndrome ? Neuro: Alcohol withdrawal syndrome: ? with history of withdrawal seizures, patient reports his last drink was earlier today, ? he also was not sure if he had a seizure earlier today.? He was started on phenobarb protocol in the emergency department,? assessment patient? still experiencing significant withdrawal symptoms,? we will initiate Precedex drip.? Seizure precautions.? Cardiac:? ?Hypotension:? there is no evidence of severe sepsis,? patient has no white count,? patient does admit to not having any food and only alcohol for the past 10 days,? could be a degree of dehydration vs alcohol ketosis? Received appropriate fluid resuscitation with crystalloids,? will add albumin.? Wean off pressors as tolerated.? Elevated lactic:? no evidence of severe sepsis this is likely due to dehydration Pulmonary:? No acute issues Renal: ?MERLIN-? nonoliguric,? likely from dehydration /alcohol use.? Received 3 L in the ED.? continue to trend renal indices Endo:? No acute issues.? GI:? Elevated LFTs: due to alcohol hepatitis. Cont monitor lfts Heme/Onc:?No acute issues ID: ? no acute issues Psych:?ETOH use: will ad thiamine and folic acid. cont phenobarb and Precedex Prophylaxis:? continue home Eliquis ?Critical care time:? X 60 minutes of critical care time ?Code? status:? FULL CODE?
[2024-05-10] MEDS: dexmedeTOMIDidine HCL/NS 400 MCG/100 ML INFUS..BTL 17.85 MCG IVCONT (23:56)
[2024-05-11] VITALS (45 sets, daily range): BP systolic 66–129; BP diastolic 44–77; PULSE 52–98; RESP 10–27; TEMP 35.5–37.7; O2SAT 84–97; BMI 42.0
[2024-05-11] MEDS: vancomycin/NS 2,000 MG/500 ML PLAST..BAG 250 MG IV (00:31)
--- NOTE | 2024-05-11 00:38 | PC.NURSE ---
Report given to ICU nurse, patient transferred on equipment monitor phototypesetting to ICU
[2024-05-11] MEDS: PHENobarbitaL sodium 130 MG/ML VIAL IM Q3Hx2 240 MG IM (01:21)
[2024-05-11] MEDS: Albumin Human 25 % 100 ML IV ×2 (01:25→02:06)
[2024-05-11] MEDS: dexmedeTOMIDidine HCL/NS 400 MCG/100 ML INFUS..BTL 17.85 MCG IVCONT (03:29)
[2024-05-11 04:55] LABS: VBG Base Excess -7.2 mmol/L; VBG HCO3 20 mmol/L (22-26); VBG pCO2 51 mmHg; VBG pH 7.21 (7.32-7.43); VBG pO2 64 mmHg
[2024-05-11 04:57] LABS: Venous Blood Gas Refer to POC result
[2024-05-11 05:08] LABS: MANUAL DIFF FLAG NO
[2024-05-11 05:10] LABS: Basophils Absolute Auto 0.1 X10*3/uL (0.0-0.2); Eosinophils Absolute Auto 0.2 X10*3/uL (0.0-0.4); Eosinophils Percent Auto 2.2 % (0-4); Hematocrit 37.1 % (42.0-52.0); Hemoglobin 11.7 g/dl (14.0-18.0); Imm Gran Abs Auto 0.04 X10*3/uL (0.00-0.03); Imm Gran Pct Auto 0.4 % (0.0-0.4); Lymphocytes Absolute Auto 1.7 X10*3/uL (1.2-4.9); Lymphocytes Percent Auto 19.1 % (20-40); Mean Corpuscular HGB Conc 31.5 g/dl (31.0-36.0); Mean Corpuscular Hemoglobin 29.2 pg (27.0-33.0); Mean Corpuscular Volume 92.5 fL (80.0-98.0); Mean Platelet Volume 10.6 fL (9.4-12.4); Monocytes Absolute Auto 0.8 X10*3/uL (0.1-1.2); Monocytes Percent Auto 9.3 % (2-11); Platelet Count 157 X10*3/uL (160-400); Red Blood Count 4.01 X10*6/uL (4.60-5.80); White Blood Count 8.9 X10*3/uL (4.8-10.8)
[2024-05-11 05:17] LABS: Ammonia 60 umol/L (13-55)
[2024-05-11 05:19] LABS: INTERNATIONAL NORM RATIO 1.3 (0.9-1.1); Prothrombin Time 14.7 SEC (10.9-12.4)
[2024-05-11 05:32] LABS: B Type Natriuretic Peptide 1072 pg/mL (<100)
[2024-05-11 05:41] LABS: Alanine Aminotransferase 11 U/L (0-40); Albumin Level 3.5 g/dL (3.5-5.0); Alkaline Phosphatase 115 U/L (39-117); Anion Gap 17 (12-20); Aspartate Amino Transferase 32 U/L (5-37); Bilirubin Total 0.4 mg/dL (0.0-1.0); Blood Urea Nitrogen 65 mg/dL (9-16); Calcium 8.3 mg/dL (8.4-10.2); Carbon Dioxide 16 mmol/L (22-29); Chloride 108 mmol/L (96-108); Creatinine Clr Calc Pharmacy 27.3; Estimated Glomerular Filt Rate 15; Glucose Random 197 mg/dL (60-115); Phosphorus 4.9 mg/dL (2.7-4.5); Potassium 4.1 mmol/L (3.3-5.1); Sodium 137 mmol/L (135-145); Total Protein 6.9 g/dL (6.5-8.0)
[2024-05-11] MEDS: Dextrose 5 % and Lactated Ring 1,000 ML 125 ML IVCONT (05:57)
[2024-05-11 06:06] LABS: Free T4 (Free Thyroxine) 0.76 ng/dL (0.71-1.85); Thyroid Stimulating Hormone 0.97 uIU/mL (0.32-4.0)
--- NOTE | 2024-05-11 10:34 | PHA.MEDREC ---
Addendum entered by Myra Fuller RPh 05/11/24 11:16: Reviewed by [facility] Original Note: Pharmacy Consult ? Medication Reconciliation Pharmacy has completed the medication reconciliation. Spoke to patients Olga to confirm med list. states patient is no longer taking Advair 115 mcg/21 mcg HFA, Gabapentin 300 mg, Naltrexone 50 mg, Nicotine 14 mg , and Vitamin B1. states patent last took his medication 05/11/24 However she did state patient doesn't always take his medication everyday like he should.
--- NOTE | 2024-05-11 10:34 | PM.CCPN ---
Subjective Subjective Date of Service: 05/11/24 Interval History: 61-year-old gentleman with underlying history of obesity, alcoholic cirrhosis with prior alcohol withdrawal seizures, systolic heart failure, AFib on Eliquis, MJ, CKD, diabetes mellitus, prior tracheostomy/gastrostomy with reversal admitted on 05/10/2024 with alcohol withdrawal, acute on chronic kidney injury, and hepatic encephalopathy, further complicated by distributive shock requiring pressor support and acute hypoxic respiratory failure requiring CPAP support. Started on empiric antibiotics. No events overnight. Renal function is slowly when. Remains significantly encephalopathic. Critical Care Time (minutes): 60 Physical Exam Vital Signs: Vital Signs: Last Vital Signs Temp 98.2 F 05/11/24 10:00 Pulse 57 05/11/24 10:00 Resp 18 05/11/24 10:00 BP 114/63 05/11/24 10:00 Pulse Ox 89 L 05/11/24 10:00 O2 Del Method CPAP 05/11/24 10:00 O2 Flow Rate 3 05/11/24 07:00 FiO2 30 05/11/24 10:00 BMI result Body Mass Index 42.0 Const: General: no acute distress and lethargic (Poorly arousable) Nutritional Appearance: obese Orientation/consciousness: lethargic (Poorly arousable) Eyes: Sclerae: sclerae normal EOM: EOMs intact bilaterally Neck: Neck: Yes no lymphadenopathy, Yes trachea midline and Yes supple Resp: Effort & Inspection: normal respiratory effort and no respiratory distress Auscultation: crackles (Mild bilateral) Cardio: Rate: regular rate Rhythm: regular rhythm Heart sounds: no gallops, no murmurs and no rubs GI: Palpation (GI): Soft to palpation and Other GI palpation findings present ( Nontender) Auscultation: normal bowel sounds Extrem: General: No clubbing, No cyanosis and Yes edema (1+ bilateral) Objective Data Labs 05/11/24 04:51 05/11/24 04:51 Labs: Laboratory Results - last 24 hr 05/10/24 05/10/24 05/10/24 18:26 18:33 18:35 WBC 8.4 RBC 4.45 L Hgb 13.3 L Hct 41.2 L MCV 92.6 MCH 29.9 MCHC 32.3 RDW 16.0 Plt Count 167 MPV 10.1 Immature Gran % (Auto) 0.5 H Neut % (Auto) 58.4 Lymph % (Auto) 26.7 [place] % (Auto) 10.2 Eos % (Auto) 3.3 Baso % (Auto) 0.9 Lymph # (Auto) 2.3 [place] # (Auto) 0.9 Eos # (Auto) 0.3 Baso # (Auto) 0.1 Abs Immat Gran (auto) 0.04 H Absolute Neuts (auto) 4.9 Absolute Nucleated RBC 0.000 Nucleated RBC % (auto) 0.0 PT 14.4 H INR 1.2 H VBG pH 7.18 L* VBG pCO2 66 VBG pO2 33 VBG HCO3 25 VBG O2 Saturation 43.0 VBG Base Excess -4.6 Sodium 139 Potassium 4.0 Chloride 102 Carbon Dioxide 24 Anion Gap 17 BUN 73 H Creatinine 5.84 H* Estim Creat Clear Calc 19.2 Estimated GFR 10 Random Glucose 112 Lactic Acid 2.9 H* Lactic Acid F/U @ 2Hr Calcium 8.7 Phosphorus Magnesium 1.8 Total Bilirubin 0.4 Direct Bilirubin 0.2 AST 34 ALT 12 Alkaline Phosphatase 142 H Ammonia 38 Total Creatine Kinase 17 L Troponin I High Sens 5.1 B-Natriuretic Peptide 1493 H Total Protein 7.2 Albumin 3.3 L Lipase 52 Beta-Hydroxybutyrate TSH Free T4 Urine Color Urine Appearance Urine pH Ur Specific [place] Urine Protein Urine Glucose (UA) Urine Ketones Urine Blood Urine Nitrite Ur Leukocyte Esterase Urine RBC Urine WBC Ur Squamous Epith Cells Urine Bacteria Hyaline Casts Urine Opiates Screen Ur Buprenorphine Scrn Ur Oxycodone Screen Urine Methadone Screen Urine Fentanyl Screen Ur Barbiturates Screen Ur Phencyclidine Scrn Ur Amphetamines Screen U Benzodiazepines Scrn Urine Cocaine Screen U Marijuana (THC) Screen Ethyl Alcohol 38 Influenza Type A (PCR) NEGATIVE Influenza Type B (PCR) NEGATIVE RSV RNA Qual (PCR) NEGATIVE SARS-CoV-2 RNA (RT-PCR) NEGATIVE 05/10/24 05/10/24 05/10/24 20:00 20:13 20:40 WBC RBC Hgb Hct MCV MCH MCHC RDW Plt Count MPV Immature Gran % (Auto) Neut % (Auto) Lymph % (Auto) [place] % (Auto) Eos % (Auto) Baso % (Auto) Lymph # (Auto) [place] # (Auto) Eos # (Auto) Baso # (Auto) Abs Immat Gran (auto) Absolute Neuts (auto) Absolute Nucleated RBC Nucleated RBC % (auto) PT INR VBG pH VBG pCO2 VBG pO2 VBG HCO3 VBG O2 Saturation VBG Base Excess Sodium Potassium Chloride Carbon Dioxide Anion Gap BUN Creatinine Estim Creat Clear Calc Estimated GFR Random Glucose Lactic Acid Lactic Acid F/U @ 2Hr 1.8 Calcium Phosphorus Magnesium Total Bilirubin Direct Bilirubin AST ALT Alkaline Phosphatase Ammonia Total Creatine Kinase Troponin I High Sens B-Natriuretic Peptide Total Protein Albumin Lipase Beta-Hydroxybutyrate 0.17 TSH Free T4 Urine Color Dark Yellow Urine Appearance Clear Urine pH 5.0 Ur Specific [place] 1.020 Urine Protein 30 (1+) H Urine Glucose (UA) Negative Urine Ketones Trace Urine Blood Negative Urine Nitrite Negative Ur Leukocyte Esterase Small (1+) H Urine RBC 0-2 Urine WBC 0-5 Ur Squamous Epith Cells 3-5 Urine Bacteria None Seen Hyaline Casts 6-10 Urine Opiates Screen Not Detected Ur Buprenorphine Scrn Not Detected Ur Oxycodone Screen Not Detected Urine Methadone Screen Not Detected Urine Fentanyl Screen Not Detected Ur Barbiturates Screen Not Detected Ur Phencyclidine Scrn Not Detected Ur Amphetamines Screen Not Detected U Benzodiazepines Scrn Not Detected Urine Cocaine Screen Not Detected U Marijuana (THC) Screen Not Detected Ethyl Alcohol Influenza Type A (PCR) Influenza Type B (PCR) RSV RNA Qual (PCR) SARS-CoV-2 RNA (RT-PCR) 05/10/24 05/11/24 05/11/24 20:52 04:43 04:51 WBC 8.9 RBC 4.01 L Hgb 11.7 L Hct 37.1 L MCV 92.5 MCH 29.2 MCHC 31.5 RDW 16.0 Plt Count 157 L MPV 10.6 Immature Gran % (Auto) 0.4 Neut % (Auto) 68.0 Lymph % (Auto) 19.1 L [place] % (Auto) 9.3 Eos % (Auto) 2.2 Baso % (Auto) 1.0 Lymph # (Auto) 1.7 [place] # (Auto) 0.8 Eos # (Auto) 0.2 Baso # (Auto) 0.1 Abs Immat Gran (auto) 0.04 H Absolute Neuts (auto) 6.0 Absolute Nucleated RBC 0.000 Nucleated RBC % (auto) 0.0 PT 14.7 H INR 1.3 H VBG pH 7.26 L 7.21 L VBG pCO2 44 51 VBG pO2 46 64 VBG HCO3 20 L 20 L VBG O2 Saturation 72.0 90.0 VBG Base Excess -6.3 -7.2 Sodium 137 Potassium 4.1 Chloride 108 Carbon Dioxide 16 L Anion Gap 17 BUN 65 H Creatinine 4.14 H* Estim Creat Clear Calc 27.3 Estimated GFR 15 Random Glucose 197 H Lactic Acid Lactic Acid F/U @ 2Hr Calcium 8.3 L Phosphorus 4.9 H Magnesium 2.0 Total Bilirubin 0.4 Direct Bilirubin AST 32 ALT 11 Alkaline Phosphatase 115 Ammonia 60 H Total Creatine Kinase Troponin I High Sens B-Natriuretic Peptide 1072 H Total Protein 6.9 Albumin 3.5 Lipase Beta-Hydroxybutyrate TSH 0.97 Free T4 0.76 Urine Color Urine Appearance Urine pH Ur Specific [place] Urine Protein Urine Glucose (UA) Urine Ketones Urine Blood Urine Nitrite Ur Leukocyte Esterase Urine RBC Urine WBC Ur Squamous Epith Cells Urine Bacteria Hyaline Casts Urine Opiates Screen Ur Buprenorphine Scrn Ur Oxycodone Screen Urine Methadone Screen Urine Fentanyl Screen Ur Barbiturates Screen Ur Phencyclidine Scrn Ur Amphetamines Screen U Benzodiazepines Scrn Urine Cocaine Screen U Marijuana (THC) Screen Ethyl Alcohol Influenza Type A (PCR) Influenza Type B (PCR) RSV RNA Qual (PCR) SARS-CoV-2 RNA (RT-PCR) Microbiology Microbiology Results: Microbiology 05/10/24 Unknown Urine Catheterized - Powers Catheter Urine Culture - Preliminary No growth to date. Progress Note: A&P Assessment and plan (1) Alcohol withdrawal: Status: Acute (2) CHF exacerbation: Status: Acute (3) Cirrhosis: Status: Acute (4) Acute renal failure: Status: Acute (5) Hepatic encephalopathy: Status: Acute (6) Hypoxic respiratory failure: Status: Acute Plan Assessment: 64-year-old gentleman admitted with alcohol withdrawal further complicated acute on kidney injury, distributive shock, and acute hypoxic respiratory failure requiring noninvasive positive pressure ventilatory support Plan: Neuro: Hepatic encephalopathy, start lactulose. Alcohol withdrawal, continue phenobarbital protocol. Cardiac: Distributive shock, continue to titrate off pressor support as tolerated. Acute congestive heart failure improving. Underlying AFib on Eliquis. Pulmonary: Acute hypoxic respiratory failure, improving. Continue to titrate off CPAP support as tolerated. Renal: Acute on chronic kidney injury, improving. Non oliguric. Continue to monitor renal indices and urine output. Endo: No acute issues. GI: No acute issues. Underlying alcoholic cirrhosis. ID: Empiric coverage, cultures are pending. Heme/Onc: No acute issues. Psych: No acute issues. Miscellaneous: No acute issues. Prophylaxis: Eliquis Diet: NPO Critical care time spent: 60 minutes Quality Stroke Does the patient have a stroke diagnosis?: No VTE Prior VTE?: No VTE Risk Level:: Medical - moderate - high VTE Device Contraindication: N/A - Device Ordered VTE Drug Contraindication: N/A - Med Ordered
[2024-05-11 10:47] LABS: Glucose, Whole Blood 173 mg/dL (60-115)
[2024-05-11] MEDS: Lactulose 320 GM/480 ML SOLUTION 200 GM PR ×2 (11:16→15:58)
[2024-05-11] MEDS: Insulin Lispro 100 UNIT/ML 3 ML VIAL SUBCUT ×2 (11:16→23:52)
--- NOTE | 2024-05-11 12:32 | MHC.CLN ---
NUTRITION CURRENTLY NPO. VERY POOR PO INTAKE PRIOR TO ADM DUE TO REPORTED EXCESS ETOH INTAKE. FOLLOW WITH TEAM FOR DIET ADVANCEMENT. SEE CLINICAL NUTRITION ASSESSMENT 05/11/24.
--- NOTE | 2024-05-11 14:03 | MHC.CM.PN ---
Pt lethargic, on NIPPV and unable to participate in CM assessment: Call placed to pt's spouse/HCP Olga who states pt resides w/her and a special needs child. He has no current services and uses a walker, w/c and CPAP. Olga would like pt to be seen by CARE team for ETOH use once medically stable. Pt will need transportation to home. IMM in chart/explained to Olga: HCP on file and verified. PCP Everette Deluca CM to follow for finalization of d/c plans.
--- NOTE | 2024-05-11 15:21 | PC.RT ---
Pt awake, asking to come off cpap. Transitioned to 2 lpm etco2 n/c. Nurse aware, pt betty well.
[2024-05-11] MEDS: fentaNYL citrate/PF 100 MCG/2 ML VIAL 25 MCG IVPUSH (16:47)
[2024-05-11] MEDS: Norepinephrine Bitartrate/D5W 8 MG/250 ML PLAST..BAG 8.03 MG IVCONT (17:33)
[2024-05-11 18:15] LABS: Glucose, Whole Blood 122 mg/dL (60-115)
[2024-05-11] MEDS: cefTRIAXone sodium 1 GM VIAL IVPUSH (18:47)
[2024-05-11] MEDS: Apixaban 5 MG TABLET PO (20:03)
[2024-05-11] MEDS: PHENobarbitaL 30 MG TABLET 60 MG PO (20:03)
[2024-05-11] MEDS: Thiamine HCL 100 MG TABLET PO (20:03)
[2024-05-11 20:34] LABS: VBG Base Excess -3.5 mmol/L; VBG HCO3 21 mmol/L (22-26); VBG pCO2 40 mmHg; VBG pH 7.33 (7.32-7.43); VBG pO2 50 mmHg
[2024-05-11 21:11] LABS: Vancomycin Random 16.1 mcg/mL (15-20)
[2024-05-11 21:16] LABS: Anion Gap 11 (12-20); Blood Urea Nitrogen 58 mg/dL (9-16); Calcium 8.7 mg/dL (8.4-10.2); Carbon Dioxide 23 mmol/L (22-29); Chloride 108 mmol/L (96-108); Creatinine Clr Calc Pharmacy 38.7; Estimated Glomerular Filt Rate 22; Glucose Random 159 mg/dL (60-115); Magnesium 1.9 mg/dL (1.6-2.6); Phosphorus 3.5 mg/dL (2.7-4.5); Sodium 138 mmol/L (135-145)
[2024-05-11] MEDS: Lactulose 20 GM/30 ML SOLUTION 30 GM PO (21:40)
[2024-05-11] MEDS: predniSONE 10 MG TABLET PO (22:34)
[2024-05-11 23:37] LABS: Glucose, Whole Blood 159 mg/dL (60-115)
[2024-05-12] VITALS (19 sets, daily range): BP systolic 110–133; BP diastolic 41–79; PULSE 71–107; RESP 13–82; TEMP 36.3–37.5; O2SAT 90–97; BMI 42.7
[2024-05-12] MEDS: 0.9 % Sodium Chloride Flush 3 ML SYRINGE IVFLUSH ×4 (00:36→20:17)
[2024-05-12 01:02] LABS: Venous Blood Gas Refer to POC result
[2024-05-12 05:35] LABS: VBG Base Excess -2.2 mmol/L; VBG HCO3 23 mmol/L (22-26); VBG pCO2 43 mmHg; VBG pH 7.34 (7.32-7.43); VBG pO2 76 mmHg
[2024-05-12 05:47] LABS: MANUAL DIFF FLAG NO
[2024-05-12 05:55] LABS: Basophils Percent Auto 0.5 % (0-2); Eosinophils Percent Auto 0.5 % (0-4); Hematocrit 34.6 % (42.0-52.0); Hemoglobin 11.2 g/dl (14.0-18.0); Imm Gran Abs Auto 0.04 X10*3/uL (0.00-0.03); Imm Gran Pct Auto 0.5 % (0.0-0.4); Lymphocytes Absolute Auto 0.9 X10*3/uL (1.2-4.9); Mean Corpuscular HGB Conc 32.4 g/dl (31.0-36.0); Mean Corpuscular Hemoglobin 29.5 pg (27.0-33.0); Mean Corpuscular Volume 91.1 fL (80.0-98.0); Mean Platelet Volume 10.2 fL (9.4-12.4); Monocytes Absolute Auto 0.6 X10*3/uL (0.1-1.2); Monocytes Percent Auto 7.9 % (2-11); Neutrophils Absolute Auto 6.2 x10*3/uL (2.0-8.3); Neutrophils Percent Auto 79.6 % (45-73); Platelet Count 133 X10*3/uL (160-400); White Blood Count 7.8 X10*3/uL (4.8-10.8)
[2024-05-12 06:14] LABS: Alanine Aminotransferase 7 U/L (0-40); Albumin Level 3.3 g/dL (3.5-5.0); Alkaline Phosphatase 115 U/L (39-117); Anion Gap 14 (12-20); Aspartate Amino Transferase 25 U/L (5-37); Bilirubin Total 0.4 mg/dL (0.0-1.0); Blood Urea Nitrogen 53 mg/dL (9-16); Calcium 8.6 mg/dL (8.4-10.2); Carbon Dioxide 21 mmol/L (22-29); Chloride 110 mmol/L (96-108); Creatinine Clr Calc Pharmacy 46.7; Estimated Glomerular Filt Rate 27; Glucose Random 169 mg/dL (60-115); Magnesium 1.9 mg/dL (1.6-2.6); Potassium 3.8 mmol/L (3.3-5.1); Sodium 141 mmol/L (135-145); Total Protein 6.5 g/dL (6.5-8.0)
[2024-05-12 06:19] LABS: Venous Blood Gas Refer to POC result
[2024-05-12] MEDS: Albumin Human 25 % 100 ML IV ×2 (07:52→13:42)
[2024-05-12] MEDS: Potassium Phosphate/NS 15 MMOL/250 ML PLAST..BAG 62.5 MMOL IV (07:56)
[2024-05-12 08:01] LABS: Glucose, Whole Blood 170 mg/dL (60-115)
[2024-05-12] MEDS: Insulin Lispro 100 UNIT/ML 3 ML VIAL SUBCUT (08:04)
[2024-05-12] MEDS: Apixaban 5 MG TABLET PO ×2 (08:06→20:15)
[2024-05-12] MEDS: PHENobarbitaL 30 MG TABLET 60 MG PO ×2 (08:06→20:16)
[2024-05-12] MEDS: Folic Acid 1 MG TABLET PO (08:06)
[2024-05-12] MEDS: Thiamine HCL 100 MG TABLET PO ×2 (08:07→20:16)
[2024-05-12] MEDS: Lactulose 20 GM/30 ML SOLUTION 30 GM PO ×3 (08:10→20:16)
--- NOTE | 2024-05-12 09:40 | PM.CCPN ---
Subjective Subjective Date of Service: 05/12/24 Interval History: 61-year-old gentleman with underlying history of obesity, alcoholic cirrhosis with prior alcohol withdrawal seizures, systolic heart failure, AFib on Eliquis, MJ, CKD, diabetes mellitus, prior tracheostomy/gastrostomy with reversal admitted on 05/10/2024 with alcohol withdrawal, acute on chronic kidney injury, and hepatic encephalopathy, further complicated by distributive shock requiring pressor support and acute hypoxic respiratory failure requiring CPAP support. Started on empiric antibiotics. No events overnight. Titrated off pressors. Encephalopathy resolved. Renal function continues to improve. Critical Care Time (minutes): 45 Physical Exam Vital Signs: Vital Signs: Last Vital Signs Temp 99.5 F 05/12/24 08:00 Pulse 107 H 05/12/24 09:29 Resp 13 05/12/24 09:00 BP 130/63 05/12/24 09:29 Pulse Ox 92 05/12/24 09:00 O2 Del Method Nasal Cannula 05/12/24 09:00 O2 Flow Rate 2 05/12/24 09:00 FiO2 30 05/12/24 04:58 BMI result Body Mass Index 42.7 Const: General: no acute distress, alert and awake Nutritional Appearance: obese Eyes: Sclerae: sclerae normal EOM: EOMs intact bilaterally Neck: Neck: Yes no lymphadenopathy, Yes trachea midline and Yes supple Resp: Effort & Inspection: normal respiratory effort and no respiratory distress Auscultation: clear to auscultation bilaterally Cardio: Rate: tachycardic Rhythm: regular rhythm Heart sounds: no gallops, no murmurs and no rubs GI: Palpation (GI): Soft to palpation and Other GI palpation findings present ( Nontender) Auscultation: normal bowel sounds Extrem: General: No clubbing, No cyanosis and Yes edema (Trace bilateral) Objective Data Labs 05/12/24 05:29 05/12/24 05:29 Labs: Laboratory Results - last 24 hr 05/11/24 05/11/24 05/11/24 10:44 18:10 20:23 WBC RBC Hgb Hct MCV MCH MCHC RDW Plt Count MPV Immature Gran % (Auto) Neut % (Auto) Lymph % (Auto) [place] % (Auto) Eos % (Auto) Baso % (Auto) Lymph # (Auto) [place] # (Auto) Eos # (Auto) Baso # (Auto) Abs Immat Gran (auto) Absolute Neuts (auto) Absolute Nucleated RBC Nucleated RBC % (auto) VBG pH 7.33 VBG pCO2 40 VBG pO2 50 VBG HCO3 21 L VBG O2 Saturation 82.0 VBG Base Excess -3.5 Sodium Potassium Chloride Carbon Dioxide Anion Gap BUN Creatinine Estim Creat Clear Calc Estimated GFR POC Glucose 173 H 122 H Random Glucose Calcium Phosphorus Magnesium Total Bilirubin AST ALT Alkaline Phosphatase Total Protein Albumin Random Vancomycin 05/11/24 05/11/24 05/12/24 20:26 23:27 05:25 WBC RBC Hgb Hct MCV MCH MCHC RDW Plt Count MPV Immature Gran % (Auto) Neut % (Auto) Lymph % (Auto) [place] % (Auto) Eos % (Auto) Baso % (Auto) Lymph # (Auto) [place] # (Auto) Eos # (Auto) Baso # (Auto) Abs Immat Gran (auto) Absolute Neuts (auto) Absolute Nucleated RBC Nucleated RBC % (auto) VBG pH 7.34 VBG pCO2 43 VBG pO2 76 VBG HCO3 23 VBG O2 Saturation 96.0 VBG Base Excess -2.2 Sodium 138 Potassium 4.0 Chloride 108 Carbon Dioxide 23 Anion Gap 11 L BUN 58 H Creatinine 2.92 H Estim Creat Clear Calc 38.7 Estimated GFR 22 POC Glucose 159 H Random Glucose 159 H Calcium 8.7 Phosphorus 3.5 Magnesium 1.9 Total Bilirubin AST ALT Alkaline Phosphatase Total Protein Albumin Random Vancomycin 16.1 05/12/24 05/12/24 05:29 07:56 WBC 7.8 RBC 3.80 L Hgb 11.2 L Hct 34.6 L MCV 91.1 MCH 29.5 MCHC 32.4 RDW 16.0 Plt Count 133 L MPV 10.2 Immature Gran % (Auto) 0.5 H Neut % (Auto) 79.6 H Lymph % (Auto) 11.0 L [place] % (Auto) 7.9 Eos % (Auto) 0.5 Baso % (Auto) 0.5 Lymph # (Auto) 0.9 L [place] # (Auto) 0.6 Eos # (Auto) 0.0 Baso # (Auto) 0.0 Abs Immat Gran (auto) 0.04 H Absolute Neuts (auto) 6.2 Absolute Nucleated RBC 0.000 Nucleated RBC % (auto) 0.0 VBG pH VBG pCO2 VBG pO2 VBG HCO3 VBG O2 Saturation VBG Base Excess Sodium 141 Potassium 3.8 Chloride 110 H Carbon Dioxide 21 L Anion Gap 14 BUN 53 H Creatinine 2.44 H Estim Creat Clear Calc 46.7 Estimated GFR 27 POC Glucose 170 H Random Glucose 169 H Calcium 8.6 Phosphorus 2.0 L Magnesium 1.9 Total Bilirubin 0.4 AST 25 ALT 7 Alkaline Phosphatase 115 Total Protein 6.5 Albumin 3.3 L Random Vancomycin Microbiology Microbiology Results: Microbiology 05/10/24 Unknown Urine Catheterized - Powers Catheter Urine Culture - Final 05/10/24 18:33 Blood - Venous Blood Culture - Preliminary No growth after 24 hours. 05/10/24 18:26 Blood - Venous Blood Culture - Preliminary No growth after 24 hours. Progress Note: A&P Assessment and plan (1) Alcohol withdrawal: Status: Acute (2) Cirrhosis: Status: Acute (3) Hepatic encephalopathy: Status: Acute (4) Acute renal failure: Status: Acute (5) MJ (obstructive sleep apnea): Status: Acute Plan Assessment: 64-year-old gentleman admitted with alcohol withdrawal further complicated acute on kidney injury, distributive shock, and acute hypoxic respiratory failure requiring noninvasive positive pressure ventilatory support Plan: Neuro: Hepatic encephalopathy, improved on lactulose. Alcohol withdrawal, continue phenobarbital protocol. Cardiac: Distributive shock, resolved, titrated off pressor support. Acute congestive heart failure improving. Underlying AFib on Eliquis. Pulmonary: Acute hypoxic respiratory failure, improving. Underlying MJ on nocturnal CPAP. Renal: Acute on chronic kidney injury, improving. Non oliguric. Continue to monitor renal indices and urine output. Endo: No acute issues. GI: No acute issues. Underlying alcoholic cirrhosis. ID: Empiric coverage with ceftriaxone, cultures are pending. Heme/Onc: No acute issues. Psych: No acute issues. Miscellaneous: No acute issues. Prophylaxis: Eliquis Diet: Regular Critical care time spent: 45 minutes Quality Stroke Does the patient have a stroke diagnosis?: No VTE Prior VTE?: No VTE Risk Level:: Medical - moderate - high VTE Device Contraindication: N/A - Device Ordered VTE Drug Contraindication: N/A - Med Ordered
[2024-05-12] MEDS: fentaNYL citrate/PF 100 MCG/2 ML VIAL 50 MCG IVPUSH (09:58)
[2024-05-12 11:56] LABS: Glucose, Whole Blood 113 mg/dL (60-115)
--- NOTE | 2024-05-12 16:11 | PM.EVENT ---
Event Note Date of Service: 05/12/24 Event Note: 61-year-old gentleman with underlying history of obesity, alcoholic cirrhosis with prior alcohol withdrawal seizures, systolic heart failure, AFib on Eliquis, MJ, CKD, diabetes mellitus, prior tracheostomy/gastrostomy with reversal admitted on 05/10/2024 with alcohol withdrawal, acute on chronic kidney injury, and hepatic encephalopathy, further complicated by distributive shock requiring pressor support and acute hypoxic respiratory failure requiring CPAP support. Started on empiric antibiotics. No events overnight. Titrated off pressors. Encephalopathy resolved. Renal function continues to improve, downgraded to the medical floor on 05/12 distributive shock weaned off pressors Alcohol use disorder s/p precedex drip no on phenobarbital continue thimaine, folic acid Continue phenobarbital protocol metabolic encephalopathy due to hepatic encephalopathy improved with lactulose MERLIN SCr trending down from 5.84 to 2.44 follow BMP Atrial fibrillation, rate controlled Continue Eliquis metoprolol on hold Essential hypertension metoprolol, Norvasc, lisinopril on hold Type 2 diabetes mellitus POC glucose, diabetic diet Humalog on sliding scale Hold metformin mood hold fluoxetine, not likely taking Obesity, class III BMI 42 kg/m2. Weight loss encouraged Contributing to respiratory failure Hyperlipidemia hold statin for now GERD resume omeprazole. falls likely due to intoxication all imaging negative for fracture has been seen by PT & has refused STR in the past MJ CPAP Time Spent With Patient Time: Total time managing care of this patient today ____ minutes.
[2024-05-12] MEDS: oxyCODONE HCl Immed Release 5 MG TABLET PO (17:10)
[2024-05-12 17:26] LABS: Glucose, Whole Blood 130 mg/dL (60-115)
[2024-05-12] MEDS: cefTRIAXone sodium 1 GM VIAL IVPUSH (19:49)
[2024-05-12 20:46] LABS: Glucose, Whole Blood 127 mg/dL (60-115)
[2024-05-13 03:04] VITALS: PULSE 84; RESP 24; O2SAT 97
[2024-05-13 03:45] VITALS: BP 165/76; PULSE 77; RESP 14; TEMP 36.5; O2SAT 95
[2024-05-13] MEDS: Omeprazole 40 MG CAPSULE.DR PO (04:21)
[2024-05-13] MEDS: oxyCODONE HCl Immed Release 5 MG TABLET PO ×4 (04:21→18:30)
[2024-05-13 05:19] VITALS: BMI 42.7
[2024-05-13 07:19] LABS: MANUAL DIFF FLAG NO
[2024-05-13 07:24] LABS: Basophils Absolute Auto 0.1 X10*3/uL (0.0-0.2); Basophils Percent Auto 0.9 % (0-2); Eosinophils Absolute Auto 0.2 X10*3/uL (0.0-0.4); Eosinophils Percent Auto 2.6 % (0-4); Hematocrit 35.8 % (42.0-52.0); Hemoglobin 11.5 g/dl (14.0-18.0); Imm Gran Abs Auto 0.05 X10*3/uL (0.00-0.03); Imm Gran Pct Auto 0.6 % (0.0-0.4); Lymphocytes Absolute Auto 1.4 X10*3/uL (1.2-4.9); Lymphocytes Percent Auto 17.6 % (20-40); Mean Corpuscular HGB Conc 32.1 g/dl (31.0-36.0); Mean Corpuscular Hemoglobin 29.9 pg (27.0-33.0); Mean Platelet Volume 10.4 fL (9.4-12.4); Monocytes Absolute Auto 0.9 X10*3/uL (0.1-1.2); Monocytes Percent Auto 10.7 % (2-11); Neutrophils Absolute Auto 5.5 x10*3/uL (2.0-8.3); Neutrophils Percent Auto 67.6 % (45-73); Platelet Count 132 X10*3/uL (160-400); Red Blood Count 3.85 X10*6/uL (4.60-5.80); Red Cell Distribution Width 16.4 % (11.0-16.0); White Blood Count 8.1 X10*3/uL (4.8-10.8)
[2024-05-13 07:30] LABS: Glucose, Whole Blood 117 mg/dL (60-115)
[2024-05-13 07:31] LABS: VBG Base Excess -1.8 mmol/L; VBG HCO3 24 mmol/L (22-26); VBG pCO2 48 mmHg; VBG pH 7.31 (7.32-7.43); VBG pO2 41 mmHg
[2024-05-13 07:44] LABS: Alanine Aminotransferase 8 U/L (0-40); Albumin Level 3.7 g/dL (3.5-5.0); Alkaline Phosphatase 115 U/L (39-117); Anion Gap 12 (12-20); Aspartate Amino Transferase 26 U/L (5-37); Bilirubin Total 0.4 mg/dL (0.0-1.0); Blood Urea Nitrogen 35 mg/dL (9-16); Calcium 9.4 mg/dL (8.4-10.2); Carbon Dioxide 25 mmol/L (22-29); Chloride 112 mmol/L (96-108); Creatinine Clr Calc Pharmacy 85.7; Estimated Glomerular Filt Rate 54; Glucose Random 126 mg/dL (60-115); Magnesium 1.7 mg/dL (1.6-2.6); Phosphorus 2.6 mg/dL (2.7-4.5); Potassium 4.2 mmol/L (3.3-5.1); Sodium 145 mmol/L (135-145); Total Protein 7.1 g/dL (6.5-8.0)
[2024-05-13 08:26] VITALS: BP 141/90; PULSE 84; RESP 20; TEMP 36.5; O2SAT 99
[2024-05-13 09:17] LABS: Venous Blood Gas Refer to POC result
[2024-05-13] MEDS: Apixaban 5 MG TABLET PO ×2 (09:52→20:50)
[2024-05-13] MEDS: PHENobarbitaL 30 MG TABLET PO ×2 (09:52→20:50)
[2024-05-13] MEDS: Thiamine HCL 100 MG TABLET PO ×2 (09:52→20:50)
[2024-05-13] MEDS: Multivitamin TABLET 1 TAB PO (09:52)
[2024-05-13] MEDS: Folic Acid 1 MG TABLET PO (09:52)
[2024-05-13] MEDS: 0.9 % Sodium Chloride Flush 3 ML SYRINGE IVFLUSH ×3 (09:53→20:51)
--- NOTE | 2024-05-13 10:25 | MHC.RECOVRN ---
T/W received request for ACS eval and AUDIT C for pt in [id number]. Pt has just been transferred from ICU recently and is still very uncomfortable. He declined my meeting today and agreed for me to leave a resource packet with him. Motivation for recovery is low at this time but pt. may be more interested once he is medically stable. Report to nurse Herbert and ACS team for F/U.
[2024-05-13 10:58] VITALS: BP 148/90; PULSE 110; RESP 20; TEMP 36.3; O2SAT 94
[2024-05-13 11:35] LABS: Glucose, Whole Blood 123 mg/dL (60-115)
[2024-05-13] MEDS: Nystatin Powder 15 GM BOTTLE 1 APPL TOPICAL ×2 (12:30→20:52)
--- NOTE | 2024-05-13 13:03 | HO.PM.IMPN ---
Subjective Subjective Date of Service: 05/13/24 Interval History: seen and examined this morning follow up for etoh withdrawal, MERLIN, encephalopathy, fall reporting right hand pain denies sob Review of Systems Review of Systems: Yes all other systems are reviewed and are negative Constitutional Constitutional: Denies chills and Denies fever(s) Cardiovascular Cardiovascular: Denies chest pain, Denies palpitations and Denies dyspnea Respiratory Respiratory: Denies cough and Denies dyspnea Gastrointestinal Gastrointestinal: Denies abdominal pain Endocrine Endocrine: Denies palpitations Physical Exam Vital Signs: Vital Signs: Last Vital Signs Temp 97.4 F 05/13/24 10:58 Pulse 110 H 05/13/24 10:58 Resp 20 05/13/24 10:58 BP 148/90 H 05/13/24 10:58 Pulse Ox 94 05/13/24 10:58 O2 Del Method Nasal Cannula 05/13/24 10:58 O2 Flow Rate 2 05/13/24 10:58 FiO2 30 05/12/24 04:58 BMI result Body Mass Index 42.7 Const: General: cooperative, no acute distress, alert and awake Nutritional Appearance: obese Orientation/consciousness: patient oriented x3 Resp: Other: diminished breath sounds, no rales Effort & Inspection: normal respiratory effort, able to speak in complete sentences, no respiratory distress and no use of accessory muscles Cardio: Rate: regular rate GI: Inspection: No distended, Yes Abdominal panniculus present and Yes obesity Palpation (GI): Soft to palpation and nontender Skin: Other: generalized tenderness right hand with generalized swelling, no warmth Neuro: General: patient oriented x3, moves all extremities and CN's II-XI intact bilaterally Extrem: Other: able to move b/l LE, and left arm. right elbow/shoulder full ROM, right hand swelling and pain limiting right wrist ROM. no erythema Objective Data Active Medications Apixaban (Apixaban 5 Mg Tablet) 5 mg PO BID [facility] Last Admin: 05/13/24 09:52 Dose: 5 mg Documented By: KAREN Ceftriaxone Sodium (Ceftriaxone Sodium 1 Gm Vial) 1 gm IVPUSH Q24H [facility] Last Admin: 05/12/24 19:49 Dose: 1 gm Documented By: JOSE Folic Acid (Folic Acid 1 Mg Tablet) 1 mg PO DAILY [facility] Last Admin: 05/13/24 09:52 Dose: 1 mg Documented By: KAREN Insulin Human Lispro (Insulin Lispro 100 Unit/Ml 3 Ml Vial) 0.1 - 10 unit SUBCUT QIDACHS [facility]; Protocol Last Admin: 05/13/24 11:44 Dose: Not Given Documented By: KAREN Non-Admin Reason: No Insulin Coverage Lactulose (Lactulose 20 Gm/30 Ml Solution) 20 gm PO DAILY [facility] Multivitamins/Vitamin C (Multivitamin Tablet) 1 tab PO DAILY [facility] Last Admin: 05/13/24 09:52 Dose: 1 tab Documented By: KAREN Nystatin (Nystatin Powder 15 Gm Bottle) 1 appl TOPICAL BID [facility]; Protocol Last Admin: 05/13/24 12:30 Dose: 1 appl Documented By: KAREN Omeprazole (Omeprazole 40 Mg Capsule.Dr) 40 mg PO DAILY@0630 [facility] Last Admin: 05/13/24 04:21 Dose: 40 mg Documented By: JOSE Oxycodone HCl (Oxycodone Hcl Immed Release 5 Mg Tablet) 5 mg PO Q4H PRN PRN Reason: Pain, Severe (Pain Scale 7-10) Last Admin: 05/13/24 09:51 Dose: 5 mg Documented By: KAREN Pharmacy Consult (Consult Rx Etoh Phenob Im/Po) 1 each MISCELLANE ONCE PRN; Protocol PRN Reason: Consult order Phenobarbital (Phenobarbital 30 Mg Tablet) 30 mg PO BID [facility] Stop: 05/14/24 21:01 Last Admin: 05/13/24 09:52 Dose: 30 mg Documented By: KAREN Phenobarbital (Phenobarbital 30 Mg Tablet) 30 mg PO DAILY [facility] Stop: 05/16/24 09:01 Sodium Chloride (0.9 % Sodium Chloride Flush 3 Ml Syringe) 3 ml IVFLUSH QSHIFT [facility] Last Admin: 05/13/24 09:53 Dose: 3 ml Documented By: KAREN Thiamine HCl (Thiamine Hcl 100 Mg Tablet) 100 mg PO BID [facility] Last Admin: 05/13/24 09:52 Dose: 100 mg Documented By: KAREN Labs 05/13/24 07:10 05/13/24 07:10 Labs: Laboratory Results - last 24 hr 05/12/24 05/12/24 05/13/24 17:18 19:50 07:10 MCV 93.0 MCH 29.9 MCHC 32.1 RDW 16.4 H Plt Count 132 L MPV 10.4 Immature Gran % (Auto) 0.6 H Neut % (Auto) 67.6 Lymph % (Auto) 17.6 L Bucks % (Auto) 10.7 Eos % (Auto) 2.6 Baso % (Auto) 0.9 Lymph # (Auto) 1.4 Bucks # (Auto) 0.9 Eos # (Auto) 0.2 Baso # (Auto) 0.1 Abs Immat Gran (auto) 0.05 H Absolute Neuts (auto) 5.5 Absolute Nucleated RBC 0.000 Nucleated RBC % (auto) 0.0 VBG pH VBG pCO2 VBG pO2 VBG HCO3 VBG O2 Saturation VBG Base Excess Anion Gap 12 Estim Creat Clear Calc 85.7 Estimated GFR 54 POC Glucose 130 H 127 H 117 H Random Glucose 126 H Calcium 9.4 D Phosphorus 2.6 L Magnesium 1.7 Total Bilirubin 0.4 AST 26 ALT 8 Alkaline Phosphatase 115 Total Protein 7.1 Albumin 3.7 05/13/24 05/13/24 07:24 11:12 MCV MCH MCHC RDW Plt Count MPV Immature Gran % (Auto) Neut % (Auto) Lymph % (Auto) Bucks % (Auto) Eos % (Auto) Baso % (Auto) Lymph # (Auto) Bucks # (Auto) Eos # (Auto) Baso # (Auto) Abs Immat Gran (auto) Absolute Neuts (auto) Absolute Nucleated RBC Nucleated RBC % (auto) VBG pH 7.31 L VBG pCO2 48 VBG pO2 41 VBG HCO3 24 VBG O2 Saturation 65.0 VBG Base Excess -1.8 Anion Gap Estim Creat Clear Calc Estimated GFR POC Glucose 123 H Random Glucose Calcium Phosphorus Magnesium Total Bilirubin AST ALT Alkaline Phosphatase Total Protein Albumin Microbiology Microbiology Results: Microbiology 05/10/24 18:33 Blood Culture - Preliminary Blood - Venous No growth after 48 hours. 05/10/24 18:26 Blood Culture - Preliminary Blood - Venous No growth after 48 hours. 05/10/24 Unknown Urine Culture - Final Urine Catheterized - Powers Catheter Assessment and Plan (1) Hepatic encephalopathy: Status: Acute (2) Alcohol withdrawal: Status: Acute (3) Acute renal failure: Status: Acute Plan This is a 61-year-old gentleman with underlying history of obesity, alcoholic cirrhosis with prior alcohol withdrawal seizures, systolic heart failure, AFib on Eliquis, MJ, CKD, diabetes mellitus, prior tracheostomy/gastrostomy with reversal admitted on 05/10/2024 with alcohol withdrawal, acute on chronic kidney injury, and hepatic encephalopathy, further complicated by distributive shock requiring pressor support and acute hypoxic respiratory failure requiring CPAP support. Started on empiric antibiotics. No events overnight. Titrated off pressors. Encephalopathy resolved. Renal function continues to improve, downgraded to the medical floor on 05/12 distributive shock weaned off pressors Alcohol use disorder s/p precedex drip no on phenobarbital continue thimaine, folic acid Continue phenobarbital protocol addiction team following, motivation for recovery low metabolic encephalopathy due to hepatic encephalopathy resolved reduce dose of lactulose due to increasing number of stools right wrist/hand pain plain film negative for fracture generalized swelling likely due to fall prior to admission elevation, ice MERLIN resolved Atrial fibrillation, rate controlled Continue Eliquis metoprolol initially held while in ICU, HR increasing, will resume Essential hypertension lisinopril on hold resume metoprolol, norvasc follow bp HFrEF lasix on hold in ICU can likely resume lasix in am if bp stable Type 2 diabetes mellitus POC glucose, diabetic diet Humalog on sliding scale Hold metformin mood resume fluoxetine Obesity, class III BMI 42 kg/m2. Weight loss encouraged Contributing to respiratory failure Hyperlipidemia hold statin for now GERD resume omeprazole. falls likely due to intoxication all imaging negative for fracture PT eval pending MJ CPAP dvt ppx eliquis Patient requires ongoing inpatient stay for PT evaluation, safe disposition, titration blood pressure medication Quality Stroke Does the patient have a stroke diagnosis?: No VTE Prior VTE?: No VTE Risk Level:: Medical - moderate - high VTE Device Contraindication: N/A - Device Ordered VTE Drug Contraindication: N/A - Med Ordered
[2024-05-13 16:08] LABS: Glucose, Whole Blood 117 mg/dL (60-115)
[2024-05-13] MEDS: Lidocaine 4 % Patch ADH..PATCH 1 PATCH TRANSDERMA (18:22)
[2024-05-13] MEDS: cefTRIAXone sodium 1 GM VIAL IVPUSH (18:22)
[2024-05-13 19:56] LABS: Glucose, Whole Blood 128 mg/dL (60-115)
[2024-05-13 20:49] VITALS: PULSE 90
[2024-05-13] MEDS: Metoprolol Tartrate 50 MG TABLET PO (20:49)
[2024-05-14] VITALS (10 sets, daily range): BP systolic 112–152; BP diastolic 57–99; PULSE 75–114; RESP 12–22; TEMP 36.2–36.7; O2SAT 91–98
[2024-05-14] MEDS: oxyCODONE HCl Immed Release 5 MG TABLET PO ×4 (00:10→19:32)
[2024-05-14] MEDS: Omeprazole 40 MG CAPSULE.DR PO (05:06)
[2024-05-14 07:54] LABS: Glucose, Whole Blood 96 mg/dL (60-115)
--- NOTE | 2024-05-14 09:45 | HO.PM.IMPN ---
Subjective Subjective Date of Service: 05/14/24 Review of Systems Follow up ICU transfer secondary to shock, hypotension, alcohol abuse Feeling better but reporting back spasms Physical Exam Vital Signs: Vital Signs: Last Vital Signs Temp 97.6 F 05/14/24 07:36 Pulse 80 05/14/24 07:36 Resp 20 05/14/24 07:36 BP 130/60 05/14/24 07:36 Pulse Ox 96 05/14/24 07:36 O2 Del Method Nasal Cannula 05/14/24 07:36 O2 Flow Rate 2 05/14/24 07:36 FiO2 30 05/12/24 04:58 BMI result Body Mass Index 42.7 Appearing in no acute distress lung sounds are clear to auscultation heart regular rate rhythm, clear S1, S2 positive bowel sounds, abdomen is soft, nontender neuro patient is alert x3, no focal deficits Objective Data Active Medications Amlodipine Besylate (Amlodipine Besylate 5 Mg Tablet) 5 mg PO DAILY [facility]; Protocol Apixaban (Apixaban 5 Mg Tablet) 5 mg PO BID [facility] Last Admin: 05/13/24 20:50 Dose: 5 mg Documented By: JOSE Ceftriaxone Sodium (Ceftriaxone Sodium 1 Gm Vial) 1 gm IVPUSH Q24H [facility] Last Admin: 05/13/24 18:22 Dose: 1 gm Documented By: KAREN Fluoxetine HCl (Fluoxetine Hcl 20 Mg Capsule) 40 mg PO DAILY [facility] Folic Acid (Folic Acid 1 Mg Tablet) 1 mg PO DAILY [facility] Last Admin: 05/13/24 09:52 Dose: 1 mg Documented By: KAREN Insulin Human Lispro (Insulin Lispro 100 Unit/Ml 3 Ml Vial) 0.1 - 10 unit SUBCUT QIDACHS [facility]; Protocol Last Admin: 05/14/24 07:59 Dose: Not Given Documented By: CASSIDY Non-Admin Reason: No Insulin Coverage Lactulose (Lactulose 20 Gm/30 Ml Solution) 20 gm PO DAILY [facility] Lidocaine (Lidocaine 4 % Patch Adh..Patch) 1 patch TRANSDERMA DAILY [facility]; Protocol Last Admin: 05/13/24 18:22 Dose: 1 patch Documented By: KAREN Metoprolol Tartrate (Metoprolol Tartrate 50 Mg Tablet) 50 mg PO BID [facility]; Protocol Last Admin: 05/13/24 20:49 Dose: 50 mg Documented By: JOSE Multivitamins/Vitamin C (Multivitamin Tablet) 1 tab PO DAILY [facility] Last Admin: 05/13/24 09:52 Dose: 1 tab Documented By: KAREN Nystatin (Nystatin Powder 15 Gm Bottle) 1 appl TOPICAL BID [facility]; Protocol Last Admin: 05/13/24 20:52 Dose: 1 appl Documented By: JOSE Omeprazole (Omeprazole 40 Mg Capsule.Dr) 40 mg PO DAILY@0630 [facility] Last Admin: 05/14/24 05:06 Dose: 40 mg Documented By: JOSE Oxycodone HCl (Oxycodone Hcl Immed Release 5 Mg Tablet) 5 mg PO Q4H PRN PRN Reason: Pain, Severe (Pain Scale 7-10) Last Admin: 05/14/24 03:38 Dose: 5 mg Documented By: JOSE Pharmacy Consult (Consult Rx Etoh Phenob Im/Po) 1 each MISCELLANE ONCE PRN; Protocol PRN Reason: Consult order Phenobarbital (Phenobarbital 30 Mg Tablet) 30 mg PO BID [facility] Stop: 05/14/24 21:01 Last Admin: 05/13/24 20:50 Dose: 30 mg Documented By: JOSE Phenobarbital (Phenobarbital 30 Mg Tablet) 30 mg PO DAILY [facility] Stop: 05/16/24 09:01 Sodium Chloride (0.9 % Sodium Chloride Flush 3 Ml Syringe) 3 ml IVFLUSH QSHIFT [facility] Last Admin: 05/13/24 20:51 Dose: 3 ml Documented By: JOSE Thiamine HCl (Thiamine Hcl 100 Mg Tablet) 100 mg PO BID [facility] Last Admin: 05/13/24 20:50 Dose: 100 mg Documented By: JOSE Labs 05/13/24 07:10 05/13/24 07:10 Labs: Laboratory Results - last 24 hr 05/13/24 05/13/24 05/13/24 11:12 15:59 19:53 POC Glucose 123 H 117 H 128 H 05/14/24 07:36 POC Glucose 96 Assessment and Plan (1) Hepatic encephalopathy: Status: Acute (2) Alcohol withdrawal: Status: Acute (3) Acute renal failure: Status: Acute Plan 61-year-old gentleman with underlying history of obesity, alcoholic cirrhosis with prior alcohol withdrawal seizures, systolic heart failure, AFib on Eliquis, MJ, CKD, diabetes mellitus, prior tracheostomy/gastrostomy with reversal admitted on 05/10/2024 with alcohol withdrawal, acute on chronic kidney injury, and hepatic encephalopathy, further complicated by distributive shock requiring pressor support and acute hypoxic respiratory failure requiring CPAP support. Started on empiric antibiotics. No events overnight. Titrated off pressors. Encephalopathy resolved. Renal function continues to improve, downgraded to the medical floor on 05/12 Distributive shock Secondary to hypotension weaned off pressors in the ICU Alcohol use disorder s/p precedex drip no on phenobarbital continue thimaine, folic acid Continue phenobarbital protocol addiction team following, motivation for recovery low metabolic encephalopathy due to hepatic encephalopathy resolved Hold lactulose secondary to increased number of stools right wrist/hand pain plain film negative for fracture generalized swelling likely due to fall prior to admission elevation, ice MERLIN Likely secondary to hypoperfusion secondary to hypotension resolved Atrial fibrillation, rate controlled Continue Eliquis, and metoprolol Essential hypertension lisinopril on hold resume metoprolol, norvasc follow bp HFrEF Lasix was on hold while in the ICU, can resume Lasix Type 2 diabetes mellitus POC glucose, diabetic diet Humalog on sliding scale Hold metformin mood resume fluoxetine Obesity, class III BMI 42 kg/m2. Discussed importance of weight management as this may be contributing to worsening of other comorbidities Hyperlipidemia hold statin for now GERD resume omeprazole. falls likely due to intoxication all imaging negative for fracture PT eval pending MJ CPAP dvt ppx catarino Attending Dr. Lr DVT prophylaxis with apixaban Patient requires ongoing inpatient stay for PT evaluation, safe disposition, titration blood pressure medication Quality Stroke Does the patient have a stroke diagnosis?: No VTE Prior VTE?: No VTE Risk Level:: Medical - moderate - high VTE Device Contraindication: N/A - Device Ordered VTE Drug Contraindication: N/A - Med Ordered
[2024-05-14] MEDS: FLUoxetine HCl 20 MG CAPSULE 40 MG PO (09:46)
[2024-05-14] MEDS: Apixaban 5 MG TABLET PO ×2 (09:46→20:55)
[2024-05-14] MEDS: amLODIPine Besylate 5 MG TABLET PO (09:46)
[2024-05-14] MEDS: Thiamine HCL 100 MG TABLET PO ×2 (09:47→20:55)
[2024-05-14] MEDS: Multivitamin TABLET 1 TAB PO (09:47)
[2024-05-14] MEDS: Metoprolol Tartrate 50 MG TABLET PO ×2 (09:47→20:55)
[2024-05-14] MEDS: Folic Acid 1 MG TABLET PO (09:47)
[2024-05-14] MEDS: PHENobarbitaL 30 MG TABLET PO ×2 (09:47→20:55)
[2024-05-14] MEDS: Lidocaine 4 % Patch ADH..PATCH 1 PATCH TRANSDERMA (09:47)
[2024-05-14] MEDS: Nystatin Powder 15 GM BOTTLE 1 APPL TOPICAL (09:53)
[2024-05-14] MEDS: 0.9 % Sodium Chloride Flush 3 ML SYRINGE IVFLUSH ×3 (09:54→20:55)
--- NOTE | 2024-05-14 10:24 | MHC.CM.PN ---
Per ROUNDS discussion, Patient is not yet medically cleared for dc (just up from ICU/needs PT Eval) to assist with disposition. CM will follow.
--- NOTE | 2024-05-14 10:36 | PM.EVENT ---
Event Note Date of Service: 05/14/24 Event Note: Addiction consult placed for patient intelligence director attempted to meet with patient X3--patient requesting RN return each time Consult with be deferred at this time --please reconsult if patient requests to meet with with somone from [facility]/Recovery Time Spent With Patient Time: Total time managing care of this patient today ____ minutes.
--- NOTE | 2024-05-14 10:37 | MHC.RECOVRN ---
Attempted to follow up with pt and provide support. Pt sitting in chair, difficult to engage in conversation. Pt reports 10-20 nips whiskey daily prior to presentation. Pt reports longest period in recovery was 1.5 months, unable to tell me when this was. Pt reports watching tv was helpful. Reports he has tried [facility] and AA in the past. States my brother is my resource recovery specialist. Pt declines any recovery support at this time. Denies questions or concerns for t/w. Discussed with Stella Mims APRN.
[2024-05-14 11:35] LABS: Glucose, Whole Blood 108 mg/dL (60-115)
[2024-05-14] MEDS: Furosemide 20 MG TABLET 30 MG PO (12:06)
[2024-05-14 16:38] LABS: Glucose, Whole Blood 102 mg/dL (60-115)
[2024-05-14] MEDS: cefTRIAXone sodium 1 GM VIAL IVPUSH (19:32)
[2024-05-14 20:10] LABS: Glucose, Whole Blood 100 mg/dL (60-115)
[2024-05-15] VITALS (8 sets, daily range): BP systolic 128–156; BP diastolic 67–96; PULSE 63–85; RESP 14–25; TEMP 36–37.7; O2SAT 95–99; BMI 42.8
[2024-05-15] MEDS: Omeprazole 40 MG CAPSULE.DR PO (04:42)
[2024-05-15 07:00] LABS: Glucose, Whole Blood 95 mg/dL (60-115)
[2024-05-15] MEDS: 0.9 % Sodium Chloride Flush 3 ML SYRINGE IVFLUSH ×3 (09:20→20:23)
[2024-05-15] MEDS: Apixaban 5 MG TABLET PO ×2 (09:21→20:22)
[2024-05-15] MEDS: Thiamine HCL 100 MG TABLET PO ×2 (09:21→20:22)
[2024-05-15] MEDS: Folic Acid 1 MG TABLET PO (09:21)
[2024-05-15] MEDS: Multivitamin TABLET 1 TAB PO (09:21)
[2024-05-15] MEDS: Furosemide 20 MG TABLET 30 MG PO (09:21)
[2024-05-15] MEDS: FLUoxetine HCl 20 MG CAPSULE 40 MG PO (09:21)
[2024-05-15] MEDS: amLODIPine Besylate 5 MG TABLET PO (09:21)
[2024-05-15] MEDS: PHENobarbitaL 30 MG TABLET PO (09:21)
[2024-05-15] MEDS: Metoprolol Tartrate 50 MG TABLET PO ×2 (09:22→20:22)
[2024-05-15] MEDS: Lidocaine 4 % Patch ADH..PATCH 1 PATCH TRANSDERMA (09:22)
[2024-05-15] MEDS: Nystatin Powder 15 GM BOTTLE 1 APPL TOPICAL ×2 (09:26→20:23)
[2024-05-15] MEDS: oxyCODONE HCl Immed Release 5 MG TABLET PO ×2 (09:28→20:22)
[2024-05-15 10:55] LABS: Glucose, Whole Blood 109 mg/dL (60-115)
[2024-05-15 10:56] LABS: Anion Gap 13 (12-20); Blood Urea Nitrogen 23 mg/dL (9-16); Calcium 9.7 mg/dL (8.4-10.2); Carbon Dioxide 25 mmol/L (22-29); Chloride 107 mmol/L (96-108); Creatinine Clr Calc Pharmacy 125.5; Estimated Glomerular Filt Rate > 60; Glucose Random 109 mg/dL (60-115); Potassium 4.1 mmol/L (3.3-5.1); Sodium 141 mmol/L (135-145)
--- NOTE | 2024-05-15 11:29 | HO.PM.IMPN ---
Subjective Subjective Date of Service: 05/15/24 Review of Systems Follow up ICU transfer secondary to shock, hypotension, alcohol abuse Feeling better but reporting back spasms Physical Exam Vital Signs: Vital Signs: Last Vital Signs Temp 99.8 F 05/15/24 11:01 Pulse 72 05/15/24 11:01 Resp 20 05/15/24 11:01 BP 140/67 H 05/15/24 11:01 Pulse Ox 97 05/15/24 11:01 O2 Del Method Nasal Cannula 05/15/24 11:01 O2 Flow Rate 2 05/15/24 11:01 FiO2 30 05/12/24 04:58 BMI result Body Mass Index 42.8 Appearing in no acute distress lung sounds are clear to auscultation heart regular rate rhythm, clear S1, S2 positive bowel sounds, abdomen is soft, nontender neuro patient is alert x3, no focal deficits Objective Data Active Medications Amlodipine Besylate (Amlodipine Besylate 5 Mg Tablet) 5 mg PO DAILY [facility]; Protocol Last Admin: 05/15/24 09:21 Dose: 5 mg Documented By: OKSANA Apixaban (Apixaban 5 Mg Tablet) 5 mg PO BID [facility] Last Admin: 05/15/24 09:21 Dose: 5 mg Documented By: OKSANA Ceftriaxone Sodium (Ceftriaxone Sodium 1 Gm Vial) 1 gm IVPUSH Q24H [facility] Last Admin: 05/14/24 19:32 Dose: 1 gm Documented By: MALCOLM Fluoxetine HCl (Fluoxetine Hcl 20 Mg Capsule) 40 mg PO DAILY [facility] Last Admin: 05/15/24 09:21 Dose: 40 mg Documented By: OKSANA Folic Acid (Folic Acid 1 Mg Tablet) 1 mg PO DAILY [facility] Last Admin: 05/15/24 09:21 Dose: 1 mg Documented By: OKSANA Furosemide (Furosemide 20 Mg Tablet) 30 mg PO DAILY [facility]; Protocol Last Admin: 05/15/24 09:21 Dose: 30 mg Documented By: OKSANA Insulin Human Lispro (Insulin Lispro 100 Unit/Ml 3 Ml Vial) 0.1 - 10 unit SUBCUT QIDACHS [facility]; Protocol Last Admin: 05/15/24 09:20 Dose: Not Given Documented By: OKSANA Non-Admin Reason: No Insulin Coverage Lactulose (Lactulose 20 Gm/30 Ml Solution) 20 gm PO DAILY [facility] Last Admin: 05/14/24 09:48 Dose: Not Given Documented By: CASSIDY Non-Admin Reason: Patient Refused Lidocaine (Lidocaine 4 % Patch Adh..Patch) 1 patch TRANSDERMA DAILY [facility]; Protocol Last Admin: 05/15/24 09:22 Dose: 1 patch Documented By: OKSANA Metoprolol Tartrate (Metoprolol Tartrate 50 Mg Tablet) 50 mg PO BID [facility]; Protocol Last Admin: 05/15/24 09:22 Dose: 50 mg Documented By: OKSANA Multivitamins/Vitamin C (Multivitamin Tablet) 1 tab PO DAILY [facility] Last Admin: 05/15/24 09:21 Dose: 1 tab Documented By: OKSANA Nystatin (Nystatin Powder 15 Gm Bottle) 1 appl TOPICAL BID [facility]; Protocol Last Admin: 05/15/24 09:26 Dose: 1 appl Documented By: OKSANA Omeprazole (Omeprazole 40 Mg Capsule.Dr) 40 mg PO DAILY@0630 [facility] Last Admin: 05/15/24 04:42 Dose: 40 mg Documented By: UGO Oxycodone HCl (Oxycodone Hcl Immed Release 5 Mg Tablet) 5 mg PO Q4H PRN PRN Reason: Pain, Severe (Pain Scale 7-10) Last Admin: 05/15/24 09:28 Dose: 5 mg Documented By: OKSANA Pharmacy Consult (Consult Rx Etoh Phenob Im/Po) 1 each MISCELLANE ONCE PRN; Protocol PRN Reason: Consult order Phenobarbital (Phenobarbital 30 Mg Tablet) 30 mg PO DAILY [facility] Stop: 05/16/24 09:01 Last Admin: 05/15/24 09:21 Dose: 30 mg Documented By: OKSANA Sodium Chloride (0.9 % Sodium Chloride Flush 3 Ml Syringe) 3 ml IVFLUSH QSHIFT [facility] Last Admin: 05/15/24 09:20 Dose: 3 ml Documented By: OKSANA Thiamine HCl (Thiamine Hcl 100 Mg Tablet) 100 mg PO BID [facility] Last Admin: 05/15/24 09:21 Dose: 100 mg Documented By: OKSANA Labs 05/13/24 07:10 05/15/24 09:46 Labs: Laboratory Results - last 24 hr 05/14/24 05/14/24 05/14/24 11:23 16:35 20:08 Anion Gap Estim Creat Clear Calc Estimated GFR POC Glucose 108 102 100 Random Glucose Calcium 05/15/24 05/15/24 05/15/24 06:53 09:46 10:49 Anion Gap 13 Estim Creat Clear Calc 125.5 Estimated GFR > 60 POC Glucose 95 109 Random Glucose 109 Calcium 9.7 Assessment and Plan (1) Hepatic encephalopathy: Status: Acute (2) Alcohol withdrawal: Status: Acute (3) Acute renal failure: Status: Acute Plan 61-year-old gentleman with underlying history of obesity, alcoholic cirrhosis with prior alcohol withdrawal seizures, systolic heart failure, AFib on Eliquis, MJ, CKD, diabetes mellitus, prior tracheostomy/gastrostomy with reversal admitted on 05/10/2024 with alcohol withdrawal, acute on chronic kidney injury, and hepatic encephalopathy, further complicated by distributive shock requiring pressor support and acute hypoxic respiratory failure requiring CPAP support. Started on empiric antibiotics. No events overnight. Titrated off pressors. Encephalopathy resolved. Renal function continues to improve, downgraded to the medical floor on 05/12 Distributive shock, Resolved Secondary to hypotension weaned off pressors in the ICU Alcohol use disorder s/p precedex drip continue thimaine, folic acid Continue phenobarbital protocol addiction team following, motivation for recovery low metabolic encephalopathy due to hepatic encephalopathy. Resolved Hold lactulose secondary to increased number of stools right wrist/hand pain plain film negative for fracture generalized swelling likely due to fall prior to admission elevation, ice MERLIN Likely secondary to hypoperfusion secondary to hypotension resolved Atrial fibrillation, rate controlled Continue Eliquis, and metoprolol Essential hypertension lisinopril on hold resume metoprolol, norvasc follow bp HFrEF Lasix was on hold while in the ICU, can resume Lasix Type 2 diabetes mellitus POC glucose, diabetic diet Humalog on sliding scale Hold metformin mood resume fluoxetine Obesity, class III BMI 42 kg/m2. Discussed importance of weight management as this may be contributing to worsening of other comorbidities Hyperlipidemia hold statin for now GERD resume omeprazole. falls likely due to intoxication all imaging negative for fracture PT eval> STR MJ CPAP dvt ppx eliquis Attending Dr. Ram DVT prophylaxis with apixaban Patient requires ongoing inpatient stay for PT evaluation, safe disposition, titration blood pressure medication Quality Stroke Does the patient have a stroke diagnosis?: No VTE Prior VTE?: No VTE Risk Level:: Medical - moderate - high VTE Device Contraindication: N/A - Device Ordered VTE Drug Contraindication: N/A - Med Ordered
--- NOTE | 2024-05-15 13:42 | PC.NURSE ---
confused, yelling out, calling I want the police here, I want to go to the hospital , called .
--- NOTE | 2024-05-15 13:49 | PC.NURSE ---
[facility] [employer] at the bedside , pt confused ,hallucinating calling [employer]
[2024-05-15 16:53] LABS: Glucose, Whole Blood 106 mg/dL (60-115)
[2024-05-15] MEDS: Ketorolac Tromethamine 15 MG/ML VIAL IVPUSH (17:45)
[2024-05-15] MEDS: cefTRIAXone sodium 1 GM VIAL IVPUSH (18:35)
[2024-05-15 20:02] LABS: Glucose, Whole Blood 98 mg/dL (60-115)
[2024-05-16] VITALS (7 sets, daily range): BP systolic 126–152; BP diastolic 68–87; PULSE 67–91; RESP 17–24; TEMP 36.2–36.7; O2SAT 95–100; BMI 42.5
[2024-05-16] MEDS: LORazepam 2 MG/ML VIAL 1 MG IVPUSH (02:33)
[2024-05-16] MEDS: Omeprazole 40 MG CAPSULE.DR PO (05:28)
[2024-05-16 07:06] LABS: Glucose, Whole Blood 77 mg/dL (60-115)
[2024-05-16] MEDS: Folic Acid 1 MG TABLET PO (07:38)
[2024-05-16] MEDS: PHENobarbitaL 30 MG TABLET PO (07:38)
[2024-05-16] MEDS: Metoprolol Tartrate 50 MG TABLET PO ×2 (07:39→19:48)
[2024-05-16] MEDS: Furosemide 20 MG TABLET 30 MG PO (07:39)
[2024-05-16] MEDS: FLUoxetine HCl 20 MG CAPSULE 40 MG PO (07:39)
[2024-05-16] MEDS: Apixaban 5 MG TABLET PO ×2 (07:39→19:48)
[2024-05-16] MEDS: Multivitamin TABLET 1 TAB PO (07:39)
[2024-05-16] MEDS: amLODIPine Besylate 5 MG TABLET PO (07:39)
[2024-05-16] MEDS: Thiamine HCL 100 MG TABLET PO ×2 (07:39→19:48)
[2024-05-16] MEDS: 0.9 % Sodium Chloride Flush 3 ML SYRINGE IVFLUSH ×3 (07:40→19:49)
[2024-05-16] MEDS: Lidocaine 4 % Patch ADH..PATCH 1 PATCH TRANSDERMA (07:43)
[2024-05-16] MEDS: Ketorolac Tromethamine 15 MG/ML VIAL IVPUSH (07:48)
[2024-05-16] MEDS: Nystatin Powder 15 GM BOTTLE 1 APPL TOPICAL ×2 (07:50→19:49)
--- NOTE | 2024-05-16 09:42 | P.PNIM_ITS ---
Subjective Subjective Date of Service: 05/16/24 Review of Systems Follow up ICU transfer secondary to shock, hypotension, alcohol abuse Feeling better but reporting back spasms more confused today Physical Exam 2 Vital Signs: Vital Signs: Last Vital Signs Temp 97.4 F 05/16/24 07:23 Pulse 75 05/16/24 07:23 Resp 18 05/16/24 07:23 BP 143/87 H 05/16/24 07:23 Pulse Ox 99 05/16/24 07:23 O2 Del Method Nasal Cannula 05/16/24 07:23 O2 Flow Rate 2 05/16/24 07:23 FiO2 30 05/12/24 04:58 BMI result Body Mass Index 42.5 Appearing in no acute distress lung sounds are clear to auscultation heart regular rate rhythm, clear S1, S2 positive bowel sounds, abdomen is soft, nontender neuro patient is alert x3, some confusion noted Objective Data Active Medications Amlodipine Besylate (Amlodipine Besylate 5 Mg Tablet) 5 mg PO DAILY [facility]; Protocol Last Admin: 05/16/24 07:39 Dose: 5 mg Documented By: OKSANA Apixaban (Apixaban 5 Mg Tablet) 5 mg PO BID [facility] Last Admin: 05/16/24 07:39 Dose: 5 mg Documented By: OKSANA Ceftriaxone Sodium (Ceftriaxone Sodium 1 Gm Vial) 1 gm IVPUSH Q24H [facility] Last Admin: 05/15/24 18:35 Dose: 1 gm Documented By: OKSANA Fluoxetine HCl (Fluoxetine Hcl 20 Mg Capsule) 40 mg PO DAILY [facility] Last Admin: 05/16/24 07:39 Dose: 40 mg Documented By: OKSANA Folic Acid (Folic Acid 1 Mg Tablet) 1 mg PO DAILY [facility] Last Admin: 05/16/24 07:38 Dose: 1 mg Documented By: OKSANA Furosemide (Furosemide 20 Mg Tablet) 30 mg PO DAILY [facility]; Protocol Last Admin: 05/16/24 07:39 Dose: 30 mg Documented By: OKSANA Insulin Human Lispro (Insulin Lispro 100 Unit/Ml 3 Ml Vial) 0.1 - 10 unit SUBCUT QIDACHS [facility]; Protocol Last Admin: 05/16/24 07:40 Dose: Not Given Documented By: OKSANA Non-Admin Reason: No Insulin Coverage Ketorolac Tromethamine (Ketorolac Tromethamine 15 Mg/Ml Vial) 15 mg IVPUSH Q6H PRN PRN Reason: Pain, Moderate(Pain Scale 4-6) Last Admin: 05/16/24 07:48 Dose: 15 mg Documented By: OKSANA Lactulose (Lactulose 20 Gm/30 Ml Solution) 20 gm PO DAILY [facility] Last Admin: 05/14/24 09:48 Dose: Not Given Documented By: CASSIDY Non-Admin Reason: Patient Refused Lidocaine (Lidocaine 4 % Patch Adh..Patch) 1 patch TRANSDERMA DAILY [facility]; Protocol Last Admin: 05/16/24 07:43 Dose: 1 patch Documented By: OKSANA Metoprolol Tartrate (Metoprolol Tartrate 50 Mg Tablet) 50 mg PO BID [facility]; Protocol Last Admin: 05/16/24 07:39 Dose: 50 mg Documented By: OKSANA Multivitamins/Vitamin C (Multivitamin Tablet) 1 tab PO DAILY [facility] Last Admin: 05/16/24 07:39 Dose: 1 tab Documented By: OKSANA Nystatin (Nystatin Powder 15 Gm Bottle) 1 appl TOPICAL BID [facility]; Protocol Last Admin: 05/16/24 07:50 Dose: 1 appl Documented By: OKSANA Omeprazole (Omeprazole 40 Mg Capsule.Dr) 40 mg PO DAILY@0630 [facility] Last Admin: 05/16/24 05:28 Dose: 40 mg Documented By: ANTOIC Oxycodone HCl (Oxycodone Hcl Immed Release 5 Mg Tablet) 5 mg PO Q4H PRN PRN Reason: Pain, Severe (Pain Scale 7-10) Last Admin: 05/15/24 20:22 Dose: 5 mg Documented By: MALCOLM Pharmacy Consult (Consult Rx Etoh Phenob Im/Po) 1 each MISCELLANE ONCE PRN; Protocol PRN Reason: Consult order Sodium Chloride (0.9 % Sodium Chloride Flush 3 Ml Syringe) 3 ml IVFLUSH QSHIFT [facility] Last Admin: 05/16/24 07:40 Dose: 3 ml Documented By: OKSANA Thiamine HCl (Thiamine Hcl 100 Mg Tablet) 100 mg PO BID [facility] Last Admin: 05/16/24 07:39 Dose: 100 mg Documented By: OKSANA Labs 05/13/24 07:10 05/15/24 09:46 Labs: Laboratory Results - last 24 hr 1105/15/24 05/15/24 09:46 10:49 16:47 Anion Gap 13 Estim Creat Clear Calc 125.5 Estimated GFR > 60 POC Glucose 109 106 Random Glucose 109 Calcium 9.7 05/15/24 05/16/24 19:58 06:57 Anion Gap Estim Creat Clear Calc Estimated GFR POC Glucose 98 77 Random Glucose Calcium Microbiology Microbiology Results: Microbiology 05/10/24 18:33 Blood Culture - Final Blood - Venous No growth after 5 days. 05/10/24 18:26 Blood Culture - Final Blood - Venous No growth after 5 days. Assessment and Plan (1) Hepatic encephalopathy: Status: Acute (2) Alcohol withdrawal: Status: Acute (3) Acute renal failure: Status: Acute Plan 61-year-old gentleman with underlying history of obesity, alcoholic cirrhosis with prior alcohol withdrawal seizures, systolic heart failure, AFib on Eliquis, MJ, CKD, diabetes mellitus, prior tracheostomy/gastrostomy with reversal admitted on 05/10/2024 with alcohol withdrawal, acute on chronic kidney injury, and hepatic encephalopathy, further complicated by distributive shock requiring pressor support and acute hypoxic respiratory failure requiring CPAP support. Started on empiric antibiotics. No events overnight. Titrated off pressors. Encephalopathy resolved. Renal function continues to improve, downgraded to the medical floor on 05/12 Metabolic encephalopathy due to hepatic encephalopathy. Lactulose was held due to increase in number of stools Today patient seems more confused Check VBG and ammonia Distributive shock, Resolved Secondary to hypotension weaned off pressors in the ICU Alcohol use disorder s/p precedex drip continue thimaine, folic acid Continue phenobarbital protocol addiction team following, motivation for recovery low ed number of stools right wrist/hand pain plain film negative for fracture generalized swelling likely due to fall prior to admission elevation, ice MERLIN Likely secondary to hypoperfusion secondary to hypotension resolved Atrial fibrillation, rate controlled Continue Eliquis, and metoprolol Essential hypertension lisinopril on hold resume metoprolol, norvasc follow bp HFrEF Lasix was on hold while in the ICU, can resume Lasix Type 2 diabetes mellitus POC glucose, diabetic diet Humalog on sliding scale Hold metformin mood resume fluoxetine Obesity, class III BMI 42 kg/m2. Discussed importance of weight management as this may be contributing to worsening of other comorbidities Hyperlipidemia hold statin for now GERD resume omeprazole. falls likely due to intoxication all imaging negative for fracture PT eval> STR MJ CPAP dvt ppx eliquis Attending Dr. Ram DVT prophylaxis with apixaban PT recommend STR when medically cleared Quality Stroke Does the patient have a stroke diagnosis?: No VTE Prior VTE?: No VTE Risk Level:: Medical - moderate - high VTE Device Contraindication: N/A - Device Ordered VTE Drug Contraindication: N/A - Med Ordered
[2024-05-16 10:13] LABS: VBG Base Excess 0.4 mmol/L; VBG HCO3 25 mmol/L (22-26); VBG pCO2 41 mmHg; VBG pH 7.39 (7.32-7.43); VBG pO2 68 mmHg
[2024-05-16 10:15] LABS: Venous Blood Gas Refer to POC result
[2024-05-16 10:20] LABS: Ammonia 45 umol/L (13-55)
[2024-05-16 11:03] LABS: Glucose, Whole Blood 121 mg/dL (60-115)
--- NOTE | 2024-05-16 16:12 | MHC.CM.PN ---
EMR reviewed and per MD rounds, pt is not medically cleared for discharge due to management of hepatic encephalopathy. PT is recommending STR, bed offer received from [facility]. This CM met with pt to discuss discharge plan, pt states he does not want to go to rehab. This CM spoke with pts brother/HCP Ortiz, he states that pt does not have support at home and does not have anyone to help him with his care.
[2024-05-16 16:38] LABS: Glucose, Whole Blood 169 mg/dL (60-115)
[2024-05-16] MEDS: cefTRIAXone sodium 1 GM VIAL IVPUSH (18:36)
[2024-05-16 20:31] LABS: Glucose, Whole Blood 135 mg/dL (60-115)
[2024-05-17] VITALS (9 sets, daily range): BP systolic 123–152; BP diastolic 60–76; PULSE 68–95; RESP 18–20; TEMP 36.2–37; O2SAT 94–99; BMI 42.0
[2024-05-17] MEDS: Omeprazole 40 MG CAPSULE.DR PO (05:42)
[2024-05-17 07:26] LABS: Glucose, Whole Blood 125 mg/dL (60-115)
[2024-05-17] MEDS: Lidocaine 4 % Patch ADH..PATCH 1 PATCH TRANSDERMA (10:22)
[2024-05-17] MEDS: Folic Acid 1 MG TABLET PO (10:24)
[2024-05-17] MEDS: FLUoxetine HCl 20 MG CAPSULE 40 MG PO (10:25)
[2024-05-17] MEDS: Multivitamin TABLET 1 TAB PO (10:25)
[2024-05-17] MEDS: Thiamine HCL 100 MG TABLET PO ×2 (10:25→20:36)
[2024-05-17] MEDS: Apixaban 5 MG TABLET PO ×2 (10:25→20:36)
[2024-05-17] MEDS: 0.9 % Sodium Chloride Flush 3 ML SYRINGE IVFLUSH ×3 (10:26→20:37)
[2024-05-17] MEDS: Metoprolol Tartrate 50 MG TABLET PO ×2 (10:32→20:36)
[2024-05-17] MEDS: amLODIPine Besylate 5 MG TABLET PO (10:33)
[2024-05-17] MEDS: Furosemide 20 MG TABLET 30 MG PO (10:33)
[2024-05-17] MEDS: Ketorolac Tromethamine 15 MG/ML VIAL IVPUSH (10:35)
[2024-05-17] MEDS: Nystatin Powder 15 GM BOTTLE 1 APPL TOPICAL (10:41)
[2024-05-17 10:54] LABS: Glucose, Whole Blood 139 mg/dL (60-115)
--- NOTE | 2024-05-17 11:29 | MHC.CM.PN ---
CM received a message that /Elana @ [phone] is requesting a call from CM. Typically, Patient does not want information shared with his , only his Brother/HCP/Ortiz. CM met with Patient at bedside and Patient called Elana and CM,Elana and Patient spoke over speaker phone. Elana was inquiring about when Patient will be dc'd and CM explained that there is a possibility of a dc to home today. Patient is refusing PT's recommendation for STR but he is agreeable to new [facility]. CM will follow.
--- NOTE | 2024-05-17 13:00 | MHC.CM.PN ---
After speaking with PA, who reports that Patient's O2 sats are 94% on room air and he required the assist of 2 with PT to transfer, CM met with Patient at bedside to encourage him to consider STR. Patient stated that he will not stay in the hospital one more day and he will not consider going to STR. CM explained that if he chooses to leave AMA, he will not be eligible for VNA services nor CM's assistance with transportation to home. Patient insists that he is going home today and he is calling his Brother for a ride home. PA has been made aware and CM will follow.
--- NOTE | 2024-05-17 13:31 | MHC.CM.PN ---
At Patient's request, CM met with Patient at bedside again. Patient has not yet been medically cleared for dc and he is requesting a few more days to work with PT here. Patient states that he has a lift at home and only needs to be able to transfer from a surface to his w/c. PA has been made aware.CM will follow.
--- NOTE | 2024-05-17 14:52 | HO.PM.IMPN ---
Subjective Subjective Date of Service: 05/17/24 Interval History: seen and examined this morning follow up for fall, encephalopathy,etoh withdrawal awake, alert; wants to go home hand/back pain better denies sob no specific complaints Review of Systems Review of Systems: Yes all other systems are reviewed and are negative Constitutional Constitutional: Denies chills and Denies fever(s) Physical Exam Vital Signs: Vital Signs: Last Vital Signs Temp 97.4 F 05/17/24 10:53 Pulse 84 05/17/24 10:53 Resp 20 05/17/24 10:53 BP 128/60 05/17/24 10:53 Pulse Ox 94 05/17/24 10:53 O2 Del Method Room Air 05/17/24 10:53 O2 Flow Rate 2 05/17/24 07:25 FiO2 30 05/12/24 04:58 BMI result Body Mass Index 42.0 Const: General: cooperative, no acute distress, alert and awake Nutritional Appearance: obese Orientation/consciousness: patient oriented x3 Resp: Other: diminished breath sounds, no rales Effort & Inspection: normal respiratory effort, able to speak in complete sentences, no respiratory distress and no use of accessory muscles Cardio: Rate: regular rate GI: Inspection: No distended, Yes Abdominal panniculus present and Yes obesity Palpation (GI): Soft to palpation and nontender Skin: Other: right hand swelling resolved Neuro: General: patient oriented x3, moves all extremities and CN's II-XI intact bilaterally Objective Data Active Medications Amlodipine Besylate (Amlodipine Besylate 5 Mg Tablet) 5 mg PO DAILY [facility]; Protocol Last Admin: 05/17/24 10:33 Dose: 5 mg Documented By: TOM Apixaban (Apixaban 5 Mg Tablet) 5 mg PO BID [facility] Last Admin: 05/17/24 10:25 Dose: 5 mg Documented By: TOM Ceftriaxone Sodium (Ceftriaxone Sodium 1 Gm Vial) 1 gm IVPUSH Q24H [facility] Last Admin: 05/16/24 18:36 Dose: 1 gm Documented By: OKSANA Fluoxetine HCl (Fluoxetine Hcl 20 Mg Capsule) 40 mg PO DAILY [facility] Last Admin: 05/17/24 10:25 Dose: 40 mg Documented By: TOM Folic Acid (Folic Acid 1 Mg Tablet) 1 mg PO DAILY [facility] Last Admin: 05/17/24 10:24 Dose: 1 mg Documented By: TOM Furosemide (Furosemide 20 Mg Tablet) 30 mg PO DAILY [facility]; Protocol Last Admin: 05/17/24 10:33 Dose: 30 mg Documented By: TOM Insulin Human Lispro (Insulin Lispro 100 Unit/Ml 3 Ml Vial) 0.1 - 10 unit SUBCUT QIDACHS [facility]; Protocol Last Admin: 05/17/24 11:45 Dose: Not Given Documented By: TOM Non-Admin Reason: No Insulin Coverage Ketorolac Tromethamine (Ketorolac Tromethamine 15 Mg/Ml Vial) 15 mg IVPUSH Q6H PRN PRN Reason: Pain, Moderate(Pain Scale 4-6) Last Admin: 05/17/24 10:35 Dose: 15 mg Documented By: TOM Lactulose (Lactulose 20 Gm/30 Ml Solution) 20 gm PO DAILY [facility] Last Admin: 05/14/24 09:48 Dose: Not Given Documented By: CASSIDY Non-Admin Reason: Patient Refused Lidocaine (Lidocaine 4 % Patch Adh..Patch) 1 patch TRANSDERMA DAILY [facility]; Protocol Last Admin: 05/17/24 10:22 Dose: 1 patch Documented By: TOM Metoprolol Tartrate (Metoprolol Tartrate 50 Mg Tablet) 50 mg PO BID [facility]; Protocol Last Admin: 05/17/24 10:32 Dose: 50 mg Documented By: TOM Multivitamins/Vitamin C (Multivitamin Tablet) 1 tab PO DAILY [facility] Last Admin: 05/17/24 10:25 Dose: 1 tab Documented By: TOM Nystatin (Nystatin Powder 15 Gm Bottle) 1 appl TOPICAL BID [facility]; Protocol Last Admin: 05/17/24 10:41 Dose: 1 appl Documented By: TOM Omeprazole (Omeprazole 40 Mg Capsule.Dr) 40 mg PO DAILY@0630 [facility] Last Admin: 05/17/24 05:42 Dose: 40 mg Documented By: MALCOLM Oxycodone HCl (Oxycodone Hcl Immed Release 5 Mg Tablet) 5 mg PO Q4H PRN PRN Reason: Pain, Severe (Pain Scale 7-10) Last Admin: 05/15/24 20:22 Dose: 5 mg Documented By: MALCOLM Pharmacy Consult (Consult Rx Etoh Phenob Im/Po) 1 each MISCELLANE ONCE PRN; Protocol PRN Reason: Consult order Sodium Chloride (0.9 % Sodium Chloride Flush 3 Ml Syringe) 3 ml IVFLUSH QSHIFT [facility] Last Admin: 05/17/24 10:26 Dose: 3 ml Documented By: TOM Thiamine HCl (Thiamine Hcl 100 Mg Tablet) 100 mg PO BID [facility] Last Admin: 05/17/24 10:25 Dose: 100 mg Documented By: TOM Labs 05/13/24 07:10 05/15/24 09:46 Labs: Laboratory Results - last 24 hr 05/16/24 05/16/24 05/17/24 16:30 20:20 07:08 POC Glucose 169 H 135 H 125 H 05/17/24 10:48 POC Glucose 139 H Assessment and Plan (1) Alcohol withdrawal: Status: Acute Plan 61-year-old gentleman with underlying history of obesity, alcoholic cirrhosis with prior alcohol withdrawal seizures, systolic heart failure, AFib on Eliquis, MJ, CKD, diabetes mellitus, prior tracheostomy/gastrostomy with reversal admitted on 05/10/2024 with alcohol withdrawal, acute on chronic kidney injury, and hepatic encephalopathy, further complicated by distributive shock requiring pressor support and acute hypoxic respiratory failure requiring CPAP support. Started on empiric antibiotics. No events overnight. Titrated off pressors. Encephalopathy resolved. Renal function continues to improve, downgraded to the medical floor on 05/12 Metabolic encephalopathy due to hepatic encephalopathy. resolved. resume lactulose Distributive shock, Resolved Secondary to hypotension weaned off pressors in the ICU bp has remained stable Alcohol use disorder s/p precedex drip continue thimaine, folic acid Continue phenobarbital protocol motivation for recovery low; pt has declined addiction med eval on this admission right wrist/hand pain plain film negative for fracture generalized swelling likely due to fall prior to admission resolved, pain resolved MERLIN Likely secondary to hypoperfusion secondary to hypotension resolved Atrial fibrillation, rate controlled Continue Eliquis, and metoprolol Essential hypertension lisinopril on hold resumed metoprolol, norvasc follow bp HFrEF Lasix was on hold while in the ICU, Lasix resumed Type 2 diabetes mellitus POC glucose, diabetic diet Humalog on sliding scale Hold metformin mood resume fluoxetine Obesity, class III BMI 42 kg/m2. Discussed importance of weight management as this may be contributing to worsening of other comorbidities Hyperlipidemia hold statin for now GERD resume omeprazole. falls likely due to intoxication all imaging negative for fracture PT eval> STR. pt refuses STR MJ CPAP dvt ppx elitom Attending Dr. Ram DVT prophylaxis with apixaban PT recommend STR when medically cleared Quality Stroke Does the patient have a stroke diagnosis?: No VTE Prior VTE?: No VTE Risk Level:: Medical - moderate - high VTE Device Contraindication: N/A - Device Ordered VTE Drug Contraindication: N/A - Med Ordered
[2024-05-17 16:12] LABS: Glucose, Whole Blood 133 mg/dL (60-115)
[2024-05-17] MEDS: cefTRIAXone sodium 1 GM VIAL IVPUSH (20:36)
[2024-05-17 20:44] LABS: Glucose, Whole Blood 102 mg/dL (60-115)
[2024-05-18] MEDS: Ketorolac Tromethamine 15 MG/ML VIAL IVPUSH (01:47)
[2024-05-18 04:00] VITALS: BP 157/81; PULSE 63; RESP 17; TEMP 36.8; O2SAT 95
[2024-05-18 04:02] VITALS: PULSE 68; RESP 18; O2SAT 96
[2024-05-18 06:00] VITALS: BMI 42.9
[2024-05-18] MEDS: Omeprazole 40 MG CAPSULE.DR PO (06:37)
[2024-05-18 07:03] VITALS: BP 133/70; PULSE 69; RESP 18; TEMP 36.2; O2SAT 98
[2024-05-18 07:36] LABS: Glucose, Whole Blood 85 mg/dL (60-115)
[2024-05-18] MEDS: Folic Acid 1 MG TABLET PO (08:26)
[2024-05-18] MEDS: Multivitamin TABLET 1 TAB PO (08:26)
[2024-05-18] MEDS: Apixaban 5 MG TABLET PO (08:26)
[2024-05-18] MEDS: amLODIPine Besylate 5 MG TABLET PO (08:26)
[2024-05-18] MEDS: Metoprolol Tartrate 50 MG TABLET PO (08:26)
[2024-05-18] MEDS: FLUoxetine HCl 20 MG CAPSULE 40 MG PO (08:27)
[2024-05-18] MEDS: Furosemide 20 MG TABLET 30 MG PO (08:27)
[2024-05-18] MEDS: Thiamine HCL 100 MG TABLET PO (08:27)
[2024-05-18] MEDS: Lidocaine 4 % Patch ADH..PATCH 1 PATCH TRANSDERMA (08:28)
[2024-05-18] MEDS: Lactulose 20 GM/30 ML SOLUTION PO (08:28)
[2024-05-18] MEDS: 0.9 % Sodium Chloride Flush 3 ML SYRINGE IVFLUSH (08:29)
[2024-05-18] MEDS: Nystatin Powder 15 GM BOTTLE 1 APPL TOPICAL (08:38)
[2024-05-18 09:45] VITALS: BP 133/70; PULSE 69; O2SAT 98
[2024-05-18 11:01] VITALS: BP 141/65; PULSE 80; RESP 18; TEMP 36.3; O2SAT 96
[2024-05-18 11:01] LABS: Glucose, Whole Blood 161 mg/dL (60-115)
--- NOTE | 2024-05-18 11:55 | P.DS_ITS ---
DS: Providers Provider Date of Service: 05/18/24 Date of admission: 05/10/24 23:48 Date of discharge: 05/18/24 Primary care physician: SEAMUS MckoyP- Consults: 05/11/24 02:49 Addiction Medicine Routine Consulting Provider: Addiction Covering Reason for consultation: HX of etoh abuse, withdrawal seizures Has provider been notified: Yes Attending physician on discharge: Bam Ram Discharging clinician: Jacquelin Mcgee DS: Diagnosis Discharge Diagnosis (1) Alcohol withdrawal: Status: Resolved (2) Hepatic encephalopathy: Status: Resolved (3) Hypotension: Status: Resolved (4) Acute renal failure: Status: Resolved DS: Summary Hospital Course Hospital Course: From H&P on the day of admission The patient is a 61-year-old male with a past medical history of alcohol abuse,? withdrawal seizures, cirrhosis,? hypertension, congestive heart failure (EF 48%),? atrial fibrillation on Eliquis, MJ, GERD, tobacco use disorder, hyperlipidemia, type 2 diabetes mellitus, and chronic back pain who presented to the emergency department via EMS after sustaining a fall.? Patient reported he has been drinking ?a lot? for the past 10 days with no food, reports drinking 14 nips today.? He reported multiple falls without head strike in the past couple of days. He also reported possible seizure at home.?? On arrival to the emergency department patient respiratory rate 11, blood press ure 85/44, temperature 96.3 degrees.? He responded well to fluid resuscitation initially,? but later require pressor support.? ? Laboratory significant for? venous blood gas 7.18/66/33/25? later 7.26/ 44/46/20,? BUN 73, creatinine 5.84, lactic 2.9,? BNP 1493 Urine neg for uti? IMAGING:? ?HEAD CT/CERVICAL SPINE CT:? no acute findings ?Chest CT: No acute findings Abdominal CT: no acute finding? ED COURSE: Total of 3 L of normal saline, Patient received 2 g of Mag, thiamine 200 mg IV, albuterol 5 mg, ceftriaxone 1 g? and started on phenobarb protocol? as patient was already experiencing alcohol withdrawal symptoms ?Patient will be admitted to the ICU for management of hypotension requiring vasopressors and alcohol withdrawal syndrome 61-year-old gentleman with underlying history of obesity, alcoholic cirrhosis with prior alcohol withdrawal seizures, systolic heart failure, AFib on Eliquis, MJ, CKD, diabetes mellitus, prior tracheostomy/gastrostomy with reversal admitted on 05/10/2024 with alcohol withdrawal, acute on chronic kidney injury, and hepatic encephalopathy, further complicated by distributive shock requiring pressor support and acute hypoxic respiratory failure requiring CPAP support. Started on empiric antibiotics. No events overnight. Titrated off pressors. Encephalopathy resolved. Renal function continues to improve, downgraded to the medical floor on 05/12 Metabolic encephalopathy due to hepatic encephalopathy. resolved with lactulose. continue lactulose once daily. hold for diarrhea Distributive shock, Resolved weaned off pressors in the ICU. bp has remained stable throughout remainder of hospital stay Alcohol use disorder s/p precedex drip in ICU, transitioned and completed phenobatol protocol continued on thimaine, folic acid. motivation for recovery low; pt has declined addiction medicine evaluation on this admission right wrist/hand pain plain film negative for fracture generalized swelling likely due to fall prior to admission resolved, pain resolved MERLIN Likely secondary to hypoperfusion secondary to hypotension resolved Atrial fibrillation, rate controlled Continue Eliquis, and metoprolol Essential hypertension lisinopril on hold resumed metoprolol, norvasc follow bp HFrEF Lasix was on hold while in the ICU, Lasix resumed. remains euvolemic Obesity, class III BMI 42 kg/m2. Discussed importance of weight management as this may be contributing to worsening of other comorbidities falls likely due to intoxication. all imaging negative for fracture. Seen by PT who recommended short-term rehab. Patient has declined short-term rehab. On physical therapy evaluation this morning he was able to transfer and ambulate with minimal assistance. He has wheelchair, walker at home and is eager to return home. MJ Recommend compliance with CPAP Time Attestation Discharge Coordination Time (in mins): 40 Quality: Safe Use of Opioids Does Pt have an Active Cancer Diagnosis on the Problem List?: No Quality: Stroke Does the patient have a stroke diagnosis?: No Physical Exam Vital Signs: Vital Signs: Last Vital Signs Temp 97.3 F 05/18/24 11:01 Pulse 80 05/18/24 11:01 Resp 18 05/18/24 11:01 BP 141/65 H 05/18/24 11:01 Pulse Ox 96 05/18/24 11:01 O2 Del Method Room Air 05/18/24 11:01 O2 Flow Rate 2 05/18/24 07:03 FiO2 30 05/12/24 04:58 BMI result Body Mass Index 42.9 Const: General: cooperative, no acute distress, alert and awake Nutritional Appearance: obese Orientation/consciousness: patient oriented x3 HEENT: Other: poor dentition Resp: Other: diminished breath sounds, no rales Effort & Inspection: normal respiratory effort, able to speak in complete sentences, no respiratory distress and no use of accessory muscles Cardio: Rate: regular rate GI: Inspection: No distended, Yes Abdominal panniculus present and Yes obesity Palpation (GI): Soft to palpation and nontender Skin: Other: right hand swelling resolved Neuro: General: patient oriented x3, moves all extremities and CN's II-XI intact bilaterally Extrem: Other: able to move b/l LE, and left arm. right elbow/shoulder full ROM, right hand swelling and pain limiting right wrist ROM. no erythema DS: Data Data Completed and Pending Completed studies during hospitalization [Text1]: Procedures Assistance with Respiratory Ventilation, Less than 24 Consecutive Hours, Continuous Positive Airway Pressure (11/29/23) Bypass Trachea to Cutaneous with Tracheostomy Device, Percutaneous Approach (05/30/20) Change Tracheostomy Device in Trachea, External Approach (05/30/20) Detoxification Services for Substance Abuse Treatment (01/18/24) Drainage of Left Lower Lung Lobe, Via Natural or Artificial Opening Endoscopic, Diagnostic (05/30/20) Insertion of Endotracheal Airway into Trachea, Via Natural or Artificial Opening (05/30/20) Insertion of Feeding Device into Stomach, Percutaneous Approach (05/30/20) Insertion of Infusion Device into Right Atrium, Percutaneous Approach (05/30/20) Insertion of Infusion Device into Superior Vena Cava, Percutaneous Approach (05/30/20) Performance of Cardiac Output, Single, Manual (05/30/20) Performance of Urinary Filtration, Intermittent, Less than 6 Hours Per Day (05/30/20) Respiratory Ventilation, Greater than 96 Consecutive Hours (05/30/20) Ultrasonography of Superior Vena Cava, Guidance (05/30/20) Labs on day of discharge: Laboratory Results - last 24 hr 05/17/24 05/17/24 05/18/24 16:01 20:39 07:25 POC Glucose 133 H 102 85 05/18/24 10:55 POC Glucose 161 H Discharge Plan Discharge Anticipated Discharge Date/Time: 05/18/24 16:00 Patient Disposition: Home Health Service Discharge Diagnosis: etoh withdrawal distributive shock requiring ICU/pressor support chf exacerbation Referrals: Surinder TOVAR [Outside] - 1 Week Ortiz Deluca FNP- [Primary Care Provider] - 1 Week Discharge Medications: New lactulose 20 gram/30 mL Solution 20 g PO DAILY Qty: 1200 0RF thiamine mononitrate (vit B1) 100 mg Tablet 100 mg PO DAILY 90 Days Qty: 90 0RF Continued multivitamin with folic acid [Daily-Carlito (with folic acid)] 400 mcg tablet 1 tab PO DAILY Qty: 90 1RF Eliquis 5 mg tablet 5 mg PO BID Qty: 180 1RF albuterol sulfate 90 mcg/actuation HFA aerosol inhaler 2 puff inhalation QID PRN (Reason: Wheezing) Qty: 8.5 3RF metformin 850 mg tablet 850 mg PO DAILY Qty: 90 1RF rosuvastatin 5 mg tablet 5 mg PO DAILY Qty: 90 1RF folic acid 1 mg tablet 1 mg PO DAILY Qty: 90 1RF omeprazole 20 mg capsule,delayed release(DR/EC) 40 mg PO DAILY@0630 Qty: 180 1RF lisinopril 2.5 mg tablet 2.5 mg PO DAILY Qty: 90 1RF furosemide 20 mg tablet 30 mg PO DAILY Qty: 135 1RF fluoxetine 40 mg capsule 40 mg PO DAILY Qty: 90 0RF amlodipine 5 mg tablet 5 mg PO DAILY Qty: 90 1RF acetaminophen [Tylenol Arthritis Pain] 650 mg tablet extended release 650 mg PO Q12H PRN (Reason: pain) 30 Days Qty: 60 0RF metoprolol tartrate 50 mg tablet 50 mg PO BID Qty: 180 0RF Protocol: Hold for SBP/HR < HOLD for SBP < : 90 HOLD for HR < : 60 No Action (DME) blood-glucose meter [FreeStyle Lite Meter] Kit See Rx Instructions .ROUTE .MEDSUPPLY Qty: 1 0RF Rx Instructions: check sugar twice a day (DME) lancets [FreeStyle Lancets] 28 gauge misc See Rx Instructions .ROUTE .MEDSUPPLY Qty: 100 2RF Rx Instructions: check sugar twice a day (DME) FreeStyle David 2 Redkey Misc See Rx Instructions .Route Qty: 1 0RF Rx Instructions: tid testing (DME) FreeStyle David 2 Sensor Kit See Rx Instructions .Route Qty: 1 3RF Rx Instructions: tid testing folic acid 1 mg tablet 1 mg PO DAILY Qty: 30 0RF thiamine HCl (vitamin B1) 100 mg tablet 100 mg PO DAILY Qty: 30 0RF magnesium 250 mg tablet 250 mg PO DAILY Qty: 30 0RF Discharge Orders: Discharge Order (Routine); Ordered 05/18/24 Ordered By: Jacquelin Mcgee Diet: diabetic/low na diet Activity on Discharge: As tolerated Stand Alone Forms: Patient Portal Discharge page Print Language: Slovenian Care Plan Goals: see below Health Concerns: etoh dependence with withdrawal Fall Distributive shock Acute respiratory failure with hypoxia Acute on chronic CHF Metabolic encephalopathy due to hepatic encephalopathy Plan of Treatment: Take lactulose daily to ensure daily bowel movement, hold for diarrhea Do not drink alcohol Take all other medications as prescribed Call to schedule follow-up appointment with PCP Assessment: see discharge summary Discharge Date/Time: 05/18/24 17:29
--- NOTE | 2024-05-18 12:09 | MHC.CM.PN ---
Patient has been medically cleared for dc to home today, with services; NA is aware of today's dc.IMM addressed with Patient at bedside. Patient will return home today at 4PM, via [facility].
[2024-05-18] MEDS: Insulin Lispro 100 UNIT/ML 3 ML VIAL SUBCUT (12:50)
--- NOTE | 2024-05-18 13:02 | W.MHC.F2F ---
Service Date Service Date: 05/18/24 Encounter Date of encounter: 05/18/24 Reasons for Services Signs and symptoms assessed: needs detention for CHF/diabetic education, medication management Reason for detention: diabetic teaching and teach disease management Reason for physical therapy: home safety and mobility and therapeutic exercises Overseeing Care: Ortiz Deluca Homebound: Leaving the home is medically contraindicated at this time without the asist of a device and/or another person due th the listed conditions above and below. Reason homebound: unsteady gait / fall risk Certification: Based on the above findings, I certify that this patient is confined to the home and needs intermittent detention care, physical therapy and/or speech therapy, or continues to need occupational therapy. The patient is under my care, and I have initiated the establishment of the plan of care. The patient will be followed by a physician who will periodically review the plan of care. Time Spent With Patient Time: Total time managing care of this patient today ____ minutes.
[2024-05-18 15:06] VITALS: BP 145/74; PULSE 81; RESP 18; TEMP 36.7; O2SAT 100
[2024-05-18 16:25] LABS: Glucose, Whole Blood 89 mg/dL (60-115)
== END 2024-05-18 17:29 | disposition home health service (06) | DRG 896 ==
LOC: HO.ED 22:37 → HO.EDOVER 23:53 → HO.ICU 05-11 01:21 → HO.IMC 05-12 09:40
PROVIDERS: Internal Medicine Pulmonary Disease; Nurse Practitioner Acute Care; Student in an Organized Health Care Education/Training Program; Admitting Provider Registered Nurse Community Health; Emergency Provider Emergency Medicine; PCP Nurse Practitioner Family; Visit Provider Physician Assistant Medical
DX: F10.239 Alcohol dependence with withdrawal, unspecified (principal); G93.41 Metabolic encephalopathy; J96.01 Acute respiratory failure with hypoxia; R57.8 Other shock; I13.0 Hypertensive heart and chronic kidney disease with heart failure and stage 1 through stage 4 chronic kidney disease, or unspecified chronic kidney disease; I50.22 Chronic systolic (congestive) heart failure; N17.9 Acute kidney failure, unspecified; Z68.41 Body mass index [BMI] 40.0-44.9, adult; E86.0 Dehydration; E11.22 Type 2 diabetes mellitus with diabetic chronic kidney disease; E88.89 Other specified metabolic disorders; K70.10 Alcoholic hepatitis without ascites; E66.813 Obesity, class 3; Z71.3 Dietary counseling and surveillance; K21.9 Gastro-esophageal reflux disease without esophagitis; K70.30 Alcoholic cirrhosis of liver without ascites; M62.830 Muscle spasm of back; G47.33 Obstructive sleep apnea (adult) (pediatric); I48.91 Unspecified atrial fibrillation; K76.82 Hepatic encephalopathy; N18.30 Chronic kidney disease, stage 3 unspecified; F17.210 Nicotine dependence, cigarettes, uncomplicated; Z20.822 Contact with and (suspected) exposure to COVID-19; Y90.1 Blood alcohol level of 20-39 mg/100 ml; Z71.6 Tobacco abuse counseling; Z79.01 Long term (current) use of anticoagulants; Z79.84 Long term (current) use of oral hypoglycemic drugs; Z79.899 Other long term (current) drug therapy
CPT/HCPCS: 0241U; 36415; 70450; 71250; 72125; 73070; 73110; 73130; 74176; 80048; 80053; 80076; 80202; 80307; 81001; 82010; 82140; 82550; 82803; 82947; 83605; 83690; 83735; 83880; 84100; 84439; 84443; 84484; 85025; 85610; 87040; 87086; 93005; 94640; 94660; 97110; 97116; 97162; 97167; 97530; 99285; C1758; J0696; J1885; J2060; J2560; J3010; J3370; J3411; J3475; P9047

== ENCOUNTER → 2024-05-10 18:07 | Outpatient (BNV) | payer MEDICARE, OTHER, MEDICAID, SELFPAY | PROVIDERS: Admitting Provider Registered Nurse Community Health; Emergency Provider Emergency Medicine; Visit Provider Internal Medicine Cardiovascular Disease | DX: R94.31 Abnormal electrocardiogram [ECG] [EKG] (principal) | CPT/HCPCS: 93010 ==

== ENCOUNTER → 2024-05-10 23:48 | Outpatient (BNV) | payer MEDICARE, OTHER, MEDICAID, SELFPAY | PROVIDERS: Admitting Provider Registered Nurse Community Health; Emergency Provider Emergency Medicine; Visit Provider Physician Assistant Medical | DX: N17.9 Acute kidney failure, unspecified (principal); F10.939 Alcohol use, unspecified with withdrawal, unspecified; K76.82 Hepatic encephalopathy; I95.9 Hypotension, unspecified | CPT/HCPCS: 99232; 99239; 99499; G0180 ==

== ENCOUNTER → 2024-05-10 23:48 | Outpatient (BNV) | payer MEDICARE, OTHER, MEDICAID, SELFPAY | PROVIDERS: Admitting Provider Registered Nurse Community Health; Emergency Provider Emergency Medicine; Visit Provider Registered Nurse Community Health | DX: N17.9 Acute kidney failure, unspecified (principal); F10.939 Alcohol use, unspecified with withdrawal, unspecified; I95.9 Hypotension, unspecified; R79.89 Other specified abnormal findings of blood chemistry | CPT/HCPCS: 99291 ==

== ENCOUNTER → 2024-05-10 23:48 | Outpatient (BNV) | payer MEDICARE, OTHER, MEDICAID, SELFPAY | PROVIDERS: Admitting Provider Registered Nurse Community Health; Emergency Provider Emergency Medicine; Visit Provider Internal Medicine Pulmonary Disease | DX: F10.939 Alcohol use, unspecified with withdrawal, unspecified (principal); N17.9 Acute kidney failure, unspecified; K76.82 Hepatic encephalopathy; K74.60 Unspecified cirrhosis of liver; G47.33 Obstructive sleep apnea (adult) (pediatric) | CPT/HCPCS: 99291 ==

== ENCOUNTER 2024-05-18 20:54 | Emergency (ER) | payer MEDICARE, OTHER, MEDICAID, SELFPAY ==
--- NOTE | ~2024-05-18 | XR_ITS ---
EXAMINATION: XR CHEST CLINICAL INFORMATION: hypoxia COMPARISON: CT chest 05/10/2024 TECHNIQUE: Frontal view of the chest was obtained. FINDINGS: Normal appearance of the cardiomediastinal structures. No effusions or pneumothoraces. Apical blebs noted along with attenuation of the upper lung zone pulmonary parenchyma. No focal pulmonary consolidation. XR/XR chest 1V IMPRESSION: *No acute cardiopulmonary abnormalities identified. *Emphysema with biapical pulmonary blebs. Electronically signed by: Shimon Wilkins MD 05/19/2024 12:59 AM ERIK
--- NOTE | ~2024-05-18 | XR_ITS ---
EXAMINATION: XR LUMBOSACRAL SPINE CLINICAL INFORMATION: pain after fall COMPARISON: CT lumbar spine 11/28/2023. TECHNIQUE: Three views of the lumbosacral spine. FINDINGS: 5 lumbar type vertebral bodies are identified. The visualized sacrum appears intact. No lumbar vertebral body compression deformities identified. Multilevel endplate chronic discogenic changes are noted including endplate sclerosis adjacent to the L1-L2 intervertebral disc and anterior endplate osteophytosis at multiple levels including L1-L2 and L2-L3. Dense aortoiliac calcific atherosclerosis. XR/XR lumbar spine 2-3V IMPRESSION: *No acute abnormalities identified. *Multilevel chronic spondylosis lumbar spine grossly unchanged compared with CT lumbar spine 11/28/2023. *Dense aortoiliac calcific atherosclerosis. Electronically signed by: Shimon Wilkins MD 05/19/2024 12:55 AM ERIK [place]
[2024-05-18 21:03] VITALS: BP 120/74; PULSE 97; O2SAT 96
[2024-05-18 21:11] VITALS: BP 95/54; PULSE 82; RESP 20; TEMP 36.9; O2SAT 88; BMI 41.8
--- NOTE | 2024-05-18 21:24 | ECG_ITS ---
Test Reason : WEAKNESS Blood Pressure : / mmHG Vent. Rate : 078 BPM Atrial Rate : 000 BPM P-R Int : 000 ms QRS Dur : 090 ms QT Int : 382 ms P-R-T Axes : 000 059 037 degrees QTc Int : 435 ms Atrial fibrillation Nonspecific ST abnormality Abnormal ECG When compared with ECG of 10-MAY-2024 19:00, No significant change was found Referred By: Erica Mcadams Electronically Signed By:OLGA GRANDA MD
--- NOTE | 2024-05-18 21:25 | ED.GENADULT ---
HPI - General Adult General Chief complaint: General Medical Stated complaint: STABBING BACK PAIN Time Seen by Provider: 05/18/24 21:07 Source: patient, EMS and old records reviewed Mode of arrival: EMS Limitations: no limitations History of Present Illness ED Provider: MARIA ISABEL VÁZQUEZ narrative: 64 yo male with PMH of MJ, CHF, alcohol use disorder, pneumonia, cirrhosis, HTN, chronic resp failure, ETOH abuse with prior withdrawal seizrues, BPH, PAF on eliquis, chronic low back pain exacerbated by recent fall on 05/10. He was admitted here until today from 05/10 for hepatic encephalopathy, afib with RVR, pressor support in the ICU and ETOH withdrawal treatment, resp failure on CPAP. He was instructed he would need PT/STR but he refused. When he went home he couldn't get out of the WC and his could not help him. He drank 4 nips and they called EMS. He denies saddle anesthesia, new trauma, b/b incontinence. He states he needs rehab. EMS gave 100 of fentanyl [facility]P[facility] SUPERINTENDENT. I do not see imaging of his back in our system - he notes it has been chronic but feels worse after he fell. MD complaint: FTT at home, chronic back pain Onset (ago): year(s) Location: back Radiation: non-radiation Severity: moderate Quality: aching Pain Consistency: constant Relieving factors: none Exacerbating factors: movement Associated symptoms: denies other symptoms Treatments prior to arrival: other (fentanyl) Related Data Previous Rx's ?Medication ?Instructions ?Recorded blood-glucose meter (FreeStyle #1 ea 09/03/20 Lite Meter kit) lancets 28 gauge (FreeStyle #100 ea 02/02/21 Lancets) FreeStyle David 2 [place] (flash #1 ea 07/03/22 glucose scanning reader) FreeStyle David 2 Sensor (flash #1 ea 07/03/22 glucose sensor) multivitamin with folic acid 400 1 tab PO DAILY #90 tabs 12/06/23 mcg tablet (Daily-Carlito (with folic acid)) apixaban 5 mg tablet (Eliquis) 5 mg PO BID #180 tabs 12/16/23 albuterol sulfate 90 mcg/actuation 2 puff inhalation QID PRN Wheezing 01/16/24 aerosol inhaler #8.5 grams metformin 850 mg tablet 850 mg PO DAILY #90 tabs 01/24/24 rosuvastatin 5 mg tablet 5 mg PO DAILY #90 tabs 01/27/24 folic acid 1 mg tablet 1 mg PO DAILY #90 tabs 03/23/24 furosemide 20 mg tablet 30 mg (1.5 x 20 mg) PO DAILY #135 03/23/24 tabs lisinopril 2.5 mg tablet 2.5 mg PO DAILY #90 tabs 03/23/24 omeprazole 20 mg capsule,delayed 40 mg (2 x 20 mg) PO DAILY@0630 03/23/24 release #180 caps acetaminophen 650 mg 650 mg PO Q12H PRN pain 30 days 04/17/24 tablet,extended release (Tylenol #60 tabs Arthritis Pain) amlodipine 5 mg tablet 5 mg PO DAILY #90 tabs 04/17/24 fluoxetine 40 mg capsule 40 mg PO DAILY #90 caps 04/17/24 metoprolol tartrate 50 mg tablet 50 mg PO BID #180 tabs 04/17/24 lactulose 20 gram/30 mL oral 20 g (30 mL) PO DAILY #1,200 mL 05/18/24 solution thiamine mononitrate (vit B1) 100 100 mg PO DAILY 90 days #90 tabs 05/18/24 mg tablet Allergies Allergy/AdvReac Type Severity Reaction Status Date / Time No Known Allergies Allergy Verified 05/18/24 21:11 [No Known Allergies*] Review of Systems Review of Systems: Constitutional : No Weight loss, No Fever, No Chills, ENT/Mouth : No Hearing loss, No Ear Pain, No Nasal Congestion, No Sinus Pain, No Hoarseness, No sore throat, No Rhinorrhea, No Swallowing Difficulty Cardiovascular : No Chest Pain, No SOB Respiratory : No Cough, No Dyspnea Gastrointestinal : No Nausea, No Vomiting, No Diarrhea, No abdominal Pain, No Hematochezia, No Melena Genitourinary : No Dysuria, No Urinary Frequency, No Hematuria, No Urinary Incontinence, Musculoskeletal : positive back pain Skin : No Skin Lesions, No rash Neuro : No Weakness, No Numbness, No Paresthesias, no loss of bowel or bladder incontinence, no saddle anesthesia all other systems reviewed and are negative PMFSH Past Medical History Attestation statement: The following information was validated with the patient. Source: old records reviewed Medical History MJ (obstructive sleep apnea) CHF (congestive heart failure) Alcohol use disorder, severe, dependence CHF (congestive heart failure) Effusion, right knee Screen for STD (sexually transmitted disease) Left ankle swelling Hypomagnesemia Diarrhea Acute UTI Physical exam Nocturia Microhematuria Elevated serum creatinine Morbid obesity Increased ammonia level Weakness of both lower extremities Dermatitis, unspecified History of cardiac arrest (~05/2020) Nicotine dependence, cigarettes, uncomplicated Personal history of colonic polyps Hypoventilation associated with obesity syndrome Encephalopathy chronic CKD (chronic kidney disease) stage 3, GFR 30-59 ml/min Cirrhosis Diabetes Obesity (BMI 35.0-39.9 without comorbidity) Wernicke encephalopathy Obstructive sleep apnea (adult) (pediatric) Rib fractures CHF (congestive heart failure) Left atrial enlargement Persistent atrial fibrillation Depression Gout Arthritis Anxiety HTN (hypertension) Surgical History History of tracheostomy (~2019) History of bronchoscopy (~2019) History of colonoscopy (~2021) History of esophagogastroduodenoscopy (EGD) (~2021) History of cardioversion (~2020) S/P percutaneous endoscopic gastrostomy (PEG) tube placement (~2019) Family History Family History Father Lung cancer Mother No problems noted. Maternal Aunt History of heart attack Sister No problems noted. Brother Cancer of kidney Brother No problems noted. Brother No problems noted. Brother No problems noted. Brother No problems noted. Brother No problems noted. Other Substance use disorder Social History Social History Household Members: Unknown / Unable to assess Housing: Unknown / Unable to assess Do you presently have visiting nurse or other home services: No Unable to assess alcohol history related to: Unknown Alcohol intake: current Alcohol intake frequency: 3 or more drinks per day Alcohol type: hard liquor Comment: pt refuses fall risk interventions and protocol Patient Tobacco Use Status: Tobacco use Unknown Tobacco use type: Cigarette Cigarette Packs Per Day: 0.5 Cigarettes Per Day: 10.0 Years Smoked: 40 Smoked in Last 30 Days: Yes e-Cigarette/Vaping Use: Never Used Second Hand Smoke Exposure: No Use of substances other than those prescribed or required for medical reasons: No Advance Directives: Yes Advance Directives on File: Yes Advance Directives Date on File: 06/05/20 service: Yes Current occupational status: unemployed Cognitive needs: No Hearing needs: No Vision needs: No Physical Exam ED Vital Signs: Vital Signs - 24 hr 05/18/24 21:11 05/18/24 22:31 05/19/24 00:23 Temperature 98.4 F Pulse Rate 82 84 Respiratory Rate 20 20 16 Blood Pressure 95/54 L 122/71 Pulse Oximetry 88 L 97 Oxygen Delivery Method Room Air Nasal Cannula Oxygen Flow Rate 2 05/19/24 04:00 Temperature Pulse Rate 57 Respiratory Rate 16 Blood Pressure 137/67 Pulse Oximetry 99 Oxygen Delivery Method CPAP Oxygen Flow Rate BMI result Body Mass Index 41.8 Appearance: Alert. Oriented X3. No acute distress. Seems intoxicated, ETOH odor Eyes: Pupils equal, round and reactive to light. ENT: Pharynx normal. Neck: Normal inspection. Neck supple. CVS: irregular heart rate and rhythm. Pulses normal. Respiratory: No respiratory distress. Breath sounds bases diminished Abdomen: Soft and nontender. Skin: Skin warm and dry. Normal skin color. Normal skin turgor. Extremities: No lower extremity edema. Back: has pain with straight leg raises, SILT inner thigh 5/5 bilaterally L5, no clonus Neuro: Oriented X 3. No motor deficit. No sensory deficit. Course Course Course Narrative: good response to albumin Reevaluation(s) Reevaluation #1: VS stable on his CPAP resting comfortably 431am Medications Administered Discontinued Medications Generic Name Dose Route Start Last Admin Trade Name Dannyq PRN Reason Stop Dose Admin Albumin Human 100 mls @ 133.333 mls/hr 05/18/24 21:30 05/19/24 00:00 Kedbumin 25 % IV 05/18/24 23:14 Infused Q1H JESSICA Infusion Magnesium Sulfate 2 gm in 50 mls @ 25 mls/hr 05/18/24 22:00 05/19/24 00:46 Magnesium Sulfate/H2o IV 05/18/24 23:59 Infused ONCE ONE Infusion Oxycodone HCl 5 mg 05/18/24 22:27 05/18/24 23:00 Oxycodone Hcl Immed Release 5 Mg Tablet PO 05/18/24 22:28 5 mg ONCE ONE Administration Medical Decision Making Medical Decision Making MDM Narrative: 64 yo male with PMH of MJ, CHF, alcohol use disorder, pneumonia, cirrhosis, HTN, chronic resp failure, ETOH abuse with prior withdrawal seizrues, BPH, PAF on eliquis, chronic low back pain exacerbated by recent fall on 05/10 with ICU stay and hospitalization til today was recommended he get STR but he refused now unable to perform ADLs and drank again. At this time he has no complaints other than low back pain but no signs of cauda equina at this time labs, magnesium, albumin, lumbar film, xray he has hypoxia but he denies dyspnea - CXR ordered. No CP/SOB to suggest VTE but he is a poor historian will monitor O2 closely. Was hypoic intermittently during hospital stay as well Differential Diagnosis Differential Diagnoses: The differential diagnosis associated with the presentation includes ETOH abuse, viral syndrome, lyte abnormality Admission/Observation Consideration of admission/observation: Escalation of care including admission/observation considered labs reassuring, hypoxia likely due to prehospital fentanyl and ETOH use he has no resp symptoms CPAP at night ordered BP stabilized, no MERLIN he needs placement at this time repleted his magnesium doubt withdrawal has been here for 8 to 9 days and drank x 1 physician observation started at 0030am Lab Data [facility] Lab Attestation statement: I reviewed the patient's lab results. 05/18/24 21:32 05/18/24 21:32 Labs: Lab Results 05/18/24 05/18/24 Range/Units 21:32 22:56 WBC 9.4 (4.8-10.8) X10*3/uL RBC 3.90 L (4.60-5.80) X10*6/uL Hgb 11.5 L (14.0-18.0) g/dl Hct 35.5 L (42.0-52.0) % MCV 91.0 (80.0-98.0) fL MCH 29.5 (27.0-33.0) pg MCHC 32.4 (31.0-36.0) g/dl RDW 15.9 (11.0-16.0) % Plt Count 243 D (160-400) X10*3/uL MPV 10.9 (9.4-12.4) fL Immature Gran % (Auto) 0.5 H (0.0-0.4) % Neut % (Auto) 67.8 (45-73) % Lymph % (Auto) 15.3 L (20-40) % [place] % (Auto) 12.9 H (2-11) % Eos % (Auto) 2.9 (0-4) % Baso % (Auto) 0.6 (0-2) % Lymph # (Auto) 1.4 (1.2-4.9) X10*3/uL [place] # (Auto) 1.2 (0.1-1.2) X10*3/uL Eos # (Auto) 0.3 (0.0-0.4) X10*3/uL Baso # (Auto) 0.1 (0.0-0.2) X10*3/uL Abs Immat Gran (auto) 0.05 H (0.00-0.03) X10*3/uL Absolute Neuts (auto) 6.4 (2.0-8.3) x10*3/uL Absolute Nucleated RBC 0.000 (0.0-0.012) X10*3/uL Nucleated RBC % (auto) 0.0 (0.0-0.2) /100WBC Sodium 140 (135-145) mmol/L Potassium 3.3 (3.3-5.1) mmol/L Chloride 101 (96-108) mmol/L Carbon Dioxide 26 (22-29) mmol/L Anion Gap 16 (12-20) BUN 17 H (9-16) mg/dL Creatinine 0.85 (0.5-1.4) mg/dL Estim Creat Clear Calc 132.6 Estimated GFR > 60 Random Glucose 157 H (60-115) mg/dL Calcium 9.5 (8.4-10.2) mg/dL Magnesium 1.4 L* (1.6-2.6) mg/dL Total Bilirubin 0.3 (0.0-1.0) mg/dL Direct Bilirubin 0.3 (0.0-0.5) mg/dL AST 103 H (5-37) U/L ALT 64 H (0-40) U/L Alkaline Phosphatase 225 H (39-117) U/L Ammonia 29 (13-55) umol/L Total Protein 7.0 (6.5-8.0) g/dL Albumin 3.2 L (3.5-5.0) g/dL Lipase 86 H (8-78) U/L Urine Color Dark Yellow Urine Appearance Clear Urine pH 5.5 (5.0-9.0) Ur Specific [place] 1.020 (1.005-1.025) Urine Protein 100 (2+) H (Neg-Trace) mg/dL Urine Glucose (UA) Negative (Negative) mg/dL Urine Ketones Trace (Negative) mg/dL Urine Blood Negative (Negative) Urine Nitrite Negative (Negative) Ur Leukocyte Esterase Trace H (Negative) Urine RBC 0-2 (0-2) /HPF Urine WBC 0-5 (0-5) /HPF Ur Squamous Epith Cells 0-2 (0-2) /HPF Urine Bacteria None Seen (None Seen) Hyaline Casts 3-5 (0-2) /LPF Granular Casts Present Urine Opiates Screen Not Detected (Not Detect) Ur Buprenorphine Scrn Not Detected (Not Detect) ng/mL Ur Oxycodone Screen Not Detected (Not Detect) ng/mL Urine Methadone Screen Not Detected (Not Detect) ng/mL Urine Fentanyl Screen POSITIVE H (Not Detect) Ur Barbiturates Screen POSITIVE H (Not Detect) Ur Phencyclidine Scrn Not Detected (Not Detect) Ur Amphetamines Screen Not Detected (Not Detect) U Benzodiazepines Scrn POSITIVE H (Not Detect) Urine Cocaine Screen Not Detected (Not Detect) U Marijuana (THC) Screen Not Detected (Not Detect) Ethyl Alcohol 65 mg/dL Influenza Type A (PCR) NEGATIVE (Negative) Influenza Type B (PCR) NEGATIVE (Negative) RSV RNA Qual (PCR) NEGATIVE (Negative) SARS-CoV-2 RNA (RT-PCR) NEGATIVE (Negative) Independent Interpretation I performed an independent interpretation of an: EKG and Plain X-Ray Interpretation: Rate: 78 Rhythm: afib [place]: normal Normal QRS complex. ST T wave : no JANET, flat t wave aVL qTC:435 prior studies: no acute ischemia The study has been interpreted contemporaneously by me. . Radiology Impression Discussion of test interpretation with radiology: I have reviewed the radiologist's reading. Independent Historian Clinical information obtained from an independent historian. History obtained from or confirmed by: EMS External Record Review External record reviewed: Inpatient record Discharge Plan Discharge Clinical Impression: Alcohol use disorder, severe, dependence, MJ (obstructive sleep apnea), Hypomagnesemia Chronic back pain Qualifiers: Back pain location: low back pain Back pain laterality: bilateral Sciatica presence: without sciatica Qualified Code(s): M54.50 - Low back pain, unspecified Patient Disposition: Still a Patient Prescriptions: No Action (DME) blood-glucose meter [FreeStyle Lite Meter] Kit See Rx Instructions .ROUTE .MEDSUPPLY Qty: 1 0RF Rx Instructions: check sugar twice a day (DME) lancets [FreeStyle Lancets] 28 gauge misc See Rx Instructions .ROUTE .MEDSUPPLY Qty: 100 2RF Rx Instructions: check sugar twice a day (DME) FreeStyle David 2 [place] Misc See Rx Instructions .Route Qty: 1 0RF Rx Instructions: tid testing (DME) FreeStyle David 2 Sensor Kit See Rx Instructions .Route Qty: 1 3RF Rx Instructions: tid testing multivitamin with folic acid [Daily-Carlito (with folic acid)] 400 mcg tablet 1 tab PO DAILY Qty: 90 1RF Eliquis 5 mg tablet 5 mg PO BID Qty: 180 1RF albuterol sulfate 90 mcg/actuation HFA aerosol inhaler 2 puff inhalation QID PRN (Reason: Wheezing) Qty: 8.5 3RF metformin 850 mg tablet 850 mg PO DAILY Qty: 90 1RF rosuvastatin 5 mg tablet 5 mg PO DAILY Qty: 90 1RF folic acid 1 mg tablet 1 mg PO DAILY Qty: 90 1RF omeprazole 20 mg capsule,delayed release(DR/EC) 40 mg PO DAILY@0630 Qty: 180 1RF lisinopril 2.5 mg tablet 2.5 mg PO DAILY Qty: 90 1RF furosemide 20 mg tablet 30 mg PO DAILY Qty: 135 1RF fluoxetine 40 mg capsule 40 mg PO DAILY Qty: 90 0RF amlodipine 5 mg tablet 5 mg PO DAILY Qty: 90 1RF acetaminophen [Tylenol Arthritis Pain] 650 mg tablet extended release 650 mg PO Q12H PRN (Reason: pain) 30 Days Qty: 60 0RF metoprolol tartrate 50 mg tablet 50 mg PO BID Qty: 180 0RF Protocol: Hold for SBP/HR < HOLD for SBP < : 90 HOLD for HR < : 60 lactulose 20 gram/30 mL Solution 20 g PO DAILY Qty: 1200 0RF thiamine mononitrate (vit B1) 100 mg Tablet 100 mg PO DAILY 90 Days Qty: 90 0RF Print Language: Luxembourger
[2024-05-18 21:39] LABS: MANUAL DIFF FLAG NO
--- NOTE | 2024-05-18 21:39 | MHC.EDTECH ---
shayne cath was placed on pt with verbal orders from RN
[2024-05-18] MEDS: Albumin Human 25 % 100 ML 133.33 ML IV ×2 (21:40→22:29)
[2024-05-18 21:41] LABS: Basophils Absolute Auto 0.1 X10*3/uL (0.0-0.2); Basophils Percent Auto 0.6 % (0-2); Eosinophils Absolute Auto 0.3 X10*3/uL (0.0-0.4); Eosinophils Percent Auto 2.9 % (0-4); Hematocrit 35.5 % (42.0-52.0); Hemoglobin 11.5 g/dl (14.0-18.0); Imm Gran Abs Auto 0.05 X10*3/uL (0.00-0.03); Imm Gran Pct Auto 0.5 % (0.0-0.4); Lymphocytes Absolute Auto 1.4 X10*3/uL (1.2-4.9); Lymphocytes Percent Auto 15.3 % (20-40); Mean Corpuscular HGB Conc 32.4 g/dl (31.0-36.0); Mean Corpuscular Hemoglobin 29.5 pg (27.0-33.0); Mean Platelet Volume 10.9 fL (9.4-12.4); Monocytes Absolute Auto 1.2 X10*3/uL (0.1-1.2); Monocytes Percent Auto 12.9 % (2-11); Neutrophils Absolute Auto 6.4 x10*3/uL (2.0-8.3); Neutrophils Percent Auto 67.8 % (45-73); Platelet Count 243 X10*3/uL (160-400); Red Cell Distribution Width 15.9 % (11.0-16.0); White Blood Count 9.4 X10*3/uL (4.8-10.8)
[2024-05-18 21:48] LABS: Ammonia 29 umol/L (13-55)
[2024-05-18 22:00] LABS: Alanine Aminotransferase 64 U/L (0-40); Albumin Level 3.2 g/dL (3.5-5.0); Alkaline Phosphatase 225 U/L (39-117); Anion Gap 16 (12-20); Aspartate Amino Transferase 103 U/L (5-37); Bilirubin Direct 0.3 mg/dL (0.0-0.5); Bilirubin Total 0.3 mg/dL (0.0-1.0); Blood Urea Nitrogen 17 mg/dL (9-16); Calcium 9.5 mg/dL (8.4-10.2); Carbon Dioxide 26 mmol/L (22-29); Chloride 101 mmol/L (96-108); Creatinine Clr Calc Pharmacy 132.6; Estimated Glomerular Filt Rate > 60; Ethanol 65 mg/dL; Glucose Random 157 mg/dL (60-115); Lipase 86 U/L (8-78); Potassium 3.3 mmol/L (3.3-5.1); Sodium 140 mmol/L (135-145)
[2024-05-18 22:18] LABS: Influenza A PCR NEGATIVE (Negative); Influenza B PCR NEGATIVE (Negative); Resp Syncy Virus RNA Qual PCR NEGATIVE (Negative); SARS COV2 PCR INHOUSE NEGATIVE (Negative)
[2024-05-18] MEDS: Magnesium Sulfate/H2O 2 GM/50 ML PIGGYBACK IV (22:29)
[2024-05-18 22:31] VITALS: BP 122/71; PULSE 84; RESP 20; O2SAT 97
[2024-05-18] MEDS: oxyCODONE HCl Immed Release 5 MG TABLET PO (23:00)
[2024-05-18 23:03] LABS: Appearance Urine Clear; Color Urine Dark Yellow; Glucose Urine UA Negative (Negative); Leukocyte Esterase Urine Trace (Negative); Nitrite Urine Negative (Negative); PH 5.5 (5.0-9.0); UMIC TRIGGER UACC YES; Urine Blood Negative (Negative); Urine Ketones Trace mg/dL (Negative); Urine Protein 100 (2+) mg/dL (Neg-Trace)
[2024-05-18 23:09] LABS: Magnesium 1.4 mg/dL (1.6-2.6)
[2024-05-18 23:12] LABS: Amphetamine Screen Urine Not Detected (Not Detect); Barbiturates, Urine POSITIVE (Not Detect); Benzodiazepines Screen Urine POSITIVE (Not Detect); Buprenorphine Scr Not Detected (Not Detect); Cannabinoid Screen Urine Not Detected (Not Detect); Cocaine Screen Urine Not Detected (Not Detect); Fentanyl, urine POSITIVE (Not Detect); Methadone Screen, Urine Not Detected (Not Detect); Opiate Screen Urine Not Detected (Not Detect); Oxycodone Screen Urine Not Detected (Not Detect); Phencyclidine Screen Urine Not Detected (Not Detect)
[2024-05-18 23:15] LABS: Bacteria Urine None Seen (None Seen); Granular Casts Urine Present; RBC Urine 0-2 /HPF (0-2); Squamous Epithelial Cell Urine 0-2 /HPF (0-2); WBC Urine 0-5 /HPF (0-5)
[2024-05-19] VITALS (9 sets, daily range): BP systolic 123–142; BP diastolic 53–75; PULSE 57–108; RESP 12–96; TEMP 36.2–36.9; O2SAT 96–99
--- NOTE | 2024-05-19 01:37 | PC.NURSE ---
pt resting comfortably with CPAP on, no apparent distress noted at this time, call dietrich w/in reach
--- NOTE | 2024-05-19 06:45 | PC.NURSE ---
pt removed from CPAP, place in 2L NC
[2024-05-19] MEDS: oxyCODONE HCl Immed Release 5 MG TABLET PO ×3 (09:11→21:27)
--- NOTE | 2024-05-19 09:12 | PC.NURSE ---
pain med/scale pt requested the oxycodone for the pain and stated tylenol wasnt working at home and generally doesnt take anything stronger and wished to start with this dose.
--- NOTE | 2024-05-19 09:18 | PC.NURSE ---
patient a&ox3, vss, pt not home O2 dependent but has been on 2L NC here in the ED due to lower O2 sat on room air- pt does wear cpap at night. rr equal/non labored, lungs diminished throughout, pt states he is unable to ambulate and has 9/10 back pain which he was medicated for. pt requesting to go to rehab do due deconditioning. pharmacy called to complete med req, call dietrich within reach, will continue to monitor
--- NOTE | 2024-05-19 09:22 | PHA.MEDREC ---
Addendum entered by Primo Madsen RPh 05/19/24 09:55: Med rec reviewed. Original Note: Pharmacy Consult ? Medication Reconciliation Pharmacy has completed the medication reconciliation. Used discharge papers from yesterday 05/18. Nurse Pushpa reports patient said he did not take anything before coming here.
--- NOTE | 2024-05-19 14:36 | MHC.CM.PN ---
Patient discharged from [facility] on 05/18/24 to home. P.T. recommended STR. The patient refused to discharge to a STR. Patient now returns to the ER requesting to be discharged to a STR. Referrals from yesterday have been updated and sent to the SNFs. New referrals have been sent with new information from this readmission. CM will follow for discharge.
--- NOTE | 2024-05-19 14:57 | PC.NURSE ---
requested MD to cont home meds. awaiting orders
--- NOTE | 2024-05-19 15:16 | PC.NURSE ---
re: pain pt stated that he has strong back pain when he moves - about a 9. When he is lying down he feels it is about a 6. pt requests the oxycodone that is ordered PRN for his pain. he reports that it worked well for him this morning.
--- NOTE | 2024-05-19 16:58 | PC.NURSE ---
request to Dr. Montano to cont pt's home medications
--- NOTE | 2024-05-19 19:01 | PC.NURSE ---
report received from Marisela Morrison RN, assume care of pt at this time
--- NOTE | 2024-05-19 19:30 | PC.NURSE ---
pt moved up in the bed and readjusted for comfort. Called RT to come and do a breathing tx.
--- NOTE | 2024-05-19 19:31 | MHC.EDTECH ---
pt repositioned to right side for comfort and chucks were changed
[2024-05-19] MEDS: Apixaban 5 MG TABLET PO (21:27)
[2024-05-19] MEDS: Metoprolol Tartrate 50 MG TABLET PO (21:28)
[2024-05-20] MEDS: oxyCODONE HCl Immed Release 5 MG TABLET PO ×2 (03:33→10:30)
[2024-05-20 04:04] VITALS: BP 149/69; PULSE 89; RESP 14; TEMP 36.7; O2SAT 88
--- NOTE | 2024-05-20 04:06 | MHC.EDTECH ---
0400 rounding done ,vitals taken DMITRIY Mancini is aware of Patient low sat of 88 % ,Patient was incontinent of urine ,Also 350 ml empty from urinal ,sponge bath given ,Patient was reposition on his side with Pillows ,Patient is a max asst of 3-4 Person to be boosted up in bed .
--- NOTE | 2024-05-20 04:13 | PC.NURSE ---
pt room air sat was 77%, in room to see pt, replaced the O2 monitor, pt was not on his Oxygen. Pt placed back on O2/3L/NC, RT was called to placed pt back on his cpap
[2024-05-20 04:18] VITALS: PULSE 80; RESP 14; O2SAT 96
--- NOTE | 2024-05-20 05:47 | PC.NURSE ---
pt took cpap off and replaced the O2
[2024-05-20 06:18] VITALS: BP 151/68; PULSE 81; RESP 15; TEMP 36.9; O2SAT 100
[2024-05-20] MEDS: Omeprazole 40 MG CAPSULE.DR PO (06:20)
--- NOTE | 2024-05-20 06:56 | PC.NURSE ---
port given to Marisol IZAGUIRRE
[2024-05-20 09:15] VITALS: BP 166/86; PULSE 80; RESP 16; TEMP 37; O2SAT 99
[2024-05-20] MEDS: metFORMIN HCl 850 MG TABLET PO (09:16)
[2024-05-20] MEDS: Atorvastatin Calcium 20 MG TABLET PO (09:17)
[2024-05-20] MEDS: Folic Acid 1 MG TABLET PO (09:17)
[2024-05-20] MEDS: Furosemide 20 MG TABLET 30 MG PO (09:17)
[2024-05-20] MEDS: lisinopriL 2.5 MG TABLET PO (09:17)
[2024-05-20] MEDS: Apixaban 5 MG TABLET PO (09:17)
[2024-05-20] MEDS: amLODIPine Besylate 5 MG TABLET PO (09:17)
[2024-05-20] MEDS: FLUoxetine HCl 20 MG CAPSULE 40 MG PO (09:17)
[2024-05-20] MEDS: Multivitamin TABLET 1 TAB PO (09:17)
[2024-05-20] MEDS: Thiamine HCL 100 MG TABLET PO (09:18)
[2024-05-20] MEDS: Metoprolol Tartrate 50 MG TABLET PO (09:18)
--- NOTE | 2024-05-20 09:28 | PC.NURSE ---
this RN resumed care of pt at 0645. a&ox4. vss and up to date. pt currently remains on 3L via DC. medication administered per provider order. pt refused lactulose administration - pt educated on importance of administration but still refused. documented in AUG. per notes via [facility], pt will be being transferred to [facility] today. no CM notes identified. this RN reached out to . per , pt will be transferred to [facility] at some point today but ETA unknown. will notify pt when ETA is identified. pt otherwise resting comfortably in hospital bed in no apparent distress. no sob/wob noted. respirations even/unlabored. plan of care ongoing. call dietrich placed within reach.
--- NOTE | 2024-05-20 09:53 | MHC.CM.PN ---
Addendum entered by Janet Torres 05/20/24 10:32: Notified patients Brother, Ortiz of discharge today. He will deliver the patients CPAP to [place]. He is aware that the patient will transport via BLS at 2:30pm today. Original Note: Patient has received and has accepted a bed offer from [place]. He will transfer for STR. Transportation is set up for 2:30pm @ [id number].
--- NOTE | 2024-05-20 10:03 | PC.NURSE ---
per CM, pt will be transferred to [place] at 1430 via BLS. pt notified/aware.
[2024-05-20 12:07] VITALS: BP 143/73; PULSE 82; RESP 16; TEMP 36.9; O2SAT 96
--- NOTE | 2024-05-20 12:08 | PC.NURSE ---
vss and up to date. 550ml of dark yellow urine noted/documented in I&O section. pt remains on 3L via NC - respirations remain even/unlabored. pt waiting for transport at this time. plan of care ongoing.
--- NOTE | 2024-05-20 14:32 | PC.NURSE ---
this RN gave report to DMITRIY Weston, at [place] at this time. pt being transported to facility via [facility] at this time.
[2024-05-20 14:35] VITALS: BP 143/73; PULSE 82; RESP 16; TEMP 36.9; O2SAT 96
== END 2024-05-20 14:35 ==
PROVIDERS: Emergency Provider Emergency Medicine
DX: F10.20 Alcohol dependence, uncomplicated (principal); Y90.3 Blood alcohol level of 60-79 mg/100 ml; E83.42 Hypomagnesemia; M54.50 Low back pain, unspecified; Z03.818 Encounter for observation for suspected exposure to other biological agents ruled out; R06.00 Dyspnea, unspecified; G47.33 Obstructive sleep apnea (adult) (pediatric); Z99.89 Dependence on other enabling machines and devices; I48.19 Other persistent atrial fibrillation; Z79.84 Long term (current) use of oral hypoglycemic drugs; Z79.899 Other long term (current) drug therapy; F17.210 Nicotine dependence, cigarettes, uncomplicated; Z79.02 Long term (current) use of antithrombotics/antiplatelets; Z79.01 Long term (current) use of anticoagulants
CPT/HCPCS: 0241U; 71045; 72100; 80048; 80076; 80307; 81001; 81003; 82140; 83690; 83735; 85025; 93005; 99285; J3475; P9047

== ENCOUNTER → 2024-05-18 21:24 | Outpatient (BNV) | payer MEDICARE, OTHER, MEDICAID, SELFPAY | PROVIDERS: Emergency Provider Emergency Medicine; Visit Provider Internal Medicine Cardiovascular Disease | DX: I48.91 Unspecified atrial fibrillation (principal) | CPT/HCPCS: 93010 ==

== ENCOUNTER 2024-07-18 12:29 | Outpatient (AMB) | payer MEDICARE, OTHER, MEDICAID, SELFPAY ==
--- NOTE | 2024-07-18 12:36 | A.OFFPC_ITS ---
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 Insulation Required: No Accompanied by: Self / Same As Patient Allergies No Known Allergies [No Known Allergies*] Allergy (Verified 07/18/24 13:10) Medication List - Last Reconciled 07/18/24 by EVELYN Ballard acetaminophen ER (Tylenol Arthritis Pain) 650 mg PO Q12H PRN 30 days albuterol sulfate 90 mcg/actuation 2 puffs inhalation QID PRN amlodipine 5 mg PO DAILY apixaban (Eliquis) 5 mg PO BID blood-glucose meter (FreeStyle Lite Meter kit) check sugar twice a day fluoxetine 40 mg PO DAILY folic acid 1 mg PO DAILY FreeStyle David 2 Lindon (flash glucose scanning reader) tid testing NS FreeStyle David 2 Sensor (flash glucose sensor) tid testing NS furosemide 30 mg (1.5 x 20 mg) PO DAILY lancets (FreeStyle Lancets) check sugar twice a day lisinopril 2.5 mg PO DAILY magnesium 250 mg PO DAILY metformin 850 mg PO DAILY metoprolol tartrate 50 mg See Protocol PO BID multivitamin (Daily-Carlito tablet) 1 tab PO DAILY multivitamin with folic acid 400 mcg (Daily-Carlito (with folic acid)) 1 tab PO DAILY omeprazole 40 mg (2 x 20 mg) PO DAILY@0630 rosuvastatin 5 mg PO DAILY thiamine HCl (vitamin B1) 100 mg PO DAILY Tobacco use date assessed: 07/18/24 Dental Screening Dental Screen Date: 07/18/24 Did you have a dental visit in the last 12 months?: Yes Did you have a dental problem in the last 6 months where you did not have access to dental care?: No Was dental information given to patient?: Patient has dentist HPI HDF - fall HPI Details Chief Complaint Post-discharge follow-up for alcohol withdrawal and evaluation of related complications. History of Present Illness The patient is a 64-year-old male presenting for follow-up care following hospitalization due to alcohol withdrawal syndrome. The patient was initially seen on 05/10/2024 after being brought in by ambulance following a fall, precipitated by a significant increase in alcohol consumption, averaging 14 nips per day over the preceding ten days. At the time of hospitalization, the patient exhibited symptoms of withdrawal and possible seizure activity at home, with a reported respiratory rate of 11 and hypotension with blood pressure at 85/44 mmHg. Initial management included fluid resuscitation and cessation of alcohol, with later requirement for blood pressure support. The patient?s brain natriuretic peptide (BNP) level was noted to be elevated at 1493 pg/mL. Imaging including head CT, cervical spine CT, chest CT, and abdominal CT showed no acute findings. During the hospital stay, the patient was started on a phenobarbital protocol to manage withdrawal symptoms, and managed in the ICU for hypotension. He experienced hepatic encephalopathy, which resolved following extubation and titration from vasopressor support. Renal function began to improve after being diagnosed with acute renal failure. The patient stopped lactulose therapy, was experiencing diarrhea. Upon discharge, the patient declined evaluation for addiction treatment and was admitted to a group home for rehabilitation. It is reported that he has refrained from alcohol consumption for two months since the incident. The patient reports ongoing tobacco use. 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 - Alcohol Use: Reports no alcohol consum ption for the past two months following a period of heavy drinking. - Living Situation: Discharged to a [facility] for rehabilitation. Health Maintenance Review of Systems - Cardiovascular: Denies chest pain. - Respiratory: Denies shortness of breat h. - Gastrointestinal: Denies hematemesis a nd mentions ongoing diarrhea. Physical Exam General: Cooperative, healthy appearing, comfortable, no acute distress and well developed, obese Orientation: Patient oriented x3 Limitations: No limitations Head: Normal to inspection Ears: Hearing grossly normal bilaterally Nose: Normal external nose present Face and sinus: Normal facial exam Eyes: Appearance normal, both eyes and all related structures Neck: Normal visual inspection and Yes full ROM Respiratory: Respiratory rate was 11. Normal respiratory effort and able to speak in complete sentences. Clear to auscultation bilaterally Cardiovascular: irregular irregular GI: Normal to inspection. Soft to palpation and nontender Skin: No rashes or lesions noted Neuro: Patient oriented x3 Extremities: Bilateral extremities with some limitations, patient using a chair for support. Results - Labs: Elevated BNP at 1493 pg/mL. - Diagnostic Imaging: No acute findings on CT scans of head, cervical spine, chest, and abdomen. Plan - Continue monitor for any alcohol use - Monitor blood pressure and renal funct ion closely. - Encourage continued abstinence from al cohol; revisit readiness for addiction treatment evaluation. - Address ongoing tobacco use and discus s cessation options. - Arrange follow-up assessments to monit or cirrhosis and heart failure management, (gastro and cardiology), pt reports he will call. Patient was informed and verbally consented to the use of an ambient scribe for clinic note documentation during this visit. Discussion Notes During this visit, I discussed with the patient the importance of ongoing management for his multiple medical conditions exacerbated by alcohol use. We reviewed his hospitalization course, focusing on the management of withdrawal symptoms and the subsequent improvement in renal function. I reiterated the significance of abstinence from alcohol, which he reported maintaining for two months, and encouraged continued efforts on this front. The patient declined evaluation by addiction medicine at the time but was advised to remain open to future support. Blood pressure management and renal function were emphasized as critical areas for monitoring. Lactulose therapy continues as before, with acknowledgment of diarrhea as a manageable side effect. We also reviewed his current living situation in a group home, which offers a supportive environment for his ongoing recovery. Patient Instructions - Avoid alcohol consumption to prevent w ithdrawal complications. - Monitor blood pressure regularly and r eport any significant changes. - Reach out if symptoms of withdrawal re turn or if diarrhea becomes severe. - Continue to explore support and resour jimmy for smoking cessation. - Return for follow-up appointments as s cheduled to monitor your health conditions. [facility] Medical History MJ (obstructive sleep apnea) CHF (congestive heart failure) Alcohol use disorder, severe, dependence CHF (congestive heart failure) Effusion, right knee Screen for STD (sexually transmitted disease) Left ankle swelling Hypomagnesemia Diarrhea Acute UTI Physical exam Nocturia Microhematuria Elevated serum creatinine Morbid obesity Increased ammonia level Weakness of both lower extremities Dermatitis, unspecified History of cardiac arrest (~05/2020) Nicotine dependence, cigarettes, uncomplicated Personal history of colonic polyps Hypoventilation associated with obesity syndrome Encephalopathy chronic CKD (chronic kidney disease) stage 3, GFR 30-59 ml/min Cirrhosis Diabetes Obesity (BMI 35.0-39.9 without comorbidity) Wernicke encephalopathy Obstructive sleep apnea (adult) (pediatric) Rib fractures CHF (congestive heart failure) Left atrial enlargement Persistent atrial fibrillation Depression Gout Arthritis Anxiety HTN (hypertension) Surgical History History of tracheostomy (~2019) History of bronchoscopy (~2019) History of colonoscopy (~2021) History of esophagogastroduodenoscopy (EGD) (~2021) History of cardioversion (~2020) S/P percutaneous endoscopic gastrostomy (PEG) tube placement (~2019) Family History Father Lung cancer Mother No problems noted. Maternal Aunt History of heart attack Sister No problems noted. Brother Cancer of kidney Brother No problems noted. Brother No problems noted. Brother No problems noted. Brother No problems noted. Brother No problems noted. Other Substance use disorder Social History Household Members: Unknown / Unable to assess Housing: Unknown / Unable to assess Do you presently have visiting nurse or other home services: No Unable to assess alcohol history related to: Unknown Alcohol intake: current Alcohol intake frequency: 3 or more drinks per day Alcohol type: hard liquor Comment: pt refuses fall risk interventions and protocol Patient Tobacco Use Status: Tobacco use Unknown Tobacco use type: Cigarette Cigarette Packs Per Day: 0.5 Cigarettes Per Day: 10.0 Years Smoked: 40 e-Cigarette/Vaping Use: Never Used Second Hand Smoke Exposure: No Advance Directives Date on File: 06/05/20 service: Yes Current occupational status: unemployed Cognitive needs: No Hearing needs: No Vision needs: No Questionnaire PHQ-9 Over the last 2 weeks, how often have you been bothered by any of the following problems? 28465 - PHQ-9 Billing: Patient declined-do not bill Source: Developed by Drs. Gopi Zhong, Dina Rojas, Yonas Reddy and colleagues, with an educational juanpablo from [employer]. Thrive Questionnaire Date Thrive assessed: 07/18/24 I am a: Patient What is your living situation today?: I have a steady place to live Within the past 12 months, did the food you bought not last and you didn't have the money to get more?: I choose not to answer this question Within the past 12 months, did you worry whether your food would run out before you got money to buy more?: I choose not to answer this question Do you have trouble paying for medicines?: I choose not to answer this question Do you have trouble getting transportation to medical appointments?: I choose not to answer this question Do you have trouble paying your heating and electricity bill?: I choose not to answer this question Do you have trouble taking care of your child, family member or friend?: I choose not to answer this question Do you have trouble with day-to-day activities such as bathing, preparing meals, shopping, managing finances, etc.?: I choose not to answer this question Are you currently unemployed and looking for a job?: I choose not to answer this question Are you interested in more education?: I choose not to answer this question Please select the resources that you would like help with: None THRIVE Score: 0 AUDIT C Alcohol Use Questionnaire (AUDIT-C) 1. How often do you have a drink containing alcohol?: Never 3. How often do you have six or more drinks on one occasion?: Never Total Score: 0 ALLISON-7 AMB Questionnaire ALLISON-7 Date ALLISON - 7 assessed: 07/18/24 Feeling nervous, anxious, or on edge: 0 = Not at all Not being able to stop or control worryin = Not at all Worrying too much about different things: 0 = Not at all Trouble relaxin = Not at all Being so restless that it is hard to sit still: 0 = Not at all Becoming easily annoyed or irritable: 0 = Not at all Feeling afraid as if something awful might happen: 0 = Not at all Total ALLISON-7 score (0-4 normal; 5-9 mild; 10-14 moderate; 15-21 severe): 0 Source: Developed by Drs. Gopi Zhong, Dina Rojas, Yonas Reddy and colleagues, with an educational juanpablo from [employer]. Physical exam (Primary Care) Vital Signs: Last Vital Signs Pulse 77 07/18/24 12:37 BP 100/60 07/18/24 12:37 Pulse Ox 95 07/18/24 12:37 Oxygen Delivery Method Room Air 07/18/24 12:37 BMI result Body Mass Index 40.2 Tobacco/Smoking Status: Tobacco use Status Tobacco use date assessed 07/18/24 07/18/24 12:39 Patient Tobacco Use Status Tobacco use Unknown 07/18/24 12:39 Tobacco use type Cigarette 07/18/24 12:39 e-Cigarette/Vaping Use Never Used 07/18/24 12:39 Thrive Assessment: Date of Thrive Assessment Date Thrive assessed 07/18/24 07/18/24 12:50 Coding Level of Care Code Est Pt Level 4 (21111) Diagnoses Alcohol use disorder, severe, dependence F10.20 Fall W19.XXXA Encephalopathy chronic G93.49 Assessment & Plan Assessment & Plan (1) Alcohol use disorder, severe, dependence: Code(s): F10.20 - Alcohol dependence, uncomplicated Category: Medical (2) Fall: Code(s): W19.XXXA - Unspecified fall, initial encounter Category: Medical (3) Encephalopathy chronic: Code(s): G93.49 - Other encephalopathy Category: Medical Plan . Medications: New multivitamin (Daily-Carlito tablet) 1 tab PO DAILY 90 tabs 0RF Refilled thiamine HCl (vitamin B1) 100 mg PO DAILY 30 tabs 3RF
[2024-07-18 12:37] VITALS: BP 100/60; PULSE 77; O2SAT 95; BMI 40.2
--- OUTSIDE RECORDS SUMMARY | 2024-07-18 14:21 | XMS_ITS | Clinical Summary ---
Author Organization [facility] Address [address] [place] [address] [address] [place] [id number] Phone Care Team Providers Care Courtroom Reporter Name Role Phone Ortiz Deluca NP Primary Care Provider [phone] Allergies No known active allergies Medications risperiDONE (RisperDAL) 0.5 MG tablet 09/30/2021 Active omeprazole (PriLOSEC) [address] capsule 10/07/2021 Active naproxen (NAPROSYN) 500 MG tablet 10/23/2021 Active metoprolol tartrate 25 MG tablet 10/23/2021 Active metFORMIN (GLUCOPHAGE) 850 MG tablet 09/30/2021 Active LORazepam (ATIVAN) 0.5 MG tablet 10/07/2021 Active furosemide (LASIX) 20 MG tablet Take 30 mg by mouth 01/20/2021 Active FLUoxetine (PROzac) 40 MG capsule 09/30/2021 Active divalproex (DEPAKOTE) 250 MG EC tablet 10/23/2021 Active apixaban (ELIQUIS) 5 MG tablet Take 5 mg by mouth 07/19/2020 Active amLODIPine (NORVASC) 5 MG tablet 09/30/2021 Active allopurinol (ZYLOPRIM) 100 MG tablet Take 100 mg by mouth 01/12/2021 Active albuterol HFA (PROVENTIL HFA;VENTOLIN HFA) 108 (90 Base) MCG/ACT inhaler 09/30/2021 Active Active Problems Problem Noted Date Diagnosed Date Stage 3b chronic kidney disease 05/03/2022 Hypertensive disorder 10/27/2021 Chronic hypercapnic respiratory failure 10/28/19 Chronic diastolic heart failure 10/27/2021 Chronic bullous emphysema 10/27/2021 Atrial fibrillation 10/27/2021 Anoxic encephalopathy 10/27/2021 Stage 3a chronic kidney disease 10/27/2021 Tobacco dependence, continuous 10/27/2021 Cirrhosis (of liver) NOS 10/27/2021 Immunizations Name Administration Dates Next Due DT 03/04/1998 DTP 02/21/1986, 3,12/19/1981,10/23/1981,0 08/01/1981 Hep B, Adolescent or Pediatric 04/22/1999,1998,10/10/1997 MMR 02/15/1995,09/23/1982 OPV 12/22/1982,12/19/1981,10/23/1981 ,08/01/1981 Pfizer SARS-COV-2 10/13/2020 Social History Tobacco Use Types Packs/Day Years Used Date Smoking Tobacco: Never Smokeless Tobacco: Never Tobacco Cessation:Counseling Given: Not Answered Alcohol Use Standard Drinks/Week Comments Never 0 (1 standard drink = 0.6 oz pur e alcohol) Sex and Gender Information Value Date Recorded Sex Assigned at Not on file Legal Sex Male 4:58 PM EST Gender Identity Not on file Sexual Orientation Not on file Last Filed Vital Signs Vital Sign Reading Time Taken Comments Blood Pressure 121/80 05/03/2022 1:25 PM EST Pulse 79 05/03/2022 1:25 PM EST Temperature - - Respiratory Rate - - Oxygen Saturation 98% 05/03/2022 1:25 PM EST Inhaled Oxygen Concentration - - Weight 142 kg (312 lb 6.4 oz) 05/03/2022 1:25 PM EST Height - - Body Mass Index - - Plan of Treatment Health Maintenance Due Date Last Done Comments Pneumococcal Vaccine: Pediatrics (0 to 5 Years) and At-Risk Patients (6 to 64 Years) (1 of 2 - PCV) 1967 Colorectal Cancer Screening: Annual FOBT 2010 Colorectal Cancer Screening: Colonoscopy 2010 Colorectal Cancer Screening: Sigmoidoscopy 2010 Influenza Vaccine (#1) 2024 Hepatitis B Vaccine Aged Out 04/22/1999, 09/26/1998, 10/10/1997 No longer eligible based on patient's age to complete this topic Insurance [facility] [place] [address] MEDICARE [employer] MEDICARE [employer] Care Teams Courtroom Reporter Relationship Specialty Start Date End Date Ortiz Deluca NP [address] [place] [address] PCP - General Nurse Practitioner 10/27/21
--- OUTSIDE RECORDS SUMMARY | 2024-07-18 14:21 | XMS_ITS | Encounter Summary ---
Author Organization [employer] Address [address] [place] [address] Care Team Providers Care Stock Patcher Name Role Phone Jasbir Morocho MD Primary Care Provider [phone] Encounter Details Date Type Department Care Team (Late st Contact Info) Description 05/21/2024 Lab Requisition [facility] - Main Lab [address] [facility] [place] [address] Jasbir Morocho MD [address] [place] [address] Other meterman (current) drug therapy; Unspecified cirrhosis of liver (CMS/HCC); Unspecified dementia, unspecified severity, without behavioral disturbance, psychotic disturbance, mood disturbance, and anxiety (CMS/HCC); Chronic kidney disease, unspecified; Unspecified atrial fibrillation (CMS/HCC) Social History Tobacco Use Types Packs/Day Years Used Date Smoking Tobacco: Never Assessed Sex and Gender Information Value Date Recorded Sex Assigned at Not on file Gender Identity Not on file Sexual Orientation Not on file documented as of this encounter Plan of Treatment Not on file documented as of this encounter Procedures Procedure Name Priority Date/Time Associated Diagnosis Comments COMPLETE BLOOD COUNT Routine 05/21/2024 6:42 AM EST Unspecified cirrhosis of liver (CMS/HCC) Unspecified dementia, unspecified severity, without behavioral disturbance, psychotic disturbance, mood disturbance, and anxiety (CMS/HCC) Chronic kidney disease, unspecified Unspecified atrial fibrillation (CMS/HCC) Other meterman (current) drug therapy HEMOGLOBIN A1C Routine 05/21/2024 6:42 AM EST Unspecified cirrhosis of liver (CMS/HCC) Unspecified dementia, unspecified severity, without behavioral disturbance, psychotic disturbance, mood disturbance, and anxiety (CMS/HCC) Chronic kidney disease, unspecified Unspecified atrial fibrillation (CMS/HCC) Other meterman (current) drug therapy BASIC METABOLIC PANEL Routine 05/21/2024 6:42 AM EST Unspecified cirrhosis of liver (CMS/HCC) Unspecified dementia, unspecified severity, without behavioral disturbance, psychotic disturbance, mood disturbance, and anxiety (CMS/HCC) Chronic kidney disease, unspecified Unspecified atrial fibrillation (CMS/HCC) Other mcfp (current) drug therapy documented in this encounter Results * Hemoglobin A1c (05/21/2024 6:42 AM EST) Hemoglobin A1C 5.9 <6.5 % LAB CHEMISTRY METHOD 05/21/2024 12:30 PM EST [facility] Mean Bld Glu Estim. 123 mg/dL LAB CHEMISTRY METHOD 05/21/2024 12:30 PM [facility] Blood Venous blood specimen / Unknown Venipuncture / Unknown 05/21/2024 6:42 AM EST 05/21/2024 9:50 AM EST Jasbir Morocho MD LAB BLOOD ORDERABLES [facility] [address] [place] [address], * (ABNORMAL) Basic metabolic panel (05/21/2024 6:42 AM EST) Sodium 138 133 - 145 mmol/L LAB CHEMISTRY METHOD 05/21/2024 10:23 AM EST [facility] Potassium 4.3 3.5 - 5.5 mmol/L LAB CHEMISTRY METHOD 05/21/2024 10:23 AM EST [facility] Chloride 100 96 - 110 mmol/L LAB CHEMISTRY METHOD 05/21/2024 10:23 AM EST [facility] CO2 31 21 - 32 mmol/L LAB CHEMISTRY METHOD 05/21/2024 10:23 AM EST [facility] Anion Gap 7 3 - 11 LAB CHEMISTRY METHOD 05/21/2024 10:23 AM EST [facility] Glucose 105(H) 70 - 100 mg/dL LAB CHEMISTRY METHOD 05/21/2024 10:23 AM [facility] BUN 14 5 - 25 mg/dL LAB CHEMISTRY METHOD 05/21/2024 10:23 AM [facility] Creatinine 0.90 0.70 - 1.30 mg/dL LAB CHEMISTRY METHOD 05/21/2024 10:23 AM [facility] eGFR 96 >=60 mL/min/1. 73m2 LAB CHEMISTRY METHOD 05/21/2024 10:23 AM [facility] Comment:Calculation based on the??Chronic Kidney Disease Epidemiology Collaboration (CKD-EPI) equation refit??without adjustment for race. BUN/Creatinine Ratio 15.6 LAB CHEMISTRY METHOD 05/21/2024 10:23 AM [facility] Calcium 9.4 8.5 - 10.5 mg/dL LAB CHEMISTRY METHOD 05/21/2024 10:23 AM [facility] Blood Venous blood specimen / Unknown Venipuncture / Unknown 05/21/2024 6:42 AM EST 05/21/2024 9:50 AM EST Jasbir Morocho MD LAB BLOOD ORDERABLES [facility] [address] [place] [address], * (ABNORMAL) Complete blood count (05/21/2024 6:42 AM EST) WBC 12.7(H) 4.8 - 10.8 K/mcL LAB HEMETOLOGY METHOD 05/21/2024 10:07 AM [facility] RBC 3.70(L) 4.50 - 5.50 M/mcL LAB HEMETOLOGY METHOD 05/21/2024 10:07 AM [facility] Hemoglobin 10.7(L) 13.5 - 17.5 g/dL LAB HEMETOLOGY METHOD 05/21/2024 10:07 AM [facility] Hematocrit 34.1(L) 42.0 - 54.0 % LAB HEMETOLOGY METHOD 05/21/2024 10:07 AM [facility] MCV 93.4 79.0 - 98.0 FL LAB HEMETOLOGY METHOD 05/21/2024 10:07 AM [facility] MCH 29.3 27.0 - 32.0 pcg LAB HEMETOLOGY METHOD 05/21/2024 10:07 AM [facility] MCHC 31.4(L) 32.0 - 37.0 g/dL LAB HEMETOLOGY METHOD 05/21/2024 10:07 AM [facility] RDW 15.4(H) 11.0 - 15.0 % LAB HEMETOLOGY METHOD 05/21/2024 10:07 AM [facility] Platelets 238 130 - 400 K/mcL LAB HEMETOLOGY METHOD 05/21/2024 10:07 AM [facility] MPV 12.3(H) 7.0 - 11.0 FL LAB HEMETOLOGY METHOD 05/21/2024 10:07 AM [facility] NRBC 0.0 <1.0 % LAB HEMETOLOGY METHOD 05/21/2024 10:07 AM [facility] NRBC Absolute 0.00 <0.10 K/mcL LAB HEMETOLOGY METHOD 05/21/2024 10:07 AM [facility] Blood Venous blood specimen / Unknown Venipuncture / Unknown 05/21/2024 6:42 AM EST 05/21/2024 9:50 AM EST Jasbir Morocho MD LAB BLOOD ORDERABLES [facility] [address] [place] [address], documented in this encounter Visit Diagnoses Diagnosis Other meterman (current) drug therapy Unspecified cirrhosis of liver (CMS/HCC) Unspecified dementia, unspecified severity, without behavioral disturbance, psychotic disturbance, mood disturbance, and anxiety (CMS/HCC) Chronic kidney disease, unspecified Unspecified atrial fibrillation (CMS/HCC) documented in this encounter Care Teams Stock Patcher Relationship Specialty Start Date End Date Jasbir Morocho MD [address] [place] [address] PCP - General Family Medicine 05/22/24 documented as of this encounter
--- OUTSIDE RECORDS SUMMARY | 2024-07-18 14:21 | XMS_ITS | Encounter Summary ---
Author Organization [employer] Address [address] [place] [address] Care Team Providers Care Slicing Machine Operator Name Role Phone Jasbir Morocho MD Primary Care Provider + [phone] Encounter Details Date Type Department Care Team (Latest Contact Info) Description 05/28/2024 Lab Requisition [facility] Lab [address] [place] [address] Jasbir Morocho MD [address] [place] [address] Hepatic encephalopathy (CMS/HCC); Essential (primary) hypertension Social History Tobacco Use Types Packs/Day Years Used Date Smoking Tobacco: Never Assessed Sex and Gender Information Value Date Recorded Sex Assigned at Not on file Gender Identity Not on file Sexual Orientation Not on file documented as of this encounter Plan of Treatment Not on file documented as of this encounter Procedures Procedure Name Priority Date/Time Associated Diagnosis Comments BASIC METABOLIC PANEL Routine 05/29/2024 7:56 AM EST Hepatic encephalopathy (CMS/HCC) Essential (primary) hypertension documented in this encounter Results * (ABNORMAL) Basic metabolic panel (05/29/2024 7:56 AM EST) Sodium 134 133 - 145 mmol/L LAB CHEMISTRY METHOD 05/29/2024 1:18 PM EST [facility] LAB Potassium 4.9 3.5 - 5.5 mmol/L LAB CHEMISTRY METHOD 05/29/2024 1:18 PM EST [facility] LAB Chloride 96 96 - 110 mmol/L LAB CHEMISTRY METHOD 05/29/2024 1:18 PM EST [facility] LAB CO2 28 21 - 32 mmol/L LAB CHEMISTRY METHOD 05/29/2024 1:18 PM EST [facility] LAB Anion Gap 10 3 - 11 LAB CHEMISTRY METHOD 05/29/2024 1:18 PM [facility] LAB Glucose 122(H) 70 - 100 mg/dL LAB CHEMISTRY METHOD 05/29/2024 1:18 PM [facility] LAB BUN 26(H) 5 - 25 mg/dL LAB CHEMISTRY METHOD 05/29/2024 1:18 PM [facility] LAB Creatinine 1.61(H) 0.70 - 1.30 mg/dL LAB CHEMISTRY METHOD 05/29/2024 1:18 PM [facility] LAB eGFR 48(L) >=60 mL/min/1. 73m2 LAB CHEMISTRY METHOD 05/29/2024 1:18 PM [facility] LAB Comment:Calculation based on the??Chronic Kidney Disease Epidemiology Collaboration (CKD-EPI) equation refit??without adjustment for race. BUN/Creatinine Ratio 16.1 LAB CHEMISTRY METHOD 05/29/2024 1:18 PM [facility] LAB Calcium 10.4 8.5 - 10.5 mg/dL LAB CHEMISTRY METHOD 05/29/2024 1:18 PM [facility] LAB Blood Venous blood specimen / Unknown Venipuncture / Unknown 05/29/2024 7:56 AM EST 05/29/2024 11:51 AM EST Jasbir Morocho MD LAB BLOOD ORDERABLES [facility] LAB [address] [place] [address], documented in this encounter Visit Diagnoses Diagnosis Hepatic encephalopathy (CMS/HCC) Hepatic encephalopathy Essential (primary) hypertension Unspecified essential hypertension documented in this encounter Care Teams Slicing Machine Operator Relationship Specialty Start Date End Date Jasbir Morocho MD [address] [place] [address] PCP - General Family Medicine 05/22/24 documented as of this encounter
--- OUTSIDE RECORDS SUMMARY | 2024-07-18 14:21 | XMS_ITS | Encounter Summary ---
Author Organization [employer] Address [address] [place] [address] Care Team Providers Care Elementary School Teacher'S Aide Name Role Phone Jasbir Morocho MD Primary Care Provider [phone] Encounter Details Date Type Department Care Team (Latest Contact Info) Description 06/11/2024 Lab Requisition [facility] - Main Lab [address] [place] [address] Jasbir Morocho MD [address] [place] [address] Hepatic encephalopathy (CMS/HCC); Essential (primary) hypertension Social [...] Associated Diagnosis Comments COMPLETE BLOOD COUNT Routine 06/12/2024 7:15 AM EST Hepatic encephalopathy (CMS/HCC) Essential (primary) hypertension AMMONIA Routine 06/12/2024 7:15 AM EST Hepatic encephalopathy (CMS/HCC) Essential (primary) hypertension BASIC METABOLIC PANEL Routine 06/12/2024 7:15 AM EST Hepatic encephalopathy (CMS/HCC) Essential (primary) hypertension documented in this encounter Results * Ammonia (06/12/2024 7:15 AM EST) Ammonia 19 11 - 35 mcmol/L LAB CHEMISTRY METHOD 06/12/2024 8:57 AM EST [facility] Blood Venous blood specimen / Unknown Venipuncture / Unknown 06/12/2024 7:15 AM EST 06/12/2024 8:35 AM EST Jasbir Morocho MD LAB BLOOD ORDERABLES [facility] LAB [address] [place] [address], * (ABNORMAL) Basic metabolic panel (06/12/2024 7:15 AM EST) Sodium 139 133 - 145 mmol/L LAB CHEMISTRY METHOD 06/12/2024 9:04 AM [facility] LAB Potassium 4.5 3.5 - 5.5 mmol/L LAB CHEMISTRY METHOD 06/12/2024 9:04 AM [facility] LAB Chloride 100 96 - 110 mmol/L LAB CHEMISTRY METHOD 06/12/2024 9:04 AM [facility] LAB CO2 32 21 - 32 mmol/L LAB CHEMISTRY METHOD 06/12/2024 9:04 AM [facility] LAB Anion Gap 7 3 - 11 LAB CHEMISTRY METHOD 06/12/2024 9:04 AM [facility] LAB Glucose 92 70 - 100 mg/dL LAB CHEMISTRY METHOD 06/12/2024 9:04 AM [facility] LAB BUN 27(H) 5 - 25 mg/dL LAB CHEMISTRY METHOD 06/12/2024 9:04 AM [facility] LAB Creatinine 1.65(H) 0.70 - 1.30 mg/dL LAB CHEMISTRY METHOD 06/12/2024 9:04 AM [facility] LAB eGFR 46(L) >=60 mL/min/1. 73m2 LAB CHEMISTRY METHOD 06/12/2024 9:04 AM [facility] LAB Comment:Calculation based on the??Chronic Kidney Disease Epidemiology Collaboration (CKD-EPI) equation refit??without adjustment for race. BUN/Creatinine Ratio 16.4 LAB CHEMISTRY METHOD 06/12/2024 9:04 AM [facility] LAB Calcium 9.9 8.5 - 10.5 mg/dL LAB CHEMISTRY METHOD 06/12/2024 9:04 AM [facility] LAB Blood Venous blood specimen / Unknown Venipuncture / Unknown 06/12/2024 7:15 AM EST 06/12/2024 8:35 AM EST Jasbir Morocho MD LAB BLOOD ORDERABLES [facility] LAB [address] [place] [address], * (ABNORMAL) Complete blood count (06/12/2024 7:15 AM EST) WBC 11.3(H) 4.8 - 10.8 K/mcL LAB HEMETOLOGY METHOD 06/12/2024 8:51 AM [facility] LAB RBC 4.40(L) 4.50 - 5.50 M/mcL LAB HEMETOLOGY METHOD 06/12/2024 8:51 AM [facility] LAB Hemoglobin 12.7(L) 13.5 - 17.5 g/dL LAB HEMETOLOGY METHOD 06/12/2024 8:51 AM [facility] LAB Hematocrit 41.2(L) 42.0 - 54.0 % LAB HEMETOLOGY METHOD 06/12/2024 8:51 AM [facility] LAB MCV 94.5 79.0 - 98.0 FL LAB HEMETOLOGY METHOD 06/12/2024 8:51 AM [facility] LAB MCH 29.1 27.0 - 32.0 pcg LAB HEMETOLOGY METHOD 06/12/2024 8:51 AM [facility] LAB MCHC 30.8(L) 32.0 - 37.0 g/dL LAB HEMETOLOGY METHOD 06/12/2024 8:51 AM [facility] LAB RDW 14.4 11.0 - 15.0 % LAB HEMETOLOGY METHOD 06/12/2024 8:51 AM EST [facility] LAB Platelets 224 130 - 400 K/mcL LAB HEMETOLOGY METHOD 06/12/2024 8:51 AM EST [facility] LAB MPV 11.3(H) 7.0 - 11.0 FL LAB HEMETOLOGY METHOD 06/12/2024 8:51 AM EST [facility] LAB NRBC 0.0 <1.0 % LAB HEMETOLOGY METHOD 06/12/2024 8:51 AM EST [facility] LAB NRBC Absolute 0.00 <0.10 K/mcL LAB HEMETOLOGY METHOD 06/12/2024 8:51 AM [facility] LAB Blood Venous blood specimen / Unknown Venipuncture / Unknown 06/12/2024 7:15 AM EST 06/12/2024 8:35 AM EST Jasbir Morocho MD LAB BLOOD ORDERABLES [facility] LAB [address] [place] [address], documented in this encounter Visit Diagnoses Diagnosis Hepatic encephalopathy (CMS/HCC) Hepatic encephalopathy Essential (primary) hypertension Unspecified essential hypertension documented in this encounter Care Teams Elementary School Teacher'S Aide Relationship Specialty Start Date End Date Jasbir Morocho MD [address] [place] [address] PCP - General Family Medicine 05/22/24 documented as of this encounter
--- OUTSIDE RECORDS SUMMARY | 2024-07-18 14:21 | XMS_ITS | Encounter Summary ---
Author Organization [facility] Address [address] [place] [address] Care Team Providers Care Cotton Gin Yard Supervisor Name Role Phone Jasbir Morocho MD Primary Care Provider [phone] Encounter Details Date Type Department Care Team (Latest Contact Info) Description 05/29/2024 Lab Requisition [facility] - Main Lab [address] [place] [address] Jasbir Morocho MD [address] [place] [address] Acute kidney failure, unspecified (CMS/HCC); Hepatic encephalopathy (CMS/HCC); Essential (primary) hypertension Social [...] Procedure Name Priority Date/Time Associated Diagnosis Comments AMMONIA Routine 05/29/2024 10:49 AM EST Acute kidney failure, unspecified (CMS/HCC) Hepatic encephalopathy (CMS/HCC) Essential (primary) hypertension documented in this encounter Results * (ABNORMAL) Ammonia (05/29/2024 10:49 AM EST) Ammonia <10(L) 11 - 35 mcmol/L LAB CHEMISTRY METHOD 05/29/2024 2:59 PM EST [facility] LAB Blood Venous blood specimen / Unknown 05/29/2024 10:49 AM EST 05/29/2024 2:40 PM EST Jasbir Morocho MD LAB BLOOD ORDERABLES [facility] LAB [address] [place] [address], documented in this encounter Visit Diagnoses Diagnosis Acute kidney failure, unspecified (CMS/HCC) Acute kidney failure, unspecified Hepatic encephalopathy (CMS/HCC) Hepatic encephalopathy Essential (primary) hypertension Unspecified essential hypertension documented in this encounter Care Teams Cotton Gin Yard Supervisor Relationship Specialty Start Date End Date Jasbir Morocho MD [address] [place] [address] PCP - General Family Medicine 05/22/24 documented as of this encounter
--- OUTSIDE RECORDS SUMMARY | 2024-07-18 14:21 | XMS_ITS | Encounter Summary ---
Author Organization [employer] Address [address] [place] [address] Care Team Providers Care Garden Center Manager Name Role Phone Jasbir Morocho MD Primary Care Provider [phone] Encounter Details Date Type Department Care Team (Latest Contact Info) Description 06/18/[address] [facility] - Main Lab [address] [facility] [place] [address] Jasbir Morocho MD [address] [place] [id number] Hepatic encephalopathy (CMS/HCC) Social History Tobacco Use Types Packs/Day Years Used Date Smoking Tobacco: Never Assessed Sex and Gender Information Value Date Recorded Sex Assigned at Not on file Gender Identity Not on file Sexual Orientation Not on file documented as of this encounter Plan of Treatment Not on file documented as of this encounter Visit Diagnoses Diagnosis Hepatic encephalopathy (CMS/HCC) Hepatic encephalopathy documented in this encounter Care Teams Garden Center Manager Relationship Specialty Start Date End Date Jasbir Morocho MD [address] [place] [id number] PCP - General Family Medicine 05/22/24 documented as of this encounter
--- OUTSIDE RECORDS SUMMARY | 2024-07-18 14:21 | XMS_ITS | Encounter Summary ---
Author Organization [employer] Address [address] [place] [address] Care Team Providers Care Shrimp Boat Captain Name Role Phone Jasbir Morocho MD Primary Care Provider + [phone] Encounter Details Date Type Department Care Team (Late st Contact Info) Description 05/22/2024 Lab Requisition [facility] - Main Lab [address] [place] [address] Jasbir Morocho MD [address] [place] [address] Essential (primary) hypertension Social History Tobacco Use [...] Associated Diagnosis Comments COMPLETE BLOOD COUNT Routine 05/22/2024 5:26 AM EST Essential (primary) hypertension BASIC METABOLIC PANEL Routine 05/22/2024 5:26 AM EST Essential (primary) hypertension documented in this encounter Results * (ABNORMAL) Basic metabolic panel (05/22/2024 5:26 AM EST) Sodium 137 133 - 145 mmol/L LAB CHEMISTRY METHOD 05/22/2024 8:52 AM EST [facility] LAB Potassium 3.9 3.5 - 5.5 mmol/L LAB CHEMISTRY METHOD 05/22/2024 8:52 AM EST [facility] LAB Chloride 99 96 - 110 mmol/L LAB CHEMISTRY METHOD 05/22/2024 8:52 AM EST [facility] LAB CO2 32 21 - 32 mmol/L LAB CHEMISTRY METHOD 05/22/2024 8:52 AM [facility] LAB Anion Gap 6 3 - 11 LAB CHEMISTRY METHOD 05/22/2024 8:52 AM [facility] LAB Glucose 111(H) 70 - 100 mg/dL LAB CHEMISTRY METHOD 05/22/2024 8:52 AM [facility] LAB BUN 20 5 - 25 mg/dL LAB CHEMISTRY METHOD 05/22/2024 8:52 AM [facility] LAB Creatinine 1.01 0.70 - 1.30 mg/dL LAB CHEMISTRY METHOD 05/22/2024 8:52 AM [facility] LAB eGFR 84 >=60 mL/min/1. 73m2 LAB CHEMISTRY METHOD 05/22/2024 8:52 AM [facility] LAB Comment:Calculation based on the??Chronic Kidney Disease Epidemiology Collaboration (CKD-EPI) equation refit??without adjustment for race. BUN/Creatinine Ratio 19.8 LAB CHEMISTRY METHOD 05/22/2024 8:52 AM [facility] LAB Calcium 9.5 8.5 - 10.5 mg/dL LAB CHEMISTRY METHOD 05/22/2024 8:52 AM [facility] LAB Blood Venous blood specimen / Unknown Venipuncture / Unknown 05/22/2024 5:26 AM EST 05/22/2024 7:54 AM EST Jasbir Morocho MD LAB BLOOD ORDERABLES [facility] LAB [address] [place] [address], * (ABNORMAL) Complete blood count (05/22/2024 5:26 AM EST) WBC 12.2(H) 4.8 - 10.8 K/mcL LAB HEMETOLOGY METHOD 05/22/2024 8:39 AM [facility] LAB RBC 3.70(L) 4.50 - 5.50 M/[facility] LAB HEMETOLOGY METHOD 05/22/2024 8:39 AM [facility] LAB Hemoglobin 10.8(L) 13.5 - 17.5 g/dL LAB HEMETOLOGY METHOD 05/22/2024 8:39 AM [facility] LAB Hematocrit 34.9(L) 42.0 - 54.0 % LAB HEMETOLOGY METHOD 05/22/2024 8:39 AM [facility] LAB MCV 93.8 79.0 - 98.0 FL LAB HEMETOLOGY METHOD 05/22/2024 8:39 AM [facility] LAB MCH 29.0 27.0 - 32.0 pcg LAB HEMETOLOGY METHOD 05/22/2024 8:39 AM [facility] LAB MCHC 30.9(L) 32.0 - 37.0 g/dL LAB HEMETOLOGY METHOD 05/22/2024 8:39 AM [facility] LAB RDW 15.4(H) 11.0 - 15.0 % LAB HEMETOLOGY METHOD 05/22/2024 8:39 AM [facility] LAB Platelets 241 130 - 400 K/mcL LAB HEMETOLOGY METHOD 05/22/2024 8:39 AM [facility] LAB MPV 12.1(H) 7.0 - 11.0 FL LAB HEMETOLOGY METHOD 05/22/2024 8:39 AM [facility] LAB NRBC 0.0 <1.0 % LAB HEMETOLOGY METHOD 05/22/2024 8:39 AM [facility] LAB NRBC Absolute 0.00 <0.10 K/mcL LAB HEMETOLOGY METHOD 05/22/2024 8:39 AM [facility] LAB Blood Venous blood specimen / Unknown Venipuncture / Unknown 05/22/2024 5:26 AM EST 05/22/2024 7:54 AM EST Jasbir Morocho MD LAB BLOOD ORDERABLES [facility] [address] [place] [address], documented in this encounter Visit Diagnoses Diagnosis Essential (primary) hypertension Unspecified essential hypertension documented in this encounter Care Teams Shrimp Boat Captain Relationship Specialty Start Date End Date Jasbir Morocho MD [address] [place] [address] PCP - General Family Medicine 05/22/24 documented as of this encounter
--- OUTSIDE RECORDS SUMMARY | 2024-07-18 14:21 | XMS_ITS | Encounter Summary ---
Author Organization [employer] Address [address] [place] [address] Care Team Providers Care Government Auditor Name Role Phone Jasbir Morocho MD Primary Care Provider [phone] Encounter Details Date Type Department Care Team (Latest Contact Info) Description 06/04/2024 Lab Requisition [facility] - Main Lab [address] [place] [address] Jasbir Morocho MD [address] [place] [address] Hepatic encephalopathy (CMS/HCC); Essential (primary) hypertension Social [...] Associated Diagnosis Comments COMPLETE BLOOD COUNT Routine 06/05/2024 6:55 AM EST Hepatic encephalopathy (CMS/HCC) Essential (primary) hypertension AMMONIA Routine 06/05/2024 6:55 AM EST Hepatic encephalopathy (CMS/HCC) Essential (primary) hypertension BASIC METABOLIC PANEL Routine 06/05/2024 6:55 AM EST Hepatic encephalopathy (CMS/HCC) Essential (primary) hypertension documented in this encounter Results * Ammonia (06/05/2024 6:55 AM EST) Ammonia 32 11 - 35 mcmol/L LAB CHEMISTRY METHOD 06/05/2024 8:27 AM EST [facility] Blood Venous blood specimen / Unknown Venipuncture / Unknown 06/05/2024 6:55 AM EST 06/05/2024 8:01 AM EST Jasbir Morocho MD LAB BLOOD ORDERABLES [facility] LAB [address] [place] [address], * (ABNORMAL) Basic metabolic panel (06/05/2024 6:55 AM EST) Sodium 138 133 - 145 mmol/L LAB CHEMISTRY METHOD 06/05/2024 9:18 AM [facility] LAB Potassium 4.5 3.5 - 5.5 mmol/L LAB CHEMISTRY METHOD 06/05/2024 9:18 AM [facility] LAB Chloride 100 96 - 110 mmol/L LAB CHEMISTRY METHOD 06/05/2024 9:18 AM [facility] LAB CO2 33(H) 21 - 32 mmol/L LAB CHEMISTRY METHOD 06/05/2024 9:18 AM [facility] LAB Anion Gap 5 3 - 11 LAB CHEMISTRY METHOD 06/05/2024 9:18 AM [facility] LAB Glucose 109(H) 70 - 100 mg/dL LAB CHEMISTRY METHOD 06/05/2024 9:18 AM [facility] LAB BUN 31(H) 5 - 25 mg/dL LAB CHEMISTRY METHOD 06/05/2024 9:18 AM [facility] LAB Creatinine 1.81(H) 0.70 - 1.30 mg/dL LAB CHEMISTRY METHOD 06/05/2024 9:18 AM [facility] LAB eGFR 41(L) >=60 mL/min/1. 73m2 LAB CHEMISTRY METHOD 06/05/2024 9:18 AM [facility] LAB Comment:Calculation based on the??Chronic Kidney Disease Epidemiology Collaboration (CKD-EPI) equation refit??without adjustment for race. BUN/Creatinine Ratio 17.1 LAB CHEMISTRY METHOD 06/05/2024 9:18 AM [facility] LAB Calcium 9.7 8.5 - 10.5 mg/dL LAB CHEMISTRY METHOD 06/05/2024 9:18 AM [facility] LAB Blood Venous blood specimen / Unknown Venipuncture / Unknown 06/05/2024 6:55 AM EST 06/05/2024 8:41 AM EST Jasbir Morocho MD LAB BLOOD ORDERABLES [facility] LAB [address] [place] [address], * (ABNORMAL) Complete blood count (06/05/2024 6:55 AM EST) WBC 10.5 4.8 - 10.8 K/mcL LAB HEMETOLOGY METHOD 06/05/2024 8:59 AM [facility] LAB RBC 4.10(L) 4.50 - 5.50 M/mcL LAB HEMETOLOGY METHOD 06/05/2024 8:59 AM [facility] LAB Hemoglobin 12.2(L) 13.5 - 17.5 g/dL LAB HEMETOLOGY METHOD 06/05/2024 8:59 AM [facility] LAB Hematocrit 39.5(L) 42.0 - 54.0 % LAB HEMETOLOGY METHOD 06/05/2024 8:59 AM [facility] LAB MCV 95.6 79.0 - 98.0 FL LAB HEMETOLOGY METHOD 06/05/2024 8:59 AM [facility] LAB MCH 29.5 27.0 - 32.0 pcg LAB HEMETOLOGY METHOD 06/05/2024 8:59 AM [facility] LAB MCHC 30.9(L) 32.0 - 37.0 g/dL LAB HEMETOLOGY METHOD 06/05/2024 8:59 AM [facility] LAB RDW 14.8 11.0 - 15.0 % LAB HEMETOLOGY METHOD 06/05/2024 8:59 AM EST [facility] LAB Platelets 281 130 - 400 K/mcL LAB HEMETOLOGY METHOD 06/05/2024 8:59 AM EST [facility] MPV 11.5(H) 7.0 - 11.0 FL LAB HEMETOLOGY METHOD 06/05/2024 8:59 AM EST [facility] NRBC 0.0 <1.0 % LAB HEMETOLOGY METHOD 06/05/2024 8:59 AM EST [facility] LAB NRBC Absolute 0.00 <0.10 K/mcL LAB HEMETOLOGY METHOD 06/05/2024 8:59 AM [facility] LAB Blood Venous blood specimen / Unknown Venipuncture / Unknown 06/05/2024 6:55 AM EST 06/05/2024 8:42 AM EST Jasbir Morocho MD LAB BLOOD ORDERABLES [facility] [address] [place] [address], documented in this encounter Visit Diagnoses Diagnosis Hepatic encephalopathy (CMS/HCC) Hepatic encephalopathy Essential (primary) hypertension Unspecified essential hypertension documented in this encounter Care Teams Government Auditor Relationship Specialty Start Date End Date Jasbir Morocho MD [address] [place] [address] PCP - General Family Medicine 05/22/24 documented as of this encounter
--- OUTSIDE RECORDS SUMMARY | 2024-07-18 14:21 | XMS_ITS | Clinical Summary ---
Author Organization [address] Address [address] [place] [phone] Phone Care Team Providers Care Bobtail Driver Name Role Phone Jasbir Morocho MD Primary Care Provider Encounters Date Type Department Care Team Description 06/18/2024 Lab Requisition [facility] Lab [address] [place] [phone] Jasbir Morocho MD Hepatic encephalopathy (CMS/HCC) 06/11/2024 Lab Requisition [facility] Lab [address] [place] [phone] Jasbir Morocho MD Hepatic encephalopathy (CMS/HCC); Essential (primary) hypertension 06/04/2024 Lab Requisition [facility] Lab [address] [place] [phone] Jasbir Morocho MD Hepatic encephalopathy (CMS/HCC); Essential (primary) hypertension 05/29/2024 Lab Requisition [facility] Lab [address] [place] [phone] Jasbir Morocho MD Acute kidney failure, unspecified (CMS/HCC); Hepatic encephalopathy (CMS/HCC); Essential (primary) hypertension 05/28/2024 Lab Requisition [facility] Lab [address] [place] [phone] Jasbir Morocho MD Hepatic encephalopathy (CMS/HCC); Essential (primary) hypertension 05/22/2024 Lab Requisition [facility] Main Lab [address] [place] [phone] Jasbir Morocho MD Essential (primary) hypertension 05/21/2024 Lab Requisition [facility] Main Lab 299 [facility] [place] [phone] Jasbir Morocho MD Other terminal operations supervisor (current) drug therapy; Unspecified cirrhosis of liver (CMS/HCC); Unspecified dementia, unspecified severity, without behavioral disturbance, psychotic disturbance, mood disturbance, and anxiety (CMS/HCC); Chronic kidney disease, unspecified; Unspecified atrial fibrillation (CMS/HCC) from Last 3 Months Social History Tobacco Use Types Packs/Day Years Used Date Smoking Tobacco: Never Assessed Sex and Gender Information Value Date Recorded Sex Assigned at Not on file Gender Identity Not on file Sexual Orientation Not on file Plan of Treatment Health Maintenance Due Date Last Done Comments Pneumococcal Vaccine: Pediatrics (0 to 5 Years) and At-Risk Patients (6 to 64 Years) (1 of 2 - PCV) 1967 Hepatitis A Vaccines (1 of 2 - Risk 2-dose series) 02/08/1980 DTaP,Tdap,and Td Vaccines (7 - Tdap) 03/04/2008 03/04/1998, 02/21/1986, 12/22/1982, Additional history exists Zoster Vaccines (1 of 2) 2011 Hepatitis B Vaccines (1 of 3 - Risk 3-dose series) 2021 04/22/1999, 09/26/1998, 10/10/1997 RSV Immunization Patients 60+ Years Old (1 - Risk 60-74 years 1-dose series) 2021 Cholesterol Screening (Lipid Panel) 05/30/2022 Colorectal Cancer Screening: Colonoscopy 05/30/2022 Depression Screening 05/30/2022 HIV Screening 05/30/2022 Hepatitis C Screening 05/30/2022 Medicare Annual Wellness Visit 05/30/2022 Social Influencers of Health Screening 05/30/2022 COVID-19 Vaccine ( season) 2024 10/13/2020 Influenza Vaccine (#1) 2024 Hypertension/CHF/CAD Annual BMP Blood Test 06/12/2025 06/12/2024, 06/05/2024, 05/29/2024, Additional history exists IPV Vaccines Completed 12/22/1982, 11/26, 10/23/1981, Additional history exists MMR Vaccines Aged Out 02/15/1995, 09/23/1982 No lo nger eligible based on patient's age to complete this topic HIB Vaccines Aged Out No longer eligi ble based on patient's age to complete this topic HPV Vaccines Aged Out No longer eligi ble based on patient's age to complete this topic Meningococcal ACWY Vaccine Aged Out N o longer eligible based on patient's age to complete this topic RSV Immunization Patients Under 20 months Aged Out No longer eligible based on patient's age to complete this topic Varicella Vaccines Aged Out No longer eligible based on patient's age to complete this topic Procedures Procedure Name Priority Date/Time Associated Diagnosis Comments AMMONIA Routine 06/12/2024 7:15 AM EST Hepatic encephalopathy (CMS/HCC) Essential (primary) hypertension BASIC METABOLIC PANEL Routine 06/12/2024 7:15 AM EST Hepatic encephalopathy (CMS/HCC) Essential (primary) hypertension COMPLETE BLOOD COUNT Routine 06/12/2024 7:15 AM EST Hepatic encephalopathy (CMS/HCC) Essential (primary) hypertension AMMONIA Routine 06/05/2024 6:55 AM EST Hepatic encephalopathy (CMS/HCC) Essential (primary) hypertension BASIC METABOLIC PANEL Routine 06/05/2024 6:55 AM EST Hepatic encephalopathy (CMS/HCC) Essential (primary) hypertension COMPLETE BLOOD COUNT Routine 06/05/2024 6:55 AM EST Hepatic encephalopathy (CMS/HCC) Essential (primary) hypertension AMMONIA Routine 05/29/2024 10:49 AM EST Acute kidney failure, unspecified (CMS/HCC) Hepatic encephalopathy (CMS/HCC) Essential (primary) hypertension BASIC METABOLIC PANEL Routine 05/29/2024 7:56 AM EST Hepatic encephalopathy (CMS/HCC) Essential (primary) hypertension BASIC METABOLIC PANEL Routine 05/22/2024 5:26 AM EST Essential (primary) hypertension COMPLETE BLOOD COUNT Routine 05/22/2024 5:26 AM EST Essential (primary) hypertension HEMOGLOBIN A1C Routine 05/21/2024 6:42 AM EST Unspecified cirrhosis of liver (CMS/HCC) Unspecified dementia, unspecified severity, without behavioral disturbance, psychotic disturbance, mood disturbance, and anxiety (CMS/HCC) Chronic kidney disease, unspecified Unspecified atrial fibrillation (CMS/HCC) Other terminal operations supervisor (current) drug therapy BASIC METABOLIC PANEL Routine 05/21/2024 6:42 AM EST Unspecified cirrhosis of liver (CMS/HCC) Unspecified dementia, unspecified severity, without behavioral disturbance, psychotic disturbance, mood disturbance, and anxiety (CMS/HCC) Chronic kidney disease, unspecified Unspecified atrial fibrillation (CMS/HCC) Other terminal operations supervisor (current) drug therapy COMPLETE BLOOD COUNT Routine 05/21/2024 6:42 AM EST Unspecified cirrhosis of liver (CMS/HCC) Unspecified dementia, unspecified severity, without behavioral disturbance, psychotic disturbance, mood disturbance, and anxiety (CMS/HCC) Chronic kidney disease, unspecified Unspecified atrial fibrillation (CMS/HCC) Other terminal operations supervisor (current) drug therapy from Last 3 Months Results * (ABNORMAL) Complete blood count (06/12/2024 7:15 AM EST) Only the most recent of4 resultswithin the time period is included. WBC 11.3(H) 4.8 - 10.8 K/mcL LAB HEMETOLOGY METHOD 06/12/2024 8:51 AM [facility] LAB RBC 4.40(L) 4.50 - 5.50 M/[facility] LAB HEMETOLOGY METHOD 06/12/2024 8:51 AM [facility] LAB Hemoglobin 12.7(L) 13.5 - 17.5 g/dL LAB HEMETOLOGY METHOD 06/12/2024 8:51 AM [facility] LAB Hematocrit 41.2(L) 42.0 - 54.0 % LAB HEMETOLOGY METHOD 06/12/2024 8:51 AM [facility] LAB MCV 94.5 79.0 - 98.0 FL LAB HEMETOLOGY METHOD 06/12/2024 8:51 AM EST [facility] LAB MCH 29.1 27.0 - 32.0 pcg LAB HEMETOLOGY METHOD 06/12/2024 8:51 AM EST [facility] LAB MCHC 30.8(L) 32.0 - 37.0 g/dL LAB HEMETOLOGY METHOD 06/12/2024 8:51 AM EST [facility] LAB RDW 14.4 11.0 - 15.0 % LAB HEMETOLOGY METHOD 06/12/2024 8:51 AM EST [facility] LAB Platelets 224 130 - 400 K/mcL LAB HEMETOLOGY METHOD 06/12/2024 8:51 AM [facility] LAB MPV 11.3(H) 7.0 - 11.0 FL LAB HEMETOLOGY METHOD 06/12/2024 8:51 AM EST [facility] LAB NRBC 0.0 <1.0 % LAB HEMETOLOGY METHOD 06/12/2024 8:51 AM EST [facility] LAB NRBC Absolute 0.00 <0.10 K/mcL LAB HEMETOLOGY METHOD 06/12/2024 8:51 AM [facility] LAB Blood Venous blood specimen / Unknown Venipuncture / Unknown 06/12/2024 7:15 AM EST 06/12/2024 8:35 AM EST Jasbir Morocho MD LAB BLOOD ORDERABLES [facility] LAB [address] [place] [address], * Ammonia (06/12/2024 7:15 AM EST) Only the most recent of3 resultswithin the time period is included. Ammonia 19 11 - 35 mcmol/L LAB CHEMISTRY METHOD 06/12/2024 8:57 AM EST [facility] LAB Blood Venous blood specimen / Unknown Venipuncture / Unknown 06/12/2024 7:15 AM EST 06/12/2024 8:35 AM EST Jasbir Morocho MD LAB BLOOD ORDERABLES [facility] LAB [address] [place] [address], * (ABNORMAL) Basic metabolic panel (06/12/2024 7:15 AM EST) Only the most recent of5 resultswithin the time period is included. Sodium 139 133 - 145 mmol/L LAB CHEMISTRY METHOD 06/12/2024 9:04 AM [facility] LAB Potassium 4.5 3.5 - 5.5 mmol/L LAB CHEMISTRY METHOD 06/12/2024 9:04 AM [facility] LAB Chloride 100 96 - 110 mmol/L LAB CHEMISTRY METHOD 06/12/2024 9:04 AM [facility] LAB CO2 32 21 - 32 mmol/L LAB CHEMISTRY METHOD 06/12/2024 9:04 AM [facility] LAB Anion Gap 7 3 - 11 LAB CHEMISTRY METHOD 06/12/2024 9:04 AM [facility] LAB Glucose 92 70 - 100 mg/dL LAB CHEMISTRY METHOD 06/12/2024 9:04 AM [facility] LAB BUN 27(H) 5 - 25 mg/dL LAB CHEMISTRY METHOD 06/12/2024 9:04 AM [facility] LAB Creatinine 1.65(H) 0.70 - 1.30 mg/dL LAB CHEMISTRY METHOD 06/12/2024 9:04 AM [facility] LAB eGFR 46(L) >=60 mL/min/1. 73m2 LAB CHEMISTRY METHOD 06/12/2024 9:04 AM [facility] LAB Comment:Calculation based on the??Chronic Kidney Disease Epidemiology Collaboration (CKD-EPI) equation refit??without adjustment for race. BUN/Creatinine Ratio 16.4 LAB CHEMISTRY METHOD 06/12/2024 9:04 AM EST [facility] LAB Calcium 9.9 8.5 - 10.5 mg/dL LAB CHEMISTRY METHOD 06/12/2024 9:04 AM EST [facility] LAB Blood Venous blood specimen / Unknown Venipuncture / Unknown 06/12/2024 7:15 AM EST 06/12/2024 8:35 AM EST Jasbir Morocho MD LAB BLOOD ORDERABLES [facility] LAB [address] [place] [address], [place] [phone] * Hemoglobin A1c (05/21/2024 6:42 AM EST) Hemoglobin A1C 5.9 <6.5 % LAB CHEMISTRY METHOD 05/21/2024 12:30 PM EST [facility] LAB Mean Bld Glu Estim. 123 mg/dL LAB CHEMISTRY METHOD 05/21/2024 12:30 PM EST [facility] LAB Blood Venous blood specimen / Unknown Venipuncture / Unknown 05/21/2024 6:42 AM EST 05/21/2024 9:50 AM EST Jasbir Morocho MD LAB BLOOD ORDERABLES [facility] LAB [address] [place] [address], [place] [phone] from Last 3 Months Care Teams Bobtail Driver Relationship Specialty Start Date End Date Jasbir Morocho MD [address] [place] [address] PCP - General Family Medicine 05/22/24
== END 2024-07-18 13:35 | disposition home or self-care (01) ==
PROVIDERS: Visit Provider Nurse Practitioner Family
DX: F10.20 Alcohol dependence, uncomplicated (principal); W19.XXXA Unspecified fall, initial encounter; G93.49 Other encephalopathy; Z23 Encounter for immunization

== ENCOUNTER → 2024-07-18 12:29 | Outpatient (BNVA) | payer MEDICARE, OTHER, MEDICAID, SELFPAY | PROVIDERS: Visit Provider Nurse Practitioner Family | DX: Z23 Encounter for immunization (principal); F10.20 Alcohol dependence, uncomplicated; W19.XXXA Unspecified fall, initial encounter; G93.49 Other encephalopathy | CPT/HCPCS: 90471; 90656; 99212 ==

== ENCOUNTER 2025-03-30 01:33 | Emergency (ER) | payer MEDICARE, OTHER, MEDICAID, SELFPAY ==
[2025-03-30] VITALS (16 sets, daily range): BP systolic 90–124; BP diastolic 47–75; PULSE 61–73; RESP 16–20; TEMP -17.7–36.8; O2SAT 84–99; BMI 41.4
--- NOTE | ~2025-03-30 | CT_ITS ---
CLINICAL HISTORY: Fall; Head Strike; Anticoagulated CT head without contrast Comparison: 05/10/2024 06:40 PM EST: CTSR: CT HEAD WITHOUT IV CONTRAST and 04/06/2024 Findings: No new intra-axial mass, midline shift, hydrocephalus, or acute hemorrhage. No significant atrophy-like change or white matter disease. There is no sinus or mastoid fluid. The orbits are within normal limits. No skull fracture. IMPRESSION: 1. No acute intracranial findings. This document has been electronically signed by: Jasbir Proctor MD on 03/30/2025 08:48:34
--- NOTE | ~2025-03-30 | CT_ITS ---
CLINICAL HISTORY: Fall; Head Strike; Anticoagulated --- Additional Notes or Special Instructions: Labs @ 03:50; Labs elevated, messaged provider @ 0500, changed to without; Pt could not tolerate scan, needs to be medicated, messaged RN @ [phone] CT cervical spine without contrast Comparison: 05/10/2024 06:40 PM EST: CT CONTRAST, 04/06/2024 02:14 AM EDT: CT and 11/28/2023 Findings: Vertebral alignment is within normal limits. No significant degenerative change. No acute fractures or dislocations. No acute findings on limited view of the intracranial contents. No cervical fluid collections or masses. No consolidation or effusion at the lung apices. IMPRESSION: No acute findings. This document has been electronically signed by: Jasbir Proctor MD on 03/30/2025 08:48:41
--- NOTE | ~2025-03-30 | CT_ITS ---
CLINICAL HISTORY: Fall; Trauma; Right Side Tenderness CT abdomen and pelvis without contrast Comparison: 05/10/2024 Findings: No consolidation or effusion. The gallbladder and solid organs are within normal limits. No renal stones. No bowel obstruction, pneumoperitoneum, or pneumatosis. Pelvic contents unremarkable. Normal appendix. The bones are intact. IMPRESSION: No acute findings. This document has been electronically signed by: Jasbir Proctor MD on 03/30/2025 08:36:58
--- NOTE | ~2025-03-30 | XR_ITS ---
CLINICAL HISTORY: low oxygen saturations 1 view chest x-ray Comparison: 05/18/2024 Findings: The lungs are clear. Heart size is normal. No acute fracture. IMPRESSION: 1. No acute findings. This document has been electronically signed by: Jasbir Proctor MD on 03/30/2025 14:12:11
[2025-03-30 02:09] LABS: MANUAL DIFF FLAG NO
[2025-03-30 02:15] LABS: Hematocrit 37.8 % (42.0-52.0); Hemoglobin 12.7 g/dl (14.0-18.0); Imm Gran Abs Auto 0.04 X10*3/uL (0.00-0.03); Imm Gran Pct Auto 0.4 % (0.0-0.4); Lymphocytes Absolute Auto 3.0 X10*3/uL (1.2-4.9); Mean Corpuscular HGB Conc 33.6 g/dl (31.0-36.0); Mean Corpuscular Hemoglobin 29.6 pg (27.0-33.0); Mean Corpuscular Volume 88.1 fL (80.0-98.0); NRBC Abs Auto 0.000 X10*3/uL (0.0-0.012); NRBC Pct Auto 0.0 /100WBC (0.0-0.2); Platelet Count 225 X10*3/uL (160-400); Red Blood Count 4.29 X10*6/uL (4.60-5.80); White Blood Count 10.4 X10*3/uL (4.8-10.8)
--- NOTE | 2025-03-30 02:18 | PC.NURSE ---
pt reports trying to get out of his wheelchair a couple days ago and used his nightstand and bathroom door to lift out, when he attempted this the bathroom door swung open causing him to fall on his left side, pain and stiffness increasing over the last couple days. witnessed by pt , no LOC. Pt called ambulance today. Pt reports pain on left side of neck and back at a 7/10.
[2025-03-30 02:42] LABS: Alanine Aminotransferase < 6 U/L (0-40); Albumin Level 3.6 g/dL (3.5-5.0); Alkaline Phosphatase 88 U/L (39-117); Anion Gap 14 (12-20); Aspartate Amino Transferase 19 U/L (5-37); Blood Urea Nitrogen 21 mg/dL (9-16); Calcium 9.0 mg/dL (8.4-10.2); Carbon Dioxide 26 mmol/L (22-29); Chloride 98 mmol/L (96-108); Creatinine Clr Calc Pharmacy 62.6; Estimated Glomerular Filt Rate 42; Potassium 3.2 mmol/L (3.3-5.1); Sodium 135 mmol/L (135-145); Total Protein 7.1 g/dL (6.5-8.0)
--- OUTSIDE RECORDS SUMMARY | 2025-03-30 02:45 | XMS_ITS | Clinical Summary ---
Author Organization [facility] Address [address] [place] [address] [place] [phone] Phone Care Team Providers Care Almond Huller Name Role Phone Ortiz Deluca NP Primary Care Provider [phone] Allergies No known active allergies Medications risperiDONE [...] 10/27/2021 Cirrhosis (of liver) NOS 10/27/2021 Immunizations Immunization Administration Dates Next Due DT 03/04/1998 DTP [...] Due Date Last Done Comments Pneumococcal Vaccine: 50+ Years (1 of 2 - PCV) 02/08/1980 Colorectal Cancer Screening: Annual FOBT 2010 Colorectal Cancer Screening: Colonoscopy 2010 Colorectal Cancer Screening: Sigmoidoscopy 2010 Influenza Vaccine (#1) 2025 Hepatitis B Vaccine Aged Out 04/22/1999, 09/26/1998, 10/10/1997 No longer eligible based on patient's age to complete this topic Insurance Medicare Medicare Care Teams Almond Huller Relationship Specialty Start Date End Date Ortiz Deluca NP [address] [place], [place] [phone] PCP - General Nurse Practitioner 10/27/21
--- OUTSIDE RECORDS SUMMARY | 2025-03-30 02:45 | XMS_ITS | Encounter Summary ---
Author Organization [employer] Address [address] [place] [address] Care Team Providers Care Client Relationship Executive Name Role Phone Jasbir Morocho MD Primary Care Provider [phone] Encounter Details Date Type Department Care Team (Late st Contact Info) Description 05/21/2024 Lab Requisition [facility] Lab [address] [facility] [place] [address] Jasbir Morocho MD [address] [place], [place] [phone] Other usp (current) drug therapy; Unspecified cirrhosis of liver (CMS/HCC V24, CMS/HCC V28); Unspecified dementia, unspecified severity, without behavioral disturbance, psychotic disturbance, mood disturbance, and anxiety (CMS/HCC V24, CMS/HCC V28); Chronic kidney disease, unspecified; Unspecified atrial fibrillation (CMS/HCC V24, CMS/HCC V28) Social History Tobacco Use Types Packs/Day Years Used Date Smoking Tobacco: Never Assessed Sex and Gender Information Value Date Recorded Sex Assigned at Not on file Legal Sex Male 6:17 AM EST Gender Identity Not on file Sexual [...] disease, unspecified Unspecified atrial fibrillation (CMS/HCC) Other usp (current) drug therapy HEMOGLOBIN A1C Routine 05/21/2024 6:42 AM EST Unspecified cirrhosis of liver (CMS/HCC) Unspecified dementia, unspecified severity, without behavioral disturbance, psychotic disturbance, mood disturbance, and anxiety (CMS/HCC) Chronic kidney disease, unspecified Unspecified atrial fibrillation (CMS/HCC) Other usp (current) drug therapy BASIC METABOLIC PANEL Routine 05/21/2024 6:42 AM EST Unspecified cirrhosis of liver (CMS/HCC) Unspecified dementia, unspecified severity, without behavioral disturbance, psychotic disturbance, mood disturbance, and anxiety (CMS/HCC) Chronic kidney disease, unspecified Unspecified atrial fibrillation (CMS/HCC) Other exterminator termite (current) drug therapy documented in this encounter Results * Hemoglobin A1c (05/21/2024 6:42 AM EST) Pathologist [facility] Hemoglobin A1C 5.9 <6.5 % LAB CHEMISTRY METHOD 05/21/2024 12:30 PM EST [facility] LAB Mean Bld Glu Estim. 123 mg/dL LAB CHEMISTRY METHOD 05/21/2024 12:30 PM EST [facility] LAB Blood Venous blood specimen / Unknown Venipuncture / Unknown 05/21/2024 6:42 AM EST 05/21/2024 9:50 AM EST us Jasbir Morocho MD LAB BLOOD ORDERABLES Final R esult [facility] LAB [address] [place] [address], * (ABNORMAL) Basic metabolic panel (05/21/2024 6:42 AM EST) Pathologist [facility] Sodium 138 133 - 145 mmol/L LAB CHEMISTRY METHOD 05/21/2024 10:23 AM EST [facility] LAB Potassium 4.3 3.5 - 5.5 mmol/L LAB CHEMISTRY METHOD 05/21/2024 10:23 AM EST [facility] LAB Chloride 100 96 - 110 mmol/L LAB CHEMISTRY METHOD 05/21/2024 10:23 AM EST [facility] LAB CO2 31 21 - 32 mmol/L LAB CHEMISTRY METHOD 05/21/2024 10:[address] [facility] LAB Anion Gap 7 3 - 11 LAB CHEMISTRY METHOD 05/21/2024 10:[address] [facility] LAB Glucose 105(H) 70 - 100 mg/dL LAB CHEMISTRY METHOD 05/21/2024 10:[address] [facility] LAB BUN 14 5 - 25 mg/dL LAB CHEMISTRY METHOD 05/21/2024 10:[address] [facility] LAB Creatinine 0.90 0.70 - 1.30 mg/dL LAB CHEMISTRY METHOD 05/21/2024 10:[address] [facility] LAB eGFR 96 >=60 mL/min/1. 73m2 LAB CHEMISTRY METHOD 05/21/2024 10:[address] [facility] LAB Comment:Calculation based on the Chronic Kidney Disease Epidemiology Collaboration (CKD-EPI) equation refit without adjustment for race. BUN/Creatinine Ratio 15.6 LAB CHEMISTRY METHOD 05/21/2024 10:[address] [facility] LAB Calcium 9.4 8.5 - 10.5 mg/dL LAB CHEMISTRY METHOD 05/21/2024 10:[address] [facility] LAB Blood Venous blood specimen / Unknown Venipuncture / Unknown 05/21/2024 6:42 AM EST 05/21/2024 9:50 AM EST Jasbir Morocho MD LAB BLOOD ORDERABLES Final R esult [facility] LAB [address] [place] [address], * (ABNORMAL) Complete blood count (05/21/2024 6:42 AM EST) WBC 12.7(H) 4.8 - 10.8 K/mcL LAB HEMETOLOGY METHOD 05/21/2024 10:[address] [facility] LAB RBC 3.70(L) 4.50 - 5.50 M/mcL LAB HEMETOLOGY METHOD 05/21/2024 10:[address] [facility] LAB Hemoglobin 10.7(L) 13.5 - 17.5 g/dL LAB HEMETOLOGY METHOD 05/21/2024 10:[address] [facility] LAB Hematocrit 34.1(L) 42.0 - 54.0 % LAB HEMETOLOGY METHOD 05/21/2024 10:[address] [facility] LAB MCV 93.4 79.0 - 98.0 FL LAB HEMETOLOGY METHOD 05/21/2024 10:[address] [facility] LAB MCH 29.3 27.0 - 32.0 pcg LAB HEMETOLOGY METHOD 05/21/2024 10:[address] [facility] LAB MCHC 31.4(L) 32.0 - 37.0 g/dL LAB HEMETOLOGY METHOD 05/21/2024 10:[address] [facility] LAB RDW 15.4(H) 11.0 - 15.0 % LAB HEMETOLOGY METHOD 05/21/2024 10:[address] [facility] LAB Platelets 238 130 - 400 K/mcL LAB HEMETOLOGY METHOD 05/21/2024 10:[address] [facility] LAB MPV 12.3(H) 7.0 - 11.0 FL LAB HEMETOLOGY METHOD 05/21/2024 10:[address] [facility] LAB NRBC 0.0 <1.0 % LAB HEMETOLOGY METHOD 05/21/2024 10:[address] [facility] LAB NRBC Absolute 0.00 <0.10 K/mcL LAB HEMETOLOGY METHOD 05/21/2024 10:[address] [facility] LAB Blood Venous blood specimen / Unknown Venipuncture / Unknown 05/21/2024 6:42 AM EST 05/21/2024 9:50 AM EST Jasbir Morocho MD LAB BLOOD ORDERABLES Final R esult [facility] LAB [address] [place] [address], documented in this encounter Visit Diagnoses Diagnosis Other exterminator termite (current) drug therapy Unspecified cirrhosis of liver ([facility] V24, [facility] V28) Unspecified dementia, unspecified severity, without behavioral disturbance, psychotic disturbance, mood disturbance, and anxiety ([facility] V24, [facility] V28) Chronic kidney disease, unspecified Unspecified atrial fibrillation ([facility] V24, [facility] V28) documented in this encounter Care Teams Client Relationship Executive Relationship Specialty Start Date End Date Jasbir Morocho MD [address] [place] [address] PCP - General Family Medicine 05/22/24 documented as of this encounter
--- OUTSIDE RECORDS SUMMARY | 2025-03-30 02:45 | XMS_ITS | Encounter Summary ---
Author Organization [employer] Address [address] [place] [address] Care Team Providers Care [employer] Media Specialist Name Role Phone Jasbir Morocho MD Primary Care Provider [phone] Encounter Details Date Type Department Care Team (Latest Contact Info) Description 05/29/2024 Lab Requisition [facility] - Main Lab [address] [place] [address] Jasbir Morocho MD [address] [place] [address] Acute kidney failure, unspecified (CMS/HCC V24); Hepatic encephalopathy (CMS/HCC V24, CMS/HCC V28); Essential (primary) hypertension Social History Tobacco Use [...] LAB CHEMISTRY METHOD 05/29/2024 2:59 PM EST [facility] Blood Venous blood specimen / Unknown 05/29/2024 10:49 AM EST 05/29/2024 2:40 PM EST us Jasbir Morocho MD LAB BLOOD ORDERABLES Final R esult [facility] LAB [address] [place] [address], documented in this encounter Visit Diagnoses Diagnosis Acute kidney failure, unspecified (CMS/HCC V24) Acute kidney failure, unspecified Hepatic encephalopathy (CMS/HCC V24, CMS/HCC V28) Hepatic encephalopathy Essential (primary) hypertension Unspecified essential hypertension documented in this encounter Care Teams [employer] Media Specialist Relationship Specialty Start Date End Date Jasbir Morocho MD [address] [place] [address] PCP - General Family Medicine 05/22/24 documented as of this encounter
--- OUTSIDE RECORDS SUMMARY | 2025-03-30 02:45 | XMS_ITS | Encounter Summary ---
Author Organization [employer] Address [address] [place] [address] Care Team Providers Care Process Mold Technician Name Role Phone Jasbir Morocho MD Primary Care Provider [phone] Encounter Details Date Type Department Care Team (Latest Contact Info) Description 06/04/[address] [facility] - Main Lab [address] [place] [address] Jasbir Morocho MD [address] [place] [address] Hepatic encephalopathy (CMS/HCC V24, CMS/HCC V28); Essential [...] LAB CHEMISTRY METHOD 06/05/2024 8:27 AM EST [facility] Blood Venous blood specimen / Unknown Venipuncture / Unknown 06/05/2024 6:55 AM EST 06/05/2024 8:01 AM EST us Jasbir Morocho MD LAB BLOOD ORDERABLES Final R esult [facility] LAB [address] [place] [address], * (ABNORMAL) Basic metabolic panel (06/05/2024 6:55 AM EST) Sodium 138 133 - 145 mmol/L LAB CHEMISTRY METHOD 06/05/2024 9:18 AM [facility] LAB Potassium 4.5 3.5 - 5.5 mmol/L LAB CHEMISTRY METHOD 06/05/2024 9:18 AM [facility] LAB Chloride 100 96 - 110 mmol/L LAB CHEMISTRY METHOD 06/05/2024 9:18 AM [facility] LAB CO2 33(H) 21 - 32 mmol/L LAB CHEMISTRY METHOD 06/05/2024 9:18 AM [facility] LAB Anion Gap 5 3 - 11 LAB CHEMISTRY METHOD 06/05/2024 9:18 AM [facility] LAB Glucose 109(H) 70 - 100 mg/dL LAB CHEMISTRY METHOD 06/05/2024 9:18 AM [facility] LAB BUN 31(H) 5 - 25 mg/dL LAB CHEMISTRY METHOD 06/05/2024 9:18 AM [facility] LAB Creatinine 1.81(H) 0.70 - 1.30 mg/dL LAB CHEMISTRY METHOD 06/05/2024 9:18 AM [facility] LAB eGFR 41(L) >=60 mL/min/1. 73m2 LAB CHEMISTRY METHOD 06/05/2024 9:18 AM [facility] LAB Comment:Calculation based on the Chronic Kidney Disease Epidemiology Collaboration (CKD-EPI) equation refit without adjustment for race. BUN/Creatinine Ratio 17.1 LAB CHEMISTRY METHOD 06/05/2024 9:18 AM [facility] LAB Calcium 9.7 8.5 - 10.5 mg/dL LAB CHEMISTRY METHOD 06/05/2024 9:18 AM [facility] LAB Blood Venous blood specimen / Unknown Venipuncture / Unknown 06/05/2024 6:55 AM EST 06/05/2024 8:41 AM EST Jasbir Morocho MD LAB BLOOD ORDERABLES Final R esult [facility] LAB [address] [place] [address], * (ABNORMAL) Complete blood count (06/05/2024 6:55 AM EST) WBC 10.5 4.8 - 10.8 K/mcL LAB HEMETOLOGY METHOD 06/05/2024 8:59 AM [facility] LAB RBC 4.10(L) 4.50 - 5.50 M/[facility] LAB HEMETOLOGY METHOD 06/05/2024 8:59 AM [facility] LAB Hemoglobin 12.2(L) 13.5 - 17.5 g/dL LAB HEMETOLOGY METHOD 06/05/2024 8:59 AM [facility] LAB Hematocrit 39.5(L) 42.0 - 54.0 % LAB HEMETOLOGY METHOD 06/05/2024 8:59 AM [facility] LAB MCV 95.6 79.0 - 98.0 FL LAB HEMETOLOGY METHOD 06/05/2024 8:59 AM [facility] LAB MCH 29.5 27.0 - 32.0 pcg LAB HEMETOLOGY METHOD 06/05/2024 8:59 AM [facility] LAB MCHC 30.9(L) 32.0 - 37.0 g/dL LAB HEMETOLOGY METHOD 06/05/2024 8:59 AM EST [facility] LAB RDW 14.8 11.0 - 15.0 % LAB HEMETOLOGY METHOD 06/05/2024 8:59 AM EST [facility] LAB Platelets 281 130 - 400 K/mcL LAB HEMETOLOGY METHOD 06/05/2024 8:59 AM [facility] LAB MPV 11.5(H) 7.0 - 11.0 FL LAB HEMETOLOGY METHOD 06/05/2024 8:59 AM EST [facility] LAB NRBC 0.0 <1.0 % LAB HEMETOLOGY METHOD 06/05/2024 8:59 AM [facility] LAB NRBC Absolute 0.00 <0.10 K/mcL LAB HEMETOLOGY METHOD 06/05/2024 8:59 AM [facility] LAB Blood Venous blood specimen / Unknown Venipuncture / Unknown 06/05/2024 6:55 AM EST 06/05/2024 8:42 AM EST us Jasbir Morocho MD LAB BLOOD ORDERABLES Final R esult [facility] LAB [address] [place] [address], documented in this encounter Visit Diagnoses Diagnosis Hepatic encephalopathy (CMS/HCC V24, CMS/HCC V28) Hepatic encephalopathy Essential (primary) hypertension Unspecified essential hypertension documented in this encounter Care Teams Process Mold Technician Relationship Specialty Start Date End Date Jasbir Morocho MD [address] [place] [address] PCP - General Family Medicine 05/22/24 documented as of this encounter
--- OUTSIDE RECORDS SUMMARY | 2025-03-30 02:45 | XMS_ITS | Encounter Summary ---
Author Organization [employer] Address [address] [place] [address] Care Team Providers Care Dough Machine Operator Name Role Phone Jasbir Morocho MD Primary Care Provider + [phone] Encounter Details Date Type Department Care Team (Late st Contact Info) Description 05/22/2024 Lab Requisition [facility] - Main Lab [address] [place] [address] Jasbir Morocho MD [address] [place] [address] Essential (primary) hypertension Social History Tobacco Use [...] LAB CHEMISTRY METHOD 05/22/2024 8:52 AM EST [facility] LAB Potassium 3.9 3.5 - 5.5 mmol/L LAB CHEMISTRY METHOD 05/22/2024 8:52 AM EST [facility] LAB Chloride 99 96 - 110 mmol/L LAB CHEMISTRY METHOD 05/22/2024 8:52 AM EST [facility] LAB CO2 32 21 - 32 mmol/L LAB CHEMISTRY METHOD 05/22/2024 8:52 AM [facility] LAB Anion Gap 6 3 - 11 LAB CHEMISTRY METHOD 05/22/2024 8:52 AM [facility] LAB Glucose 111(H) 70 - 100 mg/dL LAB CHEMISTRY METHOD 05/22/2024 8:52 AM [facility] LAB BUN 20 5 - 25 mg/dL LAB CHEMISTRY METHOD 05/22/2024 8:52 AM [facility] LAB Creatinine 1.01 0.70 - 1.30 mg/dL LAB CHEMISTRY METHOD 05/22/2024 8:52 AM [facility] LAB eGFR 84 >=60 mL/min/1. 73m2 LAB CHEMISTRY METHOD 05/22/2024 8:52 AM [facility] LAB Comment:Calculation based on the Chronic Kidney Disease Epidemiology Collaboration (CKD-EPI) equation refit without adjustment for race. BUN/Creatinine Ratio 19.8 LAB CHEMISTRY METHOD 05/22/2024 8:52 AM [facility] LAB Calcium 9.5 8.5 - 10.5 mg/dL LAB CHEMISTRY METHOD 05/22/2024 8:52 AM [facility] LAB Blood Venous blood specimen / Unknown Venipuncture / Unknown 05/22/2024 5:26 AM EST 05/22/2024 7:54 AM EST Jasbir Morocho MD LAB BLOOD ORDERABLES Final R esult [facility] LAB [address] [place] [address], * (ABNORMAL) Complete blood count (05/22/2024 5:26 AM EST) WBC 12.2(H) 4.8 - 10.8 K/mcL LAB HEMETOLOGY METHOD 05/22/2024 8:39 AM [facility] LAB RBC 3.70(L) 4.50 - 5.50 M/mcL LAB HEMETOLOGY METHOD 05/22/2024 8:39 AM [facility] LAB Hemoglobin 10.8(L) 13.5 - 17.5 g/dL LAB HEMETOLOGY METHOD 05/22/2024 8:39 AM [facility] LAB Hematocrit 34.9(L) 42.0 - 54.0 % LAB HEMETOLOGY METHOD 05/22/2024 8:39 AM [facility] LAB MCV 93.8 79.0 - 98.0 FL LAB HEMETOLOGY METHOD 05/22/2024 8:39 AM [facility] LAB MCH 29.0 27.0 - 32.0 pcg LAB HEMETOLOGY METHOD 05/22/2024 8:39 AM [facility] LAB MCHC 30.9(L) 32.0 - 37.0 g/dL LAB HEMETOLOGY METHOD 05/22/2024 8:39 AM [facility] LAB RDW 15.4(H) 11.0 - 15.0 % LAB HEMETOLOGY METHOD 05/22/2024 8:39 AM [facility] LAB Platelets 241 130 - 400 K/mcL LAB HEMETOLOGY METHOD 05/22/2024 8:39 AM [facility] LAB MPV 12.1(H) 7.0 - 11.0 FL LAB HEMETOLOGY METHOD 05/22/2024 8:39 AM [facility] LAB NRBC 0.0 <1.0 % LAB HEMETOLOGY METHOD 05/22/2024 8:39 AM [facility] LAB NRBC Absolute 0.00 <0.10 K/mcL LAB HEMETOLOGY METHOD 05/22/2024 8:39 AM [facility] LAB Blood Venous blood specimen / Unknown Venipuncture / Unknown 05/22/2024 5:26 AM EST 05/22/2024 7:54 AM EST us Jasbir Morocho MD LAB BLOOD ORDERABLES Final R esult [facility] [address] [place] [address], documented in this encounter Visit Diagnoses Diagnosis Essential (primary) hypertension Unspecified essential hypertension documented in this encounter Care Teams Dough Machine Operator Relationship Specialty Start Date End Date Jasbir Morocho MD [address] [place] [address] PCP - General Family Medicine 05/22/24 documented as of this encounter
--- OUTSIDE RECORDS SUMMARY | 2025-03-30 02:45 | XMS_ITS | Encounter Summary ---
Author Organization [employer] Address [address] [place] [address] Care Team Providers Care Finance Insurance Manager Name Role Phone Jasbir Morocho MD Primary Care Provider Encounter Details Date Type Department Care Team (Latest Contact Info) Description 06/18/2024 Lab Requisition [facility] - Main Lab [address] [facility] [place] [address] Jasbir Morocho MD [address] [place] [id number] Hepatic encephalopathy (CMS/HCC V24, CMS/HCC V28) Social History Tobacco [...] encephalopathy (CMS/HCC V24, CMS/HCC V28) Hepatic encephalopathy documented in this encounter Care Teams Finance Insurance Manager Relationship Specialty Start Date End Date Jasbir Morocho MD [address] [place] [address] PCP - General Family Medicine 05/22/24 documented as of this encounter
--- OUTSIDE RECORDS SUMMARY | 2025-03-30 02:46 | XMS_ITS | Encounter Summary ---
Author Organization [employer] Address [address] [place] [address] Care Team Providers Care Board Setter Name Role Phone Jasbir Morocho MD Primary Care Provider [phone] Encounter Details Date Type Department Care Team (Latest Contact Info) Description 06/11/2024 Lab Requisition [facility] - Main Lab [address] [place] [address] Jasbir Morocho MD [address] [place] [address] Hepatic encephalopathy (CMS/HCC V24, CMS/HCC V28); Essential [...] LAB CHEMISTRY METHOD 06/12/2024 8:57 AM EST [facility] ([facility]) [facility] LAB Blood Venous blood specimen / Unknown Venipuncture / Unknown 06/12/2024 7:15 AM EST 06/12/2024 8:35 AM EST us Jasbir Morocho MD LAB BLOOD ORDERABLES Final R esult [facility] LAB [address] [place] [address], [place] [phone] * (ABNORMAL) Basic metabolic panel (06/12/2024 7:15 AM EST) Sodium 139 133 - 145 mmol/L LAB CHEMISTRY METHOD 06/12/2024 9:04 AM [facility] LAB Potassium 4.5 3.5 - 5.5 mmol/L LAB CHEMISTRY METHOD 06/12/2024 9:04 AM [facility] LAB Chloride 100 96 - 110 mmol/L LAB CHEMISTRY METHOD 06/12/2024 9:04 AM [facility] LAB CO2 32 21 - 32 mmol/L LAB CHEMISTRY METHOD 06/12/2024 9:04 AM [facility] LAB Anion Gap 7 3 - 11 LAB CHEMISTRY METHOD 06/12/2024 9:04 AM [facility] LAB Glucose 92 70 - 100 mg/dL LAB CHEMISTRY METHOD 06/12/2024 9:04 AM [facility] LAB BUN 27(H) 5 - 25 mg/dL LAB CHEMISTRY METHOD 06/12/2024 9:04 AM [facility] LAB Creatinine 1.65(H) 0.70 - 1.30 mg/dL LAB CHEMISTRY METHOD 06/12/2024 9:04 AM [facility] LAB eGFR 46(L) >=60 mL/min/1. 73m2 LAB CHEMISTRY METHOD 06/12/2024 9:04 AM [facility] LAB Comment:Calculation based on the Chronic Kidney Disease Epidemiology Collaboration (CKD-EPI) equation refit without adjustment for race. BUN/Creatinine Ratio 16.4 LAB CHEMISTRY METHOD 06/12/2024 9:04 AM [facility] LAB Calcium 9.9 8.5 - 10.5 mg/dL LAB CHEMISTRY METHOD 06/12/2024 9:04 AM [facility] LAB Blood Venous blood specimen / Unknown Venipuncture / Unknown 06/12/2024 7:15 AM EST 06/12/2024 8:35 AM EST us Jasbir Morocho MD LAB BLOOD ORDERABLES Final R esult [facility] LAB [address] [place] [address], * (ABNORMAL) Complete blood count (06/12/2024 7:15 AM EST) WBC 11.3(H) 4.8 - 10.8 K/mcL LAB HEMETOLOGY METHOD 06/12/2024 8:51 AM [facility] LAB RBC 4.40(L) 4.50 - 5.50 M/[facility] LAB HEMETOLOGY METHOD 06/12/2024 8:51 AM [facility] LAB Hemoglobin 12.7(L) 13.5 - 17.5 g/dL LAB HEMETOLOGY METHOD 06/12/2024 8:51 AM [facility] LAB Hematocrit 41.2(L) 42.0 - 54.0 % LAB HEMETOLOGY METHOD 06/12/2024 8:51 AM [facility] LAB MCV 94.5 79.0 - 98.0 FL LAB HEMETOLOGY METHOD 06/12/2024 8:51 AM [facility] LAB MCH 29.1 27.0 - 32.0 pcg LAB HEMETOLOGY METHOD 06/12/2024 8:51 AM [facility] LAB MCHC 30.8(L) 32.0 - 37.0 g/dL LAB HEMETOLOGY METHOD 06/12/2024 8:51 AM [facility] LAB RDW 14.4 11.0 - 15.0 % LAB HEMETOLOGY METHOD 06/12/2024 8:51 AM EST [facility] LAB Platelets 224 130 - 400 K/mcL LAB HEMETOLOGY METHOD 06/12/2024 8:51 AM [facility] LAB MPV 11.3(H) 7.0 - 11.0 FL LAB HEMETOLOGY METHOD 06/12/2024 8:51 AM EST [facility] LAB NRBC 0.0 <1.0 % LAB HEMETOLOGY METHOD 06/12/2024 8:51 AM EST [facility] LAB NRBC Absolute 0.00 <0.10 K/mcL LAB HEMETOLOGY METHOD 06/12/2024 8:51 AM EST [facility] LAB Blood Venous blood specimen / Unknown Venipuncture / Unknown 06/12/2024 7:15 AM EST 06/12/2024 8:35 AM EST us Jasbir Morocho MD LAB BLOOD ORDERABLES Final R esult [facility] LAB [address] [place] [address], documented in this encounter Visit Diagnoses Diagnosis Hepatic encephalopathy (CMS/HCC V24, CMS/HCC V28) Hepatic encephalopathy Essential (primary) hypertension Unspecified essential hypertension documented in this encounter Care Teams Board Setter Relationship Specialty Start Date End Date Jasbir Morocho MD [address] [place] [address] PCP - General Family Medicine 05/22/24 documented as of this encounter
--- OUTSIDE RECORDS SUMMARY | 2025-03-30 02:46 | XMS_ITS | Clinical Summary ---
Author Organization [address] [facility] Address [address] [place] [address] Phone Care Team Providers Care Carpet Jack Name Role Phone Jasbir Morocho MD Primary Care Provider Social History Tobacco Use Types Packs/Day Years Used Date Smoking Tobacco: Never Assessed Sex and Gender Information Value Date Recorded Sex Assigned at Not on file Legal Sex Male 6:17 AM EST Gender Identity Not on file Sexual Orientation Not on file Plan of Treatment Health Maintenance Due Date Last Done Comments Colorectal Cancer Screening: Colonoscopy 1961 Hepatitis A Vaccines (1 of 2 - Risk 2-dose series) 02/08/1980 Pneumococcal Vaccine: 50+ Years (1 of 2 - PCV) 02/08/1980 DTaP,Tdap,and Td Vaccines (7 - Tdap) 03/04/2008 03/04/1998, 02/21/1986, 12/22/1982, Additional history exists Zoster Vaccines (1 of 2) 2011 Hepatitis B Vaccines (1 of 3 - Risk 3-dose series) 2021 04/22/1999, 09/26/1998, 10/10/1997 RSV Immunization Adult Patients (1 - Risk 60-74 years 1-dose series) 2021 Cholesterol Screening (Lipid Panel) 05/30/2022 HIV Screening 05/30/2022 Hepatitis C Screening 05/30/2022 Medicare Annual Wellness Visit 05/30/2022 Social Influencers of Health Screening 05/30/2022 Depression Screening 06/27/2024 COVID-19 Vaccine (2 - season) 2025 10/13/2020 Influenza Vaccine (#1) 2025 Hypertension/CHF/CAD Annual BMP Blood Test 06/12/2025 06/12/2024, [...] patient's age to complete this topic Meningococcal B Vaccine Aged Out No l onger eligible based on patient's age to complete this topic RSV Immunization Patients Under 20 months Aged Out No longer eligible based on patient's age to complete this topic Varicella Vaccines Aged Out No longer eligible based on patient's age to complete this topic Procedures Procedure Name Priority Date/Time Associated Diagnosis Comments BASIC METABOLIC PANEL Routine 06/12/2024 7:15 AM EST Hepatic encephalopathy (CMS/HCC) Essential (primary) hypertension from Last 3 Months or Most Recently Relevant to Health Maintenance Results * (ABNORMAL) Basic metabolic panel (06/12/2024 7:15 AM EST) Sodium 139 133 - 145 mmol/L LAB CHEMISTRY METHOD 06/12/2024 9:04 AM [facility] LAB Potassium 4.5 3.5 - 5.5 mmol/L LAB CHEMISTRY METHOD 06/12/2024 9:04 AM [facility] LAB Chloride 100 96 - 110 mmol/L LAB CHEMISTRY METHOD 06/12/2024 9:04 AM [facility] LAB CO2 32 21 - 32 mmol/L LAB CHEMISTRY METHOD 06/12/2024 9:04 AM [facility] LAB Anion Gap 7 3 - 11 LAB CHEMISTRY METHOD 06/12/2024 9:04 AM [facility] LAB Glucose 92 70 - 100 mg/dL LAB CHEMISTRY METHOD 06/12/2024 9:04 AM [facility] LAB BUN 27(H) 5 - 25 mg/dL LAB CHEMISTRY METHOD 06/12/2024 9:04 AM [facility] LAB Creatinine 1.65(H) 0.70 - 1.30 mg/dL LAB CHEMISTRY METHOD 06/12/2024 9:04 AM EST [facility] LAB eGFR 46(L) >=60 mL/min/1. 73m2 LAB CHEMISTRY METHOD 06/12/2024 9:04 AM EST [facility] LAB Comment:Calculation based on the Chronic Kidney Disease Epidemiology Collaboration (CKD-EPI) equation refit without adjustment for race. BUN/Creatinine Ratio 16.4 LAB CHEMISTRY METHOD 06/12/2024 9:04 AM [facility] LAB Calcium 9.9 8.5 - 10.5 mg/dL LAB CHEMISTRY METHOD 06/12/2024 9:04 AM [facility] LAB Blood Venous blood specimen / Unknown Venipuncture / Unknown 06/12/2024 7:15 AM EST 06/12/2024 8:35 AM EST us Jasbir Morocho MD LAB BLOOD ORDERABLES Final R esult [facility] LAB [address] [place] [address], from Last 3 Months or Most Recently Relevant to Health Maintenance Insurance MEDICAID - [place] MEDICARE [facility] Care Teams Carpet Jack Relationship Specialty Start Date End Date Jasbir Morocho MD [address] [place] [address] PCP - General Family Medicine 05/22/24
--- OUTSIDE RECORDS SUMMARY | 2025-03-30 02:46 | XMS_ITS | Encounter Summary ---
Author Organization [employer] Address [address] [place] [address] Care Team Providers Care Garden Center Manager Name Role Phone Jasbir Morocho MD Primary Care Provider [phone] Encounter Details Date Type Department Care Team (Latest Contact Info) Description 05/28/2024 Lab Requisition [facility] [address] [place] [address] Jasbir Morocho MD [address] [place] [address] Hepatic encephalopathy (CMS/HCC V24, CMS/HCC V28); Essential [...] LAB CHEMISTRY METHOD 05/29/2024 1:18 PM EST [facility] LAB Potassium 4.9 3.5 - 5.5 mmol/L LAB CHEMISTRY METHOD 05/29/2024 1:18 PM EST [facility] LAB Chloride 96 96 - 110 mmol/L LAB CHEMISTRY METHOD 05/29/2024 1:18 PM EST [facility] LAB CO2 28 21 - 32 mmol/L LAB CHEMISTRY METHOD 05/29/2024 1:18 PM [facility] LAB Anion Gap 10 3 - 11 LAB CHEMISTRY METHOD 05/29/2024 1:18 PM [facility] LAB Glucose 122(H) 70 - 100 mg/dL LAB CHEMISTRY METHOD 05/29/2024 1:18 PM [facility] BUN 26(H) 5 - 25 mg/dL LAB CHEMISTRY METHOD 05/29/2024 1:18 PM [facility] LAB Creatinine 1.61(H) 0.70 - 1.30 mg/dL LAB CHEMISTRY METHOD 05/29/2024 1:18 PM [facility] LAB eGFR 48(L) >=60 mL/min/1. 73m2 LAB CHEMISTRY METHOD 05/29/2024 1:18 PM [facility] LAB Comment:Calculation based on the Chronic Kidney Disease Epidemiology Collaboration (CKD-EPI) equation refit without adjustment for race. BUN/Creatinine Ratio 16.1 LAB CHEMISTRY METHOD 05/29/2024 1:18 PM [facility] LAB Calcium 10.4 8.5 - 10.5 mg/dL LAB CHEMISTRY METHOD 05/29/2024 1:18 PM [facility] LAB Blood Venous blood specimen / Unknown Venipuncture / Unknown 05/29/2024 7:56 AM EST 05/29/2024 11:51 AM EST us Jasbir Morocho MD LAB BLOOD ORDERABLES Final R esult [facility] LAB [address] [place] [address], documented in this encounter Visit Diagnoses Diagnosis Hepatic encephalopathy (CMS/HCC V24, CMS/HCC V28) Hepatic encephalopathy Essential (primary) hypertension Unspecified essential hypertension documented in this encounter Care Teams Garden Center Manager Relationship Specialty Start Date End Date Jasbir Morocho MD [address] [place] [address] PCP - General Family Medicine 05/22/24 documented as of this encounter
--- NOTE | 2025-03-30 03:47 | ED.FALL ---
HPI - Fall General Chief Complaint: Fall Stated Complaint: Fall, Head/Back Pain Time Seen by Provider: 03/30/25 03:23 Source: patient Mode of arrival: ambulatory Limitations: no limitations History of Present Illness ED Provider: Ander BARNES HPI Narrative: The patient is a 65-year-old male with a history of hypertension, hyperlipidemia, CHF, alcohol dependency, and previous cardiac arrest secondary to COVID-19 in 2019, which resulted in chronic balance issues and extremity weakness. Patient reports he has been using a walker at home since the cardiac arrest. The patient reports 2 nights ago he had just finished using the bathroom, when he attempted to stand up from the toilet he suffered a mechanical fall. Patient reports he regularly uses the door handle and vanity counter to pull himself up to a standing position and transferred to his wheelchair. The patient reports 2 nights ago when the fall occurred the door was not fully latched and opened towards him causing him to fall towards the vanity and is wheelchair, striking his head and neck on the wheelchair. The patient denies any headache, focal neurological deficit, chest pain, shortness of breath, abdominal pain, or other acute somatic complaint prior to the fall. The patient reports his heard the fall and denies any loss of consciousness. The patient reports he has been on Eliquis since his cardiac arrest, however refused to allow his to call 911, and did not seek medical care. The patient reports it took him approximately 90 minutes to pull himself across the bedroom floor to the nearby basement stairs, upon reaching the stairs the patient has swelling in his legs onto the stairs allowing him to put his legs down and use the stair railings to pull himself up. Patient reports since that time he has been staying in bed due to experiencing bilateral hip pain radiating to his low back and anterior right hip. The patient also reports he has been experiencing a right-sided headache, and neck pain described as stiffness. Related Data Previous Rx's ?Medication ?Instructions ?Recorded blood-glucose meter (FreeStyle #1 ea 09/03/20 Lite Meter kit) lancets 28 gauge (FreeStyle #100 ea 02/02/21 Lancets) FreeStyle David 2 [place] (flash #1 ea 07/03/22 glucose scanning reader) FreeStyle David 2 Sensor (flash #1 ea 07/03/22 glucose sensor) multivitamin with folic acid 400 1 tab PO DAILY #90 tabs 12/06/23 mcg tablet (Daily-Carlito (with folic acid)) acetaminophen 650 mg 650 mg PO Q12H PRN pain 30 days 04/17/24 tablet,extended release (Tylenol #60 tabs Arthritis Pain) amlodipine 5 mg tablet 5 mg PO DAILY #90 tabs 04/17/24 magnesium 250 mg tablet 250 mg PO DAILY #30 tabs 05/20/24 multivitamin (Daily-Carlito tablet) 1 tab PO DAILY #90 tabs 07/18/24 thiamine HCl (vitamin B1) 100 mg 100 mg PO DAILY #30 tabs 07/18/24 tablet metoprolol tartrate 50 mg tablet 50 mg PO BID #180 tabs 09/11/24 apixaban 5 mg tablet (Eliquis) 5 mg PO BID #180 tabs 09/20/24 rosuvastatin 20 mg tablet 20 mg PO DAILY #90 tabs 10/07/24 folic acid 1 mg tablet 1 mg PO DAILY #90 tabs 11/06/24 metformin 850 mg tablet 850 mg PO DAILY #90 tabs 11/06/24 albuterol sulfate 90 mcg/actuation 2 puff inhalation QID PRN Wheezing 02/12/25 aerosol inhaler #8.5 grams furosemide 20 mg tablet 30 mg (1.5 x 20 mg) PO DAILY #135 02/21/25 tabs omeprazole 20 mg capsule,delayed 40 mg (2 x 20 mg) PO DAILY@0630 02/21/25 release #180 caps lisinopril 2.5 mg tablet 2.5 mg PO DAILY #90 tabs 03/10/25 fluoxetine 40 mg capsule 40 mg PO DAILY #90 caps 03/13/25 acetaminophen 500 mg capsule 1,000 mg (2 x 500 mg) PO Q8H PRN 03/30/25 fever or pain #14 caps cyclobenzaprine 10 mg tablet 10 mg PO TID PRN muscle spasm #14 03/30/25 tabs oxycodone 5 mg tablet 5 mg PO Q6H PRN pain #12 tabs 03/30/25 Allergies Allergy/AdvReac Type Severity Reaction Status Date / Time No Known Allergies (No Known Allergy Verified 03/30/25 01:38 Allergies*) Review of Systems Review of Systems: Yes all other systems are reviewed and are negative FOR[facility]LY [facility] Past Medical History Medical History MJ (obstructive sleep apnea) CHF (congestive heart failure) Alcohol use disorder, severe, dependence CHF (congestive heart failure) Effusion, right knee Screen for STD (sexually transmitted disease) Left ankle swelling Hypomagnesemia Diarrhea Acute UTI Physical exam Nocturia Microhematuria Elevated serum creatinine Morbid obesity Increased ammonia level Weakness of both lower extremities Dermatitis, unspecified History of cardiac arrest (~05/2020) Nicotine dependence, cigarettes, uncomplicated Personal history of colonic polyps Hypoventilation associated with obesity syndrome Encephalopathy chronic CKD (chronic kidney disease) stage 3, GFR 30-59 ml/min Cirrhosis Diabetes Obesity (BMI 35.0-39.9 without comorbidity) Wernicke encephalopathy Obstructive sleep apnea (adult) (pediatric) Rib fractures CHF (congestive heart failure) Left atrial enlargement Persistent atrial fibrillation Depression Gout Arthritis Anxiety HTN (hypertension) Surgical History History of tracheostomy (~2019) History of bronchoscopy (~2019) History of colonoscopy (~2021) History of esophagogastroduodenoscopy (EGD) (~2021) History of cardioversion (~2020) S/P percutaneous endoscopic gastrostomy (PEG) tube placement (~2019) Family History Family History Father Lung cancer Mother No problems noted. Maternal Aunt History of heart attack Sister No problems noted. Brother Cancer of kidney Brother No problems noted. Brother No problems noted. Brother No problems noted. Brother No problems noted. Brother No problems noted. Other Substance use disorder Social History Social History Household Members: Unknown / Unable to assess Housing: Unknown / Unable to assess Do you presently have visiting nurse or other home services: No Alcohol intake: current Alcohol intake frequency: 3 or more drinks per day Alcohol type: hard liquor Comment: pt refuses fall risk interventions and protocol Patient Tobacco Use Status: Tobacco use Unknown Tobacco use type: Cigarette Cigarette Packs Per Day: 0.5 Cigarettes Per Day: 10.0 Years Smoked: 40 e-Cigarette/Vaping Use: Never Used Second Hand Smoke Exposure: No Advance Directives Date on File: 06/05/20 service: Yes Current occupational status: unemployed Cognitive needs: No Hearing needs: No Vision needs: No Physical Exam Vital Signs: Vital Signs: Last Vital Signs Temp 0 F L 03/30/25 16:16 Pulse 63 03/30/25 16:16 Resp 18 03/30/25 16:16 BP 124/70 03/30/25 16:16 Pulse Ox 90 L 03/30/25 16:16 O2 Del Method Room Air 03/30/25 16:16 O2 Flow Rate 2 03/30/25 13:19 BMI result Body Mass Index 41.4 CONSTITUTIONAL: The patient appears moderately unkempt, morbidly obese, patient does not appear clinically intoxicated however there is odor of EtOH metabolites on breath. Patient is otherwise non-toxic, well nourished and in no acute distress. Vital signs as documented. HEAD: Atraumatic, normocephalic. EYES: EOMs grossly intact, pupils equal, conjunctiva clear, no exudate. ENT: Nares patent, no discharge. Airway patent, no audible stridor, visible mucosa is pink and moist without noted lesions. NECK: Trachea is midline, no obvious masses or gross abnormalities. No midline spinous process tenderness, crepitus, or step-off. There is pain reported with lateral rotation of the neck. Patient is able to touch chin to chest without discomfort. CHEST: Symmetric movement, normal appearance. LUNGS: LS present and CTAB, no w/r/r. Non-labored work of breathing. CARDIAC: Regular Rhythm, S1/S2 appreciated, no murmurs, rubs or gallops. ABDOMEN: Abdomen soft x4 quadrants, positive tenderness to palpation of the right lower quadrant, negative rebound, negative Rovsing's, no palpable masses or organomegaly. : Deferred. EXTREMITIES: Normal tone, moves all extremities spontaneously. There is some ecchymosis noted to the right upper arm without overlying tenderness or bony tenderness, no other obvious acute injury or deformity noted. NEURO: Alert and oriented x3, CN II-XII appear grossly intact. Cerebellar Functioning grossly intact. No obvious sensory or motor deficits. Speech clear and appropriate. PSYCH: normal affect, appropriate eye contact, fluid speech, with appropriate response to questioning. No reported suicidality or homicidality. SKIN: Warm, dry, color appropriate, normal turgor. No rashes noted. Course Reevaluation(s) Reevaluation #1: The patient is a 65-year-old male who was signed out to me at change of shift by the overnight provider. The patient is fairly disabled at baseline. He apparently gets around in a wheelchair. He is normally able to stand and pivot to get himself out of his bed and into a wheelchair but is not more significantly ambulatory. He reports having had a fall at home 2 or 3 days ago (?on Tuesday or Tuesday?). He hurt his lower back. He also hit his head. He is on apixaban. He said he had some pain for the following days but last night his pain seemed to get significantly worse, primarily in his lower back and in his neck. The overnight provider ordered CT imaging to evaluate for injuries. The patient has had a CT scan of the head, neck, and also the abdomen and pelvis. These scans have all been read as negative. And went to see the patient. He is complaining primarily of low back pain. I reviewed the CT images of his spine. I do not see any acute fractures. Although the patient is quite disabled he has some use of his legs and he reports that his motor function of his legs is at baseline. The patient has a history of alcoholism. His alcohol this morning was 122. The patient seems to have some renal compromise today. His creatinine is 1.67. His last creatinine in our system was from May 182023 when it was 0.85. Looking further back in his records he had a significant acute kidney injury with a creatinine of 5.84 on 05/10/2024. Prior to that episode it seems as though his baseline creatinine tends to run around 1.1. The patient has been given morphine for pain. He has been given IV fluids. His CPK is normal. He does not seem to have any new neurological deficits. The patient seems to be hopeful that he can go home. He will receive a 2 L of IV fluids. He will receive a dose of IV acetaminophen, and a dose of 10 mg of oral cyclobenzaprine. Time: 09:24 Reevaluation #2: The patient was kept in the emergency room for several hours and received IV fluids. A repeat BMP was done that showed significant improvement in his creatinine. On top of the 2 L that he has been given before the BNP was checked he was then given 1/3 L as well. A chest x-ray was done that was normal. He seemed to feel that his pain was sufficiently well-controlled with oxycodone and cyclobenzaprine that he felt strongly that he would like to go home as opposed to staying in the emergency room for evaluation by physical therapy and case management. Since he is wheelchair-bound at baseline we arranged for an ambulance to take him home. Prescriptions were sent for acetaminophen, cyclobenzaprine, and oxycodone to his pharmacy. He should contact his PCP on Tuesday for a follow up appointment. He should return if worse. Time: 17:36 Medications Administered Discontinued Medications Generic Name Dose Route Start Last Admin Trade Name Freq PRN Reason Stop Dose Admin Cyclobenzaprine HCl 10 mg 03/30/25 09:24 03/30/25 09:32 Cyclobenzaprine Hcl 10 Mg Tablet PO 03/30/25 09:25 10 mg ONCE ONE Administration Sodium Chloride 1,000 mls @ 999 mls/hr 03/30/25 05:00 03/30/25 07:02 Ns IV 03/30/25 06:00 Infused .Q1H1M JESSICA Infusion Sodium Chloride 1,000 mls @ 999 mls/hr 03/30/25 09:15 03/30/25 11:00 Ns IV 03/30/25 10:15 Infused .Q1H1M JESSICA Infusion Acetaminophen 1,000 mg in 100 mls @ 400 mls/hr 03/30/25 09:14 03/30/25 10:06 Ofirmev IV 03/30/25 09:28 Infused ONCE ONE Infusion Magnesium Sulfate 2 gm in 50 mls @ 150 mls/hr 03/30/25 09:16 03/30/25 10:06 Magnesium Sulfate/H2o IV 03/30/25 09:35 Infused ONCE ONE Infusion Lactated Ringer's 1,000 mls @ 999 mls/hr 03/30/25 12:00 03/30/25 14:13 Lr IV 03/30/25 13:00 Infused .Q1H1M JESSICA Infusion Morphine Sulfate 4 mg 03/30/25 07:02 03/30/25 07:12 Morphine Sulfate 4 Mg/Ml Cartridge IVPUSH 03/30/25 07:03 4 mg ONCE ONE Administration Protocol Oxycodone HCl 5 mg 03/30/25 12:00 03/30/25 12:39 Oxycodone Hcl Immed Release 5 Mg Tablet PO 03/30/25 12:01 5 mg ONCE ONE Administration Medical Decision Making Medical Decision Making MDM Narrative: 4:57 AM 03/30/2025 (Gilmar BARNES): The patient is a 65-year-old male with a history of hypertension, hyperlipidemia, CHF, alcohol dependency, and previous cardiac arrest secondary to COVID-19 in 2019, which resulted in chronic balance issues and extremity weakness. Patient reports he has been using a walker at home since the cardiac arrest. The patient reports 2 nights ago he had just finished using the bathroom, when he attempted to stand up from the toilet he suffered a mechanical fall. Patient reports he regularly uses the door handle and vanity counter to pull himself up to a standing position and transferred to his wheelchair. The patient reports 2 nights ago when the fall occurred the door was not fully latched and opened towards him causing him to fall towards the vanity and is wheelchair, striking his head and neck on the wheelchair. The patient denies any headache, focal neurological deficit, chest pain, shortness of breath, abdominal pain, or other acute somatic complaint prior to the fall. The patient reports his heard the fall and denies any loss of consciousness. The patient reports he has been on Eliquis since his cardiac arrest, however refused to allow his to call 911, and did not seek medical care. The patient reports it took him approximately 90 minutes to pull himself across the bedroom floor to the nearby basement stairs, upon reaching the stairs the patient has swelling in his legs onto the stairs allowing him to put his legs down and use the stair railings to pull himself up. Patient reports since that time he has been staying in bed due to experiencing bilateral hip pain radiating to his low back and anterior right hip. The patient also reports he has been experiencing a right-sided headache, and neck pain described as stiffness. In the ED the patient denies focal neurological deficit, fever/chills, chest pain, shortness of breath, nausea, or vomiting. On exam the patient has no visible trauma to the head or neck, but appears uncomfortable with lateral rotation of the neck. The patient is able to touch chin to chest without discomfort. The patient's abdominal exam reveals tenderness in the right lower quadrant, negative rebound, no obvious bruising. The patient is moderately unkempt, with a odor of EtOH metabolites on breath. The patient's laboratory evaluation shows no leukocytosis, significant anemia, or significant electrolyte abnormality, potassium slightly low at 3.2, this will be repleted orally. The patient's renal function is mildly impaired with BUN 21 and creatinine 1.67. The patient has had multiple previous admissions for MERLIN, however most recent labs available show normal creatinine at 0.85 in April of 2024. The patient we will be evaluated with CT head, neck, and dry scan of the abdomen/pelvis. The patient will receive IV fluid hydration for MERLIN, and p.o. potassium. We will add on an ethanol level. Lab Data 03/30/25 02:05 03/30/25 11:38 Labs: Lab Results 03/30/25 03/30/25 03/30/25 Range/Units 02:05 06:22 11:38 WBC 10.4 (4.8-10.8) X10*3/uL RBC 4.29 L (4.60-5.80) X10*6/uL Hgb 12.7 L (14.0-18.0) g/dl Hct 37.8 L (42.0-52.0) % MCV 88.1 (80.0-98.0) fL MCH 29.6 (27.0-33.0) pg MCHC 33.6 (31.0-36.0) g/dl RDW 15.7 (11.0-16.0) % Plt Count 225 (160-400) X10*3/uL MPV 9.9 (9.4-12.4) fL Immature Gran % (Auto) 0.4 (0.0-0.4) % Neut % (Auto) 60.3 (45-73) % Lymph % (Auto) 28.8 (20-40) % Monroe % (Auto) 7.6 (2-11) % Eos % (Auto) 2.1 (0-4) % Baso % (Auto) 0.8 (0-2) % Lymph # (Auto) 3.0 (1.2-4.9) X10*3/uL Monroe # (Auto) 0.8 (0.1-1.2) X10*3/uL Eos # (Auto) 0.2 (0.0-0.4) X10*3/uL Baso # (Auto) 0.1 (0.0-0.2) X10*3/uL Abs Immat Gran (auto) 0.04 H (0.00-0.03) X10*3/uL Absolute Neuts (auto) 6.3 (2.0-8.3) x10*3/uL Absolute Nucleated RBC 0.000 (0.0-0.012) X10*3/uL Nucleated RBC % (auto) 0.0 (0.0-0.2) /100WBC Sodium 135 137 (135-145) mmol/L Potassium 3.2 L 3.6 (3.3-5.1) mmol/L Chloride 98 102 (96-108) mmol/L Carbon Dioxide 26 29 (22-29) mmol/L Anion Gap 14 10 L (12-20) BUN 21 H 19 H (9-16) mg/dL Creatinine 1.67 H 1.31 (0.5-1.4) mg/dL Estim Creat Clear Calc 62.6 79.8 Estimated GFR 42 55 Random Glucose 81 95 (60-115) mg/dL Calcium 9.0 8.4 D (8.4-10.2) mg/dL Total Bilirubin 0.3 (0.0-1.0) mg/dL AST 19 (5-37) U/L ALT < 6 (0-40) U/L Alkaline Phosphatase 88 (39-117) U/L Total Creatine Kinase 19 L (38-174) U/L Total Protein 7.1 (6.5-8.0) g/dL Albumin 3.6 (3.5-5.0) g/dL Urine Color Yellow Urine Appearance Clear Urine pH 5.0 (5.0-9.0) Ur Specific [place] 1.020 (1.005-1.025) Urine Protein 30 (1+) H (Neg-Trace) mg/dL Urine Glucose (UA) Negative (Negative) mg/dL Urine Ketones Trace (Negative) mg/dL Urine Blood Large (3+) H (Negative) Urine Nitrite Negative (Negative) Ur Leukocyte Esterase Small (1+) H (Negative) Urine RBC 11-20 H (0-2) /HPF Urine WBC 0-5 (0-5) /HPF Ur Squamous Epith Cells 0-2 (0-2) /HPF Urine Bacteria None Seen (None Seen) Hyaline Casts 11-20 (0-2) /LPF Ethyl Alcohol 122 mg/dL Discharge Plan Discharge Clinical Impression: Acute low back pain, Cervical strain, Fall Patient Disposition: Home, Self-Care Additional Instructions: Your testing in the emergency room today does not show any fractures or other acute injuries. My assumption is that your back pain in your neck pain are muscle pains. I have sent prescriptions for acetaminophen, cyclobenzaprine, and oxycodone to your pharmacy. You may use these medications as needed for pain. Please do not use ibuprofen or similar drugs (avoid drugs in the nonsteroidal anti-inflammatory family such as naproxen, Aleve, diclofenac, another similar drugs). The reason for avoiding these medications as that your kidney function was somewhat poor today. You received a lot of IV fluids and this helped your kidney function. Please plan on contacting your regular doctor's office on Tuesday for a follow up appointment this week for a recheck. Return to the emergency room if significantly worse. Prescriptions: New oxycodone 5 mg tablet 5 mg PO Q6H PRN (Reason: pain) Qty: 12 0RF Rx Instructions: Partial Fill upon patient request. cyclobenzaprine 10 mg tablet 10 mg PO TID PRN (Reason: muscle spasm) Qty: 14 0RF acetaminophen 500 mg capsule 1,000 mg PO Q8H PRN (Reason: fever or pain) Qty: 14 0RF No Action (DME) blood-glucose meter [FreeStyle Lite Meter] Kit See Rx Instructions .ROUTE .MEDSUPPLY Qty: 1 0RF Rx Instructions: check sugar twice a day (DME) lancets [FreeStyle Lancets] 28 gauge misc See Rx Instructions .ROUTE .MEDSUPPLY Qty: 100 2RF Rx Instructions: check sugar twice a day (DME) FreeStyle David 2 [place] Misc See Rx Instructions .Route Qty: 1 0RF Rx Instructions: tid testing (DME) FreeStyle David 2 Sensor Kit See Rx Instructions .Route Qty: 1 3RF Rx Instructions: tid testing multivitamin with folic acid [Daily-Carlito (with folic acid)] 400 mcg tablet 1 tab PO DAILY Qty: 90 1RF amlodipine 5 mg tablet 5 mg PO DAILY Qty: 90 1RF acetaminophen [Tylenol Arthritis Pain] 650 mg tablet extended release 650 mg PO Q12H PRN (Reason: pain) 30 Days Qty: 60 0RF metoprolol tartrate 50 mg tablet 50 mg PO BID Qty: 180 1RF Eliquis 5 mg tablet 5 mg PO BID Qty: 180 1RF rosuvastatin 20 mg tablet 20 mg PO DAILY Qty: 90 1RF Rx Instructions: increased dose folic acid 1 mg tablet 1 mg PO DAILY Qty: 90 1RF metformin 850 mg tablet 850 mg PO DAILY Qty: 90 1RF albuterol sulfate 90 mcg/actuation HFA aerosol inhaler 2 puff inhalation QID PRN (Reason: Wheezing) Qty: 8.5 3RF furosemide 20 mg tablet 30 mg PO DAILY Qty: 135 1RF omeprazole 20 mg capsule,delayed release(DR/EC) 40 mg PO DAILY@0630 Qty: 180 1RF lisinopril 2.5 mg tablet 2.5 mg PO DAILY Qty: 90 1RF fluoxetine 40 mg capsule 40 mg PO DAILY Qty: 90 0RF magnesium 250 mg tablet 250 mg PO DAILY Qty: 30 0RF thiamine HCl (vitamin B1) 100 mg tablet 100 mg PO DAILY Qty: 30 3RF multivitamin [Daily-Carlito] Tablet 1 tab PO DAILY Qty: 90 0RF Referrals: Ortiz Deluca, [employer] [facility] [Primary Care Provider, Internal Medicine] Interventions: ED Discharge Assessment Last Done: 03/30/25 16:16 Discharge Date/Time: 03/30/25 17:22 Print Language: Greenlandic
[2025-03-30 06:30] LABS: Appearance Urine Clear; Glucose Urine UA Negative (Negative); PH 5.0 (5.0-9.0); Specific Gravity - Urine 1.020 (1.005-1.025); UMIC TRIGGER UACC YES
[2025-03-30 06:48] LABS: UACC Culture Trigger YES
--- NOTE | 2025-03-30 07:14 | PC.NURSE ---
Assumed care of patient. Pt is A+Ox4, calm, cooperative, c/o 9/10 lower back pain with some pain in left wrist and neck from his fall prior to arrival. RR even and unlabored, denies CP or SOB. Pt is wheelchair bound. Pt denies n/v/c/d.
--- NOTE | 2025-03-30 09:02 | PC.NURSE ---
pt c/o ongoing back pain, provider aware. pt on 2L NC d/t desat at night, has COPD and sleep apnea, normally on sleep apnea mask
--- NOTE | 2025-03-30 09:05 | PC.NURSE ---
PT provided with 2 heat packs for back, seem to have provided some comfort, pain management ongoing.
[2025-03-30] MEDS: Magnesium Sulfate/H2O 2 GM/50 ML PIGGYBACK IV (09:28)
--- NOTE | 2025-03-30 10:18 | PC.NURSE ---
Pt reports some improvement in pain level after magnesium and tylenol, flexeril results pending, appears more comfortable. RR even and unlabored, no visible s/s of distress. Pt calm, cooperative. IV fluids running.
--- NOTE | 2025-03-30 11:40 | MHC.EDTECH ---
Repeat drawn/sent.
[2025-03-30 11:55] LABS: Anion Gap 10 (12-20); Blood Urea Nitrogen 19 mg/dL (9-16); Calcium 8.4 mg/dL (8.4-10.2); Carbon Dioxide 29 mmol/L (22-29); Chloride 102 mmol/L (96-108); Creatinine Clr Calc Pharmacy 79.8; Estimated Glomerular Filt Rate 55; Potassium 3.6 mmol/L (3.3-5.1); Sodium 137 mmol/L (135-145)
[2025-03-30] MEDS: oxyCODONE HCl Immed Release 5 MG TABLET PO (12:39)
[2025-03-30] MEDS: Lactated Ringers 1,000 ML 999 ML IV (12:39)
== END 2025-03-30 17:22 | disposition home or self-care (01) ==
PROVIDERS: Emergency Medicine; Physician Assistant; Emergency Provider Emergency Medicine; PCP Nurse Practitioner Family
DX: S13.4XXA Sprain of ligaments of cervical spine, initial encounter (principal); M54.50 Low back pain, unspecified; R51.9 Headache, unspecified; R10.813 Right lower quadrant abdominal tenderness; M54.2 Cervicalgia; M25.552 Pain in left hip; M25.551 Pain in right hip; R11.0 Nausea; W01.10XA Fall on same level from slipping, tripping and stumbling with subsequent striking against unspecified object, initial encounter; Z91.81 History of falling; Y93.9 Activity, unspecified; Y92.9 Unspecified place or not applicable; Y99.8 Other external cause status; Z79.899 Other long term (current) drug therapy; Z79.01 Long term (current) use of anticoagulants; Z51.81 Encounter for therapeutic drug level monitoring
CPT/HCPCS: 36415; 70450; 71045; 72125; 74176; 80048; 80053; 80307; 81001; 82550; 85025; 87086; 96361; 96365; 96375; 99285; J0131; J2270; J3475; J7120

== ENCOUNTER → 2025-03-30 03:47 | Outpatient (BNV) | payer MEDICARE, OTHER, MEDICAID, SELFPAY | PROVIDERS: Emergency Provider Emergency Medicine; PCP Nurse Practitioner Family; Visit Provider Specialist | DX: R10.813 Right lower quadrant abdominal tenderness (principal); M54.2 Cervicalgia; S09.90XA Unspecified injury of head, initial encounter; R09.02 Hypoxemia; W19.XXXA Unspecified fall, initial encounter | CPT/HCPCS: 70450; 71045; 72125; 74176 ==

== ENCOUNTER 2025-04-13 08:15 | Inpatient (IN) | payer MEDICARE, OTHER, MEDICAID, SELFPAY ==
[2025-04-13] VITALS (15 sets, daily range): BP systolic 84–122; BP diastolic 45–76; PULSE 79–118; RESP 11–25; TEMP 36.7–37.3; O2SAT 91–99; BMI 38.0
--- NOTE | ~2025-04-13 | XR_ITS ---
CLINICAL HISTORY: fall knee pain 2 view right knee Comparison: None provided Findings: Normal alignment without acute fracture. Mild deformity of the proximal fibular shaft likely sequela of old injury. [id number] degenerative narrowing of the medial and lateral tibiofemoral compartments. Small suprapatellar joint effusion. No radiopaque foreign body. IMPRESSION: 1. No acute fracture This document has been electronically signed by: Cinda Calvo MD on 04/13/2025 12:32:56
--- NOTE | ~2025-04-13 | XR_ITS ---
CLINICAL HISTORY: fall ankle pain 3 view left ankle Comparison: 03/28/2023 Findings: No acute fractures. Ankle mortise intact. Small posterior superior calcaneal spur. No radiopaque foreign body. IMPRESSION: 1. No acute findings. This document has been electronically signed by: Cinda Calvo MD on 04/13/2025 12:34:48
--- NOTE | ~2025-04-13 | CT_ITS ---
CLINICAL HISTORY: fall neck pain down [address] cervical spine without contrast Comparison: 03/30/2025 Findings: Normal vertebral body alignment. No significant degenerative change. No acute fractures or dislocations. Visualized intracranial contents are unremarkable. Soft tissues of the neck are normal. No consolidation or effusion at the lung apices. IMPRESSION: No acute findings. This document has been electronically signed by: Jasbir Proctor MD on 04/13/2025 09:18:13
--- NOTE | ~2025-04-13 | CT_ITS ---
CLINICAL HISTORY: headache sp fall 15 stairs , PLEASE ALSO COMMENT ON FACIAL BONES CT head without contrast Comparison: 03/30/2025 Findings: No definite intra-axial mass, midline shift, hydrocephalus, or acute hemorrhage on this motion limited study. [id number] age-related cerebral hemispheric white matter ischemic changes. Left maxillary sinus polyp/retention cyst. Incidental note of retropharyngeal course of the ICAs. Mild opacification of the left mastoid air cells as before. New opacification of a single right mastoid air cell. The orbits are within normal limits. No skull fracture. IMPRESSION: 1. No definite acute intracranial findings, on this motion limited study. This document has been electronically signed by: Cinda Calvo MD on 04/13/2025 11:53:00
--- NOTE | ~2025-04-13 | XR_ITS ---
EXAMINATION: XR ELBOW, LEFT CLINICAL INFORMATION: fall, pain COMPARISON: July 21, 2015 TECHNIQUE: AP, lateral, and oblique views of the left elbow. FINDINGS: There are increasing marginal osteophytes along the radial head and ulnohumeral joint space. There are coarse calcific densities in the soft tissues dorsal to the proximal forearm, elbow, and distal upper arm. On the AP view, there is faint lucency across the radial head neck junction probably related to mach effect associated with marginal osteophytes. No lucency is evident on other views. XR/XR elbow LT 2V IMPRESSION: This is an AP view across the radial head neck junction is probably related to artifact. Correlate for focal radial head tenderness. Increasing degenerative changes involving the elbow joint. Interval development of soft tissue calcifications dorsal to the elbow could be related to connective tissue disease, thermal injury, chronic kidney disease or other metabolic abnormality, and is a nonspecific finding. Electronically signed by: Giovanni Ramos MD 04/18/2025 04:05 PM EDT
--- NOTE | ~2025-04-13 | XR_ITS ---
CLINICAL HISTORY: fall knee pain 2 view left knee Comparison: 01/21/2024 Findings: No fractures or dislocations. [id number] degenerative narrowing of the medial and lateral tibiofemoral compartments. Small/physiological suprapatellar joint effusion. No radiopaque foreign body. Focal mild thickening of the distal patellar tendon due to tendinosis versus soft tissue injury. Partially calcified 8 mm left prepatellar subcutaneous nodule may be due to a phlebolith. Vascular calcifications. IMPRESSION: No acute fracture. New focal mild thickening of the distal patellar tendon due to tendinosis versus soft tissue injury. Correlate clinically. This document has been electronically signed by: Cinda Calvo MD on 04/13/2025 12:57:18
--- NOTE | ~2025-04-13 | XR_ITS ---
EXAMINATION: XR FOOT 1-2 VIEWS LEFT HISTORY: swelling, fall COMPARISON: There are no prior studies available for comparison. FINDINGS: AP and lateral views of the left foot are submitted. Osseous mineralization is normal. There is no fracture or dislocation. There is severe osteoarthritis of the 1st MTP joint with joint space narrowing, osteophyte formation and subchondral cyst formation. There is diffuse soft tissue swelling. XR/XR foot LT 2V IMPRESSION: 1. Diffuse soft tissue swelling. No evidence of fracture of the left foot. 2. Severe osteoarthritis of the 1st MTP joint. Electronically signed by: Gopi Rivera MD 04/19/2025 11:37 AM EDT
--- NOTE | ~2025-04-13 | XR_ITS ---
CLINICAL HISTORY: fall ankle pain 3 view right ankle Comparison: None provided Findings: Normal alignment without acute fracture. [id number] narrowing of the superomedial aspect of the ankle joint. Lateral talar process spurring forming pseudarthrosis with the opposing aspect of the distal fibula. At least small ankle joint effusion. No radiopaque foreign body. Small phleboliths. Mild lateral ankle soft tissue swelling. Posterior calcaneal spur. IMPRESSION: 1. No acute fracture This document has been electronically signed by: Cinda Calvo MD on 04/13/2025 12:37:48
--- NOTE | ~2025-04-13 | XR_ITS ---
EXAMINATION: XR SHOULDER, LEFT CLINICAL INFORMATION: pain COMPARISON: None available. TECHNIQUE: Four views of the left shoulder. FINDINGS: There is no AC joint separation. Glenohumeral joint appears intact. No fracture is apparent. XR/XR shoulder LT min 2V IMPRESSION: Unremarkable left shoulder Electronically signed by: Giovanni Ramos MD 04/17/2025 04:52 PM EDT RP
--- NOTE | ~2025-04-13 | CT_ITS ---
CLINICAL HISTORY: fall chest trauma CT chest with contrast Comparison: 04/13/2025 08:27 AM EDT: CT: CT CHEST W IV CON Findings: The heart size is normal. The visualized thyroid and mediastinum are unremarkable. The lungs are clear. There are pulmonary bullae. The upper abdomen is unremarkable. No acute fractures. IMPRESSION: 1. Unremarkable chest CT. This document has been electronically signed by: Jasbir Proctor MD on 04/13/2025 09:32:23
--- NOTE | ~2025-04-13 | XR_ITS ---
EXAMINATION: XR WRIST, LEFT CLINICAL INFORMATION: fall, pain COMPARISON: November 28, 2023 TECHNIQUE: PA and lateral views of the left wrist. FINDINGS: No acute fracture or deformity is identified . Severe erosive change involving the PIP joint of third digit is not as well demonstrated as on the prior hand x-ray. There are also chronic erosions involving the margin of the second proximal phalanx head. There is mild widening of the scapholunate interval, similar to the prior. There is a moderate joint space narrowing and marginal osteophyte involving the IP joint of thumb. There is possible active erosion involving the radial base of the second proximal phalanx. XR/XR wrist LT 2V IMPRESSION: No acute abnormality. Chronic mild widening of scapholunate interval suggesting scapholunate ligament injury. Multifocal erosive changes with possible active erosions at the radial base of the second proximal phalanx. The appearance favors inflammatory arthropathy such as rheumatoid arthritis. Moderate osteoarthritis is noted in the IP joint of thumb. Electronically signed by: Giovanni Ramos MD 04/18/2025 04:10 PM EDT
--- NOTE | ~2025-04-13 | CT_ITS ---
CLINICAL HISTORY: fall down [address] abdomen and pelvis with contrast Comparison: None provided Findings: The lung bases are clear. The gallbladder and solid organs are within normal limits. No renal stones. No bowel obstruction, pneumoperitoneum, or pneumatosis. Pelvic contents unremarkable. Normal appendix. The bones are intact. IMPRESSION: No acute findings. This document has been electronically signed by: Jasbir Proctor MD on 04/13/2025 09:48:48
--- NOTE | 2025-04-13 08:27 | ECG_ITS ---
Test Reason : FALL Blood Pressure : */* mmHG Vent. Rate : 88 BPM Atrial Rate : * BPM P-R Int : * ms QRS Dur : 90 ms QT Int : 404 ms P-R-T Axes : * 88 29 degrees QTcB Int : 488 ms Atrial fibrillation Prolonged QT Abnormal ECG When compared with ECG of 18-May-2024 21:32, QT has lengthened Referred By: Mattie Cosme Electronically Signed By: Ean Soares
--- NOTE | 2025-04-13 08:43 | ED.GENADULT ---
HPI - General Adult General Chief complaint: Fall Stated complaint: FALL,HEAD/NECK PAIN,LEG WEAKNESS PER EMS Time Seen by Provider: 04/13/25 10:41 Source: patient and EMS Mode of arrival: EMS Limitations: other (Patient poor historian) History of Present Illness ED Provider: MOLLY Cosme HPI narrative: This is a 65-year-old male past medical history significant for morbid obesity, alcohol use disorder, hypertension, chronic respiratory failure, BPH, history of nerve root compression who presents to the emergency department status post fall down 15 or 16 stairs. Patient reports his foot got caught he was trying to get to his wheelchair he fell unclear how he fell however he did hit his head he reports brief loss of consciousness. He was unable to get up from the ground. His called EMS. He is anticoagulated with Eliquis. This happened 1 hour prior to arrival. Patient reports pain everywhere. He comes in on a backboard they were unable to collar him on the field ( due to body habitus) so I instructed them to use a towel for now and we would put a head block on after patient got scanned. I instructed EMS to go straight to CT. Patient denies chest pain, shortness breath, vision changes, dizziness, abdominal pain, nausea, vomiting. Denies preceding symptoms to fall. Related Data Previous Rx's ?Medication ?Instructions ?Recorded blood-glucose meter (FreeStyle #1 ea 09/03/20 Lite Meter kit) lancets 28 gauge (FreeStyle #100 ea 02/02/21 Lancets) FreeStyle David 2 [place] (flash #1 ea 07/03/22 glucose scanning reader) FreeStyle David 2 Sensor (flash #1 ea 07/03/22 glucose sensor) multivitamin with folic acid 400 1 tab PO DAILY #90 tabs 12/06/23 mcg tablet (Daily-Carlito (with folic acid)) acetaminophen 650 mg 650 mg PO Q12H PRN pain 30 days 04/17/24 tablet,extended release (Tylenol #60 tabs Arthritis Pain) amlodipine 5 mg tablet 5 mg PO DAILY #90 tabs 04/17/24 magnesium 250 mg tablet 250 mg PO DAILY #30 tabs 05/20/24 multivitamin (Daily-Carlito tablet) 1 tab PO DAILY #90 tabs 07/18/24 thiamine HCl (vitamin B1) 100 mg 100 mg PO DAILY #30 tabs 07/18/24 tablet metoprolol tartrate 50 mg tablet 50 mg PO BID #180 tabs 09/11/24 apixaban 5 mg tablet (Eliquis) 5 mg PO BID #180 tabs 09/20/24 rosuvastatin 20 mg tablet 20 mg PO DAILY #90 tabs 10/07/24 folic acid 1 mg tablet 1 mg PO DAILY #90 tabs 11/06/24 metformin 850 mg tablet 850 mg PO DAILY #90 tabs 11/06/24 albuterol sulfate 90 mcg/actuation 2 puff inhalation QID PRN Wheezing 02/12/25 aerosol inhaler #8.5 grams furosemide 20 mg tablet 30 mg (1.5 x 20 mg) PO DAILY #135 02/21/25 tabs omeprazole 20 mg capsule,delayed 40 mg (2 x 20 mg) PO DAILY@0630 02/21/25 release #180 caps lisinopril 2.5 mg tablet 2.5 mg PO DAILY #90 tabs 03/10/25 fluoxetine 40 mg capsule 40 mg PO DAILY #90 caps 03/13/25 acetaminophen 500 mg capsule 1,000 mg (2 x 500 mg) PO Q8H PRN 03/30/25 fever or pain #14 caps cyclobenzaprine 10 mg tablet 10 mg PO TID PRN muscle spasm #14 03/30/25 tabs oxycodone 5 mg tablet 5 mg PO Q6H PRN pain #12 tabs 03/30/25 Allergies Allergy/AdvReac Type Severity Reaction Status Date / Time No Known Allergies (No Known Allergy Verified 04/13/25 09:06 Allergies*) Review of Systems Review of Systems: Yes all other systems are reviewed and are negative [facility] Past Medical History Attestation statement: The following information was validated with the patient. Source: old records reviewed and nursing notes reviewed Medical History MJ (obstructive sleep apnea) CHF (congestive heart failure) Alcohol use disorder, severe, dependence CHF (congestive heart failure) Effusion, right knee Screen for STD (sexually transmitted disease) Left ankle swelling Hypomagnesemia Diarrhea Acute UTI Physical exam Nocturia Microhematuria Elevated serum creatinine Morbid obesity Increased ammonia level Weakness of both lower extremities Dermatitis, unspecified History of cardiac arrest (~05/2020) Nicotine dependence, cigarettes, uncomplicated Personal history of colonic polyps Hypoventilation associated with obesity syndrome Encephalopathy chronic CKD (chronic kidney disease) stage 3, GFR 30-59 ml/min Cirrhosis Diabetes Obesity (BMI 35.0-39.9 without comorbidity) Wernicke encephalopathy Obstructive sleep apnea (adult) (pediatric) Rib fractures CHF (congestive heart failure) Left atrial enlargement Persistent atrial fibrillation Depression Gout Arthritis Anxiety HTN (hypertension) Surgical History History of tracheostomy (~2019) History of bronchoscopy (~2019) History of colonoscopy (~2021) History of esophagogastroduodenoscopy (EGD) (~2021) History of cardioversion (~2020) S/P percutaneous endoscopic gastrostomy (PEG) tube placement (~2019) Family History Family History Father Lung cancer Mother No problems noted. Maternal Aunt History of heart attack Sister No problems noted. Brother Cancer of kidney Brother No problems noted. Brother No problems noted. Brother No problems noted. Brother No problems noted. Brother No problems noted. Other Substance use disorder Social History Social History Household Members: Unknown / Unable to assess Housing: Unknown / Unable to assess Do you presently have visiting nurse or other home services: No Alcohol intake: current Alcohol intake frequency: 3 or more drinks per day Alcohol type: hard liquor Comment: pt refuses fall risk interventions and protocol Patient Tobacco Use Status: Tobacco use Unknown Tobacco use type: Cigarette Cigarette Packs Per Day: 0.5 Cigarettes Per Day: 10.0 Years Smoked: 40 Smoked in Last 30 Days: Yes e-Cigarette/Vaping Use: Never Used Second Hand Smoke Exposure: No Use of substances other than those prescribed or required for medical reasons: No Advance Directives: Yes Advance Directives on File: Yes Advance Directives Date on File: 06/05/20 Do you have a plan to hurt others: No Plan service: Yes Current occupational status: unemployed Cognitive needs: No Hearing needs: No Vision needs: No Physical Exam ED Exam Exam: Appearance: Alert.? Oriented X3.? Patient appears extremely uncomfortable Head: Normocephalic, atraumatic, no step-offs or deformities Eyes: Pupils equal, round and reactive to light.? ENT: Pharynx normal.? Neck: Normal inspection.? Patient reports significant neck pain with just light palpation in the paraspinous region and midline. CVS: Normal heart rate and rhythm.? Pulses normal.? Respiratory: No respiratory distress.? Breath sounds normal.? Abdomen: Soft and nontender.? Skin: Skin warm and dry.? Normal skin color.? Normal skin turgor.?+ abrasion noted to left forearm, right groin Extremities: No lower extremity edema.? No calf ttp. Global weakness Lower back: Patient reports tenderness to palpation to entire lumbar and thoracic region in the paraspinous muscles and the midline. Neuro: Oriented X 3.? No motor deficit.? No sensory deficit. CN 2-12 intact Vital Signs: Vital Signs - 24 hr 04/13/25 08:31 04/13/25 09:27 04/13/25 10:13 Temperature Pulse Rate 91 91 87 Respiratory Rate 18 18 18 Blood Pressure 122/76 102/45 L Pulse Oximetry 96 99 Oxygen Delivery Method Room Air Nasal Cannula Oxygen Flow Rate 2 04/13/25 10:23 04/13/25 11:30 04/13/25 12:50 Temperature 99.1 F 98.5 F Pulse Rate 85 91 85 Respiratory Rate 11 L 13 Blood Pressure 91/47 L 94/61 121/61 Pulse Oximetry 99 96 Oxygen Delivery Method Nasal Cannula Nasal Cannula Oxygen Flow Rate 2 2 04/13/25 14:51 04/13/25 16:04 Temperature Pulse Rate 88 79 Respiratory Rate 16 15 Blood Pressure 107/54 L 111/61 Pulse Oximetry 95 94 Oxygen Delivery Method Nasal Cannula Nasal Cannula Oxygen Flow Rate 2 2 BMI result Body Mass Index 38.0 vss Course Reevaluation(s) Reevaluation #1: CBC with leukocytosis 11.8. Neutrophil predominance. Chemistry with elevated creatinine likely secondary to poor p.o. intake/dehydration. Mag 1.2 will give Mag at this time IV. Time: 11:06 Reevaluation #2: I did order a lactic acid on this patient his lactic acid is 2.6, I suspect this is in the setting of alcohol use rather than infection. Viral swabs ordered Time: 12:03 Reevaluation #3: Follow-up lactic acid 1.0. Supporting that this is unlikely from infection. X-ray of the left knee with no acute fracture. New focal mild thickening of the distal patellar tendon due to tendinitis versus soft tissue injury. Patient is moving his knee with little discomfort. An Cole wrap will be placed. Right ankle x-ray no acute fracture. Left ankle x-ray no acute fracture. X-ray of right knee unremarkable. No fracture. CT head no definite acute intracranial findings on this motion limited steady. CT abdomen pelvis no acute findings. CT chest unremarkable. CT cervical spine no acute findings. Patient resting. Repeat CMP pending Time: 14:48 Additional Reevaluation(s): Cole wrap was placed the left knee. Repeat chemistry with slight improvement in creatinine. Appears to be around his baseline. At this time patient will be placed into observation to allow more time to be evaluated by PT and case management. At time observation was started patient common cooperative no acute distress will continue to monitor 1634 Patient's CIWA now 4. Starting to withdraw diazepam ordered IV. 1737 I also ordered a phenobarb patient to be admitted Medications Administered Discontinued Medications Generic Name Dose Route Start Last Admin Trade Name Marleny PRN Reason Stop Dose Admin Diazepam 2.5 mg 04/13/25 08:50 04/13/25 09:06 Diazepam 10 Mg/2 Ml Cartridge IVPUSH 04/13/25 08:51 2.5 mg STAT STA Administration Diazepam 2.5 mg 04/13/25 16:34 04/13/25 16:41 Diazepam 10 Mg/2 Ml Cartridge IVPUSH 04/13/25 16:35 2.5 mg STAT STA Administration Sodium Chloride 1,000 mls @ 999 mls/hr 04/13/25 11:15 04/13/25 12:55 Ns IV 04/13/25 12:15 Infused .Q1H1M JESSICA Infusion Magnesium Sulfate 2 gm in 50 mls @ 25 mls/hr 04/13/25 11:05 04/13/25 13:40 Magnesium Sulfate/H2o IV 04/13/25 13:04 Infused ONCE ONE Infusion Acetaminophen 1,000 mg in 100 mls @ 400 mls/hr 04/13/25 15:50 04/13/25 16:31 Ofirmev IV 04/13/25 16:04 Infused ONCE ONE Infusion Iohexol 100 ml 04/13/25 08:58 04/13/25 08:58 Iohexol 350 Mg/Ml 100 Ml Infus..Btl IV 04/13/25 08:59 100 ml ONCE ONE Administration Morphine Sulfate 4 mg 04/13/25 08:50 04/13/25 09:07 Morphine Sulfate 4 Mg/Ml Cartridge IVPUSH 04/13/25 08:51 4 mg ONCE ONE Administration Protocol Medical Decision Making Medical Decision Making [facility] Narrative: 0838 65-year-old male presents status post falling down 15-16 steps. Positive LOC. Positive thinners. Complaining of severe neck pain, low back pain. Due to body habitus very difficult to collar with an [place] collar. He has been placed in a collar with towels and a head block placed once patient got in the room after CT scan. Physical exam patient with obese body habitus tenderness to midline and cervical region and lumbar and thoracic region. He is in significant pain. A few abrasions noted to the left forearm and right groin Will rule out traumatic injury to head, neck, chest, abdomen pelvis. Will rule out metabolic derangements, dysrhythmias. Unlikely intracranial hemorrhage, stroke Plan- labs, imaging, urine Differential Diagnosis Differential Diagnoses: The differential diagnosis associated with the presentation includes (Will rule out traumatic injury to head, neck, chest, abdomen pelvis. Will rule out metabolic derangements, dysrhythmias. Unlikely intracranial hemorrhage, stroke) Admission/Observation Consideration of admission/observation: Escalation of care including admission/observation considered Lab Data [facility] Lab Attestation statement: I reviewed the patient's lab results. 04/13/25 09:23 04/13/25 14:24 Labs: Lab Results 04/13/25 04/13/25 04/13/25 Range/Units 09:12 09:23 11:31 WBC 11.8 H (4.8-10.8) X10*3/uL RBC 4.51 L (4.60-5.80) X10*6/uL Hgb 13.0 L (14.0-18.0) g/dl Hct 40.0 L (42.0-52.0) % MCV 88.7 (80.0-98.0) fL MCH 28.8 (27.0-33.0) pg MCHC 32.5 (31.0-36.0) g/dl RDW 14.2 (11.0-16.0) % Plt Count 282 D (160-400) X10*3/uL MPV 9.9 (9.4-12.4) fL Immature Gran % (Auto) 0.8 H (0.0-0.4) % Neut % (Auto) 76.7 H (45-73) % Lymph % (Auto) 12.5 L (20-40) % Frontier % (Auto) 9.1 (2-11) % Eos % (Auto) 0.4 (0-4) % Baso % (Auto) 0.5 (0-2) % Lymph # (Auto) 1.5 (1.2-4.9) X10*3/uL Frontier # (Auto) 1.1 (0.1-1.2) X10*3/uL Eos # (Auto) 0.1 (0.0-0.4) X10*3/uL Baso # (Auto) 0.1 (0.0-0.2) X10*3/uL Abs Immat Gran (auto) 0.10 H (0.00-0.03) X10*3/uL Absolute Neuts (auto) 9.0 H (2.0-8.3) x10*3/uL Absolute Nucleated RBC 0.000 (0.0-0.012) X10*3/uL Nucleated RBC % (auto) 0.0 (0.0-0.2) /100WBC PT 21.1 H D (10.9-12.4) SEC INR 1.8 H (0.9-1.1) Sodium 135 (135-145) mmol/L Potassium 3.4 (3.3-5.1) mmol/L Chloride 93 L (96-108) mmol/L Carbon Dioxide 27 (22-29) mmol/L Anion Gap 18 (12-20) BUN 14 (9-16) mg/dL Creatinine 1.49 H (0.5-1.4) mg/dL Estim Creat Clear Calc 70.9 Estimated GFR 47 Random Glucose 137 H (60-115) mg/dL Lactic Acid 2.6 H* (0.5-2.0) mmol/L Lactic Acid F/U @ 2Hr (0.5-2.0) mmol/L Calcium 8.7 (8.4-10.2) mg/dL Magnesium 1.2 L* (1.6-2.6) mg/dL Total Bilirubin 0.5 (0.0-1.0) mg/dL AST 20 (5-37) U/L ALT < 6 (0-40) U/L Alkaline Phosphatase 130 H (39-117) U/L Total Creatine Kinase 34 L (38-174) U/L Total Protein 7.3 (6.5-8.0) g/dL Albumin 3.4 L (3.5-5.0) g/dL Urine Color Yellow Urine Appearance Clear Urine pH 6.0 (5.0-9.0) Ur Specific [place] 1.020 (1.005-1.025) Urine Protein Negative (Neg-Trace) mg/dL Urine Glucose (UA) Negative (Negative) mg/dL Urine Ketones Negative (Negative) mg/dL Urine Blood Negative (Negative) Urine Nitrite Negative (Negative) Ur Leukocyte Esterase Negative (Negative) Urine Opiates Screen Not Detected (Not Detect) Ur Buprenorphine Scrn Not Detected (Not Detect) ng/mL Ur Oxycodone Screen Not Detected (Not Detect) ng/mL Urine Methadone Screen Not Detected (Not Detect) ng/mL Urine Fentanyl Screen Not Detected (Not Detect) Ur Barbiturates Screen Not Detected (Not Detect) Ur Phencyclidine Scrn Not Detected (Not Detect) Ur Amphetamines Screen Not Detected (Not Detect) U Benzodiazepines Scrn Not Detected (Not Detect) Urine Cocaine Screen Not Detected (Not Detect) U Marijuana (THC) Screen Not Detected (Not Detect) Ethyl Alcohol 62 mg/dL Influenza Type A (PCR) (Negative) Influenza Type B (PCR) (Negative) RSV RNA Qual (PCR) (Negative) SARS-CoV-2 RNA (RT-PCR) (Negative) 04/13/25 04/13/25 04/13/25 Range/Units 12:12 14:06 14:24 WBC (4.8-10.8) X10*3/uL RBC (4.60-5.80) X10*6/uL Hgb (14.0-18.0) g/dl Hct (42.0-52.0) % MCV (80.0-98.0) fL MCH (27.0-33.0) pg MCHC (31.0-36.0) g/dl RDW (11.0-16.0) % Plt Count (160-400) X10*3/uL MPV (9.4-12.4) fL Immature Gran % (Auto) (0.0-0.4) % Neut % (Auto) (45-73) % Lymph % (Auto) (20-40) % Frontier % (Auto) (2-11) % Eos % (Auto) (0-4) % Baso % (Auto) (0-2) % Lymph # (Auto) (1.2-4.9) X10*3/uL [place] # (Auto) (0.1-1.2) X10*3/uL Eos # (Auto) (0.0-0.4) X10*3/uL Baso # (Auto) (0.0-0.2) X10*3/uL Abs Immat Gran (auto) (0.00-0.03) X10*3/uL Absolute Neuts (auto) (2.0-8.3) x10*3/uL Absolute Nucleated RBC (0.0-0.012) X10*3/uL Nucleated RBC % (auto) (0.0-0.2) /100WBC PT (10.9-12.4) SEC INR (0.9-1.1) Sodium 137 (135-145) mmol/L Potassium 3.6 (3.3-5.1) mmol/L Chloride 97 (96-108) mmol/L Carbon Dioxide 29 (22-29) mmol/L Anion Gap 15 (12-20) BUN 13 (9-16) mg/dL Creatinine 1.46 H (0.5-1.4) mg/dL Estim Creat Clear Calc 72.3 Estimated GFR 49 Random Glucose 114 (60-115) mg/dL Lactic Acid (0.5-2.0) mmol/L Lactic Acid F/U @ 2Hr 1.0 (0.5-2.0) mmol/L Calcium 8.1 L D (8.4-10.2) mg/dL Magnesium 1.6 (1.6-2.6) mg/dL Total Bilirubin 0.6 (0.0-1.0) mg/dL AST 22 (5-37) U/L ALT < 6 (0-40) U/L Alkaline Phosphatase 110 (39-117) U/L Total Creatine Kinase (38-174) U/L Total Protein 6.3 L (6.5-8.0) g/dL Albumin 3.0 L (3.5-5.0) g/dL Urine Color Urine Appearance Urine pH (5.0-9.0) Ur Specific [place] (1.005-1.025) Urine Protein (Neg-Trace) mg/dL Urine Glucose (UA) (Negative) mg/dL Urine Ketones (Negative) mg/dL Urine Blood (Negative) Urine Nitrite (Negative) Ur Leukocyte Esterase (Negative) Urine Opiates Screen (Not Detect) Ur Buprenorphine Scrn (Not Detect) ng/mL Ur Oxycodone Screen (Not Detect) ng/mL Urine Methadone Screen (Not Detect) ng/mL Urine Fentanyl Screen (Not Detect) Ur Barbiturates Screen (Not Detect) Ur Phencyclidine Scrn (Not Detect) Ur Amphetamines Screen (Not Detect) U Benzodiazepines Scrn (Not Detect) Urine Cocaine Screen (Not Detect) U Marijuana (THC) Screen (Not Detect) Ethyl Alcohol mg/dL Influenza Type A (PCR) NEGATIVE (Negative) Influenza Type B (PCR) NEGATIVE (Negative) RSV RNA Qual (PCR) NEGATIVE (Negative) SARS-CoV-2 RNA (RT-PCR) NEGATIVE (Negative) Independent Interpretation I performed an independent interpretation of an: EKG, Plain X-Ray and CT Scan Radiology Impression Discussion of test interpretation with radiology: I have reviewed the radiologist's reading. Independent Historian Clinical information obtained from an independent historian. History obtained from or confirmed by: EMS External Record Review External record reviewed: Inpatient record, Office record, Outpatient record, Prior outpatient labs, Prior outpatient radiology, Primary care record and Outside ED record Chronic Conditions Patient?s care impacted by: Other (see hpi ) Critical Care Time Critical Care Time Critical Care Time: Yes Total Critical Care Time: 35 Attestation: I attest to this time spent taking care of the patient, obtaining history, physical, reviewing labs, imaging, speaking to my attending and or speaking to specialist. Or preforming a procedure Discharge Plan Discharge Clinical Impression: Alcohol abuse with withdrawal, Fall, Neck pain, Obesity, Concussion with loss of consciousness Patient Disposition: Admitted As Inpatient Print Language: French
[2025-04-13] MEDS: iohexoL 350 MG/ML 100 ML INFUS..BTL IV (08:58)
[2025-04-13] MEDS: diazePAM 10 MG/2 ML CARTRIDGE 2.5 MG IVPUSH ×2 (09:06→16:41)
--- NOTE | 2025-04-13 09:30 | PC.NURSE ---
Arrived via ems with towel collar in place. Per ems patient has chronic lower leg weakness and they frequently go to his house for lift assist. Per ems patient tried to get to a standing position by using the stair/ handrail and ends up falling down the stairs. Patient reporting neck pain. Brought to CT, transferred with 4 staff assist along with EMS using backboard to CT table. After CT brought to room 4. c collar unable to be placed d/t large body habitus. Cervical blocks obtained via ems and placed. Secured in place with PA at bedside. Patient reporting that he fell last night and tried crawling. Per EMS stated that he fell this morning. 2nd IV line placed in right forearm. Patient educated to not move head. Head of bed flat. VSS, awaiting CT results
[2025-04-13 09:36] LABS: Hematocrit 40.0 % (42.0-52.0); Hemoglobin 13.0 g/dl (14.0-18.0); Imm Gran Abs Auto 0.10 X10*3/uL (0.00-0.03); Imm Gran Pct Auto 0.8 % (0.0-0.4); Lymphocytes Absolute Auto 1.5 X10*3/uL (1.2-4.9); MANUAL DIFF FLAG NO; Mean Corpuscular HGB Conc 32.5 g/dl (31.0-36.0); Mean Corpuscular Hemoglobin 28.8 pg (27.0-33.0); Mean Corpuscular Volume 88.7 fL (80.0-98.0); NRBC Abs Auto 0.000 X10*3/uL (0.0-0.012); NRBC Pct Auto 0.0 /100WBC (0.0-0.2); Platelet Count 282 X10*3/uL (160-400); Red Blood Count 4.51 X10*6/uL (4.60-5.80); White Blood Count 11.8 X10*3/uL (4.8-10.8)
[2025-04-13 09:36] LABS: Appearance Urine Clear; Glucose Urine UA Negative (Negative); PH 6.0 (5.0-9.0); Specific Gravity - Urine 1.020 (1.005-1.025)
[2025-04-13 09:43] LABS: INTERNATIONAL NORM RATIO 1.8 (0.9-1.1); Prothrombin Time 21.1 SEC (10.9-12.4)
[2025-04-13 09:55] LABS: Cannabinoid Screen Urine Not Detected (Not Detect)
[2025-04-13 10:00] LABS: Alanine Aminotransferase < 6 U/L (0-40); Albumin Level 3.4 g/dL (3.5-5.0); Alkaline Phosphatase 130 U/L (39-117); Anion Gap 18 (12-20); Aspartate Amino Transferase 20 U/L (5-37); Blood Urea Nitrogen 14 mg/dL (9-16); Calcium 8.7 mg/dL (8.4-10.2); Carbon Dioxide 27 mmol/L (22-29); Chloride 93 mmol/L (96-108); Creatinine Clr Calc Pharmacy 70.9; Estimated Glomerular Filt Rate 47; Magnesium 1.2 mg/dL (1.6-2.6); Potassium 3.4 mmol/L (3.3-5.1); Sodium 135 mmol/L (135-145); Total Protein 7.3 g/dL (6.5-8.0)
--- OUTSIDE RECORDS SUMMARY | 2025-04-13 10:15 | XMS_ITS | Encounter Summary ---
Author Organization [employer] Address [address] [place] [address] Care Team Providers Care Any Commodity Buyer Name Role Phone Jasbir Morocho MD Primary Care Provider + [phone] Encounter Details Date Type Department Care Team (Late st Contact Info) Description 05/21/2024 Lab Requisition [facility] - Main Lab [address] [facility] [place] [address] Jasbir Morocho MD [address], [place] [id number] Other child caregiver (current) drug therapy; Unspecified cirrhosis of liver [...] disease, unspecified Unspecified atrial fibrillation (CMS/HCC) Other detention (current) drug therapy HEMOGLOBIN A1C Routine 05/21/2024 6:42 AM EST Unspecified cirrhosis of liver (CMS/HCC) Unspecified dementia, unspecified severity, without behavioral disturbance, psychotic disturbance, mood disturbance, and anxiety (CMS/HCC) Chronic kidney disease, unspecified Unspecified atrial fibrillation (CMS/HCC) Other child caregiver (current) drug therapy BASIC METABOLIC PANEL Routine 05/21/2024 6:42 AM EST Unspecified cirrhosis of liver (CMS/HCC) Unspecified dementia, unspecified severity, without behavioral disturbance, psychotic disturbance, mood disturbance, and anxiety (CMS/HCC) Chronic kidney disease, unspecified Unspecified atrial fibrillation (CMS/HCC) Other child caregiver (current) drug therapy documented in this encounter Results * Hemoglobin A1c (05/21/2024 6:42 AM EST) Pathologist [facility] Hemoglobin A1C 5.9 <6.5 % LAB CHEMISTRY METHOD 05/21/2024 12:30 PM EST [facility] Mean Bld Glu Estim. 123 mg/dL LAB CHEMISTRY METHOD 05/21/2024 12:30 PM EST [facility] Blood Venous blood specimen / Unknown Venipuncture / Unknown 05/21/2024 6:42 AM EST 05/21/2024 9:50 AM EST us Jasbir Morocho MD LAB BLOOD ORDERABLES Final R esult [facility] [address] [place] [address], * (ABNORMAL) Basic metabolic panel (05/21/2024 6:42 AM EST) Pathologist [facility] Sodium 138 133 - 145 mmol/L LAB CHEMISTRY METHOD 05/21/2024 10:23 AM EST [facility] Potassium 4.3 3.5 - 5.5 mmol/L LAB CHEMISTRY METHOD 05/21/2024 10:23 AM EST [facility] Chloride 100 96 - 110 mmol/L LAB CHEMISTRY METHOD 05/21/2024 10:23 AM EST [facility] CO2 31 21 - 32 mmol/L LAB CHEMISTRY METHOD 05/21/2024 10:23 AM [facility] Anion Gap 7 3 - 11 LAB CHEMISTRY METHOD 05/21/2024 10:23 AM [facility] Glucose 105(H) 70 - 100 mg/dL LAB CHEMISTRY METHOD 05/21/2024 10:23 AM [facility] BUN 14 5 - 25 mg/dL LAB CHEMISTRY METHOD 05/21/2024 10:23 AM [facility] Creatinine 0.90 0.70 - 1.30 mg/dL LAB CHEMISTRY METHOD 05/21/2024 10:23 AM [facility] eGFR 96 >=60 mL/min/1. 73m2 LAB CHEMISTRY METHOD 05/21/2024 10:23 AM [facility] Comment:Calculation based on the Chronic Kidney Disease Epidemiology Collaboration (CKD-EPI) equation refit without adjustment for race. BUN/Creatinine Ratio 15.6 LAB CHEMISTRY METHOD 05/21/2024 10:23 AM [facility] Calcium 9.4 8.5 - 10.5 mg/dL LAB CHEMISTRY METHOD 05/21/2024 10:23 AM [facility] Blood Venous blood specimen / Unknown Venipuncture / Unknown 05/21/2024 6:42 AM EST 05/21/2024 9:50 AM EST Jasbir Morocho MD LAB BLOOD ORDERABLES Final R esult [facility] [address] [place] [address], * (ABNORMAL) Complete blood count (05/21/2024 6:42 AM EST) WBC 12.7(H) 4.8 - 10.8 K/mcL LAB HEMETOLOGY METHOD 05/21/2024 10:07 AM [facility] RBC 3.70(L) 4.50 - 5.50 M/mcL LAB HEMETOLOGY METHOD 05/21/2024 10:07 AM [facility] Hemoglobin 10.7(L) 13.5 - 17.5 g/dL LAB HEMETOLOGY METHOD 05/21/2024 10:07 AM [facility] Hematocrit 34.1(L) 42.0 - 54.0 % LAB HEMETOLOGY METHOD 05/21/2024 10:07 AM [facility] MCV 93.4 79.0 - 98.0 FL LAB HEMETOLOGY METHOD 05/21/2024 10:07 AM [facility] MCH 29.3 27.0 - 32.0 pcg LAB HEMETOLOGY METHOD 05/21/2024 10:07 AM [facility] MCHC 31.4(L) 32.0 - 37.0 g/dL LAB HEMETOLOGY METHOD 05/21/2024 10:07 AM [facility] RDW 15.4(H) 11.0 - 15.0 % LAB HEMETOLOGY METHOD 05/21/2024 10:07 AM [facility] Platelets 238 130 - 400 K/mcL LAB HEMETOLOGY METHOD 05/21/2024 10:07 AM [facility] MPV 12.3(H) 7.0 - 11.0 FL LAB HEMETOLOGY METHOD 05/21/2024 10:07 AM [facility] NRBC 0.0 <1.0 % LAB HEMETOLOGY METHOD 05/21/2024 10:07 AM [facility] NRBC Absolute 0.00 <0.10 K/mcL LAB HEMETOLOGY METHOD 05/21/2024 10:07 AM [facility] Blood Venous blood specimen / Unknown Venipuncture / Unknown 05/21/2024 6:42 AM EST 05/21/2024 9:50 AM EST Jasbir Morocho MD LAB BLOOD ORDERABLES Final R esult [facility] LAB [address] [place] [address], documented in this encounter Visit Diagnoses Diagnosis Other child caregiver (current) drug therapy Unspecified cirrhosis of liver ([facility] V24, [facility] V28) Unspecified dementia, unspecified severity, without behavioral disturbance, psychotic disturbance, mood disturbance, and anxiety ([facility] V24, [facility] V28) Chronic kidney disease, unspecified Unspecified atrial fibrillation ([facility] V24, [facility] V28) documented in this encounter Care Teams Any Commodity Buyer Relationship Specialty Start Date End Date Jasbir Morocho MD [address] [place] [address] PCP - General Family Medicine 05/22/24 documented as of this encounter
--- OUTSIDE RECORDS SUMMARY | 2025-04-13 10:15 | XMS_ITS | Encounter Summary ---
Author Organization [employer] Address [address] [place] [address] Care Team Providers Care Scale Model Maker Name Role Phone Jasbir Morocho MD Primary Care Provider [phone] Encounter Details Date Type Department Care Team (Latest Contact Info) Description 05/28/2024 Lab Requisition [facility] Lab [address] [place] [address] Jasbir Morocho MD [address] [place] [address] Hepatic encephalopathy (CMS/HCC V24, CMS/HCC V28); Essential [...] LAB CHEMISTRY METHOD 05/29/2024 1:18 PM EST [facility] Potassium 4.9 3.5 - 5.5 mmol/L LAB CHEMISTRY METHOD 05/29/2024 1:18 PM EST [facility] Chloride 96 96 - 110 mmol/L LAB CHEMISTRY METHOD 05/29/2024 1:18 PM EST [facility] CO2 28 21 - 32 mmol/L LAB CHEMISTRY METHOD 05/29/2024 1:18 PM [facility] Anion Gap 10 3 - 11 LAB CHEMISTRY METHOD 05/29/2024 1:18 PM [facility] Glucose 122(H) 70 - 100 mg/dL LAB CHEMISTRY METHOD 05/29/2024 1:18 PM [facility] BUN 26(H) 5 - 25 mg/dL LAB CHEMISTRY METHOD 05/29/2024 1:18 PM [facility] Creatinine 1.61(H) 0.70 - 1.30 mg/dL LAB CHEMISTRY METHOD 05/29/2024 1:18 PM [facility] eGFR 48(L) >=60 mL/min/1. 73m2 LAB CHEMISTRY METHOD 05/29/2024 1:18 PM [facility] Comment:Calculation based on the Chronic Kidney Disease Epidemiology Collaboration (CKD-EPI) equation refit without adjustment for race. BUN/Creatinine Ratio 16.1 LAB CHEMISTRY METHOD 05/29/2024 1:18 PM [facility] Calcium 10.4 8.5 - 10.5 mg/dL LAB CHEMISTRY METHOD 05/29/2024 1:18 PM [facility] Blood Venous blood specimen / Unknown Venipuncture / Unknown 05/29/2024 7:56 AM EST 05/29/2024 11:51 AM EST us Jasbir Morocho MD LAB BLOOD ORDERABLES Final R esult [facility] [address] [place] [address], documented in this encounter Visit Diagnoses Diagnosis Hepatic encephalopathy (CMS/HCC V24, CMS/HCC V28) Hepatic encephalopathy Essential (primary) hypertension Unspecified essential hypertension documented in this encounter Care Teams Scale Model Maker Relationship Specialty Start Date End Date Jasbir Morocho MD [address] [place] [address] PCP - General Family Medicine 05/22/24 documented as of this encounter
--- OUTSIDE RECORDS SUMMARY | 2025-04-13 10:15 | XMS_ITS | Encounter Summary ---
Author Organization [employer] Address [address] [place] [address] Care Team Providers Care Canopy Inspector Name Role Phone Jasbir Morocho MD Primary Care Provider [phone] Encounter Details Date Type Department Care Team (Latest Contact Info) Description 06/11/2024 Lab Requisition [facility] - Main Lab [address] [place] [address] Jasbir Morocho MD [address] [place] [address] Hepatic encephalopathy (CMS/HCC V24, CMS/HCC V28); Essential [...] LAB CHEMISTRY METHOD 06/12/2024 8:57 AM EST [facility] Blood Venous blood specimen / Unknown Venipuncture / Unknown 06/12/2024 7:15 AM EST 06/12/2024 8:35 AM EST us Jasbir Morocho MD LAB BLOOD ORDERABLES Final R esult [facility] [address] [place] [address], [place] [phone] * (ABNORMAL) Basic metabolic panel (06/12/2024 7:15 [...] AM [facility] Comment:Calculation based on the Chronic Kidney Disease Epidemiology Collaboration (CKD-EPI) equation refit without adjustment for race. BUN/Creatinine Ratio 16.4 LAB CHEMISTRY METHOD 06/12/2024 9:04 AM [facility] Calcium 9.9 8.5 - 10.5 mg/dL LAB CHEMISTRY METHOD 06/12/2024 9:04 AM [facility] Blood Venous blood specimen / Unknown Venipuncture / Unknown 06/12/2024 7:15 AM EST 06/12/2024 8:35 AM EST us Jasbir Morocho MD LAB BLOOD ORDERABLES Final R esult [facility] [address] [place] [address], * (ABNORMAL) Complete blood count (06/12/2024 7:15 AM EST) WBC 11.3(H) 4.8 - 10.8 K/mcL LAB HEMETOLOGY METHOD 06/12/2024 8:51 AM [facility] RBC 4.40(L) 4.50 - 5.50 M/[facility] LAB HEMETOLOGY METHOD 06/12/2024 8:51 AM [facility] Hemoglobin 12.7(L) 13.5 - 17.5 g/dL LAB HEMETOLOGY METHOD 06/12/2024 8:51 AM [facility] Hematocrit 41.2(L) 42.0 - 54.0 % LAB HEMETOLOGY METHOD 06/12/2024 8:51 AM [facility] MCV 94.5 79.0 - 98.0 FL LAB HEMETOLOGY METHOD 06/12/2024 8:51 AM [facility] MCH 29.1 27.0 - 32.0 pcg LAB HEMETOLOGY METHOD 06/12/2024 8:51 AM [facility] MCHC 30.8(L) 32.0 - 37.0 g/dL LAB HEMETOLOGY METHOD 06/12/2024 8:51 AM [facility] RDW 14.4 11.0 - 15.0 % LAB HEMETOLOGY METHOD 06/12/2024 8:51 AM EST [facility] Platelets 224 130 - 400 K/mcL LAB HEMETOLOGY METHOD 06/12/2024 8:51 AM [facility] MPV 11.3(H) 7.0 - 11.0 FL LAB HEMETOLOGY METHOD 06/12/2024 8:51 AM EST [facility] NRBC 0.0 <1.0 % LAB HEMETOLOGY METHOD 06/12/2024 8:51 AM EST [facility] NRBC Absolute 0.00 <0.10 K/mcL LAB HEMETOLOGY METHOD 06/12/2024 8:51 AM EST [facility] Blood Venous blood specimen / Unknown Venipuncture / Unknown 06/12/2024 7:15 AM EST 06/12/2024 8:35 AM EST us Jasbir Morocho MD LAB BLOOD ORDERABLES Final R esult [facility] [address] [place] [address], documented in this encounter Visit Diagnoses Diagnosis Hepatic encephalopathy (CMS/HCC V24, CMS/HCC V28) Hepatic encephalopathy Essential (primary) hypertension Unspecified essential hypertension documented in this encounter Care Teams Canopy Inspector Relationship Specialty Start Date End Date Jasibr Morcoho MD [address] [place] [address] PCP - General Family Medicine 05/22/24 documented as of this encounter
--- OUTSIDE RECORDS SUMMARY | 2025-04-13 10:15 | XMS_ITS | Clinical Summary ---
Author Organization [address] [facility] Address [address] [place] [address] Phone Care Team Providers Care Burr Picker Name Role Phone Jasbir Morocho MD Primary [...] 03/04/2008 03/04/1998, 02/21/1986, 12/22/1982, Additional history exists RSV Immunization Adult Patients (1 - Risk 50-74 years 1-dose series) 2011 Zoster Vaccines (1 of 2) 2011 Hepatitis B Vaccines (1 of 3 - Risk 3-dose series) 2021 04/22/1999, 09/26/1998, 10/10/1997 Cholesterol Screening (Lipid Panel) 05/30/2022 HIV Screening 05/30/2022 Hepatitis C Screening 05/30/2022 Medicare Annual Wellness Visit 05/30/2022 Social Influencers of Health Screening 05/30/2022 Depression Screening 06/27/2024 COVID-19 Vaccine ( - season) 2025 10/13/2020 Influenza Vaccine (#1) [...] mmol/L LAB CHEMISTRY METHOD 06/12/2024 9:04 AM [facility] Potassium 4.5 3.5 - 5.5 mmol/L LAB CHEMISTRY METHOD 06/12/2024 9:04 AM [facility] Chloride 100 96 - 110 mmol/L LAB CHEMISTRY METHOD 06/12/2024 9:04 AM [facility] CO2 32 21 - 32 mmol/L LAB CHEMISTRY METHOD 06/12/2024 9:04 AM [facility] Anion Gap 7 3 - 11 LAB CHEMISTRY METHOD 06/12/2024 9:04 AM [facility] Glucose 92 70 - 100 mg/dL LAB CHEMISTRY METHOD 06/12/2024 9:04 AM [facility] BUN 27(H) 5 - 25 mg/dL LAB CHEMISTRY METHOD 06/12/2024 9:04 AM [facility] Creatinine 1.65(H) 0.70 - 1.30 mg/dL LAB CHEMISTRY METHOD 06/12/2024 9:04 AM EST [facility] eGFR 46(L) >=60 mL/min/1. 73m2 LAB CHEMISTRY METHOD 06/12/2024 9:04 AM EST [facility] Comment:Calculation based on the Chronic Kidney Disease Epidemiology Collaboration (CKD-EPI) equation refit without adjustment for race. BUN/Creatinine Ratio 16.4 LAB CHEMISTRY METHOD 06/12/2024 9:04 AM [facility] Calcium 9.9 8.5 - 10.5 mg/dL LAB CHEMISTRY METHOD 06/12/2024 9:04 AM [facility] Blood Venous blood specimen / Unknown Venipuncture / Unknown 06/12/2024 7:15 AM EST 06/12/2024 8:35 AM EST us Jasbir Morocho MD LAB BLOOD ORDERABLES Final R esult [facility] [address] [place] [address], from Last 3 Months or Most Recently Relevant to Health Maintenance Insurance MEDICAID - [place] MEDICARE [facility] Care Teams Burr Picker Relationship Specialty Start Date End Date Jasbir Morocho MD [address] [place] [address] PCP - General Family Medicine 05/22/24
--- OUTSIDE RECORDS SUMMARY | 2025-04-13 10:15 | XMS_ITS | Encounter Summary ---
Author Organization [email or web address] Address [address] [place] [address] Care Team Providers Care Descriptive Catalog Librarian Name Role Phone Jasbir Morocho MD Primary Care Provider [phone] Encounter Details Date Type Department Care Team (Latest Contact Info) Description 06/18/2024 Lab Requisition [facility] - Main Lab [address] [facility] [place] [address] Jasbir Morocho MD [address] [place] [phone] Hepatic encephalopathy (CMS/HCC V24, CMS/HCC V28) Social [...] encephalopathy documented in this encounter Care Teams Descriptive Catalog Librarian Relationship Specialty Start Date End Date Jasbir Morocho MD [address] [place] [address] PCP - General Family Medicine 05/22/24 documented as of this encounter
--- OUTSIDE RECORDS SUMMARY | 2025-04-13 10:15 | XMS_ITS | Encounter Summary ---
Author Organization [employer] Address [address] [place] [address] Care Team Providers Care Small Brake Form Operator Name Role Phone Jasbir Morocho MD Primary Care Provider [phone] Encounter Details Date Type Department Care Team (Latest Contact Info) Description 05/29/2024 Lab Requisition [facility] - Main Lab [address] [place] [address] Jasbir Morocho MD [address] [place] [address] Acute kidney failure, unspecified (CMS/HCC V24); Hepatic [...] LAB CHEMISTRY METHOD 05/29/2024 2:59 PM EST [facility] Blood Venous blood specimen / Unknown 05/29/2024 10:49 AM EST 05/29/2024 2:40 PM EST us Jasbir Morocho MD LAB BLOOD ORDERABLES Final R esult [facility] HOSPITAL LAB [address] [place] [address], documented in this encounter Visit Diagnoses Diagnosis Acute kidney failure, unspecified (CMS/HCC V24) Acute kidney failure, unspecified Hepatic encephalopathy (CMS/HCC V24, CMS/HCC V28) Hepatic encephalopathy Essential (primary) hypertension Unspecified essential hypertension documented in this encounter Care Teams Small Brake Form Operator Relationship Specialty Start Date End Date Jasbir Morocho MD [address] [place] [address] PCP - General Family Medicine 05/22/24 documented as of this encounter
--- OUTSIDE RECORDS SUMMARY | 2025-04-13 10:15 | XMS_ITS ---
Author Organization [facility] Care Team Providers Care Biosolids Management Technician Name Role Phone Tika Carbajalnsley Unavailable Unavailable Ida Moreno Unavailable Unavailable Allie Martinez Unavailable Unavailable Maribel Ngo Unavailable Unavailable Fiona LOPEZ, Cole Florian Unavailable Unavailable Nayely, Zhanna Unavailable Unavailable Maingi, Shadrack Unavailable Unavailable Allergies and adverse reactions No Known Allergies Care Team Name Role Address Phone Organization Dates Allie Martinez PCP [address], [facility], [facility] (Office): : [facility] 01/20/2021 - 02/10/2021 Gildahany Carbajal [address], [address], [facility] (Office): : [phone] [facility] 01/20/2021 - 02/10/2021 [place], [address], [facility] (Office): : [facility] 01/20/2021 - 02/10/2021 Maribel Ngo [address] [facility] [address], [place], [address], [facility] (Office): : [phone] [facility] 01/20/2021 - 02/10/2021 Cole Jaimes NP [address] [place] [address], [facility] (Office): [facility] 01/20/2021 - 02/10/2021 Zhanna Adler [address] [facility] [address], [place], [address], [facility] (Office): : [phone] [facility] 01/20/2021 - 02/10/2021 Emre Agustin [address] [facility] [address], [place], [address], [facility] (Office): : [facility] 01/20/2021 - 02/10/2021 Goals Section Goals Description Status Target Date Any respiratory distress I h ave will be quickly noted and addressed. Active 04/21/2021 I will have no S/S of UTI or skin breakdown due to incontinence through the next review date Active 04/21/2021 I will keep my body hydrated and not exhibit S&S of dehydration through the next review date Active 04/21/2021 I will work with the IDT to ensure a safe discha rge. Active 04/21/2021 My MOLST will be respected. Active 03/28 My PASRR matches my SNF plac ement and staff will assist me accordingly. Active 04/21/2021 The resident will improve cu rrent level of function in (SPECIFY ADLs) through the review date. Resident will be able to: (SPECIFY) Active 04/21/2021 The resident will maintain c urrent level of function in (SPECIFY) through the review date. Active 04/21/2021 Will have intake >75% of madi ls W ill have stable weights 2' diuretic use, gradual loss beneficial as well W ill tolerate a therapeutic diet S kin intact W ill have no s/sx of dehydration Active 04/21/2021 Mental Status Section Date Assessment Total Score Description 02/10/2021 CAM 0 No delirium ind icated 01/27/2021 BIMS 15 cognitively int act CAM 0 No delirium ind icated [id number] Insurance Providers Plan of Treatment Section Interventions Intervention Code Code System Display Name Proposed D ate Problems Problem # Description Date of onset Resolved Date Code CodeSystem Concern Status 1 RESPIRATORY FAILURE, UNSPECIFIED WITH HYPERCAPNIA 01/28/[address] active 2 ABDOMINAL DISTENSION (GASEOUS) 01/20/[address] active 3 ACUTE AND CHRONIC RESPIRATORY FAILURE, UNSPECIFIED WHETHER WITH HYPOXIA OR HYPERCAPNIA 01/20/[address] active 4 ALCOHOL ABUSE, UNCOMPLICATED 01/20/[address] active 5 ALCOHOL DEPENDENCE, UNCOMPLICATED 01/20/[address] active 6 ANOXIC BRAIN DAMAGE, NOT ELSEWHERE CLASSIFIED 01/20/[address] active 7 DEPENDENCE ON OTHER ENABLING MACHINES AND DEVICES 01/20/[address] active 8 ESSENTIAL (PRIMARY) HYPERTENSION 01/20/[address] active 9 GOUT, UNSPECIFIED 01/20/[address] active 10 MAJOR DEPRESSIVE DISORDER, SINGLE EPISODE, UNSPECIFIED 01/20/[address] active 11 METABOLIC ENCEPHALOPATHY 01/20/[address] active 12 OBSTRUCTIVE SLEEP APNEA (ADULT) (PEDIATRIC) 01/20/[address] active 13 OTHER ABNORMALITIES OF GAIT AND MOBILITY 01/20/[address] active 14 OTHER SPECIFIED HEALTH STATUS 01/20/[address] active 15 PERMANENT ATRIAL FIBRILLATION 01/20/[address] active 16 PERSONAL HISTORY OF OTHER DISEASES OF THE DIGESTIVE SYSTEM 01/20/[address] active 17 PERSONAL HISTORY OF SUDDEN CARDIAC ARREST 01/20/[address] active 18 TYPE 2 DIABETES MELLITUS WITHOUT COMPLICATIONS 01/20/[address] active 19 UNSPECIFIED DIASTOLIC (CONGESTIVE) HEART FAILURE 01/20/[address] active 20 WEAKNESS 01/20/[address] active 21 WERNICKE'S ENCEPHALOPATHY 01/20/[address] active Reason for Referral No Reasons for Referral Entered Social History Social History Observation Description Start Date End Date Code Code System Current Smoking Status Tobacco smoking consumption unknown 990023322 SNOMED CT Sex Assigned At Male 1960 67394-7 [facility] Gender Identity Sexual Orientation Vital Signs Code Code System Vitals Name Values and Units Timing Information 9279-1 [facility] Respiratory Rate Value=14.0 Units=/m in 02/10/2021 88733-6 [facility] O2 % BldC Oximetry Value=97.0 Units= % 02/10/2021 8462-4 [facility] Blood Pressure-Diastolic Value=78 Un its=mmHg 02/10/2021 8480-6 [facility] Blood Pressure-Systolic Uoeqs=877 Un its=mmHg 02/10/2021 8310-5 [facility] Body Temperature Value=97.6 Units= F 02/10/2021 8867-4 [facility] Heart rate Value=67.0 Units=/min 18378-2 [facility] Pain Level Value=4.0 02/10/2021 39156-2 [facility] Weight Mbxzl=958.0 Units=Lbs 09/2020
--- OUTSIDE RECORDS SUMMARY | 2025-04-13 10:15 | XMS_ITS | Encounter Summary ---
Author Organization [facility] Address [address] [place] [address] Care Team Providers Care Hvac Project Manager Name Role Phone Jasbir Morocho MD Primary Care Provider [phone] Encounter Details Date Type Department Care Team (Latest Contact Info) Description 06/04/2024 Lab Requisition [facility] - Main Lab [address] [place] [address] Jasbir Morocho MD [address] [place] [address] Hepatic encephalopathy (CMS/HCC V24, CMS/HCC V28); Essential [...] LAB CHEMISTRY METHOD 06/05/2024 8:27 AM EST [facility] LAB Blood Venous blood specimen / Unknown Venipuncture / Unknown 06/05/2024 6:55 AM EST 06/05/2024 8:01 AM EST us Jasbir Morocho MD LAB BLOOD ORDERABLES Final R esult [facility] LAB [address] [place] [address], * (ABNORMAL) Basic metabolic panel (06/05/2024 6:55 AM EST) Sodium 138 133 - 145 mmol/L LAB CHEMISTRY METHOD 06/05/2024 9:18 AM [facility] LAB Potassium 4.5 3.5 - 5.5 mmol/L LAB CHEMISTRY METHOD 06/05/2024 9:18 AM [facility] LAB Chloride 100 96 - 110 mmol/L LAB CHEMISTRY METHOD 06/05/2024 9:18 AM [facility] LAB CO2 33(H) 21 - 32 mmol/L LAB CHEMISTRY METHOD 06/05/2024 9:18 AM [facility] LAB Anion Gap 5 3 - 11 LAB CHEMISTRY METHOD 06/05/2024 9:18 AM [facility] LAB Glucose 109(H) 70 - 100 mg/dL LAB CHEMISTRY METHOD 06/05/2024 9:18 AM [facility] LAB BUN 31(H) 5 - 25 mg/dL LAB CHEMISTRY METHOD 06/05/2024 9:18 AM [facility] LAB Creatinine 1.81(H) 0.70 - 1.30 mg/dL LAB CHEMISTRY METHOD 06/05/2024 9:18 AM [facility] LAB eGFR 41(L) >=60 mL/min/1. 73m2 LAB CHEMISTRY METHOD 06/05/2024 9:18 AM [facility] LAB Comment:Calculation based on the Chronic Kidney Disease Epidemiology Collaboration (CKD-EPI) equation refit without adjustment for race. BUN/Creatinine Ratio 17.1 LAB CHEMISTRY METHOD 06/05/2024 9:18 AM [facility] LAB Calcium 9.7 8.5 - 10.5 mg/dL LAB CHEMISTRY METHOD 06/05/2024 9:18 AM [facility] LAB Blood Venous blood specimen / Unknown Venipuncture / Unknown 06/05/2024 6:55 AM EST 06/05/2024 8:41 AM EST Jasbir Morocho MD LAB BLOOD ORDERABLES Final R esult [facility] LAB [address] [place] [address], * (ABNORMAL) Complete blood count (06/05/2024 6:55 AM EST) WBC 10.5 4.8 - 10.8 K/mcL LAB HEMETOLOGY METHOD 06/05/2024 8:59 AM [facility] LAB RBC 4.10(L) 4.50 - 5.50 M/[facility] LAB HEMETOLOGY METHOD 06/05/2024 8:59 AM [facility] LAB Hemoglobin 12.2(L) 13.5 - 17.5 g/dL LAB HEMETOLOGY METHOD 06/05/2024 8:59 AM [facility] LAB Hematocrit 39.5(L) 42.0 - 54.0 % LAB HEMETOLOGY METHOD 06/05/2024 8:59 AM [facility] LAB MCV 95.6 79.0 - 98.0 FL LAB HEMETOLOGY METHOD 06/05/2024 8:59 AM [facility] LAB MCH 29.5 27.0 - 32.0 pcg LAB HEMETOLOGY METHOD 06/05/2024 8:59 AM [facility] LAB MCHC 30.9(L) 32.0 - 37.0 g/dL LAB HEMETOLOGY METHOD 06/05/2024 8:59 AM EST [facility] LAB RDW 14.8 11.0 - 15.0 % LAB HEMETOLOGY METHOD 06/05/2024 8:59 AM EST [facility] LAB Platelets 281 130 - 400 K/mcL LAB HEMETOLOGY METHOD 06/05/2024 8:59 AM [facility] LAB MPV 11.5(H) 7.0 - 11.0 FL LAB HEMETOLOGY METHOD 06/05/2024 8:59 AM EST [facility] LAB NRBC 0.0 <1.0 % LAB HEMETOLOGY METHOD 06/05/2024 8:59 AM [facility] LAB NRBC Absolute 0.00 <0.10 K/mcL LAB HEMETOLOGY METHOD 06/05/2024 8:59 AM [facility] LAB Blood Venous blood specimen / Unknown Venipuncture / Unknown 06/05/2024 6:55 AM EST 06/05/2024 8:42 AM EST us Jasbir Morocho MD LAB BLOOD ORDERABLES Final R esult [facility] [address] [place] [address], documented in this encounter Visit Diagnoses Diagnosis Hepatic encephalopathy (CMS/HCC V24, CMS/HCC V28) Hepatic encephalopathy Essential (primary) hypertension Unspecified essential hypertension documented in this encounter Care Teams Hvac Project Manager Relationship Specialty Start Date End Date Jasbir Morocho MD [address] [place] [address] PCP - General Family Medicine 05/22/24 documented as of this encounter
--- OUTSIDE RECORDS SUMMARY | 2025-04-13 10:15 | XMS_ITS | Encounter Summary ---
Author Organization [facility] Address [address] [place] [address] Care Team Providers Care Aircraft Instrument Engineer Name Role Phone Jasbir Morocho MD Primary Care Provider [phone] Encounter Details Date Type Department Care Team (Late st Contact Info) Description 05/22/2024 Lab Requisition [facility] - Main Lab [address] [place] [address] Jasbir Morocho MD [address] [place] [address] Essential (primary) hypertension Social History Tobacco Use [...] LAB CHEMISTRY METHOD 05/22/2024 8:52 AM EST [facility] LAB Potassium 3.9 3.5 - 5.5 mmol/L LAB CHEMISTRY METHOD 05/22/2024 8:52 AM EST [facility] LAB Chloride 99 96 - 110 mmol/L LAB CHEMISTRY METHOD 05/22/2024 8:52 AM EST [facility] LAB CO2 32 21 - 32 mmol/L LAB CHEMISTRY METHOD 05/22/2024 8:52 AM [facility] LAB Anion Gap 6 3 - 11 LAB CHEMISTRY METHOD 05/22/2024 8:52 AM [facility] LAB Glucose 111(H) 70 - 100 mg/dL LAB CHEMISTRY METHOD 05/22/2024 8:52 AM [facility] LAB BUN 20 5 - 25 mg/dL LAB CHEMISTRY METHOD 05/22/2024 8:52 AM [facility] LAB Creatinine 1.01 0.70 - 1.30 mg/dL LAB CHEMISTRY METHOD 05/22/2024 8:52 AM [facility] LAB eGFR 84 >=60 mL/min/1. 73m2 LAB CHEMISTRY METHOD 05/22/2024 8:52 AM [facility] LAB Comment:Calculation based on the Chronic Kidney Disease Epidemiology Collaboration (CKD-EPI) equation refit without adjustment for race. BUN/Creatinine Ratio 19.8 LAB CHEMISTRY METHOD 05/22/2024 8:52 AM [facility] LAB Calcium 9.5 8.5 - 10.5 mg/dL LAB CHEMISTRY METHOD 05/22/2024 8:52 AM [facility] LAB Blood Venous blood specimen / Unknown Venipuncture / Unknown 05/22/2024 5:26 AM EST 05/22/2024 7:54 AM EST Jasbir Morocho MD LAB BLOOD ORDERABLES Final R esult [facility] LAB [address] [place] [address], * (ABNORMAL) Complete blood count (05/22/2024 5:26 AM EST) WBC 12.2(H) 4.8 - 10.8 K/mcL LAB HEMETOLOGY METHOD 05/22/2024 8:39 AM [facility] LAB RBC 3.70(L) 4.50 - 5.50 M/mcL LAB HEMETOLOGY METHOD 05/22/2024 8:39 AM [facility] LAB Hemoglobin 10.8(L) 13.5 - 17.5 g/dL LAB HEMETOLOGY METHOD 05/22/2024 8:39 AM [facility] LAB Hematocrit 34.9(L) 42.0 - 54.0 % LAB HEMETOLOGY METHOD 05/22/2024 8:39 AM [facility] LAB MCV 93.8 79.0 - 98.0 FL LAB HEMETOLOGY METHOD 05/22/2024 8:39 AM [facility] LAB MCH 29.0 27.0 - 32.0 pcg LAB HEMETOLOGY METHOD 05/22/2024 8:39 AM [facility] LAB MCHC 30.9(L) 32.0 - 37.0 g/dL LAB HEMETOLOGY METHOD 05/22/2024 8:39 AM [facility] LAB RDW 15.4(H) 11.0 - 15.0 % LAB HEMETOLOGY METHOD 05/22/2024 8:39 AM [facility] LAB Platelets 241 130 - 400 K/mcL LAB HEMETOLOGY METHOD 05/22/2024 8:39 AM [facility] LAB MPV 12.1(H) 7.0 - 11.0 FL LAB HEMETOLOGY METHOD 05/22/2024 8:39 AM [facility] LAB NRBC 0.0 <1.0 % LAB HEMETOLOGY METHOD 05/22/2024 8:39 AM [facility] LAB NRBC Absolute 0.00 <0.10 K/mcL LAB HEMETOLOGY METHOD 05/22/2024 8:39 AM [facility] LAB Blood Venous blood specimen / Unknown Venipuncture / Unknown 05/22/2024 5:26 AM EST 05/22/2024 7:54 AM EST us Jasbir Morocho MD LAB BLOOD ORDERABLES Final R esult [facility] LAB [address] [place] [address], documented in this encounter Visit Diagnoses Diagnosis Essential (primary) hypertension Unspecified essential hypertension documented in this encounter Care Teams Aircraft Instrument Engineer Relationship Specialty Start Date End Date Jasbir Morocho MD [address] [place] [address] PCP - General Family Medicine 05/22/24 documented as of this encounter
--- OUTSIDE RECORDS SUMMARY | 2025-04-13 10:15 | XMS_ITS | Clinical Summary ---
Author Organization [facility] Address [address] [place] [address] [address] [place] [address] Phone Care Team Providers Care Forestry Aid Technician Name Role Phone Ortiz Deluca NP Primary Care Provider [phone] Allergies No known active allergies Medications risperiDONE [...] this topic Insurance Medicare Medicare Care Teams Forestry Aid Technician Relationship Specialty Start Date End Date Ortiz Deluca NP [address] [place], [place] [id number] PCP - General Nurse Practitioner 10/27/21
--- NOTE | 2025-04-13 10:24 | PC.NURSE ---
called to check to on patient. stating he has fallen 4-5 in the last few months, has not showered or bathed in 7 months, is reporting that he is a severe alcoholic and is able to go to the package store daily but is weak and will not let PT into the house for in home services, cassia eubanks
[2025-04-13] MEDS: Magnesium Sulfate/H2O 2 GM/50 ML PIGGYBACK IV ×2 (11:23→19:58)
[2025-04-13 13:41] LABS: Reflex Lactate? Lactic Acid Added
[2025-04-13 14:09] LABS: Resp Syncy Virus RNA Qual PCR NEGATIVE (Negative); SARS COV2 PCR INHOUSE NEGATIVE (Negative)
[2025-04-13 14:28] LABS: ~Lactic Acid-LAB USE ONLY 1.0 mmol/L (0.5-2.0)
[2025-04-13 14:57] LABS: Alanine Aminotransferase < 6 U/L (0-40); Albumin Level 3.0 g/dL (3.5-5.0); Alkaline Phosphatase 110 U/L (39-117); Anion Gap 15 (12-20); Aspartate Amino Transferase 22 U/L (5-37); Blood Urea Nitrogen 13 mg/dL (9-16); Calcium 8.1 mg/dL (8.4-10.2); Carbon Dioxide 29 mmol/L (22-29); Chloride 97 mmol/L (96-108); Creatinine Clr Calc Pharmacy 72.3; Estimated Glomerular Filt Rate 49; Potassium 3.6 mmol/L (3.3-5.1); Sodium 137 mmol/L (135-145); Total Protein 6.3 g/dL (6.5-8.0)
[2025-04-13 15:29] LABS: Magnesium 1.6 mg/dL (1.6-2.6)
--- NOTE | 2025-04-13 16:13 | PC.NURSE ---
RE: Med Rec, patient states he doesn't really know what meds he takes but my has a list . Will reach out to for med list once PT/CM status is ordered.
--- NOTE | 2025-04-13 16:34 | PC.NURSE ---
Current Plan of care is for patient to be PT/CM - pt looks to be beginning to withdraw from ETOH, provider catalina made aware of symptoms/CIWA.
--- NOTE | 2025-04-13 16:56 | PC.NURSE ---
Pt consistently desating to low 80's after Valium IV, placed on Oxymask as pt wears CPAP while sleeping, provider Catie made aware.
[2025-04-13] MEDS: PHENobarbitaL sodium 130 MG/ML IM ONCE 383 MG IM (17:52)
--- NOTE | 2025-04-13 18:33 | P.HPHOSP_ITS ---
History of Present Illness Date of Service: 04/13/25 Attending physician on admission: Sterling Oliver Chief Complaint: fall This is a 65-year-old male with a history of alcohol withdrawal who presents to the emergency department after mechanical fall. Patient states he was trying to walk up the stairs in his foot got caught on the bottom of 1 of the stairs causing him to lose his balance and fall backwards down the stairs. He was brought to the emergency department for evaluation where he was saleem - scanned. Left knee x-ray showed mild thickening of the distal patellar tendon due to tendinosis versus soft tissue injury, his left knee was wrapped in an Cole bandage. The remainder of his scans including abdomen/pelvis CT, chest CT, cervical spine CT, head CT showed no acute changes. Patient had difficulty ambulating therefore was plan to stay in the emergency room under physician observation however he began displaying symptoms of alcohol withdrawal. He received a dose of Valium and was then started on phenobarbital protocol. Because of alcohol withdrawal the decision was made to admit him to the hospital for further management. Review of Systems 2 Review of Systems: Yes all other systems are reviewed and are negative Constitutional: Constitutional: Denies chills and Denies fever(s) Cardiovascular: Cardiovascular: Denies chest pain Gastrointestinal: Gastrointestinal: Denies abdominal pain [facility] Medical History MJ (obstructive sleep apnea) CHF (congestive heart failure) Alcohol use disorder, severe, dependence CHF (congestive heart failure) Effusion, right knee Screen for STD (sexually transmitted disease) Left ankle swelling Hypomagnesemia Diarrhea Acute UTI Physical exam Nocturia Microhematuria Elevated serum creatinine Morbid obesity Increased ammonia level Weakness of both lower extremities Dermatitis, unspecified History of cardiac arrest (~05/2020) Nicotine dependence, cigarettes, uncomplicated Personal history of colonic polyps Hypoventilation associated with obesity syndrome Encephalopathy chronic CKD (chronic kidney disease) stage 3, GFR 30-59 ml/min Cirrhosis Diabetes Obesity (BMI 35.0-39.9 without comorbidity) Wernicke encephalopathy Obstructive sleep apnea (adult) (pediatric) Rib fractures CHF (congestive heart failure) Left atrial enlargement Persistent atrial fibrillation Depression Gout Arthritis Anxiety HTN (hypertension) Family History Father Lung cancer Mother No problems noted. Maternal Aunt History of heart attack Sister No problems noted. Brother Cancer of kidney Brother No problems noted. Brother No problems noted. Brother No problems noted. Brother No problems noted. Brother No problems noted. Other Substance use disorder Surgical History History of tracheostomy (~2019) History of bronchoscopy (~2019) History of colonoscopy (~2021) History of esophagogastroduodenoscopy (EGD) (~2021) History of cardioversion (~2020) S/P percutaneous endoscopic gastrostomy (PEG) tube placement (~2019) Social History Household Members: Unknown / Unable to assess Housing: Unknown / Unable to assess Do you presently have visiting nurse or other home services: No Alcohol intake: current Alcohol intake frequency: 3 or more drinks per day Alcohol type: hard liquor Comment: pt refuses fall risk interventions and protocol Patient Tobacco Use Status: Tobacco use Unknown Tobacco use type: Cigarette Cigarette Packs Per Day: 0.5 Cigarettes Per Day: 10.0 Years Smoked: 40 Smoked in Last 30 Days: Yes e-Cigarette/Vaping Use: Never Used Second Hand Smoke Exposure: No Use of substances other than those prescribed or required for medical reasons: No Advance Directives: Yes Advance Directives on File: Yes Advance Directives Date on File: 06/05/20 Do you have a plan to hurt others: No Plan Nutrition Risks: No Nutritional Risk service: Yes Current occupational status: unemployed Cognitive needs: No Hearing needs: No Vision needs: No Meds Allergies Allergy/AdvReac Type Severity Reaction Status Date / Time No Known Allergies (No Known Allergy Verified 04/13/25 09:06 Allergies*) Active Medications: Current Medications Pharmacy Consult (Consult Rx Etoh Phenob Im/Po) 1 each MISCELLANE ONCE PRN; Protocol PRN Reason: Consult order Phenobarbital (Phenobarbital 30 Mg Tablet) 60 mg PO BID JESSICA Stop: 04/15/25 21:01 Phenobarbital (Phenobarbital 30 Mg Tablet) 30 mg PO BID JESSICA Stop: 04/17/25 21:01 Phenobarbital (Phenobarbital 15 Mg Tablet) 15 mg PO DAILY JESSICA Stop: 04/19/25 09:01 Phenobarbital Sodium (Phenobarbital Sodium 130 Mg/Ml Vial Im Q3hx2) 287 mg IM Q3H JESSICA Stop: 04/14/25 00:01 Physical Exam 2 Vital Signs and Narrative: Vital Signs: Last Vital Signs Temp 98.5 F 04/13/25 12:50 Pulse 79 04/13/25 16:04 Resp 15 04/13/25 16:04 BP 111/61 04/13/25 16:04 Pulse Ox 94 04/13/25 16:04 O2 Del Method Nasal Cannula 04/13/25 16:04 O2 Flow Rate 2 04/13/25 16:04 BMI result Body Mass Index 38.0 Const: General: cooperative, comfortable, no acute distress, alert and awake Nutritional Appearance: overweight Orientation/consciousness: patient oriented x3 Resp: Effort & Inspection: normal respiratory effort, able to speak in complete sentences, no respiratory distress and no use of accessory muscles Cardio: Rate: regular rate GI: Inspection: No distended Palpation (GI): Soft to palpation and nontender Neuro: General: patient oriented x3, moves all extremities and CN's II-XI intact bilaterally Extrem: Other: left knee wrapped in cole wrap Results Labs 04/13/25 09:23 04/13/25 14:24 Labs: Laboratory Results - last 24 hr 04/13/25 04/13/25 04/13/25 09:12 09:23 11:31 MCV 88.7 MCH 28.8 MCHC 32.5 RDW 14.2 Plt Count 282 D MPV 9.9 Immature Gran % (Auto) 0.8 H Neut % (Auto) 76.7 H Lymph % (Auto) 12.5 L Sterling % (Auto) 9.1 Eos % (Auto) 0.4 Baso % (Auto) 0.5 Lymph # (Auto) 1.5 Sterling # (Auto) 1.1 Eos # (Auto) 0.1 Baso # (Auto) 0.1 Abs Immat Gran (auto) 0.10 H Absolute Neuts (auto) 9.0 H Absolute Nucleated RBC 0.000 Nucleated RBC % (auto) 0.0 PT 21.1 H D INR 1.8 H Anion Gap 18 Estim Creat Clear Calc 70.9 Estimated GFR 47 Random Glucose 137 H Lactic Acid 2.6 H* Lactic Acid F/U @ 2Hr Calcium 8.7 Magnesium 1.2 L* Total Bilirubin 0.5 AST 20 ALT < 6 Alkaline Phosphatase 130 H Total Creatine Kinase 34 L Total Protein 7.3 Albumin 3.4 L Urine Color Yellow Urine Appearance Clear Urine pH 6.0 Ur Specific Preston 1.020 Urine Protein Negative Urine Glucose (UA) Negative Urine Ketones Negative Urine Blood Negative Urine Nitrite Negative Ur Leukocyte Esterase Negative Urine Opiates Screen Not Detected Ur Buprenorphine Scrn Not Detected Ur Oxycodone Screen Not Detected Urine Methadone Screen Not Detected Urine Fentanyl Screen Not Detected Ur Barbiturates Screen Not Detected Ur Phencyclidine Scrn Not Detected Ur Amphetamines Screen Not Detected U Benzodiazepines Scrn Not Detected Urine Cocaine Screen Not Detected U Marijuana (THC) Screen Not Detected Ethyl Alcohol 62 Influenza Type A (PCR) Influenza Type B (PCR) RSV RNA Qual (PCR) SARS-CoV-2 RNA (RT-PCR) 04/13/25 04/13/25 04/13/25 12:12 14:06 14:24 MCV MCH MCHC RDW Plt Count MPV Immature Gran % (Auto) Neut % (Auto) Lymph % (Auto) Sterling % (Auto) Eos % (Auto) Baso % (Auto) Lymph # (Auto) Sterling # (Auto) Eos # (Auto) Baso # (Auto) Abs Immat Gran (auto) Absolute Neuts (auto) Absolute Nucleated RBC Nucleated RBC % (auto) PT INR Anion Gap 15 Estim Creat Clear Calc 72.3 Estimated GFR 49 Random Glucose 114 Lactic Acid Lactic Acid F/U @ 2Hr 1.0 Calcium 8.1 L D Magnesium 1.6 Total Bilirubin 0.6 AST 22 ALT < 6 Alkaline Phosphatase 110 Total Creatine Kinase Total Protein 6.3 L Albumin 3.0 L Urine Color Urine Appearance Urine pH Ur Specific Preston Urine Protein Urine Glucose (UA) Urine Ketones Urine Blood Urine Nitrite Ur Leukocyte Esterase Urine Opiates Screen Ur Buprenorphine Scrn Ur Oxycodone Screen Urine Methadone Screen Urine Fentanyl Screen Ur Barbiturates Screen Ur Phencyclidine Scrn Ur Amphetamines Screen U Benzodiazepines Scrn Urine Cocaine Screen U Marijuana (THC) Screen Ethyl Alcohol Influenza Type A (PCR) NEGATIVE Influenza Type B (PCR) NEGATIVE RSV RNA Qual (PCR) NEGATIVE SARS-CoV-2 RNA (RT-PCR) NEGATIVE Assessment and Plan (1) Alcohol abuse with withdrawal: Status: Acute Plan This is a 65 year old male with history of obesity, alcoholic cirrhosis with prior alcohol withdrawal seizures, systolic heart failure, AFib on Eliquis, MJ, CKD, diabetes mellitus presents to the emergency department after mechanical fall now and alcohol withdrawal Alcohol use disorder with alcohol withdrawal Continue phenobarbital protocol follow CIWA Thiamine, folic acid supplementation tele monitoring Acute lactic acidosis Likely due to alcohol use/metformin. Not due to sepsis Resolved with IV fluid Hypomagnesemia mag 1.2 replace IV follow level in am Left knee pain due to patellar tendinitis versus soft tissue injury from fall Continue compression with Cole bandage ice outpatient follow up with ortho prn Paroxysmal Atrial fibrillation, rate controlled Continue Eliquis, and metoprolol when med rec completed MERLIN gentle IVF repeat BMP in am HTN hold lisinopril for MERLIN, resume when indicated Resume other baseline meds when med rec is complete HFrEF hold lasix for merlin Type 2 diabetes mellitus SSI, POCs, ADA diet Hold metformin mood resume fluoxetine when med rec complete Obesity, class III BMI 38 kg/m2. Discussed importance of weight management as this may be contributing to worsening of other comorbidities Hyperlipidemia continue statin GERD resume omeprazole. falls likely due to intoxication all imaging negative for fracture PT evaluation MJ CPAP DVT prophylaxis-Eliquis Med rec pending at the time of admission Quality Stroke Does the patient have a stroke diagnosis?: No VTE Prior VTE?: No VTE Risk Level:: Medical - moderate - high VTE Device Contraindication: N/A - Device Ordered VTE Drug Contraindication: N/A - Med Ordered
[2025-04-13] MEDS: Lactated Ringers 1,000 ML 80 ML IVCONT (19:59)
[2025-04-13] MEDS: PHENobarbitaL sodium 130 MG/ML VIAL IM Q3Hx2 287 MG IM (20:11)
[2025-04-13 20:48] LABS: Glucose, Whole Blood 129 mg/dL (60-115)
--- NOTE | 2025-04-13 21:33 | PC.NURSE ---
Pt's pressure now 80's/40's-60's, dr. rose made aware, awaiting orders.
[2025-04-13] MEDS: Lactated Ringers 1,000 ML 999 ML IV (21:40)
--- NOTE | 2025-04-13 22:22 | PM.EVENT ---
Event Note Date of Service: 04/13/25 Event Note: 9:33 pm - systolic BP dropped to 80 over 40s. LR bolus ordered. Patient refused stat labs including CBC and lactic acid. Time Spent With Patient Time: Total time managing care of this patient today ____ minutes.
[2025-04-14] VITALS (10 sets, daily range): BP systolic 93–124; BP diastolic 48–65; PULSE 86–112; RESP 14–22; TEMP 36.6–36.9; O2SAT 90–99
[2025-04-14] MEDS: PHENobarbitaL sodium 130 MG/ML VIAL IM Q3Hx2 287 MG IM (00:20)
[2025-04-14 07:00] LABS: MANUAL DIFF FLAG NO
[2025-04-14 07:10] LABS: Hematocrit 36.7 % (42.0-52.0); Hemoglobin 11.6 g/dl (14.0-18.0); Imm Gran Abs Auto 0.04 X10*3/uL (0.00-0.03); Imm Gran Pct Auto 0.4 % (0.0-0.4); Lymphocytes Absolute Auto 1.8 X10*3/uL (1.2-4.9); Mean Corpuscular HGB Conc 31.6 g/dl (31.0-36.0); Mean Corpuscular Hemoglobin 28.5 pg (27.0-33.0); Mean Corpuscular Volume 90.2 fL (80.0-98.0); NRBC Abs Auto 0.000 X10*3/uL (0.0-0.012); NRBC Pct Auto 0.0 /100WBC (0.0-0.2); Platelet Count 255 X10*3/uL (160-400); Red Blood Count 4.07 X10*6/uL (4.60-5.80); White Blood Count 9.1 X10*3/uL (4.8-10.8)
[2025-04-14 07:25] LABS: Anion Gap 13 (12-20); Blood Urea Nitrogen 16 mg/dL (9-16); Calcium 8.5 mg/dL (8.4-10.2); Carbon Dioxide 31 mmol/L (22-29); Chloride 97 mmol/L (96-108); Creatinine Clr Calc Pharmacy 74.4; Estimated Glomerular Filt Rate 50; Potassium 3.7 mmol/L (3.3-5.1); Sodium 137 mmol/L (135-145)
[2025-04-14 07:27] LABS: Anion Gap 14 (12-20); Blood Urea Nitrogen 16 mg/dL (9-16); Calcium 8.6 mg/dL (8.4-10.2); Carbon Dioxide 30 mmol/L (22-29); Chloride 97 mmol/L (96-108); Creatinine Clr Calc Pharmacy 71.4; Estimated Glomerular Filt Rate 48; Magnesium 2.0 mg/dL (1.6-2.6); Potassium 3.8 mmol/L (3.3-5.1); Sodium 137 mmol/L (135-145)
[2025-04-14 09:46] LABS: Glucose, Whole Blood 149 mg/dL (60-115)
--- NOTE | 2025-04-14 10:08 | PHA.MEDREC ---
Pharmacy Consult ? Medication Reconciliation Pharmacy has completed the medication reconciliation.Med rec complete, spoke with patient's who was looking at patient's bag of medications at home. She was able to help me confirm what medications are prescribed for him, but she did state patient is non compliant and has not been taking any of his medications.
[2025-04-14 13:50] LABS: Glucose, Whole Blood 154 mg/dL (60-115)
--- NOTE | 2025-04-14 14:08 | HO.PM.IMPN ---
Subjective Subjective Date of Service: 04/14/25 Interval History: seen and examined this morning follow up for fall, etoh withdrawal no overnight events having left knee pain, has not gotten out of bed yet today Review of Systems Review of Systems: Yes all other systems are reviewed and are negative Constitutional Constitutional: Denies chills and Denies fever(s) Physical Exam Vital Signs: Vital Signs: Last Vital Signs Temp 98.5 F 04/14/25 09:12 Pulse 93 04/14/25 12:34 Resp 18 04/14/25 12:34 BP 118/65 04/14/25 12:34 Pulse Ox 93 04/14/25 12:34 O2 Del Method Room Air 04/14/25 12:34 O2 Flow Rate 2 04/13/25 20:16 BMI result Body Mass Index 38.0 Const: General: cooperative, comfortable, no acute distress, alert and awake Nutritional Appearance: overweight Orientation/consciousness: patient oriented x3 Resp: Effort & Inspection: normal respiratory effort, able to speak in complete sentences, no respiratory distress and no use of accessory muscles Cardio: Rate: regular rate GI: Inspection: No distended Palpation (GI): Soft to palpation and nontender Neuro: General: patient oriented x3, moves all extremities and CN's II-XI intact bilaterally Extrem: Other: left knee wrapped in cole wrap Objective Data Active Medications Acetaminophen (Acetaminophen 325 Mg Tablet) 650 mg PO Q6H PRN PRN Reason: Pain, Mild 1-3,fever,headache Apixaban (Apixaban 5 Mg Tablet) 5 mg PO BID [facility] Last Admin: 04/14/25 09:46 Dose: 5 mg Documented By: JOSEPHINE Calcium Carbonate (Calcium Carbonate 750 Mg Tab.Chew) 750 mg PO Q4H PRN PRN Reason: Heartburn Dextrose (Dextrose 50 % 25 Gm/50 Ml Syringe) 25 gm IVPUSH Q15M PRN; Protocol PRN Reason: per Hypoglycemia Standing Ord. Folic Acid (Folic Acid 1 Mg Tablet) 1 mg PO DAILY [facility] Last Admin: 04/14/25 09:46 Dose: 1 mg Documented By: JOSEPHINE Glucose (Glucose Gel 15 Gm Gel..Gram.) 15 gm PO Q15M PRN; Protocol PRN Reason: per Hypoglycemia Standing Ord. Insulin Human Lispro (Insulin Lispro 100 Unit/Ml 3 Ml Vial) 0 unit SUBCUT QIDACHS [facility]; Protocol Last Admin: 04/14/25 13:37 Dose: 2 unit Documented By: JOSEPHINE Magnesium Hydroxide (Milk Of Magnesia 30 Ml Oral.Susp) 30 ml PO DAILY PRN PRN Reason: Constipation Melatonin (Melatonin 3 Mg Tablet) 6 mg PO BEDTIME PRN PRN Reason: Insomnia Pharmacy Consult (Consult Rx Etoh Phenob Im/Po) 1 each MISCELLANE ONCE PRN; Protocol PRN Reason: Consult order Phenobarbital (Phenobarbital 30 Mg Tablet) 60 mg PO BID [facility] Stop: 04/15/25 21:01 Last Admin: 04/14/25 09:46 Dose: 60 mg Documented By: JOSEPHINE Phenobarbital (Phenobarbital 30 Mg Tablet) 30 mg PO BID [facility] Stop: 04/17/25 21:01 Phenobarbital (Phenobarbital 15 Mg Tablet) 15 mg PO DAILY [facility] Stop: 04/19/25 09:01 Sodium Chloride (0.9 % Sodium Chloride Flush 3 Ml Syringe) 3 ml IVFLUSH QSHIFT [facility] Last Admin: 04/14/25 09:48 Dose: Not Given Documented By: JOSEPHINE Non-Admin Reason: IV Running Thiamine HCl (Thiamine Hcl 100 Mg Tablet) 100 mg PO DAILY [facility] Last Admin: 04/14/25 09:46 Dose: 100 mg Documented By: JOSEPHINE Labs 04/14/25 06:13 04/14/25 06:13 Labs: Laboratory Results - last 24 hr 04/13/25 04/13/25 04/13/25 12:12 14:06 14:24 MCV MCH MCHC RDW Plt Count MPV Immature Gran % (Auto) Neut % (Auto) Lymph % (Auto) [place] % (Auto) Eos % (Auto) Baso % (Auto) Lymph # (Auto) [place] # (Auto) Eos # (Auto) Baso # (Auto) Abs Immat Gran (auto) Absolute Neuts (auto) Absolute Nucleated RBC Nucleated RBC % (auto) Anion Gap 15 Estim Creat Clear Calc 72.3 Estimated GFR 49 POC Glucose Random Glucose 114 Lactic Acid Lactic Acid F/U @ 2Hr 1.0 Calcium 8.1 L D Magnesium 1.6 Total Bilirubin 0.6 AST 22 ALT < 6 Alkaline Phosphatase 110 Total Protein 6.3 L Albumin 3.0 L Influenza Type A (PCR) NEGATIVE Influenza Type B (PCR) NEGATIVE RSV RNA Qual (PCR) NEGATIVE SARS-CoV-2 RNA (RT-PCR) NEGATIVE 04/13/25 04/14/25 04/14/25 20:06 06:13 06:13 MCV 90.2 MCH 28.5 MCHC 31.6 RDW 14.3 Plt Count 255 MPV 10.4 Immature Gran % (Auto) 0.4 Neut % (Auto) 68.2 Lymph % (Auto) 19.3 L [place] % (Auto) 10.1 Eos % (Auto) 1.3 Baso % (Auto) 0.7 Lymph # (Auto) 1.8 [place] # (Auto) 0.9 Eos # (Auto) 0.1 Baso # (Auto) 0.1 Abs Immat Gran (auto) 0.04 H Absolute Neuts (auto) 6.2 Absolute Nucleated RBC 0.000 Nucleated RBC % (auto) 0.0 Anion Gap 13 14 Estim Creat Clear Calc 74.4 Estimated GFR POC Glucose 129 H Random Glucose Lactic Acid Lactic Acid F/U @ 2Hr Calcium Magnesium Total Bilirubin AST ALT Alkaline Phosphatase Total Protein Albumin Influenza Type A (PCR) Influenza Type B (PCR) RSV RNA Qual (PCR) SARS-CoV-2 RNA (RT-PCR) 04/14/25 04/14/25 04/14/25 06:13 06:13 06:13 MCV MCH MCHC RDW Plt Count MPV Immature Gran % (Auto) Neut % (Auto) Lymph % (Auto) [place] % (Auto) Eos % (Auto) Baso % (Auto) Lymph # (Auto) [place] # (Auto) Eos # (Auto) Baso # (Auto) Abs Immat Gran (auto) Absolute Neuts (auto) Absolute Nucleated RBC Nucleated RBC % (auto) Anion Gap Estim Creat Clear Calc 71.4 Estimated GFR 50 48 POC Glucose Random Glucose 108 108 Lactic Acid 1.9 Lactic Acid F/U @ 2Hr Calcium 8.5 Magnesium Total Bilirubin AST ALT Alkaline Phosphatase Total Protein Albumin Influenza Type A (PCR) Influenza Type B (PCR) RSV RNA Qual (PCR) SARS-CoV-2 RNA (RT-PCR) 04/14/25 04/14/25 04/14/25 06:13 09:40 13:29 MCV MCH MCHC RDW Plt Count MPV Immature Gran % (Auto) Neut % (Auto) Lymph % (Auto) [place] % (Auto) Eos % (Auto) Baso % (Auto) Lymph # (Auto) [place] # (Auto) Eos # (Auto) Baso # (Auto) Abs Immat Gran (auto) Absolute Neuts (auto) Absolute Nucleated RBC Nucleated RBC % (auto) Anion Gap Estim Creat Clear Calc Estimated GFR POC Glucose 149 H 154 H Random Glucose Lactic Acid Lactic Acid F/U @ 2Hr Calcium 8.6 D Magnesium 2.0 Total Bilirubin AST ALT Alkaline Phosphatase Total Protein Albumin Influenza Type A (PCR) Influenza Type B (PCR) RSV RNA Qual (PCR) SARS-CoV-2 RNA (RT-PCR) Microbiology Microbiology Results: Microbiology 04/13/25 11:31 Blood Culture - Preliminary Blood - Venous No growth after 24 hours. 04/13/25 11:37 Blood Culture - Preliminary Blood - Venous No growth after 24 hours. Assessment and Plan (1) Alcohol abuse with withdrawal: Status: Acute Plan This is a 65 year old male with history of obesity, alcoholic cirrhosis with prior alcohol withdrawal seizures, systolic heart failure, AFib on Eliquis, MJ, CKD, diabetes mellitus presents to the emergency department after mechanical fall now and alcohol withdrawal Alcohol use disorder with alcohol withdrawal Continue phenobarbital protocol [facility] low Thiamine, folic acid supplementation tele monitoring Acute lactic acidosis Likely due to alcohol use/metformin. Not due to sepsis Resolved with IV fluid Hypomagnesemia mag 1.2 replace IV resume po supplementation level improved Left knee pain due to patellar tendinitis versus soft tissue injury from fall Continue compression with Cole bandage ice outpatient follow up with ortho prn Paroxysmal Atrial fibrillation, rate controlled Continue Eliquis, and metoprolol MERLIN renal function unchanged after fluid likey pt baseline HTN bp meds on hold for soft bp; reports not taking at home HFrEF hold lasix for soft bp, not taking at home Type 2 diabetes mellitus SSI, POCs, ADA diet Hold metformin mood reportly not taking fluoxetine, will hold Obesity, class III BMI 38 kg/m2. Discussed importance of weight management as this may be contributing to worsening of other comorbidities Hyperlipidemia continue statin GERD resume omeprazole. falls likely due to intoxication all imaging negative for fracture PT evaluation MJ CPAP DVT prophylaxis-EZBOBquis Quality Stroke Does the patient have a stroke diagnosis?: No VTE Prior VTE?: No VTE Risk Level:: Medical - moderate - high VTE Device Contraindication: N/A - Device Ordered VTE Drug Contraindication: N/A - Med Ordered
[2025-04-14] MEDS: 0.9 % Sodium Chloride Flush 3 ML SYRINGE IVFLUSH (16:05)
--- NOTE | 2025-04-14 16:19 | PC.NURSE ---
MOLLY Mcgee notified of pt c/o 03/06 neck and head pain- PA to order PO oxy
[2025-04-14] MEDS: oxyCODONE HCl Immed Release 5 MG TABLET PO (16:27)
[2025-04-14 18:44] LABS: Glucose, Whole Blood 109 mg/dL (60-115)
[2025-04-14 20:11] LABS: Glucose, Whole Blood 151 mg/dL (60-115)
[2025-04-15] VITALS (12 sets, daily range): BP systolic 102–145; BP diastolic 49–67; PULSE 72–98; RESP 14–22; TEMP 36.2–37.7; O2SAT 90–97; BMI 39.3
--- NOTE | 2025-04-15 02:30 | HO.NURTONUR ---
65 Y M with hx of DM and AOx3 presents s/p fall down a flight of stairs in his wheelchair. Hx chronic leg weakness and was attempting to get into his wheelchair when he fell head first. Pt arrived reporting generalized body pain. Scans negative. Admitted for alcohol abuse with withdrawal. On Phenobarbital. CIWA has remained 0. Wears cpap at bedtime. Talks in his sleep. Vitals have remained stable with one hypotensive episode. Cole wrap to the left knee. Non ambulatory. 20G L hand.
[2025-04-15] MEDS: oxyCODONE HCl Immed Release 5 MG TABLET PO ×2 (05:53→11:30)
[2025-04-15 07:17] LABS: Glucose, Whole Blood 142 mg/dL (60-115)
--- NOTE | 2025-04-15 07:19 | PC.NURSE ---
report taken from previous rn. pt is caox4 and in no distress, he is in a regular afib in lead 2 and his resps are nonlabored. he is awaiting a bed assignment. currently tolerating breakfast, he does not require insulin coverage this am.
[2025-04-15] MEDS: 0.9 % Sodium Chloride Flush 3 ML SYRINGE IVFLUSH ×2 (08:51→17:48)
[2025-04-15 11:10] LABS: Glucose, Whole Blood 153 mg/dL (60-115)
--- NOTE | 2025-04-15 11:40 | MHC.CM.PN ---
[facility] IMM, IMM 04/15/25, Pt. lives with his , PCP confirmed: Ortiz Talavera, HCP on file and confirmed: Naresh. Pt. does not have home health services. For DME, he has cane, walker and w/c. He may need assistance with transport home at [place], DCP: home with services, CM to follow for DC needs.
--- NOTE | 2025-04-15 13:37 | P.PNIM_ITS ---
Subjective Subjective Date of Service: 04/15/25 Review of Systems Follow up ETOH still with some anxiety and mild tremors Physical Exam 2 Exam: Exam: / Appearing in no acute distress head is normocephalic atraumatic eyes pupils are PERRLA sclera is anicteric mouth throat mucous membranes are intact and moist neck is supple no lymphadenopathy, no JVD noted lung sounds are clear to auscultation heart regular rate rhythm, clear S1, S2 positive bowel sounds, abdomen is soft, nontender neuro patient is alert x3, no focal deficits Vital Signs: Vital Signs: Last Vital Signs Temp 98.7 F 04/15/25 11:50 Pulse 86 04/15/25 11:50 Resp 20 04/15/25 11:50 BP 102/49 L 04/15/25 11:50 Pulse Ox 91 L 04/15/25 11:50 O2 Del Method Room Air 04/15/25 11:50 O2 Flow Rate 2 04/13/25 20:16 BMI result Body Mass Index 39.3 Objective Data Active Medications Acetaminophen (Acetaminophen 325 Mg Tablet) 650 mg PO Q6H PRN PRN Reason: Pain, Mild 1-3,fever,headache Albuterol Sulfate (Albuterol Sulfate 90 Mcg 8 Gm Inhaler) 2 puff INHALE QID PRN PRN Reason: Wheezing Apixaban (Apixaban 5 Mg Tablet) 5 mg PO BID [facility] Last Admin: 04/15/25 08:49 Dose: 5 mg Documented By: YADIEL Atorvastatin Calcium (Atorvastatin Calcium 80 Mg Tablet) 80 mg PO DAILY [facility] Last Admin: 04/15/25 08:50 Dose: 80 mg Documented By: YADIEL Calcium Carbonate (Calcium Carbonate 750 Mg Tab.Chew) 750 mg PO Q4H PRN PRN Reason: Heartburn Dextrose (Dextrose 50 % 25 Gm/50 Ml Syringe) 25 gm IVPUSH Q15M PRN; Protocol PRN Reason: per Hypoglycemia Standing Ord. Folic Acid (Folic Acid 1 Mg Tablet) 1 mg PO DAILY [facility] Last Admin: 04/15/25 08:49 Dose: 1 mg Documented By: YADIEL Glucose (Glucose Gel 15 Gm Gel..Gram.) 15 gm PO Q15M PRN; Protocol PRN Reason: per Hypoglycemia Standing Ord. Insulin Human Lispro (Insulin Lispro 100 Unit/Ml 3 Ml Vial) 0 unit SUBCUT QIDACHS [facility]; Protocol Last Admin: 04/15/25 11:29 Dose: 2 unit Documented By: YADIEL Magnesium Hydroxide (Milk Of Magnesia 30 Ml Oral.Susp) 30 ml PO DAILY PRN PRN Reason: Constipation Magnesium Oxide (Magnesium Oxide 400 Mg Tablet) 400 mg PO DAILY [facility] Last Admin: 04/15/25 08:50 Dose: 400 mg Documented By: YADIEL Melatonin (Melatonin 3 Mg Tablet) 6 mg PO BEDTIME PRN PRN Reason: Insomnia Metoprolol Tartrate (Metoprolol Tartrate 50 Mg Tablet) 50 mg PO BID [facility]; Protocol Last Admin: 04/15/25 08:50 Dose: 50 mg Documented By: YADIEL Multivitamins/Vitamin C (Multivitamin Tablet) 1 tab PO DAILY [facility] Last Admin: 04/15/25 08:49 Dose: 1 tab Documented By: YADIEL Omeprazole (Omeprazole 40 Mg Capsule.Dr) 40 mg PO DAILY@0630 [facility] Last Admin: 04/15/25 05:52 Dose: 40 mg Documented By: SANAZ Oxycodone HCl (Oxycodone Hcl Immed Release 5 Mg Tablet) 5 mg PO Q6H PRN PRN Reason: Pain, Severe (Pain Scale 7-10) Last Admin: 04/15/25 11:30 Dose: 5 mg Documented By: YADIEL Pharmacy Consult (Consult Rx Etoh Phenob Im/Po) 1 each MISCELLANE ONCE PRN; Protocol PRN Reason: Consult order Phenobarbital (Phenobarbital 30 Mg Tablet) 60 mg PO BID [facility] Stop: 04/15/25 21:01 Last Admin: 04/15/25 08:50 Dose: 60 mg Documented By: YADIEL Phenobarbital (Phenobarbital 30 Mg Tablet) 30 mg PO BID [facility] Stop: 04/17/25 21:01 Phenobarbital (Phenobarbital 15 Mg Tablet) 15 mg PO DAILY [facility] Stop: 04/19/25 09:01 Sodium Chloride (0.9 % Sodium Chloride Flush 3 Ml Syringe) 3 ml IVFLUSH QSHIFT [facility] Last Admin: 04/15/25 08:51 Dose: 3 ml Documented By: YADIEL Thiamine HCl (Thiamine Hcl 100 Mg Tablet) 100 mg PO DAILY [facility] Last Admin: 04/15/25 08:49 Dose: 100 mg Documented By: YADILE Labs 04/14/25 06:13 04/14/25 06:13 Labs: Laboratory Results - last 24 hr 04/14/25 04/14/25 04/14/25 13:29 18:40 20:03 POC Glucose 154 H 109 151 H 04/15/25 04/15/25 07:09 11:05 POC Glucose 142 H 153 H Microbiology Microbiology Results: Microbiology 04/13/25 11:31 Blood Culture - Preliminary Blood - Venous No growth after 24 hours. 04/13/25 11:37 Blood Culture - Preliminary Blood - Venous No growth after 24 hours. Assessment and Plan (1) Alcohol abuse with withdrawal: Status: Acute Plan 65 year old male with history of obesity, alcoholic cirrhosis with prior alcohol withdrawal seizures, systolic heart failure, AFib on Eliquis, MJ, CKD, diabetes mellitus presents to the emergency department after mechanical fall now and alcohol withdrawal Alcohol use disorder with alcohol withdrawal Continue phenobarbital protocol [facility] low Thiamine, folic acid supplementation tele monitoring Acute lactic acidosis Likely due to alcohol use/metformin. Not due to sepsis Resolved with IV fluid Hypomagnesemia. Resolved IV and po replacement Left knee pain due to patellar tendinitis versus soft tissue injury from fall Continue compression with Cole bandage ice outpatient follow up with ortho prn Paroxysmal Atrial fibrillation, rate controlled Continue Eliquis, and metoprolol MERLIN renal function unchanged after fluid likey pt baseline HTN bp meds on hold for soft bp; reports not taking at home HFrEF hold lasix for soft bp, not taking at home Type 2 diabetes mellitus SSI, POCs, ADA diet Hold metformin mood reportly not taking fluoxetine, will hold Obesity, class III BMI 39.3 Discussed importance of weight management as this may be contributing to worsening of other comorbidities Hyperlipidemia continue statin GERD resume omeprazole. falls likely due to intoxication all imaging negative for fracture PT evaluation MJ CPAP DVT prophylaxis-Bridestoryquascentify Quality Stroke Does the patient have a stroke diagnosis?: No VTE Prior VTE?: No VTE Risk Level:: Medical - moderate - high VTE Device Contraindication: N/A - Device Ordered VTE Drug Contraindication: N/A - Med Ordered
[2025-04-15 16:05] LABS: Glucose, Whole Blood 131 mg/dL (60-115)
[2025-04-15 16:27] LABS: Venous Blood Gas Refer to POC result
[2025-04-15 16:28] LABS: VBG HCO3 33 mmol/L (22-26); VBG O2 % Saturation 81.0 %
--- NOTE | 2025-04-15 17:12 | PC.NURSE ---
Unable to assess patient at this time, patient stated do not come near me or I will choke you with that stethoscope . Stated I do not trust you . Patient educated that I am his nurse and I am here to help.
[2025-04-15] MEDS: diazePAM 10 MG/2 ML CARTRIDGE 5 MG IVPUSH (17:47)
[2025-04-15 18:27] LABS: Hematocrit 32.6 % (42.0-52.0); Hemoglobin 10.5 g/dl (14.0-18.0); Mean Corpuscular HGB Conc 32.2 g/dl (31.0-36.0); Mean Corpuscular Hemoglobin 28.8 pg (27.0-33.0); Mean Corpuscular Volume 89.3 fL (80.0-98.0); NRBC Abs Auto 0.000 X10*3/uL (0.0-0.012); NRBC Pct Auto 0.0 /100WBC (0.0-0.2); Platelet Count 240 X10*3/uL (160-400); Red Blood Count 3.65 X10*6/uL (4.60-5.80); White Blood Count 9.9 X10*3/uL (4.8-10.8)
[2025-04-15 18:49] LABS: Ammonia 26 umol/L (13-55)
[2025-04-15 18:56] LABS: Anion Gap 11 (12-20); Blood Urea Nitrogen 17 mg/dL (9-16); Calcium 8.4 mg/dL (8.4-10.2); Carbon Dioxide 30 mmol/L (22-29); Chloride 95 mmol/L (96-108); Creatinine Clr Calc Pharmacy 88.9; Estimated Glomerular Filt Rate > 60; Potassium 4.2 mmol/L (3.3-5.1); Sodium 132 mmol/L (135-145)
[2025-04-15 19:40] LABS: Appearance Urine Clear; Glucose Urine UA Negative (Negative); PH 6.0 (5.0-9.0); Specific Gravity - Urine 1.025 (1.005-1.025); UMIC TRIGGER UACC YES
[2025-04-15 19:45] LABS: UACC Culture Trigger YES
[2025-04-15 20:09] LABS: Glucose, Whole Blood 123 mg/dL (60-115)
[2025-04-16] VITALS (7 sets, daily range): BP systolic 114–138; BP diastolic 64–83; PULSE 77–105; RESP 14–24; TEMP 36.6; O2SAT 88–98
[2025-04-16] MEDS: oxyCODONE HCl Immed Release 5 MG TABLET PO ×3 (01:14→21:09)
[2025-04-16] MEDS: 0.9 % Sodium Chloride Flush 3 ML SYRINGE IVFLUSH ×2 (01:16→09:10)
[2025-04-16] MEDS: OLANZapine 10 MG VIAL 5 MG IM (04:22)
[2025-04-16 07:14] LABS: Glucose, Whole Blood 107 mg/dL (60-115)
[2025-04-16] MEDS: Thiamine HCL 100 MG in 0.9 % Sodium Chloride 100 ML 202 MG IV (09:05)
--- NOTE | 2025-04-16 09:33 | HO.PM.IMPN ---
Subjective Subjective Date of Service: 04/16/25 Review of Systems Follow up ETOH still with some anxiety and mild tremors Physical Exam Exam: Exam: Appearing in no acute distress lung sounds are clear to auscultation heart regular rate rhythm, clear S1, S2 positive bowel sounds, abdomen is soft, nontender neuro patient is alert x3, no focal deficits Vital Signs: Vital Signs: Last Vital Signs Temp 97.8 F 04/16/25 07:15 Pulse 95 04/16/25 09:05 Resp 20 04/16/25 07:15 BP 120/64 04/16/25 09:05 Pulse Ox 95 04/16/25 07:15 O2 Del Method Nasal Cannula 04/16/25 07:15 O2 Flow Rate 2 04/16/25 07:15 BMI result Body Mass Index 39.3 Objective Data Active Medications Acetaminophen (Acetaminophen 325 Mg Tablet) 650 mg PO Q6H PRN PRN Reason: Pain, Mild 1-3,fever,headache Albuterol Sulfate (Albuterol Sulfate 90 Mcg 8 Gm Inhaler) 2 puff INHALE QID PRN PRN Reason: Wheezing Apixaban (Apixaban 5 Mg Tablet) 5 mg PO BID [facility] Last Admin: 04/16/25 09:06 Dose: 5 mg Documented By: TIMI Atorvastatin Calcium (Atorvastatin Calcium 80 Mg Tablet) 80 mg PO DAILY [facility] Last Admin: 04/16/25 09:06 Dose: 80 mg Documented By: TIMI Calcium Carbonate (Calcium Carbonate 750 Mg Tab.Chew) 750 mg PO Q4H PRN PRN Reason: Heartburn Ceftriaxone Sodium (Ceftriaxone Sodium 1 Gm Vial) 1 gm IVPUSH Q24H [facility] Last Admin: 04/15/25 17:48 Dose: 1 gm Documented By: PADMINI Dextrose (Dextrose 50 % 25 Gm/50 Ml Syringe) 25 gm IVPUSH Q15M PRN; Protocol PRN Reason: per Hypoglycemia Standing Ord. Folic Acid (Folic Acid 1 Mg Tablet) 1 mg PO DAILY [facility] Last Admin: 04/16/25 09:05 Dose: 1 mg Documented By: TIMI Glucose (Glucose Gel 15 Gm Gel..Gram.) 15 gm PO Q15M PRN; Protocol PRN Reason: per Hypoglycemia Standing Ord. Thiamine HCl 100 mg/ Sodium (Chloride) 101 mls @ 202 mls/hr IV DAILY [facility] Last Admin: 04/16/25 09:05 Dose: 202 mls/hr Documented By: TIMI Insulin Human Lispro (Insulin Lispro 100 Unit/Ml 3 Ml Vial) 0 unit SUBCUT QIDACHS [facility]; Protocol Last Admin: 04/16/25 08:23 Dose: Not Given Documented By: TIMI Non-Admin Reason: No Insulin Coverage Magnesium Hydroxide (Milk Of Magnesia 30 Ml Oral.Susp) 30 ml PO DAILY PRN PRN Reason: Constipation Magnesium Oxide (Magnesium Oxide 400 Mg Tablet) 400 mg PO DAILY [facility] Last Admin: 04/16/25 09:06 Dose: 400 mg Documented By: TIMI Melatonin (Melatonin 3 Mg Tablet) 6 mg PO BEDTIME PRN PRN Reason: Insomnia Last Admin: 04/15/25 20:27 Dose: 6 mg Documented By: JANINE Metoprolol Tartrate (Metoprolol Tartrate 50 Mg Tablet) 50 mg PO BID [facility]; Protocol Last Admin: 04/16/25 09:05 Dose: 50 mg Documented By: TIMI Multivitamins/Vitamin C (Multivitamin Tablet) 1 tab PO DAILY [facility] Last Admin: 04/16/25 09:06 Dose: 1 tab Documented By: TIMI Omeprazole (Omeprazole 40 Mg Capsule.Dr) 40 mg PO DAILY@0630 [facility] Last Admin: 04/16/25 05:59 Dose: 40 mg Documented By: JANINE Oxycodone HCl (Oxycodone Hcl Immed Release 5 Mg Tablet) 5 mg PO Q6H PRN PRN Reason: Pain, Severe (Pain Scale 7-10) Last Admin: 04/16/25 09:06 Dose: 5 mg Documented By: TIMI Pharmacy Consult (Consult Rx Etoh Phenob Im/Po) 1 each MISCELLANE ONCE PRN; Protocol PRN Reason: Consult order Phenobarbital (Phenobarbital 30 Mg Tablet) 30 mg PO BID [facility] Stop: 04/17/25 21:01 Last Admin: 04/16/25 09:06 Dose: 30 mg Documented By: TIMI Phenobarbital (Phenobarbital 15 Mg Tablet) 15 mg PO DAILY [facility] Stop: 04/19/25 09:01 Sodium Chloride (0.9 % Sodium Chloride Flush 3 Ml Syringe) 3 ml IVFLUSH QSHIFT [facility] Last Admin: 04/16/25 09:10 Dose: 3 ml Documented By: TIMI Labs 04/15/25 18:17 04/15/25 18:17 Labs: Laboratory Results - last 24 hr 04/15/25 04/15/25 04/15/25 11:05 15:57 16:21 MCV MCH MCHC RDW Plt Count MPV Absolute Nucleated RBC Nucleated RBC % (auto) Hold Purple Top SEE NOTE VBG pH VBG pCO2 VBG pO2 VBG HCO3 VBG O2 Saturation VBG Base Excess Anion Gap Estim Creat Clear Calc Estimated GFR POC Glucose 153 H 131 H Random Glucose Calcium Ammonia Urine Color Urine Appearance Urine pH Ur Specific [place] Urine Protein Urine Glucose (UA) Urine Ketones Urine Blood Urine Nitrite Ur Leukocyte Esterase Urine RBC Urine WBC Ur Squamous Epith Cells Urine Bacteria Hyaline Casts 04/15/25 04/15/25 04/15/25 16:25 18:10 18:17 MCV 89.3 MCH 28.8 MCHC 32.2 RDW 14.1 Plt Count 240 MPV 9.7 Absolute Nucleated RBC 0.000 Nucleated RBC % (auto) 0.0 Hold Purple Top VBG pH 7.44 H VBG pCO2 48 VBG pO2 54 VBG HCO3 33 H VBG O2 Saturation 81.0 VBG Base Excess 8.0 Anion Gap 11 L Estim Creat Clear Calc 88.9 Estimated GFR > 60 POC Glucose Random Glucose 131 H Calcium 8.4 Ammonia 26 Urine Color Dark Yellow Urine Appearance Clear Urine pH 6.0 Ur Specific [place] 1.025 Urine Protein 30 (1+) H Urine Glucose (UA) Negative Urine Ketones Trace Urine Blood Small (1+) H Urine Nitrite Negative Ur Leukocyte Esterase Small (1+) H Urine RBC >20 H Urine WBC 6-10 H Ur Squamous Epith Cells 0-2 Urine Bacteria None Seen Hyaline Casts 0-2 04/15/25 04/16/25 20:06 07:05 MCV MCH MCHC RDW Plt Count MPV Absolute Nucleated RBC Nucleated RBC % (auto) Hold Purple Top VBG pH VBG pCO2 VBG pO2 VBG HCO3 VBG O2 Saturation VBG Base Excess Anion Gap Estim Creat Clear Calc Estimated GFR POC Glucose 123 H 107 Random Glucose Calcium Ammonia Urine Color Urine Appearance Urine pH Ur Specific [place] Urine Protein Urine Glucose (UA) Urine Ketones Urine Blood Urine Nitrite Ur Leukocyte Esterase Urine RBC Urine WBC Ur Squamous Epith Cells Urine Bacteria Hyaline Casts Microbiology Microbiology Results: Microbiology 04/13/25 11:31 Blood Culture - Preliminary Blood - Venous No growth after 48 hours. 04/13/25 11:37 Blood Culture - Preliminary Blood - Venous No growth after 48 hours. Assessment and Plan (1) Alcohol abuse with withdrawal: Status: Acute Plan 65 year old male with history of obesity, alcoholic cirrhosis with prior alcohol withdrawal seizures, systolic heart failure, AFib on Eliquis, MJ, CKD, diabetes mellitus presents to the emergency department after mechanical fall now and alcohol withdrawal Encephalopathy, unspecified, multifactorial Likely with hypoventilation syndrome from obesity, alcohol withdrawal VBG 7.44/48/54/33 Ammonia 26 May use CPAP with naps and at bedtime, no obvious hypoxia Continue treatment for withdrawal Alcohol use disorder with alcohol withdrawal Continue phenobarbital protocol CIWA low IV Thiamine, folic acid supplementation tele monitoring Acute lactic acidosis Likely due to alcohol use/metformin. Not due to sepsis Resolved with IV fluid Hypomagnesemia. Resolved IV and po replacement Left knee pain due to patellar tendinitis versus soft tissue injury from fall Continue compression with Cole bandage, ice outpatient follow up with ortho prn Paroxysmal Atrial fibrillation, rate controlled Continue Eliquis, and metoprolol MERLIN renal function unchanged after fluid likey pt baseline HTN bp meds on hold for soft bp; reports not taking at home HFrEF hold lasix for soft bp, not taking at home Type 2 diabetes mellitus SSI, POCs, ADA diet Hold metformin mood reportly not taking fluoxetine, will hold Obesity, class III BMI 39.3 Discussed importance of weight management as this may be contributing to worsening of other comorbidities Hyperlipidemia continue statin GERD resume omeprazole. falls likely due to intoxication all imaging negative for fracture PT evaluation MJ CPAP DVT prophylaxis-Eliquis Full code Quality Stroke Does the patient have a stroke diagnosis?: No VTE Prior VTE?: No VTE Risk Level:: Medical - moderate - high VTE Device Contraindication: N/A - Device Ordered VTE Drug Contraindication: N/A - Med Ordered
[2025-04-16 11:23] LABS: Glucose, Whole Blood 171 mg/dL (60-115)
[2025-04-16 16:37] LABS: Glucose, Whole Blood 127 mg/dL (60-115)
[2025-04-16 20:44] LABS: Glucose, Whole Blood 123 mg/dL (60-115)
[2025-04-17] VITALS (8 sets, daily range): BP systolic 118–148; BP diastolic 56–72; PULSE 80–101; RESP 16–20; TEMP 36.2–37.1; O2SAT 92–97
[2025-04-17] MEDS: OLANZapine 10 MG VIAL 2.5 MG IM (01:43)
[2025-04-17] MEDS: oxyCODONE HCl Immed Release 5 MG TABLET PO ×3 (06:12→22:23)
[2025-04-17 07:10] LABS: Glucose, Whole Blood 127 mg/dL (60-115)
[2025-04-17] MEDS: Thiamine HCL 100 MG in 0.9 % Sodium Chloride 100 ML 202 MG IV (08:45)
[2025-04-17] MEDS: 0.9 % Sodium Chloride Flush 3 ML SYRINGE IVFLUSH ×3 (08:46→22:23)
--- NOTE | 2025-04-17 11:10 | P.PNIM_ITS ---
Subjective Subjective Date of Service: 04/17/25 Review of Systems Follow up ETOH still with some anxiety and mild tremors more awake today Physical Exam 2 Exam: Exam: Appearing in no acute distress lung sounds are clear to auscultation heart regular rate rhythm, clear S1, S2 positive bowel sounds, abdomen is soft, nontender neuro patient is alert x3, no focal deficits Vital Signs: Vital Signs: Last Vital Signs Temp 97.2 F 04/17/25 07:46 Pulse 90 04/17/25 07:46 Resp 18 04/17/25 07:46 BP 148/71 H 04/17/25 07:46 Pulse Ox 95 04/17/25 07:46 O2 Del Method Room Air 04/17/25 07:46 O2 Flow Rate 2 04/16/25 11:42 BMI result Body Mass Index 39.3 Objective Data Active Medications Acetaminophen (Acetaminophen 325 Mg Tablet) 650 mg PO Q6H PRN PRN Reason: Pain, Mild 1-3,fever,headache Albuterol Sulfate (Albuterol Sulfate 90 Mcg 8 Gm Inhaler) 2 puff INHALE QID PRN PRN Reason: Wheezing Apixaban (Apixaban 5 Mg Tablet) 5 mg PO BID [facility] Last Admin: 04/17/25 08:45 Dose: 5 mg Documented By: NATE Atorvastatin Calcium (Atorvastatin Calcium 80 Mg Tablet) 80 mg PO DAILY [facility] Last Admin: 04/17/25 08:45 Dose: 80 mg Documented By: NATE Calcium Carbonate (Calcium Carbonate 750 Mg Tab.Chew) 750 mg PO Q4H PRN PRN Reason: Heartburn Ceftriaxone Sodium (Ceftriaxone Sodium 1 Gm Vial) 1 gm IVPUSH Q24H [facility] Last Admin: 04/16/25 17:15 Dose: 1 gm Documented By: TIMI Dextrose (Dextrose 50 % 25 Gm/50 Ml Syringe) 25 gm IVPUSH Q15M PRN; Protocol PRN Reason: per Hypoglycemia Standing Ord. Folic Acid (Folic Acid 1 Mg Tablet) 1 mg PO DAILY [facility] Last Admin: 04/17/25 08:44 Dose: 1 mg Documented By: NATE Glucose (Glucose Gel 15 Gm Gel..Gram.) 15 gm PO Q15M PRN; Protocol PRN Reason: per Hypoglycemia Standing Ord. Thiamine HCl 100 mg/ Sodium (Chloride) 101 mls @ 202 mls/hr IV DAILY [facility] Last Infusion: 10/22/25 10:29 Dose: Infused Documented By: NATE Insulin Human Lispro (Insulin Lispro 100 Unit/Ml 3 Ml Vial) 0 unit SUBCUT QIDACHS [facility]; Protocol Last Admin: 04/17/25 08:49 Dose: Not Given Documented By: NATE Non-Admin Reason: No Insulin Coverage Magnesium Hydroxide (Milk Of Magnesia 30 Ml Oral.Susp) 30 ml PO DAILY PRN PRN Reason: Constipation Magnesium Oxide (Magnesium Oxide 400 Mg Tablet) 400 mg PO DAILY [facility] Last Admin: 04/17/25 08:45 Dose: 400 mg Documented By: NATE Melatonin (Melatonin 3 Mg Tablet) 6 mg PO BEDTIME PRN PRN Reason: Insomnia Last Admin: 04/15/25 20:27 Dose: 6 mg Documented By: JANINE Metoprolol Tartrate (Metoprolol Tartrate 50 Mg Tablet) 50 mg PO BID [facility]; Protocol Last Admin: 04/17/25 08:45 Dose: 50 mg Documented By: NATE Multivitamins/Vitamin C (Multivitamin Tablet) 1 tab PO DAILY [facility] Last Admin: 04/17/25 08:45 Dose: 1 tab Documented By: NATE Omeprazole (Omeprazole 40 Mg Capsule.Dr) 40 mg PO DAILY@0630 [facility] Last Admin: 04/17/25 06:12 Dose: 40 mg Documented By: MICHAEL Oxycodone HCl (Oxycodone Hcl Immed Release 5 Mg Tablet) 5 mg PO Q6H PRN PRN Reason: Pain, Severe (Pain Scale 7-10) Last Admin: 04/17/25 06:12 Dose: 5 mg Documented By: MICHAEL Pharmacy Consult (Consult Rx Etoh Phenob Im/Po) 1 each MISCELLANE ONCE PRN; Protocol PRN Reason: Consult order Phenobarbital (Phenobarbital 30 Mg Tablet) 30 mg PO BID [facility] Stop: 04/17/25 21:01 Last Admin: 04/17/25 08:45 Dose: 30 mg Documented By: NATE Phenobarbital (Phenobarbital 15 Mg Tablet) 15 mg PO DAILY [facility] Stop: 04/19/25 09:01 Sodium Chloride (0.9 % Sodium Chloride Flush 3 Ml Syringe) 3 ml IVFLUSH QSHIFT [facility] Last Admin: 04/17/25 08:46 Dose: 3 ml Documented By: NATE Labs 04/15/25 18:17 04/15/25 18:17 Labs: Laboratory Results - last 24 hr 04/16/25 04/16/25 04/16/25 11:11 16:31 20:39 POC Glucose 171 H 127 H 123 H 04/17/25 07:06 POC Glucose 127 H Microbiology Microbiology Results: Microbiology 04/15/25 19:46 Urine Culture - Preliminary Urine clean catch - Clean Catch Midstream Culture too young to evaluate. Assessment and Plan (1) Alcohol abuse with withdrawal: Status: Acute Plan 65 year old male with history of obesity, alcoholic cirrhosis with prior alcohol withdrawal seizures, systolic heart failure, AFib on Eliquis, MJ, CKD, diabetes mellitus presents to the emergency department after mechanical fall now and alcohol withdrawal Encephalopathy, unspecified, multifactorial Likely with hypoventilation syndrome from obesity, alcohol withdrawal VBG 7.44/48/54/33 Ammonia 26 May use CPAP with naps and at bedtime, no obvious hypoxia Continue treatment for withdrawal encourage oob to chair PT consultation Alcohol use disorder with alcohol withdrawal Continue phenobarbital protocol CIWA low IV Thiamine, folic acid supplementation Hematuria ? from st cath trauma stable HH monitor Acute lactic acidosis Likely due to alcohol use/metformin. Not due to sepsis Resolved with IV fluid Hypomagnesemia. Resolved IV and po replacement Left knee pain due to patellar tendinitis versus soft tissue injury from fall Continue compression with Cole bandage, ice outpatient follow up with ortho prn Paroxysmal Atrial fibrillation, rate controlled Continue Eliquis, and metoprolol MERLIN renal function unchanged after fluid likey pt baseline HTN bp meds on hold for soft bp; reports not taking at home HFrEF hold lasix for soft bp, not taking at home Type 2 diabetes mellitus SSI, POCs, ADA diet Hold metformin mood reportly not taking fluoxetine, will hold Obesity, class III BMI 39.3 Discussed importance of weight management as this may be contributing to worsening of other comorbidities Hyperlipidemia continue statin GERD resume omeprazole. Falls likely due to intoxication all imaging negative for fracture PT evaluation MJ CPAP DVT prophylaxis-Eliquis Full code Quality Stroke Does the patient have a stroke diagnosis?: No VTE Prior VTE?: No VTE Risk Level:: Medical - moderate - high VTE Device Contraindication: N/A - Device Ordered VTE Drug Contraindication: N/A - Med Ordered
[2025-04-17 11:27] LABS: Glucose, Whole Blood 154 mg/dL (60-115)
--- NOTE | 2025-04-17 13:35 | MHC.CM.PN ---
Pt. requires continued acute care or Alcohol withdrawl. PT eval to help determine DCP pending.
[2025-04-17 15:34] LABS: Glucose, Whole Blood 143 mg/dL (60-115)
[2025-04-17 20:09] LABS: Glucose, Whole Blood 126 mg/dL (60-115)
[2025-04-18] VITALS (8 sets, daily range): BP systolic 106–154; BP diastolic 64–88; PULSE 82–105; RESP 16–20; TEMP 36.1–36.8; O2SAT 93–99
[2025-04-18 06:59] LABS: Glucose, Whole Blood 110 mg/dL (60-115)
[2025-04-18] MEDS: Thiamine HCL 100 MG in 0.9 % Sodium Chloride 100 ML 202 MG IV (08:22)
[2025-04-18] MEDS: 0.9 % Sodium Chloride Flush 3 ML SYRINGE IVFLUSH ×3 (08:22→20:44)
[2025-04-18] MEDS: oxyCODONE HCl Immed Release 5 MG TABLET PO (08:29)
[2025-04-18 10:55] LABS: Glucose, Whole Blood 143 mg/dL (60-115)
--- NOTE | 2025-04-18 11:08 | MHC.CM.PN ---
Per rounds, pt. ready to DC to [facility], has accepting SNF. CM met with pt. to discuss DC to [facility] today. Pt. was confused, said he is at home and he just walked down the hallway from his bedroom (he was lying in bed). CM informed provider, he will be re-evaluated tomorrow. MINDY received a call from pt.'s , Olga, she said when she came to visit pt. yesterday with their grand dtr, pt. was confused, did not know where he was and did not recognize grand child. She said that she cannot have him come home in this condition, they have an adult disabled child that she takes care of. HCP is on file, naming pt.'s brother ( reports he is currently a pt. at [facility]) and his sister. ? if HCP needs to be invoked.
--- NOTE | 2025-04-18 14:20 | HO.PM.IMPN ---
Subjective Subjective Date of Service: 04/18/25 Interval History: Seen and examined this morning Follow-up for alcohol withdrawal Awake, alert, reporting left arm pain which is causing mobility to be difficult. He says he is unable to lift his left arm. His left knee is feeling better reportedly confusion waxing and waning Constitutional Constitutional: Denies chills and Denies fever(s) Cardiovascular Cardiovascular: Denies chest pain, Denies palpitations and Denies dyspnea Respiratory Respiratory: Denies cough and Denies dyspnea Endocrine Endocrine: Denies palpitations Physical Exam Vital Signs: Vital Signs: Last Vital Signs Temp 98.2 F 04/18/25 11:10 Pulse 93 04/18/25 11:10 Resp 20 04/18/25 11:10 BP 150/66 H 04/18/25 11:10 Pulse Ox 94 04/18/25 11:10 O2 Del Method Room Air 04/18/25 11:10 O2 Flow Rate 2 04/17/25 19:43 BMI result Body Mass Index 39.3 Const: General: cooperative, comfortable, alert and awake Nutritional Appearance: obese Orientation/consciousness: oriented to person and oriented to place Resp: Effort & Inspection: normal respiratory effort, able to speak in complete sentences, no respiratory distress and no use of accessory muscles Cardio: Rate: regular rate GI: Palpation (GI): Soft to palpation Neuro: Other: difficulty moving left arm; left knee wrapped in Cole bandage General: oriented to person and oriented to place Objective Data Active Medications Acetaminophen (Acetaminophen 325 Mg Tablet) 650 mg PO Q6H PRN PRN Reason: Pain, Mild 1-3,fever,headache Albuterol Sulfate (Albuterol Sulfate 90 Mcg 8 Gm Inhaler) 2 puff INHALE QID PRN PRN Reason: Wheezing Apixaban (Apixaban 5 Mg Tablet) 5 mg PO BID [facility] Last Admin: 04/18/25 08:21 Dose: 5 mg Documented By: LATONYA Atorvastatin Calcium (Atorvastatin Calcium 80 Mg Tablet) 80 mg PO DAILY [facility] Last Admin: 04/18/25 08:21 Dose: 80 mg Documented By: LATONYA Calcium Carbonate (Calcium Carbonate 750 Mg Tab.Chew) 750 mg PO Q4H PRN PRN Reason: Heartburn Ceftriaxone Sodium (Ceftriaxone Sodium 1 Gm Vial) 1 gm IVPUSH Q24H [facility] Last Admin: 04/17/25 17:58 Dose: 1 gm Documented By: NATE Dextrose (Dextrose 50 % 25 Gm/50 Ml Syringe) 25 gm IVPUSH Q15M PRN; Protocol PRN Reason: per Hypoglycemia Standing Ord. Folic Acid (Folic Acid 1 Mg Tablet) 1 mg PO DAILY [facility] Last Admin: 04/18/25 08:24 Dose: 1 mg Documented By: LATONYA Glucose (Glucose Gel 15 Gm Gel..Gram.) 15 gm PO Q15M PRN; Protocol PRN Reason: per Hypoglycemia Standing Ord. Thiamine HCl 100 mg/ Sodium (Chloride) 101 mls @ 202 mls/hr IV DAILY [facility] Last Infusion: 04/18/25 08:52 Dose: Infused Documented By: LATONYA Insulin Human Lispro (Insulin Lispro 100 Unit/Ml 3 Ml Vial) 0 unit SUBCUT QIDACHS [facility]; Protocol Last Admin: 04/18/25 11:08 Dose: Not Given Documented By: LATONYA Non-Admin Reason: No Insulin Coverage Magnesium Hydroxide (Milk Of Magnesia 30 Ml Oral.Susp) 30 ml PO DAILY PRN PRN Reason: Constipation Magnesium Oxide (Magnesium Oxide 400 Mg Tablet) 400 mg PO DAILY [facility] Last Admin: 04/18/25 08:21 Dose: 400 mg Documented By: LATONYA Melatonin (Melatonin 3 Mg Tablet) 6 mg PO BEDTIME PRN PRN Reason: Insomnia Last Admin: 04/15/25 20:27 Dose: 6 mg Documented By: JANINE Metoprolol Tartrate (Metoprolol Tartrate 50 Mg Tablet) 50 mg PO BID [facility]; Protocol Last Admin: 04/18/25 08:21 Dose: 50 mg Documented By: LATONYA Multivitamins/Vitamin C (Multivitamin Tablet) 1 tab PO DAILY [facility] Last Admin: 04/18/25 08:21 Dose: 1 tab Documented By: LATONYA Omeprazole (Omeprazole 40 Mg Capsule.) 40 mg PO DAILY@0630 [facility] Last Admin: 04/18/25 05:49 Dose: 40 mg Documented By: MICHAEL Oxycodone HCl (Oxycodone Hcl Immed Release 5 Mg Tablet) 5 mg PO Q6H PRN PRN Reason: Pain, Severe (Pain Scale 7-10) Last Admin: 04/18/25 08:29 Dose: 5 mg Documented By: LATONYA Pharmacy Consult (Consult Rx Etoh Phenob Im/Po) 1 each MISCELLANE ONCE PRN; Protocol PRN Reason: Consult order Phenobarbital (Phenobarbital 15 Mg Tablet) 15 mg PO DAILY [facility] Stop: 04/19/25 09:01 Last Admin: 04/18/25 08:24 Dose: 15 mg Documented By: LATONYA Sodium Chloride (0.9 % Sodium Chloride Flush 3 Ml Syringe) 3 ml IVFLUSH QSHIFT [facility] Last Admin: 04/18/25 08:22 Dose: 3 ml Documented By: LATONYA Labs 04/15/25 18:17 04/15/25 18:17 Labs: Laboratory Results - last 24 hr 04/17/25 04/17/25 04/18/25 15:30 20:05 06:52 POC Glucose 143 H 126 H 110 04/18/25 10:52 POC Glucose 143 H Microbiology Microbiology Results: Microbiology 04/13/25 11:31 Blood Culture - Final Blood - Venous No growth after 5 days. 04/13/25 11:37 Blood Culture - Final Blood - Venous No growth after 5 days. 04/15/25 19:46 Urine Culture - Preliminary Urine clean catch - Clean Catch Midstream Staphylococcus species Assessment and Plan (1) Alcohol abuse with withdrawal: Status: Acute Plan This is a 65 year old male with history of obesity, alcoholic cirrhosis with prior alcohol withdrawal seizures, systolic heart failure, AFib on Eliquis, MJ, CKD, diabetes mellitus presents to the emergency department after mechanical fall now now with alcohol withdrawal Encephalopathy, unspecified, multifactorial Likely with hypoventilation syndrome from obesity, alcohol withdrawal VBG 7.44/48/54/33 Ammonia 26 04/15, does have h/o hepatic encephalopathy and was previously on lactulose, will recheck ammonia level May use CPAP with naps and at bedtime, no obvious hypoxia Continue treatment for withdrawal encourage oob to chair PT consultation -> rec STR will stop oxycodone Left arm pain likely due to mechanical fall shoulder xray negative will check xray elbow, wrist IV tylenol for pain control Alcohol use disorder with alcohol withdrawal Continue phenobarbital protocol CIWA low IV Thiamine, folic acid supplementation Hematuria ? from st cath trauma stable HH monitor Acute lactic acidosis Likely due to alcohol use/metformin. Not due to sepsis Resolved with IV fluid Hypomagnesemia. Resolved IV and po replacement Left knee pain due to patellar tendinitis versus soft tissue injury from fall Continue compression with Cole bandage, ice outpatient follow up with ortho prn Paroxysmal Atrial fibrillation, rate controlled Continue Eliquis, and metoprolol MERLIN renal function unchanged after fluid likey pt baseline HTN bp meds on hold for soft bp; reports not taking at home HFrEF hold lasix for soft bp, not taking at home Type 2 diabetes mellitus SSI, POCs, ADA diet Hold metformin mood reportly not taking fluoxetine, will hold Obesity, class III BMI 39.3 Discussed importance of weight management as this may be contributing to worsening of other comorbidities Hyperlipidemia continue statin GERD resume omeprazole. Falls likely due to intoxication all imaging negative for fracture PT evaluation -> rec STR MJ CPAP DVT prophylaxis-Eliquis Full code Quality Stroke Does the patient have a stroke diagnosis?: No VTE Prior VTE?: No VTE Risk Level:: Medical - moderate - high VTE Device Contraindication: N/A - Device Ordered VTE Drug Contraindication: N/A - Med Ordered
[2025-04-18 15:11] LABS: Glucose, Whole Blood 152 mg/dL (60-115)
[2025-04-18 16:43] LABS: Hematocrit 34.2 % (42.0-52.0); Hemoglobin 11.0 g/dl (14.0-18.0); Mean Corpuscular HGB Conc 32.2 g/dl (31.0-36.0); Mean Corpuscular Hemoglobin 28.9 pg (27.0-33.0); Mean Corpuscular Volume 90.0 fL (80.0-98.0); NRBC Abs Auto 0.000 X10*3/uL (0.0-0.012); NRBC Pct Auto 0.0 /100WBC (0.0-0.2); Platelet Count 255 X10*3/uL (160-400); Red Blood Count 3.80 X10*6/uL (4.60-5.80); White Blood Count 11.4 X10*3/uL (4.8-10.8)
[2025-04-18 16:51] LABS: Ammonia 19 umol/L (13-55)
[2025-04-18 16:59] LABS: Anion Gap 13 (12-20); Blood Urea Nitrogen 16 mg/dL (9-16); Calcium 9.3 mg/dL (8.4-10.2); Carbon Dioxide 29 mmol/L (22-29); Chloride 96 mmol/L (96-108); Creatinine Clr Calc Pharmacy 97.0; Estimated Glomerular Filt Rate > 60; Potassium 4.4 mmol/L (3.3-5.1); Sodium 134 mmol/L (135-145)
[2025-04-18 20:50] LABS: Glucose, Whole Blood 134 mg/dL (60-115)
[2025-04-19 00:14] VITALS: PULSE 76; RESP 18; O2SAT 95
[2025-04-19 03:20] VITALS: BP 123/76; PULSE 96; RESP 16; TEMP 36.1; O2SAT 95
[2025-04-19 07:02] LABS: Glucose, Whole Blood 98 mg/dL (60-115)
[2025-04-19 07:34] VITALS: BP 107/62; PULSE 82; RESP 17; TEMP 36.6; O2SAT 96
[2025-04-19] MEDS: Thiamine HCL 100 MG in 0.9 % Sodium Chloride 100 ML 202 MG IV (08:37)
[2025-04-19] MEDS: 0.9 % Sodium Chloride Flush 3 ML SYRINGE IVFLUSH (08:39)
--- NOTE | 2025-04-19 10:43 | PM.DS ---
DS: Providers Provider Date of Service: 04/19/25 Date of admission: 04/13/25 17:52 Date of discharge: 04/19/25 Primary care physician: BABATUNDE Mckoy Consults: 04/19/25 07:54 Consult to Orthopedics Routine Consulting [place] [facility] [place] [facility] Reason for consultation: left arm pain, shoulder/elbow; fall Has provider been notified: No Attending physician on discharge: Navarro Del Cid Discharging clinician: Jacquelin Mcgee DS: Diagnosis Discharge Diagnosis (1) Alcohol abuse with withdrawal: Status: Acute DS: Summary Hospital Course Hospital Course: From H&P on the day of admission This is a 65-year-old male with a history of alcohol withdrawal who presents to the emergency department after mechanical fall. Patient states he was trying to walk up the stairs in his foot got caught on the bottom of 1 of the stairs causing him to lose his balance and fall backwards down the stairs. He was brought to the emergency department for evaluation where he was saleem - scanned. Left knee x-ray showed mild thickening of the distal patellar tendon due to tendinosis versus soft tissue injury, his left knee was wrapped in an Cole bandage. The remainder of his scans including abdomen/pelvis CT, chest CT, cervical spine CT, head CT showed no acute changes. Patient had difficulty ambulating therefore was plan to stay in the emergency room under physician observation however he began displaying symptoms of alcohol withdrawal. He received a dose of Valium and was then started on phenobarbital protocol. Because of alcohol withdrawal the decision was made to admit him to the hospital for further management. Patient was admitted due to alcohol withdrawal and left knee pain due to mechanical fall, hospital course complicated by toxic encephalopathy due to oxycodone use. Hospital course by problem: acute toxic Encephalopathy likely due to narcotics. No co2 retention, ammonia level wnl, renal function stable. oxycodone discontinued and encephalopathy has resolved Left arm pain due to mechanical fall shoulder xray negative, wrist and elbow unremarkable seen by ortho, no acute intervention required Left knee pain due to patellar tendinitis versus soft tissue injury from fall; left foot xray negative for fracture Continue compression with Cole bandage, ice outpatient follow up with ortho no narcotics for pain control Alcohol use disorder with alcohol withdrawal Completed phenobarbital protocol [place] Counseled on importance of alcohol cessation, patient states that he is drinking less than previously UTI Urinalysis equivocal but urine culture growing staph epidermidis, had initially been started on IV ceftriaxone, sensitivities resistant to all but nitrofurantoin and Bactrim. Would recommend 7 days nitrofurantoin Repeat outpatient urinalysis to ensure resolution of microscopic hematuria Acute lactic acidosis Likely due to alcohol use/metformin. Not due to sepsis Resolved with IV fluid Hypomagnesemia. Resolved continue po replacement Paroxysmal Atrial fibrillation, rate controlled Continue Eliquis, and metoprolol MERLIN resolved HTN bp meds on hold for soft bp; reports not taking at home. metoprolol resumes, will hold all other meds on discharge HFrEF hold lasix for soft bp, not taking at home. resume as bp allows Type 2 diabetes mellitus SSI, POCs, ADA diet resume metformin upon discharge mood reportedly not taking fluoxetine, will hold Obesity, class III BMI 39.3 Discussed importance of weight management as this may be contributing to worsening of other comorbidities Patient was evaluated by Physical therapy who recommended short-term rehab. Patient is now medically acceptable for discharge. Anticipate less than 30 day stay SNF Time Attestation Discharge Coordination Time (in mins): 36 Quality: Safe Use of Opioids Does Pt have an Active Cancer Diagnosis on the Problem List?: No Quality: Stroke Does the patient have a stroke diagnosis?: No Physical Exam Vital Signs: Vital Signs: Last Vital Signs Temp 97.8 F 04/19/25 07:34 Pulse 82 04/19/25 07:34 Resp 17 04/19/25 07:34 BP 107/62 04/19/25 07:34 Pulse Ox 96 04/19/25 07:34 O2 Del Method Room Air 04/19/25 07:34 O2 Flow Rate 2 04/17/25 19:43 BMI result Body Mass Index 39.3 Const: General: cooperative, comfortable, no acute distress, alert and awake Nutritional Appearance: obese and overweight Orientation/consciousness: oriented to person, oriented to place and patient oriented x3 Resp: Effort & Inspection: normal respiratory effort, able to speak in complete sentences, no respiratory distress and no use of accessory muscles Cardio: Rate: regular rate GI: Inspection: No distended Palpation (GI): Soft to palpation and nontender Skin: Other: some bruising noted left elbow Neuro: Other: difficulty moving left arm; left knee wrapped in Cole bandage General: oriented to person, oriented to place, patient oriented x3, moves all extremities and CN's II-XI intact bilaterally Extrem: Other: left knee wrapped in cole wrap; left foot swelling, no bruising DS: Data Data Completed and Pending Completed studies during hospitalization [Text1]: Procedures Assistance with Respiratory Ventilation, Less than 24 Consecutive Hours, Continuous Positive Airway Pressure (05/10/24) Bypass Trachea to Cutaneous with Tracheostomy Device, Percutaneous Approach (05/30/20) Change Tracheostomy Device in Trachea, External Approach (05/30/20) Detoxification Services for Substance Abuse Treatment (05/10/24) Drainage of Left Lower Lung Lobe, Via Natural or Artificial Opening Endoscopic, Diagnostic (05/30/20) Insertion of Endotracheal Airway into Trachea, Via Natural or Artificial Opening (05/30/20) Insertion of Feeding Device into Stomach, Percutaneous Approach (05/30/20) Insertion of Infusion Device into Right Atrium, Percutaneous Approach (05/30/20) Insertion of Infusion Device into Superior Vena Cava, Percutaneous Approach (05/30/20) Introduction of Vasopressor into Peripheral Vein, Percutaneous Approach (05/10/24) Performance of Cardiac Output, Single, Manual (05/30/20) Performance of Urinary Filtration, Intermittent, Less than 6 Hours Per Day (05/30/20) Respiratory Ventilation, Greater than 96 Consecutive Hours (05/30/20) Ultrasonography of Superior Vena Cava, Guidance (05/30/20) Labs on day of discharge: Laboratory Results - last 24 hr 04/18/25 04/18/25 04/18/25 10:52 15:07 16:36 WBC 11.4 H RBC 3.80 L Hgb 11.0 L Hct 34.2 L MCV 90.0 MCH 28.9 MCHC 32.2 RDW 14.0 Plt Count 255 MPV 10.6 Absolute Nucleated RBC 0.000 Nucleated RBC % (auto) 0.0 Sodium 134 L Potassium 4.4 Chloride 96 Carbon Dioxide 29 Anion Gap 13 BUN 16 Creatinine 1.11 Estim Creat Clear Calc 97.0 Estimated GFR > 60 POC Glucose 143 H 152 H Random Glucose 137 H Calcium 9.3 D Ammonia 19 04/18/25 04/19/25 20:46 06:55 WBC RBC Hgb Hct MCV MCH MCHC RDW Plt Count MPV Absolute Nucleated RBC Nucleated RBC % (auto) Sodium Potassium Chloride Carbon Dioxide Anion Gap BUN Creatinine Estim Creat Clear Calc Estimated GFR POC Glucose 134 H 98 Random Glucose Calcium Ammonia Imaging Chest x-ray: Radiologist's impression: ITS Impressions Shoulder X-Ray 04/17/25 16:30 IMPRESSION: Unremarkable left shoulder Electronically signed by: Giovanni Ramos MD 04/17/2025 04:52 PM EDT RP Wrist X-Ray 04/18/25 15:23 IMPRESSION: No acute abnormality. Chronic mild widening of scapholunate interval suggesting scapholunate ligament injury. Multifocal erosive changes with possible active erosions at the radial base of the second proximal phalanx. The appearance favors inflammatory arthropathy such as rheumatoid arthritis. Moderate osteoarthritis is noted in the IP joint of thumb. Electronically signed by: Giovanni Ramos MD 04/18/2025 04:10 PM EDT RP Elbow X-Ray 04/18/25 15:40 IMPRESSION: This is an AP view across the radial head neck junction is probably related to artifact. Correlate for focal radial head tenderness. Increasing degenerative changes involving the elbow joint. Interval development of soft tissue calcifications dorsal to the elbow could be related to connective tissue disease, thermal injury, chronic kidney disease or other metabolic abnormality, and is a nonspecific finding. Electronically signed by: Giovanni Ramos MD 04/18/2025 04:05 PM EDT RP Discharge Plan Discharge Anticipated Discharge Date/Time: 04/19/25 11:04 Patient Disposition: Xfer SNF Discharge Diagnosis: mechanical fall Alcohol use disorder with alcohol withdrawal Left arm pain, left knee pain Low magnesium levels UTI Referrals: [facility] [Outside] - 1 Week Ortiz Deluca FNP-BC [Primary Care Provider, Internal Medicine] - 1 Week Discharge Medications: New nitrofurantoin macrocrystal 100 mg capsule 100 mg PO BID 7 Days Qty: 14 0RF Rx Instructions: must administer with a meal/food Continued acetaminophen [Tylenol Arthritis Pain] 650 mg tablet extended release 650 mg PO Q12H PRN (Reason: pain) 30 Days Qty: 60 0RF metoprolol tartrate 50 mg tablet 50 mg PO BID Qty: 180 1RF Eliquis 5 mg tablet 5 mg PO BID Qty: 180 1RF rosuvastatin 20 mg tablet 20 mg PO DAILY Qty: 90 1RF Rx Instructions: increased dose folic acid 1 mg tablet 1 mg PO DAILY Qty: 90 1RF metformin 850 mg tablet 850 mg PO DAILY Qty: 90 1RF albuterol sulfate 90 mcg/actuation HFA aerosol inhaler 2 puff inhalation QID PRN (Reason: Wheezing) Qty: 8.5 3RF omeprazole 20 mg capsule,delayed release(DR/EC) 40 mg PO DAILY@0630 Qty: 180 1RF magnesium 250 mg tablet 250 mg PO DAILY Qty: 30 0RF thiamine HCl (vitamin B1) 100 mg tablet 100 mg PO DAILY Qty: 30 3RF multivitamin [Daily-Carlito] Tablet 1 tab PO DAILY Qty: 90 0RF Held amlodipine 5 mg tablet 5 mg PO DAILY Qty: 90 1RF Hold Instructions: BP soft, not getting during hospital stay furosemide 20 mg tablet 30 mg PO DAILY Qty: 135 1RF Hold Instructions: BP soft, Patient not getting during hospital stay. Resume as BP allows lisinopril 2.5 mg tablet 2.5 mg PO DAILY Qty: 90 1RF Hold Instructions: bp soft, not getting during hospital stay fluoxetine 40 mg capsule 40 mg PO DAILY Qty: 90 0RF Hold Instructions: Patient not taking at home, not getting during hospital stay Discontinued cyclobenzaprine 10 mg tablet 10 mg PO TID PRN (Reason: muscle spasm) Qty: 14 0RF No Action (DME) blood-glucose meter [FreeStyle Lite Meter] Kit See Rx Instructions .ROUTE .MEDSUPPLY Qty: 1 0RF Rx Instructions: check sugar twice a day (DME) lancets [FreeStyle Lancets] 28 gauge misc See Rx Instructions .ROUTE .MEDSUPPLY Qty: 100 2RF Rx Instructions: check sugar twice a day (DME) FreeStyle David 2 [place] Misc See Rx Instructions .Route Qty: 1 0RF Rx Instructions: tid testing (DME) FreeStyle David 2 Sensor Kit See Rx Instructions .Route Qty: 1 3RF Rx Instructions: tid testing Discharge Orders: Discharge Order (Routine); Ordered 04/19/25 Ordered By: Jacquelin Mcgee Activity on Discharge: As tolerated Stand Alone Forms: Patient Portal Discharge page Print Language: Spanish Care Plan Goals: See below Health Concerns: Mechanical fall resulting in left arm left knee pain Hypomagnesemia Alcohol use disorder with alcohol withdrawal Toxic encephalopathy due to opiates UTI Plan of Treatment: Alcohol cessation advised Blood pressure medication other than metoprolol has been on hold due to soft blood pressure and outpatient medication noncompliance, resume as BP allows All images negative for fracture, continue compression, ice and supportive care for left arm and left knee. Outpatient follow-up with orthopedics if pain persists UTI - 7 days of nitrofurantoin Assessment: See discharge summary
--- NOTE | 2025-04-19 11:05 | PM.EVENT ---
Event Note Date of Service: 04/19/25 Event Note: X-rays reviewed of the left elbow: IMPRESSION: This is an AP view across the radial head neck junction is probably related to artifact. Correlate for focal radial head tenderness. Increasing degenerative changes involving the elbow joint. Interval development of soft tissue calcifications dorsal to the elbow could be related to connective tissue disease, thermal injury, chronic kidney disease or other metabolic abnormality, and is a nonspecific finding. Recommendation: Sling as needed for pain, ok to perform gentle ROM out of the sling. F/u with orthopedics out patient Time Spent With Patient Time: Total time managing care of this patient today ____ minutes.
[2025-04-19 11:43] LABS: Glucose, Whole Blood 115 mg/dL (60-115)
[2025-04-19 11:53] VITALS: BP 148/75; PULSE 74; RESP 18; TEMP 36.7; O2SAT 95
--- NOTE | 2025-04-19 12:26 | MHC.CM.PN ---
SECOND IMM GIVEN 04/19. PATIENT IS MEDICALLY CLEARED FOR DISCHARGE TO [facility] TODAY, HE WILL TRANSPORT THERE VIA BLS/[facility]. PATIENT IS AWARE AND IN AGREEMENT WITH DISCHARGE PLAN.
== END 2025-04-19 14:40 | disposition skilled nursing facility (03) | DRG 897 ==
LOC: HO.ED 17:40 → HO.EDOVER 17:55 → HO.IMC 04-15 07:25
PROVIDERS: Internal Medicine; Nurse Practitioner Acute Care; Physician Assistant; Admitting Provider Physician Assistant Medical; Emergency Provider Emergency Medicine; PCP Nurse Practitioner Family; Visit Provider Physician Assistant Medical
DX: F10.239 Alcohol dependence with withdrawal, unspecified (principal); E87.21 Acute metabolic acidosis; N17.9 Acute kidney failure, unspecified; I50.22 Chronic systolic (congestive) heart failure; E83.42 Hypomagnesemia; I48.0 Paroxysmal atrial fibrillation; I11.0 Hypertensive heart disease with heart failure; Z68.39 Body mass index [BMI] 39.0-39.9, adult; Z71.3 Dietary counseling and surveillance; E11.9 Type 2 diabetes mellitus without complications; R31.9 Hematuria, unspecified; K70.30 Alcoholic cirrhosis of liver without ascites; M76.52 Patellar tendinitis, left knee; G47.33 Obstructive sleep apnea (adult) (pediatric); E66.813 Obesity, class 3; W19.XXXA Unspecified fall, initial encounter; F17.210 Nicotine dependence, cigarettes, uncomplicated; Z71.6 Tobacco abuse counseling; Z20.822 Contact with and (suspected) exposure to COVID-19; Z79.01 Long term (current) use of anticoagulants; Z79.84 Long term (current) use of oral hypoglycemic drugs; Z79.899 Other long term (current) drug therapy
CPT/HCPCS: 36415; 70450; 71260; 72125; 73030; 73070; 73100; 73560; 73610; 73620; 74177; 80048; 80053; 80307; 81001; 81003; 82140; 82550; 82803; 82947; 83605; 83735; 85025; 85027; 85610; 87040; 87086; 87088; 87186; 87637; 93005; 94660; 97162; 99285; J0131; J0696; J2270; J2359; J2560; J3360; J3411; J3475; J7120; Q9967

== ENCOUNTER → 2025-04-13 08:22 | Outpatient (BNV) | payer MEDICARE, OTHER, MEDICAID, SELFPAY | PROVIDERS: Visit Provider Specialist | DX: S39.91XA Unspecified injury of abdomen, initial encounter (principal); S29.9XXA Unspecified injury of thorax, initial encounter; M54.2 Cervicalgia; W19.XXXA Unspecified fall, initial encounter | CPT/HCPCS: 71260; 72125; 74177 ==

== ENCOUNTER → 2025-04-13 08:27 | Outpatient (BNV) | payer MEDICARE, OTHER, MEDICAID, SELFPAY | PROVIDERS: Admitting Provider Physician Assistant Medical; Emergency Provider Emergency Medicine; PCP Nurse Practitioner Family; Visit Provider Internal Medicine Cardiovascular Disease | DX: I48.91 Unspecified atrial fibrillation (principal) | CPT/HCPCS: 93010 ==

== ENCOUNTER 2025-04-13 17:52 | Outpatient (BNV) | payer MEDICARE, OTHER, MEDICAID, SELFPAY | END 2025-04-18 15:40 | PROVIDERS: Admitting Provider Physician Assistant Medical; Emergency Provider Emergency Medicine; PCP Nurse Practitioner Family; Visit Provider Radiology Diagnostic Radiology | DX: M25.522 Pain in left elbow (principal); M19.022 Primary osteoarthritis, left elbow; M25.532 Pain in left wrist; M19.042 Primary osteoarthritis, left hand; W19.XXXA Unspecified fall, initial encounter | CPT/HCPCS: 73070; 73100 ==

== ENCOUNTER 2025-04-13 17:52 | Outpatient (BNV) | payer MEDICARE, OTHER, MEDICAID, SELFPAY | END 2025-04-19 11:25 | PROVIDERS: Admitting Provider Physician Assistant Medical; Emergency Provider Emergency Medicine; PCP Nurse Practitioner Family; Visit Provider Radiology Diagnostic Radiology | DX: M19.072 Primary osteoarthritis, left ankle and foot (principal) | CPT/HCPCS: 73620 ==

== ENCOUNTER 2025-04-13 17:52 | Outpatient (BNV) | payer MEDICARE, OTHER, MEDICAID, SELFPAY | END 2025-04-17 16:30 | PROVIDERS: Admitting Provider Physician Assistant Medical; Emergency Provider Emergency Medicine; PCP Nurse Practitioner Family; Visit Provider Radiology Diagnostic Radiology | DX: M25.512 Pain in left shoulder (principal) | CPT/HCPCS: 73030 ==

== ENCOUNTER → 2025-04-13 17:52 | Outpatient (BNV) | payer MEDICARE, OTHER, MEDICAID, SELFPAY | PROVIDERS: Admitting Provider Physician Assistant Medical; Emergency Provider Emergency Medicine; PCP Nurse Practitioner Family; Visit Provider Internal Medicine | DX: F10.139 Alcohol abuse with withdrawal, unspecified (principal) | CPT/HCPCS: 99223; 99232; 99499 ==

== ENCOUNTER 2025-04-19 20:59 | Inpatient (IN) | payer MEDICARE, OTHER, MEDICAID, SELFPAY ==
--- NOTE | 2025-04-19 | ECG_ITS ---
Test Reason : HYPOXIA Blood Pressure : */* mmHG Vent. Rate : 98 BPM Atrial Rate : * BPM P-R Int : * ms QRS Dur : 88 ms QT Int : 362 ms P-R-T Axes : * 81 58 degrees QTcB Int : 462 ms Atrial fibrillation Abnormal ECG When compared with ECG of 13-Apr-2025 09:00, Nonspecific T wave abnormality no longer evident in Inferior leads Referred By: Sandy Connell Electronically Signed By: OLGA GRANDA MD
--- NOTE | ~2025-04-19 | CT_ITS ---
CLINICAL HISTORY: hypoxia, tachycardia CT angiography chest with contrast. 3D Postprocessing. Comparison: CT/SR - CT CHEST W IV CON - 04/13/25 08:39 EDT Findings: There is no pulmonary embolism. There is mild biatrial enlargement. There is no pericardial effusion. There is coronary artery calcification. Thoracic aorta is within normal limits in diameter. There are no enlarged lymph nodes. There is mild bilateral dependent atelectasis. There is unchanged mild pleural thickening/scarring in the left lower lobe posteriorly. There is paraseptal emphysema in the upper lobes. Lungs appear otherwise clear. Trachea and central bronchi are widely patent. There is no acute fracture or suspicious lytic or sclerotic lesion. Limited images of the upper abdomen demonstrate no acute findings. IMPRESSION: No pulmonary embolism. This document has been electronically signed by: Wilner Muñoz MD on 04/20/2025 01:41:24
--- NOTE | ~2025-04-19 | US_ITS ---
CLINICAL HISTORY: elevated LFTs, sepsis unknown etiology --- Additional Notes or Special Instructions: to be done in AM US abdomen limited with color Doppler Comparison: CT/REG/SR - CT ABDOMEN PELVIS W IV CON - 04/13/25 08:39 EDT Findings: Visualized pancreas is normal. Tail obscured by bowel gas. Liver is enlarged with coarse hepatic echotexture. Right lobe length 20.0 cm. No focal hepatic masses. Common duct 3.0 mm diameter. Gallbladder is physiologically distended. No gallstones, sludge or wall abnormalities. No gallbladder wall thickening. No pericholecystic fluid. No sonographic Garza sign. Main portal vein antegrade. Right kidney measures, 11.9 cm in length. Normal cortical width and echotexture. No hydronephrosis calculus or mass. Impression: 1. Hepatomegaly with coarse hepatic echotexture reflecting hepatic steatosis or diffuse hepatocellular disease. 2. Normal gallbladder. This document has been electronically signed by: Dean Stapleton MD on 04/20/2025 11:08:30
--- NOTE | ~2025-04-19 | XR_ITS ---
CLINICAL HISTORY: fever 1 view chest x-ray Comparison: 03/30/2025 Findings: The lungs are clear. Enlarged cardiac silhouette. No acute fracture. IMPRESSION: 1. No acute findings. This document has been electronically signed by: Pratik Pfeiffer MD on 04/19/2025 22:06:10
--- NOTE | ~2025-04-19 | US_ITS ---
CLINICAL HISTORY: BLE edema L>R Bilateral lower extremity duplex venous Doppler Comparison: None Technique: Grayscale/Color/Duplex Doppler sonographic evaluation of the deep venous system within both lower extremities. Findings: Right lower extremity Common femoral vein: Patent CFV/GSV junction: Patent Femoral vein: Patent Popliteal vein: Patent Infrapopliteal veins: Patent where seen Soft tissue: No focal abnormality Left lower extremity Common femoral vein: Patent CFV/GSV junction: Patent Femoral vein: Patent Popliteal vein: Patent Infrapopliteal veins: Patent where seen Soft tissues: No focal abnormality Impression: 1. Negative for bilateral lower extremity DVT 2. No Jones's cyst This document has been electronically signed by: Dean Stapleton MD on 04/20/2025 11:23:49
[2025-04-19 21:05] VITALS: BP 110/66; PULSE 92; O2SAT 95
[2025-04-19 21:06] VITALS: PULSE 111; RESP 21; TEMP 39.3; O2SAT 93; BMI 39.7
[2025-04-19 21:24] VITALS: BP 108/62; PULSE 113; RESP 18; TEMP 39.2; O2SAT 89
[2025-04-19] MEDS: vancomycin/NS 2,000 MG/500 ML PLAST..BAG 250 MG IV (21:26)
[2025-04-19 21:34] LABS: MANUAL DIFF FLAG NO
[2025-04-19 21:41] LABS: INTERNATIONAL NORM RATIO 1.6 (0.9-1.1); Prothrombin Time 18.5 SEC (10.9-12.4)
[2025-04-19 21:52] LABS: Hematocrit 33.8 % (42.0-52.0); Hemoglobin 11.1 g/dl (14.0-18.0); Imm Gran Abs Auto 0.05 X10*3/uL (0.00-0.03); Imm Gran Pct Auto 0.5 % (0.0-0.4); Lymphocytes Absolute Auto 1.8 X10*3/uL (1.2-4.9); Mean Corpuscular HGB Conc 32.8 g/dl (31.0-36.0); Mean Corpuscular Hemoglobin 28.9 pg (27.0-33.0); Mean Corpuscular Volume 88.0 fL (80.0-98.0); NRBC Abs Auto 0.000 X10*3/uL (0.0-0.012); NRBC Pct Auto 0.0 /100WBC (0.0-0.2); Platelet Count 280 X10*3/uL (160-400); Red Blood Count 3.84 X10*6/uL (4.60-5.80); White Blood Count 11.1 X10*3/uL (4.8-10.8)
--- OUTSIDE RECORDS SUMMARY | 2025-04-19 21:53 | XMS_ITS | Encounter Summary ---
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; Unspecified cirrhosis of [...] disease, unspecified Unspecified atrial fibrillation (CMS/HCC) [facility] [place] (current) drug therapy HEMOGLOBIN A1C Routine 05/21/2024 6:42 AM EST Unspecified cirrhosis of liver (CMS/HCC) Unspecified dementia, unspecified severity, without behavioral disturbance, psychotic disturbance, mood disturbance, and anxiety (CMS/HCC) Chronic kidney disease, unspecified Unspecified atrial fibrillation (CMS/HCC) 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 BASIC METABOLIC PANEL Routine 05/21/2024 6:42 AM EST Unspecified cirrhosis of liver (CMS/HCC) Unspecified dementia, unspecified severity, without behavioral disturbance, psychotic disturbance, mood disturbance, and anxiety (CMS/HCC) Chronic kidney disease, unspecified Unspecified atrial fibrillation (CMS/HCC) 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 123 mg/dL LAB CHEMISTRY METHOD 05/21/2024 12:30 PM EST [facility] Blood Venous blood specimen / Unknown Venipuncture / Unknown 05/21/2024 6:42 AM EST 05/21/2024 9:50 AM EST us Jasbir Morocho MD LAB BLOOD ORDERABLES Final R esult [facility] [address] [place] [address], * (ABNORMAL) Basic metabolic panel (05/21/2024 6:42 AM EST) Pathologist [facility] Sodium 138 133 - 145 mmol/L LAB CHEMISTRY METHOD 05/21/2024 10:23 AM EST [facility] Potassium 4.3 3.5 - 5.5 mmol/L LAB CHEMISTRY METHOD 05/21/2024 10:23 AM EST [facility] Chloride 100 96 - 110 mmol/L LAB CHEMISTRY METHOD 05/21/2024 10:23 AM EST [facility] CO2 31 21 - 32 mmol/L LAB CHEMISTRY METHOD 05/21/2024 10:23 AM [facility] Anion Gap 7 3 - 11 LAB CHEMISTRY METHOD 05/21/2024 10:23 AM [facility] Glucose 105(H) 70 - 100 mg/dL LAB CHEMISTRY METHOD 05/21/2024 10:23 AM [facility] BUN 14 5 - 25 mg/dL LAB CHEMISTRY METHOD 05/21/2024 10:23 AM [facility] Creatinine 0.90 0.70 - 1.30 mg/dL LAB CHEMISTRY METHOD 05/21/2024 10:23 AM [facility] eGFR 96 >=60 mL/min/1. 73m2 LAB CHEMISTRY METHOD 05/21/2024 10:23 AM [facility] Comment:Calculation based on the Chronic Kidney Disease Epidemiology Collaboration (CKD-EPI) equation refit without adjustment for race. BUN/Creatinine Ratio 15.6 LAB CHEMISTRY METHOD 05/21/2024 10:23 AM [facility] Calcium 9.4 8.5 - 10.5 mg/dL LAB CHEMISTRY METHOD 05/21/2024 10:23 AM [facility] Blood Venous blood specimen / Unknown Venipuncture / Unknown 05/21/2024 6:42 AM EST 05/21/2024 9:50 AM EST Jasbir Morocho MD LAB BLOOD ORDERABLES Final R esult [facility] [address] [place] [address], * (ABNORMAL) Complete blood count (05/21/2024 6:42 AM EST) WBC 12.7(H) 4.8 - 10.8 K/mcL LAB HEMETOLOGY METHOD 05/21/2024 10:07 AM [facility] RBC 3.70(L) 4.50 - 5.50 M/mcL LAB HEMETOLOGY METHOD 05/21/2024 10:07 AM [facility] Hemoglobin 10.7(L) 13.5 - 17.5 g/dL LAB HEMETOLOGY METHOD 05/21/2024 10:07 AM [facility] Hematocrit 34.1(L) 42.0 - 54.0 % LAB HEMETOLOGY METHOD 05/21/2024 10:07 AM [facility] MCV 93.4 79.0 - 98.0 FL LAB HEMETOLOGY METHOD 05/21/2024 10:07 AM [facility] MCH 29.3 27.0 - 32.0 pcg LAB HEMETOLOGY METHOD 05/21/2024 10:07 AM [facility] MCHC 31.4(L) 32.0 - 37.0 g/dL LAB HEMETOLOGY METHOD 05/21/2024 10:07 AM [facility] RDW 15.4(H) 11.0 - 15.0 % LAB HEMETOLOGY METHOD 05/21/2024 10:07 AM [facility] Platelets 238 130 - 400 K/mcL LAB HEMETOLOGY METHOD 05/21/2024 10:07 AM [facility] MPV 12.3(H) 7.0 - 11.0 FL LAB HEMETOLOGY METHOD 05/21/2024 10:07 AM [facility] NRBC 0.0 <1.0 % LAB HEMETOLOGY METHOD 05/21/2024 10:07 AM [facility] NRBC Absolute 0.00 <0.10 K/mcL LAB HEMETOLOGY METHOD 05/21/2024 10:07 AM [facility] Blood Venous blood specimen / Unknown Venipuncture / Unknown 05/21/2024 6:42 AM EST 05/21/2024 9:50 AM EST Jasbir Morocho MD LAB BLOOD ORDERABLES Final R esult [facility] [address] [place] [address], documented in this encounter Visit Diagnoses Diagnosis 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 Unspecified cirrhosis of liver ([facility] V24, [facility] V28) Unspecified dementia, unspecified severity, without behavioral disturbance, psychotic disturbance, mood disturbance, and anxiety ([facility] V24, [facility] V28) Chronic kidney disease, unspecified Unspecified atrial fibrillation ([facility] V24, [facility] V28) documented in this encounter Care Teams Clearing Inspector Relationship Specialty Start Date End Date Jasbir Morocho MD [address] [place] [address] PCP - General Family Medicine 05/22/24 documented as of this encounter
--- OUTSIDE RECORDS SUMMARY | 2025-04-19 21:53 | XMS_ITS | Encounter Summary ---
Author Organization [employer] Address [address] [place] [address] Care Team Providers Care Maintenance Associate Name Role Phone Jasbir Morocho MD Primary Care Provider [phone] Encounter Details Date Type Department Care Team (Latest Contact Info) Description 05/29/2024 Lab Requisition [facility] - Main Lab [address] [place] [address] Jasbir Morocho MD [address] [place] [address] Acute kidney failure, unspecified (CMS/HCC V24); Hepatic [...] LAB CHEMISTRY METHOD 05/29/2024 2:59 PM EST [facility] Blood Venous blood specimen / Unknown 05/29/2024 10:49 AM EST 05/29/2024 2:40 PM EST us Jasbir Morocho MD LAB BLOOD ORDERABLES Final R esult [facility] [address] [place] [address], documented in this encounter Visit Diagnoses Diagnosis Acute kidney failure, unspecified (CMS/HCC V24) Acute kidney failure, unspecified Hepatic encephalopathy (CMS/HCC V24, CMS/HCC V28) Hepatic encephalopathy Essential (primary) hypertension Unspecified essential hypertension documented in this encounter Care Teams Maintenance Associate Relationship Specialty Start Date End Date Jasbir Morocho MD [address] [place] [address] PCP - General Family Medicine 05/22/24 documented as of this encounter
--- OUTSIDE RECORDS SUMMARY | 2025-04-19 21:53 | XMS_ITS | Encounter Summary ---
Author Organization [employer] Address [address] [place] [address] Care Team Providers Care Men'S Leather Dress Belt Maker Name Role Phone Jasbir Morocho MD Primary Care Provider [phone] Encounter Details Date Type Department Care Team (Latest Contact Info) Description 06/18/2024 Lab Requisition [facility] - Main Lab [address] [facility] [place] [address] Jasbir Morocho MD [address] [place] [address] Hepatic encephalopathy (CMS/HCC V24, CMS/HCC V28) Social [...] encephalopathy documented in this encounter Care Teams Men'S Leather Dress Belt Maker Relationship Specialty Start Date End Date Jasbir Morocho MD [address] [place] [id number] PCP - General Family Medicine 05/22/24 documented as of this encounter
--- OUTSIDE RECORDS SUMMARY | 2025-04-19 21:53 | XMS_ITS | Encounter Summary ---
Author Organization [employer] Address [address] [place] [address] Care Team Providers Care Dramatic Critic Name Role Phone Jasbir Morocho MD Primary Care Provider [phone] Encounter Details Date Type Department Care Team (Latest Contact Info) Description 05/28/2024 Lab Requisition [facility] [address] [place] [address] Jasbir Morocho MD [address] [place] [address] Hepatic encephalopathy (CMS/HCC V24, CMS/HCC V28); Essential [...] LAB CHEMISTRY METHOD 05/29/2024 1:18 PM [facility] Anion Gap 10 3 - 11 LAB CHEMISTRY METHOD 05/29/2024 1:18 PM [facility] Glucose 122(H) 70 - 100 mg/dL LAB CHEMISTRY METHOD 05/29/2024 1:18 PM [facility] BUN 26(H) 5 - 25 mg/dL LAB CHEMISTRY METHOD 05/29/2024 1:18 PM [facility] Creatinine 1.61(H) 0.70 - 1.30 mg/dL LAB CHEMISTRY METHOD 05/29/2024 1:18 PM [facility] eGFR 48(L) >=60 mL/min/1. 73m2 LAB CHEMISTRY METHOD 05/29/2024 1:18 PM [facility] Comment:Calculation based on the Chronic Kidney Disease Epidemiology Collaboration (CKD-EPI) equation refit without adjustment for race. BUN/Creatinine Ratio 16.1 LAB CHEMISTRY METHOD 05/29/2024 1:18 PM [facility] Calcium 10.4 8.5 - 10.5 mg/dL LAB CHEMISTRY METHOD 05/29/2024 1:18 PM [facility] Blood Venous blood specimen / Unknown Venipuncture / Unknown 05/29/2024 7:56 AM EST 05/29/2024 11:51 AM EST us Jasbir Morocho MD LAB BLOOD ORDERABLES Final R esult [facility] [address] [place] [address], documented in this encounter Visit Diagnoses Diagnosis Hepatic encephalopathy (CMS/HCC V24, CMS/HCC V28) Hepatic encephalopathy Essential (primary) hypertension Unspecified essential hypertension documented in this encounter Care Teams Dramatic Critic Relationship Specialty Start Date End Date Jasbir Morocho MD [address] [place] [address] PCP - General Family Medicine 05/22/24 documented as of this encounter
--- OUTSIDE RECORDS SUMMARY | 2025-04-19 21:53 | XMS_ITS | Clinical Summary ---
Author Organization [facility] Address [address] [place] [address] [address] [place] [address] Phone Care Team Providers Care Content Development Specialist Name Role Phone Ortiz Deluca NP Primary Care Provider [phone] Allergies No known active allergies Medications risperiDONE [...] this topic Insurance Medicare Medicare Care Teams Content Development Specialist Relationship Specialty Start Date End Date Ortiz Deluca NP [address] [place], [place] [phone] PCP - General Nurse Practitioner 10/27/21
--- OUTSIDE RECORDS SUMMARY | 2025-04-19 21:53 | XMS_ITS | Encounter Summary ---
Author Organization [facility] Address [address] [place] [address] Care Team Providers Care Screw Machine Operator Name Role Phone Jasbir Morocho MD Primary Care Provider [phone] Encounter Details Date Type Department Care Team (Latest Contact Info) Description 06/04/2024 Lab Requisition [facility] - Main Lab [address] [place] [address] Jasbir Morocho MD [address] [place] [address] Hepatic encephalopathy (CMS/HCC V24, CMS/HCC V28); Essential [...] LAB CHEMISTRY METHOD 06/05/2024 8:27 AM EST [facility] ([facility] Blood Venous blood specimen / Unknown Venipuncture / Unknown 06/05/2024 6:55 AM EST 06/05/2024 8:01 AM EST us Jasbir Morocho MD LAB BLOOD ORDERABLES Final R esult [facility] LAB [address] [place] [address], * (ABNORMAL) Basic metabolic panel (06/05/2024 6:55 AM EST) Sodium 138 133 - 145 mmol/L LAB CHEMISTRY METHOD 06/05/2024 9:18 AM [facility] LAB Potassium 4.5 3.5 - 5.5 mmol/L LAB CHEMISTRY METHOD 06/05/2024 9:18 AM [facility] LAB Chloride 100 96 - 110 mmol/L LAB CHEMISTRY METHOD 06/05/2024 9:18 AM [facility] LAB CO2 33(H) 21 - 32 mmol/L LAB CHEMISTRY METHOD 06/05/2024 9:18 AM [facility] LAB Anion Gap 5 3 - 11 LAB CHEMISTRY METHOD 06/05/2024 9:18 AM [facility] LAB Glucose 109(H) 70 - 100 mg/dL LAB CHEMISTRY METHOD 06/05/2024 9:18 AM [facility] LAB BUN 31(H) 5 - 25 mg/dL LAB CHEMISTRY METHOD 06/05/2024 9:18 AM [facility] LAB Creatinine 1.81(H) 0.70 - 1.30 mg/dL LAB CHEMISTRY METHOD 06/05/2024 9:18 AM [facility] LAB eGFR 41(L) >=60 mL/min/1. 73m2 LAB CHEMISTRY METHOD 06/05/2024 9:18 AM [facility] LAB Comment:Calculation based on the Chronic Kidney Disease Epidemiology Collaboration (CKD-EPI) equation refit without adjustment for race. BUN/Creatinine Ratio 17.1 LAB CHEMISTRY METHOD 06/05/2024 9:18 AM [facility] LAB Calcium 9.7 8.5 - 10.5 mg/dL LAB CHEMISTRY METHOD 06/05/2024 9:18 AM [facility] LAB Blood Venous blood specimen / Unknown Venipuncture / Unknown 06/05/2024 6:55 AM EST 06/05/2024 8:41 AM EST Jasbir Morocho MD LAB BLOOD ORDERABLES Final R esult [facility] LAB [address] [place] [address], * (ABNORMAL) Complete blood count (06/05/2024 6:55 AM EST) WBC 10.5 4.8 - 10.8 K/mcL LAB HEMETOLOGY METHOD 06/05/2024 8:59 AM [facility] LAB RBC 4.10(L) 4.50 - 5.50 M/[facility] LAB HEMETOLOGY METHOD 06/05/2024 8:59 AM [facility] LAB Hemoglobin 12.2(L) 13.5 - 17.5 g/dL LAB HEMETOLOGY METHOD 06/05/2024 8:59 AM [facility] LAB Hematocrit 39.5(L) 42.0 - 54.0 % LAB HEMETOLOGY METHOD 06/05/2024 8:59 AM [facility] LAB MCV 95.6 79.0 - 98.0 FL LAB HEMETOLOGY METHOD 06/05/2024 8:59 AM [facility] LAB MCH 29.5 27.0 - 32.0 pcg LAB HEMETOLOGY METHOD 06/05/2024 8:59 AM [facility] LAB MCHC 30.9(L) 32.0 - 37.0 g/dL LAB HEMETOLOGY METHOD 06/05/2024 8:59 AM EST [facility] LAB RDW 14.8 11.0 - 15.0 % LAB HEMETOLOGY METHOD 06/05/2024 8:59 AM EST [facility] LAB Platelets 281 130 - 400 K/mcL LAB HEMETOLOGY METHOD 06/05/2024 8:59 AM [facility] LAB MPV 11.5(H) 7.0 - 11.0 FL LAB HEMETOLOGY METHOD 06/05/2024 8:59 AM EST [facility] LAB NRBC 0.0 <1.0 % LAB HEMETOLOGY METHOD 06/05/2024 8:59 AM [facility] LAB NRBC Absolute 0.00 <0.10 K/mcL LAB HEMETOLOGY METHOD 06/05/2024 8:59 AM [facility] LAB Blood Venous blood specimen / Unknown Venipuncture / Unknown 06/05/2024 6:55 AM EST 06/05/2024 8:42 AM EST us Jasbir Morocho MD LAB BLOOD ORDERABLES Final R esult [facility] LAB [address] [place] [address], documented in this encounter Visit Diagnoses Diagnosis Hepatic encephalopathy (CMS/HCC V24, CMS/HCC V28) Hepatic encephalopathy Essential (primary) hypertension Unspecified essential hypertension documented in this encounter Care Teams Screw Machine Operator Relationship Specialty Start Date End Date Jasbir Morocho MD [address] [place] [address] PCP - General Family Medicine 05/22/24 documented as of this encounter
--- OUTSIDE RECORDS SUMMARY | 2025-04-19 21:53 | XMS_ITS | Encounter Summary ---
Author Organization [facility] Address [address] [place] [address] Care Team Providers Care Image Processing Engineer Name Role Phone Jasbir Morocho MD Primary Care Provider [phone] Encounter Details Date Type Department Care Team (Late st Contact Info) Description 05/22/2024 Lab Requisition [facility] - Main Lab [address] [place] [address] Jasbir Morocho MD [address] [place] [address] Essential (primary) hypertension Social History Tobacco Use [...] LAB CHEMISTRY METHOD 05/22/2024 8:52 AM EST [facility] Potassium 3.9 3.5 - 5.5 mmol/L LAB CHEMISTRY METHOD 05/22/2024 8:52 AM EST [facility] LAB Chloride 99 96 - 110 mmol/L LAB CHEMISTRY METHOD 05/22/2024 8:52 AM EST [facility] LAB CO2 32 21 - 32 mmol/L LAB CHEMISTRY METHOD 05/22/2024 8:52 AM [facility] LAB Anion Gap 6 3 - 11 LAB CHEMISTRY METHOD 05/22/2024 8:52 AM [facility] LAB Glucose 111(H) 70 - 100 mg/dL LAB CHEMISTRY METHOD 05/22/2024 8:52 AM [facility] LAB BUN 20 5 - 25 mg/dL LAB CHEMISTRY METHOD 05/22/2024 8:52 AM [facility] LAB Creatinine 1.01 0.70 - 1.30 mg/dL LAB CHEMISTRY METHOD 05/22/2024 8:52 AM [facility] LAB eGFR 84 >=60 mL/min/1. 73m2 LAB CHEMISTRY METHOD 05/22/2024 8:52 AM [facility] LAB Comment:Calculation based on the Chronic Kidney Disease Epidemiology Collaboration (CKD-EPI) equation refit without adjustment for race. BUN/Creatinine Ratio 19.8 LAB CHEMISTRY METHOD 05/22/2024 8:52 AM [facility] LAB Calcium 9.5 8.5 - 10.5 mg/dL LAB CHEMISTRY METHOD 05/22/2024 8:52 AM [facility] LAB Blood Venous blood specimen / Unknown Venipuncture / Unknown 05/22/2024 5:26 AM EST 05/22/2024 7:54 AM EST Jasbir Morocho MD LAB BLOOD ORDERABLES Final R esult [facility] [address] [place] [address], * (ABNORMAL) Complete blood count (05/22/2024 5:26 AM EST) WBC 12.2(H) 4.8 - 10.8 K/mcL LAB HEMETOLOGY METHOD 05/22/2024 8:39 AM [facility] LAB RBC 3.70(L) 4.50 - 5.50 M/mcL LAB HEMETOLOGY METHOD 05/22/2024 8:39 AM [facility] LAB Hemoglobin 10.8(L) 13.5 - 17.5 g/dL LAB HEMETOLOGY METHOD 05/22/2024 8:39 AM [facility] LAB Hematocrit 34.9(L) 42.0 - 54.0 % LAB HEMETOLOGY METHOD 05/22/2024 8:39 AM [facility] LAB MCV 93.8 79.0 - 98.0 FL LAB HEMETOLOGY METHOD 05/22/2024 8:39 AM [facility] LAB MCH 29.0 27.0 - 32.0 pcg LAB HEMETOLOGY METHOD 05/22/2024 8:39 AM [facility] LAB MCHC 30.9(L) 32.0 - 37.0 g/dL LAB HEMETOLOGY METHOD 05/22/2024 8:39 AM [facility] LAB RDW 15.4(H) 11.0 - 15.0 % LAB HEMETOLOGY METHOD 05/22/2024 8:39 AM [facility] LAB Platelets 241 130 - 400 K/mcL LAB HEMETOLOGY METHOD 05/22/2024 8:39 AM [facility] LAB MPV 12.1(H) 7.0 - 11.0 FL LAB HEMETOLOGY METHOD 05/22/2024 8:39 AM [facility] LAB NRBC 0.0 <1.0 % LAB HEMETOLOGY METHOD 05/22/2024 8:39 AM [facility] LAB NRBC Absolute 0.00 <0.10 K/mcL LAB HEMETOLOGY METHOD 05/22/2024 8:39 AM [facility] LAB Blood Venous blood specimen / Unknown Venipuncture / Unknown 05/22/2024 5:26 AM EST 05/22/2024 7:54 AM EST us Jasbir Morocho MD LAB BLOOD ORDERABLES Final R esult [facility] ([facility]) [facility] LAB [address] [place] [address], documented in this encounter Visit Diagnoses Diagnosis Essential (primary) hypertension Unspecified essential hypertension documented in this encounter Care Teams Image Processing Engineer Relationship Specialty Start Date End Date Jasbir Morocho MD [address] [place] [address] PCP - General Family Medicine 05/22/24 documented as of this encounter
--- OUTSIDE RECORDS SUMMARY | 2025-04-19 21:53 | XMS_ITS | Encounter Summary ---
Author Organization [facility] Address [address] [place] [address] Care Team Providers Care Intake Counselor Name Role Phone Jasbir Morocho MD Primary Care Provider [phone] Encounter Details Date Type Department Care Team (Latest Contact Info) Description 06/11/2024 Lab Requisition [facility] - Main Lab [address] [place] [address] Jasbir Morocho MD [address] [place] [address] Hepatic encephalopathy (CMS/HCC V24, CMS/HCC V28); Essential [...] LAB CHEMISTRY METHOD 06/12/2024 8:57 AM EST [facility] ([facility]) [facility] Blood Venous blood specimen / Unknown Venipuncture / Unknown 06/12/2024 7:15 AM EST 06/12/2024 8:35 AM EST us Jasbir Morocho MD LAB BLOOD ORDERABLES Final R esult [facility] LAB [address] [place] [address], [place] [phone] * (ABNORMAL) Basic metabolic panel (06/12/2024 7:15 AM EST) Sodium 139 133 - 145 mmol/L LAB CHEMISTRY METHOD 06/12/2024 9:04 AM [facility] LAB Potassium 4.5 3.5 - 5.5 mmol/L LAB CHEMISTRY METHOD 06/12/2024 9:04 AM [facility] LAB Chloride 100 96 - 110 mmol/L LAB CHEMISTRY METHOD 06/12/2024 9:04 AM [facility] LAB CO2 32 21 - 32 mmol/L LAB CHEMISTRY METHOD 06/12/2024 9:04 AM [facility] LAB Anion Gap 7 3 - 11 LAB CHEMISTRY METHOD 06/12/2024 9:04 AM [facility] LAB Glucose 92 70 - 100 mg/dL LAB CHEMISTRY METHOD 06/12/2024 9:04 AM [facility] LAB BUN 27(H) 5 - 25 mg/dL LAB CHEMISTRY METHOD 06/12/2024 9:04 AM [facility] LAB Creatinine 1.65(H) 0.70 - 1.30 mg/dL LAB CHEMISTRY METHOD 06/12/2024 9:04 AM [facility] LAB eGFR 46(L) >=60 mL/min/1. 73m2 LAB CHEMISTRY METHOD 06/12/2024 9:04 AM [facility] LAB Comment:Calculation based on the Chronic Kidney Disease Epidemiology Collaboration (CKD-EPI) equation refit without adjustment for race. BUN/Creatinine Ratio 16.4 LAB CHEMISTRY METHOD 06/12/2024 9:04 AM [facility] LAB Calcium 9.9 8.5 - 10.5 mg/dL LAB CHEMISTRY METHOD 06/12/2024 9:04 AM [facility] LAB Blood Venous blood specimen / Unknown Venipuncture / Unknown 06/12/2024 7:15 AM EST 06/12/2024 8:35 AM EST us Jasbir Morocho MD LAB BLOOD ORDERABLES Final R esult [facility] [address] [place] [address], * (ABNORMAL) Complete blood count (06/12/2024 7:15 AM EST) WBC 11.3(H) 4.8 - 10.8 K/mcL LAB HEMETOLOGY METHOD 06/12/2024 8:51 AM [facility] LAB RBC 4.40(L) 4.50 - 5.50 M/[facility] LAB HEMETOLOGY METHOD 06/12/2024 8:51 AM [facility] LAB Hemoglobin 12.7(L) 13.5 - 17.5 g/dL LAB HEMETOLOGY METHOD 06/12/2024 8:51 AM [facility] LAB Hematocrit 41.2(L) 42.0 - 54.0 % LAB HEMETOLOGY METHOD 06/12/2024 8:51 AM [facility] LAB MCV 94.5 79.0 - 98.0 FL LAB HEMETOLOGY METHOD 06/12/2024 8:51 AM [facility] LAB MCH 29.1 27.0 - 32.0 pcg LAB HEMETOLOGY METHOD 06/12/2024 8:51 AM [facility] LAB MCHC 30.8(L) 32.0 - 37.0 g/dL LAB HEMETOLOGY METHOD 06/12/2024 8:51 AM [facility] LAB RDW 14.4 11.0 - 15.0 % LAB HEMETOLOGY METHOD 06/12/2024 8:51 AM EST [facility] LAB Platelets 224 130 - 400 K/mcL LAB HEMETOLOGY METHOD 06/12/2024 8:51 AM [facility] LAB MPV 11.3(H) 7.0 - 11.0 FL LAB HEMETOLOGY METHOD 06/12/2024 8:51 AM EST [facility] LAB NRBC 0.0 <1.0 % LAB HEMETOLOGY METHOD 06/12/2024 8:51 AM EST [facility] LAB NRBC Absolute 0.00 <0.10 K/mcL LAB HEMETOLOGY METHOD 06/12/2024 8:51 AM EST [facility] LAB Blood Venous blood specimen / Unknown Venipuncture / Unknown 06/12/2024 7:15 AM EST 06/12/2024 8:35 AM EST us Jasbir Morocho MD LAB BLOOD ORDERABLES Final R esult [facility] [address] [place] [address], documented in this encounter Visit Diagnoses Diagnosis Hepatic encephalopathy (CMS/HCC V24, CMS/HCC V28) Hepatic encephalopathy Essential (primary) hypertension Unspecified essential hypertension documented in this encounter Care Teams Intake Counselor Relationship Specialty Start Date End Date Jasbir Morocho MD [address] [place] [address] PCP - General Family Medicine 05/22/24 documented as of this encounter
--- OUTSIDE RECORDS SUMMARY | 2025-04-19 21:53 | XMS_ITS | Clinical Summary ---
Author Organization [address] [facility] Address [address] [place] [address] Phone Care Team Providers Care City Planning Teacher Name Role Phone Jasbir Morocho MD Primary [...] LAB CHEMISTRY METHOD 06/12/2024 9:04 AM EST [facility] LAB eGFR 46(L) >=60 mL/min/1. 73m2 LAB CHEMISTRY METHOD 06/12/2024 9:04 AM EST [facility] LAB Comment:Calculation based on the [...] MD LAB BLOOD ORDERABLES Final R esult [facility] [address] [place] [address], from Last 3 Months or Most Recently Relevant to Health Maintenance Insurance MEDICAID - [place] MEDICARE [facility] Care Teams City Planning Teacher Relationship Specialty Start Date End Date Jasbir Morocho MD [address] [place] [address] PCP - General Family Medicine 05/22/24
[2025-04-19 21:57] LABS: Alanine Aminotransferase 72 U/L (0-40); Albumin Level 3.0 g/dL (3.5-5.0); Alkaline Phosphatase 316 U/L (39-117); Anion Gap 15 (12-20); Aspartate Amino Transferase 199 U/L (5-37); Blood Urea Nitrogen 20 mg/dL (9-16); Calcium 9.1 mg/dL (8.4-10.2); Carbon Dioxide 27 mmol/L (22-29); Chloride 96 mmol/L (96-108); Creatinine Clr Calc Pharmacy 82.2; Estimated Glomerular Filt Rate 57; Magnesium 1.9 mg/dL (1.6-2.6); Potassium 4.9 mmol/L (3.3-5.1); Sodium 133 mmol/L (135-145); Total Protein 7.3 g/dL (6.5-8.0)
--- NOTE | 2025-04-19 22:01 | ED.GENADULT ---
HPI - General Adult General Chief complaint: General Medical Stated complaint: coming from snf, was d/c earlier Time Seen by Provider: 04/19/25 21:04 Source: patient and EMS Mode of arrival: EMS Limitations: no limitations History of Present Illness ED Provider: Dr. Shelly Avilez HPI narrative: Patient comes to the emergency room by ambulance. The patient was discharged a few hours ago from the hospital floor. Patient was here for alcohol withdrawal, left arm and left knee pain secondary to a fall, hypomagnesemia and questionable UTI, possible contamination. Patient was discharged with nitrofurantoin. Patient was discharged to [facility] rehab. However, the patient reports that when he got there, the living conditions in his room were deprolarble. Patient states that his mattress in his room was on the floor, the [place] of the mattress popping out, the mattress smelled like urine. Patient requested to be brought back to the hospital. EMS confirms that the patient's mattress was on the floor and the room in poor sanitary conditions. On arrival, when the patient's nurse was taking vitals, it was noted that patient has a fever of 102.7. Patient denies alcohol withdrawal symptoms Related Data Previous Rx's ?Medication ?Instructions ?Recorded blood-glucose meter (FreeStyle #1 ea 09/03/20 Lite Meter kit) lancets 28 gauge (FreeStyle #100 ea 02/02/21 Lancets) FreeStyle David 2 [place] (flash #1 ea 07/03/22 glucose scanning reader) FreeStyle David 2 Sensor (flash #1 ea 07/03/22 glucose sensor) acetaminophen 650 mg 650 mg PO Q12H PRN pain 30 days 04/17/24 tablet,extended release (Tylenol #60 tabs Arthritis Pain) amlodipine 5 mg tablet 5 mg PO DAILY #90 tabs 04/17/24 Held on 04/19/25. Instructions: BP soft, not getting during hospital stay magnesium 250 mg tablet 250 mg PO DAILY #30 tabs 05/20/24 multivitamin (Daily-Carlito tablet) 1 tab PO DAILY #90 tabs 07/18/24 thiamine HCl (vitamin B1) 100 mg 100 mg PO DAILY #30 tabs 07/18/24 tablet metoprolol tartrate 50 mg tablet 50 mg PO BID #180 tabs 09/11/24 apixaban 5 mg tablet (Eliquis) 5 mg PO BID #180 tabs 09/20/24 rosuvastatin 20 mg tablet 20 mg PO DAILY #90 tabs 10/07/24 folic acid 1 mg tablet 1 mg PO DAILY #90 tabs 11/06/24 metformin 850 mg tablet 850 mg PO DAILY #90 tabs 11/06/24 albuterol sulfate 90 mcg/actuation 2 puff inhalation QID PRN Wheezing 02/12/25 aerosol inhaler #8.5 grams furosemide 20 mg tablet 30 mg (1.5 x 20 mg) PO DAILY #135 02/21/25 Held on 04/19/25. tabs Instructions: BP soft, Patient not getting during hospital stay. Resume as BP allows omeprazole 20 mg capsule,delayed 40 mg (2 x 20 mg) PO DAILY@0630 02/21/25 release #180 caps lisinopril 2.5 mg tablet 2.5 mg PO DAILY #90 tabs 03/10/25 Held on 04/19/25. Instructions: bp soft, not getting during hospital stay fluoxetine 40 mg capsule 40 mg PO DAILY #90 caps 03/13/25 Held on 04/19/25. Instructions: Patient not taking at home, not getting during hospital stay nitrofurantoin macrocrystal 100 mg 100 mg PO BID 7 days #14 caps 04/19/25 capsule Allergies Allergy/AdvReac Type Severity Reaction Status Date / Time No Known Allergies (No Known Allergy Verified 04/19/25 21:09 Allergies*) Review of Systems Review of Systems: Constitutional : No Weight loss, No Fever, No Chills, No Night Sweats, No Fatigue, No Malaise ENT/Mouth : No Hearing loss, No Ear Pain, No Nasal Congestion, No Sinus Pain, No Hoarseness, No sore throat, No Rhinorrhea, No Swallowing Difficulty Eyes: No Eye Pain, No Swelling, No Redness, No Foreign Body, No Discharge, No Vision Changes Cardiovascular : No Chest Pain, No SOB, No Dyspnea on Exertion, No Orthopnea, No Edema, No Palpitations Respiratory : No Cough, No Sputum, No Wheezing, No Smoke Exposure, No Dyspnea Gastrointestinal : No Nausea, No Vomiting, No Diarrhea, No Constipation, No abdominal Pain, No Hematochezia, No Melena Genitourinary : no irregular bleeding, No Dysuria, No Urinary Frequency, No Hematuria, No Urinary Incontinence, No Urgency, No Flank Pain, No Urinary Flow Changes, No Hesitancy Musculoskeletal : No joint pain, No Myalgias, No Joint Swelling Skin : No Skin Lesions, No rash Neuro : No Weakness, No Numbness, No Paresthesias, No Loss of Consciousness, No Dizziness, No Headache Psych : No Anxiety/Panic, No Depression, No SI/HI/AH/VH, No Social Issues, Heme/Lymph: No Bruising, No Bleeding,No Lymphadenopathy Endocrine : No Polyuria, No Polydipsia, No Temperature Intolerance [facility] Past Medical History Medical History MJ (obstructive sleep apnea) CHF (congestive heart failure) Alcohol use disorder, severe, dependence CHF (congestive heart failure) Effusion, right knee Screen for STD (sexually transmitted disease) Left ankle swelling Hypomagnesemia Diarrhea Acute UTI Physical exam Nocturia Microhematuria Elevated serum creatinine Morbid obesity Increased ammonia level Weakness of both lower extremities Dermatitis, unspecified History of cardiac arrest (~05/2020) Nicotine dependence, cigarettes, uncomplicated Personal history of colonic polyps Hypoventilation associated with obesity syndrome Encephalopathy chronic CKD (chronic kidney disease) stage 3, GFR 30-59 ml/min Cirrhosis Diabetes Obesity (BMI 35.0-39.9 without comorbidity) Wernicke encephalopathy Obstructive sleep apnea (adult) (pediatric) Rib fractures CHF (congestive heart failure) Left atrial enlargement Persistent atrial fibrillation Depression Gout Arthritis Anxiety HTN (hypertension) Surgical History History of tracheostomy (~2019) History of bronchoscopy (~2019) History of colonoscopy (~2021) History of esophagogastroduodenoscopy (EGD) (~2021) History of cardioversion (~2020) S/P percutaneous endoscopic gastrostomy (PEG) tube placement (~2019) Family History Family History Father Lung cancer Mother No problems noted. Maternal Aunt History of heart attack Sister No problems noted. Brother Cancer of kidney Brother No problems noted. Brother No problems noted. Brother No problems noted. Brother No problems noted. Brother No problems noted. Other Substance use disorder Social History Social History Household Members: Family Housing: House Do you presently have visiting nurse or other home services: No (pt refuses) Alcohol intake: current Alcohol intake frequency: 3 or more drinks per day Alcohol type: hard liquor Comment: pt refuses fall risk interventions and protocol Patient Tobacco Use Status: Current everyday Tobacco user Tobacco use type: Cigarette Cigarette Packs Per Day: 0.5 Cigarettes Per Day: 10.0 Years Smoked: 40 Smoked in Last 30 Days: Yes e-Cigarette/Vaping Use: Never Used Second Hand Smoke Exposure: No Use of substances other than those prescribed or required for medical reasons: No Advance Directives: Yes Advance Directives on File: Yes Advance Directives Date on File: 06/05/20 Do you have a plan to hurt others: No Plan service: Yes Current occupational status: unemployed Cognitive needs: No Hearing needs: No Vision needs: No Physical Exam ED Exam Exam: Appearance: Alert. Oriented X3. No acute distress. Eyes: Pupils equal, round and reactive to light. ENT: Pharynx normal. Neck: Normal inspection. Neck supple. No lymph nodes noted. No crepitus CVS: Normal heart rate and rhythm. Pulses normal. Normal S1 and S2 Respiratory: No respiratory distress. Breath sounds normal. No Wheezing. No rales Abdomen: Soft and nontender. No rigidity. No distention. Skin: Skin warm and dry. Normal skin color. Normal skin turgor. Extremities: Patient has bilateral lower extremity edema, +1 on the right foot, +3 on the left foot Neuro: Oriented X 3. No motor deficit. No sensory deficit. Moving all extremities. No slurred speech. CN 2 through 12 grossly intact Psych: calm, cooperative, normal affect Vital Signs: Vital Signs - 24 hr 04/19/25 21:06 04/19/25 21:24 Temperature 102.7 F H 102.6 F H Pulse Rate 111 H 113 H Respiratory Rate 21 H 18 Blood Pressure 108/62 Pulse Oximetry 93 89 L Oxygen Delivery Method Room Air BMI result Body Mass Index 39.7 Course Course Course Narrative: Initially, patient came to the emergency room after being discharged from floor, the living conditions in the longterm facility were all acceptable. However, when patient returned, it was noted the patient had a fever. In his previous admission, patient had a questionable UTI Given patient's presentation, patient is empirically being treated with IV fluids based on ideal weight of 66 kg, patient is obese, and IV vancomycin given patient's microbiology sensitivity. Given patient's microbiology sensitivity report, the urine is sensitive to vancomycin, trimethoprim sulfa sulfamethoxazole. Patient is already on p.o. nitrofurantoin. At this time, there are no other obvious sources of infection. Patient has no URI symptoms. It is possible that patient may have a viral syndrome that he contracted from being in the hospital. All of patient's labs pending Vitals stable Sepsis is not suspected Medications Administered Discontinued Medications Generic Name Dose Route Start Last Admin Trade Name Freq PRN Reason Stop Dose Admin Acetaminophen 975 mg 04/19/25 21:33 04/19/25 21:35 Acetaminophen 325 Mg Tablet PO 04/19/25 21:34 975 mg ONCE ONE Administration Vancomycin HCl 2,000 mg in 500 mls @ 250 mls/hr 04/19/25 21:20 04/19/25 21:26 Vancomycin/Ns IV 04/19/25 23:19 250 mls/hr ONCE ONE Administration Sodium Chloride 2,000 mls @ 999 mls/hr 04/19/25 21:20 04/19/25 22:14 Ns IVCONT 04/19/25 23:20 Infused .Q2H1M ONE Infusion Medical Decision Making Medical Decision Making [facility] Narrative: My interpretation of labs: Patient's white blood cell count 11.1, no significant abnormality in patient's chemistry, sodium slightly decreased at 133, patient asymptomatic. Lactic 1.0 It was noted that patient's LFTs today are elevated, more than in his previous admission. Patient denies any abdominal pain. [place] [address] Before we got the results back, patient received a total of 1000 mL of fluid at 999 mL/ hour Patient's blood pressure stable Sepsis not suspected Patient's left elbow and left foot do not look erythematous, patient able to flex and extend both, no significant pain to palpation, no additional warmth to touch. Septic joint either in the elbow or foot is not suspected. Patient remained stable, no episodes of hypotension I discussed the above-mentioned with Dr. Hines from the Medicine team, patient being admitted [facility] our business case analyst Yvonne Aguilar has been consulted Differential Diagnosis Differential Diagnoses: The differential diagnosis associated with the presentation includes (Influenza, COVID, RSV, UTI) Admission/Observation Consideration of admission/observation: Escalation of care including admission/observation considered Consult Healthcare Provider Management of the patient was discussed with: Hospitalist Lab Data [facility] Lab Attestation statement: I reviewed the patient's lab results. 04/19/25 21:18 04/19/25 21:18 Labs: Lab Results 04/19/25 04/19/25 04/19/25 Range/Units 21:17 21:18 21:29 WBC 11.1 H (4.8-10.8) X10*3/uL RBC 3.84 L (4.60-5.80) X10*6/uL Hgb 11.1 L (14.0-18.0) g/dl Hct 33.8 L (42.0-52.0) % MCV 88.0 (80.0-98.0) fL MCH 28.9 (27.0-33.0) pg MCHC 32.8 (31.0-36.0) g/dl RDW 14.1 (11.0-16.0) % Plt Count 280 (160-400) X10*3/uL MPV 11.1 (9.4-12.4) fL Immature Gran % (Auto) 0.5 H (0.0-0.4) % Neut % (Auto) 73.2 H (45-73) % Lymph % (Auto) 16.2 L (20-40) % Ralls % (Auto) 9.2 (2-11) % Eos % (Auto) 0.5 (0-4) % Baso % (Auto) 0.4 (0-2) % Lymph # (Auto) 1.8 (1.2-4.9) X10*3/uL Ralls # (Auto) 1.0 (0.1-1.2) X10*3/uL Eos # (Auto) 0.1 (0.0-0.4) X10*3/uL Baso # (Auto) 0.0 (0.0-0.2) X10*3/uL Abs Immat Gran (auto) 0.05 H (0.00-0.03) X10*3/uL Absolute Neuts (auto) 8.1 (2.0-8.3) x10*3/uL Absolute Nucleated RBC 0.000 (0.0-0.012) X10*3/uL Nucleated RBC % (auto) 0.0 (0.0-0.2) /100WBC PT 18.5 H (10.9-12.4) SEC INR 1.6 H (0.9-1.1) Sodium 133 L (135-145) mmol/L Potassium 4.9 (3.3-5.1) mmol/L Chloride 96 (96-108) mmol/L Carbon Dioxide 27 (22-29) mmol/L Anion Gap 15 (12-20) BUN 20 H (9-16) mg/dL Creatinine 1.28 (0.5-1.4) mg/dL Estim Creat Clear Calc 82.2 Estimated GFR 57 Random Glucose 112 (60-115) mg/dL Lactic Acid 1.0 (0.5-2.0) mmol/L Calcium 9.1 (8.4-10.2) mg/dL Magnesium 1.9 (1.6-2.6) mg/dL Total Bilirubin 1.0 (0.0-1.0) mg/dL AST 199 H (5-37) U/L ALT 72 H (0-40) U/L Alkaline Phosphatase 316 H (39-117) U/L NT-Pro-B Natriuret Pep 48550.8 H (<300) pg/mL Total Protein 7.3 (6.5-8.0) g/dL Albumin 3.0 L (3.5-5.0) g/dL Urine Color Urine Appearance Urine pH (5.0-9.0) Ur Specific B[place] (1.005-1.025) Urine Protein (Neg-Trace) mg/dL Urine Glucose (UA) (Negative) mg/dL Urine Ketones (Negative) mg/dL Urine Blood (Negative) Urine Nitrite (Negative) Ur Leukocyte Esterase (Negative) Urine RBC (0-2) /HPF Urine WBC (0-5) /HPF Ur Squamous Epith Cells (0-2) /HPF Urine Bacteria (None Seen) Hyaline Casts (0-2) /LPF Influenza Type A (PCR) NEGATIVE (Negative) Influenza Type B (PCR) NEGATIVE (Negative) RSV RNA Qual (PCR) NEGATIVE (Negative) SARS-CoV-2 RNA (RT-PCR) NEGATIVE (Negative) 04/19/25 Range/Units 22:49 WBC (4.8-10.8) X10*3/uL RBC (4.60-5.80) X10*6/uL Hgb (14.0-18.0) g/dl Hct (42.0-52.0) % MCV (80.0-98.0) fL MCH (27.0-33.0) pg MCHC (31.0-36.0) g/dl RDW (11.0-16.0) % Plt Count (160-400) X10*3/uL MPV (9.4-12.4) fL Immature Gran % (Auto) (0.0-0.4) % Neut % (Auto) (45-73) % Lymph % (Auto) (20-40) % Ralls % (Auto) (2-11) % Eos % (Auto) (0-4) % Baso % (Auto) (0-2) % Lymph # (Auto) (1.2-4.9) X10*3/uL Ralls # (Auto) (0.1-1.2) X10*3/uL Eos # (Auto) (0.0-0.4) X10*3/uL Baso # (Auto) (0.0-0.2) X10*3/uL Abs Immat Gran (auto) (0.00-0.03) X10*3/uL Absolute Neuts (auto) (2.0-8.3) x10*3/uL Absolute Nucleated RBC (0.0-0.012) X10*3/uL Nucleated RBC % (auto) (0.0-0.2) /100WBC PT (10.9-12.4) SEC INR (0.9-1.1) Sodium (135-145) mmol/L Potassium (3.3-5.1) mmol/L Chloride (96-108) mmol/L Carbon Dioxide (22-29) mmol/L Anion Gap (12-20) BUN (9-16) mg/dL Creatinine (0.5-1.4) mg/dL Estim Creat Clear Calc Estimated GFR Random Glucose (60-115) mg/dL Lactic Acid (0.5-2.0) mmol/L Calcium (8.4-10.2) mg/dL Magnesium (1.6-2.6) mg/dL Total Bilirubin (0.0-1.0) mg/dL AST (5-37) U/L ALT (0-40) U/L Alkaline Phosphatase (39-117) U/L NT-Pro-B Natriuret Pep (<300) pg/mL Total Protein (6.5-8.0) g/dL Albumin (3.5-5.0) g/dL Urine Color Dark Yellow Urine Appearance Clear Urine pH 8.0 (5.0-9.0) Ur Specific Bittinger 1.020 (1.005-1.025) Urine Protein 100 (2+) H (Neg-Trace) mg/dL Urine Glucose (UA) Negative (Negative) mg/dL Urine Ketones Negative (Negative) mg/dL Urine Blood Negative (Negative) Urine Nitrite Negative (Negative) Ur Leukocyte Esterase Trace H (Negative) Urine RBC 0-2 (0-2) /HPF Urine WBC 0-5 (0-5) /HPF Ur Squamous Epith Cells 0-2 (0-2) /HPF Urine Bacteria None Seen (None Seen) Hyaline Casts 0-2 (0-2) /LPF Influenza Type A (PCR) (Negative) Influenza Type B (PCR) (Negative) RSV RNA Qual (PCR) (Negative) SARS-CoV-2 RNA (RT-PCR) (Negative) Radiology Impression Discussion of test interpretation with radiology: I have reviewed the radiologist's reading. Radiologist Impression: The lungs are clear. Enlarged cardiac silhouette. No acute fracture. IMPRESSION: 1. No acute findings. Independent Historian Clinical information obtained from an independent historian. History obtained from or confirmed by: EMS Critical Care Time Critical Care Time Critical Care Time: Yes Total Critical Care Time: 60 Attestation: I have personally provided critical care time. Time includes review of lab data, radiology results, discussion with consultants, and monitoring for potential decompensation. Intervention performed as documented. Discharge Plan Discharge Clinical Impression: Acute UTI, Fever, Unsatisfactory living conditions Patient Disposition: Admitted As Inpatient Print Language: Cook Islander
[2025-04-19 22:10] LABS: NT Pro B Type Natriuretic Pept 10443.8 pg/mL (<300)
--- NOTE | 2025-04-19 22:14 | PC.NURSE ---
due to elevated BNP fluids stopped per DR at this time, patient received 900mL NS
[2025-04-19 22:24] LABS: Resp Syncy Virus RNA Qual PCR NEGATIVE (Negative); SARS COV2 PCR INHOUSE NEGATIVE (Negative)
[2025-04-19 22:30] VITALS: BP 118/82
[2025-04-19 22:38] VITALS: BP 101/61
[2025-04-19 23:03] LABS: Appearance Urine Clear; Glucose Urine UA Negative (Negative); PH 8.0 (5.0-9.0); Specific Gravity - Urine 1.020 (1.005-1.025); UMIC TRIGGER UACC YES
--- NOTE | 2025-04-20 00:10 | PM.IMHP ---
History of Present Illness Date of Service: 04/20/25 Attending physician on admission: Beau Hines Chief Complaint: terrible conditions at [facility] Patient is a 65-year-old male with a past medical history significant for paroxysmal AFib, HTN, morbid obesity, HFrEF, type 2 diabetes, mood disorder, and recent admission for alcohol withdrawal and mechanical fall discharged earlier today to short-term rehab, who presented to the ED due to ?terrible conditions and did not want to stay there ?. The patient reported that the conditions were terrible, his mattress was on the floor with springs sticking out and smelled like urine, which was confirmed by EMS. Upon arrival to the ED the patient was febrile at 102.7, tachycardic, tachypneic and intermittently hypoxic. He reports he is asymptomatic aside from some slight burning with urination. He denies any nausea, vomiting, chest pain, shortness of breath, abdominal pain. He later reports a cough with sputum production. He also states he is noncompliant with his Eliquis but has been taking this during his hospital stay and since discharge. He has bilateral lower extremity edema, left greater than right. During his recent hospitalization he was treated for a urinary tract infection and discharged with nitrofurantoin. Urine culture came back with staph, possible contaminant. Patient is currently meeting sepsis criteria with unclear etiology therefore we will admit for further evaluation and treatment with vanco and zosyn. Review of Systems Constitutional: Constitutional: Denies body ache(s), Reports chills, Denies fatigue, Reports fever(s) and Denies headache(s) Eyes: Eyes: Denies change in vision ENT: Denies headache(s), Denies nasal congestion and Denies sore throat Cardiovascular: Cardiovascular: Denies chest pain, Denies rapid heart rate, Reports leg edema, Denies lightheadedness and Denies dyspnea Respiratory: Respiratory: Reports chest congestion, Reports cough, Denies dyspnea and Denies wheezing Gastrointestinal: Gastrointestinal: Denies abdominal pain, Denies nausea and Denies vomiting Genitourinary: Genitourinary: Reports dysuria Musculoskeletal: Musculoskeletal: Denies myalgias Integumentary/Breasts: Skin/Breast: Denies rash Neurologic: Denies confusion and Denies headache(s) Psychiatric: Psychiatric: Denies confusion Endocrine: Endocrine: Denies fatigue Hematologic/Lymphatic: Hematologic/Lymphatic: Denies easy bleeding and Reports easy bruising Allergic/Immunologic: Allergic/Immunologic: Denies wheezing [facility] Medical History MJ (obstructive sleep apnea) CHF (congestive heart failure) Alcohol use disorder, severe, dependence CHF (congestive heart failure) Effusion, right knee Screen for STD (sexually transmitted disease) Left ankle swelling Hypomagnesemia Diarrhea Acute UTI Physical exam Nocturia Microhematuria Elevated serum creatinine Morbid obesity Increased ammonia level Weakness of both lower extremities Dermatitis, unspecified History of cardiac arrest (~05/2020) Nicotine dependence, cigarettes, uncomplicated Personal history of colonic polyps Hypoventilation associated with obesity syndrome Encephalopathy chronic CKD (chronic kidney disease) stage 3, GFR 30-59 ml/min Cirrhosis Diabetes Obesity (BMI 35.0-39.9 without comorbidity) Wernicke encephalopathy Obstructive sleep apnea (adult) (pediatric) Rib fractures CHF (congestive heart failure) Left atrial enlargement Persistent atrial fibrillation Depression Gout Arthritis Anxiety HTN (hypertension) Family History Father Lung cancer Mother No problems noted. Maternal Aunt History of heart attack Sister No problems noted. Brother Cancer of kidney Brother No problems noted. Brother No problems noted. Brother No problems noted. Brother No problems noted. Brother No problems noted. Other Substance use disorder Surgical History History of tracheostomy (~2019) History of bronchoscopy (~2019) History of colonoscopy (~2021) History of esophagogastroduodenoscopy (EGD) (~2021) History of cardioversion (~2020) S/P percutaneous endoscopic gastrostomy (PEG) tube placement (~2019) Social History Household Members: Family Housing: House Do you presently have visiting nurse or other home services: No (pt refuses) Alcohol intake: current Alcohol intake frequency: 3 or more drinks per day Alcohol type: hard liquor Comment: pt refuses fall risk interventions and protocol Patient Tobacco Use Status: Current everyday Tobacco user Tobacco use type: Cigarette Cigarette Packs Per Day: 0.5 Cigarettes Per Day: 10.0 Years Smoked: 40 Smoked in Last 30 Days: Yes e-Cigarette/Vaping Use: Never Used Second Hand Smoke Exposure: No Use of substances other than those prescribed or required for medical reasons: No Advance Directives: Yes Advance Directives on File: Yes Advance Directives Date on File: 06/05/20 Do you have a plan to hurt others: No Plan service: Yes Current occupational status: unemployed Cognitive needs: No Hearing needs: No Vision needs: No Meds Allergies Allergy/AdvReac Type Severity Reaction Status Date / Time No Known Allergies (No Known Allergy Verified 04/19/25 21:09 Allergies*) Active Medications: Current Medications Dextrose (Dextrose 50 % 25 Gm/50 Ml Syringe) 25 gm IVPUSH Q15M PRN; Protocol PRN Reason: per Hypoglycemia Standing Ord. Glucose (Glucose Gel 15 Gm Gel..Gram.) 15 gm PO Q15M PRN; Protocol PRN Reason: per Hypoglycemia Standing Ord. Piperacillin Sod/Tazobactam (Sod 3.375 gm/ Sodium Chloride) 50 mls @ 100 mls/hr IV Q6H JESSICA Insulin Human Lispro (Insulin Lispro 100 Unit/Ml 3 Ml Vial) 0 unit SUBCUT Q6H JESSICA; Protocol Pharmacy Consult (Consult Rx Vancomycin Dosing) 1 each MISCELLANE DAILY PRN PRN Reason: Consult order Physical Exam Vital Signs and Narrative: Vital Signs: Last Vital Signs Temp 102.6 F H 04/19/25 21:24 Pulse 113 H 04/19/25 21:24 Resp 18 04/19/25 21:24 BP 101/61 04/19/25 22:38 Pulse Ox 89 L 04/19/25 21:24 O2 Del Method Room Air 04/19/25 21:06 BMI result Body Mass Index 39.7 General: AOx3, no acute distress Resp: CTA bilaterally, no wheezing or crackles CVS: tachy, irregularly irregular GI: +BS, NT, no distention. negative ramirez's sign Skin: Warm, dry Neuro: Cranial nerves II-XII grossly intact bilaterally. Motor grossly intact bilaterally Extremities: 1+ pitting edema mostly in feet L>R Psych: Appropriate affect Const: General: No confusion Orientation/consciousness: No confusion Neuro: General: No confusion Results Labs 04/19/25 21:18 04/19/25 21:18 Labs: Laboratory Results - last 24 hr 10/24/25 10/24/25 10/24/25 21:17 21:18 21:29 MCV 88.0 MCH 28.9 MCHC 32.8 RDW 14.1 Plt Count 280 MPV 11.1 Immature Gran % (Auto) 0.5 H Neut % (Auto) 73.2 H Lymph % (Auto) 16.2 L [place] % (Auto) 9.2 Eos % (Auto) 0.5 Baso % (Auto) 0.4 Lymph # (Auto) 1.8 [place] # (Auto) 1.0 Eos # (Auto) 0.1 Baso # (Auto) 0.0 Abs Immat Gran (auto) 0.05 H Absolute Neuts (auto) 8.1 Absolute Nucleated RBC 0.000 Nucleated RBC % (auto) 0.0 PT 18.5 H INR 1.6 H Anion Gap 15 Estim Creat Clear Calc 82.2 Estimated GFR 57 Random Glucose 112 Lactic Acid 1.0 Calcium 9.1 Magnesium 1.9 Total Bilirubin 1.0 AST 199 H ALT 72 H Alkaline Phosphatase 316 H NT-Pro-B Natriuret Pep 71668.8 H Total Protein 7.3 Albumin 3.0 L Urine Color Urine Appearance Urine pH Ur Specific [place] Urine Protein Urine Glucose (UA) Urine Ketones Urine Blood Urine Nitrite Ur Leukocyte Esterase Urine RBC Urine WBC Ur Squamous Epith Cells Urine Bacteria Hyaline Casts Influenza Type A (PCR) NEGATIVE Influenza Type B (PCR) NEGATIVE RSV RNA Qual (PCR) NEGATIVE SARS-CoV-2 RNA (RT-PCR) NEGATIVE 04/19/25 22:49 MCV MCH MCHC RDW Plt Count MPV Immature Gran % (Auto) Neut % (Auto) Lymph % (Auto) [place] % (Auto) Eos % (Auto) Baso % (Auto) Lymph # (Auto) [place] # (Auto) Eos # (Auto) Baso # (Auto) Abs Immat Gran (auto) Absolute Neuts (auto) Absolute Nucleated RBC Nucleated RBC % (auto) PT INR Anion Gap Estim Creat Clear Calc Estimated GFR Random Glucose Lactic Acid Calcium Magnesium Total Bilirubin AST ALT Alkaline Phosphatase NT-Pro-B Natriuret Pep Total Protein Albumin Urine Color Dark Yellow Urine Appearance Clear Urine pH 8.0 Ur Specific [place] 1.020 Urine Protein 100 (2+) H Urine Glucose (UA) Negative Urine Ketones Negative Urine Blood Negative Urine Nitrite Negative Ur Leukocyte Esterase Trace H Urine RBC 0-2 Urine WBC 0-5 Ur Squamous Epith Cells 0-2 Urine Bacteria None Seen Hyaline Casts 0-2 Influenza Type A (PCR) Influenza Type B (PCR) RSV RNA Qual (PCR) SARS-CoV-2 RNA (RT-PCR) Assessment and Plan (1) Acute and chronic respiratory failure with hypoxia: Status: Acute (2) SIRS (systemic inflammatory response syndrome): Status: Acute (3) Lower extremity edema: Status: Acute (4) Transaminitis: Status: Acute (5) Obesity: Status: Acute (6) Unsatisfactory living conditions: Status: Acute Plan Patient is a 65-year-old male with a past medical history significant for paroxysmal AFib, HTN, morbid obesity, HFrEF, type 2 diabetes, mood disorder, and recent admission for alcohol withdrawal and mechanical fall discharged earlier today to short-term rehab, who presented to the ED due to ?terrible conditions and did not want to stay there ?. Patient is currently meeting sepsis criteria with unclear etiology therefore we will admit for further evaluation and treatment with vanco and zosyn. acute on chronic hypoxic respiratory failure with hypoxia - titrate O2 as neeeded - CTA chest r/o PE - aspiration precautions - bedside swallow prior to p.o. SIRS+ (tachypnea, tachycardia, febrile), unknown etiology - recent urine culture positive for staph, likely contaminant has been on nitrofurantoin - vancomycin and Zosyn - CTA chest to rule out PE as above - RPP - sputum culture - ID consult - monitor CBC and CMP chronic HFpEF, Bilateral lower extremity edema, left greater than right - bilateral venous Doppler ultrasounds - echo - hold Lasix due to possible sepsis and low BP Transaminitis - right upper quadrant ultrasound - GI consult Paroxysmal AFib - rate currently in low 100s, BP soft, holding metoprolol - eliqius Type 2 diabetes - hold metformin - sliding scale insulin HTN - hold home meds, BP soft Mood disorder - continue home meds MJ - CPAP at bedtime Morbid obesity - weight loss encouraged Med rec pending Full code VTE prophylaxis: Rosie Patient with acute on chronic hypoxic respiratory failure, SIRS positive, source unknown, requiring admission for at least 2 midnight stay for further evaluation, IV antibiotics and monitoring. Quality Stroke Does the patient have a stroke diagnosis?: No VTE Prior VTE?: No VTE Risk Level:: Medical - moderate - high VTE Device Contraindication: Treatment Not Indicated VTE Drug Contraindication: N/A - Med Ordered
[2025-04-20 00:20] LABS: Glucose, Whole Blood 113 mg/dL (60-115)
[2025-04-20 00:30] LABS: Troponin-I High Sensitivity 4.2 ng/L (<3.5-35.0)
[2025-04-20] MEDS: iohexoL 350 MG/ML 100 ML INFUS..BTL IV (00:53)
[2025-04-20 01:08] LABS: Procalcitonin 0.16 ng/mL
[2025-04-20 01:16] VITALS: BP 110/71; PULSE 88; RESP 16; TEMP 37.4; O2SAT 95
--- NOTE | 2025-04-20 01:44 | HO.NURTONUR ---
Patient is a 65-year-old male with a past medical history significant for paroxysmal AFib, HTN, morbid obesity, HFrEF, type 2 diabetes, mood disorder, and recent admission for alcohol withdrawal and mechanical fall discharged earlier today to short-term rehab, who presented to the ED due to ?terrible conditions and did not want to stay there ?. The patient reported that the conditions were terrible, his mattress was on the floor with springs sticking out and smelled like urine, which was confirmed by EMS. Upon arrival to the ED the patient was febrile at 102.7, tachycardic, tachypneic and intermittently hypoxic. He reports he is asymptomatic aside from some slight burning with urination. He denies any nausea, vomiting, chest pain, shortness of breath, abdominal pain. He later reports a cough with sputum production. He also states he is noncompliant with his Eliquis but has been taking this during his hospital stay and since discharge. He has bilateral lower extremity edema, left greater than right. During his recent hospitalization he was treated for a urinary tract infection and discharged with nitrofurantoin. Urine culture came back with rylee, possible contaminant. 2 - 18g IV on left uses urinal - alert and oriented edema LE uses cpap at night - respiratory has been down to see him got 900cc of IVF (stopped when BNP came back), vanc and apap 975mg
--- NOTE | 2025-04-20 01:56 | PC.NURSE ---
sent nurse admission report
[2025-04-20 04:00] VITALS: BP 136/71; PULSE 90; RESP 20; TEMP 36; O2SAT 94
[2025-04-20 04:01] LABS: Hepatitis A Antibody IgM 0.18 Index (0-0.79); ~Hepatitis A Antibody IgM Nonreactive (Nonreactive)
[2025-04-20 04:28] LABS: HBS Num1 1.20 mIU/mL (0-7.99); HBc Num1 0.37 S/CO (0.00-0.79); HBsAGNum1 0.36 S/CO (0.00-0.99); Hepatitis B Surface Antigen Negative (Negative); ~HepC Num1 0.13 S/CO (0.00-0.79); ~Hepatitis B Surface Antibody NONREACTIVE (Nonreactive); ~Hepatitis C Antibody Nonreactive (Nonreactive)
--- NOTE | 2025-04-20 05:36 | PC.NURSE ---
Pt to keep NPO pending swallow bedside per MOLLY Amezquitae
[2025-04-20 06:12] LABS: Glucose, Whole Blood 81 mg/dL (60-115)
--- NOTE | 2025-04-20 07:13 | P.PNIM_ITS ---
Subjective Subjective Date of Service: 04/20/25 Interval History: f/u on transient hypoxia and fever Physical Exam 2 Vital Signs: Vital Signs: Last Vital Signs Temp 96.8 F 04/20/25 04:00 Pulse 90 04/20/25 04:00 Resp 20 04/20/25 04:00 BP 136/71 04/20/25 04:00 Pulse Ox 94 04/20/25 04:00 O2 Del Method Room Air 04/20/25 04:00 BMI result Body Mass Index 39.7 Const: Other: General: AO X 3, no acute distress Resp: CTA bilateral CVS: S1,S2,RRR GI: +BS, NT, no distention Skin: No rash Neuro: motor grossly intact Psych: appropriate affect Objective Data Active Medications Acetaminophen (Acetaminophen 325 Mg Tablet) 650 mg PO Q6H PRN PRN Reason: Pain, Mild 1-3,fever,headache Apixaban (Apixaban 5 Mg Tablet) 5 mg PO BID [facility] Last Admin: 04/20/25 01:16 Dose: 5 mg Documented By: AZEB Calcium Carbonate (Calcium Carbonate 750 Mg Tab.Chew) 750 mg PO Q4H PRN PRN Reason: Heartburn Dextrose (Dextrose 50 % 25 Gm/50 Ml Syringe) 25 gm IVPUSH Q15M PRN; Protocol PRN Reason: per Hypoglycemia Standing Ord. Glucose (Glucose Gel 15 Gm Gel..Gram.) 15 gm PO Q15M PRN; Protocol PRN Reason: per Hypoglycemia Standing Ord. Piperacillin Sod/Tazobactam (Sod 3.375 gm/ Sodium Chloride) 50 mls @ 100 mls/hr IV Q6H [facility] Last Infusion: 04/20/25 05:56 Dose: Infused Documented By: MORE Insulin Human Lispro (Insulin Lispro 100 Unit/Ml 3 Ml Vial) 0 unit SUBCUT Q6H [facility]; Protocol Last Admin: 04/20/25 01:15 Dose: Not Given Documented By: AZEB Non-Admin Reason: No Insulin Coverage Magnesium Hydroxide (Milk Of Magnesia 30 Ml Oral.Susp) 30 ml PO DAILY PRN PRN Reason: Constipation Melatonin (Melatonin 3 Mg Tablet) 6 mg PO BEDTIME PRN PRN Reason: Insomnia Ondansetron HCl (Ondansetron Hcl 4 Mg/2 Ml Vial) 4 mg IVPUSH Q8H PRN PRN Reason: Nausea and Vomiting Oxycodone HCl (Oxycodone Hcl Immed Release 5 Mg Tablet) 5 mg PO Q6H PRN PRN Reason: Pain, Severe (Pain Scale 7-10) Pharmacy Consult (Consult Rx Vancomycin Dosing) 1 each MISCELLANE DAILY PRN PRN Reason: Consult order Sodium Chloride (0.9 % Sodium Chloride Flush 3 Ml Syringe) 3 ml IVFLUSH QSHIFT [facility] Tramadol HCl (Tramadol Hcl 50 Mg Tablet) 50 mg PO Q6H PRN PRN Reason: Pain, Moderate(Pain Scale 4-6) Labs 04/20/25 07:26 04/20/25 07:26 Labs: Laboratory Results - last 24 hr 04/19/25 04/19/25 04/19/25 21:17 21:18 21:29 MCV 88.0 MCH 28.9 MCHC 32.8 RDW 14.1 Plt Count 280 MPV 11.1 Immature Gran % (Auto) 0.5 H Neut % (Auto) 73.2 H Lymph % (Auto) 16.2 L [place] % (Auto) 9.2 Eos % (Auto) 0.5 Baso % (Auto) 0.4 Lymph # (Auto) 1.8 [place] # (Auto) 1.0 Eos # (Auto) 0.1 Baso # (Auto) 0.0 Abs Immat Gran (auto) 0.05 H Absolute Neuts (auto) 8.1 Absolute Nucleated RBC 0.000 Nucleated RBC % (auto) 0.0 PT 18.5 H INR 1.6 H Anion Gap 15 Estim Creat Clear Calc 82.2 Estimated GFR 57 POC Glucose Random Glucose 112 Lactic Acid 1.0 Calcium 9.1 Magnesium 1.9 Total Bilirubin 1.0 AST 199 H ALT 72 H Alkaline Phosphatase 316 H Troponin I High Sens NT-Pro-B Natriuret Pep 96746.8 H Total Protein 7.3 Albumin 3.0 L Procalcitonin 0.16 Urine Color Urine Appearance Urine pH Ur Specific [place] Urine Protein Urine Glucose (UA) Urine Ketones Urine Blood Urine Nitrite Ur Leukocyte Esterase Urine RBC Urine WBC Ur Squamous Epith Cells Urine Bacteria Hyaline Casts Hepatitis A IgM Ab Hep Bs Antigen Hep Bs Antibody Hep B Core Total Ab Hepatitis C Ab (EIA) Influenza Type A (PCR) NEGATIVE Influenza Type B (PCR) NEGATIVE RSV RNA Qual (PCR) NEGATIVE SARS-CoV-2 RNA (RT-PCR) NEGATIVE 10/24/25 10/25/25 10/25/25 22:49 00:01 00:05 MCV MCH MCHC RDW Plt Count MPV Immature Gran % (Auto) Neut % (Auto) Lymph % (Auto) [place] % (Auto) Eos % (Auto) Baso % (Auto) Lymph # (Auto) [place] # (Auto) Eos # (Auto) Baso # (Auto) Abs Immat Gran (auto) Absolute Neuts (auto) Absolute Nucleated RBC Nucleated RBC % (auto) PT INR Anion Gap Estim Creat Clear Calc Estimated GFR POC Glucose 113 Random Glucose Lactic Acid Calcium Magnesium Total Bilirubin AST ALT Alkaline Phosphatase Troponin I High Sens 4.2 NT-Pro-B Natriuret Pep Total Protein Albumin Procalcitonin Urine Color Dark Yellow Urine Appearance Clear Urine pH 8.0 Ur Specific [place] 1.020 Urine Protein 100 (2+) H Urine Glucose (UA) Negative Urine Ketones Negative Urine Blood Negative Urine Nitrite Negative Ur Leukocyte Esterase Trace H Urine RBC 0-2 Urine WBC 0-5 Ur Squamous Epith Cells 0-2 Urine Bacteria None Seen Hyaline Casts 0-2 Hepatitis A IgM Ab Nonreactive Hep Bs Antigen Negative Hep Bs Antibody NONREACTIVE Hep B Core Total Ab Nonreactive Hepatitis C Ab (EIA) Nonreactive Influenza Type A (PCR) Influenza Type B (PCR) RSV RNA Qual (PCR) SARS-CoV-2 RNA (RT-PCR) 04/20/25 06:07 MCV MCH MCHC RDW Plt Count MPV Immature Gran % (Auto) Neut % (Auto) Lymph % (Auto) [place] % (Auto) Eos % (Auto) Baso % (Auto) Lymph # (Auto) [place] # (Auto) Eos # (Auto) Baso # (Auto) Abs Immat Gran (auto) Absolute Neuts (auto) Absolute Nucleated RBC Nucleated RBC % (auto) PT INR Anion Gap Estim Creat Clear Calc Estimated GFR POC Glucose 81 Random Glucose Lactic Acid Calcium Magnesium Total Bilirubin AST ALT Alkaline Phosphatase Troponin I High Sens NT-Pro-B Natriuret Pep Total Protein Albumin Procalcitonin Urine Color Urine Appearance Urine pH Ur Specific [place] Urine Protein Urine Glucose (UA) Urine Ketones Urine Blood Urine Nitrite Ur Leukocyte Esterase Urine RBC Urine WBC Ur Squamous Epith Cells Urine Bacteria Hyaline Casts Hepatitis A IgM Ab Hep Bs Antigen Hep Bs Antibody Hep B Core Total Ab Hepatitis C Ab (EIA) Influenza Type A (PCR) Influenza Type B (PCR) RSV RNA Qual (PCR) SARS-CoV-2 RNA (RT-PCR) Assessment and Plan (1) SIRS (systemic inflammatory response syndrome): Status: Acute Plan Patient is a 65-year-old male with a past medical history significant for paroxysmal AFib, HTN, morbid obesity, HFrEF, type 2 diabetes, mood disorder, and recent admission for alcohol withdrawal and mechanical fall discharged earlier today to short-term rehab, who presented to the ED due to ?terrible conditions and did not want to stay there ?. He has febrile illness of unclear source, he meets SIRS criteria NOT sepsis criteri acute on chronic hypoxia, had 1 instance of O2 sat of 89%, now 94 on RA CXR negative for infiltrate, CT negative no PE Viral resp panel pending SIRS+ (tachypnea, tachycardia, febrile)--No identifiable source of infection CT, CXR no PNA. Resp panel pending. Empiric Zosyn and Vanco for now, wait on culture Chronic HFpEF, Bilateral lower extremity edema, left greater than right US of leg pending echo pending Transaminitis right upper quadrant ultrasound GI consult Paroxysmal AFib rate currently in low 100s, BP soft, holding metoprolol eliqius Type 2 diabetes hold metformin d/t contrast sliding scale insulin Morbid obesity weight loss advised HTN hold home meds, BP soft Mood disorder continue home meds MJ CPAP at bedtime Morbid obesity weight loss encouraged Med rec pending Full code VTE prophylaxis: Eliquis Patient with acute on chronic hypoxic respiratory failure, SIRS positive, source unknown, requiring admission for at least 2 midnight stay for further evaluation, IV antibiotics and monitoring. Quality Stroke Does the patient have a stroke diagnosis?: No VTE Prior VTE?: No VTE Risk Level:: Medical - moderate - high VTE Device Contraindication: Treatment Not Indicated VTE Drug Contraindication: N/A - Med Ordered
--- NOTE | 2025-04-20 07:33 | P.CNGI_ITS ---
History of Present Illness Data of Consult Service Date: 04/20/25 Requesting physician: Sandy Connell Primary Care Provider: Ortiz Deluca [facility] HPI Reason for consult: Elevated LFTs 65 YM with paroxysmal AFib, HTN, morbid obesity, HFrEF, type 2 diabetes, mood disorder, and recent admission for alcohol withdrawal and mechanical fall discharged earlier today to short-term rehab, presented to [facility] due to ?terrible conditions and did not want to stay there ?. The patient reported that the conditions were terrible, his mattress was on the floor with springs sticking out and smelled like urine, which was confirmed by EMS. Upon arrival to the ED the patient was febrile at 102.7, tachycardic, tachypneic and intermittently hypoxic. Pt complained of slight burning with urination and no other symptoms. He later reported a cough with sputum production. Patient denies known history of liver disease in the past. He denied nausea, vomiting, chest pain, shortness of breath, abdominal pain. Patient reports history of sleep apnea and uses a CPAP machine. Labs showed elevated LFTs with AST of 199, ALT of 72, alkaline phosphatase 316. He admitted to being noncompliant with his Eliquis but has been taking this during his hospital stay and since discharge. He has bilateral lower extremity edema, left greater than right. Pt was hospitalized at [facility] 04/13 to 04/19 after a mechanical fall. During hospitalization he was treated alcohol withdrawl and treated for a urinary tract infection and discharged with nitrofurantoin. Urine culture came back with staph, possible contaminant. Patient was admitted for management of sepsis of unclear etiology and started on vanco and zosyn. Patient admits to smoking 1 pack per day of cigarettes since age 16. He reports he started drinking at age 18 years and was taking 20 shots of hard liquor and beer daily. 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 He lives at home with his and a son FAMILY HISTORY: Patient denies known family history of liver disease, colon polyps or GI malignancy 04/19/25 ABD US SHOWED: 1. Hepatomegaly with coarse hepatic echotexture reflecting hepatic steatosis or diffuse hepatocellular disease. 2. Normal gallbladder. Review of Systems 2 Constitutional: Constitutional: Denies body ache(s), Reports chills, Denies fatigue, Reports fever(s) and Denies headache(s) Eyes: Eyes: Denies change in vision ENT: Denies headache(s), Denies nasal congestion and Denies sore throat Cardiovascular: Cardiovascular: Denies chest pain, Denies rapid heart rate, Reports leg edema, Denies lightheadedness and Denies dyspnea Respiratory: Respiratory: Reports chest congestion, Reports cough, Denies dyspnea and Denies wheezing Gastrointestinal: Gastrointestinal: Denies abdominal pain, Denies nausea and Denies vomiting Genitourinary: Genitourinary: Reports dysuria Musculoskeletal: Musculoskeletal: Denies myalgias Integumentary/Breasts: Skin/Breast: Denies rash Neurologic: Denies confusion and Denies headache(s) Psychiatric: Psychiatric: Denies confusion Endocrine: Endocrine: Denies fatigue Hematologic/Lymphatic: Hematologic/Lymphatic: Denies easy bleeding and Reports easy bruising Allergic/Immunologic: Allergic/Immunologic: Denies wheezing PMFSH Past Medical History Medical History MJ (obstructive sleep apnea) CHF (congestive heart failure) Alcohol use disorder, severe, dependence CHF (congestive heart failure) Effusion, right knee Screen for STD (sexually transmitted disease) Left ankle swelling Hypomagnesemia Diarrhea Acute UTI Physical exam Nocturia Microhematuria Elevated serum creatinine Morbid obesity Increased ammonia level Weakness of both lower extremities Dermatitis, unspecified History of cardiac arrest (~05/2020) Nicotine dependence, cigarettes, uncomplicated Personal history of colonic polyps Hypoventilation associated with obesity syndrome Encephalopathy chronic CKD (chronic kidney disease) stage 3, GFR 30-59 ml/min Cirrhosis Diabetes Obesity (BMI 35.0-39.9 without comorbidity) Wernicke encephalopathy Obstructive sleep apnea (adult) (pediatric) Rib fractures CHF (congestive heart failure) Left atrial enlargement Persistent atrial fibrillation Depression Gout Arthritis Anxiety HTN (hypertension) Family History Family History Father Lung cancer Mother No problems noted. Maternal Aunt History of heart attack Sister No problems noted. Brother Cancer of kidney Brother No problems noted. Brother No problems noted. Brother No problems noted. Brother No problems noted. Brother No problems noted. Other Substance use disorder Surgical History Surgical History History of tracheostomy (~2019) History of bronchoscopy (~2019) History of colonoscopy (~2021) History of esophagogastroduodenoscopy (EGD) (~2021) History of cardioversion (~2020) S/P percutaneous endoscopic gastrostomy (PEG) tube placement (~2019) Social History Social History Household Members: None Housing: House Do you presently have visiting nurse or other home services: No (pt refuses) Alcohol intake: current Alcohol intake frequency: 3 or more drinks per day Alcohol type: hard liquor Comment: pt refuses fall risk interventions and protocol Patient Tobacco Use Status: Current everyday Tobacco user Tobacco use type: Cigarette Cigarette Packs Per Day: 0.5 Cigarettes Per Day: 6 Years Smoked: 30+ e-Cigarette/Vaping Use: Never Used Advance Directives Date on File: 06/05/20 service: Yes Current occupational status: unemployed Cognitive needs: No Hearing needs: No Vision needs: No Meds Allergies Allergy/AdvReac Type Severity Reaction Status Date / Time No Known Allergies (No Known Allergy Verified 04/19/25 21:09 Allergies*) Active Medications: Current Medications Acetaminophen (Acetaminophen 325 Mg Tablet) 650 mg PO Q6H PRN PRN Reason: Pain, Mild 1-3,fever,headache Apixaban (Apixaban 5 Mg Tablet) 5 mg PO BID [facility] Last Admin: 04/20/25 01:16 Dose: 5 mg Calcium Carbonate (Calcium Carbonate 750 Mg Tab.Chew) 750 mg PO Q4H PRN PRN Reason: Heartburn Dextrose (Dextrose 50 % 25 Gm/50 Ml Syringe) 25 gm IVPUSH Q15M PRN; Protocol PRN Reason: per Hypoglycemia Standing Ord. Glucose (Glucose Gel 15 Gm Gel..Gram.) 15 gm PO Q15M PRN; Protocol PRN Reason: per Hypoglycemia Standing Ord. Piperacillin Sod/Tazobactam (Sod 3.375 gm/ Sodium Chloride) 50 mls @ 100 mls/hr IV Q6H [facility] Last Infusion: 04/20/25 05:56 Dose: Infused Vancomycin HCl 750 mg/ Sodium (Chloride) 265 mls @ 265 mls/hr IV Q8H [facility] Insulin Human Lispro (Insulin Lispro 100 Unit/Ml 3 Ml Vial) 0 unit SUBCUT Q6H [facility]; Protocol Last Admin: 04/20/25 06:30 Dose: Not Given Magnesium Hydroxide (Milk Of Magnesia 30 Ml Oral.Susp) 30 ml PO DAILY PRN PRN Reason: Constipation Melatonin (Melatonin 3 Mg Tablet) 6 mg PO BEDTIME PRN PRN Reason: Insomnia Ondansetron HCl (Ondansetron Hcl 4 Mg/2 Ml Vial) 4 mg IVPUSH Q8H PRN PRN Reason: Nausea and Vomiting Oxycodone HCl (Oxycodone Hcl Immed Release 5 Mg Tablet) 5 mg PO Q6H PRN PRN Reason: Pain, Severe (Pain Scale 7-10) Pharmacy Consult (Consult Rx Vancomycin Dosing) 1 each MISCELLANE DAILY PRN PRN Reason: Consult order Sodium Chloride (0.9 % Sodium Chloride Flush 3 Ml Syringe) [facility] Tramadol HCl (Tramadol Hcl 50 Mg Tablet) 50 mg PO Q6H PRN PRN Reason: Pain, Moderate(Pain Scale 4-6) Home Medications ?Medication ?Instructions ?Recorded ?Confirmed ?Last Taken ?Type cyclobenzaprine 10 mg tablet 10 mg PO TID PRN muscle s pasm 04/20/25 04/20/25 Unknown History Physical Exam 2 Vital Signs: Vital Signs: Last Vital Signs Temp 96.8 F 04/20/25 04:00 Pulse 90 04/20/25 04:00 Resp 20 04/20/25 04:00 BP 136/71 04/20/25 04:00 Pulse Ox 94 04/20/25 04:00 O2 Del Method Room Air 04/20/25 04:00 BMI result Body Mass Index 39.7 Const: General: ill appearing chronically; No confusion Nutritional Appearance: obese Orientation/consciousness: No confusion Limitations: no limitations HEENT: Head: Yes normal to inspection Ears: hearing grossly normal bilaterally Eyes: Sclerae: sclerae normal Pupils: Equal, round and reactive pupils present Neck: Neck: Yes normal visual inspection Chest: Chest palpation & inspection: normal inspection of the chest Resp: Effort & Inspection: normal respiratory effort Auscultation: clear to auscultation bilaterally Cardio: Palpation: normal PMI Rate: regular rate Rhythm: regular rhythm Heart sounds: S1 normal heart sound present, S2 normal heart sound present and no murmurs GI: Inspection: Yes obesity Palpation (GI): Soft to palpation, nontender and No hepatosplenomegaly present Auscultation: normal bowel sounds Rectal Exam - Male: Yes deferred Skin: General skin exam: no rashes or lesions noted Neuro: General: No confusion Cranial nerves: Yes Equal, round and reactive pupils present Extrem: General: Yes pedal edema (1+ pitting edema Lt > Rt) Psych: Appearance: grossly normal Mental Status: mental status grossly normal Results Labs 04/20/25 07:26 04/20/25 07:26 Labs: Short CBC 04/19/25 Range/Units 21:18 WBC 11.1 H (4.8-10.8) X10*3/uL Hgb 11.1 L (14.0-18.0) g/dl Hct 33.8 L (42.0-52.0) % Plt Count 280 (160-400) X10*3/uL BMP 04/19/25 21:18 Sodium 133 L Potassium 4.9 Chloride 96 Carbon Dioxide 27 BUN 20 H Creatinine 1.28 Calcium 9.1 Liver Function 04/19/25 Range/Units 21:18 Total Bilirubin 1.0 (0.0-1.0) mg/dL AST 199 H (5-37) U/L ALT 72 H (0-40) U/L Alkaline Phosphatase 316 H (39-117) U/L Albumin 3.0 L (3.5-5.0) g/dL Urine 04/19/25 Range/Units 22:49 Urine Color Dark Yellow Urine Appearance Clear Urine pH 8.0 (5.0-9.0) Ur Specific [place] 1.020 (1.005-1.025) Urine Protein 100 (2+) H (Neg-Trace) mg/dL Urine Glucose (UA) Negative (Negative) mg/dL Assessment and Plan (1) Elevated LFTs: Status: Acute Plan 65 YM with paroxysmal AFib, HTN, morbid obesity, HFrEF, type 2 diabetes, mood disorder, and recent admission for alcohol withdrawal and mechanical fall discharged earlier today to short-term rehab, presented to [facility] due to ?terrible conditions and did not want to stay there ?. Upon arrival to the ED the patient was febrile at 102.7, tachycardic, tachypneic and intermittently hypoxic. Labs showed elevated LFTs with AST of 199, ALT of 72, alkaline phosphatase 316. Elevated LFTs are likely a combination of METALD (ETOH abuse and obesity) and sepsis and expected to improve with treatment of sepsis with IV antibiotics FU LFTs today show improvement from yesterday RECOMMENDATIONS: 1. Agree with IV antibiotics 2. Check hep A, B and C serologies and AMA with am labs - order placed 3. Pt advised to quit drinking - he stated he is trying to cut back on ETOH use. Procedures Date of Service Date of Service: 04/20/25
[2025-04-20 07:36] LABS: MANUAL DIFF FLAG NO
[2025-04-20 07:39] LABS: Hematocrit 33.5 % (42.0-52.0); Hemoglobin 10.6 g/dl (14.0-18.0); Imm Gran Abs Auto 0.03 X10*3/uL (0.00-0.03); Imm Gran Pct Auto 0.3 % (0.0-0.4); Lymphocytes Absolute Auto 1.3 X10*3/uL (1.2-4.9); Mean Corpuscular HGB Conc 31.6 g/dl (31.0-36.0); Mean Corpuscular Hemoglobin 28.0 pg (27.0-33.0); Mean Corpuscular Volume 88.4 fL (80.0-98.0); NRBC Abs Auto 0.000 X10*3/uL (0.0-0.012); NRBC Pct Auto 0.0 /100WBC (0.0-0.2); Platelet Count 248 X10*3/uL (160-400); Red Blood Count 3.79 X10*6/uL (4.60-5.80); White Blood Count 9.0 X10*3/uL (4.8-10.8)
[2025-04-20 07:51] LABS: Creatinine Clr Calc Pharmacy 88.4; Estimated Glomerular Filt Rate > 60
[2025-04-20 07:55] LABS: Alanine Aminotransferase 58 U/L (0-40); Albumin Level 2.9 g/dL (3.5-5.0); Alkaline Phosphatase 289 U/L (39-117); Anion Gap 13 (12-20); Aspartate Amino Transferase 143 U/L (5-37); Blood Urea Nitrogen 14 mg/dL (9-16); Calcium 9.1 mg/dL (8.4-10.2); Carbon Dioxide 26 mmol/L (22-29); Chloride 99 mmol/L (96-108); Creatinine Clr Calc Pharmacy 86.9; Estimated Glomerular Filt Rate > 60; Potassium 4.0 mmol/L (3.3-5.1); Sodium 134 mmol/L (135-145); Total Protein 7.1 g/dL (6.5-8.0)
--- NOTE | 2025-04-20 08:29 | PHA.MEDREC ---
Addendum entered by Stephanie [facility] 04/20/25 08:59: pt had holds on those meds but hold was taken off. Addendum entered by Stephanie [facility] 04/20/25 08:58: reviewed by [facility]. Original Note: Pharmacy Consult ? Medication Reconciliation Pharmacy has completed the medication reconciliation. Confirmed medication list against pharmacy claims and with patient. Patient was given Eliquis by nurse this morning at 8. Patient is not taking Amlodipine, Fluoxetine, Furosemide, and Lisinopril during hospital stay.
--- NOTE | 2025-04-20 08:42 | PHA.PROG ---
Admission Date/Time: April 19, 2025 23:36 Indication: Sepsis Weight in k.9 kg Adjusted body weight in Kg: [place] body weight in Kg: Obesity Dosing Indication % IBW: BMI 39.7 Serum Creatinine - Last 168 Hours 04/19/25 04/20/25 04/20/25 21:18 07: 07: Creatinine 1.28 1.21 1.19 Estimated CrCl and GFR - Last 168 Hours 04/19/25 04/20/25 04/20/25 21:18 07:26 07:26 Estim Creat Clear Calc 82.2 86.9 88.4 Estimated GFR 57 > 60 04/20/25 07:26 Estim Creat Clear Calc Estimated GFR > 60 Vancomycin Loading Dose: 2000mg X1 Current Vancomycin Dosing Regimen: 750mg Q8H Vancomycin Monitoring using AUC goal of 400 - 600 range with trough as surrogate marker: 511 Date and Time for next Vancomycin Level to be drawn: 04/21 @0600 Pharmacist Comments on Vancomycin Plan: Pt's renal coming down slowly, BMI elevated, starting off more aggressive per indication and body weight. Predicted trough 18.6, to be adjusted after trough on 04/21. Vancomycin dosing will take advantage of [employer] as a clinical decision support tool that uses Bayesian modeling to calculate individual patient's pharmacokinetic parameters and forecast the patient's drug concentration time course with the target goal AUC 24 range of 400 - 600 mg/L/hr.
[2025-04-20 09:54] LABS: Chlamydia pneumoniae PCR Not Detected (Not Detect.); Coronavirus 229E PCR Not Detected (Not Detect.); Coronavirus HKU1 PCR Not Detected (Not Detect.); Coronavirus NL63 PCR Not Detected (Not Detect.); Coronavirus OC43 PCR Not Detected (Not Detect.); RSV PCR Not Detected (Not Detect.); Rhino/Enterovirus PCR Not Detected (Not Detect.)
--- NOTE | 2025-04-20 10:00 | CA_ITS ---
Transthoracic Echocardiogram Patient (Last, First, Middle): Esteban Galindo F Gender: Male Date of : 1960 Age: 65 Procedure Date: 04/20/2025 Procedure Type: Transthoracic Echocardiogram Location: S3E Height: 182.88 cm Weight: 132.45 kg BSA: 2.50 m2 Heart Rate: bpm BP: 136 / 71 mmHg Chucking Machine Operator: MONTSE Referring MD: Sandy Connell PA-C Residential Care Officer: Liborio Smith MD Symptoms: CHF Study Quality: Adequate W contrast ECG Rhythm: Atrial Fibrillation w RVR Conclusions: - 1. Normal LV ejection fraction of 60 65% 2. Moderately reduced RV systolic function 3. At least mildly dilated left atrium 4. Mild aortic stenosis 5. At least mildly dilated ascending aorta at 4 cm 6. [id number] elevation right ventricular systolic pressure is significantly elevated right atrial pressures Findings Procedure Information Contrast agent, definity, is being given per protocol without apparent complications. The quality of the study was technically difficult. The study quality is limited by patients body habitus. Left Ventricle Normal left ventricular size, thickness, and systolic function. The visually estimated ejection fraction is between 60-65%. Diastolic function is indeterminate on the basis of available data. Right Ventricle Normal right ventricular cavity size. There is moderately decreased right ventricular systolic function. Atria The left atrium is mildly dilated. Interatrial shunt cannot be excluded. The right atrium was not well visualized. Aortic Valve The aortic valve was not well visualized. There is mild calcification of the aortic valve. There is mild aortic valve stenosis. The peak aortic gradient is 26 mmHg.The mean gradient is 14 mmHg. There is no aortic valve regurgitation. Mitral Valve There is mild anterior and posterior mitral leaflet thickening. There is mild anterior and mild posterior mitral annular calcification. There is mild mitral annular calcification. There is trace mitral valve regurgitation. There is no mitral valve stenosis. Pulmonic Valve The pulmonic valve was not well visualized. Tricuspid Valve Likely normal tricuspid valve structure and function. There is mild tricuspid valve regurgitation. Significantly elevated right atrial pressure. Mild to moderate pulmonary hypertension is present. Great Vessels The aorta was not well visualized. The pulmonary artery was not well visualized. There is mild dilatation of the ascending aorta measuring 4.00 cm. Venous The inferior vena cava is moderately dilated and does not collapse with inspiration. Pericardium/Pleural The pericardium was not well visualized. Measurements 2D Linear Measurements IVSd: 1.14 0.6-0.9/0.6-1.0 cm LVIDd: 5.46 3.9-5.3/4.2-5.9 cm LVIDd Index: 2.18 2.4-3.2/2.2-3.1 cm/m2 LVIDs: 3.55 2.0-3.6 cm LVPWd: 0.90 0.7-1.1 cm LA Diam: 4.90 2.7-3.8/3.0-4.0 cm LAIDs Index: 1.96 1.5-2.3 cm/m2 LV Mass: 268.77 67-162/88-224 g LV Mass Index: 107.51 43-95/49-115 g/m2 LVOT Diam: 2.30 3.0+(-)1.3 cm 2D Systolic Function EF 4C: 65.50 >55% EF 2C: 64.50 >55% EF BiP: 65.70 >55% Mitral Valve MV Pk E: 1.25 E'Lateral: 8.45 E'Medial: 10.20 E/E' Med: 12.30 E/E' Lat: 14.80 Aortic Valve AoV Pk Yuval: 2.53 AoV Mn Yuval: 1.75 AoV VTI: 0.40 AoV Pk Grad: 26.00 Aov Mn Grad: 14.00 STONE Cont.VTI: 2.34 LVOT LVOT Pk Yuval: 1.26 LVOT Mn Yuval: 0.89 LVOT VTI: 0.22 LVOT Pk Grad: 6.00 LVOT Mn Grad: 4.00 LVOT Diam: 2.30 LVOT Area: 4.15 Diastolic Function MV Pk E: 1.25 E'Medial: 10.20 E/E' Med: 12.30 E' Laterial: 8.45 E/E' Lat: 14.80 Right Ventricle TAPSE (mm): 11.60 Tricuspid Valve TR Pk Yuval: 2.85 TR Pk Grad: 32.00 RA Press: 15.00 RVSP: 47.00 Great Vessels Aorta Sinus of Valsalva: 3.30 2.0-3.5 cm Ao Asc: 4.00 2.1-3.4 cm Pulmonary Valve PV Pk Yuval: 0.95 Peak PV Grad: 4.00 Updated in Other Vendor System with Status of Final Liborio Smith MD electronically signed on 04/21/2025 12:17:25 PM with status of Final
[2025-04-20 10:12] LABS: Influenza A H1 PCR Not Detected (Not Detect.); Influenza A H1-2009 PCR Not Detected (Not Detect.); Influenza A H3 PCR Not Detected (Not Detect.); SARS-CoV-2 PCR Not Detected (Not Detect.)
[2025-04-20 11:08] LABS: Glucose, Whole Blood 80 mg/dL (60-115)
--- NOTE | 2025-04-20 15:42 | MHC.CM.PN ---
IMM 04/20/25, EMR REVIEWED, [facility], PT REPORTS HE WILL NOT RETURN D/T HORRIBLE CONDITIONS , UPON RETURN PT ADMITTED FEBRILE/SIRS/UTI. PT REPORTS HE LIVES W/, USES A [facility] FOR DME AND IF HE CAN HE WOULD LIKE TO RETURN HOME W/SERVICES, IF NOT HE PREFERS [facility] OR [facility]. PCP/HCP ON FILE VERIFIED. DP: PENDING PT EVAL.
[2025-04-20 16:00] VITALS: BP 144/79; PULSE 101; RESP 19; TEMP 36.9; O2SAT 96
[2025-04-20] MEDS: 0.9 % Sodium Chloride Flush 3 ML SYRINGE IVFLUSH ×2 (18:01→20:47)
[2025-04-20 18:21] LABS: Glucose, Whole Blood 126 mg/dL (60-115)
[2025-04-20 20:00] VITALS: BP 139/66; PULSE 113; RESP 20; TEMP 37.3; O2SAT 98
[2025-04-20 20:52] VITALS: PULSE 102
[2025-04-21 03:45] VITALS: BP 157/81; PULSE 97; RESP 18; TEMP 36.3; O2SAT 93
[2025-04-21 06:02] LABS: Glucose, Whole Blood 120 mg/dL (60-115)
[2025-04-21 06:23] LABS: MANUAL DIFF FLAG NO
[2025-04-21 06:27] LABS: Hematocrit 33.5 % (42.0-52.0); Hemoglobin 10.8 g/dl (14.0-18.0); Imm Gran Abs Auto 0.06 X10*3/uL (0.00-0.03); Imm Gran Pct Auto 0.6 % (0.0-0.4); Lymphocytes Absolute Auto 1.3 X10*3/uL (1.2-4.9); Mean Corpuscular HGB Conc 32.2 g/dl (31.0-36.0); Mean Corpuscular Hemoglobin 28.6 pg (27.0-33.0); Mean Corpuscular Volume 88.9 fL (80.0-98.0); NRBC Abs Auto 0.000 X10*3/uL (0.0-0.012); NRBC Pct Auto 0.0 /100WBC (0.0-0.2); Platelet Count 273 X10*3/uL (160-400); Red Blood Count 3.77 X10*6/uL (4.60-5.80); White Blood Count 10.5 X10*3/uL (4.8-10.8)
[2025-04-21 06:41] LABS: Alanine Aminotransferase 52 U/L (0-40); Albumin Level 3.0 g/dL (3.5-5.0); Alkaline Phosphatase 276 U/L (39-117); Anion Gap 13 (12-20); Aspartate Amino Transferase 118 U/L (5-37); Blood Urea Nitrogen 13 mg/dL (9-16); Calcium 9.4 mg/dL (8.4-10.2); Carbon Dioxide 28 mmol/L (22-29); Chloride 98 mmol/L (96-108); Creatinine Clr Calc Pharmacy 89.9; Estimated Glomerular Filt Rate > 60; Potassium 4.3 mmol/L (3.3-5.1); Sodium 135 mmol/L (135-145); Total Protein 7.4 g/dL (6.5-8.0)
[2025-04-21 07:01] VITALS: BP 150/62; PULSE 78; RESP 18; TEMP 36.6; O2SAT 95
--- NOTE | 2025-04-21 07:34 | HE.PHANOTE ---
[facility] Patients level came back this morning at 22.5. Patients indication is sepsis. level returned supratherapeutic; however, the time required to achieve a therapeutic concentration was significantly shorter, indicating an overall favorable outcome for patients indication of sepsis. Will continue to monitor renal function. Changed dose to 1000 mg Q12H and pushed back dose by 4 hours to allow level to come down. Next level to be drawn 04/21 @1000 to ensure safety vs efficacy.
[2025-04-21] MEDS: 0.9 % Sodium Chloride Flush 3 ML SYRINGE IVFLUSH ×3 (08:12→20:17)
--- NOTE | 2025-04-21 09:33 | HO.PM.IMPN ---
Subjective Subjective Date of Service: 04/21/25 Interval History: Feels better, no hypoxia Physical Exam Vital Signs: Vital Signs: Last Vital Signs Temp 98 F 04/21/25 07:01 Pulse 78 04/21/25 07:01 Resp 18 04/21/25 07:01 BP 150/62 H 04/21/25 07:01 Pulse Ox 95 04/21/25 07:01 O2 Del Method Room Air 04/21/25 07:01 BMI result Body Mass Index 39.7 Const: Other: General: AO X 3, no acute distress Resp: CTA bilateral CVS: S1,S2,RRR GI: +BS, NT, no distention Skin: No rash Neuro: motor grossly intact Psych: appropriate affect Objective Data Active Medications Acetaminophen (Acetaminophen 325 Mg Tablet) 650 mg PO Q6H PRN PRN Reason: Pain, Mild 1-3,fever,headache Apixaban (Apixaban 5 Mg Tablet) 5 mg PO BID [facility] Last Admin: 04/21/25 08:12 Dose: 5 mg Documented By: DIMITRIS Calcium Carbonate (Calcium Carbonate 750 Mg Tab.Chew) 750 mg PO Q4H PRN PRN Reason: Heartburn Dextrose (Dextrose 50 % 25 Gm/50 Ml Syringe) 25 gm IVPUSH Q15M PRN; Protocol PRN Reason: per Hypoglycemia Standing Ord. Glucose (Glucose Gel 15 Gm Gel..Gram.) 15 gm PO Q15M PRN; Protocol PRN Reason: per Hypoglycemia Standing Ord. Piperacillin Sod/Tazobactam (Sod 3.375 gm/ Sodium Chloride) 50 mls @ 100 mls/hr IV Q6H [facility] Last Infusion: 04/21/25 06:28 Dose: Infused Documented By: ADRIANA Vancomycin HCl 1,000 mg/ (Sodium Chloride) 270 mls @ 270 mls/hr IV Q12H [facility] Insulin Human Lispro (Insulin Lispro 100 Unit/Ml 3 Ml Vial) 0 unit SUBCUT Q6H [facility]; Protocol Last Admin: 04/21/25 06:03 Dose: Not Given Documented By: ADRIANA Non-Admin Reason: No Insulin Coverage Magnesium Hydroxide (Milk Of Magnesia 30 Ml Oral.Susp) 30 ml PO DAILY PRN PRN Reason: Constipation Melatonin (Melatonin 3 Mg Tablet) 6 mg PO BEDTIME PRN PRN Reason: Insomnia Ondansetron HCl (Ondansetron Hcl 4 Mg/2 Ml Vial) 4 mg IVPUSH Q8H PRN PRN Reason: Nausea and Vomiting Oxycodone HCl (Oxycodone Hcl Immed Release 5 Mg Tablet) 5 mg PO Q6H PRN PRN Reason: Pain, Severe (Pain Scale 7-10) Pharmacy Consult (Consult Rx Vancomycin Dosing) 1 each MISCELLANE DAILY PRN PRN Reason: Consult order Sodium Chloride (0.9 % Sodium Chloride Flush 3 Ml Syringe) 3 ml IVFLUSH QSHIFT [facility] Last Admin: 04/21/25 08:12 Dose: 3 ml Documented By: DIMITRIS Tramadol HCl (Tramadol Hcl 50 Mg Tablet) 50 mg PO Q6H PRN PRN Reason: Pain, Moderate(Pain Scale 4-6) Labs 04/21/25 06:06 04/21/25 06:06 Labs: Laboratory Results - last 24 hr 04/20/25 04/20/25 04/20/25 00:12 11:02 18:16 MCV MCH MCHC RDW Plt Count MPV Immature Gran % (Auto) Neut % (Auto) Lymph % (Auto) [place] % (Auto) Eos % (Auto) Baso % (Auto) Lymph # (Auto) [place] # (Auto) Eos # (Auto) Baso # (Auto) Abs Immat Gran (auto) Absolute Neuts (auto) Absolute Nucleated RBC Nucleated RBC % (auto) Anion Gap Estim Creat Clear Calc Estimated GFR POC Glucose 80 126 H Random Glucose Calcium Total Bilirubin AST ALT Alkaline Phosphatase Total Protein Albumin Random Vancomycin Respiratory Panel Alonso See Note Adenovirus (Rapid PCR) Not Detected B.pert (TEM-PCR) Not Detected B.parapertussis DNA PCR Not Detected C. pneumoniae DNA (PCR) Not Detected Coronavirus OC43 (PCR) Not Detected Coronavirus HKU1 (PCR) Not Detected Coronavirus 229E (PCR) Not Detected Coronavirus NL63 (PCR) Not Detected Human Metapneumovir PCR Not Detected Influenza A (RT-PCR) Not Detected Influenza A (H1) PCR Not Detected Influ A (H1/09) PCR Not Detected Influenza A (H3) PCR Not Detected Influenza B (RT-PCR) Not Detected M. pneumoniae (PCR) Not Detected Parainfluenza 1 (PCR) Not Detected Parainfluenza 2 (PCR) Not Detected Parainfluenza 3 (PCR) Not Detected Parainfluenza 4 (PCR) Not Detected RSV (PCR) Not Detected Entero/Rhino (PCR) Not Detected SARS-CoV-2 RNA (RT-PCR) Not Detected 04/21/25 04/21/25 04/21/25 05:57 06:06 06:07 MCV 88.9 MCH 28.6 MCHC 32.2 RDW 13.9 Plt Count 273 MPV 10.6 Immature Gran % (Auto) 0.6 H Neut % (Auto) 77.8 H Lymph % (Auto) 12.0 L [place] % (Auto) 8.0 Eos % (Auto) 0.9 Baso % (Auto) 0.7 Lymph # (Auto) 1.3 [place] # (Auto) 0.8 Eos # (Auto) 0.1 Baso # (Auto) 0.1 Abs Immat Gran (auto) 0.06 H Absolute Neuts (auto) 8.1 Absolute Nucleated RBC 0.000 Nucleated RBC % (auto) 0.0 Anion Gap 13 Estim Creat Clear Calc 89.9 Estimated GFR > 60 POC Glucose 120 H Random Glucose 113 Calcium 9.4 Total Bilirubin 0.8 AST 118 H ALT 52 H Alkaline Phosphatase 276 H Total Protein 7.4 Albumin 3.0 L Random Vancomycin 22.5 H Respiratory Panel Alonso Adenovirus (Rapid PCR) B.pert (TEM-PCR) B.parapertussis DNA PCR C. pneumoniae DNA (PCR) Coronavirus OC43 (PCR) Coronavirus HKU1 (PCR) Coronavirus 229E (PCR) Coronavirus NL63 (PCR) Human Metapneumovir PCR Influenza A (RT-PCR) Influenza A (H1) PCR Influ A (H1/09) PCR Influenza A (H3) PCR Influenza B (RT-PCR) M. pneumoniae (PCR) Parainfluenza 1 (PCR) Parainfluenza 2 (PCR) Parainfluenza 3 (PCR) Parainfluenza 4 (PCR) RSV (PCR) Entero/Rhino (PCR) SARS-CoV-2 RNA (RT-PCR) Microbiology Microbiology Results: Microbiology 04/19/25 21:29 Blood Culture - Preliminary Blood - Venous No growth after 24 hours. 04/19/25 21:18 Blood Culture - Preliminary Blood - Venous No growth after 24 hours. Assessment and Plan (1) SIRS (systemic inflammatory response syndrome): Status: Acute Plan Patient is a 65-year-old male with a past medical history significant for paroxysmal AFib, HTN, morbid obesity, HFrEF, type 2 diabetes, mood disorder, and recent admission for alcohol withdrawal and mechanical fall discharged earlier today to short-term rehab, who presented to the ED due to ?terrible conditions and did not want to stay there ?. He has febrile illness of unclear source, he meets SIRS criteria NOT sepsis criteri Acute on chronic hypoxia, had 1 instance of O2 sat of 89%, now 94 on RA CXR negative for infiltrate, CT negative no PE Viral resp panel negative SIRS+ (tachypnea, tachycardia, febrile)--No identifiable source of infection CT, CXR no PNA. Resp panel negative. Stop Abx and observe Chronic HFpEF, Bilateral lower extremity edema, left greater than right US of leg pending echo pending Transaminitis, trending down Hep serology pending right upper quadrant ultrasound GI consult Paroxysmal AFib rate currently in low 100s, BP soft, holding metoprolol eliqius Type 2 diabetes hold metformin d/t contrast sliding scale insulin Morbid obesity weight loss advised HTN hold home meds, BP soft Mood disorder continue home meds MJ CPAP at bedtime Morbid obesity weight loss encouraged Med rec pending Full code VTE prophylaxis: Eliquis Patient with acute on chronic hypoxic respiratory failure, SIRS positive, source unknown, requiring admission for at least 2 midnight stay for further evaluation, IV antibiotics and monitoring. Quality Stroke Does the patient have a stroke diagnosis?: No VTE Prior VTE?: No VTE Risk Level:: Medical - moderate - high VTE Device Contraindication: Treatment Not Indicated VTE Drug Contraindication: N/A - Med Ordered
[2025-04-21 11:21] LABS: Glucose, Whole Blood 122 mg/dL (60-115)
[2025-04-21 16:00] VITALS: BP 139/93; PULSE 105; RESP 18; TEMP 37.1; O2SAT 96
[2025-04-21 16:25] LABS: Glucose, Whole Blood 135 mg/dL (60-115)
[2025-04-21 17:55] LABS: Glucose, Whole Blood 95 mg/dL (60-115)
[2025-04-21 19:44] VITALS: BP 128/64; PULSE 106; RESP 16; TEMP 36.9; O2SAT 94
[2025-04-22 00:02] LABS: Glucose, Whole Blood 100 mg/dL (60-115)
[2025-04-22] MEDS: oxyCODONE HCl Immed Release 5 MG TABLET PO ×4 (03:11→21:21)
[2025-04-22 04:00] VITALS: BP 133/84; PULSE 113; RESP 16; TEMP 35.9; O2SAT 97
[2025-04-22 06:01] LABS: Glucose, Whole Blood 116 mg/dL (60-115)
[2025-04-22 06:12] LABS: MANUAL DIFF FLAG NO
[2025-04-22 06:25] LABS: Hematocrit 38.6 % (42.0-52.0); Hemoglobin 11.9 g/dl (14.0-18.0); Imm Gran Abs Auto 0.05 X10*3/uL (0.00-0.03); Imm Gran Pct Auto 0.5 % (0.0-0.4); Lymphocytes Absolute Auto 1.3 X10*3/uL (1.2-4.9); Mean Corpuscular HGB Conc 30.8 g/dl (31.0-36.0); Mean Corpuscular Hemoglobin 27.7 pg (27.0-33.0); Mean Corpuscular Volume 89.8 fL (80.0-98.0); NRBC Abs Auto 0.000 X10*3/uL (0.0-0.012); NRBC Pct Auto 0.0 /100WBC (0.0-0.2); Platelet Count 314 X10*3/uL (160-400); Red Blood Count 4.30 X10*6/uL (4.60-5.80); White Blood Count 10.4 X10*3/uL (4.8-10.8)
[2025-04-22 06:41] LABS: Alanine Aminotransferase 47 U/L (0-40); Albumin Level 3.0 g/dL (3.5-5.0); Alkaline Phosphatase 284 U/L (39-117); Anion Gap 15 (12-20); Aspartate Amino Transferase 94 U/L (5-37); Blood Urea Nitrogen 12 mg/dL (9-16); Calcium 9.4 mg/dL (8.4-10.2); Carbon Dioxide 27 mmol/L (22-29); Chloride 95 mmol/L (96-108); Creatinine Clr Calc Pharmacy 109.6; Estimated Glomerular Filt Rate > 60; Potassium 4.0 mmol/L (3.3-5.1); Sodium 133 mmol/L (135-145); Total Protein 7.6 g/dL (6.5-8.0)
[2025-04-22 07:33] VITALS: BP 145/85; PULSE 105; RESP 18; TEMP 36.5; O2SAT 92
[2025-04-22] MEDS: Nicotine 14 MG PATCH.TD24 TRANSDERMA (08:50)
--- NOTE | 2025-04-22 10:14 | HO.PM.IMPN ---
Subjective Subjective Date of Service: 04/22/25 Interval History: Feels better, no hypoxia Physical Exam Vital Signs: Vital Signs: Last Vital Signs Temp 97.7 F 04/22/25 07:33 Pulse 105 H 04/22/25 07:33 Resp 18 04/22/25 07:33 BP 145/85 H 04/22/25 07:33 Pulse Ox 92 04/22/25 07:33 O2 Del Method Room Air 04/22/25 07:33 BMI result Body Mass Index 39.7 Const: Other: General: AO X 3, no acute distress Resp: CTA bilateral CVS: S1,S2,RRR GI: +BS, NT, no distention Skin: No rash Neuro: motor grossly intact Psych: appropriate affect Objective Data Active Medications Acetaminophen (Acetaminophen 325 Mg Tablet) 650 mg PO Q6H PRN PRN Reason: Pain, Mild 1-3,fever,headache Last Admin: 04/21/25 20:17 Dose: 650 mg Documented By: TANIA Albuterol Sulfate (Albuterol Sulfate 90 Mcg 8 Gm Inhaler) 2 puff INHALE QID PRN PRN Reason: Wheezing Amlodipine Besylate (Amlodipine Besylate 5 Mg Tablet) 5 mg PO DAILY [facility]; Protocol Last Admin: 04/22/25 08:52 Dose: 5 mg Documented By: JUVENAL Apixaban (Apixaban 5 Mg Tablet) 5 mg PO BID [facility] Last Admin: 04/22/25 08:50 Dose: 5 mg Documented By: JUVENAL Atorvastatin Calcium (Atorvastatin Calcium 80 Mg Tablet) 80 mg PO DAILY [facility] Last Admin: 04/22/25 08:51 Dose: 80 mg Documented By: JUVENAL Calcium Carbonate (Calcium Carbonate 750 Mg Tab.Chew) 750 mg PO Q4H PRN PRN Reason: Heartburn Cyclobenzaprine HCl (Cyclobenzaprine Hcl 10 Mg Tablet) 10 mg PO TID PRN PRN Reason: Muscle Spasm Dextrose (Dextrose 50 % 25 Gm/50 Ml Syringe) 25 gm IVPUSH Q15M PRN; Protocol PRN Reason: per Hypoglycemia Standing Ord. Fluoxetine HCl (Fluoxetine Hcl 20 Mg Capsule) 40 mg PO DAILY [facility] Last Admin: 04/22/25 08:51 Dose: 40 mg Documented By: JUVENAL Folic Acid (Folic Acid 1 Mg Tablet) 1 mg PO DAILY [facility] Last Admin: 04/22/25 08:51 Dose: 1 mg Documented By: JUVENAL Furosemide (Furosemide 20 Mg Tablet) 30 mg PO DAILY [facility]; Protocol Last Admin: 04/22/25 08:51 Dose: 30 mg Documented By: JUVENAL Glucose (Glucose Gel 15 Gm Gel..Gram.) 15 gm PO Q15M PRN; Protocol PRN Reason: per Hypoglycemia Standing Ord. Insulin Human Lispro (Insulin Lispro 100 Unit/Ml 3 Ml Vial) 0 unit SUBCUT Q6H [facility]; Protocol Last Admin: 04/22/25 06:11 Dose: Not Given Documented By: JUVENAL Non-Admin Reason: No Insulin Coverage Lisinopril (Lisinopril 2.5 Mg Tablet) 2.5 mg PO DAILY [facility]; Protocol Last Admin: 04/22/25 08:51 Dose: 2.5 mg Documented By: JUVENAL Magnesium Hydroxide (Milk Of Magnesia 30 Ml Oral.Susp) 30 ml PO DAILY PRN PRN Reason: Constipation Melatonin (Melatonin 3 Mg Tablet) 6 mg PO BEDTIME PRN PRN Reason: Insomnia Last Admin: 04/21/25 20:16 Dose: 6 mg Documented By: TANIA Metformin HCl (Metformin Hcl 850 Mg Tablet) 850 mg PO DAILY [facility] Metoprolol Tartrate (Metoprolol Tartrate 50 Mg Tablet) 50 mg PO BID [facility]; Protocol Last Admin: 04/22/25 08:52 Dose: 50 mg Documented By: JUVENAL Omeprazole (Omeprazole 40 Mg Capsule.Dr) 40 mg PO DAILY@0630 [facility] Last Admin: 04/22/25 08:50 Dose: 40 mg Documented By: JUVENAL Ondansetron HCl (Ondansetron Hcl 4 Mg/2 Ml Vial) 4 mg IVPUSH Q8H PRN PRN Reason: Nausea and Vomiting Oxycodone HCl (Oxycodone Hcl Immed Release 5 Mg Tablet) 5 mg PO Q6H PRN PRN Reason: Pain, Severe (Pain Scale 7-10) Last Admin: 04/22/25 08:50 Dose: 5 mg Documented By: JUVENAL Sodium Chloride (0.9 % Sodium Chloride Flush 3 Ml Syringe) 3 ml IVFLUSH QSHIFT [facility] Last Admin: 04/22/25 06:12 Dose: Not Given Documented By: JUVENAL Non-Admin Reason: Previously Administered Tramadol HCl (Tramadol Hcl 50 Mg Tablet) 50 mg PO Q6H PRN PRN Reason: Pain, Moderate(Pain Scale 4-6) Last Admin: 04/21/25 15:48 Dose: 50 mg Documented By: DIMITRIS Labs 04/22/25 05:47 04/22/25 05:47 Labs: Laboratory Results - last 24 hr 04/21/25 04/21/25 04/21/25 11:10 16:21 17:51 MCV MCH MCHC RDW Plt Count MPV Immature Gran % (Auto) Neut % (Auto) Lymph % (Auto) [place] % (Auto) Eos % (Auto) Baso % (Auto) Lymph # (Auto) [place] # (Auto) Eos # (Auto) Baso # (Auto) Abs Immat Gran (auto) Absolute Neuts (auto) Absolute Nucleated RBC Nucleated RBC % (auto) Anion Gap Estim Creat Clear Calc Estimated GFR POC Glucose 122 H 135 H 95 Random Glucose Calcium Total Bilirubin AST ALT Alkaline Phosphatase Total Protein Albumin 04/21/25 04/22/25 04/22/25 23:58 05:47 05:56 MCV 89.8 MCH 27.7 MCHC 30.8 L RDW 14.0 Plt Count 314 MPV 11.0 Immature Gran % (Auto) 0.5 H Neut % (Auto) 77.6 H Lymph % (Auto) 12.6 L [place] % (Auto) 7.9 Eos % (Auto) 0.8 Baso % (Auto) 0.6 Lymph # (Auto) 1.3 [place] # (Auto) 0.8 Eos # (Auto) 0.1 Baso # (Auto) 0.1 Abs Immat Gran (auto) 0.05 H Absolute Neuts (auto) 8.1 Absolute Nucleated RBC 0.000 Nucleated RBC % (auto) 0.0 Anion Gap 15 Estim Creat Clear Calc 109.6 Estimated GFR > 60 POC Glucose 100 116 H Random Glucose 118 H Calcium 9.4 Total Bilirubin 0.9 AST 94 H ALT 47 H Alkaline Phosphatase 284 H Total Protein 7.6 Albumin 3.0 L Microbiology Microbiology Results: Microbiology 04/19/25 21:29 Blood Culture - Preliminary Blood - Venous No growth after 48 hours. 04/19/25 21:18 Blood Culture - Preliminary Blood - Venous No growth after 48 hours. Assessment and Plan (1) SIRS (systemic inflammatory response syndrome): Status: Acute Plan Patient is a 65-year-old male with a past medical history significant for paroxysmal AFib, HTN, morbid obesity, HFrEF, type 2 diabetes, mood disorder, and recent admission for alcohol withdrawal and mechanical fall discharged earlier today to short-term rehab, who presented to the ED due to ?terrible conditions and did not want to stay there ?. He has febrile illness of unclear source, he meets SIRS criteria NOT sepsis criteri Acute on chronic hypoxia, had 1 instance of O2 sat of 89%, now 94 on RA CXR negative for infiltrate, CT negative no PE Viral resp panel negative SIRS+ (tachypnea, tachycardia, febrile)--No identifiable source of infection CT, CXR no PNA. Resp panel negative. No indication for Abx at this time Chronic HFpEF, Bilateral lower extremity edema, left greater than right US of leg no DVT echo pending Transaminitis, trending down Hep serology pending right upper quadrant ultrasound GI consult Paroxysmal AFib rate currently in low 100s, BP soft, holding metoprolol eliqius Type 2 diabetes Metformin sliding scale insulin diabetic diet Morbid obesity weight loss advised HTN continue metoprolol and lisinipril Mood disorder continue home meds MJ CPAP at bedtime Morbid obesity weight loss encouraged Full code VTE prophylaxis: Eliquis Patient with acute on chronic hypoxic respiratory failure, SIRS positive, source unknown, requiring admission for at least 2 midnight stay for further evaluation, IV antibiotics and monitoring. Needs placement again Quality Stroke Does the patient have a stroke diagnosis?: No VTE Prior VTE?: No VTE Risk Level:: Medical - moderate - high VTE Device Contraindication: Treatment Not Indicated VTE Drug Contraindication: N/A - Med Ordered
--- NOTE | 2025-04-22 10:37 | MHC.CM.PN ---
Addendum entered by Elana Diaz 04/22/25 11:11: [facility] AND [facility] HAVE DECLINED REFERRAL STATING THEY ARE UNABLE TO ACCOMMODATE DUE TO BEHAVIORAL ISSUES DURING HIS LAST STAY AT [facility]. REFERRAL EXPANDED Original Note: CM MET WITH PT TO DISCUSS DCP PT REPORTS HE IS UNSURE IF HE WANTS TO GO HOME WITH [facility] OR TO STR HE SAYS IF HE NEEDS STR, HE WOULD LIKE [facility] OR [facility] HIS MOTHER IS AT [place] AND HE HAS BEEN TO [facility] IN THE PAST HE WOULD PREFER [facility] IF HE IS ABLE TO GO HOME DC TBD PENDING PT SALLYAL
[2025-04-22 12:12] LABS: Glucose, Whole Blood 102 mg/dL (60-115)
--- NOTE | 2025-04-22 14:13 | MHC.SLORD ---
Speech Language Pathology Order Status: RN consulted. Pt has been tolerating regular consistency/thin liquid diet as ordered, no need for clinical bedside swallow evaluation at this time. MD notified.
[2025-04-22] MEDS: 0.9 % Sodium Chloride Flush 3 ML SYRINGE IVFLUSH ×2 (15:00→19:37)
[2025-04-22 15:21] VITALS: BP 116/77; PULSE 100; RESP 18; TEMP 36.3; O2SAT 95
--- NOTE | 2025-04-22 15:21 | MHC.CM.PN ---
per rounds pt not ready for dc new bed search in place
[2025-04-22 16:26] LABS: Glucose, Whole Blood 123 mg/dL (60-115)
[2025-04-22 19:29] VITALS: BP 132/70; PULSE 102; RESP 18; TEMP 36.2; O2SAT 93
[2025-04-22 20:10] LABS: Glucose, Whole Blood 137 mg/dL (60-115)
[2025-04-22 22:44] VITALS: RESP 18
[2025-04-23 03:22] VITALS: BP 105/57; PULSE 87; RESP 16; TEMP 36; O2SAT 95
[2025-04-23 08:00] VITALS: BP 129/73; PULSE 87; RESP 15; TEMP 36.6; O2SAT 92
[2025-04-23 08:34] LABS: Glucose, Whole Blood 114 mg/dL (60-115)
[2025-04-23] MEDS: 0.9 % Sodium Chloride Flush 3 ML SYRINGE IVFLUSH (08:35)
[2025-04-23] MEDS: oxyCODONE HCl Immed Release 5 MG TABLET PO (08:50)
[2025-04-23 11:39] LABS: Glucose, Whole Blood 112 mg/dL (60-115)
[2025-04-23 11:39] LABS: Glucose, Whole Blood 38 mg/dL (60-115)
--- NOTE | 2025-04-23 11:53 | MHC.CM.PN ---
pt is dcd today at 3 to [facility]
--- NOTE | 2025-04-23 11:56 | MHC.CM.PN ---
t/m left for devyn at [phone]
[2025-04-23 12:04] LABS: Glucose, Whole Blood 128 mg/dL (60-115)
--- NOTE | 2025-04-23 13:19 | PM.DS ---
DS: Providers Provider Date of Service: 04/23/25 Date of admission: 04/19/25 23:36 Date of discharge: 04/23/25 Primary care physician: SEAMUS MckoyP- Consults: 04/19/25 23:52 Consult to Gastroenterology Routine Consulting Provider: Bebeto Garcia Reason for consultation: elevated LFTs Has provider been notified: No DS: Diagnosis Discharge Diagnosis (1) SIRS (systemic inflammatory response syndrome): Status: Acute DS: Summary Hospital Course Hospital Course: 65-year-old male with a past medical history significant for paroxysmal AFib, HTN, morbid obesity, HFrEF, type 2 diabetes, mood disorder, and recent admission for alcohol withdrawal and mechanical fall discharged earlier today to short-term rehab, who presented to the ED due to ?terrible conditions and did not want to stay there ?. The patient reported that the conditions were terrible, his mattress was on the floor with springs sticking out and smelled like urine, which was confirmed by EMS. Upon arrival to the ED the patient was febrile at 102.7, tachycardic, tachypneic and intermittently hypoxic. He reports he is asymptomatic aside from some slight burning with urination. He denies any nausea, vomiting, chest pain, shortness of breath, abdominal pain. He later reports a cough with sputum production. He also states he is noncompliant with his Eliquis but has been taking this during his hospital stay and since discharge. He has bilateral lower extremity edema, left greater than right. During his recent hospitalization he was treated for a urinary tract infection and discharged with nitrofurantoin. Urine culture came back with staph, possible contaminant. Hospital Course Patient was admitted to general medical floor where he remained afebrile. Blood and urine cultures were unremarkable. He was seen by Physical therapy and deemed still a candidate for rehab as he did not complete his initial stay. At this point in time he is medically acceptable for discharge to short-term rehab Time Attestation Discharge Coordination Time (in mins): 35 Quality: Safe Use of Opioids Does Pt have an Active Cancer Diagnosis on the Problem List?: No Quality: Stroke Does the patient have a stroke diagnosis?: No Physical Exam Vital Signs: Vital Signs: Last Vital Signs Temp 97.9 F 04/23/25 08:00 Pulse 87 04/23/25 08:00 Resp 15 10/28/25 08:00 BP 129/73 04/23/25 08:00 Pulse Ox 92 04/23/25 08:00 O2 Del Method Room Air 04/23/25 08:00 BMI result Body Mass Index 39.7 Const: Other: Awake alert no acute distress Resp: Other: Clear to auscultation bilaterally no rales rhonchi or wheezes Cardio: Other: No S4; positive S1-S2; no S3 murmurs rubs or gallops GI: Other: Soft nontender nondistended normoactive bowel sounds Extrem: Other: No edema bilaterally DS: Data Data Completed and Pending Completed studies during hospitalization [Text1]: Procedures Assistance with Respiratory Ventilation, Less than 24 Consecutive Hours, Continuous Positive Airway Pressure (05/10/24) Bypass Trachea to Cutaneous with Tracheostomy Device, Percutaneous Approach (05/30/20) Change Tracheostomy Device in Trachea, External Approach (05/30/20) Detoxification Services for Substance Abuse Treatment (05/10/24) Drainage of Left Lower Lung Lobe, Via Natural or Artificial Opening Endoscopic, Diagnostic (05/30/20) Insertion of Endotracheal Airway into Trachea, Via Natural or Artificial Opening (05/30/20) Insertion of Feeding Device into Stomach, Percutaneous Approach (05/30/20) Insertion of Infusion Device into Right Atrium, Percutaneous Approach (05/30/20) Insertion of Infusion Device into Superior Vena Cava, Percutaneous Approach (05/30/20) Introduction of Vasopressor into Peripheral Vein, Percutaneous Approach (05/10/24) Performance of Cardiac Output, Single, Manual (05/30/20) Performance of Urinary Filtration, Intermittent, Less than 6 Hours Per Day (05/30/20) Respiratory Ventilation, Greater than 96 Consecutive Hours (05/30/20) Ultrasonography of Superior Vena Cava, Guidance (05/30/20) Labs on day of discharge: Laboratory Results - last 24 hr 04/22/25 04/22/25 04/23/25 16:22 20:07 07:32 POC Glucose 123 H 137 H 114 04/23/25 04/23/25 04/23/25 11:30 11:34 12:00 POC Glucose 38 L* 112 128 H Preliminary micro results at discharge 04/19/25 21:29 Blood Culture - Preliminary Blood - Venous No growth after 48 hours. 04/19/25 21:18 Blood Culture - Preliminary Blood - Venous No growth after 48 hours. Discharge Plan Discharge Anticipated Discharge Date/Time: 04/23/25 13:15 Patient Disposition: Xfer SNF Discharge Diagnosis: Frequent falls Referrals: [facility] [Other] - 1 Week Ortiz Deluca FNP- [Primary Care Provider, Internal Medicine] - 1 Week Discharge Medications: New oxycodone 5 mg Tablet 5 mg PO Q6H PRN (Reason: Pain, Severe (Pain Scale 7-10)) Qty: 30 0RF Rx Instructions: Partial Fill upon patient request. Continued (DME) blood-glucose meter [FreeStyle Lite Meter] Kit See Rx Instructions .ROUTE .MEDSUPPLY Qty: 1 0RF Rx Instructions: check sugar twice a day (DME) lancets [FreeStyle Lancets] 28 gauge misc See Rx Instructions .ROUTE .MEDSUPPLY Qty: 100 2RF Rx Instructions: check sugar twice a day (DME) FreeStyle David 2 [place] Misc See Rx Instructions .Route Qty: 1 0RF Rx Instructions: tid testing (DME) FreeStyle David 2 Sensor Kit See Rx Instructions .Route Qty: 1 3RF Rx Instructions: tid testing amlodipine 5 mg tablet 5 mg PO DAILY Qty: 90 1RF acetaminophen [Tylenol Arthritis Pain] 650 mg tablet extended release 650 mg PO Q12H PRN (Reason: pain) 30 Days Qty: 60 0RF metoprolol tartrate 50 mg tablet 50 mg PO BID Qty: 180 1RF Eliquis 5 mg tablet 5 mg PO BID Qty: 180 1RF rosuvastatin 20 mg tablet 20 mg PO DAILY Qty: 90 1RF Rx Instructions: increased dose folic acid 1 mg tablet 1 mg PO DAILY Qty: 90 1RF metformin 850 mg tablet 850 mg PO DAILY Qty: 90 1RF albuterol sulfate 90 mcg/actuation HFA aerosol inhaler 2 puff inhalation QID PRN (Reason: Wheezing) Qty: 8.5 3RF furosemide 20 mg tablet 30 mg PO DAILY Qty: 135 1RF omeprazole 20 mg capsule,delayed release(DR/EC) 40 mg PO DAILY@0630 Qty: 180 1RF lisinopril 2.5 mg tablet 2.5 mg PO DAILY Qty: 90 1RF fluoxetine 40 mg capsule 40 mg PO DAILY Qty: 90 0RF cyclobenzaprine 10 mg tablet 10 mg PO TID PRN (Reason: muscle spasm) Discharge Orders: Discharge Order (Routine); Ordered 04/23/25 Ordered By: Blayne Pena Diet: Advance to usual diet Activity on Discharge: As above Stand Alone Forms: Patient Portal Discharge page Print Language: Eritrean Care Plan Goals: Continue all meds as outlined on transfer summary Health Concerns: Med compliance Plan of Treatment: As per receiving facility Assessment: denis
[2025-04-23 15:04] VITALS: BP 102/51; PULSE 92; RESP 20; TEMP 36.6; O2SAT 94
== END 2025-04-23 15:34 | disposition skilled nursing facility (03) | DRG 864 ==
LOC: HO.ED 21:50 → HO.EDOVER 23:38 → HO.S3 04-20 01:21
PROVIDERS: Internal Medicine; Internal Medicine Gastroenterology; Admitting Provider Physician Assistant; Emergency Provider Emergency Medicine; PCP Nurse Practitioner Family; Visit Provider Hospitalist
DX: R50.9 Fever, unspecified (principal); J96.21 Acute and chronic respiratory failure with hypoxia; R65.10 Systemic inflammatory response syndrome (SIRS) of non-infectious origin without acute organ dysfunction; I50.22 Chronic systolic (congestive) heart failure; Z71.6 Tobacco abuse counseling; F17.210 Nicotine dependence, cigarettes, uncomplicated; I11.0 Hypertensive heart disease with heart failure; I48.0 Paroxysmal atrial fibrillation; F39 Unspecified mood [affective] disorder; F10.20 Alcohol dependence, uncomplicated; E66.01 Morbid (severe) obesity due to excess calories; Z68.39 Body mass index [BMI] 39.0-39.9, adult; Z71.3 Dietary counseling and surveillance; G47.33 Obstructive sleep apnea (adult) (pediatric); Z20.822 Contact with and (suspected) exposure to COVID-19; Z79.01 Long term (current) use of anticoagulants; Z79.84 Long term (current) use of oral hypoglycemic drugs; Z79.899 Other long term (current) drug therapy
CPT/HCPCS: 36415; 71045; 71275; 76705; 80053; 80202; 81001; 81003; 82565; 82947; 83605; 83735; 83880; 84145; 84484; 85025; 85610; 86381; 86704; 86706; 86709; 86803; 87040; 87340; 87633; 87637; 93005; 93306; 93970; 94660; 97162; 99285; J2543; J3373; J3374; Q9957; Q9967

== ENCOUNTER 2025-04-19 23:36 | Outpatient (BNV) | payer MEDICARE, OTHER, MEDICAID, SELFPAY | END 2025-04-20 00:01 | PROVIDERS: Admitting Provider Physician Assistant; Emergency Provider Emergency Medicine; PCP Nurse Practitioner Family; Visit Provider Radiology Diagnostic Radiology | DX: R09.02 Hypoxemia (principal); R00.0 Tachycardia, unspecified | CPT/HCPCS: 71275 ==

== ENCOUNTER 2025-04-19 23:36 | Outpatient (BNV) | payer MEDICARE, OTHER, MEDICAID, SELFPAY | END 2025-04-20 10:00 | PROVIDERS: Admitting Provider Physician Assistant; Emergency Provider Emergency Medicine; PCP Nurse Practitioner Family; Visit Provider Internal Medicine Cardiovascular Disease | DX: I51.7 Cardiomegaly (principal); I35.0 Nonrheumatic aortic (valve) stenosis; I77.810 Thoracic aortic ectasia | CPT/HCPCS: 93306 ==

== ENCOUNTER → 2025-04-19 23:36 | Outpatient (BNV) | payer MEDICARE, OTHER, MEDICAID, SELFPAY | PROVIDERS: Admitting Provider Physician Assistant; Emergency Provider Emergency Medicine; PCP Nurse Practitioner Family; Visit Provider Internal Medicine Cardiovascular Disease | DX: I48.91 Unspecified atrial fibrillation (principal) | CPT/HCPCS: 93010 ==

== ENCOUNTER → 2025-04-19 23:36 | Outpatient (BNV) | payer MEDICARE, OTHER, MEDICAID, SELFPAY | PROVIDERS: Admitting Provider Physician Assistant; Emergency Provider Emergency Medicine; PCP Nurse Practitioner Family; Visit Provider Internal Medicine | DX: R65.10 Systemic inflammatory response syndrome (SIRS) of non-infectious origin without acute organ dysfunction (principal) | CPT/HCPCS: 99232 ==

== ENCOUNTER → 2025-04-19 23:36 | Outpatient (BNV) | payer MEDICARE, OTHER, MEDICAID, SELFPAY | PROVIDERS: Admitting Provider Physician Assistant; Emergency Provider Emergency Medicine; PCP Nurse Practitioner Family; Visit Provider Internal Medicine Gastroenterology | DX: R79.89 Other specified abnormal findings of blood chemistry (principal) | CPT/HCPCS: 99222 ==

== ENCOUNTER 2025-04-28 01:15 | Emergency (ER) | payer MEDICARE, OTHER, MEDICAID, SELFPAY ==
[2025-04-28] VITALS (17 sets, daily range): BP systolic 95–140; BP diastolic 56–90; PULSE 70–112; RESP 14–19; TEMP 36.1–37.2; O2SAT 90–98; BMI 39.6
--- NOTE | ~2025-04-28 | CT_ITS ---
CLINICAL HISTORY: trauma CT head without contrast Comparison: CT/REG - CT HEAD/BRAIN WO IV CON - 04/13/25 08:32 EDT Findings: Motion artifact degrades some of the provided images. No intra-axial mass, midline shift, hydrocephalus, or acute hemorrhage. Nonspecific white matter hypodensity is present with mild volume loss. Mucous retention cyst is in the left maxillary sinus. The orbits are unremarkable. No skull fracture. IMPRESSION: 1. Motion limited head CT with no acute intracranial findings. This document has been electronically signed by: Abner Schwab MD, PHD on 04/28/2025 03:27:11
--- NOTE | ~2025-04-28 | CT_ITS ---
CLINICAL HISTORY: trauma CT chest without contrast Comparison: CT/REG/SR - CT ANGIO CHEST PE PROTOCOL - 04/20/25 00:39 EDT Findings: The heart is normal size. The visualized thyroid and mediastinum are unremarkable. Paraseptal emphysematous changes are visible in the lung apices. Mild dependent changes in the lung bases with linear basilar pleural-parenchymal scarring or subsegmental atelectasis, [id number]-right. Atherosclerotic vascular calcifications are present. Healed left anterior 5th rib fracture noted. IMPRESSION: 1. Paraseptal emphysema. No acute abnormality. This document has been electronically signed by: Abner Schwab MD, PHD on 04/28/2025 03:40:18
--- NOTE | ~2025-04-28 | CT_ITS ---
CLINICAL HISTORY: trauma CT of the left knee without IV contrast. Comparison: None provided Findings: The bones are osteopenic. Osseous alignment is satisfactory. Tricompartmental osteoarthritic changes are moderate, more severe in the medial femorotibial compartment. Trace joint effusion. Moderate prepatellar edema is noted. There is thickening of the distal patellar tendon, patellar tendinosis. Soft tissue calcification is noted in the subcutaneous fat of the anterior lower extremity. Atherosclerotic vascular calcifications are present. Regional musculature is moderately atrophic. Small Jones's cyst noted in the popliteal fossa. Impression: Prepatellar soft tissue thickening and tendinotic thickening of the inferior patellar tendon. Osteopenia No fracture identified. This document has been electronically signed by: Abner Schwab MD, PHD on 04/28/2025 03:40:00
--- NOTE | ~2025-04-28 | CT_ITS ---
CLINICAL HISTORY: trauma CT cervical spine without contrast Comparison: CT/SR - CT CERVICAL SPINE WO IV CON - 04/13/25 08:32 EDT Findings: There is straightening of the normal cervical lordosis. Moderate multilevel degenerative changes are present. No acute fractures or dislocations. Visualized intracranial contents are unremarkable. Soft tissues of the neck are normal. No consolidation or effusion at the lung apices. Internal carotid arteries are medialized with atherosclerotic vascular calcification. IMPRESSION: No acute findings. This document has been electronically signed by: Abner Schwab MD, PHD on 04/28/2025 03:29:25
--- NOTE | ~2025-04-28 | CT_ITS ---
CLINICAL HISTORY: trauma CT pelvis without contrast Comparison: CT/REG/SR - CT ABDOMEN PELVIS W IV CON - 04/13/25 08:39 EDT Findings: Included intrapelvic organs without acute abnormality. There is no acute soft tissue abnormality. Included lower lumbar spine is intact. Degenerative changes are noted. No acute pelvic bone fractures are noted or dislocation. There no joint effusion. There is a chronic posttraumatic deformity in the right upper acetabular region. Early degenerative changes in the bilateral hip joints. IMPRESSION: No acute fracture or dislocation. This document has been electronically signed by: Adam Allen MD on 04/28/2025 03:40:42
--- OUTSIDE RECORDS SUMMARY | 2025-04-28 02:21 | XMS_ITS | Clinical Summary ---
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 Role Phone Jasbir Morocho [...] 05/30/2022 Depression Screening 06/27/2024 COVID-19 Vaccine ( season) 2025 10/13/2020 Influenza Vaccine (#1) 2025 [...] mmol/L LAB CHEMISTRY METHOD 06/12/2024 9:[address] [facility] Potassium 4.5 3.5 - 5.5 mmol/L LAB CHEMISTRY METHOD 06/12/2024 9:[address] [facility] Chloride 100 96 - 110 mmol/L LAB CHEMISTRY METHOD 06/12/2024 9:[address] [facility] CO2 32 21 - 32 mmol/L LAB CHEMISTRY METHOD 06/12/2024 9:[address] [facility] Anion Gap 7 3 - 11 LAB CHEMISTRY METHOD 06/12/2024 9:[address] [facility] Glucose 92 70 - 100 mg/dL LAB CHEMISTRY METHOD 06/12/2024 9:[address] [facility] BUN 27(H) 5 - 25 mg/dL LAB CHEMISTRY METHOD 06/12/2024 9:[address] [facility] Creatinine 1.65(H) 0.70 - 1.30 mg/dL LAB CHEMISTRY METHOD 06/12/2024 9:04 AM EST [facility] eGFR 46(L) >=60 mL/min/1. 73m2 LAB CHEMISTRY METHOD 06/12/2024 9:04 AM EST [facility] Comment:Calculation based on the Chronic Kidney Disease Epidemiology Collaboration (CKD-EPI) equation refit without adjustment for race. 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
--- OUTSIDE RECORDS SUMMARY | 2025-04-28 02:21 | XMS_ITS | Encounter Summary ---
Author Organization [facility] Address [address] [place] [address] Care Team Providers Care Inspector Ball Points Name Role Phone Jasbir Morocho MD Primary Care Provider + [phone] Encounter Details Date Type Department Care Team (Late st Contact Info) Description 05/21/2024 Lab Requisition [facility] - Main Lab [address] [facility] [place] [address] Jasbir Morocho MD [address] [place] [address] Other longitudinal float operator (current) drug therapy; Unspecified cirrhosis of liver [...] disease, unspecified Unspecified atrial fibrillation (CMS/HCC) Other fdc (current) drug therapy HEMOGLOBIN A1C Routine 05/21/2024 6:42 AM EST Unspecified cirrhosis of liver (CMS/HCC) Unspecified dementia, unspecified severity, without behavioral disturbance, psychotic disturbance, mood disturbance, and anxiety (CMS/HCC) Chronic kidney disease, unspecified Unspecified atrial fibrillation (CMS/HCC) Other longitudinal float operator (current) drug therapy BASIC METABOLIC PANEL Routine 05/21/2024 6:42 AM EST Unspecified cirrhosis of liver (CMS/HCC) Unspecified dementia, unspecified severity, without behavioral disturbance, psychotic disturbance, mood disturbance, and anxiety (CMS/HCC) Chronic kidney disease, unspecified Unspecified atrial fibrillation (CMS/HCC) Other longitudinal float operator (current) drug therapy documented in this encounter Results * Hemoglobin A1c (05/21/2024 6:42 AM EST) Pathologist [facility] Hemoglobin A1C 5.9 <6.5 % LAB CHEMISTRY METHOD 05/21/2024 12:30 PM EST [facility] Mean Bld Glu Estim. 123 mg/dL LAB CHEMISTRY METHOD 05/21/2024 12:30 PM EST [facility] Blood Venous blood specimen / Unknown Venipuncture / Unknown 05/21/2024 6:42 AM EST 05/21/2024 9:50 AM EST us Jasbir Morocho MD LAB BLOOD ORDERABLES Final R esult [facility] [address] [place] [address], * (ABNORMAL) Basic metabolic panel (05/21/2024 6:42 AM EST) Pathologist [facility] Sodium 138 133 - 145 mmol/L LAB CHEMISTRY METHOD 05/21/2024 10:23 AM EST [facility] Potassium 4.3 3.5 - 5.5 mmol/L LAB CHEMISTRY METHOD 05/21/2024 10:23 AM EST [facility] Chloride 100 96 - 110 mmol/L LAB CHEMISTRY METHOD 05/21/2024 10:23 AM EST [facility] CO2 31 21 - 32 [...] MD LAB BLOOD ORDERABLES Final R esult [facility] [address] [place] [address], * (ABNORMAL) Complete blood count (05/21/2024 6:42 [...] MD LAB BLOOD ORDERABLES Final R esult [facility] ([facility] HOSPITAL LAB [address] [place] [address], documented in this encounter Visit Diagnoses Diagnosis Other longitudinal float operator (current) drug therapy Unspecified cirrhosis of liver ([facility] V24, [facility] V28) Unspecified dementia, unspecified severity, without behavioral disturbance, psychotic disturbance, mood disturbance, and anxiety ([facility] V24, [facility] V28) Chronic kidney disease, unspecified Unspecified atrial fibrillation ([facility] V24, [facility] V28) documented in this encounter Care Teams Inspector Ball Points Relationship Specialty Start Date End Date Jasbir Morocho MD [address] [place] [address] PCP - General Family Medicine 05/22/24 documented as of this encounter
--- OUTSIDE RECORDS SUMMARY | 2025-04-28 02:21 | XMS_ITS | Encounter Summary ---
Author Organization [employer] Address [address] [place] [address] Care Team Providers Care Muck Hauler Name Role Phone Jasbir Morocho MD Primary Care Provider [phone] Encounter Details Date Type Department Care Team (Latest Contact Info) Description 05/29/2024 Lab Requisition [facility] - Main Lab [address] [place] [address] Jasbir Morocho MD [address] [place] [address] Acute kidney failure, unspecified (CMS/HCC V24); Hepatic [...] LAB CHEMISTRY METHOD 05/29/2024 2:59 PM EST [facility] ([facility]) [facility] Blood Venous blood specimen / Unknown 05/29/2024 10:49 AM EST 05/29/2024 2:40 PM EST us Jasbir Morocho MD LAB BLOOD ORDERABLES Final R esult [facility] ([facility]) HOSPITAL LAB [address] [place] [address], documented in this encounter Visit Diagnoses Diagnosis Acute kidney failure, unspecified (CMS/HCC V24) Acute kidney failure, unspecified Hepatic encephalopathy (CMS/HCC V24, CMS/HCC V28) Hepatic encephalopathy Essential (primary) hypertension Unspecified essential hypertension documented in this encounter Care Teams Muck Hauler Relationship Specialty Start Date End Date Jasbir Morocho MD [address] [place] [address] PCP - General Family Medicine 05/22/24 documented as of this encounter
--- OUTSIDE RECORDS SUMMARY | 2025-04-28 02:21 | XMS_ITS | Encounter Summary ---
Author Organization [employer] Address [address] [place] [address] Care Team Providers Care Audio Recording Engineer Name Role Phone Jasbir Morocho MD Primary Care Provider [phone] Encounter Details Date Type Department Care Team (Latest Contact Info) Description 06/11/2024 Lab Requisition [facility] - Main Lab [address] [place] [address] Jasbir Morocho MD [address] [place] [address] Hepatic encephalopathy (CMS/HCC V24, CMS/HCC V28); Essential [...] LAB CHEMISTRY METHOD 06/12/2024 8:57 AM EST [facility] ([facility]) [facility] Blood Venous blood specimen / Unknown Venipuncture / Unknown 06/12/2024 7:15 AM EST 06/12/2024 8:35 AM EST us Jasbir Morocho MD LAB BLOOD ORDERABLES Final R esult [facility] [address] [place] [address], [place] [phone] * (ABNORMAL) Basic metabolic panel (06/12/2024 7:15 AM EST) Sodium 139 133 - 145 mmol/L LAB CHEMISTRY METHOD 06/12/2024 9:04 AM [facility] Potassium 4.5 3.5 - 5.5 mmol/L LAB CHEMISTRY METHOD 06/12/2024 9:04 AM [facility] Chloride 100 96 - 110 mmol/L LAB CHEMISTRY METHOD 06/12/2024 9:04 AM [facility] CO2 32 21 - 32 mmol/L LAB CHEMISTRY METHOD 06/12/2024 9:04 AM [facility] Anion Gap 7 3 - 11 LAB CHEMISTRY METHOD 06/12/2024 9:04 AM [facility] Glucose 92 70 - 100 mg/dL LAB CHEMISTRY METHOD 06/12/2024 9:04 AM [facility] BUN 27(H) 5 - 25 mg/dL LAB CHEMISTRY METHOD 06/12/2024 9:04 AM [facility] Creatinine 1.65(H) 0.70 - 1.30 mg/dL LAB CHEMISTRY METHOD 06/12/2024 9:04 AM [facility] eGFR 46(L) >=60 mL/min/1. 73m2 LAB CHEMISTRY METHOD 06/12/2024 9:04 AM [facility] Comment:Calculation based on the Chronic Kidney Disease Epidemiology Collaboration (CKD-EPI) equation refit without adjustment for race. BUN/Creatinine Ratio 16.4 LAB CHEMISTRY METHOD 06/12/2024 9:04 AM [facility] Calcium 9.9 8.5 - 10.5 mg/dL LAB CHEMISTRY METHOD 06/12/2024 9:04 AM [facility] Blood Venous blood specimen / Unknown Venipuncture / Unknown 06/12/2024 7:15 AM EST 06/12/2024 8:35 AM EST us Jasbir Morocho MD LAB BLOOD ORDERABLES Final R esult [facility] [address] [place] [address], * (ABNORMAL) Complete blood count (06/12/2024 7:15 AM EST) WBC 11.3(H) 4.8 - 10.8 K/mcL LAB HEMETOLOGY METHOD 06/12/2024 8:51 AM [facility] RBC 4.40(L) 4.50 - 5.50 M/[facility] LAB HEMETOLOGY METHOD 06/12/2024 8:51 AM [facility] Hemoglobin 12.7(L) 13.5 - 17.5 g/dL LAB HEMETOLOGY METHOD 06/12/2024 8:51 AM [facility] Hematocrit 41.2(L) 42.0 - 54.0 % LAB HEMETOLOGY METHOD 06/12/2024 8:51 AM [facility] MCV 94.5 79.0 - 98.0 FL LAB HEMETOLOGY METHOD 06/12/2024 8:51 AM [facility] MCH 29.1 27.0 - 32.0 pcg LAB HEMETOLOGY METHOD 06/12/2024 8:51 AM [facility] MCHC 30.8(L) 32.0 - 37.0 g/dL LAB HEMETOLOGY METHOD 06/12/2024 8:51 AM [facility] RDW 14.4 11.0 - 15.0 % LAB HEMETOLOGY METHOD 06/12/2024 8:51 AM EST [facility] Platelets 224 130 - 400 K/mcL LAB HEMETOLOGY METHOD 06/12/2024 8:51 AM [facility] MPV 11.3(H) 7.0 - 11.0 FL LAB HEMETOLOGY METHOD 06/12/2024 8:51 AM EST [facility] NRBC 0.0 <1.0 % LAB HEMETOLOGY METHOD 06/12/2024 8:51 AM EST [facility] NRBC Absolute 0.00 <0.10 K/mcL LAB HEMETOLOGY METHOD 06/12/2024 8:51 AM EST [facility] Blood Venous blood specimen / Unknown Venipuncture / Unknown 06/12/2024 7:15 AM EST 06/12/2024 8:35 AM EST us Jasbir Morocho MD LAB BLOOD ORDERABLES Final R esult [facility] [address] [place] [address], documented in this encounter Visit Diagnoses Diagnosis Hepatic encephalopathy (CMS/HCC V24, CMS/HCC V28) Hepatic encephalopathy Essential (primary) hypertension Unspecified essential hypertension documented in this encounter Care Teams Audio Recording Engineer Relationship Specialty Start Date End Date Jasbir Morocho MD [address] [place] [address] PCP - General Family Medicine 05/22/24 documented as of this encounter
--- OUTSIDE RECORDS SUMMARY | 2025-04-28 02:21 | XMS_ITS | Encounter Summary ---
Author Organization [employer] Address [address] [place] [address] Care Team Providers Care Playground Equipment Erector Name Role Phone Jasbir Morocho MD Primary Care Provider + [phone] Encounter Details Date Type Department Care Team (Late st Contact Info) Description 05/22/2024 Lab Requisition [facility] - Main Lab [address] [place] [address] Jasbir Morocho MD [address] [place] [address] Essential (primary) hypertension Social History Tobacco Use [...] LAB CHEMISTRY METHOD 05/22/2024 8:[address] [facility] Potassium 3.9 3.5 - 5.5 mmol/L LAB CHEMISTRY METHOD 05/22/2024 8:[address] [facility] Chloride 99 96 - 110 mmol/L LAB CHEMISTRY METHOD 05/22/2024 8:[address] [facility] CO2 32 21 - 32 mmol/L LAB CHEMISTRY METHOD 05/22/2024 8:52 AM [facility] Anion Gap 6 3 - 11 LAB CHEMISTRY METHOD 05/22/2024 8:52 AM [facility] Glucose 111(H) 70 - 100 mg/dL LAB CHEMISTRY METHOD 05/22/2024 8:52 AM [facility] BUN 20 5 - 25 mg/dL LAB CHEMISTRY METHOD 05/22/2024 8:52 AM [facility] Creatinine 1.01 0.70 - 1.30 mg/dL LAB CHEMISTRY METHOD 05/22/2024 8:52 AM [facility] eGFR 84 >=60 mL/min/1. 73m2 LAB CHEMISTRY METHOD 05/22/2024 8:52 AM [facility] Comment:Calculation based on the Chronic Kidney Disease Epidemiology Collaboration (CKD-EPI) equation refit without adjustment for race. BUN/Creatinine Ratio 19.8 LAB CHEMISTRY METHOD 05/22/2024 8:52 AM [facility] Calcium 9.5 8.5 - 10.5 mg/dL LAB CHEMISTRY METHOD 05/22/2024 8:52 AM [facility] Blood Venous blood specimen / Unknown Venipuncture / Unknown 05/22/2024 5:26 AM EST 05/22/2024 7:54 AM EST Jasbir Morocho MD LAB BLOOD ORDERABLES Final R esult [facility] [address] [place] [address], * (ABNORMAL) Complete blood count (05/22/2024 5:26 AM EST) WBC 12.2(H) 4.8 - 10.8 K/mcL LAB HEMETOLOGY METHOD 05/22/2024 8:39 AM [facility] RBC 3.70(L) 4.50 - 5.50 M/mcL LAB HEMETOLOGY METHOD 05/22/2024 8:39 AM [facility] Hemoglobin 10.8(L) 13.5 - 17.5 g/dL LAB HEMETOLOGY METHOD 05/22/2024 8:39 AM [facility] Hematocrit 34.9(L) 42.0 - 54.0 % LAB HEMETOLOGY METHOD 05/22/2024 8:39 AM [facility] MCV 93.8 79.0 - 98.0 FL LAB HEMETOLOGY METHOD 05/22/2024 8:39 AM [facility] MCH 29.0 27.0 - 32.0 pcg LAB HEMETOLOGY METHOD 05/22/2024 8:39 AM [facility] MCHC 30.9(L) 32.0 - 37.0 g/dL LAB HEMETOLOGY METHOD 05/22/2024 8:39 AM [facility] RDW 15.4(H) 11.0 - 15.0 % LAB HEMETOLOGY METHOD 05/22/2024 8:39 AM [facility] Platelets 241 130 - 400 K/mcL LAB HEMETOLOGY METHOD 05/22/2024 8:39 AM [facility] MPV 12.1(H) 7.0 - 11.0 FL LAB HEMETOLOGY METHOD 05/22/2024 8:39 AM [facility] NRBC 0.0 <1.0 % LAB HEMETOLOGY METHOD 05/22/2024 8:39 AM [facility] NRBC Absolute 0.00 <0.10 K/mcL LAB HEMETOLOGY METHOD 05/22/2024 8:39 AM [facility] Blood Venous blood specimen / Unknown Venipuncture / Unknown 05/22/2024 5:26 AM EST 05/22/2024 7:54 AM EST us Jasbir Morocho MD LAB BLOOD ORDERABLES Final R esult [facility] [address] [place] [address], documented in this encounter Visit Diagnoses Diagnosis Essential (primary) hypertension Unspecified essential hypertension documented in this encounter Care Teams Playground Equipment Erector Relationship Specialty Start Date End Date Jasbir Morocho MD [address] [place] [address] PCP - General Family Medicine 05/22/24 documented as of this encounter
--- OUTSIDE RECORDS SUMMARY | 2025-04-28 02:21 | XMS_ITS | Encounter Summary ---
Author Organization [employer] Address [address] [place] [address] Care Team Providers Care Teacher Resource Name Role Phone Jasbir Morocho MD Primary Care Provider [phone] Encounter Details Date Type Department Care Team (Latest Contact Info) Description 06/04/2024 Lab Requisition [facility] - Main Lab [address] [place] [address] Jasbir Morocho MD [address] [place] [address] Hepatic encephalopathy (CMS/HCC V24, CMS/HCC V28); Essential [...] LAB CHEMISTRY METHOD 06/05/2024 8:27 AM EST [facility] ([facility]) [facility] Blood Venous blood specimen / Unknown Venipuncture / Unknown 06/05/2024 6:55 AM EST 06/05/2024 8:01 AM EST us Jasbir Morocho MD LAB BLOOD ORDERABLES Final R esult [facility] [address] [place] [address], * (ABNORMAL) Basic metabolic panel (06/05/2024 6:55 AM EST) Sodium 138 133 - 145 mmol/L LAB CHEMISTRY METHOD 06/05/2024 9:18 AM [facility] Potassium 4.5 3.5 - 5.5 mmol/L LAB CHEMISTRY METHOD 06/05/2024 9:18 AM [facility] Chloride 100 96 - 110 mmol/L LAB CHEMISTRY METHOD 06/05/2024 9:18 AM [facility] CO2 33(H) 21 - 32 mmol/L LAB CHEMISTRY METHOD 06/05/2024 9:18 AM [facility] Anion Gap 5 3 - 11 LAB CHEMISTRY METHOD 06/05/2024 9:18 AM [facility] Glucose 109(H) 70 - 100 mg/dL LAB CHEMISTRY METHOD 06/05/2024 9:18 AM [facility] BUN 31(H) 5 - 25 mg/dL LAB CHEMISTRY METHOD 06/05/2024 9:18 AM [facility] Creatinine 1.81(H) 0.70 - 1.30 mg/dL LAB CHEMISTRY METHOD 06/05/2024 9:18 AM [facility] eGFR 41(L) >=60 mL/min/1. 73m2 LAB CHEMISTRY METHOD 06/05/2024 9:18 AM [facility] Comment:Calculation based on the Chronic Kidney Disease Epidemiology Collaboration (CKD-EPI) equation refit without adjustment for race. BUN/Creatinine Ratio 17.1 LAB CHEMISTRY METHOD 06/05/2024 9:18 AM [facility] Calcium 9.7 8.5 - 10.5 mg/dL LAB CHEMISTRY METHOD 06/05/2024 9:18 AM [facility] Blood Venous blood specimen / Unknown Venipuncture / Unknown 06/05/2024 6:55 AM EST 06/05/2024 8:41 AM EST Jasbir Morocho MD LAB BLOOD ORDERABLES Final R esult [facility] [address] [place] [address], * (ABNORMAL) Complete blood count (06/05/2024 6:55 AM EST) WBC 10.5 4.8 - 10.8 K/mcL LAB HEMETOLOGY METHOD 06/05/2024 8:59 AM [facility] RBC 4.10(L) 4.50 - 5.50 M/[facility] LAB HEMETOLOGY METHOD 06/05/2024 8:59 AM [facility] Hemoglobin 12.2(L) 13.5 - 17.5 g/dL LAB HEMETOLOGY METHOD 06/05/2024 8:59 AM [facility] Hematocrit 39.5(L) 42.0 - 54.0 % LAB HEMETOLOGY METHOD 06/05/2024 8:59 AM [facility] MCV 95.6 79.0 - 98.0 FL LAB HEMETOLOGY METHOD 06/05/2024 8:59 AM [facility] MCH 29.5 27.0 - 32.0 pcg LAB HEMETOLOGY METHOD 06/05/2024 8:59 AM [facility] MCHC 30.9(L) 32.0 - 37.0 g/dL LAB HEMETOLOGY METHOD 06/05/2024 8:59 AM EST [facility] RDW 14.8 11.0 - 15.0 % LAB HEMETOLOGY METHOD 06/05/2024 8:59 AM EST [facility] Platelets 281 130 - 400 K/mcL LAB HEMETOLOGY METHOD 06/05/2024 8:59 AM [facility] MPV 11.5(H) 7.0 - 11.0 FL LAB HEMETOLOGY METHOD 06/05/2024 8:59 AM EST [facility] NRBC 0.0 <1.0 % LAB HEMETOLOGY METHOD 06/05/2024 8:59 AM [facility] NRBC Absolute 0.00 <0.10 K/mcL LAB HEMETOLOGY METHOD 06/05/2024 8:59 AM [facility] Blood Venous blood specimen / Unknown Venipuncture / Unknown 06/05/2024 6:55 AM EST 06/05/2024 8:42 AM EST us Jasbir Morocho MD LAB BLOOD ORDERABLES Final R esult [facility] [address] [place] [address], documented in this encounter Visit Diagnoses Diagnosis Hepatic encephalopathy (CMS/HCC V24, CMS/HCC V28) Hepatic encephalopathy Essential (primary) hypertension Unspecified essential hypertension documented in this encounter Care Teams Teacher Resource Relationship Specialty Start Date End Date Jasbir Morocho MD [address] [place] [address] PCP - General Family Medicine 05/22/24 documented as of this encounter
--- OUTSIDE RECORDS SUMMARY | 2025-04-28 02:21 | XMS_ITS | Encounter Summary ---
Author Organization [employer] Address [address] [place] [address] Care Team Providers Care Switch Operators Supervisor Name Role Phone Jasbir Morocho MD Primary Care Provider [phone] Encounter Details Date Type Department Care Team (Latest Contact Info) Description 05/28/[address] [facility] [address] [place] [address] Jasbir Morocho MD [address] [place] [address] Hepatic encephalopathy (CMS/HCC V24, CMS/HCC V28); Essential [...] LAB CHEMISTRY METHOD 05/29/2024 1:18 PM EST [facility] Potassium 4.9 3.5 - 5.5 mmol/L LAB CHEMISTRY METHOD 05/29/2024 1:18 PM EST [facility] Chloride 96 96 - 110 mmol/L LAB CHEMISTRY METHOD 05/29/2024 1:18 PM EST [facility] CO2 28 21 - 32 mmol/L LAB CHEMISTRY METHOD 05/29/2024 1:18 PM [facility] Anion Gap 10 3 - 11 LAB CHEMISTRY METHOD 05/29/2024 1:18 PM [facility] Glucose 122(H) 70 - 100 mg/dL LAB CHEMISTRY METHOD 05/29/2024 1:18 PM [facility] BUN 26(H) 5 - 25 mg/dL LAB CHEMISTRY METHOD 05/29/2024 1:18 PM [facility] Creatinine 1.61(H) 0.70 - 1.30 mg/dL LAB CHEMISTRY METHOD 05/29/2024 1:18 PM [facility] eGFR 48(L) >=60 mL/min/1. 73m2 LAB CHEMISTRY METHOD 05/29/2024 1:18 PM [facility] Comment:Calculation based on the Chronic Kidney Disease Epidemiology Collaboration (CKD-EPI) equation refit without adjustment for race. BUN/Creatinine Ratio 16.1 LAB CHEMISTRY METHOD 05/29/2024 1:18 PM [facility] Calcium 10.4 8.5 - 10.5 mg/dL LAB CHEMISTRY METHOD 05/29/2024 1:18 PM [facility] Blood Venous blood specimen / Unknown Venipuncture / Unknown 05/29/2024 7:56 AM EST 05/29/2024 11:51 AM EST us Jasbir Morocho MD LAB BLOOD ORDERABLES Final R esult [facility] [address] [place] [address], documented in this encounter Visit Diagnoses Diagnosis Hepatic encephalopathy (CMS/HCC V24, CMS/HCC V28) Hepatic encephalopathy Essential (primary) hypertension Unspecified essential hypertension documented in this encounter Care Teams Switch Operators Supervisor Relationship Specialty Start Date End Date Jasbir Morocho MD [address] [place] [address] PCP - General Family Medicine 05/22/24 documented as of this encounter
--- OUTSIDE RECORDS SUMMARY | 2025-04-28 02:21 | XMS_ITS | Encounter Summary ---
Author Organization [employer] Address [address] [place] [address] Care Team Providers Care Regional Trainer Name Role Phone Jasbir Morocho MD Primary Care Provider [phone] Encounter Details Date Type Department Care Team (Latest Contact Info) Description 06/18/2024 Lab Requisition [facility] - Main Lab [address] [facility] [place] [address] Jasbir Morocho MD [address] [place] [address] Hepatic encephalopathy (CMS/HCC V24, CMS/HCC V28) Social [...] encephalopathy documented in this encounter Care Teams Regional Trainer Relationship Specialty Start Date End Date Jasbir Morocho MD [address] [place] [address] PCP - General Family Medicine 05/22/24 documented as of this encounter
--- OUTSIDE RECORDS SUMMARY | 2025-04-28 02:21 | XMS_ITS | Clinical Summary ---
Author Organization [facility] Address [address] [place] [address] [address] [place] [address] Phone Care Team Providers Care Counter Tender Name Role Phone Ortiz Deluca NP Primary Care Provider [phone] Allergies No known active allergies Medications risperiDONE [...] this topic Insurance Medicare Medicare Care Teams Counter Tender Relationship Specialty Start Date End Date Ortiz Deluca NP [address] [place], [place] [id number] PCP - General Nurse Practitioner 10/27/21
--- NOTE | 2025-04-28 03:09 | ED.GENADULT ---
HPI - General Adult General Chief complaint: Fall Stated complaint: Fall, Elbow Pain Time Seen by Provider: 04/28/25 01:30 EST Source: patient and EMS Limitations: other (Suspect intoxication) History of Present Illness ED Provider: Sisi Powers PA-C HPI narrative: 65-year-old male who is morbidly obese, with a history of alcohol use disorder, chronic encephalopathy, COPD, tobacco use, arthritis, chronic low back pain who was on chronic opiate therapy, who presents after fall out of bed. Patient resides at [facility], he states he woke up on the ground in pain. He states he rolled out of bed, he is now having head, neck, left lateral chest wall, left hip and left knee pain. History limited as the patient is agitated over answering questions so as to obtain a detailed history. Related Data Home Medications ?Medication ?Instructions ?Recorded ?Confirmed cyclobenzaprine 10 mg tablet 10 mg PO TID PRN muscle spasm 04/20/25 04/20/25 Previous Rx's ?Medication ?Instructions ?Recorded blood-glucose meter (FreeStyle #1 ea 09/03/20 Lite Meter kit) lancets 28 gauge (FreeStyle #100 ea 02/02/21 Lancets) FreeStyle David 2 [place] (flash #1 ea 07/03/22 glucose scanning reader) FreeStyle David 2 Sensor (flash #1 ea 07/03/22 glucose sensor) acetaminophen 650 mg 650 mg PO Q12H PRN pain 30 days 04/17/24 tablet,extended release (Tylenol #60 tabs Arthritis Pain) amlodipine 5 mg tablet 5 mg PO DAILY #90 tabs 04/17/24 metoprolol tartrate 50 mg tablet 50 mg PO BID #180 tabs 09/11/24 apixaban 5 mg tablet (Eliquis) 5 mg PO BID #180 tabs 09/20/24 rosuvastatin 20 mg tablet 20 mg PO DAILY #90 tabs 10/07/24 folic acid 1 mg tablet 1 mg PO DAILY #90 tabs 11/06/24 metformin 850 mg tablet 850 mg PO DAILY #90 tabs 11/06/24 albuterol sulfate 90 mcg/actuation 2 puff inhalation QID PRN Wheezing 02/12/25 aerosol inhaler #8.5 grams furosemide 20 mg tablet 30 mg (1.5 x 20 mg) PO DAILY #135 02/21/25 tabs omeprazole 20 mg capsule,delayed 40 mg (2 x 20 mg) PO DAILY@0630 02/21/25 release #180 caps lisinopril 2.5 mg tablet 2.5 mg PO DAILY #90 tabs 03/10/25 fluoxetine 40 mg capsule 40 mg PO DAILY #90 caps 03/13/25 oxycodone 5 mg tablet 5 mg PO Q6H PRN Pain, Severe (Pain 04/23/25 Scale 7-10) #30 tabs Allergies Allergy/AdvReac Type Severity Reaction Status Date / Time codeine AdvReac Mild Agitated Verified 04/28/25 01:41 EST Review of Systems Review of Systems: Unable to obtain the patient has been unreasonable Yes all other systems are reviewed and are negative [facility] Past Medical History Attestation statement: The following information was validated with the patient. Medical History MJ (obstructive sleep apnea) CHF (congestive heart failure) Alcohol use disorder, severe, dependence CHF (congestive heart failure) Effusion, right knee Screen for STD (sexually transmitted disease) Left ankle swelling Hypomagnesemia Diarrhea Acute UTI Physical exam Nocturia Microhematuria Elevated serum creatinine Morbid obesity Increased ammonia level Weakness of both lower extremities Dermatitis, unspecified History of cardiac arrest (~05/2020) Nicotine dependence, cigarettes, uncomplicated Personal history of colonic polyps Hypoventilation associated with obesity syndrome Encephalopathy chronic CKD (chronic kidney disease) stage 3, GFR 30-59 ml/min Cirrhosis Diabetes Obesity (BMI 35.0-39.9 without comorbidity) Wernicke encephalopathy Obstructive sleep apnea (adult) (pediatric) Rib fractures CHF (congestive heart failure) Left atrial enlargement Persistent atrial fibrillation Depression Gout Arthritis Anxiety HTN (hypertension) Surgical History History of tracheostomy (~2019) History of bronchoscopy (~2019) History of colonoscopy (~2021) History of esophagogastroduodenoscopy (EGD) (~2021) History of cardioversion (~2020) S/P percutaneous endoscopic gastrostomy (PEG) tube placement (~2019) Family History Family History Father Lung cancer Mother No problems noted. Maternal Aunt History of heart attack Sister No problems noted. Brother Cancer of kidney Brother No problems noted. Brother No problems noted. Brother No problems noted. Brother No problems noted. Brother No problems noted. Other Substance use disorder Social History Social History Household Members: None Housing: House Do you presently have visiting nurse or other home services: No (pt refuses) Alcohol intake: current Alcohol intake frequency: 3 or more drinks per day Alcohol type: hard liquor Comment: pt refuses fall risk interventions and protocol Patient Tobacco Use Status: Current everyday Tobacco user Tobacco use type: Cigarette Cigarette Packs Per Day: 0.5 Cigarettes Per Day: 6 Years Smoked: 30+ e-Cigarette/Vaping Use: Never Used Advance Directives: Yes Advance Directives on File: Yes Advance Directives Date on File: 06/05/20 Do you have a plan to hurt others: No Plan service: Yes Current occupational status: unemployed Cognitive needs: No Hearing needs: No Vision needs: No Physical Exam ED Vital Signs: Vital Signs - 24 hr 04/28/25 01:27 EST 04/28/25 02:53 Temperature 97 F Pulse Rate 101 H Respiratory Rate 18 18 Blood Pressure 125/73 Pulse Oximetry 96 Oxygen Delivery Method Room Air BMI result Body Mass Index 39.6 Const Other: Incidentally sleeping on his left side, with a all of his weight, arm extended through the rail of the bed, easily woken with verbal stimuli, appears older than stated age, overall poor hygiene Orientation/consciousness: patient oriented x3 [facility] Other: Suspect alcohol halitosis Neck Other: No midline tenderness Chest Other: No deformity over left lateral chest wall, although he flinches with light palpation, with distraction there was no palpable pain Resp Effort & Inspection: normal respiratory effort Cardio Other: Normal peripheral perfusion Back/Spine/Pelvis Other: No midline tenderness along the length of the spine Skin Other: Warm dry no rash Neuro General: patient oriented x3, no focal motor deficits and CN's II-XI intact bilaterally Extrem Other: Patient lying on his left side with the his left knee fully flexed, he rolled onto his back, and was able to fully extend the right knee, no deformity no bruising no swelling he was not pleased with performing range of motion Psych Other: Hostile, uncooperative Medications Administered Discontinued Medications Generic Name Dose Route Start Last Admin Trade Name Marleny PRN Reason Stop Dose Admin Morphine Sulfate 10 mg 04/28/25 02:06 04/28/25 02:53 Morphine Sulfate 10 Mg/Ml Cartridge IM 04/28/25 02:07 10 mg ONCE ONE Administration Protocol Medical Decision Making Medical Decision Making MDM Narrative: 65-year-old male who is morbidly obese, with a history of alcohol use disorder, chronic encephalopathy, COPD, tobacco use, arthritis, chronic low back pain who was on chronic opiate therapy, who presents after fall out of bed. Patient resides at [facility], he states he woke up on the ground in pain. He states he rolled out of bed, he is now having head, neck, left lateral chest wall, left hip and left knee pain. History limited as the patient is agitated over answering questions so as to obtain a detailed history. Problem: Morbid obesity, alcohol use disorder, arthritis chronic pain on opiate therapy History: Per patient which is limited , and per EMS I have considered the following differential diagnoses: Fracture, dislocation, contusion, strain, intracranial hemorrhage Plan: The patient has been difficult to assess, with a lot of prompting, I was able to examine him, and perform range of motion of all extremities, palpation of the back with inspection, and chest wall, I do not feel he sustained an acute injury beyond a contusion. Doubtful to be intracranial hemorrhage, per EMS, his bed is ?situated on the floor, if you rolled onto the floor, it was a very short distance. However he is anticoagulated, I will still obtain CT scan of the brain. Again, it has been difficult to assessed the patient, he is not cooperative with movement of his body, therefore, I am obtaining CT scans of his head neck chest pelvis and knee. We will medicate him with a intramuscular morphine. I have independently reviewed the following tests: CT brain:MPRESSION: 1. Motion limited head CT with no acute intracranial findings. CT cervical spine:MPRESSION: No acute findings. CT chest:MPRESSION: 1. Paraseptal emphysema. No acute abnormality. CT pelvis:IMPRESSION: No acute fracture or dislocation. CT knee: Impression: Prepatellar soft tissue thickening and tendinotic thickening of the inferior patellar tendon. Osteopenia No fracture identified. Differential Diagnosis Differential Diagnoses: The differential diagnosis associated with the presentation includes See medical decision-making Admission/Observation Consideration of admission/observation: Escalation of care including admission/observation considered Not applicable Radiology Impression Discussion of test interpretation with radiology: I have reviewed the radiologist's reading. Discharge Plan Discharge Clinical Impression: Contusion Patient Disposition: Home, Self-Care Instructions: Bone Bruise (ED) Additional Instructions: CT scans of your brain, cervical spine, chest pelvis and knee were obtained, you had no acute injuries. You have potential bruising, see home care instructions. You can continue to follow up with your primary care provider. Prescriptions: No Action (DME) blood-glucose meter [FreeStyle Lite Meter] Kit See Rx Instructions .ROUTE .MEDSUPPLY Qty: 1 0RF Rx Instructions: check sugar twice a day (DME) lancets [FreeStyle Lancets] 28 gauge misc See Rx Instructions .ROUTE .MEDSUPPLY Qty: 100 2RF Rx Instructions: check sugar twice a day (DME) FreeStyle David 2 [place] Misc See Rx Instructions .Route Qty: 1 0RF Rx Instructions: tid testing (DME) FreeStyle David 2 Sensor Kit See Rx Instructions .Route Qty: 1 3RF Rx Instructions: tid testing amlodipine 5 mg tablet 5 mg PO DAILY Qty: 90 1RF acetaminophen [Tylenol Arthritis Pain] 650 mg tablet extended release 650 mg PO Q12H PRN (Reason: pain) 30 Days Qty: 60 0RF metoprolol tartrate 50 mg tablet 50 mg PO BID Qty: 180 1RF Eliquis 5 mg tablet 5 mg PO BID Qty: 180 1RF rosuvastatin 20 mg tablet 20 mg PO DAILY Qty: 90 1RF Rx Instructions: increased dose folic acid 1 mg tablet 1 mg PO DAILY Qty: 90 1RF metformin 850 mg tablet 850 mg PO DAILY Qty: 90 1RF albuterol sulfate 90 mcg/actuation HFA aerosol inhaler 2 puff inhalation QID PRN (Reason: Wheezing) Qty: 8.5 3RF furosemide 20 mg tablet 30 mg PO DAILY Qty: 135 1RF omeprazole 20 mg capsule,delayed release(DR/EC) 40 mg PO DAILY@0630 Qty: 180 1RF lisinopril 2.5 mg tablet 2.5 mg PO DAILY Qty: 90 1RF fluoxetine 40 mg capsule 40 mg PO DAILY Qty: 90 0RF cyclobenzaprine 10 mg tablet 10 mg PO TID PRN (Reason: muscle spasm) oxycodone 5 mg Tablet 5 mg PO Q6H PRN (Reason: Pain, Severe (Pain Scale 7-10)) Qty: 30 0RF Rx Instructions: Partial Fill upon patient request. Print Language: Swazi
--- NOTE | 2025-04-28 03:09 | PC.NURSE ---
continent, assisted with urinal, CYU
[2025-04-28 05:42] LABS: MANUAL DIFF FLAG NO
[2025-04-28 05:44] LABS: Appearance Urine Clear; Glucose Urine UA Negative (Negative); PH 5.0 (5.0-9.0); Specific Gravity - Urine 1.010 (1.005-1.025); UMIC TRIGGER UACC YES
[2025-04-28 06:01] LABS: Hematocrit 36.2 % (42.0-52.0); Hemoglobin 11.5 g/dl (14.0-18.0); Imm Gran Abs Auto 0.08 X10*3/uL (0.00-0.03); Imm Gran Pct Auto 0.7 % (0.0-0.4); Lymphocytes Absolute Auto 1.8 X10*3/uL (1.2-4.9); Mean Corpuscular HGB Conc 31.8 g/dl (31.0-36.0); Mean Corpuscular Hemoglobin 28.3 pg (27.0-33.0); Mean Corpuscular Volume 89.2 fL (80.0-98.0); NRBC Abs Auto 0.000 X10*3/uL (0.0-0.012); NRBC Pct Auto 0.0 /100WBC (0.0-0.2); Platelet Count 414 X10*3/uL (160-400); Red Blood Count 4.06 X10*6/uL (4.60-5.80); White Blood Count 11.3 X10*3/uL (4.8-10.8)
[2025-04-28 06:03] LABS: Anion Gap 16 (12-20); Blood Urea Nitrogen 30 mg/dL (9-16); Calcium 9.4 mg/dL (8.4-10.2); Carbon Dioxide 25 mmol/L (22-29); Chloride 94 mmol/L (96-108); Creatinine Clr Calc Pharmacy 71.5; Estimated Glomerular Filt Rate 47; Magnesium 1.9 mg/dL (1.6-2.6); Potassium 4.1 mmol/L (3.3-5.1); Sodium 131 mmol/L (135-145)
--- NOTE | 2025-04-28 06:25 | PC.NURSE ---
comes in from [facility] after rolling off edge of floor mattress bed. complains of left sided pain. hx DM, afib - Eliquis. no acute injury on CT scan. patient has recent history of discontent with past 2 STR facilties. now wants to go home with services. MOLLY Christensen informed she can keep him for PT/CM. alert and oriented although vague at times. no IV. wheelchair bound. unable to extend L elbow without severe pain. has a cell phone with name on it. makes needs known. has not swallowed any pills here. continent of urine but needed assistance holding urinal.
[2025-04-28 07:37] LABS: Glucose, Whole Blood 107 mg/dL (60-115)
--- NOTE | 2025-04-28 09:22 | PHA.MEDREC ---
Pharmacy Consult ? Medication Reconciliation Pharmacy has reviewed the medication reconciliation done by RN. Only thing to note is the patients claims shows furosemide at 30 mg daily however the regal care list shows 20 mg daily. changed to reflect regalcare
--- NOTE | 2025-04-28 09:28 | PC.NURSE ---
Purewick placed. Pt was given urinal and 'missed'. Pt is non-ambulatory, wheelchair use at baseline. Able to make needs known. Med rec completed, pharmacy verifying at this time. Will medicate once completed/entered.
--- NOTE | 2025-04-28 10:18 | MHC.CM.ED ---
Received case mangement consult overnight. Patient was d/c'd from [facility] to [facility] on 04/23. Patient returned overnight due to fall. Per Ebonie RN, patient's does not feel patient can safely return home and needs to return to [facility]. Patient has been stating he wants to go home. Physical therapy eval ordered and unavailable until tomorrow 04/29. Return referral made to [facility] to see if they will accept patient back. Continue to monitor for d/c needs.
[2025-04-28 11:36] LABS: Glucose, Whole Blood 108 mg/dL (60-115)
--- NOTE | 2025-04-28 12:47 | PC.NURSE ---
Assumed care of patient in ED overflow unit at 1130. Patient alert and oriented x 3 intermittently confused on situation. Cooperative with care. VSS, lungs diminished on room air, unlabored breathing. purewick in place. resting comfortably in bed. Bed alarm on and call dietrich in reach. Encouraged to use call dietrich for patient's needs. Awaiting PT evaluation tomorrow for possible placement.
[2025-04-28] MEDS: oxyCODONE HCl Immed Release 5 MG TABLET PO ×2 (15:05→21:09)
[2025-04-28 16:04] LABS: Glucose, Whole Blood 105 mg/dL (60-115)
[2025-04-28 22:14] LABS: Glucose, Whole Blood 119 mg/dL (60-115)
--- NOTE | 2025-04-29 02:54 | PC.NURSE ---
0300 Patient alert and oriented x 3 intermittently confused on situation. Cooperative with care. VSS, Patient sleeping with CPAP, maintaining O2 sats 94%. , RR even and nonlabored. Purewick in place per patient request. PM diabetic snack provided to patient. Bed alarm on and call dietrich in reach. Encouraged to use call dietrich for patient's needs. Patient with left sided pain secondary to falling as SNF, refer to pain/medication documentation. Awaiting PT evaluation for possible placement 04/29/25.
[2025-04-29 03:40] VITALS: PULSE 92; RESP 12; O2SAT 96
[2025-04-29 03:43] VITALS: BP 100/61; PULSE 93; RESP 16; TEMP 36.4; O2SAT 93
[2025-04-29] MEDS: oxyCODONE HCl Immed Release 5 MG TABLET PO (05:17)
[2025-04-29] MEDS: Nicotine 21 MG PATCH.TD24 TRANSDERMA (06:14)
[2025-04-29 07:39] LABS: Glucose, Whole Blood 114 mg/dL (60-115)
[2025-04-29 09:14] VITALS: BP 98/65; PULSE 98; RESP 18; TEMP 36.7; O2SAT 92
[2025-04-29 09:15] VITALS: BP 98/65
--- NOTE | 2025-04-29 09:47 | MHC.CM.ED ---
Addendum entered by Larissa Cantu 04/29/25 10:41: Received notification from Harmony at [facility] that older adult social work specialist spoke with Ortiz and Ortiz agreeable to patient returning to [facility]. Spoke with Ortiz via telephone. Verified Ortiz agreeable. Edwin GAYTAN booked for 12pm. Med [facility] with chart. Patient, Ortiz, Natalya RN and Sylvia LOPEZ aware. Original Note: Patient remains in ER overflow. Physical therapy eval completed. Short term rehab is recommended. Met with patient to discuss d/c planning. Patient's complaint about [facility] is that he asked for water and was told to wait. Patient requesting CM speak with his brother/HCP, Ortiz about STR placement. Spoke with Ortiz via telephone at [phone]. Ortiz states he hasn't been happy with [facility] because patient has had to wait for things. When Ortiz called the nursing station to discuss this Ortiz felt he was given attitude by the nurse. Ortiz agreeable to [facility] liaison to reach out to him to discuss his complaints. Ortiz requesting referral to [facility] and other local facilities for bed availability. Continue to monitor for d/c needs.
--- NOTE | 2025-04-29 11:25 | PC.NURSE ---
Patients bp low at morning med pass. Held all bp and lasix recheck still low 111/58.
[2025-04-29 11:42] LABS: Glucose, Whole Blood 101 mg/dL (60-115)
[2025-04-29 11:45] VITALS: BP 100/67; PULSE 107; RESP 18; TEMP 36.7; O2SAT 92
[2025-04-29 12:16] VITALS: BP 100/67; PULSE 107; RESP 18; TEMP 36.7; O2SAT 92
== END 2025-04-29 12:19 ==
PROVIDERS: Physician Assistant Medical; Emergency Provider Student in an Organized Health Care Education/Training Program; PCP Nurse Practitioner Family
DX: S20.213A Contusion of bilateral front wall of thorax, initial encounter (principal); R51.9 Headache, unspecified; M54.2 Cervicalgia; R10.22 Pelvic and perineal pain left side; M25.562 Pain in left knee; M25.561 Pain in right knee; M54.50 Low back pain, unspecified; E11.9 Type 2 diabetes mellitus without complications; R26.2 Difficulty in walking, not elsewhere classified; F17.210 Nicotine dependence, cigarettes, uncomplicated; W06.XXXA Fall from bed, initial encounter; Z91.81 History of falling; Y93.9 Activity, unspecified; Y92.092 Bedroom in other non-institutional residence as the place of occurrence of the external cause; Y99.8 Other external cause status; Z79.631 Long term (current) use of antimetabolite agent; Z79.891 Long term (current) use of opiate analgesic; Z79.899 Other long term (current) drug therapy; Z51.81 Encounter for therapeutic drug level monitoring; Z79.84 Long term (current) use of oral hypoglycemic drugs
CPT/HCPCS: 36415; 70450; 71250; 72125; 72192; 73700; 80048; 80307; 81001; 82947; 83735; 85025; 96372; 97162; 99285; J2270

== ENCOUNTER → 2025-04-28 02:04 | Outpatient (BNV) | payer MEDICARE, OTHER, MEDICAID, SELFPAY | PROVIDERS: Emergency Provider Student in an Organized Health Care Education/Training Program; Visit Provider General Practice | DX: M25.562 Pain in left knee (principal); M25.552 Pain in left hip; M54.2 Cervicalgia; R07.89 Other chest pain; R51.9 Headache, unspecified; W06.XXXA Fall from bed, initial encounter | CPT/HCPCS: 72192 ==

== ENCOUNTER 2025-05-05 22:03 | Emergency (ER) | payer MEDICARE, OTHER, SELFPAY ==
--- NOTE | ~2025-05-05 | CT_ITS ---
CLINICAL HISTORY: Fall; Posterior Spinal Tenderness CT cervical spine without contrast Comparison: 04/28/2025 Findings: Vertebral alignment is within normal limits. There is multiple level degenerative disc change. No acute fractures or dislocations. No acute findings on limited view of the intracranial contents. No cervical fluid collections or masses. Lung apices are clear. IMPRESSION: No acute findings. This document has been electronically signed by: Jasbir Proctor MD on 05/06/2025 05:03:02
--- NOTE | ~2025-05-05 | CT_ITS ---
CLINICAL HISTORY: Fall; ? Head strike CT head without contrast Comparison: 04/28/2025 Findings: No new intra-axial mass, midline shift, hydrocephalus, or acute hemorrhage. There is moderate diffuse atrophy. There is no sinus or mastoid fluid. The orbits are within normal limits. There is no acute fracture. IMPRESSION: 1. No acute intracranial findings. This document has been electronically signed by: Jasbir Proctor MD on 05/06/2025 05:04:29
[2025-05-05 22:23] VITALS: BP 111/83; BP 140/84; PULSE 81; PULSE 95; RESP 20; TEMP 36.5; O2SAT 97; O2SAT 98; BMI 36.9
--- OUTSIDE RECORDS SUMMARY | 2025-05-05 22:54 | XMS_ITS | Encounter Summary ---
Author Organization [employer] Address [address] [place] [address] Care Team Providers Care Retail Experience Specialist Name Role Phone Jasbir Morocho MD Primary Care Provider + [phone] Encounter Details Date Type Department Care Team (Late st Contact Info) Description 05/22/2024 Lab Requisition [facility] [address] [place] [address] Jasbir Morocho MD [address] [place] [address] Essential (primary) hypertension Social History Tobacco Use [...] LAB CHEMISTRY METHOD 05/22/2024 8:52 AM EST [facility] Potassium 3.9 3.5 - 5.5 mmol/L LAB CHEMISTRY METHOD 05/22/2024 8:52 AM EST [facility] Chloride 99 96 - 110 mmol/L LAB CHEMISTRY METHOD 05/22/2024 8:52 AM EST [facility] CO2 32 21 - 32 mmol/L LAB CHEMISTRY METHOD 05/22/2024 8:52 AM [facility] Anion Gap 6 3 - 11 LAB CHEMISTRY METHOD 05/22/2024 8:52 AM [facility] Glucose 111(H) 70 - 100 mg/dL LAB CHEMISTRY METHOD 05/22/2024 8:52 AM [facility] BUN 20 5 - 25 mg/dL LAB CHEMISTRY METHOD 05/22/2024 8:52 AM [facility] Creatinine 1.01 0.70 - 1.30 mg/dL LAB CHEMISTRY METHOD 05/22/2024 8:52 AM [facility] eGFR 84 >=60 mL/min/1. 73m2 LAB CHEMISTRY METHOD 05/22/2024 8:52 AM [facility] Comment:Calculation based on the Chronic Kidney Disease Epidemiology Collaboration (CKD-EPI) equation refit without adjustment for race. BUN/Creatinine Ratio 19.8 LAB CHEMISTRY METHOD 05/22/2024 8:52 AM [facility] Calcium 9.5 8.5 - 10.5 mg/dL LAB CHEMISTRY METHOD 05/22/2024 8:52 AM [facility] Blood Venous blood specimen / Unknown Venipuncture / Unknown 05/22/2024 5:26 AM EST 05/22/2024 7:54 AM EST Jasbir Morocho MD LAB BLOOD ORDERABLES Final R esult [facility] [address] [place] [address], * (ABNORMAL) Complete blood count (05/22/2024 5:26 AM EST) WBC 12.2(H) 4.8 - 10.8 K/mcL LAB HEMETOLOGY METHOD 05/22/2024 8:39 AM [facility] RBC 3.70(L) 4.50 - 5.50 M/mcL LAB HEMETOLOGY METHOD 05/22/2024 8:39 AM [facility] Hemoglobin 10.8(L) 13.5 - 17.5 g/dL LAB HEMETOLOGY METHOD 05/22/2024 8:39 AM [facility] Hematocrit 34.9(L) 42.0 - 54.0 % LAB HEMETOLOGY METHOD 05/22/2024 8:39 AM [facility] MCV 93.8 79.0 - 98.0 FL LAB HEMETOLOGY METHOD 05/22/2024 8:39 AM [facility] MCH 29.0 27.0 - 32.0 pcg LAB HEMETOLOGY METHOD 05/22/2024 8:39 AM [facility] MCHC 30.9(L) 32.0 - 37.0 g/dL LAB HEMETOLOGY METHOD 05/22/2024 8:39 AM [facility] RDW 15.4(H) 11.0 - 15.0 % LAB HEMETOLOGY METHOD 05/22/2024 8:39 AM [facility] Platelets 241 130 - 400 K/mcL LAB HEMETOLOGY METHOD 05/22/2024 8:39 AM [facility] MPV 12.1(H) 7.0 - 11.0 FL LAB HEMETOLOGY METHOD 05/22/2024 8:39 AM [facility] NRBC 0.0 <1.0 % LAB HEMETOLOGY METHOD 05/22/2024 8:39 AM [facility] NRBC Absolute 0.00 <0.10 K/mcL LAB HEMETOLOGY METHOD 05/22/2024 8:39 AM [facility] Blood Venous blood specimen / Unknown Venipuncture / Unknown 05/22/2024 5:26 AM EST 05/22/2024 7:54 AM EST us Jasbir Morocho MD LAB BLOOD ORDERABLES Final R esult [facility] [address] [place] [address], documented in this encounter Visit Diagnoses Diagnosis Essential (primary) hypertension Unspecified essential hypertension documented in this encounter Care Teams Retail Experience Specialist Relationship Specialty Start Date End Date Jasbir Morocho MD [address] [place] [address] PCP - General Family Medicine 05/22/24 documented as of this encounter
--- OUTSIDE RECORDS SUMMARY | 2025-05-05 22:54 | XMS_ITS | Clinical Summary ---
Author Organization [address] [facility] Address [address] [place] [address] Phone Care Team Providers Care Lot Porter Name Role Phone Jasbir Morocho MD Primary [...] mmol/L LAB CHEMISTRY METHOD 06/12/2024 9:04 AM [facility] Potassium 4.5 3.5 - 5.5 mmol/L LAB CHEMISTRY METHOD 06/12/2024 9:04 AM [facility] Chloride 100 96 - 110 mmol/L LAB CHEMISTRY METHOD 06/12/2024 9:04 AM [facility] CO2 32 21 - 32 mmol/L LAB CHEMISTRY METHOD 06/12/2024 9:04 AM [facility] Anion Gap 7 3 - 11 LAB CHEMISTRY METHOD 06/12/2024 9:04 AM [facility] Glucose 92 70 - 100 mg/dL LAB CHEMISTRY METHOD 06/12/2024 9:04 AM [facility] BUN 27(H) 5 - 25 mg/dL LAB CHEMISTRY METHOD 06/12/2024 9:04 AM [facility] Creatinine 1.65(H) 0.70 - 1.30 mg/dL LAB CHEMISTRY METHOD 06/12/2024 9:04 AM EST [facility] LAB eGFR 46(L) >=60 mL/min/1. 73m2 LAB CHEMISTRY METHOD 06/12/2024 9:04 AM EST [facility] LAB Comment:Calculation based on the Chronic Kidney Disease Epidemiology Collaboration (CKD-EPI) equation refit without adjustment for race. BUN/Creatinine Ratio 16.4 LAB CHEMISTRY METHOD 06/12/2024 9:04 AM [facility] Calcium 9.9 8.5 - 10.5 mg/dL LAB CHEMISTRY METHOD 06/12/2024 9:04 AM [facility] Blood Venous blood specimen / Unknown Venipuncture / Unknown 06/12/2024 7:15 AM EST 06/12/2024 8:35 AM EST us Jasbir Morocho MD LAB BLOOD ORDERABLES Final R esult [facility] [address] [place] [address], from Last 3 Months or Most Recently Relevant to Health Maintenance Insurance MEDICAID - [place] MEDICARE [facility] Care Teams Lot Porter Relationship Specialty Start Date End Date Jasbir Morocho MD [address] [place] [address] PCP - General Family Medicine 05/22/24
--- OUTSIDE RECORDS SUMMARY | 2025-05-05 22:54 | XMS_ITS | Encounter Summary ---
Author Organization [employer] Address [address] [place] [address] Care Team Providers Care Professional System Administrator Name Role Phone Jasbir Morocho MD Primary Care Provider [phone] Encounter Details Date Type Department Care Team (Latest Contact Info) Description 06/11/2024 Lab Requisition [facility] - Main Lab [address] [place] [address] Jasbir Morocho MD [address] [place] [address] Hepatic encephalopathy (CMS/HCC V24, CMS/HCC V28); Essential [...] LAB CHEMISTRY METHOD 06/12/2024 8:57 AM EST [facility] Blood Venous blood specimen / Unknown Venipuncture / Unknown 06/12/2024 7:15 AM EST 06/12/2024 8:35 AM EST us Jasbir Morocho MD LAB BLOOD ORDERABLES Final R esult [facility] [address] [place] [address], [place] [phone] * (ABNORMAL) Basic metabolic panel (06/12/2024 7:15 AM EST) Sodium 139 133 - 145 mmol/L LAB CHEMISTRY METHOD 06/12/2024 9:04 AM [facility] Potassium 4.5 3.5 - 5.5 mmol/L LAB CHEMISTRY METHOD 06/12/2024 9:04 AM [facility] Chloride 100 96 - 110 mmol/L LAB CHEMISTRY METHOD 06/12/2024 9:04 AM [facility] CO2 32 21 - 32 mmol/L LAB CHEMISTRY METHOD 06/12/2024 9:04 AM [facility] Anion Gap 7 3 - 11 LAB CHEMISTRY METHOD 06/12/2024 9:04 AM [facility] Glucose 92 70 - 100 mg/dL LAB CHEMISTRY METHOD 06/12/2024 9:04 AM [facility] BUN 27(H) 5 - 25 mg/dL LAB CHEMISTRY METHOD 06/12/2024 9:04 AM [facility] Creatinine 1.65(H) 0.70 - 1.30 mg/dL LAB CHEMISTRY METHOD 06/12/2024 9:04 AM [facility] eGFR 46(L) >=60 mL/min/1. 73m2 LAB CHEMISTRY METHOD 06/12/2024 9:04 AM [facility] Comment:Calculation based on the Chronic Kidney Disease Epidemiology Collaboration (CKD-EPI) equation refit without adjustment for race. BUN/Creatinine Ratio 16.4 LAB CHEMISTRY METHOD 06/12/2024 9:04 AM [facility] Calcium 9.9 8.5 - 10.5 mg/dL LAB CHEMISTRY METHOD 06/12/2024 9:04 AM [facility] Blood Venous blood specimen / Unknown Venipuncture / Unknown 06/12/2024 7:15 AM EST 06/12/2024 8:35 AM EST us Jasbir Morocho MD LAB BLOOD ORDERABLES Final R esult [facility] [address] [place] [address], * (ABNORMAL) Complete blood count (06/12/2024 7:15 AM EST) WBC 11.3(H) 4.8 - 10.8 K/mcL LAB HEMETOLOGY METHOD 06/12/2024 8:51 AM [facility] RBC 4.40(L) 4.50 - 5.50 M/[facility] LAB HEMETOLOGY METHOD 06/12/2024 8:51 AM [facility] Hemoglobin 12.7(L) 13.5 - 17.5 g/dL LAB HEMETOLOGY METHOD 06/12/2024 8:51 AM [facility] Hematocrit 41.2(L) 42.0 - 54.0 % LAB HEMETOLOGY METHOD 06/12/2024 8:51 AM [facility] MCV 94.5 79.0 - 98.0 FL LAB HEMETOLOGY METHOD 06/12/2024 8:51 AM [facility] MCH 29.1 27.0 - 32.0 pcg LAB HEMETOLOGY METHOD 06/12/2024 8:51 AM [facility] MCHC 30.8(L) 32.0 - 37.0 g/dL LAB HEMETOLOGY METHOD 06/12/2024 8:51 AM [facility] RDW 14.4 11.0 - 15.0 % LAB HEMETOLOGY METHOD 06/12/2024 8:51 AM EST [facility] Platelets 224 130 - 400 K/mcL LAB HEMETOLOGY METHOD 06/12/2024 8:51 AM [facility] MPV 11.3(H) 7.0 - 11.0 FL LAB HEMETOLOGY METHOD 06/12/2024 8:51 AM EST [facility] NRBC 0.0 <1.0 % LAB HEMETOLOGY METHOD 06/12/2024 8:51 AM EST [facility] NRBC Absolute 0.00 <0.10 K/mcL LAB HEMETOLOGY METHOD 06/12/2024 8:51 AM EST [facility] Blood Venous blood specimen / Unknown Venipuncture / Unknown 06/12/2024 7:15 AM EST 06/12/2024 8:35 AM EST us Jasbir Morocho MD LAB BLOOD ORDERABLES Final R esult [facility] [address] [place] [address], documented in this encounter Visit Diagnoses Diagnosis Hepatic encephalopathy (CMS/HCC V24, CMS/HCC V28) Hepatic encephalopathy Essential (primary) hypertension Unspecified essential hypertension documented in this encounter Care Teams Professional System Administrator Relationship Specialty Start Date End Date Jasbir Morocho MD [address] [place] [address] PCP - General Family Medicine 05/22/24 documented as of this encounter
--- OUTSIDE RECORDS SUMMARY | 2025-05-05 22:54 | XMS_ITS | Encounter Summary ---
Author Organization [employer] Address [address] [place] [address] Care Team Providers Care Chemical Waste Management Technician Name Role Phone Jasbir Morocho MD Primary Care Provider [phone] Encounter Details Date Type Department Care Team (Latest Contact Info) Description 05/29/2024 Lab Requisition [facility] - Main Lab [address] [place] [address] Jasbir Morocho MD [address] [place] [address] Acute kidney failure, unspecified (CMS/HCC V24); Hepatic [...] LAB CHEMISTRY METHOD 05/29/2024 2:59 PM EST [facility] Blood Venous blood specimen / Unknown 05/29/2024 10:49 AM EST 05/29/2024 2:40 PM EST us Jasbir Morocho MD LAB BLOOD ORDERABLES Final R esult [facility] H[facility]PITAL LAB [address] [place] [address], documented in this encounter Visit Diagnoses Diagnosis Acute kidney failure, unspecified (CMS/HCC V24) Acute kidney failure, unspecified Hepatic encephalopathy (CMS/HCC V24, CMS/HCC V28) Hepatic encephalopathy Essential (primary) hypertension Unspecified essential hypertension documented in this encounter Care Teams Chemical Waste Management Technician Relationship Specialty Start Date End Date Jasbir Morocho MD [address] [place] [address] PCP - General Family Medicine 05/22/24 documented as of this encounter
--- OUTSIDE RECORDS SUMMARY | 2025-05-05 22:54 | XMS_ITS | Encounter Summary ---
Author Organization [employer] Address [address] [place] [address] Care Team Providers Care Pipe Supervisor Name Role Phone Jasbir Morocho MD Primary Care Provider [phone] Encounter Details Date Type Department Care Team (Latest Contact Info) Description 06/18/2024 Lab Requisition [facility] - Main Lab [address] [facility] [place] [address] Jasbir Morocho MD [address] [place] [address] Hepatic encephalopathy (CMS/HCC V24, CMS/HCC V28) Social [...] encephalopathy documented in this encounter Care Teams Pipe Supervisor Relationship Specialty Start Date End Date Jasbir Morocho MD [address] [place] [address] PCP - General Family Medicine 05/22/24 documented as of this encounter
--- OUTSIDE RECORDS SUMMARY | 2025-05-05 22:54 | XMS_ITS | Encounter Summary ---
Author Organization [employer] Address [address] [place] [address] Care Team Providers Care Hot Header Operator Name Role Phone Jasbir Morocho MD Primary Care Provider [phone] Encounter Details Date Type Department Care Team (Late st Contact Info) Description 05/21/2024 Lab Requisition [facility] - Main Lab [address] [facility] [place] [address] Jasbir Morocho MD [address] [place] [address] Other termite control service representative (current) drug therapy; Unspecified cirrhosis of liver [...] disease, unspecified Unspecified atrial fibrillation (CMS/HCC) Other longterm (current) drug therapy HEMOGLOBIN A1C Routine 05/21/2024 6:42 AM EST Unspecified cirrhosis of liver (CMS/HCC) Unspecified dementia, unspecified severity, without behavioral disturbance, psychotic disturbance, mood disturbance, and anxiety (CMS/HCC) Chronic kidney disease, unspecified Unspecified atrial fibrillation (CMS/HCC) Other termite control service representative (current) drug therapy BASIC METABOLIC PANEL Routine 05/21/2024 6:42 AM EST Unspecified cirrhosis of liver (CMS/HCC) Unspecified dementia, unspecified severity, without behavioral disturbance, psychotic disturbance, mood disturbance, and anxiety (CMS/HCC) Chronic kidney disease, unspecified Unspecified atrial fibrillation (CMS/HCC) Other termite control service representative (current) drug therapy documented in this encounter Results * Hemoglobin A1c (05/21/2024 6:42 AM EST) Pathologist [facility] Hemoglobin A1C 5.9 <6.5 % LAB CHEMISTRY [...] [facility] [address] [place] [address], * (ABNORMAL) Basic metabolic panel (05/21/2024 6:42 AM EST) Pathologist [facility] Sodium 138 133 - 145 mmol/L LAB [...] [facility] [address] [place] [address], * (ABNORMAL) Complete blood count (05/21/2024 6:42 [...] MD LAB BLOOD ORDERABLES Final R esult [facility] H[facility] LAB [address] [place] [address], documented in this encounter Visit Diagnoses Diagnosis Other termite control service representative (current) drug therapy Unspecified cirrhosis of liver ([facility] V24, [facility] V28) Unspecified dementia, unspecified severity, without behavioral disturbance, psychotic disturbance, mood disturbance, and anxiety ([facility] V24, [facility] V28) Chronic kidney disease, unspecified Unspecified atrial fibrillation ([facility] V24, [facility] V28) documented in this encounter Care Teams Hot Header Operator Relationship Specialty Start Date End Date Jasbir Morocho MD [address] [place] [address] PCP - General Family Medicine 05/22/24 documented as of this encounter
--- OUTSIDE RECORDS SUMMARY | 2025-05-05 22:54 | XMS_ITS | Encounter Summary ---
Author Organization [employer] Address [address] [place] [address] Care Team Providers Care Regulatory Agency Director Name Role Phone Jasbir Morocho MD Primary Care Provider [phone] Encounter Details Date Type Department Care Team (Latest Contact Info) Description 06/04/2024 Lab Requisition [facility] - Main Lab [address] [place] [address] Jasbir Morocho MD [address] [place] [address] Hepatic encephalopathy (CMS/HCC V24, CMS/HCC V28); Essential [...] LAB CHEMISTRY METHOD 06/05/2024 8:27 AM EST [facility] Blood Venous blood specimen / Unknown Venipuncture / Unknown 06/05/2024 6:55 AM EST 06/05/2024 8:01 AM EST us Jasbir Morocho MD LAB BLOOD ORDERABLES Final R esult [facility] [address] [place] [address], * (ABNORMAL) Basic metabolic panel (06/05/2024 6:55 AM EST) Sodium 138 133 - 145 mmol/L LAB CHEMISTRY METHOD 06/05/2024 9:18 AM [facility] Potassium 4.5 3.5 - 5.5 mmol/L LAB CHEMISTRY METHOD 06/05/2024 9:18 AM [facility] Chloride 100 96 - 110 mmol/L LAB CHEMISTRY METHOD 06/05/2024 9:18 AM [facility] CO2 33(H) 21 - 32 mmol/L LAB CHEMISTRY METHOD 06/05/2024 9:18 AM [facility] Anion Gap 5 3 - 11 LAB CHEMISTRY METHOD 06/05/2024 9:18 AM [facility] Glucose 109(H) 70 - 100 mg/dL LAB CHEMISTRY METHOD 06/05/2024 9:18 AM [facility] BUN 31(H) 5 - 25 mg/dL LAB CHEMISTRY METHOD 06/05/2024 9:18 AM [facility] Creatinine 1.81(H) 0.70 - 1.30 mg/dL LAB CHEMISTRY METHOD 06/05/2024 9:18 AM [facility] eGFR 41(L) >=60 mL/min/1. 73m2 LAB CHEMISTRY METHOD 06/05/2024 9:18 AM [facility] Comment:Calculation based on the Chronic Kidney Disease Epidemiology Collaboration (CKD-EPI) equation refit without adjustment for race. BUN/Creatinine Ratio 17.1 LAB CHEMISTRY METHOD 06/05/2024 9:18 AM [facility] Calcium 9.7 8.5 - 10.5 mg/dL LAB CHEMISTRY METHOD 06/05/2024 9:18 AM [facility] Blood Venous blood specimen / Unknown Venipuncture / Unknown 06/05/2024 6:55 AM EST 06/05/2024 8:41 AM EST Jasbir Morocho MD LAB BLOOD ORDERABLES Final R esult [facility] [address] [place] [address], * (ABNORMAL) Complete blood count (06/05/2024 6:55 AM EST) WBC 10.5 4.8 - 10.8 K/mcL LAB HEMETOLOGY METHOD 06/05/2024 8:59 AM [facility] RBC 4.10(L) 4.50 - 5.50 M/[facility] LAB HEMETOLOGY METHOD 06/05/2024 8:59 AM [facility] Hemoglobin 12.2(L) 13.5 - 17.5 g/dL LAB HEMETOLOGY METHOD 06/05/2024 8:59 AM [facility] Hematocrit 39.5(L) 42.0 - 54.0 % LAB HEMETOLOGY METHOD 06/05/2024 8:59 AM [facility] MCV 95.6 79.0 - 98.0 FL LAB HEMETOLOGY METHOD 06/05/2024 8:59 AM [facility] MCH 29.5 27.0 - 32.0 pcg LAB HEMETOLOGY METHOD 06/05/2024 8:59 AM [facility] LAB MCHC 30.9(L) 32.0 - 37.0 g/dL LAB HEMETOLOGY METHOD 06/05/2024 8:59 AM EST [facility] RDW 14.8 11.0 - 15.0 % LAB HEMETOLOGY METHOD 06/05/2024 8:59 AM EST [facility] Platelets 281 130 - 400 K/mcL LAB HEMETOLOGY METHOD 06/05/2024 8:59 AM [facility] LAB MPV 11.5(H) 7.0 - 11.0 FL LAB HEMETOLOGY METHOD 06/05/2024 8:59 AM EST [facility] NRBC 0.0 <1.0 % LAB HEMETOLOGY METHOD 06/05/2024 8:59 AM [facility] LAB NRBC Absolute 0.00 <0.10 K/mcL LAB HEMETOLOGY METHOD 06/05/2024 8:59 AM [facility] LAB Blood Venous blood specimen / Unknown Venipuncture / Unknown 06/05/2024 6:55 AM EST 06/05/2024 8:42 AM EST us Jasbir Morocho MD LAB BLOOD ORDERABLES Final R esult [facility] [address] [place] [address], documented in this encounter Visit Diagnoses Diagnosis Hepatic encephalopathy (CMS/HCC V24, CMS/HCC V28) Hepatic encephalopathy Essential (primary) hypertension Unspecified essential hypertension documented in this encounter Care Teams Regulatory Agency Director Relationship Specialty Start Date End Date Jasbir Morocho MD [address] [place] [address] PCP - General Family Medicine 05/22/24 documented as of this encounter
--- OUTSIDE RECORDS SUMMARY | 2025-05-05 22:54 | XMS_ITS | Encounter Summary ---
Author Organization [employer] Address [address] [place] [address] Care Team Providers Care Lollypop Machine Operator Name Role Phone Jasbir Morocho MD Primary Care Provider [phone] Encounter Details Date Type Department Care Team (Latest Contact Info) Description 05/28/[address] [facility] [address] [place] [address] Jasbir Morocho MD [address] [place] [address] Hepatic encephalopathy (CMS/HCC V24, CMS/HCC V28); Essential [...] LAB CHEMISTRY METHOD 05/29/2024 1:18 PM EST [facility] Potassium 4.9 3.5 - 5.5 mmol/L LAB CHEMISTRY METHOD 05/29/2024 1:18 PM EST [facility] Chloride 96 96 - 110 mmol/L LAB CHEMISTRY METHOD 05/29/2024 1:18 PM EST [facility] CO2 28 21 - 32 mmol/L LAB CHEMISTRY METHOD 05/29/2024 1:18 PM [facility] Anion Gap 10 3 - 11 LAB CHEMISTRY METHOD 05/29/2024 1:18 PM [facility] Glucose 122(H) 70 - 100 mg/dL LAB CHEMISTRY METHOD 05/29/2024 1:18 PM [facility] BUN 26(H) 5 - 25 mg/dL LAB CHEMISTRY METHOD 05/29/2024 1:18 PM [facility] Creatinine 1.61(H) 0.70 - 1.30 mg/dL LAB CHEMISTRY METHOD 05/29/2024 1:18 PM [facility] eGFR 48(L) >=60 mL/min/1. 73m2 LAB CHEMISTRY METHOD 05/29/2024 1:18 PM [facility] Comment:Calculation based on the Chronic Kidney Disease Epidemiology Collaboration (CKD-EPI) equation refit without adjustment for race. BUN/Creatinine Ratio 16.1 LAB CHEMISTRY METHOD 05/29/2024 1:18 PM [facility] Calcium 10.4 8.5 - 10.5 mg/dL LAB CHEMISTRY METHOD 05/29/2024 1:18 PM [facility] Blood Venous blood specimen / Unknown Venipuncture / Unknown 05/29/2024 7:56 AM EST 05/29/2024 11:51 AM EST us Jasbir Morocho MD LAB BLOOD ORDERABLES Final R esult [facility] [address] [place] [address], documented in this encounter Visit Diagnoses Diagnosis Hepatic encephalopathy (CMS/HCC V24, CMS/HCC V28) Hepatic encephalopathy Essential (primary) hypertension Unspecified essential hypertension documented in this encounter Care Teams Lollypop Machine Operator Relationship Specialty Start Date End Date Jasbir Morocho MD [address] [place] [address] PCP - General Family Medicine 05/22/24 documented as of this encounter
--- OUTSIDE RECORDS SUMMARY | 2025-05-05 22:54 | XMS_ITS | Clinical Summary ---
Author Organization [facility] Address [address] [place] [address] Phone Care Team Providers Care Insurance Claims Representative Name Role Phone Ortiz Deluca NP Primary Care Provider [phone] Allergies No known active allergies Medications risperiDONE [...] this topic Insurance Medicare Medicare Care Teams Insurance Claims Representative Relationship Specialty Start Date End Date Ortiz Deluca NP [address] [place], [place] [phone] PCP - General Nurse Practitioner 10/27/21
[2025-05-06 02:41] VITALS: BP 116/68; PULSE 94; RESP 16; TEMP 36.7; O2SAT 94
--- NOTE | 2025-05-06 03:14 | ED_ITS ---
HPI - Fall General Chief Complaint: Fall Stated Complaint: lowered to floor by snf staff Time Seen by Provider: 05/06/25 03:12 Source: patient and EMS Mode of arrival: EMS Limitations: no limitations History of Present Illness ED Provider: Ander BARNES HPI Narrative: Patient is a 65-year-old male with a history of alcohol dependency, gout, hypertension, COPD, and frequent falls, presenting to the ED for evaluation after he was attempting to transfer from his wheelchair to bed when he developed increasing pain and inability to bear weight on his left knee, causing him to lower himself to the ground without fall. The patient reports he fell down the stairs 3 weeks ago, at which time he was admitted to his facility. The patient reports he suffered an additional fall resulting in left knee strike, was seen at this facility, patient reports he can not recall if there was imaging performed of the knee. Chart review reveals patient had a CT of the knee performed on 04/28 which was negative for acute fracture. The patient reports today he may have struck the back of his head on the arm of his wheelchair when he lowered himself between his wheelchair and bed. Patient denies any injury to the left knee during today's fall. Related Data Home Medications ?Medication ?Instructions ?Recorded ?Confirmed cyclobenzaprine 10 mg tablet 10 mg PO TID PRN muscle s pasm 04/20/25 04/28/25 furosemide 20 mg tablet 20 mg PO DAILY 04/28/2508/21 nicotine 21 mg/24 hr daily 1 patch transdermal DAILY 1 06/28/24 04/28/25 transdermal patch Previous Rx's ?Medication ?Instructions ?Recorded blood-glucose meter (FreeStyle #1 ea 09/03/20 Lite Meter kit) lancets 28 gauge (FreeStyle #100 ea 02/02/21 Lancets) FreeStyle David 2 [place] (flash #1 ea 07/03/22 glucose scanning reader) FreeStyle David 2 Sensor (flash #1 ea 07/03/22 glucose sensor) acetaminophen 650 mg 650 mg PO Q12H PRN pain 30 d ays 04/17/24 tablet,extended release (Tylenol #60 tabs Arthritis Pain) amlodipine 5 mg tablet 5 mg PO DAILY #90 tabs 04/17 metoprolol tartrate 50 mg tablet 50 mg PO BID #180 tab s 09/11/24 apixaban 5 mg tablet (Eliquis) 5 mg PO BID #180 tabs 0 09/20/24 rosuvastatin 20 mg tablet 20 mg PO DAILY #90 tabs 09/25 09/18 metformin 850 mg tablet 850 mg PO DAILY #90 tabs albuterol sulfate 90 mcg/actuation 2 puff inhalation Q ID PRN Wheezing 02/12/25 aerosol inhaler #8.5 grams omeprazole 20 mg capsule,delayed 40 mg (2 x 20 mg) PO DAILY@0630 02/21/25 release #180 caps lisinopril 2.5 mg tablet 2.5 mg PO DAILY #90 tabs fluoxetine 40 mg capsule 40 mg PO DAILY #90 caps 02/25 01/18 oxycodone 5 mg tablet 5 mg PO Q6H PRN Pain, Severe (Pain 04/23/25 Scale 7-10) #30 tabs folic acid 1 mg tablet 1 mg PO DAILY #90 tabs 04/29 Allergies Allergy/AdvReac Type Severity Reaction Status Date / Time codeine AdvReac Mild Agitated Verified 05/05/25 22:25 Review of Systems Review of Systems: Yes all other systems are reviewed and are negative [facility] Past Medical History Medical History MJ (obstructive sleep apnea) CHF (congestive heart failure) Alcohol use disorder, severe, dependence CHF (congestive heart failure) Effusion, right knee Screen for STD (sexually transmitted disease) Left ankle swelling Hypomagnesemia Diarrhea Acute UTI Physical exam Nocturia Microhematuria Elevated serum creatinine Morbid obesity Increased ammonia level Weakness of both lower extremities Dermatitis, unspecified History of cardiac arrest (~05/2020) Nicotine dependence, cigarettes, uncomplicated Personal history of colonic polyps Hypoventilation associated with obesity syndrome Encephalopathy chronic CKD (chronic kidney disease) stage 3, GFR 30-59 ml/min Cirrhosis Diabetes Obesity (BMI 35.0-39.9 without comorbidity) Wernicke encephalopathy Obstructive sleep apnea (adult) (pediatric) Rib fractures CHF (congestive heart failure) Left atrial enlargement Persistent atrial fibrillation Depression Gout Arthritis Anxiety HTN (hypertension) Surgical History History of tracheostomy (~2019) History of bronchoscopy (~2019) History of colonoscopy (~2021) History of esophagogastroduodenoscopy (EGD) (~2021) History of cardioversion (~2020) S/P percutaneous endoscopic gastrostomy (PEG) tube placement (~2019) Family History Family History Father Lung cancer Mother No problems noted. Maternal Aunt History of heart attack Sister No problems noted. Brother Cancer of kidney Brother No problems noted. Brother No problems noted. Brother No problems noted. Brother No problems noted. Brother No problems noted. Other Substance use disorder Social History Social History Household Members: None Housing: House Do you presently have visiting nurse or other home services: No (pt refuses) Alcohol intake: current Alcohol intake frequency: 3 or more drinks per day Alcohol type: hard liquor Comment: pt refuses fall risk interventions and protocol Patient Tobacco Use Status: Current everyday Tobacco user Tobacco use type: Cigarette Cigarette Packs Per Day: 0.5 Cigarettes Per Day: 6 Years Smoked: 30+ e-Cigarette/Vaping Use: Never Used Advance Directives: Yes Advance Directives on File: Yes Advance Directives Date on File: 06/05/20 Do you have a plan to hurt others: No Plan service: Yes Current occupational status: unemployed Cognitive needs: No Hearing needs: No Vision needs: No Physical Exam Vital Signs: Vital Signs: Last Vital Signs Temp 98.1 F 05/06/25 02:41 Pulse 94 05/06/25 02:41 Resp 16 05/06/25 02:41 BP 116/68 05/06/25 02:41 Pulse Ox 94 05/06/25 02:41 O2 Del Method Room Air 05/06/25 02:41 BMI result Body Mass Index 36.9 CONSTITUTIONAL: The patient appears chronically ill, moderately unkempt, otherwise non-toxic, well nourished and in no acute distress. Vital signs as documented. HEAD: Atraumatic, normocephalic. EYES: EOMs grossly intact, pupils equal, conjunctiva clear, no exudate. ENT: Nares patent, no discharge. Airway patent, no audible stridor, visible mucosa is pink and moist without noted lesions. NECK: Trachea is midline, positive tenderness to palpation of the midline cervical spine, negative crepitus. Full nonpainful range of motion. No obvious masses or gross abnormalities. CHEST: Symmetric movement, normal appearance. LUNGS: LS present and CTAB, no w/r/r. Non-labored work of breathing. CARDIAC: Regular Rhythm, S1/S2 appreciated, no murmurs, rubs or gallops. ABDOMEN: Abdomen soft and non-tender x4 quadrants, no palpable masses or organomegaly. : Deferred. EXTREMITIES: There is old appearing ecchymosis noted to the anterior inferior l eft knee, no swelling, impaired range of motion, or open injury. Distal CSM is intact, 2+ DP/PT pulses noted. Normal tone, moves all extremities spontaneously without reported pain. No obvious acute injury or deformity noted. NEURO: Alert and oriented x3, CN II-XII appear grossly intact. Cerebellar Functioning grossly intact. No obvious sensory or motor deficits. Speech clear and appropriate. PSYCH: normal affect, appropriate eye contact, fluid speech, with appropriate response to questioning. No reported suicidality or homicidality. SKIN: Warm, dry, color appropriate, normal turgor. No rashes noted. Medical Decision Making Medical Decision Making MDM Narrative: 3:36 AM 05/06/2025 (Gilmar BARNES): Patient is a 65-year-old male with a history of alcohol dependency, gout, hypertension, COPD, and frequent falls, presenting to the ED for evaluation after he was attempting to transfer from his wheelchair to bed when he developed increasing pain and inability to bear weight on his left knee, causing him to lower himself to the ground without fall. The patient reports he fell down the stairs 3 weeks ago, at which time he was admitted to his facility. The patient reports he suffered an additional fall resulting in left knee strike, was seen at this facility, patient reports he can not recall if there was imaging performed of the knee. Chart review reveals patient had a CT of the knee performed on 04/28 which was negative for acute fracture. The patient reports today he may have struck the back of his head on the arm of his wheelchair when he lowered himself between his wheelchair and bed. Patient denies any injury to the left knee during today's fall. In the ED the patient has tenderness to the cervical midline, there is also old ecchymosis noted to the anterior inferior left knee, without impaired range of motion. Distal CSM is intact, 2+ DP/PT pulses noted. The patient is on Eliquis, due to reported head strike patient will be sent for CT head and neck, seeing as the patient had no injury to the left knee today, and had a unremarkable CT 1 week ago, there is no indication for repeat imaging of the knee today. 6:00 AM 05/06/2025 (Gilmar BARNES): The patient's CT head and neck are negative for acute intracranial pathology, no calvarial or cervical spine fracture. Patient will be discharged to his facility with plan for outpatient follow up with orthopedics as scheduled. Discharge Plan Discharge Clinical Impression: Fall Qualifiers: Encounter type: initial encounter Qualified Code(s): W19.XXXA - Unspecified fall, initial encounter Acute knee pain Qualifiers: Laterality: left Qualified Code(s): M25.562 - Pain in left knee Patient Disposition: Home, Self-Care Instructions: Fall Prevention (ED), Knee Pain (ED) Additional Instructions: Thank you for choosing [facility]'s Emergency Department for your care today. Thankfully your CT of your head and neck today showed no evidence of any acute injury as a result of your failed transfer/fall. At this time there is no i ndication for admission to the hospital or continued ED observation, and it is safe to discharge you home. You should take Tylenol 1000mg every 6 hours as needed for any additional pain. Please continue taking your other medications as directed. Please rest any injured areas, and apply ice for 20 minutes every hour. Please follow up with the orthopedic clinic for your ongoing knee complaints. Please also follow up with your primary care physician for re-evaluation, additional management of your symptoms, and continued preventative care. If you do not have a primary care physician, please call the [facility] at [phone] to establish a new primary care physician. While waiting to establish your new primary care physician, you can call our Walk[facility]in [facility] at [phone] for non-emergency needs. Please return to the emergency department if you develop a severe or sudden change in your symptoms, a fever over 100.4 that does not improve with Tylenol or Ibuprofen, recurrent vomiting, or any other new or worsening symptoms or concerns. Prescriptions: No Action (DME) blood-glucose meter [FreeStyle Lite Meter] Kit See Rx Instructions .ROUTE .MEDSUPPLY Qty: 1 0RF Rx Instructions: check sugar twice a day (DME) lancets [FreeStyle Lancets] 28 gauge misc See Rx Instructions .ROUTE .MEDSUPPLY Qty: 100 2RF Rx Instructions: check sugar twice a day (DME) FreeStyle David 2 [place] Misc See Rx Instructions .Route Qty: 1 0RF Rx Instructions: tid testing (DME) FreeStyle David 2 Sensor Kit See Rx Instructions .Route Qty: 1 3RF Rx Instructions: tid testing amlodipine 5 mg tablet 5 mg PO DAILY Qty: 90 1RF acetaminophen [Tylenol Arthritis Pain] 650 mg tablet extended release 650 mg PO Q12H PRN (Reason: pain) 30 Days Qty: 60 0RF metoprolol tartrate 50 mg tablet 50 mg PO BID Qty: 180 1RF Eliquis 5 mg tablet 5 mg PO BID Qty: 180 1RF rosuvastatin 20 mg tablet 20 mg PO DAILY Qty: 90 1RF Rx Instructions: increased dose metformin 850 mg tablet 850 mg PO DAILY Qty: 90 1RF albuterol sulfate 90 mcg/actuation HFA aerosol inhaler 2 puff inhalation QID PRN (Reason: Wheezing) Qty: 8.5 3RF omeprazole 20 mg capsule,delayed release(DR/EC) 40 mg PO DAILY@0630 Qty: 180 1RF lisinopril 2.5 mg tablet 2.5 mg PO DAILY Qty: 90 1RF fluoxetine 40 mg capsule 40 mg PO DAILY Qty: 90 0RF folic acid 1 mg tablet 1 mg PO DAILY Qty: 90 1RF cyclobenzaprine 10 mg tablet 10 mg PO TID PRN (Reason: muscle spasm) oxycodone 5 mg Tablet 5 mg PO Q6H PRN (Reason: Pain, Severe (Pain Scale 7-10)) Qty: 30 0RF Rx Instructions: Partial Fill upon patient request. nicotine 21 mg/24 hr Patch 24 Hour 1 patch TRANSDERMAL DAILY furosemide 20 mg tablet 20 mg PO DAILY Referrals: Ortiz Deluca, [facility]PERATIONS CONSULTANT[facility] [Primary Care Provider, Internal Medicine] Clinical Impression: Acute knee pain; Fall Print Language: Syriac
[2025-05-06 08:22] VITALS: BP 111/71; PULSE 82; RESP 16
[2025-05-06 09:46] VITALS: BP 111/71; PULSE 82; RESP 16; TEMP 36.7
== END 2025-05-06 09:47 | disposition skilled nursing facility (03) ==
PROVIDERS: Emergency Provider Emergency Medicine; PCP Nurse Practitioner Family
DX: M25.562 Pain in left knee (principal); R51.9 Headache, unspecified; M54.2 Cervicalgia; Z79.899 Other long term (current) drug therapy; F17.210 Nicotine dependence, cigarettes, uncomplicated
CPT/HCPCS: 70450; 72125; 99284

== ENCOUNTER → 2025-05-06 03:31 | Outpatient (BNV) | payer MEDICARE, OTHER, MEDICAID, SELFPAY | PROVIDERS: Emergency Provider Emergency Medicine; PCP Nurse Practitioner Family; Visit Provider Specialist | DX: M54.2 Cervicalgia (principal); Z04.3 Encounter for examination and observation following other accident | CPT/HCPCS: 70450; 72125 ==

== ENCOUNTER → 2025-06-25 23:39 | Outpatient (BNV) | payer MEDICARE, OTHER, SELFPAY | PROVIDERS: Admitting Provider Family Medicine; Emergency Provider Emergency Medicine; PCP Nurse Practitioner Family; Visit Provider Internal Medicine | DX: I48.91 Unspecified atrial fibrillation (principal) | CPT/HCPCS: 93010 ==

== ENCOUNTER → 2025-06-26 00:14 | Outpatient (BNV) | payer MEDICARE, OTHER, SELFPAY | PROVIDERS: Emergency Provider Emergency Medicine; PCP Nurse Practitioner Family; Visit Provider Radiology Diagnostic Radiology | DX: I95.9 Hypotension, unspecified (principal); R53.1 Weakness; M92.211 Osteochondrosis (juvenile) of carpal lunate [Kienbock], right hand; M79.641 Pain in right hand | CPT/HCPCS: 71046; 73110; 73130 ==

== ENCOUNTER → 2025-06-26 03:14 | Outpatient (BNV) | payer MEDICARE, OTHER, SELFPAY | PROVIDERS: Admitting Provider Family Medicine; Emergency Provider Emergency Medicine; PCP Nurse Practitioner Family; Visit Provider Family Medicine | DX: L03.113 Cellulitis of right upper limb (principal); N18.30 Chronic kidney disease, stage 3 unspecified; F10.139 Alcohol abuse with withdrawal, unspecified | CPT/HCPCS: 99222; 99499 ==